=== PATIENT | male | born 1970 | race Caucasian/White ===

== ENCOUNTER 2024-05-10 10:18 | Inpatient (IN) | payer MEDICAID, SELFPAY ==
[2024-05-10] VITALS (33 sets, daily range): BP systolic 144–226; BP diastolic 65–102; PULSE 80–104; RESP 12–84; TEMP 38.1–38.6; O2SAT 85–100; BMI 35.4
--- NOTE | 2024-05-10 10:43 | PC.NURSE ---
Patient to er via ems from home with c/o generalized weakness. Currently patient lethargic, gcs 14, patient has labored breathing at 28bpm, 02sats 84% on RA, Dr. Gonzalez at bedside, new orders received.
--- NOTE | 2024-05-10 10:53 | EKG_ITS ---
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
--- NOTE | 2024-05-10 11:05 | EDNOTE_ITS ---
ED General RME/HPI General Chief complaint: General Adult/Misc Complain Stated complaint: WEAKNESS Time Seen by Provider: 05/10/24 10:43 Arrival date/time: 05/10/24 10:18 RME / HPI RME / HPI narrative: This section includes all my notes and documentations, including HPI, PE, MDM, Procedure Notes, and PLAN. Navarro Gonzalez MD HPI: 54 year old male with history of CVA, HFpEF 55-60% 04/2024, CAD s/p stent, hypertension, CAROLYN, liver cirrhosis presents to the ED BIBA from home for evaluation of weakness today. Per medics report, family stated patient was found sleeping on the floor this morning. On their arrival noted patient to be saturating 84% on room air and placed on oxygen. No other complaints reported by . No fevers, cough, abdominal pain, vomiting, diarrhea, or urinary symptoms. ROS: Cannot obtain from the patient due to current clinical condition. Physical Exam: General: Obtunded. Eyes: Conjunctivae and lids clear. EOMI. PERRL. ENT: No nasal congestion. Neck: Supple. Heart: RRR. Lungs: Decreased air movement, with wheezing and Rales. Abdomen: Soft. Skin: Warm and dry. Neuro: Obtunded. I reviewed EMS notes. I reviewed all diagnostic test results. At this point, diagnoses include sepsis, cellulitis, elevated troponin, ZENY, and hypertensive emergency. I discussed the case with our hospitalist. About the presentation and exam and diagnostics and treatments here. And need of further care in the hospital. Will accept the patient. Navarro Gonzalez MD Related Data Home Medications ?Medication ?Instructions ?Recorded ?Confirmed atorvastatin 40 mg tablet 40 mg PO HS 10/22/23 05/12/24 hydrocodone 10 mg-acetaminophen 1 tab PO Q4H 10/22/23 01/14/24 325 mg tablet ipratropium 20 mcg-albuterol 100 2 puff inhalation Q8HR PRN 10/22/23 05/12/24 mcg/actuation mist for inhalation Shortness Of Breath (Combivent Respimat) lorazepam 2 mg tablet 2 mg PO BID 10/22/23 05/12/24 losartan 100 mg tablet 100 mg PO DAILY 10/22/23 05/12/24 metoprolol succinate 100 mg 100 mg PO DAILY 10/22/23 05/12/24 tablet,extended release 24 hr pregabalin 150 mg capsule 150 mg PO TID 10/22/23 05/12/24 semaglutide 2 mg/dose (8 mg/3 mL) 2 mg subcut QWEEK 10/22/23 01/14/24 subcutaneous pen injector (Ozempic) morphine 15 mg tablet,extended 15 mg PO QDAY PRN Pain 01/14/24 05/12/24 release hydrocodone 10 mg-acetaminophen 1 tab PO 6 TIMES DAILY PRN Pain 05/11/24 05/11/24 325 mg tablet (Scale Score 7-10) hydrocodone 10 mg-acetaminophen tab 05/11/24 325 mg tablet spironolactone 50 mg tablet 50 mg PO BID 05/12/24 05/12/24 Previous Rx's ?Medication ?Instructions ?Recorded flash glucose scanning reader #1 ea 10/26/23 (FreeStyle Liana 2 [place]) flash glucose sensor (FreeStyle #1 ea 10/26/23 Liana 2 Sensor kit) insulin glargine 100 unit/mL 50 unit (0.5 mL) subcut BID #10 mL 10/26/23 subcutaneous solution (Lantus U-100 Insulin) sennosides 8.6 mg tablet (senna) 8.6 mg PO BID PRN constipation #30 10/26/23 tabs bumetanide 1 mg tablet 1 mg PO BID 30 days #7 tabs 01/17/24 insulin aspart U-100 100 unit/mL 1 sliding scale dose subcut 01/17/24 subcutaneous solution (Novolog USEASDIRECTD #10 mL U-100 Insulin aspart) metoclopramide HCl 5 mg tablet 5 mg PO Q6H gastroparesis 30 days 01/17/24 #120 tabs apixaban 5 mg tablet 5 mg PO BID 1 month #60 tabs 04/27/24 menthol 0.44 %-zinc oxide 20.6 % 1 applic topical QID PRN skin 04/27/24 topical ointment (Calmoseptine) irritation #113 grams Allergies Allergy/AdvReac Type Severity Reaction Status Date / Time ketorolac Allergy Severe TONGUE Verified 07/26/23 22:55 SWELLS UP Review of Systems Review of Systems Systems Reviewed: All systems reviewed, normal except as documented Past Medical History Past Medical History NEUROLOGIC: Positive Neurological Disorders, Cerebrovascular Accident, Transient Ischemic Attacks (TIA) and Willis's Palsy CARDIAC: Positive Cardiac Disorders, Myocardial Infarction, Coronary Artery Disease, Atherosclerotic Heart Disease, Hypercholesterolemia, Congestive Heart Failure, Deep Vein Thrombosis and Hypertension RESPIRATORY: Positive Asthma and Pulmonary Embolism GASTROINTESTINAL: Positive Gastrointestinal Disorders and Obesity GENITOURINARY: Positive Genitourinary Disorders and Kidney Stones MUSCULOSKELETAL: Positive Musculoskeletal Disorders and Degenerative Disk Disease ENDOCRINE: Positive Endocrine Disorders and Diabetes Mellitus Type 2 PSYCHO/SOCIAL: Positive Anxiety OTHER HISTORY: Positive Falls, Blood Transfusions, Blood Transfusion Reaction and Chicken Pox Family History FAMILY HISTORY: Positive Family Respiratory Disorders and Family Cardiac Disorders Surgical History SURGICAL: Positive Cardiac Surgery, Coronary Stent and Carotid Endarterectomy Social History SMOKING STATUS: Current every day smoker SECOND HAND EXPOSURE: No ([id number] x 4 yrs) SUBSTANCE USE: does not use ED Exam Narrative Physical exam: As noted in HPI Course Quality Measures Current suspected stage: sepsis Possible source: unknown Blood cultures ordered: completed in ED Antibiotic ordered: Yes Pertinent labs: 05/10/24 11:15 Lactic Acid 0.9 mMol/L (0.4-2.0) Procalcitonin 12.01 H ng/ml (0.0-0.49) sepsis Orders Category Date Time Status Bedside COVID-19 Antigen Test NOW Care 05/10/24 11:25 Completed Bedside COVID-19 Antigen Test NOW Care 05/10/24 11:32 Completed Bedside Influenza A&B Antigen Test NOW Care 05/10/24 11:25 Completed Bedside Influenza A&B Antigen Test NOW Care 05/10/24 11:32 Completed BiPAP / CPAP NOW Care 05/10/24 11:[address] Screening NOW Care 05/10/24 11:23 Completed Manager Brand Q4H START 00 Care 05/10/24 10:53 Completed EKG (ED ONLY) *Do not use* NOW Care 05/10/24 10:53 Completed Saline [Insert IV] NOW Care 05/10/24 11:13 Active Straight [In and Out Catheter] X1 Care 05/10/24 11:13 Completed Urinary Catheter NOW Care 05/10/24 16:[address] abdomen pelvis w con Stat Exams 05/10/24 11:[address] angio chest Stat Exams 05/10/24 11:[address] head/brain wo con Stat Exams 05/10/24 11:23 Completed EKG (ED Only) Stat Exams 05/10/24 10:53 Draft US gall bladder Stat Exams 05/10/24 16:08 Completed XR chest 1V portable Stat Exams 05/10/24 11:22 Completed ABG [Arterial Blood Gas] Stat Lab 05/10/24 12:26 Completed Ammonia Stat Lab 05/10/24 11:50 Completed BNP [B-Type Natriuretic Peptide] Stat Lab 05/10/24 11:15 Completed BNP [B-Type Natriuretic Peptide] Stat Lab 05/10/24 16:53 Completed Blood Culture (Lab) Stat Lab 05/10/24 11:50 Results CBC Stat Lab 05/10/24 11:15 Completed CMP [Comprehensive Metabolic Panel] Stat Lab 05/10/24 11:15 Completed CRP [C-Reactive Protein] Stat Lab 05/10/24 11:15 Completed Creatine Kinase Stat Lab 05/10/24 11:15 Completed D-Dimer Stat Lab 05/10/24 11:15 Completed Drug Screen,Urine Stat Lab 05/10/24 11:58 Completed ESR [Sed Rate (ESR)] Stat Lab 05/10/24 11:15 Completed Lactate (Lactic Acid) Stat Lab 05/10/24 11:15 Completed Magnesium Stat Lab 05/10/24 11:15 Completed Procalcitonin Stat Lab 05/10/24 11:15 Completed RSV [Respiratory Syncytial Virus Ag] Stat Lab 05/10/24 13:20 Completed Troponin I Stat Lab 05/10/24 11:15 Completed Troponin I Stat Lab 05/10/24 16:53 Completed UA [Urinalysis] Stat Lab 05/10/24 11:58 Completed Acetaminophen Ivpb [Ofirmev Inj] Med 05/10/24 12:06 Discontinued 1,000 mg in 100 ml IV X1 Acetaminophen Supp [Tylenol Supp] Med 05/10/24 11:13 Discontinued 650 mg NE X1 ONE Albuterol/Ipratr Rt Radha [Duoneb Rt Radha] Med 05/10/24 11:17 Discontinued 6 ml INH X1 ONE Furosemide Inj [Lasix Inj] Med 05/10/24 16:48 Discontinued 40 mg IVP X1 ONE Furosemide Inj [Lasix Inj] Med 05/10/24 16:09 Discontinued 80 mg IVP X1 ONE Furosemide Inj [Lasix Inj] Med 05/10/24 16:50 Discontinued 80 mg IVP X1 ONE Ketorolac Inj [Toradol Inj] Med 05/10/24 11:13 Discontinued 15 mg IVP X1 ONE Labetalol IV [Trandate IV] Med 05/10/24 16:16 Discontinued 20 mg IVP X1 ONE Magnesium Sulfate 2 GM Ivpb [Magnesium Sulfate Ivpb] Med 05/10/24 11:17 Discontinued 2 gm in 50 ml IV X1 Magnesium Sulfate 2 GM Ivpb [Magnesium Sulfate Ivpb] Med 05/10/24 12:30 Discontinued 2 gm in 50 ml IV X1 MethylPREDNISolone.* [SoluMEDROL Inj] Med 05/10/24 11:17 Discontinued 125 mg IVP X1 ONE Nicardipine/Ns 20Mg Ivpb [Cardene Ivpb] Med 05/10/24 13:35 Discontinued 20 mg in 200 ml IV 5 mg/hr Nitroglycerin Oint 2% [Nitro-paste Oint 2%] Med 05/10/24 12:15 Discontinued 2 inch TOP X1 ONE Sodium Chloride 0.9% 1000 ml [Ns] 1,000 ml Med 05/10/24 11:14 Discontinued IV 999 mls/hr cefTRIAXone/D5w 1gm IV premix [Rocephin/D5w 1gm IV Med 05/10/24 11:15 Discontinued premix] 50 ml IV X1 hydrALAZINE INJ [Apresoline Inj] Med 05/10/24 12:15 Discontinued 10 mg IV X1 ONE hydrALAZINE INJ [Apresoline Inj] Med 05/10/24 16:16 Discontinued 10 mg IV X1 ONE Oxygen Delivery NOW RT 05/10/24 10:53 Active Vital Signs Vital signs: Vital Signs Temperature 100.8 F H 05/10/24 10:50 Pulse Rate 100 05/10/24 10:50 Respiratory Rate 28 H 05/10/24 10:50 Blood Pressure 180/102 H 05/10/24 10:50 Pulse Oximetry (%) 100 05/10/24 10:50 Oxygen Delivery Method Oxy Mask 05/10/24 10:50 Oxygen Flow Rate 10 05/10/24 10:[address] [facility] Patient data External records reviewed:: [facility] previous records (I reviewed admission from through 04/28/2024) and EMS form Clinical information provided by:: patient and EMS Social determinants that could affect healthcare access:: none Patient has the following chronic illnesses:: CVA, HFpEF 55-60% 04/2024, CAD s/p stent, hypertension, CAROLYN, liver cirrhosis How is presenting disease/condition affected by chronic disease/condition?: e xacerbated by Evaluation data The following diagnostics were reviewed and interpreted by me:: EKG tracing(s) (My interpretation of the EKG is: Sinus rhythm (96 bpm) with nonspecific ST-T changes. Navarro Gonzalez MD) Lab and/or radiology exams considered but not ordered:: None Interpretation Summary: Ordering Physician: Navarro Gonzalez MD Date of Service: 05/10/24 Procedure(s): XR chest 1V portable Accession Number(s): [id number] cc: Navarro Gonzalez MD; Julio Beebe MD; NO PRIMARY/FAMILY,PHYSICIAN~ Examination: AP chest single view Technique one AP portable semiupright chest single view Exam date and time: May 10, 2024 1141 hours Comparison April 24, 2024 INDICATIONS: Shortness of breath today. FINDINGS: Mild to moderate CHF Mild to moderate enlargement cardiac contour Prominent vascular congestion with perihilar basilar edema IMPRESSION: Mild to moderate CHF Dictated By: Julio Beebe MD Signed By: <Electronically signed by Julio Beebe MD in OV> 05/10/24 1158 ===== Ordering Physician: Navarro Gonzalez MD Date of Service: 05/10/24 Procedure(s): CT abdomen pelvis w con Accession Number(s): [id number] cc: Navarro Gonzalez MD; Julio Beebe MD; NO PRIMARY/FAMILY,PHYSICIAN~ Examination: CT abdomen with intravenous contrast CT pelvis with intravenous contrast 2-D coronal reconstructions 2-D sagittal reconstructions Date and time of exam:May 10, 2024 1519 hours INDICATIONS: Onset abdominal pain today. CTDI: vol (mGy) 27.2 DLP: (mGycm) 1718 Technique: Multiple axial sections of the abdomen and pelvis have been obtained. 64 slice high-resolution scanner used. 3 mm axial sections have been obtained, post intravenous injection 60 cc Isovue-300 2-D sagittal coronal reconstructions Low dose protocols, adjustment MA KV according to patient size, iterative reconstruction techniques FINDINGS: There are no focal liver lesions or biliary tract dilatation, liver is mildly irregular in contour Gallbladder wall appears mildly thickened Spleen is not enlarged No pancreatic mass No renal or ureteral calculi, no hydronephrosis Aorta normal size No pericecal inflammatory change No bowel obstruction or diverticulitis Urinary bladder intact Severe osteopenia Extensive air density in the soft tissue left groin extending into the anterior and lateral left thigh, clinical correlation advised Mild anasarca IMPRESSION: Recommend hepatobiliary sonography follow-up to exclude cholecystitis Suspect primary hepatocellular disease, mild anasarca No renal or ureteral calculi, no hydronephrosis No CT findings of appendicitis bowel obstruction or diverticulitis Extensive air densities in the soft tissue left groin extending into the anterior and lateral upper thigh, clinical correlation advised Dictated By: Julio Beebe MD Signed By: <Electronically signed by Julio Beebe MD in OV> 05/10/24 1604 = ==== Ordering Physician: Navarro Gonzalez MD Date of Service: 05/10/24 Procedure(s): CT angio chest Accession Number(s): [id number] cc: Navarro Gonzalez MD; Julio Beebe MD; NO PRIMARY/FAMILY,PHYSICIAN~ Examination: CTA chest with intravenous contrast 2-D reconstructions 3-D reconstructions, vascular Date and time of exam: May 10, 2024 at 1519 hours INDICATIONS: Onset shortness of breath chest pain today, clinical diagnosis pulmonary embolus CTDI: vol (mGy) 18.7 DLP: (mGycm) 750 Technique: Multiple axial sections of the thorax have been obtained. 3 mm slice thickness, from below the hemidiaphragms to above the apices of the lungs. Mediastinal and lung density settings have been obtained. 2-D sagittal and coronal reconstructions. 3-D angiographic renderings, 3-D volume renderings, 3D post processing, vascular maximum intensity projections obtained. Contrast administered is 60 cc Isovue-300. Low dose protocols were performed. One or more of the following dose reduction techniques were used; automated exposure control, adjustment of the mA and/or KV according to patient size, use of iterative reconstruction technique. Findings: 27 mm left thyroid nodule No thoracic aortic aneurysm dilatation Main pulmonary artery segment measures 39 mm Pulmonary artery opacification is not optimal No mediastinal lymphadenopathy Soft areas of parenchymal opacity throughout both lungs consistent with pneumonia Mild to moderate enlargement cardiac contour Pericardial effusion measuring up to 13 mm Prominent vascular congestion Small right minimal left pleural fluid No visualized liver or splenic lesion Gallbladder wall appears mildly thickened No pancreatic mass IMPRESSION: 27 mm left thyroid nodule, recommend thyroid sonography follow-up Pulmonary artery opacification is quite poor, in part related to the reduced contrast dose, no gross pulmonary artery emboli Mild CHF Recommend hepatobiliary sonography to exclude cholecystitis Dictated By: Julio Beebe MD Signed By: <Electronically signed by Julio Beebe MD in OV> 05/10/24 1558 ===== Ordering Physician: Navarro Gonzalez MD Date of Service: 05/10/24 Procedure(s): CT head/brain wo [facility] Accession Number(s): [id number] cc: Navarro Gonzalez MD; Julio Beebe MD; NO PRIMARY/FAMILY,PHYSICIAN~ Examination: CT brain head without contrast. 2-D sagittal coronal reconstructions Date and time of exam:May 10, 2024 1512 hours Comparison July 20, 2023 INDICATIONS: Altered mental status today CTDI: vol (mGy):87.3 DLP: (mGycm):1813 Technique: Multiple CT axial sections of the brain have been obtained, 5 mm slice thickness. Contrast has not been administered. 2-D sagittal, coronal reconstructions have been obtained Low dose protocols were performed. One or more of the following dose reduction techniques were used; automated exposure control, adjustment of the mA and/or KV according to patient size, use of iterative reconstruction technique. Findings: No significant ventricular enlargement. Intra-axial or extra-axial hemorrhage density is not seen. No mass effect or midline shift Basal cisterns are not remarkable. Fourth ventricle is midline. Cranial vault intact. Impression: Negative for acute hemorrhage, mass effect or midline shift Clinical correlation advised and follow-up accordingly Dictated By: Julio Beebe MD Signed By: <Electronically signed by Julio Beebe MD in OV> 05/10/24 1552 ===== Medications Medications considered but not ordered:: None Medication administrations:: Medication Administration History Acetaminophen (Acetaminophen 325 Mg Tablet) 650 mg PO Q6H PRN PRN Reason: Fever >100.3 or pain(1-3) Stop: 06/09/24 17:37 Last Admin: 05/14/24 11:53 Dose: 650 mg Documented By: HAYLEE Hydrocodone Bitart/Acetaminophen (Hydrocodone/Apap 10/325 Tab) 1 tab PO Q6HR PRN PRN Reason: Pain (Scale Score 4-6) Stop: 05/19/24 12:00 Last Admin: 05/15/24 18:00 Dose: 1 tab Documented By: Admin: 05/15/24 06:01 Dose: 1 tab Documented By: Admin: 05/14/24 20:25 Dose: 1 tab Documented By: Admin: 05/14/24 14:05 Dose: 1 tab Documented By: HAYLEE Amlodipine Besylate (Amlodipine Besylate 5 Mg Tablet) 5 mg PO QDAY [facility] Stop: 06/11/24 08:59 Last Admin: 05/15/24 09:14 Dose: 5 mg Documented By: Admin: 05/14/24 08:06 Dose: 5 mg Documented By: Admin: 05/13/24 08:56 Dose: 5 mg Documented By: Admin: 05/12/24 10:02 Dose: 5 mg Documented By: YAEL Apixaban (Apixaban 2.5 Mg Tablet) 5 mg PO BID [facility] Stop: 06/01/24 13:59 Last Admin: 05/15/24 21:56 Dose: 5 mg Documented By: Admin: 05/15/24 09:59 Dose: 5 mg Documented By: Admin: 05/14/24 21:24 Dose: 5 mg Documented By: Admin: 05/14/24 08:05 Dose: 5 mg Documented By: Admin: 05/13/24 21:20 Dose: 5 mg Documented By: Admin: 05/13/24 08:56 Dose: 5 mg Documented By: Admin: 05/12/24 21:40 Dose: 5 mg Documented By: Admin: 05/12/24 10:08 Dose: Not Given Documented By: YAEL Non-Admin Reason: Patient Refused Admin: 05/11/24 21:30 Dose: 5 mg Documented By: Admin: 05/11/24 13:57 Dose: 5 mg Documented By: MGD Atorvastatin Calcium (Atorvastatin Calcium 20 Mg Tablet) 40 mg PO HS RINA Stop: 06/11/24 20:59 Last Admin: 05/15/24 21:56 Dose: 40 mg Documented By: Admin: 05/14/24 21:24 Dose: 40 mg Documented By: Admin: 05/13/24 21:21 Dose: 40 mg Documented By: Admin: 05/12/24 21:41 Dose: 40 mg Documented By: ALENA Bumetanide (Bumetanide Inj 0.25 Mg/Ml Vial 4 Ml) 2 mg IVP BID RINA Stop: 06/11/24 14:59 Last Admin: 05/14/24 09:46 Dose: 2 mg Documented By: Admin: 05/13/24 08:56 Dose: 2 mg Documented By: Admin: 05/12/24 23:15 Dose: 2 mg Documented By: ALENA Comments: pt required new IV and wAS a hardstick Admin: 05/12/24 15:33 Dose: 2 mg Documented By: YAEL Dextrose (Dextrose 50%-Water Inj 50 Ml Syringe) 25 ml IV Q15MIN PRN PRN Reason: BG 50-70 responsive npo pt Stop: 06/09/24 19:29 Last Admin: 05/15/24 22:15 Dose: 25 ml Documented By: TRINI Dextrose (Dextrose 50%-Water Inj 50 Ml Syringe) 50 ml IV Q15MIN PRN PRN Reason: BG <50 OR BG <70 & pt unresponsive Stop: 06/09/24 19:29 Glucagon (Glucagon Inj 1 Mg Vial) 1 mg IM Q15MIN PRN PRN Reason: BG <70, and no IV access Hydralazine HCl (Hydralazine Inj 20 Mg/Ml Vial) 10 mg IV Q6H PRN PRN Reason: High blood pressure Stop: 06/09/24 19:10 Last Admin: 05/12/24 11:54 Dose: 10 mg Documented By: Admin: 05/11/24 05:52 Dose: 10 mg Documented By: ZJulito Piperacillin/Tazobactam/Dextrose (Zosyn) 50 mls @ 12.5 mls/hr IV Q8HR RINA; Protocol Stop: 05/21/24 13:59 Last Admin: 05/15/24 21:57 Dose: 12.5 mls/hr Documented By: Infusion: 05/15/24 17:16 Dose: Infused Documented By: Admin: 05/15/24 13:16 Dose: 12.5 mls/hr Documented By: Infusion: 05/15/24 09:45 Dose: Infused Documented By: Admin: 05/15/24 05:45 Dose: 12.5 mls/hr Documented By: Infusion: 05/15/24 02:52 Dose: Infused Documented By: Admin: 05/14/24 22:52 Dose: 12.5 mls/hr Documented By: Infusion: 05/14/24 18:05 Dose: Infused Documented By: Admin: 05/14/24 14:05 Dose: 12.5 mls/hr Documented By: BA Bumetanide 20 mg/ IV (Miscellaneous Supplies) 80 mls @ 8 mls/hr IV .Q10H RINA Stop: 05/16/24 09:59 Last Admin: 05/15/24 17:26 Dose: 2 mg/hr, 8 mls/hr Documented By: Infusion: 05/15/24 17:26 Dose: Infused Documented By: Admin: 05/15/24 09:11 Dose: 2 mg/hr, 8 mls/hr Documented By: Infusion: 05/15/24 07:18 Dose: Infused Documented By: Admin: 05/14/24 21:18 Dose: 2 mg/hr, 8 mls/hr Documented By: Infusion: 05/14/24 20:49 Dose: Infused Documented By: Admin: 05/14/24 10:49 Dose: 2 mg/hr, 8 mls/hr Documented By: JESSIE Insulin Glargine (Insulin Glargine (Lantus) 5 Unit/0.05 Ml (Per 5 Units)) 80 unit SC HS RINA Stop: 06/14/24 20:59 Last Admin: 05/15/24 21:59 Dose: Not Given Documented By: TRINI Non-Admin Reason: Blood sugar 60 Insulin Human Lispro (Insulin Lispro (Admelog) 1 Unit/0.01 Ml Unit) 0 unit SC AC RINA; Protocol Stop: 06/12/24 08:59 Last Admin: 05/15/24 17:31 Dose: Not Given Documented By: HAYLEE Non-Admin Reason: Per Protocol Admin: 05/15/24 11:52 Dose: 4 unit Documented By: HAYLEE Co-signed By: Admin: 05/15/24 08:14 Dose: 10 unit Documented By: HAYLEE Co-signed By: MILAN Admin: 05/14/24 17:22 Dose: 8 unit Documented By: HAYLEE Co-signed By: SP Admin: 05/14/24 11:53 Dose: 4 unit Documented By: HAYLEE Co-signed By: TEJAL Admin: 05/14/24 08:00 Dose: 4 unit Documented By: JESSIE Co-signed By: JHONY Admin: 05/13/24 17:32 Dose: 4 unit Documented By: JESSIE Co-signed By: JORGE Admin: 05/13/24 11:38 Dose: Not Given Documented By: JESSIE Non-Admin Reason: Per Protocol Admin: 05/13/24 09:08 Dose: 4 unit Documented By: JESSIE Co-signed By: JHONY Insulin Human Lispro (Insulin Lispro (Admelog) 1 Unit/0.01 Ml Unit) 12 unit SC AC RINA Stop: 06/14/24 11:29 Last Admin: 05/15/24 18:08 Dose: Not Given Documented By: HAYLEE Non-Admin Reason: Other, see note Comments: ok to hold per for bg of 75 Admin: 05/15/24 11:52 Dose: 12 unit Documented By: HAYLEE Co-signed By: Metoprolol Succinate (Metoprolol Succinate Xl 25 Mg Tabcr) 100 mg PO QDAY [facility] Stop: 06/09/24 18:59 Last Admin: 05/15/24 09:13 Dose: 100 mg Documented By: Admin: 05/14/24 08:06 Dose: 100 mg Documented By: Admin: 05/13/24 08:55 Dose: 100 mg Documented By: Admin: 05/12/24 08:12 Dose: 100 mg Documented By: Admin: 05/11/24 11:06 Dose: 100 mg Documented By: GENA Comments: administered late pt in OR for procedure Admin: 05/10/24 19:29 Dose: Not Given Documented By: SF Non-Admin Reason: NPO Morphine Sulfate (Morphine Sulf Inj 10 Mg/Ml Vial) 3 mg IVP Q8HR PRN PRN Reason: Pain 7-10 Stop: 05/16/24 12:22 Last Admin: 05/15/24 23:09 Dose: 3 mg Documented By: Admin: 05/15/24 03:35 Dose: 3 mg Documented By: Admin: 05/14/24 17:22 Dose: 3 mg Documented By: HAYLEE Ondansetron HCl (Ondansetron Inj 2 Mg/Ml Inj 2 Ml) 4 mg IV Q6H PRN; Protocol PRN Reason: NAUSEA OR VOMITING Stop: 06/09/24 17:37 Pharmacy Consult (Vancomycin Pharmacy To Dose 1 Each Each) 1 each IV QDAY PRN PRN Reason: PROTOCOL Stop: 06/11/24 11:19 Pregabalin (Pregabalin 75 Mg Capsule) 150 mg PO TID [facility] Stop: 06/11/24 21:59 Last Admin: 05/15/24 22:27 Dose: 150 mg Documented By: Admin: 05/15/24 13:15 Dose: 150 mg Documented By: Admin: 05/15/24 05:45 Dose: 150 mg Documented By: Admin: 05/14/24 21:33 Dose: 150 mg Documented By: Admin: 05/14/24 14:05 Dose: 150 mg Documented By: Admin: 05/14/24 05:32 Dose: 150 mg Documented By: Admin: 05/13/24 21:22 Dose: 150 mg Documented By: Admin: 05/13/24 13:31 Dose: 150 mg Documented By: Admin: 05/13/24 05:36 Dose: 150 mg Documented By: Admin: 05/12/24 21:43 Dose: 150 mg Documented By: ALENA Sennosides (Senna Tablet) 1 tab PO QDAY RINA; Protocol Stop: 06/12/24 14:44 Last Admin: 05/15/24 09:14 Dose: 1 tab Documented By: Admin: 05/14/24 08:06 Dose: 1 tab Documented By: Admin: 05/13/24 15:31 Dose: 1 tab Documented By: DA Discontinued Medications Acetaminophen (Acetaminophen Supp 650 Mg Supp) 650 mg NE X1 ONE Stop: 05/10/24 11:14 Last Admin: 05/10/24 12:44 Dose: Not Given Documented By: EF Non-Admin Reason: Cancelled by Provider Acetaminophen (Acetaminophen 325 Mg Tablet) 650 mg PO Q6H PRN PRN Reason: Fever >100.3 or pain Stop: 06/09/24 17:37 Acetaminophen (Acetaminophen Supp 650 Mg Supp) 650 mg NE Q6HR PRN; Protocol PRN Reason: Fever > 100.3 Stop: 06/09/24 19:14 Hydrocodone Bitart/Acetaminophen (Hydrocodone/Apap 5/325 Tablet) 1 tab PO Q4HR PRN PRN Reason: PAIN SCALE 4-10(Mod-Sev Stop: 05/16/24 11:26 Hydrocodone Bitart/Acetaminophen (Hydrocodone/Apap 5/325 Tablet) 1 tab PO Q4HR PRN PRN Reason: PAIN SCALE 4-6 (Moderate Stop: 05/16/24 11:26 Hydrocodone Bitart/Acetaminophen (Hydrocodone/Apap 5/325 Tablet) 1 tab PO X1 ONE Stop: 05/11/24 21:07 Last Admin: 05/11/24 21:30 Dose: 1 tab Documented By: ELHAM Hydrocodone Bitart/Acetaminophen (Hydrocodone/Apap 5/325 Tablet) 1 tab PO X1 ONE Stop: 05/12/24 04:21 Last Admin: 05/12/24 04:37 Dose: 1 tab Documented By: ELHAM Hydrocodone Bitart/Acetaminophen (Hydrocodone/Apap 5/325 Tablet) 1 tab PO X1 ONE Stop: 05/13/24 21:02 Last Admin: 05/13/24 21:21 Dose: 1 tab Documented By: ALENA Hydrocodone Bitart/Acetaminophen (Hydrocodone/Apap 10/325 Tab) 1 tab PO 6 TIMES DAILY PRN PRN Reason: Pain (Scale Score 4-6) Stop: 05/19/24 12:00 Albuterol/Ipratropium (Albuterol/Ipratropium (Duoneb) Rt Radha 3 Ml Nebu) 6 ml INH X1 ONE Stop: 05/10/24 11:18 Last Admin: 05/10/24 12:36 Dose: 6 ml Documented By: GLYNN Dextrose (Dextrose 50%-Water Inj 50 Ml Syringe) 25 ml IV Q15MIN PRN PRN Reason: BG 50-70 responsive npo pt Stop: 06/09/24 19:01 Dextrose (Dextrose 50%-Water Inj 50 Ml Syringe) 50 ml IV Q15MIN PRN PRN Reason: BG <50 OR BG <70 & pt unresponsive Stop: 06/09/24 19:01 Esmolol HCl (Esmolol Inj 10 Mg/Ml Vial 10 Ml) Confirm Administered Dose 100 mg .ROUTE .STK-MED ONE Stop: 05/11/24 12:20 Fentanyl Citrate (Fentanyl Cit Inj 50 Mcg/Ml Amp 2ml) Confirm Administered Dose 100 mcg .ROUTE .STK-MED ONE Stop: 05/11/24 08:41 Fentanyl Citrate (Fentanyl Cit Inj 50 Mcg/Ml Amp 2ml) Confirm Administered Dose 100 mcg .ROUTE .STK-MED ONE Stop: 05/11/24 09:13 Fentanyl Citrate (Fentanyl Cit Inj 50 Mcg/Ml Amp 2ml) 50 mcg IV Q5MIN PRN PRN Reason: PAIN SCALE 4-10(Mod-Sev Stop: 05/11/24 11:29 Furosemide (Furosemide Inj 10 Mg/Ml 4ml Vial) 80 mg IVP X1 ONE Stop: 05/10/24 16:10 Last Admin: 05/10/24 17:29 Dose: Not Given Documented By: SHEREE Non-Admin Reason: Cancelled by Provider Furosemide (Furosemide Inj 10 Mg/Ml 4ml Vial) 40 mg IVP X1 ONE Stop: 05/10/24 16:49 Last Admin: 05/10/24 16:54 Dose: Not Given Documented By: SHEREE Non-Admin Reason: Cancelled by Provider Furosemide (Furosemide Inj 10 Mg/Ml 4ml Vial) 80 mg IVP X1 ONE Stop: 05/10/24 16:51 Last Admin: 05/10/24 17:12 Dose: 80 mg Documented By: SHEREE Glucagon (Glucagon Inj 1 Mg Vial) 1 mg IM Q15MIN PRN PRN Reason: BG <70, and no IV access Hydralazine HCl (Hydralazine Inj 20 Mg/Ml Vial) 10 mg IV X1 ONE Stop: 05/10/24 12:16 Last Admin: 05/10/24 12:27 Dose: 10 mg Documented By: EF Hydralazine HCl (Hydralazine Inj 20 Mg/Ml Vial) 10 mg IV X1 ONE Stop: 05/10/24 16:17 Last Admin: 05/10/24 17:11 Dose: 10 mg Documented By: SHEREE Hydralazine HCl (Hydralazine Inj 20 Mg/Ml Vial) 10 mg IV X1 ONE Stop: 05/10/24 19:01 Last Admin: 05/10/24 19:26 Dose: 10 mg Documented By: WES Sodium Chloride (Ns) 1,000 mls @ 999 mls/hr IV .Q1H1M ONE Stop: 05/10/24 12:14 Last Infusion: 05/10/24 12:30 Dose: Infused Documented By: Admin: 05/10/24 11:30 Dose: 999 mls/hr Documented By: EF Ceftriaxone Sodium/Dextrose (Rocephin/D5w 1gm Iv Premix) 50 mls @ 100 mls/hr IV X1 ONE Stop: 05/10/24 11:44 Last Infusion: 05/10/24 12:32 Dose: Infused Documented By: Admin: 05/10/24 11:45 Dose: 100 mls/hr Documented By: EF Magnesium Sulfate (Magnesium Sulfate Ivpb) 2 gm in 50 mls @ 25 mls/hr IV X1 ONE Stop: 05/10/24 13:16 Last Admin: 05/10/24 14:07 Dose: Not Given Documented By: MARCIE Non-Admin Reason: Duplicate Medication on eMAR Acetaminophen (Ofirmev Inj) 1,000 mg in 100 mls @ 250 mls/hr IV X1 ONE Stop: 05/10/24 12:29 Last Infusion: 05/10/24 13:14 Dose: Infused Documented By: Admin: 05/10/24 12:43 Dose: 250 mls/hr Documented By: EF Magnesium Sulfate (Magnesium Sulfate Ivpb) 2 gm in 50 mls @ 25 mls/hr IV X1 ONE Stop: 05/10/24 14:29 Last Infusion: 05/10/24 14:40 Dose: Infused Documented By: Admin: 05/10/24 12:37 Dose: 25 mls/hr Documented By: EF Nicardipine/Sodium Chloride (Cardene Ivpb) 20 mg in 200 mls @ 50 mls/hr IV .Q4H PRN; Protocol PRN Reason: PER PROTOCOL Stop: 06/09/24 13:34 Last Titration: 05/10/24 16:19 Dose: 0 mg/hr, 0 mls/hr Documented By: Titration: 05/10/24 16:13 Dose: 15 mg/hr, 150 mls/hr Documented By: Titration: 05/10/24 15:58 Dose: 15 mg/hr, 150 mls/hr Documented By: Admin: 05/10/24 15:43 Dose: 15 mg/hr, 150 mls/hr Documented By: Titration: 05/10/24 15:28 Dose: Infused Documented By: Titration: 05/10/24 15:13 Dose: 15 mg/hr, 150 mls/hr Documented By: Titration: 05/10/24 14:58 Dose: 15 mg/hr, 150 mls/hr Documented By: Titration: 05/10/24 14:43 Dose: 15 mg/hr, 150 mls/hr Documented By: Titration: 05/10/24 14:28 Dose: 15 mg/hr, 150 mls/hr Documented By: Titration: 05/10/24 14:23 Dose: 15 mg/hr, 150 mls/hr Documented By: Titration: 05/10/24 14:18 Dose: 12.5 mg/hr, 125 mls/hr Documented By: Titration: 05/10/24 14:13 Dose: 10 mg/hr, 100 mls/hr Documented By: Titration: 05/10/24 14:07 Dose: 7.5 mg/hr, 75 mls/hr Documented By: Admin: 05/10/24 14:02 Dose: 5 mg/hr, 50 mls/hr Documented By: BC Piperacillin/Tazobactam/Dextrose (Zosyn) 50 mls @ 12.5 mls/hr IV Q8HR [facility] Stop: 05/17/24 21:59 Last Admin: 05/14/24 05:32 Dose: 12.5 mls/hr Documented By: Infusion: 05/14/24 01:22 Dose: Infused Documented By: Admin: 05/13/24 21:22 Dose: 12.5 mls/hr Documented By: Infusion: 05/13/24 17:31 Dose: Infused Documented By: Admin: 05/13/24 13:31 Dose: 12.5 mls/hr Documented By: Infusion: 05/13/24 09:40 Dose: Infused Documented By: Admin: 05/13/24 05:40 Dose: 12.5 mls/hr Documented By: Infusion: 05/13/24 03:19 Dose: Infused Documented By: Admin: 05/12/24 23:19 Dose: 12.5 mls/hr Documented By: ALENA Comments: pt required new IV and wAS a hardstick Infusion: 05/12/24 19:01 Dose: Infused Documented By: Admin: 05/12/24 15:01 Dose: 12.5 mls/hr Documented By: Infusion: 05/12/24 09:05 Dose: Infused Documented By: Admin: 05/12/24 05:05 Dose: 12.5 mls/hr Documented By: Infusion: 05/12/24 01:32 Dose: Infused Documented By: Admin: 05/11/24 21:32 Dose: 12.5 mls/hr Documented By: Infusion: 05/11/24 17:57 Dose: Infused Documented By: Admin: 05/11/24 13:57 Dose: 12.5 mls/hr Documented By: Infusion: 05/11/24 09:00 Dose: Infused Documented By: Admin: 05/11/24 05:00 Dose: 12.5 mls/hr Documented By: Admin: 05/10/24 21:31 Dose: Not Given Documented By: SF Non-Admin Reason: See IV Spreadsheet Piperacillin/Tazobactam/Dextrose (Zosyn) 50 mls @ 100 mls/hr IV X1 ONE Stop: 05/10/24 18:59 Last Infusion: 05/10/24 19:23 Dose: Infused Documented By: Admin: 05/10/24 18:51 Dose: 100 mls/hr Documented By: EF Vancomycin/Sodium Chloride (Vancomycin/Ns 1 Gm Ivpb) 200 mls @ 120 mls/hr IV 1000,2200 RINA Stop: 05/17/24 18:29 Last Infusion: 05/10/24 21:53 Dose: Infused Documented By: Admin: 05/10/24 19:26 Dose: 120 mls/hr Documented By: WES Promethazine HCl 12.5 mg/ (Sodium Chloride) 50.5 mls @ 2.5 mls/min IV X1 PRN PRN Reason: NAUSEA OR VOMITING Sodium Chloride (Ns) 1,000 mls @ 999 mls/hr IV .Q1H1M ONE Stop: 05/12/24 09:32 Last Admin: 05/12/24 10:02 Dose: 999 mls/hr Documented By: YAEL Vancomycin/Sodium Chloride (Vancomycin/Ns 1 Gm Ivpb) 200 mls @ 120 mls/hr IV Q12H [facility]; Protocol Stop: 05/19/24 21:59 Last Infusion: 05/13/24 22:00 Dose: 0 mls/hr Documented By: Admin: 05/13/24 21:25 Dose: 120 mls/hr Documented By: Infusion: 05/13/24 12:15 Dose: Infused Documented By: Admin: 05/13/24 10:34 Dose: 120 mls/hr Documented By: Infusion: 05/13/24 01:01 Dose: Infused Documented By: Admin: 05/12/24 23:20 Dose: 120 mls/hr Documented By: ALENA Comments: pt required new IV and wAS a hardstick Vancomycin HCl/Dextrose (Vancomycin/D5w 1,250 Mg Ivpb) 250 mls @ 120 mls/hr IV X1 ONE Stop: 05/12/24 13:34 Last Admin: 05/12/24 11:54 Dose: 120 mls/hr Documented By: YAEL Bumetanide 20 mg/ IV (Miscellaneous Supplies) 80 mls @ 8 mls/hr IV .Q10H ONE Stop: 05/13/24 21:16 Last Admin: 05/13/24 12:26 Dose: 2 mg/hr, 8 mls/hr Documented By: JESSIE Insulin Glargine (Insulin Glargine (Lantus) 5 Unit/0.05 Ml (Per 5 Units)) 25 unit SC QDAY RINA Stop: 06/10/24 08:59 Last Admin: 05/11/24 11:05 Dose: 25 unit Documented By: GENA Co-signed By: IS Insulin Glargine (Insulin Glargine (Lantus) 5 Unit/0.05 Ml (Per 5 Units)) 40 unit SC QDAY [facility] Stop: 06/11/24 08:59 Last Admin: 05/12/24 08:13 Dose: 40 unit Documented By: YAEL Co-signed By: SARAHI Insulin Glargine (Insulin Glargine (Lantus) 5 Unit/0.05 Ml (Per 5 Units)) 50 unit SC QDAY [facility] Stop: 06/11/24 11:29 Insulin Glargine (Insulin Glargine (Lantus) 5 Unit/0.05 Ml (Per 5 Units)) 10 unit SC X1 ONE Stop: 05/12/24 11:22 Last Admin: 05/12/24 11:37 Dose: 10 unit Documented By: YAEL Co-signed By: DA Insulin Glargine (Insulin Glargine (Lantus) 5 Unit/0.05 Ml (Per 5 Units)) 50 unit SC QDAY [facility] Stop: 06/12/24 09:29 Insulin Glargine (Insulin Glargine (Lantus) 5 Unit/0.05 Ml (Per 5 Units)) 70 unit SC [facility] Stop: 06/12/24 20:59 Last Admin: 05/13/24 21:21 Dose: 70 unit Documented By: CMC Co-signed By: BR Insulin Glargine (Insulin Glargine (Lantus) 5 Unit/0.05 Ml (Per 5 Units)) 72 unit SC [facility] Stop: 06/13/24 20:59 Last Admin: 05/14/24 21:41 Dose: 72 unit Documented By: CCT Co-signed By: CP Insulin Human Lispro (Insulin Lispro (Admelog) 1 Unit/0.01 Ml Unit) 0 unit SC [facility]; Protocol Stop: 06/09/24 20:59 Last Admin: 05/12/24 08:13 Dose: 10 unit Documented By: YAEL Co-signed By: SARAHI Admin: 05/11/24 21:42 Dose: 10 unit Documented By: ELHAM Co-signed By: Admin: 05/11/24 17:05 Dose: 10 unit Documented By: NOVA Co-signed By: JORGE Admin: 05/11/24 12:30 Dose: 8 unit Documented By: NOVA Co-signed By: JORGE Admin: 05/11/24 07:41 Dose: 10 unit Documented By: NOVA Co-signed By: MELONY Admin: 05/10/24 21:31 Dose: 10 unit Documented By: WES Co-signed By: GISELE Insulin Human Lispro (Insulin Lispro (Admelog) 1 Unit/0.01 Ml Unit) 0 unit SC [facility]; Protocol Stop: 06/09/24 20:59 Last Admin: 05/13/24 11:00 Dose: Not Given Documented By: JESSIE Non-Admin Reason: Discontinued Admin: 05/12/24 21:41 Dose: 8 unit Documented By: ALENA Co-signed By: LITO Admin: 05/12/24 17:44 Dose: 10 unit Documented By: YAEL Co-signed By: JORGE Admin: 05/12/24 11:38 Dose: 16 unit Documented By: YAEL Co-signed By: JESSIE Insulin Human Lispro (Insulin Lispro (Admelog) 1 Unit/0.01 Ml Unit) 7 unit SC AC RINA Stop: 06/12/24 11:29 Last Admin: 05/14/24 08:14 Dose: Not Given Documented By: JESSIE Non-Admin Reason: Discontinued Admin: 05/13/24 17:32 Dose: 7 unit Documented By: JESSIE Co-signed By: JORGE Admin: 05/13/24 11:38 Dose: Not Given Documented By: JESSIE Non-Admin Reason: Per Protocol Insulin Human Lispro (Insulin Lispro (Admelog) 1 Unit/0.01 Ml Unit) 0 unit SC AC [facility]; Protocol Stop: 06/12/24 11:29 Insulin Human Lispro (Insulin Lispro (Admelog) 1 Unit/0.01 Ml Unit) 8 unit SC AC RINA Stop: 06/13/24 11:29 Last Admin: 05/15/24 08:15 Dose: 8 unit Documented By: HAYLEE Co-signed By: MILAN Admin: 05/14/24 17:22 Dose: 8 unit Documented By: HAYLEE Co-signed By: SP Admin: 05/14/24 11:47 Dose: Not Given Documented By: HAYLEE Non-Admin Reason: Other, see note Comments: Per Dr. Kerwin nelson to hold for bg 132 Insulin Human Regular (Insulin Hum Regular 1 Unit/0.01 Ml (Per Unit)) 0 unit SC ACHS RINA; Protocol Stop: 06/09/24 20:59 Ketorolac Tromethamine (Ketorolac Inj 30 Mg/Ml Vial) 15 mg IVP X1 ONE Stop: 05/10/24 11:14 Last Admin: 05/10/24 11:29 Dose: Not Given Documented By: EF Non-Admin Reason: Allergy Labetalol HCl (Labetalol Inj 5 Mg/Ml Vial 20 Ml) 20 mg IVP X1 ONE Stop: 05/10/24 16:17 Last Admin: 05/10/24 17:11 Dose: 20 mg Documented By: KM Labetalol HCl (Labetalol Inj 5 Mg/Ml Vial 20 Ml) 10 mg IVP Q6H PRN PRN Reason: High blood pressure Stop: 06/09/24 19:10 Last Admin: 05/10/24 21:58 Dose: 10 mg Documented By: SF Labetalol HCl (Labetalol Inj 5 Mg/Ml Vial 20 Ml) 10 mg IVP X1 ONE Stop: 05/10/24 22:53 Last Admin: 05/10/24 23:02 Dose: 10 mg Documented By: ZP Labetalol HCl (Labetalol Inj 5 Mg/Ml Vial 20 Ml) Confirm Administered Dose 100 mg .ROUTE .STK-MED ONE Stop: 05/11/24 09:25 Lidocaine HCl (Lidocaine Inj Pf 2% 5 Ml Vial) Confirm Administered Dose 5 ml .ROUTE .STK-MED ONE Stop: 05/11/24 08:41 Methylprednisolone Sodium Succinate (Methylprednisolone Sod Succ 62.5 Mg/Ml 2ml Vial) 125 mg IVP X1 ONE Stop: 05/10/24 11:18 Last Admin: 05/10/24 11:46 Dose: 125 mg Documented By: EF Metoclopramide HCl (Metoclopramide Inj 5 Mg/Ml Vial 2 Ml) Confirm Administered Dose 10 mg .ROUTE .STK-MED ONE Stop: 05/11/24 09:06 Metoprolol Tartrate (Metoprolol Tartrate Inj 1 Mg/Ml Amp 5 Ml) 1 mg IVP Q5MIN PRN PRN Reason: TACHYCARDIA Stop: 05/11/24 11:30 Midazolam HCl (Midazolam Inj 1 Mg/Ml Vial 2 Ml) Confirm Administered Dose 2 mg .ROUTE .STK-MED ONE Stop: 05/11/24 08:41 Midazolam HCl (Midazolam Inj 1 Mg/Ml Vial 2 Ml) 1 mg IV Q5MIN PRN PRN Reason: ANXIETY Stop: 05/12/24 09:27 Morphine Sulfate (Morphine Sulf Inj 10 Mg/Ml Vial) 1 mg IV Q4HR PRN PRN Reason: PAIN SCALE 7-10 (Severe Stop: 05/16/24 12:06 Morphine Sulfate (Morphine Sulf Inj 10 Mg/Ml Vial) 2 mg IVP X1 ONE Stop: 05/11/24 12:15 Last Admin: 05/11/24 12:29 Dose: 2 mg Documented By: NOVA Morphine Sulfate (Morphine Sulf Inj 10 Mg/Ml Vial) 4 mg IVP Q8HR PRN PRN Reason: abdominal pain Stop: 05/16/24 12:22 Last Admin: 05/14/24 08:05 Dose: 4 mg Documented By: Admin: 05/13/24 22:47 Dose: 4 mg Documented By: Admin: 05/13/24 14:17 Dose: 4 mg Documented By: Admin: 05/13/24 01:55 Dose: 4 mg Documented By: Admin: 05/12/24 17:36 Dose: 4 mg Documented By: Admin: 05/12/24 07:47 Dose: 4 mg Documented By: Admin: 05/11/24 23:45 Dose: 4 mg Documented By: Admin: 05/11/24 15:44 Dose: 4 mg Documented By: NOVA Morphine Sulfate (Morphine Sulf 15 Mg Tabcr) 15 mg PO X1 ONE Stop: 05/11/24 14:16 Last Admin: 05/11/24 14:44 Dose: 15 mg Documented By: NOVA Morphine Sulfate (Morphine Sulf Inj 10 Mg/Ml Vial) 3 mg IVP Q8HR PRN PRN Reason: abdominal pain Stop: 05/16/24 12:22 Morphine Sulfate (Morphine Sulf Inj 10 Mg/Ml Vial) 5 mg IV X1 ONE Stop: 05/15/24 09:04 Last Admin: 05/15/24 09:11 Dose: 5 mg Documented By: HAYLEE Nifedipine (Nifedipine Xl 30 Mg Tabcr) 30 mg PO X1 ONE Stop: 05/11/24 04:43 Last Admin: 05/11/24 04:53 Dose: 30 mg Documented By: REZA Nitroglycerin (Nitroglycerin Oint 2% 1 Inch Packet) 2 inch TOP X1 ONE Stop: 05/10/24 12:16 Last Admin: 05/10/24 12:46 Dose: 2 inch Documented By: GABRIELA Ondansetron HCl (Ondansetron Inj 2 Mg/Ml Inj 2 Ml) Confirm Administered Dose 4 mg .ROUTE .STK-MED ONE Stop: 05/11/24 09:13 Pharmacy Consult (Vancomycin Pharmacy To Dose 1 Each Each) 1 each IV QDAY PRN PRN Reason: PROTOCOL Stop: 06/09/24 18:29 Phenylephrine HCl (Phenylephrine Inj 10 Mg/Ml Vial) Confirm Administered Dose 10 mg .ROUTE .STK-MED ONE Stop: 05/11/24 08:41 Potassium Chloride (Potassium Chloride 20 Meq Tabcr) 40 meq PO X1 ONE Stop: 05/15/24 08:18 Last Admin: 05/15/24 09:59 Dose: 40 meq Documented By: BA Propofol (Propofol Inj 10 Mg/Ml Vial 20 Ml) Confirm Administered Dose 400 mg IV .STK-MED ONE Stop: 05/11/24 08:41 Succinylcholine Chloride (Succinylcholine Inj 20 Mg/Ml Vial 10 Ml) Confirm Administered Dose 200 mg .ROUTE .STK-MED ONE Stop: 05/11/24 09:06 See above Consultations Consultation(s) initiated? (list below): Yes Consultation #1 (Physician, Specialty, Details): I spoke with enterostomal therapy nurse Dr. Sheffield. Discussed patients PMHx, HPI, ED course, exam findings, labs, and radiology results. Advised changing medications and if blood pressure improves can be admitted to the floors. Time: 16:15 Consultation #2 (Physician, Specialty, Details): I spoke with resident Dr. Sparrow working with Dr. Whitfield. Discussed patients PMHx, HPI, ED course, exam findings, labs, and radiology results. The hospitalist agree to accept the patient for admission. Time: 16:35 Diagnosis Differential Diagnosis ED Complaint MDM: Hypertensive emergency, hypertensive urgency, sepsis, pneumonia Most likely diagnosis given after review of the tests above:: Acute respiratory failure with hypoxia Altered mental status Sepsis Groin abscess Admission Indicated Admission indicated?: indicated Explain why admission is indicated or not indicated:: Further evaluation and treatment Admission Request Was there a request for admission?: Yes Admission Attestation Admission request attestation: Discussed case with [] from Hospitalist service regarding admission. Discussed patients ED course, exam findings, labs, and radiology results. The Hospitalist [agrees,declines] to accept the patient for admission. Disposition Plan Disposition Plan: Admit Medical Decision Making Differential Diagnosis Differential Diagnosis: Hypertensive emergency, hypertensive urgency, sepsis, pneumonia Lab Data 05/15/24 05:02 05/15/24 05:02 Labs: Lab Results 05/10/24 05/10/24 05/10/24 Range/Units 11:15 11:50 11:58 WBC 21.8 H (3.8-10.6) Thou/mm3 RBC 3.52 L (4.50-5.90) Miln/mm3 Hgb 9.1 L (13.5-16.0) g/dL Hct 28.5 L (41.0-53.0) % MCV 81 (80-100) fL MCH 25.9 (25.0-35.0) pg MCHC 31.9 (31.0-37.0) g/dl RDW Std Deviation 46.1 H (35.1-43.9) fL Plt Count 203 (140-440) Thou/mm3 Neut % (Auto) 89 H (37-80) % Lymph % (Auto) 2 L (10-50) % [place] % (Auto) 8 (0-12) % Eos % (Auto) 0 (0-10) % Baso % (Auto) 0 (0-2.5) % Neut # (Auto) 19.4 H (1.8-7.7) Thou/mm3 Lymph # (Auto) 0.4 L (1.0-4.8) Thou/mm3 [place] # (Auto) 1.8 H (0.0-0.8) Thou/mm3 Eos # (Auto) 0.0 (0.0-0.5) Thou/mm3 Baso # (Auto) 0.0 (0.0-0.2) Thou/mm3 Immature Gran # (Auto) 0.15 H (0.00-0.00) Thou/mm3 Absolute Nucleated RBC 0.00 (0.00-0.00) Thou/mm3 Immature Gran % 1 H (0-0) % Nucleated RBC % 0 (0) /100 WBC ESR 103 H (0-20) mm/hr D-Dimer 1350 H (<600) ng/mL Puncture Site ABG pH (7.35-7.45) ABG pCO2 (32.0-48.0) mmHg ABG pO2 (83-108) mmHg ABG HCO3 (20-26) mEq/L ABG O2 Saturation (91-98) % ABG Base Excess (-3-3) FiO2 % Sodium 132 L (136-145) mMol/L Potassium 3.7 (3.4-5.1) mMol/L Chloride 102 (98-107) mMol/L Carbon Dioxide 21.6 (20.0-31.0) mMol/L Anion Gap 8 (7-16) BUN 31 H (9-23) mg/dL Creatinine 1.4 H (0.6-1.3) mg/dL Estim Creat Clear Calc 71.6 (>60) mL/min eGFR 59 L (60 - ) See Note BUN/Creatinine Ratio 22 H (12-20) Ratio Glucose 369 H (74-106) mg/dL Calculated Osmolality 286 (275-295) Lactic Acid 0.9 (0.4-2.0) mMol/L Calcium 8.7 (8.3-10.6) mg/dL Corrected Calcium 9.2 (8.5-10.1) mg/dL Magnesium 1.6 (1.6-2.6) mg/dL Total Bilirubin 0.3 (0.3-1.2) mg/dL AST 40 H (0-34) U/L ALT 20 (10-49) U/L Alkaline Phosphatase 156 H (46-116) U/L Ammonia 16 (11-32) uMol/L Total Creatine Kinase 284 H (34-171) U/L Troponin I 0.103 H* (0.0-0.045) ng/mL C-Reactive Prot, Quant 26.2 H (0.0-0.9) mg/dL B-Natriuretic Peptide 1667 H* (0-100) pg/mL Total Protein 6.4 (5.7-8.2) gm/dL Albumin 3.4 L (3.5-5.0) gm/dL Globulin 3.0 (2.3-3.5) gm/dL Albumin/Globulin Ratio 1.1 L (1.2-2.2) Procalcitonin 12.01 H (0.0-0.49) ng/ml Ur Collection Type Clean Catch Urine Color Yellow (Lt Yel-Yel) Urine Clarity Clear (Clear/Hazy) Urine pH 6.5 (5.0-7.0) Ur Specific [place] 1.025 (1.001-1.035) Urine Protein 3+ A (Neg - Trace) Urine Glucose (UA) 4+ A (Negative) Urine Ketones 1+ A (Negative) Urine Blood 3+ A (Negative) Urine Nitrite Negative (Negative) Urine Bilirubin Negative (Negative) Urine Urobilinogen (Auto) Negative (0.0-1.0) mg/dL Ur Leukocyte Esterase Negative (Negative) Urine RBC 34 H (0-3) /hpf Urine WBC 5 (0-5) /hpf Ur Squamous Epith Cells 1 (0-5) /hpf Urine Bacteria None (None) Hyaline Casts < 1 (0-1) /hpf Granular Casts 1 (0-1) /hpf Urine Opiates Screen Positive A (Negative) Urine Fentanyl Screen Negative (Negative) Ur Barbiturates Screen Negative (Negative) U Amphetamin/Meth Scrn Negative (Negative) U Benzodiazepines Scrn Negative (Negative) U Cocaine Metab Screen Negative (Negative) U Marijuana (THC) Screen Positive A (Negative) RSV Rapid (Negative) 05/10/24 05/10/24 05/10/24 Range/Units 12:26 13:20 16:53 WBC (3.8-10.6) Thou/mm3 RBC (4.50-5.90) Miln/mm3 Hgb (13.5-16.0) g/dL Hct (41.0-53.0) % MCV (80-100) fL MCH (25.0-35.0) pg MCHC (31.0-37.0) g/dl RDW Std Deviation (35.1-43.9) fL Plt Count (140-440) Thou/mm3 Neut % (Auto) (37-80) % Lymph % (Auto) (10-50) % [place] % (Auto) (0-12) % Eos % (Auto) (0-10) % Baso % (Auto) (0-2.5) % Neut # (Auto) (1.8-7.7) Thou/mm3 Lymph # (Auto) (1.0-4.8) Thou/mm3 [place] # (Auto) (0.0-0.8) Thou/mm3 Eos # (Auto) (0.0-0.5) Thou/mm3 Baso # (Auto) (0.0-0.2) Thou/mm3 Immature Gran # (Auto) (0.00-0.00) Thou/mm3 Absolute Nucleated RBC (0.00-0.00) Thou/mm3 Immature Gran % (0-0) % Nucleated RBC % (0) /100 WBC ESR (0-20) mm/hr D-Dimer (<600) ng/mL Puncture Site Left Radial ABG pH 7.34 L (7.35-7.45) ABG pCO2 43 (32.0-48.0) mmHg ABG pO2 127 H (83-108) mmHg ABG HCO3 23 (20-26) mEq/L ABG O2 Saturation 100 H (91-98) % ABG Base Excess -2 (-3-3) FiO2 30 % Sodium (136-145) mMol/L Potassium (3.4-5.1) mMol/L Chloride (98-107) mMol/L Carbon Dioxide (20.0-31.0) mMol/L Anion Gap (7-16) BUN (9-23) mg/dL Creatinine (0.6-1.3) mg/dL Estim Creat Clear Calc (>60) mL/min eGFR (60 - ) See Note BUN/Creatinine Ratio (12-20) Ratio Glucose (74-106) mg/dL Calculated Osmolality (275-295) Lactic Acid (0.4-2.0) mMol/L Calcium (8.3-10.6) mg/dL Corrected Calcium (8.5-10.1) mg/dL Magnesium (1.6-2.6) mg/dL Total Bilirubin (0.3-1.2) mg/dL AST (0-34) U/L ALT (10-49) U/L Alkaline Phosphatase (46-116) U/L Ammonia (11-32) uMol/L Total Creatine Kinase Cancelled (34-171) U/L Troponin I 0.095 H* (0.0-0.045) ng/mL C-Reactive Prot, Quant (0.0-0.9) mg/dL B-Natriuretic Peptide 2201 H* (0-100) pg/mL Total Protein (5.7-8.2) gm/dL Albumin (3.5-5.0) gm/dL Globulin (2.3-3.5) gm/dL Albumin/Globulin Ratio (1.2-2.2) Procalcitonin (0.0-0.49) ng/ml Ur Collection Type Urine Color (Lt Yel-Yel) Urine Clarity (Clear/Hazy) Urine pH (5.0-7.0) Ur Specific [place] (1.001-1.035) Urine Protein (Neg - Trace) Urine Glucose (UA) (Negative) Urine Ketones (Negative) Urine Blood (Negative) Urine Nitrite (Negative) Urine Bilirubin (Negative) Urine Urobilinogen (Auto) (0.0-1.0) mg/dL Ur Leukocyte Esterase (Negative) Urine RBC (0-3) /hpf Urine WBC (0-5) /hpf Ur Squamous Epith Cells (0-5) /hpf Urine Bacteria (None) Hyaline Casts (0-1) /hpf Granular Casts (0-1) /hpf Urine Opiates Screen (Negative) Urine Fentanyl Screen (Negative) Ur Barbiturates Screen (Negative) U Amphetamin/Meth Scrn (Negative) U Benzodiazepines Scrn (Negative) U Cocaine Metab Screen (Negative) U Marijuana (THC) Screen (Negative) RSV Rapid Negative (Negative) Critical Care Time Critical Care Time Critical Care Time: Yes Total Critical Care Time (min.): 35 Attestation: The high probability of sudden, clinically significant deterioration in the patient's condition required the highest level of my preparedness to intervene urgently. The services I provided to this patient were to treat and/or prevent clinically significant deterioration. Services included the following: chart data review, reviewing nursing notes and/or old charts, documentation time, financial consultant collaboration regarding findings and treatment options, medication orders and management, direct patient care, vital sign assessments and ordering, interpreting and reviewing diagnostic studies and lab tests. Aggregate critical care time includes only time during which I was engaged in work directly related to the patient's care, as described above, whether at bedside or elsewhere in the Emergency Department. It did not include time spent performing other reported procedures or the services of residents, students, nurses or physician assistants. Discharge Plan Plan Patient Disposition: Admit Acute Care w/in Hospital Problem List Clinical Impression: Acute respiratory failure with hypoxia, Sepsis, Altered mental status, Abscess, groin Patient/Caregiver Discharge Instructions Other Activity Instructions:: Wound care: Left groin soft tissue infection: cleanse with wound cleanser, pat dry, fill wound bed with black foam. Skin prep and drape. Trac pad at 125mmhg continous suction. Change Mon, Wed, Fri and PRN for suction off greater than 2 hours
--- NOTE | 2024-05-10 11:22 | XR_ITS ---
Examination: AP chest single view Technique one AP portable semiupright chest single view Exam date and time: May 10, 2024 1141 hours Comparison April 24, 2024 INDICATIONS: Shortness of breath today. FINDINGS: Mild to moderate CHF Mild to moderate enlargement cardiac contour Prominent vascular congestion with perihilar basilar edema IMPRESSION: Mild to moderate CHF
--- NOTE | 2024-05-10 11:23 | XR_ITS ---
Examination: CT brain head without contrast. 2-D sagittal coronal reconstructions Date and time of exam:May 10, 2024 1512 hours Comparison July 20, 2023 INDICATIONS: Altered mental status today CTDI: vol (mGy):87.3 DLP: (mGycm):1813 Technique: Multiple CT axial sections of the brain have been obtained, 5 mm slice thickness. Contrast has not been administered. 2-D sagittal, coronal reconstructions have been obtained Low dose protocols were performed. One or more of the following dose reduction techniques were used; automated exposure control, adjustment of the mA and/or KV according to patient size, use of iterative reconstruction technique. Findings: No significant ventricular enlargement. Intra-axial or extra-axial hemorrhage density is not seen. No mass effect or midline shift Basal cisterns are not remarkable. Fourth ventricle is midline. Cranial vault intact. Impression: Negative for acute hemorrhage, mass effect or midline shift Clinical correlation advised and follow-up accordingly
--- NOTE | 2024-05-10 11:23 | XR_ITS ---
Examination: CTA chest with intravenous contrast 2-D reconstructions 3-D reconstructions, vascular Date and time of exam: May 10, 2024 at 1519 hours INDICATIONS: Onset shortness of breath chest pain today, clinical diagnosis pulmonary embolus CTDI: vol (mGy) 18.7 DLP: (mGycm) 750 Technique: Multiple axial sections of the thorax have been obtained. 3 mm slice thickness, from below the hemidiaphragms to above the apices of the lungs. Mediastinal and lung density settings have been obtained. 2-D sagittal and coronal reconstructions. 3-D angiographic renderings, 3-D volume renderings, 3D post processing, vascular maximum intensity projections obtained. Contrast administered is 60 cc Isovue-300. Low dose protocols were performed. One or more of the following dose reduction techniques were used; automated exposure control, adjustment of the mA and/or KV according to patient size, use of iterative reconstruction technique. Findings: 27 mm left thyroid nodule No thoracic aortic aneurysm dilatation Main pulmonary artery segment measures 39 mm Pulmonary artery opacification is not optimal No mediastinal lymphadenopathy Soft areas of parenchymal opacity throughout both lungs consistent with pneumonia Mild to moderate enlargement cardiac contour Pericardial effusion measuring up to 13 mm Prominent vascular congestion Small right minimal left pleural fluid No visualized liver or splenic lesion Gallbladder wall appears mildly thickened No pancreatic mass IMPRESSION: 27 mm left thyroid nodule, recommend thyroid sonography follow-up Pulmonary artery opacification is quite poor, in part related to the reduced contrast dose, no gross pulmonary artery emboli Mild CHF Recommend hepatobiliary sonography to exclude cholecystitis
--- NOTE | 2024-05-10 11:23 | XR_ITS ---
Examination: CT abdomen with intravenous contrast CT pelvis with intravenous contrast 2-D coronal reconstructions 2-D sagittal reconstructions Date and time of exam:May 10, 2024 1519 hours INDICATIONS: Onset abdominal pain today. CTDI: vol (mGy) 27.2 DLP: (mGycm) 1718 Technique: Multiple axial sections of the abdomen and pelvis have been obtained. 64 slice high-resolution scanner used. 3 mm axial sections have been obtained, post intravenous injection 60 cc Isovue-300 2-D sagittal coronal reconstructions Low dose protocols, adjustment MA KV according to patient size, iterative reconstruction techniques FINDINGS: There are no focal liver lesions or biliary tract dilatation, liver is mildly irregular in contour Gallbladder wall appears mildly thickened Spleen is not enlarged No pancreatic mass No renal or ureteral calculi, no hydronephrosis Aorta normal size No pericecal inflammatory change No bowel obstruction or diverticulitis Urinary bladder intact Severe osteopenia Extensive air density in the soft tissue left groin extending into the anterior and lateral left thigh, clinical correlation advised Mild anasarca IMPRESSION: Recommend hepatobiliary sonography follow-up to exclude cholecystitis Suspect primary hepatocellular disease, mild anasarca No renal or ureteral calculi, no hydronephrosis No CT findings of appendicitis bowel obstruction or diverticulitis Extensive air densities in the soft tissue left groin extending into the anterior and lateral upper thigh, clinical correlation advised
[2024-05-10] MEDS: SODIUM CHLORIDE 0.9% 1000 ML 1,000 ML 999 ML IV (11:30)
[2024-05-10] MEDS: cefTRIAXone/D5w 1gm IV premix 50 ML IV (11:45)
[2024-05-10] MEDS: MethylPREDNISolone SOD SUCC 62.5 MG/ML 2ML VIAL 125 MG IVP (11:46)
[2024-05-10 11:52] LABS: Lactate (Lactic Acid) 0.9 mMol/L (0.4-2.0)
[2024-05-10 11:55] LABS: Basophils % (Auto) 0 % (0-2.5); Eosinophils % (Auto) 0 % (0-10); Hematocrit 28.5 % (41.0-53.0); Hemoglobin 9.1 g/dL (13.5-16.0); Immature Granulocytes % (Auto) 1 % (0-0); Immature Granulocytes Auto 0.15 Thou/mm3 (0.00-0.00); Lymphocytes # (Auto) 0.4 Thou/mm3 (1.0-4.8); Lymphocytes % (Auto) 2 % (10-50); Mean Corpuscular HGB Conc 31.9 g/dl (31.0-37.0); Mean Corpuscular Hemoglobin 25.9 pg (25.0-35.0); Mean Corpuscular Volume 81 fL (80-100); Monocytes # (Auto) 1.8 Thou/mm3 (0.0-0.8); Monocytes % (Auto) 8 % (0-12); Neutrophils # (Auto) 19.4 Thou/mm3 (1.8-7.7); Neutrophils % (Auto) 89 % (37-80); Nucleated Red Blood Cell % 0 /100 WBC (0); Platelet Count 203 Thou/mm3 (140-440); RDW Standard Deviation 46.1 fL (35.1-43.9); Red Blood Count 3.52 Miln/mm3 (4.50-5.90); White Blood Count 21.8 Thou/mm3 (3.8-10.6)
[2024-05-10 12:02] LABS: Sed Rate (ESR) 103 mm/hr (0-20)
[2024-05-10 12:03] LABS: Collection Type, Urine Clean Catch
--- NOTE | 2024-05-10 12:11 | PC.NURSE ---
patients blood pressure 191/99 provider made aware
[2024-05-10 12:14] LABS: D-Dimer 1350 ng/mL (<600)
--- NOTE | 2024-05-10 12:14 | PC.NURSE ---
called RT to place patient on BIPAP now per dr acuna
[2024-05-10 12:20] LABS: Ammonia 16 uMol/L (11-32)
[2024-05-10 12:22] LABS: Alanine Aminotransferase 20 U/L (10-49); Albumin, Serum 3.4 gm/dL (3.5-5.0); Albumin/Globulin Ratio 1.1 (1.2-2.2); Alkaline Phosphatase 156 U/L (46-116); Anion Gap 8 (7-16); Aspartate Amino Transferase 40 U/L (0-34); BUN/Creatinine Ratio 22 Ratio (12-20); Bilirubin,Total 0.3 mg/dL (0.3-1.2); Blood Urea Nitrogen 31 mg/dL (9-23); C-Reactive Protein 26.2 mg/dL (0.0-0.9); Calcium 8.7 mg/dL (8.3-10.6); Calcium (Corrected) 9.2 mg/dL (8.5-10.1); Carbon Dioxide 21.6 mMol/L (20.0-31.0); Chloride 102 mMol/L (98-107); Creatinine (Component) 1.4 mg/dL (0.6-1.3); Estimated Creatinine Clearance 71.6 mL/min (>60); Glucose 369 mg/dL (74-106); Magnesium 1.6 mg/dL (1.6-2.6); Osmolality,Calculated 286 (275-295); Potassium 3.7 mMol/L (3.4-5.1); Procalcitonin 12.01 ng/ml (0.0-0.49); Sodium 132 mMol/L (136-145); Total Protein 6.4 gm/dL (5.7-8.2); eGFR 59 See Note
[2024-05-10 12:24] LABS: Bilirubin,Urine Negative (Negative); Blood,Urine 3+ (Negative); Clarity,Urine Clear (Clear/Hazy); Color,Urine Yellow (Lt Yel-Yel); Glucose, Urine 4+ (Negative); Granular Casts,Urine 1 /hpf (0-1); Hyaline Casts,Urine < 1 /hpf (0-1); Ketones,Urine 1+ (Negative); Leukocyte Esterase,Urine Negative (Negative); Nitrite,Urine Negative (Negative); PH,Urine 6.5 (5.0-7.0); Protein,Urine 3+ (Neg - Trace); RBC,Urine 34 /hpf (0-3); Specific Gravity,Urine 1.025 (1.001-1.035); Squamous Epithelial Cell,Urine 1 /hpf (0-5); Urobilinogen,Urine Negative mg/dL (0.0-1.0); WBC,Urine 5 /hpf (0-5)
[2024-05-10 12:24] LABS: Troponin I 0.103 ng/mL (0.0-0.045)
[2024-05-10] MEDS: hydrALAZINE INJ 20 MG/ML VIAL 10 MG IV ×3 (12:27→19:26)
[2024-05-10 12:29] LABS: Base Excess -2 (-3-3); HCO3 23 mEq/L (20-26); Inspired Oxygen, FIO2 30 %; O2 Saturation 100 % (91-98); PCO2 43 mmHg (32.0-48.0); PO2 127 mmHg (83-108); pH, Arterial 7.34 (7.35-7.45)
[2024-05-10 12:30] LABS: B-Type Natriuretic Peptide 1667 pg/mL (0-100)
[2024-05-10 12:33] LABS: Allen Test Not Performed; Puncture Site Left Radial
[2024-05-10] MEDS: ALBUTEROL/IPRATROPIUM (Duoneb) RT SOL 3 ML NEBU 6 ML INH (12:36)
[2024-05-10] MEDS: Magnesium Sulfate 2 GM Ivpb 2 GM/50 ML BAG IV (12:37)
[2024-05-10] MEDS: ACETAMINOPHEN IVPB 1,000 MG/100 ML VIAL 250 MG IV (12:43)
[2024-05-10] MEDS: NITROGLYCERIN OINT 2% 1 INCH PACKET 2 INCH TOP (12:46)
--- NOTE | 2024-05-10 13:35 | PC.NURSE ---
BP 199/94 dr acuna made aware
[2024-05-10] MEDS: NICARDIPINE/NS 20MG IVPB 20 MG/200 ML BAG 50 MG IV (14:02)
--- NOTE | 2024-05-10 14:28 | PC.NURSE ---
Dr. Sohan Gonzalez made aware bp 207/94, and is maxed out on nicareipine gtt at 15mg/hr, no new orders received, called RT to assist with taking patient to ct on bipap, RT states she will come to assist as soon as she can, Dr. Gonzalez made aware.
[2024-05-10 14:39] LABS: Creatine Kinase 284 U/L (34-171)
[2024-05-10] MEDS: NICARDIPINE/NS 20MG IVPB 20 MG/200 ML BAG 150 MG IV (15:43)
--- NOTE | 2024-05-10 16:08 | XR_ITS ---
Examination: Abdomen sonogram, Limited Date and time of exam: May 10, 2024 1644 hours INDICATIONS: Right upper quadrant abdominal pain and tenderness today Technique: Real-time dewey scale transabdominal sonographic images of the upper abdomen obtained. Findings: Negative for gallstones Gallbladder wall 0.2 cm Common bile duct 0.3 cm Pancreatic head 3.5 cm Liver 25.3 cm fatty infiltration no focal liver lesions Liver contour is mildly irregular Normal hepatopedal portal venous flow Patent IVC IMPRESSION: Normal gallbladder Significant hepatomegaly, fatty infiltration, suspicious for primary hepatocellular disease, no focal liver lesions
--- NOTE | 2024-05-10 16:19 | PC.NURSE ---
per dr acuna stop nicardipine bp 141/64
--- NOTE | 2024-05-10 16:54 | PC.NURSE ---
Dr. Whitfield at bedside to assess patient.
[2024-05-10] MEDS: LABETALOL INJ 5 MG/ML VIAL 20 ML 20 MG IVP (17:11)
[2024-05-10] MEDS: FUROSEMIDE INJ 10 MG/ML 4ML VIAL 80 MG IVP (17:12)
--- NOTE | 2024-05-10 17:17 | ESCONSULT_ITS ---
HPI Data of Consult Primary Care Provider: Physician No Primary/Family Consult Narrative Reason for consult: Hypertensive emergency History of present illness: A 54-year-old male with past medical history of insulin-dependent diabetes mellitus, CAD, HFpEF, CVA with b/l endarterectomy, pulmonary embolism on Eliquis, hypertension, obstructive sleep apnea, cirrhosis, recent hospital admission 2 weeks ago with CHF exacerbation and left groin abscess presented to the ED with chief complaints of altered mental status, fever and left groin pain. Patient was admitted 2 weeks back with CHF exacerbation and diagnosed to have left groin abscess and recommended percutaneous drainage in the outpatient setting, supposedly patient did not follow-up with that. ICU team was consulted in view of elevated blood pressures despite receiving hydralazine and patient was started on nicardipine drip. Patient is on BiPAP and appears lethargic when ICU team went to see the patient, so could not get history from the patient. In the ED, patient was found to have elevated blood pressure of 180/102 mmHg, pulse rate 100 bpm, respiratory rate 28/min, temperature 100.8 ?F, SpO2 100% with OxyMask. As patient appears lethargic and low saturations are noted, patient was started on BiPAP. Labs showed elevated WBC, elevated ESR, mild hyponatremia 132, BUN 31, creatinine 1.4, glucose 369, AST 40, ALT 20, total creatine kinase 284, C-reactive protein 26.2, procalcitonin 12.01 ng/mL. Urine analysis showed 3+ proteinuria, glucosuria, 1+ ketones, 3+ blood with 34 RBC. urine toxicology tested positive for opiates and marijuana. ABG showed pH 7.34, pCO2 43, pO2 127, bicarb 23. In the ED, patient received a bolus of NS, ceftriaxone in view of suspected sepsis, a dose of hydralazine 10 Mg and nitroglycerin topical patch 2 Mg following which the blood pressures are still elevated and patient was started on nicardipine drip. Blood pressure started trending down and when the ICU team saw the patient patient is off nicardipine drip for 45 minutes and the blood pressure is 140's/60's. On examination, patient was found to be lethargic but following verbal commands and answer to the questions appropriately. On auscultation, decreased breath sounds are noted bilaterally in view of the body habitus and S1-S2 present with no appreciable murmurs, bilateral pitting 4+ pedal edema was noted. Recommended 80 Mg of Lasix, 10 Mg of labetalol and recommended to continue blood pressure monitoring. On evaluation, the patient's lethargic status does not seem to correlate with obstructive sleep apnea as the patient's ABG looked within normal limits and his saturations are maintained well, so does not need any immediate intubation. Patient also found to have extensive air density levels in the left groin extending in the anterior and lateral thigh which could be contributing to the patient's current mental status and recommended to follow-up with general surgeon for further need of draining the area. Recommended to follow-up with the blood pressures and if the patient needs nicardipine drip or intubation to protect the airway, can be transferred to ICU for further management. cc:: cc: Review of Systems Review of Systems ROS Unobtainable: unobtainable due to mental status Past Medical History Past Medical History NEUROLOGIC: Positive Neurological Disorders, Cerebrovascular Accident, Transient Ischemic Attacks (TIA) and Willis's Palsy CARDIAC: Positive Cardiac Disorders, Myocardial Infarction, Coronary Artery Disease, Atherosclerotic Heart Disease, Hypercholesterolemia, Congestive Heart Failure, Deep Vein Thrombosis and Hypertension RESPIRATORY: Positive Asthma and Pulmonary Embolism GASTROINTESTINAL: Positive Gastrointestinal Disorders and Obesity GENITOURINARY: Positive Genitourinary Disorders and Kidney Stones MUSCULOSKELETAL: Positive Musculoskeletal Disorders and Degenerative Disk Disease ENDOCRINE: Positive Endocrine Disorders and Diabetes Mellitus Type 2 PSYCHO/SOCIAL: Positive Anxiety OTHER HISTORY: Positive Falls, Blood Transfusions, Blood Transfusion Reaction and Chicken Pox Family History FAMILY HISTORY: Positive Family Respiratory Disorders and Family Cardiac Disorders Surgical History SURGICAL: Positive Cardiac Surgery, Coronary Stent and Carotid Endarterectomy Social History SMOKING STATUS: Current every day smoker SECOND HAND EXPOSURE: No ([id number] x 4 yrs) SUBSTANCE USE: does not use Exam Vital Signs Temp Pulse Resp BP Pulse Ox O2 Del Method O2 Flow Rate 101.5 F H 85 16 165/75 H 99 BiPAP 10 05/10/24 13:29 05/10/24 17:12 05/10/24 16:59 05/10/24 17:12 05/10/24 16:59 05/10/24 16:59 05/10/24 10:53 FiO2 35 05/10/24 12:40 Narrative Exam General: On BiPAP and able to follow the verbal commands HEENT: Normocephalic, atraumatic, mucous membranes moist. Heart: Regular rate and rhythm, no murmurs. Lungs: Clear to auscultation with no wheezing or crackles. But decreased breath sounds noted bilaterally in view of body habitus Abdomen: Soft, nondistended, nontender, positive bowel sounds. Severe tenderness noted in the left groin and thigh area Neurologic: Able to follow verbal commands, no gross neurological deficit, and patient able to move all 4 extremities. Extremities: Bilateral pitting 4+ pedal edema is noted Skin: No rash. Ecchymotic patch is noted on the abdomen right to the umbilicus. Results Labs 05/11/24 05:50 05/11/24 05:50 Labs: Short CBC 05/10/24 Range/Units 11:15 WBC 21.8 H (3.8-10.6) Thou/mm3 Hgb 9.1 L (13.5-16.0) g/dL Hct 28.5 L (41.0-53.0) % Plt Count 203 (140-440) Thou/mm3 BMP 05/10/24 11:15 Sodium 132 L Potassium 3.7 Chloride 102 Carbon Dioxide 21.6 BUN 31 H Creatinine 1.4 H Glucose 369 H Calcium 8.7 Cardiac Enzymes 05/10/24 Range/Units 11:15 Total Creatine Kinase 284 H (34-171) U/L Troponin I 0.103 H* (0.0-0.045) ng/mL Liver Function 05/10/24 Range/Units 11:15 Total Bilirubin 0.3 (0.3-1.2) mg/dL AST 40 H (0-34) U/L ALT 20 (10-49) U/L Alkaline Phosphatase 156 H (46-116) U/L Albumin 3.4 L (3.5-5.0) gm/dL Urine 05/10/24 Range/Units 11:58 Urine Color Yellow (Lt Yel-Yel) Urine Clarity Clear (Clear/Hazy) Urine pH 6.5 (5.0-7.0) Ur Specific [place] 1.025 (1.001-1.035) Urine Protein 3+ A (Neg - Trace) Urine Glucose (UA) 4+ A (Negative) ABG Interpretation ABG results: 05/10/24 12:26 ABG pH 7.34 L ABG pCO2 43 ABG pO2 127 H ABG HCO3 23 ABG O2 Saturation 100 H ABG Base Excess -2 Quality Measures Quality Measures sepsis Current suspected stage: sepsis Possible source: unknown Blood cultures ordered: completed in ED Antibiotic ordered: Yes Medications Home Medications and Allergies Home Medications ?Medication ?Instructions ?Recorded ?Confirmed ?Type atorvastatin 40 mg tablet 40 mg PO HS 10/22/23 01/14/24 History hydrocodone 10 mg-acetaminophen 1 tab PO Q4H 10/22/23 01/14/24 History 325 mg tablet ipratropium 20 mcg-albuterol 100 2 puff inhalation Q8HR PRN 10/22/23 01/14/24 History mcg/actuation mist for inhalation Shortness Of Breath (Combivent Respimat) lorazepam 2 mg tablet 2 mg PO BID 10/22/23 01/14/24 History losartan 100 mg tablet 100 mg PO DAILY 10/22/23 01/14/24 History metoprolol succinate 100 mg 100 mg PO DAILY 10/22/23 01/14/24 History tablet,extended release 24 hr pregabalin 150 mg capsule 150 mg PO TID 10/22/23 01/14/24 History semaglutide 2 mg/dose (8 mg/3 mL) 2 mg subcut QWEEK 10/22/23 01/14/24 History subcutaneous pen injector (Ozempic) morphine 15 mg tablet,extended 15 mg PO QDAY PRN Pain 01/14/24 01/14/24 History release Allergies Allergy/AdvReac Type Severity Reaction Status Date / Time ketorolac Allergy Severe TONGUE Verified 07/26/23 22:55 SWELLS UP Visit Medications Nicardipine/Sodium Chloride (Cardene Ivpb) 20 mg in 200 mls @ 50 mls/hr IV .Q4H PRN; Protocol PRN Reason: PER PROTOCOL Stop: 06/09/24 13:34 Last Titration: 05/10/24 16:19 Dose: 0 mg/hr, 0 mls/hr Discontinued Medications Acetaminophen (Acetaminophen Supp 650 Mg Supp) 650 mg SC X1 ONE Stop: 05/10/24 11:14 Last Admin: 05/10/24 12:44 Dose: Not Given Albuterol/Ipratropium (Albuterol/Ipratropium (Duoneb) Rt Radha 3 Ml Nebu) 6 ml INH X1 ONE Stop: 05/10/24 11:18 Last Admin: 05/10/24 12:36 Dose: 6 ml Furosemide (Furosemide Inj 10 Mg/Ml 4ml Vial) 80 mg IVP X1 ONE Stop: 05/10/24 16:10 Furosemide (Furosemide Inj 10 Mg/Ml 4ml Vial) 40 mg IVP X1 ONE Stop: 05/10/24 16:49 Last Admin: 05/10/24 16:54 Dose: Not Given Furosemide (Furosemide Inj 10 Mg/Ml 4ml Vial) 80 mg IVP X1 ONE Stop: 05/10/24 16:51 Last Admin: 05/10/24 17:12 Dose: 80 mg Hydralazine HCl (Hydralazine Inj 20 Mg/Ml Vial) 10 mg IV X1 ONE Stop: 05/10/24 12:16 Last Admin: 05/10/24 12:27 Dose: 10 mg Hydralazine HCl (Hydralazine Inj 20 Mg/Ml Vial) 10 mg IV X1 ONE Stop: 05/10/24 16:17 Last Admin: 05/10/24 17:11 Dose: 10 mg Sodium Chloride (Ns) 1,000 mls @ 999 mls/hr IV .Q1H1M ONE Stop: 05/10/24 12:14 Last Infusion: 05/10/24 12:30 Dose: Infused Ceftriaxone Sodium/Dextrose (Rocephin/D5w 1gm Iv Premix) 50 mls @ 100 mls/hr IV X1 ONE Stop: 05/10/24 11:44 Last Infusion: 05/10/24 12:32 Dose: Infused Magnesium Sulfate (Magnesium Sulfate Ivpb) 2 gm in 50 mls @ 25 mls/hr IV X1 ONE Stop: 05/10/24 13:16 Last Admin: 05/10/24 14:07 Dose: Not Given Acetaminophen (Ofirmev Inj) 1,000 mg in 100 mls @ 250 mls/hr IV X1 ONE Stop: 05/10/24 12:29 Last Infusion: 05/10/24 13:14 Dose: Infused Magnesium Sulfate (Magnesium Sulfate Ivpb) 2 gm in 50 mls @ 25 mls/hr IV X1 ONE Stop: 05/10/24 14:29 Last Admin: 05/10/24 12:37 Dose: 25 mls/hr Ketorolac Tromethamine (Ketorolac Inj 30 Mg/Ml Vial) 15 mg IVP X1 ONE Stop: 05/10/24 11:14 Last Admin: 05/10/24 11:29 Dose: Not Given Labetalol HCl (Labetalol Inj 5 Mg/Ml Vial 20 Ml) 20 mg IVP X1 ONE Stop: 05/10/24 16:17 Last Admin: 05/10/24 17:11 Dose: 20 mg Methylprednisolone Sodium Succinate (Methylprednisolone Sod Succ 62.5 Mg/Ml 2ml Vial) 125 mg IVP X1 ONE Stop: 05/10/24 11:18 Last Admin: 05/10/24 11:46 Dose: 125 mg Nitroglycerin (Nitroglycerin Oint 2% 1 Inch Packet) 2 inch TOP X1 ONE Stop: 05/10/24 12:16 Last Admin: 05/10/24 12:46 Dose: 2 inch Assessment & Plan Plan A 54-year-old male with past medical history of insulin-dependent diabetes mellitus, CAD, HFpEF, CVA with b/l endarterectomy, pulmonary embolism on Eliquis, hypertension, obstructive sleep apnea, hypertension, OHS/CAROLYN, cirrhosis, recent hospital admission 2 weeks ago with CHF exacerbation and left groin abscess presented to the ED with chief complaints of altered mental status, fever and left groin pain. ICU team was consulted for hypertensive emergency and elevated blood pressures despite IV medications. Hypertensive emergency -Initial blood pressures at the time of presentation to the ED is 180/102 mmHg. Patient was given a dose of hydralazine 10 Mg and nitroglycerin topical patch. Despite those, blood pressures are still elevated so patient was started on nicardipine drip 5 Mg per hour. -When the patient is evaluated by the ICU team, nicardipine is stopped for 45 minutes and patient's blood pressure is 147/68 mmHg. -On clinical examination, patient was found to be on BiPAP, bilateral pitting 4+ pedal edema and history of HFpEF, using bumetanide and spironolactone at home. -ABG showed normal pH, pCO2, bicarb. Labs showed elevated WBC, procalcitonin. -Patient received a bolus of NS in view of suspected sepsis. -Recommended 80 Mg of Lasix, labetalol 20 Mg, hydralazine 10 Mg. -Recommended to monitor blood pressures and if it is uncontrolled, will shift the patient to ICU for nicardipine drip. -As the patient is having a densities in the left groin extending into the anterior and lateral thigh with suspected abscess, recommended to follow-up with general surgery to evaluate further drainage of abscess. -As the patient does not currently need to be intubated or did not need nicardipine drip, recommended to continue care with the primary team and surgical team for further management of patient's condition. -If the patient needs intubation/nicardipine drip-will transfer the patient to ICU for further care.
--- NOTE | 2024-05-10 17:19 | PC.NURSE ---
Dr. Root at bedside to evaluate patient for lump to left mid/lower abd. pain, swelling and redness.
[2024-05-10 17:27] LABS: B-Type Natriuretic Peptide 2201 pg/mL (0-100)
[2024-05-10 17:27] LABS: Amphetamine/Methamp Scrn,U Negative (Negative); Barbiturate Screen,Urine Negative (Negative); Benzodiazepines Screen,Urine Negative (Negative); Benzoylecgonine Screen, Ur Negative (Negative); Fentanyl Screen,Urine Negative (Negative); Opiate Screen,Urine Positive (Negative); THC Screen,Urine Positive (Negative)
[2024-05-10 17:28] LABS: Troponin I 0.095 ng/mL (0.0-0.045)
--- NOTE | 2024-05-10 18:21 | ESHP_ITS ---
<Statement entered by Jaquelin Sparrow MD - 05/12/24 19:33> I discussed with and supervised the internal communications manager physician who took care of this patient. I personally saw and examined the patient and discussed the assessment and plan with the entire medicine team, including my attending , I agree with most of the assessment and plan as documented below Jaquelin Sparrow M.D. PGY-2 Documentation for date of: 05/10/24 HPI History of Present Illness Chief complaint: altered mental status History of present illness: Mekhi Smith is 54 yr male with PMH of CAD, HFpEF, CVA with B/L endarterectomy, PE on Eliquis, hypertension, OHS/CAROLYN, cirrhosis, insulin- dependent type 2 diabetes presenting to ED today due to weakness. Family stated that they found him on the floor at home. Not able to obtain history from patient at this time. Most history was obtained from chart review. He was recently discharged from hospital on 04/28/2024 due to CHF exacerbation and lower extremity edema. He was also diagnosed to have left groin abscess and recommended percutaneous drainage in the outpatient setting. However, patient did not follow-up with treatment. Patient was started on BiPAP while in the ED. Is able to respond to yes or no questions with head nodding. In the ED, patient was found to have hypertensive emergency 180/102 mmHg, tachycardic 100, tachypneic 28/min, low-grade fever 100.8 ?F, SpO2 100% on 10 L OxyMask. Labs significant for leukocytosis 21.8, anemia hemoglobin 9, platelet 203, elevated ESR 103, D-dimer 1350, ABG unremarkable, sodium 132, potassium 3.7, creatinine 1.4 elevated from baseline, glucose 369, lactic acid normal 0.9, alk phos 156, CK 284, elevated troponin 0.103, CRP 26, BNP 07/23/2000, Pro-Angelo 12, UA 3+ protein, 4+ glucose, 1+ ketones, negative nitrite/negative leukocyte Estrace, hematuria, urine tox positive for THC and opiates. Diagnostic imaging: No acute ischemic changes on EKG, chest x-ray consistent with moderate CHF, CT head negative for acute hemorrhage, gallbladder ultrasound revealing significant hepatomegaly suspicious for primary hepatocellular disease. No evidence of acute cholecystitis. Patient received furosemide 80 IV x 1, labetalol 20 x 1, hydralazine 10 x 1, [id number] mg, magnesium sulfate 2 g x 1, DuoNeb treatment x 1, methylprednisone 125 mg x 1, Rocephin x 1, and [address] Haney was consulted and he was admitted for AHRF 2/2 sepsis and left groin abscess. 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 Patient lives in [place] with his (and her 2 children). Patient quit smoking about 8 months ago; has greater than [id number] smoking history. Patient used to drink alcohol daily (multiple shots of vodka per day); has been sober for over 5 years now. Patient denies any illicit drug use other than marijuana which she smokes occasionally via joint during family gatherings Review of Systems Review of Systems ROS Unobtainable: unobtainable due to medical condition Exam Vital Signs Temp Pulse Resp BP Pulse Ox O2 Del Method O2 Flow Rate 100.5 F H 82 19 167/79 H 99 BiPAP 10 05/10/24 18:10 05/10/24 18:10 05/10/24 18:10 05/10/24 18:10 05/10/24 18:10 05/10/24 18:10 05/10/24 10:53 FiO2 35 05/10/24 12:40 Narrative Exam General: On BiPAP, able to follow the verbal commands HEENT: Normocephalic, atraumatic Heart: Regular rate and rhythm, no murmurs. Lungs: Clear to auscultation with no wheezing or crackles. But decreased breath sounds noted bilaterally in view of body habitus Abdomen: Soft,distended, nontender, positive bowel sounds. Severe tenderness noted in the left groin and thigh area, erythematic left groin Neurologic: Able to follow verbal commands, no gross neurological deficit, and patient able to move all 4 extremities. Extremities: Bilateral pitting 4+ pedal edema is noted Skin: No rash. Ecchymotic patch is noted on the abdomen right to the umbilicus. Results: Labs 05/11/24 05:50 05/11/24 05:50 Labs: Short CBC 05/10/24 Range/Units 11:15 WBC 21.8 H (3.8-10.6) Thou/mm3 Hgb 9.1 L (13.5-16.0) g/dL Hct 28.5 L (41.0-53.0) % Plt Count 203 (140-440) Thou/mm3 BMP 05/10/24 11:15 Sodium 132 L Potassium 3.7 Chloride 102 Carbon Dioxide 21.6 BUN 31 H Creatinine 1.4 H Glucose 369 H Calcium 8.7 Cardiac Enzymes 05/10/24 05/10/24 Range/Units 11:15 16:53 Total Creatine Kinase 284 H (34-171) U/L Troponin I 0.103 H* 0.095 H* (0.0-0.045) ng/mL Liver Function 05/10/24 Range/Units 11:15 Total Bilirubin 0.3 (0.3-1.2) mg/dL AST 40 H (0-34) U/L ALT 20 (10-49) U/L Alkaline Phosphatase 156 H (46-116) U/L Albumin 3.4 L (3.5-5.0) gm/dL Urine 05/10/24 Range/Units 11:58 Urine Color Yellow (Lt Yel-Yel) Urine Clarity Clear (Clear/Hazy) Urine pH 6.5 (5.0-7.0) Ur Specific [place] 1.025 (1.001-1.035) Urine Protein 3+ A (Neg - Trace) Urine Glucose (UA) 4+ A (Negative) ABG Interpretation ABG results: 05/10/24 12:26 ABG pH 7.34 L ABG pCO2 43 ABG pO2 127 H ABG HCO3 23 ABG O2 Saturation 100 H ABG Base Excess -2 Quality Measures Quality Measures sepsis Current suspected stage: sepsis Possible source: unknown Blood cultures ordered: completed in ED Antibiotic ordered: Yes Medications Home Medications and Allergies Home Medications ?Medication ?Instructions ?Recorded ?Confirmed ?Type atorvastatin 40 mg tablet 40 mg PO HS 10/22/23 01/14/24 History hydrocodone 10 mg-acetaminophen 1 tab PO Q4H 10/22/23 01/14/24 History 325 mg tablet ipratropium 20 mcg-albuterol 100 2 puff inhalation Q8HR PRN 10/22/23 01/14/24 History mcg/actuation mist for inhalation Shortness Of Breath (Combivent Respimat) lorazepam 2 mg tablet 2 mg PO BID 10/22/23 01/14/24 History losartan 100 mg tablet 100 mg PO DAILY 10/22/23 01/14/24 History metoprolol succinate 100 mg 100 mg PO DAILY 10/22/23 01/14/24 History tablet,extended release 24 hr pregabalin 150 mg capsule 150 mg PO TID 10/22/23 01/14/24 History semaglutide 2 mg/dose (8 mg/3 mL) 2 mg subcut QWEEK 10/22/23 01/14/24 History subcutaneous pen injector (Ozempic) morphine 15 mg tablet,extended 15 mg PO QDAY PRN Pain 01/14/24 01/14/24 History release Allergies Allergy/AdvReac Type Severity Reaction Status Date / Time ketorolac Allergy Severe TONGUE Verified 07/26/23 22:55 SWELLS UP Visit Medications Acetaminophen (Acetaminophen 325 Mg Tablet) 650 mg PO Q6H PRN PRN Reason: Fever >100.3 or pain Stop: 06/09/24 17:37 Nicardipine/Sodium Chloride (Cardene Ivpb) 20 mg in 200 mls @ 50 mls/hr IV .Q4H PRN; Protocol PRN Reason: PER PROTOCOL Stop: 06/09/24 13:34 Last Titration: 05/10/24 16:19 Dose: 0 mg/hr, 0 mls/hr Piperacillin Sod/Tazobactam (Sod 3.375 gm/ Sodium Chloride) 50 mls @ 100 mls/hr IV Q6HR RINA Stop: 05/17/24 18:18 Ondansetron HCl (Ondansetron Inj 2 Mg/Ml Inj 2 Ml) 4 mg IV Q6H PRN; Protocol PRN Reason: NAUSEA OR VOMITING Stop: 06/09/24 17:37 Pharmacy Consult (Vancomycin Pharmacy To Dose 1 Each Each) 1 each IV QDAY RINA Stop: 06/09/24 18:29 Discontinued Medications Acetaminophen (Acetaminophen Supp 650 Mg Supp) 650 mg VT X1 ONE Stop: 05/10/24 11:14 Last Admin: 05/10/24 12:44 Dose: Not Given Albuterol/Ipratropium (Albuterol/Ipratropium (Duoneb) Rt Radha 3 Ml Nebu) 6 ml INH X1 ONE Stop: 05/10/24 11:18 Last Admin: 05/10/24 12:36 Dose: 6 ml Furosemide (Furosemide Inj 10 Mg/Ml 4ml Vial) 80 mg IVP X1 ONE Stop: 05/10/24 16:10 Last Admin: 05/10/24 17:29 Dose: Not Given Furosemide (Furosemide Inj 10 Mg/Ml 4ml Vial) 40 mg IVP X1 ONE Stop: 05/10/24 16:49 Last Admin: 05/10/24 16:54 Dose: Not Given Furosemide (Furosemide Inj 10 Mg/Ml 4ml Vial) 80 mg IVP X1 ONE Stop: 05/10/24 16:51 Last Admin: 05/10/24 17:12 Dose: 80 mg Hydralazine HCl (Hydralazine Inj 20 Mg/Ml Vial) 10 mg IV X1 ONE Stop: 05/10/24 12:16 Last Admin: 05/10/24 12:27 Dose: 10 mg Hydralazine HCl (Hydralazine Inj 20 Mg/Ml Vial) 10 mg IV X1 ONE Stop: 05/10/24 16:17 Last Admin: 05/10/24 17:11 Dose: 10 mg Sodium Chloride (Ns) 1,000 mls @ 999 mls/hr IV .Q1H1M ONE Stop: 05/10/24 12:14 Last Infusion: 05/10/24 12:30 Dose: Infused Ceftriaxone Sodium/Dextrose (Rocephin/D5w 1gm Iv Premix) 50 mls @ 100 mls/hr IV X1 ONE Stop: 05/10/24 11:44 Last Infusion: 05/10/24 12:32 Dose: Infused Magnesium Sulfate (Magnesium Sulfate Ivpb) 2 gm in 50 mls @ 25 mls/hr IV X1 ONE Stop: 05/10/24 13:16 Last Admin: 05/10/24 14:07 Dose: Not Given Acetaminophen (Ofirmev Inj) 1,000 mg in 100 mls @ 250 mls/hr IV X1 ONE Stop: 05/10/24 12:29 Last Infusion: 05/10/24 13:14 Dose: Infused Magnesium Sulfate (Magnesium Sulfate Ivpb) 2 gm in 50 mls @ 25 mls/hr IV X1 ONE Stop: 05/10/24 14:29 Last Infusion: 05/10/24 14:40 Dose: Infused Ketorolac Tromethamine (Ketorolac Inj 30 Mg/Ml Vial) 15 mg IVP X1 ONE Stop: 05/10/24 11:14 Last Admin: 05/10/24 11:29 Dose: Not Given Labetalol HCl (Labetalol Inj 5 Mg/Ml Vial 20 Ml) 20 mg IVP X1 ONE Stop: 05/10/24 16:17 Last Admin: 05/10/24 17:11 Dose: 20 mg Methylprednisolone Sodium Succinate (Methylprednisolone Sod Succ 62.5 Mg/Ml 2ml Vial) 125 mg IVP X1 ONE Stop: 05/10/24 11:18 Last Admin: 05/10/24 11:46 Dose: 125 mg Nitroglycerin (Nitroglycerin Oint 2% 1 Inch Packet) 2 inch TOP X1 ONE Stop: 05/10/24 12:16 Last Admin: 05/10/24 12:46 Dose: 2 inch Assessment & Plan Plan A 54-year-old male with past medical history of insulin-dependent diabetes mellitus, CAD, HFpEF, CVA with b/l endarterectomy, pulmonary embolism on Eliquis, hypertension, obstructive sleep apnea, hypertension, OHS/CAROLYN, cirrhosis, recent hospital admission 2 weeks ago for CHF exacerbation and left groin abscess presented to the ED after family found patient on the floor. Initially per ED he presented with altered mental status. However was able to regain consciousness after some time while on BiPAP. Able to follow simple commands. Patient being admitted for AHRF 2/2 sepsis 2/2 cellulitis. #AHRF 2/2 sepsis Ddx: He has history of CAROLYN/OHS, with noncompliance of any CPAP machine at home. 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 Presented to ED saturating at 84% on room air. Subsequently started on oxime mask high flow and progressed to BiPAP. Now saturating 97-98% on 10 L. Chest x-ray negative for any acute changes. Revealing moderate CHF. -Continue BiPAP at bedtime ? DuoNeb treatment as needed ? Status post methylprednisone 125 mg x 1 ? Continuous pulse ox monitoring #Sepsis 2/2 cellulitis Most likely abscess --local pain in left groin, tenderness, warmth, swelling, oozing. SIRS 4/4. Received 1 L bolus normal saline in ED. Pro-Angelo elevated 12, normal lactic acid 0.9 ? Blood cultures pending ? Start IV vancomycin ? Start IV Zosyn ? Acetaminophen as needed for fever--per rectum until patient off of BiPAP ? Did not receive sepsis protocol fluids. Concern for worsening hypertension and pulmonary edema ?Dr. Haney consulted??planning for incision and drainage once blood sugars controlled #Hypertensive emergency Initial blood pressures at the time of presentation to the ED is 180/102 mmHg. Patient was given a dose of hydralazine 10 Mg and nitroglycerin topical patch. Despite those, blood pressures are still elevated so patient was started on nicardipine drip 5 Mg per earlene -Hydralazine 10mg IV q6hr PRN -labetalol 10 IV q6hr PRN ? Restart home medication metoprolol succinate 100 p.o. daily ?Continue monitoring blood pressure #Troponinemia 2/2 demand ischemia Most likely NSTEMI II related to underlying sepsis vs NSTEMI 1 as patient does have history of CAD. However unlikely as troponins are downtrending from 0.103 to 0.095. EKG shows no acute ischemic changes. -Continue monitoring for any changes #ZENY Creatinine elevated from baseline 0.9. Today creatinine 1.4. -Holding aggressive fluids for now due to concern of worsening CHF -avoid nephrotoxic agents -daily CMP #History HFpEF Most recent echo from 04/24/2024 shows EF 55-60%. At home patient takes bumetanide 1 mg p.o. twice daily and spironolactone 50 mg p.o. twice daily. BNP up trended from 1667 to 2201. Chest x-ray shows mild to moderate CHF. -strict INOs -low sodium diet -keep potassium >4, mag >2 -daily CBC, CMP #History of CAROLYN/OHS Unsure at this time patient is compliant with any CPAP machine at home. ? Start BiPAP at bedtime #Insulin-dependent type 2 diabetes On admission initial glucose 461. Last A1c 11.7 in October 2023. Patient takes Ozempic, 50 units insulin glargine, aspart sliding scale for diabetes at home. -Held home medications -Bedside blood glucose checks ACHS -Start insulin sliding scale -Carb consistent low diet -Diabetes education -A1c pending #Elevated CK Drug-induced versus prolonged immobilization. CK 284 upon presentation. ?Repeat CK at 8 PM ? If uptrending, will start patient on fluids #History hypertension ? Continue metoprolol 100 p.o. daily #History cirrhosis ? Follow-up outpatient #History PE -Resume apixaban 5 mg p.o. twice daily #History of CAD ? Resume atorvastatin 40 mg p.o. at bedtime Health maintenance: Dispo: AHRF, sepsis, pending I&D left groin DVT prophylaxis: SCDs CODE STATUS: Full code Diet: clear liquids The patient's management plan was discussed with my attending physician Dr. Whitfield and seniors Dr. Wharton/Dr. Sparrow. Luz Marina Keller, PGY-1 Attending Provider Attestation/Addendum I have examined the patient, reviewed labs and imaging findings, discussed the case with the resident(s), and reviewed entered orders. I agree with the plan of care as outlined in this note, with these additional summaries/recommendations: Patient is a 54-year-old male with a medical history of morbid obesity, HFpEF, CAD status post stent placement, CVA with bilateral enterectomy, history of PE on Eliquis, primary hypertension, CAROLYN, cirrhosis, uncontrolled diabetes mellitus type 2 who presented to [facility] emergency department on 05/10/2024 with chief complaint of altered mental status. Patient meets sepsis criteria. Febrile 101.5, P104, RR 28, WBC 21.8, and Pro- Angelo 12.01. Sepsis secondary to cellulitis +/- abscess formation. Blood cultures taken. CT of abdomen pelvis showed air densities in left groin extending into upper thigh. General surgery consulted and patient may require incision and drainage. Start IV Zosyn and vancomycin. Patient did not receive sepsis fluid protocol given history of CHF and fluid overload. Patient was also found to have acute hypoxic respiratory failure and currently on BiPAP. Patient has history of CAROLYN and okay to continue BiPAP overnight although if patient is not tolerating okay to take off. ABG reviewed. Patient noted to have hypertensive emergency and now much improved. Continue home goal-directed medical therapy for CHF and does not appear to be in CHF exacerbation at this time. Minimally elevated total creatinine kinase and no evidence of rhabdomyolysis at this time. Repeat level this evening. Resume home anticoagulation for history of DVT/PE. Dr. Whitfield
--- NOTE | 2024-05-10 18:39 | ESCONSULT_ITS ---
HPI Consult details Consult date: 05/10/24 Reason for consultation narrative: The patient was seen on consultation for an abscess over the left groin extending into the left thigh History of present illness: Patient is a morbidly obese white male who said that he has had pain in the groin for the past couple of days. He could not give any history because of the oxygen mask. He was admitted with a history of altered mental status and s epsis. He also has a acute respiratory failure with hypoxia. He has a history of generalized anasarca and chronic low back pain and diabetes mellitus which is poorly controlled. He also has a history of hypertension heart disease he has a history of COPD. It is very difficult to get information from the patient because he is not able to give definite history. Patient has a history of perianal cellulitis in the past Past Medical History Past Medical History NEUROLOGIC: Positive Neurological Disorders, Cerebrovascular Accident, Transient Ischemic Attacks (TIA) and Willis's Palsy; Negative Seizures CARDIAC: Positive Cardiac Disorders, Myocardial Infarction, Coronary Artery Disease, Atherosclerotic Heart Disease, Hypercholesterolemia, Congestive Heart Failure, Deep Vein Thrombosis and Hypertension RESPIRATORY: Positive Asthma and Pulmonary Embolism; Negative Chronic Obstructive Pulmonary Disease (COPD) or Pneumonia GASTROINTESTINAL: Positive Gastrointestinal Disorders and Obesity GENITOURINARY: Positive Genitourinary Disorders and Kidney Stones; Negative Renal Disease MUSCULOSKELETAL: Positive Musculoskeletal Disorders and Degenerative Disk Disease; Negative Bone Cancer, Carpal Tunnel Syndrome or Fractures ENDOCRINE: Positive Endocrine Disorders and Diabetes Mellitus Type 2; Negative Diabetes Mellitus Type 1 HEMATOLOGIC: Negative Blood Disorders or Sickle Cell Disease PSYCHO/SOCIAL: Positive Anxiety OTHER HISTORY: Positive Falls, Blood Transfusions, Blood Transfusion Reaction and Chicken Pox; Negative Autoimmune Disease, Anesthesia Reactions, Organ Transplant, MRSA, VRSA, Vancomycin-Resistant Enterococci, Clostridium Difficile or Cancer Family History FAMILY HISTORY: Positive Family Respiratory Disorders and Family Cardiac Disorders; Negative Family Neurologic Problems Surgical History SURGICAL: Positive Cardiac Surgery, Coronary Stent and Carotid Endarterectomy; Negative Ear Surgery, Abdominal Surgery, Joint Replacement, Amputation, Open Reduction Internal Fixation, Arthroscopy, Neurologic Surgery, Vasectomy or Organ Transplant Social History SMOKING STATUS: Current every day smoker SECOND HAND EXPOSURE: No ([id number] x 4 yrs) SUBSTANCE USE: does not use Meds Home Medications and Allergies Home Medications ?Medication ?Instructions ?Recorded ?Confirmed ?Type atorvastatin 40 mg tablet 40 mg PO HS 10/22/23 01/14/24 History hydrocodone 10 mg-acetaminophen 1 tab PO Q4H 10/22/23 01/14/24 History 325 mg tablet ipratropium 20 mcg-albuterol 100 2 puff inhalation Q8HR PRN 10/22/23 01/14/24 History mcg/actuation mist for inhalation Shortness Of Breath (Combivent Respimat) lorazepam 2 mg tablet 2 mg PO BID 10/22/23 01/14/24 History losartan 100 mg tablet 100 mg PO DAILY 10/22/23 01/14/24 History metoprolol succinate 100 mg 100 mg PO DAILY 10/22/23 01/14/24 History tablet,extended release 24 hr pregabalin 150 mg capsule 150 mg PO TID 10/22/23 01/14/24 History semaglutide 2 mg/dose (8 mg/3 mL) 2 mg subcut QWEEK 10/22/23 01/14/24 History subcutaneous pen injector (Ozempic) morphine 15 mg tablet,extended 15 mg PO QDAY PRN Pain 01/14/24 01/14/24 History release Allergies Allergy/AdvReac Type Severity Reaction Status Date / Time ketorolac Allergy Severe TONGUE Verified 07/26/23 22:55 SWELLS UP Exam Vital Signs Temp Pulse Resp BP Pulse Ox O2 Del Method O2 Flow Rate 100.5 F H 82 18 167/79 H 99 BiPAP 10 05/10/24 18:10 05/10/24 18:20 05/10/24 18:20 05/10/24 18:10 05/10/24 18:20 05/10/24 18:10 05/10/24 10:53 FiO2 35 05/10/24 18:20 Narrative Exam Physical examination revealed a morbidly obese white male who appeared to be at least 300 pounds. His vital signs revealed a temperature of 100.5 BP of 167/79 Routine Abdominal Exam Comments: Abdominal examination is negative Routine Extremities Exam Comments: Examination of the groin showed fair amount of induration and some swelling over the skin crease. It is tender on palpation but no drainage of any pus Results Results: Laboratory Laboratory Narrative: Patient's WBC showed leukocytosis around 20,000. Patient's glucose is 461 Results: Imaging Additional studies: CT scan showed presence of air in the left subcutaneous tissue in the groin extending into the medial aspect of the left thigh Assessment & Plan Additional Assessment Additional comments: Impression: Abscess over the left groin extending into the left thigh probably due to diabetic infection Poorly controlled diabetes Morbid obesity COPD Hypertension Altered mental status Sepsis Plan Plan: Patient will require incision and drainage of the abscess in the left groin control the blood sugar then we will consider performing the incision and drainage tomorrow. Thank you
[2024-05-10] MEDS: PIPER/TAZO 3.375 GM 50 ML IV (18:51)
--- NOTE | 2024-05-10 18:55 | PC.NURSE ---
Addendum entered by Dafne Syed RN 05/10/24 18:59: Also, informed Dr. Keller patient bp 167/79. Original Note: Called Dr. Keller informed her that patient needs up grade to be admitted to Tele floor, also informed her of temp. 100.5 at this time and is unable to take po medication do to being on bipap and very lethargic, per Dr. Keller she will change patient's admit to tele and review orders.
[2024-05-10] MEDS: VANCOMYCIN/NS 1 GM IVPB 200 ML IV (19:26)
--- NOTE | 2024-05-10 19:33 | PC.NURSE ---
Pt responsive to voice, pt Alert and responding appropriately to inquiries. Pt currently on bipap. [facility]
[2024-05-10] MEDS: INSULIN LISPRO (AdmeLOG) 1 UNIT/0.01 ML UNIT SC (21:31)
[2024-05-10] MEDS: LABETALOL INJ 5 MG/ML VIAL 20 ML 10 MG IVP ×2 (21:58→23:02)
[2024-05-10 22:52] LABS: Creatine Kinase 107 U/L (34-171)
[2024-05-11] VITALS (19 sets, daily range): BP systolic 113–182; BP diastolic 62–101; PULSE 80–102; RESP 12–26; TEMP 36.1–37; O2SAT 90–100
--- NOTE | 2024-05-11 02:32 | PC.NURSE ---
Addendum entered by Joel Jiang RN 05/11/24 02:37: Pt awake, GCS: 15, and answering questions appropriately. Pt states he remembers falling out of his wheelchair at home and the Paramedics bringing him to the hospital . Pt requested to have BiPAP removed at this time, and is was placed on 3L/NC. Pt tolerating NC at this time. Plan of care explained to the pt, and pt agrees with the current plan of care. Original Note: Pt awake, GCS: 15, and answering questions appropriately. Pt requested to have BiPAP removed, and is now placed on 3L/NC. Pt tolerating NC at this time. Plan of care explained to the pt, and pt agrees with the current plan of care.
[2024-05-11] MEDS: NIFEdipine XL 30 MG TABCR PO (04:53)
[2024-05-11] MEDS: PIPER/TAZO 3.375 GM 50 ML IV ×3 (05:00→21:32)
[2024-05-11] MEDS: hydrALAZINE INJ 20 MG/ML VIAL 10 MG IV (05:52)
[2024-05-11 06:21] LABS: Basophils % (Auto) 0 % (0-2.5); Eosinophils % (Auto) 0 % (0-10); Hematocrit 30.2 % (41.0-53.0); Hemoglobin 9.5 g/dL (13.5-16.0); Immature Granulocytes % (Auto) 1 % (0-0); Immature Granulocytes Auto 0.17 Thou/mm3 (0.00-0.00); Lymphocytes # (Auto) 0.5 Thou/mm3 (1.0-4.8); Lymphocytes % (Auto) 2 % (10-50); Mean Corpuscular HGB Conc 31.5 g/dl (31.0-37.0); Mean Corpuscular Hemoglobin 26.1 pg (25.0-35.0); Mean Corpuscular Volume 83 fL (80-100); Monocytes # (Auto) 1.9 Thou/mm3 (0.0-0.8); Monocytes % (Auto) 8 % (0-12); Neutrophils # (Auto) 20.7 Thou/mm3 (1.8-7.7); Neutrophils % (Auto) 89 % (37-80); Nucleated Red Blood Cell % 0 /100 WBC (0); Platelet Count 248 Thou/mm3 (140-440); RDW Standard Deviation 47.3 fL (35.1-43.9); Red Blood Count 3.64 Miln/mm3 (4.50-5.90); White Blood Count 23.3 Thou/mm3 (3.8-10.6)
[2024-05-11 06:48] LABS: Alanine Aminotransferase 16 U/L (10-49); Albumin, Serum 3.4 gm/dL (3.5-5.0); Albumin/Globulin Ratio 1.1 (1.2-2.2); Alkaline Phosphatase 146 U/L (46-116); Anion Gap 9 (7-16); Aspartate Amino Transferase 29 U/L (0-34); BUN/Creatinine Ratio 19 Ratio (12-20); Bilirubin,Total 0.2 mg/dL (0.3-1.2); Blood Urea Nitrogen 35 mg/dL (9-23); Calcium 8.8 mg/dL (8.3-10.6); Calcium (Corrected) 9.3 mg/dL (8.5-10.1); Carbon Dioxide 19.9 mMol/L (20.0-31.0); Chloride 102 mMol/L (98-107); Creatinine (Component) 1.8 mg/dL (0.6-1.3); Estimated Creatinine Clearance 65.1 mL/min (>60); Globulin 3.2 gm/dL (2.3-3.5); Glucose 400 mg/dL (74-106); Osmolality,Calculated 287 (275-295); Phosphorous 5.7 mg/dL (2.4-5.1); Potassium 4.1 mMol/L (3.4-5.1); Sodium 131 mMol/L (136-145); Total Protein 6.6 gm/dL (5.7-8.2); eGFR 44 See Note
--- NOTE | 2024-05-11 07:05 | PC.NURSE ---
Received report from Joel RN, pt comfortable sleeping safety assessment complete.
[2024-05-11 07:09] LABS: Glucose Estimated Average 344 mg/dL (80-131); Hemoglobin A1C 13.6 % Hgb (4.8-6.0)
[2024-05-11] MEDS: INSULIN LISPRO (AdmeLOG) 1 UNIT/0.01 ML UNIT SC ×4 (07:41→21:42)
--- NOTE | 2024-05-11 09:42 | ESOP_ITS ---
Date of Procedure 05/11/24 Pre Op Diagnosis Abscess left groin with anaerobic infection Post Op Diagnosis Same with necrosis of the subcutaneous tissue Procedure Incision and drainage of the abscess left thigh and groin and debridement of n ecrotic tissue. Findings Patient was found to have a thick purulent material over the groin which was cultured after the incision. And the wound was debrided because there was extensive unhealthy tissue as seen in diabetics Procedure Description Of the patient able to the operating room endotracheal anesthesia was given. He was kept on supine position. Then his left thigh and leg was frog-legged and the area was washed with ChloraPrep solution draped in a sterile manner. Timeout was performed. Then I made an incision over the left groin and thick purulent material came out. This was cultured. I extended the incision all the way up to the lateral portion where there was necrosis of the subcutaneous tissue. This was debrided extensively and washed out. I irrigated the saline to clean the wound. There was extension of air in the medial left thigh on the middle finger dissection to see if there is any more abscess but there was none. Wound was then extensively irrigated and packed with wet-to-dry fluffs. And patient tolerated the procedure well. Anesthesia GETA Pathology / specimen None Estimated Blood Loss 50 Surgeon Farzana Root MD Surgical Staff Operation Date: 05/11/24 08:45 <No data on this case meets the specified criteria>
--- NOTE | 2024-05-11 09:51 | SUR.PHASEI ---
0951 Patient arrived to recovery resting comfortably in bed, on oxygen 10L via oxy mask with an oral and nasopharyngeal airway in place, breathing unlabored, vital signs stable, dressing intact to left groin; wet to dry fluffs, medipore tape, no bleeding noted, 16F dacosta in place with leg secure; draining to gravity, lung sounds clear upon auscultation, bilateral radial pulses present when palapted, patient blood glucose 347, anesthesia provider aware; no new order, report received from Dr. Matute and Kendrick MATOS
--- NOTE | 2024-05-11 10:31 | PC.WOUND ---
Spoke with Dr. Haney, informed me of I&D done to groin today. Requesting eval for possible wound vac placement in AM tomorrow.
--- NOTE | 2024-05-11 10:32 | SUR.PHASEI ---
1029 Report given to Etta MATOS, patient meets discharge criteria from recovery, resting comfortably awake and talks with staff then drifts back to sleep, on oxygen 3L via oxy mask which is patient baseline oxygen level, dressing intact; no bleeding noted, Dr. Root stated if patient is to have bleeding to reinforce with fluffs and tape, made Etta MATOS aware of this, denies pain and nausea, urinary catheter in place; draining to gravity. 1032 Patient transported via bed to room 279 without incident, patient resting comfortably in bed with call light in reach when this card writer hand left patient room, Etta MATOS arrived and patient requesting ice chips
[2024-05-11] MEDS: INSULIN GLARGINE (Lantus) 5 UNIT/0.05 ML (PER 5 UNITS) 25 UNIT SC (11:05)
[2024-05-11] MEDS: METOPROLOL SUCCINATE XL 25 MG TABCR 100 MG PO (11:06)
--- NOTE | 2024-05-11 12:05 | PC.SS ---
Patient is alert/oriented. Patient resides alone. Patient was admitted for AMS. He needs assistance with ADL's. Patient states he has a wheelchair and a walker at home. Notes indicate he has CAROLYN. Patient states he does not use any respiratory devices at home. Notes indicate that patient has poorly controlled diabetes. Patient was already open to home health services for PT/nursing. Patient states he wants to continue services. He wasn't sure which home health facility. Patient states his walker is broken and needs a new one. SS discussed SNF as an option. Patient declined. Physician states patient will have an I & D today. Patient will need transport upon discharge. Patient's alt medical decision maker is his daughter, Kaylynn. His PCP: Dr Kevin.
[2024-05-11] MEDS: MORPHINE SULF INJ 10 MG/ML VIAL 2 MG IVP (12:29)
--- NOTE | 2024-05-11 13:43 | ESPR_ITS ---
<Statement entered by Jaquelin Sparrow MD - 05/12/24 19:14> I discussed with and supervised the global marketing intern physician who took care of this patient. I personally saw and examined the patient and discussed the assessment and plan with the entire medicine team, including my attending , I agree with most of the assessment and plan as documented below Jaquelin Sparrow M.D. PGY-2 Documentation for date of: 05/11/24 Subjective Subjective Interval history: Patient was seen and examined at bedside. Overnight patient was hypertensive with few episodes of systolic pressure reaching above 200. Night team started patient on hydralazine 10 mg IV x 1, nifedipine 30 mg x 1, labetalol 10 mg x 1, metoprolol 100 mg p.o. Med rec still pending, however started patient on home medication of metoprolol 100 mg daily. Preliminary blood cultures came back positive for gram-negative rods. Will stop vancomycin and continue with Zosyn for GNR and anaerobic coverage. Repeat blood cultures pending. Dr. Haney performed I&D of abscess located in left groin. Report stated there was thick purulent material and subcutaneous tissue necrosis. Area was extensively irrigated extensively irrigated and packed with wet-to-dry fluffs after debridement. Restart apixaban 5 mg p.o. twice daily which patient takes due to history of PE. Blood sugars continue to remain poorly controlled above 300. Start 25 units glargine and continue sliding scale. A1c at this admission 13.6. ZENY worsening with creatinine uptrending to 1.8 today. Patient continues to complain of severe pain 03/30--restart home pain regimen morphine 15 mg PO daily. continue BiPAP HS. Review of systems otherwise negative except what is mentioned above. Exam Vital Signs Temp Pulse Resp BP Pulse Ox O2 Del Method O2 Flow Rate 97.0 F 84 15 137/76 H 97 Nasal Cannula 3 05/11/24 12:00 05/11/24 12:00 05/11/24 12:00 05/11/24 12:00 05/11/24 12:00 05/11/24 12:00 05/11/24 12:00 FiO2 35 05/10/24 23:55 Narrative Exam General: morbid obese, irritable but responds to questions, able to follow the verbal commands HEENT: Normocephalic, atraumatic Heart: Regular rate and rhythm, no murmurs. Lungs: decreased breath sounds noted bilaterally in view of body habitus Abdomen: Soft,distended, nontender, positive bowel sounds. Severe tenderness noted in the left groin and thigh area, s/p I&D with packing Neurologic: Able to follow verbal commands, no gross neurological deficit, and patient able to move all 4 extremities. Extremities: Bilateral pitting 4+ pedal edema is noted Skin: No rash. Ecchymotic patch is noted on the abdomen right to the umbilicus. Objective Labs 05/12/24 04:27 05/12/24 04:27 Labs: Laboratory Results - last 24 hr 05/10/24 05/10/24 05/10/24 11:15 11:58 16:53 WBC RBC Hgb Hct MCV MCH MCHC RDW Std Deviation Plt Count Neut % (Auto) Lymph % (Auto) [place] % (Auto) Eos % (Auto) Baso % (Auto) Neut # (Auto) Lymph # (Auto) [place] # (Auto) Eos # (Auto) Baso # (Auto) Immature Gran # (Auto) Absolute Nucleated RBC Immature Gran % Nucleated RBC % Sodium Potassium Chloride Carbon Dioxide Anion Gap BUN Creatinine Estim Creat Clear Calc eGFR BUN/Creatinine Ratio Glucose Estimated Ave Glu mg/dL Hemoglobin A1c Calculated Osmolality Calcium Corrected Calcium Phosphorus Magnesium Total Bilirubin AST ALT Alkaline Phosphatase Total Creatine Kinase 284 H Cancelled Troponin I 0.095 H* B-Natriuretic Peptide 2201 H* Total Protein Albumin Globulin Albumin/Globulin Ratio Urine Opiates Screen Positive A Urine Fentanyl Screen Negative Ur Barbiturates Screen Negative U Amphetamin/Meth Scrn Negative U Benzodiazepines Scrn Negative U Cocaine Metab Screen Negative U Marijuana (THC) Screen Positive A 05/10/24 05/11/24 22:03 05:50 WBC 23.3 H RBC 3.64 L Hgb 9.5 L Hct 30.2 L MCV 83 MCH 26.1 MCHC 31.5 RDW Std Deviation 47.3 H Plt Count 248 D Neut % (Auto) 89 H Lymph % (Auto) 2 L [place] % (Auto) 8 Eos % (Auto) 0 Baso % (Auto) 0 Neut # (Auto) 20.7 H Lymph # (Auto) 0.5 L [place] # (Auto) 1.9 H Eos # (Auto) 0.0 Baso # (Auto) 0.0 Immature Gran # (Auto) 0.17 H Absolute Nucleated RBC 0.00 Immature Gran % 1 H Nucleated RBC % 0 Sodium 131 L Potassium 4.1 Chloride 102 Carbon Dioxide 19.9 L Anion Gap 9 BUN 35 H Creatinine 1.8 H Estim Creat Clear Calc 65.1 eGFR 44 L BUN/Creatinine Ratio [address] Glu mg/dL 344 H Hemoglobin A1c 13.6 H Calculated Osmolality 287 Calcium 8.8 Corrected Calcium 9.3 Phosphorus 5.7 H Magnesium 2.0 Total Bilirubin 0.2 L AST 29 ALT 16 Alkaline Phosphatase 146 H Total Creatine Kinase 107 D Troponin I B-Natriuretic Peptide Total Protein 6.6 Albumin 3.4 L Globulin 3.2 Albumin/Globulin Ratio 1.1 L Urine Opiates Screen Urine Fentanyl Screen Ur Barbiturates Screen U Amphetamin/Meth Scrn U Benzodiazepines Scrn U Cocaine Metab Screen U Marijuana (THC) Screen ABG Interpretation ABG results: 05/10/24 12:26 ABG pH 7.34 L ABG pCO2 43 ABG pO2 127 H ABG HCO3 23 ABG O2 Saturation 100 H ABG Base Excess -2 Quality Measures Quality Measures sepsis Current suspected stage: sepsis Possible source: unknown Blood cultures ordered: completed in ED Antibiotic ordered: Yes Assessment & Plan Assessment Current Active Medications: Generic Name Dose Route Start Last Admin Trade Name Freq PRN Reason Stop Dose Admin Acetaminophen 650 mg 05/10/24 19:15 Acetaminophen Supp 650 Mg Supp OK 06/09/24 19:14 Q6HR PRN Fever > 100.3 Protocol Acetaminophen 650 mg 05/11/24 11:28 Acetaminophen 325 Mg Tablet PO 06/09/24 17:37 Q6H PRN Fever >100.3 or pain(1-3) Dextrose 25 ml 05/10/24 19:30 Dextrose 50%-Water Inj 50 Ml Syringe IV 06/09/24 19:29 Q15MIN PRN BG 50-70 responsive npo pt Dextrose 50 ml 05/10/24 19:30 Dextrose 50%-Water Inj 50 Ml Syringe IV 06/09/24 19:29 Q15MIN PRN BG <50 OR BG <70 & pt unresponsive Glucagon 1 mg 05/10/24 19:30 Glucagon Inj 1 Mg Vial IM Q15MIN PRN BG <70, and no IV access Hydralazine HCl 10 mg 05/10/24 19:11 05/11/24 05:52 Hydralazine Inj 20 Mg/Ml Vial IV 06/09/24 19:10 10 mg Q6H PRN Administration High blood pressure Piperacillin/Tazobactam/Dextrose 50 mls @ 12.5 mls/hr 05/10/24 22:00 05/11/24 05:00 Zosyn IV 05/17/24 21:59 12.5 mls/hr Q8HR RINA Administration Promethazine HCl 12.5 mg/ 50.5 mls @ 2.5 mls/min 05/11/24 09:28 Sodium Chloride IV X1 PRN NAUSEA OR VOMITING Insulin Glargine 25 unit 05/11/24 09:00 05/11/24 11:05 Insulin Glargine (Lantus) 5 Unit/0.05 Ml (Per 5 Units) SC 06/10/24 08:59 25 unit QDAY RINA Administration Insulin Human Lispro 0 unit 05/10/24 21:00 05/11/24 12:30 Insulin Lispro (Admelog) 1 Unit/0.01 Ml Unit SC 06/09/24 20:59 8 unit ACHS RINA Administration Protocol Labetalol HCl 10 mg 05/10/24 19:11 05/10/24 21:58 Labetalol Inj 5 Mg/Ml Vial 20 Ml IVP 06/09/24 19:10 10 mg Q6H PRN Administration High blood pressure Metoprolol Succinate 100 mg 05/10/24 19:00 05/11/24 11:06 Metoprolol Succinate Xl 25 Mg Tabcr PO 06/09/24 18:59 100 mg QDAY RINA Administration Midazolam HCl 1 mg 05/11/24 09:28 Midazolam Inj 1 Mg/Ml Vial 2 Ml IV 05/12/24 09:27 Q5MIN PRN ANXIETY Morphine Sulfate 4 mg 05/11/24 12:23 Morphine Sulf Inj 10 Mg/Ml Vial IVP 05/16/24 12:22 Q8HR PRN abdominal pain Ondansetron HCl 4 mg 05/10/24 17:38 Ondansetron Inj 2 Mg/Ml Inj 2 Ml IV 06/09/24 17:37 Q6H PRN NAUSEA OR VOMITING Protocol Plan A 54-year-old male with past medical history of insulin-dependent diabetes mellitus, CAD, HFpEF, CVA with b/l endarterectomy, pulmonary embolism on Eliquis, hypertension, obstructive sleep apnea, hypertension, OHS/CAROLYN, cirrhosis, recent hospital admission 2 weeks ago for CHF exacerbation and left groin abscess presented to the ED after family found patient on the floor. Initially per ED he presented with altered mental status. However was able to regain consciousness after some time while on BiPAP. Able to follow simple commands. Patient being admitted for AHRF 2/2 sepsis 2/2 cellulitis. #AHRF 2/2 sepsis Ddx: He has history of CAROLYN/OHS, with noncompliance of any CPAP machine at home. Possibly having exacerbation with frequent apneic episodes vs heart failure exacerbation vs overuse narcotics leading to [employer]PER[employer] depression Patient has history of CHF, questionable oxygen use at home. Presented to ED saturating at 84% on room air. Subsequently started on oxime mask high flow and progressed to BiPAP. Now saturating 97-98% on 10 L. Chest x-ray negative for any acute changes. Revealing moderate CHF. -Continue BiPAP at bedtime ? DuoNeb treatment as needed ? Continuous pulse ox monitoring #Sepsis 2/2 GNR bacteremia Most likely abscess --local pain in left groin, tenderness, warmth, swelling, oozing. SIRS 4/4. Received 1 L bolus normal saline in ED. Pro-Angelo elevated 12, normal lactic acid 0.9 ? Blood cultures positive for GNR -Pending speciation ? Stop IV vancomycin ? Continue IV Zosyn ? Acetaminophen as needed for fever ? Did not receive sepsis protocol fluids. Concern for worsening hypertension and pulmonary edema ?Dr. Haney consulted??s/p I&S. Noticeable thick purulent material drained, subcutaneous tissue necrosis. Area thoroughly irrigated and packed. #Hypertensive emergency Initial blood pressures at the time of presentation to the ED is 180/102 mmHg. Patient was given a dose of hydralazine 10 Mg and nitroglycerin topical patch. Despite those, blood pressures are still elevated so patient was started on nicardipine drip 5 Mg per earlene -Hydralazine 10mg IV q6hr PRN -labetalol 10 IV q6hr PRN ? Restart home medication metoprolol succinate 100 p.o. daily ?Continue monitoring blood pressure #Troponinemia 2/2 demand ischemia-resolved Most likely NSTEMI II related to underlying sepsis vs NSTEMI 1 as patient does have history of CAD. However unlikely as troponins are downtrending from 0.103 to 0.095. EKG shows no acute ischemic changes. -Continue monitoring for any changes #ZENY Creatinine elevated from baseline 0.9. Today creatinine 1.8 -Holding aggressive fluids for now due to concern of worsening CHF -avoid nephrotoxic agents -daily CMP #History HFpEF Most recent echo from 04/24/2024 shows EF 55-60%. At home patient takes bumetanide 1 mg p.o. twice daily and spironolactone 50 mg p.o. twice daily. BNP up trended from 1667 to 2201. Chest x-ray shows mild to moderate CHF. -strict INOs -low sodium diet -keep potassium >4, mag >2 -daily CBC, CMP #History of CAROLYN/OHS Unsure at this time patient is compliant with any CPAP machine at home. ? Start BiPAP at bedtime #Insulin-dependent type 2 diabetes On admission initial glucose 461. Last A1c 11.7 in October 2023. Patient takes Ozempic, 50 units insulin glargine, aspart sliding scale for diabetes at home. -Held home medications -Bedside blood glucose checks ACHS -25 units glargine -Continue insulin sliding scale -Carb consistent low diet -Diabetes education -A1c 13.6 #Elevated CK-resolved Drug-induced versus prolonged immobilization. CK 284 upon presentation. ?Repeat CK at 8 PM ? If uptrending, will start patient on fluids #History hypertension ? Continue metoprolol 100 p.o. daily #History cirrhosis ? Follow-up outpatient #History PE -Resume apixaban 5 mg p.o. twice daily #History of CAD ? Resume atorvastatin 40 mg p.o. at bedtime Health maintenance: Dispo: AHRF, sepsis, s/p I&D left groin DVT prophylaxis: Apixaban 5 mg p.o. twice daily CODE STATUS: Full code Diet: clear liquids The patient's management plan was discussed with my attending physician Dr. Whitfield and seniors Dr. Gill/Dr. Sparrow. Luz Marina Keller, PGY-1 Attending Provider Attestation/Addendum I have examined the patient, reviewed labs and imaging findings, discussed the case with the resident(s), and reviewed entered orders. I agree with the plan of care as outlined in this note, with these additional summaries/recommendations: Patient seen at bedside. No acute overnight events. Today patient underwent incision and drainage of left thigh abscess and groin and debridement of necrotic tissue. Abscess cultures were taken and pending. Blood cultures growing gram-negative rods in both aerobic and anaerobic bottles indicating bacteremia. Continue IV antibiotics and pain management. Patient is endorsing severe pain at bedside. Blood pressure continues to be uncontrolled and we will uptitrate regimen as tolerated. Patient developed acute kidney injury and may be secondary to medications. Avoid nephrotoxic agents and renally dose medications. Repeat renal panel in AM. Continue BiPAP at night for CAROLYN. Continue basal and bolus insulin for uncontrolled diabetes mellitus type 2. Strict blood sugar control in the setting of acute infection. Diabetic diet. Dr. Whitfield
[2024-05-11] MEDS: APIXABAN 2.5 MG TABLET 5 MG PO ×2 (13:57→21:30)
[2024-05-11 14:09] LABS: Respiratory Syncytial Virus Ag Negative (Negative)
--- NOTE | 2024-05-11 14:21 | PC.NURSE ---
Pt is lying down with eyes closed, safety assessment done report given to Etta MATOS
[2024-05-11] MEDS: Morphine Sulf 15 MG TABCR PO (14:44)
--- NOTE | 2024-05-11 15:07 | PD.ANESPROG ---
Documentation for date of: 05/11/24 ANESTHESIA NOTE: Patient had GETA for emergent L groin I & D this morning as add on case. Pre-op, he has significant hx including DC, multiple CVAs (18 per pt) with h/o L sided weakness and now mostly bed and wheel chair bound with limited ambulation using walker, HTN, DM, ZENY, CAROLYN, morbid obesity, also h/o blood clot in his leg and taking Eliquis. He had foul smelling, erythematous L groin. He has been running very hypertensive, SBP 180-200s on the floor and has been given multiple anti-HTN meds. He has slight Troponemia and markedly elevated BNP also. He had pitting edema b/l legs and swollen b/l hands. He received IV Lasix yesterday. He has also been hyperglycemic and received Insulin this morning pre-op on the floor. Given his significant hx and emergent surgery, he was educated about possible complications including intra-op/post op DC and CVA, pulmonary edema, post op ICU admission, and he agreed to proceed. He did well intra-op, intubated and extubated uneventfully. On arrival to OR, his HR was 110s sinus tachy and SBP 200s, no acute sx. I controlled his HR and BP with IV Esmolol and Labetolol intra-op and he responded well to it. He did well in PACU and was later transferred out. SBP came down to 130s an HR 80s sinus after IV Labetolol intra-op. Dami Matute MD Anesthesia Progress Note Progress Note Most recent Vital Signs: Last Vital Signs Temp 97.0 F 05/11/24 12:00 Pulse 84 05/11/24 12:00 Resp 15 05/11/24 12:00 BP 137/76 H 05/11/24 12:00 Pulse Ox 97 05/11/24 12:00 O2 Del Method Nasal Cannula 05/11/24 12:00 O2 Flow Rate 3 05/11/24 12:00 FiO2 35 05/10/24 23:55
[2024-05-11] MEDS: MORPHINE SULF INJ 10 MG/ML VIAL 4 MG IVP ×2 (15:44→23:45)
--- NOTE | 2024-05-11 20:42 | PC.NURSE ---
Addendum entered by Cooper Lainez RN 05/11/24 20:44: Dr. Silva will come to floor. Original Note: Patient requesting NORCO for pain. SHAWNA Gamboa will attempt to call hospitalists.
[2024-05-11] MEDS: HYDROcodone/APAP 5/325 TABLET 1 TAB PO (21:30)
[2024-05-12] VITALS (13 sets, daily range): BP systolic 146–177; BP diastolic 80–93; PULSE 75–89; RESP 15–23; TEMP 36.1–37.1; O2SAT 90–96; BMI 47.2; BMI 47.4
--- NOTE | 2024-05-12 03:58 | PC.NURSE ---
Addendum entered by Cooper Lainez RN 05/12/24 04:18: 0418 - Waiting for Dr. Sanchez to put order. SHAWNA Gamboa contacted Dr. Sanchez and he said he will put it in. Addendum entered by Cooper Lainez RN 05/12/24 04:01: Dr. Sanchez made aware and he will put an order in. Original Note: Patient c/o pain. Patient requesting NORCO. SHAWNA Gamboa will call hospitalists.
[2024-05-12] MEDS: HYDROcodone/APAP 5/325 TABLET 1 TAB PO (04:37)
[2024-05-12] MEDS: PIPER/TAZO 3.375 GM 50 ML IV ×3 (05:05→23:19)
[2024-05-12 05:58] LABS: Basophils % (Auto) 0 % (0-2.5); Eosinophils # (Auto) 0.1 Thou/mm3 (0.0-0.5); Eosinophils % (Auto) 1 % (0-10); Hematocrit 31.2 % (41.0-53.0); Hemoglobin 9.6 g/dL (13.5-16.0); Immature Granulocytes % (Auto) 1 % (0-0); Immature Granulocytes Auto 0.34 Thou/mm3 (0.00-0.00); Lymphocytes # (Auto) 0.6 Thou/mm3 (1.0-4.8); Lymphocytes % (Auto) 3 % (10-50); Mean Corpuscular HGB Conc 30.8 g/dl (31.0-37.0); Mean Corpuscular Hemoglobin 25.6 pg (25.0-35.0); Mean Corpuscular Volume 83 fL (80-100); Monocytes # (Auto) 2.1 Thou/mm3 (0.0-0.8); Monocytes % (Auto) 9 % (0-12); Neutrophils # (Auto) 20.5 Thou/mm3 (1.8-7.7); Neutrophils % (Auto) 86 % (37-80); Nucleated Red Blood Cell # 0.02 Thou/mm3 (0.00-0.00); Nucleated Red Blood Cell % 0 /100 WBC (0); Platelet Count 289 Thou/mm3 (140-440); RDW Standard Deviation 49.1 fL (35.1-43.9); Red Blood Count 3.75 Miln/mm3 (4.50-5.90); White Blood Count 23.7 Thou/mm3 (3.8-10.6)
[2024-05-12 06:27] LABS: Alanine Aminotransferase 24 U/L (10-49); Albumin, Serum 3.6 gm/dL (3.5-5.0); Alkaline Phosphatase 161 U/L (46-116); Anion Gap 9 (7-16); Aspartate Amino Transferase 35 U/L (0-34); BUN/Creatinine Ratio 23 Ratio (12-20); Bilirubin,Total 0.2 mg/dL (0.3-1.2); Blood Urea Nitrogen 53 mg/dL (9-23); Calcium 9.2 mg/dL (8.3-10.6); Calcium (Corrected) 9.5 mg/dL (8.5-10.1); Carbon Dioxide 22.8 mMol/L (20.0-31.0); Chloride 100 mMol/L (98-107); Creatinine (Component) 2.3 mg/dL (0.6-1.3); Globulin 3.6 gm/dL (2.3-3.5); Glucose 361 mg/dL (74-106); Osmolality,Calculated 293 (275-295); Potassium 4.6 mMol/L (3.4-5.1); Sodium 132 mMol/L (136-145); Total Protein 7.2 gm/dL (5.7-8.2); eGFR 33 See Note
--- NOTE | 2024-05-12 06:40 | PC.NURSE ---
SHAWNA Gamboa attempted to notify hospitalist that patient's blood culture returned with gram negative rods. Hospitalists did not answer calls x2.
--- NOTE | 2024-05-12 07:30 | PC.NURSE ---
Pt in bed with complaints of pain, medication due in 15 mins, pt safety assesment complete.
[2024-05-12] MEDS: MORPHINE SULF INJ 10 MG/ML VIAL 4 MG IVP ×2 (07:47→17:36)
[2024-05-12] MEDS: METOPROLOL SUCCINATE XL 25 MG TABCR 100 MG PO (08:12)
[2024-05-12] MEDS: INSULIN GLARGINE (Lantus) 5 UNIT/0.05 ML (PER 5 UNITS) 40 UNIT SC (08:13)
[2024-05-12] MEDS: INSULIN LISPRO (AdmeLOG) 1 UNIT/0.01 ML UNIT SC ×4 (08:13→21:41)
[2024-05-12 09:52] LABS: Vancomycin,Trough 6.5 mcg/mL (5.0-10.0)
[2024-05-12] MEDS: amLODIPine BESYLATE 5 MG TABLET PO (10:02)
[2024-05-12] MEDS: SODIUM CHLORIDE 0.9% 1000 ML 1,000 ML 999 ML IV (10:02)
[2024-05-12] MEDS: INSULIN GLARGINE (Lantus) 5 UNIT/0.05 ML (PER 5 UNITS) 10 UNIT SC (11:37)
[2024-05-12] MEDS: VANCOMYCIN/D5W 1,250 MG IVPB 250 ML 120 MG IV (11:54)
[2024-05-12] MEDS: hydrALAZINE INJ 20 MG/ML VIAL 10 MG IV (11:54)
--- NOTE | 2024-05-12 12:06 | PC.SS ---
Addendum entered by Guadalupe Sarkar 05/12/24 16:01: F/u: Patient will have wound vac placed. Patient is currently on i.v. antibiotics. SS will discuss SNF vs HH. However, he has refused SNF multiple times as well as previous visits. Patient states [facility]. PCP: Dr. Kevin. Original Note: Follow up note: SS spoke to wound care nurse and patient will now need wound vac on left groin area. Patient resides alone. Yesterday SS inquired about SNF and patient declined. SS will discuss SNF again as an option. Alternate option would be HH and o/p wound clinic. SS will follow up with patient.
--- NOTE | 2024-05-12 13:19 | PD.RESPRO ---
Documentation for date of: 05/12/24 Subjective Subjective Interval history: Patient was seen and examined at bedside. No acute events overnight. S/p I&D of left inguinal abscess. Wound care has been consulted for daily dressings and placement of wound VAC. Patient continues to complain of severe pain 10 out of 10 even after having started 4 mg IV morphine every 8 hours as needed. He endorses orthopnea, no chest pain, no fever. During the night patient has not been using BiPAP machine and does not need nasal cannula. Oxygen saturation 92-93% on room air. Patient currently on IV Zosyn after blood cultures grew gram-negative rods, however we will restart IV Vanco as wound/tissue culture positive for GPC. Blood pressure improved 147/80 but still having multiple episodes of hypertension occasionally with systolic reaching 170s. Start patient on amlodipine 5mg p.o. daily and continue with metoprolol succinate 100 mg p.o. daily. Blood sugar remain poorly controlled since admission, increase glargine to 50 units insulin and continue sliding scale. ZENY has worsened with creatinine elevated at 2.3, nephrology was consulted. Today administered 1 L bolus fluids as he did not receive fluids per sepsis protocol. Repeat renal panel for afternoon is pending. Questionable if worsening ZENY is due to inadequate fluids vs cardiorenal syndrome. WBC slightly up trended 23. Patient will most likely remain in hospital over the weekend. Review of systems otherwise negative except what is mentioned above. Exam Vital Signs Temp Pulse Resp BP Pulse Ox O2 Del Method O2 Flow Rate 97.6 F 75 15 177/85 H 90 L Room Air 2 05/12/24 12:00 05/12/24 12:00 05/12/24 12:00 05/12/24 12:00 05/12/24 12:00 05/12/24 12:00 05/12/24 04:00 FiO2 35 05/12/24 04:00 Narrative Exam General: morbid obese, irritable but responds to questions, able to follow the verbal commands HEENT: Normocephalic, atraumatic Heart: Regular rate and rhythm, no murmurs. Lungs: decreased breath sounds noted bilaterally in view of body habitus Abdomen: Soft,distended, nontender, positive bowel sounds. Severe tenderness noted in the left groin and thigh area, s/p I&D with packing Neurologic: Able to follow verbal commands, no gross neurological deficit, and patient able to move all 4 extremities. Extremities: Bilateral pitting 4+ pedal edema is noted Skin: No rash. Ecchymotic patch is noted on the abdomen right to the umbilicus. Objective Labs 05/14/24 05:37 05/14/24 05:37 Labs: Laboratory Results - last 24 hr 05/10/24 05/12/24 05/12/24 13:20 04:27 08:44 WBC 23.7 H RBC 3.75 L Hgb 9.6 L Hct 31.2 L MCV 83 MCH 25.6 MCHC 30.8 L RDW Std Deviation 49.1 H Plt Count 289 D Neut % (Auto) 86 H Lymph % (Auto) 3 L [place] % (Auto) 9 Eos % (Auto) 1 Baso % (Auto) 0 Neut # (Auto) 20.5 H Lymph # (Auto) 0.6 L [place] # (Auto) 2.1 H Eos # (Auto) 0.1 Baso # (Auto) 0.0 Immature Gran # (Auto) 0.34 H Absolute Nucleated RBC 0.02 H Immature Gran % 1 H Nucleated RBC % 0 Sodium 132 L Potassium 4.6 D Chloride 100 Carbon Dioxide 22.8 Anion Gap 9 BUN 53 H Creatinine 2.3 H D Estim Creat Clear Calc 51.0 L eGFR 33 L BUN/Creatinine Ratio 23 H Glucose 361 H Calculated Osmolality 293 Calcium 9.2 Corrected Calcium 9.5 Total Bilirubin 0.2 L AST 35 H ALT 24 Alkaline Phosphatase 161 H Total Protein 7.2 Albumin 3.6 Globulin 3.6 H Albumin/Globulin Ratio 1.0 L Vancomycin Trough 6.5 RSV Rapid Negative ABG Interpretation ABG results: 05/10/24 12:26 ABG pH 7.34 L ABG pCO2 43 ABG pO2 127 H ABG HCO3 23 ABG O2 Saturation 100 H ABG Base Excess -2 Quality Measures Quality Measures sepsis Current suspected stage: sepsis Possible source: unknown Blood cultures ordered: completed in ED Antibiotic ordered: Yes Assessment & Plan Assessment Current Active Medications: Generic Name Dose Route Start Last Admin Trade Name Freq PRN Reason Stop Dose Admin Acetaminophen 650 mg 05/11/24 11:28 Acetaminophen 325 Mg Tablet PO 06/09/24 17:37 Q6H PRN Fever >100.3 or pain(1-3) Amlodipine Besylate 5 mg 05/12/24 09:00 05/12/24 10:02 Amlodipine Besylate 5 Mg Tablet PO 06/11/24 08:59 5 mg QDAY RINA Administration Apixaban 5 mg 05/11/24 14:00 05/12/24 10:08 Apixaban 2.5 Mg Tablet PO 06/01/24 13:59 Not Given BID RINA Atorvastatin Calcium 40 mg 05/12/24 21:00 Atorvastatin Calcium 20 Mg Tablet PO 06/11/24 20:59 HS RINA Dextrose 25 ml 05/10/24 19:30 Dextrose 50%-Water Inj 50 Ml Syringe IV 06/09/24 19:29 Q15MIN PRN BG 50-70 responsive npo pt Dextrose 50 ml 05/10/24 19:30 Dextrose 50%-Water Inj 50 Ml Syringe IV 06/09/24 19:29 Q15MIN PRN BG <50 OR BG <70 & pt unresponsive Glucagon 1 mg 05/10/24 19:30 Glucagon Inj 1 Mg Vial IM Q15MIN PRN BG <70, and no IV access Hydralazine HCl 10 mg 05/10/24 19:11 05/12/24 11:54 Hydralazine Inj 20 Mg/Ml Vial IV 06/09/24 19:10 10 mg Q6H PRN Administration High blood pressure Piperacillin/Tazobactam/Dextrose 50 mls @ 12.5 mls/hr 05/10/24 22:00 05/12/24 05:05 Zosyn IV 05/17/24 21:59 12.5 mls/hr Q8HR RINA Administration Promethazine HCl 12.5 mg/ 50.5 mls @ 2.5 mls/min 05/11/24 09:28 Sodium Chloride IV X1 PRN NAUSEA OR VOMITING Vancomycin/Sodium Chloride 200 mls @ 120 mls/hr 05/12/24 22:00 Vancomycin/Ns 1 Gm Ivpb IV 05/19/24 21:59 Q12H RINA Protocol Vancomycin HCl/Dextrose 250 mls @ 120 mls/hr 05/12/24 11:30 05/12/24 11:54 Vancomycin/D5w 1,250 Mg Ivpb IV 05/12/24 13:34 120 mls/hr X1 ONE Administration Insulin Glargine 50 unit 05/13/24 09:30 Insulin Glargine (Lantus) 5 Unit/0.05 Ml (Per 5 Units) SC 06/12/24 09:29 QDAY RINA Insulin Human Lispro 0 unit 05/12/24 10:33 05/12/24 11:38 Insulin Lispro (Admelog) 1 Unit/0.01 Ml Unit SC 06/09/24 20:59 16 unit ACHS RINA Administration Protocol Labetalol HCl 10 mg 05/10/24 19:11 05/10/24 21:58 Labetalol Inj 5 Mg/Ml Vial 20 Ml IVP 06/09/24 19:10 10 mg Q6H PRN Administration High blood pressure Metoprolol Succinate 100 mg 05/10/24 19:00 05/12/24 08:12 Metoprolol Succinate Xl 25 Mg Tabcr PO 06/09/24 18:59 100 mg QDAY RINA Administration Morphine Sulfate 4 mg 05/11/24 12:23 05/12/24 07:47 Morphine Sulf Inj 10 Mg/Ml Vial IVP 05/16/24 12:22 4 mg Q8HR PRN Administration abdominal pain Ondansetron HCl 4 mg 05/10/24 17:38 Ondansetron Inj 2 Mg/Ml Inj 2 Ml IV 06/09/24 17:37 Q6H PRN NAUSEA OR VOMITING Protocol Pharmacy Consult 1 each 05/12/24 11:20 Vancomycin Pharmacy To Dose 1 Each Each IV 06/11/24 11:19 QDAY PRN PROTOCOL Plan A 54-year-old male with past medical history of insulin-dependent diabetes mellitus, CAD, HFpEF, CVA with b/l endarterectomy, pulmonary embolism on Eliquis, hypertension, obstructive sleep apnea, hypertension, OHS/CAROLYN, cirrhosis, recent hospital admission 2 weeks ago for CHF exacerbation and left groin abscess presented to the ED after family found patient on the floor. Initially per ED he presented with altered mental status. However was able to regain consciousness after some time while on BiPAP. Able to follow simple commands. Patient being admitted for AHRF 2/2 sepsis 2/2 cellulitis. #AHRF 2/2 sepsis-resolved Ddx: He has history of CAROLYN/OHS, with noncompliance of any CPAP machine at home. Possibly having exacerbation with frequent apneic episodes vs heart failure exacerbation vs overuse narcotics leading to [employer] depression Patient has history of CHF, questionable oxygen use at home. Presented to ED saturating at 84% on room air. Subsequently started on oxime mask high flow and progressed to BiPAP. Now saturating 97-98% on 10 L. Chest x-ray negative for any acute changes. Revealing moderate CHF. -Continue BiPAP at bedtime ? DuoNeb treatment as needed ? Continuous pulse ox monitoring #Sepsis 2/2 GNR bacteremia Most likely abscess --local pain in left groin, tenderness, warmth, swelling, oozing. SIRS 4/4. Received 1 L bolus normal saline in ED. Pro-Angelo elevated 12, normal lactic acid 0.9 ? Blood cultures positive for GNR -Wound culture positive for GPC -Pending speciation ? Restart IV vancomycin since GPC growth found in wound culture ? Continue IV Zosyn ? Acetaminophen as needed for fever ? Did not receive sepsis protocol fluids. Concern for worsening hypertension and pulmonary edema ?Dr. Haeny consulted??s/p I&S. Noticeable thick purulent material drained, subcutaneous tissue necrosis. Area thoroughly irrigated and packed. -Wound care consulted for daily dressing and placement of wound VAC #Hypertensive emergency-resolving Initial blood pressures at the time of presentation to the ED is 180/102 mmHg. Patient was given a dose of hydralazine 10 Mg and nitroglycerin topical patch. Despite those, blood pressures are still elevated so patient was started on nicardipine drip 5 Mg per earlene -Hydralazine 10mg IV q6hr PRN -labetalol 10 IV q6hr PRN ? Restart home medication metoprolol succinate 100 p.o. daily -Amlodipine 5 mg p.o. daily ?Continue monitoring blood pressure #Troponinemia 2/2 demand ischemia-resolved Most likely NSTEMI II related to underlying sepsis vs NSTEMI 1 as patient does have history of CAD. However unlikely as troponins are downtrending from 0.103 to 0.095. EKG shows no acute ischemic changes. -Continue monitoring for any changes #ZENY Ddx: Prerenal ZENY due to hypoperfusion in setting of sepsis vs cardiorenal syndrome vs nephrotoxic agents Creatinine elevated from baseline 0.9. Today creatinine 1.8 -Holding aggressive fluids for now due to concern of worsening CHF -Nephrology consulted--recommendations pending ? Administer 1 L bolus NS -Repeat renal panel pending for creatinine after fluid bolus was given -avoid nephrotoxic agents -daily CMP #History HFpEF Most recent echo from 04/24/2024 shows EF 55-60%. At home patient takes bumetanide 1 mg p.o. twice daily and spironolactone 50 mg p.o. twice daily. BNP up trended from 1667 to 2201. Chest x-ray shows mild to moderate CHF. -strict INOs -low sodium diet -keep potassium >4, mag >2 -daily CBC, CMP #History of CAROLYN/OHS Unsure at this time patient is compliant with any CPAP machine at home. ? continue BiPAP at night -not compliant with use #Poorly controlled Insulin-dependent type 2 diabetes On admission initial glucose 461. Last A1c 11.7 in October 2023. Patient takes Ozempic, 50 units insulin glargine, aspart sliding scale for diabetes at home. -Held home medications -Bedside blood glucose checks ACHS -increase to 50 units glargine -Continue insulin sliding scale -Carb consistent low diet -Diabetes education -A1c 13.6 #Elevated CK-resolved Drug-induced versus prolonged immobilization. CK 284 upon presentation. ?Repeat CK at 8 PM ? If uptrending, will start patient on fluids #History hypertension ? Continue metoprolol 100 p.o. daily #History cirrhosis ? Follow-up outpatient #History PE -Resume apixaban 5 mg p.o. twice daily #History of CAD ? Resume atorvastatin 40 mg p.o. at bedtime Health maintenance: Dispo: AHRF, sepsis, s/p I&D left groin DVT prophylaxis: Apixaban 5 mg p.o. twice daily CODE STATUS: Full code Diet: clear liquids The patient's management plan was discussed with my attending physician Dr. Whitfield and seniors Dr. Gill. Luz Marina Keller, PGY-1 Attending Provider Attestation/Addendum I have examined the patient, reviewed labs and imaging findings, discussed the case with the resident(s), and reviewed entered orders. I agree with the plan of care as outlined in this note. Dr. Whitfield
--- NOTE | 2024-05-12 14:12 | PC.NURSE ---
Pt is currently resting with eyes closed, no c/o pain at this time, safety assessment complete. Handoff given to Georges MATOS.
[2024-05-12 14:37] LABS: Anion Gap 9 (7-16); BUN/Creatinine Ratio 22 Ratio (12-20); Blood Urea Nitrogen 53 mg/dL (9-23); Calcium 8.7 mg/dL (8.3-10.6); Carbon Dioxide 23.2 mMol/L (20.0-31.0); Chloride 99 mMol/L (98-107); Creatinine (Component) 2.4 mg/dL (0.6-1.3); Estimated Creatinine Clearance 48.2 mL/min (>60); Glucose 355 mg/dL (74-106); Osmolality,Calculated 291 (275-295); Potassium 4.2 mMol/L (3.4-5.1); Sodium 131 mMol/L (136-145); eGFR 31 See Note
[2024-05-12] MEDS: BUMETANIDE INJ 0.25 MG/ML VIAL 4 ML 2 MG IVP ×2 (15:33→23:15)
[2024-05-12 16:10] LABS: Collection Type, Urine Catheter; Squamous Epithelial Cell,Urine 0 /hpf (0-5)
[2024-05-12 16:25] LABS: Amorphous Crystals,Urine Present (Absent); Bacteria,Urine Rare; Bilirubin,Urine Negative (Negative); Blood,Urine 2+ (Negative); Clarity,Urine Turbid (Clear/Hazy); Color,Urine Yellow (Lt Yel-Yel); Glucose, Urine 4+ (Negative); Granular Casts,Urine < 1 /hpf (0-1); Hyaline Casts,Urine < 1 /hpf (0-1); Ketones,Urine Negative (Negative); Leukocyte Esterase,Urine Negative (Negative); Nitrite,Urine Negative (Negative); Protein,Urine 3+ (Neg - Trace); RBC,Urine 50 /hpf (0-3); Specific Gravity,Urine 1.019 (1.001-1.035); Urobilinogen,Urine Negative mg/dL (0.0-1.0); WBC,Urine 11 /hpf (0-5)
[2024-05-12 16:26] LABS: Creatinine,Random Urine 70 mg/dL (30-125); Protein Total, Random Urine 656 mg/dL (1-14)
--- NOTE | 2024-05-12 16:34 | PD.RESCONSUL ---
HPI Data of Consult Consult date: 05/12/24 Requesting Physician: Sabino Whitfield MD Admitting Provider: Sabino Whitfield MD Attending Provider: Sabino Whitfield MD Primary Care Provider: Physician No Primary/Family Consult Narrative Reason for consult: Worsening ZENY History of present illness: Mekhi Smith is 54 y/o M with PMHx significant for CAD, HFpEF, CVA with B/L endarterectomy, PE on Eliquis, hypertension, OHS/CAROLYN, cirrhosis, insulin-dependent type 2 diabetes who presented to ED due to weakness. Family stated that they found him on the floor at home. N patient initially unable to provide history, most history was obtained from chart review. He was recently discharged from hospital on 04/28/2024 due to CHF exacerbation and lower extremity edema. He was also diagnosed to have left groin abscess and recommended percutaneous drainage in the outpatient setting. However, patient did not follow-up with treatment. Patient was started on BiPAP while in the ED. Is able to respond to yes or no questions with head nodding. In the ED, patient was found to have hypertensive emergency 180/102 mmHg, tachycardic 100, tachypneic 28/min, low-grade fever 100.8 ?F, SpO2 100% on 10 L OxyMask. Labs significant for leukocytosis 21.8, anemia hemoglobin 9, platelet 203, elevated ESR 103, D-dimer 1350, ABG unremarkable, sodium 132, potassium 3.7, creatinine 1.4 elevated from baseline, glucose 369, lactic acid normal 0.9, alk phos 156, CK 284, elevated troponin 0.103, CRP 26, BNP 07/23/2000, Pro-Angelo 12, UA 3+ protein, 4+ glucose, 1+ ketones, negative nitrite/negative leukocyte Estrace, hematuria, urine tox positive for THC and opiates. Diagnostic imaging: No acute ischemic changes on EKG, chest x-ray consistent with moderate CHF, CT head negative for acute hemorrhage, gallbladder ultrasound revealing significant hepatomegaly suspicious for primary hepatocellular disease. No evidence of acute cholecystitis. Patient received furosemide 80 IV x 1, labetalol 20 x 1, hydralazine 10 x 1, [id number] mg, magnesium sulfate 2 g x 1, DuoNeb treatment x 1, methylprednisone 125 mg x 1, Rocephin x 1, and [address] Haney was consulted and he was admitted for AHRF 2/2 sepsis and left groin abscess. Patient received I&D of left groin area, with thick purulent and necrotic material. Wound was packed with wound VAC placement. During this time patient kidney function continued to get progressively worse. Patient received additional 1 L bolus normal saline due to sepsis protocol. Nephrology was consulted due to worsening ZENY, concern for prerenal ZENY versus cardiorenal syndrome with fluid overload. Patient seen and examined in telemetry. Patient resting in bed, expresses mild discomfort. Patient complains of shortness of breath, states he is extremely swollen, he believes due to excess fluids. Patient has anasarca, severe pain continue to bilateral lower extremities, swollen bilateral upper extremities. Lung sounds difficult to auscultate due to poor body habitus, signs of congestion in bilateral upper lobes. Strong suspect ZENY due to fluid overload in setting of CHF. BUN 53, creatinine 2.4, eGFR 31. Will begin diuresis, evaluate for nephrotic syndrome. cc:: cc: Sabino Whitfield MD Review of Systems Review of Systems Systems Reviewed: All systems reviewed, normal except as documented Past Medical History Past Medical History NEUROLOGIC: Positive Neurological Disorders, Cerebrovascular Accident, Transient Ischemic Attacks (TIA) and Willis's Palsy; Negative Seizures CARDIAC: Positive Cardiac Disorders, Myocardial Infarction, Coronary Artery Disease, Atherosclerotic Heart Disease, Hypercholesterolemia, Congestive Heart Failure, Deep Vein Thrombosis and Hypertension RESPIRATORY: Positive Asthma and Pulmonary Embolism; Negative Chronic Obstructive Pulmonary Disease (COPD) or Pneumonia GASTROINTESTINAL: Positive Gastrointestinal Disorders and Obesity GENITOURINARY: Positive Genitourinary Disorders and Kidney Stones; Negative Renal Disease MUSCULOSKELETAL: Positive Musculoskeletal Disorders and Degenerative Disk Disease; Negative Bone Cancer, Carpal Tunnel Syndrome or Fractures ENDOCRINE: Positive Endocrine Disorders and Diabetes Mellitus Type 2; Negative Diabetes Mellitus Type 1 HEMATOLOGIC: Negative Blood Disorders or Sickle Cell Disease PSYCHO/SOCIAL: Positive Anxiety OTHER HISTORY: Positive Falls, Blood Transfusions, Blood Transfusion Reaction and Chicken Pox; Negative Autoimmune Disease, Anesthesia Reactions, Organ Transplant, MRSA, VRSA, Vancomycin-Resistant Enterococci, Clostridium Difficile or Cancer Family History FAMILY HISTORY: Positive Family Respiratory Disorders and Family Cardiac Disorders; Negative Family Neurologic Problems Surgical History SURGICAL: Positive Cardiac Surgery, Coronary Stent and Carotid Endarterectomy; Negative Ear Surgery, Abdominal Surgery, Joint Replacement, Amputation, Open Reduction Internal Fixation, Arthroscopy, Neurologic Surgery, Vasectomy or Organ Transplant Social History SMOKING STATUS: Current every day smoker SECOND HAND EXPOSURE: No ([id number] x 4 yrs) SUBSTANCE USE: does not use Exam Vital Signs Temp Pulse Resp BP Pulse Ox O2 Del Method O2 Flow Rate 97.6 F 76 15 162/81 H 90 L Room Air 2 05/12/24 12:00 05/12/24 15:33 05/12/24 12:00 05/12/24 15:33 05/12/24 12:00 05/12/24 12:00 05/12/24 04:00 FiO2 35 05/12/24 04:00 Narrative Exam PE: Gen: Well-developed and well-nourished. Mildly distressed. Obese. HEENT: NCAT, PERRLA, EOMI, anicteric conjunctivae. Dry mucous membranes. CVS: normal S1 and S2. RRR. No M/R/G. Resp: Poor lung sounds due to body habitus. Congestion in bilateral upper lobes. Abd: Abdomen diffusely distended, anasarca. MSK: Good ROM in BUE & BLE. All extremities edematous, worse in bilateral lower extremities. Blanching erythema, tenderness, swelling in pelvic area, concentrated to the left inguinal fold. Wound VAC placement in left inguinal fold. Neuro: CN II-XII grossly intact. Strength 5/5 in BUE & BLE. Alert and oriented x3. Results Labs 05/12/24 04:27 05/12/24 13:40 Labs: Short CBC 05/12/24 Range/Units 04:27 WBC 23.7 H (3.8-10.6) Thou/mm3 Hgb 9.6 L (13.5-16.0) g/dL Hct 31.2 L (41.0-53.0) % Plt Count 289 D (140-440) Thou/mm3 BMP 05/12/24 05/12/24 04:27 13:40 Sodium 132 L 131 L Potassium 4.6 D 4.2 Chloride 100 99 Carbon Dioxide 22.8 23.2 BUN 53 H 53 H Creatinine 2.3 H D 2.4 H Glucose 361 H 355 H Calcium 9.2 8.7 Liver Function 05/12/24 Range/Units 04:27 Total Bilirubin 0.2 L (0.3-1.2) mg/dL AST 35 H (0-34) U/L ALT 24 (10-49) U/L Alkaline Phosphatase 161 H (46-116) U/L Albumin 3.6 (3.5-5.0) gm/dL ABG Interpretation ABG results: 05/10/24 12:26 ABG pH 7.34 L ABG pCO2 43 ABG pO2 127 H ABG HCO3 23 ABG O2 Saturation 100 H ABG Base Excess -2 Quality Measures Quality Measures sepsis Current suspected stage: sepsis Possible source: unknown Blood cultures ordered: completed in ED Antibiotic ordered: Yes Medications Home Medications and Allergies Home Medications ?Medication ?Instructions ?Recorded ?Confirmed ?Type atorvastatin 40 mg tablet 40 mg PO HS 10/22/23 05/12/24 History hydrocodone 10 mg-acetaminophen 1 tab PO Q4H 10/22/23 01/14/24 History 325 mg tablet ipratropium 20 mcg-albuterol 100 2 puff inhalation Q8HR PRN 10/22/23 05/12/24 History mcg/actuation mist for inhalation Shortness Of Breath (Combivent Respimat) lorazepam 2 mg tablet 2 mg PO BID 10/22/23 05/12/24 History losartan 100 mg tablet 100 mg PO DAILY 10/22/23 05/12/24 History metoprolol succinate 100 mg 100 mg PO DAILY 10/22/23 05/12/24 History tablet,extended release 24 hr pregabalin 150 mg capsule 150 mg PO TID 10/22/23 05/12/24 History semaglutide 2 mg/dose (8 mg/3 mL) 2 mg subcut QWEEK 10/22/23 01/14/24 History subcutaneous pen injector (Ozempic) morphine 15 mg tablet,extended 15 mg PO QDAY PRN Pain 01/14/24 05/12/24 History release hydrocodone 10 mg-acetaminophen 1 tab PO 6 TIMES DAILY PRN Pain 05/11/24 05/11/24 History 325 mg tablet (Scale Score 7-10) hydrocodone 10 mg-acetaminophen tab 05/11/24 History 325 mg tablet spironolactone 50 mg tablet 50 mg PO BID 05/12/24 05/12/24 History Allergies Allergy/AdvReac Type Severity Reaction Status Date / Time ketorolac Allergy Severe TONGUE Verified 07/26/23 22:55 SWELLS UP Visit Medications Acetaminophen (Acetaminophen 325 Mg Tablet) 650 mg PO Q6H PRN PRN Reason: Fever >100.3 or pain(1-3) Stop: 06/09/24 17:37 Amlodipine Besylate (Amlodipine Besylate 5 Mg Tablet) 5 mg PO QDAY [facility] Stop: 06/11/24 08:59 Last Admin: 05/12/24 10:02 Dose: 5 mg Apixaban (Apixaban 2.5 Mg Tablet) 5 mg PO BID RINA Stop: 06/01/24 13:59 Last Admin: 05/12/24 10:08 Dose: Not Given Atorvastatin Calcium (Atorvastatin Calcium 20 Mg Tablet) 40 mg PO HS RINA Stop: 06/11/24 20:59 Bumetanide (Bumetanide Inj 0.25 Mg/Ml Vial 4 Ml) 2 mg IVP BID [facility] Stop: 06/11/24 14:59 Last Admin: 05/12/24 15:33 Dose: 2 mg Dextrose (Dextrose 50%-Water Inj 50 Ml Syringe) 25 ml IV Q15MIN PRN PRN Reason: BG 50-70 responsive npo pt Stop: 06/09/24 19:29 Dextrose (Dextrose 50%-Water Inj 50 Ml Syringe) 50 ml IV Q15MIN PRN PRN Reason: BG <50 OR BG <70 & pt unresponsive Stop: 06/09/24 19:29 Glucagon (Glucagon Inj 1 Mg Vial) 1 mg IM Q15MIN PRN PRN Reason: BG <70, and no IV access Hydralazine HCl (Hydralazine Inj 20 Mg/Ml Vial) 10 mg IV Q6H PRN PRN Reason: High blood pressure Stop: 06/09/24 19:10 Last Admin: 05/12/24 11:54 Dose: 10 mg Piperacillin/Tazobactam/Dextrose (Zosyn) 50 mls @ 12.5 mls/hr IV Q8HR RINA Stop: 05/17/24 21:59 Last Admin: 05/12/24 15:01 Dose: 12.5 mls/hr Promethazine HCl 12.5 mg/ (Sodium Chloride) 50.5 mls @ 2.5 mls/min IV X1 PRN PRN Reason: NAUSEA OR VOMITING Vancomycin/Sodium Chloride (Vancomycin/Ns 1 Gm Ivpb) 200 mls @ 120 mls/hr IV Q12H RINA; Protocol Stop: 05/19/24 21:59 Insulin Glargine (Insulin Glargine (Lantus) 5 Unit/0.05 Ml (Per 5 Units)) 50 unit SC QDAY RINA Stop: 06/12/24 09:29 Insulin Human Lispro (Insulin Lispro (Admelog) 1 Unit/0.01 Ml Unit) 0 unit SC ACHS [facility]; Protocol Stop: 06/09/24 20:59 Last Admin: 05/12/24 11:38 Dose: 16 unit Labetalol HCl (Labetalol Inj 5 Mg/Ml Vial 20 Ml) 10 mg IVP Q6H PRN PRN Reason: High blood pressure Stop: 06/09/24 19:10 Last Admin: 05/10/24 21:58 Dose: 10 mg Metoprolol Succinate (Metoprolol Succinate Xl 25 Mg Tabcr) 100 mg PO QDAY RINA Stop: 06/09/24 18:59 Last Admin: 05/12/24 08:12 Dose: 100 mg Morphine Sulfate (Morphine Sulf Inj 10 Mg/Ml Vial) 4 mg IVP Q8HR PRN PRN Reason: abdominal pain Stop: 05/16/24 12:22 Last Admin: 05/12/24 07:47 Dose: 4 mg Ondansetron HCl (Ondansetron Inj 2 Mg/Ml Inj 2 Ml) 4 mg IV Q6H PRN; Protocol PRN Reason: NAUSEA OR VOMITING Stop: 06/09/24 17:37 Pharmacy Consult (Vancomycin Pharmacy To Dose 1 Each Each) 1 each IV QDAY PRN PRN Reason: PROTOCOL Stop: 06/11/24 11:19 Discontinued Medications Acetaminophen (Acetaminophen Supp 650 Mg Supp) 650 mg MN X1 ONE Stop: 05/10/24 11:14 Last Admin: 05/10/24 12:44 Dose: Not Given Acetaminophen (Acetaminophen 325 Mg Tablet) 650 mg PO Q6H PRN PRN Reason: Fever >100.3 or pain Stop: 06/09/24 17:37 Acetaminophen (Acetaminophen Supp 650 Mg Supp) 650 mg MN Q6HR PRN; Protocol PRN Reason: Fever > 100.3 Stop: 06/09/24 19:14 Hydrocodone Bitart/Acetaminophen (Hydrocodone/Apap 5/325 Tablet) 1 tab PO Q4HR PRN PRN Reason: PAIN SCALE 4-10(Mod-Sev Stop: 05/16/24 11:26 Hydrocodone Bitart/Acetaminophen (Hydrocodone/Apap 5/325 Tablet) 1 tab PO Q4HR PRN PRN Reason: PAIN SCALE 4-6 (Moderate Stop: 05/16/24 11:26 Hydrocodone Bitart/Acetaminophen (Hydrocodone/Apap 5/325 Tablet) 1 tab PO X1 ONE Stop: 05/11/24 21:07 Last Admin: 05/11/24 21:30 Dose: 1 tab Hydrocodone Bitart/Acetaminophen (Hydrocodone/Apap 5/325 Tablet) 1 tab PO X1 ONE Stop: 05/12/24 04:21 Last Admin: 05/12/24 04:37 Dose: 1 tab Albuterol/Ipratropium (Albuterol/Ipratropium (Duoneb) Rt Radha 3 Ml Nebu) 6 ml INH X1 ONE Stop: 05/10/24 11:18 Last Admin: 05/10/24 12:36 Dose: 6 ml Dextrose (Dextrose 50%-Water Inj 50 Ml Syringe) 25 ml IV Q15MIN PRN PRN Reason: BG 50-70 responsive npo pt Stop: 06/09/24 19:01 Dextrose (Dextrose 50%-Water Inj 50 Ml Syringe) 50 ml IV Q15MIN PRN PRN Reason: BG <50 OR BG <70 & pt unresponsive Stop: 06/09/24 19:01 Fentanyl Citrate (Fentanyl Cit Inj 50 Mcg/Ml Amp 2ml) 50 mcg IV Q5MIN PRN PRN Reason: PAIN SCALE 4-10(Mod-Sev Stop: 05/11/24 11:29 Furosemide (Furosemide Inj 10 Mg/Ml 4ml Vial) 80 mg IVP X1 ONE Stop: 05/10/24 16:10 Last Admin: 05/10/24 17:29 Dose: Not Given Furosemide (Furosemide Inj 10 Mg/Ml 4ml Vial) 40 mg IVP X1 ONE Stop: 05/10/24 16:49 Last Admin: 05/10/24 16:54 Dose: Not Given Furosemide (Furosemide Inj 10 Mg/Ml 4ml Vial) 80 mg IVP X1 ONE Stop: 05/10/24 16:51 Last Admin: 05/10/24 17:12 Dose: 80 mg Glucagon (Glucagon Inj 1 Mg Vial) 1 mg IM Q15MIN PRN PRN Reason: BG <70, and no IV access Hydralazine HCl (Hydralazine Inj 20 Mg/Ml Vial) 10 mg IV X1 ONE Stop: 05/10/24 12:16 Last Admin: 05/10/24 12:27 Dose: 10 mg Hydralazine HCl (Hydralazine Inj 20 Mg/Ml Vial) 10 mg IV X1 ONE Stop: 05/10/24 16:17 Last Admin: 05/10/24 17:11 Dose: 10 mg Hydralazine HCl (Hydralazine Inj 20 Mg/Ml Vial) 10 mg IV X1 ONE Stop: 05/10/24 19:01 Last Admin: 05/10/24 19:26 Dose: 10 mg Sodium Chloride (Ns) 1,000 mls @ 999 mls/hr IV .Q1H1M ONE Stop: 05/10/24 12:14 Last Infusion: 05/10/24 12:30 Dose: Infused Ceftriaxone Sodium/Dextrose (Rocephin/D5w 1gm Iv Premix) 50 mls @ 100 mls/hr IV X1 ONE Stop: 05/10/24 11:44 Last Infusion: 05/10/24 12:32 Dose: Infused Magnesium Sulfate (Magnesium Sulfate Ivpb) 2 gm in 50 mls @ 25 mls/hr IV X1 ONE Stop: 05/10/24 13:16 Last Admin: 05/10/24 14:07 Dose: Not Given Acetaminophen (Ofirmev Inj) 1,000 mg in 100 mls @ 250 mls/hr IV X1 ONE Stop: 05/10/24 12:29 Last Infusion: 05/10/24 13:14 Dose: Infused Magnesium Sulfate (Magnesium Sulfate Ivpb) 2 gm in 50 mls @ 25 mls/hr IV X1 ONE Stop: 05/10/24 14:29 Last Infusion: 05/10/24 14:40 Dose: Infused Nicardipine/Sodium Chloride (Cardene Ivpb) 20 mg in 200 mls @ 50 mls/hr IV .Q4H PRN; Protocol PRN Reason: PER PROTOCOL Stop: 06/09/24 13:34 Last Titration: 05/10/24 16:19 Dose: 0 mg/hr, 0 mls/hr Piperacillin/Tazobactam/Dextrose (Zosyn) 50 mls @ 100 mls/hr IV X1 ONE Stop: 05/10/24 18:59 Last Infusion: 05/10/24 19:23 Dose: Infused Vancomycin/Sodium Chloride (Vancomycin/Ns 1 Gm Ivpb) 200 mls @ 120 mls/hr IV 1000,2200 [facility] Stop: 05/17/24 18:29 Last Infusion: 05/10/24 21:53 Dose: Infused Sodium Chloride (Ns) 1,000 mls @ 999 mls/hr IV .Q1H1M ONE Stop: 05/12/24 09:32 Last Admin: 05/12/24 10:02 Dose: 999 mls/hr Vancomycin HCl/Dextrose (Vancomycin/D5w 1,250 Mg Ivpb) 250 mls @ 120 mls/hr IV X1 ONE Stop: 05/12/24 13:34 Last Admin: 05/12/24 11:54 Dose: 120 mls/hr Insulin Glargine (Insulin Glargine (Lantus) 5 Unit/0.05 Ml (Per 5 Units)) 25 unit SC QDAY [facility] Stop: 06/10/24 08:59 Last Admin: 05/11/24 11:05 Dose: 25 unit Insulin Glargine (Insulin Glargine (Lantus) 5 Unit/0.05 Ml (Per 5 Units)) 40 unit SC QDAY [facility] Stop: 06/11/24 08:59 Last Admin: 05/12/24 08:13 Dose: 40 unit Insulin Glargine (Insulin Glargine (Lantus) 5 Unit/0.05 Ml (Per 5 Units)) 50 unit SC QDAY [facility] Stop: 06/11/24 11:29 Insulin Glargine (Insulin Glargine (Lantus) 5 Unit/0.05 Ml (Per 5 Units)) 10 unit SC X1 ONE Stop: 05/12/24 11:22 Last Admin: 05/12/24 11:37 Dose: 10 unit Insulin Human Lispro (Insulin Lispro (Admelog) 1 Unit/0.01 Ml Unit) 0 unit SC ACHS [facility]; Protocol Stop: 06/09/24 20:59 Last Admin: 05/12/24 08:13 Dose: 10 unit Insulin Human Regular (Insulin Hum Regular 1 Unit/0.01 Ml (Per Unit)) 0 unit SC [facility]; Protocol Stop: 06/09/24 20:59 Ketorolac Tromethamine (Ketorolac Inj 30 Mg/Ml Vial) 15 mg IVP X1 ONE Stop: 05/10/24 11:14 Last Admin: 05/10/24 11:29 Dose: Not Given Labetalol HCl (Labetalol Inj 5 Mg/Ml Vial 20 Ml) 20 mg IVP X1 ONE Stop: 05/10/24 16:17 Last Admin: 05/10/24 17:11 Dose: 20 mg Labetalol HCl (Labetalol Inj 5 Mg/Ml Vial 20 Ml) 10 mg IVP X1 ONE Stop: 05/10/24 22:53 Last Admin: 05/10/24 23:02 Dose: 10 mg Methylprednisolone Sodium Succinate (Methylprednisolone Sod Succ 62.5 Mg/Ml 2ml Vial) 125 mg IVP X1 ONE Stop: 05/10/24 11:18 Last Admin: 05/10/24 11:46 Dose: 125 mg Metoprolol Tartrate (Metoprolol Tartrate Inj 1 Mg/Ml Amp 5 Ml) 1 mg IVP Q5MIN PRN PRN Reason: TACHYCARDIA Stop: 05/11/24 11:30 Midazolam HCl (Midazolam Inj 1 Mg/Ml Vial 2 Ml) 1 mg IV Q5MIN PRN PRN Reason: ANXIETY Stop: 05/12/24 09:27 Morphine Sulfate (Morphine Sulf Inj 10 Mg/Ml Vial) 1 mg IV Q4HR PRN PRN Reason: PAIN SCALE 7-10 (Severe Stop: 05/16/24 12:06 Morphine Sulfate (Morphine Sulf Inj 10 Mg/Ml Vial) 2 mg IVP X1 ONE Stop: 05/11/24 12:15 Last Admin: 05/11/24 12:29 Dose: 2 mg Morphine Sulfate (Morphine Sulf 15 Mg Tabcr) 15 mg PO X1 ONE Stop: 05/11/24 14:16 Last Admin: 05/11/24 14:44 Dose: 15 mg Nifedipine (Nifedipine Xl 30 Mg Tabcr) 30 mg PO X1 ONE Stop: 05/11/24 04:43 Last Admin: 05/11/24 04:53 Dose: 30 mg Nitroglycerin (Nitroglycerin Oint 2% 1 Inch Packet) 2 inch TOP X1 ONE Stop: 05/10/24 12:16 Last Admin: 05/10/24 12:46 Dose: 2 inch Pharmacy Consult (Vancomycin Pharmacy To Dose 1 Each Each) 1 each IV QDAY PRN PRN Reason: PROTOCOL Stop: 06/09/24 18:29 Assessment & Plan Plan 54 y/o M with PMHx significant for CAD, HFpEF, CVA with B/L endarterectomy, PE on Eliquis, hypertension, OHS/CAROLYN, cirrhosis, insulin-dependent type 2 diabetes who presented to ED due to weakness, admitted for acute hypoxic respiratory failure. #ZENY #Suspected nephrotic syndrome due to progressive diabetic nephropathy Patient has been diabetic for more than 15 years. Patient has baseline kidney function within normal limits. Patient kidney function is worsened over course of hospitalization. Patient has received IV fluids due to concern for sepsis during stay. On exam patient appears fluid overloaded, anasarca. Dry mucous membranes. Urinalysis showed 3+ protein. Urine random creatinine 70, urine random total protein 656. Urine protein/creatinine 9.3 g. A1c 13.6% as of 05/11/2024. BUN 53, creatinine 2.4, eGFR 31. Plan: -Holding IV fluids -Bumex 2 mg IV twice daily -avoid nephrotoxic agents -Monitor daily labs -Strict I's and O's #AHRF 2/2 sepsis-resolved #Sepsis 2/2 GNR bacteremia #Hypertensive emergency-resolving #Troponinemia 2/2 demand ischemia-resolved #History HFpEF #History of CAROLYN/OHS #Poorly controlled Insulin-dependent type 2 diabetes #Elevated CK-resolved #History hypertension #History cirrhosis #History PE #History of CAD Management as per primary team. DVT prophylaxis: Eliquis GI prophylaxis: None Diet: Carb consistent level, fluid restriction 1500 cc Lines: Wound VAC, Wright cath, peripheral IV Code status: Full code Thank you for allow me to anticipate the care of this patient. Plan of care discussed with attending Dr. Burger. Enrique Justice MD PGY-1 Attending Provider Attestation/Addendum Patient seen and examined with resident physician Dr. Justice. Note reviewed, agree with findings and recommendations with few changes made. Patient has diabetes for more than 15 years complicated with neuropathy, retinopathy, peripheral vascular disease, nephropathy. 3+ proteinuria. Urine protein/creatinine 9.3 g consistent with nephrotic range proteinuria. Suspect patient has nephrotic syndrome with significant anasarca. Hold off on fluids. Started him on diuretics. Patient unable to move in the bed due to significant edema. Avoid nephrotoxic strict I&O's, daily weights ordered. Hopefully with the diuretics his edema will improve. Did discuss to sequential ultrafiltration if diuretic dependent/versus rate happens. Thank you Sabino for allowing me to participate in the care of Mr. Gaming.
[2024-05-12] MEDS: APIXABAN 2.5 MG TABLET 5 MG PO (21:40)
[2024-05-12] MEDS: ATORVASTATIN CALCIUM 20 MG TABLET 40 MG PO (21:41)
[2024-05-12] MEDS: PREGABALIN 75 MG CAPSULE 150 MG PO (21:43)
[2024-05-12] MEDS: VANCOMYCIN/NS 1 GM IVPB 200 ML IV (23:20)
[2024-05-13] VITALS (11 sets, daily range): BP systolic 121–152; BP diastolic 69–89; PULSE 80–90; RESP 16–94; TEMP 36.3–36.8; O2SAT 93–99
[2024-05-13] MEDS: MORPHINE SULF INJ 10 MG/ML VIAL 4 MG IVP ×3 (01:55→22:47)
[2024-05-13] MEDS: PREGABALIN 75 MG CAPSULE 150 MG PO ×3 (05:36→21:22)
[2024-05-13] MEDS: PIPER/TAZO 3.375 GM 50 ML IV ×3 (05:40→21:22)
[2024-05-13 06:04] LABS: Basophils % (Auto) 0 % (0-2.5); Eosinophils # (Auto) 0.1 Thou/mm3 (0.0-0.5); Eosinophils % (Auto) 1 % (0-10); Hematocrit 26.9 % (41.0-53.0); Immature Granulocytes % (Auto) 1 % (0-0); Immature Granulocytes Auto 0.19 Thou/mm3 (0.00-0.00); Lymphocytes # (Auto) 0.5 Thou/mm3 (1.0-4.8); Lymphocytes % (Auto) 3 % (10-50); Mean Corpuscular HGB Conc 31.2 g/dl (31.0-37.0); Mean Corpuscular Hemoglobin 25.7 pg (25.0-35.0); Mean Corpuscular Volume 82 fL (80-100); Monocytes # (Auto) 1.1 Thou/mm3 (0.0-0.8); Monocytes % (Auto) 6 % (0-12); Neutrophils # (Auto) 15.5 Thou/mm3 (1.8-7.7); Neutrophils % (Auto) 89 % (37-80); Nucleated Red Blood Cell # 0.06 Thou/mm3 (0.00-0.00); Nucleated Red Blood Cell % 0 /100 WBC (0); Platelet Count 201 Thou/mm3 (140-440); RDW Standard Deviation 48.1 fL (35.1-43.9); Red Blood Count 3.27 Miln/mm3 (4.50-5.90); White Blood Count 17.5 Thou/mm3 (3.8-10.6)
[2024-05-13 06:07] LABS: Hemoglobin 8.4 g/dL (13.5-16.0)
[2024-05-13 06:55] LABS: Alanine Aminotransferase 23 U/L (10-49); Albumin, Serum 3.1 gm/dL (3.5-5.0); Albumin/Globulin Ratio 1.1 (1.2-2.2); Alkaline Phosphatase 136 U/L (46-116); Anion Gap 9 (7-16); Aspartate Amino Transferase 36 U/L (0-34); BUN/Creatinine Ratio 27 Ratio (12-20); Blood Urea Nitrogen 60 mg/dL (9-23); Calcium 8.5 mg/dL (8.3-10.6); Calcium (Corrected) 9.2 mg/dL (8.5-10.1); Carbon Dioxide 21.8 mMol/L (20.0-31.0); Chloride 103 mMol/L (98-107); Creatinine (Component) 2.2 mg/dL (0.6-1.3); Estimated Creatinine Clearance 54.9 mL/min (>60); Globulin 2.9 gm/dL (2.3-3.5); Glucose 123 mg/dL (74-106); Osmolality,Calculated 286 (275-295); Potassium 4.2 mMol/L (3.4-5.1); Sodium 134 mMol/L (136-145); eGFR 34 See Note
[2024-05-13] MEDS: METOPROLOL SUCCINATE XL 25 MG TABCR 100 MG PO (08:55)
[2024-05-13] MEDS: amLODIPine BESYLATE 5 MG TABLET PO (08:56)
[2024-05-13] MEDS: BUMETANIDE INJ 0.25 MG/ML VIAL 4 ML 2 MG IVP (08:56)
[2024-05-13] MEDS: APIXABAN 2.5 MG TABLET 5 MG PO ×2 (08:56→21:20)
[2024-05-13] MEDS: INSULIN LISPRO (AdmeLOG) 1 UNIT/0.01 ML UNIT SC ×2 (09:08→17:32)
[2024-05-13] MEDS: VANCOMYCIN/NS 1 GM IVPB 200 ML IV ×2 (10:34→21:25)
[2024-05-13 11:31] LABS: Allen Test Performed/OK; Base Excess -3 (-3-3); HCO3 23 mEq/L (20-26); Inspired Oxygen, FIO2 21 %; O2 Saturation 94 % (91-98); PCO2 40 mmHg (32.0-48.0); PO2 75 mmHg (83-108); Puncture Site Right Radial; pH, Arterial 7.36 (7.35-7.45)
[2024-05-13 11:34] LABS: Bilirubin,Total < 0.2 mg/dL (0.3-1.2)
[2024-05-13] MEDS: BUMETANIDE INJ 20 MG in CONTAINER,EMPTY 50 ML 1 BAG 8 MG IV (12:26)
--- NOTE | 2024-05-13 13:07 | ESPR_ITS ---
Documentation for date of: 05/13/24 Subjective Subjective Interval history: Mekhi Smith is 54 y/o M with PMHx significant for CAD, HFpEF, CVA with B/L endarterectomy, PE on Eliquis, hypertension, OHS/CAROLYN, cirrhosis, insulin- dependent type 2 diabetes who presented to ED due to weakness. Family stated that they found him on the floor at home. N patient initially unable to provide history, most history was obtained from chart review. He was recently discharged from hospital on 04/28/2024 due to CHF exacerbation and lower extremity edema. He was also diagnosed to have left groin abscess and recommended percutaneous drainage in the outpatient setting. However, patient did not follow-up with treatment. Patient was started on BiPAP while in the ED. Is able to respond to yes or no questions with head nodding. In the ED, patient was found to have hypertensive emergency 180/102 mmHg, tachycardic 100, tachypneic 28/min, low-grade fever 100.8 ?F, SpO2 100% on 10 L OxyMask. Labs significant for leukocytosis 21.8, anemia hemoglobin 9, platelet 203, elevated ESR 103, D-dimer 1350, ABG unremarkable, sodium 132, potassium 3.7, creatinine 1.4 elevated from baseline, glucose 369, lactic acid normal 0.9, alk phos 156, CK 284, elevated troponin 0.103, CRP 26, BNP 07/23/2000, Pro-Angelo 12, UA 3+ protein, 4+ glucose, 1+ ketones, negative nitrite/negative leukocyte Estrace, hematuria, urine tox positive for THC and opiates. Diagnostic imaging: No acute ischemic changes on EKG, chest x-ray consistent with moderate CHF, CT head negative for acute hemorrhage, gallbladder ultrasound revealing significant hepatomegaly suspicious for primary hepatocellular disease. No evidence of acute cholecystitis. Patient received furosemide 80 IV x 1, labetalol 20 x 1, hydralazine 10 x 1, [id number] mg, magnesium sulfate 2 g x 1, DuoNeb treatment x 1, methylprednisone 125 mg x 1, Rocephin x 1, and [address] Haney was consulted and he was admitted for AHRF 2/2 sepsis and left groin abscess. Patient received I&D of left groin area, with thick purulent and necrotic material. Wound was packed with wound VAC placement. During this time patient kidney function continued to get progressively worse. Patient received additional 1 L bolus normal saline due to sepsis protocol. Nephrology was consulted due to worsening ZENY, concern for prerenal ZENY versus cardiorenal syndrome with fluid overload. Patient seen and examined in telemetry. Patient resting in bed, expresses mild discomfort. Patient complains of shortness of breath, states he is extremely swollen, he believes due to excess fluids. Patient has anasarca, severe pain continue to bilateral lower extremities, swollen bilateral upper extremities. Lung sounds difficult to auscultate due to poor body habitus, signs of congestion in bilateral upper lobes. Strong suspect ZENY due to fluid overload in setting of CHF. BUN 53, creatinine 2.4, eGFR 31. Will begin diuresis, evaluate for nephrotic syndrome. 05/13: Patient seen and examined in telemetry. Patient lying in bed, increased somnolence, responsive to tactile stimulation. ABG ordered to evaluate for hypercapnia: pCO2 40, pO2 75. Patient showed some improvement in mental status in the afternoon, remains lethargic. 1.8 L urinary output despite Bumex. Sodium 134, potassium 4.2, bicarb 21.8, BUN 60, creatinine 2.2, eGFR 34. Patient maintains significant volume overload. Will place patient on Bumex drip 2 mg/h x 10 hours and reevaluate. Exam Vital Signs Temp Pulse Resp BP Pulse Ox O2 Del Method O2 Flow Rate 98.2 F 86 21 H 121/76 93 L Room Air 2 05/13/24 12:00 05/13/24 12:26 05/13/24 12:00 05/13/24 12:26 05/13/24 12:00 05/13/24 12:00 05/12/24 04:00 FiO2 35 05/12/24 04:00 Narrative Exam PE: Gen: Well-developed and well-nourished. Mildly distressed. Obese. HEENT: NCAT, PERRLA, EOMI, anicteric conjunctivae. Dry mucous membranes. CVS: normal S1 and S2. RRR. No M/R/G. Resp: Poor lung sounds due to body habitus. Congestion in bilateral upper lobes. Abd: Abdomen diffusely distended, anasarca. MSK: Good ROM in BUE & BLE. All extremities edematous, worse in bilateral lower extremities. Blanching erythema, tenderness, swelling in pelvic area, concentrated to the left inguinal fold. Wound VAC placement in left inguinal fold. Neuro: CN II-XII grossly intact. Strength 5/5 in BUE & BLE. Alert and oriented x3. Increased lethargy. Objective Labs 05/13/24 04:55 05/13/24 04:55 Labs: Laboratory Results - last 24 hr 05/12/24 05/12/24 05/13/24 13:40 15:30 04:55 WBC 17.5 H D RBC 3.27 L Hgb 8.4 L Hct 26.9 L MCV 82 MCH 25.7 MCHC 31.2 RDW Std Deviation 48.1 H Plt Count 201 D Neut % (Auto) 89 H Lymph % (Auto) 3 L [place] % (Auto) 6 Eos % (Auto) 1 Baso % (Auto) 0 Neut # (Auto) 15.5 H Lymph # (Auto) 0.5 L [place] # (Auto) 1.1 H Eos # (Auto) 0.1 Baso # (Auto) 0.0 Immature Gran # (Auto) 0.19 H Absolute Nucleated RBC 0.06 H Immature Gran % 1 H Nucleated RBC % 0 Puncture Site ABG pH ABG pCO2 ABG pO2 ABG HCO3 ABG O2 Saturation ABG Base Excess FiO2 Sodium 131 L 134 L Potassium 4.2 4.2 Chloride 99 103 Carbon Dioxide 23.2 21.8 Anion Gap 9 9 BUN 53 H 60 H Creatinine 2.4 H 2.2 H Estim Creat Clear Calc 48.2 L 54.9 L eGFR 31 L 34 L BUN/Creatinine Ratio 22 H 27 H Glucose 355 H 123 H D Calculated Osmolality 291 286 Calcium 8.7 8.5 Corrected Calcium 9.2 Total Bilirubin < 0.2 L AST 36 H ALT 23 Alkaline Phosphatase 136 H D Total Protein 6.0 Albumin 3.1 L D Globulin 2.9 Albumin/Globulin Ratio 1.1 L Ur Collection Type Catheter Urine Color Yellow Urine Clarity Turbid A Urine pH 6.0 Ur Specific Hematite 1.019 Urine Protein 3+ A Urine Glucose (UA) 4+ A Urine Ketones Negative Urine Blood 2+ A Urine Nitrite Negative Urine Bilirubin Negative Urine Urobilinogen (Auto) Negative Ur Leukocyte Esterase Negative Urine RBC 50 H Urine WBC 11 H Ur Squamous Epith Cells 0 Amorphous Crystals Present A Urine Bacteria Rare Hyaline Casts < 1 Granular Casts < 1 Ur Random Creatinine 70 U Random Total Protein 656 H 05/13/24 11:23 WBC RBC Hgb Hct MCV MCH MCHC RDW Std Deviation Plt Count Neut % (Auto) Lymph % (Auto) [place] % (Auto) Eos % (Auto) Baso % (Auto) Neut # (Auto) Lymph # (Auto) [place] # (Auto) Eos # (Auto) Baso # (Auto) Immature Gran # (Auto) Absolute Nucleated RBC Immature Gran % Nucleated RBC % Puncture Site Right Radial ABG pH 7.36 ABG pCO2 40 ABG pO2 75 L D ABG HCO3 23 ABG O2 Saturation 94 ABG Base Excess -3 FiO2 21 Sodium Potassium Chloride Carbon Dioxide Anion Gap BUN Creatinine Estim Creat Clear Calc eGFR BUN/Creatinine Ratio Glucose Calculated Osmolality Calcium Corrected Calcium Total Bilirubin AST ALT Alkaline Phosphatase Total Protein Albumin Globulin Albumin/Globulin Ratio Ur Collection Type Urine Color Urine Clarity Urine pH Ur Specific Hematite Urine Protein Urine Glucose (UA) Urine Ketones Urine Blood Urine Nitrite Urine Bilirubin Urine Urobilinogen (Auto) Ur Leukocyte Esterase Urine RBC Urine WBC Ur Squamous Epith Cells Amorphous Crystals Urine Bacteria Hyaline Casts Granular Casts Ur Random Creatinine U Random Total Protein ABG Interpretation ABG results: 05/10/24 05/13/24 12:26 11:23 ABG pH 7.34 L 7.36 ABG pCO2 43 40 ABG pO2 127 H 75 L D ABG HCO3 23 23 ABG O2 Saturation 100 H 94 ABG Base Excess -2 -3 Quality Measures Quality Measures sepsis Current suspected stage: sepsis Possible source: unknown Blood cultures ordered: completed in ED Antibiotic ordered: Yes Assessment & Plan Assessment Current Active Medications: Generic Name Dose Route Start Last Admin Trade Name Freq PRN Reason Stop Dose Admin Acetaminophen 650 mg 05/11/24 11:28 Acetaminophen 325 Mg Tablet PO 06/09/24 17:37 Q6H PRN Fever >100.3 or pain(1-3) Amlodipine Besylate 5 mg 05/12/24 09:00 05/13/24 08:56 Amlodipine Besylate 5 Mg Tablet PO 06/11/24 08:59 5 mg QDAY RINA Administration Apixaban 5 mg 05/11/24 14:00 05/13/24 08:56 Apixaban 2.5 Mg Tablet PO 06/01/24 13:59 5 mg BID RINA Administration Atorvastatin Calcium 40 mg 05/12/24 21:00 05/12/24 21:41 Atorvastatin Calcium 20 Mg Tablet PO 06/11/24 20:59 40 mg HS RINA Administration Bumetanide 2 mg 05/12/24 15:00 05/13/24 08:56 Bumetanide Inj 0.25 Mg/Ml Vial 4 Ml IVP 06/11/24 14:59 2 mg BID RINA Administration Dextrose 25 ml 05/10/24 19:30 Dextrose 50%-Water Inj 50 Ml Syringe IV 06/09/24 19:29 Q15MIN PRN BG 50-70 responsive npo pt Dextrose 50 ml 05/10/24 19:30 Dextrose 50%-Water Inj 50 Ml Syringe IV 06/09/24 19:29 Q15MIN PRN BG <50 OR BG <70 & pt unresponsive Glucagon 1 mg 05/10/24 19:30 Glucagon Inj 1 Mg Vial IM Q15MIN PRN BG <70, and no IV access Hydralazine HCl 10 mg 05/10/24 19:11 05/12/24 11:54 Hydralazine Inj 20 Mg/Ml Vial IV 06/09/24 19:10 10 mg Q6H PRN Administration High blood pressure Piperacillin/Tazobactam/Dextrose 50 mls @ 12.5 mls/hr 05/10/24 22:00 05/13/24 05:40 Zosyn IV 05/17/24 21:59 12.5 mls/hr Q8HR RINA Administration Vancomycin/Sodium Chloride 200 mls @ 120 mls/hr 05/12/24 22:00 05/13/24 10:34 Vancomycin/Ns 1 Gm Ivpb IV 05/19/24 21:59 120 mls/hr Q12H RINA Administration Protocol Bumetanide 20 mg/ IV 80 mls @ 8 mls/hr 05/13/24 11:17 05/13/24 12:26 Miscellaneous Supplies IV 05/13/24 21:16 2 mg/hr .Q10H ONE 8 mls/hr Administration 2 MG/HR Insulin Glargine 70 unit 05/13/24 21:00 Insulin Glargine (Lantus) 5 Unit/0.05 Ml (Per 5 Units) SC 06/12/24 20:59 HS RINA Insulin Human Lispro 7 unit 05/13/24 11:30 05/13/24 11:38 Insulin Lispro (Admelog) 1 Unit/0.01 Ml Unit SC 06/12/24 11:29 Not Given AC [facility] Insulin Human Lispro 0 unit 05/13/24 09:00 05/13/24 11:38 Insulin Lispro (Admelog) 1 Unit/0.01 Ml Unit SC 06/12/24 08:59 Not Given AC [facility] Protocol Metoprolol Succinate 100 mg 05/10/24 19:00 05/13/24 08:55 Metoprolol Succinate Xl 25 Mg Tabcr PO 06/09/24 18:59 100 mg QDAY RINA Administration Morphine Sulfate 4 mg 05/11/24 12:23 05/13/24 01:55 Morphine Sulf Inj 10 Mg/Ml Vial IVP 05/16/24 12:22 4 mg Q8HR PRN Administration abdominal pain Ondansetron HCl 4 mg 05/10/24 17:38 Ondansetron Inj 2 Mg/Ml Inj 2 Ml IV 06/09/24 17:37 Q6H PRN NAUSEA OR VOMITING Protocol Pharmacy Consult 1 each 05/12/24 11:20 Vancomycin Pharmacy To Dose 1 Each Each IV 06/11/24 11:19 QDAY PRN PROTOCOL Pregabalin 150 mg 05/12/24 22:00 05/13/24 05:36 Pregabalin 75 Mg Capsule PO 06/11/24 21:59 150 mg TID RINA Administration Plan 54 y/o M with PMHx significant for CAD, HFpEF, CVA with B/L endarterectomy, PE on Eliquis, hypertension, OHS/CAROLYN, cirrhosis, insulin-dependent type 2 diabetes who presented to ED due to weakness, admitted for acute hypoxic respiratory failure. #ZENY #Suspected nephrotic syndrome due to progressive diabetic nephropathy Patient has been diabetic for more than 15 years. Patient has baseline kidney function within normal limits. Patient kidney function is worsened over course of hospitalization. Patient has received IV fluids due to concern for sepsis during stay. On exam patient appears fluid overloaded, anasarca. Dry mucous membranes. Urinalysis showed 3+ protein. Urine random creatinine 70, urine random total protein 656. Urine protein/creatinine 9.3 g. A1c 13.6% as of 05/11/2024. BUN 53, creatinine 2.4, eGFR 31. Patient had 1.8 L output on Bumex 2 mg IV twice daily, changed to Bumex drip. Kidney function improved. Remains severely volume overloaded. Plan: -Holding IV fluids -Bumex drip 2 mg/h x 10 hours -avoid nephrotoxic agents -Monitor daily labs -Strict I's and O's #AHRF 2/2 sepsis-resolved #Sepsis 2/2 GNR bacteremia #Hypertensive emergency-resolving #Troponinemia 2/2 demand ischemia-resolved #History HFpEF #History of CAROLYN/OHS #Poorly controlled Insulin-dependent type 2 diabetes #Elevated CK-resolved #History hypertension #History cirrhosis #History PE #History of CAD Management as per primary team. DVT prophylaxis: Eliquis GI prophylaxis: None Diet: Carb consistent level, fluid restriction 1500 cc Lines: Wound VAC, Wright cath, peripheral IV Code status: Full code Thank you for allow me to anticipate the care of this patient. Plan of care discussed with attending Dr. Burger. Enrique Justice MD PGY-1 Attending Provider Attestation/Addendum Patient seen and examined with resident physician Dr. Justice. Note reviewed, agree with findings and recommendations. Add Bumex drip as patient is severely anasarcic. Suspect from nephrotic syndrome/diastolic heart failure.
--- NOTE | 2024-05-13 13:39 | ESPR_ITS ---
<Statement entered by Jaquelin Sparrow MD - 05/13/24 15:54> I discussed with and supervised the international recruiter physician who took care of this patient. I personally saw and examined the patient and discussed the assessment and plan with the entire medicine team, including my attending , I agree with most of the assessment and plan as documented below Jaquelin Sparrow M.D. PGY-2 Documentation for date of: 05/13/24 Subjective Subjective Interval history: 05/13/2024: No acute overnight events to report. Patient seen and examined in hospital bed having some slurred speech but able to answer questions appropriately. Patient states that he is in a lot of pain secondary to wound VAC causing suctioning sensation on left inguinal region. Patient also points to his left thigh region and states that it is very painful, as a result will order a CT left lower ext w/o contrast to rule out possible compartment syndrome. Patient has not adequately responded to IV Bumex 2 mg twice daily as he is only put out about 1.8 L of urine; moreover, nephrology started the patient on Bumex drip. If patient does not respond with Bumex drip, nephrology recommends doing hemodialysis for volume overload status. Continuing to treat patient's gram-negative bacteria which came back as pansensitive E. coli; will continue Vanco and Zosyn at this time as patient's white blood cell count is elevated; however, will change to ceftriaxone once it does. Also increased patient's insulin regimen; increased Lantus to 70 units and lispro 7 units Premeal along with sliding scale insulin. Exam Vital Signs Temp Pulse Resp BP Pulse Ox O2 Del Method O2 Flow Rate 98.2 F 86 21 H 121/76 93 L Room Air 2 05/13/24 12:00 05/13/24 12:26 05/13/24 12:00 05/13/24 12:26 05/13/24 12:00 05/13/24 12:00 05/12/24 04:00 FiO2 35 05/12/24 04:00 Narrative Exam General: awake, morbid obese, slurred speech but answers questions appropriately, appears stated age HEENT: Normocephalic, atraumatic, PERRLA, EOMI Heart: Regular rate and rhythm, no murmurs. Lungs: decreased breath sounds noted bilaterally in view of body habitus Abdomen: Soft, obese and nontender on all four quadrants. Severe tenderness noted in the left groin and thigh area, s/p I&D with wound vac Extremities: Bilateral pitting 4+ pedal edema is noted Skin: No rash. Ecchymotic patch is noted on the abdomen right to the umbilicus. Neuro: No focal neurologic deficits noted, lithographer helper strength 5/5 Objective Labs 05/13/24 04:55 05/13/24 04:55 Labs: Laboratory Results - last 24 hr 05/12/24 05/12/24 05/13/24 13:40 15:30 04:55 WBC 17.5 H D RBC 3.27 L Hgb 8.4 L Hct 26.9 L MCV 82 MCH 25.7 MCHC 31.2 RDW Std Deviation 48.1 H Plt Count 201 D Neut % (Auto) 89 H Lymph % (Auto) 3 L Clare % (Auto) 6 Eos % (Auto) 1 Baso % (Auto) 0 Neut # (Auto) 15.5 H Lymph # (Auto) 0.5 L Clare # (Auto) 1.1 H Eos # (Auto) 0.1 Baso # (Auto) 0.0 Immature Gran # (Auto) 0.19 H Absolute Nucleated RBC 0.06 H Immature Gran % 1 H Nucleated RBC % 0 Puncture Site ABG pH ABG pCO2 ABG pO2 ABG HCO3 ABG O2 Saturation ABG Base Excess FiO2 Sodium 131 L 134 L Potassium 4.2 4.2 Chloride 99 103 Carbon Dioxide 23.2 21.8 Anion Gap 9 9 BUN 53 H 60 H Creatinine 2.4 H 2.2 H Estim Creat Clear Calc 48.2 L 54.9 L eGFR 31 L 34 L BUN/Creatinine Ratio 22 H 27 H Glucose 355 H 123 H D Calculated Osmolality 291 286 Calcium 8.7 8.5 Corrected Calcium 9.2 Total Bilirubin < 0.2 L AST 36 H ALT 23 Alkaline Phosphatase 136 H D Total Protein 6.0 Albumin 3.1 L D Globulin 2.9 Albumin/Globulin Ratio 1.1 L Ur Collection Type Catheter Urine Color Yellow Urine Clarity Turbid A Urine pH 6.0 Ur Specific [place] 1.019 Urine Protein 3+ A Urine Glucose (UA) 4+ A Urine Ketones Negative Urine Blood 2+ A Urine Nitrite Negative Urine Bilirubin Negative Urine Urobilinogen (Auto) Negative Ur Leukocyte Esterase Negative Urine RBC 50 H Urine WBC 11 H Ur Squamous Epith Cells 0 Amorphous Crystals Present A Urine Bacteria Rare Hyaline Casts < 1 Granular Casts < 1 Ur Random Creatinine 70 U Random Total Protein 656 H 05/13/24 11:23 WBC RBC Hgb Hct MCV MCH MCHC RDW Std Deviation Plt Count Neut % (Auto) Lymph % (Auto) Clare % (Auto) Eos % (Auto) Baso % (Auto) Neut # (Auto) Lymph # (Auto) Clare # (Auto) Eos # (Auto) Baso # (Auto) Immature Gran # (Auto) Absolute Nucleated RBC Immature Gran % Nucleated RBC % Puncture Site Right Radial ABG pH 7.36 ABG pCO2 40 ABG pO2 75 L D ABG HCO3 23 ABG O2 Saturation 94 ABG Base Excess -3 FiO2 21 Sodium Potassium Chloride Carbon Dioxide Anion Gap BUN Creatinine Estim Creat Clear Calc eGFR BUN/Creatinine Ratio Glucose Calculated Osmolality Calcium Corrected Calcium Total Bilirubin AST ALT Alkaline Phosphatase Total Protein Albumin Globulin Albumin/Globulin Ratio Ur Collection Type Urine Color Urine Clarity Urine pH Ur Specific [place] Urine Protein Urine Glucose (UA) Urine Ketones Urine Blood Urine Nitrite Urine Bilirubin Urine Urobilinogen (Auto) Ur Leukocyte Esterase Urine RBC Urine WBC Ur Squamous Epith Cells Amorphous Crystals Urine Bacteria Hyaline Casts Granular Casts Ur Random Creatinine U Random Total Protein ABG Interpretation ABG results: 05/10/24 05/13/24 12:26 11:23 ABG pH 7.34 L 7.36 ABG pCO2 43 40 ABG pO2 127 H 75 L D ABG HCO3 23 23 ABG O2 Saturation 100 H 94 ABG Base Excess -2 -3 Quality Measures Quality Measures sepsis Current suspected stage: sepsis Possible source: unknown Blood cultures ordered: completed in ED Antibiotic ordered: Yes Assessment & Plan Assessment Current Active Medications: Generic Name Dose Route Start Last Admin Trade Name Freq PRN Reason Stop Dose Admin Acetaminophen 650 mg 05/11/24 11:28 Acetaminophen 325 Mg Tablet PO 06/09/24 17:37 Q6H PRN Fever >100.3 or pain(1-3) Amlodipine Besylate 5 mg 05/12/24 09:00 05/13/24 08:56 Amlodipine Besylate 5 Mg Tablet PO 06/11/24 08:59 5 mg QDAY RINA Administration Apixaban 5 mg 05/11/24 14:00 05/13/24 08:56 Apixaban 2.5 Mg Tablet PO 06/01/24 13:59 5 mg BID RINA Administration Atorvastatin Calcium 40 mg 05/12/24 21:00 05/12/24 21:41 Atorvastatin Calcium 20 Mg Tablet PO 06/11/24 20:59 40 mg HS RINA Administration Bumetanide 2 mg 05/12/24 15:00 05/13/24 08:56 Bumetanide Inj 0.25 Mg/Ml Vial 4 Ml IVP 06/11/24 14:59 2 mg BID RINA Administration Dextrose 25 ml 05/10/24 19:30 Dextrose 50%-Water Inj 50 Ml Syringe IV 06/09/24 19:29 Q15MIN PRN BG 50-70 responsive npo pt Dextrose 50 ml 05/10/24 19:30 Dextrose 50%-Water Inj 50 Ml Syringe IV 06/09/24 19:29 Q15MIN PRN BG <50 OR BG <70 & pt unresponsive Glucagon 1 mg 05/10/24 19:30 Glucagon Inj 1 Mg Vial IM Q15MIN PRN BG <70, and no IV access Hydralazine HCl 10 mg 05/10/24 19:11 05/12/24 11:54 Hydralazine Inj 20 Mg/Ml Vial IV 06/09/24 19:10 10 mg Q6H PRN Administration High blood pressure Piperacillin/Tazobactam/Dextrose 50 mls @ 12.5 mls/hr 05/10/24 22:00 05/13/24 13:31 Zosyn IV 05/17/24 21:59 12.5 mls/hr Q8HR RINA Administration Vancomycin/Sodium Chloride 200 mls @ 120 mls/hr 05/12/24 22:00 05/13/24 10:34 Vancomycin/Ns 1 Gm Ivpb IV 05/19/24 21:59 120 mls/hr Q12H RINA Administration Protocol Bumetanide 20 mg/ IV 80 mls @ 8 mls/hr 05/13/24 11:17 05/13/24 12:26 Miscellaneous Supplies IV 05/13/24 21:16 2 mg/hr .Q10H ONE 8 mls/hr Administration 2 MG/HR Insulin Glargine 70 unit 05/13/24 21:00 Insulin Glargine (Lantus) 5 Unit/0.05 Ml (Per 5 Units) SC 06/12/24 20:59 HS RINA Insulin Human Lispro 7 unit 05/13/24 11:30 05/13/24 11:38 Insulin Lispro (Admelog) 1 Unit/0.01 Ml Unit SC 06/12/24 11:29 Not Given AC [facility] Insulin Human Lispro 0 unit 05/13/24 09:00 05/13/24 11:38 Insulin Lispro (Admelog) 1 Unit/0.01 Ml Unit SC 06/12/24 08:59 Not Given AC [facility] Protocol Metoprolol Succinate 100 mg 05/10/24 19:00 05/13/24 08:55 Metoprolol Succinate Xl 25 Mg Tabcr PO 06/09/24 18:59 100 mg QDAY RINA Administration Morphine Sulfate 4 mg 05/11/24 12:23 05/13/24 01:55 Morphine Sulf Inj 10 Mg/Ml Vial IVP 05/16/24 12:22 4 mg Q8HR PRN Administration abdominal pain Ondansetron HCl 4 mg 05/10/24 17:38 Ondansetron Inj 2 Mg/Ml Inj 2 Ml IV 06/09/24 17:37 Q6H PRN NAUSEA OR VOMITING Protocol Pharmacy Consult 1 each 05/12/24 11:20 Vancomycin Pharmacy To Dose 1 Each Each IV 06/11/24 11:19 QDAY PRN PROTOCOL Pregabalin 150 mg 05/12/24 22:00 05/13/24 13:31 Pregabalin 75 Mg Capsule PO 06/11/24 21:59 150 mg TID [facility] Administration Plan 54-year-old male with past medical history of insulin-dependent diabetes mellitus, CAD, HFpEF, CVA with b/l endarterectomy, pulmonary embolism on Eliquis, hypertension, obstructive sleep apnea, hypertension, OHS/CAROLYN, cirrhosis, recent hospital admission 2 weeks ago for CHF exacerbation and left groin abscess presented to the ED after family found patient on the floor. Initially per ED he presented with altered mental status. However was able to regain consciousness after some time while on BiPAP. Patient being admitted for AHRF 2/2 sepsis 2/2 cellulitis. #Acute CHF Exacerbation #History HFpEF Most recent echo from 04/24/2024 shows EF 55-60%. At home patient takes bumetanide 1 mg p.o. twice daily and spironolactone 50 mg p.o. twice daily. BNP elevated Chest x-ray shows mild to moderate CHF Hypervolemic with exam findings showing +4 pitting edema Plan: On Bumex gtt per nephrology recs Will consider doing HD if patient does not respond adequately to Bumex gtt Strict I&Os Low sodium diet Keep potassium >4, mag >2 Daily CBC, CMP #AHRF 2/2 CHF exacerbation vs. sepsis, improving Ddx: He has history of CAROLYN/OHS, with noncompliance of any CPAP machine at home. 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 Presented to ED saturating at 84% on room air. Subsequently started on oxy mask high flow and progressed to BiPAP. Now saturating 97-98% on 10 L. Chest x-ray negative for any acute changes. Revealing moderate CHF. ABG 05/13 shows: pH 7.36, pCO2 40, pO2 75, Hco3 23 Plan: Treating underlying CHF exacerbation and sepsis, GNR bacteremia Continue BiPAP at bedtime DuoNeb treatment as needed Continuous pulse ox monitoring #Sepsis 2/2 GNR bacteremia Most likely abscess --local pain in left groin, tenderness, warmth, swelling, oozing. SIRS 4/4. Received 1 L bolus normal saline in ED. Pro-Angelo elevated 12, normal lactic acid 0.9 Blood cultures positive for GNR Wound culture positive for GPC [place]-sensitive ecoli grown from cultures Repeat blood cultures no growth 24 hours Plan: Continue IV vancomycin Continue IV Zosyn Acetaminophen as needed for fever Did not receive sepsis protocol fluids. Concern for worsening hypertension and pulmonary edema Dr. Haney consulted??s/p I&S. Noticeable thick purulent material drained, subcutaneous tissue necrosis. Area thoroughly irrigated and packed. Wound care consulted for daily dressing and management of wound VAC #Hypertensive emergency, resolved Initial blood pressures at the time of presentation to the ED is 180/102 mmHg. Patient was given a dose of hydralazine 10 Mg and nitroglycerin topical patch. Despite those, blood pressures are still elevated so patient was started on nicardipine drip 5 Mg per hour Plan: Hydralazine 10mg IV q6hr PRN On home medication metoprolol succinate 100 p.o. daily Continue Amlodipine 5 mg p.o. daily Continue monitoring blood pressure #Troponinemia 2/2 demand ischemia, resolved Most likely NSTEMI II related to underlying sepsis vs NSTEMI 1 as patient does have history of CAD. Troponins are downtrending from 0.103 to 0.095. EKG shows no acute ischemic changes. Plan: Continue monitoring for any changes in symptoms #ZENY, improving Ddx: Prerenal EZNY due to hypoperfusion in setting of sepsis vs cardiorenal syndrome vs nephrotoxic agents Creatinine downtrending Plan: Holding aggressive fluids for now due to concern of worsening CHF Nephrology consulted; appreciate recommendations Avoid nephrotoxic agents Daily CMP #History of CAROLYN/OHS Unsure at this time patient is compliant with any CPAP machine at home. not compliant with use apparently Plan: Continue BiPAP at night #Poorly controlled Insulin-dependent type 2 diabetes On admission initial glucose 461. Last A1c 11.7 in October 2023. Patient takes Ozempic, 50 units insulin glargine, aspart sliding scale for diabetes at home. A1c >14 Plan: Held home medications Bedside blood glucose checks ACHS Increased to 70 units glargine Lispro 7 pre-meals Continue insulin sliding scale Carb consistent low diet Diabetes education #History hypertension Continue metoprolol succinate 100 p.o. daily #History cirrhosis Follow-up outpatient #History PE Continue apixaban 5 mg p.o. twice daily #History of CAD Continue atorvastatin 40 mg p.o. at bedtime Health Maintenance: Lines: PIV Diet: Carb consistent Bowel: Senna GI prophylaxis: Not needed DVT prophylaxis: Eliquis Dispo: s/p I&D left groin and volume overloaded requiring bumex gtt Code: Full Jorge Suresh, PGY-1 Attending Provider Attestation/Addendum I have examined the patient, reviewed labs and imaging findings, discussed the case with the resident(s), and reviewed entered orders. I agree with the plan of care as outlined in this note, with these additional summaries/recommendations: #Sepsis #Cellulitis #Left Groin Abscess #E. Coli bacteremia CT ABD/PLV on admission: Extensive air densities in the soft tissue left groin extending into the anterior and lateral upper thigh 05/10 Blood cx: E. coli from aerobic and anaerobic bottles 05/11 Abscess cx: E. coli 05/12 Repeat blood cx: No growth at 24 hours General Surgery consulted and following Wound care following 05/11: Status post I&D of left thigh/groin abscess with debridement of necrotic tissue Wound VAC in place Continue pain management and broad-spectrum IV antibiotics vancomycin and Zosyn for now given severity of infection on admission and persistent leukocytosis. We will de-escalate when appropriate. Patient will need 2 weeks of antibiotics for bacteremia although will complete course with oral regimen once more improved. Patient continues to report intractable severe pain and will repeat imaging # Acute kidney injury # Fluid overload Likely multifactorial secondary to diabetic nephropathy plus possible cardiorenal syndrome Nephrology consulted, recommendations appreciated Renally dose medications and avoid nephrotoxic agents Fluid restriction Start Bumex gtt. and monitor urinary output. Will discuss with nephrology about starting EL/ARB once renal function more improved. If no response patient may require temporary dialysis. Repeat renal panel in AM. # Hypertensive emergency-resolved # Primary hypertension Systolic blood pressure was noted to be trending up into the 200s on admission Plan: Blood pressure now significantly improved. Continue Norvasc 5 mg p.o. daily and metoprolol succinate XL 100 mg p.o. daily. As needed hydralazine. # HFpEF 04/24/2024 shows EF 55-60%. Plan: Patient has significant fluid overload at this time. Continue aggressive diuresis. #CAROLYN/OHS Patient previously endorsed using home CPAP although is now denying using 1. Patient appears tired and somnolent in the morning without overnight CPAP/BiPAP. Encouraged and counseled patient at bedside to use although he appeared uninterested # Uncontrolled diabetes mellitus type 2 Multiple A1c's on file greater than 14%. Diabetic education and dietary consult Continue basal and bolus insulin We will attempt tight glycemic control in the setting of severe infection # History of pulmonary embolism Continue home apixaban 5 mg p.o. twice daily # Morbid obesity Plan: Outpatient follow-up for weight loss management Dr. Whitfield
[2024-05-13] MEDS: SENNA TABLET 1 TAB PO (15:31)
[2024-05-13] MEDS: INSULIN LISPRO (AdmeLOG) 1 UNIT/0.01 ML UNIT 7 UNIT SC (17:32)
--- NOTE | 2024-05-13 19:14 | PD.SURPROG ---
Documentation for date of: 05/13/24 Subjective Subjective Brief History: Patient is a morbidly obese white male who said that he has had pain in the groin for the past couple of days. He could not give any history because of the oxygen mask. He was admitted with a history of altered mental status and sepsis. He also has a acute respiratory failure with hypoxia. He has a history of generalized anasarca and chronic low back pain and diabetes mellitus which is poorly controlled. He also has a history of hypertension heart disease he has a history of COPD. It is very difficult to get information from the patient because he is not able to give definite history. Patient has a history of perianal cellulitis in the past Narrative: The patient is experiencing considerable amount of pain even though abscess has been drained the wound VAC is in place. Exam Vital Signs Temp Pulse Resp BP Pulse Ox O2 Del Method O2 Flow Rate 97.7 F 80 16 138/70 H 99 Room Air 2 05/13/24 16:00 05/13/24 16:00 05/13/24 16:00 05/13/24 16:00 05/13/24 16:00 05/13/24 16:00 05/12/24 04:00 FiO2 35 05/12/24 04:00 His vital signs are normal Routine Abdominal Exam Comments: Abdominal examination shows no tenderness in the lower abdomen. The groin wound is covered with wound VAC dressing Results Results: Laboratory Laboratory Narrative: WBCs improving and it is around 17,000 Assessment & Plan Assessment Additional comments: Impression: We shall continue present treatment with antibiotics Plan Plan: We increase pain medications to control his pain Procedures Procedures Incision and drainage of the abscess left thigh and groin and debridement of necrotic tissue.
[2024-05-13] MEDS: INSULIN GLARGINE (Lantus) 5 UNIT/0.05 ML (PER 5 UNITS) 70 UNIT SC (21:21)
[2024-05-13] MEDS: HYDROcodone/APAP 5/325 TABLET 1 TAB PO (21:21)
[2024-05-13] MEDS: ATORVASTATIN CALCIUM 20 MG TABLET 40 MG PO (21:21)
--- NOTE | 2024-05-13 22:00 | PC.NURSE ---
patient alert, oriented x3, respirations are even and unlabored, no acute distress at this time, call light within reach, plan of care ongoing.
[2024-05-13 22:52] LABS: Vancomycin,Trough 25.5 mcg/mL (5.0-10.0)
--- NOTE | 2024-05-13 23:00 | PC.NURSE ---
received results of trough level 25.5. MD made aware also informed patient is alert oriented x3, no acute distress noted. no new orders received at this time. plan of care ongoing.
--- NOTE | 2024-05-13 23:25 | PC.NURSE ---
Addendum entered by Aisha Hicks RN 05/13/24 23:26: MD CHAD MARTINI AWARE. Original Note: AT 2200 STOPPED VANCOMYCIN DUE TO SCHEDULED TROUGH LEVEL BLOOD DRAWN.
[2024-05-14] VITALS (12 sets, daily range): BP systolic 108–154; BP diastolic 55–78; PULSE 77–88; RESP 14–56; TEMP 36.2–36.6; O2SAT 93–99
[2024-05-14] MEDS: PIPER/TAZO 3.375 GM 50 ML IV ×3 (05:32→22:52)
[2024-05-14] MEDS: PREGABALIN 75 MG CAPSULE 150 MG PO ×3 (05:32→21:33)
[2024-05-14 06:18] LABS: Basophils # (Auto) 0.1 Thou/mm3 (0.0-0.2); Basophils % (Auto) 0 % (0-2.5); Eosinophils # (Auto) 0.1 Thou/mm3 (0.0-0.5); Eosinophils % (Auto) 0 % (0-10); Hematocrit 25.8 % (41.0-53.0); Immature Granulocytes % (Auto) 3 % (0-0); Immature Granulocytes Auto 0.58 Thou/mm3 (0.00-0.00); Lymphocytes # (Auto) 0.7 Thou/mm3 (1.0-4.8); Lymphocytes % (Auto) 3 % (10-50); Mean Corpuscular Hemoglobin 25.9 pg (25.0-35.0); Mean Corpuscular Volume 84 fL (80-100); Monocytes # (Auto) 1.4 Thou/mm3 (0.0-0.8); Monocytes % (Auto) 6 % (0-12); Neutrophils # (Auto) 19.9 Thou/mm3 (1.8-7.7); Neutrophils % (Auto) 88 % (37-80); Nucleated Red Blood Cell # 0.02 Thou/mm3 (0.00-0.00); Nucleated Red Blood Cell % 0 /100 WBC (0); Platelet Count 200 Thou/mm3 (140-440); RDW Standard Deviation 48.9 fL (35.1-43.9); Red Blood Count 3.09 Miln/mm3 (4.50-5.90); White Blood Count 22.8 Thou/mm3 (3.8-10.6)
[2024-05-14 06:46] LABS: Albumin, Serum 2.9 gm/dL (3.5-5.0); Anion Gap 9 (7-16); BUN/Creatinine Ratio 26 Ratio (12-20); Blood Urea Nitrogen 57 mg/dL (9-23); Calcium 8.2 mg/dL (8.3-10.6); Calcium (Corrected) 9.1 mg/dL (8.5-10.1); Carbon Dioxide 22.7 mMol/L (20.0-31.0); Chloride 102 mMol/L (98-107); Creatinine (Component) 2.2 mg/dL (0.6-1.3); Estimated Creatinine Clearance 54.9 mL/min (>60); Glucose 143 mg/dL (74-106); Magnesium 1.9 mg/dL (1.6-2.6); Osmolality,Calculated 286 (275-295); Potassium 3.8 mMol/L (3.4-5.1); Sodium 134 mMol/L (136-145); Vancomycin,Random 27.6 mcg/mL; eGFR 34 See Note
[2024-05-14] MEDS: INSULIN LISPRO (AdmeLOG) 1 UNIT/0.01 ML UNIT SC ×3 (08:00→17:22)
[2024-05-14] MEDS: APIXABAN 2.5 MG TABLET 5 MG PO ×2 (08:05→21:24)
[2024-05-14] MEDS: MORPHINE SULF INJ 10 MG/ML VIAL 4 MG IVP (08:05)
[2024-05-14] MEDS: SENNA TABLET 1 TAB PO (08:06)
[2024-05-14] MEDS: amLODIPine BESYLATE 5 MG TABLET PO (08:06)
[2024-05-14] MEDS: METOPROLOL SUCCINATE XL 25 MG TABCR 100 MG PO (08:06)
[2024-05-14] MEDS: BUMETANIDE INJ 0.25 MG/ML VIAL 4 ML 2 MG IVP (09:46)
[2024-05-14] MEDS: BUMETANIDE INJ 20 MG in CONTAINER,EMPTY 50 ML 1 BAG 8 MG IV ×2 (10:49→21:18)
[2024-05-14] MEDS: ACETAMINOPHEN 325 MG TABLET 650 MG PO (11:53)
--- NOTE | 2024-05-14 11:56 | ESPR_ITS ---
Documentation for date of: 05/14/24 Subjective Subjective Interval history: Mekhi Smith is 54 y/o M with PMHx significant for CAD, HFpEF, CVA with B/L endarterectomy, PE on Eliquis, hypertension, OHS/CAROLYN, cirrhosis, insulin- dependent type 2 diabetes who presented to ED due to weakness. Family stated that they found him on the floor at home. N patient initially unable to provide history, most history was obtained from chart review. He was recently discharged from hospital on 04/28/2024 due to CHF exacerbation and lower extremity edema. He was also diagnosed to have left groin abscess and recommended percutaneous drainage in the outpatient setting. However, patient did not follow-up with treatment. Patient was started on BiPAP while in the ED. Is able to respond to yes or no questions with head nodding. In the ED, patient was found to have hypertensive emergency 180/102 mmHg, tachycardic 100, tachypneic 28/min, low-grade fever 100.8 ?F, SpO2 100% on 10 L OxyMask. Labs significant for leukocytosis 21.8, anemia hemoglobin 9, platelet 203, elevated ESR 103, D-dimer 1350, ABG unremarkable, sodium 132, potassium 3.7, creatinine 1.4 elevated from baseline, glucose 369, lactic acid normal 0.9, alk phos 156, CK 284, elevated troponin 0.103, CRP 26, BNP 07/23/2000, Pro-Angelo 12, UA 3+ protein, 4+ glucose, 1+ ketones, negative nitrite/negative leukocyte Estrace, hematuria, urine tox positive for THC and opiates. Diagnostic imaging: No acute ischemic changes on EKG, chest x-ray consistent with moderate CHF, CT head negative for acute hemorrhage, gallbladder ultrasound revealing significant hepatomegaly suspicious for primary hepatocellular disease. No evidence of acute cholecystitis. Patient received furosemide 80 IV x 1, labetalol 20 x 1, hydralazine 10 x 1, [id number] mg, magnesium sulfate 2 g x 1, DuoNeb treatment x 1, methylprednisone 125 mg x 1, Rocephin x 1, and [address] Haney was consulted and he was admitted for AHRF 2/2 sepsis and left groin abscess. Patient received I&D of left groin area, with thick purulent and necrotic material. Wound was packed with wound VAC placement. During this time patient kidney function continued to get progressively worse. Patient received additional 1 L bolus normal saline due to sepsis protocol. Nephrology was consulted due to worsening ZENY, concern for prerenal ZENY versus cardiorenal syndrome with fluid overload. Patient seen and examined in telemetry. Patient resting in bed, expresses mild discomfort. Patient complains of shortness of breath, states he is extremely swollen, he believes due to excess fluids. Patient has anasarca, severe pain continue to bilateral lower extremities, swollen bilateral upper extremities. Lung sounds difficult to auscultate due to poor body habitus, signs of congestion in bilateral upper lobes. Strong suspect ZENY due to fluid overload in setting of CHF. BUN 53, creatinine 2.4, eGFR 31. Will begin diuresis, evaluate for nephrotic syndrome. 05/13: Patient seen and examined in telemetry. Patient lying in bed, increased somnolence, responsive to tactile stimulation. ABG ordered to evaluate for hypercapnia: pCO2 40, pO2 75. Patient showed some improvement in mental status in the afternoon, remains lethargic. 1.8 L urinary output despite Bumex. Sodium 134, potassium 4.2, bicarb 21.8, BUN 60, creatinine 2.2, eGFR 34. Patient maintains significant volume overload. Will place patient on Bumex drip 2 mg/h x 10 hours and reevaluate. 05/14: Patient seen and examined in telemetry. Patient laying in bed, alert and oriented, complaining of pain in his lower back. 1.8 L urinary output despite Bumex drip, patient placed on another Bumex drip. Sodium 134, potassium 3.8, bicarb 20.7, BUN 57, creatinine 2.2, EGFR 34. Patient reviewed slightly less volume overload, still significant fluid retention. Exam Vital Signs Temp Pulse Resp BP Pulse Ox O2 Del Method O2 Flow Rate 97.5 F 80 14 133/65 H 98 Nasal Cannula 2 05/14/24 08:00 05/14/24 09:46 05/14/24 08:29 05/14/24 09:46 05/14/24 08:29 05/14/24 08:00 05/14/24 08:29 FiO2 35 05/14/24 08:00 Narrative Exam PE: Gen: Well-developed and well-nourished. Mildly distressed. Obese. HEENT: NCAT, PERRLA, EOMI, anicteric conjunctivae. Dry mucous membranes. CVS: normal S1 and S2. RRR. No M/R/G. Resp: Poor lung sounds due to body habitus. Congestion in bilateral upper lobes. Abd: Abdomen diffusely distended, anasarca. MSK: Good ROM in BUE & BLE. All extremities edematous, worse in bilateral lower extremities. Blanching erythema, tenderness, swelling in pelvic area, concentrated to the left inguinal fold. Wound VAC placement in left inguinal fold. Neuro: CN II-XII grossly intact. Strength 5/5 in BUE & BLE. Alert and oriented x3. Objective Labs 05/14/24 05:37 05/14/24 05:37 Labs: Laboratory Results - last 24 hr 05/13/24 05/14/24 21:10 05:37 WBC 22.8 H D RBC 3.09 L Hgb 8.0 L Hct 25.8 L MCV 84 MCH 25.9 MCHC 31.0 RDW Std Deviation 48.9 H Plt Count 200 Neut % (Auto) 88 H Lymph % (Auto) 3 L [place] % (Auto) 6 Eos % (Auto) 0 Baso % (Auto) 0 Neut # (Auto) 19.9 H Lymph # (Auto) 0.7 L [place] # (Auto) 1.4 H Eos # (Auto) 0.1 Baso # (Auto) 0.1 Immature Gran # (Auto) 0.58 H Absolute Nucleated RBC 0.02 H Immature Gran % 3 H Nucleated RBC % 0 Sodium 134 L Potassium 3.8 Chloride 102 Carbon Dioxide 22.7 Anion Gap 9 BUN 57 H Creatinine 2.2 H Estim Creat Clear Calc 54.9 L eGFR 34 L BUN/Creatinine Ratio 26 H Glucose 143 H Calculated Osmolality 286 Calcium 8.2 L Corrected Calcium 9.1 Phosphorus 5.0 Magnesium 1.9 Albumin 2.9 L Vancomycin Trough 25.5 H* Random Vancomycin 27.6 ABG Interpretation ABG results: 05/10/24 05/13/24 12:26 11:23 ABG pH 7.34 L 7.36 ABG pCO2 43 40 ABG pO2 127 H 75 L D ABG HCO3 23 23 ABG O2 Saturation 100 H 94 ABG Base Excess -2 -3 Quality Measures Quality Measures sepsis Current suspected stage: sepsis Possible source: unknown Blood cultures ordered: completed in ED Antibiotic ordered: Yes Assessment & Plan Assessment Current Active Medications: Generic Name Dose Route Start Last Admin Trade Name Freq PRN Reason Stop Dose Admin Acetaminophen 650 mg 05/11/24 11:28 Acetaminophen 325 Mg Tablet PO 06/09/24 17:37 Q6H PRN Fever >100.3 or pain(1-3) Amlodipine Besylate 5 mg 05/12/24 09:00 05/14/24 08:06 Amlodipine Besylate 5 Mg Tablet PO 06/11/24 08:59 5 mg QDAY RINA Administration Apixaban 5 mg 05/11/24 14:00 05/14/24 08:05 Apixaban 2.5 Mg Tablet PO 06/01/24 13:59 5 mg BID RINA Administration Atorvastatin Calcium 40 mg 05/12/24 21:00 05/13/24 21:21 Atorvastatin Calcium 20 Mg Tablet PO 06/11/24 20:59 40 mg HS RINA Administration Bumetanide 2 mg 05/12/24 15:00 05/14/24 09:46 Bumetanide Inj 0.25 Mg/Ml Vial 4 Ml IVP 06/11/24 14:59 2 mg BID RINA Administration Dextrose 25 ml 05/10/24 19:30 Dextrose 50%-Water Inj 50 Ml Syringe IV 06/09/24 19:29 Q15MIN PRN BG 50-70 responsive npo pt Dextrose 50 ml 05/10/24 19:30 Dextrose 50%-Water Inj 50 Ml Syringe IV 06/09/24 19:29 Q15MIN PRN BG <50 OR BG <70 & pt unresponsive Glucagon 1 mg 05/10/24 19:30 Glucagon Inj 1 Mg Vial IM Q15MIN PRN BG <70, and no IV access Hydralazine HCl 10 mg 05/10/24 19:11 05/12/24 11:54 Hydralazine Inj 20 Mg/Ml Vial IV 06/09/24 19:10 10 mg Q6H PRN Administration High blood pressure Piperacillin/Tazobactam/Dextrose 50 mls @ 12.5 mls/hr 05/14/24 14:00 Zosyn IV 05/21/24 13:59 Q8HR RINA Protocol Bumetanide 20 mg/ IV 80 mls @ 8 mls/hr 05/14/24 10:00 05/14/24 10:49 Miscellaneous Supplies IV 06/13/24 09:59 2 mg/hr .Q10H RINA 8 mls/hr Administration 2 MG/HR Insulin Glargine 72 unit 05/14/24 21:00 Insulin Glargine (Lantus) 5 Unit/0.05 Ml (Per 5 Units) SC 06/13/24 20:59 HS [facility] Insulin Human Lispro 0 unit 05/13/24 09:00 05/14/24 08:00 Insulin Lispro (Admelog) 1 Unit/0.01 Ml Unit SC 06/12/24 08:59 4 unit AC [facility] Administration Protocol Insulin Human Lispro 8 unit 05/14/24 11:30 05/14/24 11:47 Insulin Lispro (Admelog) 1 Unit/0.01 Ml Unit SC 06/13/24 11:29 Not Given [facility] Metoprolol Succinate 100 mg 05/10/24 19:00 05/14/24 08:06 Metoprolol Succinate Xl 25 Mg Tabcr PO 06/09/24 18:59 100 mg QDAY RINA Administration Morphine Sulfate 3 mg 05/14/24 09:58 Morphine Sulf Inj 10 Mg/Ml Vial IVP 05/16/24 12:22 Q8HR PRN abdominal pain Ondansetron HCl 4 mg 05/10/24 17:38 Ondansetron Inj 2 Mg/Ml Inj 2 Ml IV 06/09/24 17:37 Q6H PRN NAUSEA OR VOMITING Protocol Pharmacy Consult 1 each 05/12/24 11:20 Vancomycin Pharmacy To Dose 1 Each Each IV 06/11/24 11:19 QDAY PRN PROTOCOL Pregabalin 150 mg 05/12/24 22:00 05/14/24 05:32 Pregabalin 75 Mg Capsule PO 06/11/24 21:59 150 mg TID RINA Administration Sennosides 1 tab 05/13/24 14:45 05/14/24 08:06 Senna Tablet PO 06/12/24 14:44 1 tab QDAY RINA Administration Protocol Plan 54 y/o M with PMHx significant for CAD, HFpEF, CVA with B/L endarterectomy, PE on Eliquis, hypertension, OHS/CAROLYN, cirrhosis, insulin-dependent type 2 diabetes who presented to ED due to weakness, admitted for acute hypoxic respiratory failure. #ZENY #Suspected nephrotic syndrome due to progressive diabetic nephropathy Patient has been diabetic for more than 15 years. Patient has baseline kidney function within normal limits. Patient kidney function is worsened over course of hospitalization. Patient has received IV fluids due to concern for sepsis during stay. On exam patient appears fluid overloaded, anasarca. Dry mucous membranes. Urinalysis showed 3+ protein. Urine random creatinine 70, urine random total protein 656. Urine protein/creatinine 9.3 g. A1c 13.6% as of 05/11/2024. BUN 53, creatinine 2.4, eGFR 31. Patient had 1.8 L output on Bumex 2 mg IV twice daily, changed to Bumex drip. Kidney function improved. Remains severely volume overloaded. Plan: -Holding IV fluids -Bumex drip 2 mg/h x 10 hours -avoid nephrotoxic agents -Monitor daily labs -Strict I's and O's #AHRF 2/2 sepsis-resolved #Sepsis 2/2 GNR bacteremia #Hypertensive emergency-resolving #Troponinemia 2/2 demand ischemia-resolved #History HFpEF #History of CRAOLYN/OHS #Poorly controlled Insulin-dependent type 2 diabetes #Elevated CK-resolved #History hypertension #History cirrhosis #History PE #History of CAD Management as per primary team. DVT prophylaxis: Eliquis GI prophylaxis: None Diet: Carb consistent level, fluid restriction 1500 cc Lines: Wound VAC, Wright cath, peripheral IV Code status: Full code Thank you for allow me to anticipate the care of this patient. Plan of care discussed with attending Dr. Burger. Enrique Justice MD PGY-1 Attending Provider Attestation/Addendum Patient seen and examined with resident physician Dr. Justice. Note reviewed, agree with findings and recommendations. Patient currently seen in telemetry. Still significantly overloaded. Continue with Bumex drip. Creatinine stable. No need for dialysis.
--- NOTE | 2024-05-14 12:13 | ESPR_ITS ---
<Statement entered by Jaquelin Sparrow MD - 05/14/24 15:02> Patient seen and examined at bedside. Will continue with Bumex gtt and monitor strict I's/O's. Continue with pain regimen and IV Abx. Patient is not as somonolent compared to yesterday, and appears to be clinically better. I discussed with and supervised the regulatory affairs internship physician who took care of this patient. I personally saw and examined the patient and discussed the assessment and plan with the entire medicine team, including my attending Dr. Whitfield, I agree with most of the assessment and plan as documented below Jaquelin Sparrow M.D. PGY-2 Documentation for date of: 05/14/24 Subjective Subjective Interval history: 05/14/2024: No acute overnight events to report, patient received Manson 5 from the night team for breakthrough pain. This morning, patient seen and examined in hospital bed reporting slightly better pain control but still reports having some discomfort from the wound VAC on his left inguinal region. General surgery, Dr. Haney, is following the patient and his recommendations are to continue IV antibiotics as there is no further needs for incision and drainage. Will add patient's home Manson as needed every 6 hours. Nephrology, Dr. Burger, is following the patient and her recommendations are to continue Bumex drip for an additional day; moreover, will reassess and see if he will require hemodialysis instead for volume overload status. Patient was informed about the adrenal nodule which was seen on CT; he understands that he will need to follow- up outpatient for reimaging studies. Exam Vital Signs Temp Pulse Resp BP Pulse Ox O2 Del Method O2 Flow Rate 97.8 F 78 17 108/55 L 93 L Nasal Cannula 2 05/14/24 12:00 05/14/24 12:00 05/14/24 12:00 05/14/24 12:00 05/14/24 12:00 05/14/24 12:00 05/14/24 12:00 FiO2 35 05/14/24 12:00 Narrative Exam General: awake, morbid obese, slurred speech but answers questions appropriately, appears stated age HEENT: Normocephalic, atraumatic, PERRLA, EOMI Heart: Regular rate and rhythm, no murmurs. Lungs: decreased breath sounds noted bilaterally in view of body habitus Abdomen: Soft, obese and nontender on all four quadrants. Severe tenderness noted in the left groin and thigh area, s/p I&D with wound vac Extremities: Bilateral pitting 4+ pedal edema is noted Skin: No rash. Ecchymotic patch is noted on the abdomen right to the umbilicus. Neuro: No focal neurologic deficits noted, outside production inspector strength 5/5 Objective Labs 05/15/24 05:02 05/15/24 05:02 Labs: Laboratory Results - last 24 hr 05/13/24 05/14/24 21:10 05:37 WBC 22.8 H D RBC 3.09 L Hgb 8.0 L Hct 25.8 L MCV 84 MCH 25.9 MCHC 31.0 RDW Std Deviation 48.9 H Plt Count 200 Neut % (Auto) 88 H Lymph % (Auto) 3 L Harding % (Auto) 6 Eos % (Auto) 0 Baso % (Auto) 0 Neut # (Auto) 19.9 H Lymph # (Auto) 0.7 L Harding # (Auto) 1.4 H Eos # (Auto) 0.1 Baso # (Auto) 0.1 Immature Gran # (Auto) 0.58 H Absolute Nucleated RBC 0.02 H Immature Gran % 3 H Nucleated RBC % 0 Sodium 134 L Potassium 3.8 Chloride 102 Carbon Dioxide 22.7 Anion Gap 9 BUN 57 H Creatinine 2.2 H Estim Creat Clear Calc 54.9 L eGFR 34 L BUN/Creatinine Ratio 26 H Glucose 143 H Calculated Osmolality 286 Calcium 8.2 L Corrected Calcium 9.1 Phosphorus 5.0 Magnesium 1.9 Albumin 2.9 L Vancomycin Trough 25.5 H* Random Vancomycin 27.6 ABG Interpretation ABG results: 05/10/24 05/13/24 12:26 11:23 ABG pH 7.34 L 7.36 ABG pCO2 43 40 ABG pO2 127 H 75 L D ABG HCO3 23 23 ABG O2 Saturation 100 H 94 ABG Base Excess -2 -3 Quality Measures Quality Measures sepsis Current suspected stage: sepsis Possible source: unknown Blood cultures ordered: completed in ED Antibiotic ordered: Yes Assessment & Plan Assessment Current Active Medications: Generic Name Dose Route Start Last Admin Trade Name Freq PRN Reason Stop Dose Admin Acetaminophen 650 mg 05/11/24 11:28 05/14/24 11:53 Acetaminophen 325 Mg Tablet PO 06/09/24 17:37 650 mg Q6H PRN Administration Fever >100.3 or pain(1-3) Hydrocodone Bitart/Acetaminophen 1 tab 05/14/24 12:02 Hydrocodone/Apap 10/325 Tab PO 05/19/24 12:00 Q6HR PRN Pain (Scale Score 4-6) Amlodipine Besylate 5 mg 05/12/24 09:00 05/14/24 08:06 Amlodipine Besylate 5 Mg Tablet PO 06/11/24 08:59 5 mg QDAY RINA Administration Apixaban 5 mg 05/11/24 14:00 05/14/24 08:05 Apixaban 2.5 Mg Tablet PO 06/01/24 13:59 5 mg BID RINA Administration Atorvastatin Calcium 40 mg 05/12/24 21:00 05/13/24 21:21 Atorvastatin Calcium 20 Mg Tablet PO 06/11/24 20:59 40 mg HS RINA Administration Bumetanide 2 mg 05/12/24 15:00 05/14/24 09:46 Bumetanide Inj 0.25 Mg/Ml Vial 4 Ml IVP 06/11/24 14:59 2 mg BID RINA Administration Dextrose 25 ml 05/10/24 19:30 Dextrose 50%-Water Inj 50 Ml Syringe IV 06/09/24 19:29 Q15MIN PRN BG 50-70 responsive npo pt Dextrose 50 ml 05/10/24 19:30 Dextrose 50%-Water Inj 50 Ml Syringe IV 06/09/24 19:29 Q15MIN PRN BG <50 OR BG <70 & pt unresponsive Glucagon 1 mg 05/10/24 19:30 Glucagon Inj 1 Mg Vial IM Q15MIN PRN BG <70, and no IV access Hydralazine HCl 10 mg 05/10/24 19:11 05/12/24 11:54 Hydralazine Inj 20 Mg/Ml Vial IV 06/09/24 19:10 10 mg Q6H PRN Administration High blood pressure Piperacillin/Tazobactam/Dextrose 50 mls @ 12.5 mls/hr 05/14/24 14:00 Zosyn IV 05/21/24 13:59 Q8HR RINA Protocol Bumetanide 20 mg/ IV 80 mls @ 8 mls/hr 05/14/24 10:00 05/14/24 10:49 Miscellaneous Supplies IV 06/13/24 09:59 2 mg/hr .Q10H RINA 8 mls/hr Administration 2 MG/HR Insulin Glargine 72 unit 05/14/24 21:00 Insulin Glargine (Lantus) 5 Unit/0.05 Ml (Per 5 Units) SC 06/13/24 20:59 [facility] Insulin Human Lispro 0 unit 05/13/24 09:00 05/14/24 11:53 Insulin Lispro (Admelog) 1 Unit/0.01 Ml Unit SC 06/12/24 08:59 4 unit [facility] Administration Protocol Insulin Human Lispro 8 unit 05/14/24 11:30 05/14/24 11:47 Insulin Lispro (Admelog) 1 Unit/0.01 Ml Unit SC 06/13/24 11:29 Not Given [facility] Metoprolol Succinate 100 mg 05/10/24 19:00 05/14/24 08:06 Metoprolol Succinate Xl 25 Mg Tabcr PO 06/09/24 18:59 100 mg QDAY RINA Administration Morphine Sulfate 3 mg 05/14/24 12:03 Morphine Sulf Inj 10 Mg/Ml Vial IVP 05/16/24 12:22 Q8HR PRN Pain 7-10 Ondansetron HCl 4 mg 05/10/24 17:38 Ondansetron Inj 2 Mg/Ml Inj 2 Ml IV 06/09/24 17:37 Q6H PRN NAUSEA OR VOMITING Protocol Pharmacy Consult 1 each 05/12/24 11:20 Vancomycin Pharmacy To Dose 1 Each Each IV 06/11/24 11:19 QDAY PRN PROTOCOL Pregabalin 150 mg 05/12/24 22:00 05/14/24 05:32 Pregabalin 75 Mg Capsule PO 06/11/24 21:59 150 mg TID RINA Administration Sennosides 1 tab 05/13/24 14:45 05/14/24 08:06 Senna Tablet PO 06/12/24 14:44 1 tab QDAY RINA Administration Protocol Plan 54-year-old male with past medical history of insulin-dependent diabetes mellitus, CAD, HFpEF, CVA with b/l endarterectomy, pulmonary embolism on Eliquis, hypertension, obstructive sleep apnea, hypertension, OHS/CAROLYN, cirrhosis, recent hospital admission 2 weeks ago for CHF exacerbation and left groin abscess presented to the ED after family found patient on the floor. Initially per ED he presented with altered mental status. However was able to regain consciousness after some time while on BiPAP. Patient being admitted for AHRF 2/2 sepsis 2/2 cellulitis. #Acute CHF Exacerbation #History HFpEF Most recent echo from 04/24/2024 shows EF 55-60%. At home patient takes bumetanide 1 mg p.o. twice daily and spironolactone 50 mg p.o. twice daily. BNP elevated Chest x-ray shows mild to moderate CHF Hypervolemic with exam findings showing +4 pitting edema Plan: Continue Bumex gtt per nephrology recs Will consider doing HD if patient does not respond adequately to Bumex gtt Strict I&Os Low sodium diet Keep potassium >4, mag >2 Daily CBC, CMP #AHRF 2/2 CHF exacerbation vs. sepsis, improving Ddx: He has history of CAROLYN/OHS, with noncompliance of any CPAP machine at home. 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 Presented to ED saturating at 84% on room air. Subsequently started on oxy mask high flow and progressed to BiPAP. Now saturating 97-98% on 10 L. Chest x-ray negative for any acute changes. Revealing moderate CHF. ABG 05/13 shows: pH 7.36, pCO2 40, pO2 75, Hco3 23 Plan: Treating underlying CHF exacerbation and sepsis, GNR bacteremia Continue BiPAP at bedtime DuoNeb treatment as needed Continuous pulse ox monitoring #Abscess left groin s/p I&D Day 3 #Sepsis 2/2 GNR bacteremia #Leukocytosis Most likely abscess --local pain in left groin, tenderness, warmth, swelling, oozing. SIRS 4/4. Received 1 L bolus normal saline in ED. Pro-Angelo elevated 12, normal lactic acid 0.9 Blood cultures positive for GNR Wound culture positive for GPC Pruett-sensitive ecoli grown from cultures Repeat blood cultures no growth 24 hours Plan: Continue IV vancomycin Continue IV Zosyn Acetaminophen as needed for fever On morphine 4 mg every 8 hours and added home Manson 10 as needed every 6 hours. Did not receive sepsis protocol fluids. Concern for worsening hypertension and pulmonary edema Dr. Haney consulted??s/p I&S. Noticeable thick purulent material drained, subcutaneous tissue necrosis. Area thoroughly irrigated and packed. Wound care consulted for daily dressing and management of wound VAC #Hypertensive emergency, resolved Initial blood pressures at the time of presentation to the ED is 180/102 mmHg. Patient was given a dose of hydralazine 10 Mg and nitroglycerin topical patch. Despite those, blood pressures are still elevated so patient was started on nicardipine drip 5 Mg per hour Plan: Hydralazine 10mg IV q6hr PRN On home medication metoprolol succinate 100 p.o. daily Continue Amlodipine 5 mg p.o. daily Continue monitoring blood pressure #Troponinemia 2/2 demand ischemia, resolved Most likely NSTEMI II related to underlying sepsis vs NSTEMI 1 as patient does have history of CAD. Troponins are downtrending from 0.103 to 0.095. EKG shows no acute ischemic changes. Plan: Continue monitoring for any changes in symptoms #ZENY, stable Ddx: Prerenal ZENY due to hypoperfusion in setting of sepsis vs cardiorenal syndrome vs nephrotoxic agents Creatinine downtrending Plan: Nephrology consulted; appreciate recommendations Avoid nephrotoxic agents Daily CMP #History of CAROLYN/OHS Unsure at this time patient is compliant with any CPAP machine at home. not compliant with use apparently Plan: Continue BiPAP at night #Poorly controlled Insulin-dependent type 2 diabetes On admission initial glucose 461. Last A1c 11.7 in October 2023. Patient takes Ozempic, 50 units insulin glargine, aspart sliding scale for diabetes at home. A1c >14 Plan: Held home medications Bedside blood glucose checks ACHS Increased to 72 units glargine Lispro 8u pre-meals Continue insulin sliding scale Carb consistent low diet Diabetes education #Adrenal nodule 25 mm right adrenal nodule Incidental adrenal nodule noted on CT Plan: Follow-up outpatient with reimaging #History hypertension Continue metoprolol succinate 100 p.o. daily #History cirrhosis Follow-up outpatient #History PE Continue apixaban 5 mg p.o. twice daily #History of CAD Continue atorvastatin 40 mg p.o. at bedtime Health Maintenance: Lines: PIV Diet: Carb consistent Bowel: Senna GI prophylaxis: Not needed DVT prophylaxis: Eliquis Dispo: s/p I&D left groin, gram negative bacteremia (E. coli) and volume overloaded requiring bumex gtt Code: Full Patient seen and examined with attending Dr. Whitfield and senior resident Dr. Andrews Suresh, PGY-1 Attending Provider Attestation/Addendum I have examined the patient, reviewed labs and imaging findings, discussed the case with the resident(s), and reviewed entered orders. I agree with the plan of care as outlined in this note, with these additional summaries/recommendations: #Sepsis #Cellulitis #Left Groin Abscess #E. Coli bacteremia CT ABD/PLV on admission: Extensive air densities in the soft tissue left groin extending into the anterior and lateral upper thigh 05/10 Blood cx: E. coli from aerobic and anaerobic bottles 05/11 Abscess cx: E. coli 05/12 Repeat blood cx: No growth at 24 hours General Surgery consulted and following Wound care following 05/11: Status post I&D of left thigh/groin abscess with debridement of necrotic tissue Wound VAC in place Continue pain management and broad-spectrum IV antibiotics vancomycin and Zosyn for now given severity of infection on admission and persistent leukocytosis. We will de-escalate when appropriate. Patient will need 2 weeks of antibiotics for bacteremia although will complete course with oral regimen once more improved. Patient continues to report intractable severe pain and will repeat imaging # Acute kidney injury # Fluid overload Likely multifactorial secondary to diabetic nephropathy plus possible cardiorenal syndrome Nephrology consulted, recommendations appreciated Renally dose medications and avoid nephrotoxic agents Fluid restriction Start Bumex gtt. and monitor urinary output. Will discuss with nephrology about starting EL/ARB once renal function more improved. If no response patient may require temporary dialysis. Repeat renal panel in AM. # Hypertensive emergency-resolved # Primary hypertension Systolic blood pressure was noted to be trending up into the 200s on admission Plan: Blood pressure now significantly improved. Continue Norvasc 5 mg p.o. daily and metoprolol succinate XL 100 mg p.o. daily. As needed hydralazine. # HFpEF Exacerbation 04/24/2024 shows EF 55-60%. Plan: Patient has significant fluid overload at this time. Continue aggressive diuresis. #CAROLYN/OHS Patient previously endorsed using home CPAP although is now denying using 1. Patient appears tired and somnolent in the morning without overnight CPAP/BiPAP. Encouraged and counseled patient at bedside to use although he appeared uninterested # Uncontrolled diabetes mellitus type 2 Multiple A1c's on file greater than 14%. Diabetic education and dietary consult Continue basal and bolus insulin We will attempt tight glycemic control in the setting of severe infection # History of pulmonary embolism Continue home apixaban 5 mg p.o. twice daily # Morbid obesity Plan: Outpatient follow-up for weight loss management Dr. Whitfield
[2024-05-14] MEDS: HYDROcodone/APAP 10/325 TAB PO ×2 (14:05→20:25)
--- NOTE | 2024-05-14 16:40 | PC.NURSE ---
Patient accidentally dislodged iv in R Hand. PIV in left thumb does not work. Unable to obtain iv access after several attempts. ICU charge called to see if they can place an iv with the ultrasound.
[2024-05-14] MEDS: INSULIN LISPRO (AdmeLOG) 1 UNIT/0.01 ML UNIT 8 UNIT SC (17:22)
[2024-05-14] MEDS: MORPHINE SULF INJ 10 MG/ML VIAL 3 MG IVP (17:22)
[2024-05-14] MEDS: ATORVASTATIN CALCIUM 20 MG TABLET 40 MG PO (21:24)
[2024-05-14] MEDS: INSULIN GLARGINE (Lantus) 5 UNIT/0.05 ML (PER 5 UNITS) 72 UNIT SC (21:41)
[2024-05-15] VITALS (11 sets, daily range): BP systolic 127–159; BP diastolic 57–76; PULSE 75–84; RESP 16–98; TEMP 36.1–36.9; O2SAT 92–98; BMI 50.8
[2024-05-15] MEDS: MORPHINE SULF INJ 10 MG/ML VIAL 3 MG IVP ×2 (03:35→23:09)
[2024-05-15 05:36] LABS: Basophils # (Auto) 0.1 Thou/mm3 (0.0-0.2); Basophils % (Auto) 0 % (0-2.5); Eosinophils # (Auto) 0.2 Thou/mm3 (0.0-0.5); Eosinophils % (Auto) 1 % (0-10); Hematocrit 24.3 % (41.0-53.0); Immature Granulocytes % (Auto) 6 % (0-0); Immature Granulocytes Auto 1.37 Thou/mm3 (0.00-0.00); Lymphocytes # (Auto) 0.8 Thou/mm3 (1.0-4.8); Lymphocytes % (Auto) 4 % (10-50); Mean Corpuscular HGB Conc 30.9 g/dl (31.0-37.0); Mean Corpuscular Hemoglobin 25.5 pg (25.0-35.0); Mean Corpuscular Volume 83 fL (80-100); Monocytes # (Auto) 1.3 Thou/mm3 (0.0-0.8); Monocytes % (Auto) 6 % (0-12); Neutrophils % (Auto) 83 % (37-80); Nucleated Red Blood Cell % 0 /100 WBC (0); Platelet Count 211 Thou/mm3 (140-440); RDW Standard Deviation 48.6 fL (35.1-43.9); Red Blood Count 2.94 Miln/mm3 (4.50-5.90); White Blood Count 21.7 Thou/mm3 (3.8-10.6)
[2024-05-15] MEDS: PIPER/TAZO 3.375 GM 50 ML IV ×3 (05:45→21:57)
[2024-05-15] MEDS: PREGABALIN 75 MG CAPSULE 150 MG PO ×3 (05:45→22:27)
[2024-05-15 05:47] LABS: Hemoglobin 7.5 g/dL (13.5-16.0)
[2024-05-15] MEDS: HYDROcodone/APAP 10/325 TAB PO ×2 (06:01→18:00)
[2024-05-15 06:09] LABS: Albumin, Serum 2.7 gm/dL (3.5-5.0); Anion Gap 8 (7-16); BUN/Creatinine Ratio 26 Ratio (12-20); Blood Urea Nitrogen 57 mg/dL (9-23); Calcium 8.1 mg/dL (8.3-10.6); Calcium (Corrected) 9.1 mg/dL (8.5-10.1); Carbon Dioxide 24.1 mMol/L (20.0-31.0); Chloride 102 mMol/L (98-107); Creatinine (Component) 2.2 mg/dL (0.6-1.3); Estimated Creatinine Clearance 54.9 mL/min (>60); Glucose 261 mg/dL (74-106); Magnesium 1.8 mg/dL (1.6-2.6); Osmolality,Calculated 293 (275-295); Phosphorous 5.2 mg/dL (2.4-5.1); Potassium 3.6 mMol/L (3.4-5.1); Sodium 134 mMol/L (136-145); eGFR 34 See Note
[2024-05-15] MEDS: INSULIN LISPRO (AdmeLOG) 1 UNIT/0.01 ML UNIT SC ×2 (08:14→11:52)
[2024-05-15] MEDS: INSULIN LISPRO (AdmeLOG) 1 UNIT/0.01 ML UNIT 8 UNIT SC (08:15)
[2024-05-15] MEDS: MORPHINE SULF INJ 10 MG/ML VIAL 5 MG IV (09:11)
[2024-05-15] MEDS: BUMETANIDE INJ 20 MG in CONTAINER,EMPTY 50 ML 1 BAG 8 MG IV ×2 (09:11→17:26)
[2024-05-15] MEDS: METOPROLOL SUCCINATE XL 25 MG TABCR 100 MG PO (09:13)
[2024-05-15] MEDS: amLODIPine BESYLATE 5 MG TABLET PO (09:14)
[2024-05-15] MEDS: SENNA TABLET 1 TAB PO (09:14)
--- NOTE | 2024-05-15 09:44 | ESPR_ITS ---
Documentation for date of: 05/15/24 Subjective Subjective Interval history: Mekhi Smith is 54 y/o M with PMHx significant for CAD, HFpEF, CVA with B/L endarterectomy, PE on Eliquis, hypertension, OHS/CAROLYN, cirrhosis, insulin- dependent type 2 diabetes who presented to ED due to weakness. Family stated that they found him on the floor at home. N patient initially unable to provide history, most history was obtained from chart review. He was recently discharged from hospital on 04/28/2024 due to CHF exacerbation and lower extremity edema. He was also diagnosed to have left groin abscess and recommended percutaneous drainage in the outpatient setting. However, patient did not follow-up with treatment. Patient was started on BiPAP while in the ED. Is able to respond to yes or no questions with head nodding. In the ED, patient was found to have hypertensive emergency 180/102 mmHg, tachycardic 100, tachypneic 28/min, low-grade fever 100.8 ?F, SpO2 100% on 10 L OxyMask. Labs significant for leukocytosis 21.8, anemia hemoglobin 9, platelet 203, elevated ESR 103, D-dimer 1350, ABG unremarkable, sodium 132, potassium 3.7, creatinine 1.4 elevated from baseline, glucose 369, lactic acid normal 0.9, alk phos 156, CK 284, elevated troponin 0.103, CRP 26, BNP 07/23/2000, Pro-Angelo 12, UA 3+ protein, 4+ glucose, 1+ ketones, negative nitrite/negative leukocyte Estrace, hematuria, urine tox positive for THC and opiates. Diagnostic imaging: No acute ischemic changes on EKG, chest x-ray consistent with moderate CHF, CT head negative for acute hemorrhage, gallbladder ultrasound revealing significant hepatomegaly suspicious for primary hepatocellular disease. No evidence of acute cholecystitis. Patient received furosemide 80 IV x 1, labetalol 20 x 1, hydralazine 10 x 1, [id number] mg, magnesium sulfate 2 g x 1, DuoNeb treatment x 1, methylprednisone 125 mg x 1, Rocephin x 1, and [address] Haney was consulted and he was admitted for AHRF 2/2 sepsis and left groin abscess. Patient received I&D of left groin area, with thick purulent and necrotic material. Wound was packed with wound VAC placement. During this time patient kidney function continued to get progressively worse. Patient received additional 1 L bolus normal saline due to sepsis protocol. Nephrology was consulted due to worsening ZENY, concern for prerenal ZENY versus cardiorenal syndrome with fluid overload. Patient seen and examined in telemetry. Patient resting in bed, expresses mild discomfort. Patient complains of shortness of breath, states he is extremely swollen, he believes due to excess fluids. Patient has anasarca, severe pain continue to bilateral lower extremities, swollen bilateral upper extremities. Lung sounds difficult to auscultate due to poor body habitus, signs of congestion in bilateral upper lobes. Strong suspect ZENY due to fluid overload in setting of CHF. BUN 53, creatinine 2.4, eGFR 31. Will begin diuresis, evaluate for nephrotic syndrome. 05/13: Patient seen and examined in telemetry. Patient lying in bed, increased somnolence, responsive to tactile stimulation. ABG ordered to evaluate for hypercapnia: pCO2 40, pO2 75. Patient showed some improvement in mental status in the afternoon, remains lethargic. 1.8 L urinary output despite Bumex. Sodium 134, potassium 4.2, bicarb 21.8, BUN 60, creatinine 2.2, eGFR 34. Patient maintains significant volume overload. Will place patient on Bumex drip 2 mg/h x 10 hours and reevaluate. 05/14: Patient seen and examined in telemetry. Patient laying in bed, alert and oriented, complaining of pain in his lower back. 1.8 L urinary output despite Bumex drip, patient placed on another Bumex drip. Sodium 134, potassium 3.8, bicarb 20.7, BUN 57, creatinine 2.2, eGFR 34. Patient reviewed slightly less volume overload, still significant fluid retention. 05/15: Patient seen and examined in telemetry. Patient laying in bed, somnolent, minimally responsive. 2.7 L urinary output. Patient remains significantly fluid overloaded, improved. Will continue with Bumex drip today. Sodium 134, potassium 3.6, bicarb 24.1, BUN 57, creatinine 2.2, eGFR 34. Exam Vital Signs Temp Pulse Resp BP Pulse Ox O2 Del Method O2 Flow Rate 97.0 F 78 18 127/61 92 L Room Air 2 05/15/24 08:00 05/15/24 09:14 05/15/24 08:00 05/15/24 09:14 05/15/24 08:00 05/15/24 08:00 05/14/24 12:00 FiO2 35 05/14/24 12:00 Narrative Exam PE: Gen: Well-developed and well-nourished. Mildly distressed. Obese. Somnolent. HEENT: NCAT, PERRLA, EOMI, anicteric conjunctivae. Dry mucous membranes. CVS: normal S1 and S2. RRR. No M/R/G. Resp: Poor lung sounds due to body habitus. Congestion in bilateral upper lobes. Abd: Abdomen diffusely distended, anasarca. MSK: Good ROM in BUE & BLE. All extremities edematous, worse in bilateral lower extremities. Blanching erythema, tenderness, swelling in pelvic area, concentrated to the left inguinal fold. Wound VAC placement in left inguinal fold. Neuro: Somnolent, minimally responsive. Objective Labs 05/15/24 05:02 05/15/24 05:02 Labs: Laboratory Results - last 24 hr 05/15/24 05:02 WBC 21.7 H RBC 2.94 L Hgb 7.5 L Hct 24.3 L MCV 83 MCH 25.5 MCHC 30.9 L RDW Std Deviation 48.6 H Plt Count 211 Neut % (Auto) 83 H Lymph % (Auto) 4 L Garfield % (Auto) 6 Eos % (Auto) 1 Baso % (Auto) 0 Neut # (Auto) 18.0 H Lymph # (Auto) 0.8 L Garfield # (Auto) 1.3 H Eos # (Auto) 0.2 Baso # (Auto) 0.1 Immature Gran # (Auto) 1.37 H Absolute Nucleated RBC 0.00 Immature Gran % 6 H Nucleated RBC % 0 Sodium 134 L Potassium 3.6 Chloride 102 Carbon Dioxide 24.1 Anion Gap 8 BUN 57 H Creatinine 2.2 H Estim Creat Clear Calc 54.9 L eGFR 34 L BUN/Creatinine Ratio 26 H Glucose 261 H D Calculated Osmolality 293 Calcium 8.1 L Corrected Calcium 9.1 Phosphorus 5.2 H Magnesium 1.8 Albumin 2.7 L Random Vancomycin 20.0 ABG Interpretation ABG results: 05/10/24 05/13/24 12:26 11:23 ABG pH 7.34 L 7.36 ABG pCO2 43 40 ABG pO2 127 H 75 L D ABG HCO3 23 23 ABG O2 Saturation 100 H 94 ABG Base Excess -2 -3 Quality Measures Quality Measures sepsis Current suspected stage: sepsis Possible source: unknown Blood cultures ordered: completed in ED Antibiotic ordered: Yes Assessment & Plan Assessment Current Active Medications: Generic Name Dose Route Start Last Admin Trade Name Freq PRN Reason Stop Dose Admin Acetaminophen 650 mg 05/11/24 11:28 05/14/24 11:53 Acetaminophen 325 Mg Tablet PO 06/09/24 17:37 650 mg Q6H PRN Administration Fever >100.3 or pain(1-3) Hydrocodone Bitart/Acetaminophen 1 tab 05/14/24 12:02 05/15/24 06:01 Hydrocodone/Apap 10/325 Tab PO 05/19/24 12:00 1 tab Q6HR PRN Administration Pain (Scale Score 4-6) Amlodipine Besylate 5 mg 05/12/24 09:00 05/15/24 09:14 Amlodipine Besylate 5 Mg Tablet PO 06/11/24 08:59 5 mg QDAY RINA Administration Apixaban 5 mg 05/11/24 14:00 05/14/24 21:24 Apixaban 2.5 Mg Tablet PO 06/01/24 13:59 5 mg BID RINA Administration Atorvastatin Calcium 40 mg 05/12/24 21:00 05/14/24 21:24 Atorvastatin Calcium 20 Mg Tablet PO 06/11/24 20:59 40 mg HS RINA Administration Bumetanide 2 mg 05/12/24 15:00 05/14/24 09:46 Bumetanide Inj 0.25 Mg/Ml Vial 4 Ml IVP 06/11/24 14:59 2 mg BID RINA Administration Dextrose 25 ml 05/10/24 19:30 Dextrose 50%-Water Inj 50 Ml Syringe IV 06/09/24 19:29 Q15MIN PRN BG 50-70 responsive npo pt Dextrose 50 ml 05/10/24 19:30 Dextrose 50%-Water Inj 50 Ml Syringe IV 06/09/24 19:29 Q15MIN PRN BG <50 OR BG <70 & pt unresponsive Glucagon 1 mg 05/10/24 19:30 Glucagon Inj 1 Mg Vial IM Q15MIN PRN BG <70, and no IV access Hydralazine HCl 10 mg 05/10/24 19:11 05/12/24 11:54 Hydralazine Inj 20 Mg/Ml Vial IV 06/09/24 19:10 10 mg Q6H PRN Administration High blood pressure Piperacillin/Tazobactam/Dextrose 50 mls @ 12.5 mls/hr 05/14/24 14:00 05/15/24 05:45 Zosyn IV 05/21/24 13:59 12.5 mls/hr Q8HR RINA Administration Protocol Bumetanide 20 mg/ IV 80 mls @ 8 mls/hr 05/14/24 10:00 05/15/24 09:11 Miscellaneous Supplies IV 06/13/24 09:59 2 mg/hr .Q10H RINA 8 mls/hr Administration 2 MG/HR Insulin Glargine 80 unit 05/15/24 21:00 Insulin Glargine (Lantus) 5 Unit/0.05 Ml (Per 5 Units) SC 06/14/24 20:59 [facility] Insulin Human Lispro 0 unit 05/13/24 09:00 05/15/24 08:14 Insulin Lispro (Admelog) 1 Unit/0.01 Ml Unit SC 06/12/24 08:59 10 unit AC [facility] Administration Protocol Insulin Human Lispro 12 unit 05/15/24 11:30 Insulin Lispro (Admelog) 1 Unit/0.01 Ml Unit SC 06/14/24 11:29 [facility] Metoprolol Succinate 100 mg 05/10/24 19:00 05/15/24 09:13 Metoprolol Succinate Xl 25 Mg Tabcr PO 06/09/24 18:59 100 mg QDAY RINA Administration Morphine Sulfate 3 mg 05/14/24 12:03 05/15/24 03:35 Morphine Sulf Inj 10 Mg/Ml Vial IVP 05/16/24 12:22 3 mg Q8HR PRN Administration Pain 7-10 Ondansetron HCl 4 mg 05/10/24 17:38 Ondansetron Inj 2 Mg/Ml Inj 2 Ml IV 06/09/24 17:37 Q6H PRN NAUSEA OR VOMITING Protocol Pharmacy Consult 1 each 05/12/24 11:20 Vancomycin Pharmacy To Dose 1 Each Each IV 06/11/24 11:19 QDAY PRN PROTOCOL Pregabalin 150 mg 05/12/24 22:00 05/15/24 05:45 Pregabalin 75 Mg Capsule PO 06/11/24 21:59 150 mg TID RINA Administration Sennosides 1 tab 05/13/24 14:45 05/15/24 09:14 Senna Tablet PO 06/12/24 14:44 1 tab QDAY RINA Administration Protocol Plan 54 y/o M with PMHx significant for CAD, HFpEF, CVA with B/L endarterectomy, PE on Eliquis, hypertension, OHS/CAROLYN, cirrhosis, insulin-dependent type 2 diabetes who presented to ED due to weakness, admitted for acute hypoxic respiratory failure. #ZENY #Suspected nephrotic syndrome due to progressive diabetic nephropathy Patient has been diabetic for more than 15 years. Patient has baseline kidney function within normal limits. Patient kidney function is worsened over course of hospitalization. Patient has received IV fluids due to concern for sepsis during stay. On exam patient appears fluid overloaded, anasarca. Dry mucous membranes. Urinalysis showed 3+ protein. Urine random creatinine 70, urine random total protein 656. Urine protein/creatinine 9.3 g. A1c 13.6% as of 05/11/2024. BUN 53, creatinine 2.4, eGFR 31. Patient had 1.8 L output on Bumex 2 mg IV twice daily, changed to Bumex drip. Kidney function improved. Remains severely volume overloaded. Plan: -Holding IV fluids -Bumex drip 2 mg/h x 10 hours -avoid nephrotoxic agents -Monitor daily labs -Strict I's and O's -fluid restrict. -No plans for dialysis at this time. #AHRF 2/2 sepsis-resolved #Sepsis 2/2 GNR bacteremia #Hypertensive emergency-resolving #Troponinemia 2/2 demand ischemia-resolved #History HFpEF #History of CAROLYN/OHS #Poorly controlled Insulin-dependent type 2 diabetes #Elevated CK-resolved #History hypertension #History cirrhosis #History PE #History of CAD Management as per primary team. DVT prophylaxis: Eliquis GI prophylaxis: None Diet: Carb consistent level, fluid restriction 1500 cc Lines: Wound VAC, Wright cath, peripheral IV Code status: Full code Thank you for allow me to anticipate the care of this patient. Plan of care discussed with attending Dr. Burger. Enrique Justice MD PGY-1 Attending Provider Attestation/Addendum Patient seen and examined with resident physician Dr. Justice. Note reviewed, agree with findings and recommendations. Patient currently seen in telemetry. Still significantly overloaded. Continue with Bumex drip. Creatinine stable. No need for emergency dialysis. However if patient remains to be significantly fluid overloaded and becomes diuretic dependent/resistant-will need sequential ultrafiltration. I will be away on vacation starting 05/16/2024 thru 05/20/2024. Dr South will be covering for me.
[2024-05-15] MEDS: APIXABAN 2.5 MG TABLET 5 MG PO ×2 (09:59→21:56)
[2024-05-15] MEDS: POTASSIUM CHLORIDE 20 mEq TABCR 40 MEQ PO (09:59)
--- NOTE | 2024-05-15 10:06 | PD.SURPROG ---
Documentation for date of: 05/15/24 Subjective Subjective Brief History: Patient is a morbidly obese white male who said that he has had pain in the groin for the past couple of days. He could not give any history because of the oxygen mask. He was admitted with a history of altered mental status and sepsis. He also has a acute respiratory failure with hypoxia. He has a history of generalized anasarca and chronic low back pain and diabetes mellitus which is poorly controlled. He also has a history of hypertension heart disease he has a history of COPD. It is very difficult to get information from the patient because he is not able to give definite history. Patient has a history of perianal cellulitis in the past Narrative: Patient is still complaining of pain as usual Exam Vital Signs Temp Pulse Resp BP Pulse Ox O2 Del Method O2 Flow Rate 97.0 F 78 18 127/61 92 L Room Air 2 05/15/24 08:00 05/15/24 09:14 05/15/24 08:00 05/15/24 09:14 05/15/24 08:00 05/15/24 08:00 05/14/24 12:00 FiO2 35 05/14/24 12:00 Vital signs revealed no fever Routine Abdominal Exam Comments: Left groin wound was inspected while wound care nurse was changing the dressing. There is some more drainage upon compressing the mons pubis but it was not future requiring surgical drainage. Results Results: Laboratory Laboratory Narrative: Patient's WBC is unchanged Assessment & Plan Assessment Additional comments: Impression: Abscess over the left groin resolving slowly Plan Plan: We shall continue present care Procedures Procedures Incision and drainage of the abscess left thigh and groin and debridement of necrotic tissue.
--- NOTE | 2024-05-15 11:51 | ESPR_ITS ---
<Statement entered by Jaquelin Sparrow MD - 05/15/24 22:49> I discussed with and supervised the logistics intern physician who took care of this patient. I personally saw and examined the patient and discussed the assessment and plan with the entire medicine team, including my attending , I agree with most of the assessment and plan as documented below Jaquelin Sparrow M.D. PGY-2 Documentation for date of: 05/15/24 Subjective Subjective Interval history: 05/15/2024: No acute overnight events reported. Patient seen and examined in hospital bed reporting persistent left inguinal site pain. Dr. Haney, general surgery, inspected the site and states in their note that there is some purulent discharge but that no future surgical intervention is required at this time. We will continue to treat the patient with IV Vanco and Zosyn as his white counts are downtrending but remain elevated. Patient has adequately responded to diuresis, Bumex drip, with nearly 2.7 L of urine output and net -1.7 L since admission. Will continue to assess the patient for any acute changes. Exam Vital Signs Temp Pulse Resp BP Pulse Ox O2 Del Method O2 Flow Rate 97.0 F 78 18 127/61 92 L Room Air 2 05/15/24 08:00 05/15/24 09:14 05/15/24 08:00 05/15/24 09:14 05/15/24 08:00 05/15/24 08:00 05/14/24 12:00 FiO2 35 05/14/24 12:00 Narrative Exam General: awake, morbid obese, slurred speech but answers questions appropriately, appears stated age HEENT: Normocephalic, atraumatic, PERRLA, EOMI Heart: Regular rate and rhythm, no murmurs. Lungs: decreased breath sounds noted bilaterally in view of body habitus Abdomen: Soft, obese and nontender on all four quadrants. Severe tenderness noted in the left groin and thigh area, s/p I&D with wound vac Extremities: Bilateral pitting 2+ pedal edema is noted; improvement noted. Skin: No rash. Ecchymotic patch is noted on the abdomen right to the umbilicus. 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/5 Objective Labs 05/15/24 05:02 05/15/24 05:02 Labs: Laboratory Results - last 24 hr 05/15/24 05:02 WBC 21.7 H RBC 2.94 L Hgb 7.5 L Hct 24.3 L MCV 83 MCH 25.5 MCHC 30.9 L RDW Std Deviation 48.6 H Plt Count 211 Neut % (Auto) 83 H Lymph % (Auto) 4 L Ada % (Auto) 6 Eos % (Auto) 1 Baso % (Auto) 0 Neut # (Auto) 18.0 H Lymph # (Auto) 0.8 L Ada # (Auto) 1.3 H Eos # (Auto) 0.2 Baso # (Auto) 0.1 Immature Gran # (Auto) 1.37 H Absolute Nucleated RBC 0.00 Immature Gran % 6 H Nucleated RBC % 0 Sodium 134 L Potassium 3.6 Chloride 102 Carbon Dioxide 24.1 Anion Gap 8 BUN 57 H Creatinine 2.2 H Estim Creat Clear Calc 54.9 L eGFR 34 L BUN/Creatinine Ratio 26 H Glucose 261 H D Calculated Osmolality 293 Calcium 8.1 L Corrected Calcium 9.1 Phosphorus 5.2 H Magnesium 1.8 Albumin 2.7 L Random Vancomycin 20.0 ABG Interpretation ABG results: 05/10/24 05/13/24 12:26 11:23 ABG pH 7.34 L 7.36 ABG pCO2 43 40 ABG pO2 127 H 75 L D ABG HCO3 23 23 ABG O2 Saturation 100 H 94 ABG Base Excess -2 -3 Quality Measures Quality Measures sepsis Current suspected stage: ruled out Possible source: unknown Blood cultures ordered: completed in ED Antibiotic ordered: Yes Assessment & Plan Assessment Current Active Medications: Generic Name Dose Route Start Last Admin Trade Name Lokiq PRN Reason Stop Dose Admin Acetaminophen 650 mg 05/11/24 11:28 05/14/24 11:53 Acetaminophen 325 Mg Tablet PO 06/09/24 17:37 650 mg Q6H PRN Administration Fever >100.3 or pain(1-3) Hydrocodone Bitart/Acetaminophen 1 tab 05/14/24 12:02 05/15/24 06:01 Hydrocodone/Apap 10/325 Tab PO 05/19/24 12:00 1 tab Q6HR PRN Administration Pain (Scale Score 4-6) Amlodipine Besylate 5 mg 05/12/24 09:00 05/15/24 09:14 Amlodipine Besylate 5 Mg Tablet PO 06/11/24 08:59 5 mg QDAY RINA Administration Apixaban 5 mg 05/11/24 14:00 05/15/24 09:59 Apixaban 2.5 Mg Tablet PO 06/01/24 13:59 5 mg BID RINA Administration Atorvastatin Calcium 40 mg 05/12/24 21:00 05/14/24 21:24 Atorvastatin Calcium 20 Mg Tablet PO 06/11/24 20:59 40 mg HS RINA Administration Bumetanide 2 mg 05/12/24 15:00 05/14/24 09:46 Bumetanide Inj 0.25 Mg/Ml Vial 4 Ml IVP 06/11/24 14:59 2 mg BID RINA Administration Dextrose 25 ml 05/10/24 19:30 Dextrose 50%-Water Inj 50 Ml Syringe IV 06/09/24 19:29 Q15MIN PRN BG 50-70 responsive npo pt Dextrose 50 ml 05/10/24 19:30 Dextrose 50%-Water Inj 50 Ml Syringe IV 06/09/24 19:29 Q15MIN PRN BG <50 OR BG <70 & pt unresponsive Glucagon 1 mg 05/10/24 19:30 Glucagon Inj 1 Mg Vial IM Q15MIN PRN BG <70, and no IV access Hydralazine HCl 10 mg 05/10/24 19:11 05/12/24 11:54 Hydralazine Inj 20 Mg/Ml Vial IV 06/09/24 19:10 10 mg Q6H PRN Administration High blood pressure Piperacillin/Tazobactam/Dextrose 50 mls @ 12.5 mls/hr 05/14/24 14:00 05/15/24 05:45 Zosyn IV 05/21/24 13:59 12.5 mls/hr Q8HR RINA Administration Protocol Bumetanide 20 mg/ IV 80 mls @ 8 mls/hr 05/14/24 10:00 05/15/24 09:11 Miscellaneous Supplies IV 05/16/24 09:59 2 mg/hr .Q10H RINA 8 mls/hr Administration 2 MG/HR Insulin Glargine 80 unit 05/15/24 21:00 Insulin Glargine (Lantus) 5 Unit/0.05 Ml (Per 5 Units) SC 06/14/24 20:59 HS RINA Insulin Human Lispro 0 unit 05/13/24 09:00 05/15/24 08:14 Insulin Lispro (Admelog) 1 Unit/0.01 Ml Unit SC 06/12/24 08:59 10 unit AC [facility] Administration Protocol Insulin Human Lispro 12 unit 05/15/24 11:30 Insulin Lispro (Admelog) 1 Unit/0.01 Ml Unit SC 06/14/24 11:29 AC [facility] Metoprolol Succinate 100 mg 05/10/24 19:00 05/15/24 09:13 Metoprolol Succinate Xl 25 Mg Tabcr PO 06/09/24 18:59 100 mg QDAY RINA Administration Morphine Sulfate 3 mg 05/14/24 12:03 05/15/24 03:35 Morphine Sulf Inj 10 Mg/Ml Vial IVP 05/16/24 12:22 3 mg Q8HR PRN Administration Pain 7-10 Ondansetron HCl 4 mg 05/10/24 17:38 Ondansetron Inj 2 Mg/Ml Inj 2 Ml IV 06/09/24 17:37 Q6H PRN NAUSEA OR VOMITING Protocol Pharmacy Consult 1 each 05/12/24 11:20 Vancomycin Pharmacy To Dose 1 Each Each IV 06/11/24 11:19 QDAY PRN PROTOCOL Pregabalin 150 mg 05/12/24 22:00 05/15/24 05:45 Pregabalin 75 Mg Capsule PO 06/11/24 21:59 150 mg TID RINA Administration Sennosides 1 tab 05/13/24 14:45 05/15/24 09:14 Senna Tablet PO 06/12/24 14:44 1 tab QDAY RINA Administration Protocol Plan 54-year-old male with past medical history of insulin-dependent diabetes mellitus, CAD, HFpEF, CVA with b/l endarterectomy, pulmonary embolism on Eliquis, hypertension, obstructive sleep apnea, hypertension, OHS/CAROLYN, cirrhosis, recent hospital admission 2 weeks ago for CHF exacerbation and left groin abscess presented to the ED after family found patient on the floor. Initially per ED he presented with altered mental status. However was able to regain consciousness after some time while on BiPAP. Patient being admitted for AHRF 2/2 sepsis 2/2 cellulitis. #Acute CHF Exacerbation #History HFpEF Most recent echo from 04/24/2024 shows EF 55-60%. At home patient takes bumetanide 1 mg p.o. twice daily and spironolactone 50 mg p.o. twice daily. BNP elevated Chest x-ray shows mild to moderate CHF Hypervolemic with exam findings showing +2pitting edema; improving Adequate response to diuresis; -2.7L over 24 hours; net negative -1.6L Plan: Continue Bumex gtt per nephrology recs Will consider doing HD if patient does not respond adequately to Bumex gtt Strict I&Os Low sodium diet Keep potassium >4, mag >2 Daily CBC, CMP #AHRF 2/2 CHF exacerbation vs. sepsis, improving Ddx: He has history of CAROLYN/OHS, with noncompliance of any CPAP machine at home. 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 Presented to ED saturating at 84% on room air. Subsequently started on oxy mask high flow and progressed to BiPAP. Now saturating 97-98% on 10 L. Chest x-ray negative for any acute changes. Revealing moderate CHF. ABG 05/13 shows: pH 7.36, pCO2 40, pO2 75, Hco3 23 Plan: Treating underlying CHF exacerbation and sepsis, GNR bacteremia Continue BiPAP at bedtime DuoNeb treatment as needed Continuous pulse ox monitoring #Abscess left groin s/p I&D Day 4 #Sepsis 2/2 GNR bacteremia #Leukocytosis Most likely abscess --local pain in left groin, tenderness, warmth, swelling, oozing. SIRS 4/4. Received 1 L bolus normal saline in ED. Pro-Angelo elevated 12, normal lactic acid 0.9 Blood cultures positive for GNR Wound culture positive for GPC [place]-sensitive ecoli grown from cultures Repeat blood cultures no growth 24 hours Plan: Surgery reviewed I&D site 05/15 and state more drainage upon compressing the mons pubis but no future surgical drainage required Continue IV vancomycin and IV Zosyn as white count remains elevated Acetaminophen as needed for fever On morphine 4 mg every 8 hours and added home [place] 10 as needed every 6 hours. Wound care consulted for daily dressing and management of wound VAC #Hypertensive emergency, resolved Initial blood pressures at the time of presentation to the ED is 180/102 mmHg. Patient was given a dose of hydralazine 10 Mg and nitroglycerin topical patch. Despite those, blood pressures are still elevated so patient was started on nicardipine drip 5 Mg per hour Plan: Hydralazine 10mg IV q6hr PRN On home medication metoprolol succinate 100 p.o. daily Continue Amlodipine 5 mg p.o. daily Continue monitoring blood pressure #Troponinemia 2/2 demand ischemia, resolved Most likely NSTEMI II related to underlying sepsis vs NSTEMI 1 as patient does have history of CAD. Troponins are downtrending from 0.103 to 0.095. EKG shows no acute ischemic changes. Plan: Continue monitoring for any changes in symptoms #ZENY, stable Ddx: Prerenal ZENY due to hypoperfusion in setting of sepsis vs cardiorenal syndrome vs nephrotoxic agents Creatinine downtrending Plan: Nephrology consulted; appreciate recommendations Avoid nephrotoxic agents Daily CMP #History of CAROLYN/OHS Unsure at this time patient is compliant with any CPAP machine at home. not compliant with use apparently Plan: Continue BiPAP at night; patient apparently refusing #Poorly controlled Insulin-dependent type 2 diabetes On admission initial glucose 461. Last A1c 11.7 in October 2023. Patient takes Ozempic, 50 units insulin glargine, aspart sliding scale for diabetes at home. A1c >14 Plan: Held home medications Bedside blood glucose checks ACHS Increased to 80 units glargine Lispro increased to 12u pre-meals Continue insulin sliding scale Carb consistent low diet Diabetes education #Adrenal nodule 25 mm right adrenal nodule Incidental adrenal nodule noted on CT Plan: Follow-up outpatient with reimaging #History hypertension Continue metoprolol succinate 100 p.o. daily #History cirrhosis Follow-up outpatient #History PE Continue apixaban 5 mg p.o. twice daily #History of CAD Continue atorvastatin 40 mg p.o. at bedtime Health Maintenance: Lines: PIV Diet: Carb consistent Bowel: Senna GI prophylaxis: Not needed DVT prophylaxis: Eliquis Dispo: s/p I&D left groin, gram negative bacteremia (E. coli) and volume overloaded requiring bumex gtt Code: Full Patient seen and examined with attending Dr. Whitfield and senior resident Dr. Andrews Suresh, PGY-1 Attending Provider Attestation/Addendum I have examined the patient, reviewed labs and imaging findings, discussed the case with the resident(s), and reviewed entered orders. I agree with the plan of care as outlined in this note, with these additional summaries/recommendations: #Sepsis #Cellulitis #Left Groin Abscess #E. Coli bacteremia CT ABD/PLV on admission: Extensive air densities in the soft tissue left groin extending into the anterior and lateral upper thigh 05/10 Blood cx: E. coli from aerobic and anaerobic bottles 05/11 Abscess cx: E. coli 05/12 Repeat blood cx: No growth at 24 hours General Surgery consulted and following Wound care following 05/11: Status post I&D of left thigh/groin abscess with debridement of necrotic tissue Wound VAC in place Continue pain management and broad-spectrum IV antibiotics vancomycin and Zosyn for now given severity of infection on admission and persistent leukocytosis. We will de-escalate when appropriate. Patient will need 2 weeks of antibiotics for bacteremia although will complete course with oral regimen once more improved. Patient continues to report intractable severe pain and will repeat imaging # Acute kidney injury # Fluid overload Likely multifactorial secondary to diabetic nephropathy plus possible cardiorenal syndrome Nephrology consulted, recommendations appreciated Renally dose medications and avoid nephrotoxic agents Fluid restriction Start Bumex gtt. and monitor urinary output. Will discuss with nephrology about starting EL/ARB once renal function more improved. If no response patient may require temporary dialysis. Repeat renal panel in AM. # Hypertensive emergency-resolved # Primary hypertension Systolic blood pressure was noted to be trending up into the 200s on admission Plan: Blood pressure now significantly improved. Continue Norvasc 5 mg p.o. daily and metoprolol succinate XL 100 mg p.o. daily. As needed hydralazine. # HFpEF Exacerbation 04/24/2024 shows EF 55-60%. Plan: Patient has significant fluid overload at this time. Continue aggressive diuresis. #CAROLYN/OHS Patient previously endorsed using home CPAP although is now denying using 1. Patient appears tired and somnolent in the morning without overnight CPAP/BiPAP. Encouraged and counseled patient at bedside to use although he appeared uninterested # Uncontrolled diabetes mellitus type 2 Multiple A1c's on file greater than 14%. Diabetic education and dietary consult Continue basal and bolus insulin We will attempt tight glycemic control in the setting of severe infection # History of pulmonary embolism Continue home apixaban 5 mg p.o. twice daily # Morbid obesity Plan: Outpatient follow-up for weight loss management Dr. Whitfield
[2024-05-15] MEDS: INSULIN LISPRO (AdmeLOG) 1 UNIT/0.01 ML UNIT 12 UNIT SC (11:52)
--- NOTE | 2024-05-15 13:56 | PC.WOUND ---
[facility] ready care wound vac order process started via [employer]. Faxed all clinical documents and signed rx by Dr. Whitfield with return receipt. Discharge plan pending. Rental order number [id number]. [employer] contact [phone], fax
--- NOTE | 2024-05-15 16:12 | PC.SS ---
Follow up note: Pt now has a wound vac.
--- NOTE | 2024-05-15 18:25 | PC.NURSE ---
Notified that patients blood glucose was 68. Patient was alert and oriented and asymptomatic. Patient drank orange juice and ate a snack. Patient blood sugar was rechecked and it is 75. Per provider ok to hold 12 units scheduled lispro. Encouraged patient to eat dinner.
[2024-05-15] MEDS: ATORVASTATIN CALCIUM 20 MG TABLET 40 MG PO (21:56)
[2024-05-15] MEDS: DEXTROSE 50%-WATER INJ 50 ML SYRINGE 25 ML IV (22:15)
[2024-05-16] VITALS (12 sets, daily range): BP systolic 96–165; BP diastolic 6–81; PULSE 66–81; RESP 16–20; TEMP 35.9–36.7; O2SAT 92–98; BMI 50.1
[2024-05-16] MEDS: HYDROcodone/APAP 10/325 TAB PO ×3 (01:12→23:01)
[2024-05-16] MEDS: BUMETANIDE INJ 20 MG in CONTAINER,EMPTY 50 ML 1 BAG 8 MG IV ×2 (03:50→14:06)
[2024-05-16] MEDS: PIPER/TAZO 3.375 GM 50 ML IV ×2 (05:20→13:27)
[2024-05-16] MEDS: PREGABALIN 75 MG CAPSULE 150 MG PO ×3 (05:20→22:37)
[2024-05-16 05:48] LABS: Basophils # (Auto) 0.1 Thou/mm3 (0.0-0.2); Basophils % (Auto) 0 % (0-2.5); Eosinophils # (Auto) 0.2 Thou/mm3 (0.0-0.5); Eosinophils % (Auto) 1 % (0-10); Hematocrit 25.6 % (41.0-53.0); Immature Granulocytes % (Auto) 9 % (0-0); Immature Granulocytes Auto 1.88 Thou/mm3 (0.00-0.00); Lymphocytes % (Auto) 5 % (10-50); Mean Corpuscular HGB Conc 30.5 g/dl (31.0-37.0); Mean Corpuscular Hemoglobin 25.6 pg (25.0-35.0); Mean Corpuscular Volume 84 fL (80-100); Monocytes # (Auto) 1.5 Thou/mm3 (0.0-0.8); Monocytes % (Auto) 8 % (0-12); Neutrophils # (Auto) 15.9 Thou/mm3 (1.8-7.7); Neutrophils % (Auto) 78 % (37-80); Nucleated Red Blood Cell % 0 /100 WBC (0); Platelet Count 255 Thou/mm3 (140-440); RDW Standard Deviation 49.1 fL (35.1-43.9); Red Blood Count 3.05 Miln/mm3 (4.50-5.90)
[2024-05-16 05:53] LABS: Hemoglobin 7.8 g/dL (13.5-16.0); White Blood Count 20.5 Thou/mm3 (3.8-10.6)
[2024-05-16 06:15] LABS: Albumin, Serum 2.8 gm/dL (3.5-5.0); Anion Gap 8 (7-16); BUN/Creatinine Ratio 26 Ratio (12-20); Blood Urea Nitrogen 58 mg/dL (9-23); Calcium 8.3 mg/dL (8.3-10.6); Calcium (Corrected) 9.3 mg/dL (8.5-10.1); Carbon Dioxide 24.9 mMol/L (20.0-31.0); Chloride 101 mMol/L (98-107); Creatinine (Component) 2.2 mg/dL (0.6-1.3); Estimated Creatinine Clearance 55.7 mL/min (>60); Glucose 181 mg/dL (74-106); Magnesium 1.6 mg/dL (1.6-2.6); Osmolality,Calculated 289 (275-295); Phosphorous 5.3 mg/dL (2.4-5.1); Potassium 3.9 mMol/L (3.4-5.1); Sodium 134 mMol/L (136-145); Vancomycin,Random 15.8 mcg/mL; eGFR 34 See Note
[2024-05-16] MEDS: INSULIN LISPRO (AdmeLOG) 1 UNIT/0.01 ML UNIT 12 UNIT SC ×3 (07:30→16:32)
[2024-05-16] MEDS: INSULIN LISPRO (AdmeLOG) 1 UNIT/0.01 ML UNIT SC ×4 (07:30→22:58)
[2024-05-16] MEDS: METOPROLOL SUCCINATE XL 25 MG TABCR 100 MG PO (08:20)
[2024-05-16] MEDS: SENNA TABLET 1 TAB PO (08:21)
[2024-05-16] MEDS: amLODIPine BESYLATE 5 MG TABLET PO (08:21)
[2024-05-16] MEDS: APIXABAN 2.5 MG TABLET 5 MG PO ×2 (08:21→22:38)
[2024-05-16] MEDS: MORPHINE SULF INJ 10 MG/ML VIAL 3 MG IVP (08:28)
--- NOTE | 2024-05-16 09:00 | PC.WOUND ---
Addendum entered by Stella Castle RN 05/16/24 12:45: Order remains pending authorization review for release. Original Note: Call recieved from Leandro JOSHUA, requesting RX to be faxed to [phone]. Faxed with receipt. Will continue to follow.
[2024-05-16] MEDS: VANCOMYCIN/NS 1 GM IVPB 200 ML IV (09:41)
[2024-05-16 10:37] LABS: Path Review Blood Smear Sent to Pathologist
--- NOTE | 2024-05-16 13:01 | PC.SS ---
Follow up note: SS followed up with patient regarding his discharge plan. Patient now has wound vac. He states he has not been out of bed yet. He states he doesn't know if he can manage his wound vac at home. Patient states he may be open to SNF. SS will send out inquiry. SS contacted wound nurse to determine how long patient will need wound vac.
[2024-05-16 13:10] LABS: Uric Acid 8.5 mg/dL (3.7-9.2)
[2024-05-16] MEDS: metOLazone 2.5 MG TABLET 10 MG PO ×2 (14:05→22:38)
[2024-05-16] MEDS: EPOETIN ALFA-EPBX INJ 10,000 UNIT/ML VIAL (NON-ESRD) 10000 UNIT SC (14:06)
[2024-05-16 14:46] LABS: Total Iron Binding Capacity 179 mcg/dL (250-425)
[2024-05-16 14:55] LABS: Iron 13 mcg/dL (65-175); Percent Iron Saturation 7 % (20-55); Unsaturated Iron Binding 166 (225-295)
--- NOTE | 2024-05-16 16:48 | XR_ITS ---
Examination: Testicular sonography complete Technique: By resolution grayscale sonographic images testes, assessment arterial inflow venous outflow Doppler spectral analysis carful analysis Exam date and time: May 16, 20249 hrs. Indications: Bilateral testicular swelling and pain beginning 5 days ago Findings: Right testis 3.8 x 2.1 x 2.5 cm Epididymis 12 mm Arterial flow testicle. No testicular mass Mild hydrocele scrotal wall 5 cm Left testis 3.6 x 2.4 x 2.3 cm Epididymis 15 mm Arterial flow testicle. No testicular mass Mild hydrocele Scrotal wall 3.6 cm Impression: No testicular torsion or testicular mass Marked infectious or inflammatory thickening of the scrotal wall bilaterally, clinical correlation advised
--- NOTE | 2024-05-16 19:30 | ESPR_ITS ---
Documentation for date of: 05/16/24 Subjective Subjective Interval history: Patient was seen and examined at bedside. No acute events overnight. Today patient was complaining of new onset scrotal swelling with erythema and pain. On physical exam, dacosta cath is inserted and scrotum does appear swollen and warm. No noticeable discharge. Ultrasound of scrotum is pending. Will deescelate Abx to ceftriaxone. Net fluid in past 24 hours has been -3.8L while on IV Bumex 2mg every hour (total 20 mg). On 2L NC 94% saturation, WBC 20, Hb 7.8, Cr remains elevated but stable 2.2. Wound vac on left groin. Review of systems otherwise negative except what is mentioned above. Exam Vital Signs Temp Pulse Resp BP Pulse Ox O2 Del Method O2 Flow Rate 97.7 F 78 18 148/69 H 92 L Room Air 1.5 05/16/24 16:00 05/16/24 16:00 05/16/24 16:00 05/16/24 16:00 05/16/24 16:00 05/16/24 16:00 05/16/24 12:00 FiO2 35 05/14/24 12:00 Narrative Exam General: awake, morbid obese, HEENT: Normocephalic, atraumatic, PERRLA, EOMI Heart: Regular rate and rhythm, no murmurs. Lungs: decreased breath sounds noted bilaterally in view of body habitus Abdomen: Soft, obese and nontender on all four quadrants. Severe tenderness noted in the left groin and thigh area, s/p I&D with wound vac : swollen, erythematous scrotum Extremities: Bilateral pitting 2+ pedal edema is noted; improvement noted. Skin: No rash. Ecchymotic patch is noted on the abdomen right to the umbilicus. 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 Objective Labs 05/17/24 05:23 05/17/24 05:23 Labs: Laboratory Results - last 24 hr 05/16/24 05:26 WBC 20.5 H RBC 3.05 L Hgb 7.8 L Hct 25.6 L MCV 84 MCH 25.6 MCHC 30.5 L RDW Std Deviation 49.1 H Plt Count 255 D Neut % (Auto) 78 Lymph % (Auto) 5 L Bartholomew % (Auto) 8 Eos % (Auto) 1 Baso % (Auto) 0 Neut # (Auto) 15.9 H Lymph # (Auto) 1.0 Bartholomew # (Auto) 1.5 H Eos # (Auto) 0.2 Baso # (Auto) 0.1 Immature Gran # (Auto) 1.88 H Absolute Nucleated RBC 0.00 Immature Gran % 9 H Nucleated RBC % 0 Smear Path Review Sent to Pathologist Sodium 134 L Potassium 3.9 Chloride 101 Carbon Dioxide 24.9 Anion Gap 8 BUN 58 H Creatinine 2.2 H Estim Creat Clear Calc 55.7 L eGFR 34 L BUN/Creatinine Ratio 26 H Glucose 181 H D Calculated Osmolality 289 Uric Acid 8.5 Calcium 8.3 Corrected Calcium 9.3 Phosphorus 5.3 H Magnesium 1.6 Iron 13 L TIBC 179 L Iron Saturation 7 L Unsat Iron Binding 166 L Albumin 2.8 L Random Vancomycin 15.8 ABG Interpretation ABG results: 05/10/24 05/13/24 12:26 11:23 ABG pH 7.34 L 7.36 ABG pCO2 43 40 ABG pO2 127 H 75 L D ABG HCO3 23 23 ABG O2 Saturation 100 H 94 ABG Base Excess -2 -3 Quality Measures Quality Measures sepsis Current suspected stage: sepsis Possible source: unknown Blood cultures ordered: completed in ED Antibiotic ordered: Yes Assessment & Plan Assessment Current Active Medications: Generic Name Dose Route Start Last Admin Trade Name Freq PRN Reason Stop Dose Admin Acetaminophen 650 mg 05/11/24 11:28 05/14/24 11:53 Acetaminophen 325 Mg Tablet PO 06/09/24 17:37 650 mg Q6H PRN Administration Fever >100.3 or pain(1-3) Hydrocodone Bitart/Acetaminophen 1 tab 05/14/24 12:02 05/16/24 16:03 Hydrocodone/Apap 10/325 Tab PO 05/19/24 12:00 1 tab Q6HR PRN Administration Pain (Scale Score 4-6) Amlodipine Besylate 5 mg 05/12/24 09:00 05/16/24 08:21 Amlodipine Besylate 5 Mg Tablet PO 06/11/24 08:59 5 mg QDAY RINA Administration Apixaban 5 mg 05/11/24 14:00 05/16/24 08:21 Apixaban 2.5 Mg Tablet PO 06/01/24 13:59 5 mg BID RINA Administration Atorvastatin Calcium 40 mg 05/12/24:00 05/15/24 21:56 Atorvastatin Calcium 20 Mg Tablet PO 06/11/24 20:59 40 mg HS RINA Administration Bumetanide 2 mg 05/12/24 15:00 05/14/24 09:46 Bumetanide Inj 0.25 Mg/Ml Vial 4 Ml IVP 06/11/24 14:59 2 mg BID RINA Administration Dextrose 25 ml 05/10/24 19:30 05/15/24 22:15 Dextrose 50%-Water Inj 50 Ml Syringe IV 06/09/24 19:29 25 ml Q15MIN PRN Administration BG 50-70 responsive npo pt Dextrose 50 ml 05/10/24 19:30 Dextrose 50%-Water Inj 50 Ml Syringe IV 06/09/24 19:29 Q15MIN PRN BG <50 OR BG <70 & pt unresponsive Glucagon 1 mg 05/10/24 19:30 Glucagon Inj 1 Mg Vial IM Q15MIN PRN BG <70, and no IV access Hydralazine HCl 10 mg 05/10/24 19:11 05/12/24 11:54 Hydralazine Inj 20 Mg/Ml Vial IV 06/09/24 19:10 10 mg Q6H PRN Administration High blood pressure Piperacillin/Tazobactam/Dextrose 50 mls @ 12.5 mls/hr 05/14/24 14:00 05/16/24 13:27 Zosyn IV 05/21/24 13:59 12.5 mls/hr Q8HR RINA Administration Protocol Bumetanide 20 mg/ IV 80 mls @ 8 mls/hr 05/16/24 12:29 05/16/24 14:06 Miscellaneous Supplies IV 05/17/24 08:28 2 mg/hr .Q10H RINA 8 mls/hr Administration 2 MG/HR Insulin Glargine 80 unit 05/15/24 21:00 05/15/24 21:59 Insulin Glargine (Lantus) 5 Unit/0.05 Ml (Per 5 Units) SC 06/14/24 20:59 Not Given HS RINA Insulin Human Lispro 0 unit 05/13/24 09:00 05/16/24 16:31 Insulin Lispro (Admelog) 1 Unit/0.01 Ml Unit SC 06/12/24 08:59 10 unit AC RINA Administration Protocol Insulin Human Lispro 12 unit 05/15/24 11:30 05/16/24 16:32 Insulin Lispro (Admelog) 1 Unit/0.01 Ml Unit SC 06/14/24 11:29 12 unit AC RINA Administration Metolazone 10 mg 05/16/24 12:30 05/16/24 14:05 Metolazone 2.5 Mg Tablet PO 06/15/24 12:29 10 mg BID RINA Administration Metoprolol Succinate 100 mg 05/10/24 19:00 05/16/24 08:20 Metoprolol Succinate Xl 25 Mg Tabcr PO 06/09/24 18:59 100 mg QDAY RINA Administration Morphine Sulfate 3 mg 05/16/24 19:14 Morphine Sulf Inj 10 Mg/Ml Vial IV Q8HR PRN PAIN RATED 4-10 Ondansetron HCl 4 mg 05/10/24 17:38 Ondansetron Inj 2 Mg/Ml Inj 2 Ml IV 06/09/24 17:37 Q6H PRN NAUSEA OR VOMITING Protocol Pharmacy Consult 1 each 05/12/24 11:20 Vancomycin Pharmacy To Dose 1 Each Each IV 06/11/24 11:19 QDAY PRN PROTOCOL Pregabalin 150 mg 05/12/24 22:00 05/16/24 13:27 Pregabalin 75 Mg Capsule PO 06/11/24 21:59 150 mg TID RINA Administration Sennosides 1 tab 05/13/24 14:45 05/16/24 08:21 Senna Tablet PO 06/12/24 14:44 1 tab QDAY RINA Administration Protocol Plan 54-year-old male with past medical history of insulin-dependent diabetes mellitus, CAD, HFpEF, CVA with b/l endarterectomy, pulmonary embolism on Eliquis, hypertension, obstructive sleep apnea, hypertension, OHS/CAROLYN, cirrhosis, recent hospital admission 2 weeks ago for CHF exacerbation and left groin abscess presented to the ED after family found patient on the floor. Initially per ED he presented with altered mental status. However was able to regain consciousness after some time while on BiPAP. Patient being admitted for AHRF 2/2 sepsis 2/2 cellulitis. #Acute on chronic CHF Exacerbation #History HFpEF Most recent echo from 04/24/2024 shows EF 55-60%. At home patient takes bumetanide 1 mg p.o. twice daily and spironolactone 50 mg p.o. twice daily. BNP elevated Chest x-ray shows mild to moderate CHF Hypervolemic with exam findings showing +2pitting edema; improving Adequate response to diuresis; -2.7L over 24 hours; net negative -1.6L Plan: Continue Bumex gtt per nephrology recs Will consider doing HD if patient does not respond adequately to Bumex gtt Strict I&Os Low sodium diet Keep potassium >4, mag >2 Daily CBC, CMP #AHRF 2/2 CHF exacerbation vs. sepsis, improving Ddx: He has history of CAROLYN/OHS, with noncompliance of any CPAP machine at home. 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 Presented to ED saturating at 84% on room air. Subsequently started on oxy mask high flow and progressed to BiPAP. Now saturating 97-98% on 10 L. Chest x-ray negative for any acute changes. Revealing moderate CHF. ABG 05/13 shows: pH 7.36, pCO2 40, pO2 75, Hco3 23 Plan: Treating underlying CHF exacerbation and sepsis, GNR bacteremia Continue BiPAP at bedtime DuoNeb treatment as needed Continuous pulse ox monitoring #Abscess left groin s/p I&D Day 5 #Sepsis 2/2 E coli bacteremia #Leukocytosis Most likely abscess --local pain in left groin, tenderness, warmth, swelling, oozing. SIRS 4/4. Received 1 L bolus normal saline in ED. Pro-Angelo elevated 12, normal lactic acid 0.9 Blood cultures positive for GNR Wound culture positive for GPC Pruett-sensitive ecoli grown from cultures Repeat blood cultures no growth 24 hours Plan: Surgery reviewed I&D site 05/15 and state more drainage upon compressing the mons pubis but no future surgical drainage required Stop IV vancomycin and IV Zosyn De escalate to Rocefin. Acetaminophen as needed for fever On morphine 4 mg every 8 hours and added home [place] 10 as needed every 6 hours. Wound care consulted for daily dressing and management of wound VAC #Scrotal swelling Patient complained of scrotal swelling and pain. On physical exam scrotum is enlarged, warm, erythematous. May be due to patient's volume overloaded status with severe water retention/swelling vs epididymitis vs testicular torsion vs cellulitis -Follow-up with scrotal ultrasound #Hypertensive emergency, resolved Initial blood pressures at the time of presentation to the ED is 180/102 mmHg. Patient was given a dose of hydralazine 10 Mg and nitroglycerin topical patch. Despite those, blood pressures are still elevated so patient was started on nicardipine drip 5 Mg per hour Plan: Hydralazine 10mg IV q6hr PRN On home medication metoprolol succinate 100 p.o. daily Continue Amlodipine 5 mg p.o. daily Continue monitoring blood pressure #Troponinemia 2/2 demand ischemia, resolved Most likely NSTEMI II related to underlying sepsis vs NSTEMI 1 as patient does have history of CAD. Troponins are downtrending from 0.103 to 0.095. EKG shows no acute ischemic changes. Plan: Continue monitoring for any changes in symptoms #ZENY, stable Ddx: Prerenal ZENY due to hypoperfusion in setting of sepsis vs cardiorenal syndrome vs nephrotoxic agents Creatinine stable 2.2 Plan: Nephrology consulted; appreciate recommendations Avoid nephrotoxic agents Daily CMP #History of CAROLYN/OHS Unsure at this time patient is compliant with any CPAP machine at home. not compliant with use apparently Plan: Continue BiPAP at night; patient apparently refusing #Poorly controlled Insulin-dependent type 2 diabetes On admission initial glucose 461. Last A1c 11.7 in October 2023. Patient takes Ozempic, 50 units insulin glargine, aspart sliding scale for diabetes at home. A1c >14 Plan: Held home medications Bedside blood glucose checks ACHS Increased to 80 units glargine Lispro increased to 12u pre-meals Continue insulin sliding scale Carb consistent low diet Diabetes education #Adrenal nodule 25 mm right adrenal nodule Incidental adrenal nodule noted on CT Plan: Follow-up outpatient with reimaging #History hypertension Continue metoprolol succinate 100 p.o. daily #History cirrhosis Follow-up outpatient #History PE Continue apixaban 5 mg p.o. twice daily #History of CAD Continue atorvastatin 40 mg p.o. at bedtime Health Maintenance: Lines: PIV Diet: Carb consistent Bowel: Senna GI prophylaxis: Not needed DVT prophylaxis: Eliqui 5 BID Dispo: s/p I&D left groin, gram negative bacteremia (E. coli) and volume overloaded requiring bumex gtt Code: Full Patient seen and examined with attending Dr. Wayne and senior resident Dr. Jairo Keller PGY-1 Attending Provider Attestation/Addendum I have discussed and was present for the essential components of the history, physical examination, diagnosis, and treatment plan with the resident. I agree with the patient's care as documented by the resident and amended herein by me. Jah Wayne, DO. Although this document has been carefully reviewed, there may still be some phonetic and other typographical errors. These errors are purely grammatical due to imperfections in the software program and should not be construed in any way to compromise the substance of the patient's medical care during this visit.
[2024-05-16] MEDS: MORPHINE SULF INJ 10 MG/ML VIAL 3 MG IV (20:09)
[2024-05-16] MEDS: cefTRIAXone/D5w 1gm IV premix 50 ML IV (22:34)
[2024-05-16] MEDS: ATORVASTATIN CALCIUM 20 MG TABLET 40 MG PO (22:38)
[2024-05-16] MEDS: INSULIN GLARGINE (Lantus) 5 UNIT/0.05 ML (PER 5 UNITS) 80 UNIT SC (22:56)
[2024-05-17] VITALS (11 sets, daily range): BP systolic 122–165; BP diastolic 59–82; PULSE 73–93; RESP 14–20; TEMP 36.4–36.9; O2SAT 94–96
[2024-05-17] MEDS: BUMETANIDE INJ 0.25 MG/ML VIAL 10 ML 20 MG (00:18)
[2024-05-17] MEDS: [UNRECOGNIZED DRUG - SUPPLY] 8 BAG (00:18)
[2024-05-17] MEDS: BUMETANIDE INJ 20 MG in CONTAINER,EMPTY 50 ML 1 BAG 8 MG IV ×3 (00:18→22:23)
[2024-05-17] MEDS: PREGABALIN 75 MG CAPSULE 150 MG PO ×3 (05:13→21:37)
[2024-05-17] MEDS: MORPHINE SULF INJ 10 MG/ML VIAL 3 MG IV (05:13)
[2024-05-17 05:50] LABS: Basophils # (Auto) 0.1 Thou/mm3 (0.0-0.2); Basophils % (Auto) 1 % (0-2.5); Eosinophils # (Auto) 0.3 Thou/mm3 (0.0-0.5); Eosinophils % (Auto) 2 % (0-10); Hematocrit 25.9 % (41.0-53.0); Immature Granulocytes % (Auto) 14 % (0-0); Immature Granulocytes Auto 2.31 Thou/mm3 (0.00-0.00); Lymphocytes # (Auto) 1.5 Thou/mm3 (1.0-4.8); Lymphocytes % (Auto) 9 % (10-50); Mean Corpuscular HGB Conc 30.9 g/dl (31.0-37.0); Mean Corpuscular Hemoglobin 25.1 pg (25.0-35.0); Mean Corpuscular Volume 81 fL (80-100); Monocytes # (Auto) 1.6 Thou/mm3 (0.0-0.8); Monocytes % (Auto) 10 % (0-12); Neutrophils # (Auto) 11.3 Thou/mm3 (1.8-7.7); Neutrophils % (Auto) 66 % (37-80); Nucleated Red Blood Cell % 0 /100 WBC (0); Platelet Count 317 Thou/mm3 (140-440); RDW Standard Deviation 47.3 fL (35.1-43.9); Red Blood Count 3.19 Miln/mm3 (4.50-5.90); White Blood Count 17.2 Thou/mm3 (3.8-10.6)
[2024-05-17 06:12] LABS: Albumin, Serum 2.9 gm/dL (3.5-5.0); Anion Gap 8 (7-16); BUN/Creatinine Ratio 28 Ratio (12-20); Blood Urea Nitrogen 56 mg/dL (9-23); Calcium 8.3 mg/dL (8.3-10.6); Calcium (Corrected) 9.2 mg/dL (8.5-10.1); Carbon Dioxide 28.1 mMol/L (20.0-31.0); Chloride 97 mMol/L (98-107); Estimated Creatinine Clearance 59.8 mL/min (>60); Glucose 181 mg/dL (74-106); Osmolality,Calculated 286 (275-295); Potassium 3.6 mMol/L (3.4-5.1); Sodium 133 mMol/L (136-145); Vancomycin,Random 19.3 mcg/mL; eGFR 38 See Note
[2024-05-17] MEDS: INSULIN LISPRO (AdmeLOG) 1 UNIT/0.01 ML UNIT 12 UNIT SC ×2 (07:58→17:55)
[2024-05-17] MEDS: INSULIN LISPRO (AdmeLOG) 1 UNIT/0.01 ML UNIT SC ×3 (08:00→20:55)
[2024-05-17] MEDS: SENNA TABLET 1 TAB PO (09:59)
[2024-05-17] MEDS: HYDROcodone/APAP 10/325 TAB PO ×2 (09:59→17:56)
[2024-05-17] MEDS: APIXABAN 2.5 MG TABLET 5 MG PO ×2 (09:59→20:51)
[2024-05-17] MEDS: metOLazone 2.5 MG TABLET 10 MG PO ×2 (09:59→20:51)
[2024-05-17] MEDS: amLODIPine BESYLATE 5 MG TABLET PO (10:00)
[2024-05-17] MEDS: METOPROLOL SUCCINATE XL 25 MG TABCR 100 MG PO (10:01)
[2024-05-17] MEDS: cefTRIAXone/D5w 1gm IV premix 50 ML IV (10:02)
--- NOTE | 2024-05-17 10:03 | PC.SS ---
Follow up note: SS met with patient to discuss final d/c plans. He states that he's been in excruciating pain from his testical and they think it may be cellulitis. Patient has a wound vac on groin and may need this for at least 2 months per wound care nurse. Patient confirmed he will need SNF. Patient first choice is [facility] and second is [facility]. [facility] declined. [facility] will be here this morning for on site eval. We will need to know if patient will need i.v. antibiotics at SNF.
[2024-05-17] MEDS: Magnesium Sulfate 4 GM Ivpb 4 GM/50 ML BAG IV (11:15)
--- NOTE | 2024-05-17 11:33 | ESPR_ITS ---
RE: JILL HIDALGO : 1970 DATE OF SERVICE: 05/16/2024 S: This patient is a 54-year-old gentleman with a history of smoking in the past for 20 pack years, quit some time ago, coronary artery disease, heart failure with preserved ejection fraction of 55% to 60%, CVA with history of bilateral endarterectomy, pulmonary embolism on Eliquis, hypertension, obstructive sleep apnea syndrome, type 2 diabetes, insulin- dependent, who presented to the hospital on 04/2024 with weakness and anasarca. Patient also has left groin abscess with fever and severe leukocytosis. When he presented to the hospital on 05/10, he was found with a creatinine level of 1.8, which peaked at 2.4. His baseline serum creatinine is anywhere from 1.0 to 1.2. For his infection, he was started on IV vancomycin. He was also being followed by Dr. Haney. He underwent an I and D of the abscess of the left thigh and groin and debridement of the necrotic tissue. The patient meanwhile has anasarca and was initially given Bumex 2 mg b.i.d. The patient continues to be very swollen. He is currently awake and has no specific concern. CURRENT MEDICATIONS: 1. Acetaminophen. 2. Amlodipine. 3. Apixaban 5 mg b.i.d. 4. Calcium 40 mg p.o. at bedtime. 5. Bumex 2 mg IV b.i.d. on hold was tried on Bumex drip 1 mg per hour. 6. Rocephin 1 g IV daily. 7. Hydralazine 10 mg IV every 6 hours. 8. Colo. 9. Lantus 80 units C at bedtime. 10. Lispro. 11. Pregabalin 150 mg t.i.d. 12. Metoprolol 100 mg p.o. daily. 13. Vancomycin 1 g IV x1. O: GENERAL: He is awake, alert, oriented. VITAL SIGNS: Blood pressure of 142/82, heart rate of 76. HEENT: Anicteric sclerae, normocephalic. NECK: Supple. No JVD. CHEST AND LUNGS: Symmetrical expansion. Clear breath sounds. HEART: Without murmur. ABDOMEN: Soft with abdominal wall edema. EXTREMITIES: 3 to 4+ bilateral pitting edema. LABORATORY DATA: On 05/16/2024, sodium 134, potassium 3.9, chloride 101, CO2 of 24.9, BUN 58, creatinine 2.2, glucose 181, iron saturation 7%, hemoglobin 8, WBC 17,200, platelet count 217,000. A: 1. Acute kidney injury on stage II to III CKD most likely secondary to cardiorenal syndrome vs volume overload. 2. A 9.3 grams proteinuria secondary to diabetic nephropathy. 3. Left groin abscess. 4. Heart failure with preserved ejection fraction of 55% to 60%. 5. Type 2 diabetes, insulin-dependent. 6. History of hypertension. 7. Anemia of chronic inflammation and possibly CKD and iron deficiency. P: I will escalate his diuretic to Bumex drip at 2 mg per hour with metolazone 10 mg b.i.d. for the next few days. I will also give him one dose of Epogen 10,000 units x1 and start him on IV iron once his infection is under good control. I will monitor him very closely. We will keep his intake at around 1500 mL so we can maximize fluid removal and negative fluid balance. Continue monitoring urine output, kidney function, electrolytes on a daily basis. DT: 10:09:05 TT: 11:18:00 Ref: [id number] - TID: [id number] MTDD
--- NOTE | 2024-05-17 13:41 | ESPR_ITS ---
<Statement entered by Jaquelin Sparrow MD - 05/17/24 16:54> I discussed with and supervised the internal medicine veterinary technician physician who took care of this patient. I personally saw and examined the patient and discussed the assessment and plan with the entire medicine team, including my attending , I agree with most of the assessment and plan as documented below Jaquelin Sparrow M.D. PGY-2 Documentation for date of: 05/17/24 Subjective Subjective Interval history: 05/17/2024: No acute overnight events to report. Patient seen and examined hospital bed reporting persistent left groin/inguinal region tenderness; otherwise, denies having any concerning symptoms such as chest pain/tightness, shortness of breath or palpitations. Patient's WBC count is downtrending and wound VAC is still in place. Spoke with general surgery, Dr. Haney, on the phone regarding the patient's left inguinal region tenderness. Dr. Haney states that there is no surgical intervention required at this point, will continue antibiotics and manage pain. Exam Vital Signs Temp Pulse Resp BP Pulse Ox O2 Del Method O2 Flow Rate 98.4 F 74 14 122/59 L 96 Room Air 1 05/17/24 11:24 05/17/24 11:24 05/17/24 11:24 05/17/24 11:24 05/17/24 11:24 05/17/24 11:24 05/16/24 19:53 FiO2 35 05/14/24 12:00 Narrative Exam General: awake, morbid obese, slurred speech but answers questions appropriately, appears stated age HEENT: Normocephalic, atraumatic, PERRLA, EOMI Heart: Regular rate and rhythm, no murmurs. Lungs: decreased breath sounds noted bilaterally in view of body habitus Abdomen/: Soft, obese and nontender on all four quadrants. Severe tenderness noted in the left groin and thigh area, s/p I&D with wound vac Extremities: Bilateral pitting 1+ pedal edema is noted; improvement noted. Skin: No rash. Ecchymotic patch is noted on the abdomen right to the umbilicus. 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 Objective Labs 05/18/24 05:40 05/18/24 05:40 Labs: Laboratory Results - last 24 hr 05/16/24 05/17/24 05:26 05:23 WBC 17.2 H RBC 3.19 L Hgb 8.0 L Hct 25.9 L MCV 81 MCH 25.1 MCHC 30.9 L RDW Std Deviation 47.3 H Plt Count 317 D Neut % (Auto) 66 Lymph % (Auto) 9 L [place] % (Auto) 10 Eos % (Auto) 2 Baso % (Auto) 1 Neut # (Auto) 11.3 H Lymph # (Auto) 1.5 [place] # (Auto) 1.6 H Eos # (Auto) 0.3 Baso # (Auto) 0.1 Immature Gran # (Auto) 2.31 H Absolute Nucleated RBC 0.00 Immature Gran % 14 H Nucleated RBC % 0 Sodium 133 L Potassium 3.6 Chloride 97 L Carbon Dioxide 28.1 Anion Gap 8 BUN 56 H Creatinine 2.0 H Estim Creat Clear Calc 59.8 L eGFR 38 L BUN/Creatinine Ratio 28 H Glucose 181 H Calculated Osmolality 286 Calcium 8.3 Corrected Calcium 9.2 Phosphorus 5.0 Iron 13 L TIBC 179 L Iron Saturation 7 L Unsat Iron Binding 166 L Albumin 2.9 L Random Vancomycin 19.3 ABG Interpretation ABG results: 05/10/24 05/13/24 12:26 11:23 ABG pH 7.34 L 7.36 ABG pCO2 43 40 ABG pO2 127 H 75 L D ABG HCO3 23 23 ABG O2 Saturation 100 H 94 ABG Base Excess -2 -3 Quality Measures Quality Measures sepsis Current suspected stage: ruled out Possible source: unknown Blood cultures ordered: completed in ED Antibiotic ordered: Yes Assessment & Plan Assessment Current Active Medications: Generic Name Dose Route Start Last Admin Trade Name Freq PRN Reason Stop Dose Admin Acetaminophen 650 mg 05/11/24 11:28 05/14/24 11:53 Acetaminophen 325 Mg Tablet PO 06/09/24 17:37 650 mg Q6H PRN Administration Fever >100.3 or pain(1-3) Hydrocodone Bitart/Acetaminophen 1 tab 05/14/24 12:02 05/17/24 09:59 Hydrocodone/Apap 10/325 Tab PO 05/19/24 12:00 1 tab Q6HR PRN Administration Pain (Scale Score 4-6) Amlodipine Besylate 5 mg 05/12/24 09:00 05/17/24 10:00 Amlodipine Besylate 5 Mg Tablet PO 06/11/24 08:59 5 mg QDAY RINA Administration Apixaban 5 mg 05/11/24 14:00 05/17/24 09:59 Apixaban 2.5 Mg Tablet PO 06/01/24 13:59 5 mg BID RINA Administration Atorvastatin Calcium 40 mg 05/12/24 21:00 05/16/24 22:38 Atorvastatin Calcium 20 Mg Tablet PO 06/11/24 20:59 40 mg HS RINA Administration Bumetanide 2 mg 05/12/24 15:00 05/14/24 09:46 Bumetanide Inj 0.25 Mg/Ml Vial 4 Ml IVP 06/11/24 14:59 2 mg BID RINA Administration Dextrose 25 ml 05/10/24 19:30 05/15/24 22:15 Dextrose 50%-Water Inj 50 Ml Syringe IV 06/09/24 19:29 25 ml Q15MIN PRN Administration BG 50-70 responsive npo pt Dextrose 50 ml 05/10/24 19:30 Dextrose 50%-Water Inj 50 Ml Syringe IV 06/09/24 19:29 Q15MIN PRN BG <50 OR BG <70 & pt unresponsive Glucagon 1 mg 05/10/24 19:30 Glucagon Inj 1 Mg Vial IM Q15MIN PRN BG <70, and no IV access Hydralazine HCl 10 mg 05/10/24 19:11 05/12/24 11:54 Hydralazine Inj 20 Mg/Ml Vial IV 06/09/24 19:10 10 mg Q6H PRN Administration High blood pressure Ceftriaxone Sodium/Dextrose 50 mls @ 100 mls/hr 05/16/24 19:38 05/17/24 10:02 Rocephin/D5w 1gm Iv Premix IV 05/23/24 19:37 100 mls/hr QDAY RINA Administration Bumetanide 20 mg/ IV 80 mls @ 8 mls/hr 05/17/24 11:57 05/17/24 12:46 Miscellaneous Supplies IV 05/18/24 07:56 2 mg/hr .Q10H RINA 8 mls/hr Administration 2 MG/HR Insulin Glargine 80 unit 05/15/24 21:00 05/16/24 22:56 Insulin Glargine (Lantus) 5 Unit/0.05 Ml (Per 5 Units) SC 06/14/24 20:59 80 unit HS RINA Administration Insulin Human Lispro 12 unit 05/15/24 11:30 05/17/24 11:50 Insulin Lispro (Admelog) 1 Unit/0.01 Ml Unit SC 06/14/24 11:29 Not Given AC RINA Insulin Human Lispro 0 unit 05/16/24 23:00 05/17/24 11:50 Insulin Lispro (Admelog) 1 Unit/0.01 Ml Unit SC 06/15/24 22:59 Not Given [facility] Protocol Metolazone 10 mg 05/16/24 12:30 05/17/24 09:59 Metolazone 2.5 Mg Tablet PO 06/15/24 12:29 10 mg BID RINA Administration Metoprolol Succinate 100 mg 05/10/24 19:00 05/17/24 10:01 Metoprolol Succinate Xl 25 Mg Tabcr PO 06/09/24 18:59 100 mg QDAY RINA Administration Morphine Sulfate 4 mg 05/17/24 13:25 Morphine Sulf Inj 10 Mg/Ml Vial IV 05/22/24 13:24 Q8HR PRN PAIN RATED 4-10 Protocol Ondansetron HCl 4 mg 05/10/24 17:38 Ondansetron Inj 2 Mg/Ml Inj 2 Ml IV 06/09/24 17:37 Q6H PRN NAUSEA OR VOMITING Protocol Pregabalin 150 mg 05/12/24 22:00 05/17/24 05:13 Pregabalin 75 Mg Capsule PO 06/11/24 21:59 150 mg TID RINA Administration Sennosides 1 tab 05/13/24 14:45 05/17/24 09:59 Senna Tablet PO 06/12/24 14:44 1 tab QDAY RINA Administration Protocol Plan 54-year-old male with past medical history of insulin-dependent diabetes mellitus, CAD, HFpEF, CVA with b/l endarterectomy, pulmonary embolism on Eliquis, hypertension, obstructive sleep apnea, hypertension, OHS/CAROLYN, cirrhosis, recent hospital admission 2 weeks ago for CHF exacerbation and left groin abscess presented to the ED after family found patient on the floor. Initially per ED he presented with altered mental status. However was able to regain consciousness after some time while on BiPAP. Patient being admitted for AHRF 2/2 sepsis 2/2 cellulitis. #Acute on chronic CHF Exacerbation #History HFpEF Most recent echo from 04/24/2024 shows EF 55-60%. At home patient takes bumetanide 1 mg p.o. twice daily and spironolactone 50 mg p.o. twice daily. BNP elevated Chest x-ray shows mild to moderate CHF Hypervolemic with exam findings showing +2pitting edema; improving Adequate response to diuresis; -3.7L over 24 hours; net negative -7.8L Plan: Continue Bumex gtt per nephrology recs Will consider doing HD if patient does not respond adequately to Bumex gtt Strict I&Os Low sodium diet Keep potassium >4, mag >2 Daily CBC, CMP #AHRF 2/2 CHF exacerbation vs. sepsis, improving Ddx: He has history of CAROLYN/OHS, with noncompliance of any CPAP machine at home. 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 Presented to ED saturating at 84% on room air. Subsequently started on oxy mask high flow and progressed to BiPAP. Now saturating 97-98% on 10 L. Chest x-ray negative for any acute changes. Revealing moderate CHF. ABG 05/13 shows: pH 7.36, pCO2 40, pO2 75, Hco3 23 Plan: Treating underlying CHF exacerbation and sepsis, GNR bacteremia Continue BiPAP at bedtime DuoNeb treatment as needed Continuous pulse ox monitoring #Abscess left groin s/p I&D Day 5 #Sepsis 2/2 E coli bacteremia #Leukocytosis Most likely abscess --local pain in left groin, tenderness, warmth, swelling, oozing. SIRS 4/4. Received 1 L bolus normal saline in ED. Pro-Angelo elevated 12, normal lactic acid 0.9 Blood cultures positive for GNR Wound culture positive for GPC [place]-sensitive ecoli grown from cultures Repeat blood cultures no growth 24 hours Plan: Surgery, Dr. Haney, following the patient appreciate recommendations Patient on Rocephin Acetaminophen as needed for fever On morphine 4 mg every 8 hours and home Roxana 10 as needed every 6 hours. Wound care consulted for daily dressing and management of wound VAC #Scrotal swelling Patient complained of scrotal swelling and pain. On physical exam scrotum is enlarged, warm, erythematous. May be due to patient's volume overloaded status with severe water retention/swelling vs epididymitis vs testicular torsion vs cellulitis Scrotal ultrasound does not show any signs of torsion or mass; there is scrotal wall thickening Plan: Dr. Haney examined the patient and does not believe there is any surgical intervention required at this time Will continue to manage pain at this time #Hypertensive emergency, resolved Initial blood pressures at the time of presentation to the ED is 180/102 mmHg. Patient was given a dose of hydralazine 10 Mg and nitroglycerin topical patch. Despite those, blood pressures are still elevated so patient was started on nicardipine drip 5 Mg per hour Plan: Started patient on losartan 100 mg, home medication Hydralazine 10mg IV q6hr PRN On home medication metoprolol succinate 100 p.o. daily Continue Amlodipine 5 mg p.o. daily Continue monitoring blood pressure #Troponinemia 2/2 demand ischemia, resolved Most likely NSTEMI II related to underlying sepsis vs NSTEMI 1 as patient does have history of CAD. Troponins are downtrending from 0.103 to 0.095. EKG shows no acute ischemic changes. Plan: Continue monitoring for any changes in symptoms #ZENY, stable Ddx: Prerenal ZENY due to hypoperfusion in setting of sepsis vs cardiorenal syndrome vs nephrotoxic agents Creatinine stable 2.2 Plan: Nephrology (Dr South) consulted; appreciate recommendations Fluid restriction 1.5 L Avoid nephrotoxic agents Daily CMP #History of CAROLYN/OHS Unsure at this time patient is compliant with any CPAP machine at home. not compliant with use apparently Plan: Continue BiPAP at night; patient apparently refusing #Poorly controlled Insulin-dependent type 2 diabetes On admission initial glucose 461. Last A1c 11.7 in October 2023. Patient takes Ozempic, 50 units insulin glargine, aspart sliding scale for diabetes at home. A1c >14 Plan: Held home medications Bedside blood glucose checks ACHS Increased to 80 units glargine Lispro increased to 12u pre-meals Continue insulin sliding scale Carb consistent low diet Diabetes education #Adrenal nodule 25 mm right adrenal nodule Incidental adrenal nodule noted on CT Plan: Follow-up outpatient with reimaging #History hypertension Continue metoprolol succinate 100 p.o. daily #History cirrhosis Follow-up outpatient #History PE Continue apixaban 5 mg p.o. twice daily #History of CAD Continue atorvastatin 40 mg p.o. at bedtime Health Maintenance: Lines: PIV Diet: Carb consistent Bowel: Senna GI prophylaxis: Not needed DVT prophylaxis: Eliqui 5 BID Dispo: White count downtrending; general surgery following appreciate recommendations Code: Full Patient seen and examined with attending Dr. Wayne and senior resident Dr. Andrews Suresh, PGY-1 Attending Provider Attestation/Addendum I have discussed and was present for the essential components of the history, physical examination, diagnosis, and treatment plan with the resident. I agree with the patient's care as documented by the resident and amended herein by me. Jah Wayne, DO. Although this document has been carefully reviewed, there may still be some phonetic and other typographical errors. These errors are purely grammatical due to imperfections in the software program and should not be construed in any way to compromise the substance of the patient's medical care during this visit.
[2024-05-17] MEDS: MORPHINE SULF INJ 10 MG/ML VIAL 4 MG IV (13:58)
--- NOTE | 2024-05-17 14:34 | ESPR_ITS ---
RE: JILL HIDALGO : 1970 DATE OF SERVICE: 05/17/2024 S: This patient is a 54-year-old gentleman with history of smoking in the past for 20 pack years, quit some time ago, coronary artery disease, heart failure with preserved ejection fraction of 55% to 60%, CVA with history of bilateral endarterectomy, pulmonary embolism on Eliquis, hypertension, obstructive sleep apnea syndrome, type 2 diabetes, insulin-dependent who presented to the hospital on 05/10/2024 with weakness and anasarca. The patient also has left groin abscess with fever and severe leukocytosis. When he presented to the hospital on 05/10/2024, he was found with a creatinine level of 1.8, which peaked to 2.4. His baseline serum creatinine is anywhere from 1 to 1.2. For his infection, he was started on IV vancomycin. He was also being followed by Dr. Haney and he underwent an I and D of the abscess of the left thigh and groin and debridement of the necrotic tissue. The patient meanwhile has anasarca and was initially given Bumex 2 mg b.i.d. and then Bumex drip at 2 mg per hour. The patient also has a 9.3 gram proteinuria. He is more awake and is doing okay. CURRENT MEDICATIONS: 1. Acetaminophen. 2. Amlodipine 5 mg daily. 3. Apixaban 5 mg p.o. b.i.d. 4. Atorvastatin. 5. Bumetanide drip 2 mg per hour for the next 10 hours. 6. Rocephin 1 g daily. 7. Hydralazine 10 mg IV q.6 hours. 8. Lantus 80 units at bedtime. 9. Lispro sliding scale. 10. Metolazone 10 mg b.i.d. 11. Metoprolol 100 mg p.o. daily. 12. Morphine. PHYSICAL EXAM: General: He is awake, alert, oriented, not in respiratory distress. Vital Signs: Blood pressure 122/59, heart rate of 74, respiratory rate of 14, O2 sat 96% on room air. HEENT: Normocephalic. Neck: Supple. No JVD Chest and Lungs: Symmetrical expansion. Clear breath sounds. Heart: Without murmur. Abdomen: Soft with abdominal wall edema. Extremities: 2 to 3+ bilateral pitting edema, but less. LABORATORY DATA: Hemoglobin 8, WBC 17,200, platelet count 217,000. Sodium 132, potassium 3.6, chloride 97, CO2 28.1, BUN 56, creatinine 2, glucose 181. A: 1. Acute kidney injury on stage II-III chronic kidney disease, most likely secondary to cardiorenal syndrome versus volume overload. 2. 9.3 g of proteinuria secondary to diabetic nephropathy. 3. Left groin abscess s/p I and D 4. Heart failure with preserved ejection fraction of 55% to 60%. 5. Diabetes which is insulin dependent. 6. History of hypertension. 7. Anemia of chronic inflammation and possibly chronic kidney disease and iron deficiency. P: I will continue the Bumex drip at 2 mg per hour for the next 10 hours. Continue metolazone 10 mg b.i.d. Once more stable in terms of his blood pressure medication like ARB or EL inhibitors would hopefully mitigate the effects of severe proteinuria. SGLT2 inhibitors like Jardiance or Farxiga should be taken with caution, given that he has history of vasculopathy. Nevertheless, the patient is also receiving Eliquis. We will continue to monitor his urine output, kidney function, CBC on a daily basis. The patient's urine output exceeded 5 liters since yesterday. 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 DT: 13:15:30 TT: 14:32:00 Ref: [id number] - TID: [id number] MTDD
[2024-05-17] MEDS: LOSARTAN POTASSIUM 25 MG TABLET 100 MG PO (15:37)
--- NOTE | 2024-05-17 20:02 | PC.NURSE ---
Patients blood sugar is 146. Patient has order of 80 units of lantus. SHAWNA Gamboa attempting to call hospitalist to see if is okay to give, but hospitalists is not answering.
[2024-05-17] MEDS: ATORVASTATIN CALCIUM 20 MG TABLET 40 MG PO (20:51)
[2024-05-17] MEDS: INSULIN GLARGINE (Lantus) 5 UNIT/0.05 ML (PER 5 UNITS) 80 UNIT SC (20:53)
[2024-05-17] MEDS: MORPHINE SULF INJ 10 MG/ML VIAL 4 MG IVP (22:21)
[2024-05-18] VITALS (13 sets, daily range): BP systolic 125–144; BP diastolic 65–96; PULSE 71–96; RESP 16–21; TEMP 36.3–36.7; O2SAT 92–96
[2024-05-18] MEDS: HYDROcodone/APAP 10/325 TAB PO ×3 (00:59→18:07)
--- NOTE | 2024-05-18 01:43 | PC.NURSE ---
Addendum entered by Cooper Laienz RN 05/18/24 01:46: Dr. Sanchez will restart order. Original Note: Lyrica 150mg PO discontinued due to reach stop date. SHAWNA Gamboa will ask hospitalist if he wishes to continue.
[2024-05-18] MEDS: PREGABALIN 50 MG CAPSULE 150 MG PO (05:52)
[2024-05-18] MEDS: MORPHINE SULF INJ 10 MG/ML VIAL 4 MG IVP ×2 (06:29→14:56)
[2024-05-18 06:35] LABS: Basophils # (Auto) 0.1 Thou/mm3 (0.0-0.2); Basophils % (Auto) 1 % (0-2.5); Eosinophils # (Auto) 0.3 Thou/mm3 (0.0-0.5); Eosinophils % (Auto) 1 % (0-10); Immature Granulocytes % (Auto) 10 % (0-0); Immature Granulocytes Auto 1.99 Thou/mm3 (0.00-0.00); Lymphocytes # (Auto) 1.5 Thou/mm3 (1.0-4.8); Lymphocytes % (Auto) 8 % (10-50); Mean Corpuscular HGB Conc 31.6 g/dl (31.0-37.0); Mean Corpuscular Hemoglobin 25.8 pg (25.0-35.0); Mean Corpuscular Volume 82 fL (80-100); Monocytes # (Auto) 1.8 Thou/mm3 (0.0-0.8); Monocytes % (Auto) 9 % (0-12); Neutrophils # (Auto) 13.8 Thou/mm3 (1.8-7.7); Neutrophils % (Auto) 71 % (37-80); Nucleated Red Blood Cell % 0 /100 WBC (0); Platelet Count 327 Thou/mm3 (140-440); RDW Standard Deviation 47.1 fL (35.1-43.9); Red Blood Count 3.06 Miln/mm3 (4.50-5.90); White Blood Count 19.4 Thou/mm3 (3.8-10.6)
[2024-05-18 06:39] LABS: Hemoglobin 7.9 g/dL (13.5-16.0)
[2024-05-18 07:00] LABS: Alanine Aminotransferase 12 U/L (10-49); Albumin, Serum 2.8 gm/dL (3.5-5.0); Albumin/Globulin Ratio 0.8 (1.2-2.2); Alkaline Phosphatase 202 U/L (46-116); Anion Gap 7 (7-16); Aspartate Amino Transferase 20 U/L (0-34); BUN/Creatinine Ratio 31 Ratio (12-20); Bilirubin,Total < 0.2 mg/dL (0.3-1.2); Blood Urea Nitrogen 58 mg/dL (9-23); Calcium 8.4 mg/dL (8.3-10.6); Calcium (Corrected) 9.4 mg/dL (8.5-10.1); Carbon Dioxide 31.9 mMol/L (20.0-31.0); Chloride 95 mMol/L (98-107); Creatinine (Component) 1.9 mg/dL (0.6-1.3); Estimated Creatinine Clearance 61.7 mL/min (>60); Globulin 3.3 gm/dL (2.3-3.5); Glucose 144 mg/dL (74-106); Magnesium 1.9 mg/dL (1.6-2.6); Osmolality,Calculated 287 (275-295); Potassium 3.3 mMol/L (3.4-5.1); Sodium 134 mMol/L (136-145); Total Protein 6.1 gm/dL (5.7-8.2); eGFR 41 See Note
[2024-05-18] MEDS: INSULIN LISPRO (AdmeLOG) 1 UNIT/0.01 ML UNIT 12 UNIT SC ×3 (07:54→16:35)
[2024-05-18] MEDS: INSULIN LISPRO (AdmeLOG) 1 UNIT/0.01 ML UNIT SC ×4 (07:55→22:00)
[2024-05-18] MEDS: APIXABAN 2.5 MG TABLET 5 MG PO ×2 (09:12→21:56)
[2024-05-18] MEDS: POTASSIUM CHLORIDE 20 mEq TABCR PO (09:12)
[2024-05-18] MEDS: cefTRIAXone/D5w 1gm IV premix 50 ML IV (09:12)
[2024-05-18] MEDS: METOPROLOL SUCCINATE XL 25 MG TABCR 100 MG PO (09:13)
[2024-05-18] MEDS: LOSARTAN POTASSIUM 25 MG TABLET 100 MG PO (09:14)
[2024-05-18] MEDS: amLODIPine BESYLATE 5 MG TABLET PO (09:14)
[2024-05-18] MEDS: POTASSIUM CHLORIDE 20 mEq TABCR 40 MEQ PO (10:07)
[2024-05-18] MEDS: metOLazone 2.5 MG TABLET 10 MG PO ×2 (10:07→21:57)
[2024-05-18] MEDS: BUMETANIDE INJ 20 MG in CONTAINER,EMPTY 50 ML 1 BAG 8 MG IV ×2 (11:35→21:53)
[2024-05-18] MEDS: PREGABALIN 75 MG CAPSULE 150 MG PO ×2 (13:25→21:56)
[2024-05-18] MEDS: SENNA TABLET 1 TAB PO (17:32)
[2024-05-18] MEDS: POLYETHYLENE GLYCOL 17 GM PACKET PO (17:32)
--- NOTE | 2024-05-18 18:37 | PC.NURSE ---
Outside food and drinks brought in by family, family and patient educated on the importance of adhering to consistent carb diet and 1500ml fluid restriction. Patient and family verbalized understanding.
--- NOTE | 2024-05-18 19:15 | ESPR_ITS ---
RE: JILL HIDALGO : 1970 DATE OF SERVICE: 05/18/2024 S: The patient is a 54-year-old gentleman with a history of smoking in the past 20 pack years, quit sometime ago, coronary artery disease, heart failure with preserved ejection fraction of 55% to 60%, CVA with history of bilateral endarterectomy, pulmonary embolism on Eliquis, hypertension, obstructive sleep apnea syndrome, type 2 diabetes, which is insulin-dependent, who presented to the hospital in 05/10/24 with weakness and anasarca. The patient also has a left groin abscess with fever and severe leukocytosis. When he presented to the hospital in 04/2024, he was found with a creatinine level of 1.8, which peaked at 2.4. He was also being followed by Dr. Haney and he underwent an I and D of the abscess of the left thigh and groin and debridement of the necrotic tissue. The patient meanwhile has anasarca and was initially given Bumex 2 mg IV b.i.d. and then Bumex drip at 2 mg per hour. He has good response. The patient also has 9.3 g of proteinuria. CURRENT MEDICATIONS: 1. Acetaminophen. 2. Amlodipine. 3. Eliquis 5 mg b.i.d. 4. Atorvastatin. 5. Rocephin 1 g daily. 6. Hydralazine p.r.n. 7. Hydrocodone. 8. Lantus 80 units at bedtime. 9. Lispro sliding scale. 10. Losartan 100 mg p.o. daily. 11. Metolazone 10 mg b.i.d. 12. Pregabalin 150 mg b.i.d. O: General: He is awake, alert, and oriented. Vital Signs: Blood pressure of 144/66, heart rate of 75, and O2 saturation of 95% on room air. HEENT: Anicteric sclerae, normocephalic. Neck: Supple. No JVD. Chest and Lungs: Symmetrical expansion. Clear breath sounds. Heart: Without murmur. Abdomen: Soft with abdominal wall edema. Extremities: 2 to 3+ peripheral edema in both lower extremities. LABORATORY DATA: Hemoglobin 7.9, WBC 19,400, platelet count 227,000, sodium 134, potassium 3.4, chloride 95, CO2 of 31.9, BUN 58, creatinine 1.9, glucose 144, calcium 8.4. A: 1. Acute kidney injury on stage II to III chronic kidney disease secondary to cardiorenal syndrome, possibly from volume overload as well-improving slowly 2. A 9.3 g of proteinuria secondary to diabetic nephropathy. 3. Left groin abscess status post I and D. 4. Heart failure with preserved EF of 55% to 60%. 5. Diabetes, which is insulin-dependent. 6. History of hypertension. 7. Anemia of chronic kidney disease. P: I will continue his Bumex treatment at 2 mg per hour for the next 10 hours. I agree with starting him on losartan 100 mg p.o. daily for his blood pressure and proteinuria. Continue monitoring his urine output, kidney function, and CBC on a daily basis. DT: 17:40:46 TT: 18:54:00 Ref: [id number] - TID: [id number] MTDD
[2024-05-18] MEDS: SIMETHICONE 80 MG CHEW PO (21:52)
[2024-05-18] MEDS: ATORVASTATIN CALCIUM 20 MG TABLET 40 MG PO (21:56)
[2024-05-18] MEDS: INSULIN GLARGINE (Lantus) 5 UNIT/0.05 ML (PER 5 UNITS) 80 UNIT SC (22:03)
--- NOTE | 2024-05-18 22:31 | ESPR_ITS ---
<Statement entered by Jaquelin Sparrow MD - 05/18/24 23:02> I discussed with and supervised the architecture intern physician who took care of this patient. I personally saw and examined the patient and discussed the assessment and plan with the entire medicine team, including my attending Dr. Wayne, I agree with most of the assessment and plan as documented below Jaquelin Sparrow M.D. PGY-2 Documentation for date of: 05/18/24 Subjective Subjective Interval history: Patient was seen and examined at bedside. No acute events overnight. Today patient states his hands feel less swollen but continues having pain in left inguinal region. Still appears to very fluid overloaded on exam with +3 pitting edema to mid calf and scortal swelling. Net -6.5L fluid loss, continue with IV Bumex 2mg/hr x10 hours and restart losartan 100mg PO daily due to proteinuria. Will continue to trend Cr--today 1.9 improving. Labs, telemetry, and vitals were reviewed.?No further complaints at this time. Review of systems otherwise negative except what is mentioned above. Exam Vital Signs Temp Pulse Resp BP Pulse Ox O2 Del Method O2 Flow Rate 97.4 F 76 21 H 129/74 93 L Room Air 1 05/18/24 20:00 05/18/24 21:57 05/18/24 20:00 05/18/24 21:57 05/18/24 20:00 05/18/24 20:00 05/18/24 16:00 FiO2 35 05/18/24 16:00 Narrative Exam General: awake, morbid obese, answers questions appropriately, appears stated age HEENT: Normocephalic, atraumatic, PERRLA, EOMI Heart: Regular rate and rhythm, no murmurs. Lungs: decreased breath sounds noted bilaterally in view of body habitus Abdomen/: Soft, obese and nontender on all four quadrants. Severe tenderness noted in the left groin and thigh area, s/p I&D with wound vac Extremities: Bilateral pitting 3+ pedal edema extended to calf Skin: No rash. Ecchymotic patch is noted on the abdomen right to the umbilicus. Neuro: No focal neurologic deficits noted, baker pie strength 5/5 Objective Labs 05/19/24 05:33 05/19/24 05:33 Labs: Laboratory Results - last 24 hr 05/18/24 05:40 WBC 19.4 H RBC 3.06 L Hgb 7.9 L Hct 25.0 L MCV 82 MCH 25.8 MCHC 31.6 RDW Std Deviation 47.1 H Plt Count 327 Neut % (Auto) 71 Lymph % (Auto) 8 L [place] % (Auto) 9 Eos % (Auto) 1 Baso % (Auto) 1 Neut # (Auto) 13.8 H Lymph # (Auto) 1.5 [place] # (Auto) 1.8 H Eos # (Auto) 0.3 Baso # (Auto) 0.1 Immature Gran # (Auto) 1.99 H Absolute Nucleated RBC 0.00 Immature Gran % 10 H Nucleated RBC % 0 Sodium 134 L Potassium 3.3 L Chloride 95 L Carbon Dioxide 31.9 H Anion Gap 7 BUN 58 H Creatinine 1.9 H Estim Creat Clear Calc 61.7 eGFR 41 L BUN/Creatinine Ratio 31 H Glucose 144 H Calculated Osmolality 287 Calcium 8.4 Corrected Calcium 9.4 Magnesium 1.9 Total Bilirubin < 0.2 L AST 20 ALT 12 Alkaline Phosphatase 202 H Total Protein 6.1 Albumin 2.8 L Globulin 3.3 Albumin/Globulin Ratio 0.8 L ABG Interpretation ABG results: 05/10/24 05/13/24 12:26 11:23 ABG pH 7.34 L 7.36 ABG pCO2 43 40 ABG pO2 127 H 75 L D ABG HCO3 23 23 ABG O2 Saturation 100 H 94 ABG Base Excess -2 -3 Quality Measures Quality Measures sepsis Current suspected stage: sepsis Possible source: unknown Blood cultures ordered: completed in ED Antibiotic ordered: Yes Assessment & Plan Assessment Current Active Medications: Generic Name Dose Route Start Last Admin Trade Name Freq PRN Reason Stop Dose Admin Acetaminophen 650 mg 05/11/24 11:28 05/14/24 11:53 Acetaminophen 325 Mg Tablet PO 06/09/24 17:37 650 mg Q6H PRN Administration Fever >100.3 or pain(1-3) Hydrocodone Bitart/Acetaminophen 1 tab 05/14/24 12:02 05/18/24 18:07 Hydrocodone/Apap 10/325 Tab PO 05/19/24 12:00 1 tab Q6HR PRN Administration Pain (Scale Score 4-6) Amlodipine Besylate 5 mg 05/12/24 09:00 05/18/24 09:14 Amlodipine Besylate 5 Mg Tablet PO 06/11/24 08:59 5 mg QDAY RINA Administration Apixaban 5 mg 05/11/24 14:00 05/18/24 21:56 Apixaban 2.5 Mg Tablet PO 06/01/24 13:59 5 mg BID RINA Administration Atorvastatin Calcium 40 mg 05/12/24 21:00 05/18/24 21:56 Atorvastatin Calcium 20 Mg Tablet PO 06/11/24 20:59 40 mg HS RINA Administration Bumetanide 2 mg 05/12/24 15:00 05/14/24 09:46 Bumetanide Inj 0.25 Mg/Ml Vial 4 Ml IVP 06/11/24 14:59 2 mg BID RINA Administration Dextrose 25 ml 05/10/24 19:30 05/15/24 22:15 Dextrose 50%-Water Inj 50 Ml Syringe IV 06/09/24 19:29 25 ml Q15MIN PRN Administration BG 50-70 responsive npo pt Dextrose 50 ml 05/10/24 19:30 Dextrose 50%-Water Inj 50 Ml Syringe IV 06/09/24 19:29 Q15MIN PRN BG <50 OR BG <70 & pt unresponsive Glucagon 1 mg 05/10/24 19:30 Glucagon Inj 1 Mg Vial IM Q15MIN PRN BG <70, and no IV access Hydralazine HCl 10 mg 05/10/24 19:11 05/12/24 11:54 Hydralazine Inj 20 Mg/Ml Vial IV 06/09/24 19:10 10 mg Q6H PRN Administration High blood pressure Ceftriaxone Sodium/Dextrose 50 mls @ 100 mls/hr 05/16/24 19:38 05/18/24 09:12 Rocephin/D5w 1gm Iv Premix IV 05/23/24 19:37 100 mls/hr QDAY RINA Administration Bumetanide 20 mg/ IV 80 mls @ 8 mls/hr 05/18/24 10:59 05/18/24 21:53 Miscellaneous Supplies IV 05/19/24 06:58 2 mg/hr .Q10H RINA 8 mls/hr Administration 2 MG/HR Insulin Glargine 80 unit 05/15/24 21:00 05/18/24 22:03 Insulin Glargine (Lantus) 5 Unit/0.05 Ml (Per 5 Units) SC 06/14/24 20:59 80 unit HS RINA Administration Insulin Human Lispro 12 unit 05/15/24 11:30 05/18/24 16:35 Insulin Lispro (Admelog) 1 Unit/0.01 Ml Unit SC 06/14/24 11:29 12 unit AC RINA Administration Insulin Human Lispro 0 unit 05/16/24 23:00 05/18/24 22:00 Insulin Lispro (Admelog) 1 Unit/0.01 Ml Unit SC 06/15/24 22:59 10 unit ACHS RINA Administration Protocol Losartan Potassium 100 mg 05/17/24 14:00 05/18/24 09:14 Losartan Potassium 25 Mg Tablet PO 06/16/24 13:59 100 mg DAILY RINA Administration Metolazone 10 mg 05/16/24 12:30 05/18/24 21:57 Metolazone 2.5 Mg Tablet PO 06/15/24 12:29 10 mg BID RINA Administration Metoprolol Succinate 100 mg 05/10/24 19:00 05/18/24 09:13 Metoprolol Succinate Xl 25 Mg Tabcr PO 06/09/24 18:59 100 mg QDAY RINA Administration Morphine Sulfate 4 mg 05/18/24 11:03 05/18/24 14:56 Morphine Sulf Inj 10 Mg/Ml Vial IVP 05/22/24 18:58 4 mg Q8HR PRN Administration PAIN SCALE 7-10 (Severe Ondansetron HCl 4 mg 05/10/24 17:38 Ondansetron Inj 2 Mg/Ml Inj 2 Ml IV 06/09/24 17:37 Q6H PRN NAUSEA OR VOMITING Protocol Polyethylene Glycol 17 gm 05/18/24 17:25 05/18/24 17:32 Polyethylene Glycol 17 Gm Packet PO 06/17/24 17:24 17 gm QDAY RINA Administration Pregabalin 150 mg 05/18/24 14:00 05/18/24 21:56 Pregabalin 75 Mg Capsule PO 06/17/24 05:59 150 mg TID RINA Administration Sennosides 1 tab 05/13/24 14:45 05/18/24 09:15 Senna Tablet PO 06/12/24 14:44 Not Given QDAY RINA Protocol Sennosides 1 tab 05/18/24 17:23 05/18/24 17:32 Senna Tablet PO 06/17/24 17:22 1 tab QDAY PRN Administration CONSTIPATION Protocol Simethicone 80 mg 05/18/24 21:45 05/18/24 21:52 Simethicone 80 Mg Chew PO 06/17/24 21:44 80 mg QID PRN Administration GAS Plan 54-year-old male with past medical history of insulin-dependent diabetes mellitus, CAD, HFpEF, CVA with b/l endarterectomy, pulmonary embolism on Eliquis, hypertension, obstructive sleep apnea, hypertension, OHS/CAROLYN, cirrhosis, recent hospital admission 2 weeks ago for CHF exacerbation and left groin abscess presented to the ED after family found patient on the floor. Initially per ED he presented with altered mental status. However was able to regain consciousness after some time while on BiPAP. Patient being admitted for AHRF 2/2 sepsis 2/2 cellulitis. #Acute on chronic CHF Exacerbation #History HFpEF Most recent echo from 04/24/2024 shows EF 55-60%. At home patient takes bumetanide 1 mg p.o. twice daily and spironolactone 50 mg p.o. twice daily. BNP elevated Chest x-ray shows mild to moderate CHF Hypervolemic with exam findings showing +2pitting edema; improving Adequate response to diuresis; -3.7L over 24 hours; net negative -7.8L Plan: Continue Bumex gtt per nephrology recs Will consider doing HD if patient does not respond adequately to Bumex gtt Strict I&Os Low sodium diet Keep potassium >4, mag >2 Daily CBC, CMP #AHRF 2/2 CHF exacerbation vs. sepsis, improving Ddx: He has history of CAROLYN/OHS, with noncompliance of any CPAP machine at home. 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 Presented to ED saturating at 84% on room air. Subsequently started on oxy mask high flow and progressed to BiPAP. Now saturating 97-98% on 10 L. Chest x-ray negative for any acute changes. Revealing moderate CHF. ABG 05/13 shows: pH 7.36, pCO2 40, pO2 75, Hco3 23 Plan: Treating underlying CHF exacerbation and sepsis, GNR bacteremia Continue BiPAP at bedtime DuoNeb treatment as needed Continuous pulse ox monitoring #Abscess left groin s/p I&D Day 6 #Sepsis 2/2 E coli bacteremia #Leukocytosis Most likely abscess --local pain in left groin, tenderness, warmth, swelling, oozing. SIRS 4/4. Received 1 L bolus normal saline in ED. Pro-Angel[place] elevated 12, normal lactic acid 0.9 Blood cultures positive for GNR Wound culture positive for GPC [place]-sensitive ecoli grown from cultures Repeat blood cultures no growth 24 hours Plan: Surgery, Dr. Haney, following the patient appreciate recommendations Patient on Rocephin Acetaminophen as needed for fever On morphine 4 mg every 8 hours and home [place] 10 as needed every 6 hours. Wound care consulted for daily dressing and management of wound VAC #Scrotal swelling Patient complained of scrotal swelling and pain. On physical exam scrotum is enlarged, warm, erythematous. May be due to patient's volume overloaded status with severe water retention/swelling vs epididymitis vs testicular torsion vs cellulitis Scrotal ultrasound does not show any signs of torsion or mass; there is scrotal wall thickening Plan: Dr. Haney examined the patient and does not believe there is any surgical intervention required at this time Will continue to manage pain at this time #Hypertensive emergency, resolved Initial blood pressures at the time of presentation to the ED is 180/102 mmHg. Patient was given a dose of hydralazine 10 Mg and nitroglycerin topical patch. Despite those, blood pressures are still elevated so patient was started on nicardipine drip 5 Mg per hour Plan: Started patient on losartan 100 mg, home medication Hydralazine 10mg IV q6hr PRN On home medication metoprolol succinate 100 p.o. daily Continue Amlodipine 5 mg p.o. daily Continue monitoring blood pressure #Troponinemia 2/2 demand ischemia, resolved Most likely NSTEMI II related to underlying sepsis vs NSTEMI 1 as patient does have history of CAD. Troponins are downtrending from 0.103 to 0.095. EKG shows no acute ischemic changes. Plan: Continue monitoring for any changes in symptoms #ZENY, improving Ddx: Prerenal ZENY due to hypoperfusion in setting of sepsis vs cardiorenal syndrome vs nephrotoxic agents Creatinine stable 1.9 Plan: Nephrology (Dr South) consulted; appreciate recommendations Fluid restriction 1.5 L Avoid nephrotoxic agents Daily CMP -restart losartan 100 mg PO due to proteinuria #History of CAROLYN/OHS Unsure at this time patient is compliant with any CPAP machine at home. not compliant with use apparently Plan: Continue BiPAP at night; patient apparently refusing #Poorly controlled Insulin-dependent type 2 diabetes On admission initial glucose 461. Last A1c 11.7 in October 2023. Patient takes Ozempic, 50 units insulin glargine, aspart sliding scale for diabetes at home. A1c >14 Plan: Held home medications Bedside blood glucose checks ACHS Increased to 80 units glargine Lispro increased to 12u pre-meals Continue insulin sliding scale Carb consistent low diet Diabetes education #Adrenal nodule 25 mm right adrenal nodule Incidental adrenal nodule noted on CT Plan: Follow-up outpatient with reimaging #History hypertension Continue metoprolol succinate 100 p.o. daily #History cirrhosis Follow-up outpatient #History PE Continue apixaban 5 mg p.o. twice daily #History of CAD Continue atorvastatin 40 mg p.o. at bedtime Health Maintenance: Lines: PIV Diet: Carb consistent Bowel: Senna GI prophylaxis: Not needed DVT prophylaxis: Eliqui 5 BID Dispo: White count downtrending; general surgery following appreciate recommendations Code: Full Patient seen and examined with attending Dr. Wayne and senior resident Dr. Andrews Keller, PGY-1 Attending Provider Attestation/Addendum I have discussed and was present for the essential components of the history, physical examination, diagnosis, and treatment plan with the resident. I agree with the patient's care as documented by the resident and amended herein by me. Jah Wayne DO. Although this document has been carefully reviewed, there may still be some phonetic and other typographical errors. These errors are purely grammatical due to imperfections in the software program and should not be construed in any way to compromise the substance of the patient's medical care during this visit.
[2024-05-19] VITALS (14 sets, daily range): BP systolic 119–144; BP diastolic 56–69; PULSE 60–74; RESP 18–20; TEMP 36.1–36.8; O2SAT 92–97; BMI 47.2; BMI 47.4
[2024-05-19] MEDS: MORPHINE SULF INJ 10 MG/ML VIAL 4 MG IVP ×3 (00:12→12:54)
[2024-05-19] MEDS: HYDROcodone/APAP 10/325 TAB PO ×3 (01:20→21:16)
[2024-05-19] MEDS: PREGABALIN 75 MG CAPSULE 150 MG PO ×3 (05:18→21:16)
[2024-05-19 06:07] LABS: Basophils # (Auto) 0.1 Thou/mm3 (0.0-0.2); Basophils % (Auto) 0 % (0-2.5); Eosinophils # (Auto) 0.1 Thou/mm3 (0.0-0.5); Eosinophils % (Auto) 1 % (0-10); Hematocrit 26.9 % (41.0-53.0); Immature Granulocytes % (Auto) 7 % (0-0); Immature Granulocytes Auto 1.91 Thou/mm3 (0.00-0.00); Lymphocytes # (Auto) 1.1 Thou/mm3 (1.0-4.8); Lymphocytes % (Auto) 4 % (10-50); Mean Corpuscular HGB Conc 31.6 g/dl (31.0-37.0); Mean Corpuscular Hemoglobin 25.7 pg (25.0-35.0); Mean Corpuscular Volume 81 fL (80-100); Monocytes # (Auto) 2.1 Thou/mm3 (0.0-0.8); Monocytes % (Auto) 8 % (0-12); Neutrophils # (Auto) 21.3 Thou/mm3 (1.8-7.7); Neutrophils % (Auto) 80 % (37-80); Nucleated Red Blood Cell % 0 /100 WBC (0); Platelet Count 349 Thou/mm3 (140-440); RDW Standard Deviation 45.2 fL (35.1-43.9); Red Blood Count 3.31 Miln/mm3 (4.50-5.90); White Blood Count 26.6 Thou/mm3 (3.8-10.6)
[2024-05-19 06:24] LABS: Alanine Aminotransferase 14 U/L (10-49); Albumin, Serum 3.1 gm/dL (3.5-5.0); Albumin/Globulin Ratio 0.9 (1.2-2.2); Alkaline Phosphatase 196 U/L (46-116); Anion Gap 8 (7-16); Aspartate Amino Transferase 23 U/L (0-34); BUN/Creatinine Ratio 33 Ratio (12-20); Bilirubin,Total 0.2 mg/dL (0.3-1.2); Blood Urea Nitrogen 60 mg/dL (9-23); Calcium 8.5 mg/dL (8.3-10.6); Calcium (Corrected) 9.2 mg/dL (8.5-10.1); Carbon Dioxide 30.7 mMol/L (20.0-31.0); Chloride 94 mMol/L (98-107); Creatinine (Component) 1.8 mg/dL (0.6-1.3); Estimated Creatinine Clearance 65.1 mL/min (>60); Globulin 3.4 gm/dL (2.3-3.5); Glucose 150 mg/dL (74-106); Magnesium 1.9 mg/dL (1.6-2.6); Osmolality,Calculated 286 (275-295); Potassium 3.4 mMol/L (3.4-5.1); Sodium 133 mMol/L (136-145); Total Protein 6.5 gm/dL (5.7-8.2); eGFR 44 See Note
[2024-05-19 06:30] LABS: Hemoglobin 8.5 g/dL (13.5-16.0)
[2024-05-19] MEDS: cefTRIAXone/D5w 1gm IV premix 50 ML IV (09:24)
[2024-05-19] MEDS: POTASSIUM CHLORIDE 20 mEq TABCR 40 MEQ PO (09:24)
[2024-05-19] MEDS: METOPROLOL SUCCINATE XL 25 MG TABCR 100 MG PO (09:25)
[2024-05-19] MEDS: LOSARTAN POTASSIUM 25 MG TABLET 100 MG PO (09:25)
[2024-05-19] MEDS: hydrALAZINE HCL 25 MG TABLET 50 MG PO (09:27)
[2024-05-19] MEDS: APIXABAN 2.5 MG TABLET 5 MG PO ×2 (09:27→20:40)
[2024-05-19] MEDS: metOLazone 2.5 MG TABLET 10 MG PO ×2 (09:39→20:40)
[2024-05-19] MEDS: INSULIN LISPRO (AdmeLOG) 1 UNIT/0.01 ML UNIT SC ×4 (09:42→20:45)
--- NOTE | 2024-05-19 10:54 | PC.NURSE ---
[id number] Dr. Keller notified of bedside glucose of 135, orders to recheck blood sugar after patient has eaten before the administration Lispro. Recheck of bedside glucose 141 after breakfast, Dr. Keller at bedside ordered hold of scheduled 12 units lispro, give 4 units per sliding scale.
--- NOTE | 2024-05-19 11:40 | PC.NURSE ---
Received a callfrom Dr Haney, he would like for me to change the wound vac dressing today, and would like to see the wound, while dressing is off, will call Dr Haney when dressing removed. Bedside RN Jessica busy at this time, she will call me when ready to do the dressing change. POWERHOUSE ENGINEER's in room at this time cleaning up the pt,
[2024-05-19 11:56] LABS: Alanine Aminotransferase 17 U/L (10-49); Albumin, Serum 2.6 gm/dL (3.5-5.0); Alkaline Phosphatase 213 U/L (46-116); Aspartate Amino Transferase 22 U/L (0-34); Bilirubin,Direct < 0.1 mg/dL (0.0-0.3); Bilirubin,Total 0.2 mg/dL (0.3-1.2); Total Protein 5.6 gm/dL (5.7-8.2)
[2024-05-19] MEDS: CEFEPIME INJ 2 GM in SODIUM CHLORIDE 0.9% (P) 50 ML IV (12:04)
--- NOTE | 2024-05-19 12:20 | ESPR_ITS ---
RE: JILL HIDALGO : 1970 DATE OF SERVICE: 05/16/2024 S: The patient is a 54-year-old male with coronary artery disease, congestive heart failure, CVA with bilateral endarterectomy, PE on Eliquis, hypertension, cirrhosis who presented to emergency room on 05/10/2024 with weakness and confusion. The patient was also found extremely volume overloaded and was started on Bumex drip at 2 mg/mL. The patient continues to have good urine output. CURRENT MEDICATIONS: 1. Lantus. 2. Metolazone. 3. Metoprolol. 4. Morphine. 5. Pregabalin. 6. Ondansetron. 7. Senna. 8. Vancomycin. GENERAL: She is awake, alert, oriented. VITAL SIGNS: Blood pressure of 155/75, heart rate of 75, respiratory rate of 18, and O2 saturation of 96%. HEENT: Anicteric sclerae. Normocephalic. NECK: Supple. No JVD. CHEST AND LUNGS: Normal expansion. Clear breath sounds. HEART: Without murmur. ABDOMEN: Soft, nontender. EXTREMITIES: No edema. CURRENT MEDICATIONS: 1. Apixaban 5 mg daily. 2. Atorvastatin 40 mg at bedtime. 3. Bumex 2 mg per hour. 4. Lispro sliding scale insulin. 5. Metoprolol. 6. Pregabalin. 7. Senna. 8. Amlodipine. 9. Ceftriaxone. 10. Zaroxolyn 10 mg b.i.d. LABORATORY DATA: Hemoglobin 7.8, WBC 10,500, platelet count 255,000. Sodium 134, potassium 3.9, chloride 101, CO2 of 24.9, BUN 58, creatinine 2.2, glucose 181. A: 1. Acute on chronic congestive heart failure. 2. Type 2 diabetes with nephrotic syndrome whose uPCR is about 9.9 grams. 3. Stage IIIB chronic kidney disease. 4. Anasarca. 5. Diabetes. 6. Hypertension. P: Continue Bumex drip at 2 mg per hour and add metolazone 10 mg b.i.d. for effective diuresis. The patient may also benefit from SGLT2 inhibitor which should also be taken with caution as he has a history of vasculopathy. One of the undesirable effect in the study was limb amputation related to PVD. The patient should also continue his bumetanide drip at 2 mg per hour and see how far we can go without doing dialysis at this point. EL inhibitor and ARB should mitigate the effects of his proteinuria. We will continue to monitor him very closely and if the need for dialysis arises then the patient will be started on it. DT: 22:28:09 TT: 22:45:00 Ref: [id number] - TID: [id number] [facility]
--- NOTE | 2024-05-19 13:06 | PD.SURPROG ---
Documentation for date of: 05/19/24 Subjective Subjective Brief History: Patient is a morbidly obese white male who said that he has had pain in the groin for the past couple of days. He could not give any history because of the oxygen mask. He was admitted with a history of altered mental status and sepsis. He also has a acute respiratory failure with hypoxia. He has a history of generalized anasarca and chronic low back pain and diabetes mellitus which is poorly controlled. He also has a history of hypertension heart disease he has a history of COPD. It is very difficult to get information from the patient because he is not able to give definite history. Patient has a history of perianal cellulitis in the past Narrative: Patient is still complaining of some pain over the groin and over the scrotum Exam Vital Signs Temp Pulse Resp BP Pulse Ox O2 Del Method O2 Flow Rate 98.2 F 67 19 139/67 H 94 L Room Air 1 05/19/24 08:00 05/19/24 09:39 05/19/24 08:00 05/19/24 09:39 05/19/24 08:00 05/19/24 08:00 05/18/24 16:00 FiO2 35 05/18/24 16:00 Results Results: Laboratory Laboratory Narrative: Laboratory results show elevated WBCs Assessment & Plan Assessment Additional comments: The wound in the left groin is very clean and shows excellent granulation tissue which is pink. There is no further abscess or necrosis. Scrotal edema is decreasing. The abscess and infection seemed to have resolved Plan Plan: I will continue the present wound care management. There is no need for any further surgical intervention Procedures Procedures Incision and drainage of the abscess left thigh and groin and debridement of necrotic tissue.
[2024-05-19] MEDS: VANCOMYCIN/NS 1 GM IVPB 200 ML IV (13:25)
--- NOTE | 2024-05-19 13:25 | PC.NURSE ---
Dressing removed to Dr Lyndon villegas in room visualized wound, cleansed wound, re-applied wound vac as orders stated, pt. was given a 1X dose of Morphine 4mg for the procedure. Pt tolerated well , will cont. to monitor. wound bed beefy red, slight odor, no eschar or slough noted.
[2024-05-19] MEDS: metroNIDAZOLE 250 MG TABLET 500 MG PO ×2 (13:42→21:16)
[2024-05-19] MEDS: BUMETANIDE INJ 0.25 MG/ML VIAL 4 ML 2 MG IVP ×2 (14:17→21:23)
--- NOTE | 2024-05-19 15:34 | ESPR_ITS ---
RE: JILL HIDALGO : 1970 DATE OF SERVICE: 05/19/2024 SUBJECTIVE: This patient is a 54-year-old male with coronary artery disease, congestive heart failure, CVA with bilateral endarterectomy, PE, on Eliquis, hypertension, cirrhosis, who presented to the emergency room on 05/10/2024 with weakness and confusion. The patient was also found extremely volume overloaded and was started on Bumex at 2 mg per hour. The patient continues to have good urine output and today it is negative 5 liters total. CURRENT MEDICATIONS: 1. Lantus. 2. Metolazone. 3. Metoprolol. 4. Morphine. 5. Pregabalin. 6. Ondansetron. 7. Senna. 8. Vancomycin. 9. Bumex 2 mg IV b.i.d. OBJECTIVE: General: He is awake, alert, and oriented, not in respiratory distress. Vital Signs: Blood pressure of 139/67, heart rate of 67. HEENT: Anicteric sclerae, normocephalic. Neck: Supple. No JVD. Chest And Lungs: Symmetrical expansion. Clear breath sounds. Cardiac: Without murmur. Abdomen: Soft, nontender. Extremities: 2+ palpable edema. LABORATORY DATA: Hemoglobin 8.5, WBC 26,600, plate count 349,000. Sodium 132, potassium 3.4, chloride 94, CO2 of 30.7, BUN 60, creatinine 1.8, glucose 150. ASSESSMENT: 1. Acute on chronic kidney disease, now improved. 2. Type 2 diabetes with nephrotic syndrome whose uPCR is about 9.9 grams. 3. Stage IIIB chronic kidney disease. 4. Decompensated congestive heart failure. 5. Anasarca, now improved. 6. Diabetes. 7. Hypertension. PLAN: I will discontinue his Bumex drip and continue him on Bumex 2 mg IV t.i.d. with metolazone 10 mg b.i.d. for effective diuresis. We will continue to monitor his urine output, kidney function, CBC on a daily basis. Continue losartan 100 mg p.o. daily. DT: 14:02:41 TT: 15:31:00 Ref: [id number] - TID: [id number] [facility]
--- NOTE | 2024-05-19 16:46 | PC.NURSE ---
Patient's family delivered [employer], burger, [employer] [place], large soda, education again provided on fluid restrictions and diabetic food choices. patient verbalized understanding.
[2024-05-19] MEDS: INSULIN LISPRO (AdmeLOG) 1 UNIT/0.01 ML UNIT 12 UNIT SC (16:55)
[2024-05-19] MEDS: ACETAMINOPHEN 325 MG TABLET 650 MG PO (18:59)
[2024-05-19] MEDS: ATORVASTATIN CALCIUM 20 MG TABLET 40 MG PO (20:40)
--- NOTE | 2024-05-19 20:52 | PD.RESPRO ---
Documentation for date of: 05/19/24 Subjective Subjective Interval history: Patient was seen and examined at bedside. No acute events overnight. Per nursing, patient was lethargic and morning bedside glucose in 130s which runs low for this patient averaging in 300. Therefore held today scheduled lispro. Will continue to monitor. Patient continues to endorse pain in lower abdomen/inguinal region. Labs reviewed and significant for uptrending WBC from 19-26 today. Concern of worsening infection or poor coverage. Broaden spectrum from ceftriaxone to vancomycin/cefepime/Flagyl. New antibiotics are renally dosed. ZENY improving with creatinine down trended to 1.8 today. Still significant lower extremity edema, +3 to mid calf. Per Dr South recommendations, discontinue Bumex drip and continue him on Bumex 2 mg IV t.i.d. with metolazone 10 mg b.i.d. Continue losartan [address] daily. Per Dr. Haney, wound is healing adequately and scrotal swelling is improving. Labs, telemetry, and vitals were reviewed.?No further complaints at this time. Review of systems otherwise negative except what is mentioned above. Exam Vital Signs Temp Pulse Resp BP Pulse Ox O2 Del Method O2 Flow Rate 97.0 F 70 20 126/57 L 97 Room Air 1 05/19/24 20:00 05/19/24 20:40 05/19/24 20:00 05/19/24 20:40 05/19/24 20:00 05/19/24 20:00 05/18/24 16:00 FiO2 35 05/18/24 16:00 Narrative Exam General: awake, morbid obese, answers questions appropriately, appears stated age HEENT: Normocephalic, atraumatic, PERRLA, EOMI Heart: Regular rate and rhythm, no murmurs. Lungs: decreased breath sounds noted bilaterally in view of body habitus Abdomen/: Soft, obese and nontender on all four quadrants. Severe tenderness noted in the left groin and thigh area, s/p I&D with wound vac Extremities: Bilateral pitting 3+ pedal edema extended to calf Skin: No rash. Ecchymotic patch is noted on the abdomen right to the umbilicus. 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 Objective Labs 05/20/24 05:20 05/20/24 05:20 Labs: Laboratory Results - last 24 hr 05/19/24 05/19/24 05/19/24 05:33 05:33 05:33 WBC 26.6 H D RBC 3.31 L Hgb 8.5 L Hct 26.9 L MCV 81 MCH 25.7 MCHC 31.6 RDW Std Deviation 45.2 H Plt Count 349 Neut % (Auto) 80 Lymph % (Auto) 4 L [place] % (Auto) 8 Eos % (Auto) 1 Baso % (Auto) 0 Neut # (Auto) 21.3 H Lymph # (Auto) 1.1 [place] # (Auto) 2.1 H Eos # (Auto) 0.1 Baso # (Auto) 0.1 Immature Gran # (Auto) 1.91 H Absolute Nucleated RBC 0.00 Immature Gran % 7 H Nucleated RBC % 0 Sodium 133 L Potassium 3.4 Chloride 94 L Carbon Dioxide 30.7 Anion Gap 8 BUN 60 H Creatinine 1.8 H Estim Creat Clear Calc 65.1 eGFR 44 L BUN/Creatinine Ratio 33 H Glucose 150 H Calculated Osmolality 286 Calcium 8.5 Corrected Calcium 9.2 Magnesium 1.9 Total Bilirubin 0.2 L 0.2 L Direct Bilirubin < 0.1 AST 23 22 ALT 14 Alkaline Phosphatase Total Protein Albumin Globulin Albumin/Globulin Ratio 05/19/24 05/19/24 05/19/24 05:33 05:33 05:33 WBC RBC Hgb Hct MCV MCH MCHC RDW Std Deviation Plt Count Neut % (Auto) Lymph % (Auto) [place] % (Auto) Eos % (Auto) Baso % (Auto) Neut # (Auto) Lymph # (Auto) [place] # (Auto) Eos # (Auto) Baso # (Auto) Immature Gran # (Auto) Absolute Nucleated RBC Immature Gran % Nucleated RBC % Sodium Potassium Chloride Carbon Dioxide Anion Gap BUN Creatinine Estim Creat Clear Calc eGFR BUN/Creatinine Ratio Glucose Calculated Osmolality Calcium Corrected Calcium Magnesium Total Bilirubin Direct Bilirubin AST ALT 17 Alkaline Phosphatase 196 H 213 H Total Protein 6.5 5.6 L Albumin 3.1 L Globulin Albumin/Globulin Ratio 05/19/24 05:33 WBC RBC Hgb Hct MCV MCH MCHC RDW Std Deviation Plt Count Neut % (Auto) Lymph % (Auto) [place] % (Auto) Eos % (Auto) Baso % (Auto) Neut # (Auto) Lymph # (Auto) [place] # (Auto) Eos # (Auto) Baso # (Auto) Immature Gran # (Auto) Absolute Nucleated RBC Immature Gran % Nucleated RBC % Sodium Potassium Chloride Carbon Dioxide Anion Gap BUN Creatinine Estim Creat Clear Calc eGFR BUN/Creatinine Ratio Glucose Calculated Osmolality Calcium Corrected Calcium Magnesium Total Bilirubin Direct Bilirubin AST ALT Alkaline Phosphatase Total Protein Albumin 2.6 L D Globulin 3.4 Albumin/Globulin Ratio 0.9 L ABG Interpretation ABG results: 05/10/24 05/13/24 12:26 11:23 ABG pH 7.34 L 7.36 ABG pCO2 43 40 ABG pO2 127 H 75 L D ABG HCO3 23 23 ABG O2 Saturation 100 H 94 ABG Base Excess -2 -3 Quality Measures Quality Measures sepsis Current suspected stage: sepsis Possible source: unknown Blood cultures ordered: completed in ED Antibiotic ordered: Yes Assessment & Plan Assessment Current Active Medications: Generic Name Dose Route Start Last Admin Trade Name Freq PRN Reason Stop Dose Admin Acetaminophen 650 mg 05/11/24 11:28 05/19/24 18:59 Acetaminophen 325 Mg Tablet PO 06/09/24 17:37 650 mg Q6H PRN Administration Fever >100.3 or pain(1-3) Hydrocodone Bitart/Acetaminophen 1 tab 05/19/24 20:40 Hydrocodone/Apap 10/325 Tab PO 05/24/24 20:39 Q6HR PRN Breakthrough Pain Amlodipine Besylate 5 mg 05/20/24 09:00 Amlodipine Besylate 5 Mg Tablet PO 06/19/24 08:59 QDAY RINA Apixaban 5 mg 05/11/24 14:00 05/19/24 20:40 Apixaban 2.5 Mg Tablet PO 06/01/24 13:59 5 mg BID RINA Administration Atorvastatin Calcium 40 mg 05/12/24 21:00 05/19/24 20:40 Atorvastatin Calcium 20 Mg Tablet PO 06/11/24 20:59 40 mg HS RINA Administration Bumetanide 2 mg 05/19/24 14:00 05/19/24 14:17 Bumetanide Inj 0.25 Mg/Ml Vial 4 Ml IVP 06/18/24 13:59 2 mg Q8HR RINA Administration Dextrose 25 ml 05/10/24 19:30 05/15/24 22:15 Dextrose 50%-Water Inj 50 Ml Syringe IV 06/09/24 19:29 25 ml Q15MIN PRN Administration BG 50-70 responsive npo pt Dextrose 50 ml 05/10/24 19:30 Dextrose 50%-Water Inj 50 Ml Syringe IV 06/09/24 19:29 Q15MIN PRN BG <50 OR BG <70 & pt unresponsive Glucagon 1 mg 05/10/24 19:30 Glucagon Inj 1 Mg Vial IM Q15MIN PRN BG <70, and no IV access Hydralazine HCl 10 mg 05/10/24 19:11 05/12/24 11:54 Hydralazine Inj 20 Mg/Ml Vial IV 06/09/24 19:10 10 mg Q6H PRN Administration High blood pressure Hydromorphone HCl 0.5 mg 05/19/24 20:38 Hydromorphone Inj 2 Mg/Ml Vial IVP 05/24/24 20:37 Q4HR PRN Pain 4-10 Cefepime HCl 2 gm/ Sodium 50 mls @ 100 mls/hr 05/19/24 12:00 05/19/24 12:04 Chloride IV 05/26/24 11:59 100 mls/hr QDAY RINA Administration Insulin Glargine 80 unit 05/15/24 21:00 05/19/24 20:48 Insulin Glargine (Lantus) 5 Unit/0.05 Ml (Per 5 Units) SC 06/14/24 20:59 Not Given HS [facility] Insulin Human Lispro 12 unit 05/15/24 11:30 05/19/24 16:55 Insulin Lispro (Admelog) 1 Unit/0.01 Ml Unit SC 06/14/24 11:29 12 unit AC RINA Administration Insulin Human Lispro 0 unit 05/16/24 23:00 05/19/24 20:45 Insulin Lispro (Admelog) 1 Unit/0.01 Ml Unit SC 06/15/24 22:59 4 unit ACHS RINA Administration Protocol Losartan Potassium 100 mg 05/17/24 14:00 05/19/24 09:25 Losartan Potassium 25 Mg Tablet PO 06/16/24 13:59 100 mg DAILY RINA Administration Metolazone 10 mg 05/16/24 12:30 05/19/24 20:40 Metolazone 2.5 Mg Tablet PO 06/15/24 12:29 10 mg BID RINA Administration Metoprolol Succinate 100 mg 05/10/24 19:00 05/19/24 09:25 Metoprolol Succinate Xl 25 Mg Tabcr PO 06/09/24 18:59 100 mg QDAY RINA Administration Metronidazole 500 mg 05/19/24 14:00 05/19/24 13:42 Metronidazole 250 Mg Tablet PO 05/26/24 13:59 500 mg TID RINA Administration Ondansetron HCl 4 mg 05/10/24 17:38 Ondansetron Inj 2 Mg/Ml Inj 2 Ml IV 06/09/24 17:37 Q6H PRN NAUSEA OR VOMITING Protocol Pharmacy Consult 1 each 05/19/24 11:45 Vancomycin Pharmacy To Dose 1 Each Each IV 06/18/24 11:44 QDAY PRN CONSULT Pregabalin 150 mg 05/18/24 14:00 05/19/24 13:42 Pregabalin 75 Mg Capsule PO 06/17/24 05:59 150 mg TID RINA Administration Simethicone 80 mg 05/18/24 21:45 05/18/24 21:52 Simethicone 80 Mg Chew PO 06/17/24 21:44 80 mg QID PRN Administration GAS Plan 54-year-old male with past medical history of insulin-dependent diabetes mellitus, CAD, HFpEF, CVA with b/l endarterectomy, pulmonary embolism on Eliquis, hypertension, obstructive sleep apnea, hypertension, OHS/CAROLYN, cirrhosis, recent hospital admission 2 weeks ago for CHF exacerbation and left groin abscess presented to the ED after family found patient on the floor. Initially per ED he presented with altered mental status. However was able to regain consciousness after some time while on BiPAP. Patient being admitted for AHRF 2/2 sepsis 2/2 cellulitis. #Acute on chronic CHF Exacerbation #History HFpEF Most recent echo from 04/24/2024 shows EF 55-60%. At home patient takes bumetanide 1 mg p.o. twice daily and spironolactone 50 mg p.o. twice daily. BNP elevated Chest x-ray shows mild to moderate CHF Hypervolemic with exam findings showing +2pitting edema; improving Adequate response to diuresis; -3.7L over 24 hours; net negative -7.8L Plan: -stop Bumex gtt per nephrology recs -start Bumex 2 mg IV t.i.d. with metolazone 10 mg b.i.d. -Continue losartan 100 mg p.o. daily. -Strict I&Os -Low sodium diet --Keep potassium >4, mag >2 -Daily CBC, CMP #AHRF 2/2 CHF exacerbation vs. sepsis, improving Ddx: He has history of CAROLYN/OHS, with noncompliance of any CPAP machine at home. 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 Presented to ED saturating at 84% on room air. Subsequently started on oxy mask high flow and progressed to BiPAP. Now saturating 97-98% on 10 L. Chest x-ray negative for any acute changes. Revealing moderate CHF. ABG 05/13 shows: pH 7.36, pCO2 40, pO2 75, Hco3 23 Plan: -Treating underlying CHF exacerbation and sepsis, GNR bacteremia Continue BiPAP at bedtime DuoNeb treatment as needed Continuous pulse ox monitoring #Abscess left groin s/p I&D Day 6 #Sepsis 2/2 E coli bacteremia #Leukocytosis Most likely abscess --local pain in left groin, tenderness, warmth, swelling, oozing. SIRS 4/4. Received 1 L bolus normal saline in ED. Pro-Angelo elevated 12, normal lactic acid 0.9 Blood cultures positive for GNR Wound culture positive for GPC [place]-sensitive ecoli grown from cultures Repeat blood cultures no growth 24 hours Plan: Surgery, Dr. Haney, following the patient appreciate recommendations -stop Rocefin -start ancomycin/cefepime/Flagyl. New antibiotics are renally dosed. Acetaminophen as needed for fever On morphine 4 mg every 8 hours and home [place] 10 as needed every 6 hours. Wound care consulted for daily dressing and management of wound VAC #Scrotal swelling Patient complained of scrotal swelling and pain. On physical exam scrotum is enlarged, warm, erythematous. May be due to patient's volume overloaded status with severe water retention/swelling vs epididymitis vs testicular torsion vs cellulitis Scrotal ultrasound does not show any signs of torsion or mass; there is scrotal wall thickening Plan: Dr. Haney examined the patient and does not believe there is any surgical intervention required at this time Will continue to manage pain at this time #Hypertensive emergency, resolved Initial blood pressures at the time of presentation to the ED is 180/102 mmHg. Patient was given a dose of hydralazine 10 Mg and nitroglycerin topical patch. Despite those, blood pressures are still elevated so patient was started on nicardipine drip 5 Mg per hour Plan: Started patient on losartan 100 mg, home medication Hydralazine 10mg IV q6hr PRN On home medication metoprolol succinate 100 p.o. daily Continue Amlodipine 5 mg p.o. daily Continue monitoring blood pressure #Troponinemia 2/2 demand ischemia, resolved Most likely NSTEMI II related to underlying sepsis vs NSTEMI 1 as patient does have history of CAD. Troponins are downtrending from 0.103 to 0.095. EKG shows no acute ischemic changes. Plan: Continue monitoring for any changes in symptoms #ZENY, improving Ddx: Prerenal ZENY due to hypoperfusion in setting of sepsis vs cardiorenal syndrome vs nephrotoxic agents Creatinine 1.8 Plan: Nephrology (Dr South) consulted; appreciate recommendations Fluid restriction 1.5 L Avoid nephrotoxic agents Daily CMP -restart losartan 100 mg PO due to proteinuria #History of CAROLYN/OHS Unsure at this time patient is compliant with any CPAP machine at home. not compliant with use apparently Plan: Continue BiPAP at night; patient apparently refusing #Poorly controlled Insulin-dependent type 2 diabetes On admission initial glucose 461. Last A1c 11.7 in October 2023. Patient takes Ozempic, 50 units insulin glargine, aspart sliding scale for diabetes at home. A1c >14 Plan: Held home medications Bedside blood glucose checks ACHS Increased to 80 units glargine Lispro increased to 12u pre-meals Continue insulin sliding scale Carb consistent low diet Diabetes education #Adrenal nodule 25 mm right adrenal nodule Incidental adrenal nodule noted on CT Plan: Follow-up outpatient with reimaging #History hypertension Continue metoprolol succinate 100 p.o. daily #History cirrhosis Follow-up outpatient #History PE Continue apixaban 5 mg p.o. twice daily #History of CAD Continue atorvastatin 40 mg p.o. at bedtime Health Maintenance: Lines: PIV Diet: Carb consistent GI prophylaxis: Not needed DVT prophylaxis: Eliqui 5 BID Dispo: broadening Abx, worsening leukocytosis. Code: Full Patient seen and examined with attending Dr. Wayne and senior resident Dr. Jairo Keller, PGY-1 Attending Provider Attestation/Addendum I have discussed and was present for the essential components of the history, physical examination, diagnosis, and treatment plan with the resident. I agree with the patient's care as documented by the resident and amended herein by me. Jah Wayne DO. Although this document has been carefully reviewed, there may still be some phonetic and other typographical errors. These errors are purely grammatical due to imperfections in the software program and should not be construed in any way to compromise the substance of the patient's medical care during this visit.
[2024-05-19] MEDS: HYDROmorphone INJ 2 MG/ML VIAL 0.5 MG IVP (22:39)
[2024-05-20] VITALS (15 sets, daily range): BP systolic 111–139; BP diastolic 56–71; PULSE 70–90; RESP 18–96; TEMP 36–36.4; O2SAT 92–96; BMI 45.6
[2024-05-20] MEDS: metroNIDAZOLE 250 MG TABLET 500 MG PO ×3 (05:22→21:37)
[2024-05-20] MEDS: PREGABALIN 75 MG CAPSULE 150 MG PO ×3 (05:22→21:38)
[2024-05-20] MEDS: BUMETANIDE INJ 0.25 MG/ML VIAL 4 ML 2 MG IVP ×3 (05:23→22:02)
[2024-05-20] MEDS: HYDROcodone/APAP 10/325 TAB PO (05:47)
[2024-05-20] MEDS: HYDROmorphone INJ 2 MG/ML VIAL 0.5 MG IVP ×4 (06:32→19:38)
[2024-05-20 06:47] LABS: Alanine Aminotransferase 11 U/L (10-49); Albumin, Serum 2.9 gm/dL (3.5-5.0); Albumin/Globulin Ratio 0.9 (1.2-2.2); Alkaline Phosphatase 160 U/L (46-116); Anion Gap 7 (7-16); Aspartate Amino Transferase 17 U/L (0-34); BUN/Creatinine Ratio 34 Ratio (12-20); Bilirubin,Total < 0.2 mg/dL (0.3-1.2); Blood Urea Nitrogen 62 mg/dL (9-23); Calcium 8.1 mg/dL (8.3-10.6); Carbon Dioxide 34.5 mMol/L (20.0-31.0); Chloride 92 mMol/L (98-107); Creatinine (Component) 1.8 mg/dL (0.6-1.3); Estimated Creatinine Clearance 62.8 mL/min (>60); Globulin 3.1 gm/dL (2.3-3.5); Glucose 256 mg/dL (74-106); Magnesium 1.6 mg/dL (1.6-2.6); Osmolality,Calculated 292 (275-295); Potassium 3.6 mMol/L (3.4-5.1); Sodium 133 mMol/L (136-145); Vancomycin,Random 15.8 mcg/mL; eGFR 44 See Note
[2024-05-20 06:54] LABS: Basophils # (Auto) 0.1 Thou/mm3 (0.0-0.2); Basophils % (Auto) 0 % (0-2.5); Eosinophils # (Auto) 0.2 Thou/mm3 (0.0-0.5); Eosinophils % (Auto) 1 % (0-10); Hematocrit 26.2 % (41.0-53.0); Immature Granulocytes % (Auto) 7 % (0-0); Immature Granulocytes Auto 1.22 Thou/mm3 (0.00-0.00); Lymphocytes # (Auto) 1.5 Thou/mm3 (1.0-4.8); Lymphocytes % (Auto) 8 % (10-50); Mean Corpuscular HGB Conc 30.2 g/dl (31.0-37.0); Mean Corpuscular Hemoglobin 25.5 pg (25.0-35.0); Mean Corpuscular Volume 85 fL (80-100); Monocytes # (Auto) 1.5 Thou/mm3 (0.0-0.8); Monocytes % (Auto) 8 % (0-12); Neutrophils # (Auto) 13.5 Thou/mm3 (1.8-7.7); Neutrophils % (Auto) 75 % (37-80); Nucleated Red Blood Cell % 0 /100 WBC (0); Platelet Count 332 Thou/mm3 (140-440); RDW Standard Deviation 47.4 fL (35.1-43.9); White Blood Count 17.9 Thou/mm3 (3.8-10.6)
[2024-05-20 07:06] LABS: Hemoglobin 7.9 g/dL (13.5-16.0)
[2024-05-20] MEDS: INSULIN LISPRO (AdmeLOG) 1 UNIT/0.01 ML UNIT 12 UNIT SC ×3 (07:53→16:57)
[2024-05-20] MEDS: INSULIN LISPRO (AdmeLOG) 1 UNIT/0.01 ML UNIT SC ×4 (07:55→22:00)
[2024-05-20] MEDS: LOSARTAN POTASSIUM 25 MG TABLET 100 MG PO (08:24)
[2024-05-20] MEDS: metOLazone 2.5 MG TABLET 10 MG PO ×2 (08:25→22:05)
[2024-05-20] MEDS: METOPROLOL SUCCINATE XL 25 MG TABCR 100 MG PO (08:25)
[2024-05-20] MEDS: APIXABAN 2.5 MG TABLET 5 MG PO ×2 (08:26→21:37)
[2024-05-20] MEDS: amLODIPine BESYLATE 5 MG TABLET PO (08:27)
[2024-05-20] MEDS: CEFEPIME INJ 2 GM in SODIUM CHLORIDE 0.9% (P) 50 ML IV (08:27)
[2024-05-20] MEDS: POTASSIUM CHLORIDE 20 mEq TABCR 40 MEQ PO (09:23)
--- NOTE | 2024-05-20 10:15 | PC.NURSE ---
Pt. has a wound to the coccyx and pt. been scartching on it. Reinforce the teaching not to scratch the area. Pt. refusing any dressing to apply at the moment.
--- NOTE | 2024-05-20 13:28 | PC.NURSE ---
verified the new order for acetazolamide with Dr. Keller.
[2024-05-20] MEDS: ACETAzolaMIDE SOD 500 MG in SODIUM CHLORIDE 0.9% (P) 50 ML 100 MG IV (14:06)
--- NOTE | 2024-05-20 14:21 | PD.RESPRO ---
Documentation for date of: 05/20/24 Subjective Subjective Interval history: Patient was seen and examined at bedside. Status post left I&D day 8. Wound VAC in place. Overnight, morphine or had fell off and night team started patient on Dilaudid 0.5 mg IV. Will continue with that. Patient states that pain is better today. Antibiotics were broadened to Vanco/cefepime/Flagyl yesterday WBC showing improvement since then downtrending to 18. ZENY improving--creatinine stable 1.8. Lower extremity edema is improving. +2 pitting edema in feet. Dr South recommendations, continue Bumex 2 mg IV t.i.d. with metolazone 10 mg b.i.d. Continue losartan 100 mg p.o. daily. Bicarb started to uptrend therefore gave IV acetazolamide [address] Haney, wound is healing adequately and scrotal swelling is improving. Anticipate discharge tomorrow if WBC continues to improve. Review of systems otherwise negative except what is mentioned above. Exam Vital Signs Temp Pulse Resp BP Pulse Ox O2 Del Method O2 Flow Rate 97.6 F 71 20 139/61 H 96 Room Air 1 05/20/24 12:00 05/20/24 14:07 05/20/24 12:00 05/20/24 14:07 05/20/24 12:00 05/20/24 12:00 05/18/24 16:00 FiO2 35 05/20/24 12:00 Narrative Exam General: awake, morbid obese, answers questions appropriately, appears stated age HEENT: Normocephalic, atraumatic, PERRLA, EOMI Heart: Regular rate and rhythm, no murmurs. Lungs: decreased breath sounds noted bilaterally in view of body habitus Abdomen/: Soft, obese and nontender on all four quadrants. Severe tenderness noted in the left groin and thigh area, s/p I&D with wound vac Extremities: Bilateral pitting 3+ pedal edema Skin: No rash. Ecchymotic patch is noted on the abdomen right to the umbilicus. 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 Objective Labs 05/24/24 05:44 05/24/24 05:44 Labs: Laboratory Results - last 24 hr 05/20/24 05:20 WBC 17.9 H D RBC 3.10 L Hgb 7.9 L Hct 26.2 L MCV 85 MCH 25.5 MCHC 30.2 L RDW Std Deviation 47.4 H Plt Count 332 Neut % (Auto) 75 Lymph % (Auto) 8 L [place] % (Auto) 8 Eos % (Auto) 1 Baso % (Auto) 0 Neut # (Auto) 13.5 H Lymph # (Auto) 1.5 [place] # (Auto) 1.5 H Eos # (Auto) 0.2 Baso # (Auto) 0.1 Immature Gran # (Auto) 1.22 H Absolute Nucleated RBC 0.00 Immature Gran % 7 H Nucleated RBC % 0 Sodium 133 L Potassium 3.6 Chloride 92 L Carbon Dioxide 34.5 H Anion Gap 7 BUN 62 H Creatinine 1.8 H Estim Creat Clear Calc 62.8 eGFR 44 L BUN/Creatinine Ratio 34 H Glucose 256 H D Calculated Osmolality 292 Calcium 8.1 L Corrected Calcium 9.0 Magnesium 1.6 Total Bilirubin < 0.2 L AST 17 ALT 11 Alkaline Phosphatase 160 H D Total Protein 6.0 Albumin 2.9 L Globulin 3.1 Albumin/Globulin Ratio 0.9 L Random Vancomycin 15.8 ABG Interpretation ABG results: 05/10/24 05/13/24 12:26 11:23 ABG pH 7.34 L 7.36 ABG pCO2 43 40 ABG pO2 127 H 75 L D ABG HCO3 23 23 ABG O2 Saturation 100 H 94 ABG Base Excess -2 -3 Quality Measures Quality Measures sepsis Current suspected stage: sepsis Possible source: unknown Blood cultures ordered: completed in ED Antibiotic ordered: Yes Assessment & Plan Assessment Current Active Medications: Generic Name Dose Route Start Last Admin Trade Name Freq PRN Reason Stop Dose Admin Acetaminophen 650 mg 05/11/24 11:28 05/19/24 18:59 Acetaminophen 325 Mg Tablet PO 06/09/24 17:37 650 mg Q6H PRN Administration Fever >100.3 or pain(1-3) Hydrocodone Bitart/Acetaminophen 1 tab 05/19/24 20:40 05/20/24 05:47 Hydrocodone/Apap 10/325 Tab PO 05/24/24 20:39 1 tab Q6HR PRN Administration Breakthrough Pain Amlodipine Besylate 5 mg 05/20/24 09:00 05/20/24 08:27 Amlodipine Besylate 5 Mg Tablet PO 12/30/24 08:59 5 mg QDAY RINA Administration Apixaban 5 mg 05/11/24 14:00 05/20/24 08:26 Apixaban 2.5 Mg Tablet PO 06/01/24 13:59 5 mg BID RINA Administration Atorvastatin Calcium 40 mg 05/12/24 21:00 05/19/24 20:40 Atorvastatin Calcium 20 Mg Tablet PO 06/11/24 20:59 40 mg HS RINA Administration Bumetanide 2 mg 05/19/24 14:00 05/20/24 14:07 Bumetanide Inj 0.25 Mg/Ml Vial 4 Ml IVP 06/18/24 13:59 2 mg Q8HR RINA Administration Dextrose 25 ml 05/10/24 19:30 05/15/24 22:15 Dextrose 50%-Water Inj 50 Ml Syringe IV 06/09/24 19:29 25 ml Q15MIN PRN Administration BG 50-70 responsive npo pt Dextrose 50 ml 05/10/24 19:30 Dextrose 50%-Water Inj 50 Ml Syringe IV 06/09/24 19:29 Q15MIN PRN BG <50 OR BG <70 & pt unresponsive Glucagon 1 mg 05/10/24 19:30 Glucagon Inj 1 Mg Vial IM Q15MIN PRN BG <70, and no IV access Hydralazine HCl 10 mg 05/10/24 19:11 05/12/24 11:54 Hydralazine Inj 20 Mg/Ml Vial IV 06/09/24 19:10 10 mg Q6H PRN Administration High blood pressure Hydromorphone HCl 0.5 mg 05/19/24 20:38 05/20/24 10:47 Hydromorphone Inj 2 Mg/Ml Vial IVP 05/24/24 20:37 0.5 mg Q4HR PRN Administration Pain 4-10 Cefepime HCl 2 gm/ Sodium 50 mls @ 100 mls/hr 05/19/24 12:00 05/20/24 08:27 Chloride IV 05/26/24 11:59 100 mls/hr QDAY RINA Administration Insulin Glargine 80 unit 05/15/24 21:00 05/19/24 20:48 Insulin Glargine (Lantus) 5 Unit/0.05 Ml (Per 5 Units) SC 06/14/24 20:59 Not Given HS RINA Insulin Human Lispro 12 unit 05/15/24 11:30 05/20/24 12:18 Insulin Lispro (Admelog) 1 Unit/0.01 Ml Unit SC 06/14/24 11:29 12 unit AC RINA Administration Insulin Human Lispro 0 unit 05/16/24 23:00 05/20/24 12:18 Insulin Lispro (Admelog) 1 Unit/0.01 Ml Unit SC 06/15/24 22:59 8 unit ACHS RINA Administration Protocol Losartan Potassium 100 mg 05/17/24 14:00 05/20/24 08:24 Losartan Potassium 25 Mg Tablet PO 06/16/24 13:59 100 mg DAILY RINA Administration Metolazone 10 mg 05/16/24 12:30 05/20/24 08:25 Metolazone 2.5 Mg Tablet PO 06/15/24 12:29 10 mg BID RINA Administration Metoprolol Succinate 100 mg 05/10/24 19:00 05/20/24 08:25 Metoprolol Succinate Xl 25 Mg Tabcr PO 06/09/24 18:59 100 mg QDAY RINA Administration Metronidazole 500 mg 05/19/24 14:00 05/20/24 14:08 Metronidazole 250 Mg Tablet PO 05/26/24 13:59 500 mg TID RINA Administration Ondansetron HCl 4 mg 05/10/24 17:38 Ondansetron Inj 2 Mg/Ml Inj 2 Ml IV 06/09/24 17:37 Q6H PRN NAUSEA OR VOMITING Protocol Pharmacy Consult 1 each 05/19/24 11:45 Vancomycin Pharmacy To Dose 1 Each Each IV 06/18/24 11:44 QDAY PRN CONSULT Pregabalin 150 mg 05/18/24 14:00 05/20/24 14:08 Pregabalin 75 Mg Capsule PO 06/17/24 05:59 150 mg TID RINA Administration Simethicone 80 mg 05/18/24 21:45 05/18/24 21:52 Simethicone 80 Mg Chew PO 06/17/24 21:44 80 mg QID PRN Administration GAS Plan 54-year-old male with past medical history of insulin-dependent diabetes mellitus, CAD, HFpEF, CVA with b/l endarterectomy, pulmonary embolism on Eliquis, hypertension, obstructive sleep apnea, hypertension, OHS/CAROLYN, cirrhosis, recent hospital admission 2 weeks ago for CHF exacerbation and left groin abscess presented to the ED after family found patient on the floor. Initially per ED he presented with altered mental status. However was able to regain consciousness after some time while on BiPAP. Patient being admitted for AHRF 2/2 sepsis 2/2 cellulitis. #Acute on chronic CHF Exacerbation #History HFpEF Most recent echo from 04/24/2024 shows EF 55-60%. At home patient takes bumetanide 1 mg p.o. twice daily and spironolactone 50 mg p.o. twice daily. BNP elevated Chest x-ray shows mild to moderate CHF Hypervolemic with exam findings showing +2pitting edema; improving Adequate response to diuresis; -3.7L over 24 hours; net negative -7.8L Plan: -Continue Bumex 2 mg IV t.i.d. with metolazone 10 mg b.i.d. -Continue losartan 100 mg p.o. daily. -X 1 dose of IV acetazolamide 500 to prevent worsening alkalosis -Strict I&Os -Low sodium diet --Keep potassium >4, mag >2 -Daily CBC, CMP #AHRF 2/2 CHF exacerbation vs. sepsis, improving Ddx: He has history of CAROLYN/OHS, with noncompliance of any CPAP machine at home. 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 Presented to ED saturating at 84% on room air. Subsequently started on oxy mask high flow and progressed to BiPAP. Now saturating 97-98% on 10 L. Chest x-ray negative for any acute changes. Revealing moderate CHF. ABG 05/13 shows: pH 7.36, pCO2 40, pO2 75, Hco3 23 Plan: -Treating underlying CHF exacerbation and sepsis, GNR bacteremia Continue BiPAP at bedtime DuoNeb treatment as needed Continuous pulse ox monitoring #Abscess left groin s/p I&D Day 7 #Sepsis 2/2 E coli bacteremia #Leukocytosis-improving Most likely abscess --local pain in left groin, tenderness, warmth, swelling, oozing. SIRS 4/4. Received 1 L bolus normal saline in ED. Pro-Angelo elevated 12, normal lactic acid 0.9 Blood cultures positive for GNR Wound culture positive for GPC Pruett-sensitive ecoli grown from cultures Repeat blood cultures no growth 24 hours Plan: Surgery, Dr. Haney, following the patient appreciate recommendations -Continue vancomycin/cefepime/Flagyl. New antibiotics are renally dosed. -Acetaminophen as needed for fever -0.5 Dilaudid every 4 hours as needed for pain -Wound care consulted for daily dressing and management of wound VAC #Scrotal swelling Patient complained of scrotal swelling and pain. On physical exam scrotum is enlarged, warm, erythematous. May be due to patient's volume overloaded status with severe water retention/swelling vs epididymitis vs testicular torsion vs cellulitis Scrotal ultrasound does not show any signs of torsion or mass; there is scrotal wall thickening Plan: Dr. Haney examined the patient and does not believe there is any surgical intervention required at this time Will continue to manage pain at this time #Hypertensive emergency, resolved Initial blood pressures at the time of presentation to the ED is 180/102 mmHg. Patient was given a dose of hydralazine 10 Mg and nitroglycerin topical patch. Despite those, blood pressures are still elevated so patient was started on nicardipine drip 5 Mg per hour Plan: Started patient on losartan 100 mg, home medication Hydralazine 10mg IV q6hr PRN On home medication metoprolol succinate 100 p.o. daily Continue Amlodipine 5 mg p.o. daily Continue monitoring blood pressure #Troponinemia 2/2 demand ischemia, resolved Most likely NSTEMI II related to underlying sepsis vs NSTEMI 1 as patient does have history of CAD. Troponins are downtrending from 0.103 to 0.095. EKG shows no acute ischemic changes. Plan: Continue monitoring for any changes in symptoms #ZENY, improving Ddx: Prerenal ZENY due to hypoperfusion in setting of sepsis vs cardiorenal syndrome vs nephrotoxic agents Creatinine 1.8 Plan: Nephrology (Dr South) consulted; appreciate recommendations Fluid restriction 1.5 L Avoid nephrotoxic agents Daily CMP -restart losartan 100 mg PO due to proteinuria #History of CAROLYN/OHS Unsure at this time patient is compliant with any CPAP machine at home. not compliant with use apparently Plan: Continue BiPAP at night; patient apparently refusing #Poorly controlled Insulin-dependent type 2 diabetes On admission initial glucose 461. Last A1c 11.7 in October 2023. Patient takes Ozempic, 50 units insulin glargine, aspart sliding scale for diabetes at home. A1c >14 Plan: Held home medications Bedside blood glucose checks ACHS Increased to 80 units glargine Lispro increased to 12u pre-meals Continue insulin sliding scale Carb consistent low diet Diabetes education #Adrenal nodule 25 mm right adrenal nodule Incidental adrenal nodule noted on CT Plan: Follow-up outpatient with reimaging #History hypertension Continue metoprolol succinate 100 p.o. daily #History cirrhosis Follow-up outpatient #History PE Continue apixaban 5 mg p.o. twice daily #History of CAD Continue atorvastatin 40 mg p.o. at bedtime Health Maintenance: Lines: PIV Diet: Carb consistent GI prophylaxis: Not needed DVT prophylaxis: Eliqui 5 BID Dispo: d/c tomorrow is WBC continue to improve Code: Full Patient seen and examined with attending Dr. Wayne and senior resident Dr. Jairo Keller, PGY-1 Attending Provider Attestation/Addendum I have discussed and was present for the essential components of the history, physical examination, diagnosis, and treatment plan with the resident. I agree with the patient's care as documented by the resident and amended herein by me. Jah Wayne DO. Although this document has been carefully reviewed, there may still be some phonetic and other typographical errors. These errors are purely grammatical due to imperfections in the software program and should not be construed in any way to compromise the substance of the patient's medical care during this visit.
--- NOTE | 2024-05-20 14:59 | PC.SS ---
Rounding: Pt receiving diresis, possible DC ready 1-2 days
[2024-05-20] MEDS: ATORVASTATIN CALCIUM 20 MG TABLET 40 MG PO (21:37)
[2024-05-20] MEDS: INSULIN GLARGINE (Lantus) 5 UNIT/0.05 ML (PER 5 UNITS) 80 UNIT SC (21:58)
[2024-05-21] VITALS (14 sets, daily range): BP systolic 108–139; BP diastolic 56–74; PULSE 71–88; RESP 18–19; TEMP 36–36.3; O2SAT 92–97; BMI 45.6
[2024-05-21] MEDS: HYDROmorphone INJ 2 MG/ML VIAL 0.5 MG IVP ×5 (04:59→22:29)
[2024-05-21] MEDS: metroNIDAZOLE 250 MG TABLET 500 MG PO ×3 (05:27→21:20)
[2024-05-21] MEDS: PREGABALIN 75 MG CAPSULE 150 MG PO ×3 (05:28→21:21)
[2024-05-21] MEDS: BUMETANIDE INJ 0.25 MG/ML VIAL 4 ML 2 MG IVP ×2 (05:31→13:42)
[2024-05-21 06:16] LABS: Basophils # (Auto) 0.1 Thou/mm3 (0.0-0.2); Basophils % (Auto) 0 % (0-2.5); Eosinophils # (Auto) 0.2 Thou/mm3 (0.0-0.5); Eosinophils % (Auto) 1 % (0-10); Hematocrit 26.7 % (41.0-53.0); Immature Granulocytes % (Auto) 8 % (0-0); Immature Granulocytes Auto 1.38 Thou/mm3 (0.00-0.00); Lymphocytes # (Auto) 1.7 Thou/mm3 (1.0-4.8); Lymphocytes % (Auto) 10 % (10-50); Mean Corpuscular HGB Conc 30.3 g/dl (31.0-37.0); Mean Corpuscular Hemoglobin 25.6 pg (25.0-35.0); Mean Corpuscular Volume 85 fL (80-100); Monocytes # (Auto) 1.4 Thou/mm3 (0.0-0.8); Monocytes % (Auto) 8 % (0-12); Neutrophils # (Auto) 12.4 Thou/mm3 (1.8-7.7); Neutrophils % (Auto) 72 % (37-80); Nucleated Red Blood Cell % 0 /100 WBC (0); Platelet Count 356 Thou/mm3 (140-440); RDW Standard Deviation 46.4 fL (35.1-43.9); Red Blood Count 3.16 Miln/mm3 (4.50-5.90); White Blood Count 17.1 Thou/mm3 (3.8-10.6)
[2024-05-21 06:20] LABS: Hemoglobin 8.1 g/dL (13.5-16.0)
[2024-05-21 07:34] LABS: Alanine Aminotransferase 9 U/L (10-49); Albumin, Serum 3.1 gm/dL (3.5-5.0); Albumin/Globulin Ratio 0.9 (1.2-2.2); Alkaline Phosphatase 151 U/L (46-116); Anion Gap 7 (7-16); Aspartate Amino Transferase 15 U/L (0-34); BUN/Creatinine Ratio 38 Ratio (12-20); Bilirubin,Total < 0.2 mg/dL (0.3-1.2); Blood Urea Nitrogen 64 mg/dL (9-23); Calcium 8.5 mg/dL (8.3-10.6); Calcium (Corrected) 9.2 mg/dL (8.5-10.1); Carbon Dioxide 33.2 mMol/L (20.0-31.0); Chloride 92 mMol/L (98-107); Creatinine (Component) 1.7 mg/dL (0.6-1.3); Estimated Creatinine Clearance 66.6 mL/min (>60); Globulin 3.4 gm/dL (2.3-3.5); Glucose 181 mg/dL (74-106); Magnesium 1.6 mg/dL (1.6-2.6); Osmolality,Calculated 287 (275-295); Potassium 3.8 mMol/L (3.4-5.1); Sodium 132 mMol/L (136-145); Total Protein 6.5 gm/dL (5.7-8.2); eGFR 47 See Note
[2024-05-21] MEDS: INSULIN LISPRO (AdmeLOG) 1 UNIT/0.01 ML UNIT 12 UNIT SC ×3 (07:39→17:05)
[2024-05-21] MEDS: INSULIN LISPRO (AdmeLOG) 1 UNIT/0.01 ML UNIT SC ×4 (07:39→21:43)
--- NOTE | 2024-05-21 07:45 | PC.NURSE ---
Pt. refusing to put the allevyn on the coccyx and want to leave it open to air and asking to apply the cornstarch instead. Leaving the ALLEVYN OPEN TO AIR PER PT. REQUEST.
--- NOTE | 2024-05-21 08:48 | PC.SS ---
[facility] declined, [facility] accepted. PASRR File exchanged o [facility]. SS updated MIKE.
--- NOTE | 2024-05-21 09:05 | PC.NURSE ---
Dr. HALEY ON BED SIDE ORDERED TO PUT THE AMLODOPINE ON HOLD FOR NOW AND WILL DO.
[2024-05-21] MEDS: APIXABAN 2.5 MG TABLET 5 MG PO ×2 (09:12→21:19)
[2024-05-21] MEDS: LOSARTAN POTASSIUM 25 MG TABLET 100 MG PO (09:18)
[2024-05-21] MEDS: metOLazone 2.5 MG TABLET 10 MG PO ×2 (09:18→21:22)
[2024-05-21] MEDS: CEFEPIME INJ 2 GM in SODIUM CHLORIDE 0.9% (P) 50 ML IV (09:19)
[2024-05-21] MEDS: METOPROLOL SUCCINATE XL 25 MG TABCR 100 MG PO (09:20)
[2024-05-21] MEDS: LEVOFLOXACIN 250 MG TABLET 500 MG PO (10:39)
[2024-05-21] MEDS: CLOTRIMAZOLE CR 1% 30 GM TUBE TOP ×3 (12:38→21:43)
[2024-05-21] MEDS: MOMETASONE FUROATE 0.1% 2 GM TOP ×2 (13:07→22:40)
--- NOTE | 2024-05-21 13:27 | PC.NURSE ---
ok to give dilaudid now
--- NOTE | 2024-05-21 14:53 | ESPR_ITS ---
Documentation for date of: 05/21/24 Subjective Subjective Interval history: Patient was seen and examined at bedside. DAY 9 : S/p Left groin I&D . Wound VAC in place. Pain is controlled with Milfay + Dilaudid 0.5 mg IV Ordered Clotrimazole+mometasone topical ointment for skin rash on the back, buttocks and thighs Continue Bumex 2 mg t.i.d. + metolazone 10 mg b.i.d. Given soft BP , losartan reduced 100 --> 50 mg p.o. daily. Antibiotics narrowed to Levofloxacin + Flagyl today (was on cefepime/vanc/flagyl) WBC downtrending, ZENY improving, wound care ordered Anticipate discharge tomorrow on oral antibiotics Review of systems otherwise negative except what is mentioned above. Exam Vital Signs Temp Pulse Resp BP Pulse Ox O2 Del Method O2 Flow Rate 97.2 F 88 19 139/71 H 93 L Room Air 1 05/21/24 11:56 05/21/24 13:42 05/21/24 11:56 05/21/24 13:42 05/21/24 11:56 05/21/24 11:56 05/18/24 16:00 FiO2 35 05/20/24 12:00 Narrative Exam Constitutional Alert, oriented x3. Morbidly obese HEENT Vision grossly intact. Patent nares. Trachea midline. Respiratory Chest normal on inspection and clear to auscultation bilaterally. Cardiovascular S1 and S2 audible, RRR. No murmurs or carotid bruit. No gross JVD. Abdominal Soft and non tender to palpation in all quadrants. BS + Genitourinary No bladder tenderness, no flank pain. Mild scrotal swelling Musculoskeletal Extremities tone within normal limits. 1+ LE edema. Neurological CN II - XII grossly intact. Extremity motor and sensation grossly intact. Skin Warm, dry and intact. Macular, erythematous rash on lower back, buttocks and extending to mid thighs. Psychiatric Patient has a good affect, is cooperative. Objective Labs 05/22/24 05:28 05/22/24 05:28 Labs: Laboratory Results - last 24 hr 05/21/24 05:58 WBC 17.1 H RBC 3.16 L Hgb 8.1 L Hct 26.7 L MCV 85 MCH 25.6 MCHC 30.3 L RDW Std Deviation 46.4 H Plt Count 356 Neut % (Auto) 72 Lymph % (Auto) 10 [place] % (Auto) 8 Eos % (Auto) 1 Baso % (Auto) 0 Neut # (Auto) 12.4 H Lymph # (Auto) 1.7 [place] # (Auto) 1.4 H Eos # (Auto) 0.2 Baso # (Auto) 0.1 Immature Gran # (Auto) 1.38 H Absolute Nucleated RBC 0.00 Immature Gran % 8 H Nucleated RBC % 0 Sodium 132 L Potassium 3.8 Chloride 92 L Carbon Dioxide 33.2 H Anion Gap 7 BUN 64 H Creatinine 1.7 H Estim Creat Clear Calc 66.6 eGFR 47 L BUN/Creatinine Ratio 38 H Glucose 181 H D Calculated Osmolality 287 Calcium 8.5 Corrected Calcium 9.2 Magnesium 1.6 Total Bilirubin < 0.2 L AST 15 ALT 9 L Alkaline Phosphatase 151 H Total Protein 6.5 Albumin 3.1 L Globulin 3.4 Albumin/Globulin Ratio 0.9 L Random Vancomycin 12.0 ABG Interpretation ABG results: 05/10/24 05/13/24 12:26 11:23 ABG pH 7.34 L 7.36 ABG pCO2 43 40 ABG pO2 127 H 75 L D ABG HCO3 23 23 ABG O2 Saturation 100 H 94 ABG Base Excess -2 -3 Quality Measures Quality Measures sepsis Current suspected stage: sepsis Possible source: unknown Blood cultures ordered: completed in ED Antibiotic ordered: Yes Assessment & Plan Assessment Current Active Medications: Generic Name Dose Route Start Last Admin Trade Name Freq PRN Reason Stop Dose Admin Acetaminophen 650 mg 05/11/24 11:28 05/19/24 18:59 Acetaminophen 325 Mg Tablet PO 06/09/24 17:37 650 mg Q6H PRN Administration Fever >100.3 or pain(1-3) Hydrocodone Bitart/Acetaminophen 1 tab 05/21/24 10:06 Hydrocodone/Apap 10/325 Tab PO 05/24/24 20:39 Q6HR PRN 4-10 Protocol Amlodipine Besylate 5 mg 05/21/24 21:00 Amlodipine Besylate 5 Mg Tablet PO 06/20/24 20:59 HS RINA Apixaban 5 mg 05/11/24 14:00 05/21/24 09:12 Apixaban 2.5 Mg Tablet PO 06/01/24 13:59 5 mg BID RINA Administration Atorvastatin Calcium 40 mg 05/12/24 21:00 05/20/24 21:37 Atorvastatin Calcium 20 Mg Tablet PO 06/11/24 20:59 40 mg HS RINA Administration Bumetanide 2 mg 05/19/24 14:00 05/21/24 13:42 Bumetanide Inj 0.25 Mg/Ml Vial 4 Ml IVP 06/18/24 13:59 2 mg Q8HR RINA Administration Clotrimazole 2 gm 05/21/24 12:00 05/21/24 12:38 Clotrimazole Cr 1% 30 Gm Tube TOP 06/20/24 11:59 2 gram QID RINA Administration Dextrose 25 ml 05/10/24 19:30 05/15/24 22:15 Dextrose 50%-Water Inj 50 Ml Syringe IV 06/09/24 19:29 25 ml Q15MIN PRN Administration BG 50-70 responsive npo pt Dextrose 50 ml 05/10/24 19:30 Dextrose 50%-Water Inj 50 Ml Syringe IV 06/09/24 19:29 Q15MIN PRN BG <50 OR BG <70 & pt unresponsive Glucagon 1 mg 05/10/24 19:30 Glucagon Inj 1 Mg Vial IM Q15MIN PRN BG <70, and no IV access Hydralazine HCl 10 mg 05/10/24 19:11 05/12/24 11:54 Hydralazine Inj 20 Mg/Ml Vial IV 06/09/24 19:10 10 mg Q6H PRN Administration High blood pressure Hydromorphone HCl 0.5 mg 05/21/24 10:06 05/21/24 13:39 Hydromorphone Inj 2 Mg/Ml Vial IVP 05/24/24 20:37 0.5 mg Q4HR PRN Administration BREAKTHROUGH PAIN Protocol Insulin Glargine 80 unit 05/15/24 21:00 05/20/24 21:58 Insulin Glargine (Lantus) 5 Unit/0.05 Ml (Per 5 Units) SC 06/14/24 20:59 80 unit HS RINA Administration Insulin Human Lispro 12 unit 05/15/24 11:30 05/21/24 11:57 Insulin Lispro (Admelog) 1 Unit/0.01 Ml Unit SC 06/14/24 11:29 12 unit AC RINA Administration Insulin Human Lispro 0 unit 05/16/24 23:00 05/21/24 11:58 Insulin Lispro (Admelog) 1 Unit/0.01 Ml Unit SC 06/15/24 22:59 8 unit ACHS RINA Administration Protocol Levofloxacin 500 mg 05/21/24 10:15 05/21/24 10:39 Levofloxacin 250 Mg Tablet PO 05/28/24 10:14 500 mg QDAY RINA Administration Losartan Potassium 50 mg 05/22/24 09:00 Losartan Potassium 25 Mg Tablet PO 06/21/24 08:59 DAILY RINA Metolazone 10 mg 05/16/24 12:30 05/21/24 09:18 Metolazone 2.5 Mg Tablet PO 06/15/24 12:29 10 mg BID RINA Administration Metoprolol Succinate 100 mg 05/10/24 19:00 05/21/24 09:20 Metoprolol Succinate Xl 25 Mg Tabcr PO 06/09/24 18:59 100 mg QDAY RINA Administration Metronidazole 500 mg 05/19/24 14:00 05/21/24 13:42 Metronidazole 250 Mg Tablet PO 05/26/24 13:59 500 mg TID RINA Administration Mometasone Furoate 2 gm 05/21/24 14:00 05/21/24 13:07 Mometasone Furoate Cr 0.1% 15 Gm Tube TOP 06/20/24 13:59 1 appln TID RINA Administration Ondansetron HCl 4 mg 05/10/24 17:38 Ondansetron Inj 2 Mg/Ml Inj 2 Ml IV 06/09/24 17:37 Q6H PRN NAUSEA OR VOMITING Protocol Pregabalin 150 mg 05/18/24 14:00 05/21/24 13:42 Pregabalin 75 Mg Capsule PO 06/17/24 05:59 150 mg TID RINA Administration Simethicone 80 mg 05/18/24 21:45 05/18/24 21:52 Simethicone 80 Mg Chew PO 06/17/24 21:44 80 mg QID PRN Administration GAS Plan Mr. Fisher is a 54-year-old male with past medical history of insulin- dependent diabetes mellitus, CAD, HFpEF, CVA with b/l endarterectomy, pulmonary embolism on Eliquis, hypertension, obstructive sleep apnea, hypertension, OHS/CAROLYN, cirrhosis, recent hospital admission 2 weeks ago for CHF exacerbation and left groin abscess presented to the ED after family found patient on the floor. Initially per ED he presented with altered mental status. However was able to regain consciousness after some time while on BiPAP. Patient being admitted for AHRF 2/2 sepsis 2/2 cellulitis. 1. Sepsis - resolved Secondary to 2. E.coli bacteremia 3. Abscess LT groin s/p I&D : Day 9 4. Scrotal swelling, benign - Blood cultures positive for GNR, Pruett-sensitive ecoli - Wound culture positive for GPC - SIRS 4/4. Received 1 L bolus normal saline in ED. Pro-Angelo elevated 12, normal lactic acid 0.9 - Scrotal exam : scrotum is enlarged, warm, erythematous. May be due to patient's volume overloaded status with severe water retention/swelling vs epididymitis vs testicular torsion vs cellulitis - Scrotal ultrasound does not show any signs of torsion or mass; there is scrotal wall thickening Plan: - Surgery, Dr. Haney, following the patient appreciate recommendations. No need for any surgical intervention required at this time for scrotal swelling, likely due to fluid overload status. - Acetaminophen as needed for fever - Antibiotics narrowed to Levofloxacin + Flagyl today (was on cefepime/vanc/flagyl) - WBC downtrending, ZENY improving. - 0.5 Dilaudid every 4 hours as needed for pain - Wound care consulted for daily dressing and management of wound VAC 5. Acutely decompensated systolic heart failure, HFpEF 6. History of CAROLYN/OHS 7. Morbid obesity 8. ZENY Presented to ED saturating at 84% on room air. At home patient takes bumetanide 1 mg p.o. twice daily + spironolactone 50 mg p.o. twice daily. Noncompliant with CPAP machine at home. - ECHO from 04/24/2024 shows LVEF 55-60%. - Prerenal ZENY due to hypoperfusion in setting of sepsis vs cardiorenal syndrome vs nephrotoxic agents - BNP elevated - Chest x-ray : mild to moderate CHF - Hypervolemic with exam findings showing +2 pitting edema --> improving on diuretic - Adequate response to diuresis; Intake 2100 mL, Output 1750 mL, Balance -350 mL Plan: - On Bumex 2 mg PO TID - On Metolazone 10 mg PO BID - Fluid restriction 1500cc - Strict I&Os - Low sodium diet - Keep potassium >4, mag >2 - Continue BiPAP at bedtime - DuoNeb treatment as needed 9. Hypertensive emergency - resolved 10. Primary HTN - Initial blood pressures at the time of presentation to the ED is 180/102 mmHg. He was started on nicardipine drip 5 mg/h, now discontinued - SBP 100-120 mmHg Plan: - Nephrology (Dr South) consulted; appreciate recommendations - Continue Losartan 50 mg p.o. daily. - Likely better controlled in the setting of diuretic use 11. Troponinemia 2/2 demand ischemia, resolved Most likely NSTEMI II related to underlying sepsis vs NSTEMI 1 as patient does have history of CAD. Troponins downtrended from 0.103 --> 0.095 EKG : no acute ischemic changes. Plan: Continue close monitoring for now 12. T2 Insulin-dependent diabetes, poorly controlled - On admission initial glucose 461. - HbA1c : 11.7 in 10/2023 --> 13.6 in 04/2024 - Patient takes Ozempic, 50 units glargine, aspart sliding scale for diabetes at home. Plan: - Held home medications - Bedside blood glucose checks ACHS - Glargine 80 units HS - Lispro 12 units ACWM - Continue insulin sliding scale - Carb consistent low diet - Diabetes education 13. Adrenal nodule - 25 mm right adrenal nodule - Incidental adrenal nodule noted on CT Plan: Follow-up outpatient with re-imaging 14. Primary hypertension 15. History of CAD 16. History PE - Continue apixaban 5 mg p.o. twice daily - Continue atorvastatin 40 mg p.o. at bedtime - Continue metoprolol XL 100 p.o. daily Health Maintenance: Dispo: DC tomorrow to [facility], on oral antibiotic regimen Lines: PIV Diet: Carb consistent GI prophylaxis: Not needed DVT prophylaxis: Eliquis 5mg BID Code: Full code Plan of care discussed with attending Dr Askew, Jay Christiansen MD , PGY 2 Attending Provider Attestation/Addendum Dianna Camara DO, attest that I was physically present for the kirkpatrick portions of the service and evaluated the patient with the resident and I reviewed and discussed the case with the resident and agree with the resident's findings and plans of care as documented above Patient seen and evaluated this AM. He states he has been in a lot of pain and really wants his pressure ulcer to heal. Explained to patient that it will take time and will need to get up with physical therapy as well so that he is less sedentary. Patient states that the pain is his only barrier. He states that dilaudid has been helping. He does not want to take norco since he takes that at home and states that does not help. Encouraged patient to interchange between the two medications for pain relief and slowly be weaned to his home medication. Patient states he feels ready to get up today. However, PT is not in-house today. Antibiotics were narrowed and MRSA is negative. Will discontinue vancomycin. Switched to levaquin and flagyl. Will switch IV diuresis to PO bumex. Wound vac continues to drain pink purulent fluid.
[2024-05-21] MEDS: HYDROcodone/APAP 10/325 TAB PO ×2 (15:25→21:17)
--- NOTE | 2024-05-21 15:26 | PC.NURSE ---
Family brought the taco sarmiento and soda from outside, since pt. is diabetic and on fluid restriction, reinforce the teaching and pt. verbalize understanding and pt. request to move the soda away.
--- NOTE | 2024-05-21 16:21 | PC.SS ---
Rounding: pending wound care, pt now on oral abx
--- NOTE | 2024-05-21 18:05 | PC.NURSE ---
family brought the fried food from outside, reinforce the teaching for the diabetes mgt. Pt. verbalize understanding.
--- NOTE | 2024-05-21 20:17 | PD.NEPHPROG ---
Documentation for date of: 05/21/24 Subjective Subjective Interval history: Mr. Fisher is a 54-year-old male with coronary artery disease, congestive heart failure, morbid obesity, suspected obstructive sleep apnea, obesity hypoventilation, CVA with bilateral endarterectomy, PE, on Eliquis, hypertension, cirrhosis, who presented to the emergency room on 05/10/2024 with weakness and confusion. The patient was also found extremely volume overloaded and was started on Bumex at 2 mg per hour. The patient continues to have good urine output and marked improvement in anasarca and he is currently on IV Bumex and metolazone. He is feeling much stronger today. Denies any chest pain, shortness of breath. He has a wound VAC in the left groin and is causing his pain. Requesting pain medications [id number]. Also noted to have decubitus ulcer stage II on the buttock. Labs, medications have been reviewed. Review of Systems Review of Systems Narrative Review of Systems: CONSTITUTIONAL: Patient denies any fever, chills. Lost weight HEENT: Denies any visual disturbances or hearing problems. CARDIOVASCULAR: Patient denies any chest pain, shortness of breath. swelling in the lower extremities- Markedly improved PULMONARY: Patient denies any shortness of breath, cough. GASTROINTESTINAL: Patient denies any abdominal pain, constipation, nausea, vomiting, diarrhea. GENITOURINARY: Patient denies any urinary symptoms of burning or frequency or hematuria, denies any form in the urine. SKIN: Patient has wound VAC in the left groin. MUSCULOSKELETAL: Complaining of back pain NEUROLOGICAL: Does have lower extremity weakness Exam Vital Signs Temp Pulse Resp BP Pulse Ox O2 Del Method O2 Flow Rate 36.2 C 82 19 116/56 L 93 L Room Air 1 05/21/24 15:29 05/21/24 15:29 05/21/24 15:29 05/21/24 15:29 05/21/24 15:29 05/21/24 15:29 05/18/24 16:00 FiO2 35 05/20/24 12:00 Narrative Exam GENERAL APPEARANCE: Patient seems to be comfortable, adequately hydrated and nourished. HEENT: EOMI, PERRLA NECK: Neck supple, no JVD or bruit CARDIOVASCULAR: Heart regular, no murmurs LUNGS/CHEST: Chest clear to auscultation. No rales, rhonchi, wheezing ABDOMEN: Soft, nontender, nondistended. No masses. Normal bowel sounds. EXTREMITIES: Marked improvement in edema SKIN: Wound VAC noted in the left groin area. Decubitus ulcer in the buttock. MUSCULOSKELETAL: In bed NEUROLOGICAL : Alert and awake Morbidly obese gentleman Objective Labs 05/22/24 05:28 05/22/24 05:28 Labs: Laboratory Results - last 24 hr 05/21/24 05:58 WBC 17.1 H RBC 3.16 L Hgb 8.1 L Hct 26.7 L MCV 85 MCH 25.6 MCHC 30.3 L RDW Std Deviation 46.4 H Plt Count 356 Neut % (Auto) 72 Lymph % (Auto) 10 [place] % (Auto) 8 Eos % (Auto) 1 Baso % (Auto) 0 Neut # (Auto) 12.4 H Lymph # (Auto) 1.7 [place] # (Auto) 1.4 H Eos # (Auto) 0.2 Baso # (Auto) 0.1 Immature Gran # (Auto) 1.38 H Absolute Nucleated RBC 0.00 Immature Gran % 8 H Nucleated RBC % 0 Sodium 132 L Potassium 3.8 Chloride 92 L Carbon Dioxide 33.2 H Anion Gap 7 BUN 64 H Creatinine 1.7 H Estim Creat Clear Calc 66.6 eGFR 47 L BUN/Creatinine Ratio 38 H Glucose 181 H D Calculated Osmolality 287 Calcium 8.5 Corrected Calcium 9.2 Magnesium 1.6 Total Bilirubin < 0.2 L AST 15 ALT 9 L Alkaline Phosphatase 151 H Total Protein 6.5 Albumin 3.1 L Globulin 3.4 Albumin/Globulin Ratio 0.9 L Random Vancomycin 12.0 ABG Interpretation ABG results: 05/10/24 05/13/24 12:26 11:23 ABG pH 7.34 L 7.36 ABG pCO2 43 40 ABG pO2 127 H 75 L D ABG HCO3 23 23 ABG O2 Saturation 100 H 94 ABG Base Excess -2 -3 Assessment & Plan Additional Assessment & Plan Additional Plan: 1. Acute on chronic kidney disease, now improved. 2. Type 2 diabetes with nephrotic syndrome whose uPCR is about 9.9 grams. 3. Stage IIIB chronic kidney disease. 4. Decompensated congestive heart failure-better now 5. Anasarca, now improved. 6. Diabetes. 7. Hypertension. PLAN: continue him on Bumex 2 mg IV t.i.d. with metolazone 10 mg b.i.d. for effective diuresis. We will continue to monitor his urine output, kidney function, CBC on a daily basis. Continue losartan 100 mg p.o. daily.
[2024-05-21] MEDS: BUMETANIDE 0.5 MG TABLET 2 MG PO (21:18)
[2024-05-21] MEDS: ATORVASTATIN CALCIUM 20 MG TABLET 40 MG PO (21:19)
[2024-05-21] MEDS: amLODIPine BESYLATE 5 MG TABLET PO (21:22)
[2024-05-21] MEDS: INSULIN GLARGINE (Lantus) 5 UNIT/0.05 ML (PER 5 UNITS) 80 UNIT SC (21:38)
[2024-05-22] VITALS (13 sets, daily range): BP systolic 105–143; BP diastolic 51–96; PULSE 72–78; RESP 16–20; TEMP 35.8–36.7; O2SAT 95–99; BMI 44.6; BMI 12.0
[2024-05-22] MEDS: hydrOXYzine HCL 25 MG TABLET PO (00:45)
[2024-05-22] MEDS: HYDROmorphone INJ 2 MG/ML VIAL 0.5 MG IVP ×5 (02:32→22:19)
[2024-05-22] MEDS: HYDROcodone/APAP 10/325 TAB PO ×3 (03:26→18:34)
[2024-05-22] MEDS: HYDROmorphone INJ 2 MG/ML VIAL 0.25 MG IVP (04:24)
--- NOTE | 2024-05-22 04:36 | PC.NURSE ---
DILAUDID PAIN MEDICINE GIVEN,WITNESS BY ANOTHER RN ON DUTY.
[2024-05-22 05:50] LABS: Basophils # (Auto) 0.1 Thou/mm3 (0.0-0.2); Basophils % (Auto) 0 % (0-2.5); Eosinophils # (Auto) 0.2 Thou/mm3 (0.0-0.5); Eosinophils % (Auto) 1 % (0-10); Hematocrit 25.1 % (41.0-53.0); Immature Granulocytes % (Auto) 7 % (0-0); Immature Granulocytes Auto 1.04 Thou/mm3 (0.00-0.00); Lymphocytes # (Auto) 1.6 Thou/mm3 (1.0-4.8); Lymphocytes % (Auto) 10 % (10-50); Mean Corpuscular HGB Conc 30.3 g/dl (31.0-37.0); Mean Corpuscular Hemoglobin 25.5 pg (25.0-35.0); Mean Corpuscular Volume 84 fL (80-100); Monocytes # (Auto) 1.5 Thou/mm3 (0.0-0.8); Monocytes % (Auto) 10 % (0-12); Neutrophils # (Auto) 10.8 Thou/mm3 (1.8-7.7); Neutrophils % (Auto) 72 % (37-80); Nucleated Red Blood Cell % 0 /100 WBC (0); Platelet Count 336 Thou/mm3 (140-440); RDW Standard Deviation 46.7 fL (35.1-43.9); Red Blood Count 2.98 Miln/mm3 (4.50-5.90); White Blood Count 15.1 Thou/mm3 (3.8-10.6)
[2024-05-22 05:53] LABS: Hemoglobin 7.6 g/dL (13.5-16.0)
[2024-05-22] MEDS: BUMETANIDE 0.5 MG TABLET 2 MG PO ×3 (05:59→21:44)
[2024-05-22] MEDS: metroNIDAZOLE 250 MG TABLET 500 MG PO ×3 (05:59→21:44)
[2024-05-22] MEDS: PREGABALIN 75 MG CAPSULE 150 MG PO ×3 (06:00→21:44)
[2024-05-22] MEDS: MOMETASONE FUROATE 0.1% 2 GM TOP ×3 (06:28→22:24)
[2024-05-22 06:29] LABS: Alanine Aminotransferase 10 U/L (10-49); Albumin/Globulin Ratio 0.8 (1.2-2.2); Alkaline Phosphatase 139 U/L (46-116); Anion Gap 8 (7-16); Aspartate Amino Transferase 23 U/L (0-34); BUN/Creatinine Ratio 40 Ratio (12-20); Bilirubin,Total < 0.2 mg/dL (0.3-1.2); Blood Urea Nitrogen 64 mg/dL (9-23); Calcium 8.4 mg/dL (8.3-10.6); Calcium (Corrected) 9.2 mg/dL (8.5-10.1); Carbon Dioxide 33.9 mMol/L (20.0-31.0); Chloride 90 mMol/L (98-107); Creatinine (Component) 1.6 mg/dL (0.6-1.3); Estimated Creatinine Clearance 69.8 mL/min (>60); Globulin 3.6 gm/dL (2.3-3.5); Glucose 303 mg/dL (74-106); Magnesium 1.5 mg/dL (1.6-2.6); Osmolality,Calculated 293 (275-295); Potassium 3.7 mMol/L (3.4-5.1); Sodium 132 mMol/L (136-145); Total Protein 6.6 gm/dL (5.7-8.2); Vancomycin,Random 8.7 mcg/mL; eGFR 50 See Note
[2024-05-22] MEDS: CLOTRIMAZOLE CR 1% 30 GM TUBE TOP ×4 (06:29→22:25)
[2024-05-22] MEDS: INSULIN LISPRO (AdmeLOG) 1 UNIT/0.01 ML UNIT 12 UNIT SC (07:45)
[2024-05-22] MEDS: INSULIN LISPRO (AdmeLOG) 1 UNIT/0.01 ML UNIT SC ×4 (07:46→21:52)
--- NOTE | 2024-05-22 08:18 | ESPR_ITS ---
<Statement entered by Anna Patel MD - 05/22/24 17:11> Patient was seen and examined by me personally. I agree with most of the assessment and plan as discussed with the photography intern physician, Dr. Lockhart, and my attending, Dr. Askew. WBC downtrending; continue p.o. abx on discharge; currently pending auth for SNF. ZENY improving. Pain regimen was adjusted, now with better control. Will continue to wean patient off dilaudid and transition to p.o. pain meds. Anna Patel MD, PGY-3 Documentation for date of: 05/22/24 Subjective Subjective Interval history: No acute overnight events. Patient still complaining of back pain. Otherwise sleeping okay, tolerating oral diet. Denies fever, chills, headaches, chest pain, sob, cough, GI or urinary symptoms. Exam Vital Signs Temp Pulse Resp BP Pulse Ox O2 Del Method O2 Flow Rate 98.0 F 74 17 117/66 97 Room Air 1 05/22/24 07:39 05/22/24 07:39 05/22/24 07:39 05/22/24 07:39 05/22/24 07:39 05/22/24 07:39 05/18/24 16:00 FiO2 35 05/20/24 12:00 Narrative Exam GENERAL APPEARANCE: Patient seems to be comfortable, adequately hydrated and nourished. HEENT: EOMI, PERRLA NECK: Neck supple, no JVD or bruit CARDIOVASCULAR: Heart regular, no murmurs LUNGS/CHEST: Chest clear to auscultation. No rales, rhonchi, wheezing ABDOMEN: Soft, nontender, nondistended. No masses. Normal bowel sounds. EXTREMITIES: Marked improvement in edema SKIN: Wound VAC noted in the left groin area. Decubitus ulcer in the buttock. MUSCULOSKELETAL: In bed NEUROLOGICAL : Alert and awake Objective Labs 05/23/24 05:55 05/23/24 05:55 Labs: Laboratory Results - last 24 hr 05/22/24 05:28 WBC 15.1 H RBC 2.98 L Hgb 7.6 L Hct 25.1 L MCV 84 MCH 25.5 MCHC 30.3 L RDW Std Deviation 46.7 H Plt Count 336 Neut % (Auto) 72 Lymph % (Auto) 10 Christian % (Auto) 10 Eos % (Auto) 1 Baso % (Auto) 0 Neut # (Auto) 10.8 H Lymph # (Auto) 1.6 Christian # (Auto) 1.5 H Eos # (Auto) 0.2 Baso # (Auto) 0.1 Immature Gran # (Auto) 1.04 H Absolute Nucleated RBC 0.00 Immature Gran % 7 H Nucleated RBC % 0 Sodium 132 L Potassium 3.7 Chloride 90 L Carbon Dioxide 33.9 H Anion Gap 8 BUN 64 H Creatinine 1.6 H Estim Creat Clear Calc 69.8 eGFR 50 L BUN/Creatinine Ratio 40 H Glucose 303 H D Calculated Osmolality 293 Calcium 8.4 Corrected Calcium 9.2 Magnesium 1.5 L Total Bilirubin < 0.2 L AST 23 ALT 10 Alkaline Phosphatase 139 H Total Protein 6.6 Albumin 3.0 L Globulin 3.6 H Albumin/Globulin Ratio 0.8 L Random Vancomycin 8.7 ABG Interpretation ABG results: 05/10/24 05/13/24 12:26 11:23 ABG pH 7.34 L 7.36 ABG pCO2 43 40 ABG pO2 127 H 75 L D ABG HCO3 23 23 ABG O2 Saturation 100 H 94 ABG Base Excess -2 -3 Quality Measures Quality Measures sepsis Current suspected stage: ruled out Possible source: unknown Blood cultures ordered: completed in ED Antibiotic ordered: Yes Assessment & Plan Assessment Current Active Medications: Generic Name Dose Route Start Last Admin Trade Name Freq PRN Reason Stop Dose Admin Acetaminophen 650 mg 05/11/24 11:28 05/19/24 18:59 Acetaminophen 325 Mg Tablet PO 06/09/24 17:37 650 mg Q6H PRN Administration Fever >100.3 or pain(1-3) Hydrocodone Bitart/Acetaminophen 1 tab 05/21/24 10:06 05/22/24 03:26 Hydrocodone/Apap 10/325 Tab PO 05/24/24 20:39 1 tab Q6HR PRN Administration 4-10 Protocol Amlodipine Besylate 5 mg 05/21/24 21:00 05/21/24 21:22 Amlodipine Besylate 5 Mg Tablet PO 06/20/24 20:59 5 mg HS RINA Administration Apixaban 5 mg 05/11/24 14:00 05/21/24 21:19 Apixaban 2.5 Mg Tablet PO 06/01/24 13:59 5 mg BID RINA Administration Atorvastatin Calcium 80 mg 05/22/24 21:00 Atorvastatin Calcium 20 Mg Tablet PO 06/21/24 20:59 HS RINA Bumetanide 2 mg 05/21/24 22:00 05/22/24 05:59 Bumetanide 0.5 Mg Tablet PO 06/20/24 21:59 2 mg TID RINA Administration Clotrimazole 2 gm 05/21/24 12:00 05/22/24 06:29 Clotrimazole Cr 1% 30 Gm Tube TOP 06/20/24 11:59 2 gram QID RINA Administration Dextrose 50 ml 05/10/24 19:30 Dextrose 50%-Water Inj 50 Ml Syringe IV 06/09/24 19:29 Q15MIN PRN BG <50 OR BG <70 & pt unresponsive Glucagon 1 mg 05/10/24 19:30 Glucagon Inj 1 Mg Vial IM Q15MIN PRN BG <70, and no IV access Hydromorphone HCl 0.5 mg 05/21/24 10:06 05/22/24 02:32 Hydromorphone Inj 2 Mg/Ml Vial IVP 05/24/24 20:37 0.5 mg Q4HR PRN Administration BREAKTHROUGH PAIN Protocol Magnesium Sulfate 4 gm in 50 mls @ 12.5 mls/hr 05/22/24 07:59 Magnesium Sulfate Ivpb IV 05/22/24 11:58 X1 ONE Insulin Glargine 60 unit 05/22/24 09:00 Insulin Glargine (Lantus) 5 Unit/0.05 Ml (Per 5 Units) SC 06/21/24 08:59 BID RINA Insulin Human Lispro 0 unit 05/16/24 23:00 05/22/24 07:46 Insulin Lispro (Admelog) 1 Unit/0.01 Ml Unit SC 06/15/24 22:59 10 unit ACHS RINA Administration Protocol Insulin Human Lispro 15 unit 05/22/24 11:30 Insulin Lispro (Admelog) 1 Unit/0.01 Ml Unit SC 06/21/24 11:29 [facility] Levofloxacin 500 mg 05/21/24 10:15 05/21/24 10:39 Levofloxacin 250 Mg Tablet PO 05/28/24 10:14 500 mg QDAY RINA Administration Lorazepam 2 mg 05/22/24 08:10 Lorazepam 0.5 Mg Tablet PO 05/27/24 08:09 HS PRN INSOMNIA Losartan Potassium 50 mg 05/22/24 09:00 Losartan Potassium 25 Mg Tablet PO 06/21/24 08:59 DAILY RINA Metolazone 10 mg 05/16/24 12:30 05/21/24 21:22 Metolazone 2.5 Mg Tablet PO 06/15/24 12:29 10 mg BID RINA Administration Metoprolol Succinate 100 mg 05/10/24 19:00 05/21/24 09:20 Metoprolol Succinate Xl 25 Mg Tabcr PO 06/09/24 18:59 100 mg QDAY RINA Administration Metronidazole 500 mg 05/19/24 14:00 05/22/24 05:59 Metronidazole 250 Mg Tablet PO 05/26/24 13:59 500 mg TID RINA Administration Mometasone Furoate 2 gm 05/21/24 14:00 05/22/24 06:28 Mometasone Furoate Cr 0.1% 15 Gm Tube TOP 06/20/24 13:59 1 appln TID RINA Administration Ondansetron HCl 4 mg 05/10/24 17:38 Ondansetron Inj 2 Mg/Ml Inj 2 Ml IV 06/09/24 17:37 Q6H PRN NAUSEA OR VOMITING Protocol Pregabalin 150 mg 05/18/24 14:00 05/22/24 06:00 Pregabalin 75 Mg Capsule PO 06/17/24 05:59 150 mg TID RINA Administration Simethicone 80 mg 05/18/24 21:45 05/18/24 21:52 Simethicone 80 Mg Chew PO 06/17/24 21:44 80 mg QID PRN Administration GAS Plan In summary: 84-year-old male with PMHx of DM, CAD, HFpEF, CVA with BL endarterectomy, pulmonary embolism on ELIQUIS, HTN, CAROLYN, cirrhosis, recent hospitalization for CHF exacerbation and left groin abscess presented following ground-level fall, admitted for acute hypoxic respiratory failure secondary to E. coli cellulitis and bacteremia sepsis. Continue diuresis with BUMEX and METOLAZONE, continued on FLAGYL and LEVOFLOXACIN for left groin cellulitis and bacteremia. I&D was done. Sepsis resolved, leukocytosis improving. Additionally, patient be managed for ZENY with nephrology, Dr. Burger following. Appreciate recommendations from nephrology, cardiology, and general surgery teams # Sepsis ? resolved # E. coli bacteremia # Abscess of left groin, s/p I&D 05/11 # Benign scrotal swelling On admission 4/4 SIRS positive, Pro-Calc at 12, normal lactic acid Scrotal swelling, warmth and erythema on exam, ultrasound negative for torsion or mass but showed wall thickening, CT showed air density in soft tissue of left groin extending to anterior lateral upper thigh No surgical intervention indicated per surgery, Dr. Haney Blood and groin wound cultures grew E. coli S/p CEFEPIME and VANCOMYCIN Continued on FLAGYL and LEVOFLOXACIN Sepsis resolved, leukocytosis improving Patient still experiencing significant pain and discomfort ? Continue LEVOFLOXACIN ? Continue FLAGYL ? Continue TYLENOL for pain and fever ? Continue NORCO 10/325 q.6h. PRN ? Continue DILAUDID 0.5 q.4h. PRN ? Continue wound care and wound VAC # Acute decompensated systolic heart failure # HFpEF, EF 55 to 60% 04/2024 # CAROLYN and OHS # Prerenal ZENY Patient found desatting to 84% in ED. At baseline he is on BUMEX 1 mg BID and SPIRONOLACTONE 50 mg daily BID Patient noncompliant with home CPAP CXR showed mild to moderate CHF with prominent vasculature Fluid overload on exam with 2+ edema, improving with management Creatinine peaked at 2.4, improving with management, currently 1.6 Continued on diuresis and fluid/salt restriction Total 23 L negative since admission ? Continue BUMEX 2 mg IV BID ? Continue METOLAZONE 10 mg BID ? Continue LOSARTAN 50 mg daily ? Continue TOPROL 100 mg daily ? Fluid restriction to 1500 cc, strict FREIDA's, low-sodium ? Maintain potassium greater than 4, magnesium greater than 2 ? DUONEB as needed ? Follow team driver recommendations # Hypertensive emergency ? resolved # Troponinemia, NSTEMI type II # History of CAD # Primary hypertension # Hyperlipidemia Presentation BP 180/102, initially started on NICARDIPINE drip, discontinued Troponin peaked 0.103, resolved EKG no acute ischemic changes BP improved diuresis and current meds, BP 143/87, HR 73 ? Continue LOSARTAN 50 mg daily ? Continue ATORVASTATIN 80 mg daily ? Daily vitals # T2 Insulin-dependent diabetes, poorly controlled - On admission initial glucose 461. - HbA1c : 11.7 in 10/2023 --> 13.6 in 04/2024 - Patient takes Ozempic, 50 units glargine, aspart sliding scale for diabetes at home. Plan: - Held home medications - Bedside blood glucose checks ACHS - Glargine 80 units HS - Lispro 12 units ACWM - Continue insulin sliding scale - Carb consistent low diet - Diabetes education # History of PE ? Continue APIXABAN 5 mg BID # Incidental findings 25 mm right adrenal nodule on CT 27 mm left thyroid nodule on CT Significant hepatomegaly, fatty infiltrate on CT ? Recommended follow-up outpatient for these followings Health maintenance Diet: Carb consistent GI prophylaxis: Not needed DVT prophylaxis: ELIQUIS Antibiotics: FLAGYL and LEVOFLOXACIN CODE STATUS: Full code Disposition: DC to [facility] on oral ANTIBIOTICS Attending Provider Attestation/Addendum IDianna DO, attest that I was physically present for the kirkpatrick portions of the service and evaluated the patient with the resident and I reviewed and discussed the case with the resident and agree with the resident's findings and plans of care as documented above Patient seen and evaluated this AM. Patient states his pain is very poorly controlled and was not able to receive IV dilaudid in timely manner overnight. Patient states he is unable to move without the pain medicine and feels he is not improving. He is motivated to work with PT, but unable to due to pain. Will place IV dilaudid regimen back to previous regimen for adequate pain relief. Will switch IV diuretics to PO diuretics at this time as patient appears euvolemic
[2024-05-22] MEDS: INSULIN GLARGINE (Lantus) 5 UNIT/0.05 ML (PER 5 UNITS) 60 UNIT SC ×2 (08:53→21:54)
--- NOTE | 2024-05-22 09:12 | PC.WOUND ---
Call received from Lyndon Bradley to discharge with wound vac when medically cleared. Discharge plan to SNF.
--- NOTE | 2024-05-22 09:35 | PC.SS ---
Follow up note: SS spoke to physician and patient will no longer need i.v. antibiotics. He will need to continue wound vac. Updated [facility] and they will follow up with authorization. Patient ready for d/c once we receive this.
[2024-05-22] MEDS: APIXABAN 2.5 MG TABLET 5 MG PO ×2 (11:11→21:44)
[2024-05-22] MEDS: LEVOFLOXACIN 250 MG TABLET 500 MG PO (11:11)
[2024-05-22] MEDS: LOSARTAN POTASSIUM 25 MG TABLET 50 MG PO (11:12)
[2024-05-22] MEDS: METOPROLOL SUCCINATE XL 25 MG TABCR 100 MG PO (11:13)
[2024-05-22] MEDS: INSULIN LISPRO (AdmeLOG) 1 UNIT/0.01 ML UNIT 15 UNIT SC ×2 (11:37→17:25)
--- NOTE | 2024-05-22 12:12 | PC.SS ---
Addendum entered by [place] 05/22/24 12:25: Updated patient's daughter Emy. Original Note: SS update: contacted Viji at [facility], informs insurance authorization to SNF remains pending. Updated Dr. Christiansen on status.
--- NOTE | 2024-05-22 12:20 | ESPR_ITS ---
Documentation for date of: 05/22/24 Subjective Subjective Interval history: Mr. Fisher is a 54-year-old male with coronary artery disease, congestive heart failure, morbid obesity, suspected obstructive sleep apnea, obesity hypoventilation, CVA with bilateral endarterectomy, PE, on Eliquis, hypertension, cirrhosis, who presented to the emergency room on 05/10/2024 with weakness and confusion. The patient was also found extremely volume overloaded and was started on Bumex at 2 mg per hour. The patient continues to have good urine output and marked improvement in anasarca and he is currently on IV Bumex and metolazone. He is feeling much stronger today. Denies any chest pain, shortness of breath. He has a wound VAC in the left groin and is causing his pain. Requesting pain medications [id number]. Also noted to have decubitus ulcer stage II on the buttock. Labs, medications have been reviewed. 05/22/2024 Patient was seen and examined by the bedside. No acute overnight events. Patient reports having groin pain and back pain, reports improvement in shortness of breath and edema. UO is 3,6L. Negative balance is 1,9L. Patient is set to be discharged today to SNF, on bumetanide 2 mg twice daily and metolazone 10 Mg daily. Exam Vital Signs Temp Pulse Resp BP Pulse Ox O2 Del Method O2 Flow Rate 98.0 F 78 17 120/75 97 Room Air 1 05/22/24 07:39 05/22/24 11:13 05/22/24 07:39 05/22/24 11:13 05/22/24 07:39 05/22/24 07:39 05/18/24 16:00 FiO2 35 05/20/24 12:00 Narrative Exam Physical Exam General: Awake and in no acute distress. Conversational and non-toxic appearing. BMI 44.7 HEENT: Normocephalic, atraumatic, mucous membranes moist. Heart: Regular rate and rhythm, no murmurs. Lungs: Clear to auscultation with no wheezing or crackles. Abdomen: Soft, nondistended, nontender, positive bowel sounds. ?No guarding or rebound tenderness. Neurologic: Alert and oriented x3, no gross neurological deficit, and patient able to move all 4 extremities. Extremities: Moderate pitting ankle edema. Skin: No rash or ecchymoses. Sacral area is covered by foam dressing. Wound VAC in the left groin. Objective Labs 05/23/24 05:55 05/22/24 05:28 Labs: Laboratory Results - last 24 hr 05/22/24 05:28 WBC 15.1 H RBC 2.98 L Hgb 7.6 L Hct 25.1 L MCV 84 MCH 25.5 MCHC 30.3 L RDW Std Deviation 46.7 H Plt Count 336 Neut % (Auto) 72 Lymph % (Auto) 10 Steele % (Auto) 10 Eos % (Auto) 1 Baso % (Auto) 0 Neut # (Auto) 10.8 H Lymph # (Auto) 1.6 Steele # (Auto) 1.5 H Eos # (Auto) 0.2 Baso # (Auto) 0.1 Immature Gran # (Auto) 1.04 H Absolute Nucleated RBC 0.00 Immature Gran % 7 H Nucleated RBC % 0 Sodium 132 L Potassium 3.7 Chloride 90 L Carbon Dioxide 33.9 H Anion Gap 8 BUN 64 H Creatinine 1.6 H Estim Creat Clear Calc 69.8 eGFR 50 L BUN/Creatinine Ratio 40 H Glucose 303 H D Calculated Osmolality 293 Calcium 8.4 Corrected Calcium 9.2 Magnesium 1.5 L Total Bilirubin < 0.2 L AST 23 ALT 10 Alkaline Phosphatase 139 H Total Protein 6.6 Albumin 3.0 L Globulin 3.6 H Albumin/Globulin Ratio 0.8 L Random Vancomycin 8.7 ABG Interpretation ABG results: 05/10/24 05/13/24 12:26 11:23 ABG pH 7.34 L 7.36 ABG pCO2 43 40 ABG pO2 127 H 75 L D ABG HCO3 23 23 ABG O2 Saturation 100 H 94 ABG Base Excess -2 -3 Quality Measures Quality Measures sepsis Current suspected stage: sepsis Possible source: unknown Blood cultures ordered: completed in ED Antibiotic ordered: Yes Assessment & Plan Assessment Current Active Medications: Generic Name Dose Route Start Last Admin Trade Name Freq PRN Reason Stop Dose Admin Acetaminophen 650 mg 05/11/24 11:28 05/19/24 18:59 Acetaminophen 325 Mg Tablet PO 06/09/24 17:37 650 mg Q6H PRN Administration Fever >100.3 or pain(1-3) Hydrocodone Bitart/Acetaminophen 1 tab 05/22/24 11:27 Hydrocodone/Apap 10/325 Tab PO 05/24/24 20:39 Q6HR PRN Breakthrough Pain Protocol Amlodipine Besylate 5 mg 05/21/24 21:00 05/21/24 21:22 Amlodipine Besylate 5 Mg Tablet PO 06/20/24 20:59 5 mg HS RINA Administration Apixaban 5 mg 05/11/24 14:00 05/22/24 11:11 Apixaban 2.5 Mg Tablet PO 06/01/24 13:59 5 mg BID RINA Administration Atorvastatin Calcium 80 mg 05/22/24 21:00 Atorvastatin Calcium 20 Mg Tablet PO 06/21/24 20:59 HS RINA Balsam [place] Oil 0 gm 05/22/24 09:30 Balsam [place] Oil (Venelex) 60 Gm Tube TOP 06/21/24 09:29 BID RINA Bumetanide 2 mg 05/21/24 22:00 05/22/24 05:59 Bumetanide 0.5 Mg Tablet PO 06/20/24 21:59 2 mg TID RINA Administration Clotrimazole 2 gm 05/21/24 12:00 05/22/24 06:29 Clotrimazole Cr 1% 30 Gm Tube TOP 06/20/24 11:59 2 gram QID RINA Administration Dextrose 50 ml 05/10/24 19:30 Dextrose 50%-Water Inj 50 Ml Syringe IV 06/09/24 19:29 Q15MIN PRN BG <50 OR BG <70 & pt unresponsive Glucagon 1 mg 05/10/24 19:30 Glucagon Inj 1 Mg Vial IM Q15MIN PRN BG <70, and no IV access Hydromorphone HCl 0.5 mg 05/22/24 11:27 Hydromorphone Inj 2 Mg/Ml Vial IVP 05/24/24 20:37 Q4HR PRN 4-10 Protocol Insulin Glargine 60 unit 05/22/24 09:00 05/22/24 08:53 Insulin Glargine (Lantus) 5 Unit/0.05 Ml (Per 5 Units) SC 06/21/24 08:59 60 unit BID RINA Administration Insulin Human Lispro 0 unit 05/16/24 23:00 05/22/24 11:36 Insulin Lispro (Admelog) 1 Unit/0.01 Ml Unit SC 06/15/24 22:59 8 unit ACHS RINA Administration Protocol Insulin Human Lispro 15 unit 05/22/24 11:30 05/22/24 11:37 Insulin Lispro (Admelog) 1 Unit/0.01 Ml Unit SC 06/21/24 11:29 15 unit AC RINA Administration Levofloxacin 500 mg 05/21/24 10:15 05/22/24 11:11 Levofloxacin 250 Mg Tablet PO 05/28/24 10:14 500 mg QDAY RINA Administration Lorazepam 2 mg 05/22/24 08:10 Lorazepam 0.5 Mg Tablet PO 05/27/24 08:09 HS PRN INSOMNIA Losartan Potassium 50 mg 05/22/24 09:00 05/22/24 11:12 Losartan Potassium 25 Mg Tablet PO 06/21/24 08:59 50 mg DAILY RINA Administration Metolazone 10 mg 05/16/24 12:30 05/21/24 21:22 Metolazone 2.5 Mg Tablet PO 06/15/24 12:29 10 mg BID RINA Administration Metoprolol Succinate 100 mg 05/10/24 19:00 05/22/24 11:13 Metoprolol Succinate Xl 25 Mg Tabcr PO 06/09/24 18:59 100 mg QDAY RINA Administration Metronidazole 500 mg 05/19/24 14:00 05/22/24 05:59 Metronidazole 250 Mg Tablet PO 05/26/24 13:59 500 mg TID RINA Administration Mometasone Furoate 2 gm 05/21/24 14:00 05/22/24 06:28 Mometasone Furoate Cr 0.1% 15 Gm Tube TOP 06/20/24 13:59 1 appln TID RINA Administration Ondansetron HCl 4 mg 05/10/24 17:38 Ondansetron Inj 2 Mg/Ml Inj 2 Ml IV 06/09/24 17:37 Q6H PRN NAUSEA OR VOMITING Protocol Pregabalin 150 mg 05/18/24 14:00 05/22/24 06:00 Pregabalin 75 Mg Capsule PO 06/17/24 05:59 150 mg TID RINA Administration Simethicone 80 mg 05/18/24 21:45 05/18/24 21:52 Simethicone 80 Mg Chew PO 06/17/24 21:44 80 mg QID PRN Administration GAS Plan Mr. Fisher is a 54-year-old male with coronary artery disease, congestive heart failure, morbid obesity, suspected obstructive sleep apnea, obesity hypoventilation, CVA with bilateral endarterectomy, PE, on Eliquis, hypertension, cirrhosis, who presented to the emergency room on 05/10/2024 with weakness and confusion. #ZENY on chronic kidney disease IIIB, improving. # Type 2 diabetes mellitus with nephrotic syndrome - uPCR is about 9.9 grams. - will continue to monitor outpatient #Decompensated congestive heart failure, improved # HFpEF, EF 55 to 60% 04/2024 #Anasarca, improved. #Hypertension # Hypertensive emergency, resolved PLAN: - continue diuresing - Bumex 2 mg IV twice daily - metolazone 10 mg b.i.d. for effective diuresis. - Continue losartan 100 mg p.o. daily. #Sepsis ? resolved # E. coli bacteremia # Abscess of left groin, s/p I&D 05/11 # Benign scrotal swelling # CAROLYN and OHS # Troponinemia, NSTEMI type II # History of CAD # Primary hypertension # Hyperlipidemia # T2 Insulin-dependent diabetes, poorly controlled # History of PE Management per primary team. Plan of care discussed with attending Dr. Burger. Ade Wilson MD, PGY 1. Attending Provider Attestation/Addendum Patient seen and examined with resident physician Dr. Booker. Note reviewed, agree with findings and recommendations. Marked improvement in edema. Continue with Bumex. Probable discharge today to SNF on p.o. Bumex and metolazone.
[2024-05-22] MEDS: BALSAM PERU/CASTOR OIL (Venelex) 60 GM TUBE TOP ×2 (12:25→22:24)
[2024-05-22] MEDS: metOLazone 2.5 MG TABLET 10 MG PO ×2 (12:25→21:43)
--- NOTE | 2024-05-22 15:19 | PD.RESDS ---
Planned Discharge Date 05/22/24 DS: Providers Provider Date of admission: 05/10/24 17:32 Primary care physician: Physician No Primary/Family Admitting Provider: Sabino Whitfield MD Attending Provider on Admission: Deandre Wayne DO Consults: 05/10/24 17:57 Consult to General Surgery Routine Comment: Consulting Provider: Farzana Root 05/12/24 08:14 Referral Wound Care Routine Comment: 05/12/24 08:15 Referral Nutritional Services Routine Comment: 05/12/24 11:17 Consult to Nephrology Routine Comment: Consulting Provider: Stephenie Burger 05/19/24 11:21 Consult to General Surgery Stat Comment: scortal pain, swelling Consulting Provider: Nieves Dubois 05/21/24 10:07 Referral Physical Therapy Routine Comment: Physician Instructions: 05/22/24 09:30 Referral Wound Care Routine Comment: Instructions: sacrum and left heel 05/22/24 09:31 Referral Nutritional Services Routine Comment: Instructions: DTI to sacrum and left heel Attending Provider on DC: Dr. Breanne Askew DO Discharging Provider: Dr. Breanne Askew DO DS: Diagnosis Problem List Completed Was Problem List Reviewed/Reconciled?: Yes Hospital Course Hospital Course Hospital course: Is a 54-year-old male with PMHx of IDDM, CAD, HFpEF, CVA with bilateral endarterectomy, [place] embolism on ELIQUIS, HTN, CAROLYN, cirrhosis, recent hospitalization with CHF exacerbation and left groin abscess who presented with AMS after ground-level fall Mr. Fisher is a 54-year-old male with past medical history of insulin-dependent diabetes mellitus, CAD, HFpEF, CVA with b/l endarterectomy, pulmonary embolism on Eliquis, hypertension, obstructive sleep apnea, hypertension, OHS/CAROLYN, cirrhosis, recent hospital admission 2 weeks ago for CHF exacerbation and left groin abscess presented to the ED after family found patient on the floor. Initially per ED he presented with altered mental status. However was able to regain consciousness after some time while on BiPAP. Patient being admitted for AHRF 2/2 sepsis 2/2 cellulitis. PLAN: continue him on Bumex 2 mg IV t.i.d. with metolazone 10 mg b.i.d. for effective diuresis. We will continue to monitor his urine output, kidney function, CBC on a daily basis. Continue losartan 100 mg p.o. daily. lying prone 2/2 pain, no fever no chest pain Afebrile, within normal limits, satting well on room air WBC 15.1, hemoglobin 7.6 Sodium 132, creatinine 1.6, improving, GLUCOSE 303 Magnesium 1.5, repleted with 4 consulted dietiction for dm 1. Sepsis - resolved Secondary to 2. E.coli bacteremia 3. Abscess LT groin s/p I&D : Day 9 4. Scrotal swelling, benign - Blood cultures positive for GNR, Pruett-sensitive ecoli - Wound culture positive for GPC - SIRS 4/4. Received 1 L bolus normal saline in ED. Pro-Angelo elevated 12, normal lactic acid 0.9 - Scrotal exam : scrotum is enlarged, warm, erythematous. May be due to patient's volume overloaded status with severe water retention/swelling vs epididymitis vs testicular torsion vs cellulitis - Scrotal ultrasound does not show any signs of torsion or mass; there is scrotal wall thickening Plan: - Surgery, Dr. Haney, following the patient appreciate recommendations. No need for any surgical intervention required at this time for scrotal swelling, likely due to fluid overload status. - Acetaminophen as needed for fever - Antibiotics narrowed to Levofloxacin + Flagyl today (was on cefepime/vanc/flagyl) - WBC downtrending, ZENY improving. - 0.5 Dilaudid every 4 hours as needed for pain - Wound care consulted for daily dressing and management of wound VAC 5. Acutely decompensated systolic heart failure, HFpEF 6. History of CAROLYN/OHS 7. Morbid obesity 8. ZENY Presented to ED saturating at 84% on room air. At home patient takes bumetanide 1 mg p.o. twice daily + spironolactone 50 mg p.o. twice daily. Noncompliant with CPAP machine at home. - ECHO from 04/24/2024 shows LVEF 55-60%. - Prerenal ZENY due to hypoperfusion in setting of sepsis vs cardiorenal syndrome vs nephrotoxic agents - BNP elevated - Chest x-ray : mild to moderate CHF - Hypervolemic with exam findings showing +2 pitting edema --> improving on diuretic - Adequate response to diuresis; Intake 2100 mL, Output 1750 mL, Balance -350 mL Plan: - On Bumex 2 mg PO TID - On Metolazone 10 mg PO BID - Fluid restriction 1500cc - Strict I&Os - Low sodium diet - Keep potassium >4, mag >2 - Continue BiPAP at bedtime - DuoNeb treatment as needed 9. Hypertensive emergency - resolved 10. Primary HTN - Initial blood pressures at the time of presentation to the ED is 180/102 mmHg. He was started on nicardipine drip 5 mg/h, now discontinued - SBP 100-120 mmHg Plan: - Nephrology (Dr South) consulted; appreciate recommendations - Continue Losartan 50 mg p.o. daily. - Likely better controlled in the setting of diuretic use 11. Troponinemia 2/2 demand ischemia, resolved Most likely NSTEMI II related to underlying sepsis vs NSTEMI 1 as patient does have history of CAD. Troponins downtrended from 0.103 --> 0.095 EKG : no acute ischemic changes. Plan: Continue close monitoring for now 12. T2 Insulin-dependent diabetes, poorly controlled - On admission initial glucose 461. - HbA1c : 11.7 in 10/2023 --> 13.6 in 04/2024 - Patient takes Ozempic, 50 units glargine, aspart sliding scale for diabetes at home. Plan: - Held home medications - Bedside blood glucose checks ACHS - Glargine 80 units HS - Lispro 12 units ACWM - Continue insulin sliding scale - Carb consistent low diet - Diabetes education 13. Adrenal nodule - 25 mm right adrenal nodule - Incidental adrenal nodule noted on CT Plan: Follow-up outpatient with re-imaging 14. Primary hypertension 15. History of CAD 16. History PE - Continue apixaban 5 mg p.o. twice daily - Continue atorvastatin 40 mg p.o. at bedtime - Continue metoprolol XL 100 p.o. daily Time Spent with Patient Time attestation: Total time spent providing and/or coordinating discharge services: Exam Vital Signs Temp Pulse Resp BP Pulse Ox O2 Del Method O2 Flow Rate 97.7 F 78 18 116/70 99 Room Air 1 05/22/24 12:00 05/22/24 13:03 05/22/24 12:00 05/22/24 13:03 05/22/24 12:00 05/22/24 12:00 05/18/24 16:00 FiO2 35 05/20/24 12:00 Discharge Plan Prescriptions/Referrals Prescriptions/Med Rec: New atorvastatin 80 mg tablet 80 mg PO QPM 30 Days Qty: 30 0RF metolazone 10 mg tablet 10 mg PO QDAY 30 Days Qty: 30 0RF insulin glargine [Lantus Solostar U-100 Insulin] 100 unit/mL (3 mL) insulin pen 60 unit subcut BID 30 Days Qty: 36 1RF insulin lispro [Admelog U-100 Insulin lispro] 100 unit/mL solution 15 unit subcut TID 30 Days Qty: 13.5 0RF losartan 50 mg tablet 50 mg PO QDAY Qty: 30 0RF Continued metoprolol succinate 100 mg tablet extended release 24 hr 100 mg PO DAILY hydrocodone-acetaminophen 10-325 mg tablet 1 tab PO Q4H lorazepam 2 mg tablet 2 mg PO BID pregabalin 150 mg capsule 150 mg PO TID Combivent Respimat 20-100 mcg/actuation mist 2 puff INHALATION Q8HR PRN (Reason: Shortness Of Breath) Ozempic 2 mg/dose (8 mg/3 mL) pen injector 2 mg SUBCUT QWEEK Rx Instructions: Wednesday sennosides [senna] 8.6 mg tablet 8.6 mg PO BID PRN (Reason: constipation) Qty: 30 0RF (DME) FreeStyle Liana 2 [place] Misc See Rx Instructions .Route Qty: 1 0RF Rx Instructions: As directed (DME) FreeStyle Liana 2 Sensor Kit See Rx Instructions .Route Qty: 1 0RF Rx Instructions: As directed morphine 15 mg tablet extended release 15 mg PO QDAY PRN (Reason: Pain) bumetanide 1 mg tablet 1 mg PO BID 30 Days Qty: 7 3RF metoclopramide HCl 5 mg tablet 5 mg PO Q6H 30 Days Qty: 120 3RF apixaban 5 mg tablet 5 mg PO BID 30 Days Qty: 60 0RF menthol-zinc oxide [Calmoseptine] 0.44-20.6 % ointment 1 applic topical QID PRN (Reason: skin irritation) Qty: 113 0RF Discontinued atorvastatin 40 mg tablet 40 mg PO HS losartan 100 mg tablet 100 mg PO DAILY insulin glargine [Lantus U-100 Insulin] 100 unit/mL solution 50 unit SUBCUT BID Qty: 10 0RF insulin aspart U-100 [Novolog U-100 Insulin aspart] 100 unit/mL solution 1 sliding scale dose subcut USEASDIRECTD Qty: 10 3RF hydrocodone-acetaminophen 10-325 mg tablet hydrocodone-acetaminophen 10-325 mg tablet 1 tab PO 6 TIMES DAILY PRN (Reason: Pain (Scale Score 7-10)) spironolactone 50 mg tablet 50 mg PO BID Referrals: No Primary/Family,Physician [Primary Care Provider] - Patient/Caregiver Discharge Instructions Other Discharge Activity Instructions:: ? Follow-up with PCP within 1 week to discharge ? Stop taking ATORVASTATIN 40 mg, continue taking ATORVASTATIN 80 mg (dose adjusted) ? Continue taking INSULIN glargine 60 units BID ? Continue taking lispro 15 units TID ? Continue take LOSARTAN 50 mg daily ? Continue taking METOLAZONE 10 mg daily ? Continue other medications as prescribed ? Return to emergency room if symptoms worsen, do not improve or new symptoms develop Wound care: 1) Left groin surgical wound with undermining: irrigate with normal saline, pat dry, fill underminig with white foam, remaining wound bed with black foam. Skin prep, drape and trac pad at 125mmhg continous suction. Change Mon,wed, fri and PRN for suction off greater than 2 hours. May use NS wet/dry packing BID until wound vac avialiable. 2) Deep tissue injury to sacrum: cleanse with wound cleanser, pat dry, apply Venelex to wound bed. Skin prep to wound edges and secure with allyven dressing BID/PRN for soiling or falling off. Side to side repositioning except for meals. 3) Deep tissue injury to left heel: swab with betadine BID and cover with allyven dressing. Negative heel pressure bilaterally at all times. Print Language: Malawian
[2024-05-22] MEDS: ATORVASTATIN CALCIUM 20 MG TABLET 80 MG PO (21:43)
[2024-05-22] MEDS: amLODIPine BESYLATE 5 MG TABLET PO (21:44)
[2024-05-23] VITALS (11 sets, daily range): BP systolic 98–163; BP diastolic 55–88; PULSE 64–76; RESP 18–19; TEMP 36.1–36.7; O2SAT 91–99
[2024-05-23] MEDS: HYDROcodone/APAP 10/325 TAB PO ×2 (01:38→10:38)
[2024-05-23] MEDS: metroNIDAZOLE 250 MG TABLET 500 MG PO ×3 (06:09→21:52)
[2024-05-23] MEDS: BUMETANIDE 0.5 MG TABLET 2 MG PO ×3 (06:09→21:52)
[2024-05-23] MEDS: PREGABALIN 75 MG CAPSULE 150 MG PO ×3 (06:09→21:52)
[2024-05-23] MEDS: CLOTRIMAZOLE CR 1% 30 GM TUBE TOP ×3 (06:14→17:36)
[2024-05-23] MEDS: MOMETASONE FUROATE 0.1% 2 GM TOP ×2 (06:14→14:15)
[2024-05-23 06:19] LABS: Basophils # (Auto) 0.1 Thou/mm3 (0.0-0.2); Basophils % (Auto) 0 % (0-2.5); Eosinophils # (Auto) 0.3 Thou/mm3 (0.0-0.5); Eosinophils % (Auto) 2 % (0-10); Hematocrit 26.7 % (41.0-53.0); Immature Granulocytes % (Auto) 7 % (0-0); Immature Granulocytes Auto 1.14 Thou/mm3 (0.00-0.00); Lymphocytes # (Auto) 2.1 Thou/mm3 (1.0-4.8); Lymphocytes % (Auto) 13 % (10-50); Mean Corpuscular HGB Conc 30.3 g/dl (31.0-37.0); Mean Corpuscular Hemoglobin 25.4 pg (25.0-35.0); Mean Corpuscular Volume 84 fL (80-100); Monocytes # (Auto) 1.7 Thou/mm3 (0.0-0.8); Monocytes % (Auto) 10 % (0-12); Neutrophils # (Auto) 10.7 Thou/mm3 (1.8-7.7); Neutrophils % (Auto) 67 % (37-80); Nucleated Red Blood Cell % 0 /100 WBC (0); Platelet Count 335 Thou/mm3 (140-440); RDW Standard Deviation 46.4 fL (35.1-43.9); Red Blood Count 3.19 Miln/mm3 (4.50-5.90); White Blood Count 15.9 Thou/mm3 (3.8-10.6)
[2024-05-23 06:26] LABS: Hemoglobin 8.1 g/dL (13.5-16.0)
[2024-05-23 06:50] LABS: Alanine Aminotransferase 14 U/L (10-49); Albumin/Globulin Ratio 0.8 (1.2-2.2); Alkaline Phosphatase 131 U/L (46-116); Anion Gap 8 (7-16); Aspartate Amino Transferase 34 U/L (0-34); BUN/Creatinine Ratio 39 Ratio (12-20); Bilirubin,Total < 0.2 mg/dL (0.3-1.2); Blood Urea Nitrogen 62 mg/dL (9-23); Calcium 8.5 mg/dL (8.3-10.6); Calcium (Corrected) 9.3 mg/dL (8.5-10.1); Carbon Dioxide 33.2 mMol/L (20.0-31.0); Chloride 91 mMol/L (98-107); Creatinine (Component) 1.6 mg/dL (0.6-1.3); Estimated Creatinine Clearance 69.7 mL/min (>60); Globulin 3.7 gm/dL (2.3-3.5); Glucose 115 mg/dL (74-106); Magnesium 1.5 mg/dL (1.6-2.6); Osmolality,Calculated 283 (275-295); Phosphorous 4.8 mg/dL (2.4-5.1); Sodium 132 mMol/L (136-145); Total Protein 6.7 gm/dL (5.7-8.2); eGFR 50 See Note
[2024-05-23] MEDS: HYDROmorphone INJ 2 MG/ML VIAL 0.5 MG IVP ×4 (07:53→23:17)
--- NOTE | 2024-05-23 08:36 | ESPR_ITS ---
Documentation for date of: 05/23/24 Subjective Subjective Interval history: Mr. Fisher is a 54-year-old male with coronary artery disease, congestive heart failure, morbid obesity, suspected obstructive sleep apnea, obesity hypoventilation, CVA with bilateral endarterectomy, PE, on Eliquis, hypertension, cirrhosis, who presented to the emergency room on 05/10/2024 with weakness and confusion. The patient was also found extremely volume overloaded and was started on Bumex at 2 mg per hour. The patient continues to have good urine output and marked improvement in anasarca and he is currently on IV Bumex and metolazone. He is feeling much stronger today. Denies any chest pain, shortness of breath. He has a wound VAC in the left groin and is causing his pain. Requesting pain medications [id number]. Also noted to have decubitus ulcer stage II on the buttock. Labs, medications have been reviewed. 05/23/2024 patient currently seen in medical floor. Resting comfortably. Swelling markedly improved. Currently on Bumex and metolazone. Urine output excellent. He seems to be in good spirits lately. Labs, medications reviewed. Review of Systems Review of Systems Narrative Review of Systems: CONSTITUTIONAL: Patient denies any fever, chills. Lost weight HEENT: Denies any visual disturbances or hearing problems. CARDIOVASCULAR: Patient denies any chest pain, shortness of breath. swelling in the lower extremities- Markedly improved PULMONARY: Patient denies any shortness of breath, cough. GASTROINTESTINAL: Patient denies any abdominal pain, constipation, nausea, vomiting, diarrhea. GENITOURINARY: Patient denies any urinary symptoms of burning or frequency or hematuria, denies any form in the urine. SKIN: Patient has wound VAC in the left groin. MUSCULOSKELETAL: Complaining of back pain NEUROLOGICAL: Does have lower extremity weakness Exam Vital Signs Temp Pulse Resp BP Pulse Ox O2 Del Method O2 Flow Rate 36.2 C 72 19 133/55 H 97 Room Air 1 05/24/24 04:00 05/24/24 04:00 05/24/24 04:00 05/24/24 04:00 05/24/24 04:00 05/24/24 04:00 05/23/24 16:00 FiO2 35 05/23/24 16:00 Narrative Exam GENERAL APPEARANCE: Patient seems to be comfortable, adequately hydrated and nourished. HEENT: EOMI, PERRLA NECK: Neck supple, no JVD or bruit CARDIOVASCULAR: Heart regular, no murmurs LUNGS/CHEST: Chest clear to auscultation. No rales, rhonchi, wheezing ABDOMEN: Soft, nontender, nondistended. No masses. Normal bowel sounds. EXTREMITIES: Marked improvement in edema SKIN: Wound VAC noted in the left groin area. Decubitus ulcer in the buttock. MUSCULOSKELETAL: In bed NEUROLOGICAL : Alert and awake Morbidly obese gentleman Objective Labs 05/24/24 05:44 05/23/24 05:55 Labs: Laboratory Results - last 24 hr 05/23/24 05/24/24 05:55 05:44 WBC 10.7 H D RBC 3.05 L Hgb 7.8 L Hct 25.8 L MCV 85 MCH 25.6 MCHC 30.2 L RDW Std Deviation 46.5 H Plt Count 300 D Neut % (Auto) 63 Lymph % (Auto) 15 [place] % (Auto) 13 H Eos % (Auto) 2 Baso % (Auto) 1 Neut # (Auto) 6.7 Lymph # (Auto) 1.6 [place] # (Auto) 1.3 H Eos # (Auto) 0.2 Baso # (Auto) 0.1 Immature Gran # (Auto) 0.80 H Absolute Nucleated RBC 0.00 Immature Gran % 8 H Nucleated RBC % 0 Sodium 132 L Potassium 4.0 Chloride 91 L Carbon Dioxide 33.2 H Anion Gap 8 BUN 62 H Creatinine 1.6 H Estim Creat Clear Calc 69.7 eGFR 50 L BUN/Creatinine Ratio 39 H Glucose 115 H D Calculated Osmolality 283 Calcium 8.5 Corrected Calcium 9.3 Phosphorus 4.8 Magnesium 1.5 L Total Bilirubin < 0.2 L AST 34 ALT 14 Alkaline Phosphatase 131 H Total Protein 6.7 Albumin 3.0 L Globulin 3.7 H Albumin/Globulin Ratio 0.8 L ABG Interpretation ABG results: 05/10/24 05/13/24 12:26 11:23 ABG pH 7.34 L 7.36 ABG pCO2 43 40 ABG pO2 127 H 75 L D ABG HCO3 23 23 ABG O2 Saturation 100 H 94 ABG Base Excess -2 -3 Assessment & Plan Additional Assessment & Plan Additional Plan: 1. Acute on chronic kidney disease, now improved. 2. Type 2 diabetes with nephrotic syndrome whose uPCR is about 9.9 grams. 3. Stage IIIB chronic kidney disease. 4. Decompensated congestive heart failure-better now 5. Anasarca, now improved. 6. Diabetes. 7. Hypertension. PLAN: continue him on Bumex 2 mg p.o. twice daily with metolazone 10 mg qd. for effective diuresis. We will continue to monitor his urine output, kidney function, CBC on a daily basis. Continue losartan 100 mg p.o. daily. Discharge planning per primary team.
--- NOTE | 2024-05-23 10:11 | ESPR_ITS ---
<Statement entered by Jay Christiansen MD - 05/23/24 16:26> Mr. Fisher is an 84-year-old male admitted for sepsis secondary to E. coli bacteremia and left groin abscess s/p I&D on 05/11/2024. Patient was initially treated with IV cefepime and vancomycin and Flagyl but is now switched to p.o. levofloxacin 500 mg daily and p.o. Flagyl 500 mg 3 times daily in preparation for discharge to long-term facility. He is also on as needed [place] and Dilaudid for pain control. Patient was counseled extensively that he would not be given IV pain medications on discharge and would have to take p.o. pain meds at the facility, he expresses understanding. Patient to be discharged to [facility] (he refused [facility]), pending insurance authorization at this time. Patient examined and case discussed with the team including attending physician. Note reviewed, I agree with the care plan as documented by Dr Lockhart. - Jay Christiansen MD, PGY 2 Documentation for date of: 05/23/24 Subjective Subjective Interval history: No acute overnight events. Pain managed with current regiment. Tolerating oral intake without nausea or vomiting. Denies fever, chills, headaches, chest pain, sob, cough, GI or urinary symptoms. Patient refused placement to [facility], would like to proceed with [place]. Patient understands that we'll have to discharge on oral ANTIBIOTICS instead. Exam Vital Signs Temp Pulse Resp BP Pulse Ox O2 Del Method O2 Flow Rate 97.3 F 69 19 163/87 H 98 Room Air 1 05/23/24 07:59 05/23/24 07:59 05/23/24 07:59 05/23/24 07:59 05/23/24 07:59 05/23/24 07:59 05/23/24 07:59 FiO2 35 05/23/24 07:59 Narrative Exam GENERAL APPEARANCE: Patient seems to be comfortable, adequately hydrated and nourished. HEENT: EOMI, PERRLA NECK: Neck supple, no JVD or bruit CARDIOVASCULAR: Heart regular, no murmurs LUNGS/CHEST: Chest clear to auscultation. No rales, rhonchi, wheezing ABDOMEN: Soft, nontender, nondistended. No masses. Normal bowel sounds. EXTREMITIES: No lower extremity edema bilaterally SKIN: Wound VAC noted in the left groin area. Decubitus ulcer in the buttock. NEUROLOGICAL : Alert and awake Objective Labs 05/23/24 05:55 05/23/24 05:55 Labs: Laboratory Results - last 24 hr 05/23/24 05:55 WBC 15.9 H RBC 3.19 L Hgb 8.1 L Hct 26.7 L MCV 84 MCH 25.4 MCHC 30.3 L RDW Std Deviation 46.4 H Plt Count 335 Neut % (Auto) 67 Lymph % (Auto) 13 Osborne % (Auto) 10 Eos % (Auto) 2 Baso % (Auto) 0 Neut # (Auto) 10.7 H Lymph # (Auto) 2.1 Osborne # (Auto) 1.7 H Eos # (Auto) 0.3 Baso # (Auto) 0.1 Immature Gran # (Auto) 1.14 H Absolute Nucleated RBC 0.00 Immature Gran % 7 H Nucleated RBC % 0 Sodium 132 L Potassium 4.0 Chloride 91 L Carbon Dioxide 33.2 H Anion Gap 8 BUN 62 H Creatinine 1.6 H Estim Creat Clear Calc 69.7 eGFR 50 L BUN/Creatinine Ratio 39 H Glucose 115 H D Calculated Osmolality 283 Calcium 8.5 Corrected Calcium 9.3 Phosphorus 4.8 Magnesium 1.5 L Total Bilirubin < 0.2 L AST 34 ALT 14 Alkaline Phosphatase 131 H Total Protein 6.7 Albumin 3.0 L Globulin 3.7 H Albumin/Globulin Ratio 0.8 L ABG Interpretation ABG results: 05/10/24 05/13/24 12:26 11:23 ABG pH 7.34 L 7.36 ABG pCO2 43 40 ABG pO2 127 H 75 L D ABG HCO3 23 23 ABG O2 Saturation 100 H 94 ABG Base Excess -2 -3 Quality Measures Quality Measures sepsis Current suspected stage: sepsis Possible source: unknown Blood cultures ordered: completed in ED Antibiotic ordered: Yes Assessment & Plan Assessment Current Active Medications: Generic Name Dose Route Start Last Admin Trade Name Freq PRN Reason Stop Dose Admin Acetaminophen 650 mg 05/11/24 11:28 05/19/24 18:59 Acetaminophen 325 Mg Tablet PO 06/09/24 17:37 650 mg Q6H PRN Administration Fever >100.3 or pain(1-3) Hydrocodone Bitart/Acetaminophen 1 tab 05/22/24 11:27 05/23/24 01:38 Hydrocodone/Apap 10/325 Tab PO 05/24/24 20:39 1 tab Q6HR PRN Administration Breakthrough Pain Protocol Amlodipine Besylate 5 mg 05/21/24 21:00 05/22/24 21:44 Amlodipine Besylate 5 Mg Tablet PO 06/20/24 20:59 5 mg HS RINA Administration Apixaban 5 mg 05/11/24 14:00 05/22/24 21:44 Apixaban 2.5 Mg Tablet PO 06/01/24 13:59 5 mg BID RINA Administration Atorvastatin Calcium 80 mg 05/22/24 21:00 05/22/24 21:43 Atorvastatin Calcium 20 Mg Tablet PO 06/21/24 20:59 80 mg HS RINA Administration Balsam Virgie/[place] Oil 0 gm 05/22/24 09:30 05/22/24 22:24 Balsam Virgie/[place] Oil (Venelex) 60 Gm Tube TOP 06/21/24 09:29 1 appln BID RINA Administration Bumetanide 2 mg 05/23/24 09:00 Bumetanide 0.5 Mg Tablet PO 06/22/24 08:59 BID RINA Clotrimazole 2 gm 05/21/24 12:00 05/23/24 06:14 Clotrimazole Cr 1% 30 Gm Tube TOP 06/20/24 11:59 2 gram QID RINA Administration Dextrose 50 ml 05/10/24 19:30 Dextrose 50%-Water Inj 50 Ml Syringe IV 06/09/24 19:29 Q15MIN PRN BG <50 OR BG <70 & pt unresponsive Glucagon 1 mg 05/10/24 19:30 Glucagon Inj 1 Mg Vial IM Q15MIN PRN BG <70, and no IV access Hydromorphone HCl 0.5 mg 05/22/24 11:27 05/23/24 07:53 Hydromorphone Inj 2 Mg/Ml Vial IVP 05/24/24 20:37 0.5 mg Q4HR PRN Administration 4-10 Protocol Insulin Glargine 80 unit 05/23/24 21:00 Insulin Glargine (Lantus) 5 Unit/0.05 Ml (Per 5 Units) SC 06/22/24 20:59 BID RINA Insulin Human Lispro 0 unit 05/16/24 23:00 05/23/24 07:32 Insulin Lispro (Admelog) 1 Unit/0.01 Ml Unit SC 06/15/24 22:59 Not Given ACHS RINA Protocol Levofloxacin 500 mg 05/21/24 10:15 05/22/24 11:11 Levofloxacin 250 Mg Tablet PO 05/28/24 10:14 500 mg QDAY RINA Administration Lorazepam 2 mg 05/22/24 08:10 Lorazepam 0.5 Mg Tablet PO 05/27/24 08:09 HS PRN INSOMNIA Losartan Potassium 50 mg 05/22/24 09:00 05/22/24 11:12 Losartan Potassium 25 Mg Tablet PO 06/21/24 08:59 50 mg DAILY RINA Administration Metolazone 10 mg 05/23/24 09:00 Metolazone 2.5 Mg Tablet PO 06/22/24 08:59 QDAY RINA Metoprolol Succinate 100 mg 05/10/24 19:00 05/22/24 11:13 Metoprolol Succinate Xl 25 Mg Tabcr PO 06/09/24 18:59 100 mg QDAY RINA Administration Metronidazole 500 mg 05/19/24 14:00 05/23/24 06:09 Metronidazole 250 Mg Tablet PO 05/26/24 13:59 500 mg TID RINA Administration Mometasone Furoate 2 gm 05/21/24 14:00 05/23/24 06:14 Mometasone Furoate Cr 0.1% 15 Gm Tube TOP 06/20/24 13:59 1 appln TID RINA Administration Ondansetron HCl 4 mg 05/10/24 17:38 Ondansetron Inj 2 Mg/Ml Inj 2 Ml IV 06/09/24 17:37 Q6H PRN NAUSEA OR VOMITING Protocol Pregabalin 150 mg 05/18/24 14:00 05/23/24 06:09 Pregabalin 75 Mg Capsule PO 06/17/24 05:59 150 mg TID RINA Administration Simethicone 80 mg 05/18/24 21:45 05/18/24 21:52 Simethicone 80 Mg Chew PO 06/17/24 21:44 80 mg QID PRN Administration GAS Plan In summary: 84-year-old male with PMHx of DM, CAD, HFpEF, CVA with BL endarterectomy, pulmonary embolism on ELIQUIS, HTN, CAROLYN, cirrhosis, recent hospitalization for CHF exacerbation and left groin abscess presented following ground-level fall, admitted for acute hypoxic respiratory failure secondary to E. coli cellulitis and bacteremia sepsis. Continue diuresis with BUMEX and METOLAZONE, continued on FLAGYL and LEVOFLOXACIN for left groin cellulitis and bacteremia. I&D was done. Sepsis resolved, leukocytosis improving. Additionally, patient be managed for ZENY with nephrology, Dr. Burger following. Pending authorization for [place]. Patient otherwise stable for discharge. Appreciate recommendations from nephrology, cardiology, and general surgery teams # Sepsis ? resolved # E. coli bacteremia # Abscess of left groin, s/p I&D 05/11 # Benign scrotal swelling On admission 09/22 SIRS positive, Pro-Calc at 12, normal lactic acid Scrotal swelling, warmth and erythema on exam, ultrasound negative for torsion or mass but showed wall thickening, CT showed air density in soft tissue of left groin extending to anterior lateral upper thigh No surgical intervention indicated per surgery, Dr. Haney Blood and groin wound cultures grew E. coli Repeat blood cx negative after 5 days S/p CEFEPIME and VANCOMYCIN Continued on FLAGYL and LEVOFLOXACIN Sepsis resolved, leukocytosis improving Patient still experiencing significant pain and discomfort ? Continue LEVOFLOXACIN 500 mg daily ? Continue FLAGYL 500 mg TID ? Continue TYLENOL for pain and fever ? Continue NORCO 10/325 q.6h. PRN ? Continue DILAUDID 0.5 q.4h. PRN ? Continue wound care and wound VAC # Acute decompensated systolic heart failure # HFpEF, EF 55 to 60% 04/2024 # CAROLYN and OHS # ZENY on CKD IIIB - improving Patient found desatting to 84% in ED. At baseline he is on BUMEX 1 mg BID and SPIRONOLACTONE 50 mg daily BID Patient noncompliant with home CPAP CXR showed mild to moderate CHF with prominent vasculature Continued on diuresis and fluid/salt restriction Fluid overload on exam with 2+ edema, resolved Creatinine peaked at 2.4, improving with management, currently stable at 1.6 Total 24 L negative since admission ? Continue BUMEX 2 mg IV BID ? Continue METOLAZONE 10 mg BID ? Continue LOSARTAN 50 mg daily ? Continue TOPROL 100 mg daily ? Fluid restriction to 1500 cc, strict FREIDA's, low-sodium ? Maintain potassium greater than 4, magnesium greater than 2 ? DUONEB as needed ? Follow shoulder joiner recommendations # Hypertensive emergency ? resolved # Troponinemia, NSTEMI type II # History of CAD # Primary hypertension # Hyperlipidemia Presentation BP 180/102, initially started on NICARDIPINE drip, discontinued Troponin peaked 0.103, resolved EKG no acute ischemic changes BP improved diuresis and current meds, BP 119/57, HR 64 ? Continue LOSARTAN 50 mg daily ? Continue ATORVASTATIN 80 mg daily ? Daily vitals # T2 Insulin-dependent diabetes, poorly controlled Admission glucose 461, 04/2024 A1c 13.6 GLUCOSE 118, well-managed with current regimen ? Holding home OZEMPIC ? Continue INSULIN GLARGINE 80 units BID ? Continue INSULIN sliding scale ? Accu-Cheks ? Carb consistent diet ? Diabetic education provided # History of PE ? Continue APIXABAN 5 mg BID # Incidental findings 25 mm right adrenal nodule on CT 27 mm left thyroid nodule on CT Significant hepatomegaly, fatty infiltrate on CT ? Recommended follow-up outpatient for these followings Health maintenance Diet: Carb consistent GI prophylaxis: Not needed DVT prophylaxis: ELIQUIS Antibiotics: FLAGYL and LEVOFLOXACIN CODE STATUS: Full code Disposition: DC to [place] facility on oral ANTIBIOTICS Attending Provider Attestation/Addendum Dianna Camara DO, attest that I was physically present for the [place] portions of the service and evaluated the patient with the resident and I reviewed and discussed the case with the resident and agree with the resident's findings and plans of care as documented above Patient seen and evaluated this AM. He is in better spirits due to better pain control and was able to stand with physical therapy. Will continue with IV pain medicine and re-evaluate in AM to wean off IV dilaudid. Patient states he is unable to move or participate in PT without adequate pain control otherwise. Explained to patient that pain regimen needs to be switched to PO for discharge which he is understanding and willing to work towards.
[2024-05-23] MEDS: Magnesium Sulfate 4 GM Ivpb 4 GM/50 ML BAG IV (10:37)
[2024-05-23] MEDS: metOLazone 2.5 MG TABLET 10 MG PO (10:39)
[2024-05-23] MEDS: LOSARTAN POTASSIUM 25 MG TABLET 50 MG PO (10:40)
[2024-05-23] MEDS: METOPROLOL SUCCINATE XL 25 MG TABCR 100 MG PO (10:40)
[2024-05-23] MEDS: APIXABAN 2.5 MG TABLET 5 MG PO ×2 (10:41→21:51)
[2024-05-23] MEDS: BALSAM PERU/CASTOR OIL (Venelex) 60 GM TUBE TOP (10:41)
[2024-05-23] MEDS: LEVOFLOXACIN 250 MG TABLET 500 MG PO (10:41)
[2024-05-23] MEDS: INSULIN GLARGINE (Lantus) 5 UNIT/0.05 ML (PER 5 UNITS) 20 UNIT SC (10:42)
[2024-05-23] MEDS: INSULIN LISPRO (AdmeLOG) 1 UNIT/0.01 ML UNIT SC ×3 (11:24→22:24)
[2024-05-23] MEDS: ATORVASTATIN CALCIUM 20 MG TABLET 80 MG PO (21:51)
--- NOTE | 2024-05-23 21:56 | PC.NURSE ---
Pt blood pressure 98/55 with HR 70. stated to hold amplodipine and still give bumex.
[2024-05-23] MEDS: INSULIN GLARGINE (Lantus) 5 UNIT/0.05 ML (PER 5 UNITS) 80 UNIT SC (22:28)
[2024-05-24] VITALS (8 sets, daily range): BP systolic 112–141; BP diastolic 54–77; PULSE 70–77; RESP 12–19; TEMP 36.1–36.5; O2SAT 94–99; BMI 45.6
[2024-05-24 06:11] LABS: Basophils # (Auto) 0.1 Thou/mm3 (0.0-0.2); Basophils % (Auto) 1 % (0-2.5); Eosinophils # (Auto) 0.2 Thou/mm3 (0.0-0.5); Eosinophils % (Auto) 2 % (0-10); Hematocrit 25.8 % (41.0-53.0); Immature Granulocytes % (Auto) 8 % (0-0); Lymphocytes # (Auto) 1.6 Thou/mm3 (1.0-4.8); Lymphocytes % (Auto) 15 % (10-50); Mean Corpuscular HGB Conc 30.2 g/dl (31.0-37.0); Mean Corpuscular Hemoglobin 25.6 pg (25.0-35.0); Mean Corpuscular Volume 85 fL (80-100); Monocytes # (Auto) 1.3 Thou/mm3 (0.0-0.8); Monocytes % (Auto) 13 % (0-12); Neutrophils # (Auto) 6.7 Thou/mm3 (1.8-7.7); Neutrophils % (Auto) 63 % (37-80); Nucleated Red Blood Cell % 0 /100 WBC (0); Platelet Count 300 Thou/mm3 (140-440); RDW Standard Deviation 46.5 fL (35.1-43.9); Red Blood Count 3.05 Miln/mm3 (4.50-5.90); White Blood Count 10.7 Thou/mm3 (3.8-10.6)
[2024-05-24] MEDS: HYDROmorphone INJ 2 MG/ML VIAL 0.5 MG IVP (06:14)
[2024-05-24 06:15] LABS: Hemoglobin 7.8 g/dL (13.5-16.0)
[2024-05-24] MEDS: metroNIDAZOLE 250 MG TABLET 500 MG PO ×2 (06:15→21:05)
[2024-05-24] MEDS: PREGABALIN 75 MG CAPSULE 150 MG PO (06:15)
[2024-05-24] MEDS: CLOTRIMAZOLE CR 1% 30 GM TUBE TOP ×4 (06:16→21:05)
[2024-05-24] MEDS: MOMETASONE FUROATE 0.1% 2 GM TOP ×3 (06:16→21:06)
[2024-05-24 07:03] LABS: Alanine Aminotransferase 13 U/L (10-49); Albumin, Serum 3.2 gm/dL (3.5-5.0); Albumin/Globulin Ratio 0.9 (1.2-2.2); Alkaline Phosphatase 143 U/L (46-116); Anion Gap 8 (7-16); Aspartate Amino Transferase 33 U/L (0-34); BUN/Creatinine Ratio 32 Ratio (12-20); Bilirubin,Total < 0.2 mg/dL (0.3-1.2); Blood Urea Nitrogen 68 mg/dL (9-23); Calcium 8.5 mg/dL (8.3-10.6); Calcium (Corrected) 9.1 mg/dL (8.5-10.1); Carbon Dioxide 35.1 mMol/L (20.0-31.0); Chloride 87 mMol/L (98-107); Creatinine (Component) 2.1 mg/dL (0.6-1.3); Estimated Creatinine Clearance 53.8 mL/min (>60); Globulin 3.7 gm/dL (2.3-3.5); Glucose 426 mg/dL (74-106); Magnesium 2.1 mg/dL (1.6-2.6); Osmolality,Calculated 298 (275-295); Phosphorous 5.7 mg/dL (2.4-5.1); Potassium 3.8 mMol/L (3.4-5.1); Sodium 130 mMol/L (136-145); Total Protein 6.9 gm/dL (5.7-8.2); eGFR 36 See Note
--- NOTE | 2024-05-24 07:31 | PC.NURSE ---
Dr. Parada notified per lab draw this am pt blood sugar 426, per protocol called and notified sliding scale states give 20 units of lispro. MD states do not give 20 units. Give 12 units. Repeated back, and verified MD wants 12 units of lispro given from sliding scale at this time.
[2024-05-24] MEDS: INSULIN LISPRO (AdmeLOG) 1 UNIT/0.01 ML UNIT SC ×3 (08:27→21:09)
[2024-05-24] MEDS: INSULIN GLARGINE (Lantus) 5 UNIT/0.05 ML (PER 5 UNITS) 80 UNIT SC (08:30)
[2024-05-24] MEDS: SODIUM CHLORIDE 0.9% 1000 ML 1,000 ML 100 ML IV (10:36)
[2024-05-24] MEDS: INSULIN GLARGINE (Lantus) 5 UNIT/0.05 ML (PER 5 UNITS) 15 UNIT SC (10:36)
[2024-05-24] MEDS: BALSAM PERU/CASTOR OIL (Venelex) 60 GM TUBE TOP ×2 (10:54→21:05)
--- NOTE | 2024-05-24 10:59 | PD.DDS ---
Documentation for date of: 05/24/24 Summary Date and Time Date of admission: 05/10/24 17:32 Additional Data Attending physician: Hugh Parada MD Visit Providers Provider Primary care physician: Physician No Primary/Family Consults: 05/10/24 17:57 Consult to General Surgery Routine Comment: Consulting Provider: Farzana Root 05/12/24 08:14 Referral Wound Care Routine Comment: 05/12/24 08:15 Referral Nutritional Services Routine Comment: 05/12/24 11:17 Consult to Nephrology Routine Comment: Consulting Provider: Stephenie Burger 05/19/24 11:21 Consult to General Surgery Stat Comment: scortal pain, swelling Consulting Provider: Nieves Tinajero 05/21/24 10:07 Referral Physical Therapy Routine Comment: Physician Instructions: 05/22/24 09:30 Referral Wound Care Routine Comment: Instructions: sacrum and left heel 05/22/24 09:31 Referral Nutritional Services Routine Comment: Instructions: DTI to sacrum and left heel Discharge Plan Plan Patient Disposition: Xfer Skilled Nsg Fac (SNF) Disposition Comment: [facility] Patient condition on transfer: Stable Care Plan Goals: Continue wound vac Needs physical therapy at the rehab Prescriptions/Referrals Prescriptions/Med Rec: New atorvastatin 80 mg tablet 80 mg PO QPM 30 Days Qty: 30 0RF metolazone 10 mg tablet 10 mg PO QDAY 30 Days Qty: 30 0RF insulin glargine [Lantus Solostar U-100 Insulin] 100 unit/mL (3 mL) insulin pen 60 unit subcut BID 30 Days Qty: 36 1RF insulin lispro [Admelog U-100 Insulin lispro] 100 unit/mL solution 15 unit subcut TID 30 Days Qty: 13.5 0RF losartan 50 mg tablet 50 mg PO QDAY Qty: 30 0RF metronidazole 500 mg tablet 500 mg PO Q8H 2 Days Qty: 6 0RF levofloxacin 500 mg tablet 500 mg PO QDAY 2 Days Qty: 2 0RF Continued metoprolol succinate 100 mg tablet extended release 24 hr 100 mg PO DAILY hydrocodone-acetaminophen 10-325 mg tablet 1 tab PO Q4H lorazepam 2 mg tablet 2 mg PO BID pregabalin 150 mg capsule 150 mg PO TID Combivent Respimat 20-100 mcg/actuation mist 2 puff INHALATION Q8HR PRN (Reason: Shortness Of Breath) Ozempic 2 mg/dose (8 mg/3 mL) pen injector 2 mg SUBCUT QWEEK Rx Instructions: Wednesday sennosides [senna] 8.6 mg tablet 8.6 mg PO BID PRN (Reason: constipation) Qty: 30 0RF (DME) FreeStyle Liana 2 [place] Misc See Rx Instructions .Route Qty: 1 0RF Rx Instructions: As directed (DME) FreeStyle Liana 2 Sensor Kit See Rx Instructions .Route Qty: 1 0RF Rx Instructions: As directed morphine 15 mg tablet extended release 15 mg PO QDAY PRN (Reason: Pain) bumetanide 1 mg tablet 1 mg PO BID 30 Days Qty: 7 3RF metoclopramide HCl 5 mg tablet 5 mg PO Q6H 30 Days Qty: 120 3RF apixaban 5 mg tablet 5 mg PO BID 30 Days Qty: 60 0RF menthol-zinc oxide [Calmoseptine] 0.44-20.6 % ointment 1 applic topical QID PRN (Reason: skin irritation) Qty: 113 0RF Discontinued atorvastatin 40 mg tablet 40 mg PO HS losartan 100 mg tablet 100 mg PO DAILY insulin glargine [Lantus U-100 Insulin] 100 unit/mL solution 50 unit SUBCUT BID Qty: 10 0RF insulin aspart U-100 [Novolog U-100 Insulin aspart] 100 unit/mL solution 1 sliding scale dose subcut USEASDIRECTD Qty: 10 3RF hydrocodone-acetaminophen 10-325 mg tablet hydrocodone-acetaminophen 10-325 mg tablet 1 tab PO 6 TIMES DAILY PRN (Reason: Pain (Scale Score 7-10)) spironolactone 50 mg tablet 50 mg PO BID Referrals: No Primary/Family,Physician [Primary Care Provider] - Patient/Caregiver Discharge Instructions Other Discharge Activity Instructions:: ? Follow-up with PCP within 1 week to discharge ? Decreased LOSARTAN to 50 mg daily (dose adjusted) ? Increased ATORVASTATIN to 80 mg daily (dose adjusted) ? Continue Glargine 95 units BID + Lispro 15 units TID + sliding scale insulin ? HOLD Bumex and METOLAZONE for today, resume tomorrow - Take Metronidazole q8H + Levofloxacin daily as prescribed to complete antibiotic course - Continue wound vac, follow up with Dr tinajero and wound care - Needs physical therapy at the rehab ? Return to emergency room if symptoms worsen, do not improve or new symptoms develop Wound care: 1) Left groin surgical wound with undermining: irrigate with normal saline, pat dry, fill underminig with white foam, remaining wound bed with black foam. Skin prep, drape and trac pad at 125mmhg continous suction. Change Mon,wed, fri and PRN for suction off greater than 2 hours. May use NS wet/dry packing BID until wound vac avialiable. 2) Deep tissue injury to sacrum: cleanse with wound cleanser, pat dry, apply Venelex to wound bed. Skin prep to wound edges and secure with allyven dressing BID/PRN for soiling or falling of dressing Side to side repositioning except for meals. 3) Deep tissue injury to left heel: swab with betadine BID and cover with allyven dressing. Negative heel pressure bilaterally at all times. Education Materials: Diabetes Exercise Plan, Diabetes Carbs Fats Protein, ED Pain, Acute, Uncertain Cause Print Language: Russian Discharge Order Discharge Orders: Discharge (Routine); Ordered 05/24/24 Ordered By: Hugh Parada
--- NOTE | 2024-05-24 11:09 | PD.RESDS ---
Planned Discharge Date 05/24/24 DS: Providers Provider Date of admission: 05/10/24 17:32 Primary care physician: Physician No Primary/Family Admitting Provider: Sabino Whitfield MD Attending Provider on Admission: Hugh Parada MD Consults: 05/10/24 17:57 Consult to General Surgery Routine Comment: Consulting Provider: Farzana Root 05/12/24 08:14 Referral Wound Care Routine Comment: 05/12/24 08:15 Referral Nutritional Services Routine Comment: 05/12/24 11:17 Consult to Nephrology Routine Comment: Consulting Provider: Stephenie Burger 05/19/24 11:21 Consult to General Surgery Stat Comment: scortal pain, swelling Consulting Provider: Nieves Tinajero 05/21/24 10:07 Referral Physical Therapy Routine Comment: Physician Instructions: 05/22/24 09:30 Referral Wound Care Routine Comment: Instructions: sacrum and left heel 05/22/24 09:31 Referral Nutritional Services Routine Comment: Instructions: DTI to sacrum and left heel Attending Provider on DC: Jay Christiansen MD Discharging Provider: Jay Christiansen MD Hospital Course Hospital Course Hospital course: No acute overnight events. Pain managed with current regiment. Tolerating oral intake without nausea or vomiting. Denies fever, chills, headaches, chest pain, sob, cough, GI or urinary symptoms. Patient refused placement to [facility], would like to proceed with [place]. Patient understands that we'll have to discharge on oral ANTIBIOTICS instead. Time Spent with Patient Time attestation: Total time spent providing and/or coordinating discharge services: Exam Vital Signs Temp Pulse Resp BP Pulse Ox O2 Del Method O2 Flow Rate 97.3 F 70 12 120/65 97 Room Air 1 05/24/24 07:58 05/24/24 10:54 05/24/24 07:58 05/24/24 10:54 05/24/24 07:58 05/24/24 07:58 05/23/24 16:00 FiO2 35 05/23/24 16:00 Discharge Plan Plan Patient Disposition: Xfer Skilled Nsg Fac (SNF) Disposition Comment: [facility] Patient condition on transfer: Stable Care Plan Goals: Continue wound vac Needs physical therapy at the rehab Prescriptions/Referrals Prescriptions/Med Rec: New atorvastatin 80 mg tablet 80 mg PO QPM 30 Days Qty: 30 0RF metolazone 10 mg tablet 10 mg PO QDAY 30 Days Qty: 30 0RF insulin glargine [Lantus Solostar U-100 Insulin] 100 unit/mL (3 mL) insulin pen 60 unit subcut BID 30 Days Qty: 36 1RF insulin lispro [Admelog U-100 Insulin lispro] 100 unit/mL solution 15 unit subcut TID 30 Days Qty: 13.5 0RF losartan 50 mg tablet 50 mg PO QDAY Qty: 30 0RF metronidazole 500 mg tablet 500 mg PO Q8H 2 Days Qty: 6 0RF levofloxacin 500 mg tablet 500 mg PO QDAY 2 Days Qty: 2 0RF Continued metoprolol succinate 100 mg tablet extended release 24 hr 100 mg PO DAILY hydrocodone-acetaminophen 10-325 mg tablet 1 tab PO Q4H lorazepam 2 mg tablet 2 mg PO BID pregabalin 150 mg capsule 150 mg PO TID Combivent Respimat 20-100 mcg/actuation mist 2 puff INHALATION Q8HR PRN (Reason: Shortness Of Breath) Ozempic 2 mg/dose (8 mg/3 mL) pen injector 2 mg SUBCUT QWEEK Rx Instructions: Wednesday sennosides [senna] 8.6 mg tablet 8.6 mg PO BID PRN (Reason: constipation) Qty: 30 0RF (DME) FreeStyle Liana 2 [place] Misc See Rx Instructions .Route Qty: 1 0RF Rx Instructions: As directed (DME) FreeStyle Liana 2 Sensor Kit See Rx Instructions .Route Qty: 1 0RF Rx Instructions: As directed morphine 15 mg tablet extended release 15 mg PO QDAY PRN (Reason: Pain) bumetanide 1 mg tablet 1 mg PO BID 30 Days Qty: 7 3RF metoclopramide HCl 5 mg tablet 5 mg PO Q6H 30 Days Qty: 120 3RF apixaban 5 mg tablet 5 mg PO BID 30 Days Qty: 60 0RF menthol-zinc oxide [Calmoseptine] 0.44-20.6 % ointment 1 applic topical QID PRN (Reason: skin irritation) Qty: 113 0RF Discontinued atorvastatin 40 mg tablet 40 mg PO HS losartan 100 mg tablet 100 mg PO DAILY insulin glargine [Lantus U-100 Insulin] 100 unit/mL solution 50 unit SUBCUT BID Qty: 10 0RF insulin aspart U-100 [Novolog U-100 Insulin aspart] 100 unit/mL solution 1 sliding scale dose subcut USEASDIRECTD Qty: 10 3RF hydrocodone-acetaminophen 10-325 mg tablet hydrocodone-acetaminophen 10-325 mg tablet 1 tab PO 6 TIMES DAILY PRN (Reason: Pain (Scale Score 7-10)) spironolactone 50 mg tablet 50 mg PO BID Referrals: No Primary/Family,Physician [Primary Care Provider] - Patient/Caregiver Discharge Instructions Other Discharge Activity Instructions:: ? Follow-up with PCP within 1 week to discharge ? Decreased LOSARTAN to 50 mg daily (dose adjusted) ? Increased ATORVASTATIN to 80 mg daily (dose adjusted) ? Continue Glargine 95 units BID + Lispro 15 units TID + sliding scale insulin ? HOLD Bumex and METOLAZONE for today, resume tomorrow - Take Metronidazole q8H + Levofloxacin daily as prescribed to complete antibiotic course - Continue wound vac, follow up with Dr tinajero and wound care - Needs physical therapy at the rehab ? Return to emergency room if symptoms worsen, do not improve or new symptoms develop Wound care: 1) Left groin surgical wound with undermining: irrigate with normal saline, pat dry, fill underminig with white foam, remaining wound bed with black foam. Skin prep, drape and trac pad at 125mmhg continous suction. Change Mon,wed, fri and PRN for suction off greater than 2 hours. May use NS wet/dry packing BID until wound vac avialiable. 2) Deep tissue injury to sacrum: cleanse with wound cleanser, pat dry, apply Venelex to wound bed. Skin prep to wound edges and secure with allyven dressing BID/PRN for soiling or falling of dressing Side to side repositioning except for meals. 3) Deep tissue injury to left heel: swab with betadine BID and cover with allyven dressing. Negative heel pressure bilaterally at all times. Education Materials: Diabetes Exercise Plan, Diabetes Carbs Fats Protein, ED Pain, Acute, Uncertain Cause Print Language: Tanzanian Discharge Order Discharge Orders: Discharge (Routine); Ordered 05/24/24 Ordered By: Hugh Parada
--- NOTE | 2024-05-24 11:49 | PC.NURSE ---
Addendum entered by Grace Warren RN 05/24/24 15:12: ordered diazepam 10mg IVP x1. Administered as per orders @ 1220 Original Note: pt c/o shaking. hospitalist team at bedside
[2024-05-24] MEDS: DIAZEPAM INJ 5 MG/ML VIAL 2 ML 10 MG IVP (12:20)
--- NOTE | 2024-05-24 13:22 | PD.NEPHPROG ---
Documentation for date of: 05/24/24 Subjective Subjective Interval history: Mr. Fisher is a 54-year-old male with coronary artery disease, congestive heart failure, morbid obesity, suspected obstructive sleep apnea, obesity hypoventilation, CVA with bilateral endarterectomy, PE, on Eliquis, hypertension, cirrhosis, who presented to the emergency room on 05/10/2024 with weakness and confusion. The patient was also found extremely volume overloaded and was started on Bumex at 2 mg per hour. The patient continues to have good urine output and marked improvement in anasarca and he is currently on IV Bumex and metolazone. He is feeling much stronger today. Denies any chest pain, shortness of breath. He has a wound VAC in the left groin and is causing his pain. Requesting pain medications [id number]. Also noted to have decubitus ulcer stage II on the buttock. Labs, medications have been reviewed. 05/24/2024 patient currently seen in medical floor. Resting comfortably. Swelling markedly improved. Currently on Bumex and metolazone. Urine output excellent. He seems to be in good spirits lately. Labs, medications reviewed. Creatinine slightly elevated. Will cut down on the Bumex. Review of Systems Review of Systems Narrative Review of Systems: CONSTITUTIONAL: Patient denies any fever, chills. Lost weight HEENT: Denies any visual disturbances or hearing problems. CARDIOVASCULAR: Patient denies any chest pain, shortness of breath. swelling in the lower extremities- Markedly improved PULMONARY: Patient denies any shortness of breath, cough. GASTROINTESTINAL: Patient denies any abdominal pain, constipation, nausea, vomiting, diarrhea. GENITOURINARY: Patient denies any urinary symptoms of burning or frequency or hematuria, denies any form in the urine. SKIN: Patient has wound VAC in the left groin. MUSCULOSKELETAL: Complaining of back pain NEUROLOGICAL: Does have lower extremity weakness Exam Vital Signs Temp Pulse Resp BP Pulse Ox O2 Del Method O2 Flow Rate 36.1 C 71 16 138/74 H 97 Room Air 1 05/24/24 11:38 05/24/24 11:38 05/24/24 11:38 05/24/24 11:38 05/24/24 07:58 05/24/24 11:38 05/23/24 16:00 FiO2 35 05/23/24 16:00 Narrative Exam GENERAL APPEARANCE: Patient seems to be comfortable, adequately hydrated and nourished. HEENT: EOMI, PERRLA NECK: Neck supple, no JVD or bruit CARDIOVASCULAR: Heart regular, no murmurs LUNGS/CHEST: Chest clear to auscultation. No rales, rhonchi, wheezing ABDOMEN: Soft, nontender, nondistended. No masses. Normal bowel sounds. EXTREMITIES: Marked improvement in edema SKIN: Wound VAC noted in the left groin area. Decubitus ulcer in the buttock. MUSCULOSKELETAL: In bed NEUROLOGICAL : Alert and awake Morbidly obese gentleman Objective Labs 05/25/24 05:24 05/24/24 05:44 Labs: Laboratory Results - last 24 hr 05/24/24 05:44 WBC 10.7 H D RBC 3.05 L Hgb 7.8 L Hct 25.8 L MCV 85 MCH 25.6 MCHC 30.2 L RDW Std Deviation 46.5 H Plt Count 300 D Neut % (Auto) 63 Lymph % (Auto) 15 [place] % (Auto) 13 H Eos % (Auto) 2 Baso % (Auto) 1 Neut # (Auto) 6.7 Lymph # (Auto) 1.6 [place] # (Auto) 1.3 H Eos # (Auto) 0.2 Baso # (Auto) 0.1 Immature Gran # (Auto) 0.80 H Absolute Nucleated RBC 0.00 Immature Gran % 8 H Nucleated RBC % 0 Sodium 130 L Potassium 3.8 Chloride 87 L Carbon Dioxide 35.1 H Anion Gap 8 BUN 68 H Creatinine 2.1 H D Estim Creat Clear Calc 53.8 L eGFR 36 L BUN/Creatinine Ratio 32 H Glucose 426 H* D Calculated Osmolality 298 H Calcium 8.5 Corrected Calcium 9.1 Phosphorus 5.7 H Magnesium 2.1 Total Bilirubin < 0.2 L AST 33 ALT 13 Alkaline Phosphatase 143 H Total Protein 6.9 Albumin 3.2 L Globulin 3.7 H Albumin/Globulin Ratio 0.9 L ABG Interpretation ABG results: 05/10/24 05/13/24 12:26 11:23 ABG pH 7.34 L 7.36 ABG pCO2 43 40 ABG pO2 127 H 75 L D ABG HCO3 23 23 ABG O2 Saturation 100 H 94 ABG Base Excess -2 -3 Assessment & Plan Additional Assessment & Plan Additional Plan: 1. Acute on chronic kidney disease, now improved. 2. Type 2 diabetes with nephrotic syndrome whose uPCR is about 9.9 grams. 3. Stage IIIB chronic kidney disease. 4. Decompensated congestive heart failure-better now 5. Anasarca, now improved. 6. Diabetes. 7. Hypertension. PLAN: Patient currently on Bumex 2 mg p.o. twice daily with metolazone 10 mg qd. for effective diuresis. Creatinine significantly elevated from 1.6-2.2-hold diuretics today. He has good urine output. However did discuss with patient cardiorenal syndrome and mild worsening of renal function with diuretics to maintain euvolemic state. Patient understood. We will continue to monitor his urine output, kidney function, CBC on a daily basis. Continue losartan 50 mg p.o. daily. Discharge planning per primary team. Quality - progress note Quality Measures Quality Measures: VTE prophylaxis Reason for Continued Stay Reason for Continued Stay: further monitoring
--- NOTE | 2024-05-24 14:33 | PC.NURSE ---
pt requesting something for muscle spasms. came back with medication for patient. Patient asleep and too lethargic to swallow medication at this time. notified
--- NOTE | 2024-05-24 15:28 | PC.SS ---
Follow up note: SS spoke to Liliana [employer] who states they needed to confirm no other contracted facilities accepted patient. They have approval for [facility]. SS spoke to Anne Hallman who is greeable to patient admitted after 5pm. However, physician held d/c due to patient have seizure like activity this afternoon. Possible d/c tomorrow.
--- NOTE | 2024-05-24 16:03 | ESPR_ITS ---
<Statement entered by Anna Patel MD - 05/26/24 07:31> Patient was seen and examined by me personally. I agree with most of the assessment and plan as discussed with the culinary internship physician, and my attending, Dr. Parada. Patient with elevated blood sugars and complaining of twitching . Initially thought to be med-related vs muscle spasm, however did not respond to BZD or flexeril. Reviewed MAR and patient had not taken any opioids. Tremors improved with opioids. BG improved. Anna Patel MD, PGY-3 Documentation for date of: 05/24/24 Subjective Subjective Interval history: No acute overnight events. Planing of generalized muscle twitching when moving in bed. Denies seizure-like activities. Denies fever, chills, headaches, chest pain, sob, cough, GI or urinary symptoms. Exam Vital Signs Temp Pulse Resp BP Pulse Ox O2 Del Method O2 Flow Rate 97.0 F 71 16 138/74 H 97 Room Air 1 05/24/24 11:38 05/24/24 11:38 05/24/24 11:38 05/24/24 11:38 05/24/24 07:58 05/24/24 11:38 05/23/24 16:00 FiO2 35 05/23/24 16:00 Narrative Exam GENERAL APPEARANCE: Patient seems to be comfortable, adequately hydrated and nourished. HEENT: EOMI, PERRLA NECK: Neck supple, no JVD or bruit CARDIOVASCULAR: Heart regular, no murmurs LUNGS/CHEST: Chest clear to auscultation. No rales, rhonchi, wheezing ABDOMEN: Soft, nontender, nondistended. No masses. Normal bowel sounds. EXTREMITIES: No lower extremity edema bilaterally. SKIN: Wound VAC noted in the left groin area. Decubitus ulcer in the buttock. NEUROLOGICAL : Alert and awake Objective Labs 05/25/24 05:24 05/25/24 05:24 Labs: Laboratory Results - last 24 hr 05/24/24 05:44 WBC 10.7 H D RBC 3.05 L Hgb 7.8 L Hct 25.8 L MCV 85 MCH 25.6 MCHC 30.2 L RDW Std Deviation 46.5 H Plt Count 300 D Neut % (Auto) 63 Lymph % (Auto) 15 [place] % (Auto) 13 H Eos % (Auto) 2 Baso % (Auto) 1 Neut # (Auto) 6.7 Lymph # (Auto) 1.6 [place] # (Auto) 1.3 H Eos # (Auto) 0.2 Baso # (Auto) 0.1 Immature Gran # (Auto) 0.80 H Absolute Nucleated RBC 0.00 Immature Gran % 8 H Nucleated RBC % 0 Sodium 130 L Potassium 3.8 Chloride 87 L Carbon Dioxide 35.1 H Anion Gap 8 BUN 68 H Creatinine 2.1 H D Estim Creat Clear Calc 53.8 L eGFR 36 L BUN/Creatinine Ratio 32 H Glucose 426 H* D Calculated Osmolality 298 H Calcium 8.5 Corrected Calcium 9.1 Phosphorus 5.7 H Magnesium 2.1 Total Bilirubin < 0.2 L AST 33 ALT 13 Alkaline Phosphatase 143 H Total Protein 6.9 Albumin 3.2 L Globulin 3.7 H Albumin/Globulin Ratio 0.9 L ABG Interpretation ABG results: 05/10/24 05/13/24 12:26 11:23 ABG pH 7.34 L 7.36 ABG pCO2 43 40 ABG pO2 127 H 75 L D ABG HCO3 23 23 ABG O2 Saturation 100 H 94 ABG Base Excess -2 -3 Quality Measures Quality Measures sepsis Current suspected stage: ruled out Possible source: unknown Blood cultures ordered: completed in ED Antibiotic ordered: Yes Assessment & Plan Assessment Current Active Medications: Generic Name Dose Route Start Last Admin Trade Name Freq PRN Reason Stop Dose Admin Acetaminophen 650 mg 05/11/24 11:28 05/19/24 18:59 Acetaminophen 325 Mg Tablet PO 06/09/24 17:37 650 mg Q6H PRN Administration Fever >100.3 or pain(1-3) Hydrocodone Bitart/Acetaminophen 1 tab 05/24/24 10:00 Hydrocodone/Apap 10/325 Tab PO 05/24/24 20:39 Q6HR PRN PAIN SCALE 4-6 (Moderate Amlodipine Besylate 5 mg 05/21/24 21:00 05/23/24 21:56 Amlodipine Besylate 5 Mg Tablet PO 06/20/24 20:59 Not Given HS RINA Apixaban 5 mg 05/11/24 14:00 05/24/24 11:05 Apixaban 2.5 Mg Tablet PO 06/01/24 13:59 Not Given BID RINA Atorvastatin Calcium 80 mg 05/22/24 21:00 05/23/24 21:51 Atorvastatin Calcium 20 Mg Tablet PO 06/21/24 20:59 80 mg HS RINA Administration Balsam [place] Oil 0 gm 05/22/24 09:30 05/24/24 10:54 Balsam [place] Oil (Venelex) 60 Gm Tube TOP 06/21/24 09:29 1 appln BID RINA Administration Bumetanide 2 mg 05/23/24 09:00 05/24/24 10:54 Bumetanide 0.5 Mg Tablet PO 06/22/24 08:59 Not Given BID RINA Clotrimazole 2 gm 05/21/24 12:00 05/24/24 12:35 Clotrimazole Cr 1% 30 Gm Tube TOP 06/20/24 11:59 1 appln QID RINA Administration Cyclobenzaprine HCl 10 mg 05/24/24 11:55 Cyclobenzaprine 5 Mg Tablet PO 06/23/24 11:54 BID PRN MUSCLE SPASMS Dextrose 50 ml 05/10/24 19:30 Dextrose 50%-Water Inj 50 Ml Syringe IV 06/09/24 19:29 Q15MIN PRN BG <50 OR BG <70 & pt unresponsive Glucagon 1 mg 05/10/24 19:30 Glucagon Inj 1 Mg Vial IM Q15MIN PRN BG <70, and no IV access Hydromorphone HCl 1 mg 05/24/24 09:56 Hydromorphone Hcl 2 Mg Tablet PO 05/29/24 09:55 Q4HR PRN PAIN SCALE 7-10 (Severe Sodium Chloride 1,000 mls @ 100 mls/hr 05/24/24 08:56 05/24/24 10:36 Ns IV 05/24/24 18:55 100 mls/hr .Q10H ONE Administration Insulin Glargine 95 unit 05/24/24 21:00 Insulin Glargine (Lantus) 5 Unit/0.05 Ml (Per 5 Units) SC 06/23/24 20:59 BID RINA Insulin Human Lispro 0 unit 05/16/24 23:00 05/24/24 12:34 Insulin Lispro (Admelog) 1 Unit/0.01 Ml Unit SC 06/15/24 22:59 8 unit ACHS RINA Administration Protocol Levofloxacin 500 mg 05/21/24 10:15 05/24/24 11:05 Levofloxacin 250 Mg Tablet PO 05/28/24 10:14 Not Given QDAY [facility] Lorazepam 2 mg 05/22/24 08:10 Lorazepam 0.5 Mg Tablet PO 05/27/24 08:09 HS PRN INSOMNIA Losartan Potassium 50 mg 05/22/24 09:00 05/24/24 11:06 Losartan Potassium 25 Mg Tablet PO 06/21/24 08:59 Not Given DAILY [facility] Metolazone 10 mg 05/23/24 09:00 05/24/24 10:54 Metolazone 2.5 Mg Tablet PO 06/22/24 08:59 Not Given QDAY [facility] Metoprolol Succinate 100 mg 05/10/24 19:00 05/24/24 11:06 Metoprolol Succinate Xl 25 Mg Tabcr PO 06/09/24 18:59 Not Given QDAY [facility] Metronidazole 500 mg 05/19/24 14:00 05/24/24 14:36 Metronidazole 250 Mg Tablet PO 05/26/24 13:59 Not Given TID RINA Mometasone Furoate 2 gm 05/21/24 14:00 05/24/24 14:36 Mometasone Furoate Cr 0.1% 15 Gm Tube TOP 06/20/24 13:59 1 appln TID RINA Administration Ondansetron HCl 4 mg 05/10/24 17:38 Ondansetron Inj 2 Mg/Ml Inj 2 Ml IV 06/09/24 17:37 Q6H PRN NAUSEA OR VOMITING Protocol Pregabalin 150 mg 05/18/24 14:00 05/24/24 06:15 Pregabalin 75 Mg Capsule PO 06/17/24 05:59 150 mg TID RINA Administration Simethicone 80 mg 05/18/24 21:45 05/18/24 21:52 Simethicone 80 Mg Chew PO 06/17/24 21:44 80 mg QID PRN Administration GAS Plan In summary: 84-year-old male with PMHx of DM, CAD, HFpEF, CVA with BL endarterectomy, pulmonary embolism on ELIQUIS, HTN, CAROLYN, cirrhosis, recent hospitalization for CHF exacerbation and left groin abscess presented following ground-level fall, admitted for acute hypoxic respiratory failure secondary to E. coli cellulitis and bacteremia sepsis. Continue diuresis with BUMEX and METOLAZONE, continued on FLAGYL and LEVOFLOXACIN for left groin cellulitis and bacteremia. I&D was done. Sepsis resolved, leukocytosis improving. Additionally, patient be managed for ZENY with nephrology, Dr. Burger following. Pending authorization for [facility]. Patient otherwise stable for discharge. Appreciate recommendations from nephrology, cardiology, and general surgery teams # Sepsis ? resolved # E. coli bacteremia # Abscess of left groin, s/p I&D 05/11 # Benign scrotal swelling On admission 4/4 SIRS positive, Pro-Calc at 12, normal lactic acid Scrotal swelling, warmth and erythema on exam, ultrasound negative for torsion or mass but showed wall thickening, CT showed air density in soft tissue of left groin extending to anterior lateral upper thigh No surgical intervention indicated per surgery, Dr. Haney Blood and groin wound cultures grew E. coli Repeat blood cx negative after 5 days S/p CEFEPIME and VANCOMYCIN Continued on FLAGYL and LEVOFLOXACIN Sepsis resolved, leukocytosis improving Patient still experiencing significant pain and discomfort ? Continue LEVOFLOXACIN 500 mg daily ? Continue FLAGYL 500 mg TID ? Continue TYLENOL for pain and fever ? Continue NORCO 10/325 q.6h. PRN ? Continue DILAUDID 1 mg q.4h. PRN ? Continue wound care and wound VAC # Acute decompensated systolic heart failure # HFpEF, EF 55 to 60% 04/2024 # CAROLYN and OHS # ZENY on CKD IIIB - improving Patient found desatting to 84% in ED. At baseline he is on BUMEX 1 mg BID and SPIRONOLACTONE 50 mg daily BID Patient noncompliant with home CPAP CXR showed mild to moderate CHF with prominent vasculature Continued on diuresis and fluid/salt restriction Fluid overload on exam with 2+ edema, resolved Creatinine peaked at 2.4, previously improving, today creased to 2.1 Total 24 L negative since admission ? Holding BUMEX 2 mg IV BID 2/2 ZENY ? Holding METOLAZONE 10 mg BID 2/2 ZENY ? Continue LOSARTAN 50 mg daily ? Continue METOPROLOL 100 mg daily ? Fluid restriction to 1500 cc, strict FREIDA's, low-sodium ? Maintain potassium greater than 4, magnesium greater than 2 ? DUONEB as needed ? Follow processing tech recommendations # Hypertensive emergency ? resolved # Troponinemia, NSTEMI type II # History of CAD # Primary hypertension # Hyperlipidemia Presentation BP 180/102, initially started on NICARDIPINE drip, discontinued Troponin peaked 0.103, resolved EKG no acute ischemic changes BP improved diuresis and current meds, BP 119/57, HR 64 ? Continue LOSARTAN 50 mg daily ? Continue ATORVASTATIN 80 mg daily ? Daily vitals # T2 Insulin-dependent diabetes, poorly controlled Admission glucose 461, 04/2024 A1c 13.6 GLUCOSE 118 yesterday, today GLUCOSE 426 Unclear if patient is compliant with diet restriction, although he is receiving his INSULIN as scheduled ? Holding home OZEMPIC ? Increase INSULIN GLARGINE 95 units BID ? Continue INSULIN sliding scale ? Accu-Cheks ? Carb consistent diet ? Diabetic education provided # Fasciculation Complains of generalized fasciculation while moving in bed Noted occasional muscle twitching while turning around in bed on exam Possibly related to rapid change in GLUCOSE vs. OPIOID withdrawal/dependency versus muscle weakness 2/2 prolonged bedridden Appeared to improve with pain medication Improved after DIAZEPAM 10 mg x 1 ? Holding LYRICA ? Resumed home LORAZEPAM 2 mg chest ? Started CYCLOBENZAPRINE 10 mg p.o. daily # History of PE ? Continue APIXABAN 5 mg BID # Incidental findings 25 mm right adrenal nodule on CT 27 mm left thyroid nodule on CT Significant hepatomegaly, fatty infiltrate on CT ? Recommended follow-up outpatient for these followings Health maintenance Diet: Carb consistent GI prophylaxis: Not needed DVT prophylaxis: ELIQUIS Antibiotics: FLAGYL and LEVOFLOXACIN CODE STATUS: Full code Disposition: DC to [facility] facility on oral ANTIBIOTICS Attending Provider Attestation/Addendum I reviewed labs, imaging, EKG, home medications and prior available records. Face to face evaluation was performed by me. I have personally examined the patient and discussed assessment and plan with the IM team. I reviewed the resident note and agree with the plan with exceptions as below. Sepsis secondary to left groin abscess: Wound VAC in place. Continue levofloxacin and metronidazole. Patient was accepted to SNF. CHF exacerbation: In the setting of history of heart failure with preserved EF. He is currently euvolemic. Continue home Bumex. Monitor I's and O's. Uncontrolled diabetes mellitus with hyperglycemia: Insulin-dependent. Requiring frequent up titration of his insulin doses. Monitor fingersticks. Generalized muscle spasms: New complication on 05/24. Etiology is unclear. Held Lyrica. Gave IV diazepam. Started muscle relaxant.
[2024-05-24] MEDS: CYCLObenzaPRINE 5 MG TABLET 10 MG PO (16:51)
[2024-05-24] MEDS: HYDROMORPHONE HCL 2 MG TABLET 1 MG PO (18:31)
[2024-05-24] MEDS: ATORVASTATIN CALCIUM 20 MG TABLET 80 MG PO (21:00)
[2024-05-24] MEDS: APIXABAN 2.5 MG TABLET 5 MG PO (21:01)
[2024-05-24] MEDS: amLODIPine BESYLATE 5 MG TABLET PO (21:01)
[2024-05-24] MEDS: INSULIN GLARGINE (Lantus) 5 UNIT/0.05 ML (PER 5 UNITS) 95 UNIT SC (21:08)
[2024-05-25] VITALS: BP 143/74; PULSE 74; RESP 18; TEMP 36; O2SAT 99
[2024-05-25 04:00] VITALS: BP 157/82; PULSE 75; RESP 19; TEMP 36.7; O2SAT 99
[2024-05-25] MEDS: CYCLObenzaPRINE 5 MG TABLET 10 MG PO (05:28)
[2024-05-25] MEDS: metroNIDAZOLE 250 MG TABLET 500 MG PO (05:28)
[2024-05-25] MEDS: HYDROMORPHONE HCL 2 MG TABLET 1 MG PO (05:32)
[2024-05-25] MEDS: MOMETASONE FUROATE 0.1% 2 GM TOP (05:34)
[2024-05-25] MEDS: CLOTRIMAZOLE CR 1% 30 GM TUBE TOP (05:34)
--- NOTE | 2024-05-25 05:36 | PC.NURSE ---
RN removed 1mg dilaudid PO from pyxis. RN was unuable to scan medication due to the barcode being ineligible. Medication was manually inputted.
[2024-05-25 06:00] VITALS: BMI 44.9
[2024-05-25 06:06] LABS: Basophils # (Auto) 0.1 Thou/mm3 (0.0-0.2); Basophils % (Auto) 1 % (0-2.5); Eosinophils # (Auto) 0.2 Thou/mm3 (0.0-0.5); Eosinophils % (Auto) 2 % (0-10); Hematocrit 26.1 % (41.0-53.0); Immature Granulocytes % (Auto) 4 % (0-0); Immature Granulocytes Auto 0.57 Thou/mm3 (0.00-0.00); Lymphocytes # (Auto) 1.9 Thou/mm3 (1.0-4.8); Lymphocytes % (Auto) 14 % (10-50); Mean Corpuscular HGB Conc 30.3 g/dl (31.0-37.0); Mean Corpuscular Hemoglobin 25.2 pg (25.0-35.0); Mean Corpuscular Volume 83 fL (80-100); Monocytes # (Auto) 1.3 Thou/mm3 (0.0-0.8); Monocytes % (Auto) 10 % (0-12); Neutrophils # (Auto) 9.7 Thou/mm3 (1.8-7.7); Neutrophils % (Auto) 71 % (37-80); Nucleated Red Blood Cell % 0 /100 WBC (0); Platelet Count 327 Thou/mm3 (140-440); RDW Standard Deviation 46.4 fL (35.1-43.9); Red Blood Count 3.14 Miln/mm3 (4.50-5.90); White Blood Count 13.8 Thou/mm3 (3.8-10.6)
[2024-05-25 06:08] LABS: Hemoglobin 7.9 g/dL (13.5-16.0)
[2024-05-25 06:38] LABS: Alanine Aminotransferase 15 U/L (10-49); Albumin, Serum 3.2 gm/dL (3.5-5.0); Albumin/Globulin Ratio 0.8 (1.2-2.2); Alkaline Phosphatase 135 U/L (46-116); Anion Gap 7 (7-16); Aspartate Amino Transferase 31 U/L (0-34); BUN/Creatinine Ratio 42 Ratio (12-20); Bilirubin,Total < 0.2 mg/dL (0.3-1.2); Blood Urea Nitrogen 76 mg/dL (9-23); Calcium 8.6 mg/dL (8.3-10.6); Calcium (Corrected) 9.2 mg/dL (8.5-10.1); Carbon Dioxide 34.4 mMol/L (20.0-31.0); Chloride 94 mMol/L (98-107); Creatinine (Component) 1.8 mg/dL (0.6-1.3); Estimated Creatinine Clearance 62.3 mL/min (>60); Globulin 3.9 gm/dL (2.3-3.5); Glucose 165 mg/dL (74-106); Magnesium 2.2 mg/dL (1.6-2.6); Osmolality,Calculated 296 (275-295); Phosphorous 4.9 mg/dL (2.4-5.1); Potassium 3.8 mMol/L (3.4-5.1); Sodium 135 mMol/L (136-145); Total Protein 7.1 gm/dL (5.7-8.2); eGFR 44 See Note
[2024-05-25 07:34] VITALS: BP 133/66; PULSE 73; RESP 14; TEMP 36.2; O2SAT 95
[2024-05-25] MEDS: INSULIN LISPRO (AdmeLOG) 1 UNIT/0.01 ML UNIT SC ×2 (07:58→12:11)
[2024-05-25] MEDS: INSULIN GLARGINE (Lantus) 5 UNIT/0.05 ML (PER 5 UNITS) 95 UNIT SC (09:40)
[2024-05-25 09:54] VITALS: BP 133/66; PULSE 73
[2024-05-25] MEDS: METOPROLOL SUCCINATE XL 25 MG TABCR 100 MG PO (09:54)
[2024-05-25] MEDS: LOSARTAN POTASSIUM 25 MG TABLET 50 MG PO (09:54)
[2024-05-25] MEDS: APIXABAN 2.5 MG TABLET 5 MG PO (09:55)
[2024-05-25 09:56] VITALS: BP 133/66; PULSE 73
[2024-05-25] MEDS: BUMETANIDE 0.5 MG TABLET 2 MG PO (09:56)
[2024-05-25] MEDS: LEVOFLOXACIN 250 MG TABLET 500 MG PO (09:56)
[2024-05-25] MEDS: HYDROcodone/APAP 5/325 TABLET 1 TAB PO (09:56)
[2024-05-25] MEDS: BALSAM PERU/CASTOR OIL (Venelex) 60 GM TUBE TOP (10:00)
[2024-05-25 11:56] VITALS: BP 130/63; PULSE 71; RESP 12; TEMP 36.1
--- NOTE | 2024-05-25 13:00 | ESDS_ITS ---
<Statement entered by Jay Christiansen MD - 05/25/24 15:52> Patient was examined with the team including attending physician. Note reviewed, I agree with the discharge plan as documented. - Jay Christiansen MD, PGY 2 Planned Discharge Date 05/25/24 DS: Providers Provider Date of admission: 05/10/24 17:32 Primary care physician: Physician No Primary/Family Admitting Provider: Sabino Whitfield MD Attending Provider on Admission: Hugh Parada MD Consults: 05/10/24 17:57 Consult to General Surgery Routine Comment: Consulting Provider: Farzana Root 05/12/24 08:14 Referral Wound Care Routine Comment: 05/12/24 08:15 Referral Nutritional Services Routine Comment: 05/12/24 11:17 Consult to Nephrology Routine Comment: Consulting Provider: Stephenie Burger 05/19/24 11:21 Consult to General Surgery Stat Comment: scortal pain, swelling Consulting Provider: Nieves Tinajero 05/21/24 10:07 Referral Physical Therapy Routine Comment: Physician Instructions: 05/22/24 09:30 Referral Wound Care Routine Comment: Instructions: sacrum and left heel 05/22/24 09:31 Referral Nutritional Services Routine Comment: Instructions: DTI to sacrum and left heel Attending Provider on DC: Hugh Parada MD Discharging Provider: Hugh Parada MD DS: Diagnosis Problem List Completed Was Problem List Reviewed/Reconciled?: Yes Hospital Course Hospital Course Hospital course: We had the pleasure of caring for Mr. Fisher, a 54-year-old male with PMHx of IDDM, CAD, HFpEF, CVA with bilateral endarterectomy, [place] embolism on ELIQUIS, HTN, CAROLYN, cirrhosis, recent hospitalization with CHF exacerbation and left groin abscess who presented after ground-level fall. Patient had AMS on admission however in consciousness BiPAP in ED. Patient admitted for acute hypoxic respiratory failure secondary to cellulitis sepsis. He underwent I&D with general surgery and continued ANTIBIOTICS. Sepsis resolved. Patient started on BUMEX and follows up with CHF exacerbation. Additionally, patient had a ZENY which improved with diuresis, nephrology team was following. Patient also presented with hypertensive emergency with transient troponinemia resolved after fluid management with medications. Initially, dietitian was consulted for diabetes mellitus and glycemic control, INSULIN regimen has been adjusted as prescribed. Patient developed muscle twitching, likely due to opiate dependency and withdrawals. He was started on CYCLOBENZAPRINE and resumed home LORAZEPAM. Advised patient to discuss concerning OPIOID dependency with PCP. Patient stable at this time discharge, he will continue rehab and wound care at [facility]. PATIENT INSTRUCTIONS: ? Follow-up with PCP within 1 week to discharge ? Decreased LOSARTAN to 50 mg daily (dose adjusted) ? Increased ATORVASTATIN to 80 mg daily (dose adjusted) ? Continue Glargine 95 units BID + Lispro 15 units TID + sliding scale insulin ? HOLD Bumex and METOLAZONE for today, resume tomorrow - Take Metronidazole q8H + Levofloxacin daily as prescribed to complete antibiotic course - Continue wound vac, follow up with Dr tinajero and wound care - Needs physical therapy at the rehab ? Return to emergency room if symptoms worsen, do not improve or new symptoms develop Medication instructions: CONTINUE taking the following medications ? ATORVASTATIN 80 mg daily at night, will change her dose from 40 mg to 80 mg ? CYCLOBENZAPRINE 5 mg twice daily ? INSULIN DEGLUDEC 95 units twice daily ? LEVOFLOXACIN 500 mg daily ? LOSARTAN 50 mg daily ? METRONIDAZOLE 500 mg every 8 hours daily ? APIXABAN 5 mg twice daily ? BUMETANIDE 1 mg twice daily ? COMBIVENT RESPIMAT 20-100 mcg inhaler ? HYDROCODONE ? ACETAMINOPHEN 10-325 mg every 4 hours as needed for pain ? LORAZEPAM 2 mg twice daily ? CALMOSEPTINE ointment 4 times daily as needed ? METOCLOPRAMIDE 5 mg every 6 hours ? METOPROLOL extended release 100 mg daily ? MORPHINE 15 mg daily as needed for pain ? OZEMPIC 2 mg injections weekly ? PREGABALIN 150 mg 3 times daily ? Senna 8.6 mg twice daily as needed for constipation STOP taking the following medication: ? INSULIN aspartate 100 units ? INSULIN GLARGINE 15 units daily, continue with the new dose of 95 units DICLOFENAC twice daily as above ? LOSARTAN 100 mg, continue with the new dose of 50 mg daily as above ? SPIRONOLACTONE 50 mg twice daily ADMISSION DIAGNOSES: # Sepsis ? resolved # E. coli bacteremia # Abscess of left groin, s/p I&D 05/11 # Benign scrotal swelling # Acute decompensated systolic heart failure # HFpEF, EF 55 to 60% 04/2024 # CAROLYN and OHS # ZENY on CKD IIIB - improving # Hypertensive emergency ? resolved # Troponinemia, NSTEMI type II # History of CAD # Primary hypertension # Hyperlipidemia # T2 Insulin-dependent diabetes, poorly controlled # Fasciculation # History of PE # Incidental findings Patient case was discussed with attending, Hugh Parada MD and senior residents Dr. Patel and Dr. Christiansen. Mayelin Lockhart DO PGYI Time Spent with Patient Time attestation: Total time spent providing and/or coordinating discharge services: Greater than 35 minutes. Exam Vital Signs Temp Pulse Resp BP Pulse Ox O2 Del Method O2 Flow Rate 96.9 F 71 12 130/63 95 Room Air 1 05/25/24 11:56 05/25/24 11:56 05/25/24 11:56 05/25/24 11:56 05/25/24 07:34 05/25/24 11:56 05/24/24 16:00 FiO2 35 05/24/24 16:00 Narrative Exam GENERAL APPEARANCE: Patient seems to be comfortable, adequately hydrated and nourished. HEENT: EOMI, PERRLA NECK: Neck supple, no JVD or bruit CARDIOVASCULAR: Heart regular, no murmurs LUNGS/CHEST: Chest clear to auscultation. No rales, rhonchi, wheezing ABDOMEN: Soft, nontender, nondistended. No masses. Normal bowel sounds. EXTREMITIES: No lower extremity edema bilaterally. SKIN: Wound VAC noted in the left groin area. Decubitus ulcer in the buttock. NEUROLOGICAL : Alert and awake Discharge Plan Plan Patient Disposition: Xfer Skilled Nsg Fac (SNF) Disposition Comment: [facility] Patient condition on transfer: Stable Care Plan Goals: Continue wound vac Needs physical therapy at the rehab Prescriptions/Referrals Prescriptions/Med Rec: New atorvastatin 80 mg tablet 80 mg PO QPM 30 Days Qty: 30 0RF losartan 50 mg tablet 50 mg PO QDAY Qty: 30 0RF cyclobenzaprine 5 mg tablet 5 mg PO BID 30 Days Qty: 60 0RF (DME) blood-glucose meter [Blood Glucose Monitoring] Kit See Rx Instructions .Route Qty: 1 0RF Rx Instructions: As directed insulin degludec 100 unit/mL (3 mL) insulin pen 95 unit subcut BID 30 Days Qty: 57 0RF Continued metoprolol succinate 100 mg tablet extended release 24 hr 100 mg PO DAILY hydrocodone-acetaminophen 10-325 mg tablet 1 tab PO Q4H lorazepam 2 mg tablet 2 mg PO BID pregabalin 150 mg capsule 150 mg PO TID Combivent Respimat 20-100 mcg/actuation mist 2 puff INHALATION Q8HR PRN (Reason: Shortness Of Breath) Ozempic 2 mg/dose (8 mg/3 mL) pen injector 2 mg SUBCUT QWEEK Rx Instructions: Wednesday sennosides [senna] 8.6 mg tablet 8.6 mg PO BID PRN (Reason: constipation) Qty: 30 0RF (DME) FreeStyle Liana 2 [place] Misc See Rx Instructions .Route Qty: 1 0RF Rx Instructions: As directed (DME) FreeStyle Liana 2 Sensor Kit See Rx Instructions .Route Qty: 1 0RF Rx Instructions: As directed morphine 15 mg tablet extended release 15 mg PO QDAY PRN (Reason: Pain) bumetanide 1 mg tablet 1 mg PO BID 30 Days Qty: 7 3RF metoclopramide HCl 5 mg tablet 5 mg PO Q6H 30 Days Qty: 120 3RF apixaban 5 mg tablet 5 mg PO BID 30 Days Qty: 60 0RF menthol-zinc oxide [Calmoseptine] 0.44-20.6 % ointment 1 applic topical QID PRN (Reason: skin irritation) Qty: 113 0RF Discontinued atorvastatin 40 mg tablet 40 mg PO HS losartan 100 mg tablet 100 mg PO DAILY insulin glargine [Lantus U-100 Insulin] 100 unit/mL solution 50 unit SUBCUT BID Qty: 10 0RF insulin aspart U-100 [Novolog U-100 Insulin aspart] 100 unit/mL solution 1 sliding scale dose subcut USEASDIRECTD Qty: 10 3RF hydrocodone-acetaminophen 10-325 mg tablet hydrocodone-acetaminophen 10-325 mg tablet 1 tab PO 6 TIMES DAILY PRN (Reason: Pain (Scale Score 7-10)) spironolactone 50 mg tablet 50 mg PO BID Referrals: No Primary/Family,Physician [Primary Care Provider] - Patient/Caregiver Discharge Instructions Other Discharge Activity Instructions:: ? Follow-up with PCP within 1 week to discharge ? Decreased LOSARTAN to 50 mg daily (dose adjusted) ? Increased ATORVASTATIN to 80 mg daily (dose adjusted) ? Continue Glargine 95 units BID + Lispro 15 units TID + sliding scale insulin ? HOLD Bumex and METOLAZONE for today, resume tomorrow - Take Metronidazole q8H + Levofloxacin daily as prescribed to complete antibiotic course - Continue wound vac, follow up with Dr tinajero and wound care - Needs physical therapy at the rehab ? Return to emergency room if symptoms worsen, do not improve or new symptoms develop Medication instructions: CONTINUE taking the following medications ? ATORVASTATIN 80 mg daily at night, will change her dose from 40 mg to 80 mg ? CYCLOBENZAPRINE 5 mg twice daily ? INSULIN DEGLUDEC 95 units twice daily ? LEVOFLOXACIN 500 mg daily ? LOSARTAN 50 mg daily ? METRONIDAZOLE 500 mg every 8 hours daily ? APIXABAN 5 mg twice daily ? BUMETANIDE 1 mg twice daily ? COMBIVENT RESPIMAT 20-100 mcg inhaler ? HYDROCODONE ? ACETAMINOPHEN 10-325 mg every 4 hours as needed for pain ? LORAZEPAM 2 mg twice daily ? CALMOSEPTINE ointment 4 times daily as needed ? METOCLOPRAMIDE 5 mg every 6 hours ? METOPROLOL extended release 100 mg daily ? MORPHINE 15 mg daily as needed for pain ? OZEMPIC 2 mg injections weekly ? PREGABALIN 150 mg 3 times daily ? Senna 8.6 mg twice daily as needed for constipation STOP taking the following medication: ? INSULIN aspartate 100 units ? INSULIN GLARGINE 15 units daily, continue with the new dose of 95 units DICLOFENAC twice daily as above ? LOSARTAN 100 mg, continue with the new dose of 50 mg daily as above ? SPIRONOLACTONE 50 mg twice daily Wound care: 1) Left groin surgical wound with undermining: irrigate with normal saline, pat dry, fill underminig with white foam, remaining wound bed with black foam. Skin prep, drape and trac pad at 125mmhg continous suction. Change Mon,wed, fri and PRN for suction off greater than 2 hours. May use NS wet/dry packing BID until wound vac avialiable. 2) Deep tissue injury to sacrum: cleanse with wound cleanser, pat dry, apply Ve nelex to wound bed. Skin prep to wound edges and secure with allyven dressing BID/PRN for soiling or falling of dressing Side to side repositioning except for meals. 3) Deep tissue injury to left heel: swab with betadine BID and cover with allyven dressing. Negative heel pressure bilaterally at all times. Education Materials: Diabetes Exercise Plan, Diabetes Carbs Fats Protein, ED Pa in, Acute, Uncertain Cause Print Language: Gabonese Discharge Order Discharge Orders: Discharge (Routine); Ordered 05/24/24 Ordered By: Hugh Parada Quality Discharge Quality Measures VTE prophylaxis Attestestation MD Attestation I reviewed labs, imaging, EKG, home medications and prior available records. Face to face evaluation was performed by me. I have personally examined the patient and discussed assessment and plan with the IM team. I reviewed the resident note and agree with the plan with exceptions as below. Sepsis secondary to left groin abscess: Continue wound VAC. Received a course of levofloxacin and metronidazole. Patient was accepted to SNF. Follow-up with surgery in 1 week after discharge. CHF exacerbation: In the setting of history of heart failure with preserved EF. He is currently euvolemic. Continue home Bumex. Continue losartan and metoprolol. Outpatient follow-up with cardiology. Uncontrolled diabetes mellitus with hyperglycemia: Insulin-dependent. Continue Lantus twice daily plus lispro with meals. Monitor fingersticks. Generalized muscle spasms: Improved. New complication on 05/24. Etiology is unclear but could be related to fluctuation in glucose level versus opiate withdrawal. Resumed home opiates. Held Lyrica. Gave IV diazepam. Started muscle relaxant. Will discharge on home opiate medication dose plus cyclobenzaprine. Time spent is 40 minutes. More than 50% of the time was spent on patient education and coordination of care.
--- NOTE | 2024-05-25 15:19 | ESPR_ITS ---
Documentation for date of: 05/25/24 Subjective Subjective Interval history: Mr. Fisher is a 54-year-old male with coronary artery disease, congestive heart failure, morbid obesity, suspected obstructive sleep apnea, obesity hypoventilation, CVA with bilateral endarterectomy, PE, on Eliquis, hypertension, cirrhosis, who presented to the emergency room on 05/10/2024 with weakness and confusion. The patient was also found extremely volume overloaded and was started on Bumex at 2 mg per hour. The patient continues to have good urine output and marked improvement in anasarca and he is currently on IV Bumex and metolazone. He is feeling much stronger today. Denies any chest pain, shortness of breath. He has a wound VAC in the left groin and is causing his pain. Requesting pain medications [id number]. Also noted to have decubitus ulcer stage II on the buttock. Labs, medications have been reviewed. 05/22/2024 Patient was seen and examined by the bedside. No acute overnight events. Patient reports having groin pain and back pain, reports improvement in shortness of breath and edema. UO is 3,6L. Negative balance is 1,9L. Patient is set to be discharged today to SNF, on bumetanide 2 mg twice daily and metolazone 10 Mg daily. 05/25/24: Patient was seen and examined by the bedside. No acute overnight events. Patient is resting in the bed comfortably. Patient was started on Bumex 2 mg daily. Patient was deemed medically stable for discharge to SNF. Exam Vital Signs Temp Pulse Resp BP Pulse Ox O2 Del Method O2 Flow Rate 96.9 F 71 12 130/63 95 Room Air 1 05/25/24 11:56 05/25/24 11:56 05/25/24 11:56 05/25/24 11:56 05/25/24 07:34 05/25/24 11:56 05/24/24 16:00 FiO2 35 05/24/24 16:00 Narrative Exam Physical Exam General: Awake and in no acute distress. Conversational and non-toxic appearing. BMI 45. HEENT: Normocephalic, atraumatic, mucous membranes moist. Heart: Regular rate and rhythm, no murmurs. Lungs: Clear to auscultation with no wheezing or crackles. Abdomen: Soft, nondistended, nontender, positive bowel sounds. ?No guarding or rebound tenderness. Neurologic: Alert and oriented x3, no gross neurological deficit, and patient able to move all 4 extremities. Extremities: No edema. Skin: No rash or ecchymoses. Objective Labs 05/25/24 05:24 05/25/24 05:24 Labs: Laboratory Results - last 24 hr 05/25/24 05:24 WBC 13.8 H RBC 3.14 L Hgb 7.9 L Hct 26.1 L MCV 83 MCH 25.2 MCHC 30.3 L RDW Std Deviation 46.4 H Plt Count 327 Neut % (Auto) 71 Lymph % (Auto) 14 [place] % (Auto) 10 Eos % (Auto) 2 Baso % (Auto) 1 Neut # (Auto) 9.7 H Lymph # (Auto) 1.9 [place] # (Auto) 1.3 H Eos # (Auto) 0.2 Baso # (Auto) 0.1 Immature Gran # (Auto) 0.57 H Absolute Nucleated RBC 0.00 Immature Gran % 4 H Nucleated RBC % 0 Sodium 135 L Potassium 3.8 Chloride 94 L Carbon Dioxide 34.4 H Anion Gap 7 BUN 76 H Creatinine 1.8 H Estim Creat Clear Calc 62.3 eGFR 44 L BUN/Creatinine Ratio 42 H Glucose 165 H D Calculated Osmolality 296 H Calcium 8.6 Corrected Calcium 9.2 Phosphorus 4.9 Magnesium 2.2 Total Bilirubin < 0.2 L AST 31 ALT 15 Alkaline Phosphatase 135 H Total Protein 7.1 Albumin 3.2 L Globulin 3.9 H Albumin/Globulin Ratio 0.8 L ABG Interpretation ABG results: 05/10/24 05/13/24 12:26 11:23 ABG pH 7.34 L 7.36 ABG pCO2 43 40 ABG pO2 127 H 75 L D ABG HCO3 23 23 ABG O2 Saturation 100 H 94 ABG Base Excess -2 -3 Quality Measures Quality Measures VTE prophylaxis Assessment & Plan Plan # Acute on chronic kidney disease, now improved. #Type 2 diabetes with nephrotic syndrome whose uPCR is about 9.9 grams. # Stage IIIB chronic kidney disease. #Decompensated congestive heart failure-better now #Anasarca, now improved. #Hypertension. Patient was on Bumex 2 mg p.o. twice daily with metolazone 10 mg qd. for effective diuresis. Creatinine still elevated 1.8. He has good urine output. Plan: -will start Bumex 2mg daily, metholazone on hold. -Continue losartan 50 mg p.o. daily. Patient was discharged to SNF. Attending Provider Attestation/Addendum Patient seen and examined with resident physician Dr. Booker Note reviewed, agree with findings and recommendations. BUN and creatinine tad better than yesterday. Will resume his Bumex today. Patient with significant anasarca and responded well to diuretics. Did explain to the patient that he will be left with some kidney impairment.
== END 2024-05-25 13:04 | disposition skilled nursing facility (03) | DRG 720 ==
LOC: SERX 17:46 → S2NX 23:17 → SERHOLD 05-15 10:39 → S2NX 05-15 10:39 → S3SX 05-15 10:40
PROVIDERS: Internal Medicine; Internal Medicine Nephrology; Student in an Organized Health Care Education/Training Program; Surgery; Admitting Provider Student in an Organized Health Care Education/Training Program; Emergency Provider Emergency Medicine; Visit Provider Student in an Organized Health Care Education/Training Program
PROC: 0JBM0ZZ Excision of Left Upper Leg Subcutaneous Tissue and Fascia, Open Approach (ICD-10-PCS; principal; 2024-05-11 08:30)
DX: A41.51 Sepsis due to Escherichia coli [E. coli] (principal); Z68.42 Body mass index [BMI] 45.0-49.9, adult; N17.9 Acute kidney failure, unspecified; I16.1 Hypertensive emergency; J96.01 Acute respiratory failure with hypoxia; I11.0 Hypertensive heart disease with heart failure; E66.2 Morbid (severe) obesity with alveolar hypoventilation; L02.214 Cutaneous abscess of groin; I50.43 Acute on chronic combined systolic (congestive) and diastolic (congestive) heart failure; J44.9 Chronic obstructive pulmonary disease, unspecified; L02.416 Cutaneous abscess of left lower limb; L03.314 Cellulitis of groin; E11.65 Type 2 diabetes mellitus with hyperglycemia; K74.60 Unspecified cirrhosis of liver; I25.10 Atherosclerotic heart disease of native coronary artery without angina pectoris; E11.22 Type 2 diabetes mellitus with diabetic chronic kidney disease; E11.319 Type 2 diabetes mellitus with unspecified diabetic retinopathy without macular edema; E11.40 Type 2 diabetes mellitus with diabetic neuropathy, unspecified; D63.1 Anemia in chronic kidney disease; E04.1 Nontoxic single thyroid nodule; E27.8 Other specified disorders of adrenal gland; R65.20 Severe sepsis without septic shock; E87.1 Hypo-osmolality and hyponatremia; E78.00 Pure hypercholesterolemia, unspecified; I21.A1 Myocardial infarction type 2; F11.23 Opioid dependence with withdrawal; L89.302 Pressure ulcer of unspecified buttock, stage 2; Z95.5 Presence of coronary angioplasty implant and graft; I25.2 Old myocardial infarction; Z86.73 Personal history of transient ischemic attack (TIA), and cerebral infarction without residual deficits; Z86.711 Personal history of pulmonary embolism; Z87.891 Personal history of nicotine dependence; Z91.199 Patient's noncompliance with other medical treatment and regimen due to unspecified reason; Z86.718 Personal history of other venous thrombosis and embolism; Z79.4 Long term (current) use of insulin; Z79.899 Other long term (current) drug therapy; Z79.01 Long term (current) use of anticoagulants; Z79.85 Long-term (current) use of injectable non-insulin antidiabetic drugs
CPT/HCPCS: 36415; 36600; 70450; 71045; 71275; 74177; 76705; 76870; 80048; 80053; 80069; 80076; 80202; 80307; 81001; 82140; 82550; 82570; 82803; 83036; 83540; 83550; 83605; 83735; 83880; 84100; 84145; 84156; 84484; 84550; 85025; 85379; 85652; 86140; 87040; 87070; 87075; 87077; 87081; 87186; 87205; 87400; 87634; 87811; 93005; 94640; 94660; 96365; 96366; 96367; 96375; 96376; 97163; 99291; A4649; A9270; J0131; J0330; J0360; J0692; J0696; J1120; J1815; J1940; J2250; J2270; J2371; J2404; J2405; J2543; J2704; J2765; J2919; J3010; J3360; J3370; J3475; J3490; J7030; J7050; Q5106; Q9967; J1805; J1920

== ENCOUNTER 2024-06-24 22:39 | Inpatient (IN) | payer MEDICAID, SELFPAY ==
[2024-06-24 22:54] VITALS: PULSE 84; RESP 23; O2SAT 96
[2024-06-24 22:55] VITALS: BP 196/99; PULSE 80; RESP 19; TEMP 37.1; O2SAT 98
[2024-06-24 22:57] VITALS: BMI 41.5
--- NOTE | 2024-06-24 23:11 | XR_ITS ---
Examination: AP chest single view Technique one AP portable supine chest single view Exam date and time: June 24, 1999 2550 1:00 PM Indications: Rash all over the body Findings: Moderate enlargement cardiac contour Moderate vascular congestion No guillermina pulmonary edema No lobar pneumonia Impression: Moderate enlargement cardiac contour Moderate vascular congestion
--- NOTE | 2024-06-24 23:11 | XR_ITS ---
Examination: Forearm, right, 2 views. Technique: Forearm, AP, lateral 2 views Date and time of exam: June 24, 2024 1144 hrs. Indications: Rash to perform this week Findings: No fracture or dislocation No cortical bone destruction No foreign body Impression: No cortical bone destruction
--- NOTE | 2024-06-24 23:12 | XR_ITS ---
Examination: Left elbow 2 views Technique: Elbow AP, lateral 2 views Exam date and time: June 24, 2024 at 1138 hrs. Indications: Open wound on the elbow. This week Findings: No fracture or dislocation No cortical bone destruction No opaque foreign body Impression: No cortical bone destruction
[2024-06-25] VITALS (17 sets, daily range): BP systolic 137–179; BP diastolic 69–108; PULSE 60–87; RESP 12–171; TEMP 35.8–36.6; O2SAT 90–100; BMI 47.0
[2024-06-25 00:27] LABS: Lactate (Lactic Acid) 1.1 mMol/L (0.4-2.0)
[2024-06-25 00:29] LABS: Basophils % (Auto) 0 % (0-2.5); Eosinophils # (Auto) 0.4 Thou/mm3 (0.0-0.5); Eosinophils % (Auto) 3 % (0-10); Hematocrit 22.4 % (41.0-53.0); Immature Granulocytes % (Auto) 2 % (0-0); Immature Granulocytes Auto 0.28 Thou/mm3 (0.00-0.00); Lymphocytes # (Auto) 1.3 Thou/mm3 (1.0-4.8); Lymphocytes % (Auto) 10 % (10-50); Mean Corpuscular HGB Conc 29.9 g/dl (31.0-37.0); Mean Corpuscular Hemoglobin 25.5 pg (25.0-35.0); Mean Corpuscular Volume 85 fL (80-100); Monocytes % (Auto) 7 % (0-12); Neutrophils % (Auto) 77 % (37-80); Nucleated Red Blood Cell % 0 /100 WBC (0); Platelet Count 262 Thou/mm3 (140-440); RDW Standard Deviation 45.4 fL (35.1-43.9); Red Blood Count 2.63 Miln/mm3 (4.50-5.90); White Blood Count 12.9 Thou/mm3 (3.8-10.6)
[2024-06-25 00:34] LABS: Hemoglobin 6.7 g/dL (13.5-16.0)
--- NOTE | 2024-06-25 00:45 | EDNOTE_ITS ---
ED Skin Abcess FB-RME/HPI General Chief complaint: Skin/Abscess/Foreign Body Stated complaint: RASH Time Seen by Provider: 06/24/24 23:03 Source: patient and EMS Arrival date/time: 06/24/24 22:39 Mode of arrival: EMS Limitations: no limitations RME / HPI RME / HPI narrative: --- DR. LEZAMA MAIN ED EVALUATION: 54-year-old male from [facility] with history of IDDM, CAD, HFpEF, CVA with bilateral endarterectomy, Manera embolism on ELIQUIS, HTN, CAROLYN, cirrhosis, CHF exacerbation and left groin abscess, chronic anemia brought in by ambulance for evaluation of a spider bite. Patient reports he was bit on Wednesday to the right forearm, right finger, and left arm. He notes his left arm has been draining discharge for the last 2 days. Patient notes 2 days after he was bit, he started to have a diffuse rash from head-to-toe and decided to come in. No fevers. No history of vasculitis. He denies any headache, visual changes, any numbness to extremities, no specific joint pain at all. He does report cough. Related Data Home Medications ?Medication ?Instructions ?Recorded ?Confirmed hydrocodone 10 mg-acetaminophen 1 tab PO Q4H 10/22/23 01/14/24 325 mg tablet ipratropium 20 mcg-albuterol 100 2 puff inhalation Q8HR PRN 10/22/23 05/12/24 mcg/actuation mist for inhalation Shortness Of Breath (Combivent Respimat) lorazepam 2 mg tablet 2 mg PO BID 10/22/23 05/12/24 metoprolol succinate 100 mg 100 mg PO DAILY 10/22/23 05/12/24 tablet,extended release 24 hr pregabalin 150 mg capsule 150 mg PO TID 10/22/23 05/12/24 semaglutide 2 mg/dose (8 mg/3 mL) 2 mg subcut QWEEK 10/22/23 01/14/24 subcutaneous pen injector (Ozempic) morphine 15 mg tablet,extended 15 mg PO QDAY PRN Pain 01/14/24 05/12/24 release Previous Rx's ?Medication ?Instructions ?Recorded flash glucose scanning reader #1 ea 10/26/23 ([employer] Liana 2 [place]) flash glucose sensor (FreeStyle #1 ea 10/26/23 Liana 2 Sensor kit) sennosides 8.6 mg tablet (senna) 8.6 mg PO BID PRN constipation #30 10/26/23 tabs bumetanide 1 mg tablet 1 mg PO BID 30 days #7 tabs 01/17/24 metoclopramide HCl 5 mg tablet 5 mg PO Q6H gastroparesis 30 days 01/17/24 #120 tabs menthol 0.44 %-zinc oxide 20.6 % 1 applic topical QID PRN skin 04/27/24 topical ointment (Calmoseptine) irritation #113 grams losartan 50 mg tablet 50 mg PO QDAY #30 tabs 05/22/24 blood-glucose meter (Blood Glucose #1 ea 05/25/24 Monitoring kit) Allergies Allergy/AdvReac Type Severity Reaction Status Date / Time ketorolac Allergy Severe TONGUE Verified 07/26/23 22:55 SWELLS UP Review of Systems Review of Systems Systems Reviewed: All systems reviewed, normal except as documented Past Medical History Past Medical History NEUROLOGIC: Positive Neurological Disorders, Cerebrovascular Accident, Transient Ischemic Attacks (TIA) and Willis's Palsy; Negative Seizures CARDIAC: Positive Cardiac Disorders, Myocardial Infarction, Coronary Artery Disease, Atherosclerotic Heart Disease, Hypercholesterolemia, Congestive Heart Failure, Deep Vein Thrombosis and Hypertension RESPIRATORY: Positive Asthma and Pulmonary Embolism; Negative Chronic Obstructive Pulmonary Disease (COPD) or Pneumonia GASTROINTESTINAL: Positive Gastrointestinal Disorders and Obesity GENITOURINARY: Positive Genitourinary Disorders and Kidney Stones; Negative Renal Disease MUSCULOSKELETAL: Positive Musculoskeletal Disorders and Degenerative Disk Disease; Negative Bone Cancer, Carpal Tunnel Syndrome or Fractures ENDOCRINE: Positive Endocrine Disorders and Diabetes Mellitus Type 2; Negative Diabetes Mellitus Type 1 HEMATOLOGIC: Negative Blood Disorders or Sickle Cell Disease PSYCHO/SOCIAL: Positive Anxiety OTHER HISTORY: Positive Falls, Blood Transfusions, Blood Transfusion Reaction and Chicken Pox; Negative Autoimmune Disease, Anesthesia Reactions, Organ Transplant, MRSA, VRSA, Vancomycin-Resistant Enterococci, Clostridium Difficile or Cancer Family History FAMILY HISTORY: Positive Family Respiratory Disorders and Family Cardiac Disorders; Negative Family Neurologic Problems Surgical History SURGICAL: Positive Cardiac Surgery, Coronary Stent and Carotid Endarterectomy; Negative Ear Surgery, Abdominal Surgery, Joint Replacement, Amputation, Open Reduction Internal Fixation, Arthroscopy, Neurologic Surgery, Vasectomy or Organ Transplant Social History SMOKING STATUS: Light (< 1 pack/day) SECOND HAND EXPOSURE: No ([id number] x 4 yrs) SUBSTANCE USE: does not use ED Exam Narrative Physical exam: Patient does not look toxic. There is a 4x5cm very hard area on his left lateral forearm not involving the elbow that has some draining serosanguinous fluid. Nontender to touch. No fluctuation. There is a 1x2cm more nodular without draining to right medial forearm. Not warm to touch. Dark red purple in color. The right index finger, dorsal side, nodular area, nontender, not warm to touch. There are diffuse papular, red-like spots with no nodules, more on his extremities. It does not involve the mouth, face, palsm or soles of his feet. Does not chloe. General Limitations: Present no limitations General appearance: Present alert and in no apparent distress Head Head exam: Present atraumatic, normocephalic and normal inspection Eye Eye exam: Present normal appearance, PERRL and EOMI ENT ENT exam: Present normal exam, normal oropharynx, TM's normal bilaterally and normal external ear exam Neck Neck exam: Present normal inspection and full ROM Chest Chest inspection: Present normal inspection and symmetric chest wall rise Respiratory Respiratory exam: Present normal lung sounds bilaterally Cardiovascular Cardiovascular exam: Present regular rate, normal rhythm and normal heart sounds Abdominal Exam Abdominal exam: Present normal bowel sounds Extremities Exam Extremities exam: Present normal inspection and full ROM Back Exam Back exam: Present normal inspection and full ROM Neurological Exam Neurological exam: Present alert, oriented X3 and CN II-XII intact Psychiatric Psychiatric exam: Present normal affect and normal mood; Absent depressed Skin Skin exam: Present warm, dry, intact and normal color Course Quality Measures none Orders Category Date Time Status COVID-19 Screening Questionnaire NOW Care 06/25/24 02:31 Active Decision to Admit X1 Care 06/25/24 02:31 Completed EKG (ED ONLY) *Do not use* NOW Care 06/25/24 00:53 Completed CXRP [XR chest 1V portable] Stat Exams 06/24/24 23:11 Completed EKG (ED Only) Stat Exams 06/25/24 00:53 Draft XR elbow LT 2V Stat Exams 06/24/24 23:12 Completed XR forearm RT 2V Stat Exams 06/24/24 23:11 Completed Blood Culture (Lab) Stat Lab 06/24/24 23:10 Received CBC Stat Lab 06/24/24 23:10 Completed CK [Creatine Kinase] Stat Lab 06/24/24 23:10 Completed CMP [Comprehensive Metabolic Panel] Stat Lab 06/24/24 23:10 Completed CRP [C-Reactive Protein] Stat Lab 06/24/24 23:10 Completed ESR [Sed Rate (ESR)] Stat Lab 06/24/24 23:10 Completed Lactic Acid [Lactate (Lactic Acid)] Stat Lab 06/24/24 23:10 Completed Path Review Blood Smear Stat Lab 06/25/24 00:18 Completed Procalcitonin Stat Lab 06/24/24 23:10 Completed Type and Screen Stat Lab 06/25/24 04:40 Received prbc [Red Blood Cells] Stat Lab 06/25/24 04:40 Received Clindamycin/Ns 600 mg Ivpb [Cleocin/Ns Ivpb] Med 06/25/24 14:00 Discontinued 600 mg in 50 ml IV Q8HR Clindamycin/Ns 600 mg Ivpb [Cleocin/Ns Ivpb] Med 06/25/24 02:30 Discontinued 600 mg in 50 ml IV X1 Piper/Tazo Inj [Zosyn Inj] 3.375 gm Med 06/25/24 02:20 Discontinued Sodium Chloride 0.9% (P) [Ns 0.9% (P)] 50 ml IV X1 Vancomycin Inj 1,000 mg Med 06/25/24 02:21 Discontinued Sodium Chloride 0.9% 250 ml [Ns] 250 ml IV X1 Vital Signs Vital signs: Vital Signs Temperature 98.7 F 06/24/24 22:55 Pulse Rate 80 06/24/24 22:55 Respiratory Rate 19 06/24/24 22:55 Blood Pressure 196/99 H 06/24/24 22:55 Pulse Oximetry (%) 98 06/24/24 22:55 Oxygen Delivery Method Room Air 06/24/24 22:55 Procedures -ED Procedure Comment EKG manual reading, 06/25/24 0114 hours, my interpretation: normal sinus rhythm, rate: 71 bpm, no depressions, QTc 456, normal intervals, no STEMI Skin / Abscess / Foreign Body MDM Narrative MDM Narrative:: Differential diagnoses include vasculitis s/t antibiotics; vasculitis, vs infection, GI bleed, thrombocytopenia, large vessels vs small vessel involvement, urticarial lesions ? Scribe Attestation: I, Fran Ibrahim, am scribing for and in the presence of Dr. Dover. Provider Notation: Although this document has been carefully reviewed, there may still be some phonetic and other typographical errors. These errors are purely grammatical due to imperfections in the software program and should not be construed in any way to compromise the substance of the patient's medical care during this visit. Patient data External records reviewed:: [facility] previous records and EMS form Clinical information provided by:: patient, EMS and other (specify) (custodial) Social determinants that could affect healthcare access:: housing (SNF) Patient has the following chronic illnesses:: IDDM, CAD, HFpEF, CVA with bilateral endarterectomy, Manera embolism on ELIQUIS, HTN, CAROLYN, cirrhosis, CHF exacerbation and left groin abscess, chronic anemia How is presenting disease/condition affected by chronic disease/condition?: uneffected by Evaluation data The following diagnostics were reviewed and interpreted by me:: lab results, radiology exam(s) and EKG tracing(s) Lab and/or radiology exams considered but not ordered:: None Interpretation Summary: I personally reviewed the radiology data and agree with the radiologist's interpretation. Examination: AP chest single view Exam date and time: June 24, 1999 2550 1:00 PM Indications: Rash all over the body Findings: Moderate enlargement cardiac contour Moderate vascular congestion No guillermina pulmonary edema No lobar pneumonia Impression: Moderate enlargement cardiac contour Moderate vascular congestion Dictated By: Julio Beebe MD Examination: Forearm, right, 2 views. Date and time of exam: June 24, 2024 1144 hrs. Indications: Rash to perform this week Findings: No fracture or dislocation No cortical bone destruction No foreign body Impression: No cortical bone destruction Dictated By: Julio Beebe MD Examination: Left elbow 2 views Exam date and time: June 24, 2024 at 1138 hrs. Indications: Open wound on the elbow. This week Findings: No fracture or dislocation No cortical bone destruction No opaque foreign body Impression: No cortical bone destruction Dictated By: Julio Beebe MD Medications / Prescriptions Medications or Prescriptions considered but not ordered:: None Medication administrations:: Medication Administration History Acetaminophen (Acetaminophen 325 Mg Tablet) 650 mg PO Q6H PRN PRN Reason: Fever >100.4 or Pain Stop: 07/25/24 04:27 Hydrocodone Bitart/Acetaminophen (Hydrocodone/Apap 5/325 Tablet) 1 tab PO Q4HR PRN PRN Reason: PAIN Stop: 06/30/24 04:33 Albuterol/Ipratropium (Albuterol/Ipratropium (Duoneb) Rt Radha 3 Ml Nebu) 3 ml INH Q2HR PRN PRN Reason: SHORTNESS OF BREATH OR WHEEZE Stop: 07/25/24 05:04 Atorvastatin Calcium (Atorvastatin Calcium 20 Mg Tablet) 80 mg PO HS RINA Stop: 07/25/24 20:59 Bumetanide (Bumetanide 0.5 Mg Tablet) 1 mg PO BID RINA Stop: 07/25/24 08:59 Cyclobenzaprine HCl (Cyclobenzaprine 5 Mg Tablet) 5 mg PO BID RINA Stop: 07/25/24 08:59 Dextrose (Dextrose 50%-Water Inj 50 Ml Syringe) 50 ml IV Q15MIN PRN PRN Reason: BG <50 OR BG <70 & pt unresponsive Stop: 07/25/24 05:03 Glucagon (Glucagon Inj 1 Mg Vial) 1 mg IM Q15MIN PRN PRN Reason: BG <70, and no IV access Heparin Sodium (Porcine) (Heparin Sod Inj 5000 Unit/Ml Vial) 5,000 unit SC Q12HR RINA Stop: 07/09/24 08:59 Ceftriaxone Sodium/Dextrose (Rocephin/D5w 1gm Iv Premix) 50 mls @ 100 mls/hr IV QDAY RINA Stop: 07/02/24 04:45 Doxycycline Hyclate 100 mg/ (Sodium Chloride) 100 mls @ 100 mls/hr IV BID RINA Stop: 07/02/24 08:59 Doxycycline Hyclate 100 mg/ (Sodium Chloride) 100 mls @ 100 mls/hr IV X1 ONE Stop: 06/25/24 06:29 Insulin Glargine (Insulin Glargine (Lantus) 5 Unit/0.05 Ml (Per 5 Units)) 40 unit SC HS RINA Stop: 07/25/24 20:59 Insulin Human Lispro (Insulin Lispro (Admelog) 1 Unit/0.01 Ml Unit) 0 unit SC ACHS [facility]; Protocol Stop: 07/25/24 07:29 Losartan Potassium (Losartan Potassium 25 Mg Tablet) 50 mg PO QDAY [facility] Stop: 07/25/24 08:59 Metoprolol Succinate (Metoprolol Succinate Xl 25 Mg Tabcr) 100 mg PO QDAY [facility] Stop: 07/25/24 08:59 Ondansetron HCl (Ondansetron Inj 2 Mg/Ml Inj 2 Ml) 4 mg IV Q6H PRN; Protocol PRN Reason: NAUSEA OR VOMITING Stop: 07/25/24 04:27 Pregabalin (Pregabalin 75 Mg Capsule) 150 mg PO TID [facility] Stop: 07/25/24 05:59 Sennosides (Senna Tablet) 1 tab PO QDAY [facility]; Protocol Stop: 07/25/24 08:59 Discontinued Medications Diphenhydramine HCl (Diphenhydramine Inj 50 Mg/Ml Vial) 25 mg IV X1 ONE Stop: 06/25/24 04:46 Last Admin: 06/25/24 05:21 Dose: 25 mg Documented By: CCT Hydrocortisone Sodium Succinate (Hydrocortisone Sod Succ Inj 100 Mg Vial) 100 mg IV X1 ONE Stop: 06/25/24 04:45 Last Admin: 06/25/24 05:20 Dose: 100 mg Documented By: CCT Clindamycin/Sodium Chloride (Cleocin/Ns Ivpb) 600 mg in 50 mls @ 100 mls/hr IV Q8HR [facility] Stop: 07/02/24 13:59 Piperacillin Sod/Tazobactam (Sod 3.375 gm/ Sodium Chloride) 50 mls @ 100 mls/hr IV X1 ONE Stop: 06/25/24 02:49 Last Infusion: 06/25/24 03:17 Dose: Infused Documented By: Admin: 06/25/24 02:44 Dose: 100 mls/hr Documented By: CCT Vancomycin HCl 1,000 mg/ (Sodium Chloride) 250 mls @ 150 mls/hr IV X1 ONE Stop: 06/25/24 04:00 Last Admin: 06/25/24 04:29 Dose: 150 mls/hr Documented By: CCT Clindamycin/Sodium Chloride (Cleocin/Ns Ivpb) 600 mg in 50 mls @ 100 mls/hr IV X1 ONE Stop: 06/25/24 02:59 Last Infusion: 06/25/24 04:06 Dose: Infused Documented By: Admin: 06/25/24 03:18 Dose: 100 mls/hr Documented By: CCT As above Consultations Consultation(s) initiated? (list below): Yes Consultation #1 (Physician, Specialty, Details): Hospitalist resident made aware of the patient?s HPI, PMHx, lab and/or radiology results. Treatment plan was discussed. Will admit for further evaluation and management. Accepts patient for admission. Time: Diagnosis Skin/Abscess Differential Diagnosis: other (vasculitis s/t antibiotics; vasculitis, vs infection, GI bleed, thrombocytopenia, large vessels vs small vessel involvement, urticarial lesions) Most likely diagnosis given after review of the tests above:: Vasculitis, Cellulitis, Chronic anemia Admission Indicated Admission indicated?: indicated Admission Request Was there a request for admission?: Yes Admission Attestation Admission request attestation: Discussed case with [] from Hospitalist service regarding admission. Discussed patients ED course, exam findings, labs, and radiology results. The Hospitalist [agrees,declines] to accept the patient for admission. Disposition Plan Disposition Plan: Admit Critical Care Time Critical Care Time Critical Care Time: Yes Total Critical Care Time (min.): 60 Attestation: The high probability of sudden, clinically significant deterioration in the patient?s condition required the highest level of my preparedness to intervene urgently. The services I provided to this patient were to treat and/or prevent clinically significant deterioration. Services included the following: chart data review, reviewing nursing notes and/or old charts, documentation time, [employer] consultant collaboration regarding findings and treatment options, medication orders and management, direct patient care, vital sign assessments and ordering, interpreting and reviewing diagnostic studies and lab tests. Aggregate critical care time includes only time during which I was engaged in work directly related to the patient?s care, as described above, whether at bedside or elsewhere in the Emergency Department. It did not include time spent performing other reported procedures or the services of residents, students, nurses or physician assistants. Discharge Plan Plan Patient Disposition: Admit Acute Care w/in Hospital Patient condition on transfer: Stable Problem List Clinical Impression: Vasculitis, Cellulitis, Chronic anemia
--- NOTE | 2024-06-25 00:53 | EKG_ITS ---
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
[2024-06-25 00:57] LABS: Alanine Aminotransferase 14 U/L (10-49); Albumin, Serum 3.5 gm/dL (3.5-5.0); Albumin/Globulin Ratio 0.9 (1.2-2.2); Alkaline Phosphatase 153 U/L (46-116); Anion Gap 7 (7-16); Aspartate Amino Transferase 23 U/L (0-34); BUN/Creatinine Ratio 37 Ratio (12-20); Bilirubin,Total < 0.2 mg/dL (0.3-1.2); Blood Urea Nitrogen 52 mg/dL (9-23); C-Reactive Protein 4.3 mg/dL (0.0-0.9); Calcium 8.8 mg/dL (8.3-10.6); Calcium (Corrected) 9.2 mg/dL (8.5-10.1); Carbon Dioxide 29.1 mMol/L (20.0-31.0); Chloride 103 mMol/L (98-107); Creatine Kinase 72 U/L (34-171); Creatinine (Component) 1.4 mg/dL (0.6-1.3); Estimated Creatinine Clearance 77.8 mL/min (>60); Globulin 3.9 gm/dL (2.3-3.5); Glucose 238 mg/dL (74-106); Osmolality,Calculated 299 (275-295); Potassium 3.8 mMol/L (3.4-5.1); Sodium 139 mMol/L (136-145); Total Protein 7.4 gm/dL (5.7-8.2); eGFR 59 See Note
[2024-06-25 01:21] LABS: Sed Rate (ESR) 60 mm/hr (0-20)
[2024-06-25] MEDS: PIPER/TAZO INJ 3.375 GM in SODIUM CHLORIDE 0.9% (P) 50 ML IV (02:44)
[2024-06-25] MEDS: CLINDAMYCIN/NS 600 MG IVPB 600 MG/50 ML BAG 100 MG IV (03:18)
[2024-06-25] MEDS: Vancomycin Inj 1,000 MG in SODIUM CHLORIDE 0.9% 250 ML 250 ML 150 MG IV (04:29)
--- NOTE | 2024-06-25 04:48 | PD.RESHP ---
Documentation for date of: 06/25/24 HPI History of Present Illness Chief complaint: Generalized Rash History of present illness: HPI: Patient currently somnolent and poor historian. History obtained from both chart review and patient's testimony. Mr. Fisher is a 54-year-old male with past medical history of insulin-dependent diabetes mellitus [>14%], CAD, HFpEF [55-60%], CVA with b/l endarterectomy, pulmonary embolism on Eliquis, essential hypertension, obstructive sleep apnea, OHS/CAROLYN, cirrhosis and left groin abscess s/p I&D 05/11/24. He presented to the to the emergency department with a chief complaint of generalized rash from [facility]. Patient stated that approximately 1 day ago he developed generalized rash all over his body, including chest abdomen back and legs. He described it as pruritic but not painful. He also stated that around the same time he was bitten by an insect. He did not see the insect but saw spider webs and assumed that was what bit him. He also developed an abscess on his left elbow with purulent drainage at the same time. It was warm to touch, painful and associated with subjective fever. Patient did not take any medication for the fever. Associated with 4 episodes of vomiting approximately 2 days ago which have since subsided. Patient can still tolerate liquids and solids. Denies diarrhea, SOB, cough, sick contacts or recent travel. Upon review patient also denies any chest pain/pressure, palpitations, PND, orthopnea, leg swelling and headache. Of note patient was recently discharged from the hospital last month on 05/25/2024. He was treated for sepsis secondary to his groin abscess. He was discharged home with a 2-day course of levofloxacin and metronidazole p.o. ED course: BP 196/99 ---> BP 148/70, P71, RR 18, T90 8F, SpO2 95% on room air. Labs significant for Hb 6.7, HCT 22.4, WBC 12.9, BUN 52, CR 1.4, CRP 4.3, Pro-Angelo 0.2. EKG sinus rhythm, rate 74. No acute ST changes. CXR?cardiomegaly, mild vascular congestion, no pulmonary edema or pleural effusion. Patient will be admitted for cellulitis with failed outpatient p.o. antibiotics. Review of Systems Review of Systems Systems Reviewed: All systems reviewed, normal except as documented Past Medical History Past Medical History NEUROLOGIC: Positive Neurological Disorders, Cerebrovascular Accident, Transient Ischemic Attacks (TIA) and Willis's Palsy; Negative Seizures CARDIAC: Positive Cardiac Disorders, Myocardial Infarction, Coronary Artery Disease, Atherosclerotic Heart Disease, Hypercholesterolemia, Congestive Heart Failure, Deep Vein Thrombosis and Hypertension RESPIRATORY: Positive Asthma and Pulmonary Embolism; Negative Chronic Obstructive Pulmonary Disease (COPD) or Pneumonia GASTROINTESTINAL: Positive Gastrointestinal Disorders and Obesity GENITOURINARY: Positive Genitourinary Disorders and Kidney Stones; Negative Renal Disease MUSCULOSKELETAL: Positive Musculoskeletal Disorders and Degenerative Disk Disease; Negative Bone Cancer, Carpal Tunnel Syndrome or Fractures ENDOCRINE: Positive Endocrine Disorders and Diabetes Mellitus Type 2; Negative Diabetes Mellitus Type 1 HEMATOLOGIC: Negative Blood Disorders or Sickle Cell Disease PSYCHO/SOCIAL: Positive Anxiety OTHER HISTORY: Positive Falls, Blood Transfusions, Blood Transfusion Reaction and Chicken Pox; Negative Autoimmune Disease, Anesthesia Reactions, Organ Transplant, MRSA, VRSA, Vancomycin-Resistant Enterococci, Clostridium Difficile or Cancer Family History FAMILY HISTORY: Positive Family Respiratory Disorders and Family Cardiac Disorders; Negative Family Neurologic Problems Surgical History SURGICAL: Positive Cardiac Surgery, Coronary Stent and Carotid Endarterectomy; Negative Ear Surgery, Abdominal Surgery, Joint Replacement, Amputation, Open Reduction Internal Fixation, Arthroscopy, Neurologic Surgery, Vasectomy or Organ Transplant Social History SMOKING STATUS: Light (< 1 pack/day) SECOND HAND EXPOSURE: No ([id number] x 4 yrs) SUBSTANCE USE: does not use Exam Vital Signs Temp Pulse Resp BP Pulse Ox O2 Del Method 98 F 71 18 148/70 H 95 Room Air 06/25/24 02:00 06/25/24 02:00 06/25/24 02:00 06/25/24 02:00 06/25/24 02:00 06/25/24 02:00 Narrative Exam Constitutional Alert, oriented x 3 and somnolent. Middle aged, obese male. HEENT Vision grossly intact. Patent nares. Trachea midline Respiratory Chest normal on inspection and decreased air entry globally. Cardiovascular S1 and S2 audible, RRR. No murmurs carotid bruit. No gross JVD. Abdominal Soft, obese and non tender to palpation in all quadrants. BS + Genitourinary No bladder tenderness, no flank pain. Normal to palpation Musculoskeletal Extremities tone within normal limits. No LE edema. Neurological CN II - XII grossly intact. Extremity motor and sensation grossly intact. Skin Generalized maculopapular rash over chest back abdomen arms and legs. Also multiple scattered petechiae Psychiatric Patient has good affect, is cooperative Additional findings Additional findings: Results: Labs 06/25/24 04:40 06/25/24 00:18 Labs: Short CBC 06/25/24 Range/Units 00:18 WBC 12.9 H (3.8-10.6) Thou/mm3 Hgb 6.7 L* (13.5-16.0) g/dL Hct 22.4 L (41.0-53.0) % Plt Count 262 D (140-440) Thou/mm3 BMP 06/25/24 00:18 Sodium 139 Potassium 3.8 Chloride 103 Carbon Dioxide 29.1 BUN 52 H Creatinine 1.4 H Glucose 238 H Calcium 8.8 Cardiac Enzymes 06/25/24 Range/Units 00:18 Total Creatine Kinase 72 D (34-171) U/L Liver Function 06/25/24 Range/Units 00:18 Total Bilirubin < 0.2 L (0.3-1.2) mg/dL AST 23 (0-34) U/L ALT 14 (10-49) U/L Alkaline Phosphatase 153 H (46-116) U/L Albumin 3.5 (3.5-5.0) gm/dL Quality Measures Quality Measures none Medications Home Medications and Allergies Home Medications ?Medication ?Instructions ?Recorded ?Confirmed ?Type hydrocodone 10 mg-acetaminophen 1 tab PO Q4H 10/22/23 01/14/24 History 325 mg tablet ipratropium 20 mcg-albuterol 100 2 puff inhalation Q8HR PRN 10/22/23 05/12/24 History mcg/actuation mist for inhalation Shortness Of Breath (Combivent Respimat) lorazepam 2 mg tablet 2 mg PO BID 10/22/23 05/12/24 History metoprolol succinate 100 mg 100 mg PO DAILY 10/22/23 05/12/24 History tablet,extended release 24 hr pregabalin 150 mg capsule 150 mg PO TID 10/22/23 05/12/24 History semaglutide 2 mg/dose (8 mg/3 mL) 2 mg subcut QWEEK 10/22/23 01/14/24 History subcutaneous pen injector (Ozempic) morphine 15 mg tablet,extended 15 mg PO QDAY PRN Pain 01/14/24 05/12/24 History release Allergies Allergy/AdvReac Type Severity Reaction Status Date / Time ketorolac Allergy Severe TONGUE Verified 07/26/23 22:55 SWELLS UP Visit Medications Acetaminophen (Acetaminophen 325 Mg Tablet) 650 mg PO Q6H PRN PRN Reason: Fever >100.4 or Pain Stop: 07/25/24 04:27 Hydrocodone Bitart/Acetaminophen (Hydrocodone/Apap 5/325 Tablet) 1 tab PO Q4HR PRN PRN Reason: PAIN Stop: 06/30/24 04:33 Heparin Sodium (Porcine) (Heparin Sod Inj 5000 Unit/Ml Vial) 5,000 unit SC Q12HR RINA Stop: 07/09/24 08:59 Clindamycin/Sodium Chloride (Cleocin/Ns Ivpb) 600 mg in 50 mls @ 100 mls/hr IV Q8HR RINA Stop: 07/02/24 13:59 Ceftriaxone Sodium/Dextrose (Rocephin/D5w 1gm Iv Premix) 50 mls @ 100 mls/hr IV QDAY RINA Stop: 07/02/24 04:45 Doxycycline Hyclate 100 mg/ (Sodium Chloride) 100 mls @ 100 mls/hr IV BID RINA Stop: 07/02/24 08:59 Ondansetron HCl (Ondansetron Inj 2 Mg/Ml Inj 2 Ml) 4 mg IV Q6H PRN; Protocol PRN Reason: NAUSEA OR VOMITING Stop: 07/25/24 04:27 Discontinued Medications Diphenhydramine HCl (Diphenhydramine Inj 50 Mg/Ml Vial) 25 mg IV X1 ONE Stop: 06/25/24 04:46 Hydrocortisone Sodium Succinate (Hydrocortisone Sod Succ Inj 100 Mg Vial) 100 mg IV X1 ONE Stop: 06/25/24 04:45 Piperacillin Sod/Tazobactam (Sod 3.375 gm/ Sodium Chloride) 50 mls @ 100 mls/hr IV X1 ONE Stop: 06/25/24 02:49 Last Infusion: 06/25/24 03:17 Dose: Infused Vancomycin HCl 1,000 mg/ (Sodium Chloride) 250 mls @ 150 mls/hr IV X1 ONE Stop: 06/25/24 04:00 Last Admin: 06/25/24 04:29 Dose: 150 mls/hr Clindamycin/Sodium Chloride (Cleocin/Ns Ivpb) 600 mg in 50 mls @ 100 mls/hr IV X1 ONE Stop: 06/25/24 02:59 Last Infusion: 06/25/24 04:06 Dose: Infused Assessment & Plan Plan Patient currently somnolent and poor historian. History obtained from both chart review and patient's testimony. Mr. Fisher is a 54-year-old male with past medical history of insulin-dependent diabetes mellitus [>14%], CAD, HFpEF [55-60%], CVA with b/l endarterectomy, pulmonary embolism on Eliquis, essential hypertension, obstructive sleep apnea, OHS/CAROLYN, cirrhosis and left groin abscess s/p I&D 05/11/24. He presented to the to the emergency department with a chief complaint of generalized rash from [facility]. Patient will be admitted for cellulitis with failed outpatient p.o. antibiotics. 1. Acute blood loss anemia On admission patient's Hb 6.7. Baseline Hb between 7?9 DDx: Anemia of chronic disease, peptic ulcer disease, inflammatory anemia Plan: ? Type and screen ? 1 unit PRBC ? Posttransfusion H&H ? Avoid NSAIDs, IM injections 2. Hypertensive urgency?resolved On admission patient's BP 196/99 which spontaneously reduced to 148/70 3. Generalized rash 4. Left elbow cellulitis Patient presented with a generalized maculopapular rash all over his body with scattered petechiae. Questionable history of spider bite. DDx : Hypersensitivity reaction, spider bite , drug reaction, dermatitis herpetiforms, vasculitides including cryoglobulins Plan: ? MRSA nasal screen ? Hydrocortisone 100 Mg IV x 1 ? Benadryl 25 Mg IV x 1 ? Ceftriaxone 1 g IV daily started on [06/25? ? Doxycycline 100 Mg IV twice daily started on [06/25? - Infectious disease, Dr Galindo consulted. Appreciate recommendations 5. HFpEF [55-60%] 6. CAD On admission patient denied any SOB, PND, orthopnea and LE swelling. On exam patient's lungs had decreased air entry globally Last transthoracic echocardiogram completed on 04/24/2024 findings include: Suboptimal images due to body habitus. Normal LV size and function. Mild LVH. Grade I diastolic dsyfunction. Estimated EF 55-60% Mild RV dilation. Normal RV function. Mild biatrial dilation. Trace MR, TR. Mild AV sclerosis without stenosis. There is a small circumferential pericardial effusion. No evidence of cardiac tamponade. Home medication Bumex 1 Mg p.o. twice daily, metoprolol XL 100 Mg p.o. daily, Atorvastatin 80 mg po HS Plan: ? Resume home medication ? Resume Bumex 1 Mg p.o. twice daily ? Resume metoprolol XL 100 Mg p.o. daily - Resumed Atorvastatin 80 mg po HS 7. Acute kidney injury On admission patient CR 1.4. Baseline CR between 0.9?1.1 Plan: ? Renally dose medication ? Avoid nephrotoxic agents 8. Insulin-dependent diabetes mellitus type 2 [>14%] Patient's last HbA1c from [05/11/2024] >14% Home medication insulin degludec 95 units twice daily and Ozempic 2 Mg SC weekly Plan: ? Started insulin glargine 40 units SC at bedtime ? SSI to cover for any blood glucose spikes 9. History of CVA with B/L endarterectomy 10. History of pulmonary embolism on Eliquis Plan: ? Eliquis on hold for now in light of acute blood loss anemia. 11. Essential hypertension Currently patient's BP 147/69 Home medication losartan 50 Mg p.o. daily Plan: ? Resumed home medication losartan 50 Mg p.o. daily 12. Obstructive sleep apnea 13. Obesity hypoventilation syndrome Plan: ? Day team to decide on CPAP at night 14. History of left groin abscess s/p I&D 05/11/2024 Health maintenance: Disposition: IV antibiotics, ID consult. Diet: Low consistent carb and cardiac Lines: pIVs GI Prophylaxis: None Thrombo Prophylaxis: Heparin Code status: FULL CODE Plan of care discussed with Attending Dr. Rashawn Fonseca MD PGY 1 Attending Provider Attestation/Addendum I have examined the patient, reviewed labs and imaging findings, discussed the case with the resident(s), and reviewed entered orders. I agree with the plan of care as outlined in this note, with these additional summaries/recommendations: Mr. Fisher is a 54-year-old male with past medical history of insulin-dependent diabetes mellitus [>14%], CAD, HFpEF [55-60%], CVA with b/l endarterectomy, pulmonary embolism on Eliquis, essential hypertension, obstructive sleep apnea, OHS/CAROLYN, cirrhosis and left groin abscess s/p I&D 05/11/24 who presents to the ED with chief complaint of diffuse, pruritic rash that has been ongoing for approximately 1 to 1.5 weeks. He reports he had a spider bite on right arm and right third finger approximately a week and a half ago and states that the rash developed shortly thereafter. Patient also has ongoing sacral ulcer and left elbow wound requiring wound care. For now, will initiate broad-spectrum antibiotics, blood cultures, consult ID, obtain hepatitis panel, consider biopsy and may benefit from course of steroids. Óscar Morocho MD
[2024-06-25 05:04] LABS: Basophils # (Auto) 0.1 Thou/mm3 (0.0-0.2); Basophils % (Auto) 0 % (0-2.5); Eosinophils # (Auto) 0.4 Thou/mm3 (0.0-0.5); Eosinophils % (Auto) 3 % (0-10); Hematocrit 21.4 % (41.0-53.0); Immature Granulocytes % (Auto) 2 % (0-0); Immature Granulocytes Auto 0.21 Thou/mm3 (0.00-0.00); Lymphocytes # (Auto) 1.5 Thou/mm3 (1.0-4.8); Lymphocytes % (Auto) 13 % (10-50); Mean Corpuscular HGB Conc 30.4 g/dl (31.0-37.0); Mean Corpuscular Hemoglobin 25.8 pg (25.0-35.0); Mean Corpuscular Volume 85 fL (80-100); Monocytes % (Auto) 8 % (0-12); Neutrophils # (Auto) 8.3 Thou/mm3 (1.8-7.7); Neutrophils % (Auto) 73 % (37-80); Nucleated Red Blood Cell % 0 /100 WBC (0); Platelet Count 238 Thou/mm3 (140-440); Red Blood Count 2.52 Miln/mm3 (4.50-5.90); White Blood Count 11.4 Thou/mm3 (3.8-10.6)
[2024-06-25 05:14] LABS: Hemoglobin 6.5 g/dL (13.5-16.0)
[2024-06-25] MEDS: HYDROCORTISONE SOD SUCC INJ 100 MG VIAL IV (05:20)
[2024-06-25] MEDS: DiphenhydrAMINE INJ 50 MG/ML VIAL 25 MG IV (05:21)
[2024-06-25 05:45] LABS: Path Review Blood Smear Sent to Pathologist
--- NOTE | 2024-06-25 05:45 | PC.NURSE ---
Report given to SHAWNA Leahy
[2024-06-25 06:10] LABS: Alanine Aminotransferase 14 U/L (10-49); Albumin, Serum 3.3 gm/dL (3.5-5.0); Albumin/Globulin Ratio 0.9 (1.2-2.2); Alkaline Phosphatase 137 U/L (46-116); Anion Gap 10 (7-16); Aspartate Amino Transferase 20 U/L (0-34); BUN/Creatinine Ratio 41 Ratio (12-20); Bilirubin,Total < 0.2 mg/dL (0.3-1.2); Blood Urea Nitrogen 53 mg/dL (9-23); Calcium 8.5 mg/dL (8.3-10.6); Calcium (Corrected) 9.1 mg/dL (8.5-10.1); Carbon Dioxide 27.7 mMol/L (20.0-31.0); Chloride 104 mMol/L (98-107); Creatinine (Component) 1.3 mg/dL (0.6-1.3); Estimated Creatinine Clearance 83.8 mL/min (>60); Globulin 3.6 gm/dL (2.3-3.5); Glucose 177 mg/dL (74-106); Magnesium 1.6 mg/dL (1.6-2.6); Osmolality,Calculated 301 (275-295); Phosphorous 4.8 mg/dL (2.4-5.1); Potassium 3.7 mMol/L (3.4-5.1); Sodium 142 mMol/L (136-145); Total Protein 6.9 gm/dL (5.7-8.2); eGFR > 60 See Note
[2024-06-25] MEDS: DOXYCYCLINE INJ 100 MG in SODIUM CHLORIDE 0.9% (P) 100 ML IV ×2 (06:19→21:52)
[2024-06-25] MEDS: PREGABALIN 75 MG CAPSULE 150 MG PO ×3 (06:21→21:04)
[2024-06-25] MEDS: cefTRIAXone/D5w 1gm IV premix 50 ML IV (08:32)
[2024-06-25] MEDS: CYCLObenzaPRINE 5 MG TABLET PO (08:32)
[2024-06-25] MEDS: LOSARTAN POTASSIUM 25 MG TABLET 50 MG PO (08:32)
[2024-06-25] MEDS: SENNA TABLET 1 TAB PO (08:33)
[2024-06-25] MEDS: BUMETANIDE 0.5 MG TABLET 1 MG PO ×2 (08:33→21:09)
[2024-06-25] MEDS: HYDROcodone/APAP 5/325 TABLET 1 TAB PO ×2 (08:33→14:38)
[2024-06-25] MEDS: METOPROLOL SUCCINATE XL 25 MG TABCR 100 MG PO (08:33)
[2024-06-25] MEDS: INSULIN LISPRO (AdmeLOG) 1 UNIT/0.01 ML UNIT SC ×4 (08:34→21:56)
[2024-06-25] MEDS: HEPARIN SOD INJ 5000 UNIT/ML VIAL SC (08:34)
[2024-06-25] MEDS: PANTOPRAZOLE INJ 40 MG VIAL IVP ×2 (10:32→21:03)
--- NOTE | 2024-06-25 12:25 | XR_ITS ---
Examination: CT left elbow, without contrast. 2-D sagittal reconstructions. 2-D coronal reconstructions. 3-D reconstructions. Date and time of exam:June 25, 2024 1547 hrs. Indications: Redness swelling and pain involving the elbow this week CTDI: vol (mGy):12.4 DLP: (mGycm):305 Technique: Multiple 1.25 mm axial sections of the left elbow have been obtained. 2-D sagittal and coronal reconstructions have been obtained. 3-D reconstructions have been obtained. Low dose protocols were performed. One or more of the following dose reduction techniques were used; automated exposure control, adjustment of the mA and/or KV according to patient size, use of iterative reconstruction technique. Findings: Distal humerus, radial head and neck, proximal radius, olecranon including ulnar notch and proximal ulna intact Extensive edema surrounding the elbow especially dorsal to the olecranon with skin thickening No soft tissue abscess No cortical bone destruction No foreign body Impression: Extensive cellulitis pattern Negative for osteomyelitis Negative for fluid-filled soft tissue abscess Consider MRI elbow without contrast follow-up
[2024-06-25 12:58] LABS: Basophils % (Auto) 0 % (0-2.5); Eosinophils # (Auto) 0.1 Thou/mm3 (0.0-0.5); Eosinophils % (Auto) 1 % (0-10); Hematocrit 23.3 % (41.0-53.0); Immature Granulocytes % (Auto) 3 % (0-0); Immature Granulocytes Auto 0.33 Thou/mm3 (0.00-0.00); Lymphocytes # (Auto) 0.8 Thou/mm3 (1.0-4.8); Lymphocytes % (Auto) 7 % (10-50); Mean Corpuscular Hemoglobin 25.7 pg (25.0-35.0); Mean Corpuscular Volume 86 fL (80-100); Monocytes # (Auto) 0.4 Thou/mm3 (0.0-0.8); Monocytes % (Auto) 4 % (0-12); Neutrophils % (Auto) 86 % (37-80); Nucleated Red Blood Cell % 0 /100 WBC (0); Platelet Count 248 Thou/mm3 (140-440); RDW Standard Deviation 45.2 fL (35.1-43.9); Red Blood Count 2.72 Miln/mm3 (4.50-5.90); White Blood Count 11.6 Thou/mm3 (3.8-10.6)
[2024-06-25] MEDS: OCTREOTIDE ACET INJ 1,000 MCG in SODIUM CHLORIDE 0.9% 100 ML 5.1 MCG IV (14:38)
[2024-06-25 15:40] LABS: Hematocrit 25.4 % (41.0-53.0)
[2024-06-25 15:55] LABS: Hemoglobin 7.7 g/dL (13.5-16.0)
--- NOTE | 2024-06-25 17:39 | PD.RESPRO ---
Documentation for date of: 06/25/24 Subjective Subjective Interval history: 06/25: Patient is an overnight admit. Patient is seen and examined at bedside this morning patient complains of pain in the left elbow at the site of cellulitis/wound and at the site of sacral ulcers. Patient states that he first noticed the rash approximately 1 week ago which he contributes to spider bites because he witnessed spiders at the nursing facility he is currently staying at. Although x-rays showed no cortical bone destruction will order CT scan of the elbow to assess if there is any abscess that needs to be drained. Since patient has history of cirrhosis we will add octreotide drip in light of upper GI bleed. patient denies any dizziness, headaches, nausea or vomiting. Exam Vital Signs Temp Pulse Resp BP Pulse Ox O2 Del Method O2 Flow Rate 97.5 F 69 171 H 158/108 H 97 Nasal Cannula 2 06/25/24 15:25 06/25/24 15:25 06/25/24 15:25 06/25/24 15:25 06/25/24 15:06/25/24 12:00 06/25/24 12:00 Narrative Exam GENERAL: A&Ox3 . Awake, Not in acute distress, obese male NEURO: no focal neurological deficits HEENT: Atraumatic, Normocephalic. mucous membranes moist. Eyes open, symmetrical, & clear HEART: Normal Heart Sounds LUNGS: Coarse breath sounds with wheezing bilaterally ABDOMEN: soft, non-distended, non-tender, bowel sounds heard, no guarding or rebound tenderness SKIN: Generalized maculopapular rash over chest back abdomen arms and legs. Also multiple scattered petechiae, would on L. elbow and right forearm. EXTREMITIES: No edema, tenderness, able to move all 4 extremities, pedal pulses palpated Additional findings Additional findings: Objective Labs 06/27/24 06:17 06/27/24 06:17 Labs: Laboratory Results - last 24 hr 06/25/24 06/25/24 06/25/24 00:18 04:40 12:13 WBC 12.9 H 11.4 H 11.6 H RBC 2.63 L 2.52 L 2.72 L Hgb 6.7 L* 6.5 L* 7.0 L Hct 22.4 L 21.4 L* 23.3 L MCV 85 85 86 MCH 25.5 25.8 25.7 MCHC 29.9 L 30.4 L 30.0 L RDW Std Deviation 45.4 H 45.0 H 45.2 H Plt Count 262 D 238 248 Neut % (Auto) 77 73 86 H Lymph % (Auto) 10 13 7 L [place] % (Auto) 7 8 4 Eos % (Auto) 3 3 1 Baso % (Auto) 0 0 0 Neut # (Auto) 10.0 H 8.3 H 10.0 H Lymph # (Auto) 1.3 1.5 0.8 L [place] # (Auto) 1.0 H 1.0 H 0.4 Eos # (Auto) 0.4 0.4 0.1 Baso # (Auto) 0.0 0.1 0.0 Immature Gran # (Auto) 0.28 H 0.21 H 0.33 H Absolute Nucleated RBC 0.00 0.00 0.00 Immature Gran % 2 H 2 H 3 H Nucleated RBC % 0 0 0 Smear Path Review Sent to Pathologist ESR 60 H Sodium 139 142 Potassium 3.8 3.7 Chloride 103 104 Carbon Dioxide 29.1 27.7 Anion Gap 7 10 BUN 52 H 53 H Creatinine 1.4 H 1.3 Estim Creat Clear Calc 77.8 83.8 eGFR 59 L > 60 BUN/Creatinine Ratio 37 H 41 H Glucose 238 H 177 H D Calculated Osmolality 299 H 301 H Lactic Acid 1.1 Calcium 8.8 8.5 Corrected Calcium 9.2 9.1 Phosphorus 4.8 Magnesium 1.6 Total Bilirubin < 0.2 L < 0.2 L AST 23 20 ALT 14 14 Alkaline Phosphatase 153 H 137 H Total Creatine Kinase 72 D C-Reactive Prot, Quant 4.3 H Total Protein 7.4 6.9 Albumin 3.5 3.3 L Globulin 3.9 H 3.6 H Albumin/Globulin Ratio 0.9 L 0.9 L Procalcitonin 0.20 Blood Type AB Positive Antibody Screen NEGATIVE Crossmatch See Detail Blood Bank Wristband ID Yes 06/25/24 15:18 WBC RBC Hgb 7.7 L Hct 25.4 L MCV MCH MCHC RDW Std Deviation Plt Count Neut % (Auto) Lymph % (Auto) [place] % (Auto) Eos % (Auto) Baso % (Auto) Neut # (Auto) Lymph # (Auto) [place] # (Auto) Eos # (Auto) Baso # (Auto) Immature Gran # (Auto) Absolute Nucleated RBC Immature Gran % Nucleated RBC % Smear Path Review ESR Sodium Potassium Chloride Carbon Dioxide Anion Gap BUN Creatinine Estim Creat Clear Calc eGFR BUN/Creatinine Ratio Glucose Calculated Osmolality Lactic Acid Calcium Corrected Calcium Phosphorus Magnesium Total Bilirubin AST ALT Alkaline Phosphatase Total Creatine Kinase C-Reactive Prot, Quant Total Protein Albumin Globulin Albumin/Globulin Ratio Procalcitonin Blood Type Antibody Screen Crossmatch Blood Bank Wristband ID Quality Measures Quality Measures none Assessment & Plan Assessment Current Active Medications: Generic Name Dose Route Start Last Admin Trade Name Freq PRN Reason Stop Dose Admin Acetaminophen 650 mg 06/25/24 11:33 Acetaminophen 325 Mg Tablet PO 07/25/24 04:27 Q6H PRN Fever >100.4 or Pain(1-3) Hydrocodone Bitart/Acetaminophen 1 tab 06/25/24 11:32 06/25/24 14:38 Hydrocodone/Apap 5/325 Tablet PO 06/30/24 04:33 1 tab Q4HR PRN Administration PAIN SCALE 4-10(Mod-Sev Albuterol/Ipratropium 3 ml 06/25/24 19:00 Albuterol/Ipratropium (Duoneb) Rt Radha 3 Ml Nebu INH 07/25/24 18:59 Q6HRRT RINA Atorvastatin Calcium 80 mg 06/25/24 21:00 Atorvastatin Calcium 20 Mg Tablet PO 07/25/24 20:59 HS RINA Bumetanide 1 mg 06/25/24 09:00 06/25/24 08:33 Bumetanide 0.5 Mg Tablet PO 07/25/24 08:59 1 mg BID RINA Administration Cyclobenzaprine HCl 5 mg 06/25/24 09:00 06/25/24 08:32 Cyclobenzaprine 5 Mg Tablet PO 07/25/24 08:59 5 mg BID RINA Administration Dextrose 50 ml 06/25/24 05:04 Dextrose 50%-Water Inj 50 Ml Syringe IV 07/25/24 05:03 Q15MIN PRN BG <50 OR BG <70 & pt unresponsive Glucagon 1 mg 06/25/24 05:04 Glucagon Inj 1 Mg Vial IM Q15MIN PRN BG <70, and no IV access Ceftriaxone Sodium/Dextrose 50 mls @ 100 mls/hr 06/25/24 09:00 06/25/24 08:32 Rocephin/D5w 1gm Iv Premix IV 07/02/24 08:59 100 mls/hr QDAY RINA Administration Doxycycline Hyclate 100 mg/ 100 mls @ 100 mls/hr 06/25/24 21:00 Sodium Chloride IV 07/02/24 20:59 BID RINA Octreotide Acetate 1,000 mcg/ 102 mls @ 5.1 mls/hr 06/25/24 12:30 06/25/24 14:38 Sodium Chloride IV 06/30/24 12:30 50 mcg/hr .Q20H RINA 5.1 mls/hr Administration Protocol 50 MCG/HR Insulin Glargine 40 unit 06/25/24 21:00 Insulin Glargine (Lantus) 5 Unit/0.05 Ml (Per 5 Units) SC 07/25/24 20:59 HS RINA Insulin Human Lispro 0 unit 06/25/24 07:30 06/25/24 11:34 Insulin Lispro (Admelog) 1 Unit/0.01 Ml Unit SC 07/25/24 07:29 1 unit ACHS RINA Administration Protocol Losartan Potassium 50 mg 06/25/24 09:00 06/25/24 08:32 Losartan Potassium 25 Mg Tablet PO 07/25/24 08:59 50 mg QDAY RINA Administration Metoprolol Succinate 100 mg 06/25/24 09:00 06/25/24 08:33 Metoprolol Succinate Xl 25 Mg Tabcr PO 07/25/24 08:59 100 mg QDAY RINA Administration Morphine Sulfate 2 mg 06/25/24 17:13 Morphine Sulf Inj 10 Mg/Ml Vial IVP 06/30/24 17:12 Q4HR PRN BREAKTHROUGH PAIN (SEVERE) Ondansetron HCl 4 mg 06/25/24 04:28 Ondansetron Inj 2 Mg/Ml Inj 2 Ml IV 07/25/24 04:27 Q6H PRN NAUSEA OR VOMITING Protocol Pantoprazole Sodium 40 mg 06/25/24 09:45 06/25/24 10:32 Pantoprazole Inj 40 Mg Vial IVP 07/25/24 09:44 40 mg BID RINA Administration Pregabalin 150 mg 06/25/24 06:00 06/25/24 14:38 Pregabalin 75 Mg Capsule PO 07/25/24 05:59 150 mg TID RINA Administration Sennosides 1 tab 06/25/24 09:00 06/25/24 08:33 Senna Tablet PO 07/25/24 08:59 1 tab QDAY RINA Administration Protocol Plan Patient currently somnolent and poor historian. History obtained from both chart review and patient's testimony. Mr. Fisher is a 54-year-old male with past medical history of insulin-dependent diabetes mellitus [>14%], CAD, HFpEF [55-60%], CVA with b/l endarterectomy, pulmonary embolism on Eliquis, essential hypertension, obstructive sleep apnea, OHS/CAROLYN, cirrhosis and left groin abscess s/p I&D 05/11/24. He presented to the to the emergency department with a chief complaint of generalized pruritic rash from [facility]. Patient is admitted for Upper GI bleed rewuiring transfusion and cellulitis with failed outpatient p.o. antibiotics. #Acute blood loss anemia secondary to #upper GI bleed #Hx of cirrhosis -On admission patient's Hb 6.7 --> post transfusion Hgb 7.7 and Hct 25.4 -Baseline Hgb between 7?9 DDx: Anemia of chronic disease, peptic ulcer disease, inflammatory anemia Plan: -Type and screen -1 unit PRBC transfused 06/25 -Posttransfusion H&H -Avoid NSAIDs -Pantoprazole 40 Mg IVP twice daily -Octreotide drip started -GI consulted, appreciate recommendations -Monitor daily CBC, will transfuse again if hemoglobin <7 #Generalized rash #Left elbow cellulitis #infected insect bite #History of left groin abscess s/p I&D 05/11/2024 -Patient presented with a generalized pruitic maculopapular rash all over his body with scattered petechiae. -Pt is assuming the wound on his elbow and right forearm is from spider bite at the nursing facility -Pt is a poor historian therefore is unable to give direct information on the details of symptoms DDx : HSP (IgA vasculitis), Hypersensitivity reaction, spider bite , drug reaction Plan: -MRSA nasal screen pending -Blood culture pending -Hydrocortisone 100 Mg IV x 1 -Benadryl 25 Mg IV x 1 -Ceftriaxone 1 g IV daily started on [06/25? -Doxycycline 100 Mg IV twice daily started on [06/25? -CT of elbow with contrast ordered -wound care ordered - Infectious disease, Dr. Galindo consulted. Appreciate recommendations # HFpEF [55-60%] # CAD -On admission patient denied any SOB, PND, orthopnea and LE swelling. -On exam patient's lungs had decreased air entry globally Last transthoracic echocardiogram completed on 04/24/2024 findings include: Suboptimal images due to body habitus. Normal LV size and function. Mild LVH. Grade I diastolic dsyfunction. Estimated EF 55-60% Mild RV dilation. Normal RV function. Mild biatrial dilation. Trace MR, TR. Mild AV sclerosis without stenosis. There is a small circumferential pericardial effusion. No evidence of cardiac tamponade. Home medication Bumex 1 Mg p.o. twice daily, metoprolol XL 100 Mg p.o. daily, Atorvastatin 80 mg po HS Plan: ? Resume home medication ? Resume Bumex 1 Mg p.o. twice daily ? Resume metoprolol XL 100 Mg p.o. daily - Resumed Atorvastatin 80 mg po HS #Hypertensive urgency?resolved # History of primary hypertension -On admission patient's BP 196/99 which spontaneously reduced to 148/70 -resume home losartan 50mg Qday #Acute kidney injury - improving On admission patient CR 1.4 -->1.3 Baseline CR between 0.9?1.1 Plan: ? Renally dose medication ? Avoid nephrotoxic agents #Insulin-dependent diabetes mellitus type 2 [>14%] -Patient's last HbA1c from [05/11/2024] >14%, BG today 177 -Home medication insulin degludec 95 units twice daily and Ozempic 2 Mg SC weekly Plan: ? Started insulin glargine 40 units SC at bedtime ? SSI to cover for any blood glucose spikes #History of CVA with B/L endarterectomy #History of pulmonary embolism on Eliquis Plan: ? Eliquis on hold for now in light of acute blood loss anemia. #Obstructive sleep apnea #Obesity hypoventilation syndrome Plan: ? CPAP at night ordered Disposition: Medsurg DVT Prophylaxis: SCD QSHIFT GI Prophylaxis: Pantoprozol-40 IV BID Diet: carbohydrate consistent low Code status: Full Assessment and plan discussed with my attending physician Dr. Kasey Morgan (PGY-1)- Internal medicine resident Attending Provider Attestation/Addendum 54-year-old male with type 2 diabetes mellitus with hemoglobin A1c more than 14, hypertension, hyperlipidemia, carotid stenosis status post endarterectomy, pulmonary embolism on Eliquis who presented to the ER with generalized weakness and rash found to have abscess GI bleed with blood loss anemia subsequently started on Protonix and octreotide pending GI consultation. In addition, patient also noted to have left alk phos and second bite with superimposed infection however no evidence of abscess. Plan to continue octreotide, Protonix for GI bleed and antibiotic therapy for left elbow cellulitis. I reviewed above note and agree with findings and plans. I have also personally examined the patient with medicine team and went over assessment and plan with medical team including internal medicine veterinary technician and resident physician.
[2024-06-25] MEDS: ALBUTEROL/IPRATROPIUM (Duoneb) RT SOL 3 ML NEBU INH (19:21)
--- NOTE | 2024-06-25 19:22 | PD.IMCONS ---
HPI Data of Consult Requesting Physician: Óscar Morocho MD Primary Care Provider: Darrion Kevin MD Consult Narrative Reason for consult: Posthemorrhagic anemia H/H 6.5/21.4 History of present illness: 54 years old from his SNF with generalized body rash starting a week ago after a spider bite The rash is generalized Patient was found to have a hemoglobin hematocrit of 6.5 and 21.4 with a BUN/creatinine 53 and 1.3 I did evaluate the patient on his previous admission and underwent on 01/15/2024 and upper endoscopy which showed 1+ esophageal varices diffuse gastritis and presence of large amount of food in the body of the stomach Biopsies from the gastric antrum and cardia were negative for Helicobacter pylori Patient denies any history of hematemesis melena or bright red bleeding per rectum although is a poor historian From the chart review patient has a history of IDDM coronary artery disease CVA with bilateral endarterectomy pulmonary embolism on Eliquis hypertension obstructive sleep apnea cirrhosis liver congestive heart failure as per ejection fraction and left groin abscess requiring I&D and broad-spectrum antibiotics cc:: cc: Óscar Morocho MD Review of Systems Review of Systems Systems Reviewed: All systems reviewed, normal except as documented Meds Home Medications and Allergies Home Medications ?Medication ?Instructions ?Recorded ?Confirmed ?Type hydrocodone 10 mg-acetaminophen 1 tab PO Q4H PRN Pain, Moderate 10/22/23 06/25/24 History 325 mg tablet metoprolol succinate 100 mg 100 mg PO DAILY 10/22/23 06/25/24 History tablet,extended release 24 hr pregabalin 150 mg capsule 150 mg PO TID 10/22/23 06/25/24 History morphine 15 mg tablet,extended 15 mg PO QDAY PRN Pain, Severe 01/14/24 06/25/24 History release apixaban 5 mg tablet 5 mg PO BID 06/25/24 06/25/24 History ascorbic acid (vitamin C) 500 mg 500 mg PO BID 06/25/24 06/25/24 History tablet (Vitamin C) atorvastatin 80 mg tablet 80 mg PO QPM 06/25/24 06/25/24 History budesonide-formoterol HFA 160 2 puff inhalation BID 06/25/24 06/25/24 History mcg-4.5 mcg/actuation aerosol inhaler cyclobenzaprine 5 mg tablet 5 mg PO BID 06/25/24 06/25/24 History doxycycline hyclate 100 mg tablet 100 mg PO BID 06/25/24 06/25/24 History escitalopram oxalate 10 mg tablet 10 mg PO QDAY 06/25/24 06/25/24 History (Lexapro) insulin detemir U-100 100 unit/mL 95 unit subcut QDAY 06/25/24 06/25/24 History (3 mL) subcutaneous pen vitamin B complex-vitamin C-folic 1 tab PO QDAY 06/25/24 06/25/24 History acid 0.8 mg tablet (Sapphire-Holly) Allergies Allergy/AdvReac Type Severity Reaction Status Date / Time ketorolac Allergy Severe TONGUE Verified 07/26/23 22:55 SWELLS UP Exam Vital Signs Temp Pulse Resp BP Pulse Ox O2 Del Method O2 Flow Rate 97.1 F 64 20 148/88 H 94 L Room Air 2 06/25/24 16:00 06/25/24 16:00 06/25/24 16:00 06/25/24 16:00 06/25/24 16:00 06/25/24 16:00 06/25/24 12:00 Constitutional Comments: Chronically ill-appearing Routine Respiratory Exam Comments: Normal to auscultation Routine Abdominal Exam Comments: Soft nontender Results Labs 06/25/24 15:18 06/25/24 04:40 Labs: Short CBC 06/25/24 06/25/24 06/25/24 Range/Units 00:18 04:40 12:13 WBC 12.9 H 11.4 H 11.6 H (3.8-10.6) Thou/mm3 Hgb 6.7 L* 6.5 L* 7.0 L (13.5-16.0) g/dL Hct 22.4 L 21.4 L* 23.3 L (41.0-53.0) % Plt Count 262 D 238 248 (140-440) Thou/mm3 06/25/24 Range/Units 15:18 WBC (3.8-10.6) Thou/mm3 Hgb 7.7 L (13.5-16.0) g/dL Hct 25.4 L (41.0-53.0) % Plt Count (140-440) Thou/mm3 BMP 06/25/24 06/25/24 00:18 04:40 Sodium 139 142 Potassium 3.8 3.7 Chloride 103 104 Carbon Dioxide 29.1 27.7 BUN 52 H 53 H Creatinine 1.4 H 1.3 Glucose 238 H 177 H D Calcium 8.8 8.5 Cardiac Enzymes 06/25/24 Range/Units 00:18 Total Creatine Kinase 72 D (34-171) U/L Liver Function 06/25/24 06/25/24 Range/Units 00:18 04:40 Total Bilirubin < 0.2 L < 0.2 L (0.3-1.2) mg/dL AST 23 20 (0-34) U/L ALT 14 14 (10-49) U/L Alkaline Phosphatase 153 H 137 H (46-116) U/L Albumin 3.5 3.3 L (3.5-5.0) gm/dL Assessment and Plan Additional Assessment & Plan Additional Plan: # 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 midnight tonight except p.o. meds Will follow the patient Other medical problems include # Cirrhotic liver disease # Pulmonary embolism on Eliquis # Left elbow abscess # Allergic rash # IDDM # CVA requiring bilateral endarterectomy # CAROLYN # Congestive heart failure # History of left groin abscess requiring I&D in December of this year Thank you very much for the opportunity to participate in the care of this patient
[2024-06-25] MEDS: MORPHINE SULF INJ 10 MG/ML VIAL 2 MG IVP (21:03)
[2024-06-25] MEDS: ATORVASTATIN CALCIUM 20 MG TABLET 80 MG PO (21:04)
[2024-06-25] MEDS: INSULIN GLARGINE (Lantus) 5 UNIT/0.05 ML (PER 5 UNITS) 40 UNIT SC (21:56)
[2024-06-26] VITALS (16 sets, daily range): BP systolic 109–217; BP diastolic 52–129; PULSE 63–94; RESP 16–97; TEMP 36.1–36.2; O2SAT 93–99; BMI 44.9
[2024-06-26] MEDS: ALBUTEROL/IPRATROPIUM (Duoneb) RT SOL 3 ML NEBU INH ×4 (00:35→19:01)
[2024-06-26] MEDS: MORPHINE SULF INJ 10 MG/ML VIAL 2 MG IVP ×2 (01:08→07:50)
[2024-06-26 02:45] LABS: Hepatitis A Antibody IgM Non Reactive (Non React); Hepatitis B Core Antibody IgM Non Reactive (Non React); Hepatitis B Surface Antigen Non Reactive (Non React); Hepatitis C Antibody Non Reactive (Non React)
[2024-06-26] MEDS: PREGABALIN 75 MG CAPSULE 150 MG PO ×2 (05:00→21:11)
[2024-06-26] MEDS: DEXTROSE 50%-WATER INJ 50 ML SYRINGE IV (05:11)
--- NOTE | 2024-06-26 05:21 | PC.NURSE ---
patient's BG check is 54, called Dr Redman regarding this, patient is currently NPO for procedure, alert, awake, oriented, c/o sweating, wanting to eat. New orders received.
[2024-06-26 06:07] LABS: Basophils # (Auto) 0.1 Thou/mm3 (0.0-0.2); Basophils % (Auto) 1 % (0-2.5); Eosinophils # (Auto) 0.3 Thou/mm3 (0.0-0.5); Eosinophils % (Auto) 3 % (0-10); Hematocrit 25.8 % (41.0-53.0); Immature Granulocytes % (Auto) 3 % (0-0); Immature Granulocytes Auto 0.32 Thou/mm3 (0.00-0.00); Lymphocytes # (Auto) 1.8 Thou/mm3 (1.0-4.8); Lymphocytes % (Auto) 17 % (10-50); Mean Corpuscular HGB Conc 30.6 g/dl (31.0-37.0); Mean Corpuscular Hemoglobin 25.8 pg (25.0-35.0); Mean Corpuscular Volume 84 fL (80-100); Monocytes # (Auto) 1.1 Thou/mm3 (0.0-0.8); Monocytes % (Auto) 10 % (0-12); Neutrophils # (Auto) 7.3 Thou/mm3 (1.8-7.7); Neutrophils % (Auto) 67 % (37-80); Nucleated Red Blood Cell % 0 /100 WBC (0); Platelet Count 258 Thou/mm3 (140-440); RDW Standard Deviation 45.7 fL (35.1-43.9); Red Blood Count 3.06 Miln/mm3 (4.50-5.90)
[2024-06-26 06:08] LABS: Hemoglobin 7.9 g/dL (13.5-16.0)
[2024-06-26 06:32] LABS: Alanine Aminotransferase 13 U/L (10-49); Albumin, Serum 3.5 gm/dL (3.5-5.0); Albumin/Globulin Ratio 0.9 (1.2-2.2); Alkaline Phosphatase 145 U/L (46-116); Anion Gap 11 (7-16); Aspartate Amino Transferase 27 U/L (0-34); BUN/Creatinine Ratio 31 Ratio (12-20); Bilirubin,Total < 0.2 mg/dL (0.3-1.2); Blood Urea Nitrogen 47 mg/dL (9-23); Calcium 9.1 mg/dL (8.3-10.6); Calcium (Corrected) 9.5 mg/dL (8.5-10.1); Carbon Dioxide 24.9 mMol/L (20.0-31.0); Chloride 106 mMol/L (98-107); Creatinine (Component) 1.5 mg/dL (0.6-1.3); Estimated Creatinine Clearance 75.8 mL/min (>60); Osmolality,Calculated 292 (275-295); Sodium 142 mMol/L (136-145); Total Protein 7.5 gm/dL (5.7-8.2); eGFR 54 See Note
[2024-06-26 06:38] LABS: Glucose 39 mg/dL (74-106)
--- NOTE | 2024-06-26 07:20 | PC.NURSE ---
called Dr. Albarran regarding patient's blood glucose of 39 from morning labs, this result was before administering D50 for a blood glucose finger stick of 54. Rechecked finger stick blood glucose at 0550, BG at 99. Informed doctor ordered glucose redraw for lab to draw.
[2024-06-26] MEDS: DOXYCYCLINE INJ 100 MG in SODIUM CHLORIDE 0.9% (P) 100 ML IV ×2 (08:30→20:58)
[2024-06-26] MEDS: LOSARTAN POTASSIUM 25 MG TABLET 100 MG PO (08:31)
[2024-06-26] MEDS: cefTRIAXone/D5w 1gm IV premix 50 ML IV (08:59)
[2024-06-26] MEDS: OCTREOTIDE ACET INJ 1,000 MCG in SODIUM CHLORIDE 0.9% 100 ML 5.1 MCG IV (08:59)
[2024-06-26 09:26] LABS: Glucose 96 mg/dL (74-106)
[2024-06-26] MEDS: METOPROLOL SUCCINATE XL 25 MG TABCR 100 MG PO (09:29)
[2024-06-26] MEDS: HYDROmorphone INJ 2 MG/ML VIAL 1 MG IVP ×2 (09:30→15:24)
[2024-06-26] MEDS: hydrALAZINE INJ 20 MG/ML VIAL IV (09:30)
--- NOTE | 2024-06-26 10:46 | ESPR_ITS ---
Subjective Subjective Interval history: diffuse rash. may be from new anti depressant at [facility]. was in rehab for wound care for past month. has some abscesses on arms Exam Vital Signs Temp Pulse Resp BP Pulse Ox O2 Del Method O2 Flow Rate 97.0 F 72 18 198/120 H 96 Room Air 2 06/26/24 07:58 06/26/24 09:30 06/26/24 07:58 06/26/24 09:30 06/26/24 07:58 06/26/24 07:58 06/25/24 12:00 Narrative Exam doxy is the same iv and po. cause of rash unclear, but no recent abx noted other than levaquin and flagyl and he finished those a while ago it seems pt is groggy and a modest historian. Objective - Internal Medicine Labs 06/26/24 04:21 06/26/24 08:43 Labs: Laboratory Results - last 24 hr 06/25/24 06/25/24 06/25/24 04:30 04:40 12:13 WBC 11.6 H RBC 2.72 L Hgb 7.0 L Hct 23.3 L MCV 86 MCH 25.7 MCHC 30.0 L RDW Std Deviation 45.2 H Plt Count 248 Neut % (Auto) 86 H Lymph % (Auto) 7 L [place] % (Auto) 4 Eos % (Auto) 1 Baso % (Auto) 0 Neut # (Auto) 10.0 H Lymph # (Auto) 0.8 L [place] # (Auto) 0.4 Eos # (Auto) 0.1 Baso # (Auto) 0.0 Immature Gran # (Auto) 0.33 H Absolute Nucleated RBC 0.00 Immature Gran % 3 H Nucleated RBC % 0 Sodium Potassium Chloride Carbon Dioxide Anion Gap BUN Creatinine Estim Creat Clear Calc eGFR BUN/Creatinine Ratio Glucose Calculated Osmolality Calcium Corrected Calcium Total Bilirubin AST ALT Alkaline Phosphatase Total Protein Albumin Globulin Albumin/Globulin Ratio Hepatitis A IgM Ab Non Reactive Hep Bs Antigen Non Reactive Hep B Core IgM Ab Non Reactive Hepatitis C Antibody Non Reactive Blood Type AB Positive Antibody Screen NEGATIVE Crossmatch See Detail Blood Bank Wristband ID Yes 06/25/24 06/26/24 06/26/24 15:18 04:21 08:43 WBC 11.0 H RBC 3.06 L Hgb 7.7 L 7.9 L Hct 25.4 L 25.8 L MCV 84 MCH 25.8 MCHC 30.6 L RDW Std Deviation 45.7 H Plt Count 258 Neut % (Auto) 67 Lymph % (Auto) 17 [place] % (Auto) 10 Eos % (Auto) 3 Baso % (Auto) 1 Neut # (Auto) 7.3 Lymph # (Auto) 1.8 [place] # (Auto) 1.1 H Eos # (Auto) 0.3 Baso # (Auto) 0.1 Immature Gran # (Auto) 0.32 H Absolute Nucleated RBC 0.00 Immature Gran % 3 H Nucleated RBC % 0 Sodium 142 Potassium 4.0 Chloride 106 Carbon Dioxide 24.9 Anion Gap 11 BUN 47 H Creatinine 1.5 H Estim Creat Clear Calc 75.8 eGFR 54 L BUN/Creatinine Ratio 31 H Glucose 39 L* D 96 D Calculated Osmolality 292 Calcium 9.1 Corrected Calcium 9.5 Total Bilirubin < 0.2 L AST 27 ALT 13 Alkaline Phosphatase 145 H Total Protein 7.5 Albumin 3.5 Globulin 4.0 H Albumin/Globulin Ratio 0.9 L Hepatitis A IgM Ab Hep Bs Antigen Hep B Core IgM Ab Hepatitis C Antibody Blood Type Antibody Screen Crossmatch Blood Bank Wristband ID Assessment & Plan A&P Narrative likely allergic rash but unclear as to what the allergy is to, he does recall recent receipt of a new antidepressant at the [facility] and some spider bites on his elbows dm II obesity other problems as noted. await operative findings ok for rocephin 2 gm iv daily and po doxy 100 po bid for now, doxy is the same iv and po btw will look in again on wed. no pos cx yet to guide rx that is somewhat empirical Time Spent With Patient Time: Total time spent is greater than 50% in coordination of care (as documented) at patient's floor/unit and/or counseling patient:
[2024-06-26] MEDS: PANTOPRAZOLE INJ 40 MG VIAL IVP ×2 (10:54→21:02)
--- NOTE | 2024-06-26 11:04 | PC.SS ---
Follow up note: EGD today. Pt is from [facility] but is requesting a different SNF and prefers [facility]. SS has contacted Latoya from [facility].
[2024-06-26] MEDS: amLODIPine BESYLATE 5 MG TABLET 10 MG PO (11:56)
--- NOTE | 2024-06-26 12:44 | PC.NURSE ---
Rapid response team was called for patient having BP of 225/126. Patient is complaining of pain on his shoulders and back. Prior to [employer] patient received hydralazine, metoprolol, dilaudid and morphine for his pain and BP. Hospitalist, ICU nurse, staff nurses on patient bedside. Vital signs monitored. Patient on tele box CDU2 showing sinus rhythm. Patient denies chest pain and SOB. BP med given and last BP was 173/86. Patient transferred to room 358 and report given to SHAWNA Watts.
--- NOTE | 2024-06-26 13:42 | ESCONSULT_ITS ---
RE: JILL HIDALGO : 1970 DATE OF CONSULTATION: 06/26/2024 REFERRING PHYSICIAN: Dr. Morocho REASON FOR CONSULTATION: bacteremia HISTORY OF PRESENT ILLNESS: The patient is an unfortunate 54-year-old man. He is admitted with what appears to be some spider bites on his arms. They may be the result of acquisition of MRSA or staph aureus. There is not an outbreak of biting spiders. He has been in the custodial for about a month. PAST MEDICAL HISTORY: Include diabetes, obesity, chronic kidney disease, and he reports a jellyfish bite, which apparently got into a wetsuit and bit him in his groin some time ago. He has had surgery on that area more recently and has some more procedures planned for today. His medical problems also include a prior stroke, accounted for palliative care apparently a couple of years ago, although he has apparently done better since. There are no recent evaluations for palliative care. PMH: obesity other problems as noted by others PSH: debridement procedures fh: benign sh. benign pe: limited but non focal. impressive diffuse rash noted. he reports that it is itchy. He was just here in early May and was discharged after a relatively short stay with a groin abscess. He reports that he recently received a new antidepressant while at the custodial and this is associated with dermatitis. He offers a reasonable history. I will check on him superficially again on Wednesday. DT: 10:56:21 TT: 13:28:00 Ref: [id number] - TID: [id number] [facility]
[2024-06-26] MEDS: ONDANSETRON INJ 2 MG/ML INJ 2 ML 4 MG IV (15:24)
[2024-06-26] MEDS: INSULIN LISPRO (AdmeLOG) 1 UNIT/0.01 ML UNIT SC (16:33)
--- NOTE | 2024-06-26 16:47 | PD.RESEVENT ---
Documentation for date of: 06/26/24 Event Note Event Note: Patient had a rapid response event around 11:30 AM today due to hypertension. Blood pressure was noted to be systolic above 200 around 224 and diastolic around 120. Patient's blood pressure throughout the morning had been extremely high. Prior to the rapid response the patient had received Dilaudid 1 mg for pain, hydralazine 20 mg IV push x 1, given his losartan which was increased from 50-100, and metoprolol 100. Upon rechecking of the blood pressure patient's blood pressure had improved to 170 send no further interventions were made during the rapid response event. Prior to the rapid response patient had already been upgraded to telemetry but due to the fact beds were not available he remained hospitalized on the third floor on med/tele. Hydralazine was added as a as needed medication for systolic blood pressure above 180. Patient did not have complaints during the episode of headache, changes in vision, changes in mentation or any other associated symptoms of hypertensive emergency. He stated that he was in a lot of pain and that was the primary reason that his blood pressure was elevated. We will continue to add antihypertensive agents but are pending EGD and trying to hold p.o. medications. Plan of care discussed with supervising attending Dr. Kasey Snyder M.D. PGY-3
--- NOTE | 2024-06-26 18:03 | PD.RESPRO ---
Documentation for date of: 06/26/24 Subjective Subjective Interval history: 06/26: no acute overnight events. Patient is seen and examined at bedside patient continues to have blood pressure systolic above 150s. Patient states that his blood pressure is high because he is in a lot of pain from his arm. Patient is requesting Dilaudid 4 mg and explained to the patient that he already received morphine and a high dose of Dilaudid will carry its own side effects. Patient is given 1 mg of Dilaudid and 2 mg of morphine this morning but he continues to state that he is in 10 out of 10 pain. He mentions that at home he takes 10 mg of Dilaudid and smokes marijuana which helps subside the pain . The diffuse pruritic rash is mildly improved, Pt recently started escitalopram which could be contribulatory faction to the skin reaction. and CT of the left elbow showed cellulitis with no bone destruction. Patient is n.p.o. and will undergo EGD today. wound care is on board. Exam Vital Signs Temp Pulse Resp BP Pulse Ox O2 Del Method O2 Flow Rate 97.0 F 76 18 114/52 L 99 Room Air 2 06/26/24 16:00 06/26/24 16:00 06/26/24 16:00 06/26/24 16:00 06/26/24 16:00 06/26/24 16:06/26/24 16:00 Narrative Exam GENERAL: A&Ox3 . Awake, Not in acute distress, obese male NEURO: no focal neurological deficits HEENT: Atraumatic, Normocephalic. mucous membranes moist. Eyes open, symmetrical, & clear HEART: Normal Heart Sounds LUNGS: Coarse breath sounds with wheezing bilaterally ABDOMEN: soft, non-distended, non-tender, bowel sounds heard, no guarding or rebound tenderness SKIN: Generalized maculopapular rash over chest back abdomen arms and legs. Also multiple scattered petechiae, would on L. elbow and right forearm. EXTREMITIES: No edema, tenderness, able to move all 4 extremities, pedal pulses palpated Additional findings Additional findings: Objective Labs 06/27/24 06:17 06/27/24 06:17 Labs: Laboratory Results - last 24 hr 06/25/24 06/26/24 06/26/24 04:30 04:21 08:43 WBC 11.0 H RBC 3.06 L Hgb 7.9 L Hct 25.8 L MCV 84 MCH 25.8 MCHC 30.6 L RDW Std Deviation 45.7 H Plt Count 258 Neut % (Auto) 67 Lymph % (Auto) 17 [place] % (Auto) 10 Eos % (Auto) 3 Baso % (Auto) 1 Neut # (Auto) 7.3 Lymph # (Auto) 1.8 [place] # (Auto) 1.1 H Eos # (Auto) 0.3 Baso # (Auto) 0.1 Immature Gran # (Auto) 0.32 H Absolute Nucleated RBC 0.00 Immature Gran % 3 H Nucleated RBC % 0 Sodium 142 Potassium 4.0 Chloride 106 Carbon Dioxide 24.9 Anion Gap 11 BUN 47 H Creatinine 1.5 H Estim Creat Clear Calc 75.8 eGFR 54 L BUN/Creatinine Ratio 31 H Glucose 39 L* D 96 D Calculated Osmolality 292 Calcium 9.1 Corrected Calcium 9.5 Total Bilirubin < 0.2 L AST 27 ALT 13 Alkaline Phosphatase 145 H Total Protein 7.5 Albumin 3.5 Globulin 4.0 H Albumin/Globulin Ratio 0.9 L Hepatitis A IgM Ab Non Reactive Hep Bs Antigen Non Reactive Hep B Core IgM Ab Non Reactive Hepatitis C Antibody Non Reactive Quality Measures Quality Measures none Assessment & Plan Assessment Current Active Medications: Generic Name Dose Route Start Last Admin Trade Name Freq PRN Reason Stop Dose Admin Acetaminophen 650 mg 06/25/24 11:33 Acetaminophen 325 Mg Tablet PO 07/25/24 04:27 Q6H PRN Fever >100.4 or Pain(1-3) Hydrocodone Bitart/Acetaminophen 1 tab 06/26/24 11:12 Hydrocodone/Apap 5/325 Tablet PO 06/30/24 04:33 Q4HR PRN PAIN SCALE 4-6 Albuterol/Ipratropium 3 ml 06/25/24 19:00 06/26/24 13:05 Albuterol/Ipratropium (Duoneb) Rt Radha 3 Ml Nebu INH 07/25/24 18:59 3 ml Q6HRRT RINA Administration Amlodipine Besylate 10 mg 06/26/24 12:00 06/26/24 11:56 Amlodipine Besylate 5 Mg Tablet PO 07/26/24 11:59 10 mg QDAY RINA Administration Atorvastatin Calcium 80 mg 06/25/24 21:00 06/25/24 21:04 Atorvastatin Calcium 20 Mg Tablet PO 07/25/24 20:59 80 mg HS RINA Administration Bumetanide 1 mg 06/25/24 09:00 06/26/24 09:30 Bumetanide 0.5 Mg Tablet PO 07/25/24 08:59 Not Given BID RINA Cyclobenzaprine HCl 5 mg 06/25/24 09:00 06/26/24 09:31 Cyclobenzaprine 5 Mg Tablet PO 07/25/24 08:59 Not Given BID RINA Dextrose 50 ml 06/25/24 05:04 06/26/24 05:11 Dextrose 50%-Water Inj 50 Ml Syringe IV 07/25/24 05:03 50 ml Q15MIN PRN Administration BG <50 OR BG <70 & pt unresponsive Glucagon 1 mg 06/25/24 05:04 Glucagon Inj 1 Mg Vial IM Q15MIN PRN BG <70, and no IV access Hydralazine HCl 10 mg 06/26/24 11:46 Hydralazine Inj 20 Mg/Ml Vial IVP 07/26/24 11:45 Q6H PRN SPB >180 Hydromorphone HCl 1 mg 06/26/24 09:09 06/26/24 15:24 Hydromorphone Inj 2 Mg/Ml Vial IVP 07/01/24 09:08 1 mg Q4HR PRN Administration Pain 7-10 Ceftriaxone Sodium/Dextrose 50 mls @ 100 mls/hr 06/25/24 09:00 06/26/24 09:29 Rocephin/D5w 1gm Iv Premix IV 07/02/24 08:59 Infused QDAY RINA Infusion Doxycycline Hyclate 100 mg/ 100 mls @ 100 mls/hr 06/25/24 21:00 06/26/24 09:30 Sodium Chloride IV 07/02/24 20:59 Infused BID RINA Infusion Octreotide Acetate 1,000 mcg/ 102 mls @ 5.1 mls/hr 06/25/24 12:30 06/26/24 08:59 Sodium Chloride IV 06/30/24 12:30 50 mcg/hr .Q20H RINA 5.1 mls/hr Administration Protocol 50 MCG/HR Promethazine HCl 12.5 mg/ 50.5 mls @ 2.5 mls/min 06/26/24 17:19 Sodium Chloride IV 07/26/24 17:18 Q6HR PRN NAUSEA OR VOMITING Protocol Insulin Glargine 20 unit 06/26/24 21:00 Insulin Glargine (Lantus) 5 Unit/0.05 Ml (Per 5 Units) SC 07/26/24 20:59 BID RINA Insulin Human Lispro 0 unit 06/25/24 07:30 06/26/24 16:33 Insulin Lispro (Admelog) 1 Unit/0.01 Ml Unit SC 07/25/24 07:29 4 unit ACHS RINA Administration Protocol Losartan Potassium 50 mg 06/25/24 09:00 06/26/24 09:31 Losartan Potassium 25 Mg Tablet PO 07/25/24 08:59 Not Given QDAY RINA Metoprolol Succinate 100 mg 06/25/24 09:00 06/26/24 09:29 Metoprolol Succinate Xl 25 Mg Tabcr PO 07/25/24 08:59 100 mg QDAY RINA Administration Ondansetron HCl 4 mg 06/25/24 04:28 06/26/24 15:24 Ondansetron Inj 2 Mg/Ml Inj 2 Ml IV 07/25/24 04:27 4 mg Q6H PRN Administration NAUSEA OR VOMITING Protocol Pantoprazole Sodium 40 mg 06/25/24 09:45 06/26/24 10:54 Pantoprazole Inj 40 Mg Vial IVP 07/25/24 09:44 40 mg BID RINA Administration Pregabalin 150 mg 06/25/24 06:00 06/26/24 14:00 Pregabalin 75 Mg Capsule PO 07/25/24 05:59 Not Given TID RINA Sennosides 1 tab 06/25/24 09:00 06/26/24 10:54 Senna Tablet PO 07/25/24 08:59 Not Given QDAY [facility] Protocol Plan Patient currently somnolent and poor historian. History obtained from both chart review and patient's testimony. Mr. Fisher is a 54-year-old male with past medical history of insulin-dependent diabetes mellitus [>14%], CAD, HFpEF [55-60%], CVA with b/l endarterectomy, pulmonary embolism on Eliquis, essential hypertension, obstructive sleep apnea, OHS/CAROLYN, cirrhosis and left groin abscess s/p I&D 05/11/24. He presented to the to the emergency department with a chief complaint of generalized pruritic rash from [facility]. Patient is admitted for Upper GI bleed rewuiring transfusion and cellulitis with failed outpatient p.o. antibiotics. #Acute blood loss anemia secondary to #upper GI bleed #Hx of cirrhosis -On admission patient's Hb 6.7 --> post transfusion Hgb 7.7 and Hct 25.4 -Baseline Hgb between 7?9 DDx: Anemia of chronic disease, peptic ulcer disease, inflammatory anemia Plan: -Type and screen -1 unit PRBC transfused 06/25 -Posttransfusion H&H -Avoid NSAIDs -Pantoprazole 40 Mg IVP twice daily -Octreotide drip started -GI consulted, appreciate recommendations -Monitor daily CBC, will transfuse again if hemoglobin <7 #Generalized rash #Left elbow cellulitis #infected insect bite #History of left groin abscess s/p I&D 05/11/2024 -Patient presented with a generalized pruitic maculopapular rash all over his body with scattered petechiae. -Pt is assuming the wound on his elbow and right forearm is from spider bite at the nursing facility -Pt is a poor historian therefore is unable to give direct information on the details of symptoms -t started escitalopram as a new medicationa and soon after Pt has this new diffuse rash. Although the rash is not improving the pruitis does improve with Benadryl DDx : HSP (IgA vasculitis), Hypersensitivity reaction to escitalopram, spider bite , drug reaction Plan: -MRSA nasal screen pending -Blood culture pending -Hydrocortisone 100 Mg IV x 1 -Benadryl 25 Mg IV x 1 -Ceftriaxone 1 g IV daily started on [06/25? -Doxycycline 100 Mg IV twice daily started on [06/25? -CT of elbow with contrast ordered -wound care ordered -Hold home escitalopram - Infectious disease, Dr. Galindo consulted. Appreciate recommendations # HFpEF [55-60%] # CAD -On admission patient denied any SOB, PND, orthopnea and LE swelling. -On exam patient's lungs had decreased air entry globally Last transthoracic echocardiogram completed on 04/24/2024 findings include: Suboptimal images due to body habitus. Normal LV size and function. Mild LVH. Grade I diastolic dsyfunction. Estimated EF 55-60% Mild RV dilation. Normal RV function. Mild biatrial dilation. Trace MR, TR. Mild AV sclerosis without stenosis. There is a small circumferential pericardial effusion. No evidence of cardiac tamponade. Home medication Bumex 1 Mg p.o. twice daily, metoprolol XL 100 Mg p.o. daily, Atorvastatin 80 mg po HS Plan: ? Resume home medication ? Resume Bumex 1 Mg p.o. twice daily ? Resume metoprolol XL 100 Mg p.o. daily - Resumed Atorvastatin 80 mg po HS #Hypertensive urgency?resolved # History of primary hypertension -On admission patient's BP 196/99 which spontaneously reduced to 148/70 -resume home losartan 50mg Qday #Acute kidney injury - improving On admission patient CR 1.4 -->1.3 Baseline CR between 0.9?1.1 Plan: ? Renally dose medication ? Avoid nephrotoxic agents #Insulin-dependent diabetes mellitus type 2 [>14%] -Patient's last HbA1c from [05/11/2024] >14%, BG today 177 -Home medication insulin degludec 95 units twice daily and Ozempic 2 Mg SC weekly Plan: ? Started insulin glargine 40 units SC at bedtime ? SSI to cover for any blood glucose spikes #History of CVA with B/L endarterectomy #History of pulmonary embolism on Eliquis Plan: ? Eliquis on hold for now in light of acute blood loss anemia. #Obstructive sleep apnea #Obesity hypoventilation syndrome Plan: ? CPAP at night ordered Disposition: Medsurg for EGD pending DVT Prophylaxis: SCD QSHIFT GI Prophylaxis: Pantoprozol-40 IV BID Diet: carbohydrate consistent low Code status: Full Assessment and plan discussed with my attending physician Dr. Kasey Morgan (PGY-1)- Internal medicine resident Senior resident attestation: Patient evaluated and examined at the bedside, plan of care discussed with rest of the team including my attending physician, except as noted. Patient is a 54-year-old male past medical history of DM, CAD, HFpEF, history of pulm embolism on Eliquis, history of hypertension, CAROLYN, cirrhosis and left lower abscess status post I&D. Patient reported the spider bite on the elbow. Found to have left elbow cellulitis and generalized rash. Rash likely drug-induced possible differential also includes functional purpura versus drug rash. Will discontinue escitalopram as possible cause. Continue with IV antibiotics for cellulitis. GI consult for possible GI bleed, patient was taken to EGD but due to continuous vomiting plan was made to forego with the procedure due to risk for aspiration. Patient started on clear liquid diet and will have endoscopy tomorrow. Also had diarrhea overnight, started contact precautions and ordered C. difficile stool testing. #Cellulitis #Pressure ulcers #CVA #Diverticulitis #CAROLYN Quresh PGY2 Attending Provider Attestation/Addendum 54-year-old male with type 2 diabetes mellitus with hemoglobin A1c more than 14, hypertension, hyperlipidemia, carotid stenosis status post endarterectomy, pulmonary embolism on Eliquis who presented to the ER with generalized weakness and rash found to have abscess GI bleed with blood loss anemia subsequently started on Protonix and octreotide pending GI consultation. In addition, patient also noted to have left alk phos and second bite with superimposed infection however no evidence of abscess. Plan to continue octreotide, Protonix for GI bleed and antibiotic therapy for left elbow cellulitis. Patient's rash likely related to Lexapro for which we will discontinue and monitor closely. No evidence of TTP. I reviewed above note and agree with findings and plans. I have also personally examined the patient with medicine team and went over assessment and plan with medical team including financial analyst intern and resident physician.
--- NOTE | 2024-06-26 19:41 | PC.NURSE ---
Graciela updated with plan of care at bedside.
--- NOTE | 2024-06-26 19:50 | PD.IMPROG ---
Documentation for date of: 06/26/24 Subjective Subjective Interval history: Hemoglobin hematocrit 7.9 and 25.8 Patient was brought in for an upper endoscopy to the operating room However he started having copious amounts of vomiting most likely due to his underlying gastric motility disorder and presence of food in the body of the stomach from yesterday For the safety of the patient I canceled the upper endoscopy Clear liquid diet till midnight today N.p.o. and then upper endoscopy hopefully tomorrow Exam Vital Signs Temp Pulse Resp BP Pulse Ox O2 Del Method O2 Flow Rate 97.0 F 72 19 114/52 L 99 Room Air 2 06/26/24 16:00 06/26/24 18:57 06/26/24 18:57 06/26/24 16:00 06/26/24 18:57 06/26/24 16:00 06/26/24 16:00 Constitutional Comments: Chronically ill-appearing Routine Respiratory Exam Comments: Normal to auscultation Routine Abdominal Exam Comments: Soft nontender Objective Labs 06/26/24 04:21 06/26/24 08:43 Labs: Laboratory Results - last 24 hr 06/25/24 06/26/24 06/26/24 04:30 04:21 08:43 WBC 11.0 H RBC 3.06 L Hgb 7.9 L Hct 25.8 L MCV 84 MCH 25.8 MCHC 30.6 L RDW Std Deviation 45.7 H Plt Count 258 Neut % (Auto) 67 Lymph % (Auto) 17 [place] % (Auto) 10 Eos % (Auto) 3 Baso % (Auto) 1 Neut # (Auto) 7.3 Lymph # (Auto) 1.8 [place] # (Auto) 1.1 H Eos # (Auto) 0.3 Baso # (Auto) 0.1 Immature Gran # (Auto) 0.32 H Absolute Nucleated RBC 0.00 Immature Gran % 3 H Nucleated RBC % 0 Sodium 142 Potassium 4.0 Chloride 106 Carbon Dioxide 24.9 Anion Gap 11 BUN 47 H Creatinine 1.5 H Estim Creat Clear Calc 75.8 eGFR 54 L BUN/Creatinine Ratio 31 H Glucose 39 L* D 96 D Calculated Osmolality 292 Calcium 9.1 Corrected Calcium 9.5 Total Bilirubin < 0.2 L AST 27 ALT 13 Alkaline Phosphatase 145 H Total Protein 7.5 Albumin 3.5 Globulin 4.0 H Albumin/Globulin Ratio 0.9 L Hepatitis A IgM Ab Non Reactive Hep Bs Antigen Non Reactive Hep B Core IgM Ab Non Reactive Hepatitis C Antibody Non Reactive Impressions Impression: # Acute posthemorrhagic anemia # Gastric motility disorder # Hemoccult positive stool Reschedule the upper endoscopy for tomorrow Assessment & Plan A&P Narrative likely allergic rash but unclear as to what the allergy is to, he does recall recent receipt of a new [facility]ant [facility] the [facility] and some spider bites on his elbows dm II obesity other problems as noted. await operative findings ok for rocephin 2 gm iv daily and po doxy 100 po bid for now, doxy is the same iv and po btw will look in again on wed. no pos cx yet to guide rx that is somewhat empirical Time Spent With Patient Time: Total time spent is greater than 50% in coordination of care (as documented) at patient's floor/unit and/or counseling patient:
[2024-06-26] MEDS: Silvasorb Gel 45 ML TUBE TOP (20:58)
[2024-06-26] MEDS: ATORVASTATIN CALCIUM 20 MG TABLET 80 MG PO (21:11)
[2024-06-26] MEDS: CYCLObenzaPRINE 5 MG TABLET PO (21:11)
[2024-06-26] MEDS: BUMETANIDE 0.5 MG TABLET 1 MG PO (21:11)
[2024-06-27] VITALS (18 sets, daily range): BP systolic 118–187; BP diastolic 67–93; PULSE 67–79; RESP 14–97; TEMP 36.1–36.6; O2SAT 92–100
[2024-06-27] MEDS: ALBUTEROL/IPRATROPIUM (Duoneb) RT SOL 3 ML NEBU INH ×3 (00:16→13:10)
[2024-06-27 02:04] LABS: OBS QC OK? Yes
[2024-06-27 02:07] LABS: Occult Blood, Stool Positive (Negative)
[2024-06-27 02:08] LABS: OBS Card Lot # 22002; OBS Developer Lot # 23003
[2024-06-27 02:10] LABS: OBS Performed By 10PEA5
[2024-06-27] MEDS: PREGABALIN 75 MG CAPSULE 150 MG PO ×2 (05:09→21:04)
[2024-06-27] MEDS: DEXTROSE 50%-WATER INJ 50 ML SYRINGE IV (06:21)
[2024-06-27 06:32] LABS: Basophils # (Auto) 0.1 Thou/mm3 (0.0-0.2); Basophils % (Auto) 0 % (0-2.5); Eosinophils # (Auto) 0.3 Thou/mm3 (0.0-0.5); Eosinophils % (Auto) 2 % (0-10); Hematocrit 28.9 % (41.0-53.0); Immature Granulocytes % (Auto) 2 % (0-0); Immature Granulocytes Auto 0.21 Thou/mm3 (0.00-0.00); Lymphocytes # (Auto) 1.1 Thou/mm3 (1.0-4.8); Lymphocytes % (Auto) 9 % (10-50); Mean Corpuscular HGB Conc 29.8 g/dl (31.0-37.0); Mean Corpuscular Hemoglobin 25.6 pg (25.0-35.0); Mean Corpuscular Volume 86 fL (80-100); Monocytes # (Auto) 1.5 Thou/mm3 (0.0-0.8); Monocytes % (Auto) 11 % (0-12); Neutrophils % (Auto) 76 % (37-80); Nucleated Red Blood Cell % 0 /100 WBC (0); Platelet Count 248 Thou/mm3 (140-440); RDW Standard Deviation 46.8 fL (35.1-43.9); Red Blood Count 3.36 Miln/mm3 (4.50-5.90); White Blood Count 13.1 Thou/mm3 (3.8-10.6)
[2024-06-27 06:44] LABS: Hemoglobin 8.6 g/dL (13.5-16.0)
[2024-06-27 06:54] LABS: Ammonia 35 uMol/L (11-32)
[2024-06-27 08:04] LABS: Alanine Aminotransferase 14 U/L (10-49); Albumin, Serum 2.5 gm/dL (3.5-5.0); Albumin/Globulin Ratio 0.8 (1.2-2.2); Alkaline Phosphatase 108 U/L (46-116); Anion Gap 12 (7-16); Aspartate Amino Transferase 22 U/L (0-34); BUN/Creatinine Ratio 36 Ratio (12-20); Bilirubin,Total < 0.2 mg/dL (0.3-1.2); Blood Urea Nitrogen 62 mg/dL (9-23); Calcium (Corrected) 9.2 mg/dL (8.5-10.1); Carbon Dioxide 21.4 mMol/L (20.0-31.0); Chloride 110 mMol/L (98-107); Creatinine (Component) 1.7 mg/dL (0.6-1.3); Estimated Creatinine Clearance 64.3 mL/min (>60); Globulin 3.2 gm/dL (2.3-3.5); Glucose 59 mg/dL (74-106); Osmolality,Calculated 300 (275-295); Potassium 3.7 mMol/L (3.4-5.1); Sodium 143 mMol/L (136-145); Thyroid Stimulating Hormone 0.61 uIU/mL (0.55-4.78); Total Protein 5.7 gm/dL (5.7-8.2); eGFR 47 See Note
--- NOTE | 2024-06-27 08:32 | PC.SS ---
Late note 06-26-23: SS met with patient regarding his d/c plan. Pt is alert/oriented. Pt was admitted for Cellulitis, Rash. Pt confirmed demographic and contact information is correct on facesheet. Pt is from [facility]. Pt transfers with assistance to wheelchair. Pt requires assistance with all ADLs. Pt named his life partner, Iraida Anaya medical decision maker if he is unable. Patient is requesting a different SNF. Pt is aware if a different SNF do not accept he can return to [facility] or d/c home. D/C plan: SNF Next of Kin: Iraida Héctor, life partner, phone# [phone] PCP: Dr. Darrion Kevin Address: Correct on facesheet
--- NOTE | 2024-06-27 09:08 | PC.NURSE ---
patient refused medications and assessment
--- NOTE | 2024-06-27 09:11 | PC.NURSE ---
Patients blood sugar of 106 will continue to monitor
--- NOTE | 2024-06-27 09:30 | PC.NURSE ---
patient is tired and wants to sleep
--- NOTE | 2024-06-27 09:57 | PC.NURSE ---
Patient is off his leads I woke him up and asked him if he turn over so i could fix them. Patient woke up looked at me and responded ok. Patient continued to sleep will continue to monitor patient.
[2024-06-27 10:24] LABS: Clostridium Difficile PCR Negative (Negative)
--- NOTE | 2024-06-27 14:42 | PD.RESPRO ---
Documentation for date of: 06/27/24 Exam Vital Signs Temp Pulse Resp BP Pulse Ox O2 Del Method O2 Flow Rate 97.1 F 72 18 167/91 H 99 Room Air 2 06/27/24 12:00 06/27/24 13:11 06/27/24 13:11 06/27/24 12:00 06/27/24 13:11 06/27/24 12:00 06/27/24 00:18 Objective Labs 06/27/24 06:17 06/27/24 06:17 Labs: Laboratory Results - last 24 hr 06/27/24 06/27/24 06/27/24 00:14 01:43 06:17 WBC 13.1 H RBC 3.36 L Hgb 8.6 L Hct 28.9 L MCV 86 MCH 25.6 MCHC 29.8 L RDW Std Deviation 46.8 H Plt Count 248 Neut % (Auto) 76 Lymph % (Auto) 9 L [place] % (Auto) 11 Eos % (Auto) 2 Baso % (Auto) 0 Neut # (Auto) 10.0 H Lymph # (Auto) 1.1 [place] # (Auto) 1.5 H Eos # (Auto) 0.3 Baso # (Auto) 0.1 Immature Gran # (Auto) 0.21 H Absolute Nucleated RBC 0.00 Immature Gran % 2 H Nucleated RBC % 0 Sodium 143 Potassium 3.7 Chloride 110 H Carbon Dioxide 21.4 Anion Gap 12 BUN 62 H Creatinine 1.7 H Estim Creat Clear Calc 64.3 eGFR 47 L BUN/Creatinine Ratio 36 H Glucose 59 L Calculated Osmolality 300 H Calcium 8.0 L Corrected Calcium 9.2 Total Bilirubin < 0.2 L AST 22 ALT 14 Alkaline Phosphatase 108 D Ammonia 35 H Total Protein 5.7 Albumin 2.5 L D Globulin 3.2 Albumin/Globulin Ratio 0.8 L TSH 0.61 Stool Occult Blood Positive A Stl C. diff Tox B Gene Negative Quality Measures Quality Measures none Assessment & Plan Assessment Current Active Medications: Generic Name Dose Route Start Last Admin Trade Name Freq PRN Reason Stop Dose Admin Acetaminophen 650 mg 06/25/24 11:33 Acetaminophen 325 Mg Tablet PO 07/25/24 04:27 Q6H PRN Fever >100.4 or Pain(1-3) Hydrocodone Bitart/Acetaminophen 1 tab 06/26/24 11:12 Hydrocodone/Apap 5/325 Tablet PO 06/30/24 04:33 Q4HR PRN PAIN SCALE 4-6 Albuterol/Ipratropium 3 ml 06/25/24 19:00 06/27/24 13:10 Albuterol/Ipratropium (Duoneb) Rt Radha 3 Ml Nebu INH 07/25/24 18:59 3 ml Q6HRRT RINA Administration Amlodipine Besylate 10 mg 06/26/24 12:00 06/27/24 09:05 Amlodipine Besylate 5 Mg Tablet PO 07/26/24 11:59 Not Given QDAY RINA Atorvastatin Calcium 80 mg 06/25/24 21:00 06/26/24 21:11 Atorvastatin Calcium 20 Mg Tablet PO 07/25/24 20:59 80 mg HS RINA Administration Bumetanide 1 mg 06/25/24 09:00 06/27/24 09:05 Bumetanide 0.5 Mg Tablet PO 07/25/24 08:59 Not Given BID RINA Cyclobenzaprine HCl 5 mg 06/25/24 09:00 06/27/24 09:06 Cyclobenzaprine 5 Mg Tablet PO 07/25/24 08:59 Not Given BID RINA Dextrose 50 ml 06/25/24 05:04 06/27/24 06:21 Dextrose 50%-Water Inj 50 Ml Syringe IV 07/25/24 05:03 50 ml Q15MIN PRN Administration BG <50 OR BG <70 & pt unresponsive Glucagon 1 mg 06/25/24 05:04 Glucagon Inj 1 Mg Vial IM Q15MIN PRN BG <70, and no IV access Hydralazine HCl 10 mg 06/26/24 11:46 Hydralazine Inj 20 Mg/Ml Vial IVP 07/26/24 11:45 Q6H PRN SPB >180 Hydromorphone HCl 1 mg 06/26/24 09:09 06/26/24 15:24 Hydromorphone Inj 2 Mg/Ml Vial IVP 07/01/24 09:08 1 mg Q4HR PRN Administration Pain 7-10 Ceftriaxone Sodium/Dextrose 50 mls @ 100 mls/hr 06/25/24 09:00 06/27/24 09:15 Rocephin/D5w 1gm Iv Premix IV 07/02/24 08:59 Not Given QDAY RINA Doxycycline Hyclate 100 mg/ 100 mls @ 100 mls/hr 06/25/24 21:00 06/27/24 09:15 Sodium Chloride IV 07/02/24 20:59 Not Given BID RINA Octreotide Acetate 1,000 mcg/ 102 mls @ 5.1 mls/hr 06/25/24 12:30 06/26/24 08:59 Sodium Chloride IV 06/30/24 12:30 50 mcg/hr .Q20H RINA 5.1 mls/hr Administration Protocol 50 MCG/HR Promethazine HCl 12.5 mg/ 50.5 mls @ 2.5 mls/min 06/26/24 17:19 Sodium Chloride IV 07/26/24 17:18 Q6HR PRN NAUSEA OR VOMITING Protocol Insulin Glargine 20 unit 06/26/24 21:00 06/27/24 09:06 Insulin Glargine (Lantus) 5 Unit/0.05 Ml (Per 5 Units) SC 07/26/24 20:59 Not Given BID [facility] Insulin Human Lispro 0 unit 06/25/24 07:30 06/27/24 11:11 Insulin Lispro (Admelog) 1 Unit/0.01 Ml Unit SC 07/25/24 07:29 Not Given ACHS [facility] Protocol Losartan Potassium 50 mg 06/25/24 09:00 06/27/24 09:06 Losartan Potassium 25 Mg Tablet PO 07/25/24 08:59 Not Given QDAY [facility] Metoprolol Succinate 100 mg 06/25/24 09:00 06/27/24 09:06 Metoprolol Succinate Xl 25 Mg Tabcr PO 07/25/24 08:59 Not Given QDAY [facility] Ondansetron HCl 4 mg 06/25/24 04:28 06/26/24 15:24 Ondansetron Inj 2 Mg/Ml Inj 2 Ml IV 07/25/24 04:27 4 mg Q6H PRN Administration NAUSEA OR VOMITING Protocol Pantoprazole Sodium 40 mg 06/25/24 09:45 06/27/24 09:07 Pantoprazole Inj 40 Mg Vial IVP 07/25/24 09:44 Not Given BID RINA Pregabalin 150 mg 06/25/24 06:00 06/27/24 05:09 Pregabalin 75 Mg Capsule PO 07/25/24 05:59 150 mg TID RINA Administration Sennosides 1 tab 06/25/24 09:00 06/27/24 09:07 Senna Tablet PO 07/25/24 08:59 Not Given QDAY RINA Protocol
--- NOTE | 2024-06-27 15:13 | ESPR_ITS ---
Documentation for date of: 06/27/24 Subjective Subjective Interval history: Patient seen at bedside today. He is resting comfortably in bed. He has not been using any IV pain medications overnight. Patient's EGD was canceled due to significant amount of vomiting that he was having overnight. GI rescheduled EGD for today. Today patient has not complained of vomiting. Contact precautions were ordered for the patient for C. difficile concern. He denies any current diarrhea. Exam Vital Signs Temp Pulse Resp BP Pulse Ox O2 Del Method O2 Flow Rate 97.1 F 72 18 167/91 H 99 Room Air 2 06/27/24 12:00 06/27/24 13:11 06/27/24 13:11 06/27/24 12:00 06/27/24 13:11 06/27/24 12:00 06/27/24 00:18 Narrative Exam GENERAL: A&Ox3 . Awake, Not in acute distress, obese male NEURO: no focal neurological deficits HEENT: Atraumatic, Normocephalic. mucous membranes moist. Eyes open, symmetrical, & clear HEART: Normal Heart Sounds LUNGS: Coarse breath sounds with wheezing bilaterally ABDOMEN: soft, non-distended, non-tender, bowel sounds heard, no guarding or rebound tenderness SKIN: Generalized maculopapular rash over chest back abdomen arms and legs. Also multiple scattered petechiae, would on L. elbow and right forearm. Is improving EXTREMITIES: No edema, tenderness, able to move all 4 extremities, pedal pulses palpated Objective Labs 06/27/24 06:17 06/27/24 06:17 Labs: Laboratory Results - last 24 hr 06/27/24 06/27/24 06/27/24 00:14 01:43 06:17 WBC 13.1 H RBC 3.36 L Hgb 8.6 L Hct 28.9 L MCV 86 MCH 25.6 MCHC 29.8 L RDW Std Deviation 46.8 H Plt Count 248 Neut % (Auto) 76 Lymph % (Auto) 9 L [place] % (Auto) 11 Eos % (Auto) 2 Baso % (Auto) 0 Neut # (Auto) 10.0 H Lymph # (Auto) 1.1 [place] # (Auto) 1.5 H Eos # (Auto) 0.3 Baso # (Auto) 0.1 Immature Gran # (Auto) 0.21 H Absolute Nucleated RBC 0.00 Immature Gran % 2 H Nucleated RBC % 0 Sodium 143 Potassium 3.7 Chloride 110 H Carbon Dioxide 21.4 Anion Gap 12 BUN 62 H Creatinine 1.7 H Estim Creat Clear Calc 64.3 eGFR 47 L BUN/Creatinine Ratio 36 H Glucose 59 L Calculated Osmolality 300 H Calcium 8.0 L Corrected Calcium 9.2 Total Bilirubin < 0.2 L AST 22 ALT 14 Alkaline Phosphatase 108 D Ammonia 35 H Total Protein 5.7 Albumin 2.5 L D Globulin 3.2 Albumin/Globulin Ratio 0.8 L TSH 0.61 Stool Occult Blood Positive A Stl C. diff Tox B Gene Negative Quality Measures Quality Measures none Assessment & Plan Assessment Current Active Medications: Generic Name Dose Route Start Last Admin Trade Name Freq PRN Reason Stop Dose Admin Acetaminophen 650 mg 06/25/24 11:33 Acetaminophen 325 Mg Tablet PO 07/25/24 04:27 Q6H PRN Fever >100.4 or Pain(1-3) Hydrocodone Bitart/Acetaminophen 1 tab 06/26/24 11:12 Hydrocodone/Apap 5/325 Tablet PO 06/30/24 04:33 Q4HR PRN PAIN SCALE 4-6 Albuterol/Ipratropium 3 ml 06/25/24 19:00 06/27/24 13:10 Albuterol/Ipratropium (Duoneb) Rt Radha 3 Ml Nebu INH 07/25/24 18:59 3 ml Q6HRRT RINA Administration Amlodipine Besylate 10 mg 06/26/24 12:00 06/27/24 09:05 Amlodipine Besylate 5 Mg Tablet PO 07/26/24 11:59 Not Given QDAY RINA Atorvastatin Calcium 80 mg 06/25/24 21:00 06/26/24 21:11 Atorvastatin Calcium 20 Mg Tablet PO 07/25/24 20:59 80 mg HS RINA Administration Bumetanide 1 mg 06/25/24 09:00 06/27/24 09:05 Bumetanide 0.5 Mg Tablet PO 07/25/24 08:59 Not Given BID RINA Cyclobenzaprine HCl 5 mg 06/25/24 09:00 06/27/24 09:06 Cyclobenzaprine 5 Mg Tablet PO 07/25/24 08:59 Not Given BID RINA Dextrose 50 ml 06/25/24 05:04 06/27/24 06:21 Dextrose 50%-Water Inj 50 Ml Syringe IV 07/25/24 05:03 50 ml Q15MIN PRN Administration BG <50 OR BG <70 & pt unresponsive Glucagon 1 mg 06/25/24 05:04 Glucagon Inj 1 Mg Vial IM Q15MIN PRN BG <70, and no IV access Hydralazine HCl 10 mg 06/26/24 11:46 Hydralazine Inj 20 Mg/Ml Vial IVP 07/26/24 11:45 Q6H PRN SPB >180 Hydromorphone HCl 1 mg 06/26/24 09:09 06/26/24 15:24 Hydromorphone Inj 2 Mg/Ml Vial IVP 07/01/24 09:08 1 mg Q4HR PRN Administration Pain 7-10 Ceftriaxone Sodium/Dextrose 50 mls @ 100 mls/hr 06/25/24 09:00 06/27/24 09:15 Rocephin/D5w 1gm Iv Premix IV 07/02/24 08:59 Not Given QDAY [facility] Doxycycline Hyclate 100 mg/ 100 mls @ 100 mls/hr 06/25/24 21:00 06/27/24 09:15 Sodium Chloride IV 07/02/24 20:59 Not Given BID RINA Octreotide Acetate 1,000 mcg/ 102 mls @ 5.1 mls/hr 06/25/24 12:30 06/26/24 08:59 Sodium Chloride IV 06/30/24 12:30 50 mcg/hr .Q20H RINA 5.1 mls/hr Administration Protocol 50 MCG/HR Promethazine HCl 12.5 mg/ 50.5 mls @ 2.5 mls/min 06/26/24 17:19 Sodium Chloride IV 07/26/24 17:18 Q6HR PRN NAUSEA OR VOMITING Protocol Insulin Glargine 20 unit 06/26/24 21:00 06/27/24 09:06 Insulin Glargine (Lantus) 5 Unit/0.05 Ml (Per 5 Units) SC 07/26/24 20:59 Not Given BID RINA Insulin Human Lispro 0 unit 06/25/24 07:30 06/27/24 11:11 Insulin Lispro (Admelog) 1 Unit/0.01 Ml Unit SC 07/25/24 07:29 Not Given ACHS [facility] Protocol Losartan Potassium 50 mg 06/25/24 09:00 06/27/24 09:06 Losartan Potassium 25 Mg Tablet PO 07/25/24 08:59 Not Given QDAY [facility] Metoprolol Succinate 100 mg 06/25/24 09:00 06/27/24 09:06 Metoprolol Succinate Xl 25 Mg Tabcr PO 07/25/24 08:59 Not Given QDAY [facility] Ondansetron HCl 4 mg 06/25/24 04:28 06/26/24 15:24 Ondansetron Inj 2 Mg/Ml Inj 2 Ml IV 07/25/24 04:27 4 mg Q6H PRN Administration NAUSEA OR VOMITING Protocol Pantoprazole Sodium 40 mg 06/25/24 09:45 06/27/24 09:07 Pantoprazole Inj 40 Mg Vial IVP 07/25/24 09:44 Not Given BID RINA Pregabalin 150 mg 06/25/24 06:00 06/27/24 14:55 Pregabalin 75 Mg Capsule PO 07/25/24 05:59 Not Given TID [facility] Sennosides 1 tab 06/25/24 09:00 06/27/24 09:07 Senna Tablet PO 07/25/24 08:59 Not Given QDAY [facility] Protocol Plan Patient currently somnolent and poor historian. History obtained from both chart review and patient's testimony. Mr. Fisher is a 54-year-old male with past medical history of insulin- dependent diabetes mellitus [>14%], CAD, HFpEF [55-60%], CVA with b/l endarterectomy, pulmonary embolism on Eliquis, essential hypertension, obstructive sleep apnea, OHS/CAROLYN, cirrhosis and left groin abscess s/p I&D 05/11/24. He presented to the to the emergency department with a chief complaint of generalized pruritic rash from [facility]. Patient is admitted for Upper GI bleed rewuiring transfusion and cellulitis with failed outpatient p.o. antibiotics. #Acute blood loss anemia secondary to #upper GI bleed #Hx of cirrhosis -On admission patient's Hb 6.7 --> post transfusion Hgb 7.7 and Hct 25.4 -Baseline Hgb between 7?9 DDx: Anemia of chronic disease, peptic ulcer disease, inflammatory anemia Plan: -Type and screen -1 unit PRBC transfused 06/25 -Posttransfusion H&H shows significant improvement -Avoid NSAIDs -Pantoprazole 40 Mg IVP twice daily -Octreotide drip continue -GI consulted, appreciate recommendations, EGD scheduled for June 27 -Monitor daily CBC, will transfuse again if hemoglobin <7 #Generalized rash?improving?improving #Left elbow cellulitis #infected insect bite #History of left groin abscess s/p I&D 05/11/2024 -Patient presented with a generalized pruitic maculopapular rash all over his body with scattered petechiae. -Pt is assuming the wound on his elbow and right forearm is from spider bite at the nursing facility -Pt is a poor historian therefore is unable to give direct information on the details of symptoms -t started escitalopram as a new medicationa and soon after Pt has this new diffuse rash. Although the rash is not improving the pruitis does improve with Benadryl DDx : HSP (IgA vasculitis), Hypersensitivity reaction to escitalopram, spider bite , drug reaction Plan: -MRSA nasal screen pending -Blood culture pending -Hydrocortisone 100 Mg IV x 1 -Benadryl 25 Mg IV x 1 -Ceftriaxone 1 g IV daily started on [06/25? -Doxycycline 100 Mg IV twice daily started on [06/25? -CT of elbow with contrast ordered -wound care ordered -Hold home escitalopram, likely the source of his maculopapular rash - Infectious disease, Dr. Galindo consulted. Appreciate recommendations # HFpEF [55-60%] # CAD -On admission patient denied any SOB, PND, orthopnea and LE swelling. -On exam patient's lungs had decreased air entry globally Last transthoracic echocardiogram completed on 04/24/2024 findings include: Suboptimal images due to body habitus. Normal LV size and function. Mild LVH. Grade I diastolic dsyfunction. Estimated EF 55-60% Mild RV dilation. Normal RV function. Mild biatrial dilation. Trace MR, TR. Mild AV sclerosis without stenosis. There is a small circumferential pericardial effusion. No evidence of cardiac tamponade. Home medication Bumex 1 Mg p.o. twice daily, metoprolol XL 100 Mg p.o. daily, Atorvastatin 80 mg po HS Plan: ? Resume home medication ? Resume Bumex 1 Mg p.o. twice daily ? Resume metoprolol XL 100 Mg p.o. daily - Resumed Atorvastatin 80 mg po HS #Hypertensive urgency?resolved # History of primary hypertension -On admission patient's BP 196/99 which spontaneously reduced to 148/70 -resume home losartan 50mg Qday #Acute kidney injury - improving On admission patient CR 1.4 -->1.3 Baseline CR between 0.9?1.1 Plan: ? Renally dose medication ? Avoid nephrotoxic agents #Insulin-dependent diabetes mellitus type 2 [>14%] -Patient's last HbA1c from [05/11/2024] >14%, BG today 177 -Home medication insulin degludec 95 units twice daily and Ozempic 2 Mg SC weekly Plan: ? Started insulin glargine 40 units SC at bedtime ? SSI to cover for any blood glucose spikes #History of CVA with B/L endarterectomy #History of pulmonary embolism on Eliquis Plan: ? Eliquis on hold for now in light of acute blood loss anemia. #Obstructive sleep apnea #Obesity hypoventilation syndrome Plan: ? CPAP at night ordered Disposition: Medsurg for EGD pending DVT Prophylaxis: SCD QSHIFT GI Prophylaxis: Pantoprozol-40 IV BID Diet: carbohydrate consistent low Code status: Full Plan of care discussed with supervising attending Dr. Kasey Snyder M.D. PGY-3
--- NOTE | 2024-06-27 16:13 | PC.PT ---
PT eval withheld secondary to patient is refusing to work with PT until pain meds are given. Patient's dilaudid is being held currently and patient refused to take norco P.O due to pending EGD. Will re-attempt PT eval tomorrow.
[2024-06-27 16:57] LABS: Syphilis Nonreactive (Nonreactive)
[2024-06-27] MEDS: HYDROmorphone INJ 2 MG/ML VIAL 1 MG IVP ×2 (17:16→22:56)
[2024-06-27] MEDS: OCTREOTIDE ACET INJ 1,000 MCG in SODIUM CHLORIDE 0.9% 100 ML 5.1 MCG IV (17:16)
[2024-06-27 17:42] LABS: Folate 23.22 ng/mL (>5.38); Vitamin B12 751 pg/mL (211-911)
--- NOTE | 2024-06-27 18:40 | SUR.PHASEI ---
Arrived [facility] via [facility]. Resting with eyes open, requesting ice chips. Report received from Zohreh MATOS. No c/o pain or discomfort. Responding to questions and commands appropriately.
--- NOTE | 2024-06-27 18:55 | SUR.PHASEI ---
Report given to Nai MATOS. Resting with eyes open, tolerating ice chips PO. No c/o pain or discomfort. No s/o distress.
--- NOTE | 2024-06-27 19:03 | SUR.PHASEI ---
Taken to room 358 via gurney by Guadalupe MATOS.
[2024-06-27] MEDS: HYDROcodone/APAP 5/325 TABLET 1 TAB PO (20:24)
[2024-06-27] MEDS: BUMETANIDE 0.5 MG TABLET 1 MG PO (20:24)
[2024-06-27] MEDS: CYCLObenzaPRINE 5 MG TABLET PO (20:25)
[2024-06-27] MEDS: DOXYCYCLINE INJ 100 MG in SODIUM CHLORIDE 0.9% (P) 100 ML IV (20:27)
[2024-06-27] MEDS: PANTOPRAZOLE INJ 40 MG VIAL IVP (20:29)
[2024-06-27] MEDS: ATORVASTATIN CALCIUM 20 MG TABLET 80 MG PO (20:29)
[2024-06-28] VITALS (15 sets, daily range): BP systolic 131–166; BP diastolic 67–92; PULSE 71–87; RESP 11–99; TEMP 36.3–36.6; O2SAT 95–100
[2024-06-28] MEDS: ALBUTEROL/IPRATROPIUM (Duoneb) RT SOL 3 ML NEBU INH ×3 (00:46→12:32)
[2024-06-28] MEDS: HYDROcodone/APAP 5/325 TABLET 1 TAB PO ×2 (02:03→07:46)
[2024-06-28] MEDS: HYDROmorphone INJ 2 MG/ML VIAL 1 MG IVP ×2 (03:41→10:03)
[2024-06-28] MEDS: PREGABALIN 75 MG CAPSULE 150 MG PO ×3 (05:26→22:13)
[2024-06-28 07:42] LABS: Basophils % (Auto) 0 % (0-2.5); Eosinophils # (Auto) 0.4 Thou/mm3 (0.0-0.5); Eosinophils % (Auto) 4 % (0-10); Hematocrit 25.9 % (41.0-53.0); Immature Granulocytes % (Auto) 2 % (0-0); Immature Granulocytes Auto 0.17 Thou/mm3 (0.00-0.00); Lymphocytes # (Auto) 1.8 Thou/mm3 (1.0-4.8); Lymphocytes % (Auto) 18 % (10-50); Mean Corpuscular HGB Conc 30.9 g/dl (31.0-37.0); Mean Corpuscular Hemoglobin 25.9 pg (25.0-35.0); Mean Corpuscular Volume 84 fL (80-100); Monocytes % (Auto) 10 % (0-12); Neutrophils # (Auto) 6.6 Thou/mm3 (1.8-7.7); Neutrophils % (Auto) 66 % (37-80); Nucleated Red Blood Cell % 0 /100 WBC (0); Platelet Count 272 Thou/mm3 (140-440); RDW Standard Deviation 44.8 fL (35.1-43.9); Red Blood Count 3.09 Miln/mm3 (4.50-5.90)
[2024-06-28] MEDS: METOCLOPRAMIDE 5 MG TABLET 10 MG PO ×4 (07:46→20:26)
[2024-06-28 08:31] LABS: Alanine Aminotransferase 14 U/L (10-49); Albumin, Serum 2.8 gm/dL (3.5-5.0); Albumin/Globulin Ratio 0.9 (1.2-2.2); Alkaline Phosphatase 102 U/L (46-116); Anion Gap 9 (7-16); Aspartate Amino Transferase 20 U/L (0-34); BUN/Creatinine Ratio 37 Ratio (12-20); Bilirubin,Total < 0.2 mg/dL (0.3-1.2); Blood Urea Nitrogen 56 mg/dL (9-23); Calcium 7.9 mg/dL (8.3-10.6); Calcium (Corrected) 8.9 mg/dL (8.5-10.1); Carbon Dioxide 24.2 mMol/L (20.0-31.0); Chloride 108 mMol/L (98-107); Creatinine (Component) 1.5 mg/dL (0.6-1.3); Estimated Creatinine Clearance 72.9 mL/min (>60); Globulin 3.2 gm/dL (2.3-3.5); Glucose 226 mg/dL (74-106); Osmolality,Calculated 303 (275-295); Potassium 3.6 mMol/L (3.4-5.1); Sodium 141 mMol/L (136-145); eGFR 54 See Note
[2024-06-28] MEDS: BUMETANIDE 0.5 MG TABLET 1 MG PO ×2 (09:28→20:26)
[2024-06-28] MEDS: CYCLObenzaPRINE 5 MG TABLET PO (09:28)
[2024-06-28] MEDS: amLODIPine BESYLATE 5 MG TABLET 10 MG PO (09:28)
[2024-06-28] MEDS: cefTRIAXone/D5w 1gm IV premix 50 ML IV (09:29)
[2024-06-28] MEDS: DOXYCYCLINE INJ 100 MG in SODIUM CHLORIDE 0.9% (P) 100 ML IV (09:29)
[2024-06-28] MEDS: METOPROLOL SUCCINATE XL 25 MG TABCR 100 MG PO (09:30)
[2024-06-28] MEDS: LOSARTAN POTASSIUM 25 MG TABLET 50 MG PO (09:30)
[2024-06-28] MEDS: PANTOPRAZOLE INJ 40 MG VIAL IVP ×2 (09:31→20:24)
[2024-06-28] MEDS: INSULIN GLARGINE (Lantus) 5 UNIT/0.05 ML (PER 5 UNITS) 20 UNIT SC ×2 (09:54→20:33)
[2024-06-28] MEDS: Silvasorb Gel 45 ML TUBE TOP (09:56)
--- NOTE | 2024-06-28 11:04 | ESPR_ITS ---
Documentation for date of: 06/28/24 Subjective Subjective Interval history: Patient evaluated Discussed endoscopic evaluation findings with the patient Given diet instructions to fully avoid carbonated beverages Low residue diet And more physical activity Exam Vital Signs Temp Pulse Resp BP Pulse Ox O2 Del Method O2 Flow Rate 97.3 F 82 17 164/92 H 97 Room Air 3 06/28/24 08:00 06/28/24 09:30 06/28/24 08:00 06/28/24 09:30 06/28/24 08:00 06/28/24 08:00 06/27/24 18:35 Routine Respiratory Exam Comments: Normal to auscultation Routine Abdominal Exam Comments: Soft nontender Objective Labs 06/28/24 05:29 06/28/24 05:29 Labs: Laboratory Results - last 24 hr 06/27/24 06/27/24 06/28/24 06:17 13:08 05:29 WBC 10.0 RBC 3.09 L Hgb 8.0 L Hct 25.9 L MCV 84 MCH 25.9 MCHC 30.9 L RDW Std Deviation 44.8 H Plt Count 272 Neut % (Auto) 66 Lymph % (Auto) 18 [place] % (Auto) 10 Eos % (Auto) 4 Baso % (Auto) 0 Neut # (Auto) 6.6 Lymph # (Auto) 1.8 [place] # (Auto) 1.0 H Eos # (Auto) 0.4 Baso # (Auto) 0.0 Immature Gran # (Auto) 0.17 H Absolute Nucleated RBC 0.00 Immature Gran % 2 H Nucleated RBC % 0 Sodium 141 Potassium 3.6 Chloride 108 H Carbon Dioxide 24.2 Anion Gap 9 BUN 56 H Creatinine 1.5 H Estim Creat Clear Calc 72.9 eGFR 54 L BUN/Creatinine Ratio 37 H Glucose 226 H D Calculated Osmolality 303 H Calcium 7.9 L Corrected Calcium 8.9 Total Bilirubin < 0.2 L AST 20 ALT 14 Alkaline Phosphatase 102 Total Protein 6.0 Albumin 2.8 L Globulin 3.2 Albumin/Globulin Ratio 0.9 L Vitamin B12 751 Folate 23.22 Syphilis Serology Nonreactive Impressions Impression: # Duodenal ulcers # Gastritis # Gastric motility disorder Continue current management Assessment & Plan A&P Narrative likely allergic rash but unclear as to what the allergy is to, he does recall recent receipt of a [facility]ant [facility] the [facility] and some spider bites on his elbows dm II obesity other problems as noted. await operative findings ok for rocephin 2 gm iv daily and po doxy 100 po bid for now, doxy is the same iv and po btw will look in again on wed. no pos cx yet to guide rx that is somewhat empirical Time Spent With Patient Time: Total time spent is greater than 50% in coordination of care (as documented) at patient's floor/unit and/or counseling patient:
--- NOTE | 2024-06-28 11:30 | PC.SS ---
SS has sent inquiry to local SNF using [facility]. Pt is from [place] [employer]. SS spoke to Viji from [facility] who states pt requires insurance authorization. Pt is requesting ST. PT notes are pending for insurance authorization.
[2024-06-28] MEDS: APIXABAN 2.5 MG TABLET 5 MG PO ×2 (11:48→20:27)
[2024-06-28] MEDS: LOPERAMIDE 2 MG CAPSULE 4 MG PO (11:48)
[2024-06-28] MEDS: INSULIN LISPRO (AdmeLOG) 1 UNIT/0.01 ML UNIT SC ×2 (11:54→17:37)
[2024-06-28] MEDS: Morphine Sulf 15 MG TABCR PO (11:59)
--- NOTE | 2024-06-28 13:45 | ESPR_ITS ---
Subjective Subjective Interval history: cdiff pcr neg. hep c neg. hiv pending. Exam Vital Signs Temp Pulse Resp BP Pulse Ox O2 Del Method O2 Flow Rate 97.4 F 79 11 L 148/80 H 100 Room Air 3 06/28/24 12:00 06/28/24 12:35 06/28/24 12:35 06/28/24 12:00 06/28/24 12:35 06/28/24 12:00 06/27/24 18:35 Narrative Exam rash persists. no drainage of sores on arms noted. no plans for drainage noted. Objective - Internal Medicine Labs 06/28/24 05:29 06/28/24 05:29 Labs: Laboratory Results - last 24 hr 06/27/24 06/27/24 06/28/24 06:17 13:08 05:29 WBC 10.0 RBC 3.09 L Hgb 8.0 L Hct 25.9 L MCV 84 MCH 25.9 MCHC 30.9 L RDW Std Deviation 44.8 H Plt Count 272 Neut % (Auto) 66 Lymph % (Auto) 18 [place] % (Auto) 10 Eos % (Auto) 4 Baso % (Auto) 0 Neut # (Auto) 6.6 Lymph # (Auto) 1.8 [place] # (Auto) 1.0 H Eos # (Auto) 0.4 Baso # (Auto) 0.0 Immature Gran # (Auto) 0.17 H Absolute Nucleated RBC 0.00 Immature Gran % 2 H Nucleated RBC % 0 Sodium 141 Potassium 3.6 Chloride 108 H Carbon Dioxide 24.2 Anion Gap 9 BUN 56 H Creatinine 1.5 H Estim Creat Clear Calc 72.9 eGFR 54 L BUN/Creatinine Ratio 37 H Glucose 226 H D Calculated Osmolality 303 H Calcium 7.9 L Corrected Calcium 8.9 Total Bilirubin < 0.2 L AST 20 ALT 14 Alkaline Phosphatase 102 Total Protein 6.0 Albumin 2.8 L Globulin 3.2 Albumin/Globulin Ratio 0.9 L Vitamin B12 751 Folate 23.22 Syphilis Serology Nonreactive Assessment & Plan A&P Narrative likely allergic rash that seems to be affecting him less, unclear as to what the allergy is to, he does recall [facility] and some spider bites on his elbows (usually mrsa infections) dm II obesity other problems as noted. await operative findings ok for po doxy 100 po bid for now, doxy is the same iv and po btw will see again prn no pos blood cx yet to guide rx, so rx is somewhat empirical on other po meds. so changed to doxy alone po bid for 5d more and stopped the empiric rocephin home or nh at your discretion doxy is not known to adversely affect renal function to my knowledge. Time Spent With Patient Time: Total time spent is greater than 50% in coordination of care (as documented) at patient's floor/unit and/or counseling patient:
--- NOTE | 2024-06-28 14:46 | PC.SS ---
Addendum entered by Bina Reyes 06/28/24 15:08: SS has faxed PT notes to [facility] and Jaquelin states she will get PASRR from [facility]. Original Note: SS met with pt to provide him choices to SNF. Pt was accepted back to [facility] and [facility] from [facility]. Patient's choice is [facility]. SS has called Marlene from [facility] who is aware and has discontinued insurance authorization. Jaquelin from [facility] is aware pt is from [facility] and will get PASRR from them. Insurance authorization is pending PT notes for [facility]. Pt is aware to participate with PT for his insurance to approve for SNF.
[2024-06-28 14:48] LABS: HIV (1&2) Antibody Rapid Non-Reactive
[2024-06-28] MEDS: HYDROcodone/APAP 10/325 TAB PO ×2 (15:17→20:33)
--- NOTE | 2024-06-28 16:12 | PC.CC ---
Arlyn MATOS from [facility] [phone] called to check in and identified herself as his assigned NEVILLE CM. She reported patient is requesting walker and shower chair. Updated Arlyn on planned d/c to [facility].
--- NOTE | 2024-06-28 16:24 | PD.RESPRO ---
Documentation for date of: 06/28/24 Subjective Subjective Interval history: Patient seen at bedside today. He is resting comfortably in bed. Yesterday patient refused to work with physical therapy but today he is agreeable to work with physical therapy. Pending authorization patient will be discharged to [facility]. Attempt to control patient's pain without the use of Dilaudid if it is necessary you may give at home. Exam Vital Signs Temp Pulse Resp BP Pulse Ox O2 Del Method O2 Flow Rate 97.4 F 79 11 L 148/80 H 100 Room Air 3 06/28/24 12:00 06/28/24 12:35 06/28/24 12:35 06/28/24 12:00 06/28/24 12:35 06/28/24 12:00 06/27/24 18:35 Narrative Exam GENERAL: A&Ox3 . Awake, Not in acute distress, obese male NEURO: no focal neurological deficits HEENT: Atraumatic, Normocephalic. mucous membranes moist. Eyes open, symmetrical, & clear HEART: Normal Heart Sounds LUNGS: Coarse breath sounds with wheezing bilaterally ABDOMEN: soft, non-distended, non-tender, bowel sounds heard, no guarding or rebound tenderness SKIN: Generalized maculopapular rash over chest back abdomen arms and legs. Also multiple scattered petechiae, would on L. elbow and right forearm. Is improving EXTREMITIES: No edema, tenderness, able to move all 4 extremities, pedal pulses palpated Objective Labs 06/28/24 05:29 06/28/24 05:29 Labs: Laboratory Results - last 24 hr 06/27/24 06/27/24 06/28/24 06:17 13:08 05:29 WBC 10.0 RBC 3.09 L Hgb 8.0 L Hct 25.9 L MCV 84 MCH 25.9 MCHC 30.9 L RDW Std Deviation 44.8 H Plt Count 272 Neut % (Auto) 66 Lymph % (Auto) 18 Sebastian % (Auto) 10 Eos % (Auto) 4 Baso % (Auto) 0 Neut # (Auto) 6.6 Lymph # (Auto) 1.8 Sebastian # (Auto) 1.0 H Eos # (Auto) 0.4 Baso # (Auto) 0.0 Immature Gran # (Auto) 0.17 H Absolute Nucleated RBC 0.00 Immature Gran % 2 H Nucleated RBC % 0 Sodium 141 Potassium 3.6 Chloride 108 H Carbon Dioxide 24.2 Anion Gap 9 BUN 56 H Creatinine 1.5 H Estim Creat Clear Calc 72.9 eGFR 54 L BUN/Creatinine Ratio 37 H Glucose 226 H D Calculated Osmolality 303 H Calcium 7.9 L Corrected Calcium 8.9 Total Bilirubin < 0.2 L AST 20 ALT 14 Alkaline Phosphatase 102 Total Protein 6.0 Albumin 2.8 L Globulin 3.2 Albumin/Globulin Ratio 0.9 L Vitamin B12 751 Folate 23.22 Syphilis Serology Nonreactive HIV 1&2 Antibody Rapid Non-Reactive Quality Measures Quality Measures none Assessment & Plan Assessment Current Active Medications: Generic Name Dose Route Start Last Admin Trade Name Freq PRN Reason Stop Dose Admin Acetaminophen 650 mg 06/25/24 11:33 Acetaminophen 325 Mg Tablet PO 07/25/24 04:27 Q6H PRN Fever >100.4 or Pain(1-3) Hydrocodone Bitart/Acetaminophen 1 tab 06/28/24 10:59 06/28/24 15:17 Hydrocodone/Apap 10/325 Tab PO 07/03/24 10:58 1 tab Q4H PRN Administration MODERATE PAIN 4-6 Hydrocodone Bitart/Acetaminophen 1 tab 06/28/24 11:05 Hydrocodone/Apap 5/325 Tablet PO 06/30/24 04:33 Q4HR PRN MILD PAIN 1-3 Albuterol/Ipratropium 3 ml 06/25/24 19:00 06/28/24 12:32 Albuterol/Ipratropium (Duoneb) Rt Radha 3 Ml Nebu INH 07/25/24 18:59 3 ml Q6HRRT RINA Administration Amlodipine Besylate 10 mg 06/26/24 12:00 06/28/24 09:28 Amlodipine Besylate 5 Mg Tablet PO 07/26/24 11:59 10 mg QDAY RINA Administration Apixaban 5 mg 06/28/24 11:00 06/28/24 11:48 Apixaban 2.5 Mg Tablet PO 07/28/24 10:59 5 mg BID RINA Administration Atorvastatin Calcium 80 mg 06/25/24 21:00 06/27/24 20:29 Atorvastatin Calcium 20 Mg Tablet PO 07/25/24 20:59 80 mg HS RINA Administration Bumetanide 1 mg 06/25/24 09:00 06/28/24 09:28 Bumetanide 0.5 Mg Tablet PO 07/25/24 08:59 1 mg BID RINA Administration Cyclobenzaprine HCl 5 mg 06/25/24 09:00 06/28/24 09:28 Cyclobenzaprine 5 Mg Tablet PO 07/25/24 08:59 5 mg BID RINA Administration Dextrose 50 ml 06/25/24 05:04 06/27/24 06:21 Dextrose 50%-Water Inj 50 Ml Syringe IV 07/25/24 05:03 50 ml Q15MIN PRN Administration BG <50 OR BG <70 & pt unresponsive Doxycycline Hyclate 100 mg 06/28/24 21:00 Doxycycline 100 Mg Tablet PO 07/03/24 12:00 BID RINA Glucagon 1 mg 06/25/24 05:04 Glucagon Inj 1 Mg Vial IM Q15MIN PRN BG <70, and no IV access Hydralazine HCl 10 mg 06/26/24 11:46 Hydralazine Inj 20 Mg/Ml Vial IVP 07/26/24 11:45 Q6H PRN SPB >180 Hydromorphone HCl 1 mg 06/26/24 09:09 06/26/24 15:24 Hydromorphone Inj 2 Mg/Ml Vial IVP 07/01/24 09:08 1 mg Q4HR PRN Administration Pain 7-10 Promethazine HCl 12.5 mg/ 50.5 mls @ 2.5 mls/min 06/26/24 17:19 Sodium Chloride IV 07/26/24 17:18 Q6HR PRN NAUSEA OR VOMITING Protocol Insulin Glargine 20 unit 06/26/24 21:00 06/28/24 09:54 Insulin Glargine (Lantus) 5 Unit/0.05 Ml (Per 5 Units) SC 07/26/24 20:59 20 unit BID RINA Administration Insulin Human Lispro 0 unit 06/28/24 11:30 06/28/24 11:54 Insulin Lispro (Admelog) 1 Unit/0.01 Ml Unit SC 07/28/24 11:29 10 unit ACHS RINA Administration Protocol Losartan Potassium 50 mg 06/25/24 09:00 06/28/24 09:30 Losartan Potassium 25 Mg Tablet PO 07/25/24 08:59 50 mg QDAY RINA Administration Metoclopramide HCl 10 mg 06/28/24 07:30 06/28/24 11:59 Metoclopramide 5 Mg Tablet PO 07/28/24 07:29 10 mg ACHS RINA Administration Metoprolol Succinate 100 mg 06/25/24 09:00 06/28/24 09:30 Metoprolol Succinate Xl 25 Mg Tabcr PO 07/25/24 08:59 100 mg QDAY RINA Administration Morphine Sulfate 15 mg 06/28/24 10:59 06/28/24 11:59 Morphine Sulf 15 Mg Tabcr PO 07/03/24 10:58 15 mg QDAY PRN Administration SEVERE PAIN 7-10 Protocol Ondansetron HCl 4 mg 06/25/24 04:28 06/26/24 15:24 Ondansetron Inj 2 Mg/Ml Inj 2 Ml IV 07/25/24 04:27 4 mg Q6H PRN Administration NAUSEA OR VOMITING Protocol Pantoprazole Sodium 40 mg 06/25/24 09:45 06/28/24 09:31 Pantoprazole Inj 40 Mg Vial IVP 07/25/24 09:44 40 mg BID RINA Administration Pregabalin 150 mg 06/25/24 06:00 06/28/24 15:16 Pregabalin 75 Mg Capsule PO 07/25/24 05:59 150 mg TID RINA Administration Sennosides 1 tab 06/25/24 09:00 06/28/24 09:31 Senna Tablet PO 07/25/24 08:59 Not Given QDAY IRNA Protocol Plan Patient currently somnolent and poor historian. History obtained from both chart review and patient's testimony. Mr. Fisher is a 54-year-old male with past medical history of insulin-dependent diabetes mellitus [>14%], CAD, HFpEF [55-60%], CVA with b/l endarterectomy, pulmonary embolism on Eliquis, essential hypertension, obstructive sleep apnea, OHS/CAROLYN, cirrhosis and left groin abscess s/p I&D 05/11/24. He presented to the to the emergency department with a chief complaint of generalized pruritic rash from [facility]. Patient is admitted for Upper GI bleed rewuiring transfusion and cellulitis with failed outpatient p.o. antibiotics. #Acute blood loss anemia secondary to #upper GI bleed #Hx of cirrhosis -On admission patient's Hb 6.7 --> post transfusion Hgb 7.7 and Hct 25.4 -Baseline Hgb between 7?9 DDx: Anemia of chronic disease, peptic ulcer disease, inflammatory anemia Plan: -Type and screen -1 unit PRBC transfused 06/25 -Posttransfusion H&H shows significant improvement -Avoid NSAIDs -Pantoprazole 40 Mg IVP twice daily -Octreotide drip discontinued -GI consulted, appreciate recommendations, EGD scheduled for June 27 -Monitor daily CBC, will transfuse again if hemoglobin <7 #Generalized rash?improving?improving #Left elbow cellulitis #infected insect bite #History of left groin abscess s/p I&D 05/11/2024 -Patient presented with a generalized pruitic maculopapular rash all over his body with scattered petechiae. -Pt is assuming the wound on his elbow and right forearm is from spider bite at the nursing facility -Pt is a poor historian therefore is unable to give direct information on the details of symptoms -t started escitalopram as a new medicationa and soon after Pt has this new diffuse rash. Although the rash is not improving the pruitis does improve with Benadryl DDx : HSP (IgA vasculitis), Hypersensitivity reaction to escitalopram, spider bite , drug reaction Plan: -MRSA nasal screen positive -Blood culture negative -Hydrocortisone 100 Mg IV x 1 -Benadryl 25 Mg IV x 1 -Ceftriaxone 1 g IV daily started on [06/25?06/28) -Doxycycline 100 Mg IV twice daily started on [06/25?to be continued till July 03 -CT of elbow with contrast shows extensive cellulitis but no abscess -wound care ordered -Hold home escitalopram, likely the source of his maculopapular rash and discontinue this medication on discharge - Infectious disease, Dr. Galindo consulted. Appreciate recommendations # HFpEF [55-60%] # CAD -On admission patient denied any SOB, PND, orthopnea and LE swelling. -On exam patient's lungs had decreased air entry globally Last transthoracic echocardiogram completed on 04/24/2024 findings include: Suboptimal images due to body habitus. Normal LV size and function. Mild LVH. Grade I diastolic dsyfunction. Estimated EF 55-60% Mild RV dilation. Normal RV function. Mild biatrial dilation. Trace MR, TR. Mild AV sclerosis without stenosis. There is a small circumferential pericardial effusion. No evidence of cardiac tamponade. Home medication Bumex 1 Mg p.o. twice daily, metoprolol XL 100 Mg p.o. daily, Atorvastatin 80 mg po HS Plan: ? Resume home medication ? Resume Bumex 1 Mg p.o. twice daily ? Resume metoprolol XL 100 Mg p.o. daily - Resumed Atorvastatin 80 mg po HS #Hypertensive urgency?resolved # History of primary hypertension -On admission patient's BP 196/99 which spontaneously reduced to 148/70 -resume home losartan 50mg Qday #Acute kidney injury - improving On admission patient CR 1.4 -->1.3 Baseline CR between 0.9?1.1 Plan: ? Renally dose medication ? Avoid nephrotoxic agents #Insulin-dependent diabetes mellitus type 2 [>14%] -Patient's last HbA1c from [05/11/2024] >14%, BG today 177 -Home medication insulin degludec 95 units twice daily and Ozempic 2 Mg SC weekly Plan: ? Started insulin glargine 40 units SC at bedtime ? SSI to cover for any blood glucose spikes #History of CVA with B/L endarterectomy #History of pulmonary embolism on Eliquis Plan: ? Eliquis on hold for now in light of acute blood loss anemia. #Obstructive sleep apnea #Obesity hypoventilation syndrome Plan: ? CPAP at night ordered Disposition: Medsurg for EGD pending DVT Prophylaxis: SCD QSHIFT GI Prophylaxis: Pantoprozol-40 IV BID Diet: carbohydrate consistent low Code status: Full Plan of care discussed with supervising attending Dr. Karma Snyder M.D. PGY-3 Attending Provider Attestation/Addendum I reviewed labs, imaging, EKG, home medications and prior available records. Face to face evaluation was performed by me. I have personally examined the patient and discussed assessment and plan with the IM team. I reviewed the resident note and agree with the plan with exceptions as below. Lower extremity rash Upper GI bleed Acute anemia Left elbow abscess Chronic pain Opioid tolerance HFpEF Morbid obesity Uncontrolled diabetes mellitus with hyperglycemia, type II, insulin-dependent Rash is possibly due to escitalopram. Discontinued the medication. Rash improved Status post EGD that showed esophagitis and duodenal ulcer legendary gastric motility disorder. Continue PPI. Reglan as needed Status post 1 PRBC transfusion. Hemoglobin stable posttransfusion Requiring IV Dilaudid given his high opiate tolerance. Weaning off Continue ceftriaxone/doxycycline for the elbow infection. CT scan showed no abscess formation Pending authorization for another SNF placement
[2024-06-28] MEDS: ATORVASTATIN CALCIUM 20 MG TABLET 80 MG PO (20:25)
[2024-06-28] MEDS: DOXYCYCLINE 100 MG TABLET PO (20:28)
[2024-06-29] VITALS (14 sets, daily range): BP systolic 135–163; BP diastolic 68–89; PULSE 68–88; RESP 18–98; TEMP 36.1–36.4; O2SAT 94–100
[2024-06-29] MEDS: HYDROcodone/APAP 10/325 TAB PO ×3 (00:38→15:51)
[2024-06-29] MEDS: HYDROmorphone INJ 2 MG/ML VIAL 1 MG IVP ×2 (02:27→20:23)
[2024-06-29] MEDS: PREGABALIN 75 MG CAPSULE 150 MG PO ×3 (05:21→22:56)
[2024-06-29] MEDS: ALBUTEROL/IPRATROPIUM (Duoneb) RT SOL 3 ML NEBU INH ×3 (07:33→19:08)
--- NOTE | 2024-06-29 09:16 | PC.SS ---
SS followed up with Jaquelin at [facility] who explained she has reached out [employer]ender from patient's health insurance and is sending them inquiry (SS sent yesterday to [facility]). Insurance authorization is still pending.
[2024-06-29] MEDS: PANTOPRAZOLE INJ 40 MG VIAL IVP ×2 (09:32→20:05)
[2024-06-29] MEDS: BUMETANIDE 0.5 MG TABLET 1 MG PO ×2 (09:32→20:08)
[2024-06-29] MEDS: METOPROLOL SUCCINATE XL 25 MG TABCR 100 MG PO (09:33)
[2024-06-29] MEDS: METOCLOPRAMIDE 5 MG TABLET 10 MG PO ×4 (09:34→20:08)
[2024-06-29] MEDS: LOSARTAN POTASSIUM 25 MG TABLET 50 MG PO (09:34)
[2024-06-29] MEDS: APIXABAN 2.5 MG TABLET 5 MG PO ×2 (09:34→20:06)
[2024-06-29] MEDS: DOXYCYCLINE 100 MG TABLET PO ×2 (09:34→20:08)
[2024-06-29] MEDS: amLODIPine BESYLATE 5 MG TABLET 10 MG PO (09:34)
--- NOTE | 2024-06-29 10:29 | PC.SS ---
KENNEDI received call from Julianne at [facility], patient's health insurance to inform her pt is requesting not to return to [facility] and prefers to go to [facility]. Julianne is requesting d/c summary and disposition of location to where pt is go (ex. SNF) to be faxed to [phone]. Julianne states she will provide RIRI to [facility]. KENNEDI has informed Julianne pt has been accepted to [facility], and [facility] (from [facility]). SS has spoken to Mar at [facility] they are not contracted with patient's health insurance but the can get RIRI. Julianne is aware pt is requesting ST. Julianne explained she has been contacted by Jaquelin at [facility] and has received inquiry. [facility] [address] [id number] Custodial Facility Yes 06/29/2024 10:08 06/28/2024 11:29 We can accept this patient. Thank you for your referral (1) [facility] [address], [place] [phone] Custodial Facility 06/28/2024 11:29 (1) [facility] [address], [place] [phone] Custodial Facility Yes 06/28/2024 11:36 06/28/2024 11:29 We can accept this patient. Thank you for your referral (1) [facility] [address] [place] [address] Custodial Facility Yes 06/28/2024 15:34 06/28/2024 11:29 We can accept this patient. Thank you for your referral (3) [facility] [address] [place] [address] Custodial Facility No 06/28/2024 11:38 06/28/2024 11:29 Unable to meet specialty/medical needs (1) [facility] [address] [place], [place] [phone] Custodial Facility No
--- NOTE | 2024-06-29 10:33 | PD.RESDS ---
Planned Discharge Date 06/29/24 DS: Providers Provider Date of admission: 06/25/24 04:28 Primary care physician: Darrion Kevin MD Admitting Provider: Óscar Morocho MD Attending Provider on Admission: Hugh Parada MD Consults: 06/25/24 04:32 Referral Wound Care Stat Comment: 06/25/24 05:12 Consult to Infectious Diseases Routine Comment: Generalized rash Consulting Provider: Jorge A Galindo 06/25/24 07:01 Referral Registered Dietitian Routine Comment: Instructions: wounds 06/25/24 09:36 Consult to Gastroenterology Stat Comment: r/o GI bleed, on eliquis Consulting Provider: Jono Wakefield 06/27/24 14:19 PT [Referral Physical Therapy] Routine Comment: Physician Instructions: Attending Provider on DC: Matthew Morgan MD Discharging Provider: Matthew Morgan MD DS: Diagnosis Problem List Completed Was Problem List Reviewed/Reconciled?: Yes Hospital Course Hospital Course Hospital course: Mr. Fisher is a 54-year-old male with past medical history of poorly controlled insulin-dependent diabetes mellitus [HgbA1c >14%], CAD, HFpEF [55-60%]echo 04/24/2024, CVA with b/l endarterectomy, pulmonary embolism on Eliquis, essential hypertension, obstructive sleep apnea, OHS/CAROLYN, cirrhosis and left groin abscess s/p I&D 05/11/24. He presented to [facility] emergency department on 04/25/25 with a chief complaint of generalized pruritic rash from [facility]. In the Ed patient was found to have Hypertensive urgency with BP of 196/99 which spontaneously reduced to 148/70. Pts pruitic diffuse petichial rash was likely secondary new medication escitalopram he started and the cellulitis wound on elbow is likely secondary to spider bite. In the ED patient's hgb was found to be 6.7 and 1 unit of pRBC was transfused and GI was consulted. Patient was admitted to the hospital for Upper GI bleed work up and failed outpatient p.o. antibiotics cellulitis. Pt underwent IV antibiotics including ceftriaxone and doxycycline, general surgery is consulted for possible I&D. Patient underwent EGD and findings were consistent with duodenal ulcers, gastritis and gastric motility disorder. Pt complained of diarrhea and C. diff PCR was negative on 06/27/24. Pt's rash has resolved, cellulitis have improved and Pt is hemodynamaically stable to be discharged to senior living facility. Images Chest Xrays: Moderate enlargement cardiac contour, Moderate vascular congestion Forearm xray: No cortical bone destruction Elbow xray: No cortical bone destruction EKG: Sinus rhythm, no acute ST or T wave changes CT elbow: Extensive cellulitis pattern, Negative for osteomyelitis, Negative for fluid-filled soft tissue abscess Discharge Recommendations Recommend discontinuing escitalopram as that is the most likely cause of drug eruption/rash.Recommend strict compliance with insulin as recommended, please take 30 units of insulin twice daily, please follow-up with your primary care physician to go over your blood sugars and adjust insulin according to glucose levels at home. Started on new antihypertensive medication amlodipine 10 mg/day for improved blood pressure control. Continue antibiotics for cellulitis.Doxycycline 100 mg twice daily through July 03. In case of worsening symptoms, please return to the emergency room. Hospitalization Diagnosis #Acute blood loss anemia secondary to #upper GI bleed #Hx of cirrhosis #Generalized rash?improved #Left elbow cellulitis #infected insect bite #History of left groin abscess s/p I&D 05/11/2024 # HFpEF [55-60%] # Hx. CAD #Hypertensive urgency?resolved # History of primary hypertension #Acute kidney injury - resolved #Insulin-dependent diabetes mellitus type 2 [A1c >14%] #History of CVA with B/L endarterectomy #History of pulmonary embolism on Eliquis #Obstructive sleep apnea #Obesity hypoventilation syndrome Assessment and plan discussed with my attending physician Dr. Karma Morgan (PGY-1)- Internal medicine resident Time Spent with Patient Time attestation: Total time spent providing and/or coordinating discharge services: Exam Vital Signs Temp Pulse Resp BP Pulse Ox O2 Del Method O2 Flow Rate 97.6 F 71 18 161/73 H 100 Room Air 3 06/29/24 04:00 06/29/24 09:34 06/29/24 07:34 06/29/24 09:34 06/29/24 07:34 06/29/24 04:00 06/27/24 18:35 Discharge Plan Plan Patient Disposition: Xfer Skilled g Fac (SNF) Patient condition on transfer: Stable Care Plan Goals: Recommend discontinuing escitalopram as that is the most likely cause of drug eruption/rash.Recommend strict compliance with insulin as recommended, please take 30 units of insulin twice daily, please follow-up with your primary care physician to go over your blood sugars and adjust insulin according to glucose levels at home. Started on new antihypertensive medication amlodipine 10 mg/day for improved blood pressure control. Continue antibiotics for cellulitis.Doxycycline 100 mg twice daily through July 03. In case of worsening symptoms, please return to the emergency room. Prescriptions/Referrals Prescriptions/Med Rec: New amlodipine 10 mg tablet 10 mg PO QDAY Qty: 30 0RF Continued metoprolol succinate 100 mg tablet extended release 24 hr 100 mg PO DAILY hydrocodone-acetaminophen 10-325 mg tablet 1 tab PO Q4H PRN (Reason: Pain, Moderate) pregabalin 150 mg capsule 150 mg PO TID sennosides [senna] 8.6 mg tablet 8.6 mg PO BID PRN (Reason: constipation) Qty: 30 0RF morphine 15 mg tablet extended release 15 mg PO QDAY PRN (Reason: Pain, Severe) bumetanide 1 mg tablet 1 mg PO BID 30 Days Qty: 7 3RF metoclopramide HCl 5 mg tablet 5 mg PO Q6H 30 Days Qty: 120 3RF menthol-zinc oxide [Calmoseptine] 0.44-20.6 % ointment 1 applic topical QID PRN (Reason: skin irritation) Qty: 113 0RF losartan 50 mg tablet 50 mg PO QDAY Qty: 30 0RF atorvastatin 80 mg Tablet 80 mg PO QPM ascorbic acid (vitamin C) [Vitamin C] 500 mg Tablet 500 mg PO BID Sapp[place]olly 0.8 mg Tablet 1 tab PO QDAY doxycycline hyclate 100 mg Tablet 100 mg PO BID cyclobenzaprine 5 mg Tablet 5 mg PO BID budesonide-formoterol 160-4.5 mcg/actuation Hfa Aerosol Inhaler 2 puff INHALATION BID apixaban 5 mg Tablet 5 mg PO BID Changed insulin detemir U-100 100 unit/mL (3 mL) Insulin Pen 30 unit SUBCUT BID Qty: 15 0RF Discontinued escitalopram oxalate [Lexapro] 10 mg Tablet 10 mg PO QDAY Referrals: Óscar Morocho MD [Physician] - Darrion Kevin MD [Primary Care Provider] - Patient/Caregiver Discharge Instructions Other Discharge Activity Instructions:: 1) UNSTAGEABLE TO SACRUM: Cleanse with normal saline, pat dry, apply silvasorb gel to wound bed. Skin prep to wound edges and secure with allyeven dressing daily Side to side repositoning except for meals 2) L ELBOW SHEARING WITH CELLULITIS: Cleanse with normal saline, pat dry, apply silvasorb gel and cover with foam dressing daily and PRN for soiling or falling off 3) L GROIN SURGICAL WOUND: Cleanse with normal saline, pat dry, apply silvasorb gel, layer with calcium alaginte and secure with allyeven dressing daily and PRN for soiling or falling off 4) R FOREARM WOUND: Cleanse with NS, pat dry, apply silvasorb gel and cover with allyeven dressing daily and PRN for soiling or falling off 5) Left heel: cleanse with with NS, pat dry, aply skin prep and cover with allyeven dressing daily. Negative heel pressure bilaterally Print Language: Swedish Stand Alone Forms: [employer] Award Info., Patient Portal Info Letter Discharge Order Discharge Orders: Discharge (Routine); Ordered 06/29/24 Ordered By: Deysi Albarran Quality Discharge Quality Measures VTE prophylaxis Attestestation MD Attestation I reviewed labs, imaging, EKG, home medications and prior available records. Face to face evaluation was performed by me. I have personally examined the patient and discussed assessment and plan with the IM team. I reviewed the resident note and agree with the plan with exceptions as below. Lower extremity rash Upper GI bleed Acute anemia Left elbow abscess Chronic pain Opioid tolerance HFpEF Morbid obesity Uncontrolled diabetes mellitus with hyperglycemia, type II, insulin-dependent Patient has diarrhea which improved. C. difficile was ordered and was negative. Rash is possibly due to escitalopram. Discontinued the medication. Rash improved Status post EGD that showed esophagitis and duodenal ulcer legendary gastric motility disorder. Continue PPI. Reglan as needed Status post 1 PRBC transfusion. Hemoglobin stable posttransfusion Requiring IV Dilaudid given his high opiate tolerance. Weaned off of IV Dilaudid and can continue his p.o. hydrocodone as needed Continue ceftriaxone/doxycycline for the elbow infection. CT scan showed no abscess formation. Consulted general surgery who recommended no debridement. Will discharge on p.o. doxycycline. Patient got authorization for another SNF placement Time spent is 40 minutes. More than 50% of the time was spent on patient education and coordination of care.
[2024-06-29] MEDS: INSULIN LISPRO (AdmeLOG) 1 UNIT/0.01 ML UNIT SC ×3 (12:31→20:28)
--- NOTE | 2024-06-29 12:43 | PC.NURSE ---
notified dr. enciso of consult
--- NOTE | 2024-06-29 12:46 | PC.SS ---
SS has faxed DC summary and patient's disposition information to patient's health insurance for authorization. PASRR assessment has been initiated and Level II Mental Health Evaluation referral is required. SS spoken to Jaquelin at [facility] who explained she attempted to get PASRR from medical records at [facility] but was unsuccessful. Pt is aware insurance authorization is still pending for [facility].
[2024-06-29 12:53] LABS: Clostridium Difficile PCR Negative (Negative)
[2024-06-29] MEDS: LOPERAMIDE 2 MG CAPSULE 4 MG PO ×2 (13:42→20:06)
[2024-06-29] MEDS: Silvasorb Gel 45 ML TUBE TOP (15:31)
--- NOTE | 2024-06-29 19:21 | PD.IMPROG ---
Documentation for date of: 06/29/24 Subjective Subjective Interval history: Hemoglobin hematocrit 8.0 and 25.9 No signs of any active bleeding Discussed endoscopic findings with the patient Exam Vital Signs Temp Pulse Resp BP Pulse Ox O2 Del Method O2 Flow Rate 97.4 F 70 18 135/68 H 100 Room Air 3 06/29/24 16:00 06/29/24 19:20 06/29/24 19:08 06/29/24 16:00 06/29/24 19:08 06/29/24 16:00 06/27/24 18:35 Objective Labs 06/28/24 05:29 06/28/24 05:29 Labs: Laboratory Results - last 24 hr 06/29/24 10:13 Stl C. diff Tox B Gene Negative Impressions Impression: # Duodenal ulcers most as a cause of drop in hemoglobin hematocrit and Hemoccult positivity # Gastric motility disorder Continue current management Assessment & Plan A&P Narrative likely allergic rash that seems to be affecting him less, unclear as to what the allergy is to, he does recall recent receipt of a new antidepressant at the [facility] and some spider bites on his elbows (usually mrsa infections) dm II obesity other problems as noted. await operative findings ok for po doxy 100 po bid for now, doxy is the same iv and po btw will see again prn no pos blood cx yet to guide rx, so rx is somewhat empirical on other po meds. so changed to doxy alone po bid for 5d more and stopped the empiric rocephin home or nh at your discretion doxy is not known to adversely affect renal function to my knowledge. Time Spent With Patient Time: Total time spent is greater than 50% in coordination of care (as documented) at patient's floor/unit and/or counseling patient:
[2024-06-29] MEDS: ATORVASTATIN CALCIUM 20 MG TABLET 80 MG PO (20:07)
[2024-06-29] MEDS: INSULIN GLARGINE (Lantus) 5 UNIT/0.05 ML (PER 5 UNITS) 20 UNIT SC (20:29)
[2024-06-30] VITALS (10 sets, daily range): BP systolic 121–168; BP diastolic 59–92; PULSE 58–82; RESP 14–97; TEMP 36.2–36.9; O2SAT 95–99
[2024-06-30] MEDS: ALBUTEROL/IPRATROPIUM (Duoneb) RT SOL 3 ML NEBU INH ×2 (00:48→13:03)
[2024-06-30] MEDS: PREGABALIN 75 MG CAPSULE 150 MG PO ×2 (05:16→14:23)
[2024-06-30] MEDS: LOPERAMIDE 2 MG CAPSULE 4 MG PO ×2 (05:34→14:23)
[2024-06-30] MEDS: INSULIN LISPRO (AdmeLOG) 1 UNIT/0.01 ML UNIT SC ×2 (07:49→17:15)
[2024-06-30] MEDS: METOCLOPRAMIDE 5 MG TABLET 10 MG PO ×2 (07:49→11:56)
[2024-06-30] MEDS: INSULIN GLARGINE (Lantus) 5 UNIT/0.05 ML (PER 5 UNITS) 20 UNIT SC (07:50)
[2024-06-30] MEDS: PANTOPRAZOLE INJ 40 MG VIAL IVP (08:06)
[2024-06-30] MEDS: CYCLObenzaPRINE 5 MG TABLET PO (08:06)
[2024-06-30] MEDS: APIXABAN 2.5 MG TABLET 5 MG PO (08:06)
[2024-06-30] MEDS: DOXYCYCLINE 100 MG TABLET PO (08:06)
[2024-06-30] MEDS: LOSARTAN POTASSIUM 25 MG TABLET 50 MG PO (08:08)
[2024-06-30] MEDS: METOPROLOL SUCCINATE XL 25 MG TABCR 100 MG PO (08:08)
[2024-06-30] MEDS: BUMETANIDE 0.5 MG TABLET 1 MG PO (08:08)
[2024-06-30] MEDS: Silvasorb Gel 45 ML TUBE TOP (08:09)
[2024-06-30] MEDS: amLODIPine BESYLATE 5 MG TABLET 10 MG PO (08:09)
--- NOTE | 2024-06-30 08:27 | PC.SS ---
SS has faxed d/c orders to Julianne from [facility], patient's health insurance. Julianne states she has provided insurance authorization yesterday to [facility] and now [facility] has to contact [facility] for the RIRI (letter of agreement). SS spoke to Marlene at [facility] they will accept pt back but they also require insurance authorization and RIRI ([facility] is not contracted with patient's health insurance) for pt to d/c to them and pt has to agree to their facility.
--- NOTE | 2024-06-30 11:25 | PC.SS ---
At 10:32 SS attempted to contact Nabeel from [facility] but was unsuccessful. SS left voicemail with contact information. SS called [facility] at [phone] and spoke to Lashanda to inform her [facility] is requiring a letter of agreement (RIRI). Lashanda informed SS to fax inquiry to [phone] with [facility]'s tax ID# and NPI# for review. has faxed inquiry to fax # provided and email Nabeel from [facility].
--- NOTE | 2024-06-30 12:34 | PC.SS ---
Addendum entered by Bina Reyes 06/30/24 16:10: SS setup gurney transportation with Jacob from [facility] [phone] and requested [facility]. Ref# [id number]. SS has sent patient's facesheet and ambulance form to [facility] using [employer]. SS spoke to Olivia from [facility] who confirmed she has been contacted by [facility] and transport to [facility] is at 5:30pm. Bedside nurse, Keyla is aware. Pt and girlfriend are aware. Jaquelin at [facility] is aware. Original Note: SS reached out to Jah from [facility] who explained [facility] has been assigned to an nephrology social worker named Lul Olguin and he would contact him. SS called Lul from [facility] 2 times but was unsuccessful SS called Jah from [facility] again to inform him pt is ready for d/c. Jah explained he has sent Lauren message and to call back after 1:30pm. SS spoke to Jaquelin at [facility] who states they will acept pt, setup transport, and they will follow up with
--- NOTE | 2024-06-30 14:32 | PD.RESPRO ---
Documentation for date of: 06/30/24 Subjective Subjective Interval history: 06/30: overnight pt continued to complain of pain in the bones requested and received Dilaudid. pt is seen this morning and is comfortable resting in bed, does not appear to be in pain, the rash has significantly improved and the cellulitis wound is improving as well. Pts c. diff is negative from yesterday. Pt continues to request more Dilaudid. while awaiting insurance authorization for SNF placement medical management remains the same as previously documented. Gen surgeon was consulted, per recommendations, at this time pt does not require surgical intervention (I&D). Exam Vital Signs Temp Pulse Resp BP Pulse Ox O2 Del Method O2 Flow Rate 97.1 F 77 18 168/92 H 99 Room Air 3 06/30/24 12:00 06/30/24 13:06/30/24 13:06/30/24 12:06/30/24 13:06/30/24 12:06/27/24 18:35 Narrative Exam GENERAL: A&Ox3 . Awake, Not in acute distress, obese male NEURO: no focal neurological deficits HEENT: Atraumatic, Normocephalic. mucous membranes moist. Eyes open, symmetrical, & clear HEART: Normal Heart Sounds LUNGS: Coarse breath sounds with wheezing bilaterally ABDOMEN: soft, non-distended, non-tender, bowel sounds heard, no guarding or rebound tenderness SKIN: Generalized faint maculopapular rash over chest back abdomen arms and legs. Also multiple faint scattered petechiae, wound on L. elbow and right forearm Is improving EXTREMITIES: No edema, tenderness, able to move all 4 extremities, pedal pulses palpated Objective Labs 06/28/24 05:29 06/28/24 05:29 Quality Measures Quality Measures VTE prophylaxis Assessment & Plan Assessment Current Active Medications: Generic Name Dose Route Start Last Admin Trade Name Freq PRN Reason Stop Dose Admin Acetaminophen 650 mg 06/25/24 11:33 Acetaminophen 325 Mg Tablet PO 07/25/24 04:27 Q6H PRN Fever >100.4 or Pain(1-3) Hydrocodone Bitart/Acetaminophen 1 tab 06/29/24 12:07 06/29/24 15:51 Hydrocodone/Apap 10/325 Tab PO 07/03/24 10:58 1 tab Q4H PRN Administration PAIN SCALE 7-10(SEVERE) Albuterol/Ipratropium 3 ml 06/25/24 19:00 06/30/24 13:03 Albuterol/Ipratropium (Duoneb) Rt Radha 3 Ml Nebu INH 07/25/24 18:59 3 ml Q6HRRT RINA Administration Amlodipine Besylate 10 mg 06/26/24 12:00 06/30/24 08:09 Amlodipine Besylate 5 Mg Tablet PO 07/26/24 11:59 10 mg QDAY RINA Administration Apixaban 5 mg 06/28/24 11:00 06/30/24 08:06 Apixaban 2.5 Mg Tablet PO 07/28/24 10:59 5 mg BID RINA Administration Atorvastatin Calcium 80 mg 06/25/24 21:00 06/29/24 20:07 Atorvastatin Calcium 20 Mg Tablet PO 07/25/24 20:59 80 mg HS RINA Administration Bumetanide 1 mg 06/25/24 09:00 06/30/24 08:08 Bumetanide 0.5 Mg Tablet PO 07/25/24 08:59 1 mg BID RINA Administration Cyclobenzaprine HCl 5 mg 06/25/24 09:00 06/30/24 08:06 Cyclobenzaprine 5 Mg Tablet PO 07/25/24 08:59 5 mg BID RINA Administration Dextrose 50 ml 06/25/24 05:04 06/27/24 06:21 Dextrose 50%-Water Inj 50 Ml Syringe IV 07/25/24 05:03 50 ml Q15MIN PRN Administration BG <50 OR BG <70 & pt unresponsive Doxycycline Hyclate 100 mg 06/28/24 21:00 06/30/24 08:06 Doxycycline 100 Mg Tablet PO 07/03/24 12:00 100 mg BID RINA Administration Glucagon 1 mg 06/25/24 05:04 Glucagon Inj 1 Mg Vial IM Q15MIN PRN BG <70, and no IV access Hydralazine HCl 10 mg 06/26/24 11:46 Hydralazine Inj 20 Mg/Ml Vial IVP 07/26/24 11:45 Q6H PRN SPB >180 Promethazine HCl 12.5 mg/ 50.5 mls @ 2.5 mls/min 06/26/24 17:19 Sodium Chloride IV 07/26/24 17:18 Q6HR PRN NAUSEA OR VOMITING Protocol Insulin Glargine 25 unit 06/30/24 21:00 Insulin Glargine (Lantus) 5 Unit/0.05 Ml (Per 5 Units) SC 07/30/24 20:59 BID RINA Insulin Human Lispro 0 unit 06/28/24 11:30 06/30/24 11:52 Insulin Lispro (Admelog) 1 Unit/0.01 Ml Unit SC 07/28/24 11:29 Not Given ACHS RINA Protocol Loperamide HCl 4 mg 06/29/24 13:27 06/30/24 14:23 Loperamide 2 Mg Capsule PO 07/06/24 13:26 4 mg Q6HR PRN Administration diarrhea Losartan Potassium 50 mg 06/25/24 09:00 06/30/24 08:08 Losartan Potassium 25 Mg Tablet PO 07/25/24 08:59 50 mg QDAY RINA Administration Metoclopramide HCl 10 mg 06/28/24 07:30 06/30/24 11:56 Metoclopramide 5 Mg Tablet PO 07/28/24 07:29 10 mg ACHS RINA Administration Metoprolol Succinate 100 mg 06/25/24 09:00 06/30/24 08:08 Metoprolol Succinate Xl 25 Mg Tabcr PO 07/25/24 08:59 100 mg QDAY RINA Administration Morphine Sulfate 15 mg 06/28/24 10:59 06/28/24 11:59 Morphine Sulf 15 Mg Tabcr PO 07/03/24 10:58 15 mg QDAY PRN Administration SEVERE PAIN 7-10 Protocol Ondansetron HCl 4 mg 06/25/24 04:28 06/26/24 15:24 Ondansetron Inj 2 Mg/Ml Inj 2 Ml IV 07/25/24 04:27 4 mg Q6H PRN Administration NAUSEA OR VOMITING Protocol Pantoprazole Sodium 40 mg 06/25/24 09:45 06/30/24 08:06 Pantoprazole Inj 40 Mg Vial IVP 07/25/24 09:44 40 mg BID RINA Administration Pregabalin 150 mg 06/30/24 14:00 06/30/24 14:23 Pregabalin 75 Mg Capsule PO 07/30/24 13:59 150 mg TID RINA Administration Sennosides 1 tab 06/25/24 09:00 06/30/24 08:09 Senna Tablet PO 07/25/24 08:59 Not Given QDAY [facility] Protocol Plan Patient currently somnolent and poor historian. History obtained from both chart review and patient's testimony. Mr. Fisher is a 54-year-old male with past medical history of insulin-dependent diabetes mellitus [>14%], CAD, HFpEF [55-60%], CVA with b/l endarterectomy, pulmonary embolism on Eliquis, essential hypertension, obstructive sleep apnea, OHS/CAROLYN, cirrhosis and left groin abscess s/p I&D 05/11/24. He presented to the to the emergency department with a chief complaint of generalized pruritic rash from [facility]. Patient is admitted for Upper GI bleed rewuiring transfusion and cellulitis with failed outpatient p.o. antibiotics. #Acute blood loss anemia secondary to #upper GI bleed #Hx of cirrhosis -On admission patient's Hb 6.7 --> post transfusion Hgb 7.7 and Hct 25.4 -Baseline Hgb between 7?9 DDx: Anemia of chronic disease, peptic ulcer disease, inflammatory anemia Plan: -Type and screen -1 unit PRBC transfused 06/25 -Posttransfusion H&H shows significant improvement -Avoid NSAIDs -Pantoprazole 40 Mg IVP twice daily -Octreotide drip discontinued -GI consulted, appreciate recommendations, EGD scheduled for June 27 -Monitor daily CBC, will transfuse again if hemoglobin <7 #Generalized rash?improving?improving #Left elbow cellulitis #infected insect bite #History of left groin abscess s/p I&D 05/11/2024 -Patient presented with a generalized pruitic maculopapular rash all over his body with scattered petechiae. -Pt is assuming the wound on his elbow and right forearm is from spider bite at the nursing facility -Pt is a poor historian therefore is unable to give direct information on the details of symptoms -t started escitalopram as a new medicationa and soon after Pt has this new diffuse rash. Although the rash is not improving the pruitis does improve with Benadryl DDx : HSP (IgA vasculitis), Hypersensitivity reaction to escitalopram, spider bite , drug reaction Plan: -MRSA nasal screen positive -Blood culture negative -Hydrocortisone 100 Mg IV x 1 -Benadryl 25 Mg IV x 1 -Ceftriaxone 1 g IV daily started on [06/25?06/28) -Doxycycline 100 Mg IV twice daily started on [06/25?to be continued till July 03 -CT of elbow with contrast shows extensive cellulitis but no abscess -wound care ordered -Hold home escitalopram, likely the source of his maculopapular rash and discontinue this medication on discharge - Infectious disease, Dr. Galindo consulted. Appreciate recommendations # HFpEF [55-60%] # CAD -On admission patient denied any SOB, PND, orthopnea and LE swelling. -On exam patient's lungs had decreased air entry globally Last transthoracic echocardiogram completed on 04/24/2024 findings include: Suboptimal images due to body habitus. Normal LV size and function. Mild LVH. Grade I diastolic dsyfunction. Estimated EF 55-60% Mild RV dilation. Normal RV function. Mild biatrial dilation. Trace MR, TR. Mild AV sclerosis without stenosis. There is a small circumferential pericardial effusion. No evidence of cardiac tamponade. Home medication Bumex 1 Mg p.o. twice daily, metoprolol XL 100 Mg p.o. daily, Atorvastatin 80 mg po HS Plan: ? Resume home medication ? Resume Bumex 1 Mg p.o. twice daily ? Resume metoprolol XL 100 Mg p.o. daily - Resumed Atorvastatin 80 mg po HS #Hypertensive urgency?resolved # History of primary hypertension -On admission patient's BP 196/99 which spontaneously reduced to 148/70 -resume home losartan 50mg Qday #Acute kidney injury - improving On admission patient CR 1.4 -->1.3 Baseline CR between 0.9?1.1 Plan: ? Renally dose medication ? Avoid nephrotoxic agents #Insulin-dependent diabetes mellitus type 2 [>14%] -Patient's last HbA1c from [05/11/2024] >14%, BG today 177 -Home medication insulin degludec 95 units twice daily and Ozempic 2 Mg SC weekly Plan: ? Started insulin glargine 40 units SC at bedtime ? SSI to cover for any blood glucose spikes #History of CVA with B/L endarterectomy #History of pulmonary embolism on Eliquis Plan: ? Eliquis on hold for now in light of acute blood loss anemia. #Obstructive sleep apnea #Obesity hypoventilation syndrome Plan: ? CPAP at night ordered Disposition: Medsurg for EGD pending DVT Prophylaxis: SCD QSHIFT GI Prophylaxis: Pantoprozol-40 IV BID Diet: carbohydrate consistent low Code status: Full Assessment and plan discussed with my senior resident Dr. Albarran & attending physician Dr. Karma Morgan (PGY-1)- Internal medicine resident Attending Provider Attestation/Addendum I reviewed labs, imaging, EKG, home medications and prior available records. Face to face evaluation was performed by me. I have personally examined the patient and discussed assessment and plan with the IM team. I reviewed the resident note and agree with the plan with exceptions as below. Lower extremity rash Upper GI bleed Acute anemia Left elbow abscess Chronic pain Opioid tolerance HFpEF Morbid obesity Uncontrolled diabetes mellitus with hyperglycemia, type II, insulin-dependent Patient has diarrhea which improved. C. difficile was ordered and was negative. Rash is possibly due to escitalopram. Discontinued the medication. Rash improved Status post EGD that showed esophagitis and duodenal ulcer legendary gastric motility disorder. Continue PPI. Reglan as needed Status post 1 PRBC transfusion. Hemoglobin stable posttransfusion Requiring IV Dilaudid given his high opiate tolerance. Weaned off of IV Dilaudid and can continue his p.o. hydrocodone as needed Continue ceftriaxone/doxycycline for the elbow infection. CT scan showed no abscess formation. Consulted general surgery who recommended no debridement. Will discharge on p.o. doxycycline. Patient got authorization for another SNF placement Time spent is 40 minutes. More than 50% of the time was spent on patient education and coordination of care.
[2024-06-30] MEDS: HYDROcodone/APAP 10/325 TAB PO (15:50)
--- NOTE | 2024-06-30 16:05 | PC.NURSE ---
report given to Kwesi at [facility]
--- NOTE | 2024-06-30 20:26 | PD.IMPROG ---
Documentation for date of: 06/30/24 Subjective Subjective Interval history: Late entry for the note Slight drop in hemoglobin hematocrit 8.0 and 25.8 Patient can be discharged home to be followed by the PCP Exam Vital Signs Temp Pulse Resp BP Pulse Ox O2 Del Method O2 Flow Rate 97.3 F 71 18 156/82 H 97 Room Air 3 06/30/24 16:00 06/30/24 16:00 06/30/24 16:00 06/30/24 16:00 06/30/24 16:00 06/30/24 16:00 06/27/24 18:35 Objective Labs 06/28/24 05:29 06/28/24 05:29 Impressions Impression: # Upper GI bleed secondary to duodenal ulceration Okay to discharge patient on oral PPI to be followed by primary care physician Assessment & Plan A&P Narrative likely allergic rash that seems to be affecting him less, unclear as to what the allergy is to, he does recall recent receipt of a new antidepressant at the [facility] and some spider bites on his elbows (usually mrsa infections) dm II obesity other problems as noted. await operative findings ok for po doxy 100 po bid for now, doxy is the same iv and po btw will see again prn no pos blood cx yet to guide rx, so rx is somewhat empirical on other po meds. so changed to doxy alone po bid for 5d more and stopped the empiric rocephin home or nh at your discretion doxy is not known to adversely affect renal function to my knowledge. Time Spent With Patient Time: Total time spent is greater than 50% in coordination of care (as documented) at patient's floor/unit and/or counseling patient:
== END 2024-06-30 17:36 | disposition skilled nursing facility (03) | DRG 241 ==
LOC: SERX 06-25 02:19 → SERHOLD 06-25 04:43 → S3SX 06-25 06:01 → S3NX 06-26 12:42
PROVIDERS: Internal Medicine; Internal Medicine Infectious Disease; Specialist; Student in an Organized Health Care Education/Training Program; Admitting Provider Student in an Organized Health Care Education/Training Program; Emergency Provider Emergency Medicine; PCP Family Medicine; Visit Provider Student in an Organized Health Care Education/Training Program
PROC: 0DJ08ZZ Inspection of Upper Intestinal Tract, Via Natural or Artificial Opening Endoscopic (ICD-10-PCS; CPT 43239; principal; 2024-06-27 16:30)
DX: K29.61 Other gastritis with bleeding (principal); L03.114 Cellulitis of left upper limb; I11.0 Hypertensive heart disease with heart failure; I50.32 Chronic diastolic (congestive) heart failure; K74.60 Unspecified cirrhosis of liver; L02.414 Cutaneous abscess of left upper limb; I25.10 Atherosclerotic heart disease of native coronary artery without angina pectoris; D62 Acute posthemorrhagic anemia; I16.0 Hypertensive urgency; N17.9 Acute kidney failure, unspecified; Z68.42 Body mass index [BMI] 45.0-49.9, adult; T63.301A Toxic effect of unspecified spider venom, accidental (unintentional), initial encounter; K20.91 Esophagitis, unspecified with bleeding; K26.4 Chronic or unspecified duodenal ulcer with hemorrhage; E11.65 Type 2 diabetes mellitus with hyperglycemia; E66.2 Morbid (severe) obesity with alveolar hypoventilation; E78.5 Hyperlipidemia, unspecified; G89.29 Other chronic pain; L89.150 Pressure ulcer of sacral region, unstageable; L27.0 Generalized skin eruption due to drugs and medicaments taken internally; T43.225A Adverse effect of selective serotonin reuptake inhibitors, initial encounter; F17.210 Nicotine dependence, cigarettes, uncomplicated; Z86.73 Personal history of transient ischemic attack (TIA), and cerebral infarction without residual deficits; Z86.711 Personal history of pulmonary embolism; Z79.4 Long term (current) use of insulin; Z79.01 Long term (current) use of anticoagulants; Z79.899 Other long term (current) drug therapy; Z79.51 Long term (current) use of inhaled steroids
CPT/HCPCS: 36415; 71045; 73070; 73090; 73201; 80053; 80074; 82140; 82270; 82550; 82607; 82746; 82947; 83605; 83735; 84100; 84145; 84443; 85014; 85018; 85025; 85652; 86140; 86703; 86780; 86850; 86900; 86901; 86923; 87040; 87081; 87493; 93005; 94640; 94664; 96365; 96367; 97162; 99291; A4649; A9270; J0360; J0696; J1200; J1643; J1720; J1815; J2250; J2270; J2354; J2405; J2470; J2543; J3010; J3371; J3490; J7050; P9016; Q9967; S0077; J0737

== ENCOUNTER 2024-07-14 11:55 | Inpatient (IN) | payer MEDICAID, SELFPAY ==
[2024-07-14] VITALS (60 sets, daily range): BP systolic 111–188; BP diastolic 60–104; PULSE 71–133; RESP 9–28; TEMP 36.1–36.3; O2SAT 91–100; BMI 62.6
--- NOTE | 2024-07-14 12:01 | XR_ITS ---
Examination: AP chest single view TECHNIQUE: AP portable semiupright chest single view Exam date and time: July 14, 2024 at 1406 hours INDICATIONS: Respiratory distress, hypoxia 3 days FINDINGS: Significant CHF Moderate enlargement cardiac contour with prominent vascular congestion and prominent bilateral perihilar edema Moderate osteopenia IMPRESSION: Prominent CHF
--- NOTE | 2024-07-14 12:02 | EKG_ITS ---
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: [facility] : 1970 Requested By: Juliocesar Perez Order Number: [id number] Reading MD: Juliocesar Perez Measurements Intervals [place] Rate: 80 P: 9 AL: 215 QRS: -31 QRSD: 89 T: -8 QT: 364 QTc: 422 Interpretive Statements SINUS RHYTHM WITH FIRST DEGREE AV BLOCK WITH OCCASIONAL VENTRICULAR PREMATURE COMPLEXES POSSIBLE LEFT ATRIAL ENLARGEMENT [-0.1mV P WAVE IN V1/V2] MARKED LEFT AXIS DEVIATION [QRS AXIS < -30] MODERATE ST DEPRESSION [0.05+ mV ST DEPRESSION] Compared to ECG 06/25/2024 01:14:08 Ventricular premature complex(es) now present First degree AV block now present Left-axis deviation now present ST (T wave) deviation now present Left anterior fascicular block no longer present /store/S0/[id number]
[2024-07-14] MEDS: SODIUM CHLORIDE RT SOL 0.9% 3 ML NEBU INH (12:11)
[2024-07-14] MEDS: IPRATROPIUM RT 0.5 MG/ 2.5 ML NEBU 1 MG INH (12:11)
[2024-07-14] MEDS: ALBUTEROL RT 2.5 MG/0.5 ML NEBU 10 MG INH (12:11)
[2024-07-14] MEDS: FUROSEMIDE INJ 10 MG/ML 4ML VIAL 40 MG IVP (12:12)
[2024-07-14] MEDS: MethylPREDNISolone SOD SUCC 62.5 MG/ML 2ML VIAL 125 MG IVP (12:12)
[2024-07-14 12:32] LABS: Lactate (Lactic Acid) 1.2 mMol/L (0.4-2.0)
[2024-07-14 12:38] LABS: Basophils % (Auto) 0 % (0-2.5); Eosinophils # (Auto) 0.2 Thou/mm3 (0.0-0.5); Eosinophils % (Auto) 2 % (0-10); Immature Granulocytes % (Auto) 1 % (0-0); Immature Granulocytes Auto 0.06 Thou/mm3 (0.00-0.00); Lymphocytes # (Auto) 0.8 Thou/mm3 (1.0-4.8); Lymphocytes % (Auto) 8 % (10-50); Mean Corpuscular Hemoglobin 25.5 pg (25.0-35.0); Mean Corpuscular Volume 85 fL (80-100); Monocytes # (Auto) 0.7 Thou/mm3 (0.0-0.8); Monocytes % (Auto) 7 % (0-12); Neutrophils # (Auto) 8.8 Thou/mm3 (1.8-7.7); Neutrophils % (Auto) 83 % (37-80); Nucleated Red Blood Cell % 0 /100 WBC (0); Platelet Count 234 Thou/mm3 (140-440); RDW Standard Deviation 49.1 fL (35.1-43.9); Red Blood Count 2.35 Miln/mm3 (4.50-5.90); White Blood Count 10.7 Thou/mm3 (3.8-10.6)
--- NOTE | 2024-07-14 12:52 | EDNOTE_ITS ---
ED SOB =RME/HPI General Chief Complaint: Shortness of Breath/Dyspnea Stated Complaint: SOB Time Seen by Provider: 07/14/24 12:00 Arrival date/time: 07/14/24 11:55 RME / HPI RME / HPI Narrative: 54 year old male with history of CVA, CAD s/p stenting, HFpEF 55-60% 04/2024, asthma, CAROLYN, hypertension, insulin-dependant diabetes, chronic back pain presents to the ED BIB from [facility] for evaluation of shortness of breath today. Per medics, [place] staff at the facility reported patient was saturating 87% on room air and was placed on 3L nasal cannula with improvement to 95%. Per medics, [facility] staff reported patient refused to take his Lasix today and has had recent weight gain. Evidently Dr. Kevin wanted patient sent for possible fluid overload. Per medics, patient was given 3 SL Nitro and 2 Nitro paste on chest. While in the ED patient complains of shortness of breath and headache. No fevers, chills, abdominal pain, n/v, or urinary symptoms. Related Data Home Medications ?Medication ?Instructions ?Recorded ?Confirmed hydrocodone 10 mg-acetaminophen 1 tab PO Q4H PRN Pain, Moderate 10/22/23 06/25/24 325 mg tablet metoprolol succinate 100 mg 100 mg PO DAILY 10/22/23 06/25/24 tablet,extended release 24 hr pregabalin 150 mg capsule 150 mg PO TID 10/22/23 06/25/24 morphine 15 mg tablet,extended 15 mg PO QDAY PRN Pain, Severe 01/14/24 06/25/24 release apixaban 5 mg tablet 5 mg PO BID 06/25/24 06/25/24 ascorbic acid (vitamin C) 500 mg 500 mg PO BID 06/25/24 06/25/24 tablet (Vitamin C) atorvastatin 80 mg tablet 80 mg PO QPM 06/25/24 06/25/24 budesonide-formoterol HFA 160 2 puff inhalation BID 06/25/24 06/25/24 mcg-4.5 mcg/actuation aerosol inhaler cyclobenzaprine 5 mg tablet 5 mg PO BID 06/25/24 06/25/24 doxycycline hyclate 100 mg tablet 100 mg PO BID 06/25/24 06/25/24 vitamin B complex-vitamin C-folic 1 tab PO QDAY 06/25/24 06/25/24 acid 0.8 mg tablet (Sapphire-Holly) Previous Rx's ?Medication ?Instructions ?Recorded sennosides 8.6 mg tablet (senna) 8.6 mg PO BID PRN constipation #30 10/26/23 tabs bumetanide 1 mg tablet 1 mg PO BID 30 days #7 tabs 01/17/24 metoclopramide HCl 5 mg tablet 5 mg PO Q6H gastroparesis 30 days 01/17/24 #120 tabs menthol 0.44 %-zinc oxide 20.6 % 1 applic topical QID PRN skin 04/27/24 topical ointment (Calmoseptine) irritation #113 grams losartan 50 mg tablet 50 mg PO QDAY #30 tabs 05/22/24 amlodipine 10 mg tablet 10 mg PO QDAY #30 tabs 06/29/24 insulin detemir U-100 100 unit/mL 30 unit (0.3 mL) subcut BID #15 mL 06/29/24 (3 mL) subcutaneous pen Allergies Allergy/AdvReac Type Severity Reaction Status Date / Time ketorolac Allergy Severe TONGUE Verified 07/26/23 22:55 SWELLS UP escitalopram Allergy Intermediate Rash Verified 06/28/24 10:52 Review of Systems Review of Systems Narrative Review of Systems: Gen: No fever, no chills, no weight loss EYES: No discharge, no visual changes, no pain HEENT: No ear pain, no congestion, no sore throat PULM:+ shortness of breath,+ cough CV: No chest pain, no dyspnea on exertion, no palpitations, no chest tightness GI: No nausea, no vomiting, no diarrhea, no pain, no constipation : No frequency, no urgency,? no dysuria Musc/skel: No joint pain, no back pain Skin: No rash, no ecchymosis, no lesions Neuro: No weakness, no headache Past Medical History Past Medical History NEUROLOGIC: Positive Neurological Disorders, Cerebrovascular Accident, Transient Ischemic Attacks (TIA) and Willis's Palsy CARDIAC: Positive Cardiac Disorders, Myocardial Infarction, Coronary Artery Disease, Atherosclerotic Heart Disease, Hypercholesterolemia, Congestive Heart Failure, Deep Vein Thrombosis and Hypertension RESPIRATORY: Positive Asthma, Pulmonary Embolism and Sleep Apnea GASTROINTESTINAL: Positive Gastrointestinal Disorders and Obesity GENITOURINARY: Positive Genitourinary Disorders and Kidney Stones MUSCULOSKELETAL: Positive Musculoskeletal Disorders and Degenerative Disk Disease ENDOCRINE: Positive Endocrine Disorders and Diabetes Mellitus Type 2 HEMATOLOGIC: Positive Blood Disorders and Anemia PSYCHO/SOCIAL: Positive Anxiety OTHER HISTORY: Positive Falls, Blood Transfusions, Blood Transfusion Reaction and Chicken Pox Family History FAMILY HISTORY: Positive Family Respiratory Disorders and Family Cardiac Disorders Surgical History SURGICAL: Positive Cardiac Surgery, Coronary Stent and Carotid Endarterectomy Social History SMOKING STATUS: Current some day smoker SECOND HAND EXPOSURE: No ([id number] x 4 yrs) SUBSTANCE USE: does not use ED Exam Narrative Physical exam: GENERAL APPEARANCE: AxOx4, nontoxic appearing HEENT: NC, AT. MMM. EOMI, clear conjunctiva, oropharynx clear. NECK: Supple without lymphadenopathy. No stiffness or restricted ROM. HEART: Normal rate and regular rhythm, normal S1/S1, no m/r/g LUNGS: Diminished breath sounds with valdivia expiratory and inspiratory wheezing. No crackles are heard. ABDOMEN: Soft, nontender, nondistended with good bowel sounds heard. BACK: No midline C/T/L spine pain or deformity, No CVAT, no obvious deformity. EXTREMITIES: Without cyanosis, clubbing or edema. MUSCULOSKELETAL: FROM of all major joints, no chest tenderness NEUROLOGICAL: Grossly nonfocal. Alert and oriented, moving all 4 extremities. CN not formally tested but appear grossly intact. Skin: Warm and dry without any rash. Course Course Course Narrative: chest xray ordered to help determine etiology of shortness of breath. Quality Measures none Orders Category Date Time Status Bedside COVID-19 Antigen Test NOW Care 07/14/24 14:31 Active COVID-19 Screening Questionnaire NOW Care 07/14/24 14:25 Active Decision to Admit X1 Care 07/14/24 14:25 Completed EKG (ED ONLY) *Do not use* NOW Care 07/14/24 12:02 Completed Transfuse,blood/blood products NOW Care 07/14/24 14:10 Active Consult to Gastroenterology Stat Cons 07/14/24 14:12 Ordered Diet Clear Liquid Diet 07/14/24 Dinner Completed CA echo doppler limited Stat Exams 07/14/24 14:37 Ordered EKG (ED Only) Stat Exams 07/14/24 12:02 Ordered XR chest 1V portable Stat Exams 07/14/24 12:01 Completed ABG [Arterial Blood Gas] Stat Lab 07/14/24 16:37 Completed BNP [B-Type Natriuretic Peptide] Stat Lab 07/14/24 12:10 Completed Blood Culture (Lab) Stat Lab 07/14/24 12:10 Received CBC Stat Lab 07/14/24 12:10 Completed CMP [Comprehensive Metabolic Panel] Stat Lab 07/14/24 12:10 Completed Lactate (Lactic Acid) Stat Lab 07/14/24 12:10 Completed Troponin I Stat Lab 07/14/24 12:10 Completed Type and Screen Stat Lab 07/14/24 15:45 Results prbc [Red Blood Cells] Stat Lab 07/14/24 15:45 Results ALBUTEROL RT 0.5ml [Proventil Rt 0.5ml] Med 07/14/24 12:01 Discontinued 10 mg INH X1 ONE Acetaminophen Tab [Tylenol Tab] Med 07/14/24 13:16 Discontinued 650 mg PO X1 ONE Bumetanide Inj [Bumex Inj] Med 07/14/24 14:35 Discontinued 1 mg IVP X1 ONE Bumetanide Inj [Bumex Inj] Med 07/14/24 21:00 Active 2 mg IVP BID Furosemide Inj [Lasix Inj] Med 07/14/24 12:01 Discontinued 40 mg IVP X1 ONE Ipratropium [place] Rt Radha [Atrovent Rt Radha] Med 07/14/24 12:01 Discontinued 1 mg INH X1 ONE MethylPREDNISolone.* [SoluMEDROL Inj] Med 07/14/24 12:01 Discontinued 125 mg IVP X1 ONE Pantoprazole Inj [Protonix Inj] Med 07/14/24 14:15 Discontinued 40 mg IV BID Sodium Chloride Rt Radha 0.9% [NS Rt Radha 0.9%] Med 07/14/24 12:01 Active 3 ml INH PRN PRN BiPAP / CPAP NOW RT 07/14/24 12:01 Active Reevaluation(s) Reevaluation #1: On reassessment the patient states he is breathing better, blood pressure has normalized. Time: 13:16 Vital Signs Vital signs: Vital Signs Pulse Rate 79 07/14/24 12:11 Shortness of Breath / Dyspnea MDM Narrative MDM Narrative:: Jessica Camara am scribing for and in the presence of Dr. Perez. Patient data External records reviewed:: [facility] previous records (I reviewed admission from 06/25/2024 through 06/30/2024), EMS form and Skilled Nursing records (I reviewed txfer packet from [facility]) Clinical information provided by:: patient and EMS Social determinants that could affect healthcare access:: housing ([facility] resident) Patient has the following chronic illnesses:: CVA, CAD s/p stenting, HFpEF 55-60% 04/2024, asthma, CAROLYN, hypertension, insulin-dependant diabetes, chronic back pain How is presenting disease/condition affected by chronic disease/condition?: exacerbated by Evaluation data The following diagnostics were reviewed and interpreted by me:: lab results, radiology exam(s) and EKG tracing(s) (Supraventricular rhythm, rate 78, no STEMI ) Lab and/or radiology exams considered but not ordered:: None Interpretation Summary: Ordering Physician: Juliocesar Perez MD Date of Service: 07/14/24 Procedure(s): XR chest 1V portable Accession Number(s): [id number] cc: Juliocesar Perez MD; Julio Beebe MD~ Examination: AP chest single view TECHNIQUE: AP portable semiupright chest single view Exam date and time: July 14, 2024 at 1406 hours INDICATIONS: Respiratory distress, hypoxia 3 days FINDINGS: Significant CHF Moderate enlargement cardiac contour with prominent vascular congestion and prominent bilateral perihilar edema Moderate osteopenia IMPRESSION: Prominent CHF Dictated By: Julio Beebe MD Signed By: <Electronically signed by Julio Beebe MD in OV> 07/14/24 1415 Medications / Prescriptions Medications or Prescriptions considered but not ordered:: None Medication administrations:: Medication Administration History Acetaminophen (Acetaminophen 325 Mg Tablet) 650 mg PO Q6H PRN PRN Reason: PAIN SCALE 1-3 (mild Stop: 08/13/24 16:28 Acetaminophen (Acetaminophen 325 Mg Tablet) 650 mg PO Q6H PRN PRN Reason: Fever >100 Stop: 08/13/24 16:28 Hydrocodone Bitart/Acetaminophen (Hydrocodone/Apap 10/325 Tab) 1 tab PO Q4HR PRN PRN Reason: PAIN SCALE 7-10 (Severe Stop: 07/19/24 16:28 Albuterol/Ipratropium (Albuterol/Ipratropium (Duoneb) Rt Radha 3 Ml Nebu) 3 ml INH Q4HRRT RINA Stop: 08/13/24 18:59 Atorvastatin Calcium (Atorvastatin Calcium 20 Mg Tablet) 80 mg PO HS RINA Stop: 08/13/24 20:59 Bumetanide (Bumetanide Inj 0.25 Mg/Ml Vial 4 Ml) 2 mg IVP BID RINA Stop: 08/13/24 20:59 Dextrose (Dextrose 50%-Water Inj 50 Ml Syringe) 25 ml IV Q15MIN PRN PRN Reason: BG 50-70 responsive npo pt Stop: 08/13/24 16:30 Dextrose (Dextrose 50%-Water Inj 50 Ml Syringe) 50 ml IV Q15MIN PRN PRN Reason: BG <50 OR BG <70 & pt unresponsive Stop: 08/13/24 16:30 Glucagon (Glucagon Inj 1 Mg Vial) 1 mg IM Q15MIN PRN PRN Reason: BG <70, and no IV access Ceftriaxone Sodium/Dextrose (Rocephin/D5w 1gm Iv Premix) 50 mls @ 100 mls/hr IV QDAY RINA Stop: 07/21/24 17:06 Insulin Glargine (Insulin Glargine (Lantus) 5 Unit/0.05 Ml (Per 5 Units)) 20 unit SC BID [facility] Stop: 08/13/24 20:59 Insulin Human Lispro (Insulin Lispro (Admelog) 1 Unit/0.01 Ml Unit) 0 unit SC ACHS [facility]; Protocol Stop: 08/13/24 16:59 Last Admin: 07/14/24 17:41 Dose: Not Given Documented By: TM Non-Admin Reason: Per Protocol Losartan Potassium (Losartan Potassium 25 Mg Tablet) 50 mg PO QDAY RINA Stop: 08/14/24 08:59 Ondansetron HCl (Ondansetron Inj 2 Mg/Ml Inj 2 Ml) 4 mg IV Q6H PRN; Protocol PRN Reason: NAUSEA OR VOMITING Stop: 08/13/24 16:28 Oxycodone/Acetaminophen (Oxycodone/Apap 5/325 Tablet) 1 tab PO Q6H PRN PRN Reason: PAIN SCALE 4-6 (Moderate Stop: 07/19/24 16:28 Pantoprazole Sodium (Pantoprazole Inj 40 Mg Vial) 40 mg IVP QDAY RINA Stop: 08/14/24 08:59 Sodium Chloride (Sodium Chloride Rt Radha 0.9% 3 Ml Nebu) 3 ml INH PRN PRN PRN Reason: SOLN Stop: 08/13/24 12:00 Last Admin: 07/14/24 12:11 Dose: 3 ml Documented By: SHANE Discontinued Medications Acetaminophen (Acetaminophen 325 Mg Tablet) 650 mg PO X1 ONE Stop: 07/14/24 13:17 Last Admin: 07/14/24 14:24 Dose: 650 mg Documented By: TM Albuterol (Albuterol Rt 2.5 Mg/0.5 Ml Nebu) 10 mg INH X1 ONE Stop: 07/14/24 12:02 Last Admin: 07/14/24 12:11 Dose: 10 mg Documented By: SHANE Bumetanide (Bumetanide Inj 0.25 Mg/Ml Vial 4 Ml) 1 mg IVP X1 ONE Stop: 07/14/24 14:36 Last Admin: 07/14/24 15:09 Dose: 1 mg Documented By: ED Furosemide (Furosemide Inj 10 Mg/Ml 4ml Vial) 40 mg IVP X1 ONE Stop: 07/14/24 12:02 Last Admin: 07/14/24 12:12 Dose: 40 mg Documented By: TM Insulin Glargine (Insulin Glargine (Lantus) 5 Unit/0.05 Ml (Per 5 Units)) 40 unit SC QDAY RINA Stop: 08/13/24 16:44 Ipratropium [place] (Ipratropium Rt 0.5 Mg/ 2.5 Ml Nebu) 1 mg INH X1 ONE Stop: 07/14/24 12:02 Last Admin: 07/14/24 12:11 Dose: 1 mg Documented By: SHANE Methylprednisolone Sodium Succinate (Methylprednisolone Sod Succ 62.5 Mg/Ml 2ml Vial) 125 mg IVP X1 ONE Stop: 07/14/24 12:02 Last Admin: 07/14/24 12:12 Dose: 125 mg Documented By: TM Pantoprazole Sodium (Pantoprazole Inj 40 Mg Vial) 40 mg IV BID RINA Stop: 08/13/24 14:14 Last Admin: 07/14/24 14:24 Dose: 40 mg Documented By: TM See above Consultations Consultation(s) initiated? (list below): Yes Consultation #1 (Physician, Specialty, Details): I spoke with GI Dr. Wakefield. Discussed patients PMHx, HPI, ED course, exam findings, labs, and radiology results. Advised to start patient on PPIs and plans to perform a colonoscopy. He agree to consult. Time: 14:08 Consultation #2 (Physician, Specialty, Details): I spoke with resident Dr. Albarran working with Dr. Sanchez. Discussed patients PMHx, HPI, ED course, exam findings, labs, and radiology results. The hospitalist agree to accept the patient for admission. Diagnosis Shortness of Breath Differential Diagnosis: acute exacerbation of chronic obstructive airways disease, congestive heart failure, community acquired pneumonia, asthma with exacerbation and pulmonary embolism Most likely diagnosis given after review of the tests above:: COPD exacerbation GI bleeding Hemorrhagic anemia Admission Indicated Admission indicated?: indicated Admission Request Was there a request for admission?: Yes Admission Attestation Admission request attestation: Discussed case with [] from Hospitalist service regarding admission. Discussed patients ED course, exam findings, labs, and radiology results. The Hospitalist [agrees,declines] to accept the patient for admission. Disposition Plan Disposition Plan: Admit Critical Care Time Critical Care Time Critical Care Time: Yes Total Critical Care Time (min.): 45 Attestation: The high probability of sudden, clinically significant deterioration in the patient's condition required the highest level of my preparedness to intervene urgently. The services I provided to this patient were to treat and/or prevent clinically significant deterioration. Services included the following: chart data review, reviewing nursing notes and/or old charts, documentation time, wedding consultant collaboration regarding findings and treatment options, medication orders and management, direct patient care, vital sign assessments and ordering, interpreting and reviewing diagnostic studies and lab tests. Aggregate critical care time includes only time during which I was engaged in work directly related to the patient's care, as described above, whether at bedside or elsewhere in the Emergency Department. It did not include time spent performing other reported procedures or the services of residents, students, nurses or physician assistants. Discharge Plan Plan Patient Disposition: Admit Acute Care w/in Hospital Problem List Clinical Impression: COPD exacerbation, Blood loss anemia, GI bleed
[2024-07-14 12:56] LABS: Alanine Aminotransferase 37 U/L (10-49); Albumin, Serum 3.7 gm/dL (3.5-5.0); Alkaline Phosphatase 191 U/L (46-116); Anion Gap 12 (7-16); Aspartate Amino Transferase 56 U/L (0-34); BUN/Creatinine Ratio 53 Ratio (12-20); Bilirubin,Total < 0.2 mg/dL (0.3-1.2); Blood Urea Nitrogen 64 mg/dL (9-23); Calcium 8.9 mg/dL (8.3-10.6); Calcium (Corrected) 9.1 mg/dL (8.5-10.1); Carbon Dioxide 24.5 mMol/L (20.0-31.0); Chloride 103 mMol/L (98-107); Creatinine (Component) 1.2 mg/dL (0.6-1.3); Estimated Creatinine Clearance 109.1 mL/min (>60); Globulin 3.8 gm/dL (2.3-3.5); Glucose 105 mg/dL (74-106); Osmolality,Calculated 295 (275-295); Potassium 4.8 mMol/L (3.4-5.1); Sodium 139 mMol/L (136-145); Total Protein 7.5 gm/dL (5.7-8.2); Troponin I < 0.020 ng/mL (0.0-0.045); eGFR > 60 See Note
[2024-07-14 13:43] LABS: B-Type Natriuretic Peptide 539 pg/mL (0-100)
[2024-07-14] MEDS: PANTOPRAZOLE INJ 40 MG VIAL IV (14:24)
[2024-07-14] MEDS: ACETAMINOPHEN 325 MG TABLET 650 MG PO (14:24)
--- NOTE | 2024-07-14 14:37 | ECHO_ITS ---
Transthoracic Echo Report Ht (in): 67 Wt (lb): 400 Exam Location: Echo Lab Status: Preadmit [employer] Shoe Spike Assembler: Erendira Eid Indications: Procedure Performed: BP: 226 / 115 HR: 85 Rhythm: Sinus Technical Quality: Very technically difficult study MEASUREMENTS (Male / Female) Normal Values 2D ECHO LV Diastolic Diameter PLAX 6.5 cm 4.2 - 5.9 / 3.9 - 5.3 cm LV Systolic Diameter PLAX 4.0 cm IVS Diastolic Thickness 1.3 cm 0.6 - 1.0 / 0.6 - 0.9 cm LVPW Diastolic Thickness 1.2 cm 0.6 - 1.0 / 0.6 - 0.9 cm LV Relative Wall Thickness 0.4 LVOT Diameter 2.3 cm DOPPLER AV Peak Velocity 185.0 cm/s AV Peak Gradient 13.7 mmHg AV Mean Gradient 7.0 mmHg AV Velocity Time Integral 36.2 cm LVOT Peak Velocity 144.0 cm/s LVOT Peak Gradient 8.3 mmHg LVOT Velocity Time Integral 30.5 cm LVOT Cardiac Index 3533.6 cm?/min?m? AV Area Cont Eq vti 3.5 cm? AV Area Cont Eq pk 3.2 cm? MV Area PHT 5.6 cm? Mitral E Point Velocity 123.0 cm/s Mitral A Point Velocity 90.7 cm/s Mitral E to A Ratio 1.4 LV E' Lateral Velocity 7.8 cm/s Mitral E to LV E' Lateral Ratio 15.7 LV E' Septal Velocity 10.9 cm/s Mitral E to LV E' Septal Ratio 11.3 FINDINGS Left Ventricle Normal left ventricular size, systolic function with no obvious regional wall motion abnormalities. Mild LVH. Normal left ventricular diastolic filling pattern for age. The ejection fraction is visually es timated at 55- 60 %. Right Ventricle The right ventricle is normal in size and systolic function. Left Atrium The left atrium is normal by two-dimensional, color flow and Doppler imaging with no structural abnormalities, no thrombus formation present. Right Atrium The right atrium is normal by two-dimensional imaging, color flow and Doppler imaging with no struct ural abnormalities, no thrombus formation present. Atrial Septum The interatrial septum appears normal with no evidence of a shunt. Aorta The aorta is normal by two-dimensional, color flow and Doppler interrogation. Mitral Valve The mitral valve is normal by two-dimensional, color flow and Doppler interrogation. There is trace mitral valve regurgitation, stenosis or prolapse. Aortic Valve The aortic valve is trileaflet and normal by two-dimensional, color flow and Doppler interrogation. There is no significant aortic valve regurgitation. Tricuspid Valve The tricuspid valve is normal by two-dimensional, color flow and Doppler interrogation. There is tra ce tricuspid valve regurgitation. Pulmonic Valve The pulmonic valve is not well visualized. There is no significant pulmonic valve regurgitation. Vessels Inferior vena cava not well visualized. Pericardium The pericardium is normal by two-dimensional imaging. There is no significant pericardial effusion. CONCLUSIONS Indication: SOB and evaluate LV function. Suboptimal images due to body habitus. Normal LV size and function. Estimated EF 55-60% Normal RV size and function. Trace MR and TR. Pierre Hancock (Electronically Signed) Final Date: 17 July 2024 12:40
[2024-07-14] MEDS: BUMETANIDE INJ 0.25 MG/ML VIAL 4 ML 1 MG IVP (15:09)
--- NOTE | 2024-07-14 16:26 | PC.NURSE ---
Pt has been non-compliant with bi-pap. keeps taking it off to call gf. Pt educated on importance of bi-pap pt continues to take it off repeatedly, this RN, several different staff members and RT have been to room multiple times to re-apply, pt continues to be non-compliant.
--- NOTE | 2024-07-14 16:37 | ESHP_ITS ---
Documentation for date of: 07/14/24 [facility] History of Present Illness History of present illness: This is a 54-year-old male with PMHx of HFpEF, CAD IDDM, CVA, bilateral endarterectomy, pulmonary embolism on ELIQUIS, HTN, CAROLYN, cirrhosis presenting to ED with shortness of breath. History is limited as patient is on BiPAP and has slightly altered mentation. He is coming from [facility] worsening shortness of breath. Patient was desatting to 87 on 3 L nasal cannula. Per nursing staff, patient has been refusing his DIURETICS and recently had substantial weight gain. Denies fevers, chills, headaches, loss of consciousness, confusion, chest pain, cough, abdominal pain, N/V/D/C, dark stool, or urinary symptoms. ED COURSE: Afebrile, 100% on BiPAP, BP 127/60, HR 79, RR 17. WBC 10.7, hemoglobin 6.0. Coag studies pending. CMP significant for AST 56, ALP 191, BNP 539. EKG showed sinus rhythm without acute ST changes, troponins were negative. CXR showed prominent CHF. ED gave one-time LASIX for volume overload and started blood transfusion. GI was consulted, patient n.p.o. for colonoscopy later. Patient was admitted for acute hypoxemic respiratory failure and acute GI bleed anemia. PMHx: HFpEF, CAD, IDDM, CVA, bilateral endarterectomy, PE on ELIQUIS, HTN, HLD, cirrhosis PSHx: Endarterectomy, stent placemen MEDS: Pending med rec ALLERGIES: KETOROLAC, ESCITALOPRAM SH: Occasional alcohol drinker, 20 pack year smoking history, current marijuana user. Exam Vital Signs Temp Pulse Resp BP Pulse Ox O2 Del Method FiO2 97.4 F 83 13 135/98 H 98 BiPAP 45 07/14/24 14:35 07/14/24 16:17 07/14/24 16:17 07/14/24 16:17 07/14/24 16:17 07/14/24 16:17 07/14/24 14:35 Narrative Exam GENERAL * Obese, in mild distress 2/2 tachypnea, on BiPAP, noncompliant with BiPAP. HEENT * NCAT.?KULDIP. Oral mucosa is moist. Patent Nares NECK * Supple, nontender, no thyromegaly, no meningismus, no JVD, no step offs CHEST * RRR, no m/g/r * Difficult auscultation 2/2 body habitus. * Obvious bibasilar crackles, no wheezing * Atraumatic, nontender, no crepitus, symmetrical expansion. ABDOMEN * Soft, flat, nontender. No guarding/rebound tenderness/masses. * Bowel sounds presents EXTREMITIES * Nontender, no cyanosis, no edema * 2+ bilateral lower extremity edema SKIN * Warm and dry, no jaundice/rashes. * Decubitus ulcer NEUROMUSCULAR * No lumbar or midline, no CVA, no paraspinal muscle spasm or tenderness. * Moves all 4 extremities well, with full ROM and good CSM. * TRAN x4, CN II-XII grossly intact. * No focal neurologic deficits. PSYCHIATRY * Normal mood and affect, cooperative, no SI or HI or hallucinations. Results: Labs 07/14/24 12:10 07/14/24 12:10 Labs: Short CBC 07/14/24 Range/Units 12:10 WBC 10.7 H (3.8-10.6) Thou/mm3 Hgb 6.0 L* (13.5-16.0) g/dL Hct 20.0 L* (41.0-53.0) % Plt Count 234 D (140-440) Thou/mm3 BMP 07/14/24 12:10 Sodium 139 Potassium 4.8 Chloride 103 Carbon Dioxide 24.5 BUN 64 H Creatinine 1.2 Glucose 105 Calcium 8.9 Cardiac Enzymes 07/14/24 Range/Units 12:10 Troponin I < 0.020 (0.0-0.045) ng/mL Liver Function 07/14/24 Range/Units 12:10 Total Bilirubin < 0.2 L (0.3-1.2) mg/dL AST 56 H (0-34) U/L ALT 37 (10-49) U/L Alkaline Phosphatase 191 H (46-116) U/L Albumin 3.7 (3.5-5.0) gm/dL Quality Measures Quality Measures none Medications Home Medications and Allergies Home Medications ?Medication ?Instructions ?Recorded ?Confirmed ?Type hydrocodone 10 mg-acetaminophen 1 tab PO Q4H PRN Pain, Moderate 10/22/23 06/25/24 History 325 mg tablet metoprolol succinate 100 mg 100 mg PO DAILY 10/22/23 06/25/24 History tablet,extended release 24 hr pregabalin 150 mg capsule 150 mg PO TID 10/22/23 06/25/24 History morphine 15 mg tablet,extended 15 mg PO QDAY PRN Pain, Severe 01/14/24 06/25/24 History release apixaban 5 mg tablet 5 mg PO BID 06/25/24 06/25/24 History ascorbic acid (vitamin C) 500 mg 500 mg PO BID 06/25/24 06/25/24 History tablet (Vitamin C) atorvastatin 80 mg tablet 80 mg PO QPM 06/25/24 06/25/24 History budesonide-formoterol HFA 160 2 puff inhalation BID 06/25/24 06/25/24 History mcg-4.5 mcg/actuation aerosol inhaler cyclobenzaprine 5 mg tablet 5 mg PO BID 06/25/24 06/25/24 History doxycycline hyclate 100 mg tablet 100 mg PO BID 06/25/24 06/25/24 History vitamin B complex-vitamin C-folic 1 tab PO QDAY 06/25/24 06/25/24 History acid 0.8 mg tablet (Sapphire-Holly) Allergies Allergy/AdvReac Type Severity Reaction Status Date / Time ketorolac Allergy Severe TONGUE Verified 07/26/23 22:55 SWELLS UP escitalopram Allergy Intermediate Rash Verified 06/28/24 10:52 Visit Medications Acetaminophen (Acetaminophen 325 Mg Tablet) 650 mg PO Q6H PRN PRN Reason: PAIN SCALE 1-3 (mild Stop: 08/13/24 16:28 Acetaminophen (Acetaminophen 325 Mg Tablet) 650 mg PO Q6H PRN PRN Reason: Fever >100 Stop: 08/13/24 16:28 Hydrocodone Bitart/Acetaminophen (Hydrocodone/Apap 10/325 Tab) 1 tab PO Q4HR PRN PRN Reason: PAIN SCALE 7-10 (Severe Stop: 07/19/24 16:28 Albuterol/Ipratropium (Albuterol/Ipratropium (Duoneb) Rt [place] 3 Ml Nebu) 3 ml INH Q4HRRT RINA Stop: 08/13/24 18:59 Atorvastatin Calcium (Atorvastatin Calcium 20 Mg Tablet) 80 mg PO HS RINA Stop: 08/13/24 20:59 Bumetanide (Bumetanide Inj 0.25 Mg/Ml Vial 4 Ml) 2 mg IVP BID [facility] Stop: 08/13/24 20:59 Dextrose (Dextrose 50%-Water Inj 50 Ml Syringe) 25 ml IV Q15MIN PRN PRN Reason: BG 50-70 responsive npo pt Stop: 08/13/24 16:30 Dextrose (Dextrose 50%-Water Inj 50 Ml Syringe) 50 ml IV Q15MIN PRN PRN Reason: BG <50 OR BG <70 & pt unresponsive Stop: 08/13/24 16:30 Glucagon (Glucagon Inj 1 Mg Vial) 1 mg IM Q15MIN PRN PRN Reason: BG <70, and no IV access Insulin Human Lispro (Insulin Lispro (Admelog) 1 Unit/0.01 Ml Unit) 0 unit SC [facility]; Protocol Stop: 08/13/24 16:59 Losartan Potassium (Losartan Potassium 25 Mg Tablet) 50 mg PO QDAY [facility] Stop: 08/14/24 08:59 Ondansetron HCl (Ondansetron Inj 2 Mg/Ml Inj 2 Ml) 4 mg IV Q6H PRN; Protocol PRN Reason: NAUSEA OR VOMITING Stop: 08/13/24 16:28 Oxycodone/Acetaminophen (Oxycodone/Apap 5/325 Tablet) 1 tab PO Q6H PRN PRN Reason: PAIN SCALE 4-6 (Moderate Stop: 07/19/24 16:28 Pantoprazole Sodium (Pantoprazole Inj 40 Mg Vial) 40 mg IVP QDAY [facility] Stop: 08/14/24 08:59 Sodium Chloride (Sodium Chloride Rt Radha 0.9% 3 Ml Nebu) 3 ml INH PRN PRN PRN Reason: SOLN Stop: 08/13/24 12:00 Last Admin: 07/14/24 12:11 Dose: 3 ml Discontinued Medications Acetaminophen (Acetaminophen 325 Mg Tablet) 650 mg PO X1 ONE Stop: 07/14/24 13:17 Last Admin: 07/14/24 14:24 Dose: 650 mg Albuterol (Albuterol Rt 2.5 Mg/0.5 Ml Nebu) 10 mg INH X1 ONE Stop: 07/14/24 12:02 Last Admin: 07/14/24 12:11 Dose: 10 mg Bumetanide (Bumetanide Inj 0.25 Mg/Ml Vial 4 Ml) 1 mg IVP X1 ONE Stop: 07/14/24 14:36 Last Admin: 07/14/24 15:09 Dose: 1 mg Furosemide (Furosemide Inj 10 Mg/Ml 4ml Vial) 40 mg IVP X1 ONE Stop: 07/14/24 12:02 Last Admin: 07/14/24 12:12 Dose: 40 mg Insulin Glargine (Insulin Glargine (Lantus) 5 Unit/0.05 Ml (Per 5 Units)) 40 unit SC QDAY RINA Stop: 08/13/24 16:44 Ipratropium [place] (Ipratropium Rt 0.5 Mg/ 2.5 Ml Nebu) 1 mg INH X1 ONE Stop: 07/14/24 12:02 Last Admin: 07/14/24 12:11 Dose: 1 mg Methylprednisolone Sodium Succinate (Methylprednisolone Sod Succ 62.5 Mg/Ml 2ml Vial) 125 mg IVP X1 ONE Stop: 07/14/24 12:02 Last Admin: 07/14/24 12:12 Dose: 125 mg Pantoprazole Sodium (Pantoprazole Inj 40 Mg Vial) 40 mg IV BID RINA Stop: 08/13/24 14:14 Last Admin: 07/14/24 14:24 Dose: 40 mg Assessment & Plan Plan In summary: 54-year-old male with PMHx of HFpEF, CAD IDDM, CVA, bilateral endarterectomy, pulmonary embolism on ELIQUIS, HTN, CAROLYN, cirrhosis, admitted for AHRF and acute blood loss anemia. Acute encephalopathy Acute hypoxemic, hypercapnic respiratory failure CHF exacerbation HFpEF EF 55-60% 04/2024 CAROLYN and OHS Mildly confused on exam although AOA x 4. Encephalopathy in settings of hypercapnia. ABG showed pH 7.29, pCO2 56, pO2 152, bicarb 27. BNP elevated on admission. Patient states he is not taking his LASIX. Crackles on exam, bilateral lower extremity edema present, CXR showed severe CHF pattern. CAROLYN and OHS given body habitus. Per ED doctor, patient noncompliant with home CPAP. TSH 0.61 (06/2024). TG 169, cholesterol 211, LDL 145, HDL 32 (04/2024) ? Continue BUMEX 2 mg BID ? Continue DuoNebs q.6h. PRN ? Continue BiPAP ? Continue CPAP HS ? Holding home METOPROLOL in setting of CHF exacerbation ? Strict FREIDA's ? Salt restriction ? Pending limited echo to evaluate EF Acute blood loss anemia Admitted last week for hemoglobin of 6.5. EGD at the time showed esophagitis, nonerosive gastritis, no signs of active bleeding. Unclear if patient is experiencing dark stools. Will reevaluate once encephalopathy improves. Returns with hemoglobin of 6.0. ED started transfusions. GI recommended colonoscopy. ? Transfuse if hemoglobin <8 ? Continue CEFTRIAXONE prophylaxis ? Continue GOLYTELY ? Pending colonoscopy with GI HTN, HLD Pending med recs. Per last admission patient was on LOSARTAN 50 mg. Lipid panel from 04/2024 showed TG 169, cholesterol 211, LDL 145, HDL 32. Currently normotensive. ? Continue LOSARTAN 50 mg daily ? Continue home ATORVASTATIN 80 mg daily Uncontrolled IDDM type II A1c 13.6 from 04/2024. GLUCOSE 105 on admission. From last visit, patient has a history of INSULIN noncompliance, refusing INSULIN at times, not adherent with diet. ? Continue INSULIN GLARGINE 20 units BID (home dose 40 HS) ? Continue sliding scale ? Accu-Cheks Mild transaminitis Liver cirrhosis History of liver cirrhosis. Mildly elevated AST is on admission. Congestive hepatopathy versus ischemic hepatopathy Anticipate improvement with current management. ? Daily CMP Pressure ulcer of coccyx and sacrum Will reevaluate stage once patient can tolerate physical exam. ? Wound care History of PE ? Holding home ELIQUIS 5 mg BID in setting of blood loss Active tobacco smoker ? NICOTINE patches daily Health maintenance Diet: NPO GI prophylaxis: PROTONIX DVT prophylaxis: SCDs Antibiotics: CEFTRIAXONE CODE STATUS: Full code Disposition: Colonoscopy, improved oxygenation. Patient case was discussed with attending, Teofilo Sanchez MD and senior residents Dr. Dimas and Dr. Moses. Mayelin Lockhart DO PGYI Attending Provider Attestation/Addendum Face to face evaluation was performed by me. I have personally seen and examined the patient. I discussed the assessment and plan with the entire medicine team. I reviewed available medical records, imaging studies, laboratory results. I agree with the above subjective data, objective findings, assessment and plan except as corrected by me or noted below Acute encephalopathy , metabolic from hypoxia and hypercaonia Acute hypoxemic, hypercapnic respiratory failure CHF exacerbation HFpEF EF 55-60% 04/2024 CAROLYN and OHS Bipap, obtainABG IV diuresis, consider limited Echo to evaluate LVEF again Breathing treatments monitor mental status closely might need to go to ICU if not improving
[2024-07-14 16:41] LABS: Base Excess 1 (-3-3); HCO3 27 mEq/L (20-26); Inspired Oxygen, FIO2 45 %; O2 Saturation 99 % (91-98); PCO2 56 mmHg (32.0-48.0); PO2 152 mmHg (83-108); pH, Arterial 7.29 (7.35-7.45)
[2024-07-14 16:44] LABS: Allen Test Performed/OK; Puncture Site Right Radial
[2024-07-14 17:14] LABS: INR 1.1 (0.9-1.3); Partial Thromboplastin Time 35.6 Seconds (22.0-36.0); Prothrombin Time 11.8 Seconds (9.0-12.2)
--- NOTE | 2024-07-14 17:30 | PC.NURSE ---
Pt not consenting to blood transfusion at this time, pt sleeping. Pt gcs 15.
--- NOTE | 2024-07-14 18:38 | PC.NURSE ---
1830 pt transported up to floor by this RN and RT, pt was connected to tele, and bi-pap for transport. VS remained stable during transport. Staff at bedside for transfer of care.
[2024-07-14] MEDS: HALOPERIDOL LACT INJ 5 MG/ML VIAL IM (18:58)
--- NOTE | 2024-07-14 19:07 | PD.RESEVENT ---
Documentation for date of: 07/14/24 Event Note Event Note: HYDRATE THICKENER OPERATOR was called around 5:45 PM this evening for patient being agitated and pulling out his IV lines. His vitals were basically stable, saturating 94 to 96% on oxy mask. He was recently been brought from the ED to the third floor, and his BiPAP was recently discontinued as he was more awake and alert, and requested to remove the BiPAP. EKG was ordered, and his QTc was WNL, 5 mg IM haloperidol was given, and his upper bilateral extremity were restrained. He was started back on BiPAP. Wright catheter was made sure that it is draining urine. He was transferred to telemetry unit from [facility] telemetry unit. The patient's management plan was discussed with my attending physician MD Scott Sexton MD, PGY2
--- NOTE | 2024-07-14 19:41 | PC.NURSE ---
Patient arrived in med surg unit from ED via gurney on BiPaP machine round 18:36 PM. Report received from ER nurse Jayson. While the RT's are fixing his BiPap machine, patient suddenly pulled his IV. He started to be agitated and tried to pull his mask and dacosta catheter out. PIPE BENDER was called in. Patient was restrained and haldol 5mg was administered. BP was 199/103, HR 82 and on 99% on biPap. Patient was transferred to ICU via gurney. Report given to Liliana ICU nurse.
[2024-07-14] MEDS: cefTRIAXone/D5w 1gm IV premix 50 ML IV (20:01)
[2024-07-14] MEDS: BUMETANIDE INJ 0.25 MG/ML VIAL 4 ML 2 MG IVP (20:02)
[2024-07-14] MEDS: MORPHINE SULF INJ 10 MG/ML VIAL 2 MG IVP ×2 (20:02→23:54)
--- NOTE | 2024-07-14 21:08 | PC.RT ---
pt transfered with bipap on 05/26 RR16 fio2 45% with nurse and RT, no complications pt spo2 100% once in room and pt settle pt took off bipap mask refused to put it back on refer to TOOL MAKER BENCH notes.
--- NOTE | 2024-07-14 21:22 | ESCONSULT_ITS ---
HPI Data of Consult Requesting Physician: Teofilo Sanchez MD Primary Care Provider: Sue Cevallos NP Consult Narrative Reason for consult: H/H 6.0 /20.0 History of present illness: 54 years old male transferred from [facility] via ambulance for shortness of breath requiring BiPAP He was found to have acute hypoxic respiratory failure requiring BiPAP support and he does have a history of CVA requiring bilateral endarterectomy IDDM obstructive sleep apnea congestive heart failure treatment for left elbow abscess and groin abscess He was found to have a hemoglobin hematocrit of 6.0 and 20. 0 on admission requiring blood transfusion I did evaluate him on his previous admission and on 06/25/2024 patient underwent upper endoscopy which showed small duodenal ulcer in the junction of duodenal bulb and descending duodenum gastritis I felt patient at that time did not require a fibrotic colonoscopy cc:: cc: Teofilo Sanchez MD Review of Systems Review of Systems Systems Reviewed: All systems reviewed, normal except as documented Past Medical History Surgical History OTHER SURGICAL HX: As in the history of present illness Meds Home Medications and Allergies Home Medications ?Medication ?Instructions ?Recorded ?Confirmed ?Type hydrocodone 10 mg-acetaminophen 1 tab PO Q4H PRN Pain, Moderate 10/22/23 06/25/24 History 325 mg tablet metoprolol succinate 100 mg 100 mg PO DAILY 10/22/23 06/25/24 History tablet,extended release 24 hr pregabalin 150 mg capsule 150 mg PO TID 10/22/23 06/25/24 History morphine 15 mg tablet,extended 15 mg PO QDAY PRN Pain, Severe 01/14/24 06/25/24 History release apixaban 5 mg tablet 5 mg PO BID 06/25/24 06/25/24 History ascorbic acid (vitamin C) 500 mg 500 mg PO BID 06/25/24 06/25/24 History tablet (Vitamin C) atorvastatin 80 mg tablet 80 mg PO QPM 06/25/24 06/25/24 History budesonide-formoterol HFA 160 2 puff inhalation BID 06/25/24 06/25/24 History mcg-4.5 mcg/actuation aerosol inhaler cyclobenzaprine 5 mg tablet 5 mg PO BID 06/25/24 06/25/24 History doxycycline hyclate 100 mg tablet 100 mg PO BID 06/25/24 06/25/24 History vitamin B complex-vitamin C-folic 1 tab PO QDAY 06/25/24 06/25/24 History acid 0.8 mg tablet (Sapphire-Holly) Allergies Allergy/AdvReac Type Severity Reaction Status Date / Time ketorolac Allergy Severe TONGUE Verified 07/26/23 22:55 SWELLS UP escitalopram Allergy Intermediate Rash Verified 06/28/24 10:52 Exam Vital Signs Temp Pulse Resp BP Pulse Ox O2 Del Method FiO2 97.4 F 79 20 111/84 100 BiPAP 45 07/14/24 14:35 07/14/24 20:02 07/14/24 19:23 07/14/24 20:02 07/14/24 19:23 07/14/24 16:17 07/14/24 19:23 Constitutional Comments: Chronically ill-appearing Routine Respiratory Exam Comments: Scattered rhonchi Routine Abdominal Exam Comments: Soft nontender Results Labs 07/15/24 03:15 07/15/24 03:15 Labs: Short CBC 07/14/24 Range/Units 12:10 WBC 10.7 H (3.8-10.6) Thou/mm3 Hgb 6.0 L* (13.5-16.0) g/dL Hct 20.0 L* (41.0-53.0) % Plt Count 234 D (140-440) Thou/mm3 BMP 07/14/24 12:10 Sodium 139 Potassium 4.8 Chloride 103 Carbon Dioxide 24.5 BUN 64 H Creatinine 1.2 Glucose 105 Calcium 8.9 Cardiac Enzymes 07/14/24 Range/Units 12:10 Troponin I < 0.020 (0.0-0.045) ng/mL Liver Function 07/14/24 Range/Units 12:10 Total Bilirubin < 0.2 L (0.3-1.2) mg/dL AST 56 H (0-34) U/L ALT 37 (10-49) U/L Alkaline Phosphatase 191 H (46-116) U/L Albumin 3.7 (3.5-5.0) gm/dL ABG Interpretation ABG results: 07/14/24 16:37 ABG pH 7.29 L ABG pCO2 56 H ABG pO2 152 H ABG HCO3 27 H ABG O2 Saturation 99 H ABG Base Excess 1 Assessment and Plan Additional Assessment & Plan Additional Plan: # Anemia blood loss requiring blood transfusion Once patient's respiratory status stabilizes GoLytely prep and schedule colonoscopy Agree with the blood transfusion Other medical problems include # Acute hypoxic respiratory failure requiring BiPAP # CAROLYN # History congestive heart failure # CVA requiring bilateral endarterectomy IDDM # Pulmonary embolism on Eliquis Thank you very much for the opportunity to participate in the care of this patient
[2024-07-14 21:41] LABS: Hemoglobin 6.6 g/dL (13.5-16.0)
[2024-07-14] MEDS: ALBUTEROL/IPRATROPIUM (Duoneb) RT SOL 3 ML NEBU INH (22:37)
[2024-07-15] VITALS (59 sets, daily range): BP systolic 116–226; BP diastolic 55–116; PULSE 68–90; RESP 2–98; TEMP 36.1–36.7; O2SAT 13–100
[2024-07-15] MEDS: HALOPERIDOL LACT INJ 5 MG/ML VIAL IM ×2 (00:40→01:05)
[2024-07-15 00:51] LABS: Base Excess 1 (-3-3); HCO3 28 mEq/L (20-26); O2 Saturation 81 % (91-98); PCO2 54 mmHg (32.0-48.0); pH, Arterial 7.31 (7.35-7.45)
[2024-07-15 01:03] LABS: Allen Test Performed/OK; Puncture Site Left Radial
[2024-07-15 01:05] LABS: Inspired Oxygen, FIO2 40 %; PO2 50 mmHg (83-108)
--- NOTE | 2024-07-15 01:13 | PD.RESCONSUL ---
HPI Data of Consult Consult date: 07/15/24 Requesting Physician: Teofilo Sanchez MD Admitting Provider: Teofilo Sanchez MD Attending Provider: Teofilo Sanchez MD Primary Care Provider: Sue Cevallos NP Consult Narrative Reason for consult: Agitiation, hypercapnic respiratory failure History of present illness: Mr. Mekhi Fisher is a 54-year-old gentleman with past medical history of HFpEF(EF 55-60% 04/24/2024), coronary artery disease s/p stent 5 years ago, IDDM, CVA, carotid artery stenosis s/p bilateral endarterectomy 2018, pulmonary embolism on ELIQUIS, hypertension, obstructive sleep apnea, cirrhosis, history of vertebral hemangioma s/p radiation therapy who presented to the ED on 07/14/2024 with a chief complaint of shortness of breath. Due to the patient being agitated at the time of initial evaluation, history was obtained through chart review. Apparently the patient presented to the ED via EMS from [facility] to to acute onset SOB with oxygen desaturation to 87% whilst on 3L of supplemental oxygen. Per nursing staff at the facility, the patient had been refusing his lasix and had a significant amount weight gain in recent days. Patient's PCP recommended the patient be taken to the ED due to concern for volume overload. En route to the the ED, patient was administered 3 sublingual Nitroglycerin tablets and 2 Nitro paste was applied to his chest. ED COURSE: Initial Vitals: Afebrile, 100% on BiPAP, BP 127/60, HR 79, RR 17. WBC 10.7, hemoglobin 6.0./hematocrit Coag panel WNL. CMP significant for AST 56, ALP 191, BNP 539. EKG showed sinus rhythm without acute ST changes, troponins were negative. CXR showed enlargement of the cardiac contour with significant B/L vascular congestion and perihilar edema consistent with CHF. The patient was admistered breathing treatments, stress dose steroids, and LASIX 40 mg x 1 for volume overload and started on blood transfusion. GI servieces were consulted, patient n.p.o. for colonoscopy later. Patient was admitted for acute hypoxemic respiratory failure 2/2 CHF exacerbation and acute blood loss anemia. Of note, a non-contrast head CT was not performed. An ABG was performed which showed 7.29/pCO2 56/HCO3 24 indicating a respiratory acidosis. Patient was started on BiPAP and subsequently admitted. 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 Patient was administer Haldol 5 mg x 1 to reduce his agitation. The patient's agitation initially improved, however a few hours later he again became agitated requiring 2 additional 5 mg dosages after which he was still agitated. Due to still being agitated and minimal improvement of his blood gas, ICU was consulted for Precedex drip to help with BiPAP compliance. cc:: cc: Teofilo Sanchez MD Review of Systems Review of Systems ROS Unobtainable: unobtainable due to mental status Past Medical History Past Medical History Comments PMH COMMENT: PMHx: HFpEF, CAD, IDDM, CVA, bilateral endarterectomy, PE on ELIQUIS, HTN, HLD, cirrhosis PSHx: Endarterectomy, stent placement MEDS: Pending med rec ALLERGIES: KETOROLAC (toungue swelling), ESCITALOPRAM(rash) SH: Occasional alcohol drinker, 20 pack year smoking history, current marijuana user. Exam Vital Signs Temp Pulse Resp BP Pulse Ox O2 Del Method FiO2 97.0 F 83 17 153/93 H 98 BiPAP 45 07/15/24 00:02 07/15/24 00:20 07/15/24 00:20 07/15/24 00:15 07/15/24 00:20 07/14/24 16:17 07/14/24 19:23 Narrative Exam General: morbidly obese, disoriented, speaking nonsensical sentences, HEENT: NC/AT, PERRL, EOMI, conjunctival pallor, wearing BiPAP mask Lungs: Bibasilar crackles with scattered rhonchi CVS: S1S2 Regular rate and rhythm, No murmurs, rubs or gallops ABD: Soft, non-tenderness to palpation, non-distended : Wright in place with clear output EXT: B/L upper extremities in restraints, 2+ B/L LE pitting edema Skin: Decubitus ulcer in mid-lumbar region overlying the coccyx Neuro: AAOx1, oriented to self only, confused, not following commands Lines: N/A PIV: 18 guage left wrist, 20 guage right wrist Wright (07/14/2024) Drips: Precedex drip Results Labs 07/16/24 06:00 07/16/24 06:00 Labs: Short CBC 07/14/24 07/14/24 Range/Units 12:10 20:42 WBC 10.7 H (3.8-10.6) Thou/mm3 Hgb 6.0 L* 6.6 L* (13.5-16.0) g/dL Hct 20.0 L* 22.0 L (41.0-53.0) % Plt Count 234 D (140-440) Thou/mm3 BMP 07/14/24 12:10 Sodium 139 Potassium 4.8 Chloride 103 Carbon Dioxide 24.5 BUN 64 H Creatinine 1.2 Glucose 105 Calcium 8.9 Cardiac Enzymes 07/14/24 Range/Units 12:10 Troponin I < 0.020 (0.0-0.045) ng/mL Liver Function 07/14/24 Range/Units 12:10 Total Bilirubin < 0.2 L (0.3-1.2) mg/dL AST 56 H (0-34) U/L ALT 37 (10-49) U/L Alkaline Phosphatase 191 H (46-116) U/L Albumin 3.7 (3.5-5.0) gm/dL ABG Interpretation ABG results: 07/14/24 07/15/24 16:37 00:44 ABG pH 7.29 L 7.31 L ABG pCO2 56 H 54 H ABG pO2 152 H 50 L* D ABG HCO3 27 H 28 H ABG O2 Saturation 99 H 81 L ABG Base Excess 1 1 Quality Measures Quality Measures none Medications Home Medications and Allergies Home Medications ?Medication ?Instructions ?Recorded ?Confirmed ?Type hydrocodone 10 mg-acetaminophen 1 tab PO Q4H PRN Pain, Moderate 10/22/23 07/16/24 History 325 mg tablet metoprolol succinate 100 mg 100 mg PO DAILY 10/22/23 07/16/24 History tablet,extended release 24 hr pregabalin 150 mg capsule 150 mg PO TID 10/22/23 07/16/24 History morphine 15 mg tablet,extended 15 mg PO QDAY PRN Pain, Severe 01/14/24 07/16/24 History release apixaban 5 mg tablet 5 mg PO BID 06/25/24 07/16/24 History ascorbic acid (vitamin C) 500 mg 500 mg PO BID 06/25/24 07/16/24 History tablet (Vitamin C) atorvastatin 80 mg tablet 80 mg PO QPM 06/25/24 07/16/24 History budesonide-formoterol HFA 160 2 puff inhalation BID 06/25/24 07/16/24 History mcg-4.5 mcg/actuation aerosol inhaler vitamin B complex-vitamin C-folic 1 tab PO QDAY 06/25/24 07/16/24 History acid 0.8 mg tablet ([place]) furosemide 40 mg tablet (Lasix) 40 mg PO QDAY 07/16/24 07/16/24 History insulin lispro 100 unit/mL See Protocol subcut AC 07/16/24 07/16/24 History subcutaneous pen (Humalog KwikPen (U-100) Insulin) loperamide 2 mg tablet 2 mg PO Q6H PRN Diarrhea 07/16/24 07/16/24 History Allergies Allergy/AdvReac Type Severity Reaction Status Date / Time ketorolac Allergy Severe TONGUE Verified 07/26/23 22:55 SWELLS UP escitalopram Allergy Intermediate Rash Verified 06/28/24 10:52 Visit Medications Acetaminophen (Acetaminophen 325 Mg Tablet) 650 mg PO Q6H PRN PRN Reason: PAIN SCALE 1-3 (mild Stop: 08/13/24 16:28 Acetaminophen (Acetaminophen 325 Mg Tablet) 650 mg PO Q6H PRN PRN Reason: Fever >100 Stop: 08/13/24 16:28 Hydrocodone Bitart/Acetaminophen (Hydrocodone/Apap 10/325 Tab) 1 tab PO Q4HR PRN PRN Reason: PAIN SCALE 7-10 (Severe Stop: 07/19/24 16:28 Albuterol/Ipratropium (Albuterol/Ipratropium (Duoneb) Rt Radha 3 Ml Nebu) 3 ml INH Q4HRRT RINA Stop: 08/13/24 18:59 Last Admin: 07/14/24 18:36 Dose: Not Given Atorvastatin Calcium (Atorvastatin Calcium 20 Mg Tablet) 80 mg PO HS RINA Stop: 08/13/24 20:59 Last Admin: 07/14/24 19:59 Dose: Not Given Bumetanide (Bumetanide Inj 0.25 Mg/Ml Vial 4 Ml) 2 mg IVP BID [facility] Stop: 08/13/24 20:59 Last Admin: 07/14/24 20:02 Dose: 2 mg Dextrose (Dextrose 50%-Water Inj 50 Ml Syringe) 25 ml IV Q15MIN PRN PRN Reason: BG 50-70 responsive npo pt Stop: 08/13/24 16:30 Dextrose (Dextrose 50%-Water Inj 50 Ml Syringe) 50 ml IV Q15MIN PRN PRN Reason: BG <50 OR BG <70 & pt unresponsive Stop: 08/13/24 16:30 Glucagon (Glucagon Inj 1 Mg Vial) 1 mg IM Q15MIN PRN PRN Reason: BG <70, and no IV access Ceftriaxone Sodium/Dextrose (Rocephin/D5w 1gm Iv Premix) 50 mls @ 100 mls/hr IV QDAY [facility] Stop: 07/21/24 17:06 Last Admin: 07/14/24 20:01 Dose: 100 mls/hr Dexmedetomidine/Sodium Chloride (Precedex Ivpb) 400 mcg in 100 mls @ 9.072 mls/hr IV .Q11H2M PRN; Protocol PRN Reason: Per PROTOCOL Stop: 08/14/24 01:10 Insulin Glargine (Insulin Glargine (Lantus) 5 Unit/0.05 Ml (Per 5 Units)) 20 unit SC BID [facility] Stop: 08/13/24 20:59 Last Admin: 07/14/24 19:59 Dose: Not Given Insulin Human Lispro (Insulin Lispro (Admelog) 1 Unit/0.01 Ml Unit) 0 unit SC ACHS [facility]; Protocol Stop: 08/13/24 16:59 Last Admin: 07/14/24 19:59 Dose: Not Given Losartan Potassium (Losartan Potassium 25 Mg Tablet) 50 mg PO QDAY [facility] Stop: 08/14/24 08:59 Morphine Sulfate (Morphine Sulf Inj 10 Mg/Ml Vial) 2 mg IVP Q4HR PRN PRN Reason: BREAKTHROUGH PAIN 4-10 Stop: 07/19/24 19:52 Last Admin: 07/14/24 23:54 Dose: 2 mg Ondansetron HCl (Ondansetron Inj 2 Mg/Ml Inj 2 Ml) 4 mg IV Q6H PRN; Protocol PRN Reason: NAUSEA OR VOMITING Stop: 08/13/24 16:28 Oxycodone/Acetaminophen (Oxycodone/Apap 5/325 Tablet) 1 tab PO Q6H PRN PRN Reason: PAIN SCALE 4-6 (Moderate Stop: 07/19/24 16:28 Pantoprazole Sodium (Pantoprazole Inj 40 Mg Vial) 40 mg IVP QDAY RINA Stop: 08/14/24 08:59 Sodium Chloride (Sodium Chloride Rt Radha 0.9% 3 Ml Nebu) 3 ml INH PRN PRN PRN Reason: SOLN Stop: 08/13/24 12:00 Last Admin: 07/14/24 12:11 Dose: 3 ml Discontinued Medications Acetaminophen (Acetaminophen 325 Mg Tablet) 650 mg PO X1 ONE Stop: 07/14/24 13:17 Last Admin: 07/14/24 14:24 Dose: 650 mg Albuterol (Albuterol Rt 2.5 Mg/0.5 Ml Nebu) 10 mg INH X1 ONE Stop: 07/14/24 12:02 Last Admin: 07/14/24 12:11 Dose: 10 mg Bumetanide (Bumetanide Inj 0.25 Mg/Ml Vial 4 Ml) 1 mg IVP X1 ONE Stop: 07/14/24 14:36 Last Admin: 07/14/24 15:09 Dose: 1 mg Furosemide (Furosemide Inj 10 Mg/Ml 4ml Vial) 40 mg IVP X1 ONE Stop: 07/14/24 12:02 Last Admin: 07/14/24 12:12 Dose: 40 mg Haloperidol Lactate (Haloperidol Lact Inj 5 Mg/Ml Vial) 5 mg IM X1 ONE Stop: 07/14/24 18:43 Last Admin: 07/14/24 18:58 Dose: 5 mg Haloperidol Lactate (Haloperidol Lact Inj 5 Mg/Ml Vial) 5 mg IV X1 ONE Stop: 07/15/24 00:16 Last Admin: 07/15/24 00:55 Dose: Not Given Haloperidol Lactate (Haloperidol Lact Inj 5 Mg/Ml Vial) 5 mg IM X1 ONE Stop: 07/15/24 00:16 Last Admin: 07/15/24 00:40 Dose: 5 mg Haloperidol Lactate (Haloperidol Lact Inj 5 Mg/Ml Vial) 5 mg IV X1 ONE Stop: 07/15/24 00:57 Last Admin: 07/15/24 01:11 Dose: Not Given Haloperidol Lactate (Haloperidol Lact Inj 5 Mg/Ml Vial) 5 mg IM X1 ONE Stop: 07/15/24 00:57 Last Admin: 07/15/24 01:05 Dose: 5 mg Insulin Glargine (Insulin Glargine (Lantus) 5 Unit/0.05 Ml (Per 5 Units)) 40 unit SC QDAY RINA Stop: 08/13/24 16:44 Ipratropium [place] (Ipratropium Rt 0.5 Mg/ 2.5 Ml Nebu) 1 mg INH X1 ONE Stop: 07/14/24 12:02 Last Admin: 07/14/24 12:11 Dose: 1 mg Methylprednisolone Sodium Succinate (Methylprednisolone Sod Succ 62.5 Mg/Ml 2ml Vial) 125 mg IVP X1 ONE Stop: 07/14/24 12:02 Last Admin: 07/14/24 12:12 Dose: 125 mg Pantoprazole Sodium (Pantoprazole Inj 40 Mg Vial) 40 mg IV BID RINA Stop: 08/13/24 14:14 Last Admin: 07/14/24 14:24 Dose: 40 mg Assessment & Plan Plan Assessment & Plan Neurological #Acute encephalopathy #Agitation Patient presents with moderate AMS. Patient was found to have a mildly elevated CO2 on abg in the setting of respiratory acidosis most likely from obesity hypoventilation syndrome and/or obstructive sleep apnea. Patient also has known history of cirrhosis which may cause elevate ammonia levels. Patient also has elevated BUN, although this is most likely to be caused by an acute GI bleed, but may be a contributing factor to his respiratory acidosis. DDX includes but is not limited to: Hypercapnic encephalopathy, hyperuremia, hyperammonemia. The most likely etiology of the patient's AMS at this time appears to be hypercapnic encephalopathy. Work-up: - Metabolic: Follow-up blood gas, trend glucose, CMP, calcium, TSH, ammonia, vitamin B12/thiamine levels - Oxygen: Keep O2 saturation greater than 92% - Infectious: Does not appear to be infectious in etiology at this time as patient has been afebrile with no leuckocytosis. Will continue to trend white count. - Stroke/seizure/structural: Follow-up CT head. - Toxic: Follow-up U tox - Other: Assess for urinary retention, constipation - Non-contrast Head CT: Pending - Ammonia: Pending Management: - Sedation: Precedex gtt, RASS goal 0 to allow for compliance with BiPAP Cardiology #CHF exacerbation #HFpEF EF 55-60% 04/2024 Patient with known history of Heart failure with reduced ejection fraction. Per nursing facilty, patient has been non-compliant with diuresis leading to fluid overload and Previous Echo report 04/24/2024: Normal LV size and function. Mild LVH. Grade I diastolic dsyfunction. Estimated EF 55-60%. Mild RV dilation. Normal RV function. Mild bi-atrial dilation. Trace MR, TR. Mild AV sclerosis without stenosis. There is a small circumferential pericardial effusion. No evidence of cardiac tamponade. BNP on admission: 539 Patient states he is not taking his LASIX. Physical exam notable for B/L 2+ lower extremity edema after diuresis, Bibasilar crackles CXR: enlargement of the cardiac contour with significant B/L vascular congestion and perihilar edema consistent with CHF. Workup : ? Repeat Echo: Pending Management: ? Continue BUMEX 2 mg BID ? Continue DuoNebs q6h PRN ? Continue BiPAP ? Holding home METOPROLOL in setting of CHF exacerbation ? Strict IN & Out's ? Salt restriction #Coronary arterial disease s/p stent Patient with known history of coronary artery disease s/p stenting approximately 5 years. Prior records in 10/2023 show that cardiology services recommended the patient be discharged with aspirin and statin. However at discharge during that hospitalization, patient was not discharged with Aspirin. Review of recent medications also show that patient has not been on aspirin. -Will defer starting aspirin at this time due to active GI bleeding. -Will consider consulting cardiology for further recommendations. Pulmonary #Obstuctive sleep apnea #Obesity hypoventilation syndrome #? COPD #Respiratory Acidosis #Carbon Dioxide narcosis #Hypercapnic Respiratory failure Patient with history of CAROLYN and OHS. Patient reportedly also has a longstanding smoking history. Patient was found to have elevated CO2 levels with Initial ABG showing 7.29/pCO2 56/HCO3 24. Most likely 2/2 to CAROLYN vs Obesity hypoventilation vs CHF exacerbation. Patient was started on BiPAP to allow for CO2 washout, however patient became agitated and was unable to comply with wearing BiPAP mask, despite receiving a total of Haldol 5 mg x 3 doses. Decision was made to upgrade the patient to ICU for sedation with precedex to allow for BiPAP compliance. Management: - Sedation: Precedex gtt, RASS goal 0 to allow for compliance with BiPAP - F/u ABG #History of Pulmonary Embolism Know history of PE with current use of Eliquis for anticoagulation. -Will hold Eliquis at this time due to acute blood loss anemia in setting of ? GI bleed Gastrointestinal # ? Upper/Lower GI bleed Hg/HCT: 6.0/20.0% Isolated elevated BUN consistent with upper GI bleed On recent admission, 06/25/2024 patient underwent upper endoscopy which showed small duodenal ulcer in the junction of duodenal bulb and descending duodenum gastritis. Differential diagnoses include but are not limited to: peptic ulcer disease (H.Pylori vs NSAID), erosive gastritis, variceal bleeding, Amber Bateman tear, AVM, malignancy. - Patient started on IV Protonix 40 mg BID - Hold NSAIDs, steroids, ASA - GI consulted, recommendations as follows: Once patient's respiratory status stabilizes, GoLytely prep and schedule colonoscopy. Agree with the blood transfusion. #Mild transaminitis #Liver cirrhosis History of liver cirrhosis. Mildly elevated AST is on admission. Congestive hepatopathy versus ischemic hepatopathy -Continue to monitor with daily CMP -Ceftiraxone 1 gram QDAY as PXP in setting of ? GI bleed and cirrhosis Renal/Genitourinary No active issues as creatinine appears to be at baseline. However, patient is being aggressively diuresed. -Continue to monitor Bun and Creatinine with daily CMP Endocrine Uncontrolled IDDM type II A1c 13.6 from 04/2024. GLUCOSE 105 on admission. From last visit, patient has a history of INSULIN noncompliance, refusing INSULIN at times, not adherent with diet. ? Continue INSULIN GLARGINE 20 units BID (home dose 40 HS) - Hold patient's home Diabetes Medications - Patient started on Insulin Sliding scale - ACHS accucheks - NPO - Follow up QAM CMP glucose level TSH: Pending Hemetology #Acute blood loss anemia #Normocytic anemia Hg/HCT: 6.0/20.0%, MCV 86 Secondary to possible GI bleed as there is an isolated elevation of BUN indicating a upper GI source of bleeding, although recent EGD did not show any active bleeding. Patient received 2 units PRBC's -F/U post transfusion H/H -Continue to trend H/H with qam CBC -DVT prophylaxis: SCD's in setting of ? GI bleed Infectious Disease Does not appear to have any active infection at this time as patient has been afebrile and no leuckocytosis on CBC. -Antibiotic regimen: Ceftriaxone 1 gram qday(07/14/2024-) in setting of ? GI bleed and cirrhosis for PXP against bacterial translocation from the gut into the bloodstream. Skin #Sacral Decubitus Ulcer Patient noted to have an open wound at the gluteal fold above the coccyx. Appears to be a stage 2 ulcer. -Wound care referral. Fluids Electrolytes Nutrition: NPO as patient is on BiPAP Analgesia: None Sedation: Precedex GTT Thromboprophylaxis: SCD's in setting of ? GI bleed Head up position: N/A Ulcer prophylaxis: Pantoprazole 40 mg BID Glycemic control: INSULIN GLARGINE 20 units BID + ISS Spontaneous breathing trial: Bowel regimen: N/A Indwelling catheter: Wright (07/14/2024) CODE STATUS: FULL CODE Patient's case was discussed with supervising attending physician Dr. Deandre Baeza M.D. Internal Medicine PGY-3 Attending Provider Attestation/Addendum I have discussed and was present for the essential components of the history, physical examination, diagnosis, and treatment plan with the resident. I agree with the patient's care as documented by the resident and amended herein by me. Jah Wayne DO. Although this document has been carefully reviewed, there may still be some phonetic and other typographical errors. These errors are purely grammatical due to imperfections in the software program and should not be construed in any way to compromise the substance of the patient's medical care during this visit.
--- NOTE | 2024-07-15 01:13 | PD.RESEVENT ---
Documentation for date of: 07/15/24 Event Note Event Note: I received a call from the nurse taking care of the patient Mekhi Fisher because the patient was agitated given that the patient was given haloperidol and was put on restraints. On evaluation patient seems to be agitated and confused, his ABG results showed pH level of 7.31, CO2 54, O2 50, HCO3 of 280, O2 saturation of 81, we repeated another dose of haloperidol however patient continued to be agitated, dislodging the bipap mask, hence for that reason we decided to sedate the patient on Precedex and upgrade the patient to ICU on BiPAP. - Patient's plan and care discussed with my attending, Dr. Tone Martinez MD Internal Medicine PGY-2
--- NOTE | 2024-07-15 01:55 | PC.NURSE ---
Metal Reed Tuner received Report from Gregorio RN at 0150 with SBAR at bedside.
[2024-07-15] MEDS: DEXMEDETOMIDINE 200 MCG IVPB 200 MCG/50 ML BOTTLE 9.072 MCG IV (02:00)
--- NOTE | 2024-07-15 02:10 | XR_ITS ---
Examination: CT brain head without contrast. 2-D sagittal coronal reconstructions Date and time of exam:July 15, 2024 0255 hours Comparison May 10, 2024 INDICATIONS: Acute hypoxic respiratory failure with altered mental status today CTDI: vol (mGy):81.6 DLP: (mGycm):1623 Technique: Multiple CT axial sections of the brain have been obtained, 5 mm slice thickness. Contrast has not been administered. 2-D sagittal, coronal reconstructions have been obtained Low dose protocols were performed. One or more of the following dose reduction techniques were used; automated exposure control, adjustment of the mA and/or KV according to patient size, use of iterative reconstruction technique. Findings: No significant ventricular enlargement. Intra-axial or extra-axial hemorrhage density is not seen. No mass effect or midline shift Basal cisterns are not remarkable. Fourth ventricle is midline. Cranial vault intact. Impression: Negative for acute hemorrhage, mass effect or midline shift As clinically warranted, consider brain MRI imaging follow-up
[2024-07-15] MEDS: ALBUTEROL/IPRATROPIUM (Duoneb) RT SOL 3 ML NEBU INH ×6 (02:22→23:09)
[2024-07-15 03:37] LABS: Basophils % (Auto) 0 % (0-2.5); Eosinophils % (Auto) 0 % (0-10); Hematocrit 26.3 % (41.0-53.0); Immature Granulocytes % (Auto) 1 % (0-0); Immature Granulocytes Auto 0.06 Thou/mm3 (0.00-0.00); Lymphocytes # (Auto) 0.4 Thou/mm3 (1.0-4.8); Lymphocytes % (Auto) 5 % (10-50); Mean Corpuscular HGB Conc 30.8 g/dl (31.0-37.0); Mean Corpuscular Hemoglobin 26.2 pg (25.0-35.0); Mean Corpuscular Volume 85 fL (80-100); Monocytes # (Auto) 0.1 Thou/mm3 (0.0-0.8); Monocytes % (Auto) 1 % (0-12); Neutrophils # (Auto) 7.7 Thou/mm3 (1.8-7.7); Neutrophils % (Auto) 93 % (37-80); Nucleated Red Blood Cell % 0 /100 WBC (0); Platelet Count 223 Thou/mm3 (140-440); RDW Standard Deviation 48.3 fL (35.1-43.9); Red Blood Count 3.09 Miln/mm3 (4.50-5.90); White Blood Count 8.3 Thou/mm3 (3.8-10.6)
[2024-07-15 03:43] LABS: Hemoglobin 8.1 g/dL (13.5-16.0)
[2024-07-15 03:56] LABS: Ammonia 16 uMol/L (11-32)
[2024-07-15 03:57] LABS: Amphetamine/Methamp Scrn,U Negative (Negative); Barbiturate Screen,Urine Negative (Negative); Benzodiazepines Screen,Urine Negative (Negative); Benzoylecgonine Screen, Ur Negative (Negative); Fentanyl Screen,Urine Negative (Negative); Opiate Screen,Urine Positive (Negative); THC Screen,Urine Negative (Negative)
[2024-07-15 04:05] LABS: Alanine Aminotransferase 38 U/L (10-49); Albumin, Serum 3.7 gm/dL (3.5-5.0); Albumin/Globulin Ratio 0.9 (1.2-2.2); Alkaline Phosphatase 196 U/L (46-116); Anion Gap 10 (7-16); Aspartate Amino Transferase 56 U/L (0-34); BUN/Creatinine Ratio 57 Ratio (12-20); Bilirubin,Total < 0.2 mg/dL (0.3-1.2); Blood Urea Nitrogen 63 mg/dL (9-23); Calcium 9.3 mg/dL (8.3-10.6); Calcium (Corrected) 9.5 mg/dL (8.5-10.1); Carbon Dioxide 26.1 mMol/L (20.0-31.0); Chloride 104 mMol/L (98-107); Creatinine (Component) 1.1 mg/dL (0.6-1.3); Glucose 126 mg/dL (74-106); Magnesium 2.2 mg/dL (1.6-2.6); Osmolality,Calculated 299 (275-295); Phosphorous 7.4 mg/dL (2.4-5.1); Potassium 4.8 mMol/L (3.4-5.1); Sodium 140 mMol/L (136-145); Thyroid Stimulating Hormone 2.09 uIU/mL (0.55-4.78); Total Protein 7.7 gm/dL (5.7-8.2); eGFR > 60 See Note
[2024-07-15 04:06] LABS: Base Excess 1 (-3-3); HCO3 27 mEq/L (20-26); Inspired Oxygen, FIO2 40 %; O2 Saturation 99 % (91-98); PCO2 53 mmHg (32.0-48.0); PO2 122 mmHg (83-108); pH, Arterial 7.32 (7.35-7.45)
[2024-07-15 04:08] LABS: Allen Test Not Performed; Puncture Site Left Radial
--- NOTE | 2024-07-15 04:12 | PRELIM_ITS ---
CT scan of the head without intravenous contrast (axial sections with sagittal and coronal reformats) July 15, 2024 0255 hoursClinical History: AMSComparison: None available at the time of this repor t.Findings:There is no evidence of intracranial hemorrhage, mass effect or midline shift. There is mi ld volume loss. The calvarium is unremarkable. The mastoid air cells and the visualized paranasal sin uses are clear.Impression:No evidence of intracranial hemorrhage, mass effect or midline shift. Mild volume loss.Aspect score 10. Report Electronically Signed By: Nick Lee 07/15/2024 4:11:23 AM [ EST]
[2024-07-15] MEDS: DEXMEDETOMIDINE 200 MCG IVPB 200 MCG/50 ML BOTTLE 18.144 MCG IV (05:45)
[2024-07-15] MEDS: cefTRIAXone/D5w 1gm IV premix 50 ML IV (08:42)
[2024-07-15] MEDS: PANTOPRAZOLE INJ 40 MG VIAL IVP ×2 (08:42→21:24)
[2024-07-15] MEDS: BUMETANIDE INJ 0.25 MG/ML VIAL 4 ML 2 MG IVP ×2 (08:42→21:27)
[2024-07-15] MEDS: LOSARTAN POTASSIUM 25 MG TABLET 50 MG PO (08:43)
--- NOTE | 2024-07-15 10:12 | PD.INTPROG ---
Documentation for date of: 07/15/24 Subjective Subjective Interval history: This is a 54-year-old male admitted to the ICU for acute hypercapnic respiratory failure overnight. He was originally admitted to the floor and placed on BiPAP. He did not tolerate the BiPAP and was started on Precedex. For this reason he was transferred over to the ICU. He was also noted to have a GI bleed with a drop in his hemoglobin to 6 on arrival. He was transfused. He has known history of a duodenal ulcer. He is afebrile. He has had a good urinary output is net negative over the last 24 hours. He does have a history of PE for which she had been on Eliquis at home. He is hemodynamically stable Critical Care Note Critical care time (min.): 38 Exam Vital Signs Temp Pulse Resp BP Pulse Ox O2 Del Method FiO2 97.8 F 75 21 H 134/80 H 93 L BiPAP 24 07/15/24 08:00 07/15/24 09:40 07/15/24 09:40 07/15/24 09:40 07/15/24 09:40 07/15/24 08:00 07/15/24 08:00 Narrative Exam General-no acute distress, sedated, morbidly obese, HEENT-normocephalic, atraumatic, sclera icteric, oral mucosa is hydrated, BiPAP in place Chest-lungs clear to auscultation however diminished due to body habitus, heart rhythm rhythmic, no bruits murmurs auscultated times exam, no tenderness on palpation of chest wall, no increased work of breathing Abdomen-obese, soft, nontender, bowel sounds diminished, no apparent rebound or guarding Extremities-no mottling, no clubbing, moves all 4, no focal deficits, edema 1-2+ pitting bilateral lower extremities Drips Precedex Physical Exam Completion Physical Exam Complete?: Yes 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 07/16/24 06:00 07/16/24 06:00 Labs: Laboratory Results - last 24 hr 07/14/24 07/14/24 07/14/24 12:10 15:45 16:37 WBC 10.7 H RBC 2.35 L Hgb 6.0 L* Hct 20.0 L* MCV 85 MCH 25.5 MCHC 30.0 L RDW Std Deviation 49.1 H Plt Count 234 D Neut % (Auto) 83 H Lymph % (Auto) 8 L [place] % (Auto) 7 Eos % (Auto) 2 Baso % (Auto) 0 Neut # (Auto) 8.8 H Lymph # (Auto) 0.8 L [place] # (Auto) 0.7 Eos # (Auto) 0.2 Baso # (Auto) 0.0 Immature Gran # (Auto) 0.06 H Absolute Nucleated RBC 0.00 Immature Gran % 1 H Nucleated RBC % 0 PT 11.8 INR 1.1 APTT 35.6 Puncture Site Right Radial ABG pH 7.29 L ABG pCO2 56 H ABG pO2 152 H ABG HCO3 27 H ABG O2 Saturation 99 H ABG Base Excess 1 FiO2 45 Sodium 139 Potassium 4.8 Chloride 103 Carbon Dioxide 24.5 Anion Gap 12 BUN 64 H Creatinine 1.2 Estim Creat Clear Calc 109.1 eGFR > 60 BUN/Creatinine Ratio 53 H Glucose 105 Calculated Osmolality 295 Lactic Acid 1.2 Calcium 8.9 Corrected Calcium 9.1 Phosphorus Magnesium Total Bilirubin < 0.2 L AST 56 H ALT 37 Alkaline Phosphatase 191 H Ammonia Troponin I < 0.020 B-Natriuretic Peptide 539 H* Total Protein 7.5 Albumin 3.7 Globulin 3.8 H Albumin/Globulin Ratio 1.0 L TSH Urine Opiates Screen Urine Fentanyl Screen Ur Barbiturates Screen U Amphetamin/Meth Scrn U Benzodiazepines Scrn U Cocaine Metab Screen U Marijuana (THC) Screen Blood Type AB Positive Antibody Screen NEGATIVE Crossmatch See Detail Blood Bank Wristband ID Yes 07/14/24 07/15/24 07/15/24 20:42 00:44 03:15 WBC 8.3 RBC 3.09 L Hgb 6.6 L* 8.1 L D Hct 22.0 L 26.3 L MCV 85 MCH 26.2 MCHC 30.8 L RDW Std Deviation 48.3 H Plt Count 223 Neut % (Auto) 93 H Lymph % (Auto) 5 L [place] % (Auto) 1 Eos % (Auto) 0 Baso % (Auto) 0 Neut # (Auto) 7.7 Lymph # (Auto) 0.4 L [place] # (Auto) 0.1 Eos # (Auto) 0.0 Baso # (Auto) 0.0 Immature Gran # (Auto) 0.06 H Absolute Nucleated RBC 0.00 Immature Gran % 1 H Nucleated RBC % 0 PT INR APTT Puncture Site Left Radial ABG pH 7.31 L ABG pCO2 54 H ABG pO2 50 L* D ABG HCO3 28 H ABG O2 Saturation 81 L ABG Base Excess 1 FiO2 40 Sodium 140 Potassium 4.8 Chloride 104 Carbon Dioxide 26.1 Anion Gap 10 BUN 63 H Creatinine 1.1 Estim Creat Clear Calc 119.0 eGFR > 60 BUN/Creatinine Ratio 57 H Glucose 126 H Calculated Osmolality 299 H Lactic Acid Calcium 9.3 Corrected Calcium 9.5 Phosphorus 7.4 H Magnesium 2.2 Total Bilirubin < 0.2 L AST 56 H ALT 38 Alkaline Phosphatase 196 H Ammonia 16 Troponin I B-Natriuretic Peptide Total Protein 7.7 Albumin 3.7 Globulin 4.0 H Albumin/Globulin Ratio 0.9 L TSH 2.09 Urine Opiates Screen Positive A Urine Fentanyl Screen Negative Ur Barbiturates Screen Negative U Amphetamin/Meth Scrn Negative U Benzodiazepines Scrn Negative U Cocaine Metab Screen Negative U Marijuana (THC) Screen Negative Blood Type Antibody Screen Crossmatch Blood Bank Wristband ID 07/15/24 03:54 WBC RBC Hgb Hct MCV MCH MCHC RDW Std Deviation Plt Count Neut % (Auto) Lymph % (Auto) [place] % (Auto) Eos % (Auto) Baso % (Auto) Neut # (Auto) Lymph # (Auto) [place] # (Auto) Eos # (Auto) Baso # (Auto) Immature Gran # (Auto) Absolute Nucleated RBC Immature Gran % Nucleated RBC % PT INR APTT Puncture Site Left Radial ABG pH 7.32 L ABG pCO2 53 H ABG pO2 122 H D ABG HCO3 27 H ABG O2 Saturation 99 H ABG Base Excess 1 FiO2 40 Sodium Potassium Chloride Carbon Dioxide Anion Gap BUN Creatinine Estim Creat Clear Calc eGFR BUN/Creatinine Ratio Glucose Calculated Osmolality Lactic Acid Calcium Corrected Calcium Phosphorus Magnesium Total Bilirubin AST ALT Alkaline Phosphatase Ammonia Troponin I B-Natriuretic Peptide Total Protein Albumin Globulin Albumin/Globulin Ratio TSH Urine Opiates Screen Urine Fentanyl Screen Ur Barbiturates Screen U Amphetamin/Meth Scrn U Benzodiazepines Scrn U Cocaine Metab Screen U Marijuana (THC) Screen Blood Type Antibody Screen Crossmatch Blood Bank Wristband ID Assessment & Plan Additional Assessment Additional Assessment: In summary this is a 54-year-old male admitted to the ICU for acute hypercapnic respiratory failure requiring BiPAP and agitation 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- currently on precedex and sedated - will hold precedex - has received haldol overnight CV CHF- on bumex and has a good UOP Resp Acute Hypercapneic Resp failure- on bipap with improving ABG - will trial off bipap this AM Renal stable GI GIB- known h/o duodenal ulcer - received PRBCs on arrival - on PPI - GI consulted on arrival - will need EGD to eval for bleeding from known ulcer Endo stable Heme Anemia- 2/2 blood loss however does have baseline of chronic anemia - stable post transfusion ID stable case d/w ICU team labs, imaging, records reviewed ~38ccmin required for eval, exam, review, intervention, discussion and formulation of POC for this critically ill pt with hypercapneic resp failure on bipap at high risk for further and ongoing decompensation Provider Notation Provider Notation: Although this document has been carefully reviewed, there may still be some phonetic and other typographical errors. These errors are purely grammatical due to imperfections in the software program and should not be construed in any way to compromise the substance of the patient's medical care during this visit. Thank you for the opportunity and privilege in assisting you with this patient's care and management.
[2024-07-15 10:36] LABS: Collection Type, Urine Catheter; Squamous Epithelial Cell,Urine 0 /hpf (0-5)
--- NOTE | 2024-07-15 10:43 | ESPR_ITS ---
<Statement entered by Daniel Winslow DO - 07/15/24 11:59> Senior attestation: Patient was examined and case was reviewed with team including attending physician. Note reviewed, I agree with most of its contents and agree with the patient's care. Precedex was started overnight due to agitation and poor BiPAP compliance, today has been weaned off. Urine output reveals ~3L, balance negative ~1.7 L. Patient's agitation today appears improved, will reassess patient in late afternoon to determine BiPAP need and potential downgrade to medical floors pending clinical stability. Daniel Winslow DO PGY-3 Documentation for date of: 07/15/24 Subjective Subjective Interval history: Mr. Mekhi Fisher is a 54-year-old gentleman with past medical history of HFpEF(EF 55-60% 04/24/2024), coronary artery disease s/p stent 5 years ago, IDDM, CVA, carotid artery stenosis s/p bilateral endarterectomy 2018, pulmonary embolism on ELIQUIS, hypertension, obstructive sleep apnea, cirrhosis, history of vertebral hemangioma s/p radiation therapy who presented to the ED on 07/14/2024 with a chief complaint of shortness of breath. Due to the patient being agitated at the time of initial evaluation, history was obtained through chart review. Apparently the patient presented to the ED via EMS from [facility] to to acute onset SOB with oxygen desaturation to 87% whilst on 3L of supplemental oxygen. Per nursing staff at the facility, the patient had been refusing his lasix and had a significant amount weight gain in recent days. Patient's PCP recommended the patient be taken to the ED due to concern for volume overload. En route to the the ED, patient was administered 3 sublingual Nitroglycerin tablets and 2 Nitro paste was applied to his chest. The patient was admistered breathing treatments, stress dose steroids, and LASIX 40 mg x 1 for volume overload and started on blood transfusion. GI servieces were consulted, patient n.p.o. for colonoscopy later. Patient was admitted for acute hypoxemic respiratory failure 2/2 CHF exacerbation and acute blood loss anemia. Of note, a non-contrast head CT was not performed. An ABG was performed which showed 7.29/pCO2 56/HCO3 24 indicating a respiratory acidosis. Patient was started on BiPAP and subsequently admitted. 07/14/24: Shortly after being admitted, a DISK SHARPENER was initiated due to the patient becoming acutely agitated at which point he had removed his peripheral IV's and his BiPAP mask. Patient was administer Haldol 5 mg x 1 to reduce his agitation. The patient's agitation initially improved, however a few hours later he again became agitated requiring 2 additional 5 mg dosages after which he was still agitated. Due to still being agitated and minimal improvement of his blood gas, ICU was consulted for Precedex drip to help with BiPAP compliance. 07/15/24: Patient seen and examined at bedside in ICU this morning, overnight patient was upgraded for Precedex drip. Patient's hypercapnic respiratory failure has improved with compliance on BiPAP and Precedex drip. This morning I&O's significant for patient being -1.7 L patient has good urine output we will continue to diurese patient on Bumex. Patient's Precedex drip was discontinued earlier this morning, will reassess patient later today and monitor respiratory status. Will continue wound care for sacral ulcer, will obtain urine analysis to rule out UTI. Will monitor for any signs of bleeding, otherwise patient has shown remarkable improvement on BiPAP we will continue to monitor patient. Exam Vital Signs Temp Pulse Resp BP Pulse Ox O2 Del Method FiO2 97.8 F 78 98 H 137/71 H 13 L BiPAP 24 07/15/24 08:00 07/15/24 10:39 07/15/24 10:39 07/15/24 10:00 07/15/24 10:39 07/15/24 08:00 07/15/24 10:39 Narrative Exam Physical Exam General: 54-year-old obese male, on BiPAP, responding to commands HEENT: Normocephalic, atraumatic, mucous membranes moist. Heart: Regular rate and rhythm, no murmurs. Lungs: Clear to auscultation in upper lobes, with no wheezing or crackles. Limited exam due to patient's body habitus Abdomen: Soft, nondistended, nontender, positive bowel sounds. ?No guarding or rebound tenderness. Neurologic: GCS 11, Limited neurological exam due to BiPAP Extremities: 1+ bilateral lower extremity pitting edema Skin: No rash or ecchymoses. Lines: N/A PIV: 18 guage left wrist, 20 guage right wrist Wright (07/14/2024) Objective Labs 07/15/24 03:15 07/15/24 03:15 Labs: Laboratory Results - last 24 hr 07/14/24 07/14/24 07/14/24 12:10 15:45 16:37 WBC 10.7 H RBC 2.35 L Hgb 6.0 L* Hct 20.0 L* MCV 85 MCH 25.5 MCHC 30.0 L RDW Std Deviation 49.1 H Plt Count 234 D Neut % (Auto) 83 H Lymph % (Auto) 8 L [place] % (Auto) 7 Eos % (Auto) 2 Baso % (Auto) 0 Neut # (Auto) 8.8 H Lymph # (Auto) 0.8 L [place] # (Auto) 0.7 Eos # (Auto) 0.2 Baso # (Auto) 0.0 Immature Gran # (Auto) 0.06 H Absolute Nucleated RBC 0.00 Immature Gran % 1 H Nucleated RBC % 0 PT 11.8 INR 1.1 APTT 35.6 Puncture Site Right Radial ABG pH 7.29 L ABG pCO2 56 H ABG pO2 152 H ABG HCO3 27 H ABG O2 Saturation 99 H ABG Base Excess 1 FiO2 45 Sodium 139 Potassium 4.8 Chloride 103 Carbon Dioxide 24.5 Anion Gap 12 BUN 64 H Creatinine 1.2 Estim Creat Clear Calc 109.1 eGFR > 60 BUN/Creatinine Ratio 53 H Glucose 105 Calculated Osmolality 295 Lactic Acid 1.2 Calcium 8.9 Corrected Calcium 9.1 Phosphorus Magnesium Total Bilirubin < 0.2 L AST 56 H ALT 37 Alkaline Phosphatase 191 H Ammonia Troponin I < 0.020 B-Natriuretic Peptide 539 H* Total Protein 7.5 Albumin 3.7 Globulin 3.8 H Albumin/Globulin Ratio 1.0 L TSH Urine Opiates Screen Urine Fentanyl Screen Ur Barbiturates Screen U Amphetamin/Meth Scrn U Benzodiazepines Scrn U Cocaine Metab Screen U Marijuana (THC) Screen Blood Type AB Positive Antibody Screen NEGATIVE Crossmatch See Detail Blood Bank Wristband ID Yes 07/14/24 07/15/24 07/15/24 20:42 00:44 03:15 WBC 8.3 RBC 3.09 L Hgb 6.6 L* 8.1 L D Hct 22.0 L 26.3 L MCV 85 MCH 26.2 MCHC 30.8 L RDW Std Deviation 48.3 H Plt Count 223 Neut % (Auto) 93 H Lymph % (Auto) 5 L [place] % (Auto) 1 Eos % (Auto) 0 Baso % (Auto) 0 Neut # (Auto) 7.7 Lymph # (Auto) 0.4 L [place] # (Auto) 0.1 Eos # (Auto) 0.0 Baso # (Auto) 0.0 Immature Gran # (Auto) 0.06 H Absolute Nucleated RBC 0.00 Immature Gran % 1 H Nucleated RBC % 0 PT INR APTT Puncture Site Left Radial ABG pH 7.31 L ABG pCO2 54 H ABG pO2 50 L* D ABG HCO3 28 H ABG O2 Saturation 81 L ABG Base Excess 1 FiO2 40 Sodium 140 Potassium 4.8 Chloride 104 Carbon Dioxide 26.1 Anion Gap 10 BUN 63 H Creatinine 1.1 Estim Creat Clear Calc 119.0 eGFR > 60 BUN/Creatinine Ratio 57 H Glucose 126 H Calculated Osmolality 299 H Lactic Acid Calcium 9.3 Corrected Calcium 9.5 Phosphorus 7.4 H Magnesium 2.2 Total Bilirubin < 0.2 L AST 56 H ALT 38 Alkaline Phosphatase 196 H Ammonia 16 Troponin I B-Natriuretic Peptide Total Protein 7.7 Albumin 3.7 Globulin 4.0 H Albumin/Globulin Ratio 0.9 L TSH 2.09 Urine Opiates Screen Positive A Urine Fentanyl Screen Negative Ur Barbiturates Screen Negative U Amphetamin/Meth Scrn Negative U Benzodiazepines Scrn Negative U Cocaine Metab Screen Negative U Marijuana (THC) Screen Negative Blood Type Antibody Screen Crossmatch Blood Bank Wristband ID 07/15/24 03:54 WBC RBC Hgb Hct MCV MCH MCHC RDW Std Deviation Plt Count Neut % (Auto) Lymph % (Auto) [place] % (Auto) Eos % (Auto) Baso % (Auto) Neut # (Auto) Lymph # (Auto) [place] # (Auto) Eos # (Auto) Baso # (Auto) Immature Gran # (Auto) Absolute Nucleated RBC Immature Gran % Nucleated RBC % PT INR APTT Puncture Site Left Radial ABG pH 7.32 L ABG pCO2 53 H ABG pO2 122 H D ABG HCO3 27 H ABG O2 Saturation 99 H ABG Base Excess 1 FiO2 40 Sodium Potassium Chloride Carbon Dioxide Anion Gap BUN Creatinine Estim Creat Clear Calc eGFR BUN/Creatinine Ratio Glucose Calculated Osmolality Lactic Acid Calcium Corrected Calcium Phosphorus Magnesium Total Bilirubin AST ALT Alkaline Phosphatase Ammonia Troponin I B-Natriuretic Peptide Total Protein Albumin Globulin Albumin/Globulin Ratio TSH Urine Opiates Screen Urine Fentanyl Screen Ur Barbiturates Screen U Amphetamin/Meth Scrn U Benzodiazepines Scrn U Cocaine Metab Screen U Marijuana (THC) Screen Blood Type Antibody Screen Crossmatch Blood Bank Wristband ID ABG Interpretation ABG results: 07/14/24 07/15/24 07/15/24 16:37 00:44 03:54 ABG pH 7.29 L 7.31 L 7.32 L ABG pCO2 56 H 54 H 53 H ABG pO2 152 H 50 L* D 122 H D ABG HCO3 27 H 28 H 27 H ABG O2 Saturation 99 H 81 L 99 H ABG Base Excess 1 1 1 Quality Measures Quality Measures none Assessment & Plan Assessment Current Active Medications: Generic Name Dose Route Start Last Admin Trade Name Freq PRN Reason Stop Dose Admin Acetaminophen 650 mg 07/14/24 16:29 Acetaminophen 325 Mg Tablet PO 08/13/24 16:28 Q6H PRN PAIN SCALE 1-3 (mild Acetaminophen 650 mg 07/14/24 16:29 Acetaminophen 325 Mg Tablet PO 08/13/24 16:28 Q6H PRN Fever >100 Hydrocodone Bitart/Acetaminophen 1 tab 07/14/24 16:29 Hydrocodone/Apap 10/325 Tab PO 07/19/24 16:28 Q4HR PRN PAIN SCALE 7-10 (Severe Albuterol/Ipratropium 3 ml 07/14/24 19:00 07/15/24 10:38 Albuterol/Ipratropium (Duoneb) Rt Radha 3 Ml Nebu INH 08/13/24 18:59 3 ml Q4HRRT RINA Administration Atorvastatin Calcium 80 mg 07/14/24 21:00 07/14/24 19:59 Atorvastatin Calcium 20 Mg Tablet PO 08/13/24 20:59 Not Given HS RINA Bumetanide 2 mg 07/14/24 21:00 07/15/24 08:42 Bumetanide Inj 0.25 Mg/Ml Vial 4 Ml IVP 08/13/24 20:59 2 mg BID RINA Administration Dextrose 25 ml 07/14/24 16:31 Dextrose 50%-Water Inj 50 Ml Syringe IV 08/13/24 16:30 Q15MIN PRN BG 50-70 responsive npo pt Dextrose 50 ml 07/14/24 16:31 Dextrose 50%-Water Inj 50 Ml Syringe IV 08/13/24 16:30 Q15MIN PRN BG <50 OR BG <70 & pt unresponsive Glucagon 1 mg 07/14/24 16:31 Glucagon Inj 1 Mg Vial IM Q15MIN PRN BG <70, and no IV access Ceftriaxone Sodium/Dextrose 50 mls @ 100 mls/hr 07/14/24 17:07 07/15/24 08:42 Rocephin/D5w 1gm Iv Premix IV 07/21/24 17:06 100 mls/hr QDAY RINA Administration Insulin Glargine 20 unit 07/14/24 21:00 07/15/24 07:59 Insulin Glargine (Lantus) 5 Unit/0.05 Ml (Per 5 Units) SC 08/13/24 20:59 Not Given BID RINA Insulin Human Lispro 0 unit 07/14/24 17:00 07/15/24 07:58 Insulin Lispro (Admelog) 1 Unit/0.01 Ml Unit SC 08/13/24 16:59 Not Given [facility] Protocol Losartan Potassium 50 mg 07/15/24 09:00 07/15/24 08:43 Losartan Potassium 25 Mg Tablet PO 08/14/24 08:59 50 mg QDAY RINA Administration Morphine Sulfate 2 mg 07/14/24 19:53 07/14/24 23:54 Morphine Sulf Inj 10 Mg/Ml Vial IVP 07/19/24 19:52 2 mg Q4HR PRN Administration BREAKTHROUGH PAIN 4-10 Ondansetron HCl 4 mg 07/14/24 16:29 Ondansetron Inj 2 Mg/Ml Inj 2 Ml IV 08/13/24 16:28 Q6H PRN NAUSEA OR VOMITING Protocol Oxycodone/Acetaminophen 1 tab 07/14/24 16:29 Oxycodone/Apap 5/325 Tablet PO 07/19/24 16:28 Q6H PRN PAIN SCALE 4-6 (Moderate Pantoprazole Sodium 40 mg 07/15/24 09:00 07/15/24 08:42 Pantoprazole Inj 40 Mg Vial IVP 08/14/24 08:59 40 mg BID RINA Administration Sodium Chloride 3 ml 07/14/24 12:01 07/14/24 12:11 Sodium Chloride Rt Radha 0.9% 3 Ml Nebu INH 08/13/24 12:00 3 ml PRN PRN Administration SOLN Plan Assessment & Plan Neurological #Acute encephalopathy #Agitation Likely in setting of acute hypercapnic respiratory failure Patient was started on Precedex drip last night to improve compliance with BiPAP Plan: Will hold Precedex drip, monitor compliance, will continue restraints Cardiology #CHF exacerbation #HFpEF EF 55-60% 04/2024 Patient with known history of Heart failure with reduced ejection fraction. Per nursing facilty, patient has been non-compliant with diuresis leading to fluid overload and Previous Echo report 04/24/2024: Normal LV size and function. Mild LVH. Grade I diastolic dsyfunction. Estimated EF 55-60%. Mild RV dilation. Normal RV function. Mild bi-atrial dilation. Trace MR, TR. Mild AV sclerosis without stenosis. There is a small circumferential pericardial effusion. No evidence of cardiac tamponade. BNP on admission: 539 Patient states he is not taking his LASIX. Physical exam notable for B/L 2+ lower extremity edema after diuresis, Bibasilar crackles CXR: enlargement of the cardiac contour with significant B/L vascular congestion and perihilar edema consistent with CHF. 07/15: Patient is net -1.7 L since admission Plan: - Follow echocardiogram ? Continue BUMEX 2 mg BID ? Continue DuoNebs q6h PRN ? Continue BiPAP ? Holding home METOPROLOL in setting of CHF exacerbation ? Strict IN & Out's #Coronary arterial disease s/p stent Patient with known history of coronary artery disease s/p stenting approximately 5 years. Prior records in 10/2023 show that cardiology services recommended the patient be discharged with aspirin and statin. However at discharge during that hospitalization, patient was not discharged with Aspirin. Review of recent medications also show that patient has not been on aspirin. -Will defer starting aspirin at this time due to active GI bleeding. -Will consider consulting cardiology for further recommendations. Pulmonary # Acute hypercapnic respiratory failure #Carbon Dioxide narcosis #Obstuctive sleep apnea #Obesity hypoventilation syndrome #? COPD #Hypercapnic Respiratory failure Patient with history of CAROLYN and OHS. Patient reportedly also has a longstanding smoking history. Patient was found to have elevated CO2 levels with Initial ABG showing 7.29/pCO2 56/HCO3 24. Most likely 2/2 to CAROLYN vs Obesity hypoventilation vs CHF exacerbation. Patient was started on BiPAP to allow for CO2 washout, however patient became agitated and was unable to comply with wearing BiPAP mask, despite receiving a total of Haldol 5 mg x 3 doses. Decision was made to upgrade the patient to ICU for sedation with precedex to allow for BiPAP compliance. Plan: -Continue BiPAP, patient has improved gas analysis -ABG from this morning shows improved results -Will discontinue Precedex -F/u ABG later today #History of Pulmonary Embolism Know history of PE with current use of Eliquis for anticoagulation. -Will hold Eliquis at this time due to acute blood loss anemia in setting of GI bleed Gastrointestinal #Upper vs Lower GI bleed #Duodenal ulcer Hg/HCT: 6.0/20.0% Isolated elevated BUN consistent with upper GI bleed On recent admission, 06/25/2024 patient underwent upper endoscopy which showed small duodenal ulcer in the junction of duodenal bulb and descending duodenum gastritis. Plan: -Continue IV Protonix 40 mg BID - Hold NSAIDs, steroids, ASA -Patient needs EGD to reassess bleeding site - GI consulted, recommendations as follows: Once patient's respiratory status stabilizes, GoLytely prep and schedule colonoscopy. Agree with the blood transfusion. #Mild transaminitis #Liver cirrhosis History of liver cirrhosis. Mildly elevated AST is on admission. -Continue to monitor with daily CMP -Ceftiraxone 1 gram QDAY as PXP in setting of ? GI bleed and cirrhosis Renal/Genitourinary No active issues as creatinine appears to be at baseline. -Continue to monitor Bun and Creatinine with daily CMP #Hyperphosphatemia Monitor phosphate in a.m. Endocrine # Uncontrolled IDDM type II A1c 13.6 from 04/2024. GLUCOSE 105 on admission. From last visit, patient has a history of INSULIN noncompliance, refusing INSULIN at times, not adherent with diet. ? Continue INSULIN GLARGINE 20 units BID (home dose 40 HS) - Hold patient's home Diabetes Medications - Patient started on Insulin Sliding scale - ACHS accucheks - NPO - Follow up QAM CMP glucose level Hemetology #Acute blood loss anemia #Normocytic anemia Hg/HCT: 6.0/20.0%, MCV 86 Secondary to possible GI bleed as there is an isolated elevation of BUN indicating a upper GI source of bleeding, although recent EGD did not show any active bleeding. Patient received 2 units PRBC's -F/U post transfusion H/H -Continue to trend H/H with qam CBC -DVT prophylaxis: SCD's in setting of ? GI bleed Infectious Disease Does not appear to have any active infection at this time as patient has been afebrile and no leuckocytosis on CBC. -Antibiotic regimen: Ceftriaxone 1 gram qday(07/14/2024-) in setting of ? GI bleed and cirrhosis for PXP against bacterial translocation from the gut into the bloodstream. Patient has pending urine analysis, will obtain to rule out UTI Skin #Sacral Decubitus Ulcer Patient noted to have an open wound at the gluteal fold above the coccyx. Appears to be a stage 2 ulcer. -Wound care referral. DVT prophylaxis: SCDs GI prophylaxis: Protonix twice daily Diet: N.p.o. Lines: Peripheral IV Code status: Full code Case discussed with Attending Dr. Sheffield and Dr. Winslow PGY3. Miguel Viveros PGY1 Disclaimer: This note was dictated by speech recognition. Minor errors in progressive care unit registered nurse may be present due to voice recognition software.
[2024-07-15 11:01] LABS: Bilirubin,Urine Negative (Negative); Blood,Urine 2+ (Negative); Clarity,Urine Clear (Clear/Hazy); Glucose, Urine Negative (Negative); Hyaline Casts,Urine < 1 /hpf (0-1); Ketones,Urine Negative (Negative); Leukocyte Esterase,Urine Negative (Negative); Nitrite,Urine Negative (Negative); Protein,Urine 2+ (Neg - Trace); RBC,Urine 47 /hpf (0-3); Specific Gravity,Urine 1.009 (1.001-1.035); Urobilinogen,Urine Negative mg/dL (0.0-1.0); WBC,Urine 6 /hpf (0-5)
[2024-07-15 11:27] LABS: Color,Urine Lt-Yellow (Lt Yel-Yel)
[2024-07-15] MEDS: HYDROcodone/APAP 10/325 TAB PO ×2 (12:26→23:26)
[2024-07-15] MEDS: INSULIN LISPRO (AdmeLOG) 1 UNIT/0.01 ML UNIT SC ×2 (12:27→21:24)
[2024-07-15 14:52] LABS: Allen Test Not Performed; Base Excess 2 (-3-3); HCO3 27 mEq/L (20-26); Inspired Oxygen, FIO2 24 %; O2 Saturation 95 % (91-98); PCO2 45 mmHg (32.0-48.0); PO2 74 mmHg (83-108); Puncture Site Left Radial
--- NOTE | 2024-07-15 15:38 | PD.RESEVENT ---
Documentation for date of: 07/15/24 Event Note Event Note: The hospitalist team accepted an ICU downgrade, 54 year-old male, Mekhi Smith, who was upgraded for acute encephalopathy after he was found acutely agitated, pulling IV lines and refusing BiPAP and blood transfusion. Aggitation was managed with PRECEDEX and patient continued on BiPAP. He is stable to downgrade to floors. The hospitalist team will assume care on 07/16/2024 in the AM. Patient case was discussed with attending, Yudith Norwood MD and senior resident Dr. Moses. Mayelin Lockhart DO PGYI
--- NOTE | 2024-07-15 16:06 | ESPR_ITS ---
Documentation for date of: 07/15/24 Subjective Subjective Interval history: hemoglobin hematocrit went down to 6.6 and 22.0 Patient got transfused back up to hemoglobin 8.1 hematocrit 26.3 Patient is off the BiPAP Had a long discussion Patient is going will clear liquid diet with the GoLytely prep And once he is cleared we will schedule a colonoscopy Exam Vital Signs Temp Pulse Resp BP Pulse Ox O2 Del Method O2 Flow Rate 98.0 F 82 20 145/57 H 99 Nasal Cannula 2 07/15/24 12:01 07/15/24 15:21 07/15/24 15:21 07/15/24 15:06 07/15/24 15:21 07/15/24 15:13 07/15/24 15:21 FiO2 24 07/15/24 12:01 Constitutional Comments: Alert oriented Routine Respiratory Exam Comments: Normal to auscultation Routine Abdominal Exam Comments: Soft nontender Objective Labs 07/15/24 03:15 07/15/24 03:15 Labs: Laboratory Results - last 24 hr 07/14/24 07/14/24 07/14/24 12:10 15:45 16:37 WBC RBC Hgb Hct MCV MCH MCHC RDW Std Deviation Plt Count Neut % (Auto) Lymph % (Auto) [place] % (Auto) Eos % (Auto) Baso % (Auto) Neut # (Auto) Lymph # (Auto) [place] # (Auto) Eos # (Auto) Baso # (Auto) Immature Gran # (Auto) Absolute Nucleated RBC Immature Gran % Nucleated RBC % PT 11.8 INR 1.1 APTT 35.6 Puncture Site Right Radial ABG pH 7.29 L ABG pCO2 56 H ABG pO2 152 H ABG HCO3 27 H ABG O2 Saturation 99 H ABG Base Excess 1 FiO2 45 Sodium Potassium Chloride Carbon Dioxide Anion Gap BUN Creatinine Estim Creat Clear Calc eGFR BUN/Creatinine Ratio Glucose Calculated Osmolality Calcium Corrected Calcium Phosphorus Magnesium Total Bilirubin AST ALT Alkaline Phosphatase Ammonia Total Protein Albumin Globulin Albumin/Globulin Ratio TSH Ur Collection Type Urine Color Urine Clarity Urine pH Ur Specific [place] Urine Protein Urine Glucose (UA) Urine Ketones Urine Blood Urine Nitrite Urine Bilirubin Urine Urobilinogen (Auto) Ur Leukocyte Esterase Urine RBC Urine WBC Ur Squamous Epith Cells Urine Bacteria Hyaline Casts Urine Opiates Screen Urine Fentanyl Screen Ur Barbiturates Screen U Amphetamin/Meth Scrn U Benzodiazepines Scrn U Cocaine Metab Screen U Marijuana (THC) Screen Blood Type AB Positive Antibody Screen NEGATIVE Crossmatch See Detail Blood Bank Wristband ID Yes 07/14/24 07/15/24 07/15/24 20:42 00:44 03:15 WBC 8.3 RBC 3.09 L Hgb 6.6 L* 8.1 L D Hct 22.0 L 26.3 L MCV 85 MCH 26.2 MCHC 30.8 L RDW Std Deviation 48.3 H Plt Count 223 Neut % (Auto) 93 H Lymph % (Auto) 5 L [place] % (Auto) 1 Eos % (Auto) 0 Baso % (Auto) 0 Neut # (Auto) 7.7 Lymph # (Auto) 0.4 L [place] # (Auto) 0.1 Eos # (Auto) 0.0 Baso # (Auto) 0.0 Immature Gran # (Auto) 0.06 H Absolute Nucleated RBC 0.00 Immature Gran % 1 H Nucleated RBC % 0 PT INR APTT Puncture Site Left Radial ABG pH 7.31 L ABG pCO2 54 H ABG pO2 50 L* D ABG HCO3 28 H ABG O2 Saturation 81 L ABG Base Excess 1 FiO2 40 Sodium 140 Potassium 4.8 Chloride 104 Carbon Dioxide 26.1 Anion Gap 10 BUN 63 H Creatinine 1.1 Estim Creat Clear Calc 119.0 eGFR > 60 BUN/Creatinine Ratio 57 H Glucose 126 H Calculated Osmolality 299 H Calcium 9.3 Corrected Calcium 9.5 Phosphorus 7.4 H Magnesium 2.2 Total Bilirubin < 0.2 L AST 56 H ALT 38 Alkaline Phosphatase 196 H Ammonia 16 Total Protein 7.7 Albumin 3.7 Globulin 4.0 H Albumin/Globulin Ratio 0.9 L TSH 2.09 Ur Collection Type Urine Color Urine Clarity Urine pH Ur Specific [place] Urine Protein Urine Glucose (UA) Urine Ketones Urine Blood Urine Nitrite Urine Bilirubin Urine Urobilinogen (Auto) Ur Leukocyte Esterase Urine RBC Urine WBC Ur Squamous Epith Cells Urine Bacteria Hyaline Casts Urine Opiates Screen Positive A Urine Fentanyl Screen Negative Ur Barbiturates Screen Negative U Amphetamin/Meth Scrn Negative U Benzodiazepines Scrn Negative U Cocaine Metab Screen Negative U Marijuana (THC) Screen Negative Blood Type Antibody Screen Crossmatch Blood Bank Wristband ID 07/15/24 07/15/24 07/15/24 03:54 10:20 14:45 WBC RBC Hgb Hct MCV MCH MCHC RDW Std Deviation Plt Count Neut % (Auto) Lymph % (Auto) [place] % (Auto) Eos % (Auto) Baso % (Auto) Neut # (Auto) Lymph # (Auto) [place] # (Auto) Eos # (Auto) Baso # (Auto) Immature Gran # (Auto) Absolute Nucleated RBC Immature Gran % Nucleated RBC % PT INR APTT Puncture Site Left Radial Left Radial ABG pH 7.32 L 7.40 ABG pCO2 53 H 45 ABG pO2 122 H D 74 L D ABG HCO3 27 H 27 H ABG O2 Saturation 99 H 95 ABG Base Excess 1 2 FiO2 40 24 Sodium Potassium Chloride Carbon Dioxide Anion Gap BUN Creatinine Estim Creat Clear Calc eGFR BUN/Creatinine Ratio Glucose Calculated Osmolality Calcium Corrected Calcium Phosphorus Magnesium Total Bilirubin AST ALT Alkaline Phosphatase Ammonia Total Protein Albumin Globulin Albumin/Globulin Ratio TSH Ur Collection Type Catheter Urine Color Lt-Yellow Urine Clarity Clear Urine pH 6.0 Ur Specific [place] 1.009 Urine Protein 2+ A Urine Glucose (UA) Negative Urine Ketones Negative Urine Blood 2+ A Urine Nitrite Negative Urine Bilirubin Negative Urine Urobilinogen (Auto) Negative Ur Leukocyte Esterase Negative Urine RBC 47 H Urine WBC 6 H Ur Squamous Epith Cells 0 Urine Bacteria None Hyaline Casts < 1 Urine Opiates Screen Urine Fentanyl Screen Ur Barbiturates Screen U Amphetamin/Meth Scrn U Benzodiazepines Scrn U Cocaine Metab Screen U Marijuana (THC) Screen Blood Type Antibody Screen Crossmatch Blood Bank Wristband ID Impressions Impression: # Acute posthemorrhagic anemia requiring transfusion Consent for fiberoptic colonoscopy with possible biopsy possible therapeutic intervention under intravenous moderate sedation obtained Clear liquid diet GoLytely prep Will follow ABG Interpretation ABG results: 07/14/24 07/15/24 07/15/24 16:37 00:44 03:54 ABG pH 7.29 L 7.31 L 7.32 L ABG pCO2 56 H 54 H 53 H ABG pO2 152 H 50 L* D 122 H D ABG HCO3 27 H 28 H 27 H ABG O2 Saturation 99 H 81 L 99 H ABG Base Excess 1 1 1 07/15/24 14:45 ABG pH 7.40 ABG pCO2 45 ABG pO2 74 L D ABG HCO3 27 H ABG O2 Saturation 95 ABG Base Excess 2 Assessment & Plan A&P Narrative # Anemia blood loss requiring blood transfusion Once patient's respiratory status stabilizes GoLytely prep and schedule colonoscopy Agree with the blood transfusion Other medical problems include # Acute hypoxic respiratory failure requiring BiPAP # CAROLYN # History congestive heart failure # CVA requiring bilateral endarterectomy IDDM # Pulmonary embolism on Eliquis Thank you very much for the opportunity to participate in the care of this patient Time Spent With Patient Time: Total time spent is greater than 50% in coordination of care (as documented) at patient's floor/unit and/or counseling patient:
--- NOTE | 2024-07-15 17:23 | PC.NURSE ---
Dr. Wakefield at bedside explained EGD procedure to patient. Dr. Viveros was also at bedside. When I went to get consent for procedure patient stated he does not remember speaking with any doctor regarding a procedure. Unable to obtain consent from patient.
--- NOTE | 2024-07-15 17:24 | PC.NURSE ---
Handoff report given to Dolores MATOS. Pt shows no s/s of distress. VSS, all belongings gathered and checked with patient.
[2024-07-15 18:53] LABS: Folate > 24.00 ng/mL (>5.38); Vitamin B12 999 pg/mL (211-911)
[2024-07-15] MEDS: NA SU/NAHCO3/KC/PEG (Golytely) 4,000 ML BTL 4000 ML PO (19:36)
[2024-07-15] MEDS: INSULIN GLARGINE (Lantus) 5 UNIT/0.05 ML (PER 5 UNITS) 20 UNIT SC (21:24)
[2024-07-15] MEDS: ATORVASTATIN CALCIUM 20 MG TABLET 80 MG PO (21:27)
[2024-07-15] MEDS: MORPHINE SULF INJ 10 MG/ML VIAL 2 MG IVP (21:27)
[2024-07-16] VITALS (15 sets, daily range): BP systolic 152–186; BP diastolic 80–107; PULSE 78–90; RESP 16–24; TEMP 36.4–37.1; O2SAT 96–100; BMI 48.6
[2024-07-16] MEDS: ALBUTEROL/IPRATROPIUM (Duoneb) RT SOL 3 ML NEBU INH ×6 (03:10→23:09)
[2024-07-16 06:23] LABS: Basophils % (Auto) 0 % (0-2.5); Eosinophils # (Auto) 0.1 Thou/mm3 (0.0-0.5); Eosinophils % (Auto) 1 % (0-10); Hematocrit 27.6 % (41.0-53.0); Immature Granulocytes % (Auto) 1 % (0-0); Immature Granulocytes Auto 0.05 Thou/mm3 (0.00-0.00); Lymphocytes # (Auto) 1.3 Thou/mm3 (1.0-4.8); Lymphocytes % (Auto) 14 % (10-50); Mean Corpuscular HGB Conc 30.1 g/dl (31.0-37.0); Mean Corpuscular Volume 87 fL (80-100); Monocytes # (Auto) 0.9 Thou/mm3 (0.0-0.8); Monocytes % (Auto) 10 % (0-12); Neutrophils # (Auto) 7.3 Thou/mm3 (1.8-7.7); Neutrophils % (Auto) 75 % (37-80); Nucleated Red Blood Cell % 0 /100 WBC (0); Platelet Count 262 Thou/mm3 (140-440); RDW Standard Deviation 49.4 fL (35.1-43.9); Red Blood Count 3.19 Miln/mm3 (4.50-5.90); White Blood Count 9.8 Thou/mm3 (3.8-10.6)
[2024-07-16 06:25] LABS: Hemoglobin 8.3 g/dL (13.5-16.0)
[2024-07-16 06:54] LABS: Alanine Aminotransferase 33 U/L (10-49); Albumin, Serum 3.8 gm/dL (3.5-5.0); Alkaline Phosphatase 169 U/L (46-116); Anion Gap 9 (7-16); Aspartate Amino Transferase 55 U/L (0-34); BUN/Creatinine Ratio 56 Ratio (12-20); Bilirubin,Total 0.2 mg/dL (0.3-1.2); Blood Urea Nitrogen 56 mg/dL (9-23); Calcium 9.3 mg/dL (8.3-10.6); Calcium (Corrected) 9.5 mg/dL (8.5-10.1); Carbon Dioxide 28.6 mMol/L (20.0-31.0); Chloride 103 mMol/L (98-107); Estimated Creatinine Clearance 112.1 mL/min (>60); Globulin 3.9 gm/dL (2.3-3.5); Glucose 141 mg/dL (74-106); Magnesium 2.1 mg/dL (1.6-2.6); Osmolality,Calculated 298 (275-295); Phosphorous 4.7 mg/dL (2.4-5.1); Potassium 4.1 mMol/L (3.4-5.1); Sodium 141 mMol/L (136-145); Total Protein 7.7 gm/dL (5.7-8.2); eGFR > 60 See Note
[2024-07-16] MEDS: INSULIN LISPRO (AdmeLOG) 1 UNIT/0.01 ML UNIT SC (07:42)
[2024-07-16] MEDS: MORPHINE SULF INJ 10 MG/ML VIAL 2 MG IVP ×3 (07:58→17:29)
[2024-07-16] MEDS: INSULIN GLARGINE (Lantus) 5 UNIT/0.05 ML (PER 5 UNITS) 20 UNIT SC (08:00)
[2024-07-16] MEDS: LOSARTAN POTASSIUM 25 MG TABLET 50 MG PO ×2 (08:00→16:03)
[2024-07-16] MEDS: BUMETANIDE INJ 0.25 MG/ML VIAL 4 ML 2 MG IVP ×2 (08:00→20:49)
[2024-07-16] MEDS: cefTRIAXone/D5w 1gm IV premix 50 ML IV (08:01)
[2024-07-16] MEDS: PANTOPRAZOLE INJ 40 MG VIAL IVP ×2 (10:02→20:49)
[2024-07-16] MEDS: HYDROcodone/APAP 10/325 TAB PO ×2 (10:22→15:06)
[2024-07-16] MEDS: NA SU/NAHCO3/KC/PEG (Golytely) 4,000 ML BTL 4000 ML PO ×2 (11:06→17:29)
[2024-07-16] MEDS: LORazepam 2 MG/ML VIAL 1 MG IVP ×2 (11:07→16:04)
--- NOTE | 2024-07-16 11:31 | PC.SS ---
Mekhi Smith is a 54-year-old male admitted to [facility] for AHRF. SS conducted bedside contact with the patient to complete initial assessment and to discuss discharge-planning, pt resting therefore assessment completed with daughters at bedside. Gregoria Sutton [phone] confirmed demographic information. She identifies the pts life partner Iraida Anaya [phone] as the pts surrogate decision maker. Patient resides at [facility], and wishes to return at the time of DC, pt is currently receiving therapy at [facility]. Pts PCP is Dr. Sue Cevallos. Pt will need gurney transportation upon DC, and possesses coverage for [employer]. No further intervention required at this time, social studies teacher would be available to address any further concerns. DM: HAKEEM- Iraida Anaya DC Plan: [facility]
--- NOTE | 2024-07-16 14:58 | PC.SS ---
Rounding: ICU downgrade, pending colonoscopy
--- NOTE | 2024-07-16 15:19 | ESPR_ITS ---
Documentation for date of: 07/16/24 Subjective Subjective Interval history: Patient was examined bedside this morning, he was mildly anxious. He had output of -1925. Will continue to diurese him. Dr. Wakefield is planning to do colonoscopy after the patient is little bit more stable Exam Vital Signs Temp Pulse Resp BP Pulse Ox O2 Del Method O2 Flow Rate 97.5 F 84 24 H 166/88 H 97 Oxy Mask 4 07/16/24 12:00 07/16/24 12:00 07/16/24 12:00 07/16/24 12:00 07/16/24 12:00 07/16/24 12:00 07/16/24 12:00 FiO2 24 07/16/24 12:00 Narrative Exam GENERAL: Morbidly obese man, mildly anxious on 4 L of oxygen via nasal cannula HEENT: Normocephalic, atraumatic. Pupils are equal and reactive. Oral mucosa is moist. NECK: Supple, nontender, no JVD CHEST: Symmetrical, atraumatic and with equal expansion ,Nontender on palpation CARDIOVASCULAR: Heart regular rhythm & rate. S1/S2. no murmur or gallop rub or extra beats. LUNGS: Clear to auscultation bilaterally with symmetrical chest rise. No laboring tachypnea or wheezing. No intercostal subcostal retraction. No rales and no rhonchi. ABDOMEN: Soft, flat, nontender to palpation, no guarding or rebound tenderness. Active and normal bowel sounds. EXTREMITIES:Moves all 4 extremities, SKIN: Warm and dry, no jaundice or rashes noted. NEURO: Patient is AO x 3, Cranial nerves II through XII grossly intact. There is no focal neurologic deficits noted. PSYCHIATRIC: Patient is in normal mood, cooperative, no SI or HI or hallucinations. Objective Labs 07/17/24 05:19 07/17/24 05:19 Labs: Laboratory Results - last 24 hr 07/15/24 07/16/24 03:15 06:00 WBC 9.8 RBC 3.19 L Hgb 8.3 L Hct 27.6 L MCV 87 MCH 26.0 MCHC 30.1 L RDW Std Deviation 49.4 H Plt Count 262 D Neut % (Auto) 75 Lymph % (Auto) 14 [place] % (Auto) 10 Eos % (Auto) 1 Baso % (Auto) 0 Neut # (Auto) 7.3 Lymph # (Auto) 1.3 [place] # (Auto) 0.9 H Eos # (Auto) 0.1 Baso # (Auto) 0.0 Immature Gran # (Auto) 0.05 H Absolute Nucleated RBC 0.00 Immature Gran % 1 H Nucleated RBC % 0 Sodium 141 Potassium 4.1 D Chloride 103 Carbon Dioxide 28.6 Anion Gap 9 BUN 56 H Creatinine 1.0 Estim Creat Clear Calc 112.1 eGFR > 60 BUN/Creatinine Ratio 56 H Glucose 141 H Calculated Osmolality 298 H Calcium 9.3 Corrected Calcium 9.5 Phosphorus 4.7 Magnesium 2.1 Total Bilirubin 0.2 L AST 55 H ALT 33 Alkaline Phosphatase 169 H D Total Protein 7.7 Albumin 3.8 Globulin 3.9 H Albumin/Globulin Ratio 1.0 L Vitamin B12 999 H Folate > 24.00 ABG Interpretation ABG results: 07/14/24 07/15/24 07/15/24 16:37 00:44 03:54 ABG pH 7.29 L 7.31 L 7.32 L ABG pCO2 56 H 54 H 53 H ABG pO2 152 H 50 L* D 122 H D ABG HCO3 27 H 28 H 27 H ABG O2 Saturation 99 H 81 L 99 H ABG Base Excess 1 1 1 07/15/24 14:45 ABG pH 7.40 ABG pCO2 45 ABG pO2 74 L D ABG HCO3 27 H ABG O2 Saturation 95 ABG Base Excess 2 Quality Measures Quality Measures none Assessment & Plan Assessment Current Active Medications: Generic Name Dose Route Start Last Admin Trade Name Freq PRN Reason Stop Dose Admin Acetaminophen 650 mg 07/14/24 16:29 Acetaminophen 325 Mg Tablet PO 08/13/24 16:28 Q6H PRN PAIN SCALE 1-3 (mild Acetaminophen 650 mg 07/14/24 16:29 Acetaminophen 325 Mg Tablet PO 08/13/24 16:28 Q6H PRN Fever >100 Hydrocodone Bitart/Acetaminophen 1 tab 07/14/24 16:29 07/16/24 15:06 Hydrocodone/Apap 10/325 Tab PO 07/19/24 16:28 1 tab Q4HR PRN Administration PAIN SCALE 7-10 (Severe Albuterol/Ipratropium 3 ml 07/14/24 19:00 07/16/24 11:20 Albuterol/Ipratropium (Duoneb) Rt Radha 3 Ml Nebu INH 08/13/24 18:59 3 ml Q4HRRT RINA Administration Atorvastatin Calcium 80 mg 07/14/24 21:00 07/15/24 21:27 Atorvastatin Calcium 20 Mg Tablet PO 08/13/24 20:59 80 mg HS RINA Administration Bumetanide 2 mg 07/14/24 21:00 07/16/24 08:00 Bumetanide Inj 0.25 Mg/Ml Vial 4 Ml IVP 08/13/24 20:59 2 mg BID RINA Administration Dextrose 25 ml 07/14/24 16:31 Dextrose 50%-Water Inj 50 Ml Syringe IV 08/13/24 16:30 Q15MIN PRN BG 50-70 responsive npo pt Dextrose 50 ml 07/14/24 16:31 Dextrose 50%-Water Inj 50 Ml Syringe IV 08/13/24 16:30 Q15MIN PRN BG <50 OR BG <70 & pt unresponsive Glucagon 1 mg 07/14/24 16:31 Glucagon Inj 1 Mg Vial IM Q15MIN PRN BG <70, and no IV access Ceftriaxone Sodium/Dextrose 50 mls @ 100 mls/hr 07/14/24 17:07 07/16/24 08:01 Rocephin/D5w 1gm Iv Premix IV 07/21/24 17:06 100 mls/hr QDAY RINA Administration Insulin Glargine 20 unit 07/14/24 21:00 07/16/24 08:00 Insulin Glargine (Lantus) 5 Unit/0.05 Ml (Per 5 Units) SC 08/13/24 20:59 20 unit BID RINA Administration Insulin Human Lispro 0 unit 07/14/24 17:00 07/16/24 11:21 Insulin Lispro (Admelog) 1 Unit/0.01 Ml Unit SC 08/13/24 16:59 Not Given ACHS RINA Protocol Lorazepam 1 mg 07/16/24 14:44 Lorazepam 2 Mg/Ml Vial IVP 07/21/24 14:43 Q8HR PRN ANXIETY Losartan Potassium 50 mg 07/15/24 09:00 07/16/24 08:00 Losartan Potassium 25 Mg Tablet PO 08/14/24 08:59 50 mg QDAY RINA Administration Morphine Sulfate 2 mg 07/14/24 19:53 07/16/24 13:08 Morphine Sulf Inj 10 Mg/Ml Vial IVP 07/19/24 19:52 2 mg Q4HR PRN Administration BREAKTHROUGH PAIN 4-10 Ondansetron HCl 4 mg 07/14/24 16:29 Ondansetron Inj 2 Mg/Ml Inj 2 Ml IV 08/13/24 16:28 Q6H PRN NAUSEA OR VOMITING Protocol Oxycodone/Acetaminophen 1 tab 07/14/24 16:29 Oxycodone/Apap 5/325 Tablet PO 07/19/24 16:28 Q6H PRN PAIN SCALE 4-6 (Moderate Pantoprazole Sodium 40 mg 07/15/24 09:00 07/16/24 10:02 Pantoprazole Inj 40 Mg Vial IVP 08/14/24 08:59 40 mg BID RINA Administration Sodium Chloride 3 ml 07/14/24 12:01 07/14/24 12:11 Sodium Chloride Rt Radha 0.9% 3 Ml Nebu INH 08/13/24 12:00 3 ml PRN PRN Administration SOLN Plan Mr. Mekhi Fisher is a 54-year-old gentleman with past medical history of HFpEF(EF 55-60% 04/24/2024), coronary artery disease s/p stent 5 years ago, IDDM, CVA, carotid artery stenosis s/p bilateral endarterectomy 2018, pulmonary embolism on ELIQUIS, hypertension, obstructive sleep apnea, cirrhosis, history of vertebral hemangioma s/p radiation therapy who presented to the ED on 07/14/2024 with a chief complaint of shortness of breath. Due to the patient being agitated at the time of initial evaluation, history was obtained through chart review. Apparently the patient presented to the ED via EMS from [facility] to to acute onset SOB with oxygen desaturation to 87% whilst on 3L of supplemental oxygen. Per nursing staff at the facility, the patient had been refusing his lasix and had a significant amount weight gain in recent days. Patient's PCP recommended the patient be taken to the ED due to concern for volume overload. En route to the the ED, patient was administered 3 sublingual Nitroglycerin tablets and 2 Nitro paste was applied to his chest. #CHF exacerbation #HFpEF EF 55-60% 04/2024 -Patient with known history of Heart failure with reduced ejection fraction. Per nursing facilty, patient has been non-compliant with diuresis leading to fluid overload and Previous Echo report 04/24/2024: Normal LV size and function. Mild LVH. Grade I diastolic dsyfunction. Estimated EF 55-60%. Mild RV dilation. Normal RV function. Mild bi-atrial dilation. Trace MR, TR. Mild AV sclerosis without stenosis. There is a small circumferential pericardial effusion. No evidence of cardiac tamponade. BNP on admission: 539 Patient states he is not taking his LASIX. Physical exam notable for B/L 2+ lower extremity edema after diuresis, Bibasilar crackles CXR: enlargement of the cardiac contour with significant B/L vascular congestion and perihilar edema consistent with CHF. 07/15: Patient is net -1.7 L since admission 07/16-patient's net negative is -1.9 L in 24 hr - Follow echocardiogram ? Continue BUMEX 2 mg BID ? Continue DuoNebs q6h PRN ? Continue BiPAP ? Started home METOPROLOL in setting of CHF exacerbation ? Strict IN & Out's #Acute encephalopathy-resolved #Agitation Likely in setting of acute hypercapnic respiratory failure -Patient was on Precedex drip in ICU downgraded to telemetry after the the drip was discontinued. -Ativan 1 Mg every 8 hours as needed for agitation #Upper vs Lower GI bleed #Duodenal ulcer #Acute blood loss anemia #Normocytic anemia Hg/HCT: 6.0/20.0%, on admission, he received 2 units of PRBC and his hemoglobin today is 8.3 Isolated elevated BUN consistent with upper GI bleed On recent admission, 06/25/2024 patient underwent upper endoscopy which showed small duodenal ulcer in the junction of duodenal bulb and descending duodenum gastritis. -Continue IV Protonix 40 mg BID - Hold NSAIDs, steroids, ASA -Patientmay needs EGD to reassess bleeding site - GI consulted, recommendations as follows: Once patient's respiratory status stabilizes, GoLytely prep and schedule colonoscopy. Agree with the blood transfusion. #Coronary arterial disease s/p stent Patient with known history of coronary artery disease s/p stenting approximately 5 years. Prior records in 10/2023 show that cardiology services recommended the patient be discharged with aspirin and statin. However at discharge during that hospitalization, patient was not discharged with Aspirin. Review of recent medications also show that patient has not been on aspirin. -Will defer starting aspirin at this time due to active GI bleeding. -Will consider consulting cardiology for further recommendations. # Acute hypercapnic respiratory failure #Carbon Dioxide narcosis #Obstuctive sleep apnea #Obesity hypoventilation syndrome #? COPD #Hypercapnic Respiratory failure Patient with history of CAROLYN and OHS. Patient reportedly also has a longstanding smoking history. Patient was found to have elevated CO2 levels with Initial ABG showing 7.29/pCO2 56/HCO3 24. Most likely 2/2 to CAROLYN vs Obesity hypoventilation vs CHF exacerbation. Patient was started on BiPAP to allow for CO2 washout, however patient became agitated and was unable to comply with wearing BiPAP mask, despite receiving a total of Haldol 5 mg x 3 doses. Decision was made to upgrade the patient to ICU for sedation with precedex to allow for BiPAP compliance. 1.26- off bipap and precedex drip -On 4 L of o2 will continue to monitor #History of Pulmonary Embolism Know history of PE with current use of Eliquis for anticoagulation. -Will hold Eliquis at this time due to acute blood loss anemia in setting of GI bleed #Mild transaminitis #Liver cirrhosis History of liver cirrhosis. Mildly elevated AST is on admission. -Continue to monitor with daily CMP -Ceftiraxone 1 gram QDAY as PXP in setting of ? GI bleed and cirrhosis Renal/Genitourinary No active issues as creatinine appears to be at baseline. -Continue to monitor Bun and Creatinine with daily CMP #Hyperphosphatemia Monitor phosphate in a.m. # Uncontrolled IDDM type II A1c 13.6 from 04/2024. GLUCOSE 105 on admission. From last visit, patient has a history of INSULIN noncompliance, refusing INSULIN at times, not adherent with diet. ? Continue INSULIN GLARGINE 20 units BID (home dose 40 HS) - Hold patient's home Diabetes Medications - Patient started on Insulin Sliding scale - ACHS accucheks - Follow up QAM CMP glucose level #Sacral Decubitus Ulcer Patient noted to have an open wound at the gluteal fold above the coccyx. Appears to be a stage 2 ulcer. -Wound care referral. DVT prophylaxis: SCDs GI prophylaxis: Protonix twice daily Diet: Cardiac Lines: Peripheral IV Code status: Full code Discussed the patient with my attending Siria Padgett MD,PGY-3 Attending Provider Attestation/Addendum I reviewed labs, imaging, EKG, home medications and prior available records. Face to face evaluation was performed by me. I have personally examined the patient and discussed assessment and plan with the IM team. I reviewed the resident note and agree with the plan with exceptions as below. Acute hypoxic respiratory failure in the setting of CHF exacerbation Hyperactive agitation CHF exacerbation Acute anemia He is on nasal cannula He is off Precedex drip. Downgraded from ICU Pain management as needed Delirium precautions. Ordered CT head that was negative for acute changes Haloperidol as needed Continue IV Bumex Status post 2 PRBC transfusion. H&H is stable posttransfusion. Consulted GI: Plan for colonoscopy. He has history of small duodenal ulcer found in early June 2024
--- NOTE | 2024-07-16 15:34 | PC.NURSE ---
pt blood pressure 186/107. rechecked 161/103. Informed Dr. Madera. waiting for new orders.
--- NOTE | 2024-07-16 18:12 | ESPR_ITS ---
Documentation for date of: 07/16/24 Subjective Subjective Interval history: Patient evaluated He was scheduled for a colonoscopy but he is not clear Additional GoLytely Procedure rescheduled for tomorrow Exam Vital Signs Temp Pulse Resp BP Pulse Ox O2 Del Method O2 Flow Rate 97.5 F 81 24 H 186/107 H 99 Oxy Mask 4 07/16/24 16:00 07/16/24 16:03 07/16/24 16:00 07/16/24 16:03 07/16/24 16:00 07/16/24 16:00 07/16/24 16:00 FiO2 24 07/16/24 12:00 Objective Labs 07/16/24 06:00 07/16/24 06:00 Labs: Laboratory Results - last 24 hr 07/15/24 07/16/24 03:15 06:00 WBC 9.8 RBC 3.19 L Hgb 8.3 L Hct 27.6 L MCV 87 MCH 26.0 MCHC 30.1 L RDW Std Deviation 49.4 H Plt Count 262 D Neut % (Auto) 75 Lymph % (Auto) 14 [place] % (Auto) 10 Eos % (Auto) 1 Baso % (Auto) 0 Neut # (Auto) 7.3 Lymph # (Auto) 1.3 [place] # (Auto) 0.9 H Eos # (Auto) 0.1 Baso # (Auto) 0.0 Immature Gran # (Auto) 0.05 H Absolute Nucleated RBC 0.00 Immature Gran % 1 H Nucleated RBC % 0 Sodium 141 Potassium 4.1 D Chloride 103 Carbon Dioxide 28.6 Anion Gap 9 BUN 56 H Creatinine 1.0 Estim Creat Clear Calc 112.1 eGFR > 60 BUN/Creatinine Ratio 56 H Glucose 141 H Calculated Osmolality 298 H Calcium 9.3 Corrected Calcium 9.5 Phosphorus 4.7 Magnesium 2.1 Total Bilirubin 0.2 L AST 55 H ALT 33 Alkaline Phosphatase 169 H D Total Protein 7.7 Albumin 3.8 Globulin 3.9 H Albumin/Globulin Ratio 1.0 L Vitamin B12 999 H Folate > 24.00 Impressions Impression: # Acute posthemorrhagic anemia requiring blood transfusion Additional GoLytely Colonoscopy tomorrow ABG Interpretation ABG results: 07/14/24 07/15/24 07/15/24 16:37 00:44 03:54 ABG pH 7.29 L 7.31 L 7.32 L ABG pCO2 56 H 54 H 53 H ABG pO2 152 H 50 L* D 122 H D ABG HCO3 27 H 28 H 27 H ABG O2 Saturation 99 H 81 L 99 H ABG Base Excess 1 1 1 07/15/24 14:45 ABG pH 7.40 ABG pCO2 45 ABG pO2 74 L D ABG HCO3 27 H ABG O2 Saturation 95 ABG Base Excess 2 Assessment & Plan A&P Narrative # Anemia blood loss requiring blood transfusion Once patient's respiratory status stabilizes GoLytely prep and schedule colonoscopy Agree with the blood transfusion Other medical problems include # Acute hypoxic respiratory failure requiring BiPAP # CAROLYN # History congestive heart failure # CVA requiring bilateral endarterectomy IDDM # Pulmonary embolism on Eliquis Thank you very much for the opportunity to participate in the care of this patient Time Spent With Patient Time: Total time spent is greater than 50% in coordination of care (as documented) at patient's floor/unit and/or counseling patient:
[2024-07-16] MEDS: ATORVASTATIN CALCIUM 20 MG TABLET 80 MG PO (20:49)
[2024-07-17] VITALS (22 sets, daily range): BP systolic 109–173; BP diastolic 80–96; PULSE 84–98; RESP 18–28; TEMP 36.2–36.6; O2SAT 93–100; BMI 48.8
[2024-07-17] MEDS: MORPHINE SULF INJ 10 MG/ML VIAL 2 MG IVP ×5 (00:10→18:12)
[2024-07-17] MEDS: LORazepam 2 MG/ML VIAL 1 MG IVP (01:52)
[2024-07-17] MEDS: ALBUTEROL/IPRATROPIUM (Duoneb) RT SOL 3 ML NEBU INH ×5 (03:25→23:15)
[2024-07-17 06:45] LABS: Basophils % (Auto) 0 % (0-2.5); Eosinophils # (Auto) 0.3 Thou/mm3 (0.0-0.5); Eosinophils % (Auto) 3 % (0-10); Hematocrit 27.8 % (41.0-53.0); Immature Granulocytes % (Auto) 1 % (0-0); Immature Granulocytes Auto 0.06 Thou/mm3 (0.00-0.00); Lymphocytes # (Auto) 0.7 Thou/mm3 (1.0-4.8); Lymphocytes % (Auto) 9 % (10-50); Mean Corpuscular HGB Conc 29.9 g/dl (31.0-37.0); Mean Corpuscular Volume 87 fL (80-100); Monocytes # (Auto) 0.9 Thou/mm3 (0.0-0.8); Monocytes % (Auto) 11 % (0-12); Neutrophils # (Auto) 6.5 Thou/mm3 (1.8-7.7); Neutrophils % (Auto) 76 % (37-80); Nucleated Red Blood Cell % 0 /100 WBC (0); Platelet Count 258 Thou/mm3 (140-440); RDW Standard Deviation 49.9 fL (35.1-43.9); Red Blood Count 3.19 Miln/mm3 (4.50-5.90); White Blood Count 8.5 Thou/mm3 (3.8-10.6)
[2024-07-17 06:54] LABS: Hemoglobin 8.3 g/dL (13.5-16.0)
[2024-07-17 07:07] LABS: Alanine Aminotransferase 38 U/L (10-49); Albumin, Serum 3.8 gm/dL (3.5-5.0); Alkaline Phosphatase 158 U/L (46-116); Anion Gap 11 (7-16); Aspartate Amino Transferase 62 U/L (0-34); BUN/Creatinine Ratio 53 Ratio (12-20); Bilirubin,Total 0.3 mg/dL (0.3-1.2); Blood Urea Nitrogen 42 mg/dL (9-23); Calcium 9.1 mg/dL (8.3-10.6); Calcium (Corrected) 9.3 mg/dL (8.5-10.1); Chloride 103 mMol/L (98-107); Creatinine (Component) 0.8 mg/dL (0.6-1.3); Estimated Creatinine Clearance 140.1 mL/min (>60); Globulin 3.9 gm/dL (2.3-3.5); Glucose 61 mg/dL (74-106); Magnesium 1.8 mg/dL (1.6-2.6); Osmolality,Calculated 295 (275-295); Phosphorous 3.9 mg/dL (2.4-5.1); Potassium 3.6 mMol/L (3.4-5.1); Sodium 144 mMol/L (136-145); Total Protein 7.7 gm/dL (5.7-8.2); eGFR > 60 See Note
[2024-07-17] MEDS: DEXTROSE 50%-WATER INJ 50 ML SYRINGE IV (08:01)
[2024-07-17] MEDS: amLODIPine BESYLATE 5 MG TABLET 10 MG PO (09:37)
[2024-07-17] MEDS: cefTRIAXone/D5w 1gm IV premix 50 ML IV (09:37)
[2024-07-17] MEDS: BUMETANIDE INJ 0.25 MG/ML VIAL 4 ML 2 MG IVP ×2 (09:37→20:15)
[2024-07-17] MEDS: PANTOPRAZOLE INJ 40 MG VIAL IVP ×2 (09:38→20:13)
[2024-07-17] MEDS: LOSARTAN POTASSIUM 25 MG TABLET 100 MG PO (09:39)
--- NOTE | 2024-07-17 11:23 | PD.RESPRO ---
Documentation for date of: 07/17/24 Subjective Subjective Interval history: patient was examined bedside this morning, he was mildly anxious. updated his in phone about his health . pending colonoscopy Exam Vital Signs Temp Pulse Resp BP Pulse Ox O2 Del Method O2 Flow Rate 97.1 F 94 18 135/94 H 99 Nasal Cannula 4 07/17/24 08:18 07/17/24 10:05 07/17/24 10:05 07/17/24 09:39 07/17/24 10:05 07/17/24 08:18 07/17/24 10:05 FiO2 24 07/17/24 04:00 Narrative Exam GENERAL: Morbidly obese man, mildly anxious on 4 L of oxygen via nasal cannula HEENT: Normocephalic, atraumatic. Pupils are equal and reactive. Oral mucosa is moist. NECK: Supple, nontender, no JVD CHEST: Symmetrical, atraumatic and with equal expansion ,Nontender on palpation CARDIOVASCULAR: Heart regular rhythm & rate. S1/S2. no murmur or gallop rub or extra beats. LUNGS: Clear to auscultation bilaterally with symmetrical chest rise. No laboring tachypnea or wheezing. No intercostal subcostal retraction. No rales and no rhonchi. ABDOMEN: Soft, flat, nontender to palpation, no guarding or rebound tenderness. Active and normal bowel sounds. EXTREMITIES:Moves all 4 extremities, SKIN: Warm and dry, no jaundice or rashes noted. NEURO: Patient is AO x 3, Cranial nerves II through XII grossly intact. There is no focal neurologic deficits noted. PSYCHIATRIC: Patient is in normal mood, cooperative, no SI or HI or hallucinations. Objective Labs 07/17/24 05:19 07/17/24 05:19 Labs: Laboratory Results - last 24 hr 07/17/24 05:19 WBC 8.5 RBC 3.19 L Hgb 8.3 L Hct 27.8 L MCV 87 MCH 26.0 MCHC 29.9 L RDW Std Deviation 49.9 H Plt Count 258 Neut % (Auto) 76 Lymph % (Auto) 9 L [place] % (Auto) 11 Eos % (Auto) 3 Baso % (Auto) 0 Neut # (Auto) 6.5 Lymph # (Auto) 0.7 L [place] # (Auto) 0.9 H Eos # (Auto) 0.3 Baso # (Auto) 0.0 Immature Gran # (Auto) 0.06 H Absolute Nucleated RBC 0.00 Immature Gran % 1 H Nucleated RBC % 0 Sodium 144 Potassium 3.6 D Chloride 103 Carbon Dioxide 30.0 Anion Gap 11 BUN 42 H Creatinine 0.8 Estim Creat Clear Calc 140.1 eGFR > 60 BUN/Creatinine Ratio 53 H Glucose 61 L D Calculated Osmolality 295 Calcium 9.1 Corrected Calcium 9.3 Phosphorus 3.9 Magnesium 1.8 Total Bilirubin 0.3 AST 62 H ALT 38 Alkaline Phosphatase 158 H Total Protein 7.7 Albumin 3.8 Globulin 3.9 H Albumin/Globulin Ratio 1.0 L ABG Interpretation ABG results: 07/14/24 07/15/24 07/15/24 16:37 00:44 03:54 ABG pH 7.29 L 7.31 L 7.32 L ABG pCO2 56 H 54 H 53 H ABG pO2 152 H 50 L* D 122 H D ABG HCO3 27 H 28 H 27 H ABG O2 Saturation 99 H 81 L 99 H ABG Base Excess 1 1 1 07/15/24 14:45 ABG pH 7.40 ABG pCO2 45 ABG pO2 74 L D ABG HCO3 27 H ABG O2 Saturation 95 ABG Base Excess 2 Quality Measures Quality Measures none Assessment & Plan Assessment Current Active Medications: Generic Name Dose Route Start Last Admin Trade Name Freq PRN Reason Stop Dose Admin Acetaminophen 650 mg 07/14/24 16:29 Acetaminophen 325 Mg Tablet PO 08/13/24 16:28 Q6H PRN PAIN SCALE 1-3 (mild Acetaminophen 650 mg 07/14/24 16:29 Acetaminophen 325 Mg Tablet PO 08/13/24 16:28 Q6H PRN Fever >100 Hydrocodone Bitart/Acetaminophen 1 tab 07/14/24 16:29 07/16/24 15:06 Hydrocodone/Apap 10/325 Tab PO 07/19/24 16:28 1 tab Q4HR PRN Administration PAIN SCALE 7-10 (Severe Albuterol/Ipratropium 3 ml 07/14/24 19:00 07/17/24 10:04 Albuterol/Ipratropium (Duoneb) Rt Radha 3 Ml Nebu INH 08/13/24 18:59 3 ml Q4HRRT RINA Administration Amlodipine Besylate 10 mg 07/17/24 09:00 07/17/24 09:37 Amlodipine Besylate 5 Mg Tablet PO 08/16/24 08:59 10 mg QDAY RINA Administration Atorvastatin Calcium 80 mg 07/14/24 21:00 07/16/24 20:49 Atorvastatin Calcium 20 Mg Tablet PO 08/13/24 20:59 80 mg HS RINA Administration Bumetanide 2 mg 07/14/24 21:00 07/17/24 09:37 Bumetanide Inj 0.25 Mg/Ml Vial 4 Ml IVP 08/13/24 20:59 2 mg BID RINA Administration Dextrose 25 ml 07/14/24 16:31 Dextrose 50%-Water Inj 50 Ml Syringe IV 08/13/24 16:30 Q15MIN PRN BG 50-70 responsive npo pt Dextrose 50 ml 07/14/24 16:31 Dextrose 50%-Water Inj 50 Ml Syringe IV 08/13/24 16:30 Q15MIN PRN BG <50 OR BG <70 & pt unresponsive Glucagon 1 mg 07/14/24 16:31 Glucagon Inj 1 Mg Vial IM Q15MIN PRN BG <70, and no IV access Ceftriaxone Sodium/Dextrose 50 mls @ 100 mls/hr 07/14/24 17:07 07/17/24 09:37 Rocephin/D5w 1gm Iv Premix IV 07/21/24 17:06 100 mls/hr QDAY RINA Administration Insulin Glargine 20 unit 07/14/24 21:00 07/17/24 09:36 Insulin Glargine (Lantus) 5 Unit/0.05 Ml (Per 5 Units) SC 08/13/24 20:59 Not Given BID RINA Insulin Human Lispro 0 unit 07/14/24 17:00 07/17/24 07:56 Insulin Lispro (Admelog) 1 Unit/0.01 Ml Unit SC 08/13/24 16:59 Not Given ACHS RINA Protocol Lorazepam 1 mg 07/16/24 14:44 07/17/24 01:52 Lorazepam 2 Mg/Ml Vial IVP 07/21/24 14:43 1 mg Q8HR PRN Administration ANXIETY Losartan Potassium 100 mg 07/17/24 09:00 07/17/24 09:39 Losartan Potassium 25 Mg Tablet PO 08/16/24 08:59 100 mg QDAY RINA Administration Morphine Sulfate 2 mg 07/14/24 19:53 07/17/24 10:26 Morphine Sulf Inj 10 Mg/Ml Vial IVP 07/19/24 19:52 2 mg Q4HR PRN Administration BREAKTHROUGH PAIN 4-10 Ondansetron HCl 4 mg 07/14/24 16:29 Ondansetron Inj 2 Mg/Ml Inj 2 Ml IV 08/13/24 16:28 Q6H PRN NAUSEA OR VOMITING Protocol Oxycodone/Acetaminophen 1 tab 07/14/24 16:29 Oxycodone/Apap 5/325 Tablet PO 07/19/24 16:28 Q6H PRN PAIN SCALE 4-6 (Moderate Pantoprazole Sodium 40 mg 07/15/24 09:00 07/17/24 09:38 Pantoprazole Inj 40 Mg Vial IVP 08/14/24 08:59 40 mg BID RINA Administration Sodium Chloride 3 ml 07/14/24 12:01 07/14/24 12:11 Sodium Chloride Rt Radha 0.9% 3 Ml Nebu INH 08/13/24 12:00 3 ml PRN PRN Administration SOLN Plan Mr. Mekhi Fisher is a 54-year-old gentleman with past medical history of HFpEF(EF 55-60% 04/24/2024), coronary artery disease s/p stent 5 years ago, IDDM, CVA, carotid artery stenosis s/p bilateral endarterectomy 2018, pulmonary embolism on ELIIS, hypertension, obstructive sleep apnea, cirrhosis, history of vertebral hemangioma s/p radiation therapy who presented to the ED on 07/14/2024 with a chief complaint of shortness of breath. Due to the patient being agitated at the time of initial evaluation, history was obtained through chart review. Apparently the patient presented to the ED via EMS from [facility] to to acute onset SOB with oxygen desaturation to 87% whilst on 3L of supplemental oxygen. Per nursing staff at the facility, the patient had been refusing his lasix and had a significant amount weight gain in recent days. Patient's PCP recommended the patient be taken to the ED due to concern for volume overload. En route to the the ED, patient was administered 3 sublingual Nitroglycerin tablets and 2 Nitro paste was applied to his chest. # Acute hypercapnic respiratory failure #Carbon Dioxide narcosis #Obstuctive sleep apnea #Obesity hypoventilation syndrome #? COPD #Hypercapnic Respiratory failure Patient with history of CAROLYN and OHS. Patient reportedly also has a longstanding smoking history. Patient was found to have elevated CO2 levels with Initial ABG showing 7.29/pCO2 56/HCO3 24. Most likely 2/2 to CAROLYN vs Obesity hypoventilation vs CHF exacerbation. Patient was started on BiPAP to allow for CO2 washout, however patient became agitated and was unable to comply with wearing BiPAP mask, despite receiving a total of Haldol 5 mg x 3 doses. Decision was made to upgrade the patient to ICU for sedation with precedex to allow for BiPAP compliance. 1.- off bipap and precedex drip -On 4 L of o2 -will continue to monitor #CHF exacerbation #HFpEF EF 55-60% 04/2024 -Patient with known history of Heart failure with reduced ejection fraction. Per nursing facilty, patient has been non-compliant with diuresis leading to fluid overload and Previous Echo report 04/24/2024: Normal LV size and function. Mild LVH. Grade I diastolic dsyfunction. Estimated EF 55-60%. Mild RV dilation. Normal RV function. Mild bi-atrial dilation. Trace MR, TR. Mild AV sclerosis without stenosis. There is a small circumferential pericardial effusion. No evidence of cardiac tamponade. BNP on admission: 539 Patient states he is not taking his LASIX. Physical exam notable for B/L 2+ lower extremity edema after diuresis, Bibasilar crackles CXR: enlargement of the cardiac contour with significant B/L vascular congestion and perihilar edema consistent with CHF. 07/15: Patient is net -1.7 L since admission 07/16-patient's net negative is -1.9 L in 24 hr 07/17- patient is negative 0.7 L in 24 hr - Follow echocardiogram ? Continue BUMEX 2 mg BID ? Continue DuoNebs q6h PRN ? Continue BiPAP ? Started home METOPROLOL ? Strict IN & Out's #Upper vs Lower GI bleed #Duodenal ulcer #Acute blood loss anemia #Normocytic anemia Hg/HCT: 6.0/20.0%, on admission, he received 2 units of PRBC and his hemoglobin today is 8.3 Isolated elevated BUN consistent with upper GI bleed On recent admission, 06/25/2024 patient underwent upper endoscopy which showed small duodenal ulcer in the junction of duodenal bulb and descending duodenum gastritis. -Continue IV Protonix 40 mg BID - Hold NSAIDs, steroids, ASA -Patient may needs EGD to reassess bleeding site - GI consulted, recommendations as follows: colonoscopy today #Acute encephalopathy-resolved #Agitation Likely in setting of acute hypercapnic respiratory failure -Patient was on Precedex drip in ICU downgraded to telemetry after the the drip was discontinued. -Ativan 1 Mg every 8 hours as needed for agitation #Coronary arterial disease s/p stent Patient with known history of coronary artery disease s/p stenting approximately 5 years. Prior records in 10/2023 show that cardiology services recommended the patient be discharged with aspirin and statin. However at discharge during that hospitalization, patient was not discharged with Aspirin. Review of recent medications also show that patient has not been on aspirin. -Will defer starting aspirin at this time due to active GI bleeding. -Will consider consulting cardiology for further recommendations. #History of Pulmonary Embolism Know history of PE with current use of Eliquis for anticoagulation. -Will hold Eliquis at this time due to acute blood loss anemia in setting of GI bleed #Mild transaminitis #Liver cirrhosis History of liver cirrhosis. Mildly elevated AST is on admission. -Continue to monitor with daily CMP -Ceftiraxone 1 gram QDAY as PXP in setting of ? GI bleed and cirrhosis Renal/Genitourinary No active issues as creatinine appears to be at baseline. -Continue to monitor Bun and Creatinine with daily CMP #Hyperphosphatemia Monitor phosphate in a.m. # Uncontrolled IDDM type II A1c 13.6 from 04/2024. GLUCOSE 105 on admission. From last visit, patient has a history of INSULIN noncompliance, refusing INSULIN at times, not adherent with diet. ? Continue INSULIN GLARGINE 20 units BID (home dose 40 HS) - Hold patient's home Diabetes Medications - Patient started on Insulin Sliding scale - ACHS accucheks - Follow up QAM CMP glucose level #Sacral Decubitus Ulcer Patient noted to have an open wound at the gluteal fold above the coccyx. Appears to be a stage 2 ulcer. -Wound care referral. DVT prophylaxis: SCDs GI prophylaxis: Protonix twice daily Diet: Cardiac Lines: Peripheral IV Code status: Full code Discussed the patient with my attending Siria Padgett MD,PGY-3 Attending Provider Attestation/Addendum I reviewed labs, imaging, EKG, home medications and prior available records. Face to face evaluation was performed by me. I have personally examined the patient and discussed assessment and plan with the IM team. I reviewed the resident note and agree with the plan with exceptions as below. Acute hypoxic respiratory failure in the setting of CHF exacerbation Hyperactive agitation CHF exacerbation Acute anemia He is on nasal cannula Patient developed hypertensive urgency: Obtain EKG. Ordered ABG. Started BiPAP He is off Precedex drip. Downgraded from ICU Pain management as needed Delirium precautions. Ordered CT head that was negative for acute changes Haloperidol as needed Continue IV Bumex Status post 2 PRBC transfusion. H&H is stable posttransfusion. Consulted GI: Plan for colonoscopy. He has history of small duodenal ulcer found in early June 2024
--- NOTE | 2024-07-17 12:31 | EKG_ITS ---
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 : 1970 Requested By: Siria Dimas Order Number: [id number] Reading MD: Siria Dimas Measurements Intervals [place] Rate: 89 P: 60 AL: 159 QRS: -48 QRSD: 99 T: 31 QT: 370 QTc: 451 Interpretive Statements SINUS RHYTHM PATTERN CONSISTENT WITH PULMONARY DISEASE INFERIOR MYOCARDIAL INFARCTION , PROBABLY OLD [40+ ms Q WAVE AND/OR ST/T ABNORMALITY IN II/aVF] Compared to ECG 07/14/2024 18:50:00 Myocardial infarct finding now present Ventricular premature complex(es) no longer present First degree AV block no longer present Left-axis deviation no longer present ST (T wave) deviation no longer present /store/S0/[id number].pdf
[2024-07-17 12:59] LABS: Base Excess 6 (-3-3); HCO3 33 mEq/L (20-26); Inspired O2, VO2 Liters 5 L/min; O2 Saturation 99 % (91-98); PCO2 58 mmHg (32.0-48.0); PO2 109 mmHg (83-108); pH, Arterial 7.36 (7.35-7.45)
[2024-07-17 13:00] LABS: Allen Test Performed/OK; Puncture Site Right Radial
--- NOTE | 2024-07-17 13:05 | PC.NURSE ---
pt. has a labetalol order the BP before giving the labatelol check is 143/92. MD aware and order to hold it at this moment.
--- NOTE | 2024-07-17 13:30 | PC.NURSE ---
pt. been refusing putting bipap. and complaining of headache throbbing headache. Dr. Alvarenga been updated and came on bedside checking pt.
--- NOTE | 2024-07-17 13:58 | PD.RESEVENT ---
Documentation for date of: 07/17/24 Event Note Event Note: Rapid response was called around 1215 for high blood pressure, his blood pressure was around 220 / 120. Stat EKG and 10 of IV labetalol was ordered with stat ABG and starting of BiPAP. He was also complaining of 10 out of 10 pain so 2 Mg of IV morphine was given. After 5 minutes the recheck blood pressure was 145 90. So we held the IV labetalol. Patient is refusing BiPAP at this point. ABG came back with pH 7.36, pCO2 58, pO2 109. At the end of the rapid his vitals were stable. Saturating well on 4 L of oxygen and sleeping comfortably in bed. Case discussed with my attending Dr. Parada, Siria Dimas MD,PGY-3
--- NOTE | 2024-07-17 14:25 | PC.NURSE ---
Addendum entered by Andressa Florez RN 07/17/24 14:29: justa called at the 12:28 Original Note: Pt. BP. in prone 190/92. The with position change again took vitals with semifolower bp 208/103. Call the Rapid on the pt.
[2024-07-17] MEDS: COLLAGENASE OINT 30 GM TUBE TOP (20:16)
[2024-07-17] MEDS: ATORVASTATIN CALCIUM 20 MG TABLET 80 MG PO (20:16)
--- NOTE | 2024-07-17 21:56 | PD.IMPROG ---
Documentation for date of: 07/17/24 Subjective Subjective Interval history: Patient had a rapid response called and He is on 5 L nasal cannula He refused BiPAP I canceled the colonoscopy for today Clear liquid diet Reevaluation of respiratory status in the morning before scheduling another colonoscopy Exam Vital Signs Temp Pulse Resp BP Pulse Ox O2 Del Method O2 Flow Rate 97.5 F 90 23 H 168/92 H 96 Nasal Cannula 3 07/17/24 19:49 07/17/24 20:15 07/17/24 19:49 07/17/24 20:15 07/17/24 19:49 07/17/24 19:49 07/17/24 19:49 FiO2 100 07/17/24 14:58 Objective Labs 07/17/24 05:19 07/17/24 05:19 Labs: Laboratory Results - last 24 hr 07/17/24 07/17/24 05:19 12:51 WBC 8.5 RBC 3.19 L Hgb 8.3 L Hct 27.8 L MCV 87 MCH 26.0 MCHC 29.9 L RDW Std Deviation 49.9 H Plt Count 258 Neut % (Auto) 76 Lymph % (Auto) 9 L [place] % (Auto) 11 Eos % (Auto) 3 Baso % (Auto) 0 Neut # (Auto) 6.5 Lymph # (Auto) 0.7 L [place] # (Auto) 0.9 H Eos # (Auto) 0.3 Baso # (Auto) 0.0 Immature Gran # (Auto) 0.06 H Absolute Nucleated RBC 0.00 Immature Gran % 1 H Nucleated RBC % 0 Puncture Site Right Radial ABG pH 7.36 ABG pCO2 58 H D ABG pO2 109 H D ABG HCO3 33 H ABG O2 Saturation 99 H ABG Base Excess 6 H Oxygen Liter Flow 5 Sodium 144 Potassium 3.6 D Chloride 103 Carbon Dioxide 30.0 Anion Gap 11 BUN 42 H Creatinine 0.8 Estim Creat Clear Calc 140.1 eGFR > 60 BUN/Creatinine Ratio 53 H Glucose 61 L D Calculated Osmolality 295 Calcium 9.1 Corrected Calcium 9.3 Phosphorus 3.9 Magnesium 1.8 Total Bilirubin 0.3 AST 62 H ALT 38 Alkaline Phosphatase 158 H Total Protein 7.7 Albumin 3.8 Globulin 3.9 H Albumin/Globulin Ratio 1.0 L Impressions Impression: # Anemia blood loss Reschedule the colonoscopy because the respiratory status ABG Interpretation ABG results: 07/14/24 07/15/24 07/15/24 16:37 00:44 03:54 ABG pH 7.29 L 7.31 L 7.32 L ABG pCO2 56 H 54 H 53 H ABG pO2 152 H 50 L* D 122 H D ABG HCO3 27 H 28 H 27 H ABG O2 Saturation 99 H 81 L 99 H ABG Base Excess 1 1 1 07/15/24 07/17/24 14:45 12:51 ABG pH 7.40 7.36 ABG pCO2 45 58 H D ABG pO2 74 L D 109 H D ABG HCO3 27 H 33 H ABG O2 Saturation 95 99 H ABG Base Excess 2 6 H Assessment & Plan A&P Narrative # Anemia blood loss requiring blood transfusion Once patient's respiratory status stabilizes GoLytely prep and schedule colonoscopy Agree with the blood transfusion Other medical problems include # Acute hypoxic respiratory failure requiring BiPAP # CAROLYN # History congestive heart failure # CVA requiring bilateral endarterectomy IDDM # Pulmonary embolism on Eliquis Thank you very much for the opportunity to participate in the care of this patient Time Spent With Patient Time: Total time spent is greater than 50% in coordination of care (as documented) at patient's floor/unit and/or counseling patient:
[2024-07-18] VITALS (26 sets, daily range): BP systolic 128–178; BP diastolic 68–115; PULSE 63–728; RESP 12–232; TEMP 36.2–36.5; O2SAT 91–100
[2024-07-18] MEDS: MORPHINE SULF INJ 10 MG/ML VIAL 2 MG IVP ×2 (00:55→11:52)
--- NOTE | 2024-07-18 01:40 | PC.NURSE ---
Pt refusing workers compensation coordinator. Dr. Fonseca was made aware. Okay per to leave pt off the workers compensation coordinator for now so pt can sleep, resume workers compensation coordinator in the morning once pt wakes up.
[2024-07-18] MEDS: LORazepam 2 MG/ML VIAL 1 MG IVP (05:30)
[2024-07-18] MEDS: LORazepam 2 MG/ML VIAL 1 MG IV (06:36)
--- NOTE | 2024-07-18 07:07 | PC.NURSE ---
dayshift nurse was made aware that pt is off the patient monitor since 0140 am and that he must be on patient monitor in the morning upon waking up.
--- NOTE | 2024-07-18 09:00 | PC.NURSE ---
[facility] 0100 [facility] 0700.
[2024-07-18 09:04] LABS: Base Excess 5 (-3-3); HCO3 32 mEq/L (20-26); O2 Saturation 93 % (91-98); PCO2 60 mmHg (32.0-48.0); PO2 72 mmHg (83-108); pH, Arterial 7.33 (7.35-7.45)
[2024-07-18 09:09] LABS: Allen Test Not Performed; Inspired O2, VO2 Liters 3 L/min; Puncture Site Right Radial
[2024-07-18] MEDS: BUMETANIDE INJ 0.25 MG/ML VIAL 4 ML 2 MG IVP ×2 (09:53→20:08)
[2024-07-18] MEDS: LOSARTAN POTASSIUM 25 MG TABLET 100 MG PO (09:54)
[2024-07-18] MEDS: amLODIPine BESYLATE 5 MG TABLET 10 MG PO (09:54)
[2024-07-18] MEDS: METOPROLOL SUCCINATE XL 25 MG TABCR 100 MG PO (09:55)
[2024-07-18] MEDS: cefTRIAXone/D5w 1gm IV premix 50 ML IV (09:55)
[2024-07-18] MEDS: PANTOPRAZOLE INJ 40 MG VIAL IVP ×2 (09:55→20:09)
[2024-07-18 10:35] LABS: Basophils % (Auto) 0 % (0-2.5); Eosinophils # (Auto) 0.2 Thou/mm3 (0.0-0.5); Eosinophils % (Auto) 3 % (0-10); Hematocrit 29.1 % (41.0-53.0); Immature Granulocytes % (Auto) 1 % (0-0); Immature Granulocytes Auto 0.05 Thou/mm3 (0.00-0.00); Lymphocytes # (Auto) 0.8 Thou/mm3 (1.0-4.8); Lymphocytes % (Auto) 10 % (10-50); Mean Corpuscular HGB Conc 29.9 g/dl (31.0-37.0); Mean Corpuscular Hemoglobin 25.7 pg (25.0-35.0); Mean Corpuscular Volume 86 fL (80-100); Monocytes # (Auto) 0.6 Thou/mm3 (0.0-0.8); Monocytes % (Auto) 8 % (0-12); Neutrophils # (Auto) 5.9 Thou/mm3 (1.8-7.7); Neutrophils % (Auto) 78 % (37-80); Nucleated Red Blood Cell % 0 /100 WBC (0); Platelet Count 282 Thou/mm3 (140-440); RDW Standard Deviation 49.3 fL (35.1-43.9); Red Blood Count 3.39 Miln/mm3 (4.50-5.90); White Blood Count 7.6 Thou/mm3 (3.8-10.6)
[2024-07-18 10:52] LABS: Alanine Aminotransferase 36 U/L (10-49); Albumin, Serum 3.8 gm/dL (3.5-5.0); Alkaline Phosphatase 145 U/L (46-116); Anion Gap 10 (7-16); Aspartate Amino Transferase 68 U/L (0-34); BUN/Creatinine Ratio 38 Ratio (12-20); Bilirubin,Total 0.3 mg/dL (0.3-1.2); Blood Urea Nitrogen 30 mg/dL (9-23); Calcium 9.5 mg/dL (8.3-10.6); Calcium (Corrected) 9.7 mg/dL (8.5-10.1); Carbon Dioxide 29.1 mMol/L (20.0-31.0); Chloride 102 mMol/L (98-107); Creatinine (Component) 0.8 mg/dL (0.6-1.3); Estimated Creatinine Clearance 138.1 mL/min (>60); Globulin 3.9 gm/dL (2.3-3.5); Glucose 73 mg/dL (74-106); Magnesium 1.8 mg/dL (1.6-2.6); Osmolality,Calculated 286 (275-295); Phosphorous 3.5 mg/dL (2.4-5.1); Potassium 3.8 mMol/L (3.4-5.1); Sodium 141 mMol/L (136-145); Total Protein 7.7 gm/dL (5.7-8.2); eGFR > 60 See Note
[2024-07-18 11:07] LABS: Hemoglobin 8.7 g/dL (13.5-16.0)
--- NOTE | 2024-07-18 15:52 | ESPR_ITS ---
Documentation for date of: 07/18/24 Subjective Subjective Interval history: Overnight events: The patient was agitated overnight, and was given 1 mg IV Ativan. P.m. Lantus was held because of blood sugar in 80s. The patient was somnolent this morning, and was alert and oriented x 1, to himself only. He was placed back on BiPAP. Later, he was alert and oriented to person, place and date of . He complained of back pain, and was given IV morphine 0.5 Mg x 1. Exam Vital Signs Temp Pulse Resp BP Pulse Ox O2 Del Method O2 Flow Rate 97.1 F 87 17 135/105 H 94 L Nasal Cannula 4 07/18/24 12:00 07/18/24 12:00 07/18/24 12:00 07/18/24 12:00 07/18/24 12:00 07/18/24 08:00 07/18/24 11:07 FiO2 100 07/18/24 08:00 Narrative Exam General: Morbidly obese gentleman, no acute distress, Alert and Oriented x 3, to person place and date of . HEENT: Moist mucous membranes, oropharynx clear Neck: Supple, No masses, No JVD CVS: S1S2 Regular rate and rhythm, No murmurs, rubs or gallops Lungs: Clear to auscultation with no accessory use, no wheeze no rhonchi Abd: Soft, NT/ND, +BS, no organomegaly Ext: No edema, warm and well perfused Skin: No rash, wound at lower back Psych: Appropriate mood and affect, but often get agitated Objective Labs 07/19/24 05:27 07/19/24 05:27 Labs: Laboratory Results - last 24 hr 07/18/24 07/18/24 08:57 09:45 WBC 7.6 RBC 3.39 L Hgb 8.7 L Hct 29.1 L MCV 86 MCH 25.7 MCHC 29.9 L RDW Std Deviation 49.3 H Plt Count 282 Neut % (Auto) 78 Lymph % (Auto) 10 [place] % (Auto) 8 Eos % (Auto) 3 Baso % (Auto) 0 Neut # (Auto) 5.9 Lymph # (Auto) 0.8 L [place] # (Auto) 0.6 Eos # (Auto) 0.2 Baso # (Auto) 0.0 Immature Gran # (Auto) 0.05 H Absolute Nucleated RBC 0.00 Immature Gran % 1 H Nucleated RBC % 0 Puncture Site Right Radial ABG pH 7.33 L ABG pCO2 60 H ABG pO2 72 L D ABG HCO3 32 H ABG O2 Saturation 93 ABG Base Excess 5 H Oxygen Liter Flow 3 Sodium 141 Potassium 3.8 Chloride 102 Carbon Dioxide 29.1 Anion Gap 10 BUN 30 H Creatinine 0.8 Estim Creat Clear Calc 138.1 eGFR > 60 BUN/Creatinine Ratio 38 H Glucose 73 L Calculated Osmolality 286 Calcium 9.5 Corrected Calcium 9.7 Phosphorus 3.5 Magnesium 1.8 Total Bilirubin 0.3 AST 68 H ALT 36 Alkaline Phosphatase 145 H Total Protein 7.7 Albumin 3.8 Globulin 3.9 H Albumin/Globulin Ratio 1.0 L ABG Interpretation ABG results: 07/14/24 07/15/24 07/15/24 16:37 00:44 03:54 ABG pH 7.29 L 7.31 L 7.32 L ABG pCO2 56 H 54 H 53 H ABG pO2 152 H 50 L* D 122 H D ABG HCO3 27 H 28 H 27 H ABG O2 Saturation 99 H 81 L 99 H ABG Base Excess 1 1 1 07/15/24 07/17/24 07/18/24 14:45 12:51 08:57 ABG pH 7.40 7.36 7.33 L ABG pCO2 45 58 H D 60 H ABG pO2 74 L D 109 H D 72 L D ABG HCO3 27 H 33 H 32 H ABG O2 Saturation 95 99 H 93 ABG Base Excess 2 6 H 5 H Quality Measures Quality Measures none Assessment & Plan Assessment Current Active Medications: Generic Name Dose Route Start Last Admin Trade Name Freq PRN Reason Stop Dose Admin Acetaminophen 650 mg 07/14/24 16:29 Acetaminophen 325 Mg Tablet PO 08/13/24 16:28 Q6H PRN PAIN SCALE 1-3 (mild Acetaminophen 650 mg 07/14/24 16:29 Acetaminophen 325 Mg Tablet PO 08/13/24 16:28 Q6H PRN Fever >100 Hydrocodone Bitart/Acetaminophen 1 tab 07/14/24 16:29 07/16/24 15:06 Hydrocodone/Apap 10/325 Tab PO 07/19/24 16:28 1 tab Q4HR PRN Administration PAIN SCALE 7-10 (Severe Albuterol/Ipratropium 3 ml 07/18/24 11:40 Albuterol/Ipratropium (Duoneb) Rt Radha 3 Ml Nebu INH 08/13/24 18:59 Q4HRRT PRN SHORTNESS OF BREATH Amlodipine Besylate 10 mg 07/17/24 09:00 07/18/24 09:54 Amlodipine Besylate 5 Mg Tablet PO 08/16/24 08:59 10 mg QDAY RINA Administration Atorvastatin Calcium 80 mg 07/14/24 21:00 07/17/24 20:16 Atorvastatin Calcium 20 Mg Tablet PO 08/13/24 20:59 80 mg HS RINA Administration Bumetanide 2 mg 07/14/24 21:00 07/18/24 09:53 Bumetanide Inj 0.25 Mg/Ml Vial 4 Ml IVP 08/13/24 20:59 2 mg BID RINA Administration Collagenase 0 gm 07/17/24 21:00 07/17/24 20:16 Collagenase Oint 30 Gm Tube TOP 08/16/24 20:59 1 applicatio HS RINA Administration Dextrose 25 ml 07/14/24 16:31 Dextrose 50%-Water Inj 50 Ml Syringe IV 08/13/24 16:30 Q15MIN PRN BG 50-70 responsive npo pt Dextrose 50 ml 07/14/24 16:31 Dextrose 50%-Water Inj 50 Ml Syringe IV 08/13/24 16:30 Q15MIN PRN BG <50 OR BG <70 & pt unresponsive Glucagon 1 mg 07/14/24 16:31 Glucagon Inj 1 Mg Vial IM Q15MIN PRN BG <70, and no IV access Ceftriaxone Sodium/Dextrose 50 mls @ 100 mls/hr 07/14/24 17:07 07/18/24 09:55 Rocephin/D5w 1gm Iv Premix IV 07/21/24 17:06 100 mls/hr QDAY RINA Administration Insulin Glargine 20 unit 07/14/24 21:00 07/17/24 09:36 Insulin Glargine (Lantus) 5 Unit/0.05 Ml (Per 5 Units) SC 08/13/24 20:59 Not Given BID RINA Insulin Human Lispro 0 unit 07/14/24 17:00 07/18/24 11:22 Insulin Lispro (Admelog) 1 Unit/0.01 Ml Unit SC 08/13/24 16:59 Not Given ACHS RINA Protocol Labetalol HCl 10 mg 07/18/24 11:44 Labetalol Inj 5 Mg/Ml Vial 20 Ml IVP 08/17/24 11:43 Q4H PRN SBP >180, DBP >120 and HR > 80 Lorazepam 1 mg 07/16/24 14:44 07/18/24 05:30 Lorazepam 2 Mg/Ml Vial IVP 07/21/24 14:43 1 mg Q8HR PRN Administration ANXIETY Losartan Potassium 100 mg 07/17/24 09:00 07/18/24 09:54 Losartan Potassium 25 Mg Tablet PO 08/16/24 08:59 100 mg QDAY RINA Administration Metoprolol Succinate 100 mg 07/18/24 09:00 07/18/24 09:55 Metoprolol Succinate Xl 25 Mg Tabcr PO 08/17/24 08:59 100 mg DAILY RINA Administration Morphine Sulfate 2 mg 07/14/24 19:53 07/18/24 11:52 Morphine Sulf Inj 10 Mg/Ml Vial IVP 07/19/24 19:52 2 mg Q4HR PRN Administration BREAKTHROUGH PAIN 4-10 Ondansetron HCl 4 mg 07/14/24 16:29 Ondansetron Inj 2 Mg/Ml Inj 2 Ml IV 08/13/24 16:28 Q6H PRN NAUSEA OR VOMITING Protocol Oxycodone/Acetaminophen 1 tab 07/14/24 16:29 Oxycodone/Apap 5/325 Tablet PO 07/19/24 16:28 Q6H PRN PAIN SCALE 4-6 (Moderate Pantoprazole Sodium 40 mg 07/15/24 09:00 07/18/24 09:55 Pantoprazole Inj 40 Mg Vial IVP 08/14/24 08:59 40 mg BID RINA Administration Sodium Chloride 3 ml 07/14/24 12:01 07/14/24 12:11 Sodium Chloride Rt Radha 0.9% 3 Ml Nebu INH 08/13/24 12:00 3 ml PRN PRN Administration SOLN Plan Mr. Mekhi Fisher is a 54-year-old gentleman with past medical history of HFpEF(EF 55-60% 04/24/2024), coronary artery disease s/p stent 5 years ago, IDDM, CVA, carotid artery stenosis s/p bilateral endarterectomy 2019, pulmonary embolism on ELIQUIS, hypertension, obstructive sleep apnea, cirrhosis, history of vertebral hemangioma s/p radiation therapy who presented to the ED on 07/14/2024 with a chief complaint of shortness of breath. Due to the patient being agitated at the time of initial evaluation, history was obtained through chart review. Apparently the patient presented to the ED via EMS from [facility] to to acute onset SOB with oxygen desaturation to 87% whilst on 3L of supplemental oxygen. Per nursing staff at the facility, the patient had been refusing his lasix and had a significant amount weight gain in recent days. Patient's PCP recommended the patient be taken to the ED due to concern for volume overload. En route to the the ED, patient was administered 3 sublingual Nitroglycerin tablets and 2 Nitro paste was applied to his chest. #Acute hypercapneic Encephalopathy (Improving)2/2 #Acute hypoxic hypercapnic respiratory failure 2/2 #Obstuctive sleep apnea, and #Obesity hypoventilation syndrome #? COPD Patient with history of CAROLYN and OHS. Patient reportedly also has a longstanding smoking history. Patient was found to have elevated CO2 levels with Initial ABG showing 7.29/pCO2 56/HCO3 24. Most likely 2/2 to CAROLYN vs Obesity hypoventilation vs CHF exacerbation. Patient was started on BiPAP to allow for CO2 washout, however patient became agitated and was unable to comply with wearing BiPAP mask, despite receiving a total of Haldol 5 mg x 3 doses. Decision was made to upgrade the patient to ICU for sedation with precedex to allow for BiPAP compliance. 1.26- off bipap and precedex drip -Ativan 1 Mg every 8 hours as needed for agitation -On 4 L of O2, we will transition to BiPAP at night -will continue to monitor #CHF exacerbation #HFpEF EF 55-60% 04/2024 -Patient with known history of Heart failure with reduced ejection fraction. Per nursing facilty, patient has been non-compliant with diuresis leading to fluid overload and Previous Echo report 04/24/2024: Normal LV size and function. Mild LVH. Grade I diastolic dsyfunction. Estimated EF 55-60%. Mild RV dilation. Normal RV function. Mild bi-atrial dilation. Trace MR, TR. Mild AV sclerosis without stenosis. There is a small circumferential pericardial effusion. No evidence of cardiac tamponade. BNP on admission: 539 Patient states he is not taking his LASIX. Physical exam notable for B/L 2+ lower extremity edema after diuresis, Bibasilar crackles CXR: enlargement of the cardiac contour with significant B/L vascular congestion and perihilar edema consistent with CHF. 07/15: Patient is net -1.7 L since admission 07/16-patient's net negative is -1.9 L in 24 hr 07/17- patient is negative 0.7 L in 24 hr 07/18- Negative by 600cc - Follow echocardiogram ? Continue BUMEX 2 mg BID ? Continue DuoNebs q6h PRN ? Continue BiPAP ? Started home METOPROLOL ? Strict IN & Out's #Acute normocytic blood loss anemia 2/2 #Lower GI bleed, DDx: UGI bleed 2/2 Duodenal ulcer Hg/HCT: 6.0/20.0%, on admission, he received 2 units of PRBC and his hemoglobin today is 8.7 Isolated elevated BUN consistent with upper GI bleed On recent admission, 06/25/2024 patient underwent upper endoscopy which showed small duodenal ulcer in the junction of duodenal bulb and descending duodenum gastritis. -Continue IV Protonix 40 mg BID -Hold NSAIDs, steroids, ASA -GI consulted, recommendations as follows: colonoscopy today -Patient may needs EGD to reassess bleeding site, if no source is found on colonoscopy #Coronary arterial disease s/p stent Patient with known history of coronary artery disease s/p stenting approximately 5 years. Prior records in 10/2023 show that cardiology services recommended the patient be discharged with aspirin and statin. However at discharge during that hospitalization, patient was not discharged with Aspirin. Review of recent medications also show that patient has not been on aspirin. -Will defer starting aspirin at this time due to active GI bleeding. -Will consider consulting cardiology for further recommendations. #History of Pulmonary Embolism Know history of PE with current use of Eliquis for anticoagulation. -Will hold Eliquis at this time due to acute blood loss anemia in setting of GI bleed #Mild transaminitis #Liver cirrhosis History of liver cirrhosis. Mildly elevated AST is on admission. -Continue to monitor with daily CMP -Ceftiraxone 1 gram QDAY as PXP in setting of ? GI bleed and cirrhosis #Hyperphosphatemia, resolved Monitor phosphate in a.m. # Uncontrolled IDDM type II A1c 13.6 from 04/2024. GLUCOSE 105 on admission. From last visit, patient has a history of INSULIN noncompliance, refusing INSULIN at times, not adherent with diet. ? Continue INSULIN GLARGINE 20 units HS (home dose 40 HS) - Hold patient's home Diabetes Medications - Patient started on Insulin Sliding scale - ACHS accucheks - Follow up QAM CMP glucose level #Sacral Decubitus Ulcer Patient noted to have an open wound at the gluteal fold above the coccyx. Appears to be a stage 2 ulcer. -Wound care referral. DVT prophylaxis: SCDs GI prophylaxis: Protonix twice daily Diet: NPO now, resume cardiac diet after colonoscopy or as per GI Lines: Peripheral IV Code status: Full code The patient's management plan was discussed with my attending physician MD Scott Lee MD, PGY2 Attending Provider Attestation/Addendum I reviewed labs, imaging, EKG, home medications and prior available records. Face to face evaluation was performed by me. I have personally examined the patient and discussed assessment and plan with the IM team. I reviewed the resident note and agree with the plan with exceptions as below. Acute hypoxic respiratory failure in the setting of CHF exacerbation Hyperactive agitation CHF exacerbation Acute anemia Hypertensive urgency He is on nasal cannula Patient developed hypertensive urgency: Likely in the setting of anxiety/agitation. Ativan as needed for agitation He is off Precedex drip. Downgraded from ICU Pain management as needed Delirium precautions. Ordered CT head that was negative for acute changes Haloperidol as needed Continue IV Bumex Status post 2 PRBC transfusion. H&H is stable posttransfusion. Consulted GI: Plan for colonoscopy once oxygen requirements stabilize. He has history of small duodenal ulcer found in early June 2024
[2024-07-18] MEDS: MORPHINE SULF INJ 10 MG/ML VIAL IVP (16:21)
--- NOTE | 2024-07-18 18:49 | SUR.PHASEI ---
1849: Pt. wakes to name then drifts back to sleep, vitals stable, breathing unlabored, no complaint of pain or nausea, no dressing in place, no active bleed noted, report received from Liudmila MATOS.
--- NOTE | 2024-07-18 19:30 | SUR.PHASEI ---
1930: Pt. awake, answers questions appropriately, however he is confused slightly repeating phone numbers, vitals stable, breathing unlabored, no complaint of pain or nausea, no dressing in place, no active bleed noted, report given to Tosin MATOS prior to transfer to room 378, family aware of transfer to room.
--- NOTE | 2024-07-18 19:43 | PC.NURSE ---
pt back from colonoscopy, pt is lethargic and restless, RT was made aware that pt needs to be on Bipap, Dr. Meadows was made aware that pt needs haldol per Dr. Moses.
[2024-07-18] MEDS: HALOPERIDOL LACT INJ 5 MG/ML VIAL IV (20:08)
--- NOTE | 2024-07-18 20:11 | PC.NURSE ---
Okay to put pt on restraints per Dr. Redman. was made aware that pt was agitated, pulling bipap tubing tryring to remove bipap
[2024-07-18] MEDS: LORazepam 2 MG/ML VIAL IVP (21:05)
[2024-07-18] MEDS: COLLAGENASE OINT 30 GM TUBE TOP (21:05)
--- NOTE | 2024-07-18 21:23 | PC.NURSE ---
pt removed Bipap, pt is restless and complaining of anxiety. Dr. Redman was made aware. waiting for new orders for pt.
[2024-07-18] MEDS: OLANZapine INJ 10 MG, Sterile Water 2.1 ML IM (22:50)
--- NOTE | 2024-07-18 22:57 | PC.NURSE ---
Okay per Dr. Arredondo to give Olanzapine 10 mg inj
[2024-07-19] VITALS (16 sets, daily range): BP systolic 138–183; BP diastolic 75–110; PULSE 64–89; RESP 14–22; TEMP 36.2–36.8; O2SAT 95–100; BMI 46.5; BMI 48.8
[2024-07-19] MEDS: LORazepam 2 MG/ML VIAL IVP (02:05)
[2024-07-19 06:18] LABS: Basophils % (Auto) 1 % (0-2.5); Eosinophils # (Auto) 0.4 Thou/mm3 (0.0-0.5); Eosinophils % (Auto) 5 % (0-10); Hematocrit 28.3 % (41.0-53.0); Immature Granulocytes % (Auto) 1 % (0-0); Immature Granulocytes Auto 0.04 Thou/mm3 (0.00-0.00); Lymphocytes # (Auto) 1.2 Thou/mm3 (1.0-4.8); Lymphocytes % (Auto) 15 % (10-50); Mean Corpuscular HGB Conc 29.7 g/dl (31.0-37.0); Mean Corpuscular Hemoglobin 25.6 pg (25.0-35.0); Mean Corpuscular Volume 86 fL (80-100); Monocytes # (Auto) 0.8 Thou/mm3 (0.0-0.8); Monocytes % (Auto) 11 % (0-12); Neutrophils # (Auto) 5.4 Thou/mm3 (1.8-7.7); Neutrophils % (Auto) 69 % (37-80); Nucleated Red Blood Cell % 0 /100 WBC (0); Platelet Count 270 Thou/mm3 (140-440); RDW Standard Deviation 49.1 fL (35.1-43.9); Red Blood Count 3.28 Miln/mm3 (4.50-5.90); White Blood Count 7.9 Thou/mm3 (3.8-10.6)
[2024-07-19 06:22] LABS: Hemoglobin 8.4 g/dL (13.5-16.0)
[2024-07-19 06:48] LABS: Alanine Aminotransferase 32 U/L (10-49); Albumin, Serum 3.3 gm/dL (3.5-5.0); Albumin/Globulin Ratio 0.9 (1.2-2.2); Alkaline Phosphatase 122 U/L (46-116); Anion Gap 11 (7-16); Aspartate Amino Transferase 65 U/L (0-34); BUN/Creatinine Ratio 31 Ratio (12-20); Bilirubin,Total 0.3 mg/dL (0.3-1.2); Blood Urea Nitrogen 28 mg/dL (9-23); Calcium 9.4 mg/dL (8.3-10.6); Carbon Dioxide 30.5 mMol/L (20.0-31.0); Chloride 106 mMol/L (98-107); Creatinine (Component) 0.9 mg/dL (0.6-1.3); Estimated Creatinine Clearance 121.3 mL/min (>60); Globulin 3.6 gm/dL (2.3-3.5); Glucose 78 mg/dL (74-106); Magnesium 1.9 mg/dL (1.6-2.6); Osmolality,Calculated 296 (275-295); Phosphorous 3.8 mg/dL (2.4-5.1); Potassium 3.8 mMol/L (3.4-5.1); Sodium 147 mMol/L (136-145); Total Protein 6.9 gm/dL (5.7-8.2); eGFR > 60 See Note
[2024-07-19] MEDS: METOPROLOL SUCCINATE XL 25 MG TABCR 100 MG PO (08:13)
[2024-07-19] MEDS: LOSARTAN POTASSIUM 25 MG TABLET 100 MG PO (08:15)
[2024-07-19] MEDS: amLODIPine BESYLATE 5 MG TABLET 10 MG PO (08:16)
[2024-07-19] MEDS: cefTRIAXone/D5w 1gm IV premix 50 ML IV (08:17)
[2024-07-19] MEDS: BUMETANIDE INJ 0.25 MG/ML VIAL 4 ML 2 MG IVP ×2 (08:17→21:34)
[2024-07-19] MEDS: PANTOPRAZOLE INJ 40 MG VIAL IVP ×2 (08:18→21:34)
[2024-07-19] MEDS: HYDROcodone/APAP 10/325 TAB PO ×2 (08:35→15:30)
[2024-07-19 08:45] LABS: Base Excess 6 (-3-3); HCO3 32 mEq/L (20-26); Inspired Oxygen, FIO2 80 %; O2 Saturation 99 % (91-98); PCO2 57 mmHg (32.0-48.0); PO2 268 mmHg (83-108); pH, Arterial 7.36 (7.35-7.45)
[2024-07-19 08:49] LABS: Allen Test Not Performed; Puncture Site Right Radial
[2024-07-19] MEDS: Magnesium Sulfate 2 GM Ivpb 2 GM/50 ML BAG IV (10:18)
[2024-07-19] MEDS: POTASSIUM CHLORIDE 20 mEq TABCR 40 MEQ PO (10:22)
--- NOTE | 2024-07-19 13:49 | PD.RESPRO ---
Documentation for date of: 07/19/24 Subjective Subjective Interval history: Overnight events: The patient was agitated overnight, and was given 1 mg IV Ativan. The patient was somnolent this morning, and was alert and oriented x 2 to, to himself and place only. He denied any severe pain, chest pain or headache. Exam Vital Signs Temp Pulse Resp BP Pulse Ox O2 Del Method O2 Flow Rate 97.1 F 65 18 183/95 H 100 BiPAP 3 07/19/24 08:00 07/19/24 12:00 07/19/24 11:00 07/19/24 08:17 07/19/24 11:00 07/19/24 08:00 07/18/24 20:00 FiO2 40 07/19/24 11:00 Narrative Exam General: Morbidly obese gentleman, no acute distress, Alert and Oriented x 2, to person and place only, saturating 100% on BiPap HEENT: Moist mucous membranes, oropharynx clear Neck: Supple, No masses, No JVD CVS: S1S2 Regular rate and rhythm, No murmurs, rubs or gallops Lungs: Clear to auscultation with no accessory use, no wheeze no rhonchi Abd: Soft, NT/ND, +BS, no organomegaly Ext: No edema, warm and well perfused Skin: No rash, wound at lower back Psych: somnolent Objective Labs 07/19/24 05:27 07/19/24 05:27 Labs: Laboratory Results - last 24 hr 07/19/24 07/19/24 05:27 08:35 WBC 7.9 RBC 3.28 L Hgb 8.4 L Hct 28.3 L MCV 86 MCH 25.6 MCHC 29.7 L RDW Std Deviation 49.1 H Plt Count 270 Neut % (Auto) 69 Lymph % (Auto) 15 [place] % (Auto) 11 Eos % (Auto) 5 Baso % (Auto) 1 Neut # (Auto) 5.4 Lymph # (Auto) 1.2 [place] # (Auto) 0.8 Eos # (Auto) 0.4 Baso # (Auto) 0.0 Immature Gran # (Auto) 0.04 H Absolute Nucleated RBC 0.00 Immature Gran % 1 H Nucleated RBC % 0 Puncture Site Right Radial ABG pH 7.36 ABG pCO2 57 H ABG pO2 268 H D ABG HCO3 32 H ABG O2 Saturation 99 H ABG Base Excess 6 H FiO2 80 Sodium 147 H Potassium 3.8 Chloride 106 Carbon Dioxide 30.5 Anion Gap 11 BUN 28 H Creatinine 0.9 Estim Creat Clear Calc 121.3 eGFR > 60 BUN/Creatinine Ratio 31 H Glucose 78 Calculated Osmolality 296 H Calcium 9.4 Corrected Calcium 10.0 Phosphorus 3.8 Magnesium 1.9 Total Bilirubin 0.3 AST 65 H ALT 32 Alkaline Phosphatase 122 H D Total Protein 6.9 Albumin 3.3 L D Globulin 3.6 H Albumin/Globulin Ratio 0.9 L ABG Interpretation ABG results: 07/14/24 07/15/24 07/15/24 16:37 00:44 03:54 ABG pH 7.29 L 7.31 L 7.32 L ABG pCO2 56 H 54 H 53 H ABG pO2 152 H 50 L* D 122 H D ABG HCO3 27 H 28 H 27 H ABG O2 Saturation 99 H 81 L 99 H ABG Base Excess 1 1 1 07/15/24 07/17/24 07/18/24 14:45 12:51 08:57 ABG pH 7.40 7.36 7.33 L ABG pCO2 45 58 H D 60 H ABG pO2 74 L D 109 H D 72 L D ABG HCO3 27 H 33 H 32 H ABG O2 Saturation 95 99 H 93 ABG Base Excess 2 6 H 5 H 07/19/24 08:35 ABG pH 7.36 ABG pCO2 57 H ABG pO2 268 H D ABG HCO3 32 H ABG O2 Saturation 99 H ABG Base Excess 6 H Quality Measures Quality Measures none Assessment & Plan Assessment Current Active Medications: Generic Name Dose Route Start Last Admin Trade Name Freq PRN Reason Stop Dose Admin Acetaminophen 650 mg 07/14/24 16:29 Acetaminophen 325 Mg Tablet PO 08/13/24 16:28 Q6H PRN PAIN SCALE 1-3 (mild Acetaminophen 650 mg 07/14/24 16:29 Acetaminophen 325 Mg Tablet PO 08/13/24 16:28 Q6H PRN Fever >100 Hydrocodone Bitart/Acetaminophen 1 tab 07/14/24 16:29 07/19/24 08:35 Hydrocodone/Apap 10/325 Tab PO 07/19/24 16:28 1 tab Q4HR PRN Administration PAIN SCALE 7-10 (Severe Albuterol/Ipratropium 3 ml 07/18/24 11:40 Albuterol/Ipratropium (Duoneb) Rt Radha 3 Ml Nebu INH 08/13/24 18:59 Q4HRRT PRN SHORTNESS OF BREATH Amlodipine Besylate 10 mg 07/17/24 09:00 07/19/24 08:16 Amlodipine Besylate 5 Mg Tablet PO 08/16/24 08:59 10 mg QDAY RINA Administration Atorvastatin Calcium 80 mg 07/14/24 21:00 07/18/24 20:42 Atorvastatin Calcium 20 Mg Tablet PO 08/13/24 20:59 Not Given HS RINA Bumetanide 2 mg 07/14/24 21:00 07/19/24 08:17 Bumetanide Inj 0.25 Mg/Ml Vial 4 Ml IVP 08/13/24 20:59 2 mg BID RINA Administration Collagenase 0 gm 07/17/24 21:00 07/18/24 21:05 Collagenase Oint 30 Gm Tube TOP 08/16/24 20:59 1 applicatio HS RINA Administration Dextrose 25 ml 07/14/24 16:31 Dextrose 50%-Water Inj 50 Ml Syringe IV 08/13/24 16:30 Q15MIN PRN BG 50-70 responsive npo pt Dextrose 50 ml 07/14/24 16:31 Dextrose 50%-Water Inj 50 Ml Syringe IV 08/13/24 16:30 Q15MIN PRN BG <50 OR BG <70 & pt unresponsive Glucagon 1 mg 07/14/24 16:31 Glucagon Inj 1 Mg Vial IM Q15MIN PRN BG <70, and no IV access Ceftriaxone Sodium/Dextrose 50 mls @ 100 mls/hr 07/14/24 17:07 07/19/24 08:17 Rocephin/D5w 1gm Iv Premix IV 07/21/24 17:06 100 mls/hr QDAY RINA Administration Insulin Glargine 20 unit 07/18/24 21:00 Insulin Glargine (Lantus) 5 Unit/0.05 Ml (Per 5 Units) SC 08/17/24 20:59 HS [facility] Insulin Human Lispro 0 unit 07/14/24 17:00 07/19/24 12:25 Insulin Lispro (Admelog) 1 Unit/0.01 Ml Unit SC 08/13/24 16:59 Not Given ACHS RINA Protocol Labetalol HCl 10 mg 07/18/24 11:44 Labetalol Inj 5 Mg/Ml Vial 20 Ml IVP 08/17/24 11:43 Q4H PRN SBP >180, DBP >120 and HR > 80 Lorazepam 1 mg 07/16/24 14:44 07/18/24 05:30 Lorazepam 2 Mg/Ml Vial IVP 07/21/24 14:43 1 mg Q8HR PRN Administration ANXIETY Losartan Potassium 100 mg 07/17/24 09:00 07/19/24 08:15 Losartan Potassium 25 Mg Tablet PO 08/16/24 08:59 100 mg QDAY RINA Administration Metoprolol Succinate 100 mg 07/18/24 09:00 07/19/24 08:13 Metoprolol Succinate Xl 25 Mg Tabcr PO 08/17/24 08:59 100 mg DAILY RINA Administration Morphine Sulfate 1 mg 07/18/24 16:05 Morphine Sulf Inj 10 Mg/Ml Vial IVP 07/19/24 19:52 Q4HR PRN BREAKTHROUGH PAIN 7-10 Ondansetron HCl 4 mg 07/14/24 16:29 Ondansetron Inj 2 Mg/Ml Inj 2 Ml IV 08/13/24 16:28 Q6H PRN NAUSEA OR VOMITING Protocol Oxycodone/Acetaminophen 1 tab 07/14/24 16:29 Oxycodone/Apap 5/325 Tablet PO 07/19/24 16:28 Q6H PRN PAIN SCALE 4-6 (Moderate Pantoprazole Sodium 40 mg 07/15/24 09:00 07/19/24 08:18 Pantoprazole Inj 40 Mg Vial IVP 08/14/24 08:59 40 mg BID RINA Administration Sodium Chloride 3 ml 07/14/24 12:01 07/14/24 12:11 Sodium Chloride Rt Radha 0.9% 3 Ml Nebu INH 08/13/24 12:00 3 ml PRN PRN Administration SOLN Plan Mr. Mekhi Fisher is a 54-year-old gentleman with past medical history of HFpEF(EF 55-60% 04/24/2024), coronary artery disease s/p stent 5 years ago, IDDM, CVA, carotid artery stenosis s/p bilateral endarterectomy 2018, pulmonary embolism on ELIQUIS, hypertension, obstructive sleep apnea, cirrhosis, history of vertebral hemangioma s/p radiation therapy who presented to the ED on 07/14/2024 with a chief complaint of shortness of breath. Due to the patient being agitated at the time of initial evaluation, history was obtained through chart review. Apparently the patient presented to the ED via EMS from [facility] to to acute onset SOB with oxygen desaturation to 87% whilst on 3L of supplemental oxygen. #Acute hypercapneic Encephalopathy (Improving)2/2 #Acute hypoxic hypercapnic respiratory failure 2/2 #Obstuctive sleep apnea, and #Obesity hypoventilation syndrome #? COPD Patient with history of CAROLYN and OHS. Patient reportedly also has a longstanding smoking history. Patient was found to have elevated CO2 levels with Initial ABG showing 7.29/pCO2 56/HCO3 24. Most likely 2/2 to CAROLYN vs Obesity hypoventilation vs CHF exacerbation. Patient was started on BiPAP to allow for CO2 washout, however patient became agitated and was unable to comply with wearing BiPAP mask, despite receiving a total of Haldol 5 mg x 3 doses. Decision was made to upgrade the patient to ICU for sedation with precedex to allow for BiPAP compliance. 1.26- off bipap and precedex drip -Ativan 1 Mg every 8 hours as needed for agitation -On 4 L of O2, we will transition to BiPAP at night -will continue to monitor #CHF exacerbation #HFpEF EF 55-60% 04/2024 -Patient with known history of Heart failure with reduced ejection fraction. Per nursing facilty, patient has been non-compliant with diuresis leading to fluid overload and Previous Echo report 04/24/2024: Normal LV size and function. Mild LVH. Grade I diastolic dsyfunction. Estimated EF 55-60%. Mild RV dilation. Normal RV function. Mild bi-atrial dilation. Trace MR, TR. Mild AV sclerosis without stenosis. There is a small circumferential pericardial effusion. No evidence of cardiac tamponade. BNP on admission: 539 Patient states he is not taking his LASIX. Physical exam notable for B/L 2+ lower extremity edema after diuresis, Bibasilar crackles CXR: enlargement of the cardiac contour with significant B/L vascular congestion and perihilar edema consistent with CHF. 07/15: Patient is net -1.7 L since admission 07/16-patient's net negative is -1.9 L in 24 hr 07/17- patient is negative 0.7 L in 24 hr 07/18- Negative by 600cc 07/19- Negative by 2085cc - Follow echocardiogram ? Continue BUMEX 2 mg BID ? Continue DuoNebs q6h PRN ? Continue BiPAP ? Started home METOPROLOL ? Strict IN & Out's #Acute normocytic blood loss anemia 2/2 #Lower GI bleed, DDx: UGI bleed 2/2 Duodenal ulcer Hg/HCT: 6.0/20.0%, on admission, he received 2 units of PRBC and his hemoglobin today is 8.7 Isolated elevated BUN consistent with upper GI bleed On recent admission, 06/25/2024 patient underwent upper endoscopy which showed small duodenal ulcer in the junction of duodenal bulb and descending duodenum gastritis. Colonoscopy done on 07/18/24 revealed polyp that was resected and sent for pathology reporting -Continue IV Protonix 40 mg BID -Hold NSAIDs, steroids, ASA -GI consulted, recommendations appreciated -Patient may needs EGD to reassess bleeding site, will be decided by Dr. Wakefield #Hyperosmolar hypervolemic hypernatremia 2/2 free water deficiency in the setting of decreased PO -Monitor CMP in the am #Coronary arterial disease s/p stent Patient with known history of coronary artery disease s/p stenting approximately 5 years. Prior records in 10/2023 show that cardiology services recommended the patient be discharged with aspirin and statin. However at discharge during that hospitalization, patient was not discharged with Aspirin. Review of recent medications also show that patient has not been on aspirin. -Will defer starting aspirin at this time due to active GI bleeding. -Will consider consulting cardiology for further recommendations -Hb >8 to be maintained #History of Pulmonary Embolism Know history of PE with current use of Eliquis for anticoagulation. -Will hold Eliquis at this time due to acute blood loss anemia in setting of GI bleed #Mild transaminitis #Liver cirrhosis History of liver cirrhosis. Mildly elevated AST is on admission. -Continue to monitor with daily CMP -Ceftiraxone 1 gram QDAY as PXP in setting of ? GI bleed and cirrhosis #Hyperphosphatemia, resolved Monitor phosphate in a.m. # Uncontrolled IDDM type II A1c 13.6 from 04/2024. GLUCOSE 105 on admission. From last visit, patient has a history of INSULIN noncompliance, refusing INSULIN at times, not adherent with diet. ? Continue INSULIN GLARGINE 20 units HS (home dose 40 HS) - Hold patient's home Diabetes Medications - Patient started on Insulin Sliding scale - ACHS accucheks - Follow up QAM CMP glucose level #Sacral Decubitus Ulcer Patient noted to have an open wound at the gluteal fold above the coccyx. Appears to be a stage 2 ulcer. -Wound care referral. DVT prophylaxis: SCDs GI prophylaxis: Protonix twice daily Diet: Clear liquid diet Lines: Peripheral IV Code status: Full code The patient's management plan was discussed with my attending physician MD Scott Lee MD, PGY2 Attending Provider Attestation/Addendum I reviewed labs, imaging, EKG, home medications and prior available records. Face to face evaluation was performed by me. I have personally examined the patient and discussed assessment and plan with the IM team. I reviewed the resident note and agree with the plan with exceptions as below. Acute hypoxic respiratory failure in the setting of CHF exacerbation Hyperactive agitation CHF exacerbation Acute anemia Hypertensive urgency ABG showed improvement in pH, pCO2 and pO2 He is alternating between nasal cannula and BiPAP Continue treatment of agitation as needed Pain management as needed Delirium precautions. Ordered CT head that was negative for acute changes Haloperidol as needed Continue IV Bumex Hemoglobin is stable. Status post colonoscopy that showed polyps status post polypectomy. Follow-up pathology results as outpatient
--- NOTE | 2024-07-19 14:06 | PC.NURSE ---
notified dr. hernandez of patient pulling at lines and drains and removing bipap despite education. md notified of patient now being a [facility] 14. only alert to self. notified md of need for restraints. md acknowledged. md stated to order bilateral wrist restaints.
[2024-07-19] MEDS: LORazepam 2 MG/ML VIAL 1 MG IVP ×2 (14:14→23:08)
--- NOTE | 2024-07-19 15:17 | PC.NURSE ---
daughter at pt bedside. pt restless attempting to get out of ped pt alert to self and place.
--- NOTE | 2024-07-19 16:02 | PC.SS ---
Follow up note: Patient remains confused. Patient on restraints. Pending colonoscopy. Patient is transitioning from bipap to high flow n.c.
[2024-07-19] MEDS: oxyCODONE/APAP 5/325 TABLET 1 TAB PO (21:34)
[2024-07-19] MEDS: ATORVASTATIN CALCIUM 20 MG TABLET 80 MG PO (21:35)
[2024-07-19] MEDS: INSULIN LISPRO (AdmeLOG) 1 UNIT/0.01 ML UNIT SC (21:35)
--- NOTE | 2024-07-19 21:58 | PD.IMPROG ---
Documentation for date of: 07/19/24 Subjective Subjective Interval history: Patient evaluated hemoglobin hematocrit 8.4 and 28.3 Patient agitated and confused in soft restraints Colonoscopy report not in the [place] [facility] because of the failure of computer system but it is dictated It showed diverticulosis colon as well as removal of a colonic polyp no colonic mass no AVMs Exam Vital Signs Temp Pulse Resp BP Pulse Ox O2 Del Method O2 Flow Rate 97.2 F 77 14 174/99 H 100 High Flow Nasal Cannula 40 07/19/24 20:00 07/19/24 21:34 07/19/24 20:00 07/19/24 21:34 07/19/24 20:00 07/19/24 20:00 07/19/24 18:11 FiO2 35 07/19/24 18:11 Objective Labs 07/19/24 05:27 07/19/24 05:27 Labs: Laboratory Results - last 24 hr 07/19/24 07/19/24 05:27 08:35 WBC 7.9 RBC 3.28 L Hgb 8.4 L Hct 28.3 L MCV 86 MCH 25.6 MCHC 29.7 L RDW Std Deviation 49.1 H Plt Count 270 Neut % (Auto) 69 Lymph % (Auto) 15 [place] % (Auto) 11 Eos % (Auto) 5 Baso % (Auto) 1 Neut # (Auto) 5.4 Lymph # (Auto) 1.2 [place] # (Auto) 0.8 Eos # (Auto) 0.4 Baso # (Auto) 0.0 Immature Gran # (Auto) 0.04 H Absolute Nucleated RBC 0.00 Immature Gran % 1 H Nucleated RBC % 0 Puncture Site Right Radial ABG pH 7.36 ABG pCO2 57 H ABG pO2 268 H D ABG HCO3 32 H ABG O2 Saturation 99 H ABG Base Excess 6 H FiO2 80 Sodium 147 H Potassium 3.8 Chloride 106 Carbon Dioxide 30.5 Anion Gap 11 BUN 28 H Creatinine 0.9 Estim Creat Clear Calc 121.3 eGFR > 60 BUN/Creatinine Ratio 31 H Glucose 78 Calculated Osmolality 296 H Calcium 9.4 Corrected Calcium 10.0 Phosphorus 3.8 Magnesium 1.9 Total Bilirubin 0.3 AST 65 H ALT 32 Alkaline Phosphatase 122 H D Total Protein 6.9 Albumin 3.3 L D Globulin 3.6 H Albumin/Globulin Ratio 0.9 L Impressions Impression: # Posthemorrhagic anemia continue to monitor CBC ABG Interpretation ABG results: 07/14/24 07/15/24 07/15/24 16:37 00:44 03:54 ABG pH 7.29 L 7.31 L 7.32 L ABG pCO2 56 H 54 H 53 H ABG pO2 152 H 50 L* D 122 H D ABG HCO3 27 H 28 H 27 H ABG O2 Saturation 99 H 81 L 99 H ABG Base Excess 1 1 1 07/15/24 07/17/24 07/18/24 14:45 12:51 08:57 ABG pH 7.40 7.36 7.33 L ABG pCO2 45 58 H D 60 H ABG pO2 74 L D 109 H D 72 L D ABG HCO3 27 H 33 H 32 H ABG O2 Saturation 95 99 H 93 ABG Base Excess 2 6 H 5 H 07/19/24 08:35 ABG pH 7.36 ABG pCO2 57 H ABG pO2 268 H D ABG HCO3 32 H ABG O2 Saturation 99 H ABG Base Excess 6 H Assessment & Plan A&P Narrative # Anemia blood loss requiring blood transfusion Once patient's respiratory status stabilizes GoLytely prep and schedule colonoscopy Agree with the blood transfusion Other medical problems include # Acute hypoxic respiratory failure requiring BiPAP # CAROLYN # History congestive heart failure # CVA requiring bilateral endarterectomy IDDM # Pulmonary embolism on Eliquis Thank you very much for the opportunity to participate in the care of this patient Time Spent With Patient Time: Total time spent is greater than 50% in coordination of care (as documented) at patient's floor/unit and/or counseling patient:
[2024-07-19] MEDS: MORPHINE SULF INJ 10 MG/ML VIAL IVP (23:44)
[2024-07-20] VITALS (23 sets, daily range): BP systolic 159–196; BP diastolic 78–93; PULSE 64–80; RESP 18–25; TEMP 36.1–36.7; O2SAT 92–100; BMI 46.8
--- NOTE | 2024-07-20 05:11 | PC.NURSE ---
Dr jimenez notified of patients BP 174/91 HR 64, not patient complaints at this time. No new orders.
[2024-07-20 06:20] LABS: Basophils % (Auto) 1 % (0-2.5); Eosinophils # (Auto) 0.5 Thou/mm3 (0.0-0.5); Eosinophils % (Auto) 6 % (0-10); Hematocrit 29.2 % (41.0-53.0); Immature Granulocytes % (Auto) 1 % (0-0); Immature Granulocytes Auto 0.06 Thou/mm3 (0.00-0.00); Lymphocytes # (Auto) 1.4 Thou/mm3 (1.0-4.8); Lymphocytes % (Auto) 18 % (10-50); Mean Corpuscular HGB Conc 29.1 g/dl (31.0-37.0); Mean Corpuscular Hemoglobin 25.7 pg (25.0-35.0); Mean Corpuscular Volume 88 fL (80-100); Monocytes # (Auto) 0.8 Thou/mm3 (0.0-0.8); Monocytes % (Auto) 11 % (0-12); Neutrophils # (Auto) 4.9 Thou/mm3 (1.8-7.7); Neutrophils % (Auto) 64 % (37-80); Nucleated Red Blood Cell % 0 /100 WBC (0); Platelet Count 284 Thou/mm3 (140-440); RDW Standard Deviation 49.7 fL (35.1-43.9); Red Blood Count 3.31 Miln/mm3 (4.50-5.90); White Blood Count 7.6 Thou/mm3 (3.8-10.6)
[2024-07-20 06:23] LABS: Hemoglobin 8.5 g/dL (13.5-16.0)
[2024-07-20] MEDS: MORPHINE SULF INJ 10 MG/ML VIAL 2 MG IVP ×3 (06:34→20:42)
[2024-07-20 06:40] LABS: Alanine Aminotransferase 27 U/L (10-49); Albumin, Serum 3.1 gm/dL (3.5-5.0); Albumin/Globulin Ratio 0.8 (1.2-2.2); Alkaline Phosphatase 117 U/L (46-116); Anion Gap 9 (7-16); Aspartate Amino Transferase 48 U/L (0-34); BUN/Creatinine Ratio 29 Ratio (12-20); Bilirubin,Total 0.3 mg/dL (0.3-1.2); Blood Urea Nitrogen 29 mg/dL (9-23); Calcium 8.9 mg/dL (8.3-10.6); Calcium (Corrected) 9.6 mg/dL (8.5-10.1); Carbon Dioxide 30.9 mMol/L (20.0-31.0); Chloride 104 mMol/L (98-107); Estimated Creatinine Clearance 107.9 mL/min (>60); Globulin 3.7 gm/dL (2.3-3.5); Glucose 101 mg/dL (74-106); Osmolality,Calculated 292 (275-295); Phosphorous 3.6 mg/dL (2.4-5.1); Potassium 3.7 mMol/L (3.4-5.1); Sodium 144 mMol/L (136-145); Total Protein 6.8 gm/dL (5.7-8.2); eGFR > 60 See Note
[2024-07-20] MEDS: oxyCODONE/APAP 5/325 TABLET 1 TAB PO ×2 (07:38→18:06)
[2024-07-20] MEDS: POTASSIUM CHLORIDE 20 mEq TABCR 40 MEQ PO (09:06)
[2024-07-20] MEDS: amLODIPine BESYLATE 5 MG TABLET 10 MG PO (09:06)
[2024-07-20] MEDS: METOPROLOL SUCCINATE XL 25 MG TABCR 100 MG PO (09:07)
[2024-07-20] MEDS: LOSARTAN POTASSIUM 25 MG TABLET 100 MG PO (09:07)
[2024-07-20] MEDS: PANTOPRAZOLE INJ 40 MG VIAL IVP ×2 (09:12→20:42)
[2024-07-20] MEDS: BUMETANIDE INJ 0.25 MG/ML VIAL 4 ML 2 MG IVP ×2 (09:12→20:43)
[2024-07-20] MEDS: cefTRIAXone/D5w 1gm IV premix 50 ML IV (09:13)
--- NOTE | 2024-07-20 11:09 | PC.NURSE ---
Received report from Keyla MATOS at 10:30. Pt arrived on floor at 10:45.
[2024-07-20] MEDS: INSULIN LISPRO (AdmeLOG) 1 UNIT/0.01 ML UNIT SC ×2 (11:45→17:08)
--- NOTE | 2024-07-20 13:49 | XR_ITS ---
Examination: Venous duplex upper extremity sonogram, bilateral. Date and time of exam: July 20, 2024 1532 hours INDICATIONS: Bilateral arm swelling beginning 2 days ago Technique: Multiple sonographic images of the deep venous system have been obtained. B-mode/2-D grayscale imaging of vascular structures and Doppler spectral analysis (waveforms) and color performed Both legs are examined. Findings: Deep venous systems do not demonstrate abnormal echogenicity. All visualized deep veins exhibit compressibility. All visualized deep veins exhibit augmentation. Impression: Negative for deep vein thrombosis
[2024-07-20] MEDS: ALBUTEROL/IPRATROPIUM (Duoneb) RT SOL 3 ML NEBU INH ×2 (14:45→22:30)
--- NOTE | 2024-07-20 15:02 | ESPR_ITS ---
Documentation for date of: 07/20/24 Subjective Subjective Interval history: The patient was somnolent this morning, and was alert and oriented x 2 to, to himself and place only. He was switched from BiPAP to high flow NC. He denied any severe pain, chest pain or headache. Exam Vital Signs Temp Pulse Resp BP Pulse Ox O2 Del Method O2 Flow Rate 97.8 F 72 20 181/92 H 100 High Flow Nasal Cannula 20 07/20/24 12:00 07/20/24 14:47 07/20/24 14:47 07/20/24 12:00 07/20/24 14:47 07/20/24 12:00 07/20/24 14:47 FiO2 30 07/20/24 14:47 Narrative Exam General: Morbidly obese gentleman, no acute distress, Alert and Oriented x 2, to person and place only, saturating 100% on high flow HEENT: Moist mucous membranes, oropharynx clear Neck: Supple, No masses, No JVD CVS: S1S2 Regular rate and rhythm, No murmurs, rubs or gallops Lungs: Clear to auscultation with no accessory use, no wheeze no rhonchi Abd: Soft, NT/ND, +BS, no organomegaly Ext: BL UE swelling, warm and well perfused Skin: No rash, wound at lower back Psych: somnolent Objective Labs 07/20/24 05:45 07/20/24 05:45 Labs: Laboratory Results - last 24 hr 07/20/24 05:45 WBC 7.6 RBC 3.31 L Hgb 8.5 L Hct 29.2 L MCV 88 MCH 25.7 MCHC 29.1 L RDW Std Deviation 49.7 H Plt Count 284 Neut % (Auto) 64 Lymph % (Auto) 18 [place] % (Auto) 11 Eos % (Auto) 6 Baso % (Auto) 1 Neut # (Auto) 4.9 Lymph # (Auto) 1.4 [place] # (Auto) 0.8 Eos # (Auto) 0.5 Baso # (Auto) 0.0 Immature Gran # (Auto) 0.06 H Absolute Nucleated RBC 0.00 Immature Gran % 1 H Nucleated RBC % 0 Sodium 144 Potassium 3.7 Chloride 104 Carbon Dioxide 30.9 Anion Gap 9 BUN 29 H Creatinine 1.0 Estim Creat Clear Calc 107.9 eGFR > 60 BUN/Creatinine Ratio 29 H Glucose 101 Calculated Osmolality 292 Calcium 8.9 Corrected Calcium 9.6 Phosphorus 3.6 Magnesium 2.0 Total Bilirubin 0.3 AST 48 H ALT 27 Alkaline Phosphatase 117 H Total Protein 6.8 Albumin 3.1 L Globulin 3.7 H Albumin/Globulin Ratio 0.8 L ABG Interpretation ABG results: 07/14/24 07/15/24 07/15/24 16:37 00:44 03:54 ABG pH 7.29 L 7.31 L 7.32 L ABG pCO2 56 H 54 H 53 H ABG pO2 152 H 50 L* D 122 H D ABG HCO3 27 H 28 H 27 H ABG O2 Saturation 99 H 81 L 99 H ABG Base Excess 1 1 1 07/15/24 07/17/24 07/18/24 14:45 12:51 08:57 ABG pH 7.40 7.36 7.33 L ABG pCO2 45 58 H D 60 H ABG pO2 74 L D 109 H D 72 L D ABG HCO3 27 H 33 H 32 H ABG O2 Saturation 95 99 H 93 ABG Base Excess 2 6 H 5 H 07/19/24 08:35 ABG pH 7.36 ABG pCO2 57 H ABG pO2 268 H D ABG HCO3 32 H ABG O2 Saturation 99 H ABG Base Excess 6 H Quality Measures Quality Measures none Assessment & Plan Assessment Current Active Medications: Generic Name Dose Route Start Last Admin Trade Name Freq PRN Reason Stop Dose Admin Acetaminophen 650 mg 07/14/24 16:29 Acetaminophen 325 Mg Tablet PO 08/13/24 16:28 Q6H PRN PAIN SCALE 1-3 (mild Acetaminophen 650 mg 07/14/24 16:29 Acetaminophen 325 Mg Tablet PO 08/13/24 16:28 Q6H PRN Fever >100 Albuterol/Ipratropium 3 ml 07/18/24 11:40 07/20/24 14:45 Albuterol/Ipratropium (Duoneb) Rt Radha 3 Ml Nebu INH 08/13/24 18:59 3 ml Q4HRRT PRN Administration SHORTNESS OF BREATH Amlodipine Besylate 10 mg 07/17/24 09:00 07/20/24 09:06 Amlodipine Besylate 5 Mg Tablet PO 08/16/24 08:59 10 mg QDAY RINA Administration Atorvastatin Calcium 80 mg 07/14/24 21:00 07/19/24 21:35 Atorvastatin Calcium 20 Mg Tablet PO 08/13/24 20:59 80 mg HS RINA Administration Bumetanide 2 mg 07/14/24 21:00 07/20/24 09:12 Bumetanide Inj 0.25 Mg/Ml Vial 4 Ml IVP 08/13/24 20:59 2 mg BID RINA Administration Collagenase 0 gm 07/17/24 21:00 07/19/24 23:12 Collagenase Oint 30 Gm Tube TOP 08/16/24 20:59 Not Given HS RINA Dextrose 25 ml 07/14/24 16:31 Dextrose 50%-Water Inj 50 Ml Syringe IV 08/13/24 16:30 Q15MIN PRN BG 50-70 responsive npo pt Dextrose 50 ml 07/14/24 16:31 Dextrose 50%-Water Inj 50 Ml Syringe IV 08/13/24 16:30 Q15MIN PRN BG <50 OR BG <70 & pt unresponsive Glucagon 1 mg 07/14/24 16:31 Glucagon Inj 1 Mg Vial IM Q15MIN PRN BG <70, and no IV access Ceftriaxone Sodium/Dextrose 50 mls @ 100 mls/hr 07/14/24 17:07 07/20/24 09:13 Rocephin/D5w 1gm Iv Premix IV 07/21/24 17:06 100 mls/hr QDAY RINA Administration Insulin Glargine 20 unit 07/18/24 21:00 Insulin Glargine (Lantus) 5 Unit/0.05 Ml (Per 5 Units) SC 08/17/24 20:59 HS [facility] Insulin Human Lispro 0 unit 07/14/24 17:00 07/20/24 11:45 Insulin Lispro (Admelog) 1 Unit/0.01 Ml Unit SC 08/13/24 16:59 1 unit ACHS RINA Administration Protocol Labetalol HCl 10 mg 07/18/24 11:44 Labetalol Inj 5 Mg/Ml Vial 20 Ml IVP 08/17/24 11:43 Q4H PRN SBP >180, DBP >120 and HR > 80 Lorazepam 1 mg 07/16/24 14:44 07/19/24 23:08 Lorazepam 2 Mg/Ml Vial IVP 07/21/24 14:43 1 mg Q8HR PRN Administration ANXIETY Losartan Potassium 100 mg 07/17/24 09:00 07/20/24 09:07 Losartan Potassium 25 Mg Tablet PO 08/16/24 08:59 100 mg QDAY RINA Administration Metoprolol Succinate 100 mg 07/18/24 09:00 07/20/24 09:07 Metoprolol Succinate Xl 25 Mg Tabcr PO 08/17/24 08:59 100 mg DAILY RINA Administration Morphine Sulfate 2 mg 07/20/24 08:48 Morphine Sulf Inj 10 Mg/Ml Vial IVP 07/25/24 02:35 Q6H PRN BREAKTHROUGH PAIN (SEVERE) Ondansetron HCl 4 mg 07/14/24 16:29 Ondansetron Inj 2 Mg/Ml Inj 2 Ml IV 08/13/24 16:28 Q6H PRN NAUSEA OR VOMITING Protocol Oxycodone/Acetaminophen 1 tab 07/19/24 20:40 07/20/24 07:38 Oxycodone/Apap 5/325 Tablet PO 07/24/24 20:39 1 tab Q6H PRN Administration PAIN SCALE 4-10(Mod-Sev Pantoprazole Sodium 40 mg 07/15/24 09:00 07/20/24 09:12 Pantoprazole Inj 40 Mg Vial IVP 08/14/24 08:59 40 mg BID RINA Administration Sodium Chloride 3 ml 07/14/24 12:01 07/14/24 12:11 Sodium Chloride Rt Radha 0.9% 3 Ml Nebu INH 08/13/24 12:00 3 ml PRN PRN Administration SOLN Plan Mr. Mekhi Fisher is a 54-year-old gentleman with past medical history of HFpEF(EF 55-60% 04/24/2024), coronary artery disease s/p stent 5 years ago, IDDM, CVA, carotid artery stenosis s/p bilateral endarterectomy 2018, pulmonary embolism on ELIQUIS, hypertension, obstructive sleep apnea, cirrhosis, history of vertebral hemangioma s/p radiation therapy who presented to the ED on 07/14/2024 with a chief complaint of shortness of breath. Due to the patient being agitated at the time of initial evaluation, history was obtained through chart review. Apparently the patient presented to the ED via EMS from [facility] to to acute onset SOB with oxygen desaturation to 87% whilst on 3L of supplemental oxygen. #Acute hypercapneic Encephalopathy (Improving)2/2 #Acute hypoxic hypercapnic respiratory failure 2/2 #Obstuctive sleep apnea, and #Obesity hypoventilation syndrome Patient with history of CAROLYN and OHS. Patient reportedly also has a longstanding smoking history. Patient was found to have elevated CO2 levels with Initial ABG showing 7.29/pCO2 56/HCO3 24. Most likely 2/2 to CAROLYN vs Obesity hypoventilation vs CHF exacerbation. Patient was started on BiPAP to allow for CO2 washout, however patient became agitated and was unable to comply with wearing BiPAP mask, despite receiving a total of Haldol 5 mg x 3 doses. Decision was made to upgrade the patient to ICU for sedation with precedex to allow for BiPAP compliance. 1.- off bipap and precedex drip -Ativan 1 Mg every 8 hours as needed for agitation -On high flow NC, we will transition to BiPAP at night -will continue to monitor #CHF exacerbation #HFpEF EF 55-60% 04/2024 -Patient with known history of Heart failure with reduced ejection fraction. Per nursing facilty, patient has been non-compliant with diuresis leading to fluid overload and Previous Echo report 04/24/2024: Normal LV size and function. Mild LVH. Grade I diastolic dsyfunction. Estimated EF 55-60%. Mild RV dilation. Normal RV function. Mild bi-atrial dilation. Trace MR, TR. Mild AV sclerosis without stenosis. There is a small circumferential pericardial effusion. No evidence of cardiac tamponade. BNP on admission: 539 Patient states he is not taking his LASIX. Physical exam notable for B/L 2+ lower extremity edema after diuresis, Bibasilar crackles CXR: enlargement of the cardiac contour with significant B/L vascular congestion and perihilar edema consistent with CHF. 07/15: Patient is net -1.7 L since admission 07/16-patient's net negative is -1.9 L in 24 hr 07/17- patient is negative 0.7 L in 24 hr 07/18- Negative by 600cc 07/19- Negative by 2085cc 07/20- Negative by 1140cc - Follow echocardiogram ? Continue BUMEX 2 mg BID ? Continue DuoNebs q6h PRN ? Continue BiPAP ? Started home METOPROLOL ? Strict IN & Out's #Acute normocytic blood loss anemia 2/2 #Lower GI bleed, DDx: UGI bleed 2/2 Duodenal ulcer Hg/HCT: 6.0/20.0%, on admission, he received 2 units of PRBC and his hemoglobin today is 8.7 Isolated elevated BUN consistent with upper GI bleed On recent admission, 06/25/2024 patient underwent upper endoscopy which showed small duodenal ulcer in the junction of duodenal bulb and descending duodenum gastritis. Colonoscopy done on 07/18/24 revealed polyp that was resected and sent for pathology reporting -Continue IV Protonix 40 mg BID -Hold NSAIDs, steroids, ASA -GI consulted, recommendations appreciated -Patient may needs EGD to reassess bleeding site, will be decided by Dr. Wakefield #Hyperosmolar hypervolemic hypernatremia, resolved 2/2 free water deficiency in the setting of decreased PO -Monitor CMP in the am #Coronary arterial disease s/p stent Patient with known history of coronary artery disease s/p stenting approximately 5 years. Prior records in 10/2023 show that cardiology services recommended the patient be discharged with aspirin and statin. However at discharge during that hospitalization, patient was not discharged with Aspirin. Review of recent medications also show that patient has not been on aspirin. -Will defer starting aspirin at this time due to active GI bleeding. -Will consider consulting cardiology for further recommendations -Hb >8 to be maintained #R/O UE DVT #History of Pulmonary Embolism Know history of PE with current use of Eliquis for anticoagulation. -Will hold Eliquis at this time due to acute blood loss anemia in setting of GI bleed -Ordered UE US doppler #Mild transaminitis, improving #Liver cirrhosis History of liver cirrhosis. Mildly elevated AST is on admission. -Continue to monitor with daily CMP -Ceftiraxone 1 gram QDAY as PXP in setting of ? GI bleed and cirrhosis #Hyperphosphatemia, resolved Monitor phosphate in a.m. # Uncontrolled IDDM type II A1c 13.6 from 04/2024. GLUCOSE 105 on admission. From last visit, patient has a history of INSULIN noncompliance, refusing INSULIN at times, not adherent with diet. ? Continue INSULIN GLARGINE 20 units HS (home dose 40 HS) - Hold patient's home Diabetes Medications - Patient started on Insulin Sliding scale - ACHS accucheks - Follow up QAM CMP glucose level #Sacral Decubitus Ulcer Patient noted to have an open wound at the gluteal fold above the coccyx. Appears to be a stage 2 ulcer. -Wound care referral. DVT prophylaxis: SCDs GI prophylaxis: Protonix twice daily Diet: Cardiac diet Lines: Peripheral IV Code status: Full code The patient's management plan was discussed with my attending physician MD Scott Lee MD, PGY2 Attending Provider Attestation/Addendum I reviewed labs, imaging, EKG, home medications and prior available records. Face to face evaluation was performed by me. I have personally examined the patient and discussed assessment and plan with the IM team. I reviewed the resident note and agree with the plan with exceptions as below. Acute hypoxic respiratory failure in the setting of CHF exacerbation Hyperactive agitation CHF exacerbation Acute anemia Hypertensive urgency Right upper extremity swelling ABG showed improvement in pH, pCO2 and pO2 He is alternating between nasal cannula and BiPAP Continue treatment of agitation as needed Pain management as needed Delirium precautions. Ordered CT head that was negative for acute changes Haloperidol as needed Continue IV Bumex Hemoglobin is stable. Status post colonoscopy that showed polyps status post polypectomy. Follow-up pathology results as outpatient. Advance diet as tolerated Ordered ultrasound of the upper extremities to rule out DVT Patient's biggest challenge is the frequent episodes of agitation and change in mental status in the setting of hypoxia, hypercarbia, and opiate side effect/withdrawal. That is complicated by his CHF, morbid obesity, and noncompliance with BiPAP and physical therapy, which keeps being a barrier to discharge. Discussed with the daughter today at the bedside. He is high risk for readmission. Will continue IV diuresis. BiPAP as tolerated. Wean off narcotics as tolerated. Weight reduction as outpatient.
[2024-07-20] MEDS: hydrALAZINE HCL 25 MG TABLET 50 MG PO ×2 (15:23→20:44)
--- NOTE | 2024-07-20 20:42 | PD.IMPROG ---
Documentation for date of: 07/20/24 Subjective Subjective Interval history: patient evaluated he is much more calmer today and not agitated Hemoglobin hematocrit 8.5 and 29.2 Exam Vital Signs Temp Pulse Resp BP Pulse Ox O2 Del Method O2 Flow Rate 97.1 F 68 18 170/84 H 92 L High Flow Nasal Cannula 07/20/24 16:00 07/20/24 16:00 07/20/24 16:00 07/20/24 16:00 07/20/24 16:00 07/20/24 16:00 07/20/24 16:00 FiO2 07/20/24 16:00 Routine Respiratory Exam Comments: Scattered rhonchi Routine Abdominal Exam Comments: Soft nontender Objective Labs 07/20/24 05:45 07/20/24 05:45 Labs: Laboratory Results - last 24 hr 07/20/24 05:45 WBC 7.6 RBC 3.31 L Hgb 8.5 L Hct 29.2 L MCV 88 MCH 25.7 MCHC 29.1 L RDW Std Deviation 49.7 H Plt Count 284 Neut % (Auto) 64 Lymph % (Auto) 18 [place] % (Auto) 11 Eos % (Auto) 6 Baso % (Auto) 1 Neut # (Auto) 4.9 Lymph # (Auto) 1.4 [place] # (Auto) 0.8 Eos # (Auto) 0.5 Baso # (Auto) 0.0 Immature Gran # (Auto) 0.06 H Absolute Nucleated RBC 0.00 Immature Gran % 1 H Nucleated RBC % 0 Sodium 144 Potassium 3.7 Chloride 104 Carbon Dioxide 30.9 Anion Gap 9 BUN 29 H Creatinine 1.0 Estim Creat Clear Calc 107.9 eGFR > 60 BUN/Creatinine Ratio 29 H Glucose 101 Calculated Osmolality 292 Calcium 8.9 Corrected Calcium 9.6 Phosphorus 3.6 Magnesium 2.0 Total Bilirubin 0.3 AST 48 H ALT 27 Alkaline Phosphatase 117 H Total Protein 6.8 Albumin 3.1 L Globulin 3.7 H Albumin/Globulin Ratio 0.8 L Impressions Impression: # Acute posthemorrhagic anemia if patient continues to drop hemoglobin hematocrit outpatient capsule endoscopy at a tertiary center ABG Interpretation ABG results: 07/14/24 07/15/24 07/15/24 16:37 00:44 03:54 ABG pH 7.29 L 7.31 L 7.32 L ABG pCO2 56 H 54 H 53 H ABG pO2 152 H 50 L* D 122 H D ABG HCO3 27 H 28 H 27 H ABG O2 Saturation 99 H 81 L 99 H ABG Base Excess 1 1 1 07/15/24 07/17/24 07/18/24 14:45 12:51 08:57 ABG pH 7.40 7.36 7.33 L ABG pCO2 45 58 H D 60 H ABG pO2 74 L D 109 H D 72 L D ABG HCO3 27 H 33 H 32 H ABG O2 Saturation 95 99 H 93 ABG Base Excess 2 6 H 5 H 07/19/24 08:35 ABG pH 7.36 ABG pCO2 57 H ABG pO2 268 H D ABG HCO3 32 H ABG O2 Saturation 99 H ABG Base Excess 6 H Assessment & Plan A&P Narrative # Anemia blood loss requiring blood transfusion Once patient's respiratory status stabilizes GoLytely prep and schedule colonoscopy Agree with the blood transfusion Other medical problems include # Acute hypoxic respiratory failure requiring BiPAP # CAROLYN # History congestive heart failure # CVA requiring bilateral endarterectomy IDDM # Pulmonary embolism on Eliquis Thank you very much for the opportunity to participate in the care of this patient Time Spent With Patient Time: Total time spent is greater than 50% in coordination of care (as documented) at patient's floor/unit and/or counseling patient:
[2024-07-20] MEDS: ATORVASTATIN CALCIUM 20 MG TABLET 80 MG PO (20:45)
[2024-07-21] VITALS (17 sets, daily range): BP systolic 143–165; BP diastolic 74–101; PULSE 59–87; RESP 12–21; TEMP 35.6–36.4; O2SAT 93–99; BMI 46.8; BMI 11.0
[2024-07-21] MEDS: hydrALAZINE HCL 25 MG TABLET 50 MG PO ×3 (05:12→21:00)
[2024-07-21 05:35] LABS: Basophils % (Auto) 0 % (0-2.5); Eosinophils # (Auto) 0.5 Thou/mm3 (0.0-0.5); Eosinophils % (Auto) 6 % (0-10); Hematocrit 29.1 % (41.0-53.0); Immature Granulocytes % (Auto) 1 % (0-0); Immature Granulocytes Auto 0.04 Thou/mm3 (0.00-0.00); Lymphocytes # (Auto) 1.6 Thou/mm3 (1.0-4.8); Lymphocytes % (Auto) 20 % (10-50); Mean Corpuscular HGB Conc 29.9 g/dl (31.0-37.0); Mean Corpuscular Hemoglobin 26.1 pg (25.0-35.0); Mean Corpuscular Volume 87 fL (80-100); Monocytes # (Auto) 0.8 Thou/mm3 (0.0-0.8); Monocytes % (Auto) 10 % (0-12); Neutrophils # (Auto) 5.1 Thou/mm3 (1.8-7.7); Neutrophils % (Auto) 63 % (37-80); Nucleated Red Blood Cell % 0 /100 WBC (0); Platelet Count 259 Thou/mm3 (140-440); RDW Standard Deviation 49.1 fL (35.1-43.9); Red Blood Count 3.33 Miln/mm3 (4.50-5.90); White Blood Count 8.1 Thou/mm3 (3.8-10.6)
[2024-07-21 05:45] LABS: Hemoglobin 8.7 g/dL (13.5-16.0)
[2024-07-21 06:06] LABS: Alanine Aminotransferase 23 U/L (10-49); Albumin, Serum 3.1 gm/dL (3.5-5.0); Albumin/Globulin Ratio 0.8 (1.2-2.2); Alkaline Phosphatase 110 U/L (46-116); Anion Gap 7 (7-16); Aspartate Amino Transferase 42 U/L (0-34); BUN/Creatinine Ratio 27 Ratio (12-20); Bilirubin,Total 0.2 mg/dL (0.3-1.2); Blood Urea Nitrogen 30 mg/dL (9-23); Calcium 8.9 mg/dL (8.3-10.6); Calcium (Corrected) 9.6 mg/dL (8.5-10.1); Carbon Dioxide 33.2 mMol/L (20.0-31.0); Chloride 105 mMol/L (98-107); Creatinine (Component) 1.1 mg/dL (0.6-1.3); Estimated Creatinine Clearance 98.1 mL/min (>60); Globulin 3.7 gm/dL (2.3-3.5); Glucose 150 mg/dL (74-106); Magnesium 1.9 mg/dL (1.6-2.6); Osmolality,Calculated 297 (275-295); Phosphorous 4.2 mg/dL (2.4-5.1); Potassium 4.1 mMol/L (3.4-5.1); Sodium 145 mMol/L (136-145); Total Protein 6.8 gm/dL (5.7-8.2); eGFR > 60 See Note
[2024-07-21] MEDS: INSULIN LISPRO (AdmeLOG) 1 UNIT/0.01 ML UNIT SC ×4 (07:21→21:02)
[2024-07-21] MEDS: oxyCODONE/APAP 5/325 TABLET 1 TAB PO ×3 (07:30→20:59)
[2024-07-21] MEDS: BUMETANIDE INJ 0.25 MG/ML VIAL 4 ML 2 MG IVP ×2 (09:21→21:00)
[2024-07-21] MEDS: PANTOPRAZOLE INJ 40 MG VIAL IVP ×2 (09:23→21:00)
[2024-07-21] MEDS: cefTRIAXone/D5w 1gm IV premix 50 ML IV (09:23)
[2024-07-21] MEDS: MORPHINE SULF INJ 10 MG/ML VIAL 2 MG IVP ×3 (09:24→23:06)
[2024-07-21] MEDS: LOSARTAN POTASSIUM 25 MG TABLET 100 MG PO (09:24)
[2024-07-21] MEDS: amLODIPine BESYLATE 5 MG TABLET 10 MG PO (09:24)
[2024-07-21] MEDS: METOPROLOL SUCCINATE XL 25 MG TABCR 100 MG PO (09:25)
--- NOTE | 2024-07-21 11:28 | PC.NURSE ---
Pt blood pressure 182/82. Rechecked 160/101. HR is 66. Contacted Dr. Moses and made aware. No new orders given. Will continue to monitor.
--- NOTE | 2024-07-21 15:07 | ESPR_ITS ---
<Statement entered by Kiley Parks MD - 07/25/24 15:41> I reviewed above note and agree with findings and plans. I have also personally examined the patient with medicine team and went over assessment and plan with medical team including quality assurance intern and resident physician. Documentation for date of: 07/21/24 Subjective Subjective Interval history: Patient seen at bedside. Has shown significant improvements, even his mental status, not agitated and is AAOx3. He is still on high flow oxygen with FiO2 70% on requiring BiPAP at night. Patient is also still being diuresed-I&O: 2089/2299 with negative balance of 210. Exam Vital Signs Temp Pulse Resp BP Pulse Ox O2 Del Method O2 Flow Rate 96.9 F 82 12 146/86 H 99 High Flow Nasal Cannula 20 07/21/24 11:34 07/21/24 14:36 07/21/24 14:36 07/21/24 14:07 07/21/24 14:36 07/21/24 11:34 07/21/24 14:36 FiO2 55 07/21/24 14:36 Narrative Exam GENERAL: AAOX3, morbidly obese, calm in bed NEURO: RIDING INSTRUCTOR grossly intact, moves extremities x4 HEENT: Moist mucosa. Eyes open, symmetrical, & clear CARDIO: No chest pain on palpation. Heart RRR, no obvious murmurs PULM: No noted coughing/dyspnea.On HFNC at 70% Mild crackles on auscultation GI: Abdomen soft, nondistended, no pain on palpation. BSx4 URO/QUALITY ASSURANCE/R&D LAB TECHNICIAN:: No further abnormalities noted. SKIN/MSK/EXT: Bilateral pitting edema, reolving Objective Labs 07/21/24 05:06 07/21/24 05:06 Labs: Laboratory Results - last 24 hr 07/21/24 05:06 WBC 8.1 RBC 3.33 L Hgb 8.7 L Hct 29.1 L MCV 87 MCH 26.1 MCHC 29.9 L RDW Std Deviation 49.1 H Plt Count 259 Neut % (Auto) 63 Lymph % (Auto) 20 [place] % (Auto) 10 Eos % (Auto) 6 Baso % (Auto) 0 Neut # (Auto) 5.1 Lymph # (Auto) 1.6 [place] # (Auto) 0.8 Eos # (Auto) 0.5 Baso # (Auto) 0.0 Immature Gran # (Auto) 0.04 H Absolute Nucleated RBC 0.00 Immature Gran % 1 H Nucleated RBC % 0 Sodium 145 Potassium 4.1 Chloride 105 Carbon Dioxide 33.2 H Anion Gap 7 BUN 30 H Creatinine 1.1 Estim Creat Clear Calc 98.1 eGFR > 60 BUN/Creatinine Ratio 27 H Glucose 150 H Calculated Osmolality 297 H Calcium 8.9 Corrected Calcium 9.6 Phosphorus 4.2 Magnesium 1.9 Total Bilirubin 0.2 L AST 42 H ALT 23 Alkaline Phosphatase 110 Total Protein 6.8 Albumin 3.1 L Globulin 3.7 H Albumin/Globulin Ratio 0.8 L ABG Interpretation ABG results: 07/14/24 07/15/24 07/15/24 16:37 00:44 03:54 ABG pH 7.29 L 7.31 L 7.32 L ABG pCO2 56 H 54 H 53 H ABG pO2 152 H 50 L* D 122 H D ABG HCO3 27 H 28 H 27 H ABG O2 Saturation 99 H 81 L 99 H ABG Base Excess 1 1 1 07/15/24 07/17/24 07/18/24 14:45 12:51 08:57 ABG pH 7.40 7.36 7.33 L ABG pCO2 45 58 H D 60 H ABG pO2 74 L D 109 H D 72 L D ABG HCO3 27 H 33 H 32 H ABG O2 Saturation 95 99 H 93 ABG Base Excess 2 6 H 5 H 07/19/24 08:35 ABG pH 7.36 ABG pCO2 57 H ABG pO2 268 H D ABG HCO3 32 H ABG O2 Saturation 99 H ABG Base Excess 6 H Quality Measures Quality Measures none Assessment & Plan Assessment Current Active Medications: Generic Name Dose Route Start Last Admin Trade Name Freq PRN Reason Stop Dose Admin Acetaminophen 650 mg 07/14/24 16:29 Acetaminophen 325 Mg Tablet PO 08/13/24 16:28 Q6H PRN PAIN SCALE 1-3 (mild Acetaminophen 650 mg 07/14/24 16:29 Acetaminophen 325 Mg Tablet PO 08/13/24 16:28 Q6H PRN Fever >100 Albuterol/Ipratropium 3 ml 07/18/24 11:40 07/20/24 22:30 Albuterol/Ipratropium (Duoneb) Rt Radha 3 Ml Nebu INH 08/13/24 18:59 3 ml Q4HRRT PRN Administration SHORTNESS OF BREATH Amlodipine Besylate 10 mg 07/17/24 09:00 07/21/24 09:24 Amlodipine Besylate 5 Mg Tablet PO 08/16/24 08:59 10 mg QDAY RINA Administration Atorvastatin Calcium 80 mg 07/14/24 21:00 07/20/24 20:45 Atorvastatin Calcium 20 Mg Tablet PO 08/13/24 20:59 80 mg HS RINA Administration Bumetanide 2 mg 07/14/24 21:00 07/21/24 09:21 Bumetanide Inj 0.25 Mg/Ml Vial 4 Ml IVP 08/13/24 20:59 2 mg BID RINA Administration Collagenase 0 gm 07/17/24 21:00 07/20/24 20:45 Collagenase Oint 30 Gm Tube TOP 08/16/24 20:59 Not Given HS RINA Dextrose 25 ml 07/14/24 16:31 Dextrose 50%-Water Inj 50 Ml Syringe IV 08/13/24 16:30 Q15MIN PRN BG 50-70 responsive npo pt Dextrose 50 ml 07/14/24 16:31 Dextrose 50%-Water Inj 50 Ml Syringe IV 08/13/24 16:30 Q15MIN PRN BG <50 OR BG <70 & pt unresponsive Glucagon 1 mg 07/14/24 16:31 Glucagon Inj 1 Mg Vial IM Q15MIN PRN BG <70, and no IV access Hydralazine HCl 50 mg 07/20/24 15:15 07/21/24 14:07 Hydralazine Hcl 25 Mg Tablet PO 08/19/24 15:14 50 mg TID RINA Administration Ceftriaxone Sodium/Dextrose 50 mls @ 100 mls/hr 07/14/24 17:07 07/21/24 09:23 Rocephin/D5w 1gm Iv Premix IV 07/21/24 17:06 100 mls/hr QDAY RINA Administration Insulin Glargine 20 unit 07/21/24 14:46 Insulin Glargine (Lantus) 5 Unit/0.05 Ml (Per 5 Units) SC 08/17/24 20:59 [facility] Insulin Human Lispro 0 unit 07/14/24 17:00 07/21/24 11:23 Insulin Lispro (Admelog) 1 Unit/0.01 Ml Unit SC 08/13/24 16:59 1 unit ACHS RINA Administration Protocol Labetalol HCl 10 mg 07/18/24 11:44 Labetalol Inj 5 Mg/Ml Vial 20 Ml IVP 08/17/24 11:43 Q4H PRN SBP >180, DBP >120 and HR > 80 Losartan Potassium 100 mg 07/17/24 09:00 07/21/24 09:24 Losartan Potassium 25 Mg Tablet PO 08/16/24 08:59 100 mg QDAY RINA Administration Metoprolol Succinate 100 mg 07/18/24 09:00 07/21/24 09:25 Metoprolol Succinate Xl 25 Mg Tabcr PO 08/17/24 08:59 100 mg DAILY RINA Administration Morphine Sulfate 2 mg 07/20/24 08:48 07/21/24 09:24 Morphine Sulf Inj 10 Mg/Ml Vial IVP 07/25/24 02:35 2 mg Q6H PRN Administration BREAKTHROUGH PAIN (SEVERE) Ondansetron HCl 4 mg 07/14/24 16:29 Ondansetron Inj 2 Mg/Ml Inj 2 Ml IV 08/13/24 16:28 Q6H PRN NAUSEA OR VOMITING Protocol Oxycodone/Acetaminophen 1 tab 07/19/24 20:40 07/21/24 14:08 Oxycodone/Apap 5/325 Tablet PO 07/24/24 20:39 1 tab Q6H PRN Administration PAIN SCALE 4-10(Mod-Sev Pantoprazole Sodium 40 mg 07/15/24 09:00 07/21/24 09:23 Pantoprazole Inj 40 Mg Vial IVP 08/14/24 08:59 40 mg BID RINA Administration Sodium Chloride 3 ml 07/14/24 12:01 07/14/24 12:11 Sodium Chloride Rt Radha 0.9% 3 Ml Nebu INH 08/13/24 12:00 3 ml PRN PRN Administration SOLN Plan [place]: Mr. Mekhi Fisher is a 54-year-old gentleman with past medical history of HFpEF(EF 55-60% 04/24/2024), coronary artery disease s/p stent 5 years ago, IDDM, CVA, carotid artery stenosis s/p bilateral endarterectomy 2018, pulmonary embolism on ELIQUIS, hypertension, obstructive sleep apnea, cirrhosis, history of vertebral hemangioma s/p radiation therapy who presented to the ED on 07/14/2024 with a chief complaint of shortness of breath. Due to the patient being agitated at the time of initial evaluation, history was obtained through chart review. Apparently the patient presented to the ED via EMS from [facility] to to acute onset SOB with oxygen desaturation to 87% whilst on 3L of supplemental oxygen. #Acute hypercapneic Encephalopathy (Improving)2/2 #Acute hypoxic hypercapnic respiratory failure 2/2 #Obstuctive sleep apnea, and #Obesity hypoventilation syndrome Patient with history of CAROLYN and OHS. Patient reportedly also has a longstanding smoking history. Patient was found to have elevated CO2 levels with Initial ABG showing 7.29/pCO2 56/HCO3 24. Most likely 2/2 to CAROLYN vs Obesity hypoventilation vs CHF exacerbation. Patient was started on BiPAP to allow for CO2 washout, however patient became agitated and was unable to comply with wearing BiPAP mask, despite receiving a total of Haldol 5 mg x 3 doses. Decision was made to upgrade the patient to ICU for sedation with precedex to allow for BiPAP compliance. 1.26- off bipap and precedex drip -Ativan 1 Mg every 8 hours as needed for agitation Plan: -Continue to titrate oxygen -Continue DuoNebs as needed -BiPAP at night #CHF exacerbation #HFpEF EF 55-60% 04/2024 -Patient with known history of Heart failure with reduced ejection fraction. Per nursing facilty, patient has been non-compliant with diuresis leading to fluid overload and Previous Echo report 04/24/2024: Normal LV size and function. Mild LVH. Grade I diastolic dsyfunction. Estimated EF 55-60%. Mild RV dilation. Normal RV function. Mild bi-atrial dilation. Trace MR, TR. Mild AV sclerosis without stenosis. There is a small circumferential pericardial effusion. No evidence of cardiac tamponade. BNP on admission: 539 Patient states he is not taking his LASIX. Physical exam notable for B/L 2+ lower extremity edema after diuresis, Bibasilar crackles CXR: enlargement of the cardiac contour with significant B/L vascular congestion and perihilar edema consistent with CHF. Plan: ? Continue BUMEX 2 mg BID ? Continue DuoNebs q6h PRN ? Continue BiPAP ? Started home METOPROLOL ? Strict IN & Out's - Cardiology consulted, appreciate recommendations #Acute normocytic blood loss anemia 2/2 #Lower GI bleed, DDx: UGI bleed 2/2 Duodenal ulcer Hg/HCT: 6.0/20.0%, on admission, he received 2 units of PRBC and his hemoglobin today is 8.7 Isolated elevated BUN consistent with upper GI bleed On recent admission, 06/25/2024 patient underwent upper endoscopy which showed small duodenal ulcer in the junction of duodenal bulb and descending duodenum gastritis. Colonoscopy done on 07/18/24 revealed polyp that was resected and sent for pathology reporting Plan: -Continue IV Protonix 40 mg BID -Hold NSAIDs, steroids, ASA -GI consulted, recommendations appreciated -GI Dr Wakefield consulted, appreciate recommendations #Hyperosmolar hypervolemic hypernatremia, resolved 2/2 free water deficiency in the setting of decreased PO -Monitor CMP in the am #Coronary arterial disease s/p stent Patient with known history of coronary artery disease s/p stenting approximately 5 years. Prior records in 10/2023 show that cardiology services recommended the patient be discharged with aspirin and statin. However at discharge during that hospitalization, patient was not discharged with Aspirin. Review of recent medications also show that patient has not been on aspirin. Plan: -Will defer starting aspirin at this time due to active GI bleeding. -Cardiology consulted, appreciate recommendations -Hb >8 to be maintained #R/O UE DVT #History of Pulmonary Embolism Know history of PE with current use of Eliquis for anticoagulation. -Will hold Eliquis at this time due to acute blood loss anemia in setting of GI bleed -Ordered UE US doppler, negative for DVT #Mild transaminitis, improving #Liver cirrhosis History of liver cirrhosis. Mildly elevated AST is on admission. -Continue to monitor with daily CMP #Hyperphosphatemia, resolved Monitor phosphate in a.m. # Uncontrolled IDDM type II A1c 13.6 from 04/2024. GLUCOSE 105 on admission. From last visit, patient has a history of INSULIN noncompliance, refusing INSULIN at times, not adherent with diet. ? Continue INSULIN GLARGINE 20 units HS (home dose 40 HS) - Hold patient's home Diabetes Medications - Patient started on Insulin Sliding scale - ACHS accucheks - Follow up QAM CMP glucose level #Sacral Decubitus Ulcer Patient noted to have an open wound at the gluteal fold above the coccyx. Appears to be a stage 2 ulcer. -Wound care referral. DVT prophylaxis: SCDs GI prophylaxis: Protonix twice daily Diet: Cardiac diet Lines: Peripheral IV Code status: Full code Case was discussed with Dr Moses PGY-2 and attending physician, Dr Kasey Ching MD PGY-1 Senior Resident Attestation: The patient is a 54-year-old male with significant past medical history of HFpEF LVEF 55 to 60% on 04/24/2024, CAD s/p stent 5 years ago, insulin-dependent diabetes mellitus, CVA, carotid artery stenosis s/p bilateral endarterectomy in 2019, pulmonary embolism on Eliquis, hypertension, obstructive sleep apnea, cirrhosis, history of vertebral hemangioma s/p radiation therapy presented to ED on 07/14/2024 with chief complaint of SOB was found to have acute hypercapnic encephalopathy secondary to acute hypoxic hypercapnic respiratory failure in the setting of CHF exacerbation. The patient reported doing well this morning. He was alert and oriented x 3 after couple days. He has been negative by around 9 L since admission. However, he is still on high flow NC. We will continue to diurese him with Bumex 2 mg twice daily, and continue to taper down his oxygen and transition to nasal cannula. Will continue with BiPAP at night. Cardiology consultation was done, pending further recommendations. I discussed with and supervised the quality assurance intern physician involved in the care of this patient. I personally saw and examined the patient and discussed the assessment and plan with the entire medicine team, including my attending. I agree with the assessment and plan as documented above. Scott Moses MD PGY2 Internal Medicine
--- NOTE | 2024-07-21 19:56 | PD.IMPROG ---
Documentation for date of: 07/21/24 Subjective Subjective Interval history: Patient evaluated hemoglobin hematocrit 9.9 and 31.4 Exam Vital Signs Temp Pulse Resp BP Pulse Ox O2 Del Method O2 Flow Rate 97.4 F 66 18 161/94 H 98 High Flow Nasal Cannula 20 07/21/24 16:00 07/21/24 16:00 07/21/24 16:00 07/21/24 16:00 07/21/24 16:00 07/21/24 16:00 07/21/24 16:00 FiO2 55 07/21/24 16:00 Objective Labs 07/21/24 05:06 07/21/24 05:06 Labs: Laboratory Results - last 24 hr 07/21/24 05:06 WBC 8.1 RBC 3.33 L Hgb 8.7 L Hct 29.1 L MCV 87 MCH 26.1 MCHC 29.9 L RDW Std Deviation 49.1 H Plt Count 259 Neut % (Auto) 63 Lymph % (Auto) 20 [place] % (Auto) 10 Eos % (Auto) 6 Baso % (Auto) 0 Neut # (Auto) 5.1 Lymph # (Auto) 1.6 [place] # (Auto) 0.8 Eos # (Auto) 0.5 Baso # (Auto) 0.0 Immature Gran # (Auto) 0.04 H Absolute Nucleated RBC 0.00 Immature Gran % 1 H Nucleated RBC % 0 Sodium 145 Potassium 4.1 Chloride 105 Carbon Dioxide 33.2 H Anion Gap 7 BUN 30 H Creatinine 1.1 Estim Creat Clear Calc 98.1 eGFR > 60 BUN/Creatinine Ratio 27 H Glucose 150 H Calculated Osmolality 297 H Calcium 8.9 Corrected Calcium 9.6 Phosphorus 4.2 Magnesium 1.9 Total Bilirubin 0.2 L AST 42 H ALT 23 Alkaline Phosphatase 110 Total Protein 6.8 Albumin 3.1 L Globulin 3.7 H Albumin/Globulin Ratio 0.8 L Impressions Impression: # Acute posthemorrhagic anemia continue to monitor CBC ABG Interpretation ABG results: 07/14/24 07/15/24 07/15/24 16:37 00:44 03:54 ABG pH 7.29 L 7.31 L 7.32 L ABG pCO2 56 H 54 H 53 H ABG pO2 152 H 50 L* D 122 H D ABG HCO3 27 H 28 H 27 H ABG O2 Saturation 99 H 81 L 99 H ABG Base Excess 1 1 1 07/15/24 07/17/24 07/18/24 14:45 12:51 08:57 ABG pH 7.40 7.36 7.33 L ABG pCO2 45 58 H D 60 H ABG pO2 74 L D 109 H D 72 L D ABG HCO3 27 H 33 H 32 H ABG O2 Saturation 95 99 H 93 ABG Base Excess 2 6 H 5 H 07/19/24 08:35 ABG pH 7.36 ABG pCO2 57 H ABG pO2 268 H D ABG HCO3 32 H ABG O2 Saturation 99 H ABG Base Excess 6 H Assessment & Plan A&P Narrative # Anemia blood loss requiring blood transfusion Once patient's respiratory status stabilizes GoLytely prep and schedule colonoscopy Agree with the blood transfusion Other medical problems include # Acute hypoxic respiratory failure requiring BiPAP # CAROLYN # History congestive heart failure # CVA requiring bilateral endarterectomy IDDM # Pulmonary embolism on Eliquis Thank you very much for the opportunity to participate in the care of this patient Time Spent With Patient Time: Total time spent is greater than 50% in coordination of care (as documented) at patient's floor/unit and/or counseling patient:
[2024-07-21] MEDS: ATORVASTATIN CALCIUM 20 MG TABLET 80 MG PO (20:59)
[2024-07-21] MEDS: COLLAGENASE OINT 30 GM TUBE TOP (21:01)
[2024-07-22] VITALS (19 sets, daily range): BP systolic 145–179; BP diastolic 61–99; PULSE 64–81; RESP 13–22; TEMP 36.1–36.3; O2SAT 96–100; BMI 46.9
[2024-07-22] MEDS: oxyCODONE/APAP 5/325 TABLET 1 TAB PO ×4 (02:50→20:55)
[2024-07-22] MEDS: MORPHINE SULF INJ 10 MG/ML VIAL 2 MG IVP ×4 (05:00→23:43)
[2024-07-22] MEDS: hydrALAZINE HCL 25 MG TABLET 50 MG PO ×2 (05:00→13:30)
[2024-07-22 06:18] LABS: Basophils % (Auto) 0 % (0-2.5); Eosinophils # (Auto) 0.4 Thou/mm3 (0.0-0.5); Eosinophils % (Auto) 6 % (0-10); Hematocrit 28.1 % (41.0-53.0); Immature Granulocytes % (Auto) 1 % (0-0); Immature Granulocytes Auto 0.05 Thou/mm3 (0.00-0.00); Lymphocytes # (Auto) 1.4 Thou/mm3 (1.0-4.8); Lymphocytes % (Auto) 18 % (10-50); Mean Corpuscular HGB Conc 30.2 g/dl (31.0-37.0); Mean Corpuscular Hemoglobin 26.2 pg (25.0-35.0); Mean Corpuscular Volume 87 fL (80-100); Monocytes # (Auto) 0.8 Thou/mm3 (0.0-0.8); Monocytes % (Auto) 11 % (0-12); Neutrophils % (Auto) 65 % (37-80); Nucleated Red Blood Cell % 0 /100 WBC (0); Platelet Count 227 Thou/mm3 (140-440); RDW Standard Deviation 49.1 fL (35.1-43.9); Red Blood Count 3.25 Miln/mm3 (4.50-5.90); White Blood Count 7.7 Thou/mm3 (3.8-10.6)
[2024-07-22 06:25] LABS: Hemoglobin 8.5 g/dL (13.5-16.0)
[2024-07-22 06:52] LABS: Alanine Aminotransferase 21 U/L (10-49); Albumin, Serum 3.1 gm/dL (3.5-5.0); Albumin/Globulin Ratio 0.9 (1.2-2.2); Alkaline Phosphatase 100 U/L (46-116); Anion Gap 7 (7-16); Aspartate Amino Transferase 42 U/L (0-34); BUN/Creatinine Ratio 29 Ratio (12-20); Bilirubin,Total 0.2 mg/dL (0.3-1.2); Blood Urea Nitrogen 32 mg/dL (9-23); Calcium 8.7 mg/dL (8.3-10.6); Calcium (Corrected) 9.4 mg/dL (8.5-10.1); Chloride 104 mMol/L (98-107); Creatinine (Component) 1.1 mg/dL (0.6-1.3); Estimated Creatinine Clearance 98.1 mL/min (>60); Globulin 3.6 gm/dL (2.3-3.5); Glucose 148 mg/dL (74-106); Magnesium 1.9 mg/dL (1.6-2.6); Osmolality,Calculated 294 (275-295); Phosphorous 4.2 mg/dL (2.4-5.1); Potassium 4.3 mMol/L (3.4-5.1); Sodium 143 mMol/L (136-145); Total Protein 6.7 gm/dL (5.7-8.2); eGFR > 60 See Note
[2024-07-22] MEDS: INSULIN LISPRO (AdmeLOG) 1 UNIT/0.01 ML UNIT SC ×4 (07:40→20:56)
[2024-07-22] MEDS: LOSARTAN POTASSIUM 25 MG TABLET 100 MG PO (09:15)
[2024-07-22] MEDS: PANTOPRAZOLE INJ 40 MG VIAL IVP ×2 (09:15→20:56)
[2024-07-22] MEDS: amLODIPine BESYLATE 5 MG TABLET 10 MG PO (09:16)
[2024-07-22] MEDS: METOPROLOL SUCCINATE XL 25 MG TABCR 50 MG PO (09:16)
[2024-07-22] MEDS: BUMETANIDE 0.5 MG TABLET 2 MG PO ×2 (09:17→20:55)
--- NOTE | 2024-07-22 16:01 | ESPR_ITS ---
<Statement entered by Kiley Parks MD - 07/28/24 15:57> I reviewed above note and agree with findings and plans. I have also personally examined the patient with medicine team and went over assessment and plan with medical team including grad intern and resident physician. Documentation for date of: 07/22/24 Subjective Subjective Interval history: Patient seen at bedside. No acute events overnight, patient is at his baseline, with minimal requirement of oxygen Patient has transition off of high flow oxygen with FiO2 70% --> 4 L via nasal cannula. Continue BiPAP at night for OHS. Will dicharge on increased dose of Bumex 1mg -> 2mg daily Disposition: Anticipate discharge in 24-48 hours once insurance authorization completed for SNF Exam Vital Signs Temp Pulse Resp BP Pulse Ox O2 Del Method O2 Flow Rate 96.9 F 68 18 173/88 H 99 Nasal Cannula 4 07/22/24 15:34 07/22/24 15:34 07/22/24 15:34 07/22/24 15:34 07/22/24 15:34 07/22/24 15:34 07/22/24 15:34 FiO2 40 07/22/24 12:00 Narrative Exam Constitutional Alert, oriented x4 and on 4L via NC, morbidly obese HEENT Vision grossly intact. Patent nares. Trachea midline. Respiratory Chest normal on inspection and clear to auscultation bilaterally. Cardiovascular S1 and S2 audible, RRR. No murmurs or carotid bruit. No gross JVD. Abdominal Soft and non tender to palpation in all quadrants. BS + Genitourinary No bladder tenderness, no flank pain. Normal to palpation. Musculoskeletal Extremities tone within normal limits. 2+ LE edema - improving Neurological CN II - XII grossly intact. Extremity motor and sensation grossly intact. Skin Warm, dry and intact. No apparent lesions. Psychiatric Patient has a good affect, is cooperative. Objective Labs 07/22/24 05:20 07/22/24 05:20 Labs: Laboratory Results - last 24 hr 07/22/24 05:20 WBC 7.7 RBC 3.25 L Hgb 8.5 L Hct 28.1 L MCV 87 MCH 26.2 MCHC 30.2 L RDW Std Deviation 49.1 H Plt Count 227 D Neut % (Auto) 65 Lymph % (Auto) 18 [place] % (Auto) 11 Eos % (Auto) 6 Baso % (Auto) 0 Neut # (Auto) 5.0 Lymph # (Auto) 1.4 [place] # (Auto) 0.8 Eos # (Auto) 0.4 Baso # (Auto) 0.0 Immature Gran # (Auto) 0.05 H Absolute Nucleated RBC 0.00 Immature Gran % 1 H Nucleated RBC % 0 Sodium 143 Potassium 4.3 Chloride 104 Carbon Dioxide 32.0 H Anion Gap 7 BUN 32 H Creatinine 1.1 Estim Creat Clear Calc 98.1 eGFR > 60 BUN/Creatinine Ratio 29 H Glucose 148 H Calculated Osmolality 294 Calcium 8.7 Corrected Calcium 9.4 Phosphorus 4.2 Magnesium 1.9 Total Bilirubin 0.2 L AST 42 H ALT 21 Alkaline Phosphatase 100 Total Protein 6.7 Albumin 3.1 L Globulin 3.6 H Albumin/Globulin Ratio 0.9 L ABG Interpretation ABG results: 07/14/24 07/15/24 07/15/24 16:37 00:44 03:54 ABG pH 7.29 L 7.31 L 7.32 L ABG pCO2 56 H 54 H 53 H ABG pO2 152 H 50 L* D 122 H D ABG HCO3 27 H 28 H 27 H ABG O2 Saturation 99 H 81 L 99 H ABG Base Excess 1 1 1 07/15/24 07/17/24 07/18/24 14:45 12:51 08:57 ABG pH 7.40 7.36 7.33 L ABG pCO2 45 58 H D 60 H ABG pO2 74 L D 109 H D 72 L D ABG HCO3 27 H 33 H 32 H ABG O2 Saturation 95 99 H 93 ABG Base Excess 2 6 H 5 H 07/19/24 08:35 ABG pH 7.36 ABG pCO2 57 H ABG pO2 268 H D ABG HCO3 32 H ABG O2 Saturation 99 H ABG Base Excess 6 H Quality Measures Quality Measures none Assessment & Plan Assessment Current Active Medications: Generic Name Dose Route Start Last Admin Trade Name Freq PRN Reason Stop Dose Admin Acetaminophen 650 mg 07/14/24 16:29 Acetaminophen 325 Mg Tablet PO 08/13/24 16:28 Q6H PRN PAIN SCALE 1-3 (mild Acetaminophen 650 mg 07/14/24 16:29 Acetaminophen 325 Mg Tablet PO 08/13/24 16:28 Q6H PRN Fever >100 Albuterol/Ipratropium 3 ml 07/18/24 11:40 07/20/24 22:30 Albuterol/Ipratropium (Duoneb) Rt Radha 3 Ml Nebu INH 08/13/24 18:59 3 ml Q4HRRT PRN Administration SHORTNESS OF BREATH Atorvastatin Calcium 80 mg 07/14/24 21:00 07/21/24 20:59 Atorvastatin Calcium 20 Mg Tablet PO 08/13/24 20:59 80 mg HS RINA Administration Bumetanide 2 mg 07/22/24 09:00 07/22/24 09:17 Bumetanide 0.5 Mg Tablet PO 08/21/24 08:59 2 mg BID RINA Administration Collagenase 0 gm 07/17/24 21:00 07/21/24 21:01 Collagenase Oint 30 Gm Tube TOP 08/16/24 20:59 1 applicatio HS RINA Administration Dextrose 25 ml 07/14/24 16:31 Dextrose 50%-Water Inj 50 Ml Syringe IV 08/13/24 16:30 Q15MIN PRN BG 50-70 responsive npo pt Dextrose 50 ml 07/14/24 16:31 Dextrose 50%-Water Inj 50 Ml Syringe IV 08/13/24 16:30 Q15MIN PRN BG <50 OR BG <70 & pt unresponsive Glucagon 1 mg 07/14/24 16:31 Glucagon Inj 1 Mg Vial IM Q15MIN PRN BG <70, and no IV access Hydralazine HCl 50 mg 07/20/24 15:15 07/22/24 13:30 Hydralazine Hcl 25 Mg Tablet PO 08/19/24 15:14 50 mg TID RINA Administration Insulin Glargine 20 unit 07/21/24 14:46 Insulin Glargine (Lantus) 5 Unit/0.05 Ml (Per 5 Units) SC 08/17/24 20:59 HS RINA Insulin Human Lispro 0 unit 07/14/24 17:00 07/22/24 11:37 Insulin Lispro (Admelog) 1 Unit/0.01 Ml Unit SC 08/13/24 16:59 1 unit ACHS RINA Administration Protocol Labetalol HCl 10 mg 07/18/24 11:44 Labetalol Inj 5 Mg/Ml Vial 20 Ml IVP 08/17/24 11:43 Q4H PRN SBP >180, DBP >120 and HR > 80 Losartan Potassium 100 mg 07/17/24 09:00 07/22/24 09:15 Losartan Potassium 25 Mg Tablet PO 08/16/24 08:59 100 mg QDAY IRNA Administration Metoprolol Succinate 50 mg 07/22/24 09:00 07/22/24 09:16 Metoprolol Succinate Xl 25 Mg Tabcr PO 08/21/24 08:59 50 mg DAILY RINA Administration Morphine Sulfate 2 mg 07/20/24 08:48 07/22/24 11:38 Morphine Sulf Inj 10 Mg/Ml Vial IVP 07/25/24 02:35 2 mg Q6H PRN Administration BREAKTHROUGH PAIN (SEVERE) Nifedipine 30 mg 07/22/24 16:00 Nifedipine Xl 30 Mg Tabcr PO 08/21/24 15:59 TID RINA Ondansetron HCl 4 mg 07/14/24 16:29 Ondansetron Inj 2 Mg/Ml Inj 2 Ml IV 08/13/24 16:28 Q6H PRN NAUSEA OR VOMITING Protocol Oxycodone/Acetaminophen 1 tab 07/19/24 20:40 07/22/24 15:25 Oxycodone/Apap 5/325 Tablet PO 07/24/24 20:39 1 tab Q6H PRN Administration PAIN SCALE 4-10(Mod-Sev Pantoprazole Sodium 40 mg 07/15/24 09:00 07/22/24 09:15 Pantoprazole Inj 40 Mg Vial IVP 08/14/24 08:59 40 mg BID RINA Administration Sodium Chloride 3 ml 07/14/24 12:01 07/14/24 12:11 Sodium Chloride Rt Radha 0.9% 3 Ml Nebu INH 08/13/24 12:00 3 ml PRN PRN Administration SOLN Plan Mr. Mekhi Fisher is a 54-year-old gentleman with past medical history of HFpEF(EF 55-60% 04/24/2024), coronary artery disease s/p stent 5 years ago, IDDM, CVA, carotid artery stenosis s/p bilateral endarterectomy 2018, pulmonary embolism on ELIQUIS, hypertension, obstructive sleep apnea, cirrhosis, history of vertebral hemangioma s/p radiation therapy who presented to the ED on 07/14/2024 with a chief complaint of shortness of breath. Due to the patient being agitated at the time of initial evaluation, history was obtained through chart review. Apparently the patient presented to the ED via EMS from [facility] to to acute onset SOB with oxygen desaturation to 87% whilst on 3L of supplemental oxygen. 1. Acute hypercapneic Encephalopathy (Improving) 2. Acute hypoxic hypercapnic respiratory failure In the setting of 3. Obesity hypoventilation syndrome - Patient with history of CAROLYN and OHS given morbid obesity BMI >45 - Longstanding smoking history, found to have elevated CO2 levels - Initial ABG showing : 7.29/pCO2 56/HCO3 24. - Started on BiPAP to allow for CO2 washout, however patient became agitated and was unable to comply with wearing BiPAP mask, despite receiving a total of Haldol 5 mg x 3 doses. - Decision was made to upgrade the patient to ICU for sedation with precedex to allow for BiPAP compliance. - PRN Ativan 1 Mg every 8 hours as needed for agitation Plan: - Continue to titrate off of oxygen to RA - Continue DuoNebs as needed - Advised strict BiPAP at night 4. CHF exacerbation 5. HFpEF EF 55-60% 04/2024 - Patient with known history of Heart failure with reduced ejection fraction. - Per nursing facilty, patient has been non-compliant with diuresis leading to fluid overload and - 04/24/2024 ECHO : HFpEF LVEF 55 to 60% - BNP = 539 (Patient states he is not taking his LASIX) - On presentation, physical exam notable for B/L 2+ lower extremity edema after diuresis, Bibasilar crackles - CXR: enlargement of the cardiac contour with significant B/L vascular congestion and perihilar edema consistent with CHF. Plan: ? Continue BUMEX 2 mg PO BID ? Continue DuoNebs q6h PRN ? Continue BiPAP ? Started home METOPROLOL ? Strict IN & Out's - Cardiology consulted, appreciate recommendations 6. Acute normocytic blood loss anemia 2/2 7. Lower GI bleed, DDx: UGI bleed 2/2 Duodenal ulcer Hg/HCT: 6.0/20.0%, on admission, he received 2 units of PRBC and his hemoglobin today is 8.7 Isolated elevated BUN consistent with upper GI bleed 06/25/2024 EGD : small duodenal ulcer in the junction of duodenal bulb and descending duodenum gastritis. 07/18/24 Colonoscopy : polyp that was resected and sent for pathology reporting Plan: - Continue IV Protonix 40 mg BID - Hold NSAIDs, steroids, ASA - GI consulted, recommendations appreciated - GI Dr Wakefield consulted, appreciate recommendations 8. Coronary arterial disease s/p stent - CAD s/p stent 5 years ago - Patient with known history of coronary artery disease s/p stenting approximately 5 years. Prior records in 10/2023 show that cardiology services recommended the patient be discharged with aspirin and statin. However at discharge during that - hospitalization, patient was not discharged with Aspirin. Review of recent medications also show that patient has not been on aspirin. Plan: -Will defer starting aspirin at this time due to active GI bleeding. -Cardiology consulted, appreciate recommendations -Hb >8 to be maintained 9. History of Pulmonary Embolism, ruled out DVT - Known history of PE with current use of Eliquis for anticoagulation. - Will hold Eliquis at this time due to acute blood loss anemia in setting of GI bleed - Ordered UE US doppler, negative for DVT 10. Mild transaminitis, improving 11. Liver cirrhosis - History of liver cirrhosis. Mildly elevated AST is on admission. - Continue to monitor with daily CMP 12. Uncontrolled IDDM type II - Apr 2024 : A1c = 13.6 - history of INSULIN noncompliance, refusing INSULIN at times, not adherent with diet. Plan: - Continue INSULIN GLARGINE 20 units HS (home dose 40 HS) - Hold patient's home Diabetes Medications - Patient started on Insulin Sliding scale - ACHS accucheks - Follow up QAM CMP glucose level 13. Sacral Decubitus Ulcer - Patient noted to have an open wound at the gluteal fold above the coccyx. Appears to be a stage 2 ulcer. - Wound care referral. Health maintenance: DVT prophylaxis: SCDs GI prophylaxis: Protonix twice daily Diet: Cardiac diet Lines: Peripheral IV Code status: Full code Plan of care discussed with attending Dr Parks , Jay Christiansen M.D. PGY2
--- NOTE | 2024-07-22 16:25 | PD.IMPROG ---
Documentation for date of: 07/22/24 Subjective Subjective Interval history: Patient evaluated hemoglobin hematocrit 8.5 and 28.1 Exam Vital Signs Temp Pulse Resp BP Pulse Ox O2 Del Method O2 Flow Rate 96.9 F 68 18 173/88 H 99 Nasal Cannula 4 07/22/24 15:34 07/22/24 15:34 07/22/24 15:34 07/22/24 15:34 07/22/24 15:34 07/22/24 15:34 07/22/24 15:34 FiO2 40 07/22/24 12:00 Objective Labs 07/22/24 05:20 07/22/24 05:20 Labs: Laboratory Results - last 24 hr 07/22/24 05:20 WBC 7.7 RBC 3.25 L Hgb 8.5 L Hct 28.1 L MCV 87 MCH 26.2 MCHC 30.2 L RDW Std Deviation 49.1 H Plt Count 227 D Neut % (Auto) 65 Lymph % (Auto) 18 [place] % (Auto) 11 Eos % (Auto) 6 Baso % (Auto) 0 Neut # (Auto) 5.0 Lymph # (Auto) 1.4 [place] # (Auto) 0.8 Eos # (Auto) 0.4 Baso # (Auto) 0.0 Immature Gran # (Auto) 0.05 H Absolute Nucleated RBC 0.00 Immature Gran % 1 H Nucleated RBC % 0 Sodium 143 Potassium 4.3 Chloride 104 Carbon Dioxide 32.0 H Anion Gap 7 BUN 32 H Creatinine 1.1 Estim Creat Clear Calc 98.1 eGFR > 60 BUN/Creatinine Ratio 29 H Glucose 148 H Calculated Osmolality 294 Calcium 8.7 Corrected Calcium 9.4 Phosphorus 4.2 Magnesium 1.9 Total Bilirubin 0.2 L AST 42 H ALT 21 Alkaline Phosphatase 100 Total Protein 6.7 Albumin 3.1 L Globulin 3.6 H Albumin/Globulin Ratio 0.9 L Impressions Impression: # Posthemorrhagic anemia continue to monitor CBC ABG Interpretation ABG results: 07/14/24 07/15/24 07/15/24 16:37 00:44 03:54 ABG pH 7.29 L 7.31 L 7.32 L ABG pCO2 56 H 54 H 53 H ABG pO2 152 H 50 L* D 122 H D ABG HCO3 27 H 28 H 27 H ABG O2 Saturation 99 H 81 L 99 H ABG Base Excess 1 1 1 07/15/24 07/17/24 07/18/24 14:45 12:51 08:57 ABG pH 7.40 7.36 7.33 L ABG pCO2 45 58 H D 60 H ABG pO2 74 L D 109 H D 72 L D ABG HCO3 27 H 33 H 32 H ABG O2 Saturation 95 99 H 93 ABG Base Excess 2 6 H 5 H 07/19/24 08:35 ABG pH 7.36 ABG pCO2 57 H ABG pO2 268 H D ABG HCO3 32 H ABG O2 Saturation 99 H ABG Base Excess 6 H Assessment & Plan A&P Narrative # Anemia blood loss requiring blood transfusion Once patient's respiratory status stabilizes GoLytely prep and schedule colonoscopy Agree with the blood transfusion Other medical problems include # Acute hypoxic respiratory failure requiring BiPAP # CAROLYN # History congestive heart failure # CVA requiring bilateral endarterectomy IDDM # Pulmonary embolism on Eliquis Thank you very much for the opportunity to participate in the care of this patient Time Spent With Patient Time: Total time spent is greater than 50% in coordination of care (as documented) at patient's floor/unit and/or counseling patient:
[2024-07-22] MEDS: NIFEdipine XL 30 MG TABCR PO ×2 (16:32→21:46)
[2024-07-22] MEDS: COLLAGENASE OINT 30 GM TUBE TOP (20:55)
[2024-07-22] MEDS: ATORVASTATIN CALCIUM 20 MG TABLET 80 MG PO (20:55)
[2024-07-22] MEDS: hydrALAZINE HCL 25 MG TABLET 100 MG PO (21:46)
[2024-07-23] VITALS (18 sets, daily range): BP systolic 114–170; BP diastolic 58–83; PULSE 60–71; RESP 10–20; TEMP 35.8–36.1; O2SAT 91–99
[2024-07-23] MEDS: oxyCODONE/APAP 5/325 TABLET 1 TAB PO ×4 (02:27→23:17)
--- NOTE | 2024-07-23 03:14 | ESCONSULT_ITS ---
RE: JILL HIDALGO : 1970 DATE OF CONSULTATION: 07/22/2024 CONSULTING PHYSICIANS: Hospitalist. REASON FOR CONSULTATION: Evaluation of shortness of breath and congestive heart failure. HISTORY OF PRESENT ILLNESS: The patient is a 54-year-old male with a past medical history of hypertension, obesity, type 2 diabetes mellitus, metabolic syndrome, bilateral endarterectomy, pulmonary embolism, on Eliquis, hypertension, obstructive sleep apnea, cirrhosis, presents to the hospital with shortness of breath and multiple mechanisms. The patient did have an echocardiogram in the past. Ejection fraction appeared to be normal, possible HFpEF. BNP is elevated. Cardiology was consulted. . PAST MEDICAL HISTORY: Significant for a history of hypertension, diabetes mellitus, HFpEF, previous stroke, bilateral endarterectomy, pulmonary embolism on Eliquis and cirrhosis of the liver as well and morbid obesity. The patient has sleep apnea, on BiPAP. SOCIAL HISTORY: The patient is not a smoker, does not drink alcoholic beverages. FAMILY HISTORY: Noncontributory. SOCIAL HISTORY: _ history of 20 pack year of smoking. PHYSICAL EXAMINATION: GENERAL: Well-nourished, obese male, alert, awake, and not in any acute distress. VITAL SIGNS: Blood pressure 160/80, pulse 65, respirations 16, temperature normal. HEAD: Atraumatic. NECK: Supple. No JVD. CHEST: Symmetrical. LUNGS: Decreased breath sounds. HEART: S1, S2 regular. ABDOMEN: Obese and soft. EXTREMITIES: Mild edema. GENITOURINARY AND RECTAL: Not performed. NEUROLOGIC: Normal. DIAGNOSTIC DATA: Electrocardiogram showed sinus rhythm, nonspecific changes. LABORATORY DATA: Lab data unremarkable. The hemoglobin is 8.5 , anemic. Chemistry panel does show creatinine is normal, BUN 32. BNP was elevated. Cardiac enzymes normal. Cardiac echo recently in 04/2024 showed ejection fraction is well preserved around 55% to 60%, mild LVH, grade 1 diastolic dysfunction, biatrial enlargement. IMPRESSION/ASSESSMENT: 1. Shortness of breath secondary to multiple factors including HFpEF, congestive heart failure, obesity. 2. Hypertension. 3. Diabetes mellitus. 4. History of pulmonary embolism, on Eliquis. 5. Metabolic syndrome. 6. Sleep apnea. RECOMMENDATIONS: Recommended the patient to strongly follow weight reduction diet and weight reduction exercise regimen to improve shortness of breath. Diuretics as necessary depending on the volume status. Otherwise, no specific modality of therapy for HFpEF. DT: 00:27:48 TT: 03:13:00 Ref: [id number] - TID: [id number] MTDD
[2024-07-23] MEDS: MELATONIN 3 MG TABLET PO ×2 (04:16→20:21)
[2024-07-23] MEDS: NIFEdipine XL 30 MG TABCR PO ×3 (06:28→21:59)
[2024-07-23] MEDS: hydrALAZINE HCL 25 MG TABLET 100 MG PO ×3 (06:29→21:59)
[2024-07-23] MEDS: MORPHINE SULF INJ 10 MG/ML VIAL 2 MG IVP ×3 (06:35→20:21)
[2024-07-23] MEDS: PANTOPRAZOLE INJ 40 MG VIAL IVP ×2 (08:03→20:21)
[2024-07-23 08:04] LABS: Basophils % (Auto) 0 % (0-2.5); Eosinophils # (Auto) 0.3 Thou/mm3 (0.0-0.5); Eosinophils % (Auto) 4 % (0-10); Hematocrit 27.1 % (41.0-53.0); Immature Granulocytes % (Auto) 1 % (0-0); Immature Granulocytes Auto 0.06 Thou/mm3 (0.00-0.00); Lymphocytes # (Auto) 0.8 Thou/mm3 (1.0-4.8); Lymphocytes % (Auto) 8 % (10-50); Mean Corpuscular HGB Conc 29.5 g/dl (31.0-37.0); Mean Corpuscular Hemoglobin 25.9 pg (25.0-35.0); Mean Corpuscular Volume 88 fL (80-100); Monocytes # (Auto) 0.8 Thou/mm3 (0.0-0.8); Monocytes % (Auto) 9 % (0-12); Neutrophils # (Auto) 7.3 Thou/mm3 (1.8-7.7); Neutrophils % (Auto) 79 % (37-80); Nucleated Red Blood Cell % 0 /100 WBC (0); Platelet Count 227 Thou/mm3 (140-440); RDW Standard Deviation 48.6 fL (35.1-43.9); Red Blood Count 3.09 Miln/mm3 (4.50-5.90); White Blood Count 9.3 Thou/mm3 (3.8-10.6)
[2024-07-23] MEDS: BUMETANIDE 0.5 MG TABLET 2 MG PO ×2 (08:04→20:21)
[2024-07-23] MEDS: METOPROLOL SUCCINATE XL 25 MG TABCR 50 MG PO (08:04)
[2024-07-23] MEDS: LOSARTAN POTASSIUM 25 MG TABLET 100 MG PO (08:05)
[2024-07-23] MEDS: INSULIN LISPRO (AdmeLOG) 1 UNIT/0.01 ML UNIT SC ×4 (08:05→22:00)
[2024-07-23 08:25] LABS: Alanine Aminotransferase 15 U/L (10-49); Albumin, Serum 2.8 gm/dL (3.5-5.0); Albumin/Globulin Ratio 0.8 (1.2-2.2); Alkaline Phosphatase 93 U/L (46-116); Anion Gap 5 (7-16); Aspartate Amino Transferase 26 U/L (0-34); BUN/Creatinine Ratio 29 Ratio (12-20); Bilirubin,Total 0.2 mg/dL (0.3-1.2); Blood Urea Nitrogen 32 mg/dL (9-23); Calcium 7.9 mg/dL (8.3-10.6); Calcium (Corrected) 8.9 mg/dL (8.5-10.1); Carbon Dioxide 33.8 mMol/L (20.0-31.0); Chloride 104 mMol/L (98-107); Creatinine (Component) 1.1 mg/dL (0.6-1.3); Estimated Creatinine Clearance 98.1 mL/min (>60); Globulin 3.4 gm/dL (2.3-3.5); Glucose 193 mg/dL (74-106); Magnesium 1.8 mg/dL (1.6-2.6); Osmolality,Calculated 296 (275-295); Phosphorous 3.7 mg/dL (2.4-5.1); Potassium 3.9 mMol/L (3.4-5.1); Sodium 143 mMol/L (136-145); Total Protein 6.2 gm/dL (5.7-8.2); eGFR > 60 See Note
[2024-07-23] MEDS: carVEDILOL 3.125 MG TABLET 6.25 MG PO (11:10)
--- NOTE | 2024-07-23 14:59 | PC.SS ---
[employer] followed up with Jaquelin from [facility], pt is medically cleared and Jaquelin stated that they would have to resubmit a new auth due to his 7 day hold expiring. reference services head to follow up.
--- NOTE | 2024-07-23 15:48 | ESPR_ITS ---
<Statement entered by Kiley Parks MD - 07/28/24 16:21> I reviewed above note and agree with findings and plans. I have also personally examined the patient with medicine team and went over assessment and plan with medical team including international first officer and resident physician. Documentation for date of: 07/23/24 Subjective Subjective Interval history: Patient was seen and examined at bedside. No acute overnight events. Patient was hypotensive today therefore his metoprolol was switched to Coreg. Patient does not have any new complaints. Will continue current management and monitor patient. Pending authorization for discharge. Exam Vital Signs Temp Pulse Resp BP Pulse Ox O2 Del Method O2 Flow Rate 96.5 F L 66 10 L 127/67 93 L Nasal Cannula 1 07/23/24 12:00 07/23/24 13:45 07/23/24 12:00 07/23/24 13:45 07/23/24 12:00 07/23/24 08:00 07/23/24 08:00 FiO2 40 07/22/24 12:00 Narrative Exam Gen: Well-developed and well-nourished obese male. HEENT: NCAT, PERRLA, EOMI, MMM, anicteric conjunctivae. CVS: normal S1 and S2. RRR. No M/R/G. Resp: CTA B/L. No rhonchi, rales, crackles or wheezing. Abd: soft, obese, tender in lower abdomen, non-distended. BS+ in all 4 quadrants. MSK: Good ROM in BUE & BLE. No rash. 2+ edema BLE. Neuro: CN II-XII grossly intact. Strength 5/5 in BUE & BLE. Alert and oriented x3. Psych: appropriate mood and affect. Objective Labs 07/23/24 07:37 07/23/24 07:37 Labs: Laboratory Results - last 24 hr 07/23/24 07:37 WBC 9.3 RBC 3.09 L Hgb 8.0 L Hct 27.1 L MCV 88 MCH 25.9 MCHC 29.5 L RDW Std Deviation 48.6 H Plt Count 227 Neut % (Auto) 79 Lymph % (Auto) 8 L [place] % (Auto) 9 Eos % (Auto) 4 Baso % (Auto) 0 Neut # (Auto) 7.3 Lymph # (Auto) 0.8 L [place] # (Auto) 0.8 Eos # (Auto) 0.3 Baso # (Auto) 0.0 Immature Gran # (Auto) 0.06 H Absolute Nucleated RBC 0.00 Immature Gran % 1 H Nucleated RBC % 0 Sodium 143 Potassium 3.9 Chloride 104 Carbon Dioxide 33.8 H Anion Gap 5 L BUN 32 H Creatinine 1.1 Estim Creat Clear Calc 98.1 eGFR > 60 BUN/Creatinine Ratio 29 H Glucose 193 H Calculated Osmolality 296 H Calcium 7.9 L Corrected Calcium 8.9 Phosphorus 3.7 Magnesium 1.8 Total Bilirubin 0.2 L AST 26 ALT 15 Alkaline Phosphatase 93 Total Protein 6.2 Albumin 2.8 L Globulin 3.4 Albumin/Globulin Ratio 0.8 L ABG Interpretation ABG results: 07/14/24 07/15/24 07/15/24 16:37 00:44 03:54 ABG pH 7.29 L 7.31 L 7.32 L ABG pCO2 56 H 54 H 53 H ABG pO2 152 H 50 L* D 122 H D ABG HCO3 27 H 28 H 27 H ABG O2 Saturation 99 H 81 L 99 H ABG Base Excess 1 1 1 07/15/24 07/17/24 07/18/24 14:45 12:51 08:57 ABG pH 7.40 7.36 7.33 L ABG pCO2 45 58 H D 60 H ABG pO2 74 L D 109 H D 72 L D ABG HCO3 27 H 33 H 32 H ABG O2 Saturation 95 99 H 93 ABG Base Excess 2 6 H 5 H 07/19/24 08:35 ABG pH 7.36 ABG pCO2 57 H ABG pO2 268 H D ABG HCO3 32 H ABG O2 Saturation 99 H ABG Base Excess 6 H Quality Measures Quality Measures VTE prophylaxis Assessment & Plan Assessment Current Active Medications: Generic Name Dose Route Start Last Admin Trade Name Freq PRN Reason Stop Dose Admin Acetaminophen 650 mg 07/14/24 16:29 Acetaminophen 325 Mg Tablet PO 08/13/24 16:28 Q6H PRN PAIN SCALE 1-3 (mild Acetaminophen 650 mg 07/14/24 16:29 Acetaminophen 325 Mg Tablet PO 08/13/24 16:28 Q6H PRN Fever >100 Albuterol/Ipratropium 3 ml 07/18/24 11:40 07/20/24 22:30 Albuterol/Ipratropium (Duoneb) Rt Radha 3 Ml Nebu INH 08/13/24 18:59 3 ml Q4HRRT PRN Administration SHORTNESS OF BREATH Atorvastatin Calcium 80 mg 07/14/24 21:00 07/22/24 20:55 Atorvastatin Calcium 20 Mg Tablet PO 08/13/24 20:59 80 mg HS RINA Administration Bumetanide 2 mg 07/22/24 09:00 07/23/24 08:04 Bumetanide 0.5 Mg Tablet PO 08/21/24 08:59 2 mg BID RINA Administration Carvedilol 6.25 mg 07/23/24 10:50 07/23/24 11:10 Carvedilol 3.125 Mg Tablet PO 08/22/24 10:49 6.25 mg BIDWM RINA Administration Collagenase 0 gm 07/17/24 21:00 07/22/24 20:55 Collagenase Oint 30 Gm Tube TOP 08/16/24 20:59 1 applicatio HS RINA Administration Dextrose 25 ml 07/14/24 16:31 Dextrose 50%-Water Inj 50 Ml Syringe IV 08/13/24 16:30 Q15MIN PRN BG 50-70 responsive npo pt Dextrose 50 ml 07/14/24 16:31 Dextrose 50%-Water Inj 50 Ml Syringe IV 08/13/24 16:30 Q15MIN PRN BG <50 OR BG <70 & pt unresponsive Glucagon 1 mg 07/14/24 16:31 Glucagon Inj 1 Mg Vial IM Q15MIN PRN BG <70, and no IV access Hydralazine HCl 100 mg 07/22/24 22:00 07/23/24 13:44 Hydralazine Hcl 25 Mg Tablet PO 08/21/24 21:59 100 mg TID RINA Administration Insulin Glargine 20 unit 07/21/24 14:46 Insulin Glargine (Lantus) 5 Unit/0.05 Ml (Per 5 Units) SC 08/17/24 20:59 HS [facility] Insulin Human Lispro 0 unit 07/14/24 17:00 07/23/24 11:09 Insulin Lispro (Admelog) 1 Unit/0.01 Ml Unit SC 08/13/24 16:59 1 unit ACHS RINA Administration Protocol Labetalol HCl 10 mg 07/18/24 11:44 Labetalol Inj 5 Mg/Ml Vial 20 Ml IVP 08/17/24 11:43 Q4H PRN SBP >180, DBP >120 and HR > 80 Losartan Potassium 100 mg 07/17/24 09:00 07/23/24 08:05 Losartan Potassium 25 Mg Tablet PO 08/16/24 08:59 100 mg QDAY RINA Administration Melatonin 3 mg 07/23/24 03:25 07/23/24 04:16 Melatonin 3 Mg Tablet PO 08/22/24 03:24 3 mg HS RINA Administration Morphine Sulfate 2 mg 07/20/24 08:48 07/23/24 13:52 Morphine Sulf Inj 10 Mg/Ml Vial IVP 07/25/24 02:35 2 mg Q6H PRN Administration BREAKTHROUGH PAIN (SEVERE) Nifedipine 30 mg 07/22/24 16:00 07/23/24 13:45 Nifedipine Xl 30 Mg Tabcr PO 08/21/24 15:59 30 mg TID RINA Administration Ondansetron HCl 4 mg 07/14/24 16:29 Ondansetron Inj 2 Mg/Ml Inj 2 Ml IV 08/13/24 16:28 Q6H PRN NAUSEA OR VOMITING Protocol Oxycodone/Acetaminophen 1 tab 07/19/24 20:40 07/23/24 11:16 Oxycodone/Apap 5/325 Tablet PO 07/24/24 20:39 1 tab Q6H PRN Administration PAIN SCALE 4-10(Mod-Sev Pantoprazole Sodium 40 mg 07/15/24 09:00 07/23/24 08:03 Pantoprazole Inj 40 Mg Vial IVP 08/14/24 08:59 40 mg BID RINA Administration Sodium Chloride 3 ml 07/14/24 12:01 07/14/24 12:11 Sodium Chloride Rt Radha 0.9% 3 Ml Nebu INH 08/13/24 12:00 3 ml PRN PRN Administration SOLN Plan Mr. Mekhi Fisher is a 54-year-old gentleman with past medical history of HFpEF(EF 55-60% 04/24/2024), coronary artery disease s/p stent 5 years ago, IDDM, CVA, carotid artery stenosis s/p bilateral endarterectomy 2018, pulmonary embolism on ELIQUIS, hypertension, obstructive sleep apnea, cirrhosis, history of vertebral hemangioma s/p radiation therapy who presented to the ED on 07/14/2024 with a chief complaint of shortness of breath. Due to the patient being agitated at the time of initial evaluation, history was obtained through chart review. Apparently the patient presented to the ED via EMS from [facility] to to acute onset SOB with oxygen desaturation to 87% whilst on 3L of supplemental oxygen. #Acute hypercapneic Encephalopathy (Improving). #Acute hypoxic hypercapnic respiratory failure. #Obesity hypoventilation syndrome. - Patient with history of CAROLYN and OHS given morbid obesity BMI >45 - Longstanding smoking history, found to have elevated CO2 levels - Initial ABG showing : 7.29/pCO2 56/HCO3 24. - Started on BiPAP to allow for CO2 washout, however patient became agitated and was unable to comply with wearing BiPAP mask, despite receiving a total of Haldol 5 mg x 3 doses. - Decision was made to upgrade the patient to ICU for sedation with precedex to allow for BiPAP compliance. - PRN Ativan 1 Mg every 8 hours as needed for agitation. Plan: - Continue to titrate off of oxygen to RA. - Continue DuoNebs as needed. - Advised strict BiPAP at night. #CHF exacerbation. #HFpEF EF 55-60% 04/2024. - Patient with known history of Heart failure with reduced ejection fraction. - Per nursing facilty, patient has been non-compliant with diuresis leading to fluid overload and - 04/24/2024 ECHO : HFpEF LVEF 55 to 60%. - BNP = 539 (Patient states he is not taking his LASIX). - On presentation, physical exam notable for B/L 2+ lower extremity edema after diuresis, Bibasilar crackles. - CXR: enlargement of the cardiac contour with significant B/L vascular congestion and perihilar edema consistent with CHF. Plan: ? Continue BUMEX 2 mg PO BID. ? Continue DuoNebs q6h PRN. ? Continue BiPAP. ? metoprolol was changed to Coreg. ? Strict IN & Out's. - Cardiology consulted, appreciate recommendations. #Acute normocytic blood loss anemia 2/2. #Lower GI bleed. DDx: UGI bleed 2/2 Duodenal ulcer. Hg/HCT: 6.0/20.0%, on admission, he received 2 units of PRBC and his hemoglobin today is 8.7. Isolated elevated BUN consistent with upper GI bleed. 06/25/2024 EGD : small duodenal ulcer in the junction of duodenal bulb and descending duodenum gastritis. 07/18/24 Colonoscopy : polyp that was resected and sent for pathology reporting. Plan: - Continue IV Protonix 40 mg BID. - Hold NSAIDs, steroids, ASA. - GI consulted, recommendations appreciated. - GI Dr Wakefield consulted, appreciate recommendations. #Coronary arterial disease s/p stent. - CAD s/p stent 5 years ago - Patient with known history of coronary artery disease s/p stenting approximately 5 years. Prior records in 10/2023 show that cardiology services recommended the patient be discharged with aspirin and statin. However at discharge during that - hospitalization, patient was not discharged with Aspirin. Review of recent medications also show that patient has not been on aspirin. Plan: -Will defer starting aspirin at this time due to active GI bleeding. -Cardiology consulted, appreciate recommendations. -Hb >8 to be maintained. #History of Pulmonary Embolism, ruled out DVT. - Known history of PE with current use of Eliquis for anticoagulation. - Will hold Eliquis at this time due to acute blood loss anemia in setting of GI bleed. - Ordered UE US doppler, negative for DVT. #Mild transaminitis, improving. #Liver cirrhosis. - History of liver cirrhosis. Mildly elevated AST is on admission. Plan: - Continue to monitor with daily CMP. #Uncontrolled IDDM type II. - Apr 2024 : A1c = 13.6. - history of INSULIN noncompliance, refusing INSULIN at times, not adherent with diet. Plan: - Continue INSULIN GLARGINE 20 units HS (home dose 40 HS). - Hold patient's home Diabetes Medications. - Patient started on Insulin Sliding scale. - ACHS accucheks. - Follow up QAM CMP glucose level. #Sacral Decubitus Ulcer. - Patient noted to have an open wound at the gluteal fold above the coccyx. Appears to be a stage 2 ulcer. Plan: - Wound care referral. Health maintenance: DVT prophylaxis: SCDs. GI prophylaxis: Protonix twice daily. Diet: Cardiac diet. Lines: Peripheral IV. Code status: Full code. Plan of care discussed with attending Dr. Parks. Al Sandoval MD, PGY 2. Disclaimer: This note was dictated by speech recognition. Minor errors in ict quality assurance engineer may be present due to voice recognition software.
--- NOTE | 2024-07-23 16:37 | PD.IMPROG ---
Documentation for date of: 07/23/24 Subjective Subjective Interval history: Patient evaluated hemoglobin hematocrit 8.0 and 27.1 It is downward trending Patient will most likely need an outpatient capsule endoscopy Exam Vital Signs Temp Pulse Resp BP Pulse Ox O2 Del Method O2 Flow Rate 96.5 F L 66 17 127/67 98 Nasal Cannula 3 07/23/24 12:00 07/23/24 16:23 07/23/24 16:23 07/23/24 13:45 07/23/24 16:23 07/23/24 08:00 07/23/24 16:23 FiO2 40 07/22/24 12:00 Objective Labs 07/23/24 07:37 07/23/24 07:37 Labs: Laboratory Results - last 24 hr 07/23/24 07:37 WBC 9.3 RBC 3.09 L Hgb 8.0 L Hct 27.1 L MCV 88 MCH 25.9 MCHC 29.5 L RDW Std Deviation 48.6 H Plt Count 227 Neut % (Auto) 79 Lymph % (Auto) 8 L [place] % (Auto) 9 Eos % (Auto) 4 Baso % (Auto) 0 Neut # (Auto) 7.3 Lymph # (Auto) 0.8 L [place] # (Auto) 0.8 Eos # (Auto) 0.3 Baso # (Auto) 0.0 Immature Gran # (Auto) 0.06 H Absolute Nucleated RBC 0.00 Immature Gran % 1 H Nucleated RBC % 0 Sodium 143 Potassium 3.9 Chloride 104 Carbon Dioxide 33.8 H Anion Gap 5 L BUN 32 H Creatinine 1.1 Estim Creat Clear Calc 98.1 eGFR > 60 BUN/Creatinine Ratio 29 H Glucose 193 H Calculated Osmolality 296 H Calcium 7.9 L Corrected Calcium 8.9 Phosphorus 3.7 Magnesium 1.8 Total Bilirubin 0.2 L AST 26 ALT 15 Alkaline Phosphatase 93 Total Protein 6.2 Albumin 2.8 L Globulin 3.4 Albumin/Globulin Ratio 0.8 L Impressions Impression: # Posthemorrhagic anemia Outpatient capsule endoscopy to be referred to tertiary center by the PCP ABG Interpretation ABG results: 07/14/24 07/15/24 07/15/24 16:37 00:44 03:54 ABG pH 7.29 L 7.31 L 7.32 L ABG pCO2 56 H 54 H 53 H ABG pO2 152 H 50 L* D 122 H D ABG HCO3 27 H 28 H 27 H ABG O2 Saturation 99 H 81 L 99 H ABG Base Excess 1 1 1 07/15/24 07/17/24 07/18/24 14:45 12:51 08:57 ABG pH 7.40 7.36 7.33 L ABG pCO2 45 58 H D 60 H ABG pO2 74 L D 109 H D 72 L D ABG HCO3 27 H 33 H 32 H ABG O2 Saturation 95 99 H 93 ABG Base Excess 2 6 H 5 H 07/19/24 08:35 ABG pH 7.36 ABG pCO2 57 H ABG pO2 268 H D ABG HCO3 32 H ABG O2 Saturation 99 H ABG Base Excess 6 H Assessment & Plan A&P Narrative # Anemia blood loss requiring blood transfusion Once patient's respiratory status stabilizes GoLytely prep and schedule colonoscopy Agree with the blood transfusion Other medical problems include # Acute hypoxic respiratory failure requiring BiPAP # CAROLYN # History congestive heart failure # CVA requiring bilateral endarterectomy IDDM # Pulmonary embolism on Eliquis Thank you very much for the opportunity to participate in the care of this patient Time Spent With Patient Time: Total time spent is greater than 50% in coordination of care (as documented) at patient's floor/unit and/or counseling patient:
[2024-07-23] MEDS: ALBUTEROL/IPRATROPIUM (Duoneb) RT SOL 3 ML NEBU INH (19:42)
[2024-07-23] MEDS: ATORVASTATIN CALCIUM 20 MG TABLET 80 MG PO (20:21)
[2024-07-23] MEDS: COLLAGENASE OINT 30 GM TUBE TOP (20:22)
[2024-07-23] MEDS: SENNA TABLET 1 TAB PO (22:00)
[2024-07-24] VITALS (18 sets, daily range): BP systolic 116–149; BP diastolic 65–80; PULSE 61–79; RESP 13–18; TEMP 36.1–36.7; O2SAT 91–99; BMI 11.0
[2024-07-24] MEDS: MORPHINE SULF INJ 10 MG/ML VIAL 2 MG IVP ×3 (02:30→19:34)
[2024-07-24] MEDS: hydrALAZINE HCL 25 MG TABLET 100 MG PO ×3 (05:36→21:43)
[2024-07-24] MEDS: NIFEdipine XL 30 MG TABCR PO ×3 (05:40→21:43)
[2024-07-24] MEDS: oxyCODONE/APAP 5/325 TABLET 1 TAB PO ×2 (05:46→17:33)
[2024-07-24 05:49] LABS: Basophils % (Auto) 0 % (0-2.5); Eosinophils # (Auto) 0.3 Thou/mm3 (0.0-0.5); Eosinophils % (Auto) 5 % (0-10); Hematocrit 27.3 % (41.0-53.0); Immature Granulocytes % (Auto) 1 % (0-0); Immature Granulocytes Auto 0.04 Thou/mm3 (0.00-0.00); Lymphocytes # (Auto) 1.2 Thou/mm3 (1.0-4.8); Lymphocytes % (Auto) 16 % (10-50); Mean Corpuscular HGB Conc 29.3 g/dl (31.0-37.0); Mean Corpuscular Hemoglobin 25.5 pg (25.0-35.0); Mean Corpuscular Volume 87 fL (80-100); Monocytes # (Auto) 0.7 Thou/mm3 (0.0-0.8); Monocytes % (Auto) 10 % (0-12); Neutrophils # (Auto) 4.9 Thou/mm3 (1.8-7.7); Neutrophils % (Auto) 68 % (37-80); Nucleated Red Blood Cell % 0 /100 WBC (0); Platelet Count 228 Thou/mm3 (140-440); RDW Standard Deviation 49.1 fL (35.1-43.9); Red Blood Count 3.14 Miln/mm3 (4.50-5.90); White Blood Count 7.2 Thou/mm3 (3.8-10.6)
[2024-07-24 06:32] LABS: Alanine Aminotransferase 14 U/L (10-49); Albumin, Serum 2.9 gm/dL (3.5-5.0); Albumin/Globulin Ratio 0.9 (1.2-2.2); Alkaline Phosphatase 95 U/L (46-116); Anion Gap 6 (7-16); Aspartate Amino Transferase 24 U/L (0-34); BUN/Creatinine Ratio 30 Ratio (12-20); Bilirubin,Total < 0.2 mg/dL (0.3-1.2); Blood Urea Nitrogen 36 mg/dL (9-23); Calcium 8.1 mg/dL (8.3-10.6); Chloride 106 mMol/L (98-107); Creatinine (Component) 1.2 mg/dL (0.6-1.3); Estimated Creatinine Clearance 89.7 mL/min (>60); Globulin 3.4 gm/dL (2.3-3.5); Glucose 195 mg/dL (74-106); Magnesium 1.8 mg/dL (1.6-2.6); Osmolality,Calculated 298 (275-295); Phosphorous 3.7 mg/dL (2.4-5.1); Potassium 3.7 mMol/L (3.4-5.1); Sodium 143 mMol/L (136-145); Total Protein 6.3 gm/dL (5.7-8.2); eGFR > 60 See Note
[2024-07-24] MEDS: PANTOPRAZOLE INJ 40 MG VIAL IVP ×2 (08:08→21:41)
[2024-07-24] MEDS: INSULIN LISPRO (AdmeLOG) 1 UNIT/0.01 ML UNIT SC ×4 (08:08→21:45)
[2024-07-24] MEDS: LOSARTAN POTASSIUM 25 MG TABLET 100 MG PO (08:09)
[2024-07-24] MEDS: BUMETANIDE 0.5 MG TABLET 2 MG PO ×2 (08:10→21:42)
[2024-07-24] MEDS: carVEDILOL 3.125 MG TABLET 6.25 MG PO ×2 (08:11→17:33)
--- NOTE | 2024-07-24 10:32 | ESDS_ITS ---
<Statement entered by Kiley Parks MD - 08/01/24 11:48> I reviewed above note and agree with findings and plans. I have also personally examined the patient with medicine team and went over assessment and plan with medical team including planning intern and resident physician. Planned Discharge Date 07/24/24 DS: Providers Provider Date of admission: 07/14/24 16:29 Primary care physician: Sue Cevallos NP Admitting Provider: Teofilo Sanchez MD Attending Provider on Admission: Kiley Parks MD Consults: 07/14/24 14:12 Consult to Gastroenterology Stat Comment: Consulting Provider: Jono Wakefield 07/15/24 01:14 Consult to Patient Care Coordinator Stat Comment: Severe Agitation with AHHRF Consulting Provider: Lenora Sheffield 07/15/24 14:35 Referral Wound Care Stat Comment: sacral ulcer 07/17/24 16:53 Referral Nutritional Services Routine Comment: Instructions: Wounds 07/19/24 10:59 Referral Physical Therapy Urgent Comment: Physician Instructions: 07/21/24 15:01 Consult to Cardiology Routine Comment: Consulting Provider: Bernie Jiménez Attending Provider on DC: Kiley Parks MD Discharging Provider: Jay Christiansen MD DS: Diagnosis Problem List Completed Was Problem List Reviewed/Reconciled?: Yes Hospital Course Hospital Course Hospital course: Hospital Course: Mr. Mekhi Fisher is a 54-year-old gentleman with past medical history of HFpEF(EF 55-60% 04/24/2024), coronary artery disease s/p stent 5 years ago, IDDM, CVA, carotid artery stenosis s/p bilateral endarterectomy 2018, pulmonary embolism on ELIQUIS, hypertension, obstructive sleep apnea, cirrhosis, history of vertebral hemangioma s/p radiation therapy who presented to the ED on 07/14/2024 with a chief complaint of shortness of breath. Patient is from [facility] to to acute onset SOB with oxygen desaturation to 87% whilst on 3L of supplemental oxygen. Patient was treated adequately but during his hospitalization was noted to have anemia, FOBT in hospital was positive for occult blood. Dr Wakefield performed endoscopy, Problems on this admission: - Acute hypercapneic Encephalopathy (Improving) - Acute hypoxic hypercapnic respiratory failure - Obesity hypoventilation syndrome - CHF exacerbation, HFpEF 60% - Acute blood loss anemia 2/2 Lower GI bleed - Coronary arterial disease s/p stent - History of Pulmonary Embolism, ruled out DVT - Mild transaminitis, improving - Liver cirrhosis - Uncontrolled IDDM type II - Sacral Decubitus Ulcer Procedures: None Discharge instructions: - Follow up with PCP within 1 week - Discontinued Amlodipine. Started on Nifedipine 30mg three times a day for BP control - Increased Hydralazine from 50mg to 100mg three times a day for BP control - Increased Bumex to 2mg twice a day - Continue all other home medications - Per GI recommendations, patient will need outpatient referral for capsule endoscopy - Return to ED if symptoms worsen We are grateful to be able to participate in Mr Gramajo's care. We wish him the best. - Jay Christiansen MD Status at Discharge Cognitive/behavioral status at discharge: stable and returned to baseline Time Spent with Patient Time attestation: Total time spent providing and/or coordinating discharge services: more than 50% Exam Vital Signs Temp Pulse Resp BP Pulse Ox O2 Del Method O2 Flow Rate 96.9 F 68 16 134/66 H 96 Nasal Cannula 2 07/24/24 08:00 07/24/24 08:11 07/24/24 08:00 07/24/24 08:11 07/24/24 08:00 07/24/24 08:00 07/24/24 08:00 FiO2 40 07/22/24 12:00 Narrative Exam GENERAL: AAOX3, morbidly obese, calm in bed NEURO: FIELD SUPPORT SPECIALIST grossly intact, moves extremities x4 HEENT: Moist mucosa. Eyes open, symmetrical, & clear CARDIO: No chest pain on palpation. Heart RRR, no obvious murmurs PULM: No noted coughing/dyspnea.On HFNC at 70% Mild crackles on auscultation GI: Abdomen soft, nondistended, no pain on palpation. BSx4 URO/HARPOON ENGAGEMENT PLANNING OPERATOR:: No further abnormalities noted. SKIN/MSK/EXT: Bilateral pitting edema, reolving Discharge Plan Plan Patient Disposition: Xfer Skilled Nsg Fac (SNF) Prescriptions/Referrals Prescriptions/Med Rec: New Zepbound 2.5 mg/0.5 mL pen injector 2.5 mg subcut QWEEK Qty: 2 2RF Rx Instructions: Please double the dose every 2 weeks as tolerated until maximum dose of 10mg/Week. carvedilol 3.125 mg Tablet 6.25 mg PO BIDWM Qty: 60 0RF bumetanide 2 mg tablet 2 mg PO BID 30 Days Qty: 60 0RF nifedipine 30 mg tablet extended release 30 mg PO BID 30 Days Qty: 60 0RF hydralazine 100 mg tablet 100 mg PO TID 30 Days Qty: 90 0RF Continued hydrocodone-acetaminophen 10-325 mg tablet 1 tab PO Q4H PRN (Reason: Pain, Moderate) pregabalin 150 mg capsule 150 mg PO TID sennosides [senna] 8.6 mg tablet 8.6 mg PO BID PRN (Reason: constipation) Qty: 30 0RF morphine 15 mg tablet extended release 15 mg PO QDAY PRN (Reason: Pain, Severe) metoclopramide HCl 5 mg tablet 5 mg PO Q6H 30 Days Qty: 120 3RF losartan 50 mg tablet 50 mg PO QDAY Qty: 30 0RF atorvastatin 80 mg Tablet 80 mg PO QPM ascorbic acid (vitamin C) [Vitamin C] 500 mg Tablet 500 mg PO BID [place] 0.8 mg Tablet 1 tab PO QDAY budesonide-formoterol 160-4.5 mcg/actuation Hfa Aerosol Inhaler 2 puff INHALATION BID apixaban 5 mg Tablet 5 mg PO BID insulin detemir U-100 100 unit/mL (3 mL) Insulin Pen 30 unit SUBCUT BID Qty: 15 0RF furosemide [Lasix] 40 mg Tablet 40 mg PO QDAY loperamide 2 mg Tablet 2 mg PO Q6H PRN (Reason: Diarrhea) insulin lispro [Humalog KwikPen Insulin] 100 unit/mL insulin pen See Protocol SUBCUT AC Protocol: Insulin Corrective High-Dose Regimen Condition: Fingerstick Blood Glucose Dose/Route: Insulin Units Condition: 141-180 mg/dl Dose/Route: 6 units/SQ Condition: 181-220 mg/dl Dose/Route: 8 units/SQ Condition: 221-260 mg/dl Dose/Route: 10 units/SQ Condition: 261-300 mg/dl Dose/Route: 12 units/SQ Condition: 301-350 mg/dl Dose/Route: 14 units/SQ Condition: 351-400 mg/dl Dose/Route: 16 units/SQ Condition: greater than 400 mg/dl Dose/Route: 18 units/SQ Discontinued metoprolol succinate 100 mg tablet extended release 24 hr 100 mg PO DAILY bumetanide 1 mg tablet 1 mg PO BID 30 Days Qty: 7 3RF amlodipine 10 mg tablet 10 mg PO QDAY Qty: 30 0RF Referrals: Sue Cevallos NP [Primary Care Provider] - Patient/Caregiver Discharge Instructions Other Discharge Activity Instructions:: - Follow up with PCP within 1 week - Discontinued Amlodipine. Started on Nifedipine 30mg three times a day for BP control - Increased Hydralazine from 50mg to 100mg three times a day for BP control - Increased Bumex to 2mg twice a day - Continue all other home medications - Per GI recommendations, patient will need outpatient referral for capsule endoscopy - Return to ED if symptoms worsen Education Materials: Anemia, Chronic Pain Therapies Mind Body Print Language: Ukrainian Stand Alone Forms: [facility] Award Info., Patient Portal Info Letter Discharge Order Discharge Orders: Discharge (Routine); Ordered 07/24/24 Ordered By: Al Sandoval Quality Discharge Quality Measures VTE prophylaxis
--- NOTE | 2024-07-24 10:46 | PC.SS ---
Addendum entered by Guadalupe Sarkar 07/24/24 15:39: SS spoke to Latoya @ [facility]. They have agreed to accept patient back. They are working on auth and an RIRI. D/c set for tomorrow Original Note: SS spoke to Jaquelin @ [facility] and they state they no longer have a male bed available. They cannot accept patient back. SS resubmitted inquiry through [facility] for all other local facilities. Patient will need new auth as well.
--- NOTE | 2024-07-24 12:15 | PC.NURSE ---
Pt. post foly void 75 cc , bladder scan performed per MD requested and the 74 cc showed in bladder scan
--- NOTE | 2024-07-24 14:16 | PC.NURSE ---
spoke with noe KOLB waiting for the pending authorization for pt. for transfer to facility
--- NOTE | 2024-07-24 20:05 | ESPR_ITS ---
Documentation for date of: 07/24/24 Subjective Subjective Interval history: Hemoglobin hematocrit 8.0 and 27.3 Exam Vital Signs Temp Pulse Resp BP Pulse Ox O2 Del Method O2 Flow Rate 97.2 F 74 18 116/65 91 L Room Air 2 07/24/24 15:59 07/24/24 17:56 07/24/24 15:59 07/24/24 17:33 07/24/24 15:59 07/24/24 15:59 07/24/24 09:20 FiO2 40 07/22/24 12:00 Objective Labs 07/24/24 04:40 07/24/24 04:40 Labs: Laboratory Results - last 24 hr 07/24/24 04:40 WBC 7.2 RBC 3.14 L Hgb 8.0 L Hct 27.3 L MCV 87 MCH 25.5 MCHC 29.3 L RDW Std Deviation 49.1 H Plt Count 228 Neut % (Auto) 68 Lymph % (Auto) 16 [place] % (Auto) 10 Eos % (Auto) 5 Baso % (Auto) 0 Neut # (Auto) 4.9 Lymph # (Auto) 1.2 [place] # (Auto) 0.7 Eos # (Auto) 0.3 Baso # (Auto) 0.0 Immature Gran # (Auto) 0.04 H Absolute Nucleated RBC 0.00 Immature Gran % 1 H Nucleated RBC % 0 Sodium 143 Potassium 3.7 Chloride 106 Carbon Dioxide 31.0 Anion Gap 6 L BUN 36 H Creatinine 1.2 Estim Creat Clear Calc 89.7 eGFR > 60 BUN/Creatinine Ratio 30 H Glucose 195 H Calculated Osmolality 298 H Calcium 8.1 L Corrected Calcium 9.0 Phosphorus 3.7 Magnesium 1.8 Total Bilirubin < 0.2 L AST 24 ALT 14 Alkaline Phosphatase 95 Total Protein 6.3 Albumin 2.9 L Globulin 3.4 Albumin/Globulin Ratio 0.9 L Impressions Impression: # Acute posthemorrhagic anemia continue to monitor CBC ABG Interpretation ABG results: 07/14/24 07/15/24 07/15/24 16:37 00:44 03:54 ABG pH 7.29 L 7.31 L 7.32 L ABG pCO2 56 H 54 H 53 H ABG pO2 152 H 50 L* D 122 H D ABG HCO3 27 H 28 H 27 H ABG O2 Saturation 99 H 81 L 99 H ABG Base Excess 1 1 1 07/15/24 07/17/24 07/18/24 14:45 12:51 08:57 ABG pH 7.40 7.36 7.33 L ABG pCO2 45 58 H D 60 H ABG pO2 74 L D 109 H D 72 L D ABG HCO3 27 H 33 H 32 H ABG O2 Saturation 95 99 H 93 ABG Base Excess 2 6 H 5 H 07/19/24 08:35 ABG pH 7.36 ABG pCO2 57 H ABG pO2 268 H D ABG HCO3 32 H ABG O2 Saturation 99 H ABG Base Excess 6 H Assessment & Plan A&P Narrative # Anemia blood loss requiring blood transfusion Once patient's respiratory status stabilizes GoLytely prep and schedule colonoscopy Agree with the blood transfusion Other medical problems include # Acute hypoxic respiratory failure requiring BiPAP # CAROLYN # History congestive heart failure # CVA requiring bilateral endarterectomy IDDM # Pulmonary embolism on Eliquis Thank you very much for the opportunity to participate in the care of this patient Time Spent With Patient Time: Total time spent is greater than 50% in coordination of care (as documented) at patient's floor/unit and/or counseling patient:
[2024-07-24] MEDS: ALBUTEROL/IPRATROPIUM (Duoneb) RT SOL 3 ML NEBU INH (20:07)
[2024-07-24] MEDS: MELATONIN 3 MG TABLET PO (21:42)
[2024-07-24] MEDS: ATORVASTATIN CALCIUM 20 MG TABLET 80 MG PO (21:42)
[2024-07-24] MEDS: COLLAGENASE OINT 30 GM TUBE TOP (21:44)
[2024-07-25] VITALS (14 sets, daily range): BP systolic 112–165; BP diastolic 58–86; PULSE 70–95; RESP 16–20; TEMP 36.1–37.1; O2SAT 93–97; BMI 46.7
[2024-07-25] MEDS: oxyCODONE/APAP 5/325 TABLET 1 TAB PO (00:15)
--- NOTE | 2024-07-25 02:50 | PC.NURSE ---
Assisted patient on bed valdivia
[2024-07-25] MEDS: traMADol HCL 50 MG TABLET PO (04:00)
[2024-07-25 06:15] LABS: Basophils % (Auto) 0 % (0-2.5); Eosinophils # (Auto) 0.2 Thou/mm3 (0.0-0.5); Eosinophils % (Auto) 3 % (0-10); Hematocrit 27.7 % (41.0-53.0); Immature Granulocytes % (Auto) 1 % (0-0); Immature Granulocytes Auto 0.04 Thou/mm3 (0.00-0.00); Lymphocytes % (Auto) 14 % (10-50); Mean Corpuscular HGB Conc 29.6 g/dl (31.0-37.0); Mean Corpuscular Hemoglobin 25.5 pg (25.0-35.0); Mean Corpuscular Volume 86 fL (80-100); Monocytes # (Auto) 0.8 Thou/mm3 (0.0-0.8); Monocytes % (Auto) 11 % (0-12); Neutrophils % (Auto) 71 % (37-80); Nucleated Red Blood Cell % 0 /100 WBC (0); Platelet Count 231 Thou/mm3 (140-440); RDW Standard Deviation 48.9 fL (35.1-43.9); Red Blood Count 3.22 Miln/mm3 (4.50-5.90); White Blood Count 7.1 Thou/mm3 (3.8-10.6)
[2024-07-25 06:17] LABS: Hemoglobin 8.2 g/dL (13.5-16.0)
[2024-07-25 06:41] LABS: Alanine Aminotransferase 12 U/L (10-49); Albumin/Globulin Ratio 0.9 (1.2-2.2); Alkaline Phosphatase 95 U/L (46-116); Anion Gap 6 (7-16); Aspartate Amino Transferase 26 U/L (0-34); BUN/Creatinine Ratio 29 Ratio (12-20); Bilirubin,Total < 0.2 mg/dL (0.3-1.2); Blood Urea Nitrogen 32 mg/dL (9-23); Calcium 8.4 mg/dL (8.3-10.6); Calcium (Corrected) 9.2 mg/dL (8.5-10.1); Carbon Dioxide 30.3 mMol/L (20.0-31.0); Chloride 108 mMol/L (98-107); Creatinine (Component) 1.1 mg/dL (0.6-1.3); Estimated Creatinine Clearance 97.9 mL/min (>60); Globulin 3.4 gm/dL (2.3-3.5); Glucose 184 mg/dL (74-106); Magnesium 1.6 mg/dL (1.6-2.6); Osmolality,Calculated 298 (275-295); Phosphorous 3.7 mg/dL (2.4-5.1); Potassium 3.8 mMol/L (3.4-5.1); Sodium 144 mMol/L (136-145); Total Protein 6.4 gm/dL (5.7-8.2); eGFR > 60 See Note
[2024-07-25] MEDS: carVEDILOL 3.125 MG TABLET 6.25 MG PO ×2 (08:14→19:14)
[2024-07-25] MEDS: LOSARTAN POTASSIUM 25 MG TABLET 100 MG PO (08:15)
[2024-07-25] MEDS: BUMETANIDE 0.5 MG TABLET 2 MG PO ×2 (08:15→20:18)
[2024-07-25] MEDS: PANTOPRAZOLE INJ 40 MG VIAL IVP (08:15)
[2024-07-25] MEDS: INSULIN LISPRO (AdmeLOG) 1 UNIT/0.01 ML UNIT SC ×3 (08:16→20:19)
--- NOTE | 2024-07-25 10:58 | PC.NURSE ---
0930 PATIENT ASKING FOR PAIN MEDICATION. ONLY TYLENOL ORDERED. REFUSED STATED THE DOCTOR WAS JUST IN AND INFORMED HIM OF HIS PAIN AND HE SAID HE WOULD ORDER SOMETHING. INFORMED WILL LOOK OUT FOR THE ORDER [id number] CAR INFORMED PATIENT C/O PAIN AND ASKING FOR PAIN MEDICATION. STATED WILL SEE PATIENT SOON. NO ORDER AT THIS TIME
[2024-07-25] MEDS: POTASSIUM CHLORIDE 20 mEq TABCR PO (11:30)
[2024-07-25] MEDS: Magnesium Sulfate 4 GM Ivpb 4 GM/50 ML BAG IV (11:30)
--- NOTE | 2024-07-25 12:31 | PC.NURSE ---
PATIENT CONTINUES TO C/O BACK PAIN 03/30 AND REQUESTING PAIN MED. ASKING WHEN THE DOCTOR WILL BE COMING. INFORMED I DID NOT KNOW WOULD CALL DR GORDON AGAIN. DR CAR CALLED NO RESPONSE. DR MOSCOSO CALLED NO RESPONSE. DR WHITTINGTON CALLED, ANSWERED, INFORMED PATIENT HAS BEEN IN PAIN AND ASKING FOR PAIN MED SINCE 929 AND DOCTOR CALLED AT 1030 AND STATED WOULD COME AND SEE PATIENT FIRST. STATED WOULD ORDER SOMETHING FOR PAIN JULISA.
[2024-07-25] MEDS: HYDROcodone/APAP 10/325 TAB PO (12:57)
--- NOTE | 2024-07-25 15:16 | PC.SS ---
Addendum entered by Guadalupe Sarkar 07/25/24 15:59: Follow up note: Patient has auth and will d/c via gurney transport through [employer]. Original Note: Follow up note: Patient has had d/c orders. [facility] has agreed to take patient back. They are actively working on auth. SS received call from [employer] and spoke to [employer]. Provided her with d/c order indicating d/c to SNF for PT services. Pending approval from [employer] for authorization
[2024-07-25] MEDS: NIFEdipine XL 30 MG TABCR PO (15:19)
[2024-07-25] MEDS: hydrALAZINE HCL 25 MG TABLET 100 MG PO (15:19)
--- NOTE | 2024-07-25 15:23 | PC.NURSE ---
PATIENT BECOMING AGGITATED. STATES PAIN PILL DID NOT HELP MUCH AND HIS PAIN IS REALLY BAD AT THIS TIME. STATES THE PASAIN IS SO BAD HE IS HAVING TROUBLE BREATHING. WANTS TO TALK TO SOME ONE. DR CAR CALLED AND INFORMED PATIENT IS STILL IN PAIN AND IS UPSET. NEEDS PAIN MEDICATION. PPAIN PILL EARLIER DID NOT HELP. STATED WILL LOOK IN TO IT
[2024-07-25] MEDS: MORPHINE SULF INJ 10 MG/ML VIAL IVP ×2 (15:46→17:25)
--- NOTE | 2024-07-25 15:50 | ESDS_ITS ---
<Statement entered by Kiley Parks MD - 08/01/24 17:34> I reviewed above note and agree with findings and plans. I have also personally examined the patient with medicine team and went over assessment and plan with medical team including consumer insights intern and resident physician. Planned Discharge Date 07/25/24 DS: Providers Provider Date of admission: 07/14/24 16:29 Primary care physician: Sue Cevallos NP Admitting Provider: Teofilo Sanchez MD Attending Provider on Admission: Kiley Parks MD Consults: 07/14/24 14:12 Consult to Gastroenterology Stat Comment: Consulting Provider: Jono Wakefield 07/15/24 01:14 Consult to Safety Risk Lead Stat Comment: Severe Agitation with AHHRF Consulting Provider: Lenora Sheffield 07/15/24 14:35 Referral Wound Care Stat Comment: sacral ulcer 07/17/24 16:53 Referral Nutritional Services Routine Comment: Instructions: Wounds 07/19/24 10:59 Referral Physical Therapy Urgent Comment: Physician Instructions: 07/21/24 15:01 Consult to Cardiology Routine Comment: Consulting Provider: Bernie Jiménez Attending Provider on DC: Kiley Parks MD Discharging Provider: Kiley Parks MD DS: Diagnosis Problem List Completed Was Problem List Reviewed/Reconciled?: Yes Hospital Course Hospital Course Hospital course: Mr. Mekhi Fisher is a 54-year-old gentleman with past medical history of HFpEF(EF 55-60% 04/24/2024), coronary artery disease s/p stent 5 years ago, IDDM, CVA, carotid artery stenosis s/p bilateral endarterectomy 2018, pulmonary embolism on ELIQUIS, hypertension, obstructive sleep apnea, cirrhosis, history of vertebral hemangioma s/p radiation therapy who presented to the ED on 07/14/2024 with a chief complaint of shortness of breath. Patient is from [facility] to to acute onset SOB with oxygen desaturation to 87% whilst on 3L of supplemental oxygen. Patient was treated adequately but during his hospitalization was noted to have anemia, FOBT in hospital was positive for occult blood. Dr Wakefield performed colonscopy which showed diverticulosis and 2 polyps that were seen in the cecum (7-9 mm) and rectum (1cm) that were removed. Pathology results showed both being tubular adenomas negative for dysplasia. He was also seen by snuff grinder, Dr. Jiménez who recommended patient to continue with current therapy encourage weight loss and current medical management. He was discharged medically yesterday, however due to authorization for insurance for SNF he was kept for 1 more day. Problems on this admission: - Acute hypercapneic Encephalopathy (Improving) - Acute hypoxic hypercapnic respiratory failure - Obesity hypoventilation syndrome - CHF exacerbation, HFpEF 60% - Acute blood loss anemia 2/2 Lower GI bleed - Coronary arterial disease s/p stent - History of Pulmonary Embolism, ruled out DVT - Mild transaminitis, improving - Liver cirrhosis - Uncontrolled IDDM type II - Sacral Decubitus Ulcer Procedures: None Discharge instructions: - Follow up with PCP within 1 week - Discontinued Amlodipine. Started on Nifedipine 30mg three times a day for BP control - Increased Hydralazine from 50mg to 100mg three times a day for BP control - Increased Bumex to 2mg twice a day - Continue all other home medications - Per GI recommendations, patient will need outpatient referral for capsule endoscopy - Return to ED if symptoms worsen Patient seen and care discussed with my senior resident, Dr. Sandoval, and my attending physician, Dr. Kasey Alan, PGY-1 Time Spent with Patient Time attestation: Total time spent providing and/or coordinating discharge services: Time spent: Greater than 30 minutes Exam Vital Signs Temp Pulse Resp BP Pulse Ox O2 Del Method O2 Flow Rate 97.8 F 95 16 165/86 H 93 L Room Air 2 07/25/24 12:00 07/25/24 15:19 07/25/24 12:00 07/25/24 15:19 07/25/24 12:00 07/25/24 12:00 07/25/24 12:00 FiO2 40 07/22/24 12:00 Narrative Exam GENERAL: AAOX3, morbidly obese, calm in bed NEURO: CHAIRMAN EMERITUS grossly intact, moves extremities x4 HEENT: Moist mucosa. Eyes open, symmetrical, & clear CARDIO: No chest pain on palpation. Heart RRR, no obvious murmurs PULM: No noted coughing/dyspnea.On HFNC at 70% Mild crackles on auscultation GI: Abdomen soft, nondistended, no pain on palpation. BSx4 URO/MANAGER INFRASTRUCTURE:: No further abnormalities noted. SKIN/MSK/EXT: Bilateral pitting edema, reolving Discharge Plan Plan Patient Disposition: Xfer Skilled Nsg Fac (SNF) Disposition Comment: [facility] Prescriptions/Referrals Prescriptions/Med Rec: New Zepbound 2.5 mg/0.5 mL pen injector 2.5 mg subcut QWEEK Qty: 2 2RF Rx Instructions: Please double the dose every 2 weeks as tolerated until maximum dose of 10mg/Week. carvedilol 3.125 mg Tablet 6.25 mg PO BIDWM Qty: 60 0RF bumetanide 2 mg tablet 2 mg PO BID 30 Days Qty: 60 0RF nifedipine 30 mg tablet extended release 30 mg PO BID 30 Days Qty: 60 0RF hydralazine 100 mg tablet 100 mg PO TID 30 Days Qty: 90 0RF Continued hydrocodone-acetaminophen 10-325 mg tablet 1 tab PO Q4H PRN (Reason: Pain, Moderate) pregabalin 150 mg capsule 150 mg PO TID sennosides [senna] 8.6 mg tablet 8.6 mg PO BID PRN (Reason: constipation) Qty: 30 0RF morphine 15 mg tablet extended release 15 mg PO QDAY PRN (Reason: Pain, Severe) metoclopramide HCl 5 mg tablet 5 mg PO Q6H 30 Days Qty: 120 3RF losartan 50 mg tablet 50 mg PO QDAY Qty: 30 0RF atorvastatin 80 mg Tablet 80 mg PO QPM ascorbic acid (vitamin C) [Vitamin C] 500 mg Tablet 500 mg PO BID [place] 0.8 mg Tablet 1 tab PO QDAY budesonide-formoterol 160-4.5 mcg/actuation Hfa Aerosol Inhaler 2 puff INHALATION BID apixaban 5 mg Tablet 5 mg PO BID insulin detemir U-100 100 unit/mL (3 mL) Insulin Pen 30 unit SUBCUT BID Qty: 15 0RF furosemide [Lasix] 40 mg Tablet 40 mg PO QDAY loperamide 2 mg Tablet 2 mg PO Q6H PRN (Reason: Diarrhea) insulin lispro [Humalog KwikPen Insulin] 100 unit/mL insulin pen See Protocol SUBCUT AC Protocol: Insulin Corrective High-Dose Regimen Condition: Fingerstick Blood Glucose Dose/Route: Insulin Units Condition: 141-180 mg/dl Dose/Route: 6 units/SQ Condition: 181-220 mg/dl Dose/Route: 8 units/SQ Condition: 221-260 mg/dl Dose/Route: 10 units/SQ Condition: 261-300 mg/dl Dose/Route: 12 units/SQ Condition: 301-350 mg/dl Dose/Route: 14 units/SQ Condition: 351-400 mg/dl Dose/Route: 16 units/SQ Condition: greater than 400 mg/dl Dose/Route: 18 units/SQ Discontinued metoprolol succinate 100 mg tablet extended release 24 hr 100 mg PO DAILY bumetanide 1 mg tablet 1 mg PO BID 30 Days Qty: 7 3RF amlodipine 10 mg tablet 10 mg PO QDAY Qty: 30 0RF Referrals: Sue Cevallos RECORD TABULATING CLERK [Primary Care Provider] - Patient/Caregiver Discharge Instructions Other Discharge Activity Instructions:: - Follow up with PCP within 1 week - Discontinued Amlodipine. Started on Nifedipine 30mg three times a day for BP control - Increased Hydralazine from 50mg to 100mg three times a day for BP control - Increased Bumex to 2mg twice a day - Continue all other home medications - Per GI recommendations, patient will need outpatient referral for capsule endoscopy - Return to ED if symptoms worsen Education Materials: Anemia, Chronic Pain Therapies Mind Body Print Language: Welsh Stand Alone Forms: [facility] Award Info., Patient Portal Info Letter Discharge Order Discharge Orders: Discharge (Routine); Ordered 07/25/24 Ordered By: Michael Alan Quality Discharge Quality Measures VTE prophylaxis (SCDs)
--- NOTE | 2024-07-25 19:50 | PC.NURSE ---
Addendum entered by Amy Meza RN 07/25/24 19:55: 1730 REPORT CALLED TO [facility] AT RECEIVING SNF. Original Note: 1730 PATIENT READY FOR DISCHARGE. ASSISTED TO GET DRESSED. BELONGINGS AND WOUND CARE SUPPLIES BAGGED AND READY. TRANSPORTATION TO [facility] AT 1800 1830 PATIENT STILL NOT PICKED UP. [facility] CALLED STATING PAPERWORK NOT DONE RIGHT. REFAXED AND WAITING FOR NEW ALTERATION INSPECTOR TIME 1930 PATIENT INFORMED NEW ALTERATION INSPECTOR TIME IS 2030
[2024-07-25] MEDS: MELATONIN 3 MG TABLET PO (20:17)
[2024-07-25] MEDS: ATORVASTATIN CALCIUM 20 MG TABLET 80 MG PO (20:17)
[2024-07-25] MEDS: HYDROcodone/APAP 5/325 TABLET 1 TAB PO (20:18)
--- NOTE | 2024-07-25 22:04 | PD.IMPROG ---
Documentation for date of: 07/25/24 Subjective Subjective Interval history: Late entry for the note hemoglobin hematocrit 8.2 and 27.7 Okay to discharge patient home Case discussed with internal medicine team PCP to refer him to a tertiary center for capsule endoscopy Exam Vital Signs Temp Pulse Resp BP Pulse Ox O2 Del Method O2 Flow Rate 98.7 F 74 20 152/78 H 96 Nasal Cannula 2 07/25/24 20:00 07/25/24 20:18 07/25/24 20:00 07/25/24 20:18 07/25/24 20:00 07/25/24 20:00 07/25/24 20:00 FiO2 40 07/25/24 16:00 Objective Labs 07/25/24 04:54 07/25/24 04:54 Labs: Laboratory Results - last 24 hr 07/25/24 04:54 WBC 7.1 RBC 3.22 L Hgb 8.2 L Hct 27.7 L MCV 86 MCH 25.5 MCHC 29.6 L RDW Std Deviation 48.9 H Plt Count 231 Neut % (Auto) 71 Lymph % (Auto) 14 [place] % (Auto) 11 Eos % (Auto) 3 Baso % (Auto) 0 Neut # (Auto) 5.0 Lymph # (Auto) 1.0 [place] # (Auto) 0.8 Eos # (Auto) 0.2 Baso # (Auto) 0.0 Immature Gran # (Auto) 0.04 H Absolute Nucleated RBC 0.00 Immature Gran % 1 H Nucleated RBC % 0 Sodium 144 Potassium 3.8 Chloride 108 H Carbon Dioxide 30.3 Anion Gap 6 L BUN 32 H Creatinine 1.1 Estim Creat Clear Calc 97.9 eGFR > 60 BUN/Creatinine Ratio 29 H Glucose 184 H Calculated Osmolality 298 H Calcium 8.4 Corrected Calcium 9.2 Phosphorus 3.7 Magnesium 1.6 Total Bilirubin < 0.2 L AST 26 ALT 12 Alkaline Phosphatase 95 Total Protein 6.4 Albumin 3.0 L Globulin 3.4 Albumin/Globulin Ratio 0.9 L Impressions Impression: # Posthemorrhagic anemia PCP to refer the patient outpatient to a tertiary center for capsule endoscopy ABG Interpretation ABG results: 07/14/24 07/15/24 07/15/24 16:37 00:44 03:54 ABG pH 7.29 L 7.31 L 7.32 L ABG pCO2 56 H 54 H 53 H ABG pO2 152 H 50 L* D 122 H D ABG HCO3 27 H 28 H 27 H ABG O2 Saturation 99 H 81 L 99 H ABG Base Excess 1 1 1 07/15/24 07/17/24 07/18/24 14:45 12:51 08:57 ABG pH 7.40 7.36 7.33 L ABG pCO2 45 58 H D 60 H ABG pO2 74 L D 109 H D 72 L D ABG HCO3 27 H 33 H 32 H ABG O2 Saturation 95 99 H 93 ABG Base Excess 2 6 H 5 H 07/19/24 08:35 ABG pH 7.36 ABG pCO2 57 H ABG pO2 268 H D ABG HCO3 32 H ABG O2 Saturation 99 H ABG Base Excess 6 H Assessment & Plan A&P Narrative # Anemia blood loss requiring blood transfusion Once patient's respiratory status stabilizes GoLytely prep and schedule colonoscopy Agree with the blood transfusion Other medical problems include # Acute hypoxic respiratory failure requiring BiPAP # CAROLYN # History congestive heart failure # CVA requiring bilateral endarterectomy IDDM # Pulmonary embolism on Eliquis Thank you very much for the opportunity to participate in the care of this patient Time Spent With Patient Time: Total time spent is greater than 50% in coordination of care (as documented) at patient's floor/unit and/or counseling patient:
== END 2024-07-25 20:34 | disposition skilled nursing facility (03) | DRG 133 ==
LOC: SERX 15:28 → SERHOLD 17:00 → S3SX 07-16 10:19 → SERHOLD 07-17 06:17 → S2SX 07-17 06:18 → S3SX 07-17 06:18 → S2SX 07-17 06:18 → S3SX 07-17 06:18 → S3NX 07-19 20:44 → S2NX 07-20 10:56 → S3SX 07-24 00:49
PROVIDERS: Specialist; Student in an Organized Health Care Education/Training Program; Admitting Provider Internal Medicine; Emergency Provider Emergency Medicine; PCP Nurse Practitioner Family; Visit Provider Internal Medicine
PROC: 0DJD8ZZ Inspection of Lower Intestinal Tract, Via Natural or Artificial Opening Endoscopic (ICD-10-PCS; CPT 45378; principal; 2024-07-18 18:30)
DX: J96.01 Acute respiratory failure with hypoxia (principal); I11.0 Hypertensive heart disease with heart failure; J96.02 Acute respiratory failure with hypercapnia; K64.9 Unspecified hemorrhoids; I25.10 Atherosclerotic heart disease of native coronary artery without angina pectoris; K57.31 Diverticulosis of large intestine without perforation or abscess with bleeding; D12.0 Benign neoplasm of cecum; K62.1 Rectal polyp; D62 Acute posthemorrhagic anemia; E66.2 Morbid (severe) obesity with alveolar hypoventilation; Z68.42 Body mass index [BMI] 45.0-49.9, adult; E11.9 Type 2 diabetes mellitus without complications; E78.5 Hyperlipidemia, unspecified; E83.39 Other disorders of phosphorus metabolism; E87.29 Other acidosis; I50.33 Acute on chronic diastolic (congestive) heart failure; G93.49 Other encephalopathy; E87.0 Hyperosmolality and hypernatremia; I16.0 Hypertensive urgency; K74.60 Unspecified cirrhosis of liver; G89.29 Other chronic pain; M54.9 Dorsalgia, unspecified; L89.150 Pressure ulcer of sacral region, unstageable; I95.9 Hypotension, unspecified; F17.210 Nicotine dependence, cigarettes, uncomplicated; Z86.711 Personal history of pulmonary embolism; Z86.73 Personal history of transient ischemic attack (TIA), and cerebral infarction without residual deficits; Z92.3 Personal history of irradiation; Z87.19 Personal history of other diseases of the digestive system; Z95.5 Presence of coronary angioplasty implant and graft; Z91.119 Patient's noncompliance with dietary regimen due to unspecified reason; Z91.148 Patient's other noncompliance with medication regimen for other reason; Z91.199 Patient's noncompliance with other medical treatment and regimen due to unspecified reason; Z78.1 Physical restraint status; Z79.01 Long term (current) use of anticoagulants; Z79.4 Long term (current) use of insulin; Z79.899 Other long term (current) drug therapy
CPT/HCPCS: 36415; 36600; 70450; 71045; 80053; 80307; 81001; 82140; 82607; 82746; 82803; 83605; 83735; 83880; 84100; 84443; 84484; 85014; 85018; 85025; 85610; 85730; 86850; 86900; 86901; 86923; 87040; 87081; 87811; 93005; 93225; 93970; 94640; 94644; 94660; 96372; 96374; 96375; 97162; 99285; 99308; A4216; A4649; A9270; J0696; J1200; J1630; J1815; J1940; J2060; J2250; J2270; J2358; J2470; J2919; J3010; J3475; J3490; P9016; J2359

== ENCOUNTER 2024-07-30 08:33 | Inpatient (IN) | payer MEDICAID, SELFPAY ==
[2024-07-30] VITALS (14 sets, daily range): BP systolic 104–170; BP diastolic 57–120; PULSE 73–96; RESP 17–29; TEMP 36–36.9; O2SAT 95–100; BMI 41.4
--- NOTE | 2024-07-30 08:55 | EKG_ITS ---
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
--- NOTE | 2024-07-30 08:55 | PD.EDAMS ---
Altered Mental Status RME/HPI General Chief Complaint: Altered Mental Status Stated Complaint: ALTERED MENTAL Time Seen by Provider: 07/30/24 08:53 Arrival date/time: 07/30/24 08:33 RME / HPI RME / HPI narrative: DR. MERRITT MAIN ED EVALUATION: 54 year old male presents to the Emergency Department [facility] with complaint of altered mental status. About 2 hours prior to arrival, patient had refused EMS to come here but at this time he was confused. PMHx: CVA, CAD s/p stenting, HFpEF 55-60% 04/2024, asthma, CAROLYN, hypertension, insulin-dependant diabetes, CHF, PE on Eliquis, hypercholesterolemia. Social Hx: No tobacco, alcohol, or substance use. History of CHF and history of reported of noncompliant of fluid restriction. Related Data Home Medications ?Medication ?Instructions ?Recorded ?Confirmed hydrocodone 10 mg-acetaminophen 1 tab PO Q4H PRN Pain, Moderate 10/22/23 07/16/24 325 mg tablet pregabalin 150 mg capsule 150 mg PO TID 10/22/23 07/16/24 morphine 15 mg tablet,extended 15 mg PO QDAY PRN Pain, Severe 01/14/24 07/16/24 release apixaban 5 mg tablet 5 mg PO BID 06/25/24 07/16/24 ascorbic acid (vitamin C) 500 mg 500 mg PO BID 06/25/24 07/16/24 tablet (Vitamin C) atorvastatin 80 mg tablet 80 mg PO QPM 06/25/24 07/16/24 budesonide-formoterol HFA 160 2 puff inhalation BID 06/25/24 07/16/24 mcg-4.5 mcg/actuation aerosol inhaler vitamin B complex-vitamin C-folic 1 tab PO QDAY 06/25/24 07/16/24 acid 0.8 mg tablet (Sapphire-Holly) furosemide 40 mg tablet (Lasix) 40 mg PO QDAY 07/16/24 07/16/24 insulin lispro 100 unit/mL See Protocol subcut AC 07/16/24 07/16/24 subcutaneous pen (Humalog KwikPen (U-100) Insulin) loperamide 2 mg tablet 2 mg PO Q6H PRN Diarrhea 07/16/24 07/16/24 Previous Rx's ?Medication ?Instructions ?Recorded sennosides 8.6 mg tablet (senna) 8.6 mg PO BID PRN constipation #30 10/26/23 tabs metoclopramide HCl 5 mg tablet 5 mg PO Q6H gastroparesis 30 days 01/17/24 #120 tabs losartan 50 mg tablet 50 mg PO QDAY #30 tabs 05/22/24 insulin detemir U-100 100 unit/mL 30 unit (0.3 mL) subcut BID #15 mL 06/29/24 (3 mL) subcutaneous pen tirzepatide (weight loss) 2.5 2.5 mg (0.5 mL) subcut QWEEK #2 mL 07/21/24 mg/0.5 mL subcutaneous pen injector (Zepbound) carvedilol 3.125 mg tablet 6.25 mg (2 x 3.125 mg) PO BIDWM 07/23/24 #60 tabs bumetanide 2 mg tablet 2 mg PO BID 1 month #60 tabs 07/24/24 hydralazine 100 mg tablet 100 mg PO TID 1 month #90 tabs 07/24/24 nifedipine 30 mg tablet,extended 30 mg PO BID 1 month #60 tabs 07/24/24 release Allergies Allergy/AdvReac Type Severity Reaction Status Date / Time ketorolac Allergy Severe TONGUE Verified 07/26/23 22:55 SWELLS UP escitalopram Allergy Intermediate Rash Verified 06/28/24 10:52 Review of Systems Review of Systems ROS Unobtainable: unobtainable due to mental status Past Medical History Past Medical History NEUROLOGIC: Positive Neurological Disorders, Cerebrovascular Accident, Transient Ischemic Attacks (TIA) and Willis's Palsy; Negative Seizures CARDIAC: Positive Cardiac Disorders, Myocardial Infarction, Coronary Artery Disease, Atherosclerotic Heart Disease, Hypercholesterolemia, Congestive Heart Failure, Cellulitis, Deep Vein Thrombosis and Hypertension RESPIRATORY: Positive Asthma, Pulmonary Embolism and Sleep Apnea; Negative Chronic Obstructive Pulmonary Disease (COPD) or Pneumonia GASTROINTESTINAL: Positive Gastrointestinal Disorders, 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) and Obesity GENITOURINARY: Positive Genitourinary Disorders and Kidney Stones; Negative Renal Disease MUSCULOSKELETAL: Positive Musculoskeletal Disorders and Degenerative Disk Disease; Negative Bone Cancer, Carpal Tunnel Syndrome or Fractures ENDOCRINE: Positive Endocrine Disorders and Diabetes Mellitus Type 2; Negative Diabetes Mellitus Type 1 HEMATOLOGIC: Positive Blood Disorders and Anemia; Negative Sickle Cell Disease PSYCHO/SOCIAL: Positive Anxiety OTHER HISTORY: Positive Falls, Blood Transfusions (07/14/24 2 units PRBC) and Chicken Pox; Negative Autoimmune Disease, Blood Transfusion Reaction, Anesthesia Reactions, Organ Transplant, MRSA, VRSA, Vancomycin-Resistant Enterococci, Clostridium Difficile or Cancer Family History FAMILY HISTORY: Positive Family Respiratory Disorders and Family Cardiac Disorders; Negative Family Neurologic Problems Surgical History SURGICAL: Positive Cardiac Surgery, Coronary Stent and Carotid Endarterectomy; Negative Ear Surgery, Abdominal Surgery, Joint Replacement, Amputation, Open Reduction Internal Fixation, Arthroscopy, Neurologic Surgery, Vasectomy or Organ Transplant Social History SMOKING STATUS: Heavy (> 1 pack/day) SECOND HAND EXPOSURE: No ([id number] x 4 yrs) SUBSTANCE USE: does not use ED Exam Narrative Physical exam: GENERAL APPEARANCE: altered, responds to painful stimuli only; edematous, morbidly obese VITALS: All vitals were reviewed and the pulse ox is 99% on room air, which is normal according to my interpretation. HEENT: Normocephalic, atraumatic; pupils equal, round, reactive to light; EOMI; mucous membranes pink, moist; oropharynx clear NECK: Supple LUNGS: CTABL; no wheezes, no rales, no rhonchi HEART: Regular rate, regular rhythm; normal S1, S2; no murmurs ABDOMEN: non distended; normal BS; soft, no tenderness, no guarding, no rebound; no masses, no organomegaly, no hernia BACK: no CVA tenderness EXTREMITIES: atraumatic; no edema NEUROLOGIC: altered, responds to painful stimuli only PSYCHIATRIC: unobtainable SKIN: warm, dry, normal color; no rashes Course Course Course Narrative: 0850: Considering intubation, but will try first a short trial of bipap. Blood glucose here is 116. Quality Measures none Orders Category Date Time Status Admit to Inpatient Status Routine Admission 07/30/24 12:14 Active Patient Condition Routine Admission 07/30/24 12:14 Ordered Creative Lead NOW Care 07/30/24 08:55 Active EKG (ED ONLY) *Do not use* NOW Care 07/30/24 08:55 Completed NPO NOW Care 07/30/24 12:15 Active Notify provider NEEDED Care 07/30/24 12:14 Active Diet NPO (NOW) Diet 07/30/24 12:15 Active EKG (ED Only) Stat Exams 07/30/24 08:55 Draft XR chest 1V portable Stat Exams 07/30/24 08:55 Completed ABG [Arterial Blood Gas] Stat Lab 07/30/24 09:00 Completed ABG [Arterial Blood Gas] Stat Lab 07/30/24 10:08 Completed ABG [Arterial Blood Gas] Stat Lab 07/30/24 11:26 Completed ABG [Arterial Blood Gas] Urgent Lab 07/30/24 13:00 Ordered B-Type Natriuretic Peptide Stat Lab 07/30/24 09:04 Completed BMP [Basic Metabolic Panel] Urgent Lab 07/30/24 13:00 Ordered Blood Culture (Lab) Stat Lab 07/30/24 08:55 Received CBC AM DRAW Lab 07/31/24 05:00 Ordered CBC AM DRAW Lab 08/01/24 05:00 Ordered CBC AM DRAW Lab 08/02/24 05:00 Ordered CBC Stat Lab 07/30/24 09:04 Completed Comprehensive Metabolic Panel AM DRAW Lab 07/31/24 05:00 Ordered Comprehensive Metabolic Panel AM DRAW Lab 08/01/24 05:00 Ordered Comprehensive Metabolic Panel AM DRAW Lab 08/02/24 05:00 Ordered Comprehensive Metabolic Panel Stat Lab 07/30/24 09:04 Completed Lactate (Lactic Acid) Stat Lab 07/30/24 09:04 Completed Lipase Stat Lab 07/30/24 09:04 Completed Magnesium AM DRAW Lab 07/31/24 05:00 Ordered Magnesium AM DRAW Lab 08/01/24 05:00 Ordered Magnesium AM DRAW Lab 08/02/24 05:00 Ordered Magnesium Stat Lab 07/30/24 09:04 Completed Partial Thromboplastin Time Stat Lab 07/30/24 09:04 Completed Phosphorous AM DRAW Lab 07/31/24 05:00 Ordered Phosphorous AM DRAW Lab 08/01/24 05:00 Ordered Phosphorous AM DRAW Lab 08/02/24 05:00 Ordered Procalcitonin Stat Lab 07/30/24 09:04 Completed Prothrombin Time with INR Stat Lab 07/30/24 09:04 Completed Thyroid Stimulating Hormone AM DRAW Lab 07/31/24 05:00 Ordered Troponin I Stat Lab 07/30/24 09:04 Completed Azithromycin Inj [Zithromax Inj] 500 mg Med 07/30/24 10:39 Discontinued Sodium Chloride 0.9% 250 ml [Ns] 250 ml IV X1 Calcium Gluconate 10% Inj Med 07/30/24 10:35 Discontinued 1 gm IV X1 ONE Dextrose 50% Syr [D50w Syringe Abboject] Med 07/30/24 10:35 Discontinued 50 ml IV X1 ONE Heparin Inj Med 07/30/24 21:00 Active 5,000 unit SC BID Insulin Regular Med 07/30/24 10:35 Discontinued 5 unit IV X1 ONE Ondansetron Inj [Zofran Inj] Med 07/30/24 12:14 Active 4 mg IV Q6H PRN cefTRIAXone [Rocephin] 1,000 mg Med 07/30/24 10:40 Discontinued Sodium Chloride 0.9% [Ns] 50 ml IV X1 Code Status Routine Oth 07/30/24 12:14 Ordered BiPAP / CPAP NOW RT 07/30/24 09:03 Active Vital Signs Vital signs: Vital Signs Pulse Rate 81 07/30/24 09:03 Respiratory Rate 25 H 07/30/24 09:03 Pulse Oximetry (%) 99 07/30/24 09:03 Fraction of Inspired Oxygen 40 07/30/24 09:03 Altered Mental Status MDM Narrative MDM Narrative:: IMaegan am scribing for and in the presence of Dr. Merritt. Last admission 07/14/2024 - 07/25/2024 for acute hypoxic hypercapnic respiratory failure EGD 06/27/2024 Colonoscopy 07/18/2024 Echocardiogram 04/24/2024: Suboptimal images due to body habitus. Normal LV size and function. Mild LVH. Grade I diastolic dsyfunction. Estimated EF 55-60% Mild RV dilation. Normal RV function. Mild biatrial dilation. Trace MR, TR. Mild AV sclerosis without stenosis. There is a small circumferential pericardial effusion. No evidence of cardiac tamponade. Patient data External records reviewed:: [facility] previous records (Reviewed last admission discharge dated 07/25/24, patient admitted for the following: COPD exacerbation, Blood loss anemia, GI bleed) and EMS form Clinical information provided by:: EMS Social determinants that could affect healthcare access:: none Patient has the following chronic illnesses:: CVA, CAD s/p stenting, HFpEF 55-60% 04/2024, asthma, CAROLYN, hypertension, insulin-dependant diabetes, CHF, PE on Eliquis, hypercholesterolemia. Social Hx: No tobacco, alcohol, or substance use. History of CHF and history of reported of noncompliant of fluid restriction. How is presenting disease/condition affected by chronic disease/condition?: exacerbated by Evaluation data The following diagnostics were reviewed and interpreted by me:: lab results, radiology exam(s) and EKG tracing(s) (EKG#1: EKG at 0913 hours. Interpreted by me: sinus rhythm, rate 77, borderline left axis deviation) Lab and/or radiology exams considered but not ordered:: none Interpretation Summary: Procedure(s): XR chest 1V portable Accession Number(s): [id number] cc: Julio Beebe MD; NO PRIMARY/FAMILY,PHYSICIAN; Gregoria Merritt MD~ Examination: AP chest single view Technique one AP portable supine chest single view Exam date time: July 30, 2024 0932 hrs. Comparison July 14, 2024 Indications: Altered mental status shortness of breath today. Findings: Moderate CHF Moderate enlargement cardiac contour Prominent vascular congestion with perihilar edema Moderate osteopenia Impression: Moderate CHF Dictated By: Julio Beebe MD Medications / Prescriptions Medications or Prescriptions considered but not ordered:: none Medication administrations:: Medication Administration History Heparin Sodium (Porcine) (Heparin Sod Inj 5000 Unit/Ml Vial) 5,000 unit SC BID RINA Stop: 08/13/24 20:59 Ondansetron HCl (Ondansetron Inj 2 Mg/Ml Inj 2 Ml) 4 mg IV Q6H PRN; Protocol PRN Reason: NAUSEA OR VOMITING Stop: 08/29/24 12:13 Discontinued Medications Calcium Gluconate (Calcium Gluconate 10% Inj 1 Gm/10 Ml Vial) 1 gm IV X1 ONE Stop: 07/30/24 10:36 Last Admin: 07/30/24 10:49 Dose: 1 gm Documented By: BELGICA Dextrose (Dextrose 50%-Water Inj 50 Ml Syringe) 50 ml IV X1 ONE Stop: 07/30/24 10:36 Last Admin: 07/30/24 10:47 Dose: 50 ml Documented By: BELGICA Ceftriaxone Sodium 1,000 mg/ (Sodium Chloride) 50 mls @ 100 mls/hr IV X1 ONE Stop: 07/30/24 11:09 Last Infusion: 07/30/24 11:37 Dose: Infused Documented By: Admin: 07/30/24 11:05 Dose: 100 mls/hr Documented By: BELGICA Azithromycin 500 mg/ Sodium (Chloride) 250 mls @ 250 mls/hr IV X1 ONE Stop: 07/30/24 11:38 Last Infusion: 07/30/24 12:09 Dose: Infused Documented By: Admin: 07/30/24 11:24 Dose: 250 mls/hr Documented By: BELGICA Insulin Human Regular (Insulin Hum Regular 1 Unit/0.01 Ml (Per Unit)) 5 unit IV X1 ONE Stop: 07/30/24 10:36 Last Admin: 07/30/24 10:51 Dose: 5 unit Documented By: BELGICA Co-signed By: SHEREE see above Consultations Consultation(s) initiated? (list below): Yes Consultation #1 (Physician, Specialty, Details): Discussed test HPI, PMHx, lab, radiology results and/or management with hospitalist. Will admit for further evaluation and management. Accepts patient for admission. Time: 12:00 Diagnosis Differential diagnosis altered mental status: altered mental status, sepsis and other (Acute respiratory failure, CHF exacerbation, pneumonia) Most likely diagnosis given after review of the tests above:: Acute respiratory failure CHF exacerbation Hypercapnic hypoxic respiratory failure Admission Indicated Admission indicated?: indicated Admission Request Was there a request for admission?: Yes Admission Attestation Admission request attestation: Discussed case with [] from Hospitalist service regarding admission. Discussed patients ED course, exam findings, labs, and radiology results. The Hospitalist [agrees,declines] to accept the patient for admission. Disposition Plan Disposition Plan: Admit Critical Care Time Critical Care Time Critical Care Time: Yes Total Critical Care Time (min.): 45 Attestation: The high probability of sudden, clinically significant deterioration in the patient?s condition required the highest level of my preparedness to intervene urgently. The services I provided to this patient were to treat and/or prevent clinically significant deterioration. Services included the following: chart data review, reviewing nursing notes and/or old charts, documentation time, hearing consultant collaboration regarding findings and treatment options, medication orders and management, direct patient care, vital sign assessments and ordering, interpreting and reviewing diagnostic studies and lab tests. Aggregate critical care time includes only time during which I was engaged in work directly related to the patient?s care, as described above, whether at bedside or elsewhere in the Emergency Department. It did not include time spent performing other reported procedures or the services of residents, students, nurses or physician assistants. Discharge Plan Prescriptions/Referrals Prescriptions/Med Rec: No Action hydrocodone-acetaminophen 10-325 mg tablet 1 tab PO Q4H PRN (Reason: Pain, Moderate) pregabalin 150 mg capsule 150 mg PO TID sennosides [senna] 8.6 mg tablet 8.6 mg PO BID PRN (Reason: constipation) Qty: 30 0RF morphine 15 mg tablet extended release 15 mg PO QDAY PRN (Reason: Pain, Severe) metoclopramide HCl 5 mg tablet 5 mg PO Q6H 30 Days Qty: 120 3RF losartan 50 mg tablet 50 mg PO QDAY Qty: 30 0RF atorvastatin 80 mg Tablet 80 mg PO QPM ascorbic acid (vitamin C) [Vitamin C] 500 mg Tablet 500 mg PO BID Sapphire-Holly 0.8 mg Tablet 1 tab PO QDAY budesonide-formoterol 160-4.5 mcg/actuation Hfa Aerosol Inhaler 2 puff INHALATION BID apixaban 5 mg Tablet 5 mg PO BID insulin detemir U-100 100 unit/mL (3 mL) Insulin Pen 30 unit SUBCUT BID Qty: 15 0RF furosemide [Lasix] 40 mg Tablet 40 mg PO QDAY loperamide 2 mg Tablet 2 mg PO Q6H PRN (Reason: Diarrhea) insulin lispro [Humalog KwikPen Insulin] 100 unit/mL insulin pen See Protocol SUBCUT AC Protocol: Insulin Corrective High-Dose Regimen Condition: Fingerstick Blood Glucose Dose/Route: Insulin Units Condition: 141-180 mg/dl Dose/Route: 6 units/SQ Condition: 181-220 mg/dl Dose/Route: 8 units/SQ Condition: 221-260 mg/dl Dose/Route: 10 units/SQ Condition: 261-300 mg/dl Dose/Route: 12 units/SQ Condition: 301-350 mg/dl Dose/Route: 14 units/SQ Condition: 351-400 mg/dl Dose/Route: 16 units/SQ Condition: greater than 400 mg/dl Dose/Route: 18 units/SQ Zepbound 2.5 mg/0.5 mL pen injector 2.5 mg subcut QWEEK Qty: 2 2RF Rx Instructions: Please double the dose every 2 weeks as tolerated until maximum dose of 10mg/Week. carvedilol 3.125 mg Tablet 6.25 mg PO BIDWM Qty: 60 0RF bumetanide 2 mg tablet 2 mg PO BID 30 Days Qty: 60 0RF nifedipine 30 mg tablet extended release 30 mg PO BID 30 Days Qty: 60 0RF hydralazine 100 mg tablet 100 mg PO TID 30 Days Qty: 90 0RF Referrals: No Primary/Family,Physician [Primary Care Provider] - In 1 week Problem List Clinical Impression: Acute respiratory failure, CHF exacerbation, Respiratory failure with hypoxia and hypercapnia Patient/Caregiver Discharge Instructions Print Language: Ken[place] Stand Alone Forms: Work/School Release
[2024-07-30 09:06] LABS: Base Excess 3 (-3-3); HCO3 30 mEq/L (20-26); Inspired Oxygen, FIO2 40 %; O2 Saturation 100 % (91-98); PCO2 59 mmHg (32.0-48.0); PO2 144 mmHg (83-108); pH, Arterial 7.31 (7.35-7.45)
[2024-07-30 09:18] LABS: Allen Test Performed/OK; Puncture Site Right Radial
[2024-07-30 09:20] LABS: Lactate (Lactic Acid) 0.8 mMol/L (0.4-2.0)
[2024-07-30 09:31] LABS: Basophils # (Auto) 0.1 Thou/mm3 (0.0-0.2); Basophils % (Auto) 0 % (0-2.5); Eosinophils # (Auto) 0.3 Thou/mm3 (0.0-0.5); Eosinophils % (Auto) 3 % (0-10); Hematocrit 28.4 % (41.0-53.0); Immature Granulocytes % (Auto) 2 % (0-0); Immature Granulocytes Auto 0.24 Thou/mm3 (0.00-0.00); Lymphocytes # (Auto) 1.4 Thou/mm3 (1.0-4.8); Lymphocytes % (Auto) 11 % (10-50); Mean Corpuscular HGB Conc 28.9 g/dl (31.0-37.0); Mean Corpuscular Hemoglobin 25.6 pg (25.0-35.0); Mean Corpuscular Volume 89 fL (80-100); Monocytes # (Auto) 1.8 Thou/mm3 (0.0-0.8); Monocytes % (Auto) 13 % (0-12); Neutrophils # (Auto) 9.6 Thou/mm3 (1.8-7.7); Neutrophils % (Auto) 71 % (37-80); Nucleated Red Blood Cell % 0 /100 WBC (0); Platelet Count 276 Thou/mm3 (140-440); RDW Standard Deviation 51.6 fL (35.1-43.9); White Blood Count 13.5 Thou/mm3 (3.8-10.6)
[2024-07-30 09:38] LABS: Partial Thromboplastin Time 30.6 Seconds (22.0-36.0); Prothrombin Time 11.4 Seconds (9.0-12.2)
[2024-07-30 09:39] LABS: Hemoglobin 8.2 g/dL (13.5-16.0)
[2024-07-30 09:58] LABS: B-Type Natriuretic Peptide 122 pg/mL (0-100)
[2024-07-30 10:13] LABS: Base Excess 3 (-3-3); HCO3 31 mEq/L (20-26); Inspired Oxygen, FIO2 40 %; O2 Saturation 98 % (91-98); PCO2 66 mmHg (32.0-48.0); PO2 103 mmHg (83-108); pH, Arterial 7.28 (7.35-7.45)
[2024-07-30 10:15] LABS: Alanine Aminotransferase 17 U/L (10-49); Albumin, Serum 3.3 gm/dL (3.5-5.0); Alkaline Phosphatase 93 U/L (46-116); Anion Gap 2 (7-16); Aspartate Amino Transferase 31 U/L (0-34); BUN/Creatinine Ratio 35 Ratio (12-20); Bilirubin,Total < 0.2 mg/dL (0.3-1.2); Blood Urea Nitrogen 52 mg/dL (9-23); Calcium 7.7 mg/dL (8.3-10.6); Calcium (Corrected) 8.3 mg/dL (8.5-10.1); Carbon Dioxide 30.1 mMol/L (20.0-31.0); Chloride 107 mMol/L (98-107); Creatinine (Component) 1.5 mg/dL (0.6-1.3); Estimated Creatinine Clearance 74.8 mL/min (>60); Globulin 3.3 gm/dL (2.3-3.5); Glucose 124 mg/dL (74-106); Lipase 45 U/L (12-53); Magnesium 1.8 mg/dL (1.6-2.6); Osmolality,Calculated 292 (275-295); Procalcitonin 0.27 ng/ml (0.0-0.49); Sodium 139 mMol/L (136-145); Total Protein 6.6 gm/dL (5.7-8.2); Troponin I < 0.020 ng/mL (0.0-0.045); eGFR 54 See Note
[2024-07-30 10:16] LABS: Allen Test Performed/OK; Puncture Site Left Radial
--- NOTE | 2024-07-30 10:23 | PC.NURSE ---
Patient is from [facility] ([phone]). on a fluid restriction at [facility] of 1800ml daily
--- NOTE | 2024-07-30 10:27 | PC.NURSE ---
POLST SENT FROM [place] FULL [facility]. THIS POLST IS NOT SIGNED BY A PHYSCIAN
[2024-07-30] MEDS: DEXTROSE 50%-WATER INJ 50 ML SYRINGE IV (10:47)
[2024-07-30] MEDS: CALCIUM GLUCONATE 10% INJ 1 GM/10 ML VIAL IV (10:49)
[2024-07-30] MEDS: INSULIN HUM REGULAR 1 UNIT/0.01 ML (PER UNIT) 5 UNIT IV (10:51)
[2024-07-30] MEDS: AZITHROMYCIN INJ 500 MG in SODIUM CHLORIDE 0.9% 250 ML 250 ML 250 MG IV (11:24)
[2024-07-30 11:29] LABS: Base Excess 3 (-3-3); HCO3 30 mEq/L (20-26); Inspired Oxygen, FIO2 40 %; O2 Saturation 100 % (91-98); PCO2 60 mmHg (32.0-48.0); PO2 156 mmHg (83-108); pH, Arterial 7.31 (7.35-7.45)
[2024-07-30 11:32] LABS: Allen Test Performed/OK; Puncture Site Right Radial
--- NOTE | 2024-07-30 12:16 | PC.NURSE ---
Patient is becoming more responsive. Removed his bipap and stated he wanted to lay on his side because he has a wound on his bottom. Patient was repositioned and RT reapplied bipap
[2024-07-30] MEDS: ONDANSETRON INJ 2 MG/ML INJ 2 ML 4 MG IV (12:31)
--- NOTE | 2024-07-30 12:43 | ESHP_ITS ---
Documentation for date of: 07/30/24 [facility] History of Present Illness Chief complaint: dyspnea History of present illness: Patient is a 54 year old male with HFpEF(EF 55-60% 04/24/2024), coronary artery disease s/p stent 5 years ago, IDDM, CVA, carotid artery stenosis s/p bilateral endarterectomy 2018, pulmonary embolism on ELIQUIS, hypertension, obstructive sleep apnea, cirrhosis, history of vertebral hemangioma s/p radiation therapy who presented to the ED on 07/30 from SNF for altered mental status and dyspea. Patient has been feeling short of breath at rest since hospital discharge Jul 25. Nursing staff found him this morning very short of breath and wanted to bring him to the hospital, but patient refused. Later, nursing staff found him altered so brought him to the ER. In the ER, patient was confused and responsive to pain. He was placed on BIPAP. Initial ABG showed respiratory acidosis with hypercapnia. Labs showed leukocytosis and hyperkalemia. He was treated with IV insulin and D50, calcium gluconate. CXR was suggestive of moderate CHF, and he was treated with azithromycin and ceftriaxone. Repeat ABG showed improvement in pH and hypercapnia. Upon evaluation, patient was on BIPAP. History obtained from ER report, daughter at bedside, and chart review. He is more responsive, orientated to name and place, following commands. Denies fevers, sick contact at the facility. Shortness of breath at rest, no relieving factors. Non-ambulatory, uses wheelchair at baseline. Of note, he was worked up for anemia on previous admission and udnerwent EGD and colonoscopy- 06/25/2024 EGD : small duodenal ulcer in the junction of duodenal bulb and descending duodenum gastritis. 07/18/24 Colonoscopy : polyp that was resected and sent for pathology reporting. Meds: zepbound, coreg, bumex, nifedepine, hydralazine, pregabalin, losarta, atorvastatin, radha-halina, eliquis (med recc pending) PSHx: Endarterectomy, stent placements ALLERGIES: KETOROLAC, ESCITALOPRAM SH: Occasional alcohol drinker, 20 pack year smoking history, current marijuana user. Review of Systems Review of Systems Systems Reviewed: All systems reviewed, normal except as documented Exam Vital Signs Temp Pulse Resp BP Pulse Ox O2 Del Method FiO2 97.2 F 76 24 H 113/57 L 97 BiPAP 40 07/30/24 12:15 07/30/24 12:15 07/30/24 12:15 07/30/24 12:15 07/30/24 12:15 07/30/24 12:15 07/30/24 11:25 Narrative Exam Constitutional: On BIPAP. Lethargic. Following commands. HEENT: NCAT; edematous around eyes. Respiratory: Difficult to auscultate due to body habitus Cardiac: RRR. Abdomen: Soft, non-distended, non-tender. No guarding, no rebound. MSK: B/L LE edema 2-3+ Neuro: Motor and sensation grossly intact. GCS 14 [id number] Results: Labs 07/31/24 05:15 07/31/24 05:15 Labs: Short CBC 07/30/24 Range/Units 09:04 WBC 13.5 H D (3.8-10.6) Thou/mm3 Hgb 8.2 L (13.5-16.0) g/dL Hct 28.4 L (41.0-53.0) % Plt Count 276 D (140-440) Thou/mm3 BMP 07/30/24 09:04 Sodium 139 Potassium 6.0 H Chloride 107 Carbon Dioxide 30.1 BUN 52 H Creatinine 1.5 H Glucose 124 H Calcium 7.7 L Cardiac Enzymes 07/30/24 Range/Units 09:04 Troponin I < 0.020 (0.0-0.045) ng/mL Liver Function 07/30/24 Range/Units 09:04 Total Bilirubin < 0.2 L (0.3-1.2) mg/dL AST 31 (0-34) U/L ALT 17 (10-49) U/L Alkaline Phosphatase 93 (46-116) U/L Albumin 3.3 L (3.5-5.0) gm/dL ABG Interpretation ABG results: 07/30/24 07/30/24 07/30/24 09:00 10:08 11:26 ABG pH 7.31 L 7.28 L 7.31 L ABG pCO2 59 H 66 H 60 H ABG pO2 144 H 103 D 156 H D ABG HCO3 30 H 31 H 30 H ABG O2 Saturation 100 H 98 100 H ABG Base Excess 3 3 3 Quality Measures Quality Measures none Medications Home Medications and Allergies Home Medications ?Medication ?Instructions ?Recorded ?Confirmed ?Type hydrocodone 10 mg-acetaminophen 1 tab PO Q4H PRN Pain, Moderate 10/22/23 07/31/24 History 325 mg tablet pregabalin 150 mg capsule 150 mg PO TID 10/22/2307/31 History morphine 15 mg tablet,extended 15 mg PO QDAY PRN Pain, Severe 01/14/24 07/31/24 History release apixaban 5 mg tablet 5 mg PO BID 06/25/24 5 History ascorbic acid (vitamin C) 500 mg 500 mg PO BID 5 07/31/24 History tablet (Vitamin C) atorvastatin 80 mg tablet 80 mg PO QPM 06/25/24 History budesonide-formoterol HFA 160 2 puff inhalation BID 07/31/24 History mcg-4.5 mcg/actuation aerosol inhaler vitamin B complex-vitamin C-folic 1 tab PO QDAY 07/31/24 History acid 0.8 mg tablet (Radha-Halina) furosemide 40 mg tablet (Lasix) 40 mg PO QDAY 07/16/24 07/31/24 History insulin lispro 100 unit/mL See Protocol subcut AC 06/2207/31/24 History subcutaneous pen (Humalog KwikPen (U-100) Insulin) loperamide 2 mg tablet 2 mg PO Q6H PRN Diarrhea 07/31/24 History Allergies Allergy/AdvReac Type Severity Reaction Status Date / Time ketorolac Allergy Severe TONGUE Verified 07/26/23 22:55 SWELLS UP escitalopram Allergy Intermediate Rash Verified 06/28/24 10:52 Visit Medications Dextrose (Dextrose 50%-Water Inj 50 Ml Syringe) 25 ml IV Q15MIN PRN PRN Reason: BG 50-70 responsive npo pt Stop: 08/29/24 12:24 Dextrose (Dextrose 50%-Water Inj 50 Ml Syringe) 50 ml IV Q15MIN PRN PRN Reason: BG <50 OR BG <70 & pt unresponsive Stop: 08/29/24 12:24 Enoxaparin Sodium (Enoxaparin Sod Inj 100 Mg/Ml Syringe) 131 mg 1 mg/kg (131 mg) SC BID RINA Stop: 08/13/24 20:59 Glucagon (Glucagon Inj 1 Mg Vial) 1 mg IM Q15MIN PRN PRN Reason: BG <70, and no IV access Azithromycin 500 mg/ Sodium (Chloride) 250 mls @ 250 mls/hr IV QDAY [facility] Stop: 08/07/24 08:59 Insulin Glargine (Insulin Glargine (Lantus) 5 Unit/0.05 Ml (Per 5 Units)) 20 unit SC HS [facility] Stop: 08/29/24 20:59 Insulin Human Lispro (Insulin Lispro (Admelog) 1 Unit/0.01 Ml Unit) 0 unit SC Q6HR [facility]; Protocol Stop: 08/29/24 17:59 Ondansetron HCl (Ondansetron Inj 2 Mg/Ml Inj 2 Ml) 4 mg IV Q6H PRN; Protocol PRN Reason: NAUSEA OR VOMITING Stop: 08/29/24 12:13 Last Admin: 07/30/24 12:31 Dose: 4 mg Pantoprazole Sodium (Pantoprazole Inj 40 Mg Vial) 40 mg IV QDAY [facility] Stop: 08/30/24 08:59 Discontinued Medications Calcium Gluconate (Calcium Gluconate 10% Inj 1 Gm/10 Ml Vial) 1 gm IV X1 ONE Stop: 07/30/24 10:36 Last Admin: 07/30/24 10:49 Dose: 1 gm Dextrose (Dextrose 50%-Water Inj 50 Ml Syringe) 50 ml IV X1 ONE Stop: 07/30/24 10:36 Last Admin: 07/30/24 10:47 Dose: 50 ml Heparin Sodium (Porcine) (Heparin Sod Inj 5000 Unit/Ml Vial) 5,000 unit SC BID [facility] Stop: 08/13/24 20:59 Heparin Sodium (Porcine) (Heparin Sod Inj 5000 Unit/Ml Vial) 5,000 unit SC TID [facility] Stop: 08/13/24 13:59 Ceftriaxone Sodium 1,000 mg/ (Sodium Chloride) 50 mls @ 100 mls/hr IV X1 ONE Stop: 07/30/24 11:09 Last Infusion: 07/30/24 11:37 Dose: Infused Azithromycin 500 mg/ Sodium (Chloride) 250 mls @ 250 mls/hr IV X1 ONE Stop: 07/30/24 11:38 Last Infusion: 07/30/24 12:09 Dose: Infused Insulin Human Regular (Insulin Hum Regular 1 Unit/0.01 Ml (Per Unit)) 5 unit IV X1 ONE Stop: 07/30/24 10:36 Last Admin: 07/30/24 10:51 Dose: 5 unit Assessment & Plan Plan Mr. Mekhi Fisher is a 54-year-old gentleman with past medical history of HFpEF (EF 55-60% 04/24/2024), coronary artery disease s/p stent 5 years ago, IDDM, CVA, carotid artery stenosis s/p bilateral endarterectomy 2018, pulmonary embolism on ELIQUIS, hypertension, obstructive sleep apnea, cirrhosis, history of vertebral hemangioma s/p radiation therapy who presented to the ED with chief complaint of shortness of breath. #Acute on chronic hypoxic and hypercapnic respiratory failure, baseline 1-2L #Obesity hypoventilation syndrome Due to COPD exacerbation, obesity hypoventilation syndrome versus CHF exacerbation ABG showed hypercapnia, improved with BIPAP - BIPAP, follow up 1pm ABG - Azithromycin - COVID, Flu test - IV Methylprednisolone 40 q day - Duonebs Q6HRRT #Acute metabolic encephalopathy, improving Improved after BIPAP. Continue management for hypercapnia as above. #Hyperkalemia EKG no peak T waves; recieved insulin, D50 in ER - Follow up K+ #ZENY Pre-renal, in the setting of CHF - Restart home bumex - Avoid nephrotoxic agents #History of HFpEF #CAD s/p stent BNP lower than previous admission - Continue home Bumex 2mg IV - Strict I&O - Daily weights - Fluid restrict 1800cc #History of HTN - Holding home coreg, bumex, nifedipine, hydralazine in the setting of soft BP #History of DM2 - Hold home meds - 20HS Glargine + ISS - Follow up A1c #History of duodenal ulcer, gastritis #Chronic normocytic anemia Recent EGD showed duodenal ulcer, gastritis; colonoscopy showed diverticulosis - Protonix #History of PE - Hold home eliquis - Lovenox therapeutic dose Health Maintenance Disposition: Admit to tele for acute hypoxic hypercapnic resp failure, on bipap Diet and fluids: NPO DVT prophylaxis: on lovenox therapeutic GI prophylaxis: protonix Lines: PIV, PEREZ, BIPAP CODE STATUS: FULL I have reviewed and discussed the patient's care with my attending, Dr. Jamilah Walsh MD PGY-3 Attending Provider Attestation/Addendum I, Dianna Askew DO, attest that I was physically present for the kirkpatrick portions of the service and evaluated the patient with the resident and I reviewed and discussed the case with the resident and agree with the resident's findings and plans of care as documented above Patient is a 54-year-old male with past medical history of HFpeF, CAD s/p PCI and stent, OSH, HTN, cirrhosis who was brought to the ED due to worsening somnolence. Patient had recently been admitted hypercapneic encephalopathy and respiratory failure and discharged to SNF. Patient has a history of noncompliance. It was recommended by the nursing staff at the SNF this morning that he should come to the hospital, but patient had refused. Due to increasing somnolence, patient was subsequently brought to the ED. ABG noted to be 7.28/66/103. Patient was subsequently placed on BiPap. Partner is at bedside and states that patient is his normal mental status. Patient will fall asleep in between interview and states that he is sleepy because he does not good rest at SNF. Patient is upset that his sleep keeps getting disrupted. Patient stated that he rather go home. He also does not wish to wear the BiPap due to discomfort. Discussed risk of leaving against medical advice given CO2 retention. Patient ultimately agreed to stay. Will admit to telemetry for further workup and medical management of acute hypercapneic respiratory failure 2/2 acute COPD exacerbation vs CAROLYN. Will start on steroids and azithromycin. Patient does appear fluid overloaded with 2+ b/l LE pitting edema and edema over his eyelids. Will start IV bumex and monitor I's and O's and daily weights.
[2024-07-30] MEDS: ALBUTEROL/IPRATROPIUM (Duoneb) RT SOL 3 ML NEBU INH (13:10)
[2024-07-30 13:11] LABS: Glucose Estimated Average 148 mg/dL (80-131); Hemoglobin A1C 6.8 % Hgb (4.8-6.0)
[2024-07-30 13:23] LABS: Base Excess 4 (-3-3); HCO3 32 mEq/L (20-26); Inspired Oxygen, FIO2 40 %; O2 Saturation 98 % (91-98); PCO2 66 mmHg (32.0-48.0); PO2 98 mmHg (83-108); pH, Arterial 7.29 (7.35-7.45)
[2024-07-30 13:24] LABS: Allen Test Performed/OK; Puncture Site Left Radial
[2024-07-30 13:49] LABS: Anion Gap 2 (7-16); BUN/Creatinine Ratio 29 Ratio (12-20); Blood Urea Nitrogen 41 mg/dL (9-23); Calcium 8.3 mg/dL (8.3-10.6); Carbon Dioxide 26.8 mMol/L (20.0-31.0); Chloride 110 mMol/L (98-107); Creatinine (Component) 1.4 mg/dL (0.6-1.3); Estimated Creatinine Clearance 80.2 mL/min (>60); Glucose 97 mg/dL (74-106); Osmolality,Calculated 287 (275-295); Potassium 5.9 mMol/L (3.4-5.1); Sodium 139 mMol/L (136-145); eGFR 59 See Note
[2024-07-30] MEDS: BUMETANIDE INJ 0.25 MG/ML VIAL 4 ML 2 MG IVP (16:05)
[2024-07-30 16:59] LABS: Base Excess 4 (-3-3); HCO3 32 mEq/L (20-26); O2 Saturation 94 % (91-98); PCO2 62 mmHg (32.0-48.0); PO2 68 mmHg (83-108); pH, Arterial 7.31 (7.35-7.45)
[2024-07-30 17:00] LABS: Inspired Oxygen, FIO2 40 %; Puncture Site Right Radial
[2024-07-30 17:01] LABS: Allen Test Performed/OK
--- NOTE | 2024-07-30 17:37 | PC.NURSE ---
PATIENT LETHARGIC AND SLEEPING. CURRENTLY UNABLE TO TAKE SPS SUSPENSION
[2024-07-30] MEDS: ENOXAPARIN SOD INJ 120 MG/0.8 ML SYRINGE SC (20:42)
[2024-07-30] MEDS: INSULIN GLARGINE (Lantus) 5 UNIT/0.05 ML (PER 5 UNITS) 20 UNIT SC (20:42)
--- NOTE | 2024-07-30 21:20 | PC.NURSE ---
spoke to MD sepulveda about pt demanding that he gets a strong pain pill. MD will look through his chart and if pt cant get anything said he will come talk to the pt
[2024-07-30] MEDS: HYDROcodone/APAP 5/325 TABLET 1 TAB PO (22:45)
[2024-07-30 23:03] LABS: Potassium 5.8 mMol/L (3.4-5.1)
[2024-07-31] VITALS (19 sets, daily range): BP systolic 145–207; BP diastolic 57–115; PULSE 78–103; RESP 16–26; TEMP 36.3–37.2; O2SAT 95–100; BMI 45.1
[2024-07-31] MEDS: INSULIN LISPRO (AdmeLOG) 1 UNIT/0.01 ML UNIT SC ×5 (00:10→20:44)
--- NOTE | 2024-07-31 00:42 | PC.NURSE ---
pt requested to keep off gown
--- NOTE | 2024-07-31 03:11 | PC.NURSE ---
called provider md Viveros, pt refusung BIPAP and nasal cannula. increased confusion. will order blood tests and come evaluate the pt.
[2024-07-31 03:28] LABS: Base Excess 6 (-3-3); HCO3 32 mEq/L (20-26); Inspired Oxygen, FIO2 21 %; O2 Saturation 87 % (91-98); PCO2 56 mmHg (32.0-48.0); pH, Arterial 7.37 (7.35-7.45)
[2024-07-31 03:32] LABS: PO2 52 mmHg (83-108)
[2024-07-31 03:33] LABS: Allen Test Performed/OK; Puncture Site Right Brachial
[2024-07-31] MEDS: MORPHINE SULF INJ 10 MG/ML VIAL 2 MG IVP ×2 (03:37→16:02)
[2024-07-31] MEDS: LORazepam 2 MG/ML VIAL 1 MG IVP (03:37)
--- NOTE | 2024-07-31 03:43 | PC.NURSE ---
MD sepulveda came and assessed pt. new meds ordered and pt is back on bipap. laying in prone position,, which was nonnegotiable with patient.
--- NOTE | 2024-07-31 04:16 | PC.NURSE ---
pt still noncompliant with bipapMD sepulveda at bedside, if pt attempts to take it off again, switch to NC if pt will let us. notify provider if pt is still noncompliant. ordered another ABG for 0700
[2024-07-31 06:11] LABS: Basophils % (Auto) 0 % (0-2.5); Eosinophils % (Auto) 0 % (0-10); Hematocrit 25.4 % (41.0-53.0); Immature Granulocytes % (Auto) 2 % (0-0); Immature Granulocytes Auto 0.17 Thou/mm3 (0.00-0.00); Lymphocytes # (Auto) 0.6 Thou/mm3 (1.0-4.8); Lymphocytes % (Auto) 7 % (10-50); Mean Corpuscular HGB Conc 29.9 g/dl (31.0-37.0); Mean Corpuscular Hemoglobin 26.1 pg (25.0-35.0); Mean Corpuscular Volume 87 fL (80-100); Monocytes # (Auto) 0.6 Thou/mm3 (0.0-0.8); Monocytes % (Auto) 7 % (0-12); Neutrophils # (Auto) 7.7 Thou/mm3 (1.8-7.7); Neutrophils % (Auto) 84 % (37-80); Nucleated Red Blood Cell % 0 /100 WBC (0); Platelet Count 250 Thou/mm3 (140-440); RDW Standard Deviation 52.2 fL (35.1-43.9); Red Blood Count 2.91 Miln/mm3 (4.50-5.90); White Blood Count 9.2 Thou/mm3 (3.8-10.6)
[2024-07-31 06:13] LABS: Hemoglobin 7.6 g/dL (13.5-16.0)
[2024-07-31] MEDS: ALBUTEROL/IPRATROPIUM (Duoneb) RT SOL 3 ML NEBU INH ×3 (06:26→18:10)
--- NOTE | 2024-07-31 06:54 | PC.NURSE ---
Pt. refusing BiPAP and is on Nasal cannula and is satting 87%, pt. refusing to lay on his back. Tried to call to make aware and no answer.
--- NOTE | 2024-07-31 07:10 | PC.NURSE ---
called x3 to medical team with no answer.
--- NOTE | 2024-07-31 07:15 | PC.NURSE ---
Dr. Keller and Dr. Walsh at bedside, called to bedside due to pt. noncompliance with BiPAP and other supplemental oxygen. Pt. demanding pain medications and food. Dr. and pt. agrees on oxymask. Pt. put on telesitter due to noncompliance with oxygen and safety measures.
[2024-07-31 07:38] LABS: Alanine Aminotransferase 16 U/L (10-49); Albumin, Serum 2.9 gm/dL (3.5-5.0); Alkaline Phosphatase 91 U/L (46-116); Anion Gap 1 (7-16); Aspartate Amino Transferase 27 U/L (0-34); BUN/Creatinine Ratio 42 Ratio (12-20); Bilirubin,Total < 0.2 mg/dL (0.3-1.2); Blood Urea Nitrogen 54 mg/dL (9-23); Calcium 8.3 mg/dL (8.3-10.6); Calcium (Corrected) 9.2 mg/dL (8.5-10.1); Carbon Dioxide 30.9 mMol/L (20.0-31.0); Chloride 106 mMol/L (98-107); Creatinine (Component) 1.3 mg/dL (0.6-1.3); Estimated Creatinine Clearance 90.5 mL/min (>60); Glucose 394 mg/dL (74-106); Osmolality,Calculated 306 (275-295); Phosphorous 4.6 mg/dL (2.4-5.1); Potassium 5.6 mMol/L (3.4-5.1); Sodium 138 mMol/L (136-145); Thyroid Stimulating Hormone 0.89 uIU/mL (0.55-4.78); Total Protein 5.9 gm/dL (5.7-8.2); eGFR > 60 See Note
--- NOTE | 2024-07-31 09:06 | PC.NURSE ---
Called to pharmacy azithromycin dose.
[2024-07-31] MEDS: BUMETANIDE INJ 0.25 MG/ML VIAL 4 ML 2 MG IVP ×2 (09:12→15:04)
[2024-07-31] MEDS: PANTOPRAZOLE INJ 40 MG VIAL IV (09:13)
[2024-07-31] MEDS: SOD POLYSTYRENE SULFON SUSP 15 GM/60 ML BTL PO (09:13)
[2024-07-31] MEDS: AZITHROMYCIN INJ 500 MG in SODIUM CHLORIDE 0.9% 250 ML 250 ML 250 MG IV (09:33)
--- NOTE | 2024-07-31 09:40 | PC.NURSE ---
Clarified with Dr. Walsh that Bumex x1 order is conflicting with scheduled bumex already given. Per Dr. Walsh Give this dose later, I will retime it. Dr. menendez pt. wants to speak with them for pain meds.
[2024-07-31] MEDS: HYDROcodone/APAP 5/325 TABLET 1 TAB PO (09:47)
[2024-07-31] MEDS: INSULIN GLARGINE (Lantus) 5 UNIT/0.05 ML (PER 5 UNITS) 10 UNIT SC (09:47)
--- NOTE | 2024-07-31 10:25 | PC.SS ---
Mekhi Smith is a 54-year-old male admitted for Hypercapnia. SS met with patient in order to complete initial assessment and to discuss discharge-planning. Patient reports his life partner Iraida Hécotr [phone] as the pts surrogate decision maker. Patient resides at [facility] and will return at time of discharge. Patient. PCP is Dr. Sue Cevallos. Pt will need [employer] transportation upon Discharge. No further intervention required at this time, medical social consultant would be available to address any further concerns. Surrogate Decision maker, Life partner, Iraida Héctor [phone] Discharge Plan: [facility]
--- NOTE | 2024-07-31 10:57 | ESPR_ITS ---
<Statement entered by Nichelle Walsh MD - 07/31/24 14:39> I discussed with and supervised my co-resident involved in the care of this patient. I agree with the assessment and plan as documented above. Patient seen at bedside. He is lying supine, asking for pain meds and refusing BIPAP. He was saturating at 85% on 10L NC but states he cannot breathe out of his nose. He was placed on Oxymask and eventually titrated down to 4L with adequate SpO2 saturations. He is AAO x 3. Now that he is able to tolerate PO, will restart his home medications including his anti-hypertensives and pain medications. For his edema and hyperkalemia, will give extra dose of Bumex today. His hyperglycemia may be extra high due to the steroids and Wingstop. Will increase his insulin. If patient awake, mentating on 2-3L NC without problem then anticipate discharge back to SNF within the next 24-48 hours. Nichelle Walsh MD PGY-3 Documentation for date of: 07/31/24 Subjective Subjective Interval history: Patient seen at bedside. Per nursing, he is non compliant with BiPAP and asking for pain meds repeatedly. Transitioned to oxy mask due to the non compliance and improvement in ABGs. Currently at 10L saturating 99%. Patient is net negative balance. Will continue to diurese with 2 mg IV Bumex. Continue to hold losartan due to hyperkalemia. Potassium is downtrending, 5.6 this morning. Was given another dose of Kayexalate x 1. Blood sugars poorly controlled ranging above 300. Increased patient's glargine to 30 units at bedtime. Will resume other home meds and start diet. Continue IV methylprednisone 40 mg, azithromycin, DuoNebs for COPD exacerbation. Exam Vital Signs Temp Pulse Resp BP Pulse Ox O2 Del Method O2 Flow Rate 97.4 F 92 17 159/71 H 99 Oxy Mask 8 07/31/24 07:48 07/31/24 09:12 07/31/24 07:48 07/31/24 09:12 07/31/24 07:48 07/31/24 07:48 07/31/24 07:48 FiO2 40 07/31/24 06:28 Narrative Exam General: obeses middle age male, No acute distress HEENT: NCAT, No JVD noted. Cardiovascular: Normal S1 and S2. Regular rate and rhythm. Respiratory: Mild wheezing upper lobes, on 10L oxy mask Abdomen: Soft, nontender, not distended, normal bowel sounds. Skin: Warm to touch, dry, no rashes noted Musculoskeletal: No gross injuries. Able to move all 4 extremities.+2 pitting edema Neuro: Alert and oriented x3. No focal neuro deficits. Psych: Normal affect and mood Objective Labs 07/31/24 05:15 07/31/24 05:15 Labs: Laboratory Results - last 24 hr 07/30/24 07/30/24 07/30/24 09:04 11:26 13:15 WBC RBC Hgb Hct MCV MCH MCHC RDW Std Deviation Plt Count Neut % (Auto) Lymph % (Auto) Bonner % (Auto) Eos % (Auto) Baso % (Auto) Neut # (Auto) Lymph # (Auto) Bonner # (Auto) Eos # (Auto) Baso # (Auto) Immature Gran # (Auto) Absolute Nucleated RBC Immature Gran % Nucleated RBC % Puncture Site Right Radial ABG pH 7.31 L ABG pCO2 60 H ABG pO2 156 H D ABG HCO3 30 H ABG O2 Saturation 100 H ABG Base Excess 3 FiO2 40 Sodium 139 Potassium 5.9 H Chloride 110 H Carbon Dioxide 26.8 Anion Gap 2 L BUN 41 H Creatinine 1.4 H Estim Creat Clear Calc 80.2 eGFR 59 L BUN/Creatinine Ratio [address] Glu mg/dL 148 H Hemoglobin A1c 6.8 H Calculated Osmolality 287 Calcium 8.3 Corrected Calcium Phosphorus Magnesium Total Bilirubin AST ALT Alkaline Phosphatase Total Protein Albumin Globulin Albumin/Globulin Ratio TSH 07/30/24 07/30/24 07/30/24 13:18 16:56 22:32 WBC RBC Hgb Hct MCV MCH MCHC RDW Std Deviation Plt Count Neut % (Auto) Lymph % (Auto) Bonner % (Auto) Eos % (Auto) Baso % (Auto) Neut # (Auto) Lymph # (Auto) Bonner # (Auto) Eos # (Auto) Baso # (Auto) Immature Gran # (Auto) Absolute Nucleated RBC Immature Gran % Nucleated RBC % Puncture Site Left Radial Right Radial ABG pH 7.29 L 7.31 L ABG pCO2 66 H 62 H ABG pO2 98 D 68 L D ABG HCO3 32 H 32 H ABG O2 Saturation 98 94 ABG Base Excess 4 H 4 H FiO2 40 40 Sodium Potassium 5.8 H Chloride Carbon Dioxide Anion Gap BUN Creatinine Estim Creat Clear Calc eGFR BUN/Creatinine Ratio Glucose Estimated Ave Glu mg/dL Hemoglobin A1c Calculated Osmolality Calcium Corrected Calcium Phosphorus Magnesium Total Bilirubin AST ALT Alkaline Phosphatase Total Protein Albumin Globulin Albumin/Globulin Ratio TSH 07/31/24 07/31/24 03:20 05:15 WBC 9.2 RBC 2.91 L Hgb 7.6 L Hct 25.4 L MCV 87 MCH 26.1 MCHC 29.9 L RDW Std Deviation 52.2 H Plt Count 250 Neut % (Auto) 84 H Lymph % (Auto) 7 L Bonner % (Auto) 7 Eos % (Auto) 0 Baso % (Auto) 0 Neut # (Auto) 7.7 Lymph # (Auto) 0.6 L Bonner # (Auto) 0.6 Eos # (Auto) 0.0 Baso # (Auto) 0.0 Immature Gran # (Auto) 0.17 H Absolute Nucleated RBC 0.00 Immature Gran % 2 H Nucleated RBC % 0 Puncture Site Right Brachial ABG pH 7.37 ABG pCO2 56 H ABG pO2 52 L* ABG HCO3 32 H ABG O2 Saturation 87 L ABG Base Excess 6 H FiO2 21 Sodium 138 Potassium 5.6 H Chloride 106 Carbon Dioxide 30.9 Anion Gap 1 L BUN 54 H Creatinine 1.3 Estim Creat Clear Calc 90.5 eGFR > 60 BUN/Creatinine Ratio 42 H Glucose [address] Glu mg/dL Hemoglobin A1c Calculated Osmolality 306 H Calcium 8.3 Corrected Calcium 9.2 Phosphorus 4.6 Magnesium 2.0 Total Bilirubin < 0.2 L AST 27 ALT 16 Alkaline Phosphatase 91 Total Protein 5.9 Albumin 2.9 L Globulin 3.0 Albumin/Globulin Ratio 1.0 L TSH 0.89 ABG Interpretation ABG results: 07/30/24 07/30/24 07/30/24 09:00 10:08 11:26 ABG pH 7.31 L 7.28 L 7.31 L ABG pCO2 59 H 66 H 60 H ABG pO2 144 H 103 D 156 H D ABG HCO3 30 H 31 H 30 H ABG O2 Saturation 100 H 98 100 H ABG Base Excess 3 3 3 07/30/24 07/30/24 07/31/24 13:18 16:56 03:20 ABG pH 7.29 L 7.31 L 7.37 ABG pCO2 66 H 62 H 56 H ABG pO2 98 D 68 L D 52 L* ABG HCO3 32 H 32 H 32 H ABG O2 Saturation 98 94 87 L ABG Base Excess 4 H 4 H 6 H Quality Measures Quality Measures none Assessment & Plan Assessment Current Active Medications: Generic Name Dose Route Start Last Admin Trade Name Freq PRN Reason Stop Dose Admin Hydrocodone Bitart/Acetaminophen 1 tab 07/31/24 10:38 Hydrocodone/Apap 10/325 Tab PO 08/05/24 10:37 Q4HR PRN Pain 4-6 Albuterol/Ipratropium 3 ml 07/30/24 13:00 07/31/24 07:40 Albuterol/Ipratropium (Duoneb) Rt Radha 3 Ml Nebu INH 08/29/24 12:59 Not Given Q6HRRT RINA Apixaban 5 mg 07/31/24 10:45 Apixaban 2.5 Mg Tablet PO 08/21/24 10:44 BID RINA Atorvastatin Calcium 80 mg 07/31/24 21:00 Atorvastatin Calcium 20 Mg Tablet PO 08/30/24 20:59 HS RINA Bumetanide 2 mg 07/31/24 09:00 07/31/24 09:12 Bumetanide Inj 0.25 Mg/Ml Vial 4 Ml IVP 08/30/24 08:59 2 mg QDAY RINA Administration Bumetanide 2 mg 07/31/24 15:00 Bumetanide Inj 0.25 Mg/Ml Vial 4 Ml IVP 07/31/24 15:01 X1 ONE Carvedilol 6.25 mg 07/31/24 17:30 Carvedilol 3.125 Mg Tablet PO 08/30/24 17:29 BIDWM RINA Dextrose 25 ml 07/30/24 12:25 Dextrose 50%-Water Inj 50 Ml Syringe IV 08/29/24 12:24 Q15MIN PRN BG 50-70 responsive npo pt Dextrose 50 ml 07/30/24 12:25 Dextrose 50%-Water Inj 50 Ml Syringe IV 08/29/24 12:24 Q15MIN PRN BG <50 OR BG <70 & pt unresponsive Glucagon 1 mg 07/30/24 12:25 Glucagon Inj 1 Mg Vial IM Q15MIN PRN BG <70, and no IV access Azithromycin 500 mg/ Sodium 250 mls @ 250 mls/hr 07/31/24 09:00 07/31/24 09:33 Chloride IV 08/07/24 08:59 250 mls/hr QDAY RINA Administration Insulin Glargine 30 unit 07/31/24 21:00 Insulin Glargine (Lantus) 5 Unit/0.05 Ml (Per 5 Units) SC 08/29/24 20:59 HS RINA Insulin Human Lispro 0 unit 07/31/24 11:30 Insulin Lispro (Admelog) 1 Unit/0.01 Ml Unit SC 08/30/24 11:29 AC RINA Protocol Losartan Potassium 50 mg 07/31/24 10:45 Losartan Potassium 25 Mg Tablet PO 08/30/24 10:44 QDAY IRNA Methylprednisolone Sodium Succinate 40 mg 07/30/24 13:15 07/31/24 09:13 Methylprednisolone Sod Succ 40 Mg Vial IVP 08/06/24 13:14 40 mg QDAY RINA Administration Morphine Sulfate 15 mg 07/31/24 10:38 Morphine Sulf 15 Mg Tabcr PO 08/05/24 10:44 QDAY PRN PAIN 7-10 Protocol Ondansetron HCl 4 mg 07/30/24 12:14 07/30/24 12:31 Ondansetron Inj 2 Mg/Ml Inj 2 Ml IV 08/29/24 12:13 4 mg Q6H PRN Administration NAUSEA OR VOMITING Protocol Pantoprazole Sodium 40 mg 07/31/24 09:00 07/31/24 09:13 Pantoprazole Inj 40 Mg Vial IV 08/30/24 08:59 40 mg QDAY RINA Administration Plan Mekhi StewartMina Fisher is a 54-year-old male with past medical history of HFpEF (EF 55-60% 04/24/2024), coronary artery disease s/p stent 5 years ago, IDDM, CVA, carotid artery stenosis s/p bilateral endarterectomy 2018, pulmonary embolism on ELIQUIS, hypertension, obstructive sleep apnea, cirrhosis, history of vertebral hemangioma s/p radiation therapy who presented to the ED with chief complaint of shortness of breath and altered mental status. He was admitted for AHRF due to CAROLYN, COPD exacerbation, management of AMS. #Acute on chronic hypoxic and hypercapnic respiratory failure, baseline 1-2L #CAROLYN Due to COPD exacerbation, obesity hypoventilation syndrome versus CHF exacerbation ABG showed hypercapnia, improved with BIPAP pH 7.28, pCO2 66. CMP bicarb 30. COVID, Flu test negative -Repeat ABGs did improve. Patient was transitioned to oxy mask due to noncompliance on BiPAP. -continue to titrate o2 with goal 2-3L - Azithromycin 500 daily for 5 days (until 08/04) - IV Methylprednisolone 40 q day - Duonebs Q6HRRT #Acute encephalopathy-resolved Initially presented with altered mental status. Likely due to metabolic causes of the respiratory acidosis. Patient also has strong history of taking pain medications. Acute encephalopathy also be due to narcotics use. Improved after BIPAP. Continue management for hypercapnia as above. #Hyperkalemia?resolving EKG no peak T waves; recieved insulin, D50 in ER Potassium is downtrending with most recent lab 5.6 -Daily CMP -Kayexalate x 1 #ZENY-resolving BUN/creatinine ratio greater than 20 indicating prerenal cause. Most likely due to CHF exacerbation - Restart home bumex - Avoid nephrotoxic agents -Gotten should start improving with resuming diuresis -Monitor I/O's #History of HFpEF #CAD s/p stent #Acute CHF exacerbation BNP mildly elevated 122. Chest x-ray showing moderate CHF. - Continue home Bumex 2mg IV -Resumed home medication carvedilol 6.25 mg twice daily - Strict I&O - Daily weights - Fluid restrict 1800cc #History of HTN -Resume home coreg 6.25 mg twice daily, bumex 2 mg IV daily, nifedipine 30 PO BID, hydralazine 100 PO TID in the setting of soft BP #History of type 2 diabetes On admission initial glucose 124. Last A1c 13.6 on 05/11/2024. 6.8 on this admission. Patient takes the units insulin, 2.5 mg tirzepatide for diabetes at home. -Held home medications -Bedside blood glucose checks ACHS -Insulin lispro sliding scale _, adjusted as necessary -Carb consistent low diet -Increase glargine to 30 units #History of duodenal ulcer, gastritis #Chronic normocytic anemia Recent EGD showed duodenal ulcer, gastritis; colonoscopy showed diverticulosis - Protonix #History of PE - Eliquis 5mg PO BID - Lovenox therapeutic dose #Chronic neck/back pain Patient takes Boyd 10 every 4 hours and morphine 15 mg daily for pain due to hx of vertebral hemangioma s/p radiation therapy -resume Boyd 10 Health Maintenance Disposition: tele for acute hypoxic hypercapnic resp failure Diet and fluids: CHO, low sodium diet DVT prophylaxis: on lovenox therapeutic GI prophylaxis: protonix CODE STATUS: FULL The patient's management plan was discussed with my attending physician Dr. Askew and senior Dr. Walsh. Luz Marina Keller, PGY-1 Attending Provider Attestation/Addendum IDianna, DO, attest that I was physically present for the kirkpatrick portions of the service and evaluated the patient with the resident and I reviewed and discussed the case with the resident and agree with the resident's findings and plans of care as documented above Patient seen and evaluated this AM. Patient did not want to wear the BiPap this morning and on 4.5L oxymask at time of evaluation. Patient continue to have edema in b/l LE and facial edema that appears improved. Patient stating that he prefers IV pain medicine since he is here in the hospital. Explained to patient the fear of worsening of CO2 retention with opioids. Will resume home meds only at this time. Will increase insulin due to hyperglycemia with steroid use. If paitent is able to maintain 2L/NC overnight, anticipate DC back to SNF.
[2024-07-31] MEDS: METOCLOPRAMIDE 5 MG TABLET PO ×2 (11:28→23:00)
[2024-07-31] MEDS: APIXABAN 2.5 MG TABLET 5 MG PO ×2 (11:28→20:29)
[2024-07-31] MEDS: VIT B12/Vit C/FA (Nephrovite) TABLET 1 TAB PO (11:28)
[2024-07-31] MEDS: hydrALAZINE HCL 25 MG TABLET 100 MG PO ×2 (12:15→21:45)
[2024-07-31] MEDS: PREGABALIN 75 MG CAPSULE 150 MG PO ×2 (12:16→21:56)
--- NOTE | 2024-07-31 13:31 | PC.NURSE ---
Pt. is calling girlfriend and stating that they are not putting me on the bed valdivia. Pt. has been advised by Monik MATOS and Shaina BARRON to call engineering production worker light when needing to have a bowel movement. Pt. girlfriend began to yell and curse at staff over the phone, girlfriend was asked not to speak in such a way to staff. Pt. was once again told to call for help and bedpan will be provided, however, pt. continues to have bowel movement and not call for help before. Pt. is AOX4 and demonstrates how to use call light properly.
--- NOTE | 2024-07-31 13:51 | PC.NURSE ---
Pt. is calling friends and asking them to bring him food and drinks he cannot have due to diet order/restrictions. Pt. and friends/family educated on this matter; however, pt. continues to be noncompliant and ignore instruction and education.
--- NOTE | 2024-07-31 14:35 | PC.SS ---
KENNEDI contacted Jaquelin from [facility] and informed her that patient would be discharging tomorrow and if authorization needed to be obtained. Jaquelin reported patient would not need auth if it's within the 7 days.
[2024-07-31] MEDS: carVEDILOL 3.125 MG TABLET 6.25 MG PO (16:54)
--- NOTE | 2024-07-31 17:34 | PC.NURSE ---
Upon initial assessment pt. blood glucose was 488. Pt. admitted that he asked a family member to bring him crackers. Pt. admits to eating the entire box. Dr. Keller aware of glucose and pt. provided insulin coverage per sliding scale orders. Second glucose test read blood glucose at 454. Dr. Keller aware and states I will enter a x1 insulin dose. aware that stat serum glucose draw was ordered per protocol and is pending results. Per Provider okay to restrict visitors at this time. Family (pt. daughter) agrees to restricted visitors as pt. continues to ask for foods that are agains doctors orders due to pt. diagnosis of diabetes. Pt. was also heard calling his girlfriend and asking for a vape on more than one occasion as reported by Monik MATOS and pt. daughter at bedside. Visitors are bringing items that are harmful to the patient, despite education to patient and family.
--- NOTE | 2024-07-31 17:48 | PC.NURSE ---
Called back to Dr. Keller about need for more insulin due to BG 454. Per Dr. Josh Askew said to wait until 2100 glucose check. no further orders at this time.
[2024-07-31 18:03] LABS: Glucose 536 mg/dL (74-106)
[2024-07-31] MEDS: INSULIN HUM REGULAR 1 UNIT/0.01 ML (PER UNIT) 15 UNIT IV (18:12)
[2024-07-31] MEDS: ASCORBIC ACID 250 MG TABLET 500 MG PO (20:28)
[2024-07-31] MEDS: ATORVASTATIN CALCIUM 20 MG TABLET 80 MG PO (20:29)
[2024-07-31] MEDS: Morphine Sulf 15 MG TABCR PO (20:29)
[2024-07-31] MEDS: NIFEdipine XL 30 MG TABCR PO (20:30)
[2024-07-31] MEDS: INSULIN GLARGINE (Lantus) 5 UNIT/0.05 ML (PER 5 UNITS) 20 UNIT SC (20:45)
[2024-07-31] MEDS: hydrOXYzine HCL 25 MG TABLET 50 MG PO (20:53)
[2024-07-31] MEDS: INSULIN LISPRO (AdmeLOG) 1 UNIT/0.01 ML UNIT 5 UNIT SC (22:47)
[2024-07-31] MEDS: HYDROcodone/APAP 10/325 TAB PO (22:49)
[2024-08-01] VITALS (18 sets, daily range): BP systolic 140–205; BP diastolic 75–122; PULSE 72–111; RESP 18–26; TEMP 35.9–37.6; O2SAT 95–99; BMI 48.9
[2024-08-01] MEDS: hydrALAZINE INJ 20 MG/ML VIAL 10 MG IV ×2 (00:42→06:15)
[2024-08-01] MEDS: ALBUTEROL/IPRATROPIUM (Duoneb) RT SOL 3 ML NEBU INH ×3 (01:00→12:31)
[2024-08-01] MEDS: ALPRazoLAM 0.25 MG TABLET 0.5 MG PO (01:43)
[2024-08-01] MEDS: DiphenhydrAMINE ELIX 25 MG/10 ML UDC 12.5 MG PO (01:43)
[2024-08-01] MEDS: HYDROcodone/APAP 5/325 TABLET 1 TAB PO (01:46)
[2024-08-01] MEDS: HYDROcodone/APAP 10/325 TAB PO ×2 (02:20→09:25)
[2024-08-01 05:36] LABS: Basophils % (Auto) 0 % (0-2.5); Eosinophils % (Auto) 0 % (0-10); Hematocrit 24.7 % (41.0-53.0); Immature Granulocytes % (Auto) 1 % (0-0); Immature Granulocytes Auto 0.12 Thou/mm3 (0.00-0.00); Lymphocytes # (Auto) 1.3 Thou/mm3 (1.0-4.8); Lymphocytes % (Auto) 14 % (10-50); Mean Corpuscular HGB Conc 30.8 g/dl (31.0-37.0); Mean Corpuscular Hemoglobin 26.5 pg (25.0-35.0); Mean Corpuscular Volume 86 fL (80-100); Monocytes # (Auto) 1.7 Thou/mm3 (0.0-0.8); Monocytes % (Auto) 18 % (0-12); Neutrophils # (Auto) 6.5 Thou/mm3 (1.8-7.7); Neutrophils % (Auto) 67 % (37-80); Nucleated Red Blood Cell % 0 /100 WBC (0); Platelet Count 226 Thou/mm3 (140-440); RDW Standard Deviation 50.7 fL (35.1-43.9); Red Blood Count 2.87 Miln/mm3 (4.50-5.90); White Blood Count 9.7 Thou/mm3 (3.8-10.6)
[2024-08-01] MEDS: hydrALAZINE HCL 25 MG TABLET 100 MG PO ×2 (05:38→14:22)
[2024-08-01] MEDS: PREGABALIN 75 MG CAPSULE 150 MG PO ×2 (05:38→14:22)
[2024-08-01 05:41] LABS: Hemoglobin 7.6 g/dL (13.5-16.0)
[2024-08-01] MEDS: METOCLOPRAMIDE 5 MG TABLET PO ×2 (05:41→11:26)
[2024-08-01 06:34] LABS: Alanine Aminotransferase 14 U/L (10-49); Albumin, Serum 3.2 gm/dL (3.5-5.0); Albumin/Globulin Ratio 1.1 (1.2-2.2); Alkaline Phosphatase 80 U/L (46-116); Anion Gap 5 (7-16); Aspartate Amino Transferase 21 U/L (0-34); BUN/Creatinine Ratio 40 Ratio (12-20); Bilirubin,Total < 0.2 mg/dL (0.3-1.2); Blood Urea Nitrogen 52 mg/dL (9-23); Calcium 8.6 mg/dL (8.3-10.6); Calcium (Corrected) 9.2 mg/dL (8.5-10.1); Carbon Dioxide 29.4 mMol/L (20.0-31.0); Chloride 104 mMol/L (98-107); Creatinine (Component) 1.3 mg/dL (0.6-1.3); Estimated Creatinine Clearance 94.8 mL/min (>60); Glucose 400 mg/dL (74-106); Magnesium 1.9 mg/dL (1.6-2.6); Osmolality,Calculated 306 (275-295); Phosphorous 4.1 mg/dL (2.4-5.1); Sodium 138 mMol/L (136-145); Total Protein 6.2 gm/dL (5.7-8.2); eGFR > 60 See Note
[2024-08-01] MEDS: INSULIN LISPRO (AdmeLOG) 1 UNIT/0.01 ML UNIT SC ×2 (07:42→11:26)
[2024-08-01] MEDS: PANTOPRAZOLE INJ 40 MG VIAL IV (09:08)
[2024-08-01] MEDS: AZITHROMYCIN INJ 500 MG in SODIUM CHLORIDE 0.9% 250 ML 250 ML 250 MG IV (09:08)
[2024-08-01] MEDS: INSULIN GLARGINE (Lantus) 5 UNIT/0.05 ML (PER 5 UNITS) 20 UNIT SC (09:10)
[2024-08-01] MEDS: APIXABAN 2.5 MG TABLET 5 MG PO (09:11)
[2024-08-01] MEDS: carVEDILOL 3.125 MG TABLET 6.25 MG PO (09:11)
[2024-08-01] MEDS: ASCORBIC ACID 250 MG TABLET 500 MG PO (09:12)
[2024-08-01] MEDS: NIFEdipine XL 30 MG TABCR PO (09:13)
[2024-08-01] MEDS: VIT B12/Vit C/FA (Nephrovite) TABLET 1 TAB PO (09:17)
--- NOTE | 2024-08-01 09:47 | PC.SS ---
Pt was identified as a DC today back to [facility]. SS reached out top Jaquelin who stated to send updated clinicals and keep her posted on ETA. Pt currently does not have DC orders. Once [facility] orders are in we will set up transport.
--- NOTE | 2024-08-01 10:43 | PC.SS ---
Addendum entered by Cheryl Link 08/01/24 14:32: SS was contacted by Olivia from [facility], ETA will be for 1700. SS updated patient's nurse, Tomeka and patient as well. SS contacted Jaquelin from [facility] as well. Original Note: SS follow up note; SS set up transportation with [facility], Reference # [id number].
--- NOTE | 2024-08-01 10:43 | PC.SS ---
108SS follow up note; set up transportation with [facility], Reference # [id number].
--- NOTE | 2024-08-01 12:35 | ESDS_ITS ---
<Statement entered by Dianna Askew DO - 08/01/24 18:45> I, Dianna Askew DO, attest that I was physically present for the kirkpatrick portions of the service and evaluated the patient with the resident and I reviewed and discussed the case with the resident and agree with the resident's findings and plans of care as documented above Planned Discharge Date 08/01/24 DS: Providers Provider Date of admission: 07/30/24 12:14 Primary care physician: Physician No Primary/Family Admitting Provider: Dianna Askew DO Attending Provider on Admission: Dianna Askew DO Consults: 07/31/24 08:53 Referral Wound Care Routine Comment: 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 07/31/24 15:37 Referral Nutritional Services Routine Comment: wounds Attending Provider on DC: Luz Marina Keller MD Discharging Provider: Luz Marina Keller MD DS: Diagnosis Problem List Completed Was Problem List Reviewed/Reconciled?: Yes Hospital Course Hospital Course Hospital course: Reason for hospitalization: AHHRF, Acute encephalopathy Mekhi Smith is 54 yr male with PMH of HFpEF(EF 55-60% 04/24/2024), coronary artery disease s/p stent 5 years ago, IDDM, CVA, carotid artery stenosis s/p bilateral endarterectomy 2018, pulmonary embolism on ELIQUIS, hypertension, obstructive sleep apnea, cirrhosis, history of vertebral hemangioma s/p radiation therapy and recurrent hospitalzitions who presented to [facility] from SNF on 07/30/24 due to altered mental status and dyspnea. Patient was recently discharged on 07/25 after similar symptoms of respiratory failure. He was admitted for acute on chronic hypoxic hypercapnic resp failure, COPD exacerbation, and acute encephalopathy. He was started on BiPAP and transitioned to oxymask the next day. Patient has history of noncompliance and so unsure if he uses CPAP machine outside of nursing facility. During admission, patient refused a lot of home medications including few doses of diuretics and Eliquis. He was requesting IV pain meds often. Blood sugars were ranging 400-500 due to family bringing in outside food such as crackers, burgers, and Wingstop. Insulin was adjusted accordingly and family was counseled. His mental status improved and hyperkalemia (6.0) resolved. Patient was treated for COPD exacerbation with prednisone, azithromycin, and duonebs. Oxygen requirements improved and patient was at baseline. He is now in stable condition and ready for discharge. Recommendations were given as below. Discharge Recommendations: Increase Carvedilol dose to 6.25 mg BID. Hold Lasix 40 mg daily until you follow up with PCP for repeat labs. Continue all other home medications. Follow up with PCP in 1 week for repeat labs and resuming Lasix if kidney function improves. Hospital Diagnoses: #Acute on chronic hypoxic and hypercapnic respiratory failure, baseline 1-2L #CAROLYN #Acute encephalopathy-resolved #Hyperkalemia?resolving #ZENY-resolving #Medication noncompliance #History of HFpEF #CAD s/p stent #Acute CHF exacerbation #History of HTN #History of type 2 diabetes #History of duodenal ulcer, gastritis #Chronic normocytic anemia #History of PE #Chronic neck/back pain #Opioid use dependence The patient's management plan was discussed with my attending physician Dr. Askew and senior Dr. Walsh. Luz Marina Keller MD, PGY-1 Time Spent with Patient Time attestation: Total time spent providing and/or coordinating discharge services: Time spent: Greater than 30 minutes Exam Vital Signs Temp Pulse Resp BP Pulse Ox O2 Del Method O2 Flow Rate 97.5 F 78 20 148/75 H 99 Nasal Cannula 2 08/01/24 08:00 08/01/24 12:33 08/01/24 12:33 08/01/24 12:10 08/01/24 12:33 08/01/24 08:00 08/01/24 12:33 FiO2 40 07/31/24 12:00 Narrative Exam General: obese middle age male, un cooperative HEENT: NCAT, No JVD noted, facial edema Cardiovascular: Normal S1 and S2. Regular rate and rhythm. Respiratory: No wheezing or crackles, on 2L NC Abdomen: Soft, nontender, not distended, normal bowel sounds. Skin: Warm to touch, dry, no rashes noted Musculoskeletal: No gross injuries. Able to move all 4 extremities.+2 pitting edema Neuro: Alert and oriented x3. No focal neuro deficits. Psych: Normal affect and mood Discharge Plan Plan Patient Disposition: Xfer Skilled Nsg Fac (SNF) Patient condition on transfer: Stable Prescriptions/Referrals Prescriptions/Med Rec: New carvedilol 6.25 mg tablet 6.25 mg PO BIDWM 30 Days Qty: 30 0RF Continued hydrocodone-acetaminophen 10-325 mg tablet 1 tab PO Q4H PRN (Reason: Pain, Moderate) pregabalin 150 mg capsule 150 mg PO TID sennosides [senna] 8.6 mg tablet 8.6 mg PO BID PRN (Reason: constipation) Qty: 30 0RF morphine 15 mg tablet extended release 15 mg PO QDAY PRN (Reason: Pain, Severe) metoclopramide HCl 5 mg tablet 5 mg PO Q6H 30 Days Qty: 120 3RF atorvastatin 80 mg Tablet 80 mg PO QPM ascorbic acid (vitamin C) [Vitamin C] 500 mg Tablet 500 mg PO BID Sapphire-Holly 0.8 mg Tablet 1 tab PO QDAY budesonide-formoterol 160-4.5 mcg/actuation Hfa Aerosol Inhaler 2 puff INHALATION BID apixaban 5 mg Tablet 5 mg PO BID insulin detemir U-100 100 unit/mL (3 mL) Insulin Pen 30 unit SUBCUT BID Qty: 15 0RF loperamide 2 mg Tablet 2 mg PO Q6H PRN (Reason: Diarrhea) insulin lispro [Humalog KwikPen Insulin] 100 unit/mL insulin pen See Protocol SUBCUT AC Protocol: Insulin Corrective High-Dose Regimen Condition: Fingerstick Blood Glucose Dose/Route: Insulin Units Condition: 141-180 mg/dl Dose/Route: 6 units/SQ Condition: 181-220 mg/dl Dose/Route: 8 units/SQ Condition: 221-260 mg/dl Dose/Route: 10 units/SQ Condition: 261-300 mg/dl Dose/Route: 12 units/SQ Condition: 301-350 mg/dl Dose/Route: 14 units/SQ Condition: 351-400 mg/dl Dose/Route: 16 units/SQ Condition: greater than 400 mg/dl Dose/Route: 18 units/SQ Zepbound 2.5 mg/0.5 mL pen injector 2.5 mg subcut QWEEK Qty: 2 2RF Rx Instructions: Please double the dose every 2 weeks as tolerated until maximum dose of 10mg/Week. bumetanide 2 mg tablet 2 mg PO BID 30 Days Qty: 60 0RF hydralazine 100 mg tablet 100 mg PO TID 30 Days Qty: 90 0RF Changed nifedipine 30 mg tablet extended release 30 mg PO QDAY 30 Days Qty: 30 0RF Held losartan 50 mg tablet 50 mg PO QDAY Qty: 30 0RF Hold Instructions: Resume on 08/08/24. Follow up with PCP for potassium level before restarting Discontinued furosemide [Lasix] 40 mg Tablet 40 mg PO QDAY carvedilol 3.125 mg Tablet 6.25 mg PO BIDWM Qty: 60 0RF Referrals: No Primary/Family,Physician [Primary Care Provider] - Patient/Caregiver Discharge Instructions Other Discharge Activity Instructions:: Increase Carvedilol dose to 6.25 mg BID. Hold Lasix 40 mg daily until you follow up with PCP for repeat labs. Continue all other home medications. Follow up with PCP in 1 week for repeat labs and resuming Lasix if kidney function improves. Education Materials: ED Heart Failure, Congestive (CHF) Print Language: Lithuanian Stand Alone Forms: Racquel Award Info., Patient Portal Info Letter Discharge Order Discharge Orders: Discharge (Routine); Ordered 08/01/24 Ordered By: Luz Marina Keller Quality Discharge Quality Measures VTE prophylaxis
== END 2024-08-01 17:03 | disposition skilled nursing facility (03) | DRG 133 ==
LOC: SERX 12:22 → SERHOLD 12:51 → S2NX 20:06
PROVIDERS: Student in an Organized Health Care Education/Training Program; Admitting Provider Internal Medicine; Emergency Provider Emergency Medicine; Visit Provider Internal Medicine
DX: J96.22 Acute and chronic respiratory failure with hypercapnia (principal); J96.21 Acute and chronic respiratory failure with hypoxia; J44.1 Chronic obstructive pulmonary disease with (acute) exacerbation; E11.65 Type 2 diabetes mellitus with hyperglycemia; I50.33 Acute on chronic diastolic (congestive) heart failure; E87.29 Other acidosis; E87.5 Hyperkalemia; N17.9 Acute kidney failure, unspecified; G93.41 Metabolic encephalopathy; D64.9 Anemia, unspecified; I11.0 Hypertensive heart disease with heart failure; I25.10 Atherosclerotic heart disease of native coronary artery without angina pectoris; K74.60 Unspecified cirrhosis of liver; G89.29 Other chronic pain; M54.2 Cervicalgia; M54.9 Dorsalgia, unspecified; E66.2 Morbid (severe) obesity with alveolar hypoventilation; F11.20 Opioid dependence, uncomplicated; Z68.42 Body mass index [BMI] 45.0-49.9, adult; F17.210 Nicotine dependence, cigarettes, uncomplicated; Z86.73 Personal history of transient ischemic attack (TIA), and cerebral infarction without residual deficits; Z86.711 Personal history of pulmonary embolism; Z87.11 Personal history of peptic ulcer disease; Z87.19 Personal history of other diseases of the digestive system; Z91.199 Patient's noncompliance with other medical treatment and regimen due to unspecified reason; Z92.3 Personal history of irradiation; Z95.5 Presence of coronary angioplasty implant and graft; Z99.3 Dependence on wheelchair; Z79.01 Long term (current) use of anticoagulants; Z79.4 Long term (current) use of insulin; Z79.899 Other long term (current) drug therapy
CPT/HCPCS: 36415; 36600; 71045; 80048; 80053; 82803; 82947; 83036; 83605; 83690; 83735; 83880; 84100; 84132; 84145; 84443; 84484; 85025; 85610; 85730; 87040; 87081; 87400; 87502; 87811; 93005; 94640; 94660; 96365; 96375; 99291; A9270; J0360; J0456; J0612; J0696; J1650; J1815; J2060; J2270; J2405; J2470; J2919; J3490; J7050

== ENCOUNTER 2024-08-06 19:23 | Inpatient (IN) | payer MEDICAID, SELFPAY ==
--- NOTE | 2024-08-06 19:28 | EKG_ITS ---
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
--- NOTE | 2024-08-06 19:28 | XR_ITS ---
Examination: CT brain head without contrast. 2-D sagittal coronal reconstructions Date and time of exam:August 06, 20242018 hrs. Indications: Altered mental status today CTDI: vol (mGy):19.7 DLP: (mGycm):1988 Technique: Multiple CT axial sections of the brain have been obtained, 5 mm slice thickness. Contrast has not been administered. 2-D sagittal, coronal reconstructions have been obtained Low dose protocols were performed. One or more of the following dose reduction techniques were used; automated exposure control, adjustment of the mA and/or KV according to patient size, use of iterative reconstruction technique. Findings: No significant ventricular enlargement. Intra-axial or extra-axial hemorrhage density is not seen. No mass effect or midline shift Basal cisterns are not remarkable. Fourth ventricle is midline. Cranial vault intact. Impression: Negative for acute hemorrhage, mass effect or midline shift Advise clinical correlation and follow-up accordingly
--- NOTE | 2024-08-06 19:29 | PD.EDADULT ---
ED General RME/HPI General Chief complaint: Shortness of Breath/Dyspnea Stated complaint: ALTERED Time Seen by Provider: 08/06/24 19:28 Arrival date/time: 08/06/24 19:23 CC: Altered mental status HPI patient presents from the assisted care facility via EMS who report seeing him this morning for the same complaint at the time the patient was awake alert oriented and refused transport, EMS was called back this evening at 1900, patient was then altered. Patient is responding to verbal stimulation with simple questions yes no but falls asleep promptly after 2 or 3 words. The patient did not keep a simple mask on throughout the transport patient is allowed to keep nasal cannula on. Patient is morbidly obese currently the patient denies any pain. Related Data Home Medications ?Medication ?Instructions ?Recorded ?Confirmed hydrocodone 10 mg-acetaminophen 1 tab PO Q4H PRN Pain, Moderate 10/22/23 07/31/24 325 mg tablet pregabalin 150 mg capsule 150 mg PO TID 10/22/23 07/31/24 morphine 15 mg tablet,extended 15 mg PO QDAY PRN Pain, Severe 01/14/24 07/31/24 release apixaban 5 mg tablet 5 mg PO BID 06/25/24 07/31/24 ascorbic acid (vitamin C) 500 mg 500 mg PO BID 06/25/24 07/31/24 tablet (Vitamin C) atorvastatin 80 mg tablet 80 mg PO QPM 06/25/24 07/31/24 budesonide-formoterol HFA 160 2 puff inhalation BID 06/25/24 07/31/24 mcg-4.5 mcg/actuation aerosol inhaler vitamin B complex-vitamin C-folic 1 tab PO QDAY 06/25/24 07/31/24 acid 0.8 mg tablet (Sapphire-Holly) insulin lispro 100 unit/mL See Protocol subcut AC 07/16/24 07/31/24 subcutaneous pen (Humalog KwikPen (U-100) Insulin) loperamide 2 mg tablet 2 mg PO Q6H PRN Diarrhea 07/16/24 07/31/24 Previous Rx's ?Medication ?Instructions ?Recorded sennosides 8.6 mg tablet (senna) 8.6 mg PO BID PRN constipation #30 10/26/23 tabs metoclopramide HCl 5 mg tablet 5 mg PO Q6H gastroparesis 30 days 01/17/24 #120 tabs losartan 50 mg tablet 50 mg PO QDAY #30 tabs 05/22/24 Held on 08/01/24. Instructions: Resume on 08/08/24. Follow up with PCP for potassium level before restarting insulin detemir U-100 100 unit/mL 30 unit (0.3 mL) subcut BID #15 mL 06/29/24 (3 mL) subcutaneous pen tirzepatide (weight loss) 2.5 2.5 mg (0.5 mL) subcut QWEEK #2 mL 07/21/24 mg/0.5 mL subcutaneous pen injector (Zepbound) bumetanide 2 mg tablet 2 mg PO BID 1 month #60 tabs 07/24/24 hydralazine 100 mg tablet 100 mg PO TID 1 month #90 tabs 07/24/24 carvedilol 6.25 mg tablet 6.25 mg PO BIDWM 30 days #30 tabs 08/01/24 nifedipine 30 mg tablet,extended 30 mg PO QDAY 1 month #30 tabs 08/01/24 release Allergies Allergy/AdvReac Type Severity Reaction Status Date / Time ketorolac Allergy Severe TONGUE Verified 07/26/23 22:55 SWELLS UP escitalopram Allergy Intermediate Rash Verified 06/28/24 10:52 Review of Systems Review of Systems Narrative Review of Systems: GEN: No fever, no chills, no weight loss EYES: No discharge, no visual changes, no pain HEENT: No ear pain, no congestion, no sore throat PULM: No shortness of breath, no cough, no congestion CV: No chest pain, no dyspnea on exertion, no palpitations GI: No nausea, no vomiting, no diarrhea, no pain, no constipation : No frequency, no urgency, no dysuria MUSC/SKEL: No joint pain, no back pain SKIN: No rash PSYCH: No hallucinations, no depression HEME/LYMPH: No easy bleeding or bruising tendencies NEURO: No weakness, no headache Past Medical History Past Medical History NEUROLOGIC: Positive Neurological Disorders, Cerebrovascular Accident, Transient Ischemic Attacks (TIA) and Willis's Palsy; Negative Seizures CARDIAC: Positive Cardiac Disorders, Myocardial Infarction, Coronary Artery Disease, Atherosclerotic Heart Disease, Hypercholesterolemia, Congestive Heart Failure, Cellulitis, Deep Vein Thrombosis and Hypertension RESPIRATORY: Positive Asthma, Pulmonary Embolism and Sleep Apnea; Negative Chronic Obstructive Pulmonary Disease (COPD) or Pneumonia GASTROINTESTINAL: Positive Gastrointestinal Disorders, Cirrhosis and Obesity GENITOURINARY: Positive Genitourinary Disorders and Kidney Stones; Negative Renal Disease MUSCULOSKELETAL: Positive Musculoskeletal Disorders and Degenerative Disk Disease; Negative Bone Cancer, Carpal Tunnel Syndrome or Fractures ENDOCRINE: Positive Endocrine Disorders and Diabetes Mellitus Type 2; Negative Diabetes Mellitus Type 1 HEMATOLOGIC: Positive Blood Disorders and Anemia; Negative Sickle Cell Disease PSYCHO/SOCIAL: Positive Anxiety OTHER HISTORY: Positive Falls, Blood Transfusions and Chicken Pox; Negative Autoimmune Disease, Blood Transfusion Reaction, Anesthesia Reactions, Organ Transplant, MRSA, VRSA, Vancomycin-Resistant Enterococci, Clostridium Difficile or Cancer Family History FAMILY HISTORY: Positive Family Respiratory Disorders and Family Cardiac Disorders; Negative Family Neurologic Problems Surgical History SURGICAL: Positive Cardiac Surgery, Coronary Stent and Carotid Endarterectomy; Negative Ear Surgery, Abdominal Surgery, Joint Replacement, Amputation, Open Reduction Internal Fixation, Arthroscopy, Neurologic Surgery, Vasectomy or Organ Transplant Social History SMOKING STATUS: Current every day smoker SECOND HAND EXPOSURE: No ([id number] x 4 yrs) SUBSTANCE USE: does not use ED Exam Narrative Physical exam: [General: Morbidly obese appears not in any acute distress Head normocephalic HEENT: Within acceptable limits Neck is supple nontender Chest equal chest rise nontender to palpation Respiratory: Clear to auscultation no wheezes crackles or rubs CV: Rate rhythm is regular no murmurs rubs or clicks Abdomen is grossly distended secondary to body habitus soft nontender no masses positive bowel sounds all 4 quadrants Back: No CVA tenderness no spinous process tenderness from cervical spine thoracic and lumbar spine Skin: Intact no petechiae rash induration ulceration or crepitus Extremities: Moving all extremity against resistance cap refill less than 2 seconds neurosensory intact Neuro: Awake alert oriented x1, self, Glascow coma 15 no focal deficits] Course Quality Measures none Orders Category Date Time Status Admit to Inpatient Status Routine Admission 08/06/24 22:15 Active Patient Condition Routine Admission 08/06/24 22:14 Ordered Activity as Tolerated Routine Care 08/06/24 22:15 Ordered EKG (ED ONLY) *Do not use* NOW Care 08/06/24 19:28 Completed Notify provider NEEDED Care 08/06/24 22:14 Active Diet Carbohydrate Consistent Diet 08/07/[address] head/brain wo con Stat Exams 08/06/24 19:28 Completed EKG (ED Only) Stat Exams 08/06/24 19:28 Draft XR chest 1V Stat Exams 08/06/24 21:25 Completed ABG [Arterial Blood Gas] Stat Lab 08/06/24 20:12 Completed B-Type Natriuretic Peptide Stat Lab 08/06/24 20:46 Completed Basic Metabolic Panel AM DRAW Lab 08/07/24 05:00 Ordered Basic Metabolic Panel AM DRAW Lab 08/08/24 05:00 Ordered Basic Metabolic Panel AM DRAW Lab 08/09/24 05:00 Ordered CBC AM DRAW Lab 08/07/24 05:00 Ordered CBC AM DRAW Lab 08/08/24 05:00 Ordered CBC AM DRAW Lab 08/09/24 05:00 Ordered CBC Stat Lab 08/06/24 20:46 Completed Comprehensive Metabolic Panel Stat Lab 08/06/24 20:46 Completed Drug Screen,Urine Stat Lab 08/06/24 19:28 Ordered LDH (Lactate Dehydrogenase) Stat Lab 08/06/24 20:46 Completed Magnesium Stat Lab 08/06/24 20:46 Completed Partial Thromboplastin Time Stat Lab 08/06/24 20:46 Completed Prothrombin Time with INR Stat Lab 08/06/24 20:46 Completed Troponin I Stat Lab 08/06/24 20:46 Completed Urinalysis Stat Lab 08/06/24 19:28 Ordered Acetaminophen Tab [Tylenol Tab] Med 08/06/24 22:14 Active 650 mg PO Q6H PRN Code Status Routine Oth 08/06/24 22:14 Ordered BiPAP / CPAP NOW RT 08/06/24 21:56 Active Vital Signs Vital signs: Vital Signs Temperature 98.6 F 08/06/24 19:44 Pulse Rate 80 08/06/24 19:44 Respiratory Rate 17 08/06/24 19:44 Blood Pressure 142/62 H 08/06/24 19:44 Pulse Oximetry (%) 99 08/06/24 19:44 Oxygen Delivery Method Nasal Cannula 08/06/24 19:44 Oxygen Flow Rate 6 08/06/24 19:44 [facility] Patient data External records reviewed:: [facility] previous records and EMS form Clinical information provided by:: patient and EMS Social determinants that could affect healthcare access:: none Patient has the following chronic illnesses:: Chronic back pain type 2 diabetes morbid obesity alcoholic cirrhosis. How is presenting disease/condition affected by chronic disease/condition?: exacerbated by Evaluation data The following diagnostics were reviewed and interpreted by me:: lab results, radiology exam(s) and EKG tracing(s) Lab and/or radiology exams considered but not ordered:: EKG performed at 1947 shows a ventricular rate of 80 SC interval 158 QRS of 113 QTc of 407 sinus rhythm. CBC shows no acute leukocytosis and H&H of 7.4 and 25.3 respectively with a history of anemia. Platelet count is 177 Coags within acceptable limits ABG shows a pH of 7.26 pCO2 of 75 pO2 of 65 bicarb of 34 base excess of 6. CMP shows sodium 144 potassium of 5.5 chloride of 106 carbon oxide of 32.0 gap of 6 BUN of 68 creatinine 1.1. No transaminitis or T. bili elevation. Troponin is negative Interpretation Summary: Reviewed the laboratory so the patient has a CO2 retention of 74, this is the highest it has been in the recent history patient was discharged recently for the same complaint and is mildly altered secondary to CO2 retention. The patient is confused, and required considerable conversation to agreed to CPAP and admission. Patient's case discussed with Dr. Vines who agrees to accept the patient for admission. Medications Medications considered but not ordered:: None Medication administrations:: Medication Administration History Acetaminophen (Acetaminophen 325 Mg Tablet) 650 mg PO Q6H PRN PRN Reason: Fever >101.5 Stop: 09/05/24 22:13 None Consultations Consultation(s) initiated? (list below): No Diagnosis Differential Diagnosis ED Complaint MDM: CO2 retention pneumonia altered mental Status Most likely diagnosis given after review of the tests above:: CO2 retention, confusion Admission Indicated Admission indicated?: indicated Explain why admission is indicated or not indicated:: Ryan further medical management Admission Request Was there a request for admission?: No Disposition Plan Disposition Plan: Admit Medical Decision Making Differential Diagnosis Differential Diagnosis: CO2 retention pneumonia altered mental Status Lab Data 08/06/24 20:46 08/06/24 20:46 Labs: Lab Results 08/06/24 08/06/24 Range/Units 20:12 20:46 WBC 8.1 (3.8-10.6) Thou/mm3 RBC 2.84 L (4.50-5.90) Miln/mm3 Hgb 7.4 L (13.5-16.0) g/dL Hct 25.3 L (41.0-53.0) % MCV 89 (80-100) fL MCH 26.1 (25.0-35.0) pg MCHC 29.2 L (31.0-37.0) g/dl RDW Std Deviation 55.2 H (35.1-43.9) fL Plt Count 177 D (140-440) Thou/mm3 Neut % (Auto) 74 (37-80) % Lymph % (Auto) 11 (10-50) % [place] % (Auto) 12 (0-12) % Eos % (Auto) 2 (0-10) % Baso % (Auto) 0 (0-2.5) % Neut # (Auto) 6.0 (1.8-7.7) Thou/mm3 Lymph # (Auto) 0.9 L (1.0-4.8) Thou/mm3 [place] # (Auto) 0.9 H (0.0-0.8) Thou/mm3 Eos # (Auto) 0.2 (0.0-0.5) Thou/mm3 Baso # (Auto) 0.0 (0.0-0.2) Thou/mm3 Immature Gran # (Auto) 0.06 H (0.00-0.00) Thou/mm3 Absolute Nucleated RBC 0.00 (0.00-0.00) Thou/mm3 Immature Gran % 1 H (0-0) % Nucleated RBC % 0 (0) /100 WBC PT 11.5 (9.0-12.2) Seconds INR 1.1 (0.9-1.3) APTT 27.8 (22.0-36.0) Seconds Puncture Site Right Radial ABG pH 7.26 L (7.35-7.45) ABG pCO2 75 H* (32.0-48.0) mmHg ABG pO2 65 L (83-108) mmHg ABG HCO3 34 H (20-26) mEq/L ABG O2 Saturation 91 (91-98) % ABG Base Excess 6 H (-3-3) Oxygen Liter Flow 2 L/min FiO2 21 % Sodium 144 (136-145) mMol/L Potassium 5.5 H (3.4-5.1) mMol/L Chloride 106 (98-107) mMol/L Carbon Dioxide 32.0 H (20.0-31.0) mMol/L Anion Gap 6 L (7-16) BUN 68 H (9-23) mg/dL Creatinine 1.1 (0.6-1.3) mg/dL Estim Creat Clear Calc Not Performed. eGFR > 60 (60 - ) See Note BUN/Creatinine Ratio 62 H (12-20) Ratio Glucose 71 L (74-106) mg/dL Calculated Osmolality 304 H (275-295) Calcium 8.9 (8.3-10.6) mg/dL Corrected Calcium 9.5 (8.5-10.1) mg/dL Magnesium 2.2 (1.6-2.6) mg/dL Total Bilirubin 0.2 L (0.3-1.2) mg/dL AST 30 (0-34) U/L ALT 17 (10-49) U/L Alkaline Phosphatase 84 (46-116) U/L Lactate Dehydrogenase 207 (120-246) U/L Troponin I 0.024 (0.0-0.045) ng/mL B-Natriuretic Peptide 406 H (0-100) pg/mL Total Protein 6.4 (5.7-8.2) gm/dL Albumin 3.3 L (3.5-5.0) gm/dL Globulin 3.1 (2.3-3.5) gm/dL Albumin/Globulin Ratio 1.1 L (1.2-2.2) Discharge Plan Plan Patient Disposition: Other Care w/in Hosp ([facility]) Prescriptions/Referrals Prescriptions/Med Rec: No Action hydrocodone-acetaminophen 10-325 mg tablet 1 tab PO Q4H PRN (Reason: Pain, Moderate) pregabalin 150 mg capsule 150 mg PO TID sennosides [senna] 8.6 mg tablet 8.6 mg PO BID PRN (Reason: constipation) Qty: 30 0RF carvedilol 6.25 mg tablet 6.25 mg PO BIDWM 30 Days Qty: 30 0RF nifedipine 30 mg tablet extended release 30 mg PO QDAY 30 Days Qty: 30 0RF morphine 15 mg tablet extended release 15 mg PO QDAY PRN (Reason: Pain, Severe) metoclopramide HCl 5 mg tablet 5 mg PO Q6H 30 Days Qty: 120 3RF losartan 50 mg tablet 50 mg PO QDAY Qty: 30 0RF atorvastatin 80 mg Tablet 80 mg PO QPM ascorbic acid (vitamin C) [Vitamin C] 500 mg Tablet 500 mg PO BID Sapphire-Holly 0.8 mg Tablet 1 tab PO QDAY budesonide-formoterol 160-4.5 mcg/actuation Hfa Aerosol Inhaler 2 puff INHALATION BID apixaban 5 mg Tablet 5 mg PO BID insulin detemir U-100 100 unit/mL (3 mL) Insulin Pen 30 unit SUBCUT BID Qty: 15 0RF loperamide 2 mg Tablet 2 mg PO Q6H PRN (Reason: Diarrhea) insulin lispro [Humalog KwikPen Insulin] 100 unit/mL insulin pen See Protocol SUBCUT AC Protocol: Insulin Corrective High-Dose Regimen Condition: Fingerstick Blood Glucose Dose/Route: Insulin Units Condition: 141-180 mg/dl Dose/Route: 6 units/SQ Condition: 181-220 mg/dl Dose/Route: 8 units/SQ Condition: 221-260 mg/dl Dose/Route: 10 units/SQ Condition: 261-300 mg/dl Dose/Route: 12 units/SQ Condition: 301-350 mg/dl Dose/Route: 14 units/SQ Condition: 351-400 mg/dl Dose/Route: 16 units/SQ Condition: greater than 400 mg/dl Dose/Route: 18 units/SQ Zepbound 2.5 mg/0.5 mL pen injector 2.5 mg subcut QWEEK Qty: 2 2RF Rx Instructions: Please double the dose every 2 weeks as tolerated until maximum dose of 10mg/Week. bumetanide 2 mg tablet 2 mg PO BID 30 Days Qty: 60 0RF hydralazine 100 mg tablet 100 mg PO TID 30 Days Qty: 90 0RF Problem List Clinical Impression: CO2 retention, Morbid obesity, Confusion Patient/Caregiver Discharge Instructions Print Language: Mohawk Stand Alone Forms: [facility] Award Info., Patient Portal Info Letter PA/[employer]ARPING [employer] OPERATOR Supervising Physician PA/[employer]ING [employer] OPERATOR Supervising Physician: Osvaldo Morrison ENP
[2024-08-06 19:44] VITALS: BP 142/62; PULSE 80; RESP 17; TEMP 37; O2SAT 99
[2024-08-06 20:00] VITALS: PULSE 62; RESP 18; O2SAT 100
[2024-08-06 20:12] VITALS: BP 121/71; PULSE 77; RESP 16; TEMP 36.6; O2SAT 100
[2024-08-06 20:17] LABS: Base Excess 6 (-3-3); HCO3 34 mEq/L (20-26); Inspired O2, VO2 Liters 2 L/min; Inspired Oxygen, FIO2 21 %; O2 Saturation 91 % (91-98); PCO2 75 mmHg (32.0-48.0); PO2 65 mmHg (83-108); pH, Arterial 7.26 (7.35-7.45)
[2024-08-06 20:18] LABS: Allen Test Performed/OK; Puncture Site Right Radial
[2024-08-06 21:10] LABS: Basophils % (Auto) 0 % (0-2.5); Eosinophils # (Auto) 0.2 Thou/mm3 (0.0-0.5); Eosinophils % (Auto) 2 % (0-10); Hematocrit 25.3 % (41.0-53.0); Immature Granulocytes % (Auto) 1 % (0-0); Immature Granulocytes Auto 0.06 Thou/mm3 (0.00-0.00); Lymphocytes # (Auto) 0.9 Thou/mm3 (1.0-4.8); Lymphocytes % (Auto) 11 % (10-50); Mean Corpuscular HGB Conc 29.2 g/dl (31.0-37.0); Mean Corpuscular Hemoglobin 26.1 pg (25.0-35.0); Mean Corpuscular Volume 89 fL (80-100); Monocytes # (Auto) 0.9 Thou/mm3 (0.0-0.8); Monocytes % (Auto) 12 % (0-12); Neutrophils % (Auto) 74 % (37-80); Nucleated Red Blood Cell % 0 /100 WBC (0); Platelet Count 177 Thou/mm3 (140-440); RDW Standard Deviation 55.2 fL (35.1-43.9); Red Blood Count 2.84 Miln/mm3 (4.50-5.90); White Blood Count 8.1 Thou/mm3 (3.8-10.6)
[2024-08-06 21:17] LABS: INR 1.1 (0.9-1.3); Partial Thromboplastin Time 27.8 Seconds (22.0-36.0); Prothrombin Time 11.5 Seconds (9.0-12.2)
[2024-08-06 21:21] LABS: Albumin, Serum 3.3 gm/dL (3.5-5.0); Albumin/Globulin Ratio 1.1 (1.2-2.2); Alkaline Phosphatase 84 U/L (46-116); Anion Gap 6 (7-16); Aspartate Amino Transferase 30 U/L (0-34); BUN/Creatinine Ratio 62 Ratio (12-20); Bilirubin,Total 0.2 mg/dL (0.3-1.2); Blood Urea Nitrogen 68 mg/dL (9-23); Calcium 8.9 mg/dL (8.3-10.6); Calcium (Corrected) 9.5 mg/dL (8.5-10.1); Chloride 106 mMol/L (98-107); Creatinine (Component) 1.1 mg/dL (0.6-1.3); Globulin 3.1 gm/dL (2.3-3.5); Glucose 71 mg/dL (74-106); LDH (Lactate Dehydrogenase) 207 U/L (120-246); Magnesium 2.2 mg/dL (1.6-2.6); Osmolality,Calculated 304 (275-295); Potassium 5.5 mMol/L (3.4-5.1); Sodium 144 mMol/L (136-145); Total Protein 6.4 gm/dL (5.7-8.2); Troponin I 0.024 ng/mL (0.0-0.045); eGFR > 60 See Note
--- NOTE | 2024-08-06 21:25 | XR_ITS ---
Examination: AP chest single view Technique one AP portable upright chest single view Exam date and time: August 06, 2024 10 0 1:00 PM Comparison May 29, 2025 Indications: Shortness of breath today Findings: Moderate CHF Moderate enlargement cardiac contour Prominent vascular congestion including central vascular engorgement Perihilar edema Impression: Moderate CHF
[2024-08-06 21:28] LABS: Alanine Aminotransferase 17 U/L (10-49)
[2024-08-06 21:40] LABS: Hemoglobin 7.4 g/dL (13.5-16.0)
[2024-08-06 22:07] LABS: B-Type Natriuretic Peptide 406 pg/mL (0-100)
[2024-08-06 22:17] VITALS: BP 144/71; PULSE 77; RESP 20; O2SAT 95
--- NOTE | 2024-08-06 22:23 | PD.RESHP ---
Documentation for date of: 08/06/24 HPI History of Present Illness Chief complaint: Shortness of breath, dyspnea, altered mental status History of present illness: Mr. Fisher is a 54-year-old male with history of HFpEF (EF 55 to 60%, 04/24/24), coronary artery disease status post stent placement, insulin-dependent diabetes mellitus, CVA, carotid artery stenosis status post bilateral endarterectomy 2018, PE on Eliquis, hypertension, obstructive sleep apnea, cirrhosis, history of vertebral hemangioma status postradiation therapy who presented to [facility] emergency department on 08/06/2024 from longterm facility for altered mental status. Per EMS handoff patient was seen by EMS in a.m. for same complaint of shortness of breath and dyspnea but patient was alert and oriented refused transport. EMS was called back in the evening around 1900 and patient was found to be altered. Currently at bedside patient is able to engage in some conversation, answer simple questions, able to state name date of and location but is very lethargic and drowsy. ABG in the emergency department significant for pH 7.26, pCO2 75, pO2 65 and bicarb 34, hospitalist team consulted for admission for acute metabolic encephalopathy secondary to acute hypercapnic respiratory failure. Most of patient's history is obtained from chart review, ED documentation and EMS report. Of note patient was discharged on 08/01/2024 for similar complaints of acute on chronic hypoxic hypercapnic respiratory failure. Patient's Lasix 40 mg daily was being held due to acute kidney injury. ED Course: ED Vitals: On presentation in ED BP 142/62, P80, RR 17, temp 98.6, O2 sat 99 on 6 L via nasal cannula ED Labs: ED labs significant for RBC 2.84, hemoglobin 7.4, hematocrit 25.3, MCHC 29.2, ABG pH 7.26, pCO2 75, pO2 65, bicarb 34, potassium 5.5, venous CO2 32, BUN 68, creatinine 1.1, glucose 71, osmolality 304, BNP 406, albumin 3.3 ED Imaging:CT head in ED negative for acute hemorrhage, mass effect or midline shift. EKG in ED shows sinus rhythm, QTc 429. Chest x-ray significant for moderate CHF, on review unchanged from chest x-ray from 07/30/2024 ED Treatment: Hospitalist team was consulted for acute metabolic encephalopathy secondary to acute hypercapnic respiratory failure, patient will be started on BiPAP. Review of Systems Review of Systems ROS Unobtainable: unobtainable due to mental status Past Medical History Past Medical History NEUROLOGIC: Positive Neurological Disorders, Cerebrovascular Accident, Transient Ischemic Attacks (TIA) and Willis's Palsy; Negative Seizures CARDIAC: Positive Cardiac Disorders, Myocardial Infarction, Coronary Artery Disease, Atherosclerotic Heart Disease, Hypercholesterolemia, Congestive Heart Failure, Cellulitis, Deep Vein Thrombosis and Hypertension RESPIRATORY: Positive Asthma, Pulmonary Embolism and Sleep Apnea; Negative Chronic Obstructive Pulmonary Disease (COPD) or Pneumonia GASTROINTESTINAL: Positive Gastrointestinal Disorders, Cirrhosis and Obesity GENITOURINARY: Positive Genitourinary Disorders and Kidney Stones; Negative Renal Disease MUSCULOSKELETAL: Positive Musculoskeletal Disorders and Degenerative Disk Disease; Negative Bone Cancer, Carpal Tunnel Syndrome or Fractures ENDOCRINE: Positive Endocrine Disorders and Diabetes Mellitus Type 2; Negative Diabetes Mellitus Type 1 HEMATOLOGIC: Positive Blood Disorders and Anemia; Negative Sickle Cell Disease PSYCHO/SOCIAL: Positive Anxiety OTHER HISTORY: Positive Falls, Blood Transfusions and Chicken Pox; Negative Autoimmune Disease, Blood Transfusion Reaction, Anesthesia Reactions, Organ Transplant, MRSA, VRSA, Vancomycin-Resistant Enterococci, Clostridium Difficile or Cancer Family History FAMILY HISTORY: Positive Family Respiratory Disorders and Family Cardiac Disorders; Negative Family Neurologic Problems Surgical History SURGICAL: Positive Cardiac Surgery, Coronary Stent and Carotid Endarterectomy; Negative Ear Surgery, Abdominal Surgery, Joint Replacement, Amputation, Open Reduction Internal Fixation, Arthroscopy, Neurologic Surgery, Vasectomy or Organ Transplant Social History SMOKING STATUS: Current every day smoker SECOND HAND EXPOSURE: No ([id number] x 4 yrs) SUBSTANCE USE: does not use Past Medical History Comments PMH COMMENT: PMH: Positive for HFpEF (EF 55 to 60%, 04/24/24), coronary artery disease status post stent placement, insulin-dependent diabetes mellitus, CVA, carotid artery stenosis status post bilateral endarterectomy 2019, PE on Eliquis, hypertension, obstructive sleep apnea, cirrhosis, history of vertebral hemangioma status postradiation therapy PSHx: Bilateral endarterectomy 2019, coronary artery stent placement about 5 years ago, status postradiation therapy for vertebral hemangioma. Allergies: Ketorolac, escitalopram Social history:Occasional alcohol drinker, [id number] smoking history current marijuana use Family History:Positive for respiratory disorders and cardiac disorder in family Exam Vital Signs Temp Pulse Resp BP Pulse Ox O2 Del Method O2 Flow Rate 98 F 77 16 121/71 100 Nasal Cannula 3 08/06/24 20:12 08/06/24 20:12 08/06/24 20:12 08/06/24 20:12 08/06/24 20:12 08/06/24 20:12 08/06/24 20:12 Narrative Exam Physical Exam General: Awake and in no acute distress. Conversational and non-toxic appearing. HEENT: Normocephalic, atraumatic, mucous membranes moist. Heart: Regular rate and rhythm, no murmurs. Lungs: Decreased breath sounds secondary to body habitus Abdomen: Soft, obese, nondistended, nontender, positive bowel sounds. No guarding or rebound tenderness. Neurologic: Alert and oriented x3, no gross neurological deficit, and patient able to move all 4 extremities. Extremities: Trace bilateral lower extremity edema. Skin: No rash, ecchymosis noted on bilateral arms. Sacral ulcer. Results: Labs 08/06/24 20:46 08/06/24 20:46 Labs: Short CBC 08/06/24 Range/Units 20:46 WBC 8.1 (3.8-10.6) Thou/mm3 Hgb 7.4 L (13.5-16.0) g/dL Hct 25.3 L (41.0-53.0) % Plt Count 177 D (140-440) Thou/mm3 BMP 08/06/24 20:46 Sodium 144 Potassium 5.5 H Chloride 106 Carbon Dioxide 32.0 H BUN 68 H Creatinine 1.1 Glucose 71 L Calcium 8.9 Cardiac Enzymes 08/06/24 Range/Units 20:46 Troponin I 0.024 (0.0-0.045) ng/mL Liver Function 08/06/24 Range/Units 20:46 Total Bilirubin 0.2 L (0.3-1.2) mg/dL AST 30 (0-34) U/L ALT 17 (10-49) U/L Alkaline Phosphatase 84 (46-116) U/L Albumin 3.3 L (3.5-5.0) gm/dL ABG Interpretation ABG results: 08/06/24 20:12 ABG pH 7.26 L ABG pCO2 75 H* ABG pO2 65 L ABG HCO3 34 H ABG O2 Saturation 91 ABG Base Excess 6 H Quality Measures Quality Measures none Medications Home Medications and Allergies Home Medications ?Medication ?Instructions ?Recorded ?Confirmed ?Type hydrocodone 10 mg-acetaminophen 1 tab PO Q4H PRN Pain, Moderate 10/22/23 07/31/24 History 325 mg tablet pregabalin 150 mg capsule 150 mg PO TID 10/22/23 07/31/24 History morphine 15 mg tablet,extended 15 mg PO QDAY PRN Pain, Severe 01/14/24 07/31/24 History release apixaban 5 mg tablet 5 mg PO BID 06/25/24 07/31/24 History ascorbic acid (vitamin C) 500 mg 500 mg PO BID 06/25/24 07/31/24 History tablet (Vitamin C) atorvastatin 80 mg tablet 80 mg PO QPM 06/25/24 07/31/24 History budesonide-formoterol HFA 160 2 puff inhalation BID 06/25/24 07/31/24 History mcg-4.5 mcg/actuation aerosol inhaler vitamin B complex-vitamin C-folic 1 tab PO QDAY 06/25/24 07/31/24 History acid 0.8 mg tablet (Sapphire-Holly) insulin lispro 100 unit/mL See Protocol subcut AC 07/16/24 07/31/24 History subcutaneous pen (Humalog KwikPen (U-100) Insulin) loperamide 2 mg tablet 2 mg PO Q6H PRN Diarrhea 07/16/24 07/31/24 History Allergies Allergy/AdvReac Type Severity Reaction Status Date / Time ketorolac Allergy Severe TONGUE Verified 07/26/23 22:55 SWELLS UP escitalopram Allergy Intermediate Rash Verified 06/28/24 10:52 Visit Medications Acetaminophen (Acetaminophen 325 Mg Tablet) 650 mg PO Q6H PRN PRN Reason: Fever >101.5 Stop: 09/05/24 22:13 Albuterol/Ipratropium (Albuterol/Ipratropium (Duoneb) Rt Radha 3 Ml Nebu) 3 ml INH Q4HRRT RINA Stop: 09/05/24 22:59 Amlodipine Besylate (Amlodipine Besylate 5 Mg Tablet) 10 mg PO QDAY RINA Stop: 09/06/24 08:59 Apixaban (Apixaban 2.5 Mg Tablet) 5 mg PO BID RINA Stop: 08/28/24 08:59 Ascorbic Acid (Ascorbic Acid 250 Mg Tablet) 500 mg PO BID RINA Stop: 09/06/24 08:59 Atorvastatin Calcium (Atorvastatin Calcium 20 Mg Tablet) 80 mg PO HS [facility] Stop: 09/06/24 20:59 Carvedilol (Carvedilol 3.125 Mg Tablet) 6.25 mg PO BIDWM [facility] Stop: 09/06/24 07:59 Clopidogrel Bisulfate (Clopidogrel Bisulfate 75 Mg Tablet) 75 mg PO QDAY [facility] Stop: 09/06/24 08:59 Dextrose (Dextrose 50%-Water Inj 50 Ml Syringe) 25 ml IV Q15MIN PRN PRN Reason: BG 50-70 responsive npo pt Stop: 09/05/24 22:16 Dextrose (Dextrose 50%-Water Inj 50 Ml Syringe) 50 ml IV Q15MIN PRN PRN Reason: BG <50 OR BG <70 & pt unresponsive Stop: 09/05/24 22:16 Furosemide (Furosemide 40 Mg Tablet) 40 mg PO QDAY [facility] Stop: 09/06/24 08:59 Glucagon (Glucagon Inj 1 Mg Vial) 1 mg IM Q15MIN PRN PRN Reason: BG <70, and no IV access Insulin Human Regular (Insulin Hum Regular 1 Unit/0.01 Ml (Per Unit)) [address] [facility]; Protocol Stop: 09/06/24 07:29 Assessment & Plan Plan Assessment and plan: Summary: Mr. Fisher is a 54-year-old male with history of HFpEF (EF 55 to 60%, 04/24/24), coronary artery disease status post stent placement, insulin-dependent diabetes mellitus, CVA, carotid artery stenosis status post bilateral endarterectomy 2018, PE on Eliquis, hypertension, obstructive sleep apnea, cirrhosis, history of vertebral hemangioma status postradiation therapy who presented to [facility] emergency department on 08/06/2024 from longterm facility for altered mental status. Patient admitted for acute metabolic encephalopathy secondary to acute on chronic hypercapnic respiratory failure. #Acute metabolic encephalopathy secondary to #Acute on chronic hypercapnic respiratory failure #Obstructive sleep apnea, baseline 1 to 2 L oxygen Patient presented with altered mental status, alert and oriented x 3, lethargic and drowsy unable to engage in conversation. In ED ABG shows pH 7.26, pCO2 75. Patient has chronic retention of CO2, usually pCO2 in mid 50s, patient was recently discharged from hospital on 08/01/2024 for acute on chronic hypercapnic respiratory failure. Patient's Lasix was being held due to concern of acute kidney injury. Plan: ?Patient will be started on BiPAP ?DuoNeb breathing treatment every 4 hours ?Prednisone p.o. 40 mg daily ?Follow ABG in a.m. #Congestive heart failure, HFpEF EF 55 to 60%, 04/2024 #Moderate CHF on chest x-ray #Coronary artery disease, status post stent placement, by history #CVA, by history Patient was recently discharged from hospital on 08/01/2024, Lasix was being held due to concern of ZENY. Patient does have trace bilateral lower extremity edema, chest x-ray does show moderate congestive heart failure. Patient does have a history of coronary artery disease, had stent placement about 5 years ago ECHO 04/2024: Normal LV size and function. Mild LVH. Grade I diastolic dsyfunction. Estimated EF 55-60% Mild RV dilation. Normal RV function. Mild biatrial dilation. Trace MR, TR. Mild AV sclerosis without stenosis. There is a small circumferential pericardial effusion. No evidence of cardiac tamponade. Plan: -IV furosemide 40 mg x 1, started on p.o. Lasix 40 daily -Strict intake and output, daily weight -Resumed Plavix 75 mg p.o. daily -Continue BiPAP #Hyperkalemia Patient's potassium 5.5 on admission Plan: -Will be given Kayexalate x 1 -Follow potassium in a.m. #History of pulmonary embolism Per chart review patient has been on Eliquis for PE since 2022. Eliquis was held during hospitalizations due to concern of GI bleed. Currently patient is on p.o. Eliquis. Plan: -Continue Eliquis 5 mg twice daily #Normocytic normochromic anemia On presentation hemoglobin 7.4, MCV 89, MCH 26.1, MCHC 29.2. On 08/01 was 7.6. Plan: -Follow CBC in a.m. #Hypertension Patient on amlodipine 10 mg p.o. daily and Coreg 6.25 p.o. twice daily Plan: -Resume home medication #Diabetes mellitus Last hemoglobin A1c 6.8 from 07/26/2024 Plan: -Sliding scale insulin -Hypoglycemia protocol -Fingerstick blood glucose checks DVT prophylaxis: Eliquis GI prophylaxis: Not indicated, consider in a.m. Diet: Carbohydrate consistent Lines: Peripheral IV Code status: Full code Case discussed with Attending Dr. Vines. Miguel Viveros PGY1 Disclaimer: This note was dictated by speech recognition. Minor errors in credit administration officer may be present due to voice recognition software. Attending Provider Attestation/Addendum Pt was evaluated and plan formulated together with the housestaff team. I have reviewed the residents note above and agree with most of its content. Please refer to the residents note for additional details.
[2024-08-06 22:54] VITALS: RESP 18; RESP 24; O2SAT 100
[2024-08-06 23:00] VITALS: BP 150/85; PULSE 79; RESP 20; O2SAT 80
--- NOTE | 2024-08-06 23:00 | PC.NURSE ---
pt was inc of stool twice and was cleaned and changed twice.
--- NOTE | 2024-08-06 23:17 | PC.RT ---
Pt has removed BiPAP himself and is refusing to wear at this time. Dr. Vines notified.
--- NOTE | 2024-08-06 23:55 | PD.EVENT ---
Documentation for date of: 08/06/24 Event Note Event Note: The patient is combative and refusing BiPAP, with an oxygen saturation of 78% on room air. I will attempt a Precedex drip before proceeding with intubation.
[2024-08-07] VITALS (58 sets, daily range): BP systolic 141–196; BP diastolic 66–112; PULSE 63–102; RESP 10–34; TEMP 35.9–37.1; O2SAT 81–100; BMI 49.2
[2024-08-07 00:03] LABS: Base Excess 5 (-3-3); HCO3 33 mEq/L (20-26); Inspired Oxygen, FIO2 21 %; O2 Saturation 97 % (91-98); PCO2 66 mmHg (32.0-48.0); PO2 88 mmHg (83-108); pH, Arterial 7.31 (7.35-7.45)
[2024-08-07 00:07] LABS: Allen Test Performed/OK; Puncture Site Right Radial
--- NOTE | 2024-08-07 00:10 | PC.NURSE ---
Pt restless. is confused. Non compliant with bipap.
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
[2024-08-07] MEDS: FUROSEMIDE INJ 10 MG/ML 4ML VIAL 40 MG IVP ×2 (01:41→10:48)
[2024-08-07] MEDS: SOD POLYSTYRENE SULFON SUSP 15 GM/60 ML BTL 30 GM PO (01:43)
[2024-08-07] MEDS: DEXTROSE 50%-WATER INJ 50 ML SYRINGE 25 ML IV (01:55)
[2024-08-07] MEDS: ALBUTEROL/IPRATROPIUM (Duoneb) RT SOL 3 ML NEBU INH ×6 (02:08→22:12)
--- NOTE | 2024-08-07 02:44 | PC.NURSE ---
report called to lita
[2024-08-07 05:38] LABS: Base Excess 7 (-3-3); HCO3 35 mEq/L (20-26); Inspired Oxygen, FIO2 21 %; O2 Saturation 100 % (91-98); PCO2 71 mmHg (32.0-48.0); PO2 176 mmHg (83-108)
[2024-08-07 05:44] LABS: Allen Test Performed/OK; Puncture Site Left Brachial
[2024-08-07 05:50] LABS: Basophils % (Auto) 0 % (0-2.5); Eosinophils # (Auto) 0.2 Thou/mm3 (0.0-0.5); Eosinophils % (Auto) 2 % (0-10); Lymphocytes # (Auto) 1.3 Thou/mm3 (1.0-4.8); Lymphocytes % (Auto) 16 % (10-50); Mean Corpuscular Volume 90 fL (80-100); Monocytes % (Auto) 11 % (0-12); Neutrophils % (Auto) 71 % (37-80); Nucleated Red Blood Cell % 0 /100 WBC (0)
[2024-08-07 05:51] LABS: Hematocrit 24.8 % (41.0-53.0); Immature Granulocytes % (Auto) 1 % (0-0); Immature Granulocytes Auto 0.04 Thou/mm3 (0.00-0.00); Mean Corpuscular Hemoglobin 26.2 pg (25.0-35.0); Monocytes # (Auto) 0.9 Thou/mm3 (0.0-0.8); Neutrophils # (Auto) 5.9 Thou/mm3 (1.8-7.7); Platelet Count 152 Thou/mm3 (140-440); RDW Standard Deviation 56.1 fL (35.1-43.9); Red Blood Count 2.75 Miln/mm3 (4.50-5.90); White Blood Count 8.3 Thou/mm3 (3.8-10.6)
--- NOTE | 2024-08-07 05:59 | PC.RT ---
per nurse pt took off bipap mask was place on 4L nc due to refusing to go back on bipap, DR. sepulveda was at bedside talking to pt, pt agree to to back once attempted to place back on bipap pt refused nurse made aware, RT Roselyn given report and made aware.
[2024-08-07 06:08] LABS: Hemoglobin 7.2 g/dL (13.5-16.0)
[2024-08-07 06:20] LABS: Anion Gap 6 (7-16); BUN/Creatinine Ratio 58 Ratio (12-20); Blood Urea Nitrogen 58 mg/dL (9-23); Calcium 9.3 mg/dL (8.3-10.6); Carbon Dioxide 30.4 mMol/L (20.0-31.0); Chloride 112 mMol/L (98-107); Estimated Creatinine Clearance 116.5 mL/min (>60); Glucose 75 mg/dL (74-106); Osmolality,Calculated 309 (275-295); Potassium 5.2 mMol/L (3.4-5.1); Sodium 148 mMol/L (136-145); eGFR > 60 See Note
[2024-08-07] MEDS: MORPHINE SULF INJ 10 MG/ML VIAL IVP (10:50)
[2024-08-07] MEDS: amLODIPine BESYLATE 5 MG TABLET 10 MG PO (10:50)
[2024-08-07] MEDS: APIXABAN 2.5 MG TABLET 5 MG PO ×2 (10:51→20:26)
[2024-08-07] MEDS: CLOPIDOGREL BISULFATE 75 MG TABLET PO (10:51)
[2024-08-07] MEDS: ASCORBIC ACID 250 MG TABLET 500 MG PO ×2 (10:51→20:26)
[2024-08-07] MEDS: predniSONE 20 MG TABLET 40 MG PO (10:52)
[2024-08-07] MEDS: carVEDILOL 3.125 MG TABLET 6.25 MG PO ×2 (10:52→18:37)
[2024-08-07 12:20] LABS: Potassium 4.8 mMol/L (3.4-5.1)
--- NOTE | 2024-08-07 13:13 | ESPR_ITS ---
<Statement entered by Nichelle Walsh MD - 08/07/24 13:20> I discussed with and supervised my co-resident involved in the care of this patient. I agree with the assessment and plan as documented above. Patient admitted for acute on chronic hypercapnic respiratory failure due to non-compliance. Requires max encouragement for adherence. Will follow up with ABG if patient can be taken off BIPAP and if patient returns to baseline, anticipate discharge back to SNF within the next 24-48 hours. Nichelle Walsh MD PGY-3 Documentation for date of: 08/07/24 Subjective Subjective Interval history: Patient was seen at bedside this morning. Overnight patient was being on the floor and he removed his BiPAP. His ABG this morning showed worsening hypercapnia and showed respiratory acidosis. Spoke with patient today about the need for BiPAP to be on continuously today in order for his hypercapnia to improve. Explained to the patient that if he did not comply with the BiPAP that his CO2 will continue to increase and he would become altered and will need intubation if he became altered and his hypercapnia did not improve. Patient stated that he was okay to put the BiPAP and will repeat ABG 2 hours after. Talk to patient also about being on the floor he stated that he has not do that, but it was okay to have a condom Wright placed and if that did not work we will likely proceed with Wright catheter. Patient was complaining of some pain therefore gave morphine 1 mg x 1 at this time. No other complaints at this time. Will follow-up on ABG Exam Vital Signs Temp Pulse Resp BP Pulse Ox O2 Del Method O2 Flow Rate 97.8 F 80 16 152/86 H 93 L BiPAP 4 08/07/24 12:00 08/07/24 12:00 08/07/24 12:00 08/07/24 12:00 08/07/24 12:00 08/07/24 12:00 08/07/24 12:00 FiO2 60 08/07/24 12:00 Narrative Exam General: A/O x3, obese, no acute distress Eyes: PERRL, EOMI. Anicteric, vision grossly intact. Ears: No ear pain, no visible ear discharge, Hearing grossly intact. Nose: No visible nasal discharge. Mouth/Throat: Dry mucous membranes, no redness, no lesions. Neck: Neck supple, non-tender, no cervical lymphadenopathy. Lungs: Decreased breath sounds with mild wheezing, No accessory muscle use. Cardio: Normal S1/S2, regular rhythm, no murmurs, no JVD Abdomen: Soft, non-tender, no palpable masses, peristalsis present, no guarding or rebound. Extremities: Symmetrical, no significant deformities, 1+ peripheral edema , non-tender, peripheral pulses presents. Skin: No rashes, no lesions, warm to touch. Neuro: No focal neurological deficits. motor and sensory intact Objective Labs 08/07/24 05:13 08/07/24 11:49 Labs: Laboratory Results - last 24 hr 08/06/24 08/06/24 08/06/24 20:12 20:46 23:59 WBC 8.1 RBC 2.84 L Hgb 7.4 L Hct 25.3 L MCV 89 MCH 26.1 MCHC 29.2 L RDW Std Deviation 55.2 H Plt Count 177 D Neut % (Auto) 74 Lymph % (Auto) 11 [place] % (Auto) 12 Eos % (Auto) 2 Baso % (Auto) 0 Neut # (Auto) 6.0 Lymph # (Auto) 0.9 L [place] # (Auto) 0.9 H Eos # (Auto) 0.2 Baso # (Auto) 0.0 Immature Gran # (Auto) 0.06 H Absolute Nucleated RBC 0.00 Immature Gran % 1 H Nucleated RBC % 0 PT 11.5 INR 1.1 APTT 27.8 Puncture Site Right Radial Right Radial ABG pH 7.26 L 7.31 L ABG pCO2 75 H* 66 H ABG pO2 65 L 88 D ABG HCO3 34 H 33 H ABG O2 Saturation 91 97 ABG Base Excess 6 H 5 H Oxygen Liter Flow 2 FiO2 21 21 Sodium 144 Potassium 5.5 H Chloride 106 Carbon Dioxide 32.0 H Anion Gap 6 L BUN 68 H Creatinine 1.1 Estim Creat Clear Calc Not Performed. eGFR > 60 BUN/Creatinine Ratio 62 H Glucose 71 L Calculated Osmolality 304 H Calcium 8.9 Corrected Calcium 9.5 Magnesium 2.2 Total Bilirubin 0.2 L AST 30 ALT 17 Alkaline Phosphatase 84 Lactate Dehydrogenase 207 Troponin I 0.024 B-Natriuretic Peptide 406 H Total Protein 6.4 Albumin 3.3 L Globulin 3.1 Albumin/Globulin Ratio 1.1 L Procalcitonin 0.20 08/07/24 08/07/24 08/07/24 05:09 05:13 11:49 WBC 8.3 RBC 2.75 L Hgb 7.2 L Hct 24.8 L MCV 90 MCH 26.2 MCHC 29.0 L RDW Std Deviation 56.1 H Plt Count 152 Neut % (Auto) 71 Lymph % (Auto) 16 [place] % (Auto) 11 Eos % (Auto) 2 Baso % (Auto) 0 Neut # (Auto) 5.9 Lymph # (Auto) 1.3 [place] # (Auto) 0.9 H Eos # (Auto) 0.2 Baso # (Auto) 0.0 Immature Gran # (Auto) 0.04 H Absolute Nucleated RBC 0.00 Immature Gran % 1 H Nucleated RBC % 0 PT INR APTT Puncture Site Left Brachial ABG pH 7.30 L ABG pCO2 71 H* ABG pO2 176 H D ABG HCO3 35 H ABG O2 Saturation 100 H ABG Base Excess 7 H Oxygen Liter Flow FiO2 21 Sodium 148 H Potassium 5.2 H 4.8 Chloride 112 H Carbon Dioxide 30.4 Anion Gap 6 L BUN 58 H Creatinine 1.0 Estim Creat Clear Calc 116.5 eGFR > 60 BUN/Creatinine Ratio 58 H Glucose 75 Calculated Osmolality 309 H Calcium 9.3 Corrected Calcium Magnesium Total Bilirubin AST ALT Alkaline Phosphatase Lactate Dehydrogenase Troponin I B-Natriuretic Peptide Total Protein Albumin Globulin Albumin/Globulin Ratio Procalcitonin ABG Interpretation ABG results: 08/06/24 08/06/24 08/07/24 20:12 23:59 05:09 ABG pH 7.26 L 7.31 L 7.30 L ABG pCO2 75 H* 66 H 71 H* ABG pO2 65 L 88 D 176 H D ABG HCO3 34 H 33 H 35 H ABG O2 Saturation 91 97 100 H ABG Base Excess 6 H 5 H 7 H Quality Measures Quality Measures none Assessment & Plan Assessment Current Active Medications: Generic Name Dose Route Start Last Admin Trade Name Freq PRN Reason Stop Dose Admin Acetaminophen 650 mg 08/06/24 22:14 Acetaminophen 325 Mg Tablet PO 09/05/24 22:13 Q6H PRN Fever >101.5 Albuterol/Ipratropium 3 ml 08/06/24 23:00 08/07/24 11:13 Albuterol/Ipratropium (Duoneb) Rt Radha 3 Ml Nebu INH 09/05/24 22:59 3 ml Q4HRRT RINA Administration Amlodipine Besylate 10 mg 08/07/24 09:00 08/07/24 10:50 Amlodipine Besylate 5 Mg Tablet PO 09/06/24 08:59 10 mg QDAY RINA Administration Apixaban 5 mg 08/07/24 09:00 08/07/24 10:51 Apixaban 2.5 Mg Tablet PO 08/28/24 08:59 5 mg BID RINA Administration Ascorbic Acid 500 mg 08/07/24 09:00 08/07/24 10:51 Ascorbic Acid 250 Mg Tablet PO 09/06/24 08:59 500 mg BID RINA Administration Atorvastatin Calcium 80 mg 08/07/24 21:00 Atorvastatin Calcium 20 Mg Tablet PO 09/06/24 20:59 HS [facility] Carvedilol 6.25 mg 08/07/24 08:00 08/07/24 10:52 Carvedilol 3.125 Mg Tablet PO 09/06/24 07:59 6.25 mg BIDWM RINA Administration Clopidogrel Bisulfate 75 mg 08/07/24 09:00 08/07/24 10:51 Clopidogrel Bisulfate 75 Mg Tablet PO 09/06/24 08:59 75 mg QDAY RINA Administration Dextrose 25 ml 08/06/24 22:17 08/07/24 01:55 Dextrose 50%-Water Inj 50 Ml Syringe IV 09/05/24 22:16 25 ml Q15MIN PRN Administration BG 50-70 responsive npo pt Dextrose 50 ml 08/06/24 22:17 Dextrose 50%-Water Inj 50 Ml Syringe IV 09/05/24 22:16 Q15MIN PRN BG <50 OR BG <70 & pt unresponsive Furosemide 40 mg 08/07/24 09:00 08/07/24 10:48 Furosemide Inj 10 Mg/Ml 4ml Vial IVP 09/06/24 08:59 40 mg QDAY RINA Administration Glucagon 1 mg 08/06/24 22:17 Glucagon Inj 1 Mg Vial IM Q15MIN PRN BG <70, and no IV access Insulin Human Regular 0 unit 08/07/24 07:30 08/07/24 07:34 Insulin Hum Regular 1 Unit/0.01 Ml (Per Unit) SC 09/06/24 07:29 Not Given AC [facility] Protocol Prednisone 40 mg 08/07/24 09:00 08/07/24 10:52 Prednisone 20 Mg Tablet PO 08/13/24 22:23 40 mg QDAY RINA Administration Plan 54-year-old male with history of HFpEF (EF 55 to 60%, 04/24/24), coronary artery disease status post stent placement, insulin-dependent diabetes mellitus, COPD, CVA, carotid artery stenosis status post bilateral endarterectomy 2018, PE on Eliquis, hypertension, obstructive sleep apnea, cirrhosis, chronic back pain on opioids at home, and history of vertebral hemangioma status postradiation therapy was admitted to the hospital on 08/06/2024 due to acute metabolic encephalopathy likely secondary to acute on chronic hypercapnic respiratory failure in the setting of obstructive sleep apnea with medical noncompliance to CPAP machine. #Acute metabolic encephalopathy likely secondary to treatment #Acute on chronic hypercapnic respiratory failure in the setting of #Obstructive sleep apnea with noncompliance with CPAP #COPD ? Patient came in with altered mental status, but afterwards was alert oriented x 3, but was still drowsy and lethargic on admission. ? Initial ABG in the ED showed pH of 7.26, pCO2 75 ? Patient has had multiple hospital readmissions due to similar symptoms as he has not been compliant with his CPAP machine at night. Plan: ? Will continue with BiPAP today ? BiPAP at night ? ABG ordered for 2 hours after patient is on BiPAP ? DuoNebs every 4 ? Prednisone 40 mg daily ? Will continue to monitor #Hyperkalemia ? Patient came in initially with potassium of 5.5 ? Potassium today was 5.2 after Kayexalate x 1 was given overnight and repeat at 9 am was 4.8 Plan: ? Continue to monitor #HFpEF (EF 55 to 60% on 04/2024) #CAD s/p stent ?Patient does not appear to be on heart failure exacerbation at this time ? BNP was 406 on admission ? Does have some 1+ lower extremity edema Plan: ? Lasix 40 daily ? Carvedilol 6.25 mg twice daily ? Strict FREIDA's ? Fluid restrictions #DM2 ? A1c on 07/30/2024 was 6.8 Plan: ? ISS ? Hypoglycemia protocol ordered ? Accu-Cheks ? Will continue monitor #Coronary artery stenosis s/p bilateral endarterectomy on 2018 #CVA #Hx of PE ? Will continue Plavix and 5 mg daily, Eliquis 5 mg twice daily, and atorvastatin 80 mg at bedtime #Hx of hypertension ? Will continue with carvedilol 6.25 twice daily and amlodipine 10 mg daily #Hx of chronic back pain on opiates at home #Hx of vertebral hemangioma status post radiation therapy ? Gave morphine 1 mg x 1 today for back pain ? Will start patient on his home dose [place] once she is off BiPAP. Disposition: Patient seen in telemetry pending improvement in hypercapnia, continue Bipap. Diet: carb consistent GI prophylaxis: Protonix DVT prophylaxis: Eliquis Code: Full Case disclosed with Attending Dr. Wayne and My senior Dr. Walsh PGY3. Ryan Fuentes PGY1 Attending Provider Attestation/Addendum I have discussed and was present for the essential components of the history, physical examination, diagnosis, and treatment plan with the resident. I agree with the patient's care as documented by the resident and amended herein by me. Jah Wayne, DO. Patient seen and evaluated this AM. Patient is a new patient admitted overnight with a significant past medical history of HFpEF, CAD post stent placement, DM2, COPD, CVA, bilateral endarterectomy in 2018, PE presently on Eliquis, hypertension, CAROLYN, cirrhosis, CBT on opioids, history of vertebral hemangioma status post postradiation therapy in July 2024 and medical noncompliance, presented with acute encephalopathy likely secondary to acute on chronic hypercapnic respiratory failure in the setting of CAROLYN and noncompliance with the CPAP machine. Patient has been difficult overnight, refusing BiPAP, urinating on the floor, and generally not adhering to the necessary treatment prescribed. Patient may need further sedation for BiPAP use. Patient also placed on prednisone overnight by admitting team, will also continue Lasix 40 mg daily and home meds as appropriate. To include Plavix, Eliquis, atorvastatin, Coreg and amlodipine. Likely DC in 1 to 2 days pending patient compliance and overall improvement. Although this document has been carefully reviewed, there may still be some phonetic and other typographical errors. These errors are purely grammatical due to imperfections in the software program and should not be construed in any way to compromise the substance of the patient's medical care during this visit.
[2024-08-07 15:22] LABS: Base Excess 9 (-3-3); HCO3 36 mEq/L (20-26); Inspired O2, VO2 Liters 5 L/min; Inspired Oxygen, FIO2 21 %; O2 Saturation 83 % (91-98); PCO2 69 mmHg (32.0-48.0); pH, Arterial 7.32 (7.35-7.45)
[2024-08-07 15:30] LABS: Allen Test Performed/OK; PO2 51 mmHg (83-108); Puncture Site Right Radial
--- NOTE | 2024-08-07 15:58 | PC.SS ---
Rounding: New pt, on Bi-pap
[2024-08-07] MEDS: HALOPERIDOL LACT INJ 5 MG/ML VIAL IV (17:26)
[2024-08-07] MEDS: INSULIN HUM REGULAR 1 UNIT/0.01 ML (PER UNIT) SC (17:52)
[2024-08-07] MEDS: ATORVASTATIN CALCIUM 20 MG TABLET 80 MG PO (20:26)
[2024-08-07 20:32] LABS: Collection Type, Urine Clean Catch
[2024-08-07 20:48] LABS: Bilirubin,Urine Negative (Negative); Blood,Urine 3+ (Negative); Clarity,Urine Clear (Clear/Hazy); Color,Urine Lt-Yellow (Lt Yel-Yel); Glucose, Urine 1+ (Negative); Ketones,Urine Trace (Negative); Leukocyte Esterase,Urine Negative (Negative); Nitrite,Urine Negative (Negative); Protein,Urine 3+ (Neg - Trace); RBC,Urine 268 /hpf (0-3); Specific Gravity,Urine 1.016 (1.001-1.035); Squamous Epithelial Cell,Urine 1 /hpf (0-5); Urobilinogen,Urine Negative mg/dL (0.0-1.0); WBC,Urine 28 /hpf (0-5)
[2024-08-07 20:51] LABS: Amphetamine/Methamp Scrn,U Negative (Negative); Barbiturate Screen,Urine Negative (Negative); Benzodiazepines Screen,Urine Negative (Negative); Benzoylecgonine Screen, Ur Negative (Negative); Fentanyl Screen,Urine Negative (Negative); Opiate Screen,Urine Positive (Negative); THC Screen,Urine Negative (Negative)
[2024-08-07] MEDS: HALOPERIDOL LACT INJ 5 MG/ML VIAL IM (21:48)
[2024-08-07 22:14] LABS: Base Excess 7 (-3-3); HCO3 34 mEq/L (20-26); Inspired Oxygen, FIO2 100 %; O2 Saturation 100 % (91-98); PCO2 61 mmHg (32.0-48.0); PO2 413 mmHg (83-108); pH, Arterial 7.35 (7.35-7.45)
[2024-08-07 22:19] LABS: Allen Test Performed/OK; Puncture Site Right Radial
[2024-08-07] MEDS: LORazepam 2 MG/ML VIAL IVP (22:22)
--- NOTE | 2024-08-07 23:08 | PD.RESEVENT ---
Documentation for date of: 08/07/24 Event Note Event Note: Patient had rapid response called around 10 PM for SpO2 being in the low 70s, patient is being noncompliant with BiPAP, was given Haldol IM 5mg x 1 earlier today, continues to have poor compliance with BiPAP. Patient was placed on bilateral wrist restraints, as patient was confused, will be given IV Ativan 2 mg x 1. Ordered stat ABG. ABG results significant for pH 7.35 pCO2 61, patient chronic CO2 retainer, pCO2 back to baseline. Decision made to discontinue BiPAP for now and start patient on nasal cannula. Case discussed with Attending Dr. Vines. Miguel Viveros PGY1 Disclaimer: This note was dictated by speech recognition. Minor errors in clinical trial head may be present due to voice recognition software.
--- NOTE | 2024-08-07 23:15 | PD.RESCONSUL ---
HPI Data of Consult Requesting Physician: Óscar Vines MD Admitting Provider: Óscar Vines MD Attending Provider: Óscar Vines MD Primary Care Provider: Franklyn Tony MD Consult Narrative History of present illness: Mr. Fisher is a 54-year-old male with history of HFpEF (EF 55 to 60%, 04/24/24), coronary artery disease status post stent placement, insulin-dependent diabetes mellitus, CVA, carotid artery stenosis status post bilateral endarterectomy 2018, PE on Eliquis, hypertension, obstructive sleep apnea, cirrhosis, history of vertebral hemangioma status postradiation therapy who presented to [facility] emergency department on 08/06/2024 from [facility] facility for altered mental status. Patient had a rapid response due to desaturation while on BiPAP. Patient was nibbling his BiPAP and pulling out his IVs as well. Patient received Haldol which did not seem to help, and was also given Ativan which seemed to calm him for few minutes. Patient continued to to be agitated and desaturating so was decided to admit patient to ICU for Precedex drip. cc:: cc: Óscar Vines MD Exam Vital Signs Temp Pulse Resp BP Pulse Ox O2 Del Method O2 Flow Rate 98.2 F 85 22 H 196/93 H 99 Nasal Cannula 4 08/07/24 20:00 08/07/24 22:13 08/07/24 22:13 08/07/24 20:00 08/07/24 22:13 08/07/24 20:00 08/07/24 22:13 FiO2 60 08/07/24 22:13 Narrative Exam General: Obese middle-aged male. AAO x 1. Lungs: Decreased breath sounds with mild wheezing, No accessory muscle use. Hard to auscultate due to body habitus. Cardio: Regular rate and rhythm, no murmurs, rubs, or gallops. Abdomen: Soft, non-tender, no palpable masses, peristalsis present, no guarding or rebound. Extremities: Trace bilateral lower extremity edema Skin: No rashes, no lesions, warm to touch. Psych: Not cooperative, hallucinating dog in room. Results Labs 08/07/24 05:13 08/07/24 11:49 Labs: Short CBC 08/07/24 Range/Units 05:13 WBC 8.3 (3.8-10.6) Thou/mm3 Hgb 7.2 L (13.5-16.0) g/dL Hct 24.8 L (41.0-53.0) % Plt Count 152 (140-440) Thou/mm3 BMP 08/07/24 08/07/24 05:13 11:49 Sodium 148 H Potassium 5.2 H 4.8 Chloride 112 H Carbon Dioxide 30.4 BUN 58 H Creatinine 1.0 Glucose 75 Calcium 9.3 Urine 08/07/24 Range/Units 20:15 Urine Color Lt-Yellow (Lt Yel-Yel) Urine Clarity Clear (Clear/Hazy) Urine pH 7.0 (5.0-7.0) Ur Specific [place] 1.016 (1.001-1.035) Urine Protein 3+ A (Neg - Trace) Urine Glucose (UA) 1+ A (Negative) ABG Interpretation ABG results: 08/06/24 08/06/24 08/07/24 20:12 23:59 05:09 ABG pH 7.26 L 7.31 L 7.30 L ABG pCO2 75 H* 66 H 71 H* ABG pO2 65 L 88 D 176 H D ABG HCO3 34 H 33 H 35 H ABG O2 Saturation 91 97 100 H ABG Base Excess 6 H 5 H 7 H 08/07/24 08/07/24 15:13 22:08 ABG pH 7.32 L 7.35 ABG pCO2 69 H 61 H ABG pO2 51 L* D 413 H D ABG HCO3 36 H 34 H ABG O2 Saturation 83 L 100 H ABG Base Excess 9 H 7 H Quality Measures Quality Measures none Medications Home Medications and Allergies Home Medications ?Medication ?Instructions ?Recorded ?Confirmed ?Type hydrocodone 10 mg-acetaminophen 1 tab PO Q4H PRN pain, mild 10/22/23 08/07/24 History 325 mg tablet pregabalin 150 mg capsule 150 mg PO TID 10/22/23 08/07/24 History morphine 15 mg tablet,extended 15 mg PO QDAY PRN Pain, Severe 01/14/24 07/31/24 History release apixaban 5 mg tablet 5 mg PO BID 06/25/24 08/07/24 History ascorbic acid (vitamin C) 500 mg 500 mg PO BID 06/25/24 08/07/24 History tablet (Vitamin C) atorvastatin 80 mg tablet 80 mg PO QPM 06/25/24 08/07/24 History budesonide-formoterol HFA 160 2 puff inhalation BID 06/25/24 07/31/24 History mcg-4.5 mcg/actuation aerosol inhaler vitamin B complex-vitamin C-folic 1 tab PO QDAY 06/25/24 08/07/24 History acid 0.8 mg tablet ([place]) insulin lispro 100 unit/mL See Protocol subcut AC 07/16/24 07/31/24 History subcutaneous pen (Humalog KwikPen (U-100) Insulin) loperamide 2 mg tablet 2 mg PO Q6H PRN Diarrhea 07/16/24 08/07/24 History albuterol sulfate 90 mcg/actuation 2 inh inhalation Q4H PRN shortness 08/07/24 08/07/24 History breath activated powder inhaler of breath or wheezing (ProAir RespiClick) amlodipine 10 mg tablet 10 mg PO DAILY 08/07/24 08/07/24 History aspirin 81 mg tablet,delayed 81 mg PO QDAY 08/07/24 08/07/24 History release (Ecotrin Low Strength) bisacodyl 10 mg rectal suppository 10 mg CO QDAY PRN constipation 08/07/24 08/07/24 History (Dulcolax (bisacodyl)) carvedilol 6.25 mg tablet 6.25 mg PO BID 08/07/24 08/07/24 History clopidogrel 75 mg tablet (Plavix) 75 mg PO QDAY 08/07/24 08/07/24 History cyclobenzaprine 10 mg tablet 10 mg PO Q12H PRN muscle spasm 08/07/24 08/07/24 History ergocalciferol (vitamin D2) 1,250 50,000 unit PO QWEEK 08/07/24 08/07/24 History mcg (50,000 unit) capsule furosemide 40 mg tablet 40 mg PO DAILY 08/07/24 08/07/24 History insulin glargine 100 unit/mL 50 unit subcut QPM 08/07/24 08/07/24 History subcutaneous cartridge ipratropium 0.5 mg-albuterol 3 mg 3 ml inhalation BID PRN shortness 08/07/24 08/07/24 History (2.5 mg base)/3 mL nebulization of breath soln lorazepam 2 mg tablet 2 mg PO HS 08/07/24 08/07/24 History losartan 50 mg tablet 100 mg PO QDAY 08/07/24 08/07/24 History Held on 08/01/24. Instructions: Resume on 08/08/24. Follow up with PCP for potassium level before restarting magnesium hydroxide 400 mg/5 mL 30 ml PO Q72H PRN constipation 08/07/24 08/07/24 History oral suspension (Milk of Magnesia) meclizine 25 mg tablet 25 mg PO DAILY PRN nausea and 08/07/24 08/07/24 History vomiting oxybutynin chloride 5 mg tablet 5 mg PO BID 08/07/24 08/07/24 History sitagliptin phosphate 100 mg 100 mg PO DAILY 08/07/24 08/07/24 History tablet (Januvia) Allergies Allergy/AdvReac Type Severity Reaction Status Date / Time ketorolac Allergy Severe TONGUE Verified 07/26/23 22:55 SWELLS UP escitalopram Allergy Intermediate Rash Verified 06/28/24 10:52 Visit Medications Acetaminophen (Acetaminophen 325 Mg Tablet) 650 mg PO Q6H PRN PRN Reason: Fever >101.5 Stop: 09/05/24 22:13 Albuterol/Ipratropium (Albuterol/Ipratropium (Duoneb) Rt Radha 3 Ml Nebu) 3 ml INH Q4HRRT RINA Stop: 09/05/24 22:59 Last Admin: 08/07/24 22:12 Dose: 3 ml Amlodipine Besylate (Amlodipine Besylate 5 Mg Tablet) 10 mg PO QDAY RINA Stop: 09/06/24 08:59 Last Admin: 08/07/24 10:50 Dose: 10 mg Apixaban (Apixaban 2.5 Mg Tablet) 5 mg PO BID RINA Stop: 08/28/24 08:59 Last Admin: 08/07/24 20:26 Dose: 5 mg Ascorbic Acid (Ascorbic Acid 250 Mg Tablet) 500 mg PO BID RINA Stop: 09/06/24 08:59 Last Admin: 08/07/24 20:26 Dose: 500 mg Atorvastatin Calcium (Atorvastatin Calcium 20 Mg Tablet) 80 mg PO HS RINA Stop: 09/06/24 20:59 Last Admin: 08/07/24 20:26 Dose: 80 mg Carvedilol (Carvedilol 3.125 Mg Tablet) 6.25 mg PO BIDWM RINA Stop: 09/06/24 07:59 Last Admin: 08/07/24 18:37 Dose: 6.25 mg Clopidogrel Bisulfate (Clopidogrel Bisulfate 75 Mg Tablet) 75 mg PO QDAY RINA Stop: 09/06/24 08:59 Last Admin: 08/07/24 10:51 Dose: 75 mg Dextrose (Dextrose 50%-Water Inj 50 Ml Syringe) 25 ml IV Q15MIN PRN PRN Reason: BG 50-70 responsive npo pt Stop: 09/05/24 22:16 Last Admin: 08/07/24 01:55 Dose: 25 ml Dextrose (Dextrose 50%-Water Inj 50 Ml Syringe) 50 ml IV Q15MIN PRN PRN Reason: BG <50 OR BG <70 & pt unresponsive Stop: 09/05/24 22:16 Furosemide (Furosemide Inj 10 Mg/Ml 4ml Vial) 40 mg IVP QDAY RINA Stop: 09/06/24 08:59 Last Admin: 08/07/24 10:48 Dose: 40 mg Glucagon (Glucagon Inj 1 Mg Vial) 1 mg IM Q15MIN PRN PRN Reason: BG <70, and no IV access Dexmedetomidine/Sodium Chloride (Precedex Ivpb) 400 mcg in 100 mls @ 7.35 mls/hr IV .[id number] PRN; Protocol PRN Reason: Per PROTOCOL Stop: 09/06/24 23:09 Insulin Human Regular (Insulin Hum Regular 1 Unit/0.01 Ml (Per Unit)) 0 unit SC [facility]; Protocol Stop: 09/06/24 07:29 Last Admin: 08/07/24 17:52 Dose: 1 unit Pantoprazole Sodium (Pantoprazole Inj 40 Mg Vial) 40 mg IV QDAY RINA Stop: 09/07/24 08:59 Prednisone (Prednisone 20 Mg Tablet) 40 mg PO QDAY RINA Stop: 08/13/24 22:23 Last Admin: 08/07/24 10:52 Dose: 40 mg Discontinued Medications Furosemide (Furosemide 40 Mg Tablet) 40 mg PO QDAY RINA Stop: 09/06/24 08:59 Furosemide (Furosemide Inj 10 Mg/Ml 4ml Vial) 40 mg IVP X1 ONE Stop: 08/06/24 22:25 Last Admin: 08/07/24 01:41 Dose: 40 mg Haloperidol Lactate (Haloperidol Lact Inj 5 Mg/Ml Vial) 5 mg IV X1 ONE Stop: 08/07/24 16:37 Last Admin: 08/07/24 17:26 Dose: 5 mg Haloperidol Lactate (Haloperidol Lact Inj 5 Mg/Ml Vial) 5 mg IV X1 ONE Stop: 08/07/24 21:15 Haloperidol Lactate (Haloperidol Lact Inj 5 Mg/Ml Vial) 5 mg IM X1 ONE Stop: 08/07/24 21:42 Last Admin: 08/07/24 21:48 Dose: 5 mg Dexmedetomidine/Sodium Chloride (Precedex Ivpb) 400 mcg in 100 mls @ 7.258 mls/hr IV .[id number] PRN; Protocol PRN Reason: Per PROTOCOL Stop: 09/05/24 23:51 Lorazepam (Lorazepam 2 Mg/Ml Vial) 2 mg IM X1 ONE Stop: 08/07/24 22:12 Last Admin: 08/07/24 22:23 Dose: Not Given Lorazepam (Lorazepam 2 Mg/Ml Vial) 2 mg IVP X1 ONE Stop: 08/07/24 22:18 Last Admin: 08/07/24 22:22 Dose: 2 mg Morphine Sulfate (Morphine Sulf Inj 10 Mg/Ml Vial) 1 mg IVP X1 ONE Stop: 08/07/24 08:24 Last Admin: 08/07/24 10:50 Dose: 1 mg Sodium Polystyrene Sulfonate (Sod Polystyrene Sulfon Susp 15 Gm/60 Ml Btl) 30 gm PO X1 ONE Stop: 08/06/24 22:25 Last Admin: 08/07/24 01:43 Dose: 30 gm Assessment & Plan Plan Mr. Fisher is a 54-year-old male with history of HFpEF (EF 55 to 60%, 04/24/24), coronary artery disease status post stent placement, insulin-dependent diabetes mellitus, CVA, carotid artery stenosis status post bilateral endarterectomy 2018, PE on Eliquis, hypertension, obstructive sleep apnea, cirrhosis, history of vertebral hemangioma status postradiation therapy who presented to [facility] emergency department due to acute on chronic hypoxic hypercarbic respiratory failure. Patient upgraded to ICU due to increased combativeness and encephalopathy requiring Precedex drip. Neuro #Acute encephalopathy Metabolic VS toxic CO2 elevated on ABG Patient given IV Ativan during rapid response Patient will be started on Precedex along with BiPAP for CO2 retention Will avoid benzodiazepines Follow-up VBG's #History of CVA Continue Plavix and statin Cardiac #History of HFpEF #History of CAD #History of hypertension Patient on IV Lasix 40 daily Strict ins and outs Fluid restrictions Continue Coreg, amlodipine, and statin Pulm #Acute on chronic hypoxic hypercapnic respiratory failure #History of COPD #History of sleep apnea/OHS Patient started on BiPAP while on Precedex drip due to noncompliance Follow-up VBG's Continue with breathing treatments Continue with steroids Start patient on azithromycin Renal #Hyperosmolar hyperchloremic hypernatremia Likely secondary to Lasix Will continue monitoring daily Encourage p.o. water intake with max daily fluid intake of 2000 cc Endo #History of diabetes mellitus Continue sliding scale insulin Heme #History of DVT Continue Eliquis 5 twice daily #Anemia of chronic disease Continue to monitor daily H&H No signs of active bleeding GI #History of cirrhosis Currently stable Platelets within normal limits Avoid hepatotoxic agents ID Currently stable GI prophylaxis: Protonix DVT prophylaxis: Eliquis CODE STATUS: Full code Case discussed with attending physician Dr. Mohinder Gibbs MD PGY3 Attending Provider Attestation/Addendum Pt was evaluated and plan formulated together with the housestaff team. I have reviewed the residents note above and agree with most of its content. Please refer to the residents note for additional details.
[2024-08-07] MEDS: DEXMEDETOMIDINE 200 MCG IVPB 200 MCG/50 ML BOTTLE 7.35 MCG IV (23:20)
[2024-08-08] VITALS (98 sets, daily range): BP systolic 145–209; BP diastolic 65–104; PULSE 56–87; RESP 4–24; TEMP 35.9–37.1; O2SAT 94–100; BMI 49.3; BMI 49.1
[2024-08-08] MEDS: DEXMEDETOMIDINE 200 MCG IVPB 200 MCG/50 ML BOTTLE 22.051 MCG IV ×2 (00:07→02:35)
--- NOTE | 2024-08-08 01:19 | PC.RT ---
RT went to assess pt at 21:18, per DR. Viveros place pt back on bipap, attempted to place pt on bipap, refusing taking off nasal cannula and complaining of sob, DR. Viveros and DR. Lockhart at bedside talking to pt, pt kept refusing bipap and nasal canula spo2 remained at 100% untill pt kept wanting to sit up, when [facility] called pt being combative nurses assisted with pt reposition, able to place pt on bipap, fio2 increased to 10% for about 2 min spo2 dropped to the 70s, improved once pt settle down to 90s, post abg bipap taken off and pt place on 4L nasal cannula. RT in room until 22:23.
[2024-08-08] MEDS: AZITHROMYCIN INJ 250 MG in SODIUM CHLORIDE 0.9% 250 ML 250 ML IV (01:34)
[2024-08-08 01:54] LABS: Base Excess, Venous 8 (-3-3); O2 Saturation, Venous 93 % (96-97); PCO2, Venous 55 mmHg (36-56); PO2, Venous 65 mmHg (15-58); pH, Venous 7.39 (7.33-7.66)
[2024-08-08] MEDS: hydrALAZINE INJ 20 MG/ML VIAL 10 MG IV ×2 (02:04→06:26)
[2024-08-08] MEDS: ALBUTEROL/IPRATROPIUM (Duoneb) RT SOL 3 ML NEBU INH ×6 (02:05→22:20)
[2024-08-08 05:18] LABS: Basophils % (Auto) 0 % (0-2.5); Eosinophils % (Auto) 0 % (0-10); Immature Granulocytes % (Auto) 1 % (0-0); Immature Granulocytes Auto 0.03 Thou/mm3 (0.00-0.00); Lymphocytes # (Auto) 0.4 Thou/mm3 (1.0-4.8); Lymphocytes % (Auto) 6 % (10-50); Mean Corpuscular HGB Conc 30.4 g/dl (31.0-37.0); Mean Corpuscular Volume 86 fL (80-100); Monocytes # (Auto) 0.3 Thou/mm3 (0.0-0.8); Monocytes % (Auto) 5 % (0-12); Neutrophils # (Auto) 5.4 Thou/mm3 (1.8-7.7); Neutrophils % (Auto) 89 % (37-80); Nucleated Red Blood Cell % 0 /100 WBC (0); Platelet Count 152 Thou/mm3 (140-440); RDW Standard Deviation 52.1 fL (35.1-43.9); Red Blood Count 2.92 Miln/mm3 (4.50-5.90); White Blood Count 6.1 Thou/mm3 (3.8-10.6)
[2024-08-08 05:19] LABS: Hemoglobin 7.6 g/dL (13.5-16.0)
[2024-08-08] MEDS: DEXMEDETOMIDINE 200 MCG IVPB 200 MCG/50 ML BOTTLE 44.103 MCG IV ×2 (05:20→13:35)
[2024-08-08] MEDS: LORazepam 2 MG/ML VIAL IVP (05:28)
[2024-08-08 05:34] LABS: Anion Gap 7 (7-16); BUN/Creatinine Ratio 49 Ratio (12-20); Blood Urea Nitrogen 49 mg/dL (9-23); Carbon Dioxide 30.3 mMol/L (20.0-31.0); Chloride 106 mMol/L (98-107); Estimated Creatinine Clearance 116.5 mL/min (>60); Glucose 258 mg/dL (74-106); Osmolality,Calculated 306 (275-295); Potassium 5.2 mMol/L (3.4-5.1); Sodium 143 mMol/L (136-145); eGFR > 60 See Note
[2024-08-08] MEDS: DEXMEDETOMIDINE 200 MCG IVPB 200 MCG/50 ML BOTTLE 51.453 MCG IV ×7 (06:10→12:47)
[2024-08-08] MEDS: NICARDIPINE/NS 20MG IVPB 20 MG/200 ML BAG 50 MG IV ×2 (07:41→16:35)
[2024-08-08 08:10] LABS: Base Excess, Venous 8 (-3-3); O2 Saturation, Venous 100 % (96-97); PCO2, Venous 50 mmHg (36-56); PO2, Venous 149 mmHg (15-58); pH, Venous 7.43 (7.33-7.66)
[2024-08-08] MEDS: FUROSEMIDE INJ 10 MG/ML 4ML VIAL 40 MG IVP (08:14)
[2024-08-08] MEDS: PANTOPRAZOLE INJ 40 MG VIAL IV (08:14)
[2024-08-08] MEDS: INSULIN HUM REGULAR 1 UNIT/0.01 ML (PER UNIT) SC ×3 (08:20→18:01)
[2024-08-08 08:29] LABS: Ammonia 13 uMol/L (11-32)
--- NOTE | 2024-08-08 08:50 | XR_ITS ---
Examination: AP chest single view TECHNIQUE: Portable upright AP chest single view Exam date and time: August 08, 2024 0900 hours Comparison August 06, 2024 FINDINGS: Moderate heart failure Moderate enlargement cardiac contour Prominent vascular congestion Perihilar basilar edema with bilateral pleural effusions IMPRESSION: Moderate heart failure
[2024-08-08 09:20] LABS: B-Type Natriuretic Peptide 706 pg/mL (0-100)
[2024-08-08 09:40] LABS: D-Dimer 901 ng/mL (<600)
[2024-08-08] MEDS: NICARDIPINE/NS 20MG IVPB 20 MG/200 ML BAG 100 MG IV (09:51)
[2024-08-08] MEDS: INSULIN GLARGINE (Lantus) 5 UNIT/0.05 ML (PER 5 UNITS) 20 UNIT SC (10:37)
[2024-08-08] MEDS: BUMETANIDE INJ 0.25 MG/ML VIAL 4 ML 2 MG IVP ×2 (10:45→21:56)
[2024-08-08] MEDS: NICARDIPINE/NS 20MG IVPB 20 MG/200 ML BAG 75 MG IV (12:44)
[2024-08-08] MEDS: COLLAGENASE OINT 30 GM TUBE TOP (13:31)
--- NOTE | 2024-08-08 13:38 | ESPR_ITS ---
<Statement entered by Candi Hollingsworth MD - 08/09/24 08:12> TOTAL CC TIME: 45 MIN I saw and evaluated the patient. I reviewed the resident?s note and agree with findings and plan as documented in the resident?s note. Upon my evaluation, this patient had a high probability of imminent or life- threatening deterioration due to acute hypercapnic resp failure, which required my direct attention, intervention, and personal management. This time is exclusive of time spent on procedures, which are documented separately if performed. multifactorial due to MO, possible OHS, chronic sedative meds, acute pulm edema from CHF wean IPAP and start diuresis wean precedex repeaet ABG improved Documentation for date of: 08/08/24 Subjective Subjective Interval history: Gordon Fisher is a 54-y/o male with history of HFpEF (EF 55 to 60%, 04/24/24), CAD s/p stenting, insulin-dependent diabetes mellitus, CVA, carotid artery stenosis s/p bilateral endarterectomy 2018, PE on lifetime Eliquis, hypertension, CAROLYN, cirrhosis, history of vertebral hemangioma s/p radiation therapy who presented on 08/06/2024 from SNF for encephalopathy. RR due to desaturation while on BiPAP - found to be nibbling BiPAP and pulling out IVs. Received Haldol and Ativan that calmed him only for few minutes. As patient continued to be agitated and desaturate, deicion was made to admit to ICU for precedex drip. 08/08: Seen and examined at bedside in the ICU. Continues to be sedated on precedex drip while on BiPAP with settings of IPAP 18,EPAP 8, and FiO2 25% and saturating at 96%. AM VBG showed pH 7.43, P CO2 50, and pO2 149. Attempted to wean off of Precedex overnight but patient again became agitated. CXR in a.m. showed bilateral, bibasilar pleural effusions and noted to have minute ventilation of 11-12. Thus, will diurese with IV Lasix and if ventilation improves well attempt to wean off of Precedex again. During dayshift, total of 1.45 L urine output. Daughters updated at bedside and also stated that patient had gained 38 lbs within the last week per SNF nurse. Also state that patient is likely noncompliant with CPAP at night. Exam Vital Signs Temp Pulse Resp BP Pulse Ox O2 Del Method O2 Flow Rate 98.7 F 59 L 14 150/73 H 96 Nasal Cannula 4 08/08/24 12:00 08/08/24 13:00 08/08/24 13:00 08/08/24 13:00 08/08/24 13:00 08/07/24 20:00 08/07/24 22:13 FiO2 25 08/08/24 10:18 Narrative Exam General: sedated and mechanically ventilated on BiPAP HEENT: NC/AT, mucous membranes moist, bilateral sclera anicteric Cardiovascular: regular rate and rhythm, S1/S2 present, no murmurs appreciated Pulmonary: decreased breath sounds bilaterally likely due to body habitus Abdominal: obese, soft, non-tender, non-distended, no rebound/guarding Musculoskeletal: 1+ bilateral lower extremity edema Skin: warm and dry, intact, no rashes Objective Labs 08/08/24 04:31 08/08/24 04:31 Labs: Laboratory Results - last 24 hr 08/07/24 08/07/24 08/07/24 15:13 20:15 22:08 WBC RBC Hgb Hct MCV MCH MCHC RDW Std Deviation Plt Count Neut % (Auto) Lymph % (Auto) Wilcox % (Auto) Eos % (Auto) Baso % (Auto) Neut # (Auto) Lymph # (Auto) Wilcox # (Auto) Eos # (Auto) Baso # (Auto) Immature Gran # (Auto) Absolute Nucleated RBC Immature Gran % Nucleated RBC % D-Dimer Puncture Site Right Radial Right Radial ABG pH 7.32 L 7.35 ABG pCO2 69 H 61 H ABG pO2 51 L* D 413 H D ABG HCO3 36 H 34 H ABG O2 Saturation 83 L 100 H ABG Base Excess 9 H 7 H VBG pH VBG pCO2 VBG pO2 VBG O2 Sat (Chris) VBG Base Excess Oxygen Liter Flow 5 FiO2 21 100 Sodium Potassium Chloride Carbon Dioxide Anion Gap BUN Creatinine Estim Creat Clear Calc eGFR BUN/Creatinine Ratio Glucose Calculated Osmolality Calcium Ammonia B-Natriuretic Peptide Ur Collection Type Clean Catch Urine Color Lt-Yellow Urine Clarity Clear Urine pH 7.0 Ur Specific [place] 1.016 Urine Protein 3+ A Urine Glucose (UA) 1+ A Urine Ketones Trace Urine Blood 3+ A Urine Nitrite Negative Urine Bilirubin Negative Urine Urobilinogen (Auto) Negative Ur Leukocyte Esterase Negative Urine RBC 268 H Urine WBC 28 H Ur Squamous Epith Cells 1 Urine Bacteria None Urine Opiates Screen Positive A Urine Fentanyl Screen Negative Ur Barbiturates Screen Negative U Amphetamin/Meth Scrn Negative U Benzodiazepines Scrn Negative U Cocaine Metab Screen Negative U Marijuana (THC) Screen Negative 08/08/24 08/08/24 08/08/24 01:35 04:31 07:39 WBC 6.1 RBC 2.92 L Hgb 7.6 L Hct 25.0 L MCV 86 MCH 26.0 MCHC 30.4 L RDW Std Deviation 52.1 H Plt Count 152 Neut % (Auto) 89 H Lymph % (Auto) 6 L Wilcox % (Auto) 5 Eos % (Auto) 0 Baso % (Auto) 0 Neut # (Auto) 5.4 Lymph # (Auto) 0.4 L Wilcox # (Auto) 0.3 Eos # (Auto) 0.0 Baso # (Auto) 0.0 Immature Gran # (Auto) 0.03 H Absolute Nucleated RBC 0.00 Immature Gran % 1 H Nucleated RBC % 0 D-Dimer 901 H Puncture Site ABG pH ABG pCO2 ABG pO2 ABG HCO3 ABG O2 Saturation ABG Base Excess VBG pH 7.39 7.43 VBG pCO2 55 50 VBG pO2 65 H 149 H D VBG O2 Sat (Chris) 93 L 100 H VBG Base Excess 8 H 8 H Oxygen Liter Flow FiO2 Sodium 143 Potassium 5.2 H Chloride 106 Carbon Dioxide 30.3 Anion Gap 7 BUN 49 H Creatinine 1.0 Estim Creat Clear Calc 116.5 eGFR > 60 BUN/Creatinine Ratio 49 H Glucose 258 H D Calculated Osmolality 306 H Calcium 9.0 Ammonia 13 B-Natriuretic Peptide 706 H* Ur Collection Type Urine Color Urine Clarity Urine pH Ur Specific [place] Urine Protein Urine Glucose (UA) Urine Ketones Urine Blood Urine Nitrite Urine Bilirubin Urine Urobilinogen (Auto) Ur Leukocyte Esterase Urine RBC Urine WBC Ur Squamous Epith Cells Urine Bacteria Urine Opiates Screen Urine Fentanyl Screen Ur Barbiturates Screen U Amphetamin/Meth Scrn U Benzodiazepines Scrn U Cocaine Metab Screen U Marijuana (THC) Screen ABG Interpretation ABG results: 08/06/24 08/06/24 08/07/24 20:12 23:59 05:09 ABG pH 7.26 L 7.31 L 7.30 L ABG pCO2 75 H* 66 H 71 H* ABG pO2 65 L 88 D 176 H D ABG HCO3 34 H 33 H 35 H ABG O2 Saturation 91 97 100 H ABG Base Excess 6 H 5 H 7 H VBG pH VBG pCO2 VBG pO2 VBG Base Excess 08/07/24 08/07/24 08/08/24 15:13 22:08 01:35 ABG pH 7.32 L 7.35 ABG pCO2 69 H 61 H ABG pO2 51 L* D 413 H D ABG HCO3 36 H 34 H ABG O2 Saturation 83 L 100 H ABG Base Excess 9 H 7 H VBG pH 7.39 VBG pCO2 55 VBG pO2 65 H VBG Base Excess 8 H 08/08/24 07:39 ABG pH ABG pCO2 ABG pO2 ABG HCO3 ABG O2 Saturation ABG Base Excess VBG pH 7.43 VBG pCO2 50 VBG pO2 149 H D VBG Base Excess 8 H Quality Measures Quality Measures none Assessment & Plan Assessment Current Active Medications: Generic Name Dose Route Start Last Admin Trade Name Freq PRN Reason Stop Dose Admin Acetaminophen 650 mg 08/06/24 22:14 Acetaminophen 325 Mg Tablet PO 09/05/24 22:13 Q6H PRN Fever >101.5 Albuterol/Ipratropium 3 ml 08/06/24 23:00 08/08/24 10:18 Albuterol/Ipratropium (Duoneb) Rt Radha 3 Ml Nebu INH 09/05/24 22:59 3 ml Q4HRRT RINA Administration Amlodipine Besylate 10 mg 08/07/24 09:00 08/08/24 08:19 Amlodipine Besylate 5 Mg Tablet PO 09/06/24 08:59 Not Given QDAY RINA Apixaban 5 mg 08/07/24 09:00 08/08/24 08:19 Apixaban 2.5 Mg Tablet PO 08/28/24 08:59 Not Given BID RINA Ascorbic Acid 500 mg 08/07/24 09:00 08/08/24 08:19 Ascorbic Acid 250 Mg Tablet PO 09/06/24 08:59 Not Given BID RINA Atorvastatin Calcium 80 mg 08/07/24 21:00 08/07/24 20:26 Atorvastatin Calcium 20 Mg Tablet PO 09/06/24 20:59 80 mg HS RINA Administration Carvedilol 6.25 mg 08/07/24 08:00 08/08/24 08:18 Carvedilol 3.125 Mg Tablet PO 09/06/24 07:59 Not Given BIDWM RINA Clopidogrel Bisulfate 75 mg 08/07/24 09:00 08/08/24 08:19 Clopidogrel Bisulfate 75 Mg Tablet PO 09/06/24 08:59 Not Given QDAY RINA Collagenase 0 gm 08/08/24 12:00 08/08/24 13:31 Collagenase Oint 30 Gm Tube TOP 09/07/24 11:59 1 appln QDAY RINA Administration Dextrose 25 ml 08/06/24 22:17 08/07/24 01:55 Dextrose 50%-Water Inj 50 Ml Syringe IV 09/05/24 22:16 25 ml Q15MIN PRN Administration BG 50-70 responsive npo pt Dextrose 50 ml 08/06/24 22:17 Dextrose 50%-Water Inj 50 Ml Syringe IV 09/05/24 22:16 Q15MIN PRN BG <50 OR BG <70 & pt unresponsive Furosemide 40 mg 08/07/24 09:00 08/08/24 08:14 Furosemide Inj 10 Mg/Ml 4ml Vial IVP 09/06/24 08:59 40 mg QDAY RINA Administration Glucagon 1 mg 08/06/24 22:17 Glucagon Inj 1 Mg Vial IM Q15MIN PRN BG <70, and no IV access Hydralazine HCl 10 mg 08/08/24 06:15 Hydralazine Inj 20 Mg/Ml Vial IV 09/07/24 01:30 Q6HR PRN SBP> 170/90 Dexmedetomidine/Sodium Chloride 200 mcg in 50 mls @ 7.35 mls/hr 08/08/24 04:11 08/08/24 13:35 Precedex Ivpb IV 09/06/24 23:40 1.2 mcg/kg/hr .Q6H49M PRN 44.103 mls/hr Per PROTOCOL Administration Protocol 0.2 MCG/KG/HR Nicardipine/Sodium Chloride 20 mg in 200 mls @ 50 mls/hr 08/08/24 07:41 08/08/24 13:36 Cardene Ivpb IV 09/07/24 07:19 5 mg/hr .Q4H PRN 50 mls/hr PER PROTOCOL Titration Protocol 5 MG/HR Azithromycin 500 mg/ Sodium 250 mls @ 250 mls/hr 08/08/24 21:00 Chloride IV 08/15/24 20:59 HS RINA Insulin Glargine 20 unit 08/08/24 09:00 08/08/24 10:37 Insulin Glargine (Lantus) 5 Unit/0.05 Ml (Per 5 Units) SC 09/07/24 08:59 20 unit QDAY RINA Administration Insulin Human Regular 0 unit 08/07/24 07:30 08/08/24 12:39 Insulin Hum Regular 1 Unit/0.01 Ml (Per Unit) SC 09/06/24 07:29 2 unit AC RINA Administration Protocol Pantoprazole Sodium 40 mg 08/08/24 09:00 08/08/24 08:14 Pantoprazole Inj 40 Mg Vial IV 09/07/24 08:59 40 mg QDAY RINA Administration Prednisone 40 mg 08/07/24 09:00 08/08/24 08:19 Prednisone 20 Mg Tablet PO 08/13/24 22:23 Not Given QDAY RINA Plan Gordon Fisher is a 54-y/o male with history of HFpEF (EF 55 to 60%, 04/24/24), CAD s/p stenting, insulin-dependent diabetes mellitus, CVA, carotid artery stenosis s/p bilateral endarterectomy 2018, PE on lifetime Eliquis, hypertension, CAROLYN, cirrhosis, history of vertebral hemangioma s/p radiation therapy who presented on 08/06/2024 from SNF for encephalopathy. RR due to desaturation while on BiPAP - found to be nibbling BiPAP and pulling out IVs. Received Haldol and Ativan that calmed him only for few minutes. As patient continued to be agitated and desaturate, deicion was made to admit to ICU for precedex drip. Neurological #Acute encephalopathy, secondary to acute on chronic hypercapnic respiratory failure secondary to ? CHF exacerbation VBG 08/08 at 0740: pH 7.43, pCO2 50, P O2 149 BUN elevated, but < 90, thus unlikely uremic encephalopathy Ammonia within normal limits, thus unlikely hepatic encephalopathy Goal is to obtain better BP control and improved ventilation prior to weaning off precedex drip Given IV Ativan during RR and started on Precedex along with BiPAP for CO2 retention ? Continue BiPAP ? If ventilation improves after diuresis, can wean down on Precedex ? Continue diuresis to help improve ventilation ? Follow-up VBG in [place]. #History of CVA ? Plavix and statin held due to sedation Cardiovascular #? Acute decompensated CHF exacerbation #HFpEF (EF 55 to 60%, 04/2024) ? Continue diuresis as above ? Strict I's and O's, fluid restriction #Hypertensive urgency #Hypertension ? Nicardipine drip #CAD status post stents ? Coreg, amlodipine, statin held due to sedation Pulmonary #Acute on chronic hypercapnic respiratory failure Due to agitation and noncompliance, placed on Precedex drip for BiPAP tolerance. ? Continue BiPAP as above ? Follow-up VBG in a.m. #History of PE Noted to have history of PE dating back to 2019 and per chart review has had multiple and thus, is likely on lifelong anticoagulation D-dimer on 08/08 elevated at 901 ? Eliquis 5 mg p.o. twice daily held due to sedation #History of COPD ? DuoNebs every 4 hours scheduled ? Prednisone 40 mg p.o. daily ? Azithromycin 250 mg IV daily #History of CAROLYN/OHS ? Continue BiPAP Gastrointestinal #History of cirrhosis, stable ? Continue to monitor, avoid hepatotoxic agents Renal #Hyperosmolar hypernatremia, resolved #Hyperkalemia ? On DuoNebs and insulin ? Kayexalate as needed Endocrine #Insulin-dependent diabetes mellitus ? SSI every 6 hours ? Glargine 20 units daily #Chronic normocytic anemia, stable No active signs of bleeding ? Continue to monitor Infectious disease No acute/active disease Hospital management: Disposition: sedated in ICU Drips: nicardipine, precedex Fluids: none Diet: NPO Lines: peripheral IV GI prophylaxis: Pantoprazole IV Wright: Placed 08/07 CODE STATUS: full code ----- Plan discussed with attending physician Dr. Todd Sanchez MD PGY-1 Internal Medicine
[2024-08-08] MEDS: DEXMEDETOMIDINE 200 MCG IVPB 200 MCG/50 ML BOTTLE 36.752 MCG IV (15:02)
--- NOTE | 2024-08-08 15:02 | PC.SS ---
TAX ANALYST conducted bedside contact with the patient conduct initial assessment and to discuss discharge planning.? At bedside with patient was daughter, Gregoria Sutton .? Daughter provided information for assessment and discharge planning.? Patient is a resident of [facility].? Patient utilizes a wheelchair for mobility.? Patient utilizes oxygen at facility.? Patient also utilizes a C-PAP at night.? Patient requires assistance with completion of ADL?s.? Patient?s medical surrogate decision maker is daughter, Gregoria Sutton.? Patient?s PCP is Dr. Tony.? Patient possess history of high blood pressure and diabetes.? Discharge plan is for the patient to return home.? Patient will require ambulance transport upon discharge.? TAX ANALYST discussed POLST form with patient?s daughter.? Daughter would like to discuss POLST form with the patient once patient is alert/oriented.? Patient is full code.? No further intervention required at this time, outreach and education social worker will be available to address any further concerns.? Next of Kin: Gregoria Sutton D/C Plan: SNF
[2024-08-08] MEDS: DEXMEDETOMIDINE 200 MCG IVPB 200 MCG/50 ML BOTTLE 29.402 MCG IV ×5 (16:28→23:34)
[2024-08-08] MEDS: AZITHROMYCIN INJ 500 MG in SODIUM CHLORIDE 0.9% 250 ML 250 ML 250 MG IV (21:16)
[2024-08-08 22:45] LABS: Alanine Aminotransferase 16 U/L (10-49); Albumin, Serum 3.1 gm/dL (3.5-5.0); Alkaline Phosphatase 83 U/L (46-116); Anion Gap 5 (7-16); Aspartate Amino Transferase 29 U/L (0-34); BUN/Creatinine Ratio 60 Ratio (12-20); Bilirubin,Total 0.2 mg/dL (0.3-1.2); Blood Urea Nitrogen 48 mg/dL (9-23); Calcium 9.3 mg/dL (8.3-10.6); Carbon Dioxide 33.5 mMol/L (20.0-31.0); Chloride 112 mMol/L (98-107); Creatinine (Component) 0.8 mg/dL (0.6-1.3); Estimated Creatinine Clearance 145.7 mL/min (>60); Glucose 136 mg/dL (74-106); Osmolality,Calculated 312 (275-295); Phosphorous 3.3 mg/dL (2.4-5.1); Potassium 4.4 mMol/L (3.4-5.1); Sodium 150 mMol/L (136-145); Total Protein 6.1 gm/dL (5.7-8.2); eGFR > 60 See Note
[2024-08-08] MEDS: NICARDIPINE/NS 20MG IVPB 20 MG/200 ML BAG 25 MG IV (23:34)
[2024-08-09] VITALS (74 sets, daily range): BP systolic 111–189; BP diastolic 64–110; PULSE 49–86; RESP 4–99; TEMP 36.2–36.6; O2SAT 91–100; BMI 47.8; BMI 11.0
[2024-08-09] MEDS: DEXMEDETOMIDINE 200 MCG IVPB 200 MCG/50 ML BOTTLE 29.402 MCG IV ×4 (02:00→08:36)
[2024-08-09] MEDS: ALBUTEROL/IPRATROPIUM (Duoneb) RT SOL 3 ML NEBU INH ×5 (02:40→22:00)
[2024-08-09] MEDS: NICARDIPINE/NS 20MG IVPB 20 MG/200 ML BAG 125 MG IV (04:05)
[2024-08-09 04:57] LABS: Base Excess, Venous 9 (-3-3); O2 Saturation, Venous 100 % (96-97); PCO2, Venous 45 mmHg (36-56); PO2, Venous 134 mmHg (15-58); pH, Venous 7.48 (7.33-7.66)
[2024-08-09] MEDS: MIDAZOLAM INJ 1 MG/ML VIAL 2 ML 2 MG IV (04:59)
[2024-08-09 05:04] LABS: Basophils % (Auto) 1 % (0-2.5); Eosinophils # (Auto) 0.2 Thou/mm3 (0.0-0.5); Eosinophils % (Auto) 4 % (0-10); Hematocrit 25.3 % (41.0-53.0); Immature Granulocytes % (Auto) 1 % (0-0); Immature Granulocytes Auto 0.04 Thou/mm3 (0.00-0.00); Lymphocytes # (Auto) 0.9 Thou/mm3 (1.0-4.8); Lymphocytes % (Auto) 15 % (10-50); Mean Corpuscular HGB Conc 30.8 g/dl (31.0-37.0); Mean Corpuscular Hemoglobin 26.3 pg (25.0-35.0); Mean Corpuscular Volume 85 fL (80-100); Monocytes # (Auto) 0.6 Thou/mm3 (0.0-0.8); Monocytes % (Auto) 10 % (0-12); Neutrophils # (Auto) 4.4 Thou/mm3 (1.8-7.7); Neutrophils % (Auto) 71 % (37-80); Nucleated Red Blood Cell % 0 /100 WBC (0); Platelet Count 188 Thou/mm3 (140-440); Red Blood Count 2.97 Miln/mm3 (4.50-5.90); White Blood Count 6.2 Thou/mm3 (3.8-10.6)
[2024-08-09 05:05] LABS: Hemoglobin 7.8 g/dL (13.5-16.0)
[2024-08-09] MEDS: DEXMEDETOMIDINE 200 MCG IVPB 200 MCG/50 ML BOTTLE 36.752 MCG IV (05:08)
[2024-08-09 05:21] LABS: Anion Gap 7 (7-16); BUN/Creatinine Ratio 63 Ratio (12-20); Blood Urea Nitrogen 50 mg/dL (9-23); Calcium 9.2 mg/dL (8.3-10.6); Carbon Dioxide 31.5 mMol/L (20.0-31.0); Chloride 109 mMol/L (98-107); Creatinine (Component) 0.8 mg/dL (0.6-1.3); Estimated Creatinine Clearance 145.7 mL/min (>60); Glucose 112 mg/dL (74-106); Osmolality,Calculated 306 (275-295); Potassium 4.7 mMol/L (3.4-5.1); Sodium 147 mMol/L (136-145); eGFR > 60 See Note
--- NOTE | 2024-08-09 06:00 | XR_ITS ---
Examination: AP chest single view TECHNIQUE: AP portable semiupright chest single view Exam date and time: May 09, 2025 0610 hours Comparison August 08, 2024 INDICATIONS: Worsening shortness of breath. FINDINGS: Moderate heart failure Moderate enlargement cardiac contour Prominent vascular congestion with perihilar basilar edema Significant left pleural fluid Moderate right pleural fluid IMPRESSION: Moderate CHF
[2024-08-09] MEDS: NICARDIPINE/NS 20MG IVPB 20 MG/200 ML BAG 50 MG IV (06:18)
[2024-08-09] MEDS: COLLAGENASE OINT 30 GM TUBE TOP (08:31)
[2024-08-09] MEDS: PANTOPRAZOLE INJ 40 MG VIAL IV (08:33)
[2024-08-09] MEDS: FUROSEMIDE INJ 10 MG/ML 4ML VIAL 40 MG IVP (08:33)
[2024-08-09] MEDS: predniSONE 20 MG TABLET 40 MG PO (09:24)
[2024-08-09] MEDS: APIXABAN 2.5 MG TABLET 5 MG PO ×2 (09:25→20:37)
[2024-08-09] MEDS: CLOPIDOGREL BISULFATE 75 MG TABLET PO (09:25)
[2024-08-09] MEDS: ASCORBIC ACID 250 MG TABLET 500 MG PO ×2 (09:25→20:37)
[2024-08-09] MEDS: carVEDILOL 3.125 MG TABLET 6.25 MG PO (09:25)
[2024-08-09] MEDS: BUMETANIDE INJ 0.25 MG/ML VIAL 4 ML 1 MG IVP ×2 (09:26→20:41)
[2024-08-09] MEDS: amLODIPine BESYLATE 5 MG TABLET 10 MG PO (09:26)
[2024-08-09] MEDS: HYDROcodone/APAP 10/325 TAB PO ×2 (11:18→18:26)
--- NOTE | 2024-08-09 11:28 | ESPR_ITS ---
<Statement entered by Candi Hollingsworth MD - 08/10/24 13:14> TOTAL TIME: 45MINUTES ON DIRECT MEDICAL CARE, MANAGEMENT - COORDINATION AND COUNSELING > 50% OF TOTAL TIME I saw and evaluated the patient. I reviewed the resident?s note and agree with findings and plan as documented in the resident?s note. Weaned off noninvasive positive pressure ventilation easily. Respiratory failure is improving. Pulmonary edema responded well to Bumex. Stable to transfer to [facility] Documentation for date of: 08/09/24 Subjective Subjective Interval history: Gordon Fisher is a 54-y/o male with history of HFpEF (EF 55 to 60%, 04/24/24), CAD s/p stenting, insulin-dependent diabetes mellitus, CVA, carotid artery stenosis s/p bilateral endarterectomy 2018, PE on lifetime Eliquis, hypertension, CAROLYN, cirrhosis, history of vertebral hemangioma s/p radiation therapy who presented on 08/06/2024 from [facility] for encephalopathy. RR due to desaturation while on BiPAP - found to be nibbling BiPAP and pulling out IVs. Received Haldol and Ativan that calmed him only for few minutes. As patient continued to be agitated and desaturate, deicion was made to admit to ICU for precedex drip. 08/08: Seen and examined at bedside in the ICU. Continues to be sedated on precedex drip while on BiPAP with settings of IPAP 18,EPAP 8, and FiO2 25% and saturating at 96%. AM VBG showed pH 7.43, P CO2 50, and pO2 149. Attempted to wean off of Precedex overnight but patient again became agitated. CXR in a.m. showed bilateral, bibasilar pleural effusions and noted to have minute ventilation of 11-12. Thus, will diurese with IV Lasix and if ventilation improves well attempt to wean off of Precedex again. During dayshift, total of 1.45 L urine output. Daughters updated at bedside and also stated that patient had gained 38 lbs within the last week per SNF nurse. Also state that patient is likely noncompliant with CPAP at night. 08/09: Seen and examined at bedside in ICU. Noted to become agitated and confused overnight and was given 2 mg IV push of Versed, otherwise no acute events. BiPAP settings changed such that IPAP decreased from 18 to 10 and was tolerating well with FiO2 of 25%. Thus, given that patient clinically appears to be breathing comfortably on BiPAP, FiO2 requirements are low, improved ventilation, and is hemodynamically stable decision was made to wean off Precedex and put patient on nasal cannula and has since been doing well. Nicardipine drip also DC'd in a.m. and given p.o. antihypertensives given that patient is no longer sedated and off BiPAP. Additionally, continued Eliquis due to history of PE and recommend continuing Bumex 1 mg IV twice daily. Exam Vital Signs Temp Pulse Resp BP Pulse Ox O2 Del Method O2 Flow Rate 98 F 75 16 128/74 91 L Nasal Cannula 3 08/09/24 04:00 08/09/24 11:02 08/09/24 11:02 08/09/24 10:46 08/09/24 11:02 08/07/24 20:00 08/09/24 09:21 FiO2 08/09/24 06:32 Narrative Exam General: ANO x 3, breathing comfortably on nasal cannula, in mild distress due to chronic pain HEENT: NC/AT, mucous membranes moist, bilateral sclera anicteric Cardiovascular: regular rate and rhythm, S1/S2 present, no murmurs appreciated Pulmonary: decreased breath sounds bilaterally likely due to body habitus Abdominal: obese, soft, non-tender, non-distended, no rebound/guarding Musculoskeletal: 1+ bilateral lower extremity edema Skin: warm and dry, intact, no rashes Objective Labs 08/09/24 04:20 08/09/24 04:20 Labs: Laboratory Results - last 24 hr 08/08/24 08/08/24 08/08/24 22:07 22:07 22:07 WBC RBC Hgb Hct MCV MCH MCHC RDW Std Deviation Plt Count Neut % (Auto) Lymph % (Auto) [place] % (Auto) Eos % (Auto) Baso % (Auto) Neut # (Auto) Lymph # (Auto) [place] # (Auto) Eos # (Auto) Baso # (Auto) Immature Gran # (Auto) Absolute Nucleated RBC Immature Gran % Nucleated RBC % VBG pH VBG pCO2 VBG pO2 VBG O2 Sat (Chris) VBG Base Excess Sodium 150 H Potassium 4.4 D Chloride 112 H Carbon Dioxide 33.5 H Anion Gap 5 L BUN 48 H Creatinine 0.8 Estim Creat Clear Calc 145.7 eGFR > 60 BUN/Creatinine Ratio 60 H Glucose 136 H D Calculated Osmolality 312 H Calcium 9.3 Corrected Calcium 10.0 Phosphorus 3.3 Cancelled Magnesium 2.0 Cancelled Total Bilirubin 0.2 L AST 29 ALT 16 Alkaline Phosphatase 83 Total Protein 6.1 Albumin 3.1 L Globulin 3.0 Albumin/Globulin Ratio 1.0 L 08/09/24 04:20 WBC 6.2 RBC 2.97 L Hgb 7.8 L Hct 25.3 L MCV 85 MCH 26.3 MCHC 30.8 L RDW Std Deviation 54.0 H Plt Count 188 D Neut % (Auto) 71 Lymph % (Auto) 15 [place] % (Auto) 10 Eos % (Auto) 4 Baso % (Auto) 1 Neut # (Auto) 4.4 Lymph # (Auto) 0.9 L [place] # (Auto) 0.6 Eos # (Auto) 0.2 Baso # (Auto) 0.0 Immature Gran # (Auto) 0.04 H Absolute Nucleated RBC 0.00 Immature Gran % 1 H Nucleated RBC % 0 VBG pH 7.48 VBG pCO2 45 VBG pO2 134 H VBG O2 Sat (Chris) 100 H VBG Base Excess 9 H Sodium 147 H Potassium 4.7 Chloride 109 H Carbon Dioxide 31.5 H Anion Gap 7 BUN 50 H Creatinine 0.8 Estim Creat Clear Calc 145.7 eGFR > 60 BUN/Creatinine Ratio 63 H Glucose 112 H Calculated Osmolality 306 H Calcium 9.2 Corrected Calcium Phosphorus Magnesium Total Bilirubin AST ALT Alkaline Phosphatase Total Protein Albumin Globulin Albumin/Globulin Ratio ABG Interpretation ABG results: 08/06/24 08/06/24 08/07/24 20:12 23:59 05:09 ABG pH 7.26 L 7.31 L 7.30 L ABG pCO2 75 H* 66 H 71 H* ABG pO2 65 L 88 D 176 H D ABG HCO3 34 H 33 H 35 H ABG O2 Saturation 91 97 100 H ABG Base Excess 6 H 5 H 7 H VBG pH VBG pCO2 VBG pO2 VBG Base Excess 08/07/24 08/07/24 08/08/24 15:13 22:08 01:35 ABG pH 7.32 L 7.35 ABG pCO2 69 H 61 H ABG pO2 51 L* D 413 H D ABG HCO3 36 H 34 H ABG O2 Saturation 83 L 100 H ABG Base Excess 9 H 7 H VBG pH 7.39 VBG pCO2 55 VBG pO2 65 H VBG Base Excess 8 H 08/08/24 08/09/24 07:39 04:20 ABG pH ABG pCO2 ABG pO2 ABG HCO3 ABG O2 Saturation ABG Base Excess VBG pH 7.43 7.48 VBG pCO2 50 45 VBG pO2 149 H D 134 H VBG Base Excess 8 H 9 H Quality Measures Quality Measures none Assessment & Plan Assessment Current Active Medications: Generic Name Dose Route Start Last Admin Trade Name Freq PRN Reason Stop Dose Admin Acetaminophen 650 mg 08/06/24 22:14 Acetaminophen 325 Mg Tablet PO 09/05/24 22:13 Q6H PRN Fever >101.5 Hydrocodone Bitart/Acetaminophen 1 tab 08/09/24 11:13 08/09/24 11:18 Hydrocodone/Apap 10/325 Tab PO 08/14/24 11:12 1 tab Q6HR PRN Administration Pain 4-10 Albuterol/Ipratropium 3 ml 08/06/24 23:00 08/09/24 10:49 Albuterol/Ipratropium (Duoneb) Rt Radha 3 Ml Nebu INH 09/05/24 22:59 3 ml Q4HRRT RINA Administration Amlodipine Besylate 10 mg 08/07/24 09:00 08/09/24 09:26 Amlodipine Besylate 5 Mg Tablet PO 09/06/24 08:59 10 mg QDAY RINA Administration Apixaban 5 mg 08/07/24 09:00 08/09/24 09:25 Apixaban 2.5 Mg Tablet PO 08/28/24 08:59 5 mg BID RINA Administration Ascorbic Acid 500 mg 08/07/24 09:00 08/09/24 09:25 Ascorbic Acid 250 Mg Tablet PO 09/06/24 08:59 500 mg BID RINA Administration Atorvastatin Calcium 80 mg 08/07/24 21:00 08/08/24 22:11 Atorvastatin Calcium 20 Mg Tablet PO 09/06/24 20:59 Not Given HS RINA Bumetanide 1 mg 08/09/24 21:00 Bumetanide Inj 0.25 Mg/Ml Vial 4 Ml IVP 09/08/24 20:59 BID RINA Carvedilol 6.25 mg 08/07/24 08:00 02/19/25 09:25 Carvedilol 3.125 Mg Tablet PO 09/06/24 07:59 6.25 mg BIDWM RINA Administration Clopidogrel Bisulfate 75 mg 08/07/24 09:00 08/09/24 09:25 Clopidogrel Bisulfate 75 Mg Tablet PO 09/06/24 08:59 75 mg QDAY RINA Administration Collagenase 0 gm 08/08/24 12:00 08/09/24 08:31 Collagenase Oint 30 Gm Tube TOP 09/07/24 11:59 1 appln QDAY RINA Administration Dextrose 25 ml 08/06/24 22:17 08/07/24 01:55 Dextrose 50%-Water Inj 50 Ml Syringe IV 09/05/24 22:16 25 ml Q15MIN PRN Administration BG 50-70 responsive npo pt Dextrose 50 ml 08/06/24 22:17 Dextrose 50%-Water Inj 50 Ml Syringe IV 09/05/24 22:16 Q15MIN PRN BG <50 OR BG <70 & pt unresponsive Furosemide 40 mg 08/07/24 09:00 08/09/24 08:33 Furosemide Inj 10 Mg/Ml 4ml Vial IVP 09/06/24 08:59 40 mg QDAY RINA Administration Glucagon 1 mg 08/06/24 22:17 Glucagon Inj 1 Mg Vial IM Q15MIN PRN BG <70, and no IV access Hydralazine HCl 10 mg 08/08/24 06:15 Hydralazine Inj 20 Mg/Ml Vial IV 09/07/24 01:30 Q6HR PRN SBP> 170/90 Dexmedetomidine/Sodium Chloride 200 mcg in 50 mls @ 7.35 mls/hr 08/08/24 04:11 08/09/24 10:19 Precedex Ivpb IV 09/06/24 23:40 0 mcg/kg/hr .Q6H49M PRN 0 mls/hr Per PROTOCOL Titration Protocol 0.2 MCG/KG/HR Azithromycin 500 mg/ Sodium 250 mls @ 250 mls/hr 08/08/24 21:00 08/08/24 21:16 Chloride IV 08/15/24 20:59 250 mls/hr HS RINA Administration Insulin Glargine 20 unit 08/08/24 09:00 08/09/24 09:06 Insulin Glargine (Lantus) 5 Unit/0.05 Ml (Per 5 Units) SC 09/07/24 08:59 Not Given QDAY RINA Insulin Human Regular 0 unit 08/09/24 00:00 08/09/24 06:27 Insulin Hum Regular 1 Unit/0.01 Ml (Per Unit) SC 09/08/24 00:00 Not Given Q6HR RINA Protocol Pantoprazole Sodium 40 mg 08/08/24 09:00 08/09/24 08:33 Pantoprazole Inj 40 Mg Vial IV 09/07/24 08:59 40 mg QDAY RINA Administration Prednisone 40 mg 08/07/24 09:00 08/09/24 09:24 Prednisone 20 Mg Tablet PO 08/13/24 22:23 40 mg QDAY RINA Administration Plan Gordon Fisher is a 54-y/o male with history of HFpEF (EF 55 to 60%, 04/24/24), CAD s/p stenting, insulin-dependent diabetes mellitus, CVA, carotid artery stenosis s/p bilateral endarterectomy 2018, PE on lifetime Eliquis, hypertension, CAROLYN, cirrhosis, history of vertebral hemangioma s/p radiation therapy who presented on 08/06/2024 from SNF for encephalopathy. RR due to desaturation while on BiPAP - found to be nibbling BiPAP and pulling out IVs. Received Haldol and Ativan that calmed him only for few minutes. As patient continued to be agitated and desaturate, deicion was made to admit to ICU for precedex drip. On 08/09, patient tapered off Precedex drip and off BiPAP and tolerating nasal cannula well and is stable to be downgraded back to medical floors. Neurological #Acute encephalopathy, secondary to acute on chronic hypercapnic respiratory failure secondary to ? CHF exacerbation, resolved VBG on 08/08 and 08/09 showed normal CO2 levels BUN elevated, but < 90, thus unlikely uremic encephalopathy Ammonia within normal limits, thus unlikely hepatic encephalopathy Goal is to obtain better BP control and improve ventilation via diuresis prior to weaning off precedex drip ? On 08/09, patient tapered off Precedex drip and tolerating nasal cannula well ? Continue diuresis with 1 mg IV Bumex twice daily #History of CVA ? Resume Plavix and statin Cardiovascular #? Acute decompensated CHF exacerbation #HFpEF (EF 55 to 60%, 04/2024) ? Continue diuresis as above ? Strict I's and O's, fluid restriction #Hypertensive urgency, resolved #Hypertension ? Resume Coreg and amlodipine ? Hydralazine 10 mg IV as needed #CAD status post stents ? Resume Coreg, amlodipine, statin Pulmonary #Acute on chronic hypercapnic respiratory failure, resolved Due to agitation and noncompliance, placed on Precedex drip for BiPAP tolerance but has since been tapered off and pCO2 on VBG within normal limits #History of PE Noted to have history of PE dating back to 2019 and per chart review has had multiple and thus, is likely on lifelong anticoagulation D-dimer on 08/08 elevated at 901 ? Continue Eliquis 5 mg p.o. twice daily #History of COPD ? DuoNebs every 4 hours scheduled ? Azithromycin 250 mg IV daily #History of CAROLYN/OHS ? Continue BiPAP HS Gastrointestinal No acute/active disease Renal #Hyperosmolar hypernatremia, resolved #Hyperkalemia ? On DuoNebs and insulin ? Kayexalate as needed Endocrine #Insulin-dependent diabetes mellitus Diet restarted on 08/09 ? SSI ACHS ? Glargine 20 units daily #Chronic normocytic anemia, stable No active signs of bleeding ? Continue to monitor Infectious disease No acute/active disease Hospital management: Disposition: on nasal cannula, saturating well and stable to return to floors Drips: none Fluids: none Diet: cardiac Lines: peripheral IV GI prophylaxis: Pantoprazole IV DVT prophylaxis: Eliquis 5 mg PO BID Wright: Placed 08/07 -> DC on 08/09 CODE STATUS: full code ----- Plan discussed with attending physician Dr. Todd Sanchez MD PGY-1 Internal Medicine
--- NOTE | 2024-08-09 14:15 | ESPR_ITS ---
<Statement entered by Nichelle Walsh MD - 08/09/24 15:33> I discussed with and supervised my co-resident involved in the care of this patient. I agree with the assessment and plan as documented above. Patient seen and examined at bedside. Was upgraded to ICU for precedex while on BIPAP and was on a nicardadrine drip for hypertension. He is off precedex and nicardipine now, saturating on 2L NC. In the ICU he was found to have bilateral pleural effusions. Will go for IR thoracentesis tomorrow. Will continue diuresing patient for his CHF exacerbation and continue his home pain medications as appropriate. Nichelle Walsh MD PGY-3 Documentation for date of: 08/09/24 Subjective Subjective Interval history: Patient was upgraded to the ICU on 08/07/2024 given the patient was noncompliant with his BiPAP and he had a rapid response was called this same night due to desaturation and patient being agitated. In the ICU patient was placed on a Precedex drip along with BiPAP. In the ICU patient was also placed on nicardipine drip due to hypertensive urgency. Patient was also found to have bilateral pleural effusions as well as some pulmonary edema which could indicate that the patient was fluid overloaded. The ICU started the patient on Bumex 1 mg twice daily for diuresis had a total negative balance of 2.4 L while the patient was in the ICU. Today the patient was downgraded back to the medical floors given that he was off the Precedex drip and he was saturating well on nasal cannula. His blood pressure was still mildly elevated this afternoon when patient was assessed therefore we will start patient on losartan and discontinue the patient's carvedilol as patient was bradycardic. Will also give a dose of metolazone 5 mg x 1 today. Will continue patient on amlodipine, Bumex, and losartan. Will also keep the patient on azithromycin until tomorrow and get IR thoracentesis of the left pleural fluid. Exam Vital Signs Temp Pulse Resp BP Pulse Ox O2 Del Method O2 Flow Rate 97.2 F 49 L 21 H 140/85 H 94 L Nasal Cannula 3 08/09/24 12:08/09/24 12:08/09/24 12:08/09/24 12:08/09/24 12:01 08/09/24 12:01 08/09/24 12:01 FiO2 25 08/09/24 06:32 Narrative Exam General: A/O x3, obese, no acute distress Eyes: PERRL, EOMI. Anicteric, vision grossly intact. Ears: No ear pain, no visible ear discharge, Hearing grossly intact. Nose: No visible nasal discharge. Mouth/Throat: Dry mucous membranes, no redness, no lesions. Neck: Neck supple, non-tender, no cervical lymphadenopathy. Lungs: Decreased breath sounds ARMANDO lower lobes and clear Armando Upper lobes, No accessory muscle use. Cardio: Normal S1/S2, regular rhythm, no murmurs, no JVD Abdomen: Soft, non-tender, no palpable masses, peristalsis present, no guarding or rebound. Extremities: Symmetrical, no significant deformities, 1+ peripheral edema anteriorly, non-tender, peripheral pulses presents. Skin: No rashes, no lesions, warm to touch. Neuro: No focal neurological deficits. motor and sensory intact Objective Labs 08/10/24 08:34 08/10/24 04:42 Labs: Laboratory Results - last 24 hr 08/08/24 08/08/24 08/08/24 22:07 22:07 22:07 WBC RBC Hgb Hct MCV MCH MCHC RDW Std Deviation Plt Count Neut % (Auto) Lymph % (Auto) Becker % (Auto) Eos % (Auto) Baso % (Auto) Neut # (Auto) Lymph # (Auto) Becker # (Auto) Eos # (Auto) Baso # (Auto) Immature Gran # (Auto) Absolute Nucleated RBC Immature Gran % Nucleated RBC % VBG pH VBG pCO2 VBG pO2 VBG O2 Sat (Chris) VBG Base Excess Sodium 150 H Potassium 4.4 D Chloride 112 H Carbon Dioxide 33.5 H Anion Gap 5 L BUN 48 H Creatinine 0.8 Estim Creat Clear Calc 145.7 eGFR > 60 BUN/Creatinine Ratio 60 H Glucose 136 H D Calculated Osmolality 312 H Calcium 9.3 Corrected Calcium 10.0 Phosphorus 3.3 Cancelled Magnesium 2.0 Cancelled Total Bilirubin 0.2 L AST 29 ALT 16 Alkaline Phosphatase 83 Total Protein 6.1 Albumin 3.1 L Globulin 3.0 Albumin/Globulin Ratio 1.0 L 08/09/24 04:20 WBC 6.2 RBC 2.97 L Hgb 7.8 L Hct 25.3 L MCV 85 MCH 26.3 MCHC 30.8 L RDW Std Deviation 54.0 H Plt Count 188 D Neut % (Auto) 71 Lymph % (Auto) 15 Becker % (Auto) 10 Eos % (Auto) 4 Baso % (Auto) 1 Neut # (Auto) 4.4 Lymph # (Auto) 0.9 L Becker # (Auto) 0.6 Eos # (Auto) 0.2 Baso # (Auto) 0.0 Immature Gran # (Auto) 0.04 H Absolute Nucleated RBC 0.00 Immature Gran % 1 H Nucleated RBC % 0 VBG pH 7.48 VBG pCO2 45 VBG pO2 134 H VBG O2 Sat (Chris) 100 H VBG Base Excess 9 H Sodium 147 H Potassium 4.7 Chloride 109 H Carbon Dioxide 31.5 H Anion Gap 7 BUN 50 H Creatinine 0.8 Estim Creat Clear Calc 145.7 eGFR > 60 BUN/Creatinine Ratio 63 H Glucose 112 H Calculated Osmolality 306 H Calcium 9.2 Corrected Calcium Phosphorus Magnesium Total Bilirubin AST ALT Alkaline Phosphatase Total Protein Albumin Globulin Albumin/Globulin Ratio ABG Interpretation ABG results: 08/06/24 08/06/24 08/07/24 20:12 23:59 05:09 ABG pH 7.26 L 7.31 L 7.30 L ABG pCO2 75 H* 66 H 71 H* ABG pO2 65 L 88 D 176 H D ABG HCO3 34 H 33 H 35 H ABG O2 Saturation 91 97 100 H ABG Base Excess 6 H 5 H 7 H VBG pH VBG pCO2 VBG pO2 VBG Base Excess 08/07/24 08/07/24 08/08/24 15:13 22:08 01:35 ABG pH 7.32 L 7.35 ABG pCO2 69 H 61 H ABG pO2 51 L* D 413 H D ABG HCO3 36 H 34 H ABG O2 Saturation 83 L 100 H ABG Base Excess 9 H 7 H VBG pH 7.39 VBG pCO2 55 VBG pO2 65 H VBG Base Excess 8 H 08/08/24 08/09/24 07:39 04:20 ABG pH ABG pCO2 ABG pO2 ABG HCO3 ABG O2 Saturation ABG Base Excess VBG pH 7.43 7.48 VBG pCO2 50 45 VBG pO2 149 H D 134 H VBG Base Excess 8 H 9 H Quality Measures Quality Measures none Assessment & Plan Assessment Current Active Medications: Generic Name Dose Route Start Last Admin Trade Name Freq PRN Reason Stop Dose Admin Acetaminophen 650 mg 08/06/24 22:14 Acetaminophen 325 Mg Tablet PO 09/05/24 22:13 Q6H PRN Fever >101.5 Hydrocodone Bitart/Acetaminophen 1 tab 08/09/24 11:13 08/09/24 11:18 Hydrocodone/Apap 10/325 Tab PO 08/14/24 11:12 1 tab Q6HR PRN Administration Pain 4-10 Albuterol/Ipratropium 3 ml 08/06/24 23:00 08/09/24 10:49 Albuterol/Ipratropium (Duoneb) Rt Radha 3 Ml Nebu INH 09/05/24 22:59 3 ml Q4HRRT RINA Administration Amlodipine Besylate 10 mg 08/07/24 09:00 08/09/24 09:26 Amlodipine Besylate 5 Mg Tablet PO 09/06/24 08:59 10 mg QDAY RINA Administration Apixaban 5 mg 08/07/24 09:00 08/09/24 09:25 Apixaban 2.5 Mg Tablet PO 08/28/24 08:59 5 mg BID RINA Administration Ascorbic Acid 500 mg 08/07/24 09:00 08/09/24 09:25 Ascorbic Acid 250 Mg Tablet PO 09/06/24 08:59 500 mg BID RINA Administration Atorvastatin Calcium 80 mg 08/07/24 21:00 08/08/24 22:11 Atorvastatin Calcium 20 Mg Tablet PO 09/06/24 20:59 Not Given HS RINA Bumetanide 1 mg 08/09/24 21:00 Bumetanide Inj 0.25 Mg/Ml Vial 4 Ml IVP 09/08/24 20:59 BID RINA Clopidogrel Bisulfate 75 mg 08/07/24 09:00 08/09/24 09:25 Clopidogrel Bisulfate 75 Mg Tablet PO 09/06/24 08:59 75 mg QDAY RINA Administration Collagenase 0 gm 08/08/24 12:00 08/09/24 08:31 Collagenase Oint 30 Gm Tube TOP 09/07/24 11:59 1 appln QDAY RINA Administration Dextrose 25 ml 08/06/24 22:17 08/07/24 01:55 Dextrose 50%-Water Inj 50 Ml Syringe IV 09/05/24 22:16 25 ml Q15MIN PRN Administration BG 50-70 responsive npo pt Dextrose 50 ml 08/06/24 22:17 Dextrose 50%-Water Inj 50 Ml Syringe IV 09/05/24 22:16 Q15MIN PRN BG <50 OR BG <70 & pt unresponsive Glucagon 1 mg 08/06/24 22:17 Glucagon Inj 1 Mg Vial IM Q15MIN PRN BG <70, and no IV access Hydralazine HCl 10 mg 08/08/24 06:15 Hydralazine Inj 20 Mg/Ml Vial IV 09/07/24 01:30 Q6HR PRN SBP> 170/90 Azithromycin 500 mg/ Sodium 250 mls @ 250 mls/hr 08/08/24 21:00 08/08/24 21:16 Chloride IV 08/15/24 20:59 250 mls/hr HS RINA Administration Insulin Glargine 20 unit 08/08/24 09:00 08/09/24 09:06 Insulin Glargine (Lantus) 5 Unit/0.05 Ml (Per 5 Units) SC 09/07/24 08:59 Not Given QDAY [facility] Insulin Human Regular 0 unit 08/09/24 11:45 08/09/24 12:14 Insulin Hum Regular 1 Unit/0.01 Ml (Per Unit) SC 09/08/24 11:44 Not Given ACHS [facility] Protocol Losartan Potassium 25 mg 08/09/24 14:15 Losartan Potassium 25 Mg Tablet PO 09/08/24 14:14 QDAY RINA Metolazone 5 mg 08/09/24 19:00 Metolazone 2.5 Mg Tablet PO 08/09/24 19:01 X1 ONE Pantoprazole Sodium 40 mg 08/08/24 09:00 08/09/24 08:33 Pantoprazole Inj 40 Mg Vial IV 09/07/24 08:59 40 mg QDAY RINA Administration Plan 54-year-old male with history of HFpEF (EF 55 to 60%, 04/24/24), coronary artery disease status post stent placement, insulin-dependent diabetes mellitus, COPD, CVA, carotid artery stenosis status post bilateral endarterectomy 2018, PE on Eliquis, hypertension, obstructive sleep apnea, cirrhosis, chronic back pain on opioids at home, and history of vertebral hemangioma status postradiation therapy was admitted to the hospital on 08/06/2024 due to acute metabolic encephalopathy likely secondary to acute on chronic hypercapnic respiratory failure in the setting of obstructive sleep apnea with medical noncompliance to CPAP machine. #Acute metabolic encephalopathy, resolved #Acute on chronic hypercapnic respiratory failure in the setting of #Obstructive sleep apnea with noncompliance with CPAP #COPD ? Patient came in with altered mental status, but afterwards was alert oriented x 3, but was still drowsy and lethargic on admission. ? Initial ABG in the ED showed pH of 7.26, pCO2 75 ? Patient has had multiple hospital readmissions due to similar symptoms as he has not been compliant with his CPAP machine at night. Plan: ? BiPAP at night ? DuoNebs every 4 ?O2 administration as needed ? Will continue to monitor #Bilateral pleural effusion ?Chest x-ray showed bilateral pleural effusions with left worse than right ?There appears to be no infectious process at this time as patient has not spiked any fevers nor any WBC elevation. ?Pleural effusion most likely in the setting o heart failure exacerbation Plan: ? Ultrasound-guided thoracentesis ? Pleural studies ordered ? Will continue with azithromycin for now ? Will continue to monitor #Acute decompensated heart failure exacerbation #HFpEF (EF 55 to 60% on 04/2024) #CAD s/p stent ?Patient does not appear to be on heart failure exacerbation at this time ? BNP was 406 on admission and repeat 706 Plan: ?Continue Bumex 1 mg twice daily ? Metolazone 5 mg x 1 today ? Discontinue Lasix 40 daily ? Stopped carvedilol 6.25 mg in the setting of bradycardia ? Strict FREIDA's ? Fluid restrictions #Hypertensive urgency, resolved #Hx of hypertension ?Patient was placed on nicardipine drip in the ICU given that his blood pressure was significantly elevated in the 200s over 100s. Plan: ? Will continue patient on amlodipine 10 mg daily ? Will start patient on losartan 25 mg daily ?Continue Bumex 1 mg twice daily and one-time dose of metolazone 5 mg today ? Hydralazine IV 10 mg every 6 as needed for SBP above 170 ?Will stop carvedilol for now as patient is bradycardic #DM2 ? A1c on 07/30/2024 was 6.8 Plan: ?Glargine 20 units daily ? ISS ? Hypoglycemia protocol ordered ? Accu-Cheks ? Will continue monitor #Coronary artery stenosis s/p bilateral endarterectomy on 2019 #CVA #Hx of PE ? Will continue Plavix 75 mg daily, Eliquis 5 mg twice daily, and atorvastatin 80 mg at bedtime #Hx of chronic back pain on opiates at home #Hx of vertebral hemangioma status post radiation therapy ? Continue [place] 10 and started Morphine SR 15mg qday. #Hyperkalemia, resolved Disposition: Patient seen in ICU, downgraded to medical floors today. Will give metolazone 5mg x1, IR thoracentesis of left pleural fluid, and start losartan as carvedilol will be stopped. Diet: carb consistent GI prophylaxis: Protonix DVT prophylaxis: Eliquis Code: Full Case disclosed with Attending Dr. Parada and My senior Dr. Walsh PGY3. Ryan Fuentes PGY1 Attending Provider Attestation/Addendum I reviewed labs, imaging, EKG, home medications and prior available records. Face to face evaluation was performed by me. I have personally examined the patient and discussed assessment and plan with the IM team. I reviewed the resident note and agree with the plan with exceptions as below. Hyperactive agitation Acute hypercapnic respiratory failure Chronic hypoxic respiratory failure CHF exacerbation/HFpEF EF 55% Bilateral pleural effusion History of CAD status post stent History of PE Morbid obesity Continue BiPAP and wean off as tolerated Continue IV diuresis. Stopped Lasix and continue Bumex. Added metolazone Ordered IR guided pleurocentesis given significant pleural effusion Minimize the use of IV and oral opiates given the high tolerance and drug- seeking behavior
--- NOTE | 2024-08-09 15:19 | PC.NURSE ---
pt reports 10/10 back pain, Dr. Sanchez notified, order received for lidocaine patch, multiple attempts to apple patch unsuccessful, patient refused, patient continues to report 10/10 back pain, Dr. Parada at bedside, no new orders received
[2024-08-09] MEDS: LOSARTAN POTASSIUM 25 MG TABLET PO (15:32)
[2024-08-09] MEDS: Morphine Sulf 15 MG TABCR PO (16:20)
[2024-08-09] MEDS: metOLazone 2.5 MG TABLET 5 MG PO (18:28)
[2024-08-09] MEDS: ATORVASTATIN CALCIUM 20 MG TABLET 80 MG PO (20:36)
[2024-08-09] MEDS: AZITHROMYCIN INJ 500 MG in SODIUM CHLORIDE 0.9% 250 ML 250 ML 250 MG IV (20:48)
[2024-08-09] MEDS: INSULIN HUM REGULAR 1 UNIT/0.01 ML (PER UNIT) SC (20:54)
[2024-08-10] VITALS (19 sets, daily range): BP systolic 125–159; BP diastolic 65–80; PULSE 67–86; RESP 18–96; TEMP 36.2–36.8; O2SAT 97–100
[2024-08-10] MEDS: ALBUTEROL/IPRATROPIUM (Duoneb) RT SOL 3 ML NEBU INH ×6 (03:47→22:36)
[2024-08-10] MEDS: HYDROcodone/APAP 10/325 TAB PO ×2 (05:17→14:46)
[2024-08-10 05:34] LABS: Basophils % (Auto) 0 % (0-2.5); Eosinophils % (Auto) 0 % (0-10); Hematocrit 21.8 % (41.0-53.0); Immature Granulocytes % (Auto) 1 % (0-0); Immature Granulocytes Auto 0.04 Thou/mm3 (0.00-0.00); Lymphocytes # (Auto) 0.8 Thou/mm3 (1.0-4.8); Lymphocytes % (Auto) 13 % (10-50); Mean Corpuscular HGB Conc 31.2 g/dl (31.0-37.0); Mean Corpuscular Hemoglobin 26.4 pg (25.0-35.0); Mean Corpuscular Volume 85 fL (80-100); Monocytes # (Auto) 0.6 Thou/mm3 (0.0-0.8); Monocytes % (Auto) 10 % (0-12); Neutrophils # (Auto) 4.5 Thou/mm3 (1.8-7.7); Neutrophils % (Auto) 76 % (37-80); Nucleated Red Blood Cell % 0 /100 WBC (0); Platelet Count 178 Thou/mm3 (140-440); RDW Standard Deviation 54.1 fL (35.1-43.9); Red Blood Count 2.58 Miln/mm3 (4.50-5.90); White Blood Count 5.9 Thou/mm3 (3.8-10.6)
[2024-08-10 05:46] LABS: Hemoglobin 6.8 g/dL (13.5-16.0)
[2024-08-10 06:26] LABS: Alanine Aminotransferase 16 U/L (10-49); Albumin, Serum 3.1 gm/dL (3.5-5.0); Albumin/Globulin Ratio 1.1 (1.2-2.2); Alkaline Phosphatase 78 U/L (46-116); Anion Gap 11 (7-16); Aspartate Amino Transferase 31 U/L (0-34); BUN/Creatinine Ratio 47 Ratio (12-20); Bilirubin,Total 0.2 mg/dL (0.3-1.2); Blood Urea Nitrogen 47 mg/dL (9-23); Calcium 8.9 mg/dL (8.3-10.6); Calcium (Corrected) 9.6 mg/dL (8.5-10.1); Carbon Dioxide 28.1 mMol/L (20.0-31.0); Chloride 108 mMol/L (98-107); Estimated Creatinine Clearance 114.7 mL/min (>60); Globulin 2.8 gm/dL (2.3-3.5); Glucose 161 mg/dL (74-106); Magnesium 1.9 mg/dL (1.6-2.6); Osmolality,Calculated 307 (275-295); Potassium 4.5 mMol/L (3.4-5.1); Sodium 147 mMol/L (136-145); Total Protein 5.9 gm/dL (5.7-8.2); eGFR > 60 See Note
[2024-08-10] MEDS: INSULIN HUM REGULAR 1 UNIT/0.01 ML (PER UNIT) SC ×2 (07:41→12:19)
[2024-08-10] MEDS: INSULIN GLARGINE (Lantus) 5 UNIT/0.05 ML (PER 5 UNITS) 20 UNIT SC (08:20)
[2024-08-10] MEDS: PANTOPRAZOLE INJ 40 MG VIAL IV (08:27)
[2024-08-10] MEDS: BUMETANIDE INJ 0.25 MG/ML VIAL 4 ML 1 MG IVP ×2 (08:33→20:07)
[2024-08-10] MEDS: ASCORBIC ACID 250 MG TABLET 500 MG PO ×2 (08:34→20:08)
[2024-08-10] MEDS: amLODIPine BESYLATE 5 MG TABLET 10 MG PO (08:34)
[2024-08-10] MEDS: LOSARTAN POTASSIUM 25 MG TABLET PO (08:35)
[2024-08-10] MEDS: Morphine Sulf 15 MG TABCR PO (08:35)
[2024-08-10] MEDS: COLLAGENASE OINT 30 GM TUBE TOP (08:36)
[2024-08-10 08:51] LABS: Hematocrit 20.9 % (41.0-53.0)
[2024-08-10 08:59] LABS: Base Excess 6 (-3-3); HCO3 31 mEq/L (20-26); Inspired Oxygen, FIO2 21 %; O2 Saturation 97 % (91-98); PCO2 43 mmHg (32.0-48.0); PO2 82 mmHg (83-108); pH, Arterial 7.46 (7.35-7.45)
[2024-08-10 09:01] LABS: Allen Test Performed/OK; Puncture Site Right Radial
[2024-08-10 09:01] LABS: Hemoglobin 6.6 g/dL (13.5-16.0)
--- NOTE | 2024-08-10 11:13 | ESPR_ITS ---
<Statement entered by Nichelle Walsh MD - 08/10/24 15:40> I discussed with and supervised my co-resident involved in the care of this patient. I agree with the assessment and plan as documented above. Patient non-compliant with CPAP machine or fluid restriction. Hemoglobin this morning at 6.8, will transfuse unit of blood. Hemoglobin has been hovering in the low 7s, holding eliquis due to drop in Hb. May consider FOBT if hemoglobin persistently drops. Plan for thoracentesis today for pleural effusion. Nichelle Walsh MD PGY-3 Documentation for date of: 08/10/24 Subjective Subjective Interval history: Patient was seen at bedside this morning. Overnight patient did not wear his CPAP machine and he did not comply with his fluid restriction. Patient with yelling at nursing staff 15 did not get more fluids. This morning patient was still not wearing his CPAP and was refusing blood draws given that his hemoglobin which low and a repeat hemoglobin was ordered. Patient stated he did not want to wear the BiPAP, therefore an ABG was done which showed pCO2 of 43 with pH of 7.46. Again told patient that he needed to comply with the BiPAP at night since his sleep apnea can cause his CO2 to go up again and he can become confused again. Patient agreed to having 1 unit of blood transfused on form was signed out after side effects were discussed with him. Patient also had some friction abrasions with mild but in his scrotum most likely from laying on his belly and urinating which could have caused the fraction and the abrasions. Patient will get 1 PRBC transfused today and we will get an ultrasound-guided thoracentesis as well to improve his breathing. Restart patient's carvedilol today to better control his hypertension. Hold his Eliquis in the setting of low hemoglobin. No other complaints at this time. Exam Vital Signs Temp Pulse Resp BP Pulse Ox O2 Del Method O2 Flow Rate 97.2 F 84 22 H 152/70 H 100 Nasal Cannula 3 08/10/24 04:00 08/10/24 10:29 08/10/24 10:29 08/10/24 08:35 08/10/24 10:29 08/10/24 04:00 08/10/24 10:29 FiO2 08/10/24 04:00 Narrative Exam General: A/O x3, obese, no acute distress Eyes: PERRL, EOMI. Anicteric, vision grossly intact. Ears: No ear pain, no visible ear discharge, Hearing grossly intact. Nose: No visible nasal discharge. Mouth/Throat: Dry mucous membranes, no redness, no lesions. Neck: Neck supple, non-tender, no cervical lymphadenopathy. Lungs: Decreased breath sounds ARMANDO lower lobes and clear Armando Upper lobes, No accessory muscle use. Cardio: Normal S1/S2, regular rhythm, no murmurs, no JVD Abdomen: Soft, non-tender, no palpable masses, peristalsis present, no guarding or rebound. Extremities: Symmetrical, no significant deformities, 1+ peripheral edema anteriorly, non-tender, peripheral pulses presents. : small abrasions most likely from friction no bleeding from penis Skin: No rashes, no lesions, warm to touch. Neuro: No focal neurological deficits. motor and sensory intact Objective Labs 08/10/24 08:34 08/10/24 04:42 Labs: Laboratory Results - last 24 hr 08/10/24 08/10/24 08/10/24 04:42 06:48 08:34 WBC 5.9 RBC 2.58 L Hgb 6.8 L* 6.6 L* Hct 21.8 L* 20.9 L* MCV 85 MCH 26.4 MCHC 31.2 RDW Std Deviation 54.1 H Plt Count 178 Neut % (Auto) 76 Lymph % (Auto) 13 Dukes % (Auto) 10 Eos % (Auto) 0 Baso % (Auto) 0 Neut # (Auto) 4.5 Lymph # (Auto) 0.8 L Dukes # (Auto) 0.6 Eos # (Auto) 0.0 Baso # (Auto) 0.0 Immature Gran # (Auto) 0.04 H Absolute Nucleated RBC 0.00 Immature Gran % 1 H Nucleated RBC % 0 Puncture Site ABG pH ABG pCO2 ABG pO2 ABG HCO3 ABG O2 Saturation ABG Base Excess FiO2 Sodium 147 H Potassium 4.5 Chloride 108 H Carbon Dioxide 28.1 Anion Gap 11 BUN 47 H Creatinine 1.0 Estim Creat Clear Calc 114.7 eGFR > 60 BUN/Creatinine Ratio 47 H Glucose 161 H Calculated Osmolality 307 H Calcium 8.9 Corrected Calcium 9.6 Magnesium 1.9 Total Bilirubin 0.2 L AST 31 ALT 16 Alkaline Phosphatase 78 Total Protein 5.9 Albumin 3.1 L Globulin 2.8 Albumin/Globulin Ratio 1.1 L Blood Type AB Positive Antibody Screen NEGATIVE Crossmatch See Detail Blood Bank Wristband ID Yes 08/10/24 08:52 WBC RBC Hgb Hct MCV MCH MCHC RDW Std Deviation Plt Count Neut % (Auto) Lymph % (Auto) Dukes % (Auto) Eos % (Auto) Baso % (Auto) Neut # (Auto) Lymph # (Auto) Dukes # (Auto) Eos # (Auto) Baso # (Auto) Immature Gran # (Auto) Absolute Nucleated RBC Immature Gran % Nucleated RBC % Puncture Site Right Radial ABG pH 7.46 H D ABG pCO2 43 D ABG pO2 82 L D ABG HCO3 31 H ABG O2 Saturation 97 ABG Base Excess 6 H FiO2 21 Sodium Potassium Chloride Carbon Dioxide Anion Gap BUN Creatinine Estim Creat Clear Calc eGFR BUN/Creatinine Ratio Glucose Calculated Osmolality Calcium Corrected Calcium Magnesium Total Bilirubin AST ALT Alkaline Phosphatase Total Protein Albumin Globulin Albumin/Globulin Ratio Blood Type Antibody Screen Crossmatch Blood Bank Wristband ID ABG Interpretation ABG results: 08/06/24 08/06/24 08/07/24 20:12 23:59 05:09 ABG pH 7.26 L 7.31 L 7.30 L ABG pCO2 75 H* 66 H 71 H* ABG pO2 65 L 88 D 176 H D ABG HCO3 34 H 33 H 35 H ABG O2 Saturation 91 97 100 H ABG Base Excess 6 H 5 H 7 H VBG pH VBG pCO2 VBG pO2 VBG Base Excess 08/07/24 08/07/24 08/08/24 15:13 22:08 01:35 ABG pH 7.32 L 7.35 ABG pCO2 69 H 61 H ABG pO2 51 L* D 413 H D ABG HCO3 36 H 34 H ABG O2 Saturation 83 L 100 H ABG Base Excess 9 H 7 H VBG pH 7.39 VBG pCO2 55 VBG pO2 65 H VBG Base Excess 8 H 08/08/24 08/09/24 08/10/24 07:39 04:20 08:52 ABG pH 7.46 H D ABG pCO2 43 D ABG pO2 82 L D ABG HCO3 31 H ABG O2 Saturation 97 ABG Base Excess 6 H VBG pH 7.43 7.48 VBG pCO2 50 45 VBG pO2 149 H D 134 H VBG Base Excess 8 H 9 H Quality Measures Quality Measures none Assessment & Plan Assessment Current Active Medications: Generic Name Dose Route Start Last Admin Trade Name Freq PRN Reason Stop Dose Admin Acetaminophen 650 mg 08/06/24 22:14 Acetaminophen 325 Mg Tablet PO 09/05/24 22:13 Q6H PRN Fever >101.5 Hydrocodone Bitart/Acetaminophen 1 tab 08/09/24 11:13 08/10/24 05:17 Hydrocodone/Apap 10/325 Tab PO 08/14/24 11:12 1 tab Q6HR PRN Administration Pain 4-10 Albuterol/Ipratropium 3 ml 08/06/24 23:00 08/10/24 10:28 Albuterol/Ipratropium (Duoneb) Rt Radah 3 Ml Nebu INH 09/05/24 22:59 3 ml Q4HRRT RINA Administration Amlodipine Besylate 10 mg 08/07/24 09:00 08/10/24 08:34 Amlodipine Besylate 5 Mg Tablet PO 09/06/24 08:59 10 mg QDAY RINA Administration Apixaban 5 mg 08/07/24 09:00 08/10/24 09:52 Apixaban 2.5 Mg Tablet PO 08/28/24 08:59 Not Given BID RINA Ascorbic Acid 500 mg 08/07/24 09:00 08/10/24 08:34 Ascorbic Acid 250 Mg Tablet PO 09/06/24 08:59 500 mg BID RINA Administration Atorvastatin Calcium 80 mg 08/07/24 21:00 08/09/24 20:36 Atorvastatin Calcium 20 Mg Tablet PO 09/06/24 20:59 80 mg HS RINA Administration Bumetanide 1 mg 08/09/24 21:00 08/10/24 08:33 Bumetanide Inj 0.25 Mg/Ml Vial 4 Ml IVP 09/08/24 20:59 1 mg BID RINA Administration Carvedilol 6.25 mg 08/10/24 11:00 Carvedilol 3.125 Mg Tablet PO 09/09/24 10:59 BIDWM RINA Clopidogrel Bisulfate 75 mg 08/07/24 09:00 08/10/24 09:52 Clopidogrel Bisulfate 75 Mg Tablet PO 09/06/24 08:59 Not Given QDAY RINA Collagenase 0 gm 08/08/24 12:00 08/10/24 08:36 Collagenase Oint 30 Gm Tube TOP 09/07/24 11:59 1 appln QDAY RINA Administration Dextrose 25 ml 08/06/24 22:17 08/07/24 01:55 Dextrose 50%-Water Inj 50 Ml Syringe IV 09/05/24 22:16 25 ml Q15MIN PRN Administration BG 50-70 responsive npo pt Dextrose 50 ml 08/06/24 22:17 Dextrose 50%-Water Inj 50 Ml Syringe IV 09/05/24 22:16 Q15MIN PRN BG <50 OR BG <70 & pt unresponsive Glucagon 1 mg 08/06/24 22:17 Glucagon Inj 1 Mg Vial IM Q15MIN PRN BG <70, and no IV access Hydralazine HCl 10 mg 08/08/24 06:15 Hydralazine Inj 20 Mg/Ml Vial IV 09/07/24 01:30 Q6HR PRN SBP> 170/90 Azithromycin 500 mg/ Sodium 250 mls @ 250 mls/hr 08/08/24 21:00 08/09/24 20:48 Chloride IV 08/15/24 20:59 250 mls/hr HS RINA Administration Insulin Glargine 20 unit 08/08/24 09:00 08/10/24 08:20 Insulin Glargine (Lantus) 5 Unit/0.05 Ml (Per 5 Units) SC 09/07/24 08:59 20 unit QDAY RINA Administration Insulin Human Regular 0 unit 08/09/24 11:45 08/10/24 07:41 Insulin Hum Regular 1 Unit/0.01 Ml (Per Unit) SC 09/08/24 11:44 1 unit ACHS RINA Administration Protocol Losartan Potassium 25 mg 08/09/24 14:15 08/10/24 08:35 Losartan Potassium 25 Mg Tablet PO 09/08/24 14:14 25 mg QDAY RINA Administration Morphine Sulfate 15 mg 08/09/24 15:30 08/10/24 08:35 Morphine Sulf 15 Mg Tabcr PO 08/14/24 15:29 15 mg QDAY RINA Administration Protocol Pantoprazole Sodium 40 mg 08/08/24 09:00 08/10/24 08:27 Pantoprazole Inj 40 Mg Vial IV 09/07/24 08:59 40 mg QDAY RINA Administration Plan 54-year-old male with history of HFpEF (EF 55 to 60%, 04/24/24), coronary artery disease status post stent placement, insulin-dependent diabetes mellitus, COPD, CVA, carotid artery stenosis status post bilateral endarterectomy 2018, PE on Eliquis, hypertension, obstructive sleep apnea, cirrhosis, chronic back pain on opioids at home, and history of vertebral hemangioma status postradiation therapy was admitted to the hospital on 08/06/2024 due to acute metabolic encephalopathy likely secondary to acute on chronic hypercapnic respiratory failure in the setting of obstructive sleep apnea with medical noncompliance to CPAP machine. #Acute metabolic encephalopathy, resolved #Acute on chronic hypercapnic respiratory failure in the setting of #Obstructive sleep apnea with noncompliance with CPAP #COPD #Medical Noncompliance ? Patient came in with altered mental status, but afterwards was alert oriented x 3, but was still drowsy and lethargic on admission. ? Initial ABG in the ED showed pH of 7.26, pCO2 75 ? Patient has had multiple hospital readmissions due to similar symptoms as he has not been compliant with his CPAP machine at night. Plan: ? BiPAP at night ? DuoNebs every 4 ?O2 administration as needed ? Will continue to monitor #Bilateral pleural effusion ?Chest x-ray showed bilateral pleural effusions with left worse than right ?There appears to be no infectious process at this time as patient has not spiked any fevers nor any WBC elevation. ?Pleural effusion most likely in the setting o heart failure exacerbation Plan: ? Pending Ultrasound-guided thoracentesis ? Pleural studies ordered ? Will continue with azithromycin for now ? Will continue to monitor #Acute decompensated heart failure exacerbation #HFpEF (EF 55 to 60% on 04/2024) #CAD s/p stent ?Patient does not appear to be on heart failure exacerbation at this time ? BNP was 406 on admission and repeat 706 Plan: ?Continue Bumex 1 mg twice daily ? Restarted carvedilol 6.25 mg ? Strict FREIDA's ? Fluid restrictions #Hypertensive urgency, resolved #Hx of hypertension ?Patient was placed on nicardipine drip in the ICU given that his blood pressure was significantly elevated in the 200s over 100s. Plan: ? Will continue patient on amlodipine 10 mg daily ? Will continue patient on losartan 25 mg daily ?Continue Bumex 1 mg twice daily ? Hydralazine IV 10 mg every 6 as needed for SBP above 170 ?Will restart carvedilol 6.25 BID #DM2 ? A1c on 07/30/2024 was 6.8 Plan: ?Glargine 20 units daily ? ISS ? Hypoglycemia protocol ordered ? Accu-Cheks ? Will continue monitor #Coronary artery stenosis s/p bilateral endarterectomy on 2019 #CVA #Hx of PE ? Will continue Plavix 75 mg daily and atorvastatin 80 mg at bedtime -Held Eliquis 5 mg twice daily in setting of low hemoglobin #Hx of chronic back pain on opiates at home #Hx of vertebral hemangioma status post radiation therapy ? Continue Florence 10 and started Morphine SR 15mg qday. #Hyperkalemia, resolved Disposition: Patient pending IR thoracentesis of left pleural fluid, and will transfuse 1 PRBC. Diet: carb consistent GI prophylaxis: Protonix DVT prophylaxis: Eliquis Code: Full Case disclosed with Attending Dr. Parada and My senior Dr. Walsh PGY3. Ryan Fuentes PGY1 Attending Provider Attestation/Addendum I reviewed labs, imaging, EKG, home medications and prior available records. Face to face evaluation was performed by me. I have personally examined the patient and discussed assessment and plan with the IM team. I reviewed the resident note and agree with the plan with exceptions as below. Acute anemia Hyperactive agitation Acute hypercapnic respiratory failure Chronic hypoxic respiratory failure CHF exacerbation/HFpEF EF 55% Bilateral pleural effusion History of CAD status post stent History of PE Morbid obesity Hemoglobin dropped to 6.8. Ordered 1 PRBC. Held Eliquis Continue BiPAP and wean off as tolerated. Patient has been refusing BiPAP Ordered ABG that showed mild hypoxemia. Continue diuresis as below Continue IV diuresis. Stopped Lasix and continued Bumex. Added metolazone Ordered IR guided pleurocentesis given significant pleural effusion Minimize the use of IV and oral opiates given the high tolerance and drug- seeking behavior
[2024-08-10] MEDS: carVEDILOL 3.125 MG TABLET 6.25 MG PO ×2 (12:18→17:56)
[2024-08-10 13:18] LABS: Path Review Blood Smear Sent to Pathologist
[2024-08-10 17:17] LABS: Hematocrit 23.4 % (41.0-53.0)
[2024-08-10 17:27] LABS: Hemoglobin 7.3 g/dL (13.5-16.0)
[2024-08-10] MEDS: AZITHROMYCIN 250 MG TABLET 500 MG PO (20:08)
[2024-08-10] MEDS: ATORVASTATIN CALCIUM 20 MG TABLET 80 MG PO (20:08)
[2024-08-11] VITALS (20 sets, daily range): BP systolic 151–196; BP diastolic 68–98; PULSE 66–77; RESP 18–23; TEMP 36.2–36.6; O2SAT 95–100
[2024-08-11] MEDS: ALBUTEROL/IPRATROPIUM (Duoneb) RT SOL 3 ML NEBU INH ×2 (02:41→14:29)
[2024-08-11 05:10] LABS: Basophils # (Auto) 0.1 Thou/mm3 (0.0-0.2); Basophils % (Auto) 1 % (0-2.5); Eosinophils # (Auto) 0.2 Thou/mm3 (0.0-0.5); Eosinophils % (Auto) 3 % (0-10); Hematocrit 24.7 % (41.0-53.0); Immature Granulocytes % (Auto) 0 % (0-0); Immature Granulocytes Auto 0.01 Thou/mm3 (0.00-0.00); Lymphocytes # (Auto) 1.3 Thou/mm3 (1.0-4.8); Lymphocytes % (Auto) 20 % (10-50); Mean Corpuscular HGB Conc 30.8 g/dl (31.0-37.0); Mean Corpuscular Hemoglobin 26.8 pg (25.0-35.0); Mean Corpuscular Volume 87 fL (80-100); Monocytes # (Auto) 0.8 Thou/mm3 (0.0-0.8); Monocytes % (Auto) 12 % (0-12); Neutrophils # (Auto) 4.2 Thou/mm3 (1.8-7.7); Neutrophils % (Auto) 64 % (37-80); Nucleated Red Blood Cell % 0 /100 WBC (0); Platelet Count 142 Thou/mm3 (140-440); RDW Standard Deviation 55.8 fL (35.1-43.9); Red Blood Count 2.84 Miln/mm3 (4.50-5.90); White Blood Count 6.5 Thou/mm3 (3.8-10.6)
[2024-08-11 05:11] LABS: Hemoglobin 7.6 g/dL (13.5-16.0)
[2024-08-11 05:23] LABS: INR 1.1 (0.9-1.3); Partial Thromboplastin Time 25.8 Seconds (22.0-36.0); Prothrombin Time 11.9 Seconds (9.0-12.2)
[2024-08-11 05:33] LABS: Alanine Aminotransferase 18 U/L (10-49); Albumin, Serum 3.2 gm/dL (3.5-5.0); Albumin/Globulin Ratio 1.1 (1.2-2.2); Alkaline Phosphatase 78 U/L (46-116); Anion Gap 8 (7-16); Aspartate Amino Transferase 34 U/L (0-34); BUN/Creatinine Ratio 41 Ratio (12-20); Bilirubin,Total 0.3 mg/dL (0.3-1.2); Blood Urea Nitrogen 37 mg/dL (9-23); Calcium 9.3 mg/dL (8.3-10.6); Calcium (Corrected) 9.9 mg/dL (8.5-10.1); Carbon Dioxide 31.3 mMol/L (20.0-31.0); Chloride 107 mMol/L (98-107); Creatinine (Component) 0.9 mg/dL (0.6-1.3); Estimated Creatinine Clearance 127.5 mL/min (>60); Globulin 2.9 gm/dL (2.3-3.5); Glucose 97 mg/dL (74-106); Magnesium 1.9 mg/dL (1.6-2.6); Osmolality,Calculated 299 (275-295); Potassium 3.9 mMol/L (3.4-5.1); Sodium 146 mMol/L (136-145); Total Protein 6.1 gm/dL (5.7-8.2); eGFR > 60 See Note
[2024-08-11] MEDS: carVEDILOL 3.125 MG TABLET 6.25 MG PO ×2 (08:25→17:30)
[2024-08-11] MEDS: amLODIPine BESYLATE 5 MG TABLET 10 MG PO (08:25)
[2024-08-11] MEDS: ASCORBIC ACID 250 MG TABLET 500 MG PO ×2 (08:26→20:50)
[2024-08-11] MEDS: BUMETANIDE INJ 0.25 MG/ML VIAL 4 ML 1 MG IVP ×2 (08:31→20:50)
[2024-08-11] MEDS: CLOPIDOGREL BISULFATE 75 MG TABLET PO (08:32)
[2024-08-11] MEDS: Morphine Sulf 15 MG TABCR PO (08:32)
[2024-08-11] MEDS: LOSARTAN POTASSIUM 25 MG TABLET PO ×2 (08:32→13:31)
[2024-08-11] MEDS: INSULIN GLARGINE (Lantus) 5 UNIT/0.05 ML (PER 5 UNITS) 20 UNIT SC (08:33)
--- NOTE | 2024-08-11 08:48 | PC.SS ---
SS follow up note; SS contacted Latoya from [facility] to determine if patient will need auth to discharge back to [facility]. Latoya reported that patient has auth until tomorrow. SS will discuss discharge date with Team A and contact Latoya to update her in regards to discharge day.
[2024-08-11] MEDS: COLLAGENASE OINT 30 GM TUBE TOP (09:00)
--- NOTE | 2024-08-11 09:00 | XR_ITS ---
Examination: Ultrasound right hemithorax Ultrasound left hemithorax Exam date and time: August 11, 2024 0913 hours INDICATIONS: Difficulty breathing this week, pleural fluid on chest x-ray August 09, 2024 TECHNIQUE AND FINDINGS: Grayscale sonographic images right and left hemithoraces Minimal left trace right pleural fluid IMPRESSION: Minimal left race right pleural fluid
[2024-08-11] MEDS: PANTOPRAZOLE INJ 40 MG VIAL IV (09:11)
[2024-08-11] MEDS: hydrALAZINE INJ 20 MG/ML VIAL 10 MG IV ×3 (12:15→23:29)
--- NOTE | 2024-08-11 12:54 | PC.NURSE ---
Recheck b/p after giving hydralazine. b/p 167//83 hr 73
--- NOTE | 2024-08-11 13:04 | ESPR_ITS ---
Addendum Progress Note Addendum Date of report being addended: 08/11/24 Narrative: Attending's attestation I reviewed labs, imaging, EKG, home medications and prior available records. Face to face evaluation was performed by me. I have personally examined the patient and discussed assessment and plan with the IM team. I reviewed the resident note and agree with the plan with exceptions as below. Acute anemia Hyperactive agitation Acute hypercapnic respiratory failure Chronic hypoxic respiratory failure CHF exacerbation/HFpEF EF 55% Bilateral pleural effusion History of CAD status post stent History of PE Morbid obesity Hypertensive urgency Hemoglobin is a stable posttransfusion. Held Eliquis Continue BiPAP and wean off as tolerated. Patient has been refusing BiPAP. Ensure compliance Ordered ABG that showed mild hypoxemia. Continue diuresis as below Continue IV diuresis. Stopped Lasix and continued Bumex. Added metolazone Ordered IR guided pleurocentesis given significant pleural effusion: Insufficient fluids Minimize the use of IV and oral opiates given the high tolerance and drug- seeking behavior Continue losartan and amlodipine. Continue Coreg. Increased losartan. Monitor BP. May add p.o. hydralazine if remains uncontrolled
--- NOTE | 2024-08-11 13:09 | ESPR_ITS ---
Documentation for date of: 08/11/24 Subjective Subjective Interval history: Patient was seen at bedside this morning. No overnight events. Overnight patient was noncompliant with his BiPAP as well as that with his fluid restrictions. At this time it was told to the patient that he cannot continue with this noncompliance as he will develop hypercapnia again and his blood pressure will remain uncontrolled. At this time patient was AOx3, but his blood pressure was still very uncontrolled therefore will hold patient for 1 more day in the setting of uncontrolled hypertension. Patient also went for arthrocentesis, but was found to have minimal pleural effusions. Possible discharge in the next 24 to 48 hours. Exam Vital Signs Temp Pulse Resp BP Pulse Ox O2 Del Method O2 Flow Rate 97.1 F 72 18 176/84 H 96 Nasal Cannula 2 08/11/24 08:00 08/11/24 12:15 08/11/24 08:00 08/11/24 12:15 08/11/24 08:00 08/11/24 08:00 08/11/24 08:00 FiO2 25 08/10/24 04:00 Narrative Exam General: A/O x3, obese, no acute distress Eyes: PERRL, EOMI. Anicteric, vision grossly intact. Ears: No ear pain, no visible ear discharge, Hearing grossly intact. Nose: No visible nasal discharge. Mouth/Throat: Dry mucous membranes, no redness, no lesions. Neck: Neck supple, non-tender, no cervical lymphadenopathy. Lungs: Decreased breath sounds ARMANDO lower lobes and clear Armando Upper lobes, No accessory muscle use. Cardio: Normal S1/S2, regular rhythm, no murmurs, no JVD Abdomen: Soft, non-tender, no palpable masses, peristalsis present, no guarding or rebound. Extremities: Symmetrical, no significant deformities, 1+ peripheral edema anteriorly, non-tender, peripheral pulses presents. Skin: No rashes, no lesions, warm to touch. Neuro: No focal neurological deficits. motor and sensory intact Objective Labs 08/11/24 04:23 08/11/24 04:23 Labs: Laboratory Results - last 24 hr 08/10/24 08/10/24 08/10/24 04:42 06:48 17:03 WBC RBC Hgb 7.3 L Hct 23.4 L MCV MCH MCHC RDW Std Deviation Plt Count Neut % (Auto) Lymph % (Auto) Bertie % (Auto) Eos % (Auto) Baso % (Auto) Neut # (Auto) Lymph # (Auto) Bertie # (Auto) Eos # (Auto) Baso # (Auto) Immature Gran # (Auto) Absolute Nucleated RBC Immature Gran % Nucleated RBC % Smear Path Review Sent to Pathologist PT INR APTT Sodium Potassium Chloride Carbon Dioxide Anion Gap BUN Creatinine Estim Creat Clear Calc eGFR BUN/Creatinine Ratio Glucose Calculated Osmolality Calcium Corrected Calcium Magnesium Total Bilirubin AST ALT Alkaline Phosphatase Total Protein Albumin Globulin Albumin/Globulin Ratio Crossmatch See Detail 08/11/24 04:23 WBC 6.5 RBC 2.84 L Hgb 7.6 L Hct 24.7 L MCV 87 MCH 26.8 MCHC 30.8 L RDW Std Deviation 55.8 H Plt Count 142 D Neut % (Auto) 64 Lymph % (Auto) 20 Bertie % (Auto) 12 Eos % (Auto) 3 Baso % (Auto) 1 Neut # (Auto) 4.2 Lymph # (Auto) 1.3 Bertie # (Auto) 0.8 Eos # (Auto) 0.2 Baso # (Auto) 0.1 Immature Gran # (Auto) 0.01 H Absolute Nucleated RBC 0.00 Immature Gran % 0 Nucleated RBC % 0 Smear Path Review PT 11.9 INR 1.1 APTT 25.8 Sodium 146 H Potassium 3.9 D Chloride 107 Carbon Dioxide 31.3 H Anion Gap 8 BUN 37 H Creatinine 0.9 Estim Creat Clear Calc 127.5 eGFR > 60 BUN/Creatinine Ratio 41 H Glucose 97 D Calculated Osmolality 299 H Calcium 9.3 Corrected Calcium 9.9 Magnesium 1.9 Total Bilirubin 0.3 AST 34 ALT 18 Alkaline Phosphatase 78 Total Protein 6.1 Albumin 3.2 L Globulin 2.9 Albumin/Globulin Ratio 1.1 L Crossmatch ABG Interpretation ABG results: 08/06/24 08/06/24 08/07/24 20:12 23:59 05:09 ABG pH 7.26 L 7.31 L 7.30 L ABG pCO2 75 H* 66 H 71 H* ABG pO2 65 L 88 D 176 H D ABG HCO3 34 H 33 H 35 H ABG O2 Saturation 91 97 100 H ABG Base Excess 6 H 5 H 7 H VBG pH VBG pCO2 VBG pO2 VBG Base Excess 08/07/24 08/07/24 08/08/24 15:13 22:08 01:35 ABG pH 7.32 L 7.35 ABG pCO2 69 H 61 H ABG pO2 51 L* D 413 H D ABG HCO3 36 H 34 H ABG O2 Saturation 83 L 100 H ABG Base Excess 9 H 7 H VBG pH 7.39 VBG pCO2 55 VBG pO2 65 H VBG Base Excess 8 H 08/08/24 08/09/24 08/10/24 07:39 04:20 08:52 ABG pH 7.46 H D ABG pCO2 43 D ABG pO2 82 L D ABG HCO3 31 H ABG O2 Saturation 97 ABG Base Excess 6 H VBG pH 7.43 7.48 VBG pCO2 50 45 VBG pO2 149 H D 134 H VBG Base Excess 8 H 9 H Quality Measures Quality Measures none Assessment & Plan Assessment Current Active Medications: Generic Name Dose Route Start Last Admin Trade Name Freq PRN Reason Stop Dose Admin Acetaminophen 650 mg 08/06/24 22:14 Acetaminophen 325 Mg Tablet PO 09/05/24 22:13 Q6H PRN Fever >101.5 Hydrocodone Bitart/Acetaminophen 1 tab 08/09/24 11:13 08/10/24 14:46 Hydrocodone/Apap 10/325 Tab PO 08/14/24 11:12 1 tab Q6HR PRN Administration Pain 4-10 Albuterol/Ipratropium 3 ml 08/06/24 23:00 08/11/24 10:26 Albuterol/Ipratropium (Duoneb) Rt Radha 3 Ml Nebu INH 09/05/24 22:59 Not Given Q4HRRT RINA Amlodipine Besylate 10 mg 08/07/24 09:00 08/11/24 08:25 Amlodipine Besylate 5 Mg Tablet PO 09/06/24 08:59 10 mg QDAY RINA Administration Apixaban 5 mg 08/07/24 09:00 08/10/24 09:52 Apixaban 2.5 Mg Tablet PO 08/28/24 08:59 Not Given BID RINA Ascorbic Acid 500 mg 08/07/24 09:00 08/11/24 08:26 Ascorbic Acid 250 Mg Tablet PO 09/06/24 08:59 500 mg BID RINA Administration Atorvastatin Calcium 80 mg 08/07/24 21:00 08/10/24 20:08 Atorvastatin Calcium 20 Mg Tablet PO 09/06/24 20:59 80 mg HS RINA Administration Azithromycin 500 mg 08/10/24 21:00 08/10/24 20:08 Azithromycin 250 Mg Tablet PO 08/15/24 20:59 500 mg HS RINA Administration Bumetanide 1 mg 08/09/24 21:00 08/11/24 08:31 Bumetanide Inj 0.25 Mg/Ml Vial 4 Ml IVP 09/08/24 20:59 1 mg BID RINA Administration Carvedilol 6.25 mg 08/10/24 11:00 08/11/24 08:25 Carvedilol 3.125 Mg Tablet PO 09/09/24 10:59 6.25 mg BIDWM RINA Administration Clopidogrel Bisulfate 75 mg 08/07/24 09:00 08/11/24 08:32 Clopidogrel Bisulfate 75 Mg Tablet PO 09/06/24 08:59 75 mg QDAY RINA Administration Collagenase 0 gm 08/08/24 12:00 08/10/24 08:36 Collagenase Oint 30 Gm Tube TOP 09/07/24 11:59 1 appln QDAY RINA Administration Dextrose 25 ml 08/06/24 22:17 08/07/24 01:55 Dextrose 50%-Water Inj 50 Ml Syringe IV 09/05/24 22:16 25 ml Q15MIN PRN Administration BG 50-70 responsive npo pt Dextrose 50 ml 08/06/24 22:17 Dextrose 50%-Water Inj 50 Ml Syringe IV 09/05/24 22:16 Q15MIN PRN BG <50 OR BG <70 & pt unresponsive Glucagon 1 mg 08/06/24 22:17 Glucagon Inj 1 Mg Vial IM Q15MIN PRN BG <70, and no IV access Hydralazine HCl 10 mg 08/08/24 06:15 08/11/24 12:15 Hydralazine Inj 20 Mg/Ml Vial IV 09/07/24 01:30 10 mg Q6HR PRN Administration SBP> 170/90 Insulin Glargine 20 unit 08/08/24 09:00 08/11/24 08:33 Insulin Glargine (Lantus) 5 Unit/0.05 Ml (Per 5 Units) SC 09/07/24 08:59 20 unit QDAY RINA Administration Insulin Human Regular 0 unit 08/09/24 11:45 08/11/24 07:37 Insulin Hum Regular 1 Unit/0.01 Ml (Per Unit) SC 09/08/24 11:44 Not Given ACHS RINA Protocol Losartan Potassium 25 mg 08/09/24 14:15 08/11/24 08:32 Losartan Potassium 25 Mg Tablet PO 09/08/24 14:14 25 mg QDAY RINA Administration Morphine Sulfate 15 mg 08/09/24 15:30 08/11/24 08:32 Morphine Sulf 15 Mg Tabcr PO 08/14/24 15:29 15 mg QDAY RINA Administration Protocol Pantoprazole Sodium 40 mg 08/08/24 09:00 08/11/24 09:11 Pantoprazole Inj 40 Mg Vial IV 09/07/24 08:59 40 mg QDAY RINA Administration Plan 54-year-old male with history of HFpEF (EF 55 to 60%, 04/24/24), coronary artery disease status post stent placement, insulin-dependent diabetes mellitus, COPD, CVA, carotid artery stenosis status post bilateral endarterectomy 2018, PE on Eliquis, hypertension, obstructive sleep apnea, cirrhosis, chronic back pain on opioids at home, and history of vertebral hemangioma status postradiation therapy was admitted to the hospital on 08/06/2024 due to acute metabolic encephalopathy likely secondary to acute on chronic hypercapnic respiratory failure in the setting of obstructive sleep apnea with medical noncompliance to CPAP machine. #Acute metabolic encephalopathy, resolved #Acute on chronic hypercapnic respiratory failure in the setting of #Obstructive sleep apnea with noncompliance with CPAP #COPD #Medical Noncompliance ? Patient came in with altered mental status, but afterwards was alert oriented x 3, but was still drowsy and lethargic on admission. ? Initial ABG in the ED showed pH of 7.26, pCO2 75 ? Patient has had multiple hospital readmissions due to similar symptoms as he has not been compliant with his CPAP machine at night. Plan: ? BiPAP at night, not compliant. ? DuoNebs every 4 ?O2 administration as needed ? Will continue to monitor #Bilateral pleural effusion ?Chest x-ray showed bilateral pleural effusions with left worse than right ?There appears to be no infectious process at this time as patient has not spiked any fevers nor any WBC elevation. ?Pleural effusion most likely in the setting o heart failure exacerbation Plan: ? Ultrasound-guided thoracentesis unsuccessful given not enough fluid. ? Will continue with azithromycin for now ? Will continue to monitor #Acute decompensated heart failure exacerbation #HFpEF (EF 55 to 60% on 04/2024) #CAD s/p stent ?Patient does not appear to be on heart failure exacerbation at this time ? BNP was 406 on admission and repeat 706 Plan: ?Continue Bumex 1 mg twice daily ? Continue carvedilol 6.25 mg ? Strict FREIDA's ? Fluid restrictions #Hypertensive urgency, resolved #Hx of hypertension ?Patient was placed on nicardipine drip in the ICU given that his blood pressure was significantly elevated in the 200s over 100s. -Still uncontrolled Plan: ? Will continue patient on amlodipine 10 mg daily ? Will increase losartan to 50 mg daily ?Continue Bumex 1 mg twice daily ? Hydralazine IV 10 mg every 6 as needed for SBP above 170 ?Will restart carvedilol 6.25 BID #DM2 ? A1c on 07/30/2024 was 6.8 Plan: ?Glargine 20 units daily ? ISS ? Hypoglycemia protocol ordered ? Accu-Cheks ? Will continue monitor #Coronary artery stenosis s/p bilateral endarterectomy on 2018 #CVA #Hx of PE ? Will continue Plavix 75 mg daily and atorvastatin 80 mg at bedtime -Held Eliquis 5 mg twice daily in setting of low hemoglobin #Hx of chronic back pain on opiates at home #Hx of vertebral hemangioma status post radiation therapy ? Continue Oakley 10 and started Morphine SR 15mg qday. #Hyperkalemia, resolved Disposition: Patient pending BP control Diet: carb consistent GI prophylaxis: Protonix DVT prophylaxis: holding Eliquis in setting of anemia Code: Full Case disclosed with Attending Dr. Karma Fuentes PGY1 Attending Provider Attestation/Addendum I reviewed labs, imaging, EKG, home medications and prior available records. Face to face evaluation was performed by me. I have personally examined the patient and discussed assessment and plan with the IM team. I reviewed the resident note and agree with the plan with exceptions as below. Acute anemia Hyperactive agitation Acute hypercapnic respiratory failure Chronic hypoxic respiratory failure CHF exacerbation/HFpEF EF 55% Bilateral pleural effusion History of CAD status post stent History of PE Morbid obesity Hypertensive urgency Hemoglobin is a stable posttransfusion. Held Eliquis Continue BiPAP and wean off as tolerated. Patient has been refusing BiPAP. Ensure compliance Ordered ABG that showed mild hypoxemia. Continue diuresis as below Continue IV diuresis. Stopped Lasix and continued Bumex. Added metolazone Ordered IR guided pleurocentesis given significant pleural effusion: Insufficient fluids Minimize the use of IV and oral opiates given the high tolerance and drug- seeking behavior Continue losartan and amlodipine. Continue Coreg. Increased losartan. Monitor BP. May add p.o. hydralazine if remains uncontrolled
[2024-08-11] MEDS: HYDROcodone/APAP 10/325 TAB PO (16:04)
--- NOTE | 2024-08-11 16:52 | XR_ITS ---
Examination: AP chest single view Technique one AP portable semiupright chest single view Exam date and time: August 11, 2024 1714 hrs. Comparison August 09, 2024 Indications: Chest pain today. Findings: Moderate CHF Moderate enlargement cardiac contour with prominent vascular congestion and perihilar edema Bilateral pleural disease again noted, significant left Prominent osteopenia with moderate thoracic dextroscoliosis Impression: Moderate CHF
--- NOTE | 2024-08-11 16:52 | EKG_ITS ---
[facility] Test Date: 2024-08-11 Pat Name: JILL HIDALGO [facility] Gender: Male Feather Boner: ROMEL : 1970 Requested By: James Ching Order Number: [id number] Reading MD: James Ching Measurements Intervals [place] Rate: 74 P: 32 SC: 172 QRS: 35 QRSD: 101 T: 32 QT: 388 QTc: 431 Interpretive Statements SINUS RHYTHM NONSPECIFIC T-WAVE ABNORMALITY Compared to ECG 08/06/2024 19:47:49 T-wave abnormality now present Intraventricular conduction delay no longer present /store/S0/[id number]
[2024-08-11] MEDS: MORPHINE SULF INJ 10 MG/ML VIAL IVP (17:08)
--- NOTE | 2024-08-11 17:09 | EVENTNT_ITS ---
<Statement entered by Jay Christiansen MD - 08/12/24 09:17> Patient was examined with the team including attending physician. Note reviewed, I agree with the event note as documented. - Jay Christiansen M.D. PGY2 Documentation for date of: 08/11/24 Event Note Event Note: Rapid response was called at 4:50 PM. And given the patient's bedside, he complained of central/left-sided chest pain that worsened with deep inspiration, sharp, about a 7/10 in severity, nonradiating. Initial vitals-blood pressure 170/120 and heart rate 72, he was saturating 94% on 3 L of oxygen. Ordered a chest x-ray, EKG, troponin, repeat CBC and CMP will give IV morphine 1 mg. Repeat vitals, blood pressure-162/83 heart rate 74 and pain is resolving. Follow-up labs and imaging. Case was discussed with Dr Christiansen PGY-2 and attending physician, Dr Whitfield Disclaimer: This note was dictated by speech recognition. Minor errors in vice president of sales may be present due to voice recognition software.
[2024-08-11 17:40] LABS: Basophils % (Auto) 0 % (0-2.5); Eosinophils # (Auto) 0.2 Thou/mm3 (0.0-0.5); Eosinophils % (Auto) 3 % (0-10); Hematocrit 26.7 % (41.0-53.0); Immature Granulocytes % (Auto) 0 % (0-0); Immature Granulocytes Auto 0.03 Thou/mm3 (0.00-0.00); Lymphocytes % (Auto) 13 % (10-50); Mean Corpuscular HGB Conc 30.7 g/dl (31.0-37.0); Mean Corpuscular Hemoglobin 26.5 pg (25.0-35.0); Mean Corpuscular Volume 86 fL (80-100); Monocytes # (Auto) 0.7 Thou/mm3 (0.0-0.8); Monocytes % (Auto) 9 % (0-12); Neutrophils # (Auto) 5.7 Thou/mm3 (1.8-7.7); Neutrophils % (Auto) 75 % (37-80); Nucleated Red Blood Cell % 0 /100 WBC (0); Platelet Count 163 Thou/mm3 (140-440); RDW Standard Deviation 54.3 fL (35.1-43.9); White Blood Count 7.6 Thou/mm3 (3.8-10.6)
[2024-08-11 17:55] LABS: Albumin, Serum 3.3 gm/dL (3.5-5.0); Anion Gap 9 (7-16); BUN/Creatinine Ratio 33 Ratio (12-20); Blood Urea Nitrogen 30 mg/dL (9-23); Calcium 9.1 mg/dL (8.3-10.6); Calcium (Corrected) 9.7 mg/dL (8.5-10.1); Carbon Dioxide 30.9 mMol/L (20.0-31.0); Chloride 105 mMol/L (98-107); Creatinine (Component) 0.9 mg/dL (0.6-1.3); Estimated Creatinine Clearance 127.5 mL/min (>60); Glucose 116 mg/dL (74-106); Magnesium 1.8 mg/dL (1.6-2.6); Osmolality,Calculated 295 (275-295); Phosphorous 4.1 mg/dL (2.4-5.1); Potassium 4.1 mMol/L (3.4-5.1); Sodium 145 mMol/L (136-145); Troponin I 0.031 ng/mL (0.0-0.045); eGFR > 60 See Note
[2024-08-11 18:23] LABS: Hemoglobin 8.2 g/dL (13.5-16.0)
[2024-08-11] MEDS: ATORVASTATIN CALCIUM 20 MG TABLET 80 MG PO (20:50)
[2024-08-11] MEDS: AZITHROMYCIN 250 MG TABLET 500 MG PO (20:50)
[2024-08-12] VITALS (13 sets, daily range): BP systolic 147–175; BP diastolic 57–83; PULSE 68–73; RESP 18–21; TEMP 36.2–36.3; O2SAT 95–99
[2024-08-12] MEDS: MELATONIN 3 MG TABLET 6 MG PO (02:44)
[2024-08-12] MEDS: ALBUTEROL/IPRATROPIUM (Duoneb) RT SOL 3 ML NEBU INH (03:16)
--- NOTE | 2024-08-12 04:25 | PC.NURSE ---
Notify MD of pt's BP 175/83 HR 73. MD will check chart and will put an order.
[2024-08-12] MEDS: hydrALAZINE INJ 20 MG/ML VIAL 5 MG IV (04:35)
[2024-08-12] MEDS: HYDROcodone/APAP 10/325 TAB PO ×2 (04:45→12:10)
[2024-08-12 06:41] LABS: Basophils % (Auto) 1 % (0-2.5); Eosinophils # (Auto) 0.3 Thou/mm3 (0.0-0.5); Eosinophils % (Auto) 4 % (0-10); Hematocrit 26.5 % (41.0-53.0); Immature Granulocytes % (Auto) 1 % (0-0); Immature Granulocytes Auto 0.04 Thou/mm3 (0.00-0.00); Lymphocytes # (Auto) 1.1 Thou/mm3 (1.0-4.8); Lymphocytes % (Auto) 14 % (10-50); Mean Corpuscular HGB Conc 30.9 g/dl (31.0-37.0); Mean Corpuscular Hemoglobin 26.8 pg (25.0-35.0); Mean Corpuscular Volume 87 fL (80-100); Monocytes # (Auto) 0.8 Thou/mm3 (0.0-0.8); Monocytes % (Auto) 11 % (0-12); Neutrophils # (Auto) 5.2 Thou/mm3 (1.8-7.7); Neutrophils % (Auto) 70 % (37-80); Nucleated Red Blood Cell % 0 /100 WBC (0); Platelet Count 172 Thou/mm3 (140-440); Red Blood Count 3.06 Miln/mm3 (4.50-5.90); White Blood Count 7.5 Thou/mm3 (3.8-10.6)
[2024-08-12 06:48] LABS: Hemoglobin 8.2 g/dL (13.5-16.0)
[2024-08-12 07:12] LABS: Alanine Aminotransferase 19 U/L (10-49); Albumin, Serum 3.2 gm/dL (3.5-5.0); Albumin/Globulin Ratio 1.1 (1.2-2.2); Alkaline Phosphatase 77 U/L (46-116); Anion Gap 9 (7-16); Aspartate Amino Transferase 39 U/L (0-34); BUN/Creatinine Ratio 35 Ratio (12-20); Bilirubin,Total 0.3 mg/dL (0.3-1.2); Blood Urea Nitrogen 28 mg/dL (9-23); Calcium 9.1 mg/dL (8.3-10.6); Calcium (Corrected) 9.7 mg/dL (8.5-10.1); Chloride 106 mMol/L (98-107); Creatinine (Component) 0.8 mg/dL (0.6-1.3); Estimated Creatinine Clearance 143.4 mL/min (>60); Globulin 2.9 gm/dL (2.3-3.5); Glucose 85 mg/dL (74-106); Magnesium 1.9 mg/dL (1.6-2.6); Osmolality,Calculated 295 (275-295); Potassium 3.8 mMol/L (3.4-5.1); Sodium 146 mMol/L (136-145); Total Protein 6.1 gm/dL (5.7-8.2); Troponin I 0.036 ng/mL (0.0-0.045); eGFR > 60 See Note
--- NOTE | 2024-08-12 10:33 | PC.SS ---
Addendum entered by Cheryl Link 08/12/24 10:57: SS was contacted by [facility] to set up transportation for 2PM. SS updated Latoya from [facility] as well as patient nurse, Grace. SS will update patient. Original Note: SS follow up note; SS set up transportation through [facility], Reference # [id number]. SS contacted patient's nurse Grace to update her. SS will meet with patient as well to inform him in regards to discharge. SS also contacted Latoya
[2024-08-12] MEDS: BUMETANIDE INJ 0.25 MG/ML VIAL 4 ML 1 MG IVP (10:42)
[2024-08-12] MEDS: PANTOPRAZOLE INJ 40 MG VIAL IV (10:42)
[2024-08-12] MEDS: carVEDILOL 3.125 MG TABLET 6.25 MG PO (10:43)
[2024-08-12] MEDS: ASCORBIC ACID 250 MG TABLET 500 MG PO (10:43)
[2024-08-12] MEDS: amLODIPine BESYLATE 5 MG TABLET 10 MG PO (10:44)
[2024-08-12] MEDS: LOSARTAN POTASSIUM 25 MG TABLET 50 MG PO (10:44)
[2024-08-12] MEDS: Morphine Sulf 15 MG TABCR PO (10:44)
[2024-08-12] MEDS: APIXABAN 2.5 MG TABLET 5 MG PO (10:45)
[2024-08-12] MEDS: CLOPIDOGREL BISULFATE 75 MG TABLET PO (10:45)
[2024-08-12] MEDS: COLLAGENASE OINT 30 GM TUBE TOP (12:11)
--- NOTE | 2024-08-12 14:15 | ESDS_ITS ---
Planned Discharge Date 08/12/24 DS: Providers Provider Date of admission: 08/06/24 22:14 Primary care physician: Franklyn Tony MD Admitting Provider: Óscar Vines MD Attending Provider on Admission: Óscar Vines MD Consults: 08/07/24 03:49 Referral Wound Care Urgent Comment: Instructions: new admit, two unstageable wounds sacrum, bilateral buttocks 08/09/24 10:24 Referral Physical Therapy Routine Comment: Physician Instructions: Attending Provider on DC: Nichelle Walsh MD Discharging Provider: Nichelle Walsh MD DS: Diagnosis Problem List Completed Was Problem List Reviewed/Reconciled?: Yes Hospital Course Hospital Course Hospital course: Mr. Fisher is a 54-year-old male with history of insulin-dependent diabetes mellitus (A1c 6.8), CAD s/p stents, HFpEF (EF 55 to 60%, 04/24/24), CVA, carotid artery stenosis status post bilateral endarterectomy 2018, PE on Eliquis, hypertension, chronic hypercapnia due to obstructive sleep apnea and obesity hypoventilation syndrome non-compliant on CPAP, cirrhosis, history of vertebral hemangioma status postradiation therapy on chronic morphine who presented to [facility] emergency department on 08/06/2024 from nursing home facility for altered mental status and shortness of breath. In the ER, ABG showed respiratory acidosis with pH of 7.26 and pCO2 of 75. He was admitted for acute on chronic hypercapnic respiratory failure. Patient was non-compliant with his BIPAP and his CO2 worsened, so patient was upgraded to the ICU for precedex drip. His hypercapnia improved and patient was weaned back from BIPAP to room air. He was also briefly on nicardipine drip for hypertension with systolic readings over 200. Chest-Xray showed moderate CHF with left pleural fluid, however there was not enough to be removed by thoracentesis. Patient was diuresed and downgraded back to floors. During his hospital stay, patient was also transfused 1 unit of PRBC for anemia. Patient to be discharged to SNF with the following recommendations: - Please wear your CPAP at night - Take amlodipine, coreg, losartan, and hydralazine for your blood pressure - Stop taking lasix as you are taking Bumex instead - Continue taking eliquis. Hold if you are having bloody bowel movements then please see your doctor. - Continue all home medications - Follow up with your primary care physician within 1 week of discharge. If you do not have a primary care physician, please follow up with the [facility] Residents clinic ([phone]) I have reviewed and discussed the patient's care with my attending, Dr. Kasey Walsh MD PGY-3 #Acute metabolic encephalopathy, resolved #Acute on chronic hypercapnic respiratory failure in the setting of #Obstructive sleep apnea with noncompliance with CPAP #Bilateral pleural effusion #Hypertensive urgency, resolved #Hx of hypertension #HFpEF (EF 55 to 60% on 04/2024) #CAD s/p stent #COPD #Medical Noncompliance #DM2, A1c 6.8 #Coronary artery stenosis s/p bilateral endarterectomy on 2018 #CVA #Hx of PE #Hyperkalemia, resolved #Hx of chronic back pain on opiates at home #Hx of vertebral hemangioma status post radiation therapy Time Spent with Patient Time attestation: Total time spent providing and/or coordinating discharge services: 35 min Time spent: Greater than 30 minutes Exam Vital Signs Temp Pulse Resp BP Pulse Ox O2 Del Method O2 Flow Rate 97.4 F 72 20 169/83 H 95 Nasal Cannula 2 08/12/24 12:00 08/12/24 12:00 08/12/24 12:00 08/12/24 12:00 08/12/24 12:00 08/12/24 12:00 08/12/24 12:00 FiO2 30 08/12/24 03:16 Narrative Exam Constitutional: Obese, no acute distress, lying supine HEENT: NCAT. Vision grossly intact. Respiratory: Decreased breath sounds, limited auscultation due to body habitus. Cardiac: RRRR Abdomen: Non-distended MSK: No B/L LE edema. Skin: Warm, dry, intact. No obvious lesions. Neuro: Motor and sensation grossly intact. Discharge Plan Plan Patient Disposition: Xfer Skilled Nsg Fac (SNF) Prescriptions/Referrals Prescriptions/Med Rec: New naloxone [Narcan] 4 mg/actuation spray,non-aerosol 1 spray intranasal Q3M Qty: 2 0RF Rx Instructions: spray 1 dose into ONE nostril; alternate nostrils w each dose until help arrives Continued hydrocodone-acetaminophen 10-325 mg tablet 1 tab PO Q4H PRN (Reason: pain, mild) Rx Instructions: pain 1-3 pregabalin 150 mg capsule 150 mg PO TID sennosides [senna] 8.6 mg tablet 8.6 mg PO BID PRN (Reason: constipation) Qty: 30 0RF nifedipine 30 mg tablet extended release 30 mg PO QDAY 30 Days Qty: 30 0RF morphine 15 mg tablet extended release 15 mg PO QDAY PRN (Reason: Pain, Severe) metoclopramide HCl 5 mg tablet 5 mg PO Q6H 30 Days Qty: 120 3RF atorvastatin 80 mg Tablet 80 mg PO QPM ascorbic acid (vitamin C) [Vitamin C] 500 mg Tablet 500 mg PO BID [place] 0.8 mg Tablet 1 tab PO QDAY budesonide-formoterol 160-4.5 mcg/actuation Hfa Aerosol Inhaler 2 puff INHALATION BID apixaban 5 mg Tablet 5 mg PO BID insulin detemir U-100 100 unit/mL (3 mL) Insulin Pen 30 unit SUBCUT BID Qty: 15 0RF loperamide 2 mg Tablet 2 mg PO Q6H PRN (Reason: Diarrhea) insulin lispro [Humalog KwikPen Insulin] 100 unit/mL insulin pen See Protocol SUBCUT AC Protocol: Insulin Corrective High-Dose Regimen Condition: Fingerstick Blood Glucose Dose/Route: Insulin Units Condition: 141-180 mg/dl Dose/Route: 6 units/SQ Condition: 181-220 mg/dl Dose/Route: 8 units/SQ Condition: 221-260 mg/dl Dose/Route: 10 units/SQ Condition: 261-300 mg/dl Dose/Route: 12 units/SQ Condition: 301-350 mg/dl Dose/Route: 14 units/SQ Condition: 351-400 mg/dl Dose/Route: 16 units/SQ Condition: greater than 400 mg/dl Dose/Route: 18 units/SQ Zepbound 2.5 mg/0.5 mL pen injector 2.5 mg subcut QWEEK Qty: 2 2RF Rx Instructions: Please double the dose every 2 weeks as tolerated until maximum dose of 10mg/Week. bumetanide 2 mg tablet 2 mg PO BID 30 Days Qty: 60 0RF hydralazine 100 mg tablet 100 mg PO TID 30 Days Qty: 90 0RF Januvia 100 mg tablet 100 mg PO DAILY amlodipine 10 mg tablet 10 mg PO DAILY magnesium hydroxide [Milk of Magnesia] 400 mg/5 mL suspension 30 ml PO Q72H PRN (Reason: constipation) Rx Instructions: if no BM for 3 days bisacodyl [Dulcolax (bisacodyl)] 10 mg suppository 10 mg MI QDAY PRN (Reason: constipation) Rx Instructions: If mom not effective ergocalciferol (vitamin D2) 1,250 mcg (50,000 unit) capsule 50,000 unit PO QWEEK aspirin [Ecotrin Low Strength] 81 mg tablet,delayed release (DR/EC) 81 mg PO QDAY oxybutynin chloride 5 mg tablet 5 mg PO BID lorazepam 2 mg tablet 2 mg PO HS clopidogrel [Plavix] 75 mg tablet 75 mg PO QDAY meclizine 25 mg tablet 25 mg PO DAILY PRN (Reason: nausea and vomiting) cyclobenzaprine 10 mg tablet 10 mg PO Q12H PRN (Reason: muscle spasm) losartan 50 mg tablet 100 mg PO QDAY carvedilol 6.25 mg tablet 6.25 mg PO BID Rx Instructions: hold for SBP <110 or HR <60 ipratropium-albuterol 0.5 mg-3 mg(2.5 mg base)/3 mL solution for nebulization 3 ml INHALATION BID PRN (Reason: shortness of breath) ProAir RespiClick 90 mcg/actuation aerosol powdr breath activated 2 inh INHALATION Q4H PRN (Reason: shortness of breath or wheezing) Discontinued furosemide 40 mg tablet 40 mg PO DAILY insulin glargine 100 unit/mL cartridge 50 unit subcut QPM Referrals: Franklyn Tony MD [Primary Care Provider] - Patient/Caregiver Discharge Instructions Education Materials: Thoracentesis Dc, CPAP Dc, ED Sleep Apnea, Obstructive Print Language: Upper Sorbian Stand Alone Forms: [facility] Award Info., Patient Portal Info Letter Discharge Order Discharge Orders: Discharge (Routine); Ordered 08/12/24 Ordered By: Nichelle Walsh Quality Discharge Quality Measures VTE prophylaxis
== END 2024-08-12 14:07 | disposition skilled nursing facility (03) | DRG 133 ==
LOC: SERX 23:06 → SERHOLD 23:08 → S2NX 08-07 03:05 → S2SX 08-08 08:11 → S2NX 08-08 09:46 → S3NX 08-09 16:01
PROVIDERS: Registered Nurse General Practice; Student in an Organized Health Care Education/Training Program; Admitting Provider Internal Medicine; Emergency Provider Emergency Medicine; PCP Family Medicine; Visit Provider Internal Medicine
DX: J96.22 Acute and chronic respiratory failure with hypercapnia (principal); E66.01 Morbid (severe) obesity due to excess calories; Z68.42 Body mass index [BMI] 45.0-49.9, adult; F17.200 Nicotine dependence, unspecified, uncomplicated; I50.32 Chronic diastolic (congestive) heart failure; I25.10 Atherosclerotic heart disease of native coronary artery without angina pectoris; I11.0 Hypertensive heart disease with heart failure; G93.41 Metabolic encephalopathy; G47.33 Obstructive sleep apnea (adult) (pediatric); E87.5 Hyperkalemia; E11.9 Type 2 diabetes mellitus without complications; J44.9 Chronic obstructive pulmonary disease, unspecified; I16.0 Hypertensive urgency; J96.21 Acute and chronic respiratory failure with hypoxia; M54.9 Dorsalgia, unspecified; J91.8 Pleural effusion in other conditions classified elsewhere; G89.29 Other chronic pain; N17.9 Acute kidney failure, unspecified; E87.0 Hyperosmolality and hypernatremia; D63.8 Anemia in other chronic diseases classified elsewhere; Z78.1 Physical restraint status; Z79.4 Long term (current) use of insulin; Z91.199 Patient's noncompliance with other medical treatment and regimen due to unspecified reason; Z95.5 Presence of coronary angioplasty implant and graft; Z86.711 Personal history of pulmonary embolism; Z79.01 Long term (current) use of anticoagulants; Z99.81 Dependence on supplemental oxygen; Z79.891 Long term (current) use of opiate analgesic; Z92.3 Personal history of irradiation; Z86.73 Personal history of transient ischemic attack (TIA), and cerebral infarction without residual deficits; Z79.899 Other long term (current) drug therapy; K70.30 Alcoholic cirrhosis of liver without ascites; Z88.8 Allergy status to other drugs, medicaments and biological substances; Z79.02 Long term (current) use of antithrombotics/antiplatelets; E87.29 Other acidosis
CPT/HCPCS: 36415; 36600; 70450; 71045; 76999; 80048; 80053; 80069; 80307; 81001; 82140; 82150; 82803; 82945; 83615; 83735; 83880; 84100; 84132; 84145; 84157; 84484; 85014; 85018; 85025; 85379; 85610; 85730; 86850; 86900; 86901; 86923; 87070; 87075; 87081; 87205; 87811; 89051; 93005; 94640; 94660; 96374; 97162; 99285; A9270; J0360; J0456; J1630; J1815; J1940; J2060; J2250; J2270; J2404; J2470; J3490; J7050; J7512; P9016

== ENCOUNTER 2024-08-22 07:46 | Inpatient (IN) | payer MEDICAID, SELFPAY ==
[2024-08-22] VITALS (13 sets, daily range): BP systolic 102–156; BP diastolic 51–119; PULSE 76–98; RESP 14–20; TEMP 36.1–36.6; O2SAT 95–100; BMI 41.6
--- NOTE | 2024-08-22 08:05 | EDNOTE_ITS ---
ED SOB =RME/HPI General Chief Complaint: Altered Mental Status Stated Complaint: AMS Time Seen by Provider: 08/22/24 08:05 Arrival date/time: 08/22/24 07:46 RME / HPI RME / HPI Narrative: DR. WASHBURN MAIN ED EVALUATION: This section includes all my notes and documentations, including HPI, PE, and ED course.? Navarro Washburn MD HPI: 54 year old male with past medical history significant for CHF, diabetes, hypertension, hypercholesterolemia, and obesity presents to the Emergency Department [facility] from [facility] with complaints of hypoxia/shortness of breath and lethargy/AMS according to staff. Per EMS, patient is oriented x3. Patient is on 2 L/min via nasal cannula at baseline, now satting at 98% on 6 L/min. Patient denies any fevers, chills, or cough. No other complaints reported. Per half-way, yesterday the went to visit the patient at the half-way and after she left the room smelled like marijuana. Patient vapes but denies any drug use. Code Status: Full code. ROS: All negative except as documented in HPI. Physical Exam: General:? Lethargic. In mild to moderate respiratory distress. Eyes:? Conjunctivae and lids clear. PERRL. EOMI. ENT:? No nasal congestion.? ? Neck:? Supple. No carotid bruit. No JVD. Heart:? RRR. Lungs: Mild to moderate respiratory distress.? Moderately decreased air movement with bilateral wheezing and rales. Abdomen:? Soft and nontender.? Legs:? No clubbing, cyanosis, edema. Skin:? Warm and dry.? Neuro:? Alert and oriented X 3.? Cranial nerves II through XII grossly normal. No peripheral motor deficits. I reviewed all diagnostic test results. My interpretation of the EKG is?sinus rhythm (75 bpm) with nonspecific ST-T changes. My interpretation of the chest x-ray is vascular congestion and/or infiltrates. My review of the head CT report is?no acute findings. My review of the chest CT report is pneumonia. Blood tests and urine tests remarkable for Hgb 4.3, Hct 14.7. At this point, diagnoses include Acute on chronic respiratory failure with hypoxia, COPD, CHF, half-way-acquired pneumonia, severe anemia, and ZENY. Treatment here included albuterol and Solu-Medrol and Rocephin and vancomycin. Blood transfusion started. Significant improvement not noted. I discussed the case with our hospitalist.? About the presentation and exam and diagnostics and treatments here.? And need of further care in the hospital. Will accept the patient. Navarro Washburn MD Related Data Home Medications ?Medication ?Instructions ?Recorded ?Confirmed hydrocodone 10 mg-acetaminophen 1 tab PO Q4H PRN pain, mild 10/22/23 08/07/24 325 mg tablet pregabalin 150 mg capsule 150 mg PO TID 10/22/2308/07 morphine 15 mg tablet,extended 15 mg PO QDAY PRN Pain, Severe 01/14/24 07/31/24 release apixaban 5 mg tablet 5 mg PO BID 06/25/24 5 ascorbic acid (vitamin C) 500 mg 500 mg PO BID 5 08/07/24 tablet (Vitamin C) atorvastatin 80 mg tablet 80 mg PO QPM 06/25/24 budesonide-formoterol HFA 160 2 puff inhalation BID 07/31/24 mcg-4.5 mcg/actuation aerosol inhaler vitamin B complex-vitamin C-folic 1 tab PO QDAY 08/07/24 acid 0.8 mg tablet (Sapphire-Holly) insulin lispro 100 unit/mL See Protocol subcut AC 06/2207/31/24 subcutaneous pen (Humalog KwikPen (U-100) Insulin) loperamide 2 mg tablet 2 mg PO Q6H PRN Diarrhea 08/07/24 albuterol sulfate 90 mcg/actuation 2 inh inhalation Q4 H PRN shortness 08/07/24 08/07/24 breath activated powder inhaler of breath or wheezing (ProAir RespiClick) amlodipine 10 mg tablet 10 mg PO DAILY 08/07/2407/22 aspirin 81 mg tablet,delayed 81 mg PO QDAY 08/07/24 release (Ecotrin Low Strength) bisacodyl 10 mg rectal suppository 10 mg MN QDAY PRN c onstipation 08/07/24 08/07/24 (Dulcolax (bisacodyl)) carvedilol 6.25 mg tablet 6.25 mg PO BID 08/07/2407/22 clopidogrel 75 mg tablet (Plavix) 75 mg PO QDAY 08/07/24 cyclobenzaprine 10 mg tablet 10 mg PO Q12H PRN muscle spasm 08/07/24 08/07/24 ergocalciferol (vitamin D2) 1,250 50,000 unit PO QWEEK 08/07/24 08/07/24 mcg (50,000 unit) capsule ipratropium 0.5 mg-albuterol 3 mg 3 ml inhalation BID PRN shortness 08/07/24 08/07/24 (2.5 mg base)/3 mL nebulization of breath soln lorazepam 2 mg tablet 2 mg PO HS 08/07/24 08/07/24 losartan 50 mg tablet 100 mg PO QDAY 08/07/2407/22 magnesium hydroxide 400 mg/5 mL 30 ml PO Q72H PRN cons tipation 08/07/24 08/07/24 oral suspension (Milk of Magnesia) meclizine 25 mg tablet 25 mg PO DAILY PRN nausea an d 08/07/24 08/07/24 vomiting oxybutynin chloride 5 mg tablet 5 mg PO BID 08/07/24 0 08/07/24 sitagliptin phosphate 100 mg 100 mg PO DAILY 08/07/24 08/07/24 tablet (Januvia) Previous Rx's ?Medication ?Instructions ?Recorded sennosides 8.6 mg tablet (senna) 8.6 mg PO BID PRN con stipation #30 10/26/23 tabs metoclopramide HCl 5 mg tablet 5 mg PO Q6H gastropares is 30 days 01/17/24 #120 tabs insulin detemir U-100 100 unit/mL 30 unit (0.3 mL) sub cut BID #15 mL 06/29/24 (3 mL) subcutaneous pen tirzepatide (weight loss) 2.5 2.5 mg (0.5 mL) subcut Q WEEK #2 mL 07/21/24 mg/0.5 mL subcutaneous pen injector (Zepbound) bumetanide 2 mg tablet 2 mg PO BID 1 month #60 tabs 07/24/24 hydralazine 100 mg tablet 100 mg PO TID 1 month #90 ta bs 07/24/24 nifedipine 30 mg tablet,extended 30 mg PO QDAY 1 month #30 tabs 08/01/24 release naloxone 4 mg/actuation nasal 1 spray intranasal Q3M o pioid 08/12/24 spray (Narcan) overdose #2 ea Allergies Allergy/AdvReac Type Severity Reaction Status Date / Time ketorolac Allergy Severe TONGUE Verified 07/26/23 22:55 SWELLS UP escitalopram Allergy Intermediate Rash Verified 06/28/24 10:52 Past Medical History Past Medical History NEUROLOGIC: Positive Neurological Disorders, Cerebrovascular Accident, Transient Ischemic Attacks (TIA) and Willis's Palsy; Negative Seizures CARDIAC: Positive Cardiac Disorders, Myocardial Infarction, Coronary Artery Disease, Atherosclerotic Heart Disease, Hypercholesterolemia, Congestive Heart Failure, Edema, Cellulitis, Deep Vein Thrombosis and Hypertension RESPIRATORY: Positive Asthma, Pulmonary Embolism and Sleep Apnea; Negative Chronic Obstructive Pulmonary Disease (COPD) or Pneumonia GASTROINTESTINAL: Positive Gastrointestinal Disorders, Cirrhosis and Obesity GENITOURINARY: Positive Genitourinary Disorders and Kidney Stones; Negative Renal Disease MUSCULOSKELETAL: Positive Musculoskeletal Disorders and Degenerative Disk Disease; Negative Bone Cancer, Carpal Tunnel Syndrome or Fractures ENDOCRINE: Positive Endocrine Disorders and Diabetes Mellitus Type 2; Negative Diabetes Mellitus Type 1 HEMATOLOGIC: Positive Blood Disorders and Anemia; Negative Sickle Cell Disease PSYCHO/SOCIAL: Positive Anxiety OTHER HISTORY: Positive Falls, Blood Transfusions and Chicken Pox; Negative Autoimmune Disease, Blood Transfusion Reaction, Anesthesia Reactions, Organ Transplant, MRSA, VRSA, Vancomycin-Resistant Enterococci, Clostridium Difficile or Cancer Family History FAMILY HISTORY: Positive Family Respiratory Disorders and Family Cardiac Di sorders; Negative Family Neurologic Problems Surgical History SURGICAL: Positive Cardiac Surgery, Coronary Stent and Carotid Endarterectomy (bilateral 2019); Negative Ear Surgery, Abdominal Surgery, Joint Replacement, Amputation, Open Reduction Internal Fixation, Arthroscopy, Neurologic Surgery, Vasectomy or Organ Transplant Social History SMOKING STATUS: Current every day smoker SECOND HAND EXPOSURE: Yes ([id number] x 4 yrs) SUBSTANCE USE: does not use Course Quality Measures none Orders Category Date Time Status Bedside COVID-19 Antigen Test NOW Care 08/22/24 08:05 Active Bedside Influenza A&B Antigen Test NOW Care 08/22/24 08:05 Completed COVID-19 Screening Questionnaire NOW Care 08/22/24 13:[address] Screening NOW Care 08/22/24 08:06 Active Decision to Admit X1 Care 08/22/24 13:48 Completed EKG (ED ONLY) *Do not use* NOW Care 08/22/24 08:07 Completed Saline [Insert IV] NOW Care 08/22/24 08:05 Active Straight [In and Out Catheter] X1 Care 08/22/24 08:05 Active Transfuse,blood/blood products NOW Care 08/22/24 11:[address] angio chest Stat Exams 08/22/24 08:[address] head/brain wo con Stat Exams 08/22/24 08:06 Completed EKG (ED Only) Stat Exams 08/22/24 08:07 Draft XR chest 1V portable Stat Exams 08/22/24 08:07 Completed ABG [Arterial Blood Gas] Stat Lab 08/22/24 08:37 Completed BNP [B-Type Natriuretic Peptide] Stat Lab 08/22/24 10:10 Completed Blood Culture (Lab) Stat Lab 08/22/24 09:50 Received CBC Stat Lab 08/22/24 10:10 Completed CMP [Comprehensive Metabolic Panel] Stat Lab 08/22/24 10:10 Completed CRP [C-Reactive Protein] Stat Lab 08/22/24 10:10 Completed D-Dimer Stat Lab 08/22/24 10:10 Completed Drug Screen,Urine Stat Lab 08/22/24 11:30 Completed ESR [Sed Rate (ESR)] Stat Lab 08/22/24 10:10 Completed Magnesium Stat Lab 08/22/24 10:10 Completed Procalcitonin Stat Lab 08/22/24 10:10 Completed RSV [Respiratory Syncytial Virus Ag] Stat Lab 08/22/24 14:28 Completed TSH [Thyroid Stimulating Hormone] Stat Lab 08/22/24 10:10 Completed Troponin I Stat Lab 08/22/24 10:10 Completed Type and Screen Stat Lab 08/22/24 09:55 Completed UA, C/S IF [Urinalysis, C/S if Indicated] Stat Lab 08/22/24 11:30 Completed prbc [Red Blood Cells] Stat Lab 08/22/24 09:55 Completed Albuterol/Ipratr Rt Radha [Duoneb Rt Radha] Med 08/22/24 08:07 Discontinued 3 ml INH X1 ONE MethylPREDNISolone.* [SoluMEDROL Inj] Med 08/22/24 08:07 Discontinued 125 mg IVP X1 ONE Vancomycin Inj 2,000 mg Med 08/22/24 13:46 Discontinued Sodium Chloride 0.9% 500 ml [Ns] 500 ml IV X1 cefTRIAXone [Rocephin] 1,000 mg Med 08/22/24 13:46 Discontinued SODIUM CHLORIDE 0.9% (Popper) [Ns 0.9% (P)] 50 ml IV X1 Vital Signs Vital signs: Vital Signs Pulse Rate 76 08/22/24 08:32 Respiratory Rate 14 08/22/24 08:32 Pulse Oximetry (%) 100 08/22/24 08:32 Oxygen Flow Rate 4 08/22/24 08:32 Shortness of Breath / Dyspnea MDM Narrative MDM Narrative:: IMaegan am scribing for and in the presence of Dr. Washburn. Patient data External records reviewed:: [facility] previous records (Reviewed last admission d ischarge dated 08/12/24, patient admitted for the following: CO2 retention) and EMS form Clinical information provided by:: patient and EMS Social determinants that could affect healthcare access:: housing ([facility] (temporary)) Patient has the following chronic illnesses:: CHF, diabetes, hypertension, hypercholesterolemia, and obesity. Code Status: Full code. How is presenting disease/condition affected by chronic disease/condition?: exacerbated by Evaluation data The following diagnostics were reviewed and interpreted by me:: lab results, radiology exam(s) and EKG tracing(s) (My interpretation of the EKG is: Sinus rhythm (75 bpm) with nonspecific ST-T changes. Navarro Washburn MD) Lab and/or radiology exams considered but not ordered:: none Interpretation Summary: Acute on chronic respiratory failure with hypoxia, COPD, CHF, half-way- acquired pneumonia, severe anemia. Medications / Prescriptions Medications or Prescriptions considered but not ordered:: none Medication administrations:: Medication Administration History Acetaminophen (Acetaminophen 325 Mg Tablet) 650 mg PO Q6H PRN PRN Reason: Fever >101.5 Stop: 09/21/24 14:28 Acetaminophen (Acetaminophen 325 Mg Tablet) 650 mg PO Q6H PRN PRN Reason: PAIN SCALE 1-3 (mild Stop: 09/21/24 14:28 Hydrocodone Bitart/Acetaminophen (Hydrocodone/Apap 10/325 Tab) 1 tab PO Q4HR PRN PRN Reason: PAIN RATED 7-10 Stop: 08/27/24 16:46 Cyclobenzaprine HCl (Cyclobenzaprine 5 Mg Tablet) 10 mg PO BID PRN PRN Reason: MUSCLE SPASMS Stop: 09/21/24 16:49 Dextrose (Dextrose 50%-Water Inj 50 Ml Syringe) 25 ml IV Q15MIN PRN PRN Reason: BG 50-70 responsive npo pt Stop: 09/21/24 16:12 Dextrose (Dextrose 50%-Water Inj 50 Ml Syringe) 50 ml IV Q15MIN PRN PRN Reason: BG <50 OR BG <70 & pt unresponsive Stop: 09/21/24 16:12 Doxycycline Hyclate (Doxycycline 100 Mg Tablet) 100 mg PO BID [facility] Stop: 08/29/24 20:59 Last Admin: 08/22/24 22:23 Dose: 100 mg Documented By: Glucagon (Glucagon Inj 1 Mg Vial) 1 mg IM Q15MIN PRN PRN Reason: BG <70, and no IV access Octreotide Acetate 1,000 mcg/ (Sodium Chloride) 102 mls @ 5.1 mls/hr IV .Q20H RINA; Protocol Stop: 08/27/24 16:01 Last Admin: 08/23/24 00:17 Dose: 50 mcg/hr, 5.1 mls/hr Documented By: Ceftriaxone Sodium 1,000 mg/ (Sodium Chloride) 50 mls @ 100 mls/hr IV QDAY [facility] Stop: 08/30/24 08:59 Propofol (Diprivan Ivpb) 1,000 mg in 100 mls @ 3.837 mls/hr IV .Q24H PRN; Protocol PRN Reason: PER PROTOCOL Stop: 09/22/24 03:03 Last Admin: 08/23/24 06:51 Dose: 30 mcg/kg/min, 23.024 mls/hr Documented By: CELINE Co-signed By: YAEL Titration: 08/23/24 06:51 Dose: Infused Documented By: CELINE Co-signed By: YAEL Titration: 08/23/24 06:00 Dose: 30 mcg/kg/min, 23.024 mls/hr Documented By: Titration: 08/23/24 05:00 Dose: 30 mcg/kg/min, 23.024 mls/hr Documented By: Titration: 08/23/24 04:00 Dose: 30 mcg/kg/min, 23.024 mls/hr Documented By: Titration: 08/23/24 03:50 Dose: 30 mcg/kg/min, 23.024 mls/hr Documented By: Titration: 08/23/24 03:45 Dose: 25 mcg/kg/min, 19.187 mls/hr Documented By: Titration: 08/23/24 03:40 Dose: 20 mcg/kg/min, 15.35 mls/hr Documented By: Titration: 08/23/24 03:35 Dose: 15 mcg/kg/min, 11.512 mls/hr Documented By: Titration: 08/23/24 03:30 Dose: 10 mcg/kg/min, 7.675 mls/hr Documented By: Admin: 08/23/24 03:10 Dose: 5 mcg/kg/min, 3.837 mls/hr Documented By: CMN Co-signed By: Fentanyl Citrate (Sublimaze Inj 2,500 Mcg/250 Ml Bag) 2,500 mcg in 250 mls @ 2.5 mls/hr IV .Q24H PRN; Protocol PRN Reason: PER PROTOCOL Stop: 08/28/24 03:03 Last Titration: 08/23/24 06:00 Dose: 125 mcg/hr, 12.5 mls/hr Documented By: Titration: 08/23/24 05:00 Dose: 125 mcg/hr, 12.5 mls/hr Documented By: Titration: 08/23/24 04:10 Dose: 125 mcg/hr, 12.5 mls/hr Documented By: Titration: 08/23/24 03:40 Dose: 75 mcg/hr, 7.5 mls/hr Documented By: Admin: 08/23/24 03:10 Dose: 25 mcg/hr, 2.5 mls/hr Documented By: CMN Co-signed By: Norepinephrine Bitartrate (Levophed In Ns 16mg/250ml) 16 mg in 250 mls @ 5.996 mls/hr IV .Q24H PRN; Protocol PRN Reason: PER protocol Stop: 09/22/24 03:06 Propofol (Diprivan Ivpb) 1,000 mg in 100 mls @ 3.837 mls/hr IV .Q24H PRN; Protocol PRN Reason: PER PROTOCOL Stop: 09/22/24 03:04 Insulin Human Lispro (Insulin Lispro (Admelog) 1 Unit/0.01 Ml Unit) 0 unit SC Q6HR RINA; Protocol Stop: 09/22/24 06:29 Last Admin: 08/23/24 06:49 Dose: 2 unit Documented By: CELINE Co-signed By: REZA Ondansetron HCl (Ondansetron Inj 2 Mg/Ml Inj 2 Ml) 4 mg IV Q6H PRN; Protocol PRN Reason: NAUSEA OR VOMITING Stop: 09/21/24 14:28 Pantoprazole Sodium (Pantoprazole Inj 40 Mg Vial) 40 mg IVP Q12HR [facility] Stop: 09/21/24 20:59 Last Admin: 08/22/24 21:30 Dose: 40 mg Documented By: Pregabalin (Pregabalin 75 Mg Capsule) 150 mg PO TID RINA Stop: 09/21/24 21:59 Last Admin: 08/23/24 05:44 Dose: Not Given Documented By: CELINE Non-Admin Reason: NPO Admin: 08/22/24 22:23 Dose: 150 mg Documented By: Discontinued Medications Albuterol/Ipratropium (Albuterol/Ipratropium (Duoneb) Rt Radha 3 Ml Nebu) 3 ml INH X1 ONE Stop: 08/22/24 08:08 Last Admin: 08/22/24 08:30 Dose: 3 ml Documented By: GLYNN Bumetanide (Bumetanide Inj 0.25 Mg/Ml Vial 4 Ml) 2 mg IVP X1 ONE Stop: 08/22/24 16:05 Last Admin: 08/23/24 03:35 Dose: Not Given Documented By: RADHA Non-Admin Reason: Duplicate Medication on eMAR Bumetanide (Bumetanide Inj 0.25 Mg/Ml Vial 10 Ml) Confirm Administered Dose 2.5 mg .ROUTE .STK-MED ONE Stop: 08/23/24 03:07 Last Admin: 08/23/24 03:35 Dose: Not Given Documented By: RADHA Non-Admin Reason: Duplicate Medication on eMAR Bumetanide (Bumetanide Inj 0.25 Mg/Ml Vial 4 Ml) 1 mg IVP X1 ONE Stop: 08/23/24 03:15 Last Admin: 08/23/24 03:25 Dose: Not Given Documented By: RADHA Non-Admin Reason: Discontinued Bumetanide (Bumetanide Inj 0.25 Mg/Ml Vial 4 Ml) 2 mg IVP X1 ONE Stop: 08/23/24 03:30 Last Admin: 08/23/24 03:06 Dose: 2 mg Documented By: CELINE Epinephrine HCl (Epinephrine Inj 1 Mg/Ml Amp) Confirm Administered Dose 1 mg .ROUTE .STK-MED ONE Stop: 08/23/24 03:08 Last Admin: 08/23/24 03:35 Dose: Not Given Documented By: RADHA Non-Admin Reason: Duplicate Medication on eMAR Epinephrine HCl (Epinephrine Inj 1 Mg/Ml Amp) 0.5 mg SC X1 ONE Stop: 08/23/24 03:38 Last Admin: 08/23/24 03:21 Dose: 0.5 mg Documented By: CELINE Ceftriaxone Sodium 1,000 mg/ (Sodium Chloride) 50 mls @ 100 mls/hr IV X1 ONE Stop: 08/22/24 14:15 Last Admin: 08/22/24 21:00 Dose: Not Given Documented By: Non-Admin Reason: PER pharmacy to put new order made aware Vancomycin HCl 2,000 mg/ (Sodium Chloride) 500 mls @ 150 mls/hr IV X1 ONE Stop: 08/22/24 17:05 Lactated Ringer's (Lactated Ringers) 1,000 mls @ 75 mls/hr IV .[id number] RINA Stop: 08/23/24 05:29 Last Admin: 08/23/24 03:24 Dose: Not Given Documented By: CMMeghan Non-Admin Reason: Discontinued Vancomycin HCl 1,500 mg/ (Sodium Chloride) 500 mls @ 200 mls/hr IV X1 ONE Stop: 08/22/24 19:59 Last Admin: 08/22/24 22:15 Dose: Not Given Documented By: ME Non-Admin Reason: per MD NOT TO GIVE Ceftriaxone Sodium 1,000 mg/ (Sodium Chloride) 50 mls @ 100 mls/hr IV X1 ONE Stop: 08/22/24 23:06 Last Infusion: 08/22/24 23:22 Dose: Infused Documented By: Admin: 08/22/24 22:52 Dose: 100 mls/hr Documented By: Fentanyl Citrate (Sublimaze Inj 2,500 Mcg/250 Ml Bag) Confirm Administered Dose 2,500 mcg in 250 mls @ ud IV .STK-MED ONE Stop: 08/23/24 02:55 Last Admin: 08/23/24 03:35 Dose: Not Given Documented By: CMN Non-Admin Reason: Duplicate Medication on eMAR Propofol (Diprivan Ivpb) Confirm Administered Dose 1,000 mg in 100 mls @ ud IV .STK-MED ONE Stop: 08/23/24 02:56 Last Admin: 08/23/24 03:35 Dose: Not Given Documented By: CMMeghan Non-Admin Reason: Duplicate Medication on eMAR Fentanyl Citrate (Sublimaze Inj 2,500 Mcg/250 Ml Bag) 2,500 mcg in 250 mls @ 2.5 mls/hr IV .Q24H PRN; Protocol PRN Reason: PER PROTOCOL Stop: 08/28/24 03:05 Insulin Human Lispro (Insulin Lispro (Admelog) 1 Unit/0.01 Ml Unit) 0 unit SC AC [facility]; Protocol Stop: 09/21/24 16:59 Last Admin: 08/23/24 03:25 Dose: Not Given Documented By: CMMeghan Non-Admin Reason: Wrong Time Lorazepam (Lorazepam 2 Mg/Ml Vial) 1 mg IVP X1 ONE Stop: 08/22/24 23:36 Last Admin: 08/22/24 23:51 Dose: 1 mg Documented By: Lorazepam (Lorazepam 2 Mg/Ml Vial) 1 mg IVP X1 ONE Stop: 08/23/24 01:21 Last Admin: 08/23/24 01:33 Dose: 1 mg Documented By: Methylprednisolone Sodium Succinate (Methylprednisolone Sod Succ 62.5 Mg/Ml 2ml Vial) 125 mg IVP X1 ONE Stop: 08/22/24 08:08 Last Admin: 08/22/24 08:47 Dose: 125 mg Documented By: SARAHI Methylprednisolone Sodium Succinate (Methylprednisolone Sod Succ 40 Mg Vial) 60 mg IVP X1 ONE Stop: 08/23/24 03:06 Methylprednisolone Sodium Succinate (Methylprednisolone Sod Succ 62.5 Mg/Ml 2ml Vial) Confirm Administered Dose 125 mg .ROUTE .STK-MED ONE Stop: 08/23/24 03:07 Last Admin: 08/23/24 03:35 Dose: Not Given Documented By: RADHA Non-Admin Reason: Duplicate Medication on eMAR Methylprednisolone Sodium Succinate (Methylprednisolone Sod Succ 62.5 Mg/Ml 2ml Vial) 125 mg IVP X1 ONE Stop: 08/23/24 03:15 Last Admin: 08/23/24 03:10 Dose: 125 mg Documented By: RADHA Pharmacy Consult (Vancomycin Pharmacy To Dose 1 Each Each) 1 each IV QDAY RINA Stop: 09/22/24 08:59 Quetiapine Fumarate (Quetiapine Fumarate 25 Mg Tablet) 25 mg PO X1 ONE Stop: 08/22/24 21:37 Last Admin: 08/22/24 22:23 Dose: 25 mg Documented By: Sodium Chloride (Sodium Chloride Rt 10% 15 Ml Nebu) 5 ml INH X1 ONE Stop: 08/22/24 16:30 Last Admin: 08/23/24 03:25 Dose: Not Given Documented By: ZEINAN Non-Admin Reason: Wrong Time albuterol and Solu-Medrol and Rocephin and vancomycin and transfusion Consultations Consultation(s) initiated? (list below): Yes Consultation #1 (Physician, Specialty, Details): Discussed test HPI, PMHx, lab, radiology results and/or management with hospitalist. Will admit for further evaluation and management. Accepts patient for admission. Time: 13:47 Diagnosis Shortness of Breath Differential Diagnosis: acute exacerbation of chronic obstructive airways disease, congestive heart failure, community acquired pneu monia, asthma with exacerbation, pulmonary embolism and other (PA, COPD, Influenza, COVID) Most likely diagnosis given after review of the tests above:: Acute on chronic respiratory failure with hypoxia, COPD, CHF, half-way- acquired pneumonia, severe anemia Admission Indicated Admission indicated?: indicated Explain why admission is indicated or not indicated:: Acute on chronic respiratory failure with hypoxia, COPD, CHF, half-way- acquired pneumonia, severe anemia Admission Request Was there a request for admission?: Yes Admission Attestation Admission request attestation: Discussed case with Hospitalist service regarding admission. Discussed patients ED course, exam findings, labs, and radiology results. The Hospitalist [agrees] to accept the patient for admission. Disposition Plan Disposition Plan: Admit Discharge Plan Plan Patient Disposition: Admit Acute Care w/in Hospital Problem List Clinical Impression: Acute on chronic respiratory failure with hypoxia, COPD (chronic obstructive pulmonary disease), CHF (congestive heart failure), [facility]-acquired pneumonia, Severe anemia
--- NOTE | 2024-08-22 08:06 | XR_ITS ---
Examination: CTA chest with intravenous contrast 2-D reconstructions 3-D reconstructions, vascular Date and time of exam: August 22, 2024 1300 hours INDICATIONS: Onset chest pain shortness of breath today COMPARISON: May 10, 2024 CTDI: vol (mGy) 47.7 DLP: (mGycm) 726 Technique: Multiple axial sections of the thorax have been obtained. 3 mm slice thickness, from below the hemidiaphragms to above the apices of the lungs. Mediastinal and lung density settings have been obtained. 2-D sagittal and coronal reconstructions. 3-D angiographic renderings, 3-D volume renderings, 3D post processing, vascular maximum intensity projections obtained. Contrast administered is 60 cc Isovue-300. Low dose protocols were performed. One or more of the following dose reduction techniques were used; automated exposure control, adjustment of the mA and/or KV according to patient size, use of iterative reconstruction technique. Findings: No thoracic aortic aneurysm dilatation or dissection Main pulmonary artery segment measures 35 mm Pulmonary artery opacification peripheral branches is poor No gross filling defects noted Trace pericardial effusion There are poorly defined opacities in the right upper lobe consistent with pneumonia Prominent vascular congestion with moderate right and mild left pleural effusions Liver irregular in contour on the partly visualized Gallbladder wall appears thickened Spleen is not enlarged IMPRESSION: Pulmonary artery hypertension Peripheral pulmonary artery opacification is poor Mild heart failure Pneumonia right upper lobe Recommend gallbladder sonography to exclude cholecystitis
--- NOTE | 2024-08-22 08:06 | XR_ITS ---
Examination: CT brain head without contrast. 2-D sagittal coronal reconstructions Date and time of exam:August 22, 2024 1248 hours INDICATIONS: Altered mental status today COMPARISON: August 06, 2024 CTDI: vol (mGy):101 DLP: (mGycm):2106 Technique: Multiple CT axial sections of the brain have been obtained, 5 mm slice thickness. Contrast has not been administered. 2-D sagittal, coronal reconstructions have been obtained Low dose protocols were performed. One or more of the following dose reduction techniques were used; automated exposure control, adjustment of the mA and/or KV according to patient size, use of iterative reconstruction technique. Findings: No significant ventricular enlargement. Intra-axial or extra-axial hemorrhage density is not seen. No mass effect or midline shift Basal cisterns are not remarkable. Fourth ventricle is midline. Cranial vault intact. Impression: Negative for acute hemorrhage, mass effect or midline shift Advise clinical correlation follow-up accordingly
--- NOTE | 2024-08-22 08:07 | EKG_ITS ---
[facility] Test Date: 2024-08-22 Pat Name: JILL HIDALGO Department: Room: - Gender: Male Past Due Accounts Clerk: : 1970 Requested By: Navarro Victor Order Number: [id number] Reading MD: Navarro Victor Measurements Intervals [place] Rate: 75 P: 4 CT: 185 QRS: -26 QRSD: 106 T: 75 QT: 384 QTc: 430 Interpretive Statements SINUS RHYTHM BORDERLINE LEFT AXIS DEVIATION [QRS AXIS < -20] LOW QRS VOLTAGE IN EXTREMITY LEADS [QRS DEFLECTION < 0.5 mV IN LIMB LEADS] Compared to ECG 08/11/2024 17:06:17 Low QRS voltage now present T-wave abnormality no longer present /store/S0/[id number].pdf
--- NOTE | 2024-08-22 08:07 | XR_ITS ---
Examination: AP chest single view Technique one AP portable upright chest single view Exam date and time: August 22, 2024 0849 hours Comparison August 11, 2024 INDICATIONS: Difficulty breathing today. FINDINGS: Prominent CHF Enlarged cardiac contour with prominent vascular congestion perihilar basilar edema with large right and moderate left pleural effusions IMPRESSION: Prominent CHF
[2024-08-22] MEDS: ALBUTEROL/IPRATROPIUM (Duoneb) RT SOL 3 ML NEBU INH (08:30)
[2024-08-22] MEDS: MethylPREDNISolone SOD SUCC 62.5 MG/ML 2ML VIAL 125 MG IVP (08:47)
[2024-08-22 08:50] LABS: Base Excess 5 (-3-3); HCO3 31 mEq/L (20-26); Inspired Oxygen, FIO2 4 %; O2 Saturation 94 % (91-98); PCO2 55 mmHg (32.0-48.0); PO2 70 mmHg (83-108); pH, Arterial 7.36 (7.35-7.45)
[2024-08-22 08:51] LABS: Allen Test Performed/OK; Puncture Site Right Radial
[2024-08-22 10:29] LABS: Basophils % (Auto) 0 % (0-2.5); Eosinophils # (Auto) 0.2 Thou/mm3 (0.0-0.5); Eosinophils % (Auto) 2 % (0-10); Immature Granulocytes % (Auto) 1 % (0-0); Immature Granulocytes Auto 0.09 Thou/mm3 (0.00-0.00); Lymphocytes # (Auto) 0.8 Thou/mm3 (1.0-4.8); Lymphocytes % (Auto) 11 % (10-50); Mean Corpuscular HGB Conc 29.3 g/dl (31.0-37.0); Mean Corpuscular Volume 93 fL (80-100); Monocytes # (Auto) 0.6 Thou/mm3 (0.0-0.8); Monocytes % (Auto) 8 % (0-12); Neutrophils # (Auto) 5.6 Thou/mm3 (1.8-7.7); Neutrophils % (Auto) 78 % (37-80); Nucleated Red Blood Cell % 0 /100 WBC (0); Platelet Count 149 Thou/mm3 (140-440); RDW Standard Deviation 60.8 fL (35.1-43.9); Red Blood Count 1.59 Miln/mm3 (4.50-5.90); White Blood Count 7.2 Thou/mm3 (3.8-10.6)
[2024-08-22 10:55] LABS: B-Type Natriuretic Peptide 149 pg/mL (0-100)
[2024-08-22 10:58] LABS: Thyroid Stimulating Hormone 4.85 uIU/mL (0.55-4.78); Troponin I < 0.020 ng/mL (0.0-0.045)
[2024-08-22 11:00] LABS: Hematocrit 14.7 % (41.0-53.0); Hemoglobin 4.3 g/dL (13.5-16.0)
[2024-08-22 11:45] LABS: Collection Type, Urine Clean Catch
[2024-08-22 12:00] LABS: Bacteria,Urine Rare; Bilirubin,Urine Negative (Negative); Blood,Urine Negative (Negative); Clarity,Urine Clear (Clear/Hazy); Color,Urine Lt-Yellow (Lt Yel-Yel); Culture Indicated,Urine Not Indicated; Glucose, Urine Negative (Negative); Ketones,Urine Negative (Negative); Leukocyte Esterase,Urine Negative (Negative); Nitrite,Urine Negative (Negative); PH,Urine 5.5 (5.0-7.0); Protein,Urine 1+ (Neg - Trace); RBC,Urine 3 /hpf (0-3); Specific Gravity,Urine 1.015 (1.001-1.035); Squamous Epithelial Cell,Urine 1 /hpf (0-5); Urobilinogen,Urine Negative mg/dL (0.0-1.0); WBC,Urine 1 /hpf (0-5)
[2024-08-22 12:04] LABS: Alanine Aminotransferase 19 U/L (10-49); Albumin, Serum 3.1 gm/dL (3.5-5.0); Albumin/Globulin Ratio 1.3 (1.2-2.2); Alkaline Phosphatase 61 U/L (46-116); Anion Gap 7 (7-16); Aspartate Amino Transferase 16 U/L (0-34); BUN/Creatinine Ratio 62 Ratio (12-20); Bilirubin,Total < 0.2 mg/dL (0.3-1.2); Blood Urea Nitrogen 93 mg/dL (9-23); C-Reactive Protein < 0.4 mg/dL (0.0-0.9); Calcium 8.4 mg/dL (8.3-10.6); Calcium (Corrected) 9.1 mg/dL (8.5-10.1); Carbon Dioxide 29.7 mMol/L (20.0-31.0); Chloride 106 mMol/L (98-107); Creatinine (Component) 1.5 mg/dL (0.6-1.3); Estimated Creatinine Clearance 72.8 mL/min (>60); Globulin 2.3 gm/dL (2.3-3.5); Glucose 159 mg/dL (74-106); Magnesium 2.1 mg/dL (1.6-2.6); Osmolality,Calculated 316 (275-295); Potassium 5.2 mMol/L (3.4-5.1); Sodium 143 mMol/L (136-145); Total Protein 5.4 gm/dL (5.7-8.2); eGFR 54 See Note
[2024-08-22 12:04] LABS: Amphetamine/Methamp Scrn,U Negative (Negative); Barbiturate Screen,Urine Negative (Negative); Benzodiazepines Screen,Urine Negative (Negative); Benzoylecgonine Screen, Ur Negative (Negative); Fentanyl Screen,Urine Negative (Negative); Opiate Screen,Urine Positive (Negative); THC Screen,Urine Negative (Negative)
[2024-08-22 12:16] LABS: D-Dimer 564 ng/mL (<600)
[2024-08-22 12:18] LABS: Sed Rate (ESR) 21 mm/hr (0-20)
[2024-08-22 15:49] LABS: Respiratory Syncytial Virus Ag Negative (Negative)
--- NOTE | 2024-08-22 16:15 | ESHP_ITS ---
<Statement entered by Jaquelin Sparrow MD - 08/23/24 05:43> Patient is a 54-year-old male with past medical history significant for insulin- dependent diabetes, CAD status post stents, HFpEF, CVA, coronary artery stenosis status post bilateral endarterectomy, PE x 2 on Eliquis, hypertension, chronic CO2 due to CAROLYN and OHS who presented to the ED for severe shortness of breath and dizziness. Incidentally, patient was found to have low hemoglobin of 4.3. Patient is unsure why he is in the hospital, was told to come to the ER. Labs significant for low hemoglobin elevated D-dimer, and ABG showing chronic CO2 retention around his baseline and elevated creatinine of 1.5. U tox was positive for opiates. CTA of chest showed pulmonary artery hypertension and mild heart failure. Patient admitted for further management of acute blood loss anemia. GI consulted, and recommended to start Protonix and octreotide drip. Patient will also need to wear his CPAP at night. I discussed with and supervised the clinical nursing intern physician who took care of this patient. I personally saw and examined the patient and discussed the assessment and plan with the entire medicine team, including my attending Dr. Whitfield, I agree with most of the assessment and plan as documented below Jaquelin Sparrow M.D. PGY-2 Disclaimer: Despite multiple revisions, due to the dictation software being used, the document bellow may not be free of grammatical errors including phonetic/typographic errors. However, this does not deter from our commitment to providing health care in the patient's best interest in mind. Documentation for date of: 08/22/24 HPI History of Present Illness Chief complaint: GI bleed History of present illness: Patient is poor historian gaps filled with chart review 54-year-old male with past medical history of insulin-dependent diabetes, CAD status post stents, heart failure with preserved ejection fraction last EF 55 to 60% on April 2024, CVA, carotid artery stenosis status post bilateral endarterectomy, history of pulmonary embolism on Eliquis, hypertension, chronic CO2 retainer due to obstructive sleep apnea and obesity hypoventilation system who is noncompliant on his CPAP machine, cirrhosis, history of vertebral hemangioma status post radiation therapy on chronic morphine who presented to the ED for shortness of breath and dizziness. When speaking to the patient he does not know why he was brought here to the ED. He does state however that he has been having dark tarry stools sometimes bright red blood in the stools has been going on for 1 to 2 months ago. However on labs in the ED found to have a hemoglobin of 4. Blood transfusions were initiated and GI specialist Dr. Wakefield was consulted. Admitted for acute blood loss anemia. ED course: Vitals on arrival show blood pressure 119/51, heart rate 76, saturating 100% on 4 L nasal cannula. Labs significant for hemoglobin 4.3, hematocrit 14.7%, ESR 21, D-dimer 564, ABG shows chronic CO2 retention, chemistry shows potassium 5.2, BUN 93, creatinine 1.5, glucose 159, BNP 149, TSH 4.85, UA negative for any bacterial infection, U-Tox positive for opiates. EKG shows normal sinus rhythm, chest CTA shows pulmonary artery hypertension, mild heart failure, pneumonia of the right upper lobe, chest x-ray shows prominent CHF, head CT was negative for acute hemorrhage, mass effect, or midline shift PMHx: As above SxHx: Endarterectomy, stent placement Social Hx: Occasional alcohol drinker, 20 pack year smoking history, current marijuana user. FHx: Unknown Review of Systems Review of Systems Narrative Review of Systems: Narrative ROS GENERAL: Denies fevers/chills or diaphoresis. HEENT: + headache, denies visual/hearing changes. Denies nasal discharge. NEURO: + weakness, denies difficulty speaking. CARDIO: Denies chest pain or palpitations. PULM: + SOB, coughing, or wheezing. GI: Denies abdominal pain, N/V/C/D/reflux/gas, + bright red blood per rectum or melena. Reports having BMs. URO: Denies burning/itching/pain/urinary changes. MSK/EXT/SKIN: Denies joint/skeletal/muscle pain, issues/changes in upper or lower extremities, itchiness, or superficial pain. PSYCH: Cooperative, pleasant mood & affect. The rest of the review of systems is otherwise negative. Exam Vital Signs Temp Pulse Resp BP Pulse Ox O2 Del Method O2 Flow Rate 97.9 F 86 20 138/84 H 99 Nasal Cannula 5 08/22/24 15:54 08/22/24 15:54 08/22/24 15:54 08/22/24 15:54 08/22/24 15:54 08/22/24 15:54 08/22/24 15:54 Narrative Exam Physical Exam GENERAL: NAD, AAOx3, morbidly obese HEENT: Moist mucosa. Eyes open, symmetrical, & clear CARDIO: Heart RRR, no obvious murmurs PULM: No noted coughing/dyspnea CTA B/L, no R/W/R GI: Abdomen soft, nondistended, no pain on palpation. BSx4 SKIN/MSK/EXT: Pressure ulcer in the sacral region, no pain on palpation. Pedal pulses present B/L NEURO: AAOx3, no focal neuro deficits, able to move all 4 extremities Results: Labs 08/22/24 10:10 08/22/24 10:10 Labs: Short CBC 08/22/24 Range/Units 10:10 WBC 7.2 (3.8-10.6) Thou/mm3 Hgb 4.3 L* (13.5-16.0) g/dL Hct 14.7 L* (41.0-53.0) % Plt Count 149 (140-440) Thou/mm3 BMP 08/22/24 10:10 Sodium 143 Potassium 5.2 H Chloride 106 Carbon Dioxide 29.7 BUN 93 H Creatinine 1.5 H Glucose 159 H Calcium 8.4 Cardiac Enzymes 08/22/24 Range/Units 10:10 Troponin I < 0.020 (0.0-0.045) ng/mL Liver Function 08/22/24 Range/Units 10:10 Total Bilirubin < 0.2 L (0.3-1.2) mg/dL AST 16 (0-34) U/L ALT 19 (10-49) U/L Alkaline Phosphatase 61 (46-116) U/L Albumin 3.1 L (3.5-5.0) gm/dL Urine 08/22/24 Range/Units 11:30 Urine Color Lt-Yellow (Lt Yel-Yel) Urine Clarity Clear (Clear/Hazy) Urine pH 5.5 (5.0-7.0) Ur Specific [place] 1.015 (1.001-1.035) Urine Protein 1+ A (Neg - Trace) Urine Glucose (UA) Negative (Negative) ABG Interpretation ABG results: 08/22/24 08:37 ABG pH 7.36 ABG pCO2 55 H ABG pO2 70 L ABG HCO3 31 H ABG O2 Saturation 94 ABG Base Excess 5 H Quality Measures Quality Measures none Medications Home Medications and Allergies Home Medications ?Medication ?Instructions ?Recorded ?Confirmed ?Type hydrocodone 10 mg-acetaminophen 1 tab PO Q4H PRN pain, mild 10/22/23 08/07/24 History 325 mg tablet pregabalin 150 mg capsule 150 mg PO TID 10/22/2308/07 History morphine 15 mg tablet,extended 15 mg PO QDAY PRN Pain, Severe 01/14/24 07/31/24 History release apixaban 5 mg tablet 5 mg PO BID 06/25/24 5 History ascorbic acid (vitamin C) 500 mg 500 mg PO BID 5 08/07/24 History tablet (Vitamin C) atorvastatin 80 mg tablet 80 mg PO QPM 06/25/24 History budesonide-formoterol HFA 160 2 puff inhalation BID 07/31/24 History mcg-4.5 mcg/actuation aerosol inhaler vitamin B complex-vitamin C-folic 1 tab PO QDAY 08/07/24 History acid 0.8 mg tablet (Sapphire-Holly) insulin lispro 100 unit/mL See Protocol subcut AC 06/2207/31/24 History subcutaneous pen (Humalog KwikPen (U-100) Insulin) loperamide 2 mg tablet 2 mg PO Q6H PRN Diarrhea 08/07/24 History albuterol sulfate 90 mcg/actuation 2 inh inhalation Q4 H PRN shortness 08/07/24 08/07/24 History breath activated powder inhaler of breath or wheezing (ProAir RespiClick) amlodipine 10 mg tablet 10 mg PO DAILY 08/07/2407/22 History aspirin 81 mg tablet,delayed 81 mg PO QDAY 08/07/24 History release (Ecotrin Low Strength) bisacodyl 10 mg rectal suppository 10 mg AR QDAY PRN c onstipation 08/07/24 08/07/24 History (Dulcolax (bisacodyl)) carvedilol 6.25 mg tablet 6.25 mg PO BID 08/07/2407/22 History clopidogrel 75 mg tablet (Plavix) 75 mg PO QDAY 08/07/24 History cyclobenzaprine 10 mg tablet 10 mg PO Q12H PRN muscle spasm 08/07/24 08/07/24 History ergocalciferol (vitamin D2) 1,250 50,000 unit PO QWEEK 08/07/24 08/07/24 History mcg (50,000 unit) capsule ipratropium 0.5 mg-albuterol 3 mg 3 ml inhalation BID PRN shortness 08/07/24 08/07/24 History (2.5 mg base)/3 mL nebulization of breath soln lorazepam 2 mg tablet 2 mg PO HS 08/07/24 08/07/24 History losartan 50 mg tablet 100 mg PO QDAY 08/07/2407/22 History magnesium hydroxide 400 mg/5 mL 30 ml PO Q72H PRN cons tipation 08/07/24 08/07/24 History oral suspension (Milk of Magnesia) meclizine 25 mg tablet 25 mg PO DAILY PRN nausea an d 08/07/24 08/07/24 History vomiting oxybutynin chloride 5 mg tablet 5 mg PO BID 08/07/24 0 08/07/24 History sitagliptin phosphate 100 mg 100 mg PO DAILY 08/07/24 08/07/24 History tablet (Januvia) Allergies Allergy/AdvReac Type Severity Reaction Status Date / Time ketorolac Allergy Severe TONGUE Verified 07/26/23 22:55 SWELLS UP escitalopram Allergy Intermediate Rash Verified 06/28/24 10:52 Visit Medications Acetaminophen (Acetaminophen 325 Mg Tablet) 650 mg PO Q6H PRN PRN Reason: Fever >101.5 Stop: 09/21/24 14:28 Acetaminophen (Acetaminophen 325 Mg Tablet) 650 mg PO Q6H PRN PRN Reason: PAIN SCALE 1-3 (mild Stop: 09/21/24 14:28 Dextrose (Dextrose 50%-Water Inj 50 Ml Syringe) 25 ml IV Q15MIN PRN PRN Reason: BG 50-70 responsive npo pt Stop: 09/21/24 16:12 Dextrose (Dextrose 50%-Water Inj 50 Ml Syringe) 50 ml IV Q15MIN PRN PRN Reason: BG <50 OR BG <70 & pt unresponsive Stop: 09/21/24 16:12 Glucagon (Glucagon Inj 1 Mg Vial) 1 mg IM Q15MIN PRN PRN Reason: BG <70, and no IV access Lactated Ringer's (Lactated Ringers) 1,000 mls @ 75 mls/hr IV .[id number] [facility] Stop: 08/23/24 05:29 Octreotide Acetate 1,000 mcg/ (Sodium Chloride) 102 mls @ 5.1 mls/hr IV .Q20H [facility]; Protocol Stop: 08/27/24 16:01 Octreotide Acetate 1,000 mcg/ (Sodium Chloride) 102 mls @ 5.1 mls/hr IV .Q20H [facility]INA; Protocol Stop: 08/23/24 12:14 Ceftriaxone Sodium 1,000 mg/ (Sodium Chloride) 50 mls @ 100 mls/hr IV QDAY [facility] Stop: 08/30/24 08:59 Insulin Human Lispro (Insulin Lispro (Admelog) 1 Unit/0.01 Ml Unit) 0 unit SC AC [facility]INA; Protocol Stop: 09/21/24 16:59 Ondansetron HCl (Ondansetron Inj 2 Mg/Ml Inj 2 Ml) 4 mg IV Q6H PRN; Protocol PRN Reason: NAUSEA OR VOMITING Stop: 09/21/24 14:28 Pantoprazole Sodium (Pantoprazole Inj 40 Mg Vial) 40 mg IVP Q12HR [facility] Stop: 09/21/24 20:59 Discontinued Medications Albuterol/Ipratropium (Albuterol/Ipratropium (Duoneb) Rt Radha 3 Ml Nebu) 3 ml INH X1 ONE Stop: 08/22/24 08:08 Last Admin: 08/22/24 08:30 Dose: 3 ml Bumetanide (Bumetanide Inj 0.25 Mg/Ml Vial 4 Ml) 2 mg IVP X1 ONE Stop: 08/22/24 16:05 Ceftriaxone Sodium 1,000 mg/ (Sodium Chloride) 50 mls @ 100 mls/hr IV X1 ONE Stop: 08/22/24 14:15 Vancomycin HCl 2,000 mg/ (Sodium Chloride) 500 mls @ 150 mls/hr IV X1 ONE Stop: 08/22/24 17:05 Methylprednisolone Sodium Succinate (Methylprednisolone Sod Succ 62.5 Mg/Ml 2ml Vial) 125 mg IVP X1 ONE Stop: 08/22/24 08:08 Last Admin: 08/22/24 08:47 Dose: 125 mg Assessment & Plan Plan 54-year-old male with past medical history of insulin-dependent diabetes, CAD status post stents, heart failure with preserved ejection fraction last EF 55 to 60% on April 2024, CVA, carotid artery stenosis status post bilateral endarterectomy, history of pulmonary embolism on Eliquis, hypertension, chronic CO2 retainer due to obstructive sleep apnea and obesity hypoventilation system who is noncompliant on his CPAP machine, cirrhosis, history of vertebral hemangioma status post radiation therapy on chronic morphine who presented to the ED for shortness of breath and dizziness. When speaking to the patient he does not know why he was brought here to the ED. He does state however that he has been having dark tarry stools sometimes bright red blood in the stools has been going on for 1 to 2 months ago. However on labs in the ED found to have a hemoglobin of 4. Blood transfusions were initiated and GI specialist Dr. Wakefield was consulted. Admitted for acute blood loss anemia. #Acute blood loss anemia #History of cirrhosis Patient states having dark tarry stools sometimes bright red blood per rectum Patient states having headaches, dizziness Patient also does have history of cirrhosis as per chart review In the ED patient was found to hemoglobin of 4.[address] Wakefield recommended to keep patient n.p.o. for possible EGD evaluation in the a.m. ? Octreotide drip ? Pantoprazole 40 mg IV twice daily ? GI Dr. Wakefield consulted, appreciate recommendations ? Transfuse 3 PRBCs ? LR at 75 cc/h ? Monitor post-transfusion H&H ? Ceftriaxone for SBP prophylaxis ? Bumex 2 mg IV x 1 after transfusions #Acute on chronic hypercapnic hypoxic respiratory failure #Right upper lobe pneumonia Patient presented with chief complaint of shortness of breath patient usually uses 2 L of home oxygen however required 4 L at this time Chest x-ray showed prominent CHF Chest CTA showed right upper lobe pneumonia ? Blood cultures ordered ? Sputum cultures ordered ? On ceftriaxone #Acute kidney injury Likely in the setting of acute blood loss anemia Baseline creatinine seems to be around 0.8 current creatinine 1.5 ? On LR at 75 cc/h #Obstructive sleep apnea #Obesity hypoventilation syndrome Patient has histories of these diagnoses however patient is noncompliant with his BiPAP/CPAP machine at night Patient is chronic CO2 retainer evidenced by ABGs ? BiPAP at night #History of coronary artery disease status post stents #History of heart failure with preserved ejection fraction #History of CVA Last echo from April 2024 showed ejection fraction 55-60% Shortness of breath likely in the setting of right upper lobe pneumonia and acute blood loss anemia BNP 149, chest x-ray shows prominent CHF, however No evidence of crackles or lower extremity edema Holding aspirin and Plavix at this time #History of pulmonary embolism Patient to be on Eliquis however due to acute blood loss anemia will hold on Eliquis at this time #Insulin-dependent diabetes mellitus ? SSI ? Hypoglycemia protocol #Chronic pain ? Resume pain meds as taken at home Case discussed with my senior Dr. Sparrow PGY-[address] Roseann Tony MD PGY-1 Disposition: Med telemetry Fluids: LR at 75 cc/h Feeding: NPO Thrombo prophylaxis: SCDs Gastric Ulcer prophylaxis: Pantoprazole 40 mg IV BID CODE STATUS: Full code Attending Provider Attestation/Addendum I have examined the patient, reviewed labs and imaging findings, discussed the case with the resident(s), and reviewed entered orders. I agree with the plan of care as outlined in this note, with these additional summaries/recommendations: Patient is a 54 year old male with medical history of HFpEF, CAD post stent placement, DM2, COPD, CVA, bilateral endarterectomy in 2019, PE presently on Eliquis, hypertension, CAROLYN, cirrhosis, CBP on opioids, history of vertebral hemangioma and medical noncompliance who presented to [facility] emergency department on 08/22/2024 with chief complaint of shortness of breath and altered mental status. In the emergency department patient was found to have a hemoglobin of 4.3 and thus hospitalist team consulted for continuation of care. Patient seen at bedside. He states he does not know why he was brought to the hospital and states he feels fine. He is requesting medical staff to go to his facility and retrieve his phone which we informed him we are not able to do. Patient has history of BiPAP/CPAP noncompliance and suspect patient removed his mask at [facility] and had worsening hypoxia and possibly altered mental status. At bedside patient appears to be at his baseline mental status and does not appear to be in respiratory distress with appropriate sats. ABG showed minimal hypercapnia which appears to be patient's baseline. Patient has a lengthy history of COPD/CAROLYN/OHS. I do not feel patient is in COPD exacerbation at this time. Will place breathing treatments as needed and patient encouraged to use BiPAP/CPAP mask whenever sleeping. Patient was found to have a hemoglobin of 4.3 on admission. Blood products ordered by ER provider and currently being transfused. Patient states he thinks his stool has been darker but has not been looking. We will consult gastroenterology, recommendations appreciated. Start IV Rocephin, IV fluids, IV Protonix, and octreotide gtt. Previous colonoscopy on 07/18/2024 showed hemorrhoids, diverticulosis, polyp in cecum, and polyp in rectum. EGD on 06/27/2024 showed esophagitis, gastritis, duodenal ulcers, and a large amount of fluid in the body of the stomach. Hold all anticoagulation at this time. Clear liquid diet okay for now. Appreciate gastroenterology Yemi. Hold home Eliquis. Patient was also noted to have acute kidney injury with creatinine 1.5 on admission and baseline appears around 0.8. Most likely secondary to prerenal azotemia and on IV fluids. We will monitor fluid status closely given history of HFpEF. Renally dose medications and avoid nephrotoxic agents. Continue pain management for chronic back pain. Start insulin sliding scale with bolus insulin for history of diabetes mellitus type 2. Follow-up posttransfusion H&H. Repeat hematology and chemistry panel in AM. Dr. Roseann MD
[2024-08-22] MEDS: PANTOPRAZOLE INJ 40 MG VIAL IVP (21:30)
[2024-08-22] MEDS: PREGABALIN 75 MG CAPSULE 150 MG PO (22:23)
[2024-08-22] MEDS: QUEtiapine FUMARATE 25 MG TABLET PO (22:23)
[2024-08-22] MEDS: DOXYCYCLINE 100 MG TABLET PO (22:23)
[2024-08-22] MEDS: cefTRIAXone 1,000 MG in SODIUM CHLORIDE 0.9% (Popper) 50 ML 100 MG IV (22:52)
[2024-08-22] MEDS: LORazepam 2 MG/ML VIAL 1 MG IVP (23:51)
[2024-08-23] VITALS (167 sets, daily range): BP systolic 103–179; BP diastolic 46–108; PULSE 65–88; RESP 6–27; TEMP 36.1–37.1; O2SAT 92–100; BMI 47.7; BMI 47.8
[2024-08-23] MEDS: OCTREOTIDE ACET INJ 1,000 MCG in SODIUM CHLORIDE 0.9% 100 ML 5.1 MCG IV ×2 (00:17→21:28)
[2024-08-23] MEDS: LORazepam 2 MG/ML VIAL 1 MG IVP (01:33)
--- NOTE | 2024-08-23 02:27 | PC.NURSE ---
AT 02:25 AM, [employer] HAT BLOCKER REPORTED PATIENT'S HR DROPPED TO 36, PROFESSOR OF POLITICAL SCIENCE GOT IN PT'S ROOM TO ASSESS PT, NO RESPONSE NOTED WHEN PT WAS CALLED BY NAME AND NO RESPONSE BY SHAKING. DOSIER OPERATOR CALLED. ICU CHARGE AT BEDSIDE AND ASSESSED PT. PROFESSOR OF POLITICAL SCIENCE, ICU CHARGE AND PT'S SITTER TURNED PT ON HIS BACK SINCE HE WAS LYING DOWN ON HIS STOMACH.ICU CHARGE NURSE ASSESSED PATIENT NO PULSE DETECTED .CODE BLUE ACTIVATED.
--- NOTE | 2024-08-23 03:03 | XR_ITS ---
Examination: AP chest single view Technique one AP portable supine chest single view Exam date and time: August 23, 2024 0311 hours Comparison August 22, 2024 INDICATIONS: Hypoxic respiratory failure postintubation FINDINGS: Prominent heart failure with enlargement cardiac contour with vascular congestion and perihilar edema Endotracheal tube tip 4.8 cm above isidro Orogastric tube tip distal stomach IMPRESSION: Prominent heart failure Endotracheal tube tip 4.8 cm above isidro
--- NOTE | 2024-08-23 03:03 | ECHO_ITS ---
Transthoracic Echo Report Ht (in): 69 Wt (lb): 282 Exam Location: Portable Status: Inpatient [employer] Specialist: LEVI Argueta^^^^ Indications: Procedure Performed: BP: 142 / 71 HR: 67 Technical Quality: Technically difficult study MEASUREMENTS (Male / Female) Normal Values 2D ECHO LV Diastolic Diameter PLAX 6.2 cm 4.2 - 5.9 / 3.9 - 5.3 cm LV Systolic Diameter PLAX 4.2 cm IVS Diastolic Thickness 0.9 cm 0.6 - 1.0 / 0.6 - 0.9 cm LVPW Diastolic Thickness 1.0 cm 0.6 - 1.0 / 0.6 - 0.9 cm LV Relative Wall Thickness 0.3 LVOT Diameter 1.9 cm Aortic Root Diameter 3.7 cm LA Systolic Diameter LX 3.4 cm 3.0 - 4.0 / 2.7 - 3.8 cm LV Ejection Fraction MOD BP 58.6 % >= 55 % LV Cardiac Index MOD BP 2674.3 cm?/min?m? LV Ejection Fraction MOD 4C 57.3 % LV Cardiac Index MOD 4C 3591.9 cm?/min?m? LV Ejection Fraction 4C AL 57.6 % LV Cardiac Index 4C AL 3736.5 cm?/min?m? LV Ejection Fraction MOD 2C 57.2 % LV Cardiac Index MOD 2C 1664.9 cm?/min?m? LV Ejection Fraction 2C AL 58.4 % LV Cardiac Index 2C AL 1709.6 cm?/min?m? LA Volume Index 24.1 cm?/m? 16 - 28 cm?/m? Ascending Aorta Diameter 3.2 cm DOPPLER AV Peak Velocity 183.3 cm/s AV Peak Gradient 13.4 mmHg AV Mean Gradient 8.0 mmHg AV Velocity Time Integral 49.1 cm AI Peak Velocity 141.0 cm/s AI Peak Gradient 8.0 mmHg AI Pressure Half Time 473.0 ms LVOT Peak Velocity 86.5 cm/s LVOT Peak Gradient 3.0 mmHg LVOT Velocity Time Integral 24.2 cm LVOT Cardiac Index 1799.0 cm?/min?m? AV Area Cont Eq vti 1.4 cm? AV Area Cont Eq pk 1.3 cm? MV Area PHT 3.8 cm? MR Peak Velocity 209.0 cm/s MR Peak Gradient 17.5 mmHg Mitral E Point Velocity 92.9 cm/s Mitral A Point Velocity 93.2 cm/s Mitral E to A Ratio 1.0 LV E' Lateral Velocity 7.9 cm/s Mitral E to LV E' Lateral Ratio 11.8 LV E' Septal Velocity 7.0 cm/s Mitral E to LV E' Septal Ratio 13.3 TR Peak Velocity 202.0 cm/s TR Peak Gradient 16.3 mmHg PV Peak Velocity 87.5 cm/s PV Peak Gradient 3.1 mmHg RVOT Peak Velocity 63.5 cm/s FINDINGS Left Ventricle Normal left ventricular size, wall thickness, systolic function with no obvious regional wall motion abnormalities.there is grade II diastolic dysfunction of the left ventricle (pseudonormal filling pattern). The left ventricular ejection fraction is normal, estimated at 55-60%. Right Ventricle The right ventricle is normal in size and systolic function. The estimated right ventricular systolic pressure, 21 mmHg. Left Atrium The left atrium is normal by two-dimensional, color flow and Doppler imaging with no structural abnormalities, no thrombus formation present. Right Atrium The right atrium is normal by two-dimensional imaging, color flow and Doppler imaging with no structural abnormalities, no thrombus formation present. Atrial Septum The interatrial septum appears normal with no evidence of a shunt. Aorta The aorta is normal by two-dimensional, color flow and Doppler interrogation. Mitral Valve Mild mitral annular calcification. Mild mitral regurgitation. Aortic Valve Mild aortic valve stenosis. Diffuse calcification of the aortic valve. Trace to mild aortic valve regurgitation. Tricuspid Valve There is mild tricuspid valve regurgitation. Pulmonic Valve Trivial pulmonic valve regurgitation. Vessels The pulmonary artery appears normal. The inferior vena cava pulmonary and hepatic veins appear normal. Pericardium There is a tiny, hemodynamically insignificant pericardial effusion. CONCLUSIONS indication: cardiac arrest LV appears normal with EF 55-60%. Diastolic Dysfunction II is present. RV appears normal with RVSP 21 mmHg. MV has mild MR & MAC AOV has mild & AI. TV has mild TR. small pericardial effusion located by LV Narinder Gonzalez (Electronically Signed) Final Date: 23 August 2024 16:13
[2024-08-23] MEDS: BUMETANIDE INJ 0.25 MG/ML VIAL 4 ML 2 MG IVP (03:06)
[2024-08-23] MEDS: MethylPREDNISolone SOD SUCC 62.5 MG/ML 2ML VIAL 125 MG IVP (03:10)
[2024-08-23] MEDS: fentaNYL 2,500 MCG/250 ML BAG 2,500 MCG/250 ML BAG IV (03:10)
[2024-08-23] MEDS: PROPOFOL 1,000 MG IVPB 1,000 MG/100 ML VIAL 3.837 MG IV (03:10)
[2024-08-23 03:19] LABS: Basophils % (Auto) 0 % (0-2.5); Eosinophils % (Auto) 0 % (0-10); Immature Granulocytes % (Auto) 5 % (0-0); Immature Granulocytes Auto 0.61 Thou/mm3 (0.00-0.00); Lymphocytes # (Auto) 1.7 Thou/mm3 (1.0-4.8); Lymphocytes % (Auto) 14 % (10-50); Mean Corpuscular HGB Conc 30.7 g/dl (31.0-37.0); Mean Corpuscular Volume 92 fL (80-100); Monocytes # (Auto) 0.5 Thou/mm3 (0.0-0.8); Monocytes % (Auto) 5 % (0-12); Neutrophils # (Auto) 9.1 Thou/mm3 (1.8-7.7); Neutrophils % (Auto) 76 % (37-80); Nucleated Red Blood Cell # 0.11 Thou/mm3 (0.00-0.00); Nucleated Red Blood Cell % 1 /100 WBC (0); Platelet Count 202 Thou/mm3 (140-440); RDW Standard Deviation 56.1 fL (35.1-43.9); Red Blood Count 2.46 Miln/mm3 (4.50-5.90)
[2024-08-23] MEDS: EPINEPHrine INJ 1 MG/ML AMP 0.5 MG SC (03:21)
[2024-08-23 03:22] LABS: Lactate (Lactic Acid) 2.9 mMol/L (0.4-2.0)
[2024-08-23 03:26] LABS: Hematocrit 22.5 % (41.0-53.0); Hemoglobin 6.9 g/dL (13.5-16.0)
--- NOTE | 2024-08-23 03:33 | PD.RESEVENT ---
Documentation for date of: 08/23/24 Event Note Event Note: CODE GUTIERREZ was called for patient at 2:27 AM, patient received 2 rounds of epinephrine after which ROSC was achieved and later he was intubated. Patient's daughter JAISON WONG were contacted and updated regarding patient's having cardiac arrest and being intubated and upgraded to ICU, attempted to contact patient's other daughters but were unsuccessful. Patient's daughter was informed that patient's condition remains critical with guarded prognosis.
[2024-08-23 03:37] LABS: INR 1.1 (0.9-1.3); Partial Thromboplastin Time 24.8 Seconds (22.0-36.0); Prothrombin Time 11.9 Seconds (9.0-12.2)
--- NOTE | 2024-08-23 03:41 | ESCONSULT_ITS ---
HPI Data of Consult Requesting Physician: Sabino Whitfield MD Admitting Provider: Sabino Whitfield MD Attending Provider: Sabino Whitfield MD Primary Care Provider: Darrion Kevin MD Consult Narrative Reason for consult: Cardiac arrest History of present illness: 54 year old male with PMHx of HFpEF, CAD post stent placement, IDDM II, COPD, CVA, bilateral endarterectomy in 2019, PE presently on Eliquis, hypertension, CAROLYN, cirrhosis, CBP on opioids, history of vertebral hemangioma and medical noncompliance admitted to floor for SOB, and altered mental status found to have acute anemia with Hgb of 4.3, patient was started on Bi-pap but refused it, also was started on Octreotide drip, Pantoprazole bid, with consult to GI, received 2 units of PRBC and was started on a 3rd unit, patient was becoming agitated when tele monitor notified nursing staff that patient's HR was in low 30 before a code blue was called for cardiac arrest. ROSC was achieved after 2 rounds of Epi and patient was intubated and moved to ICU for post cardiac arrest care. Patient was given a dose of .5mg of sc epinephreine, along with methylprednisolone for concern of having anaphylactic reaction after he was given Quetiapine and Lorazepam and was noted to have significant facial swelling. Patient was also given 2mg of Bumetanide. cc:: cc: Sabino Whitfield MD Review of Systems Review of Systems ROS Unobtainable: unobtainable due to mental status and due to endotracheal tube Past Medical History Past Medical History NEUROLOGIC: Positive Neurological Disorders, Cerebrovascular Accident, Transient Ischemic Attacks (TIA) and Willis's Palsy; Negative Seizures CARDIAC: Positive Cardiac Disorders, Myocardial Infarction, Coronary Artery Disease, Atherosclerotic Heart Disease, Hypercholesterolemia, Congestive Heart Failure, Deep Vein Thrombosis and Hypertension RESPIRATORY: Positive Asthma and Pulmonary Embolism; Negative Chronic Obstructive Pulmonary Disease (COPD) or Pneumonia GASTROINTESTINAL: Positive Gastrointestinal Disorders and Obesity GENITOURINARY: Positive Genitourinary Disorders and Kidney Stones; Negative Renal Disease MUSCULOSKELETAL: Positive Musculoskeletal Disorders and Degenerative Disk Disease; Negative Bone Cancer, Carpal Tunnel Syndrome or Fractures ENDOCRINE: Positive Endocrine Disorders and Diabetes Mellitus Type 2; Negative Diabetes Mellitus Type 1 HEMATOLOGIC: Negative Blood Disorders or Sickle Cell Disease PSYCHO/SOCIAL: Positive Anxiety OTHER HISTORY: Positive Falls, Blood Transfusions, Blood Transfusion Reaction and Chicken Pox; Negative Autoimmune Disease, Anesthesia Reactions, Organ Transplant, MRSA, VRSA, Vancomycin-Resistant Enterococci, Clostridium Difficile or Cancer Family History FAMILY HISTORY: Positive Family Respiratory Disorders and Family Cardiac Disorders; Negative Family Neurologic Problems Surgical History SURGICAL: Positive Cardiac Surgery, Coronary Stent and Carotid Endarterectomy; Negative Ear Surgery, Abdominal Surgery, Joint Replacement, Amputation, Open Reduction Internal Fixation, Arthroscopy, Neurologic Surgery, Vasectomy or Organ Transplant Social History SMOKING STATUS: Light (< 1 pack/day) SECOND HAND EXPOSURE: No ([id number] x 4 yrs) SUBSTANCE USE: does not use Exam Vital Signs Temp Pulse Resp BP Pulse Ox O2 Del Method O2 Flow Rate 97 F 77 16 110/50 L 100 Nasal Cannula 2 08/23/24 01:43 08/23/24 03:19 08/23/24 01:43 08/23/24 01:43 08/23/24 03:19 08/23/24 00:00 08/23/24 01:43 FiO2 100 08/23/24 03:19 Narrative Exam GEN: Morbidly obese, critically ill, sedated and intubated, Neuro: Deferred due to sedation. HEENT: NCAT, trachea midline, moist mucous membranes, ET tube, PO tube noted, diffuse facial edema significant over eyes bilater. CVS: RRR, distant S1S2 present, no M/R/G. No JVD Respi: Mechanically ventilated, b/l breath sounds heard, no wheezing/crackles. ABD: Soft, no grimace to palpation, bowel sounds present in all 4 quadrants. Skin: warm, dry and intact. Extremities: Pulses 3+, no edema/cyanosis. Results Labs 08/30/24 05:05 08/30/24 05:05 Labs: Short CBC 08/22/24 08/23/24 Range/Units 10:10 02:44 WBC 7.2 12.0 H D (3.8-10.6) Thou/mm3 Hgb 4.3 L* 6.9 L* D (13.5-16.0) g/dL Hct 14.7 L* 22.5 L (41.0-53.0) % Plt Count 149 202 D (140-440) Thou/mm3 BMP 08/22/24 10:10 Sodium 143 Potassium 5.2 H Chloride 106 Carbon Dioxide 29.7 BUN 93 H Creatinine 1.5 H Glucose 159 H Calcium 8.4 Cardiac Enzymes 08/22/24 Range/Units 10:10 Troponin I < 0.020 (0.0-0.045) ng/mL Liver Function 08/22/24 Range/Units 10:10 Total Bilirubin < 0.2 L (0.3-1.2) mg/dL AST 16 (0-34) U/L ALT 19 (10-49) U/L Alkaline Phosphatase 61 (46-116) U/L Albumin 3.1 L (3.5-5.0) gm/dL Urine 08/22/24 Range/Units 11:30 Urine Color Lt-Yellow (Lt Yel-Yel) Urine Clarity Clear (Clear/Hazy) Urine pH 5.5 (5.0-7.0) Ur Specific [place] 1.015 (1.001-1.035) Urine Protein 1+ A (Neg - Trace) Urine Glucose (UA) Negative (Negative) ABG Interpretation ABG results: 08/22/24 08:37 ABG pH 7.36 ABG pCO2 55 H ABG pO2 70 L ABG HCO3 31 H ABG O2 Saturation 94 ABG Base Excess 5 H Quality Measures Quality Measures none Medications Home Medications and Allergies Home Medications ?Medication ?Instructions ?Recorded ?Confirmed ?Type hydrocodone 10 mg-acetaminophen 1 tab PO Q4H PRN pain, mild 10/22/23 08/25/24 History 325 mg tablet pregabalin 150 mg capsule 150 mg PO TID 10/22/2308/25 History morphine 15 mg tablet,extended 15 mg PO Q12H PRN Pain, Severe 01/14/24 08/25/24 History release apixaban 5 mg tablet 5 mg PO BID 06/25/24 5 History ascorbic acid (vitamin C) 500 mg 500 mg PO BID 5 08/25/24 History tablet (Vitamin C) atorvastatin 80 mg tablet 80 mg PO QPM 06/25/24 History vitamin B complex-vitamin C-folic 1 tab PO QDAY 08/25/24 History acid 0.8 mg tablet (Sapphire-[place]) insulin lispro 100 unit/mL See Protocol subcut AC 06/2208/25/24 History subcutaneous pen (Humalog KwikPen (U-100) Insulin) albuterol sulfate 90 mcg/actuation 2 inh inhalation Q4 H PRN shortness 08/07/24 08/25/24 History breath activated powder inhaler of breath or wheezing (ProAir RespiClick) aspirin 81 mg tablet,delayed 81 mg PO QDAY 08/07/24 History release (Ecotrin Low Strength) bisacodyl 10 mg rectal suppository 10 mg VT QDAY PRN c onstipation 08/07/24 08/25/24 History (Dulcolax (bisacodyl)) carvedilol 6.25 mg tablet 6.25 mg PO BID 08/07/24/01/12 History clopidogrel 75 mg tablet (Plavix) 75 mg PO QDAY 08/25/24 History cyclobenzaprine 10 mg tablet 10 mg PO Q12H PRN muscle spasm 08/07/24 08/25/24 History ergocalciferol (vitamin D2) 1,250 50,000 unit PO QWEEK 08/07/24 08/25/24 History mcg (50,000 unit) capsule ipratropium 0.5 mg-albuterol 3 mg 3 ml inhalation BID PRN shortness 08/07/24 08/25/24 History (2.5 mg base)/3 mL nebulization of breath soln lorazepam 2 mg tablet 2 mg PO HS 08/07/24 08/25/24 History Held on 08/29/24. Instructions: f/u pcp magnesium hydroxide 400 mg/5 mL 30 ml PO Q72H PRN cons tipation 08/07/24 08/25/24 History oral suspension (Milk of Magnesia) meclizine 25 mg tablet 25 mg PO DAILY PRN nausea an d 08/07/24 08/25/24 History vomiting oxybutynin chloride 5 mg tablet 5 mg PO BID 08/07/24 0 08/25/24 History sitagliptin phosphate 100 mg 100 mg PO DAILY 08/07/24 08/25/24 History tablet (Januvia) docusate sodium 100 mg capsule 100 mg PO QDAY 08/25/24 08/25/24 History loperamide 2 mg capsule 2 mg PO Q6H PRN loose stool 08/25/24 08/25/24 History (Anti-Diarrheal (loperamide)) metolazone 5 mg tablet 5 mg PO DAILY 08/25/2408/25 History Allergies Allergy/AdvReac Type Severity Reaction Status Date / Time ketorolac Allergy Severe TONGUE Verified 07/26/23 22:55 SWELLS UP escitalopram Allergy Intermediate Rash Verified 06/28/24 10:52 Visit Medications Acetaminophen (Acetaminophen 325 Mg Tablet) 650 mg PO Q6H PRN PRN Reason: Fever >101.5 Stop: 09/21/24 14:28 Acetaminophen (Acetaminophen 325 Mg Tablet) 650 mg PO Q6H PRN PRN Reason: PAIN SCALE 1-3 (mild Stop: 09/21/24 14:28 Hydrocodone Bitart/Acetaminophen (Hydrocodone/Apap 10325 Tab) 1 tab PO Q4HR PRN PRN Reason: PAIN RATED 7-10 Stop: 08/27/24 16:46 Bumetanide (Bumetanide Inj 0.25 Mg/Ml Vial 4 Ml) 2 mg IVP X1 ONE Stop: 08/23/24 03:30 Cyclobenzaprine HCl (Cyclobenzaprine 5 Mg Tablet) 10 mg PO BID PRN PRN Reason: MUSCLE SPASMS Stop: 09/21/24 16:49 Dextrose (Dextrose 50%-Water Inj 50 Ml Syringe) 25 ml IV Q15MIN PRN PRN Reason: BG 50-70 responsive npo pt Stop: 09/21/24 16:12 Dextrose (Dextrose 50%-Water Inj 50 Ml Syringe) 50 ml IV Q15MIN PRN PRN Reason: BG <50 OR BG <70 & pt unresponsive Stop: 09/21/24 16:12 Doxycycline Hyclate (Doxycycline 100 Mg Tablet) 100 mg PO BID RINA Stop: 08/29/24 20:59 Last Admin: 08/22/24 22:23 Dose: 100 mg Epinephrine HCl (Epinephrine Inj 1 Mg/Ml Amp) 0.5 mg SC X1 ONE Stop: 08/23/24 03:38 Glucagon (Glucagon Inj 1 Mg Vial) 1 mg IM Q15MIN PRN PRN Reason: BG <70, and no IV access Octreotide Acetate 1,000 mcg/ (Sodium Chloride) 102 mls @ 5.1 mls/hr IV .Q20H RINA; Protocol Stop: 08/27/24 16:01 Last Admin: 08/23/24 00:17 Dose: 50 mcg/hr, 5.1 mls/hr Ceftriaxone Sodium 1,000 mg/ (Sodium Chloride) 50 mls @ 100 mls/hr IV QDAY RINA Stop: 08/30/24 08:59 Propofol (Diprivan Ivpb) 1,000 mg in 100 mls @ 3.837 mls/hr IV .Q24H PRN; Protocol PRN Reason: PER PROTOCOL Stop: 09/22/24 03:03 Last Admin: 08/23/24 03:10 Dose: 5 mcg/kg/min, 3.837 mls/hr Fentanyl Citrate (Sublimaze Inj 2,500 Mcg/250 Ml Bag) 2,500 mcg in 250 mls @ 2.5 mls/hr IV .Q24H PRN; Protocol PRN Reason: PER PROTOCOL Stop: 08/28/24 03:03 Last Admin: 08/23/24 03:10 Dose: 25 mcg/hr, 2.5 mls/hr Norepinephrine Bitartrate (Levophed In Ns 16mg/250ml) 16 mg in 250 mls @ 5.996 mls/hr IV .Q24H PRN; Protocol PRN Reason: PER protocol Stop: 09/22/24 03:06 Propofol (Diprivan Ivpb) 1,000 mg in 100 mls @ 3.837 mls/hr IV .Q24H PRN; Protocol PRN Reason: PER PROTOCOL Stop: 09/22/24 03:04 Fentanyl Citrate (Sublimaze Inj 2,500 Mcg/250 Ml Bag) 2,500 mcg in 250 mls @ 2.5 mls/hr IV .Q24H PRN; Protocol PRN Reason: PER PROTOCOL Stop: 08/28/24 03:05 Insulin Human Lispro (Insulin Lispro (Admelog) 1 Unit/0.01 Ml Unit) 0 unit SC AC [facility]; Protocol Stop: 09/21/24 16:59 Last Admin: 08/23/24 03:25 Dose: Not Given Ondansetron HCl (Ondansetron Inj 2 Mg/Ml Inj 2 Ml) 4 mg IV Q6H PRN; Protocol PRN Reason: NAUSEA OR VOMITING Stop: 09/21/24 14:28 Pantoprazole Sodium (Pantoprazole Inj 40 Mg Vial) 40 mg IVP Q12HR [facility] Stop: 09/21/24 20:59 Last Admin: 08/22/24 21:30 Dose: 40 mg Pregabalin (Pregabalin 75 Mg Capsule) 150 mg PO TID [facility] Stop: 09/21/24 21:59 Last Admin: 08/22/24 22:23 Dose: 150 mg Discontinued Medications Albuterol/Ipratropium (Albuterol/Ipratropium (Duoneb) Rt Radha 3 Ml Nebu) 3 ml INH X1 ONE Stop: 08/22/24 08:08 Last Admin: 08/22/24 08:30 Dose: 3 ml Bumetanide (Bumetanide Inj 0.25 Mg/Ml Vial 4 Ml) 2 mg IVP X1 ONE Stop: 08/22/24 16:05 Last Admin: 08/23/24 03:35 Dose: Not Given Bumetanide (Bumetanide Inj 0.25 Mg/Ml Vial 4 Ml) 1 mg IVP X1 ONE Stop: 08/23/24 03:15 Last Admin: 08/23/24 03:25 Dose: Not Given Ceftriaxone Sodium 1,000 mg/ (Sodium Chloride) 50 mls @ 100 mls/hr IV X1 ONE Stop: 08/22/24 14:15 Last Admin: 08/22/24 21:00 Dose: Not Given Vancomycin HCl 2,000 mg/ (Sodium Chloride) 500 mls @ 150 mls/hr IV X1 ONE Stop: 08/22/24 17:05 Lactated Ringer's (Lactated Ringers) 1,000 mls @ 75 mls/hr IV .[id number] [facility] Stop: 08/23/24 05:29 Last Admin: 08/23/24 03:24 Dose: Not Given Vancomycin HCl 1,500 mg/ (Sodium Chloride) 500 mls @ 200 mls/hr IV X1 ONE Stop: 08/22/24 19:59 Last Admin: 08/22/24 22:15 Dose: Not Given Ceftriaxone Sodium 1,000 mg/ (Sodium Chloride) 50 mls @ 100 mls/hr IV X1 ONE Stop: 08/22/24 23:06 Last Infusion: 08/22/24 23:22 Dose: Infused Lorazepam (Lorazepam 2 Mg/Ml Vial) 1 mg IVP X1 ONE Stop: 08/22/24 23:36 Last Admin: 08/22/24 23:51 Dose: 1 mg Lorazepam (Lorazepam 2 Mg/Ml Vial) 1 mg IVP X1 ONE Stop: 08/23/24 01:21 Last Admin: 08/23/24 01:33 Dose: 1 mg Methylprednisolone Sodium Succinate (Methylprednisolone Sod Succ 62.5 Mg/Ml 2ml Vial) 125 mg IVP X1 ONE Stop: 08/22/24 08:08 Last Admin: 08/22/24 08:47 Dose: 125 mg Methylprednisolone Sodium Succinate (Methylprednisolone Sod Succ 40 Mg Vial) 60 mg IVP X1 ONE Stop: 08/23/24 03:06 Methylprednisolone Sodium Succinate (Methylprednisolone Sod Succ 62.5 Mg/Ml 2ml Vial) 125 mg IVP X1 ONE Stop: 08/23/24 03:15 Last Admin: 08/23/24 03:10 Dose: 125 mg Pharmacy Consult (Vancomycin Pharmacy To Dose 1 Each Each) 1 each IV QDAY RINA Stop: 09/22/24 08:59 Quetiapine Fumarate (Quetiapine Fumarate 25 Mg Tablet) 25 mg PO X1 ONE Stop: 08/22/24 21:37 Last Admin: 08/22/24 22:23 Dose: 25 mg Sodium Chloride (Sodium Chloride Rt 10% 15 Ml Nebu) 5 ml INH X1 ONE Stop: 08/22/24 16:30 Last Admin: 08/23/24 03:25 Dose: Not Given Assessment & Plan Plan 54 year old male with PMHx of HFpEF, CAD post stent placement, IDDM II, COPD, CVA, bilateral CEA in 2019, PE on Eliquis, hypertension, CAROLYN, cirrhosis, CBP on opioids, history of vertebral hemangioma and medical noncompliance admitted to floor for SOB, and altered mental status found to have acute anemia with Hgb of 4.3, patient was started on Bi-pap but refused it, also was started on Octreotide drip, Pantoprazole bid, Eliquis was held with consult to GI, received 2 units of PRBC and was started on a 3rd unit, patient was becoming agitated when tele monitor notified nursing staff that patient's HR was in low 30 before a code blue was called for cardiac arrest. ROSC was achieved after 2 rounds of Epi and patient was intubated and moved to ICU for post cardiac arrest care. Patient was given a dose of .5mg of sc epinephreine, along with methylprednisolone for concern of having anaphylactic reaction after he was given Quetiapine and Lorazepam and was noted to have significant facial swelling. Patient was also given 2mg of Bumetanide. NEURO Deferred due to sedation #History of CVA ?Plavix and statin held due to sedation Cardiovascular #ROSC S/P Cardiac Arrest Code blue called after heart rate was noted in low 30s. ROSC was obtained after 8 minutes of chest compressions and 2 round of epinephrine. Troponin noted to be negative. F/U EKG. #Acute decompensated CHF exacerbation #HFpEF (EF 55 to 60%, 04/2024) ? Patient given one dose of Bumix 2mg ? Strict I's and O's, fluid restriction #CAD status post stent placement. Hold antiplatelet in setting of acute blood loss. ` Pulmonary #Acute on chronic hypoxic hypercapnic respiratory failure Patient was given Quetiapine and 2 rounds of Lorazepam for agitation a few hours before code blue. Patient intubated for and mechanically ventilated. #History of PE Noted to have history of PE dating back to 2019 and per chart review has had multiple and thus, is likely on lifelong anticoagulation Hold Eliquis 2/2 acute anemia #History of COPD #History of CAROLYN/OHS Non compliant with Bi-pap GI #Acute blood loss anemia #History of cirrhosis, stable Patient started on Octreotide drip and twice daily Pantoprazole. Patient received 3 units of PRBC Maintain Hgb>8 F/U post transfusion H/H GI consulted recs appreciated. Renal #ZENY #Uremia #Hyperkalemia Likely pre-renal in setting of acute anemia Endocrine #Insulin-dependent diabetes mellitus ? SSI every 6 hours Heme #Chronic normocytic anemia, stable No active signs of bleeding ?Continue to monitor Infectious disease No acute/active disease MSK #No active problems Lines: PIV GI prophylaxis: Pantoprazole IV Wright: Placed 08/07 CODE STATUS: full code Patient's plan of care discussed with attending Dr. Cuco Gill, PGY-3 Attending Provider Attestation/Addendum I attest that I was physically present for the evaluation, physical examination, lab and imaging review of the patient with the residents. I discussed the case with the residents and agree with the findings and plans of care as documented above. Yudith Norwood MD
[2024-08-23 03:48] LABS: B-Type Natriuretic Peptide 530 pg/mL (0-100)
[2024-08-23 03:53] LABS: Alanine Aminotransferase 45 U/L (10-49); Albumin, Serum 4.1 gm/dL (3.5-5.0); Albumin/Globulin Ratio 1.6 (1.2-2.2); Alkaline Phosphatase 73 U/L (46-116); Anion Gap 13 (7-16); Aspartate Amino Transferase 59 U/L (0-34); BUN/Creatinine Ratio 66 Ratio (12-20); Bilirubin,Total 0.2 mg/dL (0.3-1.2); Carbon Dioxide 25.3 mMol/L (20.0-31.0); Chloride 107 mMol/L (98-107); Creatinine (Component) 1.6 mg/dL (0.6-1.3); Estimated Creatinine Clearance 68.2 mL/min (>60); Globulin 2.6 gm/dL (2.3-3.5); Glucose 247 mg/dL (74-106); Magnesium 2.4 mg/dL (1.6-2.6); Osmolality,Calculated 329 (275-295); Phosphorous 7.6 mg/dL (2.4-5.1); Potassium 5.1 mMol/L (3.4-5.1); Sodium 145 mMol/L (136-145); Total Protein 6.7 gm/dL (5.7-8.2); Troponin I < 0.020 ng/mL (0.0-0.045); eGFR 50 See Note
[2024-08-23 03:54] LABS: Blood Urea Nitrogen 105 mg/dL (9-23)
[2024-08-23 03:57] LABS: Allen Test Performed/OK; Base Excess 1 (-3-3); HCO3 28 mEq/L (20-26); Inspired Oxygen, FIO2 100 %; O2 Saturation 101 % (91-98); PCO2 70 mmHg (32.0-48.0); PO2 252 mmHg (83-108); Puncture Site Right Radial; pH, Arterial 7.22 (7.35-7.45)
--- NOTE | 2024-08-23 05:44 | PD.RESPROC ---
Procedures Procedure Date / Time 08/23/24 0240 Intubation Indication(s): acute Resp Failure and inability to protect airway Informed consent obtained: procedure done urgently Time out done, and the following verified: correct patient, side and site, procedure, patient position and implants and/or equipment Sedative: none Laryngoscope: fiber optic video scope ET tube size: 7.5 ET tube uncuffed: No Tube secured depth (cm): 26 Tube secured location: teeth Tube placement confirmation: visualized tube passing through cords, equal breath sounds bilaterally, no breath sounds over epigastrium and confirmation by capnometry Patient tolerated procedure: well Intubation complications: none Additional comments: Intubation post cardiac arrest.
--- NOTE | 2024-08-23 06:05 | PD.RESPROC ---
Procedures Procedure Date / Time 08/23/24 0605 Central Line Placement Right IJ: Indication(s): poor, or inadequate peripheral venous access Informed consent obtained: obtained from surrogate decision maker and procedure done urgently Time out done, and the following verified: correct patient, side and site, procedure, patient position and implants and/or equipment Patient placed on monitor/pulse ox: Yes Hand Hygiene: alcohol-based hand rub Max Sterile Barrier Techniques used: cap, mask, sterile gown, sterile gloves, sterile full body drape and other Central line prep: Povidone-Iodine 1% and Chlorhexidine scrub Local anesthesia used: lidocaine 1% Amount of anesthesia used (mL): 5 Ultrasound used for placement: Yes Sterile Technique if Ultrasound used, including sterile gel: yes Central line lumen inserted: triple Patient tolerated procedure: well EBL(ml): 5 Procedure comment: Procedure failed, unable to pass central line through guide wire. Wire was removed and gauze was placed over insertion point.
[2024-08-23 06:07] LABS: Reflex Lactate? Y
--- NOTE | 2024-08-23 06:28 | EKG_ITS ---
[facility] Test Date: 2024-08-23 Pat Name: JILL HIDALGO [facility] Container Maker: [place] : 1970 Requested By: Sirisha Gill Order Number: [id number] Reading MD: Sirisha Gill Measurements Intervals [place] Rate: 67 P: 9 W[place]: 181 QRS: 1 QRSD: 110 T: 79 QT: 419 QTc: 445 Interpretive Statements SINUS RHYTHM Compared to ECG 08/22/2024 09:04:25 No significant changes /store/[id number]
[2024-08-23] MEDS: INSULIN LISPRO (AdmeLOG) 1 UNIT/0.01 ML UNIT SC ×3 (06:49→18:00)
[2024-08-23] MEDS: PROPOFOL 1,000 MG IVPB 1,000 MG/100 ML VIAL 23.024 MG IV (06:51)
[2024-08-23 08:03] LABS: Lactic Acid, 3 HR 0.8 mMol/L (0.4-2.0)
[2024-08-23] MEDS: PANTOPRAZOLE INJ 40 MG VIAL IVP ×2 (08:15→21:58)
[2024-08-23] MEDS: cefTRIAXone 1,000 MG in SODIUM CHLORIDE 0.9% (Popper) 50 ML 100 MG IV (08:15)
[2024-08-23 08:37] LABS: Basophils % (Auto) 0 % (0-2.5); Eosinophils % (Auto) 0 % (0-10); Immature Granulocytes % (Auto) 2 % (0-0); Immature Granulocytes Auto 0.19 Thou/mm3 (0.00-0.00); Lymphocytes # (Auto) 0.3 Thou/mm3 (1.0-4.8); Lymphocytes % (Auto) 3 % (10-50); Mean Corpuscular HGB Conc 32.6 g/dl (31.0-37.0); Mean Corpuscular Hemoglobin 29.2 pg (25.0-35.0); Mean Corpuscular Volume 90 fL (80-100); Monocytes # (Auto) 0.6 Thou/mm3 (0.0-0.8); Monocytes % (Auto) 6 % (0-12); Neutrophils # (Auto) 10.5 Thou/mm3 (1.8-7.7); Neutrophils % (Auto) 90 % (37-80); Nucleated Red Blood Cell % 0 /100 WBC (0); Platelet Count 144 Thou/mm3 (140-440); RDW Standard Deviation 53.4 fL (35.1-43.9); Red Blood Count 2.02 Miln/mm3 (4.50-5.90); White Blood Count 11.7 Thou/mm3 (3.8-10.6)
[2024-08-23 09:01] LABS: Alanine Aminotransferase 40 U/L (10-49); Albumin, Serum 3.5 gm/dL (3.5-5.0); Albumin/Globulin Ratio 1.5 (1.2-2.2); Alkaline Phosphatase 56 U/L (46-116); Anion Gap 12 (7-16); Aspartate Amino Transferase 53 U/L (0-34); BUN/Creatinine Ratio 72 Ratio (12-20); Bilirubin,Total < 0.2 mg/dL (0.3-1.2); Calcium 8.7 mg/dL (8.3-10.6); Calcium (Corrected) 9.1 mg/dL (8.5-10.1); Carbon Dioxide 26.3 mMol/L (20.0-31.0); Chloride 108 mMol/L (98-107); Creatinine (Component) 1.5 mg/dL (0.6-1.3); Estimated Creatinine Clearance 78.6 mL/min (>60); Globulin 2.3 gm/dL (2.3-3.5); Glucose 242 mg/dL (74-106); Magnesium 2.2 mg/dL (1.6-2.6); Osmolality,Calculated 332 (275-295); Phosphorous 6.9 mg/dL (2.4-5.1); Potassium 5.3 mMol/L (3.4-5.1); Sodium 146 mMol/L (136-145); Total Protein 5.8 gm/dL (5.7-8.2); eGFR 54 See Note
[2024-08-23] MEDS: DOXYCYCLINE INJ 100 MG in SODIUM CHLORIDE 0.9% (POP) 100 ML IV ×2 (09:01→21:58)
[2024-08-23 09:18] LABS: Blood Urea Nitrogen 108 mg/dL (9-23)
[2024-08-23 09:29] LABS: Hematocrit 18.1 % (41.0-53.0)
[2024-08-23 09:45] LABS: Misc Send Out* See Sep Rpt
[2024-08-23] MEDS: INSULIN GLARGINE (Lantus) 5 UNIT/0.05 ML (PER 5 UNITS) 15 UNIT SC (10:30)
[2024-08-23 10:49] LABS: Hemoglobin 5.9 g/dL (13.5-16.0)
--- NOTE | 2024-08-23 11:50 | PC.SS ---
AUTOMATIC FANCY MACHINE OPERATOR conducted bedside contact with the patient conduct initial assessment and to discuss discharge planning.? At bedside with patient was daughter, Gregoria Sutton .?? Patient?s daughter provided information for assessment and discharge planning.? Patient is a resident of [facility].? Patient utilizes a wheelchair for mobility.? Patient utilizes oxygen at facility (2L).? Patient also utilizes a C-PAP at night.? Patient requires assistance with completion of ADL?s.? Patient?s medical surrogate decision maker is daughter, Gregoria Sutton.? Patient?s PCP is Dr. Kevin.? Patient possess history of high blood pressure and diabetes.? Discharge plan is for the patient to return [facility].? Patient will require ambulance transport upon discharge.? No further intervention required at this time, adoption social worker will be available to address any further concerns.? Next of Kin: Gregoria Sutton D/C Plan: SNF
--- NOTE | 2024-08-23 11:53 | PC.SS ---
Update: Patient is currently intubated. Patient not sedated. Patient is not receiving pressor support. Patient is NPO. Skin issues present stage II and skin tear to elbow. Foly catheter in place. Patient is afrebile.
--- NOTE | 2024-08-23 12:36 | PD.IMCONS ---
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 and also gives a history before getting intubated bright red bleeding per rectum for the last couple of months off and on No history at the moment is available cc:: cc: Dianna Askew DO Review of Systems Review of Systems ROS Unobtainable: unobtainable due to medical condition Past Medical History Surgical History OTHER SURGICAL HX: As in the history of present illness Meds Home Medications and Allergies Home Medications ?Medication ?Instructions ?Recorded ?Confirmed ?Type hydrocodone 10 mg-acetaminophen 1 tab PO Q4H PRN pain, mild 10/22/23 08/07/24 History 325 mg tablet pregabalin 150 mg capsule 150 mg PO TID 10/22/23 08/07/24 History morphine 15 mg tablet,extended 15 mg PO QDAY PRN Pain, Severe 01/14/24 07/31/24 History release apixaban 5 mg tablet 5 mg PO BID 06/25/24 08/07/24 History ascorbic acid (vitamin C) 500 mg 500 mg PO BID 06/25/24 08/07/24 History tablet (Vitamin C) atorvastatin 80 mg tablet 80 mg PO QPM 06/25/24 08/07/24 History budesonide-formoterol HFA 160 2 puff inhalation BID 06/25/24 07/31/24 History mcg-4.5 mcg/actuation aerosol inhaler vitamin B complex-vitamin C-folic 1 tab PO QDAY 06/25/24 08/07/24 History acid 0.8 mg tablet (Sapphire-Holly) insulin lispro 100 unit/mL See Protocol subcut AC 07/16/24 07/31/24 History subcutaneous pen (Humalog KwikPen (U-100) Insulin) loperamide 2 mg tablet 2 mg PO Q6H PRN Diarrhea 07/16/24 08/07/24 History albuterol sulfate 90 mcg/actuation 2 inh inhalation Q4H PRN shortness 08/07/24 08/07/24 History breath activated powder inhaler of breath or wheezing (ProAir RespiClick) amlodipine 10 mg tablet 10 mg PO DAILY 08/07/24 08/07/24 History aspirin 81 mg tablet,delayed 81 mg PO QDAY 08/07/24 08/07/24 History release (Ecotrin Low Strength) bisacodyl 10 mg rectal suppository 10 mg AK QDAY PRN constipation 08/07/24 08/07/24 History (Dulcolax (bisacodyl)) carvedilol 6.25 mg tablet 6.25 mg PO BID 08/07/24 08/07/24 History clopidogrel 75 mg tablet (Plavix) 75 mg PO QDAY 08/07/24 08/07/24 History cyclobenzaprine 10 mg tablet 10 mg PO Q12H PRN muscle spasm 08/07/24 08/07/24 History ergocalciferol (vitamin D2) 1,250 50,000 unit PO QWEEK 08/07/24 08/07/24 History mcg (50,000 unit) capsule ipratropium 0.5 mg-albuterol 3 mg 3 ml inhalation BID PRN shortness 08/07/24 08/07/24 History (2.5 mg base)/3 mL nebulization of breath soln lorazepam 2 mg tablet 2 mg PO HS 08/07/24 08/07/24 History losartan 50 mg tablet 100 mg PO QDAY 08/07/24 08/07/24 History magnesium hydroxide 400 mg/5 mL 30 ml PO Q72H PRN constipation 08/07/24 08/07/24 History oral suspension (Milk of Magnesia) meclizine 25 mg tablet 25 mg PO DAILY PRN nausea and 08/07/24 08/07/24 History vomiting oxybutynin chloride 5 mg tablet 5 mg PO BID 08/07/24 08/07/24 History sitagliptin phosphate 100 mg 100 mg PO DAILY 08/07/24 08/07/24 History tablet (Januvia) Allergies Allergy/AdvReac Type Severity Reaction Status Date / Time ketorolac Allergy Severe TONGUE Verified 07/26/23 22:55 SWELLS UP escitalopram Allergy Intermediate Rash Verified 06/28/24 10:52 Exam Vital Signs Temp Pulse Resp BP Pulse Ox O2 Del Method O2 Flow Rate 96.9 F 75 18 167/91 H 99 Nasal Cannula 2 08/23/24 12:32 08/23/24 12:32 08/23/24 12:32 08/23/24 12:32 08/23/24 12:30 08/23/24 00:00 08/23/24 01:43 FiO2 40 08/23/24 12:00 Constitutional Comments: Mechanically ventilated endotracheal intubation morbidly obese Results Labs 08/23/24 15:15 08/23/24 07:47 Labs: Short CBC 08/23/24 08/23/24 Range/Units 02:44 07:47 WBC 12.0 H D 11.7 H (3.8-10.6) Thou/mm3 Hgb 6.9 L* D 5.9 L* (13.5-16.0) g/dL Hct 22.5 L 18.1 L* (41.0-53.0) % Plt Count 202 D 144 D (140-440) Thou/mm3 BMP 08/23/24 08/23/24 02:44 07:47 Sodium 145 146 H Potassium 5.1 5.3 H Chloride 107 108 H Carbon Dioxide 25.3 26.3 BUN 105 H* 108 H* Creatinine 1.6 H 1.5 H Glucose 247 H D 242 H Calcium 9.0 8.7 Cardiac Enzymes 08/23/24 Range/Units 02:44 Troponin I < 0.020 (0.0-0.045) ng/mL Liver Function 08/23/24 08/23/24 Range/Units 02:44 07:47 Total Bilirubin 0.2 L < 0.2 L (0.3-1.2) mg/dL AST 59 H 53 H (0-34) U/L ALT 45 40 (10-49) U/L Alkaline Phosphatase 73 56 D (46-116) U/L Albumin 4.1 D 3.5 D (3.5-5.0) gm/dL ABG Interpretation ABG results: 08/22/24 08/23/24 08:37 03:41 ABG pH 7.36 7.22 L D ABG pCO2 55 H 70 H D ABG pO2 70 L 252 H D ABG HCO3 31 H 28 H ABG O2 Saturation 94 101 H ABG Base Excess 5 H 1 Assessment and Plan Additional Assessment & Plan Additional Plan: # Acute anemia blood loss Agree with the blood transfusion Initial test would be fiberoptic esophagogastroduodenoscopy with possible therapeutic intervention under intravenous moderate sedation if that is negative with a history of hematochezia we will consider doing a fiberoptic colonoscopy after GoLytely prep Other medical problems include # Acute respiratory failure requiring endotracheal intubation # CVA requiring bilateral carotid enterectomy # Vertebral hemangioma requiring radiation therapy # coronary artery disease status post PTCA # pulmonary embolism on Eliquis # Congestive heart failure # primary pulmonary hypertension # Diabetes mellitus type 2 # obesity syndrome Thank you very much for the opportunity to participate in the care of this patient
--- NOTE | 2024-08-23 13:47 | ESPR_ITS ---
Documentation for date of: 08/23/24 Subjective Subjective Interval history: Patient seen and examined at bedside. He is a 54-year-old male with a past medical history of diabetes, HFpEF, CAD, hypertension who is a CO2 retainer secondary to CAROLYN and OHS, who presented to the ED on 08/22/2024 with shortness of breath and dizziness. Patient was found to have acute blood loss anemia with admission hemoglobin of 4.3. 3 units of PRBC ordered, patient received 2 1 had a rapid response overnight as the patient initially had bradycardia and then was pulseless. ROSC achieved after 8 to 10 minutes, 2 rounds of epi given and he was upgraded to the ICU. Today, sedated with propofol and fentanyl and mechanically ventilated, PEEP 5 and FiO2 40%, RR 18. On examination, patient had some active bleeding in the right lower quadrant of the abdomen, said to have previously been peripheral IV access. Hemostasis was achieved, repeat H&H 5.9, will order more PRBCs and continue to transfuse. GI Dr. Wakefield consulted, will wean the patient off of sedation, leave intubated and plan for EGD to be done later today. Otherwise, we will continue antibiotics for treatment of pneumonia and wound care for pressure ulcer. Blood glucose today-247, will start 15 units of Lantus and continue blood glucose check every 6 hours with goal of 140-180. Exam Vital Signs Temp Pulse Resp BP Pulse Ox O2 Del Method O2 Flow Rate 96.9 F 75 18 164/73 H 99 Nasal Cannula 2 08/23/24 12:32 08/23/24 13:15 08/23/24 12:32 08/23/24 13:15 08/23/24 13:15 08/23/24 00:00 08/23/24 01:43 FiO2 40 08/23/24 12:00 Narrative Exam GENERAL: Weaning of sedation with propofol and fentanyl, mechanically ventilated. NEURO: GCS-3, sedated HEENT: Dry mucosa. Eyes closed CARDIO: No chest pain on palpation. Heart RRR, no obvious murmurs PULM: No noted coughing/dyspnea. Minimal crackles in the right upper lobe and bilateral bases, no wheezing GI: Abdomen soft, distended per body habitus. Active bleeding from previous IV access in the right lower quadrant of abdomen, hemostasis achieved. BSx4 URO/CHEMICAL LIBRARIAN:: No further abnormalities noted. Wright catheter in situ SKIN/MSK/EXT: Pressure ulcer in the sacral region, stage III. 4 x 5 cm lesion in the medial epicondyle of the left leg, soft, immobile Objective Labs 08/30/24 05:05 08/30/24 05:05 Labs: Laboratory Results - last 24 hr 08/22/24 08/22/24 08/23/24 09:55 14:28 02:44 WBC 12.0 H D RBC 2.46 L Hgb 6.9 L* D Hct 22.5 L MCV 92 MCH 28.0 MCHC 30.7 L RDW Std Deviation 56.1 H Plt Count 202 D Neut % (Auto) 76 Lymph % (Auto) 14 Branch % (Auto) 5 Eos % (Auto) 0 Baso % (Auto) 0 Neut # (Auto) 9.1 H Lymph # (Auto) 1.7 Branch # (Auto) 0.5 Eos # (Auto) 0.0 Baso # (Auto) 0.0 Immature Gran # (Auto) 0.61 H Absolute Nucleated RBC 0.11 H Immature Gran % 5 H Nucleated RBC % 1 H PT 11.9 INR 1.1 APTT 24.8 Puncture Site ABG pH ABG pCO2 ABG pO2 ABG HCO3 ABG O2 Saturation ABG Base Excess FiO2 Sodium 145 Potassium 5.1 Chloride 107 Carbon Dioxide 25.3 Anion Gap 13 BUN 105 H* Creatinine 1.6 H Estim Creat Clear Calc 68.2 eGFR 50 L BUN/Creatinine Ratio 66 H Glucose [address] Glu mg/dL Hemoglobin A1c Calculated Osmolality 329 H Lactic Acid 2.9 H Calcium 9.0 Corrected Calcium 9.0 Phosphorus 7.6 H Magnesium 2.4 Total Bilirubin 0.2 L AST 59 H ALT 45 Alkaline Phosphatase 73 Troponin I < 0.020 B-Natriuretic Peptide 530 H* Total Protein 6.7 Albumin 4.1 D Globulin 2.6 Albumin/Globulin Ratio 1.6 RSV Rapid Negative Blood Type AB Positive Antibody Screen NEGATIVE Crossmatch See Detail Blood Bank Wristband ID Yes 08/23/24 08/23/24 03:41 07:47 WBC 11.7 H RBC 2.02 L Hgb 5.9 L* Hct 18.1 L* MCV 90 MCH 29.2 MCHC 32.6 RDW Std Deviation 53.4 H Plt Count 144 D Neut % (Auto) 90 H Lymph % (Auto) 3 L Branch % (Auto) 6 Eos % (Auto) 0 Baso % (Auto) 0 Neut # (Auto) 10.5 H Lymph # (Auto) 0.3 L Branch # (Auto) 0.6 Eos # (Auto) 0.0 Baso # (Auto) 0.0 Immature Gran # (Auto) 0.19 H Absolute Nucleated RBC 0.00 Immature Gran % 2 H Nucleated RBC % 0 PT INR APTT Puncture Site Right Radial ABG pH 7.22 L D ABG pCO2 70 H D ABG pO2 252 H D ABG HCO3 28 H ABG O2 Saturation 101 H ABG Base Excess 1 FiO2 100 Sodium 146 H Potassium 5.3 H Chloride 108 H Carbon Dioxide 26.3 Anion Gap 12 BUN 108 H* Creatinine 1.5 H Estim Creat Clear Calc 78.6 eGFR 54 L BUN/Creatinine Ratio 72 H Glucose [address] Glu mg/dL Cancelled Hemoglobin A1c Cancelled Calculated Osmolality 332 H Lactic Acid 0.8 Calcium 8.7 Corrected Calcium 9.1 Phosphorus 6.9 H Magnesium 2.2 Total Bilirubin < 0.2 L AST 53 H ALT 40 Alkaline Phosphatase 56 D Troponin I B-Natriuretic Peptide Total Protein 5.8 Albumin 3.5 D Globulin 2.3 Albumin/Globulin Ratio 1.5 RSV Rapid Blood Type Antibody Screen Crossmatch Blood Bank Wristband ID ABG Interpretation ABG results: 08/22/24 08/23/24 08:37 03:41 ABG pH 7.36 7.22 L D ABG pCO2 55 H 70 H D ABG pO2 70 L 252 H D ABG HCO3 31 H 28 H ABG O2 Saturation 94 101 H ABG Base Excess 5 H 1 Quality Measures Quality Measures none Assessment & Plan Assessment Current Active Medications: Generic Name Dose Route Start Last Admin Trade Name Freq PRN Reason Stop Dose Admin Acetaminophen 650 mg 08/22/24 14:29 Acetaminophen 325 Mg Tablet PO 09/21/24 14:28 Q6H PRN Fever >101.5 Acetaminophen 650 mg 08/22/24 14:29 Acetaminophen 325 Mg Tablet PO 09/21/24 14:28 Q6H PRN PAIN SCALE 1-3 (mild Hydrocodone Bitart/Acetaminophen 1 tab 08/22/24 16:47 Hydrocodone/Apap 10/325 Tab PO 08/27/24 16:46 Q4HR PRN PAIN RATED 7-10 Cadexomer Iodine 0 gm 08/23/24 12:45 Cadexomer Iodine Gel 40 Gm Tube TOP 08/30/24 12:44 DAILY RINA Cyclobenzaprine HCl 10 mg 08/22/24 16:50 Cyclobenzaprine 5 Mg Tablet PO 09/21/24 16:49 BID PRN MUSCLE SPASMS Dextrose 25 ml 08/22/24 16:13 Dextrose 50%-Water Inj 50 Ml Syringe IV 09/21/24 16:12 Q15MIN PRN BG 50-70 responsive npo pt Dextrose 50 ml 08/22/24 16:13 Dextrose 50%-Water Inj 50 Ml Syringe IV 09/21/24 16:12 Q15MIN PRN BG <50 OR BG <70 & pt unresponsive Glucagon 1 mg 08/22/24 16:13 Glucagon Inj 1 Mg Vial IM Q15MIN PRN BG <70, and no IV access Octreotide Acetate 1,000 mcg/ 102 mls @ 5.1 mls/hr 08/22/24 16:01 08/23/24 00:17 Sodium Chloride IV 08/27/24 16:01 50 mcg/hr .Q20H RINA 5.1 mls/hr Administration Protocol 50 MCG/HR Ceftriaxone Sodium 1,000 mg/ 50 mls @ 100 mls/hr 08/23/24 09:00 08/23/24 08:15 Sodium Chloride IV 08/30/24 08:59 100 mls/hr QDAY RINA Administration Propofol 1,000 mg in 100 mls @ 3.837 mls/hr 08/23/24 03:04 08/23/24 11:00 Diprivan Ivpb IV 09/22/24 03:03 0 mcg/kg/min .Q24H PRN 0 mls/hr PER PROTOCOL Titration Protocol 5 MCG/KG/MIN Fentanyl Citrate 2,500 mcg in 250 mls @ 2.5 mls/hr 08/23/24 03:04 08/23/24 10:21 Sublimaze Inj 2,500 Mcg/250 Ml Bag IV 08/28/24 03:03 0 mcg/hr .Q24H PRN 0 mls/hr PER PROTOCOL Titration Protocol 25 MCG/HR Norepinephrine Bitartrate 16 mg in 250 mls @ 5.996 mls/hr 08/23/24 03:07 Levophed In Ns 16mg/250ml IV 09/22/24 03:06 .Q24H PRN PER protocol Protocol 0.05 MCG/KG/MIN Doxycycline Hyclate 100 mg/ 100 mls @ 100 mls/hr 08/23/24 09:00 08/23/24 09:01 Sodium Chloride IV 08/30/24 08:59 100 mls/hr BID RINA Administration Insulin Glargine 15 unit 08/23/24 09:30 08/23/24 10:30 Insulin Glargine (Lantus) 5 Unit/0.05 Ml (Per 5 Units) SC 09/22/24 09:29 15 unit QDAY RINA Administration Insulin Human Lispro 0 unit 08/23/24 06:30 08/23/24 12:22 Insulin Lispro (Admelog) 1 Unit/0.01 Ml Unit SC 09/22/24 06:29 2 unit Q6HR RINA Administration Protocol Ondansetron HCl 4 mg 08/22/24 14:29 Ondansetron Inj 2 Mg/Ml Inj 2 Ml IV 09/21/24 14:28 Q6H PRN NAUSEA OR VOMITING Protocol Pantoprazole Sodium 40 mg 08/22/24 21:00 08/23/24 08:15 Pantoprazole Inj 40 Mg Vial IVP 09/21/24 20:59 40 mg Q12HR RINA Administration Pregabalin 150 mg 08/22/24 22:00 08/23/24 05:44 Pregabalin 75 Mg Capsule PO 09/21/24 21:59 Not Given TID RINA Plan Summary: The patient is a 54-year-old male with a past medical history of DM, CAD status post stents, HFpEF, hypertension, CO2 retainer from OHS/CAROLYN noncompliant on CPAP who presented to the ED on 08/22/2024 with shortness of breath and dizziness. Found to have acute blood loss anemia and admitted for GI evaluation. Neuro Deferred, currently sedated GCS-3 Plan: -Wean off propofol and fentanyl Cardiovascular #Cardiac arrest status post ROSC The patient had a CODE BLUE called after heart rate was low in the 30s and there was no electrical activity. ROSC obtained after about 8 minutes of chest compressions and 2 rounds of epinephrine. EKG done after was benign no acute ST or T changes. Troponin-negative #History of HFpEF 55 to 60% Patient has a history of HFpEF and was given 1 dose of Bumex 2 mg on admission. Continuing on strict FREIDA's and fluid restriction Plan: -Continue diuresis when tolerable -Strict I&O's -Pending echocardiogram #History of hypertension Patient does have a history of hypertension. Current blood pressure seem to be within the 140s and 150s. Will continue to monitor vital signs for now, no antihypertensive regimen. Pulmonary #Acute on chronic hypoxic respiratory failure #History of CAROLYN and OHS The patient has a history of CAROLYN and OHS, uses 2 L of oxygen at home as well as a CPAP at night. On admission, was started on BiPAP and received quetiapine as well as 2 rounds of Ativan for agitation just before FRITZ WHITLEY was called. Currently intubated and mechanically ventilated. Chest x-ray this morning shows endotracheal tube 4.8 cm above the isidro Plan: -Weaning of sedation -Keep on intubation and mechanical ventilation for GI procedure -Keep saturations between 88 to 92% -Extubate to BiPAP once indicated GI #Acute blood loss anemia #GI bleed #History of cirrhosis stable On admission, the patient reported dizziness and shortness of breath. Initial labs significant for hemoglobin of 4.3, he also reported multiple episodes of dark stool and some bright red blood per rectum. 3 units of PRBCs were ordered and patient was being transfused. Repeat H&H returned for Hgb of 5.9. Plan: -Continue transfusion, keep hemoglobin above 7 -Continue IV Protonix twice daily -Continue octreotide drip -GI consulted, appreciate recommendations -Posttransfusion H&H Renal #Acute kidney injury Likely in the setting of hypovolemia/hemorrhage. Admitting BUN and creatinine elevated, creatinine at 1.5, baseline of about 0.8. Patient received LR at about 75 cc/h Creatinine still at 1.6. Plan: -Continue transfusion -Repeat renal panel -Consider diuresis if patient's is fluid overloaded -Holding IV fluids for now Endocrinology #History of diabetes Patient has a history of diabetes and is on insulin 30 units twice daily as well as Coreg and Januvia. Last A1c done was 6.8. Blood glucose this morning at 247. Plan: -Start SC Lantus 15 units -Insulin sliding scale -Keep blood glucose between 140-1 80 -Hypoglycemic protocols in place -Repeat A1c Heme/Onc #Acute blood loss anemia -Refer to GI above Infectious #Right upper lobe pneumonia On admission, the patient did have some shortness of breath. He was requiring about 4 L of oxygen which was more than 2 L which he uses at home. Chest x-ray suspicious. Pneumonia. The patient was started on IV ceftriaxone and doxycycline Plan: -Continue antibiotics -Pending sputum and blood cultures -MRSA nasal screen Skin #Stage III pressure ulcer Patient has a history of ulcers, on examination he has a stage III pressure ulcer in the sacral region. Plan: -Wound care referral Health maintenance: Dispo: ICU, intubated, weaning off of sedation. Pending EGD Diet: N.p.o. GI: Pantoprazole DVT: SCDs Wright: In situ Lines: Peripheral Med Rec: Pending, f/u PT: Not ordered Code: Full Case was discussed with attending physician, Dr Nahun Ching MD PGY-1 Disclaimer: This note was dictated by speech recognition. Minor errors in network operations center engineer may be present due to voice recognition software. Attending Provider Attestation/Addendum Patient seen and examined with the above resident, James Ching MD. I agree with the findings, assessment, and plan of care as documented except for any differences below. Patient stabilized post in hospital cardiac arrest. Neurologic status still pending at this time. Sedation related versus true anoxic encephalopathy to be determined. Paln for sedation holiday for now. Optimize PEEP and no changes to ventilation otherwise. Patient will need EGD on this admission and we will not extubate today even if he does well to facilitate procedure later this evening. BUN/ Cr suggestive of upper GI bleed, PPI for now. No need for octreotide. Did require tranfusion. Children at bedside updated by housestaff. No indication for cooling protocol. Likely arrest was respiratory form oversedation with BZs and atypical antipsychotics in patient with OHs/ CAROLYN. Prompt ROSC achieved after being found. Bleeding also noted form IV in abdominal wall, discontinued with surgicel used to seal site. Will need to extubate to Bipap and industrial relations counselor on importance of shelter treatment of Pickwickian syndrome. Total critical care time: I personally spent 40 minutes for review of physiologic parameters, directing plan of care, coordination of care with other specialists, and counsleing family at bedside. This si exclusive of time spent teaching housestaff or performing any separate billable procedures. Patient remains at high risk for further morbidity and mortality warranting close monitoring and care only available in the ICU. Patient receiving critical care services for acut e on chronic hypoxic respiraotry failure, anoxic encephalopathy post PEA arrest, and probable upper GI bleed.
[2024-08-23 16:06] LABS: Hematocrit 18.8 % (41.0-53.0)
[2024-08-23] MEDS: CADEXOMER IODINE GEL 40 GM TUBE TOP (16:16)
--- NOTE | 2024-08-23 16:54 | PC.SS ---
Updated clinicals submitted to [facility] via [facility].
[2024-08-23 21:00] LABS: Hematocrit 21.1 % (41.0-53.0)
[2024-08-23 21:05] LABS: Hemoglobin 6.9 g/dL (13.5-16.0)
[2024-08-23] MEDS: fentaNYL 2,500 MCG/250 ML BAG 2,500 MCG/250 ML BAG 20 MCG IV (21:09)
[2024-08-23] MEDS: PROPOFOL 1,000 MG IVPB 1,000 MG/100 ML VIAL 38.374 MG IV (21:31)
[2024-08-24] VITALS (47 sets, daily range): BP systolic 134–171; BP diastolic 66–89; PULSE 62–82; RESP 0–20; TEMP 36–37.1; O2SAT 94–100; BMI 47.7
[2024-08-24] MEDS: INSULIN LISPRO (AdmeLOG) 1 UNIT/0.01 ML UNIT SC ×2 (00:30→12:47)
[2024-08-24] MEDS: DEXMEDETOMIDINE 200 MCG IVPB 200 MCG/50 ML BOTTLE 7.33 MCG IV ×3 (01:55→19:41)
[2024-08-24 05:11] LABS: Basophils % (Auto) 0 % (0-2.5); Eosinophils % (Auto) 0 % (0-10); Immature Granulocytes % (Auto) 1 % (0-0); Immature Granulocytes Auto 0.09 Thou/mm3 (0.00-0.00); Lymphocytes # (Auto) 1.1 Thou/mm3 (1.0-4.8); Lymphocytes % (Auto) 11 % (10-50); Mean Corpuscular HGB Conc 33.5 g/dl (31.0-37.0); Mean Corpuscular Hemoglobin 29.1 pg (25.0-35.0); Mean Corpuscular Volume 87 fL (80-100); Monocytes # (Auto) 1.6 Thou/mm3 (0.0-0.8); Monocytes % (Auto) 16 % (0-12); Neutrophils # (Auto) 7.3 Thou/mm3 (1.8-7.7); Neutrophils % (Auto) 73 % (37-80); Nucleated Red Blood Cell % 0 /100 WBC (0); Platelet Count 126 Thou/mm3 (140-440); Red Blood Count 2.65 Miln/mm3 (4.50-5.90)
[2024-08-24 05:18] LABS: Hemoglobin 7.7 g/dL (13.5-16.0)
[2024-08-24 05:36] LABS: Alanine Aminotransferase 31 U/L (10-49); Albumin/Globulin Ratio 1.4 (1.2-2.2); Alkaline Phosphatase 49 U/L (46-116); Anion Gap 8 (7-16); Aspartate Amino Transferase 34 U/L (0-34); Bilirubin,Total 0.2 mg/dL (0.3-1.2); Calcium 8.6 mg/dL (8.3-10.6); Calcium (Corrected) 9.4 mg/dL (8.5-10.1); Carbon Dioxide 30.2 mMol/L (20.0-31.0); Chloride 111 mMol/L (98-107); Creatinine (Component) 1.3 mg/dL (0.6-1.3); Estimated Creatinine Clearance 89.5 mL/min (>60); Globulin 2.2 gm/dL (2.3-3.5); Glucose 156 mg/dL (74-106); Magnesium 2.3 mg/dL (1.6-2.6); Osmolality,Calculated 333 (275-295); Potassium 4.5 mMol/L (3.4-5.1); Sodium 149 mMol/L (136-145); Total Protein 5.2 gm/dL (5.7-8.2); eGFR > 60 See Note
[2024-08-24 05:49] LABS: BUN/Creatinine Ratio 83 Ratio (12-20); Blood Urea Nitrogen 108 mg/dL (9-23)
[2024-08-24] MEDS: DEXTROSE 5%-WATER 500 ML 120 ML IV (08:31)
[2024-08-24] MEDS: PANTOPRAZOLE INJ 40 MG VIAL IVP ×2 (08:46→20:41)
[2024-08-24] MEDS: cefTRIAXone 1,000 MG in SODIUM CHLORIDE 0.9% (Popper) 50 ML 100 MG IV (08:46)
[2024-08-24] MEDS: DOXYCYCLINE INJ 100 MG in SODIUM CHLORIDE 0.9% (POP) 100 ML IV (08:46)
[2024-08-24] MEDS: INSULIN GLARGINE (Lantus) 5 UNIT/0.05 ML (PER 5 UNITS) 15 UNIT SC (08:51)
[2024-08-24] MEDS: POLYETHYLENE GLYCOL 17 GM PACKET NG (08:59)
[2024-08-24] MEDS: MUPIROCIN OINT 2% 15 GM TUBE TOP (10:20)
--- NOTE | 2024-08-24 12:55 | PC.SS ---
Update: Patient extubated today on BI-PAP. Swallow evaluation is pending. No pressor support. Patient on precedex drip. Possible downgrade tomorrow.
[2024-08-24] MEDS: DEXMEDETOMIDINE 200 MCG IVPB 200 MCG/50 ML BOTTLE 14.66 MCG IV (13:09)
--- NOTE | 2024-08-24 13:29 | PCS.ST ---
Pt just got extubated today. He is also drowsy. Swallow evaluation deferred for tomorrow.
[2024-08-24] MEDS: SODIUM CHLORIDE RT SOL 0.9% 3 ML NEBU INH (14:46)
[2024-08-24] MEDS: ALBUTEROL RT 2.5 MG/0.5 ML NEBU INH (14:46)
--- NOTE | 2024-08-24 16:17 | ESPR_ITS ---
<Statement entered by Siria Dimas MD - 08/24/24 17:05> Patient was examined bedside this morning, he has a good urine output around 1.6 L overnight. EGD was done by Dr. Wakefield yesterday which showed some esophagitis and gastritis with hemorrhage ,characterized by congestion. he was extubated in the morning currently saturating well in NC 3L. we will keep him in Bipap at night . hisHb today was 7.7 after 6 units of prbc. antibiotics were discontinued . I discussed with and supervised my co-resident involved in the care of this patient. I agree with the assessment and plan as documented above. Siria Dimas,PGY-3 Disclaimer: Despite multiple revisions, due to the dictation software being used, the document below may not be free of grammatical errors including phonetic/typographic errors. However, this does not deter from our commitment to providing health care in the patient's best interest in mind. Documentation for date of: 08/24/24 Subjective Subjective Interval history: Patient seen and examined at bedside. Overnight, had an EGD done by GI Dr. Wakefield was put on propofol and fentanyl. EGD showed some esophagitis and gastritis, however no active bleeding. Colonoscopy not planned as the patient had 1 about 6 weeks ago which showed some hemorrhoids and diverticula, no bleeding. Apparently, the patient was supposed to have made an appointment for capsule endoscopy but did not follow-up, GI will continue to follow. After the procedure was done, patient was agitated and had to be placed on Precedex. Bedside today, patient is awake, alert and oriented. GCS-7, untested verbal as he was still intubated. Patient was extubated to BiPAP and Precedex drip being turned down. Urine output overnight-1.6 L, vital stable. Hemoglobin at 7.7 after 6 units of PRBCs. CMP some hypernatremia with sodium of 149, BUN 108, normal creatinine. Will continue to monitor patient s/p extubation, doing swallow eval for possible diet commencement. WBC now within normal limits, no fevers, will discontinue antibiotics. Blood cultures negative, MRSA screen positive, will add mupirocin. Exam Vital Signs Temp Pulse Resp BP Pulse Ox O2 Del Method O2 Flow Rate 96.9 F 70 14 150/74 H 100 Nasal Cannula 3 08/24/24 12:00 08/24/24 15:00 08/24/24 15:00 08/24/24 15:00 08/24/24 15:00 08/23/24 00:00 08/24/24 14:47 FiO2 40 08/24/24 11:00 Narrative Exam GENERAL: Awake alert and oriented NEURO: DRUG ABUSE TREATMENT SPECIALIST grossly intact, moves extremities x 4 HEENT: Dry mucosa. Eyes closed CARDIO: No chest pain on palpation. Heart RRR, no obvious murmurs PULM: No noted coughing/dyspnea. Minimal crackles in the right upper lobe and bilateral bases, no wheezing GI: Abdomen soft, distended per body habitus. BSx4 URO/INFORMATICS COORDINATOR:: No further abnormalities noted. Wright catheter in situ SKIN/MSK/EXT: Pressure ulcer in the sacral region, stage III. 4 x 5 cm lesion in the medial epicondyle of the left leg, soft, immobile Objective Labs 08/30/24 05:05 08/30/24 05:05 Labs: Laboratory Results - last 24 hr 08/22/24 08/23/24 08/24/24 09:55 20:25 04:18 WBC 10.0 RBC 2.65 L Hgb 6.9 L* 7.7 L Hct 21.1 L* 23.0 L MCV 87 MCH 29.1 MCHC 33.5 RDW Std Deviation 52.0 H Plt Count 126 L Neut % (Auto) 73 Lymph % (Auto) 11 [place] % (Auto) 16 H Eos % (Auto) 0 Baso % (Auto) 0 Neut # (Auto) 7.3 Lymph # (Auto) 1.1 [place] # (Auto) 1.6 H Eos # (Auto) 0.0 Baso # (Auto) 0.0 Immature Gran # (Auto) 0.09 H Absolute Nucleated RBC 0.00 Immature Gran % 1 H Nucleated RBC % 0 Sodium 149 H Potassium 4.5 D Chloride 111 H Carbon Dioxide 30.2 Anion Gap 8 BUN 108 H* Creatinine 1.3 Estim Creat Clear Calc 89.5 eGFR > 60 BUN/Creatinine Ratio 83 H Glucose 156 H D Calculated Osmolality 333 H Calcium 8.6 Corrected Calcium 9.4 Phosphorus 6.0 H Magnesium 2.3 Total Bilirubin 0.2 L AST 34 ALT 31 Alkaline Phosphatase 49 Total Protein 5.2 L Albumin 3.0 L D Globulin 2.2 L Albumin/Globulin Ratio 1.4 Blood Type AB Positive Antibody Screen NEGATIVE Crossmatch See Detail Blood Bank Wristband ID Yes ABG Interpretation ABG results: 08/22/24 08/23/24 08:37 03:41 ABG pH 7.36 7.22 L D ABG pCO2 55 H 70 H D ABG pO2 70 L 252 H D ABG HCO3 31 H 28 H ABG O2 Saturation 94 101 H ABG Base Excess 5 H 1 Quality Measures Quality Measures none Assessment & Plan Assessment Current Active Medications: Generic Name Dose Route Start Last Admin Trade Name Freq PRN Reason Stop Dose Admin Acetaminophen 650 mg 08/22/24 14:29 Acetaminophen 325 Mg Tablet PO 09/21/24 14:28 Q6H PRN Fever >101.5 Acetaminophen 650 mg 08/22/24 14:29 Acetaminophen 325 Mg Tablet PO 09/21/24 14:28 Q6H PRN PAIN SCALE 1-3 (mild Hydrocodone Bitart/Acetaminophen 1 tab 08/22/24 16:47 Hydrocodone/Apap 10/325 Tab PO 08/27/24 16:46 Q4HR PRN PAIN RATED 7-10 Cadexomer Iodine 0 gm 08/23/24 12:45 08/24/24 10:51 Cadexomer Iodine Gel 40 Gm Tube TOP 08/30/24 12:44 Not Given DAILY RINA Cyclobenzaprine HCl 10 mg 08/22/24 16:50 Cyclobenzaprine 5 Mg Tablet PO 09/21/24 16:49 BID PRN MUSCLE SPASMS Dextrose 25 ml 08/22/24 16:13 Dextrose 50%-Water Inj 50 Ml Syringe IV 09/21/24 16:12 Q15MIN PRN BG 50-70 responsive npo pt Dextrose 50 ml 08/22/24 16:13 Dextrose 50%-Water Inj 50 Ml Syringe IV 09/21/24 16:12 Q15MIN PRN BG <50 OR BG <70 & pt unresponsive Glucagon 1 mg 08/22/24 16:13 Glucagon Inj 1 Mg Vial IM Q15MIN PRN BG <70, and no IV access Norepinephrine Bitartrate 16 mg in 250 mls @ 5.996 mls/hr 08/23/24 03:07 Levophed In Ns 16mg/250ml IV 09/22/24 03:06 .Q24H PRN PER protocol Protocol 0.05 MCG/KG/MIN Dexmedetomidine/Sodium Chloride 200 mcg in 50 mls @ 7.33 mls/hr 08/24/24 02:33 08/24/24 14:00 Precedex Ivpb IV 09/23/24 02:32 0 mcg/kg/hr .Q6H50M PRN 0 mls/hr Per PROTOCOL Titration Protocol 0.2 MCG/KG/HR Insulin Glargine 15 unit 08/23/24 09:30 08/24/24 08:51 Insulin Glargine (Lantus) 5 Unit/0.05 Ml (Per 5 Units) SC 09/22/24 09:29 15 unit QDAY RINA Administration Insulin Human Lispro 0 unit 08/23/24 06:30 08/24/24 12:47 Insulin Lispro (Admelog) 1 Unit/0.01 Ml Unit SC 09/22/24 06:29 1 unit Q6HR RINA Administration Protocol Ondansetron HCl 4 mg 08/22/24 14:29 Ondansetron Inj 2 Mg/Ml Inj 2 Ml IV 09/21/24 14:28 Q6H PRN NAUSEA OR VOMITING Protocol Pantoprazole Sodium 40 mg 08/22/24 21:00 08/24/24 08:46 Pantoprazole Inj 40 Mg Vial IVP 09/21/24 20:59 40 mg Q12HR RINA Administration Polyethylene Glycol 17 gm 08/24/24 09:00 08/24/24 08:59 Polyethylene Glycol 17 Gm Packet NG 09/23/24 08:59 17 gm QDAY RINA Administration Pregabalin 150 mg 08/22/24 22:00 08/23/24 05:44 Pregabalin 75 Mg Capsule PO 09/21/24 21:59 Not Given TID RINA Sodium Chloride 3 ml 08/24/24 14:41 08/24/24 14:46 Sodium Chloride Rt Radha 0.9% 3 Ml Nebu INH 09/23/24 14:40 3 ml PRN PRN Administration SOLN Plan Summary: The patient is a 54-year-old male with a past medical history of DM, CAD status post stents, HFpEF, hypertension, CO2 retainer from OHS/CAROLYN noncompliant on CPAP who presented to the ED on 08/22/2024 with shortness of breath and dizziness. Found to have acute blood loss anemia and admitted for GI evaluation. Neuro s/p extubation GCS-15 after extubation Plan: -Continue to monitor Cardiovascular #Cardiac arrest status post ROSC The patient had a CODE BLUE called after heart rate was low in the 30s and there was no electrical activity. ROSC obtained after about 8 minutes of chest compressions and 2 rounds of epinephrine. EKG done after was benign no acute ST or T changes. Troponin-negative #History of HFpEF 55 to 60% Patient has a history of HFpEF and was given 1 dose of Bumex 2 mg on admission. Continuing on strict FREIDA's and fluid restriction Plan: -Continue diuresis when tolerable -Strict I&O's -Pending echocardiogram #History of hypertension Patient does have a history of hypertension. Current blood pressure seem to be within the 140s and 150s. Will continue to monitor vital signs for now, no antihypertensive regimen. Pulmonary #Acute on chronic hypoxic respiratory failure #History of CAROLYN and OHS #S/P extubation The patient has a history of CAROLYN and OHS, uses 2 L of oxygen at home as well as a CPAP at night. On admission, was started on BiPAP and received quetiapine as well as 2 rounds of Ativan for agitation just before CODE BLUE was called. Currently intubated and mechanically ventilated. Chest x-ray this morning shows endotracheal tube 4.8 cm above the isidro 08/24/2024- Patient extubated to BIPAP today and subsequently transitioned to nasal cannula Plan: -Keep saturations between 88 to 92% -BIPAP as needed, HS GI #Acute blood loss anemia #GI bleed #History of cirrhosis stable On admission, the patient reported dizziness and shortness of breath. Initial labs significant for hemoglobin of 4.3, he also reported multiple episodes of dark stool and some bright red blood per rectum. 3 units of PRBCs were ordered and patient was being transfused. Repeat H&H returned for Hgb of 5.9. 08/24/2024: Hgb today at 7.7 after 6 units of pRBCs. EGD did not show any active bleeding. Plan: -Continue monitoring H&H -Continue IV Protonix -DC octreotide -GI consulted, appreciate recommendations Renal #Acute kidney injury, resolved Likely in the setting of hypovolemia/hemorrhage. Admitting BUN and creatinine elevated, creatinine at 1.5, baseline of about 0.8. Patient received LR at about 75 cc/h Creatinine still at 1.6. 08/24/2024: BUN still elevated at 108 normal creatinine. This could be either a consequence of steroids or the GI bleed. Plan: -Continue monitoring renal panel -Holding IV fluids for now Endocrinology #History of diabetes Patient has a history of diabetes and is on insulin 30 units twice daily as well as Coreg and Januvia. Last A1c done was 6.8. Blood glucose this morning at 247. 08/24/2024: Blood glucose at 156 this morning. A1c was ordered but canceled, to be completed at [facility], likely to be >14 Plan: -Continue SC Lantus 15 units -Insulin sliding scale -Keep blood glucose between 140-180 -Hypoglycemic protocols in place Heme/Onc #Acute blood loss anemia -Refer to GI above Infectious #Right upper lobe pneumonia On admission, the patient did have some shortness of breath. He was requiring about 4 L of oxygen which was more than 2 L which he uses at home. Chest x-ray suspicious. Pneumonia. The patient was started on IV ceftriaxone and doxycycline 08/24/2024: WBC within normal limits, negative blood cultures and no fevers. Will DC antibiotics. MRSA nares positive, will start mupirocin Plan: -DC antibiotics -Mupirocin for MRSA nares Skin #Stage III pressure ulcer Patient has a history of ulcers, on examination he has a stage III pressure ulcer in the sacral region. Plan: -Wound care referral Health maintenance: Dispo: ICU, intubated, weaning off of sedation. Pending EGD Diet: N.p.o. GI: Pantoprazole DVT: SCDs Wright: In situ Lines: Peripheral Med Rec: Pending, f/u PT: Not ordered Code: Full Case was discussed with Dr Dimas PGY-3 and attending physician, Dr Nahun Ching MD PGY-1 Disclaimer: This note was dictated by speech recognition. Minor errors in apprentice funeral director may be present due to voice recognition software. Attending Provider Attestation/Addendum Patient seen and examined with the above resident, James Ching MD. I agree with the findings, assessment, and plan of care as documented except for any differences below. Patient stabilized post in hospital cardiac arrest. Neurologic status still pending at this time. Sedation related versus true anoxic encephalopathy to be determined. Paln for sedation holiday for now. Optimize PEEP and no changes to ventilation otherwise. Patient will need EGD on this admission and we will not extubate today even if he does well to facilitate procedure later this evening. BUN/ Cr suggestive of upper GI bleed, PPI for now. No need for octreotide. Did require tranfusion. Children at bedside updated by housestaff. No indication for cooling protocol. Likely arrest was respiratory form oversedation with BZs and atypical antipsychotics in patient with OHs/ CAROLYN. Prompt ROSC achieved after being found. Bleeding also noted form IV in abdominal wall, discontinued with surgicel used to seal site. Will need to extubate to Bipap and cosmetic counselor on importance of rodent exterminator treatment of Pickwickian syndrome. Total critical care time: I personally spent 40 minutes for review of physiologic parameters, directing plan of care, coordination of care with other specialists, and counsleing family at bedside. This si exclusive of time spent teaching housestaff or performing any separate billable procedures. Patient remains at high risk for further morbidity and mortality warranting close monitoring and care only available in the ICU. Patient receiving critical care services for acut e on chronic hypoxic respiraotry failure, anoxic encephalopathy post PEA arrest, and probable upper GI bleed.
--- NOTE | 2024-08-24 20:52 | ESPR_ITS ---
Documentation for date of: 08/24/24 Subjective Subjective Interval history: Patient evaluated he is extubated hemoglobin hematocrit 7.7 and 23.0 Upper endoscopy showed gastric due to disorder and gastritis For GI blood loss the patient needs a capsule endoscopy which has to be done as an outpatient Exam Vital Signs Temp Pulse Resp BP Pulse Ox O2 Del Method O2 Flow Rate 97.2 F 65 11 L 148/66 H 99 Nasal Cannula 3 08/24/24 20:00 08/24/24 20:00 08/24/24 20:00 08/24/24 20:00 08/24/24 20:00 08/23/24 00:00 08/24/24 14:47 FiO2 40 08/24/24 11:00 Objective Labs 08/24/24 04:18 08/24/24 04:18 Labs: Laboratory Results - last 24 hr 08/22/24 08/23/24 08/24/24 09:55 20:25 04:18 WBC 10.0 RBC 2.65 L Hgb 6.9 L* 7.7 L Hct 21.1 L* 23.0 L MCV 87 MCH 29.1 MCHC 33.5 RDW Std Deviation 52.0 H Plt Count 126 L Neut % (Auto) 73 Lymph % (Auto) 11 [place] % (Auto) 16 H Eos % (Auto) 0 Baso % (Auto) 0 Neut # (Auto) 7.3 Lymph # (Auto) 1.1 [place] # (Auto) 1.6 H Eos # (Auto) 0.0 Baso # (Auto) 0.0 Immature Gran # (Auto) 0.09 H Absolute Nucleated RBC 0.00 Immature Gran % 1 H Nucleated RBC % 0 Sodium 149 H Potassium 4.5 D Chloride 111 H Carbon Dioxide 30.2 Anion Gap 8 BUN 108 H* Creatinine 1.3 Estim Creat Clear Calc 89.5 eGFR > 60 BUN/Creatinine Ratio 83 H Glucose 156 H D Calculated Osmolality 333 H Calcium 8.6 Corrected Calcium 9.4 Phosphorus 6.0 H Magnesium 2.3 Total Bilirubin 0.2 L AST 34 ALT 31 Alkaline Phosphatase 49 Total Protein 5.2 L Albumin 3.0 L D Globulin 2.2 L Albumin/Globulin Ratio 1.4 Blood Type AB Positive Antibody Screen NEGATIVE Crossmatch See Detail Blood Bank Wristband ID Yes Impressions Impression: Gastric motility disorder Hemorrhagic gastritis Continue to follow CBC Outpatient capsule endoscopy ABG Interpretation ABG results: 08/22/24 08/23/24 08:37 03:41 ABG pH 7.36 7.22 L D ABG pCO2 55 H 70 H D ABG pO2 70 L 252 H D ABG HCO3 31 H 28 H ABG O2 Saturation 94 101 H ABG Base Excess 5 H 1 Assessment & Plan A&P Narrative # Acute anemia blood loss Agree with the blood transfusion Initial test would be fiberoptic esophagogastroduodenoscopy with possible therapeutic intervention under intravenous moderate sedation if that is negative with a history of hematochezia we will consider doing a fiberoptic colonoscopy after GoLytely prep Other medical problems include # Acute respiratory failure requiring endotracheal intubation # CVA requiring bilateral carotid enterectomy # Vertebral hemangioma requiring radiation therapy # coronary artery disease status post PTCA # pulmonary embolism on Eliquis # Congestive heart failure # primary pulmonary hypertension # Diabetes mellitus type 2 # obesity syndrome Thank you very much for the opportunity to participate in the care of this patient Time Spent With Patient Time: Total time spent is greater than 50% in coordination of care (as documented) at patient's floor/unit and/or counseling patient:
[2024-08-25] VITALS (40 sets, daily range): BP systolic 144–198; BP diastolic 60–124; PULSE 63–88; RESP 9–30; TEMP 36.2–36.6; O2SAT 92–100; BMI 47.7; BMI 47.8
[2024-08-25] MEDS: DEXMEDETOMIDINE 200 MCG IVPB 200 MCG/50 ML BOTTLE 21.99 MCG IV (02:17)
[2024-08-25 04:33] LABS: Base Excess 8 (-3-3); HCO3 34 mEq/L (20-26); Inspired Oxygen, FIO2 40 %; O2 Saturation 99 % (91-98); PCO2 54 mmHg (32.0-48.0); PO2 105 mmHg (83-108)
[2024-08-25 04:37] LABS: Allen Test Performed/OK; Puncture Site Right Radial
[2024-08-25 05:18] LABS: Basophils % (Auto) 0 % (0-2.5); Eosinophils # (Auto) 0.1 Thou/mm3 (0.0-0.5); Eosinophils % (Auto) 1 % (0-10); Immature Granulocytes % (Auto) 1 % (0-0); Immature Granulocytes Auto 0.05 Thou/mm3 (0.00-0.00); Lymphocytes # (Auto) 1.1 Thou/mm3 (1.0-4.8); Lymphocytes % (Auto) 15 % (10-50); Mean Corpuscular HGB Conc 31.7 g/dl (31.0-37.0); Mean Corpuscular Hemoglobin 28.6 pg (25.0-35.0); Mean Corpuscular Volume 90 fL (80-100); Monocytes # (Auto) 1.1 Thou/mm3 (0.0-0.8); Monocytes % (Auto) 15 % (0-12); Neutrophils # (Auto) 5.3 Thou/mm3 (1.8-7.7); Neutrophils % (Auto) 69 % (37-80); Nucleated Red Blood Cell % 0 /100 WBC (0); Platelet Count 121 Thou/mm3 (140-440); RDW Standard Deviation 53.8 fL (35.1-43.9); Red Blood Count 2.66 Miln/mm3 (4.50-5.90); White Blood Count 7.7 Thou/mm3 (3.8-10.6)
[2024-08-25 05:31] LABS: Hemoglobin 7.6 g/dL (13.5-16.0)
[2024-08-25 05:42] LABS: Alanine Aminotransferase 23 U/L (10-49); Albumin/Globulin Ratio 1.3 (1.2-2.2); Alkaline Phosphatase 53 U/L (46-116); Anion Gap 8 (7-16); Aspartate Amino Transferase 36 U/L (0-34); BUN/Creatinine Ratio 69 Ratio (12-20); Bilirubin,Total 0.3 mg/dL (0.3-1.2); Blood Urea Nitrogen 76 mg/dL (9-23); Calcium 8.7 mg/dL (8.3-10.6); Calcium (Corrected) 9.5 mg/dL (8.5-10.1); Carbon Dioxide 31.1 mMol/L (20.0-31.0); Chloride 113 mMol/L (98-107); Creatinine (Component) 1.1 mg/dL (0.6-1.3); Estimated Creatinine Clearance 105.5 mL/min (>60); Globulin 2.3 gm/dL (2.3-3.5); Glucose 104 mg/dL (74-106); Magnesium 2.3 mg/dL (1.6-2.6); Osmolality,Calculated 324 (275-295); Phosphorous 3.8 mg/dL (2.4-5.1); Sodium 152 mMol/L (136-145); Total Protein 5.3 gm/dL (5.7-8.2); eGFR > 60 See Note
[2024-08-25] MEDS: DEXMEDETOMIDINE 200 MCG IVPB 200 MCG/50 ML BOTTLE 7.33 MCG IV (05:47)
[2024-08-25] MEDS: PANTOPRAZOLE INJ 40 MG VIAL IVP ×2 (08:10→20:14)
[2024-08-25] MEDS: POLYETHYLENE GLYCOL 17 GM PACKET NG (08:10)
[2024-08-25] MEDS: INSULIN GLARGINE (Lantus) 5 UNIT/0.05 ML (PER 5 UNITS) 15 UNIT SC (08:12)
[2024-08-25] MEDS: guaiFENesin/P-EPHED TABLET 1 TAB PO ×2 (10:20→20:13)
[2024-08-25] MEDS: HYDROcodone/APAP 10/325 TAB PO ×3 (10:25→19:49)
[2024-08-25] MEDS: CADEXOMER IODINE GEL 40 GM TUBE TOP (10:25)
[2024-08-25] MEDS: amLODIPine BESYLATE 5 MG TABLET 10 MG PO (11:49)
[2024-08-25] MEDS: DEXTROSE 5%-WATER 500 ML 125 ML IV (14:50)
--- NOTE | 2024-08-25 16:05 | PD.RESPRO ---
Documentation for date of: 08/25/24 Subjective Subjective Interval history: Patient seen and examined at bedside. No acute overnight events. Patient was kept on Precedex drip, however down titrating. BiPAP was on overnight, ABG this morning, pH-7.4, CO2-64 overnight to have a urine output of almost 3 L, possibly postextubation diuresis. At bedside today, he is AAO x 4 although had a hard time remembering the events of the last couple days. He reports some cough and congestion, otherwise has no complaints. Sputum culture returned positive for GPC. Blood pressure seem to be elevated in the 170s and has been in about that range in the last 24 hours. Will start amlodipine 10 mg now. Labs reviewed, hyponatremia at 152. His chest x-ray did show some vascular congestion, will aim to give fluids, total of 3 L-1.5 today and another tomorrow. Patient is stable to be downgraded back to floors for medicine team to take over. Exam Vital Signs Temp Pulse Resp BP Pulse Ox O2 Del Method O2 Flow Rate 97.4 F 83 15 175/85 H 96 Nasal Cannula 2 08/25/24 08:00 08/25/24 13:55 08/25/24 13:55 08/25/24 12:01 08/25/24 13:55 08/25/24 13:15 08/25/24 13:15 FiO2 40 08/25/24 03:30 Narrative Exam GENERAL: Awake alert and oriented NEURO: ORNAMENTAL IRONWORKER grossly intact, moves extremities x 4 HEENT: Dry mucosa. Eyes closed CARDIO: No chest pain on palpation. Heart RRR, no obvious murmurs PULM: No noted coughing/dyspnea. Minimal crackles in the right upper lobe and bilateral bases, no wheezing GI: Abdomen soft, distended per body habitus. BSx4 URO/SENIOR LABEL SPECIALIST:: No further abnormalities noted. Wright catheter in situ SKIN/MSK/EXT: Pressure ulcer in the sacral region, stage III. 4 x 5 cm lesion in the medial epicondyle of the left leg, soft, immobile Objective Labs 08/26/24 08:06 08/26/24 08:06 Labs: Laboratory Results - last 24 hr 08/25/24 08/25/24 04:18 04:26 WBC 7.7 RBC 2.66 L Hgb 7.6 L Hct 24.0 L MCV 90 MCH 28.6 MCHC 31.7 RDW Std Deviation 53.8 H Plt Count 121 L Neut % (Auto) 69 Lymph % (Auto) 15 [place] % (Auto) 15 H Eos % (Auto) 1 Baso % (Auto) 0 Neut # (Auto) 5.3 Lymph # (Auto) 1.1 [place] # (Auto) 1.1 H Eos # (Auto) 0.1 Baso # (Auto) 0.0 Immature Gran # (Auto) 0.05 H Absolute Nucleated RBC 0.00 Immature Gran % 1 H Nucleated RBC % 0 Puncture Site Right Radial ABG pH 7.40 D ABG pCO2 54 H D ABG pO2 105 D ABG HCO3 34 H ABG O2 Saturation 99 H ABG Base Excess 8 H FiO2 40 Sodium 152 H Potassium 4.0 D Chloride 113 H Carbon Dioxide 31.1 H Anion Gap 8 BUN 76 H Creatinine 1.1 Estim Creat Clear Calc 105.5 eGFR > 60 BUN/Creatinine Ratio 69 H Glucose 104 D Calculated Osmolality 324 H Calcium 8.7 Corrected Calcium 9.5 Phosphorus 3.8 Magnesium 2.3 Total Bilirubin 0.3 AST 36 H ALT 23 Alkaline Phosphatase 53 Total Protein 5.3 L Albumin 3.0 L Globulin 2.3 Albumin/Globulin Ratio 1.3 ABG Interpretation ABG results: 08/22/24 08/23/24 08/25/24 08:37 03:41 04:26 ABG pH 7.36 7.22 L D 7.40 D ABG pCO2 55 H 70 H D 54 H D ABG pO2 70 L 252 H D 105 D ABG HCO3 31 H 28 H 34 H ABG O2 Saturation 94 101 H 99 H ABG Base Excess 5 H 1 8 H Quality Measures Quality Measures none Assessment & Plan Assessment Current Active Medications: Generic Name Dose Route Start Last Admin Trade Name Freq PRN Reason Stop Dose Admin Acetaminophen 650 mg 08/22/24 14:29 Acetaminophen 325 Mg Tablet PO 09/21/24 14:28 Q6H PRN Fever >101.5 Acetaminophen 650 mg 08/22/24 14:29 Acetaminophen 325 Mg Tablet PO 09/21/24 14:28 Q6H PRN PAIN SCALE 1-3 (mild Hydrocodone Bitart/Acetaminophen 1 tab 08/22/24 16:47 08/25/24 14:49 Hydrocodone/Apap 10/325 Tab PO 08/27/24 16:46 1 tab Q4HR PRN Administration PAIN RATED 7-10 Amlodipine Besylate 10 mg 08/25/24 11:15 08/25/24 11:49 Amlodipine Besylate 5 Mg Tablet PO 09/24/24 11:14 10 mg QDAY RINA Administration Cadexomer Iodine 0 gm 08/23/24 12:45 08/25/24 10:25 Cadexomer Iodine Gel 40 Gm Tube TOP 08/30/24 12:44 1 appln DAILY RINA Administration Cyclobenzaprine HCl 10 mg 08/22/24 16:50 Cyclobenzaprine 5 Mg Tablet PO 09/21/24 16:49 BID PRN MUSCLE SPASMS Dextrose 25 ml 08/22/24 16:13 Dextrose 50%-Water Inj 50 Ml Syringe IV 09/21/24 16:12 Q15MIN PRN BG 50-70 responsive npo pt Dextrose 50 ml 08/22/24 16:13 Dextrose 50%-Water Inj 50 Ml Syringe IV 09/21/24 16:12 Q15MIN PRN BG <50 OR BG <70 & pt unresponsive Glucagon 1 mg 08/22/24 16:13 Glucagon Inj 1 Mg Vial IM Q15MIN PRN BG <70, and no IV access Guaifenesin 1 tab 08/25/24 10:00 08/25/24 10:20 Guaifenesin/P-Ephed Tablet PO 09/24/24 09:59 1 tab BID RINA Administration Norepinephrine Bitartrate 16 mg in 250 mls @ 5.996 mls/hr 08/23/24 03:07 Levophed In Ns 16mg/250ml IV 09/22/24 03:06 .Q24H PRN PER protocol Protocol 0.05 MCG/KG/MIN Dexmedetomidine/Sodium Chloride 200 mcg in 50 mls @ 7.33 mls/hr 08/24/24 02:33 08/25/24 06:00 Precedex Ivpb IV 09/23/24 02:32 0.2 mcg/kg/hr .Q6H50M PRN 7.33 mls/hr Per PROTOCOL Titration Protocol 0.2 MCG/KG/HR Dextrose 500 mls @ 125 mls/hr 08/25/24 14:30 08/25/24 14:50 D5w IV 08/25/24 18:29 125 mls/hr .Q4H RINA Administration Insulin Glargine 15 unit 08/23/24 09:30 08/25/24 08:12 Insulin Glargine (Lantus) 5 Unit/0.05 Ml (Per 5 Units) SC 09/22/24 09:29 15 unit QDAY RINA Administration Insulin Human Lispro 0 unit 08/23/24 06:30 08/25/24 11:49 Insulin Lispro (Admelog) 1 Unit/0.01 Ml Unit SC 09/22/24 06:29 Not Given Q6HR RINA Protocol Ondansetron HCl 4 mg 08/22/24 14:29 Ondansetron Inj 2 Mg/Ml Inj 2 Ml IV 09/21/24 14:28 Q6H PRN NAUSEA OR VOMITING Protocol Pantoprazole Sodium 40 mg 08/22/24 21:00 08/25/24 08:10 Pantoprazole Inj 40 Mg Vial IVP 09/21/24 20:59 40 mg Q12HR RINA Administration Polyethylene Glycol 17 gm 08/26/24 09:00 Polyethylene Glycol 17 Gm Packet PO 09/25/24 08:59 QDAY RINA Pregabalin 150 mg 08/22/24 22:00 08/23/24 05:44 Pregabalin 75 Mg Capsule PO 09/21/24 21:59 Not Given TID RINA Sodium Chloride 3 ml 08/24/24 14:41 08/24/24 14:46 Sodium Chloride Rt Radha 0.9% 3 Ml Nebu INH 09/23/24 14:40 3 ml PRN PRN Administration SOLN Plan Summary: The patient is a 54-year-old male with a past medical history of DM, CAD status post stents, HFpEF, hypertension, CO2 retainer from OHS/CAROLYN noncompliant on CPAP who presented to the ED on 08/22/2024 with shortness of breath and dizziness. Found to have acute blood loss anemia and admitted for GI evaluation. Neuro s/p extubation GCS-15 after extubation Plan: -Continue to monitor Cardiovascular #Cardiac arrest status post ROSC The patient had a CODE BLUE called after heart rate was low in the 30s and there was no electrical activity. ROSC obtained after about 8 minutes of chest compressions and 2 rounds of epinephrine. EKG done after was benign no acute ST or T changes. Troponin-negative #History of HFpEF 55 to 60% Patient has a history of HFpEF and was given 1 dose of Bumex 2 mg on admission. Continuing on strict FREIDA's and fluid restriction Plan: -Continue diuresis when tolerable -Strict I&O's -Pending echocardiogram #History of hypertension Patient does have a history of hypertension. Current blood pressure seem to be within the 140s and 150s. Will continue to monitor vital signs for now, no antihypertensive regimen. 08/25/2024: Blood pressure has consistently stayed in the 160s 170s. Will start amlodipine 10 mg daily Plan: -Amlodipine 10 mg daily Pulmonary #Acute on chronic hypoxic respiratory failure #History of CAROLYN and OHS #S/P extubation The patient has a history of CAROLYN and OHS, uses 2 L of oxygen at home as well as a CPAP at night. On admission, was started on BiPAP and received quetiapine as well as 2 rounds of Ativan for agitation just before FRITZ WHITLEY was called. Currently intubated and mechanically ventilated. Chest x-ray this morning shows endotracheal tube 4.8 cm above the isidro 08/25/2024-patient has been on BiPAP overnight. ABG this morning with pH of 7.4 and CO2 of 54 which is about his baseline. No transition to nasal cannula and doing well on 3 L, will continue BiPAP at night. Plan: -Keep saturations between 88 to 92% -BIPAP as needed, HS GI #Acute blood loss anemia-stable #GI bleed #History of cirrhosis stable On admission, the patient reported dizziness and shortness of breath. Initial labs significant for hemoglobin of 4.3, he also reported multiple episodes of dark stool and some bright red blood per rectum. 3 units of PRBCs were ordered and patient was being transfused. Repeat H&H returned for Hgb of 5.9. 08/24/2024: Hgb today at 7.7 after 6 units of pRBCs. EGD did not show any active bleeding. Plan: -Continue monitoring H&H -Continue IV Protonix -GI consulted, appreciate recommendations Renal #Acute kidney injury, resolved Likely in the setting of hypovolemia/hemorrhage. Admitting BUN and creatinine elevated, creatinine at 1.5, baseline of about 0.8. Patient received LR at about 75 cc/h Creatinine still at 1.6. 08/24/2024: BUN still elevated at 108 normal creatinine. This could be either a consequence of steroids or the GI bleed. 08/26/2023: BUN normalized today, creatinine at 1.1. Plan: -Continue monitoring renal panel -Holding IV fluids for now #Hypernatremia Sodium today at 152. Patient had significant diuresis overnight, close to 3 L urine output, due to postextubation redistribution. Will give 500 cc of D5W and encourage oral intake to return a total of 1.5 L today and tomorrow. Plan: -Give total of 1.5 L of fluid today -Repeat renal panel in the morning Endocrinology #History of diabetes Patient has a history of diabetes and is on insulin 30 units twice daily as well as Coreg and Januvia. Last A1c done was 6.8. Blood glucose this morning at 247. 08/24/2024: Blood glucose at 156 this morning. A1c was ordered but canceled, to be completed at [place], likely to be >14 Plan: -Continue SC Lantus 15 units -Insulin sliding scale -Keep blood glucose between 140-180 -Hypoglycemic protocols in place Heme/Onc #Acute blood loss anemia -Refer to GI above Infectious #Right upper lobe pneumonia On admission, the patient did have some shortness of breath. He was requiring about 4 L of oxygen which was more than 2 L which he uses at home. Chest x-ray suspicious. Pneumonia. The patient was started on IV ceftriaxone and doxycycline 08/24/2024: WBC within normal limits, negative blood cultures and no fevers. Will DC antibiotics. MRSA nares positive, will start mupirocin Plan: -DC antibiotics -Mupirocin for MRSA nares Skin #Stage III pressure ulcer Patient has a history of ulcers, on examination he has a stage III pressure ulcer in the sacral region. Plan: -Wound care referral Health maintenance: Dispo: ICU, intubated, weaning off of sedation. Pending EGD Diet: N.p.o. GI: Pantoprazole DVT: SCDs Wright: In situ Lines: Peripheral Med Rec: Pending, f/u PT: Not ordered Code: Full Case was discussed with attending physician, Dr Nahun Ching MD PGY-1 Disclaimer: This note was dictated by speech recognition. Minor errors in wind turbine design engineer may be present due to voice recognition software. Attending Provider Attestation/Addendum Patient seen and examined with the above resident, James Ching MD. I agree with the findings, assessment, and plan of care as documented. Patient with continued improvement post-extubation. Tolerated Bipap overnight which should continue while he is hospitalized and OP evaluation/ treatment should be ongoing for OHS and CAROLYN with CHF component as well. Effusions noted on chest imaging but brisk diuresis with removal of PPV. Patient will receive some fluids today to help with hypernatremia as well. Plan for diuresis in coming days as he remains stable. May be better to do thoracentesis early next week for mechanical elimination of pleural effusion to help with respiratory status though on low flow NC and doing well. Review of CTA, unlikely true pneumonia, will stop antibiotics now. He is eating a diet, well tolerate.d Ongoing chest pain from prior bruising of chest compressions. Okay to transfer to [facility] for ongoing optimization prior to discharge. Good neurologic outcome form brief in hospital cardiac arrest, likely respiratory in origin. Appreciate GI input with identified esophagitis, PPI per Dr. Wakefield's recommendations. No evidence of ongoing bleeding now.Patient/ patient's daughters and patient counseled at bedside. Total critical care time: I personally spent 40 minutes for review of physiologic parameters, directing plan of care, coordination of care with other specialists, and counseling patient/ family at the bedside. This is exclusive of time spent teaching housestaff or performing any sepearate billable procedures. Patient continued to require critical care services for acute hypoxic respiratory failure and cardiac arrest. Remained at high risk for further morbisity and mortality warranting ongoing monitoring and care only available in the intensive care unit.
--- NOTE | 2024-08-25 16:22 | ESPR_ITS ---
<Statement entered by Lisa Berg MD - 08/25/24 17:07> I discussed with and supervised the internet cafe manager physician who took care of this patient. I personally saw and examined the patient and discussed the assessment and plan with the entire medicine team, including my attending Dr. Askew, I agree with the assessment and plan as documented below Patient seen and examined at bedside today. Labs and imaging reviewed. 54-year-old men with past medical history significant for insulin-dependent diabetes, CAD status post stents, HFpEF, CVA, coronary artery stenosis status post bilateral endarterectomy, PE x 2 on Eliquis, hypertension, chronic CO2 due to CAROLYN and OHS who was downgraded from ICU due to cardiac arrest most likely multifactorial in the setting of acute on chronic hypoxic respiratory failure and acute loss anemiaPatient was evaluated today in the ICU with family member daughter at the bedside, lethargic, respond to question properly endorsed that he still has chest pain denied any other complaints at this moment. Due to patient is hemodynamically stable will be downgraded to telemetry floor from ICU to continue to of care by internal medicine team and we will continue BiPAP as needed at night, as well as IV fluids D5W and encourage p.o. intake of water for hypernatremia and continue to monitor sodium every 4 hours. Lisa Berg MD PGY-3 Disclaimer: Despite multiple revisions, due to the dictation software being used, the document bellow may not be free of grammatical errors including phonetic/typographic errors. However, this does not deter from our commitment to providing health care in the patient's best interest in mind. Documentation for date of: 08/25/24 Subjective Subjective Interval history: Patient extubated, downgraded from ICU to floors for further management. Patient seen and examined at bedside. Patient lethargic, responsive and cooperative. Patient endorsed mild chest pain and cough, denies shortness of breath, fever, chills. Patient receiving IV fluids for hypernatremia. Exam Vital Signs Temp Pulse Resp BP Pulse Ox O2 Del Method O2 Flow Rate 97.4 F 88 13 165/68 H 93 L Nasal Cannula 2 08/25/24 08:00 08/25/24 16:10 08/25/24 16:10 08/25/24 15:59 08/25/24 16:10 08/25/24 16:10 08/25/24 16:10 FiO2 40 08/25/24 03:30 Narrative Exam PE: Gen: Well-developed and well-nourished. Obese. HEENT: NCAT, PERRLA, EOMI, MMM, anicteric conjunctivae. CVS: normal S1 and S2. RRR. No M/R/G. Resp: Rhonchi right side. Diminished lung sounds throughout. Abd: soft, non-tender, non-distended. MSK: Good ROM in BUE & BLE. No rash. 4+ pitting edema BLE. 2+ pitting edema bilateral hands. Neuro: CN II-XII grossly intact. Strength 5/5 in BUE & BLE. Alert and oriented x3. Psych: appropriate mood and affect. Objective Labs 08/26/24 08:06 08/26/24 08:06 Labs: Laboratory Results - last 24 hr 08/25/24 08/25/24 04:18 04:26 WBC 7.7 RBC 2.66 L Hgb 7.6 L Hct 24.0 L MCV 90 MCH 28.6 MCHC 31.7 RDW Std Deviation 53.8 H Plt Count 121 L Neut % (Auto) 69 Lymph % (Auto) 15 [place] % (Auto) 15 H Eos % (Auto) 1 Baso % (Auto) 0 Neut # (Auto) 5.3 Lymph # (Auto) 1.1 [place] # (Auto) 1.1 H Eos # (Auto) 0.1 Baso # (Auto) 0.0 Immature Gran # (Auto) 0.05 H Absolute Nucleated RBC 0.00 Immature Gran % 1 H Nucleated RBC % 0 Puncture Site Right Radial ABG pH 7.40 D ABG pCO2 54 H D ABG pO2 105 D ABG HCO3 34 H ABG O2 Saturation 99 H ABG Base Excess 8 H FiO2 40 Sodium 152 H Potassium 4.0 D Chloride 113 H Carbon Dioxide 31.1 H Anion Gap 8 BUN 76 H Creatinine 1.1 Estim Creat Clear Calc 105.5 eGFR > 60 BUN/Creatinine Ratio 69 H Glucose 104 D Calculated Osmolality 324 H Calcium 8.7 Corrected Calcium 9.5 Phosphorus 3.8 Magnesium 2.3 Total Bilirubin 0.3 AST 36 H ALT 23 Alkaline Phosphatase 53 Total Protein 5.3 L Albumin 3.0 L Globulin 2.3 Albumin/Globulin Ratio 1.3 ABG Interpretation ABG results: 08/22/24 08/23/24 08/25/24 08:37 03:41 04:26 ABG pH 7.36 7.22 L D 7.40 D ABG pCO2 55 H 70 H D 54 H D ABG pO2 70 L 252 H D 105 D ABG HCO3 31 H 28 H 34 H ABG O2 Saturation 94 101 H 99 H ABG Base Excess 5 H 1 8 H Quality Measures Quality Measures VTE prophylaxis Assessment & Plan Assessment Current Active Medications: Generic Name Dose Route Start Last Admin Trade Name Freq PRN Reason Stop Dose Admin Acetaminophen 650 mg 08/22/24 14:29 Acetaminophen 325 Mg Tablet PO 09/21/24 14:28 Q6H PRN Fever >101.5 Acetaminophen 650 mg 08/22/24 14:29 Acetaminophen 325 Mg Tablet PO 09/21/24 14:28 Q6H PRN PAIN SCALE 1-3 (mild Hydrocodone Bitart/Acetaminophen 1 tab 08/22/24 16:47 08/25/24 14:49 Hydrocodone/Apap 10/325 Tab PO 08/27/24 16:46 1 tab Q4HR PRN Administration PAIN RATED 7-10 Amlodipine Besylate 10 mg 08/25/24 11:15 08/25/24 11:49 Amlodipine Besylate 5 Mg Tablet PO 09/24/24 11:14 10 mg QDAY RINA Administration Cadexomer Iodine 0 gm 08/23/24 12:45 08/25/24 10:25 Cadexomer Iodine Gel 40 Gm Tube TOP 08/30/24 12:44 1 appln DAILY RINA Administration Cyclobenzaprine HCl 10 mg 08/22/24 16:50 Cyclobenzaprine 5 Mg Tablet PO 09/21/24 16:49 BID PRN MUSCLE SPASMS Dextrose 25 ml 08/22/24 16:13 Dextrose 50%-Water Inj 50 Ml Syringe IV 09/21/24 16:12 Q15MIN PRN BG 50-70 responsive npo pt Dextrose 50 ml 08/22/24 16:13 Dextrose 50%-Water Inj 50 Ml Syringe IV 09/21/24 16:12 Q15MIN PRN BG <50 OR BG <70 & pt unresponsive Glucagon 1 mg 08/22/24 16:13 Glucagon Inj 1 Mg Vial IM Q15MIN PRN BG <70, and no IV access Guaifenesin 1 tab 08/25/24 10:00 08/25/24 10:20 Guaifenesin/P-Ephed Tablet PO 09/24/24 09:59 1 tab BID RINA Administration Norepinephrine Bitartrate 16 mg in 250 mls @ 5.996 mls/hr 08/23/24 03:07 Levophed In Ns 16mg/250ml IV 09/22/24 03:06 .Q24H PRN PER protocol Protocol 0.05 MCG/KG/MIN Dexmedetomidine/Sodium Chloride 200 mcg in 50 mls @ 7.33 mls/hr 08/24/24 02:33 08/25/24 06:00 Precedex Ivpb IV 09/23/24 02:32 0.2 mcg/kg/hr .Q6H50M PRN 7.33 mls/hr Per PROTOCOL Titration Protocol 0.2 MCG/KG/HR Dextrose 500 mls @ 125 mls/hr 08/25/24 14:30 08/25/24 14:50 D5w IV 08/25/24 18:29 125 mls/hr .Q4H RINA Administration Insulin Glargine 15 unit 08/23/24 09:30 08/25/24 08:12 Insulin Glargine (Lantus) 5 Unit/0.05 Ml (Per 5 Units) SC 09/22/24 09:29 15 unit QDAY RINA Administration Insulin Human Lispro 0 unit 08/23/24 06:30 08/25/24 11:49 Insulin Lispro (Admelog) 1 Unit/0.01 Ml Unit SC 09/22/24 06:29 Not Given Q6HR RINA Protocol Ondansetron HCl 4 mg 08/22/24 14:29 Ondansetron Inj 2 Mg/Ml Inj 2 Ml IV 09/21/24 14:28 Q6H PRN NAUSEA OR VOMITING Protocol Pantoprazole Sodium 40 mg 08/22/24 21:00 08/25/24 08:10 Pantoprazole Inj 40 Mg Vial IVP 09/21/24 20:59 40 mg Q12HR RINA Administration Polyethylene Glycol 17 gm 08/26/24 09:00 Polyethylene Glycol 17 Gm Packet PO 09/25/24 08:59 QDAY RINA Pregabalin 150 mg 08/22/24 22:00 08/23/24 05:44 Pregabalin 75 Mg Capsule PO 09/21/24 21:59 Not Given TID RINA Sodium Chloride 3 ml 08/24/24 14:41 08/24/24 14:46 Sodium Chloride Rt Radha 0.9% 3 Ml Nebu INH 09/23/24 14:40 3 ml PRN PRN Administration SOLN Plan 54-year-old male with a past medical history of DM, CAD status post stents, HFpEF, hypertension, CO2 retainer from OHS/CAROLYN noncompliant on CPAP who presented to the ED on 08/22/2024 with shortness of breath and dizziness. Found to have acute blood loss anemia and admitted for GI evaluation. #Acute on chronic hypoxic respiratory failure, improved #CAROLYN and OHS #S/P extubation #Right upper lobe pneumonia On admission, the patient did have some shortness of breath. He was requiring about 4 L of oxygen which was more than 2 L which he uses at home. Chest x-ray suspicious forp pneumonia. The patient was started on IV ceftriaxone and doxycycline. Patient was started on BiPAP received quetiapine as well as 2 rounds of Ativan for agitation, CODE BLUE was called. Patient began to be mechanically ventilated, was extubated and transition to BiPAP. ABG showed pH of 7.4 and CO2 54, patient transition to nasal cannula. Patient downgraded to floors for further management. Antibiotics were discontinued, negative blood cultures, afebrile. The patient has a history of CAROLYN and OHS, uses 2 L of oxygen at home as well as a CPAP at night. -Keep saturations between 88 to 92% -BIPAP as needed, HS -Supplemental O2, titrate as needed. -DC antibiotics -Mupirocin for MRSA nares #History of HFpEF 55 to 60% #Cardiac arrest status post ROSC The patient had a CODE BLUE called after heart rate was low in the 30s and there was no electrical activity. ROSC obtained after about 8 minutes of chest compressions and 2 rounds of epinephrine. EKG done after was benign no acute ST or T changes. Troponin-negative. Patient has a history of HFpEF and was given 1 dose of Bumex 2 mg on admission. -Strict I&O's -Pending echocardiogram -Receiving IVF for hypertension #Acute blood loss anemia-stable #GI bleed #History of cirrhosis stable On admission, the patient reported dizziness and shortness of breath. Initial labs significant for hemoglobin of 4.3, he also reported multiple episodes of dark stool and some bright red blood per rectum. 3 units of PRBCs were ordered and patient was being transfused. Repeat H&H returned for Hgb of 5.9. 08/24/2024: Hgb today at 7.7 after 6 units of pRBCs. EGD did not show any active bleeding. -Continue monitoring H&H -Continue IV Protonix -GI consulted, appreciate recommendations -Patient to get capsule endoscopy outpatient #Hypertension Patient does have a history of hypertension. BP meds initially held. Blood pressure consistently stayed 160?170. Amlodipine initiated. -Amlodipine 10 mg daily #Hypernatremia Sodium today at 152. Patient had significant diuresis overnight, close to 3 L urine output, due to postextubation redistribution. Will give 500 cc of D5W and encourage oral intake to return a total of 1.5 L today and tomorrow. -Give total of 1.5 L of D5W today -Repeat renal panel in the morning #Diabetes Patient has a history of diabetes and is on insulin 30 units twice daily as well as Coreg and Januvia. Last A1c done was 6.8. Blood glucose this morning at 247. 08/24/2024: Blood glucose at 156 this morning. A1c was ordered but canceled, to be completed at [facility], likely to be >14 -Continue SC Lantus 15 units -Insulin sliding scale -Keep blood glucose between 140-180 -Hypoglycemic protocols in place #Stage III pressure ulcer Patient has a history of ulcers, on examination he has a stage III pressure ulcer in the sacral region. -Wound care referral #Acute kidney injury, resolved Likely in the setting of hypovolemia/hemorrhage. Admitting BUN and creatinine elevated, creatinine at 1.5, baseline of about 0.8. Patient received LR at about 75 cc/h Creatinine still at 1.6. 08/24/2024: BUN still elevated at 108 normal creatinine. This could be either a consequence of steroids or the GI bleed. 08/26/2023: BUN normalized today, creatinine at 1.1. -Continue monitoring renal panel DVT prophylaxis: SCDs GI prophylaxis: Protonix Diet: Carb consistent low Lines: Peripheral IV, Wright cath Code status: Full code Plan of care discussed with senior resident Dr. Berg PGY?[address] Askew. Enrique Justice MD PGY?1 Attending Provider Attestation/Addendum Dianna Camara, DO, attest that I was physically present for the kirkpatrick portions of the service and evaluated the patient with the resident and I reviewed and discussed the case with the resident and agree with the resident's findings and plans of care as documented above Patient seen and eval this a.m. in the ICU. Patient has been downgraded after he was extubated yesterday. Patient had a PEA arrest on 08/23 after which she had received Seroquel and Ativan for agitation and confusion. Patient does have a history of CAROLYN and OHS requiring multiple admissions. Patient will need to maintain use of BiPAP when sleeping. Daughter was at bedside at time of evaluation. Encourage patient to use BiPAP when resting, as well as incentive spirometer. Will order chest PT as patient sounds congested. Patient does appear weak and reports pain in his ribs, likely secondary to CPR. He is currently on 2 L nasal cannula. Will order physical therapy as patient is very deconditioned. He is still pending further workup of acute blood loss anemia and suspected GI bleed. Patient has since required 6 units of PRBCs. Hemoglobin is currently stable. Endoscopy was done on 08/23 during which patient had a distended stomach with present large amount of food, likely due to gastric motility disorder. He had some esophagitis and gastritis with hemorrhage due to congestion. Will continue with Protonix IV. He may also need an outpatient capsule endoscopy upon discharge. Will limit pain medications at this time due to concern for CO2 retention. Patient was able to tolerate p.o. intake. Will hold off on any IV fluids despite elevated BUN and hypernatremia due to concern for worsening fluid overload. He is noted to have 1+ bilateral pitting edema in lower extremities. Echocardiogram shows EF of 55 to 60% with diastolic dysfunction. Patient will likely need an acute rehab on discharge. Continue with wound care as patient has a chronic sacral decubitus wound.
--- NOTE | 2024-08-25 17:08 | PD.IMPROG ---
Documentation for date of: 08/25/24 Subjective Subjective Interval history: Patient evaluated He is out of the ICU Hemoglobin hematocrit 7.6 and 24.0 Exam Vital Signs Temp Pulse Resp BP Pulse Ox O2 Del Method O2 Flow Rate 97.4 F 88 13 165/68 H 93 L Nasal Cannula 2 08/25/24 08:00 08/25/24 16:10 08/25/24 16:10 08/25/24 15:59 08/25/24 16:10 08/25/24 16:10 08/25/24 16:10 FiO2 40 08/25/24 03:30 Objective Labs 08/25/24 04:18 08/25/24 04:18 Labs: Laboratory Results - last 24 hr 08/25/24 08/25/24 04:18 04:26 WBC 7.7 RBC 2.66 L Hgb 7.6 L Hct 24.0 L MCV 90 MCH 28.6 MCHC 31.7 RDW Std Deviation 53.8 H Plt Count 121 L Neut % (Auto) 69 Lymph % (Auto) 15 [place] % (Auto) 15 H Eos % (Auto) 1 Baso % (Auto) 0 Neut # (Auto) 5.3 Lymph # (Auto) 1.1 [place] # (Auto) 1.1 H Eos # (Auto) 0.1 Baso # (Auto) 0.0 Immature Gran # (Auto) 0.05 H Absolute Nucleated RBC 0.00 Immature Gran % 1 H Nucleated RBC % 0 Puncture Site Right Radial ABG pH 7.40 D ABG pCO2 54 H D ABG pO2 105 D ABG HCO3 34 H ABG O2 Saturation 99 H ABG Base Excess 8 H FiO2 40 Sodium 152 H Potassium 4.0 D Chloride 113 H Carbon Dioxide 31.1 H Anion Gap 8 BUN 76 H Creatinine 1.1 Estim Creat Clear Calc 105.5 eGFR > 60 BUN/Creatinine Ratio 69 H Glucose 104 D Calculated Osmolality 324 H Calcium 8.7 Corrected Calcium 9.5 Phosphorus 3.8 Magnesium 2.3 Total Bilirubin 0.3 AST 36 H ALT 23 Alkaline Phosphatase 53 Total Protein 5.3 L Albumin 3.0 L Globulin 2.3 Albumin/Globulin Ratio 1.3 Impressions Impression: Anemia blood loss Gastric motility disorder Hemorrhagic gastritis Continue current management ABG Interpretation ABG results: 08/22/24 08/23/24 08/25/24 08:37 03:41 04:26 ABG pH 7.36 7.22 L D 7.40 D ABG pCO2 55 H 70 H D 54 H D ABG pO2 70 L 252 H D 105 D ABG HCO3 31 H 28 H 34 H ABG O2 Saturation 94 101 H 99 H ABG Base Excess 5 H 1 8 H Assessment & Plan A&P Narrative # Acute anemia blood loss Agree with the blood transfusion Initial test would be fiberoptic esophagogastroduodenoscopy with possible therapeutic intervention under intravenous moderate sedation if that is negative with a history of hematochezia we will consider doing a fiberoptic colonoscopy after GoLytely prep Other medical problems include # Acute respiratory failure requiring endotracheal intubation # CVA requiring bilateral carotid enterectomy # Vertebral hemangioma requiring radiation therapy # coronary artery disease status post PTCA # pulmonary embolism on Eliquis # Congestive heart failure # primary pulmonary hypertension # Diabetes mellitus type 2 # obesity syndrome Thank you very much for the opportunity to participate in the care of this patient Time Spent With Patient Time: Total time spent is greater than 50% in coordination of care (as documented) at patient's floor/unit and/or counseling patient:
[2024-08-25] MEDS: INSULIN LISPRO (AdmeLOG) 1 UNIT/0.01 ML UNIT SC ×2 (17:45→20:13)
--- NOTE | 2024-08-25 20:35 | PC.NURSE ---
Notifed Dr. Alan of [facility] complaint of chest pain and popping feeling when coughing and patients bp high in 170's systolic. He arrived at bedside to assess patient and ordered lidocaine patch
--- NOTE | 2024-08-25 20:47 | XR_ITS ---
Examination: AP chest single view Technique one AP portable semiupright chest single view Exam date and time: 2024 hrs. Comparison August 23, 2024 Indications: Leg pain today. Findings: The patient has been extubated Moderate CHF Mild to moderate enlargement cardiac contour Prominent vascular congestion Perihilar basilar edema and layering moderate pleural effusions Impression: Moderate CHF
[2024-08-25] MEDS: PREGABALIN 75 MG CAPSULE 150 MG PO (21:37)
[2024-08-25] MEDS: LIDOCAINE 5% 1 PATCH TOP (21:37)
[2024-08-26] VITALS (13 sets, daily range): BP systolic 137–196; BP diastolic 66–102; PULSE 76–82; RESP 10–17; TEMP 36.1–36.7; O2SAT 94–100; BMI 45.7
[2024-08-26] MEDS: HYDROcodone/APAP 10/325 TAB PO ×3 (02:29→15:06)
[2024-08-26] MEDS: CYCLObenzaPRINE 5 MG TABLET 10 MG PO (02:53)
[2024-08-26] MEDS: PREGABALIN 75 MG CAPSULE 150 MG PO ×3 (05:49→21:13)
[2024-08-26] MEDS: PANTOPRAZOLE INJ 40 MG VIAL IVP ×2 (08:00→21:11)
[2024-08-26] MEDS: POLYETHYLENE GLYCOL 17 GM PACKET PO (08:03)
[2024-08-26] MEDS: amLODIPine BESYLATE 5 MG TABLET 10 MG PO (08:04)
[2024-08-26] MEDS: guaiFENesin/P-EPHED TABLET 1 TAB PO ×2 (08:06→21:12)
[2024-08-26] MEDS: INSULIN GLARGINE (Lantus) 5 UNIT/0.05 ML (PER 5 UNITS) 15 UNIT SC (08:08)
[2024-08-26] MEDS: CADEXOMER IODINE GEL 40 GM TUBE TOP (08:15)
[2024-08-26 08:35] LABS: Basophils % (Auto) 0 % (0-2.5); Eosinophils # (Auto) 0.2 Thou/mm3 (0.0-0.5); Eosinophils % (Auto) 3 % (0-10); Hematocrit 24.9 % (41.0-53.0); Immature Granulocytes % (Auto) 1 % (0-0); Immature Granulocytes Auto 0.04 Thou/mm3 (0.00-0.00); Lymphocytes # (Auto) 0.9 Thou/mm3 (1.0-4.8); Lymphocytes % (Auto) 13 % (10-50); Mean Corpuscular HGB Conc 31.7 g/dl (31.0-37.0); Mean Corpuscular Hemoglobin 29.2 pg (25.0-35.0); Mean Corpuscular Volume 92 fL (80-100); Monocytes % (Auto) 14 % (0-12); Neutrophils % (Auto) 69 % (37-80); Nucleated Red Blood Cell % 0 /100 WBC (0); Platelet Count 119 Thou/mm3 (140-440); RDW Standard Deviation 52.1 fL (35.1-43.9); Red Blood Count 2.71 Miln/mm3 (4.50-5.90); White Blood Count 7.2 Thou/mm3 (3.8-10.6)
[2024-08-26 08:37] LABS: Hemoglobin 7.9 g/dL (13.5-16.0)
[2024-08-26 08:43] LABS: Alanine Aminotransferase 19 U/L (10-49); Albumin, Serum 3.1 gm/dL (3.5-5.0); Albumin/Globulin Ratio 1.3 (1.2-2.2); Alkaline Phosphatase 56 U/L (46-116); Anion Gap 5 (7-16); Aspartate Amino Transferase 27 U/L (0-34); BUN/Creatinine Ratio 66 Ratio (12-20); Bilirubin,Total 0.4 mg/dL (0.3-1.2); Blood Urea Nitrogen 53 mg/dL (9-23); Calcium 8.6 mg/dL (8.3-10.6); Calcium (Corrected) 9.3 mg/dL (8.5-10.1); Chloride 111 mMol/L (98-107); Creatinine (Component) 0.8 mg/dL (0.6-1.3); Estimated Creatinine Clearance 141.6 mL/min (>60); Globulin 2.3 gm/dL (2.3-3.5); Glucose 120 mg/dL (74-106); Osmolality,Calculated 311 (275-295); Potassium 3.8 mMol/L (3.4-5.1); Sodium 149 mMol/L (136-145); Total Protein 5.4 gm/dL (5.7-8.2); eGFR > 60 See Note
[2024-08-26] MEDS: carVEDILOL 3.125 MG TABLET 6.25 MG PO ×2 (10:45→17:39)
--- NOTE | 2024-08-26 12:14 | ESPR_ITS ---
Documentation for date of: 08/26/24 Subjective Subjective Interval history: Overnight: Patient complained of chest pain with inspiration. Was given a lidocaine patch with some relief, chest x-rays taken which showed pleural edema and venous congestion. Patient seen examined at bedside. Patient appeared mildly uncomfortable, complained of chest pain with inspiration, had shallow breathing. Chest pain is reproducible with palpation. Patient denies fever, chills, shortness of breath, nausea, vomiting. Net -5 L overnight, will continue to monitor. Scheduled lidocaine patches for chest pain, encouraged use of incentive spirometry, added chest PT. Patient blood pressure remains elevated, added home Coreg. Exam Vital Signs Temp Pulse Resp BP Pulse Ox O2 Del Method O2 Flow Rate 97.0 F 80 17 137/79 H 95 Nasal Cannula 2 08/26/24 08:00 08/26/24 10:45 08/26/24 08:00 08/26/24 10:45 08/26/24 08:00 08/26/24 08:00 08/26/24 08:00 FiO2 40 08/26/24 04:00 Narrative Exam PE: Gen: Well-developed and well-nourished. Obese. HEENT: NCAT, PERRLA, EOMI, MMM, anicteric conjunctivae. CVS: normal S1 and S2. RRR. No M/R/G. Tenderness to palpation. Resp: Diminished lung sounds throughout. No rales, rhonchi, crackles. Abd: soft, non-tender, non-distended. MSK: Good ROM in BUE & BLE. No rash. 4+ pitting edema BLE. 2+ pitting edema bilateral hands, improved. Neuro: CN II-XII grossly intact. Strength 5/5 in BUE & BLE. Alert and oriented x3. Psych: appropriate mood and affect. Objective Labs 08/26/24 08:06 08/26/24 08:06 Labs: Laboratory Results - last 24 hr 08/26/24 08/26/24 08:06 08:06 WBC 7.2 RBC 2.71 L Hgb 7.9 L Hct 24.9 L MCV 92 MCH 29.2 MCHC 31.7 RDW Std Deviation 52.1 H Plt Count 119 L Neut % (Auto) 69 Lymph % (Auto) 13 [place] % (Auto) 14 H Eos % (Auto) 3 Baso % (Auto) 0 Neut # (Auto) 5.0 Lymph # (Auto) 0.9 L [place] # (Auto) 1.0 H Eos # (Auto) 0.2 Baso # (Auto) 0.0 Immature Gran # (Auto) 0.04 H Absolute Nucleated RBC 0.00 Immature Gran % 1 H Nucleated RBC % 0 Sodium Cancelled 149 H Potassium 3.8 Chloride 111 H Carbon Dioxide 33.0 H Anion Gap 5 L BUN 53 H Creatinine 0.8 Estim Creat Clear Calc 141.6 eGFR > 60 BUN/Creatinine Ratio 66 H Glucose 120 H Calculated Osmolality 311 H Calcium 8.6 Corrected Calcium 9.3 Total Bilirubin 0.4 AST 27 ALT 19 Alkaline Phosphatase 56 Total Protein 5.4 L Albumin 3.1 L Globulin 2.3 Albumin/Globulin Ratio 1.3 ABG Interpretation ABG results: 08/22/24 08/23/24 08/25/24 08:37 03:41 04:26 ABG pH 7.36 7.22 L D 7.40 D ABG pCO2 55 H 70 H D 54 H D ABG pO2 70 L 252 H D 105 D ABG HCO3 31 H 28 H 34 H ABG O2 Saturation 94 101 H 99 H ABG Base Excess 5 H 1 8 H Quality Measures Quality Measures VTE prophylaxis Assessment & Plan Assessment Current Active Medications: Generic Name Dose Route Start Last Admin Trade Name Freq PRN Reason Stop Dose Admin Acetaminophen 650 mg 08/22/24 14:29 Acetaminophen 325 Mg Tablet PO 09/21/24 14:28 Q6H PRN Fever >101.5 Hydrocodone Bitart/Acetaminophen 1 tab 08/22/24 16:47 08/26/24 06:35 Hydrocodone/Apap 10/325 Tab PO 08/27/24 16:46 1 tab Q4HR PRN Administration PAIN RATED 7-10 Amlodipine Besylate 10 mg 08/25/24 11:15 08/26/24 08:04 Amlodipine Besylate 5 Mg Tablet PO 09/24/24 11:14 10 mg QDAY RINA Administration Cadexomer Iodine 0 gm 08/23/24 12:45 08/26/24 08:15 Cadexomer Iodine Gel 40 Gm Tube TOP 08/30/24 12:44 1 appln DAILY RINA Administration Carvedilol 6.25 mg 08/26/24 10:00 08/26/24 10:45 Carvedilol 3.125 Mg Tablet PO 09/25/24 09:59 6.25 mg BIDWM RINA Administration Cyclobenzaprine HCl 10 mg 08/22/24 16:50 08/26/24 02:53 Cyclobenzaprine 5 Mg Tablet PO 09/21/24 16:49 10 mg BID PRN Administration MUSCLE SPASMS Dextrose 25 ml 08/22/24 16:13 Dextrose 50%-Water Inj 50 Ml Syringe IV 09/21/24 16:12 Q15MIN PRN BG 50-70 responsive npo pt Dextrose 50 ml 08/22/24 16:13 Dextrose 50%-Water Inj 50 Ml Syringe IV 09/21/24 16:12 Q15MIN PRN BG <50 OR BG <70 & pt unresponsive Glucagon 1 mg 08/22/24 16:13 Glucagon Inj 1 Mg Vial IM Q15MIN PRN BG <70, and no IV access Guaifenesin 1 tab 08/25/24 10:00 08/26/24 08:06 Guaifenesin/P-Ephed Tablet PO 09/24/24 09:59 1 tab BID RINA Administration Insulin Glargine 15 unit 08/23/24 09:30 08/26/24 08:08 Insulin Glargine (Lantus) 5 Unit/0.05 Ml (Per 5 Units) SC 09/22/24 09:29 15 unit QDAY RINA Administration Insulin Human Lispro 0 unit 08/25/24 17:00 08/26/24 07:37 Insulin Lispro (Admelog) 1 Unit/0.01 Ml Unit SC 09/24/24 16:59 Not Given ACHS RINA Protocol Lidocaine 1 patch 08/26/24 11:51 Lidocaine 5% 1 Patch TOP 09/25/24 11:50 UD PRN LOCALIZED PAIN Ondansetron HCl 4 mg 08/22/24 14:29 Ondansetron Inj 2 Mg/Ml Inj 2 Ml IV 09/21/24 14:28 Q6H PRN NAUSEA OR VOMITING Protocol Pantoprazole Sodium 40 mg 08/22/24 21:00 08/26/24 08:00 Pantoprazole Inj 40 Mg Vial IVP 09/21/24 20:59 40 mg Q12HR RINA Administration Polyethylene Glycol 17 gm 08/26/24 09:00 08/26/24 08:03 Polyethylene Glycol 17 Gm Packet PO 09/25/24 08:59 17 gm QDAY RINA Administration Pregabalin 150 mg 08/22/24 22:00 08/26/24 05:49 Pregabalin 75 Mg Capsule PO 09/21/24 21:59 150 mg TID RINA Administration Sodium Chloride 3 ml 08/24/24 14:41 08/24/24 14:46 Sodium Chloride Rt Radha 0.9% 3 Ml Nebu INH 09/23/24 14:40 3 ml PRN PRN Administration SOLN Plan 54-year-old male with a past medical history of DM, CAD status post stents, HFpEF, hypertension, CO2 retainer from OHS/CAROLYN noncompliant on CPAP who presented to the ED on 08/22/2024 with shortness of breath and dizziness. Found to have acute blood loss anemia and admitted for GI evaluation. #Acute on chronic hypoxic respiratory failure, improved #CAROLYN and OHS #S/P extubation #Right upper lobe pneumonia On admission, the patient did have some shortness of breath. He was requiring about 4 L of oxygen which was more than 2 L which he uses at home. Chest x-ray suspicious forp pneumonia. The patient was started on IV ceftriaxone and doxycycline. Patient was started on BiPAP received quetiapine as well as 2 rounds of Ativan for agitation, CODE BLUE was called. Patient began to be mechanically ventilated, was extubated and transition to BiPAP. ABG showed pH of 7.4 and CO2 54, patient transition to nasal cannula. Patient downgraded to floors for further management. Antibiotics were discontinued, negative blood cultures, afebrile. The patient has a history of CAROLYN and OHS, uses 2 L of oxygen at home as well as a CPAP at night. Patient having shallow breathing due to chest pain. Lidocaine patch added, chest PT ordered. -Keep saturations between 88 to 92% -BIPAP as needed, HS -Supplemental O2, titrate as needed. -DC antibiotics -Mupirocin for MRSA nares -CPT with Acapella device #History of HFpEF 55 to 60% #Cardiac arrest status post ROSC The patient had a CODE BLUE called after heart rate was low in the 30s and there was no electrical activity. ROSC obtained after about 8 minutes of chest compressions and 2 rounds of epinephrine. EKG done after was benign no acute ST or T changes. Troponin-negative. Patient has a history of HFpEF and was given 1 dose of Bumex 2 mg on admission. Echo showed left ventricle ejection fraction 55 to 60% with diastolic dysfunction II. -Strict I&O's -Home Coreg 6.25 mg p.o. twice daily -Lidocaine patch scheduled for post compression chest pain #Acute blood loss anemia-stable #GI bleed #History of cirrhosis stable On admission, the patient reported dizziness and shortness of breath. Initial labs significant for hemoglobin of 4.3, he also reported multiple episodes of dark stool and some bright red blood per rectum. 3 units of PRBCs were ordered and patient was being transfused. Repeat H&H returned for Hgb of 5.9. 08/24/2024: Hgb today at 7.7 after 6 units of pRBCs. EGD did not show any active bleeding. -Continue monitoring H&H -Continue IV Protonix -GI consulted, appreciate recommendations -Patient to get capsule endoscopy outpatient #Hypertension Patient does have a history of hypertension. BP meds initially held. Blood pressure consistently stayed 160?170. Amlodipine initiated. Resumed home Coreg -Amlodipine 10 mg daily -Coreg 6.25 mg p.o. twice daily #Hypernatremia Sodium today at 152. Patient had significant diuresis overnight, close to 3 L urine output, due to postextubation redistribution. Patient received IV D5W, encouraged oral hydration. Hyponatremia improving, down to 149 -Continue to monitor #Diabetes Patient has a history of diabetes and is on insulin 30 units twice daily as well as Coreg and Januvia. Last A1c done was 6.8. Blood glucose this morning at 247. 08/24/2024: Blood glucose at 156 this morning. A1c was ordered but canceled, to be completed at [facility], likely to be >14 -Continue SC Lantus 15 units -Insulin sliding scale -Keep blood glucose between 140-180 -Hypoglycemic protocols in place #Stage III pressure ulcer Patient has a history of ulcers, on examination he has a stage III pressure ulcer in the sacral region. -Wound care referral #Acute kidney injury, resolved Likely in the setting of hypovolemia/hemorrhage. Admitting BUN and creatinine elevated, creatinine at 1.5, baseline of about 0.8. Patient received LR at about 75 cc/h Creatinine still at 1.6. 08/24/2024: BUN still elevated at 108 normal creatinine. This could be either a consequence of steroids or the GI bleed. 08/26/2023: BUN 76 today, creatinine at 1.1. -Continue monitoring renal panel DVT prophylaxis: SCDs GI prophylaxis: Protonix Diet: Carb consistent low Lines: Peripheral IV, Wright cath Code status: Full code Plan of care discussed with attending Dr. Askew. Enrique Justice MD PGY?1 Attending Provider Attestation/Addendum Dianna Camara, DO, attest that I was physically present for the [place] portions of the service and evaluated the patient with the resident and I reviewed and discussed the case with the resident and agree with the resident's findings and plans of care as documented above Patient seen and evaluated this AM. He states he is doing well and has some rib pain. Patient continues to appear weak. Encouraged patient to take deep breaths and use IS. Will place lidocaine patch for rib pain so that patient can use IS more often. Will hold off on diuresis at this time. BUN and Hypernatremia appears improved. Patient had 5L urine output overnight. He is currently on 2L/NC. Patient was compliant with BiPap overnight. Encouraged to work with PT and continue with current management.
--- NOTE | 2024-08-26 14:18 | ESPR_ITS ---
Documentation for date of: 08/26/24 Subjective Subjective Interval history: Patient evaluated No signs of any active bleeding Hemoglobin hematocrit 7.9 and 24.9 Exam Vital Signs Temp Pulse Resp BP Pulse Ox O2 Del Method O2 Flow Rate 97.0 F 79 17 154/85 H 97 Nasal Cannula 2 08/26/24 12:00 08/26/24 12:00 08/26/24 12:00 08/26/24 12:00 08/26/24 12:00 08/26/24 12:00 08/26/24 12:00 FiO2 40 08/26/24 04:00 Objective Labs 08/26/24 08:06 08/26/24 08:06 Labs: Laboratory Results - last 24 hr 08/26/24 08/26/24 08:06 08:06 WBC 7.2 RBC 2.71 L Hgb 7.9 L Hct 24.9 L MCV 92 MCH 29.2 MCHC 31.7 RDW Std Deviation 52.1 H Plt Count 119 L Neut % (Auto) 69 Lymph % (Auto) 13 [place] % (Auto) 14 H Eos % (Auto) 3 Baso % (Auto) 0 Neut # (Auto) 5.0 Lymph # (Auto) 0.9 L [place] # (Auto) 1.0 H Eos # (Auto) 0.2 Baso # (Auto) 0.0 Immature Gran # (Auto) 0.04 H Absolute Nucleated RBC 0.00 Immature Gran % 1 H Nucleated RBC % 0 Sodium Cancelled 149 H Potassium 3.8 Chloride 111 H Carbon Dioxide 33.0 H Anion Gap 5 L BUN 53 H Creatinine 0.8 Estim Creat Clear Calc 141.6 eGFR > 60 BUN/Creatinine Ratio 66 H Glucose 120 H Calculated Osmolality 311 H Calcium 8.6 Corrected Calcium 9.3 Total Bilirubin 0.4 AST 27 ALT 19 Alkaline Phosphatase 56 Total Protein 5.4 L Albumin 3.1 L Globulin 2.3 Albumin/Globulin Ratio 1.3 Impressions Impression: # Gastritis # Gastric motility disorder # Anemia blood loss Outpatient capsule endoscopy ABG Interpretation ABG results: 08/22/24 08/23/24 08/25/24 08:37 03:41 04:26 ABG pH 7.36 7.22 L D 7.40 D ABG pCO2 55 H 70 H D 54 H D ABG pO2 70 L 252 H D 105 D ABG HCO3 31 H 28 H 34 H ABG O2 Saturation 94 101 H 99 H ABG Base Excess 5 H 1 8 H Assessment & Plan A&P Narrative # Acute anemia blood loss Agree with the blood transfusion Initial test would be fiberoptic esophagogastroduodenoscopy with possible therapeutic intervention under intravenous moderate sedation if that is negative with a history of hematochezia we will consider doing a fiberoptic colonoscopy after GoLytely prep Other medical problems include # Acute respiratory failure requiring endotracheal intubation # CVA requiring bilateral carotid enterectomy # Vertebral hemangioma requiring radiation therapy # coronary artery disease status post PTCA # pulmonary embolism on Eliquis # Congestive heart failure # primary pulmonary hypertension # Diabetes mellitus type 2 # obesity syndrome Thank you very much for the opportunity to participate in the care of this patient Time Spent With Patient Time: Total time spent is greater than 50% in coordination of care (as documented) at patient's floor/unit and/or counseling patient:
[2024-08-26] MEDS: INSULIN LISPRO (AdmeLOG) 1 UNIT/0.01 ML UNIT SC (17:39)
--- NOTE | 2024-08-26 19:26 | PC.NURSE ---
patients right thumb iv became occluded upon removal patient had skin tear under iv device, allyven placed to protect. additional wound care orders for further evaluation
[2024-08-27] VITALS (19 sets, daily range): BP systolic 143–171; BP diastolic 68–88; PULSE 72–88; RESP 12–20; TEMP 35.9–36.8; O2SAT 95–100; BMI 45.7
[2024-08-27] MEDS: HYDROcodone/APAP 10/325 TAB PO ×2 (00:23→05:08)
[2024-08-27] MEDS: CYCLObenzaPRINE 5 MG TABLET 10 MG PO (00:27)
[2024-08-27] MEDS: LIDOCAINE 5% 1 PATCH TOP (01:06)
[2024-08-27] MEDS: MORPHINE SULF INJ 10 MG/ML VIAL 2 MG IVP (01:06)
[2024-08-27] MEDS: PREGABALIN 75 MG CAPSULE 150 MG PO ×3 (05:32→21:34)
[2024-08-27 06:10] LABS: Basophils % (Auto) 0 % (0-2.5); Eosinophils # (Auto) 0.2 Thou/mm3 (0.0-0.5); Eosinophils % (Auto) 2 % (0-10); Hematocrit 24.8 % (41.0-53.0); Immature Granulocytes % (Auto) 1 % (0-0); Immature Granulocytes Auto 0.05 Thou/mm3 (0.00-0.00); Lymphocytes # (Auto) 0.7 Thou/mm3 (1.0-4.8); Lymphocytes % (Auto) 8 % (10-50); Mean Corpuscular HGB Conc 31.5 g/dl (31.0-37.0); Mean Corpuscular Hemoglobin 28.9 pg (25.0-35.0); Mean Corpuscular Volume 92 fL (80-100); Monocytes # (Auto) 0.8 Thou/mm3 (0.0-0.8); Monocytes % (Auto) 9 % (0-12); Neutrophils # (Auto) 6.9 Thou/mm3 (1.8-7.7); Neutrophils % (Auto) 80 % (37-80); Nucleated Red Blood Cell % 0 /100 WBC (0); Platelet Count 127 Thou/mm3 (140-440); RDW Standard Deviation 51.5 fL (35.1-43.9); White Blood Count 8.7 Thou/mm3 (3.8-10.6)
[2024-08-27 06:17] LABS: Hemoglobin 7.8 g/dL (13.5-16.0)
[2024-08-27 06:35] LABS: Alanine Aminotransferase 27 U/L (10-49); Albumin, Serum 3.1 gm/dL (3.5-5.0); Albumin/Globulin Ratio 1.3 (1.2-2.2); Alkaline Phosphatase 99 U/L (46-116); Anion Gap 6 (7-16); Aspartate Amino Transferase 49 U/L (0-34); BUN/Creatinine Ratio 51 Ratio (12-20); Bilirubin,Total 0.4 mg/dL (0.3-1.2); Blood Urea Nitrogen 46 mg/dL (9-23); Calcium 8.5 mg/dL (8.3-10.6); Calcium (Corrected) 9.2 mg/dL (8.5-10.1); Carbon Dioxide 31.9 mMol/L (20.0-31.0); Chloride 110 mMol/L (98-107); Creatinine (Component) 0.9 mg/dL (0.6-1.3); Estimated Creatinine Clearance 125.9 mL/min (>60); Globulin 2.4 gm/dL (2.3-3.5); Glucose 136 mg/dL (74-106); Osmolality,Calculated 308 (275-295); Sodium 148 mMol/L (136-145); Total Protein 5.5 gm/dL (5.7-8.2); eGFR > 60 See Note
[2024-08-27] MEDS: carVEDILOL 3.125 MG TABLET 6.25 MG PO ×2 (07:23→16:49)
[2024-08-27] MEDS: amLODIPine BESYLATE 5 MG TABLET 10 MG PO (08:58)
[2024-08-27] MEDS: guaiFENesin/P-EPHED TABLET 1 TAB PO ×2 (08:59→21:34)
[2024-08-27] MEDS: INSULIN GLARGINE (Lantus) 5 UNIT/0.05 ML (PER 5 UNITS) 15 UNIT SC (08:59)
[2024-08-27] MEDS: PANTOPRAZOLE INJ 40 MG VIAL IVP ×2 (08:59→21:35)
[2024-08-27] MEDS: CADEXOMER IODINE GEL 40 GM TUBE TOP (08:59)
[2024-08-27] MEDS: POLYETHYLENE GLYCOL 17 GM PACKET PO (09:00)
[2024-08-27 09:24] LABS: Sodium 148 mMol/L (136-145)
[2024-08-27] MEDS: BUMETANIDE INJ 0.25 MG/ML VIAL 4 ML 2 MG IVP (10:46)
[2024-08-27] MEDS: MORPHINE SULF INJ 10 MG/ML VIAL IVP ×2 (11:04→18:37)
--- NOTE | 2024-08-27 12:00 | PD.RESPRO ---
Documentation for date of: 08/27/24 Subjective Subjective Interval history: Patient seen and examined at bedside. Patient was complaining of chest pain overnight, and given 2 mg of morphine. Patient continues to have similar chest pain intermittently, and will give patient morphine 1 mg Q4 and Bumex 2 mg x 1 as needed and encourage patient to use incentive spirometer and work with physical therapy to avoid atelectasis. Patient otherwise is hemodynamically stable, requiring only 1 L nasal cannula. Sputum culture came back positive for Staphylococcus lugdunensis 2+. When patient is more stable, can go back to SN[facility]. Goal is to wean IV pain medications and help with his SOB. Exam Vital Signs Temp Pulse Resp BP Pulse Ox O2 Del Method O2 Flow Rate 97.2 F 78 16 143/84 H 99 Nasal Cannula 3 08/27/24 08:00 08/27/24 10:46 08/27/24 08:14 08/27/24 10:46 08/27/24 08:14 08/27/24 08:00 08/27/24 08:14 FiO2 40 08/27/24 01:44 Narrative Exam General Appearance: Pt in mild acute distress, laying in bed. Cooperative, alert and oriented. Morbidly obese. HEENT: NC/AT, no scleral icterus, no conjunctival pallor, MMM Lungs: CTAB, no wheezes, Rales or crackles appreciated CVS: RRR, S1/S2 heard, no murmurs or rubs appreciated, tender to palpation in sternal region ABD: Soft, non-tender, non-distended, BS + in all 4 quadrants EXT: Prominent pitting edema especially in bilateral lower extremities, 3+, 2+ pitting edema in bilateral upper extremities, pedal pulses felt bilaterally SKIN: Skin exam normal without any rashes. Neuro: A&O x 3. No gross neurological deficits. Motor and sensory grossly intact in B/L UL and LL. Psych: Appropriate mood and affect Objective Labs 08/28/24 05:28 08/28/24 05:28 Labs: Laboratory Results - last 24 hr 08/27/24 08/27/24 05:43 08:08 WBC 8.7 RBC 2.70 L Hgb 7.8 L Hct 24.8 L MCV 92 MCH 28.9 MCHC 31.5 RDW Std Deviation 51.5 H Plt Count 127 L Neut % (Auto) 80 Lymph % (Auto) 8 L [place] % (Auto) 9 Eos % (Auto) 2 Baso % (Auto) 0 Neut # (Auto) 6.9 Lymph # (Auto) 0.7 L [place] # (Auto) 0.8 Eos # (Auto) 0.2 Baso # (Auto) 0.0 Immature Gran # (Auto) 0.05 H Absolute Nucleated RBC 0.00 Immature Gran % 1 H Nucleated RBC % 0 Sodium 148 H 148 H Potassium 4.0 Chloride 110 H Carbon Dioxide 31.9 H Anion Gap 6 L BUN 46 H Creatinine 0.9 Estim Creat Clear Calc 125.9 eGFR > 60 BUN/Creatinine Ratio 51 H Glucose 136 H Calculated Osmolality 308 H Calcium 8.5 Corrected Calcium 9.2 Total Bilirubin 0.4 AST 49 H ALT 27 Alkaline Phosphatase 99 D Total Protein 5.5 L Albumin 3.1 L Globulin 2.4 Albumin/Globulin Ratio 1.3 ABG Interpretation ABG results: 08/22/24 08/23/24 08/25/24 08:37 03:41 04:26 ABG pH 7.36 7.22 L D 7.40 D ABG pCO2 55 H 70 H D 54 H D ABG pO2 70 L 252 H D 105 D ABG HCO3 31 H 28 H 34 H ABG O2 Saturation 94 101 H 99 H ABG Base Excess 5 H 1 8 H Quality Measures Quality Measures VTE prophylaxis Assessment & Plan Assessment Current Active Medications: Generic Name Dose Route Start Last Admin Trade Name Freq PRN Reason Stop Dose Admin Acetaminophen 650 mg 08/22/24 14:29 Acetaminophen 325 Mg Tablet PO 09/21/24 14:28 Q6H PRN Fever >101.5 Hydrocodone Bitart/Acetaminophen 1 tab 08/22/24 16:47 08/27/24 05:08 Hydrocodone/Apap 10/325 Tab PO 08/27/24 16:46 1 tab Q4HR PRN Administration PAIN RATED 7-10 Amlodipine Besylate 10 mg 08/25/24 11:15 08/27/24 08:58 Amlodipine Besylate 5 Mg Tablet PO 09/24/24 11:14 10 mg QDAY RINA Administration Bumetanide 2 mg 08/27/24 10:15 08/27/24 10:46 Bumetanide Inj 0.25 Mg/Ml Vial 4 Ml IVP 09/26/24 10:14 2 mg QDAY RINA Administration Cadexomer Iodine 0 gm 08/23/24 12:45 08/27/24 08:59 Cadexomer Iodine Gel 40 Gm Tube TOP 08/30/24 12:44 1 appln DAILY RINA Administration Carvedilol 6.25 mg 08/26/24 10:00 08/27/24 07:23 Carvedilol 3.125 Mg Tablet PO 09/25/24 09:59 6.25 mg BIDWM RINA Administration Cyclobenzaprine HCl 10 mg 08/22/24 16:50 08/27/24 00:27 Cyclobenzaprine 5 Mg Tablet PO 09/21/24 16:49 10 mg BID PRN Administration MUSCLE SPASMS Dextrose 25 ml 08/22/24 16:13 Dextrose 50%-Water Inj 50 Ml Syringe IV 09/21/24 16:12 Q15MIN PRN BG 50-70 responsive npo pt Dextrose 50 ml 08/22/24 16:13 Dextrose 50%-Water Inj 50 Ml Syringe IV 09/21/24 16:12 Q15MIN PRN BG <50 OR BG <70 & pt unresponsive Glucagon 1 mg 08/22/24 16:13 Glucagon Inj 1 Mg Vial IM Q15MIN PRN BG <70, and no IV access Guaifenesin 1 tab 08/25/24 10:00 08/27/24 08:59 Guaifenesin/P-Ephed Tablet PO 09/24/24 09:59 1 tab BID RINA Administration Insulin Glargine 15 unit 08/23/24 09:30 08/27/24 08:59 Insulin Glargine (Lantus) 5 Unit/0.05 Ml (Per 5 Units) SC 09/22/24 09:29 15 unit QDAY RINA Administration Insulin Human Lispro 0 unit 08/25/24 17:00 08/27/24 07:32 Insulin Lispro (Admelog) 1 Unit/0.01 Ml Unit SC 09/24/24 16:59 Not Given ACHS [facility] Protocol Lidocaine 1 patch 08/26/24 11:51 08/27/24 01:06 Lidocaine 5% 1 Patch TOP 09/25/24 11:50 1 patch UD PRN Administration LOCALIZED PAIN Morphine Sulfate 1 mg 08/27/24 10:10 08/27/24 11:04 Morphine Sulf Inj 10 Mg/Ml Vial IVP 09/01/24 10:09 1 mg Q4HR PRN Administration PAIN Ondansetron HCl 4 mg 08/22/24 14:29 Ondansetron Inj 2 Mg/Ml Inj 2 Ml IV 09/21/24 14:28 Q6H PRN NAUSEA OR VOMITING Protocol Pantoprazole Sodium 40 mg 08/22/24 21:00 08/27/24 08:59 Pantoprazole Inj 40 Mg Vial IVP 09/21/24 20:59 40 mg Q12HR RINA Administration Polyethylene Glycol 17 gm 08/26/24 09:00 08/27/24 09:00 Polyethylene Glycol 17 Gm Packet PO 09/25/24 08:59 17 gm QDAY RINA Administration Pregabalin 150 mg 08/22/24 22:00 08/27/24 05:32 Pregabalin 75 Mg Capsule PO 09/21/24 21:59 150 mg TID RINA Administration Sodium Chloride 3 ml 08/24/24 14:41 08/24/24 14:46 Sodium Chloride Rt Radha 0.9% 3 Ml Nebu INH 09/23/24 14:40 3 ml PRN PRN Administration SOLN Plan 54-year-old male with a past medical history of DM, CAD status post stents, HFpEF, hypertension, CO2 retainer from OHS/CAROLYN noncompliant on CPAP who presented to the ED on 08/22/2024 with shortness of breath and dizziness. Found to have acute blood loss anemia and admitted for GI evaluation. #Acute on chronic hypoxic respiratory failure, improved #CAROLYN and OHS #S/P extubation #Right upper lobe pneumonia On admission, the patient did have some shortness of breath. He was requiring about 4 L of oxygen which was more than 2 L which he uses at home. Chest x-ray suspicious forp pneumonia. The patient was started on IV ceftriaxone and doxycycline. Patient was started on BiPAP received quetiapine as well as 2 rounds of Ativan for agitation, CODE BLUE was called. Patient began to be mechanically ventilated, was extubated and transition to BiPAP. ABG showed pH of 7.4 and CO2 54, patient transition to nasal cannula. Patient downgraded to floors for further management. Antibiotics were discontinued, negative blood cultures, afebrile. The patient has a history of CAROLYN and OHS, uses 2 L of oxygen at home as well as a CPAP at night. Patient having shallow breathing due to chest pain. Lidocaine patch added, chest PT ordered. 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 -DC antibiotics -Mupirocin for MRSA nares -CPT with Acapella device -Bumex 2mg x 1 #History of HFpEF 55 to 60% #Cardiac arrest status post ROSC The patient had a CODE BLUE called after heart rate was low in the 30s and there was no electrical activity. ROSC obtained after about 8 minutes of chest compressions and 2 rounds of epinephrine. EKG done after was benign no acute ST or T changes. Troponin-negative. Patient has a history of HFpEF and was given 1 dose of Bumex 2 mg on admission. Echo showed left ventricle ejection fraction 55 to 60% with diastolic dysfunction II. -Strict I&O's -Home Coreg 6.25 mg p.o. twice daily -Lidocaine patch and Morphine 1mg Q4HR scheduled for post compression chest pain #Acute blood loss anemia-stable #GI bleed #History of cirrhosis stable On admission, the patient reported dizziness and shortness of breath. Initial labs significant for hemoglobin of 4.3, he also reported multiple episodes of dark stool and some bright red blood per rectum. 3 units of PRBCs were ordered and patient was being transfused. Repeat H&H returned for Hgb of 5.9. 08/24/2024: Hgb today at 7.7 after 6 units of pRBCs. EGD did not show any active bleeding. -Continue monitoring H&H -Continue IV Protonix -GI consulted, appreciate recommendations -Patient to get capsule endoscopy outpatient #Hypertension Patient does have a history of hypertension. BP meds initially held. Blood pressure consistently stayed 160?170. Amlodipine initiated. Resumed home Coreg -Amlodipine 10 mg daily -Coreg 6.25 mg p.o. twice daily #Hypernatremia Sodium today at 152. Patient had significant diuresis overnight, close to 3 L urine output, due to postextubation redistribution. Patient received IV D5W, encouraged oral hydration. Hyponatremia improving, down to 148 -Continue to monitor #Diabetes Patient has a history of diabetes and is on insulin 30 units twice daily as well as Coreg and Januvia. Last A1c done was 6.8. Blood glucose this morning at 247. 08/24/2024: Blood glucose at 156 this morning. A1c was ordered but canceled, to be completed at [facility], likely to be >14 -Continue SC Lantus 15 units -Insulin sliding scale -Keep blood glucose between 140-180 -Hypoglycemic protocols in place #Stage III pressure ulcer Patient has a history of ulcers, on examination he has a stage III pressure ulcer in the sacral region. -Wound care referral #Acute kidney injury, resolved Likely in the setting of hypovolemia/hemorrhage. Admitting BUN and creatinine elevated, creatinine at 1.5, baseline of about 0.8. Patient received LR at about 75 cc/h Creatinine still at 1.6. 08/24/2024: BUN still elevated at 108 normal creatinine. This could be either a consequence of steroids or the GI bleed. 08/26/2023: BUN 76 today, creatinine at 1.1. -Continue monitoring renal panel DVT prophylaxis: SCDs GI prophylaxis: Protonix Diet: Carb consistent low Lines: Peripheral IV, Wright cath Code status: Full code Plan of care discussed with attending Dr. Askew. Jaquelin Sparrow MD PGY?2 Attending Provider Attestation/Addendum Jax, Dianna Askew, DO, attest that I was physically present for the kirkpatrick portions of the service and evaluated the patient with the resident and I reviewed and discussed the case with the resident and agree with the resident's findings and plans of care as documented above Patient seen and eval this a.m. He complains of pain in his chest due to broken ribs. Pain improved with morphine. Encourage patient to take deep breaths when he receives his breathing treatments and use incentive spirometer, fourth which he is agreeable to. Lungs are clear to auscultation bilaterally. Encourage patient to work with physical therapy today. He remains on 2 L nasal cannula at this time. No changes in mental status otherwise. Continue current management.
[2024-08-27] MEDS: INSULIN LISPRO (AdmeLOG) 1 UNIT/0.01 ML UNIT SC (12:13)
--- NOTE | 2024-08-27 16:27 | ESPR_ITS ---
Documentation for date of: 08/27/24 Subjective Subjective Interval history: Patient evaluated hemoglobin hematocrit 7.8 and 44.8 Exam Vital Signs Temp Pulse Resp BP Pulse Ox O2 Del Method O2 Flow Rate 96.7 F L 72 16 169/88 H 96 Nasal Cannula 1 08/27/24 12:26 08/27/24 12:26 08/27/24 12:26 08/27/24 12:26 08/27/24 12:26 08/27/24 12:26 08/27/24 12:26 FiO2 40 08/27/24 01:44 Objective Labs 08/27/24 05:43 08/27/24 08:08 Labs: Laboratory Results - last 24 hr 08/27/24 08/27/24 05:43 08:08 WBC 8.7 RBC 2.70 L Hgb 7.8 L Hct 24.8 L MCV 92 MCH 28.9 MCHC 31.5 RDW Std Deviation 51.5 H Plt Count 127 L Neut % (Auto) 80 Lymph % (Auto) 8 L [place] % (Auto) 9 Eos % (Auto) 2 Baso % (Auto) 0 Neut # (Auto) 6.9 Lymph # (Auto) 0.7 L [place] # (Auto) 0.8 Eos # (Auto) 0.2 Baso # (Auto) 0.0 Immature Gran # (Auto) 0.05 H Absolute Nucleated RBC 0.00 Immature Gran % 1 H Nucleated RBC % 0 Sodium 148 H 148 H Potassium 4.0 Chloride 110 H Carbon Dioxide 31.9 H Anion Gap 6 L BUN 46 H Creatinine 0.9 Estim Creat Clear Calc 125.9 eGFR > 60 BUN/Creatinine Ratio 51 H Glucose 136 H Calculated Osmolality 308 H Calcium 8.5 Corrected Calcium 9.2 Total Bilirubin 0.4 AST 49 H ALT 27 Alkaline Phosphatase 99 D Total Protein 5.5 L Albumin 3.1 L Globulin 2.4 Albumin/Globulin Ratio 1.3 Impressions Impression: # Gastritis # Gastric motility disorder Continue to monitor CBC Outpatient capsule endoscopy ABG Interpretation ABG results: 08/22/24 08/23/24 08/25/24 08:37 03:41 04:26 ABG pH 7.36 7.22 L D 7.40 D ABG pCO2 55 H 70 H D 54 H D ABG pO2 70 L 252 H D 105 D ABG HCO3 31 H 28 H 34 H ABG O2 Saturation 94 101 H 99 H ABG Base Excess 5 H 1 8 H Assessment & Plan A&P Narrative # Acute anemia blood loss Agree with the blood transfusion Initial test would be fiberoptic esophagogastroduodenoscopy with possible therapeutic intervention under intravenous moderate sedation if that is negative with a history of hematochezia we will consider doing a fiberoptic colonoscopy after GoLytely prep Other medical problems include # Acute respiratory failure requiring endotracheal intubation # CVA requiring bilateral carotid enterectomy # Vertebral hemangioma requiring radiation therapy # coronary artery disease status post PTCA # pulmonary embolism on Eliquis # Congestive heart failure # primary pulmonary hypertension # Diabetes mellitus type 2 # obesity syndrome Thank you very much for the opportunity to participate in the care of this patient Time Spent With Patient Time: Total time spent is greater than 50% in coordination of care (as documented) at patient's floor/unit and/or counseling patient:
[2024-08-28] VITALS (15 sets, daily range): BP systolic 137–168; BP diastolic 72–84; PULSE 75–79; RESP 12–18; TEMP 36.2–36.7; O2SAT 95–98; BMI 11.0
[2024-08-28] MEDS: MORPHINE SULF INJ 10 MG/ML VIAL IVP ×5 (00:27→20:21)
[2024-08-28] MEDS: CYCLObenzaPRINE 5 MG TABLET 10 MG PO (05:44)
[2024-08-28] MEDS: PREGABALIN 75 MG CAPSULE 150 MG PO ×3 (05:44→21:10)
[2024-08-28 06:19] LABS: Basophils % (Auto) 0 % (0-2.5); Eosinophils # (Auto) 0.5 Thou/mm3 (0.0-0.5); Eosinophils % (Auto) 7 % (0-10); Hematocrit 23.5 % (41.0-53.0); Immature Granulocytes % (Auto) 0 % (0-0); Immature Granulocytes Auto 0.03 Thou/mm3 (0.00-0.00); Lymphocytes # (Auto) 1.1 Thou/mm3 (1.0-4.8); Lymphocytes % (Auto) 16 % (10-50); Mean Corpuscular HGB Conc 31.5 g/dl (31.0-37.0); Mean Corpuscular Hemoglobin 28.9 pg (25.0-35.0); Mean Corpuscular Volume 92 fL (80-100); Monocytes # (Auto) 0.7 Thou/mm3 (0.0-0.8); Monocytes % (Auto) 10 % (0-12); Neutrophils # (Auto) 4.6 Thou/mm3 (1.8-7.7); Neutrophils % (Auto) 66 % (37-80); Nucleated Red Blood Cell % 0 /100 WBC (0); Platelet Count 121 Thou/mm3 (140-440); RDW Standard Deviation 51.2 fL (35.1-43.9); Red Blood Count 2.56 Miln/mm3 (4.50-5.90); White Blood Count 6.9 Thou/mm3 (3.8-10.6)
[2024-08-28 06:34] LABS: Hemoglobin 7.4 g/dL (13.5-16.0)
[2024-08-28 06:39] LABS: Alanine Aminotransferase 18 U/L (10-49); Albumin/Globulin Ratio 1.3 (1.2-2.2); Alkaline Phosphatase 82 U/L (46-116); Anion Gap 7 (7-16); Aspartate Amino Transferase 28 U/L (0-34); BUN/Creatinine Ratio 46 Ratio (12-20); Bilirubin,Total 0.2 mg/dL (0.3-1.2); Blood Urea Nitrogen 37 mg/dL (9-23); Calcium (Corrected) 9.8 mg/dL (8.5-10.1); Carbon Dioxide 34.2 mMol/L (20.0-31.0); Chloride 110 mMol/L (98-107); Creatinine (Component) 0.8 mg/dL (0.6-1.3); Estimated Creatinine Clearance 141.6 mL/min (>60); Globulin 2.3 gm/dL (2.3-3.5); Glucose 138 mg/dL (74-106); Osmolality,Calculated 310 (275-295); Potassium 3.8 mMol/L (3.4-5.1); Sodium 151 mMol/L (136-145); Total Protein 5.3 gm/dL (5.7-8.2); eGFR > 60 See Note
[2024-08-28] MEDS: POLYETHYLENE GLYCOL 17 GM PACKET PO (09:28)
[2024-08-28] MEDS: PANTOPRAZOLE INJ 40 MG VIAL IVP ×2 (09:28→20:21)
[2024-08-28] MEDS: carVEDILOL 3.125 MG TABLET 6.25 MG PO ×2 (09:29→17:15)
[2024-08-28] MEDS: amLODIPine BESYLATE 5 MG TABLET 10 MG PO (09:30)
[2024-08-28] MEDS: guaiFENesin/P-EPHED TABLET 1 TAB PO ×2 (09:30→20:22)
[2024-08-28] MEDS: BUMETANIDE INJ 0.25 MG/ML VIAL 4 ML 2 MG IVP (09:31)
[2024-08-28] MEDS: INSULIN GLARGINE (Lantus) 5 UNIT/0.05 ML (PER 5 UNITS) 15 UNIT SC (09:32)
[2024-08-28] MEDS: CADEXOMER IODINE GEL 40 GM TUBE TOP (09:44)
[2024-08-28 10:17] LABS: Sodium 148 mMol/L (136-145)
--- NOTE | 2024-08-28 11:15 | PC.SS ---
Rounding: Taper down pain meds, and work with PT
[2024-08-28] MEDS: INSULIN LISPRO (AdmeLOG) 1 UNIT/0.01 ML UNIT SC ×3 (12:24→21:15)
--- NOTE | 2024-08-28 15:37 | ESPR_ITS ---
<Statement entered by Lisa Berg MD - 08/28/24 18:18> I discussed with and supervised the collector of internal revenue physician who took care of this patient. I personally saw and examined the patient and discussed the assessment and plan with the entire medicine team, including my attending Dr. Askew, I agree with the assessment and plan as documented below Patient seen and examined at bedside today. Labs and imaging reviewed. No overnight acute events This morning bedside patient stated that still have a lot of pain on his ribs and back we will continue with morphine as needed and lidocaine patch for pain control. Patient sodium has been increasing to 151 we will encourage water intake, physical therapy was ordered, patient has been presenting metabolic alkalosis possibly secondary to aggressive diuresis when he was in ICU versus shallow breathing due to pain in the setting of rib fracture. Pending physical therapy evaluation and authorization for SNF placement intake. Lisa Berg MD PGY-3 Disclaimer: Despite multiple revisions, due to the dictation software being used, the document bellow may not be free of grammatical errors including phonetic/typographic errors. However, this does not deter from our commitment to providing health care in the patient's best interest in mind. Documentation for date of: 08/28/24 Subjective Subjective Interval history: No overnight events. Patient seen examined at bedside. Patient resting comfortably, significant improvement in edema. No complaints of pleuritic chest pain, mild shortness of breath. Denies fever, chills, nausea, vomiting, abdominal pain. Patient was encouraged to continue use of IS. Continue PT, likely discharg to rehab facility. Continue pain management. Consult restriction for hypernatremia. Exam Vital Signs Temp Pulse Resp BP Pulse Ox O2 Del Method O2 Flow Rate 97.8 F 78 16 168/84 H 96 Nasal Cannula 2 08/28/24 12:00 08/28/24 12:00 08/28/24 12:00 08/28/24 12:00 08/28/24 12:00 08/28/24 12:00 08/28/24 12:00 FiO2 40 08/28/24 12:00 Narrative Exam PE: Gen: Well-developed and well-nourished. Obese. HEENT: NCAT, PERRLA, EOMI, MMM, anicteric conjunctivae. CVS: normal S1 and S2. RRR. No M/R/G. Tenderness to palpation. Resp: Diminished lung sounds throughout. No rales, rhonchi, crackles. Abd: soft, non-tender, non-distended. MSK: Good ROM in BUE & BLE. No rash. 2+ pitting edema BLE. Neuro: CN II-XII grossly intact. Strength 5/5 in BUE & BLE. Alert and oriented x3. Psych: appropriate mood and affect. Objective Labs 08/29/24 05:36 08/29/24 09:11 Labs: Laboratory Results - last 24 hr 08/28/24 08/28/24 05:28 09:35 WBC 6.9 RBC 2.56 L Hgb 7.4 L Hct 23.5 L MCV 92 MCH 28.9 MCHC 31.5 RDW Std Deviation 51.2 H Plt Count 121 L Neut % (Auto) 66 Lymph % (Auto) 16 Hill % (Auto) 10 Eos % (Auto) 7 Baso % (Auto) 0 Neut # (Auto) 4.6 Lymph # (Auto) 1.1 Hill # (Auto) 0.7 Eos # (Auto) 0.5 Baso # (Auto) 0.0 Immature Gran # (Auto) 0.03 H Absolute Nucleated RBC 0.00 Immature Gran % 0 Nucleated RBC % 0 Sodium 151 H 148 H Potassium 3.8 Chloride 110 H Carbon Dioxide 34.2 H Anion Gap 7 BUN 37 H Creatinine 0.8 Estim Creat Clear Calc 141.6 eGFR > 60 BUN/Creatinine Ratio 46 H Glucose 138 H Calculated Osmolality 310 H Calcium 9.0 Corrected Calcium 9.8 Total Bilirubin 0.2 L AST 28 ALT 18 Alkaline Phosphatase 82 Total Protein 5.3 L Albumin 3.0 L Globulin 2.3 Albumin/Globulin Ratio 1.3 ABG Interpretation ABG results: 08/22/24 08/23/24 08/25/24 08:37 03:41 04:26 ABG pH 7.36 7.22 L D 7.40 D ABG pCO2 55 H 70 H D 54 H D ABG pO2 70 L 252 H D 105 D ABG HCO3 31 H 28 H 34 H ABG O2 Saturation 94 101 H 99 H ABG Base Excess 5 H 1 8 H Quality Measures Quality Measures VTE prophylaxis Assessment & Plan Assessment Current Active Medications: Generic Name Dose Route Start Last Admin Trade Name Freq PRN Reason Stop Dose Admin Acetaminophen 650 mg 08/22/24 14:29 Acetaminophen 325 Mg Tablet PO 09/21/24 14:28 Q6H PRN Fever >101.5 Amlodipine Besylate 10 mg 08/25/24 11:15 08/28/24 09:30 Amlodipine Besylate 5 Mg Tablet PO 09/24/24 11:14 10 mg QDAY RINA Administration Bumetanide 2 mg 08/27/24 10:15 08/28/24 09:31 Bumetanide Inj 0.25 Mg/Ml Vial 4 Ml IVP 09/26/24 10:14 2 mg QDAY RINA Administration Cadexomer Iodine 0 gm 08/23/24 12:45 08/28/24 09:44 Cadexomer Iodine Gel 40 Gm Tube TOP 08/30/24 12:44 1 appln DAILY RINA Administration Carvedilol 6.25 mg 08/26/24 10:00 08/28/24 09:29 Carvedilol 3.125 Mg Tablet PO 09/25/24 09:59 6.25 mg BIDWM RINA Administration Cyclobenzaprine HCl 10 mg 08/22/24 16:50 08/28/24 05:44 Cyclobenzaprine 5 Mg Tablet PO 09/21/24 16:49 10 mg BID PRN Administration MUSCLE SPASMS Dextrose 25 ml 08/22/24 16:13 Dextrose 50%-Water Inj 50 Ml Syringe IV 09/21/24 16:12 Q15MIN PRN BG 50-70 responsive npo pt Dextrose 50 ml 08/22/24 16:13 Dextrose 50%-Water Inj 50 Ml Syringe IV 09/21/24 16:12 Q15MIN PRN BG <50 OR BG <70 & pt unresponsive Glucagon 1 mg 08/22/24 16:13 Glucagon Inj 1 Mg Vial IM Q15MIN PRN BG <70, and no IV access Guaifenesin 1 tab 08/25/24 10:00 08/28/24 09:30 Guaifenesin/P-Ephed Tablet PO 09/24/24 09:59 1 tab BID RINA Administration Insulin Glargine 15 unit 08/23/24 09:30 08/28/24 09:32 Insulin Glargine (Lantus) 5 Unit/0.05 Ml (Per 5 Units) SC 09/22/24 09:29 15 unit QDAY RINA Administration Insulin Human Lispro 0 unit 08/25/24 17:00 08/28/24 12:24 Insulin Lispro (Admelog) 1 Unit/0.01 Ml Unit SC 09/24/24 16:59 1 unit ACHS RINA Administration Protocol Lidocaine 1 patch 08/26/24 11:51 08/27/24 01:06 Lidocaine 5% 1 Patch TOP 09/25/24 11:50 1 patch UD PRN Administration LOCALIZED PAIN Morphine Sulfate 1 mg 08/27/24 10:10 08/28/24 13:40 Morphine Sulf Inj 10 Mg/Ml Vial IVP 09/01/24 10:09 1 mg Q4HR PRN Administration PAIN Ondansetron HCl 4 mg 08/22/24 14:29 Ondansetron Inj 2 Mg/Ml Inj 2 Ml IV 09/21/24 14:28 Q6H PRN NAUSEA OR VOMITING Protocol Pantoprazole Sodium 40 mg 08/22/24 21:00 08/28/24 09:28 Pantoprazole Inj 40 Mg Vial IVP 09/21/24 20:59 40 mg Q12HR RINA Administration Polyethylene Glycol 17 gm 08/26/24 09:00 08/28/24 09:28 Polyethylene Glycol 17 Gm Packet PO 09/25/24 08:59 17 gm QDAY RINA Administration Pregabalin 150 mg 08/22/24 22:00 08/28/24 13:39 Pregabalin 75 Mg Capsule PO 09/21/24 21:59 150 mg TID RINA Administration Sodium Chloride 3 ml 08/24/24 14:41 08/24/24 14:46 Sodium Chloride Rt Radha 0.9% 3 Ml Nebu INH 09/23/24 14:40 3 ml PRN PRN Administration SOLN Plan 54-year-old male with a past medical history of DM, CAD status post stents, HFpEF, hypertension, CO2 retainer from OHS/CAROLYN noncompliant on CPAP who presented to the ED on 08/22/2024 with shortness of breath and dizziness. Found to have acute blood loss anemia and admitted for GI evaluation. #Acute on chronic hypoxic respiratory failure, improved #CAROLYN and OHS #S/P extubation #Right upper lobe pneumonia On admission, the patient did have some shortness of breath. He was requiring about 4 L of oxygen which was more than 2 L which he uses at home. Chest x-ray suspicious forp pneumonia. The patient was started on IV ceftriaxone and doxycycline. Patient was started on BiPAP received quetiapine as well as 2 rounds of Ativan for agitation, CODE BLUE was called. Patient began to be mechanically ventilated, was extubated and transition to BiPAP. ABG showed pH of 7.4 and CO2 54, patient transition to nasal cannula. Patient downgraded to floors for further management. Antibiotics were discontinued, negative blood cultures, afebrile. The patient has a history of CAROLYN and OHS, uses 2 L of oxygen at home as well as a CPAP at night. Patient having shallow breathing due to chest pain. Lidocaine patch added, chest PT ordered. 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 -DC antibiotics -Mupirocin for MRSA nares -CPT with Acapella device -Bumex 2mg x 1 #History of HFpEF 55 to 60% #Cardiac arrest status post ROSC #Deconditioning. The patient had a CODE BLUE called after heart rate was low in the 30s and there was no electrical activity. ROSC obtained after about 8 minutes of chest compressions and 2 rounds of epinephrine. EKG done after was benign no acute ST or T changes. Troponin-negative. Patient has a history of HFpEF and was given 1 dose of Bumex 2 mg on admission. Echo showed left ventricle ejection fraction 55 to 60% with diastolic dysfunction II. Patient has signs of deconditioning with weakness. Patient working with physical therapy well. PT recommends acute rehabilitation facility for further therapy. -Strict I&O's -Home Coreg 6.25 mg p.o. twice daily -Lidocaine patch and Morphine 1mg Q4HR scheduled for post compression chest pain -Incentive spirometry -Daily PT -Plan for placement in acute rehab facility #Acute blood loss anemia-stable #GI bleed #History of cirrhosis stable On admission, the patient reported dizziness and shortness of breath. Initial labs significant for hemoglobin of 4.3, he also reported multiple episodes of dark stool and some bright red blood per rectum. 3 units of PRBCs were ordered and patient was being transfused. Repeat H&H returned for Hgb of 5.9. 08/24/2024: Hgb today at 7.7 after 6 units of pRBCs. EGD did not show any active bleeding. -Continue monitoring H&H -Continue IV Protonix -GI consulted, appreciate recommendations -Patient to get capsule endoscopy outpatient #Hypertension Patient does have a history of hypertension. BP meds initially held. Blood pressure consistently stayed 160?170. Amlodipine initiated. Resumed home Coreg -Amlodipine 10 mg daily -Coreg 6.25 mg p.o. twice daily #Hypernatremia Sodium today at 152. Patient had significant diuresis overnight, close to 3 L urine output, due to postextubation redistribution. Patient received IV D5W, encouraged oral hydration. Hyponatremia improving, down to 148. -Continue to monitor -Salt restricted diet: 2 g sodium daily. #Diabetes Patient has a history of diabetes and is on insulin 30 units twice daily as well as Coreg and Januvia. Last A1c done was 6.8. Blood glucose this morning at 247. 08/24/2024: Blood glucose at 156 this morning. A1c was ordered but canceled, to be completed at [facility], likely to be >14 -Continue SC Lantus 15 units -Insulin sliding scale -Keep blood glucose between 140-180 -Hypoglycemic protocols in place #Stage III pressure ulcer Patient has a history of ulcers, on examination he has a stage III pressure ulcer in the sacral region. -Wound care referral #Acute kidney injury, resolved Likely in the setting of hypovolemia/hemorrhage. Admitting BUN and creatinine elevated, creatinine at 1.5, baseline of about 0.8. Patient received LR at about 75 cc/h Creatinine still at 1.6. 08/24/2024: BUN still elevated at 108 normal creatinine. This could be either a consequence of steroids or the GI bleed. 08/26/2023: BUN 76 today, creatinine at 1.1. -Continue monitoring renal panel DVT prophylaxis: SCDs GI prophylaxis: Protonix Diet: Carb consistent low, salt restriction Lines: Peripheral IV, Wright cath Code status: Full code Plan of care discussed with senior resident Dr. Berg PGY?[address] Askew. Enrique Justice MD PGY?1 Attending Provider Attestation/Addendum Dianna Camara, , attest that I was physically present for the kirkpatrick portions of the service and evaluated the patient with the resident and I reviewed and discussed the case with the resident and agree with the resident's findings and plans of care as documented above Patient seen and evaluated this a.m. He states he is doing well, but has right lower rib cage pain. Encourage patient to use incentive spirometer. Hemoglobin has otherwise been stable. Patient is to work with physical therapy this afternoon. Will follow-up with recommendations. Patient remains on 2 L nasal cannula wearing BiPAP at night. Anticipate discharge within the next 24 to 48 hours. Will continue with IV Bumex due to bilateral lower extremity edema. Counseled patient on compliance with low-sodium diet and fluid restriction.
--- NOTE | 2024-08-28 16:53 | PC.SS ---
HOT PIPE GAUGER conducted bedside contact with the patient and patient's daughter, Gregoria Sutton ; to confirm patient's POC and surrogate medical decision maker. Patient verbal identified daughter, Gregoria Sutton; as his surrogate medical decision maker and POC. HOT PIPE GAUGER updated Tele community representative.
--- NOTE | 2024-08-28 22:13 | PD.IMPROG ---
Documentation for date of: 08/28/24 Subjective Subjective Interval history: Patient evaluated Hemoglobin hematocrit 7.4 and 23.5 Exam Vital Signs Temp Pulse Resp BP Pulse Ox O2 Del Method O2 Flow Rate 97.8 F 79 15 154/72 H 96 Nasal Cannula 2 08/28/24 19:38 08/28/24 20:00 08/28/24 19:38 08/28/24 19:38 08/28/24 19:38 08/28/24 19:38 08/28/24 19:38 FiO2 40 08/28/24 16:00 Routine Respiratory Exam Comments: Normal to auscultation Routine Abdominal Exam Comments: Soft nontender Objective Labs 08/28/24 05:28 08/28/24 09:35 Labs: Laboratory Results - last 24 hr 08/28/24 08/28/24 05:28 09:35 WBC 6.9 RBC 2.56 L Hgb 7.4 L Hct 23.5 L MCV 92 MCH 28.9 MCHC 31.5 RDW Std Deviation 51.2 H Plt Count 121 L Neut % (Auto) 66 Lymph % (Auto) 16 Ramsey % (Auto) 10 Eos % (Auto) 7 Baso % (Auto) 0 Neut # (Auto) 4.6 Lymph # (Auto) 1.1 Ramsey # (Auto) 0.7 Eos # (Auto) 0.5 Baso # (Auto) 0.0 Immature Gran # (Auto) 0.03 H Absolute Nucleated RBC 0.00 Immature Gran % 0 Nucleated RBC % 0 Sodium 151 H 148 H Potassium 3.8 Chloride 110 H Carbon Dioxide 34.2 H Anion Gap 7 BUN 37 H Creatinine 0.8 Estim Creat Clear Calc 141.6 eGFR > 60 BUN/Creatinine Ratio 46 H Glucose 138 H Calculated Osmolality 310 H Calcium 9.0 Corrected Calcium 9.8 Total Bilirubin 0.2 L AST 28 ALT 18 Alkaline Phosphatase 82 Total Protein 5.3 L Albumin 3.0 L Globulin 2.3 Albumin/Globulin Ratio 1.3 Impressions Impression: Gastritis Gastric motility disorder Continue to monitor CBC ABG Interpretation ABG results: 08/22/24 08/23/24 08/25/24 08:37 03:41 04:26 ABG pH 7.36 7.22 L D 7.40 D ABG pCO2 55 H 70 H D 54 H D ABG pO2 70 L 252 H D 105 D ABG HCO3 31 H 28 H 34 H ABG O2 Saturation 94 101 H 99 H ABG Base Excess 5 H 1 8 H Assessment & Plan A&P Narrative # Acute anemia blood loss Agree with the blood transfusion Initial test would be fiberoptic esophagogastroduodenoscopy with possible therapeutic intervention under intravenous moderate sedation if that is negative with a history of hematochezia we will consider doing a fiberoptic colonoscopy after GoLytely prep Other medical problems include # Acute respiratory failure requiring endotracheal intubation # CVA requiring bilateral carotid enterectomy # Vertebral hemangioma requiring radiation therapy # coronary artery disease status post PTCA # pulmonary embolism on Eliquis # Congestive heart failure # primary pulmonary hypertension # Diabetes mellitus type 2 # obesity syndrome Thank you very much for the opportunity to participate in the care of this patient Time Spent With Patient Time: Total time spent is greater than 50% in coordination of care (as documented) at patient's floor/unit and/or counseling patient:
[2024-08-29] VITALS (16 sets, daily range): BP systolic 125–167; BP diastolic 80–88; PULSE 70–96; RESP 12–20; TEMP 36.2–36.7; O2SAT 93–99
[2024-08-29] MEDS: MORPHINE SULF INJ 10 MG/ML VIAL IVP ×4 (00:06→19:20)
[2024-08-29] MEDS: LIDOCAINE 5% 1 PATCH TOP (03:14)
[2024-08-29] MEDS: PREGABALIN 75 MG CAPSULE 150 MG PO ×3 (05:34→21:09)
[2024-08-29 06:11] LABS: Basophils % (Auto) 0 % (0-2.5); Eosinophils # (Auto) 0.5 Thou/mm3 (0.0-0.5); Eosinophils % (Auto) 6 % (0-10); Hematocrit 24.6 % (41.0-53.0); Immature Granulocytes % (Auto) 1 % (0-0); Immature Granulocytes Auto 0.04 Thou/mm3 (0.00-0.00); Lymphocytes % (Auto) 13 % (10-50); Mean Corpuscular HGB Conc 30.9 g/dl (31.0-37.0); Mean Corpuscular Hemoglobin 28.7 pg (25.0-35.0); Mean Corpuscular Volume 93 fL (80-100); Monocytes # (Auto) 0.9 Thou/mm3 (0.0-0.8); Monocytes % (Auto) 12 % (0-12); Neutrophils % (Auto) 68 % (37-80); Nucleated Red Blood Cell % 0 /100 WBC (0); Platelet Count 137 Thou/mm3 (140-440); RDW Standard Deviation 51.1 fL (35.1-43.9); Red Blood Count 2.65 Miln/mm3 (4.50-5.90); White Blood Count 7.4 Thou/mm3 (3.8-10.6)
[2024-08-29 06:24] LABS: Hemoglobin 7.6 g/dL (13.5-16.0)
[2024-08-29 06:51] LABS: Alanine Aminotransferase 11 U/L (10-49); Albumin, Serum 3.1 gm/dL (3.5-5.0); Albumin/Globulin Ratio 1.2 (1.2-2.2); Alkaline Phosphatase 81 U/L (46-116); Anion Gap 5 (7-16); Aspartate Amino Transferase 21 U/L (0-34); BUN/Creatinine Ratio 33 Ratio (12-20); Bilirubin,Total 0.3 mg/dL (0.3-1.2); Blood Urea Nitrogen 30 mg/dL (9-23); Calcium 8.8 mg/dL (8.3-10.6); Calcium (Corrected) 9.5 mg/dL (8.5-10.1); Chloride 110 mMol/L (98-107); Creatinine (Component) 0.9 mg/dL (0.6-1.3); Estimated Creatinine Clearance 126.6 mL/min (>60); Globulin 2.5 gm/dL (2.3-3.5); Glucose 121 mg/dL (74-106); Osmolality,Calculated 301 (275-295); Potassium 3.7 mMol/L (3.4-5.1); Sodium 148 mMol/L (136-145); Total Protein 5.6 gm/dL (5.7-8.2); eGFR > 60 See Note
[2024-08-29] MEDS: amLODIPine BESYLATE 5 MG TABLET 10 MG PO (08:18)
[2024-08-29] MEDS: PANTOPRAZOLE INJ 40 MG VIAL IVP ×2 (08:18→21:09)
[2024-08-29] MEDS: carVEDILOL 3.125 MG TABLET 6.25 MG PO ×2 (08:18→17:08)
[2024-08-29] MEDS: BUMETANIDE INJ 0.25 MG/ML VIAL 4 ML 2 MG IVP (08:19)
[2024-08-29] MEDS: guaiFENesin/P-EPHED TABLET 1 TAB PO ×2 (08:19→21:09)
[2024-08-29] MEDS: POLYETHYLENE GLYCOL 17 GM PACKET PO (08:19)
[2024-08-29] MEDS: INSULIN GLARGINE (Lantus) 5 UNIT/0.05 ML (PER 5 UNITS) 15 UNIT SC (08:26)
[2024-08-29 09:50] LABS: Sodium 148 mMol/L (136-145)
--- NOTE | 2024-08-29 12:13 | PC.SS ---
Addendum entered by Guadalupe Sarkar 08/29/24 15:37: SS called Latoya @ [facility] and we are still pending auth. They will accept patient back once they receive authorization Original Note: Follow up note: Patient has d/c orders for today. Patient wants to return to [facility]. SS sent over updated clincials to facility. Insurance co. needs to get auth
[2024-08-29] MEDS: CADEXOMER IODINE GEL 40 GM TUBE TOP (13:46)
--- NOTE | 2024-08-29 13:50 | PD.RESDS ---
Planned Discharge Date 08/29/24 DS: Providers Provider Date of admission: 08/22/24 14:27 Primary care physician: Darrion Kevin MD Admitting Provider: Sabino Whitfield MD Attending Provider on Admission: Dianna Askew DO Consults: 08/23/24 12:27 Consult to Gastroenterology Routine Comment: Consulting Provider: Jono Wakefield 08/23/24 12:30 Referral Registered Dietitian Routine Comment: Wounds Referral Wound Care Routine Comment: Wounds 08/24/24 10:39 Referral Speech Therapy Routine Comment: 08/25/24 16:36 Referral Physical Therapy Routine Comment: Physician Instructions: 08/25/24 16:39 Referral Physical Therapy Routine Comment: Physician Instructions: 08/26/24 19:30 Referral Wound Care Routine Comment: new wound noted to right thrumb under iv placement 08/28/24 09:15 Referral Physical Therapy Urgent Comment: Physician Instructions: Attending Provider on DC: Dianna Askew DO Discharging Provider: Enrique Justice MD Hospital Course Hospital Course Hospital course: Patient evaluated Hemoglobin hematocrit 7.4 and 23.5 Time Spent with Patient Time attestation: Total time spent providing and/or coordinating discharge services: Exam Vital Signs Temp Pulse Resp BP Pulse Ox O2 Del Method O2 Flow Rate 97.4 F 80 18 158/80 H 93 L Nasal Cannula 3 08/29/24 04:00 08/29/24 08:19 08/29/24 07:49 08/29/24 08:19 08/29/24 07:49 08/29/24 04:00 08/29/24 07:49 FiO2 40 08/29/24 00:09 Discharge Plan Plan Patient Disposition: Xfer Skilled Nsg Fac (SNF) Disposition Comment: [facility] Patient condition on transfer: Stable Care Plan Goals: You have been started on the following medications: -Lidocaine topical patches 1/day as needed for chest pain The following medications have been stopped: -Amlodipine 10 daily -Lasix 80 daily Please continue taking all previous medications as previously prescribed Follow-up with your PCP in 1-2 weeks Please return to the ED if you develop new or worsening symptoms. Prescriptions/Referrals Prescriptions/Med Rec: New lidocaine 4 % adhesive patch,medicated 1 patch topical UD PRN (Reason: LOCALIZED PAIN) 15 Days Qty: 0 0RF Continued hydrocodone-acetaminophen 10-325 mg tablet 1 tab PO Q4H PRN (Reason: pain, mild) Rx Instructions: pain 1-3 pregabalin 150 mg capsule 150 mg PO TID sennosides [senna] 8.6 mg tablet 8.6 mg PO BID PRN (Reason: constipation) Qty: 30 0RF nifedipine 30 mg tablet extended release 30 mg PO QDAY 30 Days Qty: 30 0RF docusate sodium 100 mg capsule 100 mg PO QDAY loperamide [Anti-Diarrheal (loperamide)] 2 mg capsule 2 mg PO Q6H PRN (Reason: loose stool) metolazone 5 mg tablet 5 mg PO DAILY morphine 15 mg tablet extended release 15 mg PO Q12H PRN (Reason: Pain, Severe) metoclopramide HCl 5 mg tablet 5 mg PO Q6H 30 Days Qty: 120 3RF atorvastatin 80 mg Tablet 80 mg PO QPM ascorbic acid (vitamin C) [Vitamin C] 500 mg Tablet 500 mg PO BID apixaban 5 mg Tablet 5 mg PO BID insulin detemir U-100 100 unit/mL (3 mL) Insulin Pen 30 unit SUBCUT BID Qty: 15 0RF insulin lispro [Humalog KwikPen Insulin] 100 unit/mL insulin pen See Protocol SUBCUT AC Protocol: Insulin Corrective High-Dose Regimen Condition: Fingerstick Blood Glucose Dose/Route: Insulin Units Condition: 141-180 mg/dl Dose/Route: 6 units/SQ Condition: 181-220 mg/dl Dose/Route: 8 units/SQ Condition: 221-260 mg/dl Dose/Route: 10 units/SQ Condition: 261-300 mg/dl Dose/Route: 12 units/SQ Condition: 301-350 mg/dl Dose/Route: 14 units/SQ Condition: 351-400 mg/dl Dose/Route: 16 units/SQ Condition: greater than 400 mg/dl Dose/Route: 18 units/SQ Zepbound 2.5 mg/0.5 mL pen injector 2.5 mg subcut QWEEK Qty: 2 2RF Rx Instructions: Please double the dose every 2 weeks as tolerated until maximum dose of 10mg/Week. bumetanide 2 mg tablet 2 mg PO BID 30 Days Qty: 60 0RF hydralazine 100 mg tablet 100 mg PO TID 30 Days Qty: 90 0RF Januvia 100 mg tablet 100 mg PO DAILY bisacodyl [Dulcolax (bisacodyl)] 10 mg suppository 10 mg HI QDAY PRN (Reason: constipation) Rx Instructions: If mom not effective ergocalciferol (vitamin D2) 1,250 mcg (50,000 unit) capsule 50,000 unit PO QWEEK aspirin [Ecotrin Low Strength] 81 mg tablet,delayed release (DR/EC) 81 mg PO QDAY oxybutynin chloride 5 mg tablet 5 mg PO BID clopidogrel [Plavix] 75 mg tablet 75 mg PO QDAY meclizine 25 mg tablet 25 mg PO DAILY PRN (Reason: nausea and vomiting) cyclobenzaprine 10 mg tablet 10 mg PO Q12H PRN (Reason: muscle spasm) carvedilol 6.25 mg tablet 6.25 mg PO BID Rx Instructions: hold for SBP <110 or HR <60 ipratropium-albuterol 0.5 mg-3 mg(2.5 mg base)/3 mL solution for nebulization 3 ml INHALATION BID PRN (Reason: shortness of breath) ProAir RespiClick 90 mcg/actuation aerosol powdr breath activated 2 inh INHALATION Q4H PRN (Reason: shortness of breath or wheezing) naloxone [Narcan] 4 mg/actuation spray,non-aerosol 1 spray intranasal Q3M Qty: 2 0RF Rx Instructions: spray 1 dose into ONE nostril; alternate nostrils w each dose until help arrives Held lorazepam 2 mg tablet 2 mg PO HS Hold Instructions: f/u pcp Discontinued furosemide 80 mg tablet 80 mg PO DAILY amlodipine 10 mg tablet 10 mg PO DAILY losartan 50 mg tablet 100 mg PO QDAY No Action Sapphire-Holly 0.8 mg Tablet 1 tab PO QDAY magnesium hydroxide [Milk of Magnesia] 400 mg/5 mL suspension 30 ml PO Q72H PRN (Reason: constipation) Rx Instructions: if no BM for 3 days Referrals: Darrion Kevin MD [Primary Care Provider] - Patient/Caregiver Discharge Instructions Meds to Beds: No Discharge Activity: as per physical therapy Education Materials: Diabetes: Caring for Your Body, Hypertension Dc, A Sample Walking Program, Diabetes and High Blood Pressure Print Language: Hong Konger Stand Alone Forms: [facility]quel Award Info., Patient Portal Info Letter Discharge Order Discharge Orders: Discharge (Routine); Ordered 08/29/24 Ordered By: Enrique Justice
[2024-08-29] MEDS: INSULIN LISPRO (AdmeLOG) 1 UNIT/0.01 ML UNIT SC (17:08)
--- NOTE | 2024-08-29 17:33 | ESPR_ITS ---
<Statement entered by Jaquelin Sparrow MD - 08/30/24 14:57> Patient seen and examined at bedside. No acute overnight events reported except for receiving an extra dose of IV morphine. Patient continues to have this pop like sensation especially when breathing, most likely in the setting of rib fracture from chest compressions. Despite making patient aware that acute rehab will be more beneficial, patient expressed his preference [facility]. Patient is currently pending re- authorization. Anticipate discharge within 24 hours. I discussed with and supervised the biology intern physician who took care of this patient. I personally saw and examined the patient and discussed the assessment and plan with the entire medicine team, including my attending Dr. Askew, I agree with most of the assessment and plan as documented below Jaquelin Sparrow M.D. PGY-2 Disclaimer: Despite multiple revisions, due to the dictation software being used, the document bellow may not be free of grammatical errors including phonetic/typographic errors. However, this does not deter from our commitment to providing health care in the patient's best interest in mind. Documentation for date of: 08/29/24 Subjective Subjective Interval history: Overnight: Patient received 0.5 g IV morphine for persistent pleuritic pain. Patient seen and examined at bedside. Patient reports improvement in shortness of breath, but continues to have pleuritic chest pain. Denies fever, chills, nausea, vomiting. Discussed importance of participating in physical therapy with patient. Discussed patient return to SNF versus temporary placement acute rehab, patient expressed understanding of benefits and stated his preference for return to his previous SNF. Pending authorization. Exam Vital Signs Temp Pulse Resp BP Pulse Ox O2 Del Method O2 Flow Rate 97.5 F 75 16 150/88 H 98 Nasal Cannula 3 08/29/24 16:00 08/29/24 17:08 08/29/24 16:00 08/29/24 17:08 08/29/24 16:00 08/29/24 16:00 08/29/24 16:00 FiO2 40 08/29/24 16:00 Narrative Exam PE: Gen: Well-developed and well-nourished. Obese. HEENT: NCAT, PERRLA, EOMI, MMM, anicteric conjunctivae. CVS: normal S1 and S2. RRR. No M/R/G. Tenderness to palpation. Resp: Diminished lung sounds throughout. No rales, rhonchi, crackles. Abd: soft, non-tender, non-distended. MSK: Good ROM in BUE & BLE. No rash. 2+ pitting edema BLE. Neuro: CN II-XII grossly intact. Strength 5/5 in BUE & BLE. Alert and oriented x3. Psych: appropriate mood and affect. Objective Labs 08/29/24 05:36 08/29/24 09:11 Labs: Laboratory Results - last 24 hr 08/29/24 08/29/24 05:36 09:11 WBC 7.4 RBC 2.65 L Hgb 7.6 L Hct 24.6 L MCV 93 MCH 28.7 MCHC 30.9 L RDW Std Deviation 51.1 H Plt Count 137 L Neut % (Auto) 68 Lymph % (Auto) 13 [place] % (Auto) 12 Eos % (Auto) 6 Baso % (Auto) 0 Neut # (Auto) 5.0 Lymph # (Auto) 1.0 [place] # (Auto) 0.9 H Eos # (Auto) 0.5 Baso # (Auto) 0.0 Immature Gran # (Auto) 0.04 H Absolute Nucleated RBC 0.00 Immature Gran % 1 H Nucleated RBC % 0 Sodium 148 H 148 H Potassium 3.7 Chloride 110 H Carbon Dioxide 33.0 H Anion Gap 5 L BUN 30 H Creatinine 0.9 Estim Creat Clear Calc 126.6 eGFR > 60 BUN/Creatinine Ratio 33 H Glucose 121 H Calculated Osmolality 301 H Calcium 8.8 Corrected Calcium 9.5 Total Bilirubin 0.3 AST 21 ALT 11 Alkaline Phosphatase 81 Total Protein 5.6 L Albumin 3.1 L Globulin 2.5 Albumin/Globulin Ratio 1.2 ABG Interpretation ABG results: 08/22/24 08/23/24 08/25/24 08:37 03:41 04:26 ABG pH 7.36 7.22 L D 7.40 D ABG pCO2 55 H 70 H D 54 H D ABG pO2 70 L 252 H D 105 D ABG HCO3 31 H 28 H 34 H ABG O2 Saturation 94 101 H 99 H ABG Base Excess 5 H 1 8 H Quality Measures Quality Measures VTE prophylaxis Assessment & Plan Assessment Current Active Medications: Generic Name Dose Route Start Last Admin Trade Name Freq PRN Reason Stop Dose Admin Acetaminophen 650 mg 08/22/24 14:29 Acetaminophen 325 Mg Tablet PO 09/21/24 14:28 Q6H PRN Fever >101.5 Amlodipine Besylate 10 mg 08/25/24 11:15 08/29/24 08:18 Amlodipine Besylate 5 Mg Tablet PO 09/24/24 11:14 10 mg QDAY RINA Administration Bumetanide 2 mg 08/27/24 10:15 08/29/24 08:19 Bumetanide Inj 0.25 Mg/Ml Vial 4 Ml IVP 09/26/24 10:14 2 mg QDAY RINA Administration Cadexomer Iodine 0 gm 08/29/24 09:00 08/29/24 13:46 Cadexomer Iodine Gel 40 Gm Tube TOP 09/05/24 08:59 1 applicatio DAILY RINA Administration Carvedilol 6.25 mg 08/26/24 10:00 08/29/24 17:08 Carvedilol 3.125 Mg Tablet PO 09/25/24 09:59 6.25 mg BIDWM RINA Administration Cyclobenzaprine HCl 10 mg 08/22/24 16:50 08/28/24 05:44 Cyclobenzaprine 5 Mg Tablet PO 09/21/24 16:49 10 mg BID PRN Administration MUSCLE SPASMS Dextrose 25 ml 08/22/24 16:13 Dextrose 50%-Water Inj 50 Ml Syringe IV 09/21/24 16:12 Q15MIN PRN BG 50-70 responsive npo pt Dextrose 50 ml 08/22/24 16:13 Dextrose 50%-Water Inj 50 Ml Syringe IV 09/21/24 16:12 Q15MIN PRN BG <50 OR BG <70 & pt unresponsive Glucagon 1 mg 08/22/24 16:13 Glucagon Inj 1 Mg Vial IM Q15MIN PRN BG <70, and no IV access Guaifenesin 1 tab 08/25/24 10:00 08/29/24 08:19 Guaifenesin/P-Ephed Tablet PO 09/24/24 09:59 1 tab BID RINA Administration Insulin Glargine 15 unit 08/23/24 09:30 08/29/24 08:26 Insulin Glargine (Lantus) 5 Unit/0.05 Ml (Per 5 Units) SC 09/22/24 09:29 15 unit QDAY RINA Administration Insulin Human Lispro 0 unit 08/25/24 17:00 08/29/24 17:08 Insulin Lispro (Admelog) 1 Unit/0.01 Ml Unit SC 09/24/24 16:59 1 unit ACHS RINA Administration Protocol Lidocaine 1 patch 08/26/24 11:51 08/29/24 03:14 Lidocaine 5% 1 Patch TOP 09/25/24 11:50 1 patch UD PRN Administration LOCALIZED PAIN Morphine Sulfate 1 mg 08/28/24 16:56 08/29/24 16:34 Morphine Sulf Inj 10 Mg/Ml Vial IVP 09/01/24 10:09 1 mg Q8H PRN Administration PAIN Ondansetron HCl 4 mg 08/22/24 14:29 Ondansetron Inj 2 Mg/Ml Inj 2 Ml IV 09/21/24 14:28 Q6H PRN NAUSEA OR VOMITING Protocol Pantoprazole Sodium 40 mg 08/22/24 21:00 08/29/24 08:18 Pantoprazole Inj 40 Mg Vial IVP 09/21/24 20:59 40 mg Q12HR RINA Administration Polyethylene Glycol 17 gm 08/26/24 09:00 08/29/24 08:19 Polyethylene Glycol 17 Gm Packet PO 09/25/24 08:59 17 gm QDAY RINA Administration Pregabalin 150 mg 08/22/24 22:00 08/29/24 13:46 Pregabalin 75 Mg Capsule PO 09/21/24 21:59 150 mg TID RINA Administration Sodium Chloride 3 ml 08/24/24 14:41 08/24/24 14:46 Sodium Chloride Rt Radha 0.9% 3 Ml Nebu INH 09/23/24 14:40 3 ml PRN PRN Administration SOLN Plan 54-year-old male with a past medical history of DM, CAD status post stents, HFpEF, hypertension, CO2 retainer from OHS/CAROLYN noncompliant on CPAP who presented to the ED on 08/22/2024 with shortness of breath and dizziness. Found to have acute blood loss anemia and admitted for GI evaluation. #Acute on chronic hypoxic respiratory failure, improved #CAROLYN and OHS #S/P extubation #Right upper lobe pneumonia On admission, the patient did have some shortness of breath. He was requiring about 4 L of oxygen which was more than 2 L which he uses at home. Chest x-ray suspicious forp pneumonia. The patient was started on IV ceftriaxone and doxycycline. Patient was started on BiPAP received quetiapine as well as 2 rounds of Ativan for agitation, CODE BLUE was called. Patient began to be mechanically ventilated, was extubated and transition to BiPAP. ABG showed pH of 7.4 and CO2 54, patient transition to nasal cannula. Patient downgraded to floors for further management. Antibiotics were discontinued, negative blood cultures, afebrile. The patient has a history of CAROLYN and OHS, uses 2 L of oxygen at home as well as a CPAP at night. Patient having shallow breathing due to chest pain. Lidocaine patch added, chest PT ordered. 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 -DC antibiotics -Mupirocin for MRSA nares -CPT with Acapella device -Bumex 2mg IV daily #HFpEF 55 to 60% #Cardiac arrest status post ROSC #Deconditioning. The patient had a CODE BLUE called after heart rate was low in the 30s and there was no electrical activity. ROSC obtained after about 8 minutes of chest compressions and 2 rounds of epinephrine. EKG done after was benign no acute ST or T changes. Troponin-negative. Patient has a history of HFpEF and was given 1 dose of Bumex 2 mg on admission. Echo showed left ventricle ejection fraction 55 to 60% with diastolic dysfunction II. Patient has signs of deconditioning with weakness. Patient working with physical therapy well. PT recommends acute rehabilitation facility for further therapy. -Strict I&O's -Home Coreg 6.25 mg p.o. twice daily -Lidocaine patch and Morphine 1mg Q4HR scheduled for post compression chest pain -Incentive spirometry -Daily PT #Acute blood loss anemia-stable #GI bleed #History of cirrhosis stable On admission, the patient reported dizziness and shortness of breath. Initial labs significant for hemoglobin of 4.3, he also reported multiple episodes of dark stool and some bright red blood per rectum. 3 units of PRBCs were ordered and patient was being transfused. Repeat H&H returned for Hgb of 5.9. 08/24/2024: Hgb today at 7.7 after 6 units of pRBCs. EGD did not show any active bleeding. -Continue monitoring H&H -Continue IV Protonix -GI consulted, appreciate recommendations -Patient to get capsule endoscopy outpatient #Hypertension Patient does have a history of hypertension. BP meds initially held. Blood pressure consistently stayed 160?170. Amlodipine initiated. Resumed home Coreg -Amlodipine 10 mg daily -Coreg 6.25 mg p.o. twice daily #Hypernatremia Sodium today at 152. Patient had significant diuresis overnight, close to 3 L urine output, due to postextubation redistribution. Patient received IV D5W, encouraged oral hydration. Hyponatremia improving, down to 148. -Continue to monitor -Salt restricted diet: 2 g sodium daily. #Diabetes Patient has a history of diabetes and is on insulin 30 units twice daily as well as Coreg and Januvia. Last A1c done was 6.8. Blood glucose this morning at 247. 08/24/2024: Blood glucose at 156 this morning. A1c was ordered but canceled, to be completed at [place], likely to be >14 -Continue SC Lantus 15 units -Insulin sliding scale -Keep blood glucose between 140-180 -Hypoglycemic protocols in place #Stage III pressure ulcer Patient has a history of ulcers, on examination he has a stage III pressure ulcer in the sacral region. -Wound care referral #Acute kidney injury, resolved Likely in the setting of hypovolemia/hemorrhage. Admitting BUN and creatinine elevated, creatinine at 1.5, baseline of about 0.8. Patient received LR at about 75 cc/h Creatinine still at 1.6. 08/24/2024: BUN still elevated at 108 normal creatinine. This could be either a consequence of steroids or the GI bleed. 08/26/2023: BUN 76 today, creatinine at 1.1. -Continue monitoring renal panel DVT prophylaxis: SCDs GI prophylaxis: Protonix Diet: Carb consistent low, salt restriction Lines: Peripheral IV, Wright cath Code status: Full code Plan of care discussed with senior resident Dr. Sparrow PGY?[address] Askew. Enrique Justice MD PGY?1
[2024-08-29] MEDS: CYCLObenzaPRINE 5 MG TABLET 10 MG PO (18:41)
--- NOTE | 2024-08-29 22:16 | ESPR_ITS ---
Documentation for date of: 08/29/24 Subjective Subjective Interval history: Patient evaluated Case discussed with internal medicine team hemoglobin hematocrit 7.6 and 24.6 Exam Vital Signs Temp Pulse Resp BP Pulse Ox O2 Del Method O2 Flow Rate 97.2 F 71 15 167/85 H 99 Nasal Cannula 2 08/29/24 21:11 08/29/24 22:11 08/29/24 22:11 08/29/24 21:11 08/29/24 22:11 08/29/24 21:11 08/29/24 21:11 FiO2 40 08/29/24 22:11 Objective Labs 08/29/24 05:36 08/29/24 09:11 Labs: Laboratory Results - last 24 hr 08/29/24 08/29/24 05:36 09:11 WBC 7.4 RBC 2.65 L Hgb 7.6 L Hct 24.6 L MCV 93 MCH 28.7 MCHC 30.9 L RDW Std Deviation 51.1 H Plt Count 137 L Neut % (Auto) 68 Lymph % (Auto) 13 [place] % (Auto) 12 Eos % (Auto) 6 Baso % (Auto) 0 Neut # (Auto) 5.0 Lymph # (Auto) 1.0 [place] # (Auto) 0.9 H Eos # (Auto) 0.5 Baso # (Auto) 0.0 Immature Gran # (Auto) 0.04 H Absolute Nucleated RBC 0.00 Immature Gran % 1 H Nucleated RBC % 0 Sodium 148 H 148 H Potassium 3.7 Chloride 110 H Carbon Dioxide 33.0 H Anion Gap 5 L BUN 30 H Creatinine 0.9 Estim Creat Clear Calc 126.6 eGFR > 60 BUN/Creatinine Ratio 33 H Glucose 121 H Calculated Osmolality 301 H Calcium 8.8 Corrected Calcium 9.5 Total Bilirubin 0.3 AST 21 ALT 11 Alkaline Phosphatase 81 Total Protein 5.6 L Albumin 3.1 L Globulin 2.5 Albumin/Globulin Ratio 1.2 Impressions Impression: Gastritis Gastric motility disorder Outpatient capsule endoscopy to be scheduled by the PCP ABG Interpretation ABG results: 08/22/24 08/23/24 08/25/24 08:37 03:41 04:26 ABG pH 7.36 7.22 L D 7.40 D ABG pCO2 55 H 70 H D 54 H D ABG pO2 70 L 252 H D 105 D ABG HCO3 31 H 28 H 34 H ABG O2 Saturation 94 101 H 99 H ABG Base Excess 5 H 1 8 H Assessment & Plan A&P Narrative # Acute anemia blood loss Agree with the blood transfusion Initial test would be fiberoptic esophagogastroduodenoscopy with possible therapeutic intervention under intravenous moderate sedation if that is negative with a history of hematochezia we will consider doing a fiberoptic colonoscopy after GoLytely prep Other medical problems include # Acute respiratory failure requiring endotracheal intubation # CVA requiring bilateral carotid enterectomy # Vertebral hemangioma requiring radiation therapy # coronary artery disease status post PTCA # pulmonary embolism on Eliquis # Congestive heart failure # primary pulmonary hypertension # Diabetes mellitus type 2 # obesity syndrome Thank you very much for the opportunity to participate in the care of this patient Time Spent With Patient Time: Total time spent is greater than 50% in coordination of care (as documented) at patient's floor/unit and/or counseling patient:
[2024-08-30] VITALS (17 sets, daily range): BP systolic 145–159; BP diastolic 72–88; PULSE 72–78; RESP 12–21; TEMP 36.1–36.4; O2SAT 93–99; BMI 46.2
[2024-08-30] MEDS: ACETAMINOPHEN 325 MG TABLET 650 MG PO ×2 (00:14→05:08)
[2024-08-30 00:50] LABS: Basophils % (Auto) 0 % (0-2.5); Eosinophils # (Auto) 0.4 Thou/mm3 (0.0-0.5); Eosinophils % (Auto) 5 % (0-10); Hematocrit 25.5 % (41.0-53.0); Immature Granulocytes % (Auto) 0 % (0-0); Immature Granulocytes Auto 0.03 Thou/mm3 (0.00-0.00); Lymphocytes # (Auto) 0.9 Thou/mm3 (1.0-4.8); Lymphocytes % (Auto) 11 % (10-50); Mean Corpuscular Hemoglobin 28.3 pg (25.0-35.0); Mean Corpuscular Volume 91 fL (80-100); Monocytes # (Auto) 1.1 Thou/mm3 (0.0-0.8); Monocytes % (Auto) 12 % (0-12); Neutrophils # (Auto) 6.2 Thou/mm3 (1.8-7.7); Neutrophils % (Auto) 72 % (37-80); Nucleated Red Blood Cell % 0 /100 WBC (0); Platelet Count 148 Thou/mm3 (140-440); RDW Standard Deviation 50.5 fL (35.1-43.9); Red Blood Count 2.79 Miln/mm3 (4.50-5.90); White Blood Count 8.7 Thou/mm3 (3.8-10.6)
[2024-08-30 00:54] LABS: Hemoglobin 7.9 g/dL (13.5-16.0)
[2024-08-30] MEDS: MORPHINE SULF INJ 10 MG/ML VIAL IVP ×2 (03:47→11:56)
[2024-08-30] MEDS: PREGABALIN 75 MG CAPSULE 150 MG PO ×2 (05:07→15:14)
[2024-08-30 05:46] LABS: Basophils % (Auto) 0 % (0-2.5); Eosinophils # (Auto) 0.4 Thou/mm3 (0.0-0.5); Eosinophils % (Auto) 5 % (0-10); Hematocrit 25.4 % (41.0-53.0); Immature Granulocytes % (Auto) 1 % (0-0); Immature Granulocytes Auto 0.04 Thou/mm3 (0.00-0.00); Lymphocytes # (Auto) 0.8 Thou/mm3 (1.0-4.8); Lymphocytes % (Auto) 11 % (10-50); Mean Corpuscular HGB Conc 31.1 g/dl (31.0-37.0); Mean Corpuscular Hemoglobin 28.6 pg (25.0-35.0); Mean Corpuscular Volume 92 fL (80-100); Monocytes # (Auto) 0.8 Thou/mm3 (0.0-0.8); Monocytes % (Auto) 10 % (0-12); Neutrophils # (Auto) 5.8 Thou/mm3 (1.8-7.7); Neutrophils % (Auto) 74 % (37-80); Nucleated Red Blood Cell % 0 /100 WBC (0); Platelet Count 144 Thou/mm3 (140-440); RDW Standard Deviation 49.8 fL (35.1-43.9); Red Blood Count 2.76 Miln/mm3 (4.50-5.90); White Blood Count 7.8 Thou/mm3 (3.8-10.6)
[2024-08-30 06:01] LABS: Alanine Aminotransferase 11 U/L (10-49); Albumin, Serum 3.1 gm/dL (3.5-5.0); Albumin/Globulin Ratio 1.3 (1.2-2.2); Alkaline Phosphatase 78 U/L (46-116); Anion Gap 6 (7-16); Aspartate Amino Transferase 21 U/L (0-34); BUN/Creatinine Ratio 31 Ratio (12-20); Bilirubin,Total 0.3 mg/dL (0.3-1.2); Blood Urea Nitrogen 25 mg/dL (9-23); Calcium 8.4 mg/dL (8.3-10.6); Calcium (Corrected) 9.1 mg/dL (8.5-10.1); Carbon Dioxide 33.8 mMol/L (20.0-31.0); Chloride 107 mMol/L (98-107); Creatinine (Component) 0.8 mg/dL (0.6-1.3); Estimated Creatinine Clearance 142.4 mL/min (>60); Globulin 2.4 gm/dL (2.3-3.5); Glucose 123 mg/dL (74-106); Magnesium 1.9 mg/dL (1.6-2.6); Osmolality,Calculated 297 (275-295); Phosphorous 3.4 mg/dL (2.4-5.1); Potassium 3.8 mMol/L (3.4-5.1); Sodium 147 mMol/L (136-145); Total Protein 5.5 gm/dL (5.7-8.2); eGFR > 60 See Note
[2024-08-30 06:02] LABS: Hemoglobin 7.9 g/dL (13.5-16.0)
[2024-08-30 08:42] LABS: Sodium 147 mMol/L (136-145)
[2024-08-30] MEDS: guaiFENesin/P-EPHED TABLET 1 TAB PO (09:20)
[2024-08-30] MEDS: amLODIPine BESYLATE 5 MG TABLET 10 MG PO (09:20)
[2024-08-30] MEDS: carVEDILOL 3.125 MG TABLET 6.25 MG PO ×2 (09:22→17:48)
[2024-08-30] MEDS: PANTOPRAZOLE INJ 40 MG VIAL IVP (09:22)
[2024-08-30] MEDS: INSULIN GLARGINE (Lantus) 5 UNIT/0.05 ML (PER 5 UNITS) 15 UNIT SC (09:23)
[2024-08-30] MEDS: BUMETANIDE INJ 0.25 MG/ML VIAL 4 ML 2 MG IVP (09:23)
[2024-08-30] MEDS: CADEXOMER IODINE GEL 40 GM TUBE TOP (09:24)
--- NOTE | 2024-08-30 13:52 | PC.SS ---
SS spoke to [employer] and they wanted updated notes. They are reviewing and will provide auth today. Pending auth then d/c back to facility
--- NOTE | 2024-08-30 14:30 | ESDS_ITS ---
<Statement entered by Jaqueiln Sparrow MD - 08/30/24 15:42> I discussed with and supervised the web development intern physician who took care of this patient. I personally saw and examined the patient and discussed the assessment and plan with the entire medicine team, including my attending , I agree with most of the assessment and plan as documented below Jaquelin Sparrow M.D. PGY-2 Planned Discharge Date 08/30/24 DS: Providers Provider Date of admission: 08/22/24 14:27 Primary care physician: Darrion Kevin MD Admitting Provider: Sabino Whitfield MD Attending Provider on Admission: Yudith Norwood MD Consults: 08/23/24 12:27 Consult to Gastroenterology Routine Comment: Consulting Provider: Jono Wakefield 08/23/24 12:30 Referral Registered Dietitian Routine Comment: Wounds Referral Wound Care Routine Comment: Wounds 08/24/24 10:39 Referral Speech Therapy Routine Comment: 08/25/24 16:36 Referral Physical Therapy Routine Comment: Physician Instructions: 08/25/24 16:39 Referral Physical Therapy Routine Comment: Physician Instructions: 08/26/24 19:30 Referral Wound Care Routine Comment: new wound noted to right thrumb under iv placement 08/28/24 09:15 Referral Physical Therapy Urgent Comment: Physician Instructions: Attending Provider on DC: Yudith Norwood MD Discharging Provider: Enrique Justice MD DS: Diagnosis Problem List Completed Was Problem List Reviewed/Reconciled?: Yes Hospital Course Hospital Course Hospital course: 54-year-old male with past medical history significant for insulin-dependent diabetes, CAD status post stents, HFpEF, CVA, coronary artery stenosis status post bilateral endarterectomy, PE x 2 on Eliquis, hypertension, chronic CO2 due to CAROLYN and OHS who presented to the ED for severe shortness of breath and dizziness, admitted 08/22/24. Patient was found to have low hemoglobin of 4.3, received PRBC transfusions. Night of admission patient went into PEA, CODE BLUE was called, ROSC was obtained after CPR and 2 rounds of epinephrine. Patient upgraded to ICU and intubated. Patient was eventually extubated 08/24/24, downgraded to floors. Patient received EGD which did not show acute bleed, recommendation for outpatient capsule endoscopy. Patient complained of significant pleuritic chest pain likely due to CPR with limited breathing. Patient treated with lidocaine patch and IV analgesics, which were weaned down. Patient cleared by GI for discharge. Patient medically stable and cleared for discharge. Discharge plan: You have been started on the following medications: -Lidocaine topical patches 1/day as needed for chest pain The following medications have been stopped: -Amlodipine 10 daily and Lasix 80 daily Lorazepam has been held, follow-up with PCP to resume Please comply with low sodium diet and limit fluid intake to 1200mL daily. Please continue taking all previous medications as previously prescribed Follow-up with your PCP in 1-2 weeks Please return to the ED if you develop new or worsening symptoms. Diagnoses: #Acute on chronic hypoxic respiratory failure, resolved #CAROLYN and OHS #S/P extubation #Right upper lobe pneumonia #HFpEF 55 to 60% #Cardiac arrest status post ROSC #Deconditioning. #Acute blood loss anemia-stable #GI bleed #Cirrhosis stable #Hypertension #Hypernatremia, resolving #Diabetes #Stage III pressure ulcer #Acute kidney injury, resolved Plan of care discussed with senior resident Dr. Sparrow PGY?[address] Norwood. Enrique Molina MD PGY?3 Time Spent with Patient Time attestation: Total time spent providing and/or coordinating discharge services: Exam Vital Signs Temp Pulse Resp BP Pulse Ox O2 Del Method O2 Flow Rate 97.3 F 77 19 156/72 H 94 L Nasal Cannula 4 08/30/24 08:00 08/30/24 09:23 08/30/24 08:43 08/30/24 09:23 08/30/24 08:43 08/30/24 08:00 08/30/24 08:43 FiO2 40 08/30/24 05:15 Narrative Exam PE: Gen: Well-developed and well-nourished. Obese. HEENT: NCAT, PERRLA, EOMI, MMM, anicteric conjunctivae. CVS: normal S1 and S2. RRR. No M/R/G. Tenderness to palpation. Resp: Diminished lung sounds throughout. No rales, rhonchi, crackles. Abd: soft, non-tender, non-distended. MSK: Good ROM in BUE & BLE. No rash. 2+ pitting edema BLE. Neuro: CN II-XII grossly intact. Strength 5/5 in BUE & BLE. Alert and oriented x3. Psych: appropriate mood and affect. Discharge Plan Plan Patient Disposition: Xfer Skilled Nsg Fac (SNF) Disposition Comment: [facility] Patient condition on transfer: Stable Care Plan Goals: You have been started on the following medications: -Lidocaine topical patches 1/day as needed for chest pain The following medications have been stopped: -Amlodipine 10 daily and Lasix 80 daily Lorazepam has been held, follow-up with PCP to resume Please comply with low sodium diet and limit fluid intake to 1200mL daily. Please continue taking all previous medications as previously prescribed Follow-up with your PCP in 1-2 weeks Please return to the ED if you develop new or worsening symptoms. Prescriptions/Referrals Prescriptions/Med Rec: New lidocaine 4 % adhesive patch,medicated 1 patch topical UD PRN (Reason: LOCALIZED PAIN) 15 Days Qty: 0 0RF Continued hydrocodone-acetaminophen 10-325 mg tablet 1 tab PO Q4H PRN (Reason: pain, mild) Rx Instructions: pain 1-3 pregabalin 150 mg capsule 150 mg PO TID sennosides [senna] 8.6 mg tablet 8.6 mg PO BID PRN (Reason: constipation) Qty: 30 0RF nifedipine 30 mg tablet extended release 30 mg PO QDAY 30 Days Qty: 30 0RF docusate sodium 100 mg capsule 100 mg PO QDAY loperamide [Anti-Diarrheal (loperamide)] 2 mg capsule 2 mg PO Q6H PRN (Reason: loose stool) metolazone 5 mg tablet 5 mg PO DAILY morphine 15 mg tablet extended release 15 mg PO Q12H PRN (Reason: Pain, Severe) metoclopramide HCl 5 mg tablet 5 mg PO Q6H 30 Days Qty: 120 3RF atorvastatin 80 mg Tablet 80 mg PO QPM ascorbic acid (vitamin C) [Vitamin C] 500 mg Tablet 500 mg PO BID apixaban 5 mg Tablet 5 mg PO BID insulin detemir U-100 100 unit/mL (3 mL) Insulin Pen 30 unit SUBCUT BID Qty: 15 0RF insulin lispro [Humalog KwikPen Insulin] 100 unit/mL insulin pen See Protocol SUBCUT AC Protocol: Insulin Corrective High-Dose Regimen Condition: Fingerstick Blood Glucose Dose/Route: Insulin Units Condition: 141-180 mg/dl Dose/Route: 6 units/SQ Condition: 181-220 mg/dl Dose/Route: 8 units/SQ Condition: 221-260 mg/dl Dose/Route: 10 units/SQ Condition: 261-300 mg/dl Dose/Route: 12 units/SQ Condition: 301-350 mg/dl Dose/Route: 14 units/SQ Condition: 351-400 mg/dl Dose/Route: 16 units/SQ Condition: greater than 400 mg/dl Dose/Route: 18 units/SQ Zepbound 2.5 mg/0.5 mL pen injector 2.5 mg subcut QWEEK Qty: 2 2RF Rx Instructions: Please double the dose every 2 weeks as tolerated until maximum dose of 10mg/Week. bumetanide 2 mg tablet 2 mg PO BID 30 Days Qty: 60 0RF hydralazine 100 mg tablet 100 mg PO TID 30 Days Qty: 90 0RF Januvia 100 mg tablet 100 mg PO DAILY bisacodyl [Dulcolax (bisacodyl)] 10 mg suppository 10 mg NM QDAY PRN (Reason: constipation) Rx Instructions: If mom not effective ergocalciferol (vitamin D2) 1,250 mcg (50,000 unit) capsule 50,000 unit PO QWEEK aspirin [Ecotrin Low Strength] 81 mg tablet,delayed release (DR/EC) 81 mg PO QDAY oxybutynin chloride 5 mg tablet 5 mg PO BID clopidogrel [Plavix] 75 mg tablet 75 mg PO QDAY meclizine 25 mg tablet 25 mg PO DAILY PRN (Reason: nausea and vomiting) cyclobenzaprine 10 mg tablet 10 mg PO Q12H PRN (Reason: muscle spasm) carvedilol 6.25 mg tablet 6.25 mg PO BID Rx Instructions: hold for SBP <110 or HR <60 ipratropium-albuterol 0.5 mg-3 mg(2.5 mg base)/3 mL solution for nebulization 3 ml INHALATION BID PRN (Reason: shortness of breath) ProAir RespiClick 90 mcg/actuation aerosol powdr breath activated 2 inh INHALATION Q4H PRN (Reason: shortness of breath or wheezing) naloxone [Narcan] 4 mg/actuation spray,non-aerosol 1 spray intranasal Q3M Qty: 2 0RF Rx Instructions: spray 1 dose into ONE nostril; alternate nostrils w each dose until help arrives Held lorazepam 2 mg tablet 2 mg PO HS Hold Instructions: f/u pcp Discontinued furosemide 80 mg tablet 80 mg PO DAILY amlodipine 10 mg tablet 10 mg PO DAILY losartan 50 mg tablet 100 mg PO QDAY No Action [place]app[place] 0.8 mg Tablet 1 tab PO QDAY magnesium hydroxide [Milk of Magnesia] 400 mg/5 mL suspension 30 ml PO Q72H PRN (Reason: constipation) Rx Instructions: if no BM for 3 days Referrals: Darrion Kevin MD [Primary Care Provider] - Patient/Caregiver Discharge Instructions Meds to Beds: No Discharge Activity: as per physical therapy Education Materials: Diabetes: Caring for Your Body, Hypertension Dc, A Sample Walking Program, Diabetes and High Blood Pressure Print Language: Mongolian Stand Alone Forms: [facility] Award Info., Patient Portal Info Letter Discharge Order Discharge Orders: Discharge (Routine); Ordered 08/30/24 Ordered By: Enrique Justice Quality Discharge Quality Measures VTE prophylaxis Attestestation MD Attestation I attest that I was physically present for the evaluation, physical examination, lab and imaging review of the patient with the residents. I discussed the case with the residents and agree with the findings and plans of care as documented above. Patient is a 54 years old male with past medical history of diabetes mellitus, CAD status post stents, HFpEF, CVA, coronary artery stenosis status post bilateral endarterectomy, PE on Eliquis, hypertension, CAROLYN and OHS who presented to the ED with complaint of shortness of breath and dizziness. Patient was found to have hemoglobin of 4.3 and received blood transfusions. Hospital course was complicated is patient underwent CPR following a PEA. He was intubated and managed in ICU. Patient underwent EGD, which did not show acute bleeding. After improvement, patient was extubated and transferred to medical floor. At bedside today, patient appears comfortable, he continues to complain of chest pain on deep breath and movement, likely secondary to chest compressions and rib fractures, but he states that pain is manageable with analgesics. Lab results and vital signs have been stable. Continues to be on 2 L nasal cannula and BiPAP/CPAP at night. Patient is recommended to have outpatient capsule endoscopy by GI. Patient deemed stable for discharge on his home medications. Discussed with GI regarding Eliquis and antiplatelets, recommended to continue on discharge. Patient advised to follow-up with PCP in 1 to 2 weeks of discharge, he will need to discuss about referral for capsule endoscopy. Yudith Norwood MD
--- NOTE | 2024-08-30 16:10 | PC.SS ---
Ambulance transport scheduled for 06:00 pm this evening.? [facility] to provide transport.? Bedside nurse, SNF and patient?s daughter notified of transport time.?
--- NOTE | 2024-08-30 17:27 | PC.NURSE ---
Telephone report given to SHAWNA Jones at [facility]. Ambulance transportation ETA 1800.
[2024-08-30] MEDS: INSULIN LISPRO (AdmeLOG) 1 UNIT/0.01 ML UNIT SC (17:47)
--- NOTE | 2024-08-30 23:56 | PD.IMPROG ---
Documentation for date of: 08/30/24 Subjective Subjective Interval history: Late entry for the note Hemoglobin hematocrit 7.9 and 25.4 Case discussed with internal medicine team Exam Vital Signs Temp Pulse Resp BP Pulse Ox O2 Del Method O2 Flow Rate 97.0 F 77 17 145/77 H 93 L Nasal Cannula 2 08/30/24 16:00 08/30/24 17:48 08/30/24 16:00 08/30/24 17:48 08/30/24 16:00 08/30/24 16:00 08/30/24 16:00 FiO2 40 08/30/24 05:15 Objective Labs 08/30/24 05:05 08/30/24 07:52 Labs: Laboratory Results - last 24 hr 08/23/24 08/30/24 08/30/24 02:44 00:38 05:05 WBC 8.7 7.8 RBC 2.79 L 2.76 L Hgb 7.9 L 7.9 L Hct 25.5 L 25.4 L MCV 91 92 MCH 28.3 28.6 MCHC 31.0 31.1 RDW Std Deviation 50.5 H 49.8 H Plt Count 148 144 Neut % (Auto) 72 74 Lymph % (Auto) 11 11 [place] % (Auto) 12 10 Eos % (Auto) 5 5 Baso % (Auto) 0 0 Neut # (Auto) 6.2 5.8 Lymph # (Auto) 0.9 L 0.8 L [place] # (Auto) 1.1 H 0.8 Eos # (Auto) 0.4 0.4 Baso # (Auto) 0.0 0.0 Immature Gran # (Auto) 0.03 H 0.04 H Absolute Nucleated RBC 0.00 0.00 Immature Gran % 0 1 H Nucleated RBC % 0 0 Sodium 147 H Potassium 3.8 Chloride 107 Carbon Dioxide 33.8 H Anion Gap 6 L BUN 25 H Creatinine 0.8 Estim Creat Clear Calc 142.4 eGFR > 60 BUN/Creatinine Ratio 31 H Glucose 123 H Calculated Osmolality 297 H Calcium 8.4 Corrected Calcium 9.1 Phosphorus 3.4 Magnesium 1.9 Total Bilirubin 0.3 AST 21 ALT 11 Alkaline Phosphatase 78 Total Protein 5.5 L Albumin 3.1 L Globulin 2.4 Albumin/Globulin Ratio 1.3 Misc Test Result See Sep Rpt 08/30/24 07:52 WBC RBC Hgb Hct MCV MCH MCHC RDW Std Deviation Plt Count Neut % (Auto) Lymph % (Auto) [place] % (Auto) Eos % (Auto) Baso % (Auto) Neut # (Auto) Lymph # (Auto) [place] # (Auto) Eos # (Auto) Baso # (Auto) Immature Gran # (Auto) Absolute Nucleated RBC Immature Gran % Nucleated RBC % Sodium 147 H Potassium Chloride Carbon Dioxide Anion Gap BUN Creatinine Estim Creat Clear Calc eGFR BUN/Creatinine Ratio Glucose Calculated Osmolality Calcium Corrected Calcium Phosphorus Magnesium Total Bilirubin AST ALT Alkaline Phosphatase Total Protein Albumin Globulin Albumin/Globulin Ratio Misc Test Result Impressions Impression: Gastric motility disorder Anemia blood loss Outpatient capsule endoscopy to be referred by the primary care physician to a tertiary center ABG Interpretation ABG results: 08/22/24 08/23/24 08/25/24 08:37 03:41 04:26 ABG pH 7.36 7.22 L D 7.40 D ABG pCO2 55 H 70 H D 54 H D ABG pO2 70 L 252 H D 105 D ABG HCO3 31 H 28 H 34 H ABG O2 Saturation 94 101 H 99 H ABG Base Excess 5 H 1 8 H Assessment & Plan A&P Narrative # Acute anemia blood loss Agree with the blood transfusion Initial test would be fiberoptic esophagogastroduodenoscopy with possible therapeutic intervention under intravenous moderate sedation if that is negative with a history of hematochezia we will consider doing a fiberoptic colonoscopy after GoLytely prep Other medical problems include # Acute respiratory failure requiring endotracheal intubation # CVA requiring bilateral carotid enterectomy # Vertebral hemangioma requiring radiation therapy # coronary artery disease status post PTCA # pulmonary embolism on Eliquis # Congestive heart failure # primary pulmonary hypertension # Diabetes mellitus type 2 # obesity syndrome Thank you very much for the opportunity to participate in the care of this patient Time Spent With Patient Time: Total time spent is greater than 50% in coordination of care (as documented) at patient's floor/unit and/or counseling patient:
== END 2024-08-30 19:30 | disposition skilled nursing facility (03) | DRG 133 ==
LOC: SERX 13:49 → SERHOLD 14:38 → S3SX 17:25 → S3NX 18:33 → S2SX 08-23 03:04 → S2NX 08-26 23:24 → S2SX 08-29 08:25
PROVIDERS: Specialist; Student in an Organized Health Care Education/Training Program; Admitting Provider Student in an Organized Health Care Education/Training Program; Emergency Provider Emergency Medicine; PCP Family Medicine; Visit Provider Student in an Organized Health Care Education/Training Program
PROC: 0BH17EZ Insertion of Endotracheal Airway into Trachea, Via Natural or Artificial Opening (ICD-10-PCS; CPT 43239; principal; 2024-08-23 21:00)
DX: J96.21 Acute and chronic respiratory failure with hypoxia (principal); K29.71 Gastritis, unspecified, with bleeding; E11.9 Type 2 diabetes mellitus without complications; J96.22 Acute and chronic respiratory failure with hypercapnia; I46.8 Cardiac arrest due to other underlying condition; J18.9 Pneumonia, unspecified organism; I11.0 Hypertensive heart disease with heart failure; E78.00 Pure hypercholesterolemia, unspecified; D62 Acute posthemorrhagic anemia; I25.10 Atherosclerotic heart disease of native coronary artery without angina pectoris; E66.2 Morbid (severe) obesity with alveolar hypoventilation; G89.29 Other chronic pain; F17.290 Nicotine dependence, other tobacco product, uncomplicated; J44.0 Chronic obstructive pulmonary disease with (acute) lower respiratory infection; L89.153 Pressure ulcer of sacral region, stage 3; K74.60 Unspecified cirrhosis of liver; I50.32 Chronic diastolic (congestive) heart failure; N17.9 Acute kidney failure, unspecified; E87.0 Hyperosmolality and hypernatremia; K20.90 Esophagitis, unspecified without bleeding; K64.9 Unspecified hemorrhoids; Z86.73 Personal history of transient ischemic attack (TIA), and cerebral infarction without residual deficits; G93.1 Anoxic brain damage, not elsewhere classified; Z91.199 Patient's noncompliance with other medical treatment and regimen due to unspecified reason; Z79.891 Long term (current) use of opiate analgesic; Z79.4 Long term (current) use of insulin; Z88.8 Allergy status to other drugs, medicaments and biological substances; Z95.5 Presence of coronary angioplasty implant and graft; Z79.01 Long term (current) use of anticoagulants; E87.1 Hypo-osmolality and hyponatremia; Z86.711 Personal history of pulmonary embolism; E87.4 Mixed disorder of acid-base balance; D18.09 Hemangioma of other sites; Z79.899 Other long term (current) drug therapy; Z79.82 Long term (current) use of aspirin; Z79.02 Long term (current) use of antithrombotics/antiplatelets; Z68.42 Body mass index [BMI] 45.0-49.9, adult; Z92.3 Personal history of irradiation; Z22.322 Carrier or suspected carrier of Methicillin resistant Staphylococcus aureus; T88.6XXA Anaphylactic reaction due to adverse effect of correct drug or medicament properly administered, initial encounter; T42.4X5A Adverse effect of benzodiazepines, initial encounter; Z99.81 Dependence on supplemental oxygen; M54.9 Dorsalgia, unspecified
CPT/HCPCS: 36415; 36430; 36600; 70450; 71045; 71275; 80053; 80069; 80307; 81001; 82803; 83036; 83605; 83735; 83880; 84100; 84145; 84295; 84443; 84484; 85014; 85018; 85025; 85379; 85610; 85652; 85730; 86140; 86850; 86900; 86901; 86923; 87040; 87077; 87081; 87186; 87205; 87400; 87634; 87811; 92526; 92610; 92950; 93005; 93225; 93306; 94002; 94003; 94640; 94660; 94664; 96374; 96375; 97162; 99285; A4649; A9270; J0171; J0696; J1815; J2060; J2270; J2354; J2470; J2704; J2919; J3010; J3490; J7050; J7060; P9016; Q9967

== ENCOUNTER → 2024-08-31 | Outpatient (BNVA) | payer MEDICAID, SELFPAY | END | disposition home or self-care (01) | PROVIDERS: PCP Family Medicine; Referring Provider Family Medicine; Visit Provider Urology | DX: N48.9 Disorder of penis, unspecified (principal); E11.9 Type 2 diabetes mellitus without complications; K70.30 Alcoholic cirrhosis of liver without ascites; I11.0 Hypertensive heart disease with heart failure; I50.9 Heart failure, unspecified; E66.01 Morbid (severe) obesity due to excess calories; Z68.38 Body mass index [BMI] 38.0-38.9, adult; M51.369 Other intervertebral disc degeneration, lumbar region without mention of lumbar back pain or lower extremity pain; M62.81 Muscle weakness (generalized); F17.210 Nicotine dependence, cigarettes, uncomplicated; Z86.73 Personal history of transient ischemic attack (TIA), and cerebral infarction without residual deficits; I25.2 Old myocardial infarction; E78.00 Pure hypercholesterolemia, unspecified; Z86.718 Personal history of other venous thrombosis and embolism; J44.9 Chronic obstructive pulmonary disease, unspecified; I25.10 Atherosclerotic heart disease of native coronary artery without angina pectoris; Z86.711 Personal history of pulmonary embolism; G47.30 Sleep apnea, unspecified | CPT/HCPCS: 99202; G0463 ==